=== PATIENT | female | born 1945 | race Caucasian/White ===

== ENCOUNTER 2017-06-01 14:30 | Inpatient (IN) | payer MEDICARE, SELFPAY ==
[2017-06-01] VITALS (13 sets, daily range): BP systolic 104–160; BP diastolic 43–88; PULSE 81–105; RESP 20–30; TEMP 37.6; O2SAT 92–96; BMI 53.1; BMI 53.3
--- NOTE | 2017-06-01 15:00 | RAD_ITS ---
STUDY: X-RAY CHEST REASON FOR EXAM: Female, 71 years old. Shortness of breath and cough TECHNIQUE: Single AP portable view of the chest. COMPARISON: None. FINDINGS: EKG leads overlie the chest. There are interstitial fibrotic changes of the lungs. There is no demonstrated pleural abnormality. Normal size heart. Normal mediastinum and tanna. Normal visualized pulmonary arteries. There is atherosclerotic calcification of the aortic arch with tortuosity. There are diffuse degenerative changes of the visualized thoracic spine. Normal visualized ribs, clavicles, and shoulders. There is no demonstrated abnormality of the visualized soft tissue structures of the upper abdomen. RAD/Chest 1 View (Portable) IMPRESSION: Degenerative changes, as described above. No demonstrated acute cardiopulmonary process. Electronically Signed: Yong Ordonez MD at 15:25 EST , Service support ,
--- NOTE | 2017-06-01 15:01 | EKG12_ITS ---
Test Reason : SOB Blood Pressure : / mmHG Vent. Rate : 096 BPM Atrial Rate : 100 BPM P-R Int : 158 ms QRS Dur : 070 ms QT Int : 342 ms P-R-T Axes : 078 000 087 degrees QTc Int : 432 ms Normal sinus rhythm with sinus arrhythmia Normal ECG Confirmed by JACLYN RIVERA, KATIE ([id number]), fan mail editor SAIRA WHITMORE ([id number]) on 06/08/2017 3:51:45 PM Referred By: Confirmed By:KATIE ANAYA MD
[2017-06-01] MEDS: Albuterol 2.5 MG/3 ML VIAL.NEB. INHALATION ×3 (15:08→17:15)
[2017-06-01] MEDS: Ipratropium/Albuterol Sulfate 3 ML AMPUL.NEB INHALATION ×2 (15:09→23:54)
--- NOTE | 2017-06-01 15:11 | ED.RN ---
PT PLACED ON DROPLET PRECAUTIONS UNTIL RESULTS OF FLU SWAB
[2017-06-01] MEDS: Acetaminophen 325 MG Tablet 650 MG PO ×2 (15:26→23:48)
[2017-06-01] MEDS: 0.9% Normal Saline 1,000 ML 150 ML IV (15:27)
[2017-06-01] MEDS: MethylPREDNISolone 125 MG/2 ML Vial IV (15:27)
[2017-06-01 15:35] LABS: Absolute Lymphocyte Count 1.57 X10^3/ul (0.83-4.51); Absolute Neutrophil Count 7.2 X10^3/uL (2.0-7.7); Basophil# 0.02 X10^3/uL; Basophil% 0.2 % (0-1); Eosinophil# 0.03 X10^3/uL; Eosinophils% 0.3 % (0-5); Hematocrit 40.7 % (37-47); Hemoglobin 13.2 g/dl (12.0-15.0); Lymphocyte # 1.57 X10^3/ul (4.0); Mean Corp Hgb Conc 32.4 g/gl (32-36); Mean Corpuscular Volume 89.5 fL (81-99); Mean Platelet Vol. 10.2 fl (6.2-12.0); Monocyte% 10.2 % (0-10); Neutrophil # 7.15 X10^3/uL (2.7-7.7); Neutrophil % 73.1 % (47-70); Platelet Count 147 K/mm3 (150-450); RBC Distribution Width CV 13.8 % (11.6-14.6); RBC Distribution Width SD 45.2 fl (35.1-43.9); Red Blood Count 4.55 M/mm3 (4.2-5.4); White Blood Count 9.8 K/mm3 (4.4-11.0)
[2017-06-01 15:45] LABS: POSITIVE COUNT NO; POSITIVE DIFFERENTIAL NO; POSITIVE MORPHOLOGY NO
[2017-06-01 15:49] LABS: Anion Gap 6 (5-15); BUN 11 mg/dL (7-18); BUN/Creat Ratio 15.6 RATIO (10-20); Calcium,Total 8.9 mg/dL (8.5-10.1); Chloride 102 mmol/L (98-107); EST Glomerular Filtration Rate 87 mL/min (>60); Est Glom Filt Rate - Afr Amer 105 mL/min (>60); Glucose 152 mg/dL (70-110); Potassium 3.9 mmol/L (3.5-5.1); Sodium Level 136 mmol/L (136-145)
--- NOTE | 2017-06-01 15:55 | ED.RN ---
POSITIVE FOR INFLUENZA A PER LAB. NOTIFIED.
[2017-06-01] MEDS: Oseltamivir Phosphate 75 MG Capsule PO (16:28)
--- NOTE | 2017-06-01 17:28 | ED.DCSUM_ITS ---
- ER Visit Summary Date of Service: 06/01/17 Chief Complaint: Shortness of breath, body aches, cough History of Present Illness: The patient is a 71 F reports onset of the above symptoms yesterday. She reports subjective fever. States she has not bothered to get out of bed to check her temperature. Patient does have a history of asthma and feels that her breathing is worse. Physical Examination: Blood pressure is 136/88, temperature 99.6, heart rate 101 , respiratory rate 26, pulse ox 92% on 2 L nasal cannula. Patient sitting upright in bed, appears ill. Head and neck examination is grossly unremarkable. Heart is tachycardic and regular. Lung sounds with tight wheezing throughout. Abdomen is soft and nontender. Lower extent examination was 2+ bilateral edema that is symmetric. She has strong distal pulses. Patient is alert and able to speak in short sentences. Test Results: EKG is sinus at 96 with no sign of acute ischemia. Portable chest x-ray reveals degenerative changes but no acute pulmonary process. CBC reveals normal white count. Chemistry studies are unremarkable. Lactate is normal. Blood cultures were drawn. Influenza returns positive for influenza A. Emergency Department Course and Treatment: She was given Solu-Medrol, aerosols, and Tylenol. Upon completion of the flu swab she was given a dose of Tamiflu. On repeat examination she has improved air movement throughout, but still has significant wheezing. Additional aerosol is ordered and hospitalist is paged for admission. Treatment Plan: [] Disposition: Admit Impression: 1. Influenza A 2. Asthma exacerbation This note was generated with [employer] dictation software. It may contain incorrect words, spelling, and punctuation that were not noted in review of the chart prior to signing ED Disposition - Plan for ED Patient: Chief Complaint: Shortness of Breath Referrals: Senait Jay MD [Primary Care Provider] -
--- NOTE | 2017-06-01 18:57 | PCM.HP.STD ---
Problem List (1) Influenza Status: Acute (2) Acute asthma exacerbation Status: Acute (3) Celiac disease Status: Chronic (4) Asthma Status: Chronic Qualifiers: Asthma complication type: uncomplicated (5) Cellulitis of right breast Status: Acute (6) BMI 50.0-59.9, adult Status: Chronic (7) History of right breast cancer Status: Chronic (8) Sleep apnea Status: Acute History of Present Illness Date of Admission: 06/01/17 Chief Complaint: shortness of breath. The patient is a 71 year old F presents with shortness of breath and chills for 1 day. Began late [place] early morning. Patient was just chilling. Presented to the emergency room with tachypnea. Patient was put on breathing treatments. She received Solu-Medrol, aerosols. Patient tested positive for flu Wednesday and received Tamiflu. Patient is feeling somewhat better at this time. [] Past Medical History Past Medical History (Chronic Problems): Chronic Problems Celiac disease (Chronic) Asthma (Chronic) BMI 50.0-59.9, adult (Chronic) History of right breast cancer (Chronic) Allergies adhesive tape Allergy (Verified 06/01/17 16:48) Unknown listed on pcp allergy list mesalamine [From Asacol] Allergy (Verified 06/01/17 16:48) Unknown listed on pcp allergy list omalizumab [From Xolair] Allergy (Verified 06/01/17 16:48) Unknown listed on pcp allergy list Sulfa (Sulfonamide Antibiotics) Allergy (Verified 11/14/16 11:33) Unknown duracef Allergy (Uncoded 06/01/17 16:48) Unknown listed on pcp allergy list Home Medications: Ambulatory Orders Medication Instructions Recorded Budesonide [Rhinocort Allergy] 2 spray NS DAILY 06/01/17 Calcium (Elemental) [Os-Lance 500] 500 mg PO DAILY@0800 06/01/17 Cholecalciferol (Vitamin D3) 50,000 unit PO SUWE 06/01/17 [Vitamin D] Dicyclomine HCl [Bentyl] 10 mg PO BID PRN PRN 06/01/17 Insulin Regular, Human [Humulin R 85 unit SQ BID 06/01/17 U-500 Kwikpen] Lansoprazole [Prevacid] 30 mg PO BID 06/01/17 Levocetirizine Dihydrochloride 5 mg PO DAILY 06/01/17 [Xyzal] Methylphenidate HCl 20 mg PO BID 06/01/17 [Methylphenidate ER] Mometasone/Formoterol [Dulera 200 2 puff INHALATION BID 06/01/17 Mcg/5 Mcg Inhaler] Montelukast [Singulair] 10 mg PO DAILY 06/01/17 Multivit-Min/Iron/Folic/Lutein 1 each PO DAILY 06/01/17 [Centrum Silver Women Tablet] Nadolol 1 tab PO BID 06/01/17 Nystatin Powder [Mycostatin Powder] 1 applic TOPICAL 4X/DAY PRN 06/01/17 Ondansetron [Zofran Odt] 4 mg PO Q6H PRN PRN 06/01/17 Paroxetine HCl [Paxil] 40 mg PO DAILY 06/01/17 Pramipexole Di-HCl [Mirapex] 0.5 mg PO QHS 06/01/17 Surgical History: - - Rectocele Smoking Status: Never smoker - *Family History Paternal History Items: No pertinent history, - - No heart disease Review of Systems Constitutional: Reports: Chills. Denies: Fever Eyes: Denies: Blurred vision, Double vision HEENT: Denies: Head Aches, Sinus Congestion, Sinus Drainage Cardiovascular: Denies: Chest Pain, Palpitations Respiratory: Denies: Cough, Shortness of breath at rest, Sputum production Gastrointestinal: Denies: Abdominal Pain, Nausea, Vomiting Genitourinary: Denies: Dysuria Musculoskeletal: Denies: Joint Pain, Joint Tenderness Skin: Denies: Rash, Wounds Neurological: Denies: Numbness, Tingling, Focal weakness Psychiatric: Denies: Anxiety, Depression, Homicidal Ideations, Suicidal Ideations Hematologic/ Lymphatic: Denies: Easy Bruising, Easy Bleeding VTE Information - Inpt Only VTE Present on Admission: No VTE Pharm Prophylaxis ordered?: Yes Patient Problems: Active and Suspected Problems Influenza (Acute) Acute asthma exacerbation (Acute) - Physical Exam General: Alert, Cooperative, No apparent distress HEENT: Atraumatic, Normocephalic Neck: No Nodes, Thyroid Normal Size and Texture Lungs: Clear to auscultation, No rhonchi, No wheeze, Diminished Cardiovascular: Regular rate, Regular Rhythm, Normal S1, Normal S2, No murmurs Abdomen: Bowel Sounds Present, Soft, Non Tender, Non-Distended, No Hepato-splenomegaly Extremities: No edema, No Calf Tenderness Skin: No rashes, No breakdown Psych/Mental Status: Normal Affect, Appropriate Vital Signs Temp Pulse Resp BP Pulse Ox 37.6 C H 83 22 H 110/79 94 06/01/17 16:30 06/01/17 18:12 06/01/17 18:12 06/01/17 18:12 06/01/17 18:12 Oxygen Flow Rate 2 Oxygen Delivery Method Nasal Cannula Weight: 136.078 kg Body Mass Index (BMI) 53.1 Microbiology Past 72 Hours 06/01/17 15:10 Influenza Types A,B Direct FA (RODRIGO) - Final Mucosa - Nose Influenzae A Laboratory Tests Past 24 Hrs 06/01/17 06/01/17 06/01/17 14:45 14:45 14:45 WBC 9.8 RBC 4.55 Hgb 13.2 Hct 40.7 MCV 89.5 MCH 29.0 MCHC 32.4 RDW 13.8 RDW Differential 45.2 H Plt Count 147 L MPV 10.2 Immature Gran % (Auto) 0.200 Neut % (Auto) 73.1 H Lymph % (Auto) 16.0 L [place] % (Auto) 10.2 H Eos % (Auto) 0.3 Baso % (Auto) 0.2 Absolute Neuts (auto) 7.2 Absolute Lymphs (auto) 1.57 Total Counted Not Reportable Sodium 136 Potassium 3.9 Chloride 102 Carbon Dioxide 28.0 Anion Gap 6 BUN 11 Creatinine 0.70 Estim Creat Clear Calc 43.30 Est GFR (MDRD) Af Amer 105 Est GFR (MDRD) Non-Af 87 BUN/Creatinine Ratio 15.6 Glucose 152 H Lactic Acid 1.0 Calcium 8.9 Assessment/Plan Active and Suspected Problems Influenza (Acute) Acute asthma exacerbation (Acute) 1. Influenza A Tamiflu. Continue Tamiflu for 5 days. Supportive management 2. Acute asthma exacerbation Site measured on the emergency room. I will have the patient on prednisone. Bronchodilators 3. DVT prophylaxis with Lovenox This note was generated with [email or web address] dictation software. It may contain incorrect words, spelling, and punctuation that were not noted in checking the note before signing. Code Visit Inpatient E&M: 99829 Init Hosp L2
[2017-06-01 22:54] LABS: Bedside Glucose 365 mg/dL (70-110)
[2017-06-01] MEDS: Methylphenidate HCl 5 MG Tablet 20 MG PO (23:40)
[2017-06-01] MEDS: Oseltamivir Phosphate 30 MG Capsule PO (23:44)
[2017-06-01] MEDS: Pantoprazole Sodium 40 MG Tablet PO (23:45)
[2017-06-01] MEDS: Pramipexole Di-HCl 0.5 MG Tablet PO (23:45)
[2017-06-02] VITALS (10 sets, daily range): BP systolic 137–159; BP diastolic 57–77; PULSE 61–83; RESP 16–24; TEMP 36.4–36.7; O2SAT 93–99
[2017-06-02 01:46] LABS: Bedside Glucose 340 mg/dL (70-110)
[2017-06-02 06:14] LABS: Absolute Lymphocyte Count 0.99 X10^3/ul (0.83-4.51); Absolute Neutrophil Count 7.7 X10^3/uL (2.0-7.7); Basophil# 0.01 X10^3/uL; Basophil% 0.1 % (0-1); Hematocrit 38.2 % (37-47); Hemoglobin 12.8 g/dl (12.0-15.0); Lymphocyte # 0.99 X10^3/ul (4.0); Lymphocyte % 10.7 % (19-41); Mean Corp Hgb Conc 33.5 g/gl (32-36); Mean Corpuscular Hgb 29.8 pg (27.0-32.0); Mean Corpuscular Volume 88.8 fL (81-99); Mean Platelet Vol. 10.4 fl (6.2-12.0); Monocyte# 0.54 X10^3/uL; Monocyte% 5.8 % (0-10); Neutrophil % 83.3 % (47-70); Platelet Count 128 K/mm3 (150-450); RBC Distribution Width CV 13.7 % (11.6-14.6); RBC Distribution Width SD 43.9 fl (35.1-43.9); White Blood Count 9.3 K/mm3 (4.4-11.0)
[2017-06-02 06:22] LABS: POSITIVE COUNT NO; POSITIVE DIFFERENTIAL NO; POSITIVE MORPHOLOGY NO
[2017-06-02] MEDS: 0.9% Normal Saline 1,000 ML 50 ML IV (06:39)
[2017-06-02 06:43] LABS: Anion Gap 7 (5-15); BUN 16 mg/dL (7-18); BUN/Creat Ratio 24.4 RATIO (10-20); Calcium,Total 8.4 mg/dL (8.5-10.1); Chloride 102 mmol/L (98-107); Creatinine, Serum 0.66 mg/dL (0.55-1.02); EST Glomerular Filtration Rate 95 mL/min (>60); Est Glom Filt Rate - Afr Amer 114 mL/min (>60); Glucose 292 mg/dL (70-110); Potassium 4.1 mmol/L (3.5-5.1); Sodium Level 135 mmol/L (136-145)
[2017-06-02 07:01] LABS: Bedside Glucose 306 mg/dL (70-110)
[2017-06-02] MEDS: Ipratropium/Albuterol Sulfate 3 ML AMPUL.NEB INHALATION ×4 (07:03→23:11)
[2017-06-02] MEDS: Budesonide Respules 0.5 MG/2 ML AMPUL.NEB. INHALATION ×2 (07:04→19:56)
--- NOTE | 2017-06-02 08:22 | NURSING ---
Call to Dr. Jya's office and most up to date medication list requested.
[2017-06-02] MEDS: Glucerna Shake 120 ML LIQUID PO (09:26)
[2017-06-02] MEDS: Oseltamivir Phosphate 30 MG Capsule PO ×2 (09:27→21:50)
[2017-06-02] MEDS: Pantoprazole Sodium 40 MG Tablet PO ×2 (09:27→21:50)
[2017-06-02] MEDS: Methylphenidate HCl 5 MG Tablet 20 MG PO (09:27)
[2017-06-02] MEDS: Montelukast 10 MG Tablet PO (09:27)
[2017-06-02] MEDS: Loratadine 10 MG Tablet 5 MG PO (09:27)
[2017-06-02] MEDS: Enoxaparin 40 MG/0.4 ML Syringe SC (09:28)
[2017-06-02] MEDS: Multivitamins,Ther W-Minerals Tablet 1 TABLET PO (09:28)
[2017-06-02] MEDS: Calcium (Elemental) 500 MG Tablet PO (09:28)
[2017-06-02] MEDS: Nadolol 40 MG Tablet PO (11:30)
[2017-06-02 11:40] LABS: Bedside Glucose 288 mg/dL (70-110)
--- NOTE | 2017-06-02 14:18 | PCM.PN.HOSP ---
Patient Problems: Active and Suspected Problems Influenza (Acute) Acute asthma exacerbation (Acute) Subjective: Patient had symptoms of shortness of breath, fever and chills since late and got worse 06/01. Patient was also tachypneic and diagnosed influenza B. T-max was 99.6 Fahrenheit yesterday evening Vitals/I&O's: Vital Signs Temp Pulse Resp BP Pulse Ox 98.0 F 77 16 137/61 H 96 06/02/17 09:25 06/02/17 14:07 06/02/17 14:07 06/02/17 09:25 06/02/17 09:25 Oxygen Flow Rate 2.5 Oxygen Delivery Method Nasal Cannula Weight: 301 lb 3.199 oz Body Mass Index (BMI) 53.3 Intake and Output for Last 24 Hours 05/31/17 06/01/17 06/02/17 23:59 23:59 23:59 Intake Total 200 / 200 2891 / 2891 Output Total 400 / 400 650 / 650 Balance -200 / -200 2241 / 2241 General: Alert, Oriented x3, Cooperative HEENT: Atraumatic, PERRLA, EOMI, Normocephalic Oral: Dry Mucosa, - - Edema and inflammation noticed over deep soft palate and posterior pharyngeal wall Neck: Supple, No JVD, Negative Carotid Bruits Lungs: Clear to auscultation, No rhonchi, No wheeze, No rales, Diminished Cardiovascular: Regular rate, Regular Rhythm, Normal S1, No murmurs Abdomen: Bowel Sounds Present, Soft, Non Tender, Non-Distended Extremities: No edema, Capillary Refill Less than 3 Seconds Skin: No rashes, No breakdown Musculoskeletal: No Tenderness to Palpation of Joints or Extremities Neurological: Cranial nerves II-XII grossly intact Psych/Mental Status: Normal Affect, Appropriate Laboratory Results 06/01/17 21:13: POC Glucose 365 H 06/02/17 01:20: POC Glucose 340 H 06/02/17 05:26: WBC 9.3, RBC 4.30, Hgb 12.8, Hct 38.2, MCV 88.8, MCH 29.8, MCHC 33.5, RDW 13.7, RDW Differential 43.9, Plt Count 128 L, MPV 10.4, Immature Gran % (Auto) 0.100, Neut % (Auto) 83.3 H, Lymph % (Auto) 10.7 L, [place] % (Auto) 5.8, Eos % (Auto) 0.0, Baso % (Auto) 0.1, Absolute Neuts (auto) 7.7, Absolute Lymphs (auto) 0.99, Total Counted Not Reportable 06/02/17 05:26: Sodium 135 L, Potassium 4.1, Chloride 102, Carbon Dioxide 26.0, Anion Gap 7, BUN 16, Creatinine 0.66, Estim Creat Clear Calc 43.30, Est GFR (MDRD) Af Amer 114, Est GFR (MDRD) Non-Af 95, BUN/Creatinine Ratio 24.4 H, Glucose 292 H, Calcium 8.4 L 06/02/17 06:33: POC Glucose 306 H 06/02/17 11:28: POC Glucose 288 H Current Medications Acetaminophen (Tylenol) 650 mg PO Q6H PRN PRN PRN Reason: Mild Pain (scale 0-3)/T>100.7 Last Admin: 06/01/17 23:48 Dose: 650 mg Albuterol Sulfate (Ventolin Aerosols) 2.5 mg INHALATION Q2H PRN PRN PRN Reason: SHORTNESS OF BREATH Albuterol Sulfate (Ventolin Aerosols) 2.5 mg INHALATION Q6HWA.RT [facility] Albuterol/Ipratropium (Duoneb) 3 ml INHALATION Q4H.RT [facility] Last Admin: 06/02/17 14:06 Dose: 3 ml Budesonide (Pulmicort Aerosol) 0.5 mg INHALATION Q12H.RT [facility] Last Admin: 06/02/17 07:04 Dose: 0.5 mg Calcium Carbonate (Os-Lance 500) 500 mg PO DAILY@0800 [facility] Last Admin: 06/02/17 09:28 Dose: 500 mg Dicyclomine HCl (Bentyl) 10 mg PO BID PRN PRN PRN Reason: ABD CRAMPS Enoxaparin Sodium (Lovenox) 40 mg SC DAILY@1000 [facility] Last Admin: 06/02/17 09:28 Dose: 40 mg Ergocalciferol (Vitamin D) 50,000 unit PO SUWE [facility] Last Admin: 06/02/17 09:28 Dose: 50,000 unit Fluticasone Propionate (Flonase Nasal [place]) 2 spray NASAL DAILY [facility] Last Admin: 06/02/17 11:24 Dose: Not Given Sodium Chloride () 1,000 mls @ 50 mls/hr IV .Q20H [facility] Stop: 06/02/17 16:24 Last Admin: 06/02/17 06:39 Dose: 50 mls/hr Insulin Aspart (Novolog Flexpen ([facility])) 0 units SC ACHS [facility] PRN Reason: Protocol Last Admin: 06/02/17 11:30 Dose: 9 units Insulin Detemir (Levemir ([facility])) 10 units SC BID [facility] Last Admin: 06/02/17 11:30 Dose: 10 u Insulin Human Regular (Humulin R U-500 ([facility])) 0.17 ml SC BIDAC [facility] Loratadine (Claritin) 5 mg PO DAILY [facility] Last Admin: 06/02/17 09:27 Dose: 5 mg Magnesium Hydroxide (Milk Of Magnesia) 30 ml PO DAILY PRN PRN PRN Reason: Constipation Methylphenidate HCl (Ritalin (G)) 20 mg PO BID [facility] Last Admin: 06/02/17 09:27 Dose: 20 mg Montelukast Sodium (Singulair) 10 mg PO DAILY [facility] Last Admin: 06/02/17 09:27 Dose: 10 mg Multivitamins/Minerals (Multivitamin With Minerals) 1 tablet PO DAILY@0800 [facility] Last Admin: 06/02/17 09:28 Dose: 1 tablet Nadolol (Corgard) 40 - 80 mg PO DAILY [facility] Last Admin: 06/02/17 11:30 Dose: 40 mg Nystatin (Mycostatin Powder) 1 applic TOPICAL 4X/DAY PRN; Protocol PRN Reason: YEAST Ondansetron HCl (Zofran Odt) 4 mg PO Q6H PRN PRN PRN Reason: NAUSEA Ondansetron HCl (Zofran) 4 mg IV Q8H PRN PRN PRN Reason: Nausea Oseltamivir Phosphate (Tamiflu) 30 mg PO BID [facility] Stop: 06/06/17 10:01 Last Admin: 06/02/17 09:27 Dose: 30 mg Pantoprazole Sodium (Protonix) 40 mg PO BID [facility] Last Admin: 06/02/17 09:27 Dose: 40 mg Paroxetine HCl (Paxil) 40 mg PO DAILY [facility] Last Admin: 06/02/17 09:28 Dose: 40 mg Pramipexole Dihydrochloride (Mirapex) 0.5 mg PO QHS [facility] Last Admin: 06/01/17 23:45 Dose: 0.5 mg Prednisone (Prednisone) 40 mg PO DAILY@0800 [facility] Last Admin: 06/02/17 09:27 Dose: 40 mg Sodium Chloride () 5 - 30 ml IV UD PRN PRN Reason: SALINE FLUSH Assessment/Plan Active and Suspected Problems Influenza (Acute) Acute asthma exacerbation (Acute) The patient is a 71 year old F presents with shortness of breath and chills for 1 day. Began late e early . Patient was just chilling. Presented to the emergency room with tachypnea. Patient was put on breathing treatments. She received Solu-Medrol, aerosols. Patient tested positive for flu Wednesday and received Tamiflu. Patient is feeling somewhat better at this time. 1. SIRS (FEVER, tachycardia, tachypnea and hypoxia) due to acute bronchitis and subsequent asthma exacerbation Secondary to influenza A viral bronchitis Tamiflu. Continue Tamiflu for a total of 5 days. Supportive management IV fluid, pain and fever control as needed. 2. Acute asthma exacerbation with acute hypoxic respiratory failure Site measured on the emergency room. On Bronchodilator. on prednisone. Patient is to 2-3 L of oxygen per minute titrate to keep pulse ox more than 90% . 3. DVT prophylaxis with Lovenox This note was generated with [employer] dictation software. It may contain incorrect words, spelling, and punctuation that were not noted in checking the note before signing. Microbiology 06/01/17 15:10 Mucosa - Nose Influenza Types A,B Direct FA (RODRIGO) - Final Influenzae A Laboratory Results 06/01/17 14:45: WBC 9.8, RBC 4.55, Hgb 13.2, Hct 40.7, MCV 89.5, MCH 29.0, MCHC 32.4, RDW 13.8, RDW Differential 45.2 H, Plt Count 147 L, MPV 10.2, Immature Gran % (Auto) 0.200, Neut % (Auto) 73.1 H, Lymph % (Auto) 16.0 L, [place] % (Auto) 10.2 H, Eos % (Auto) 0.3, Baso % (Auto) 0.2, Absolute Neuts (auto) 7.2, Absolute Lymphs (auto) 1.57, Total Counted Not Reportable 06/01/17 14:45: Sodium 136, Potassium 3.9, Chloride 102, Carbon Dioxide 28.0, Anion Gap 6, BUN 11, Creatinine 0.70, Estim Creat Clear Calc 43.30, Est GFR (MDRD) Af Amer 105, Est GFR (MDRD) Non-Af 87, BUN/Creatinine Ratio 15.6, Glucose 152 H, Calcium 8.9 06/01/17 14:45: Lactic Acid 1.0 06/01/17 21:13: POC Glucose 365 H 06/02/17 01:20: POC Glucose 340 H 06/02/17 05:26: WBC 9.3, RBC 4.30, Hgb 12.8, Hct 38.2, MCV 88.8, MCH 29.8, MCHC 33.5, RDW 13.7, RDW Differential 43.9, Plt Count 128 L, MPV 10.4, Immature Gran % (Auto) 0.100, Neut % (Auto) 83.3 H, Lymph % (Auto) 10.7 L, [place] % (Auto) 5.8, Eos % (Auto) 0.0, Baso % (Auto) 0.1, Absolute Neuts (auto) 7.7, Absolute Lymphs (auto) 0.99, Total Counted Not Reportable 06/02/17 05:26: Sodium 135 L, Potassium 4.1, Chloride 102, Carbon Dioxide 26.0, Anion Gap 7, BUN 16, Creatinine 0.66, Estim Creat Clear Calc 43.30, Est GFR (MDRD) Af Amer 114, Est GFR (MDRD) Non-Af 95, BUN/Creatinine Ratio 24.4 H, Glucose 292 H, Calcium 8.4 L 06/02/17 06:33: POC Glucose 306 H 06/02/17 11:28: POC Glucose 288 H Code Visit Inpatient E&M: 84427 Subs Hosp L2
--- NOTE | 2017-06-02 14:29 | PN_ITS ---
Patient Problems: Active and Suspected Problems Influenza (Acute) Acute asthma exacerbation (Acute) Subjective: Patient had symptoms of shortness of breath, fever and chills since late and got worse 06/01. Patient was also tachypneic and diagnosed influenza B. T-max was 99.6 Fahrenheit yesterday evening Vitals/I&O's: Vital Signs Temp Pulse Resp BP Pulse Ox 98.0 F 77 16 137/61 H 96 06/02/17 09:25 06/02/17 14:07 06/02/17 14:07 06/02/17 09:25 06/02/17 09:25 Oxygen Flow Rate 2.5 Oxygen Delivery Method Nasal Cannula Weight: 301 lb 3.199 oz Body Mass Index (BMI) 53.3 Intake and Output for Last 24 Hours 05/31/17 06/01/17 06/02/17 23:59 23:59 23:59 Intake Total 200 / 200 2891 / 2891 Output Total 400 / 400 650 / 650 Balance -200 / -200 2241 / 2241 General: Alert, Oriented x3, Cooperative HEENT: Atraumatic, PERRLA, EOMI, Normocephalic Oral: Dry Mucosa, - - Edema and inflammation noticed over deep soft palate and posterior pharyngeal wall Neck: Supple, No JVD, Negative Carotid Bruits Lungs: Clear to auscultation, No rhonchi, No wheeze, No rales, Diminished Cardiovascular: Regular rate, Regular Rhythm, Normal S1, No murmurs Abdomen: Bowel Sounds Present, Soft, Non Tender, Non-Distended Extremities: No edema, Capillary Refill Less than 3 Seconds Skin: No rashes, No breakdown Musculoskeletal: No Tenderness to Palpation of Joints or Extremities Neurological: Cranial nerves II-XII grossly intact Psych/Mental Status: Normal Affect, Appropriate Laboratory Results 06/01/17 21:13: POC Glucose 365 H 06/02/17 01:20: POC Glucose 340 H 06/02/17 05:26: WBC 9.3, RBC 4.30, Hgb 12.8, Hct 38.2, MCV 88.8, MCH 29.8, MCHC 33.5, RDW 13.7, RDW Differential 43.9, Plt Count 128 L, MPV 10.4, Immature Gran % (Auto) 0.100, Neut % (Auto) 83.3 H, Lymph % (Auto) 10.7 L, [place] % (Auto) 5.8, Eos % (Auto) 0.0, Baso % (Auto) 0.1, Absolute Neuts (auto) 7.7, Absolute Lymphs (auto) 0.99, Total Counted Not Reportable 06/02/17 05:26: Sodium 135 L, Potassium 4.1, Chloride 102, Carbon Dioxide 26.0, Anion Gap 7, BUN 16, Creatinine 0.66, Estim Creat Clear Calc 43.30, Est GFR ( MDRD) Af Amer 114, Est GFR (MDRD) Non-Af 95, BUN/Creatinine Ratio 24.4 H, Glucose 292 H, Calcium 8.4 L 06/02/17 06:33: POC Glucose 306 H 06/02/17 11:28: POC Glucose 288 H Current Medications Acetaminophen (Tylenol) 650 mg PO Q6H PRN PRN PRN Reason: Mild Pain (scale 0-3)/T>100.7 Last Admin: 06/01/17 23:48 Dose: 650 mg Albuterol Sulfate (Ventolin Aerosols) 2.5 mg INHALATION Q2H PRN PRN PRN Reason: SHORTNESS OF BREATH Albuterol Sulfate (Ventolin Aerosols) 2.5 mg INHALATION Q6HWA.RT [facility] Albuterol/Ipratropium (Duoneb) 3 ml INHALATION Q4H.RT [facility] Last Admin: 06/02/17 14:06 Dose: 3 ml Budesonide (Pulmicort Aerosol) 0.5 mg INHALATION Q12H.RT [facility] Last Admin: 06/02/17 07:04 Dose: 0.5 mg Calcium Carbonate (Os-Lance 500) 500 mg PO DAILY@0800 [facility] Last Admin: 06/02/17 09:28 Dose: 500 mg Dicyclomine HCl (Bentyl) 10 mg PO BID PRN PRN PRN Reason: ABD CRAMPS Enoxaparin Sodium (Lovenox) 40 mg SC DAILY@1000 [facility] Last Admin: 06/02/17 09:28 Dose: 40 mg Ergocalciferol (Vitamin D) 50,000 unit PO SUWE [facility] Last Admin: 06/02/17 09:28 Dose: 50,000 unit Fluticasone Propionate (Flonase Nasal [place]) 2 spray NASAL DAILY [facility] Last Admin: 06/02/17 11:24 Dose: Not Given Sodium Chloride () 1,000 mls @ 50 mls/hr IV .Q20H [facility] Stop: 06/02/17 16:24 Last Admin: 06/02/17 06:39 Dose: 50 mls/hr Insulin Aspart (Novolog Flexpen ([facility])) 0 units SC ACHS [facility] PRN Reason: Protocol Last Admin: 06/02/17 11:30 Dose: 9 units Insulin Detemir (Levemir ([facility])) 10 units SC BID [facility] Last Admin: 06/02/17 11:30 Dose: 10 u Insulin Human Regular (Humulin R U-500 ([facility])) 0.17 ml SC BIDAC [facility] Loratadine (Claritin) 5 mg PO DAILY [facility] Last Admin: 06/02/17 09:27 Dose: 5 mg Magnesium Hydroxide (Milk Of Magnesia) 30 ml PO DAILY PRN PRN PRN Reason: Constipation Methylphenidate HCl (Ritalin (G)) 20 mg PO BID [facility] Last Admin: 06/02/17 09:27 Dose: 20 mg Montelukast Sodium (Singulair) 10 mg PO DAILY [facility] Last Admin: 06/02/17 09:27 Dose: 10 mg Multivitamins/Minerals (Multivitamin With Minerals) 1 tablet PO DAILY@0800 [facility] Last Admin: 06/02/17 09:28 Dose: 1 tablet Nadolol (Corgard) 40 - 80 mg PO DAILY [facility] Last Admin: 06/02/17 11:30 Dose: 40 mg Nystatin (Mycostatin Powder) 1 applic TOPICAL 4X/DAY PRN; Protocol PRN Reason: YEAST Ondansetron HCl (Zofran Odt) 4 mg PO Q6H PRN PRN PRN Reason: NAUSEA Ondansetron HCl (Zofran) 4 mg IV Q8H PRN PRN PRN Reason: Nausea Oseltamivir Phosphate (Tamiflu) 30 mg PO BID [facility] Stop: 06/06/17 10:01 Last Admin: 06/02/17 09:27 Dose: 30 mg Pantoprazole Sodium (Protonix) 40 mg PO BID [facility] Last Admin: 06/02/17 09:27 Dose: 40 mg Paroxetine HCl (Paxil) 40 mg PO DAILY [facility] Last Admin: 06/02/17 09:28 Dose: 40 mg Pramipexole Dihydrochloride (Mirapex) 0.5 mg PO QHS [facility] Last Admin: 06/01/17 23:45 Dose: 0.5 mg Prednisone (Prednisone) 40 mg PO DAILY@0800 [facility] Last Admin: 06/02/17 09:27 Dose: 40 mg Sodium Chloride () 5 - 30 ml IV UD PRN PRN Reason: SALINE FLUSH Assessment/Plan Active and Suspected Problems Influenza (Acute) Acute asthma exacerbation (Acute) The patient is a 71 year old F presents with shortness of breath and chills for 1 day. Began late e early . Patient was just chilling. Presented to the emergency room with tachypnea. Patient was put on breathing treatments. She received Solu-Medrol, aerosols. Patient tested positive for flu Wednesday and received Tamiflu. Patient is feeling somewhat better at this time. 1. SIRS (FEVER, tachycardia, tachypnea and hypoxia) due to acute bronchitis and subsequent asthma exacerbation Secondary to influenza A viral bronchitis Tamiflu. Continue Tamiflu for a total of 5 days. Supportive management IV fluid, pain and fever control as needed. 2. Acute asthma exacerbation with acute hypoxic respiratory failure Site measured on the emergency room. On Bronchodilator. on prednisone. Patient is to 2-3 L of oxygen per minute titrate to keep pulse ox more than 90% . 3. DVT prophylaxis with Lovenox This note was generated with [employer] dictation software. It may contain incorrect words, spelling, and punctuation that were not noted in checking the note before signing. Microbiology 06/01/17 15:10 Mucosa - Nose Influenza Types A,B Direct FA (RODRIGO) - Final Influenzae A Laboratory Results 06/01/17 14:45: WBC 9.8, RBC 4.55, Hgb 13.2, Hct 40.7, MCV 89.5, MCH 29.0, MCHC 32.4, RDW 13.8, RDW Differential 45.2 H, Plt Count 147 L, MPV 10.2, Immature Gran % (Auto) 0.200, Neut % (Auto) 73.1 H, Lymph % (Auto) 16.0 L, [place] % (Auto) 10.2 H, Eos % (Auto) 0.3, Baso % (Auto) 0.2, Absolute Neuts (auto) 7.2, Absolute Lymphs (auto) 1.57, Total Counted Not Reportable 06/01/17 14:45: Sodium 136, Potassium 3.9, Chloride 102, Carbon Dioxide 28.0, Anion Gap 6, BUN 11, Creatinine 0.70, Estim Creat Clear Calc 43.30, Est GFR ( MDRD) Af Amer 105, Est GFR (MDRD) Non-Af 87, BUN/Creatinine Ratio 15.6, Glucose 152 H, Calcium 8.9 06/01/17 14:45: Lactic Acid 1.0 06/01/17 21:13: POC Glucose 365 H 06/02/17 01:20: POC Glucose 340 H 06/02/17 05:26: WBC 9.3, RBC 4.30, Hgb 12.8, Hct 38.2, MCV 88.8, MCH 29.8, MCHC 33.5, RDW 13.7, RDW Differential 43.9, Plt Count 128 L, MPV 10.4, Immature Gran % (Auto) 0.100, Neut % (Auto) 83.3 H, Lymph % (Auto) 10.7 L, [place] % (Auto) 5.8, Eos % (Auto) 0.0, Baso % (Auto) 0.1, Absolute Neuts (auto) 7.7, Absolute Lymphs (auto) 0.99, Total Counted Not Reportable 06/02/17 05:26: Sodium 135 L, Potassium 4.1, Chloride 102, Carbon Dioxide 26.0, Anion Gap 7, BUN 16, Creatinine 0.66, Estim Creat Clear Calc 43.30, Est GFR ( MDRD) Af Amer 114, Est GFR (MDRD) Non-Af 95, BUN/Creatinine Ratio 24.4 H, Glucose 292 H, Calcium 8.4 L 06/02/17 06:33: POC Glucose 306 H 06/02/17 11:28: POC Glucose 288 H Code Visit Inpatient E&M: 98293 Subs Hosp L2
--- NOTE | 2017-06-02 15:39 | CASEMGMT ---
JASWINDER PLASCENCIA Face to Face with patient for initial transition planning/care coordination assessment. RN THAIS introduced self and role at [facility]. Patient sitting on edge of bed, alert and oriented. Patient willing to participate in assessment and is able to answer all questions appropriately. Care providers, pharmacy, and demographics verified. See link attached. Patient wishes to discharge home, denies need for home health at this time. Patient currently on oxygen and will monitor for need for home oxygen changes. Patient states she has no further needs or concerns at this time. CM to follow for discharge planning needs that may arise. Disposition Plan: Patient to discharge home with family support and follow-up plans in place.
[2017-06-02 17:01] LABS: Bedside Glucose 314 mg/dL (70-110)
[2017-06-02] MEDS: Albuterol 2.5 MG/3 ML VIAL.NEB. INHALATION (19:56)
[2017-06-02] MEDS: Pramipexole Di-HCl 0.5 MG Tablet PO (21:50)
[2017-06-02 22:37] LABS: Bedside Glucose 234 mg/dL (70-110)
[2017-06-03] VITALS (9 sets, daily range): BP systolic 139–159; BP diastolic 49–74; PULSE 62–72; RESP 16–22; TEMP 36.6–36.7; O2SAT 93–98
[2017-06-03] MEDS: Ipratropium/Albuterol Sulfate 3 ML AMPUL.NEB INHALATION ×6 (02:24→22:35)
[2017-06-03] MEDS: Budesonide Respules 0.5 MG/2 ML AMPUL.NEB. INHALATION (06:43)
[2017-06-03 07:36] LABS: Bedside Glucose 86 mg/dL (70-110)
[2017-06-03] MEDS: Nadolol 40 MG Tablet PO (08:02)
[2017-06-03] MEDS: Loratadine 10 MG Tablet 5 MG PO (08:03)
[2017-06-03] MEDS: Multivitamins,Ther W-Minerals Tablet 1 TABLET PO (08:03)
[2017-06-03] MEDS: Pantoprazole Sodium 40 MG Tablet PO ×2 (08:03→21:49)
[2017-06-03] MEDS: Enoxaparin 40 MG/0.4 ML Syringe SC (08:03)
[2017-06-03] MEDS: Fluticasone 0.05% 1 SPRAY NASAL.SRY 2 SPRAY NASAL (08:04)
[2017-06-03] MEDS: Montelukast 10 MG Tablet PO (08:06)
[2017-06-03] MEDS: Oseltamivir Phosphate 30 MG Capsule PO ×2 (08:06→21:49)
[2017-06-03] MEDS: Calcium (Elemental) 500 MG Tablet PO (11:13)
[2017-06-03] MEDS: Methylphenidate HCl 5 MG Tablet 20 MG PO (11:13)
[2017-06-03 11:26] LABS: Bedside Glucose 221 mg/dL (70-110)
[2017-06-03] MEDS: Acetaminophen 325 MG Tablet 650 MG PO (13:04)
--- NOTE | 2017-06-03 15:32 | PCM.PN.HOSP ---
Patient Problems: Active and Suspected Problems Influenza (Acute) Acute asthma exacerbation (Acute) Subjective: Patient gets easily short of breath even on conversation. Has history of asthma or possible asthmatic/COPD bronchitis. Vitals/I&O's: Vital Signs Temp Pulse Resp BP Pulse Ox 97.9 F 67 18 142/73 H 95 06/03/17 08:50 06/03/17 14:58 06/03/17 14:58 06/03/17 08:50 06/03/17 08:50 Oxygen Flow Rate 2 Oxygen Delivery Method Room Air Weight: 301 lb 3.199 oz Body Mass Index (BMI) 53.3 Intake and Output for Last 24 Hours 06/01/17 06/02/17 06/03/17 23:59 23:59 23:59 Intake Total 200 / 200 3191 / 3191 1000 / 1000 Output Total 400 / 400 650 / 650 Balance -200 / -200 2541 / 2541 1000 / 1000 General: Alert, Oriented x3, Cooperative HEENT: Atraumatic, PERRLA, EOMI, Normocephalic Neck: Supple, No JVD, Negative Carotid Bruits Lungs: Diminished, Short of Breath - On mild exertion, Wheezes Cardiovascular: Regular rate, Regular Rhythm, Normal S1, Normal S2, No murmurs Abdomen: Bowel Sounds Present, Soft, Non Tender, Non-Distended Extremities: No edema, Capillary Refill Less than 3 Seconds Skin: No rashes, No breakdown Musculoskeletal: No Tenderness to Palpation of Joints or Extremities Neurological: Cranial nerves II-XII grossly intact Psych/Mental Status: Normal Affect, Appropriate Laboratory Results 06/02/17 16:54: POC Glucose 314 H 06/02/17 21:51: POC Glucose 234 H 06/03/17 07:28: POC Glucose 86 06/03/17 11:11: POC Glucose 221 H Current Medications Acetaminophen (Tylenol) 650 mg PO Q6H PRN PRN PRN Reason: Mild Pain (scale 0-3)/T>100.7 Last Admin: 06/03/17 13:04 Dose: 650 mg Albuterol Sulfate (Ventolin Aerosols) 2.5 mg INHALATION Q2H PRN PRN PRN Reason: SHORTNESS OF BREATH Albuterol Sulfate (Ventolin Aerosols) 2.5 mg INHALATION Q6HWA.RT [facility] Last Admin: 06/02/17 19:56 Dose: 2.5 mg Albuterol/Ipratropium (Duoneb) 3 ml INHALATION Q4H.RT [facility] Last Admin: 06/03/17 14:58 Dose: 3 ml Budesonide (Pulmicort Aerosol) 0.5 mg INHALATION Q12H.RT [facility] Last Admin: 06/03/17 06:43 Dose: 0.5 mg Calcium Carbonate (Os-Lance 500) 500 mg PO DAILY@0800 [facility] Last Admin: 06/03/17 11:13 Dose: 500 mg Dicyclomine HCl (Bentyl) 10 mg PO BID PRN PRN PRN Reason: ABD CRAMPS Enoxaparin Sodium (Lovenox) 40 mg SC DAILY@1000 [facility] Last Admin: 06/03/17 08:03 Dose: 40 mg Ergocalciferol (Vitamin D) 50,000 unit PO SUWE [facility] Last Admin: 06/02/17 09:28 Dose: 50,000 unit Fluticasone Propionate (Flonase Nasal [employer]) 2 spray NASAL DAILY [facility] Last Admin: 06/03/17 08:04 Dose: 2 spray Insulin Aspart (Novolog Flexpen ([facility])) 0 units SC ACHS [facility] PRN Reason: Protocol Last Admin: 06/03/17 11:15 Dose: 6 units Insulin Detemir (Levemir ([facility])) 10 units SC BID [facility] Last Admin: 06/03/17 11:14 Dose: 10 u Insulin Human Regular (Humulin R U-500 ([facility])) 0.17 ml SC BIDAC [facility] Last Admin: 06/03/17 08:02 Dose: 0.17 ml Loratadine (Claritin) 5 mg PO DAILY [facility] Last Admin: 06/03/17 08:03 Dose: 5 mg Magnesium Hydroxide (Milk Of Magnesia) 30 ml PO DAILY PRN PRN PRN Reason: Constipation Methylphenidate HCl (Ritalin (G)) 20 mg PO BID [facility] Last Admin: 06/03/17 11:13 Dose: 20 mg Montelukast Sodium (Singulair) 10 mg PO DAILY [facility] Last Admin: 06/03/17 08:06 Dose: 10 mg Multivitamins/Minerals (Multivitamin With Minerals) 1 tablet PO DAILY@0800 [facility] Last Admin: 06/03/17 08:03 Dose: 1 tablet Nadolol (Corgard) 40 - 80 mg PO DAILY [facility] Last Admin: 06/03/17 08:02 Dose: 40 mg Nystatin (Mycostatin Powder) 1 applic TOPICAL 4X/DAY PRN; Protocol PRN Reason: YEAST Ondansetron HCl (Zofran Odt) 4 mg PO Q6H PRN PRN PRN Reason: NAUSEA Ondansetron HCl (Zofran) 4 mg IV Q8H PRN PRN PRN Reason: Nausea Oseltamivir Phosphate (Tamiflu) 30 mg PO BID [facility] Stop: 06/06/17 10:01 Last Admin: 06/03/17 08:06 Dose: 30 mg Pantoprazole Sodium (Protonix) 40 mg PO BID [facility] Last Admin: 06/03/17 08:03 Dose: 40 mg Paroxetine HCl (Paxil) 40 mg PO DAILY [facility] Last Admin: 06/03/17 08:03 Dose: 40 mg Pramipexole Dihydrochloride (Mirapex) 0.5 mg PO QHS [facility] Last Admin: 06/02/17 21:50 Dose: 0.5 mg Prednisone (Prednisone) 40 mg PO DAILY@0800 [facility] Last Admin: 06/03/17 08:03 Dose: 40 mg Sodium Chloride () 5 - 30 ml IV UD PRN PRN Reason: SALINE FLUSH Assessment/Plan Active and Suspected Problems Influenza (Acute) Acute asthma exacerbation (Acute) The patient is a 71 year old F presents with shortness of breath and chills for 1 day. Began late Wendie early morning. Patient was just chilling. Presented to the emergency room with tachypnea. Patient was put on breathing treatments. She received Solu-Medrol, aerosols. Patient tested positive for flu Wednesday and received Tamiflu. Patient is feeling somewhat better at this time. 1. SIRS (FEVER, tachycardia, tachypnea and hypoxia) due to acute bronchitis and subsequent asthma exacerbation Secondary to influenza A viral bronchitis Tamiflu. Continue Tamiflu for a total of 5 days. Supportive management pain and fever control as needed. DC IV fluid 2. Acute asthma exacerbation with acute hypoxic respiratory failure measured on the emergency room. On Bronchodilator. on prednisone. Patient is to 2-3 L of oxygen per minute titrate to keep pulse ox more than 90%. Discontinue the prednisone oral and Pulmicort inhalation on Solu-Medrol 40 mg every 12 hourly. Diabetes mellitus type II with hyperglycemia: Long-acting insulin Levemir 15 units subcu twice daily and on NovoLog sliding scale and scheduled regular insulin. Insulin dose adjusted. DVT prophylaxis with Lovenox This note was generated with [employer] dictation software. It may contain incorrect words, spelling, and punctuation that were not noted in checking the note before signing. Microbiology Past 72 Hours 06/01/17 15:21 Blood Culture (Wb) - Left Wrist Blood Culture - Preliminary No growth in 48 hours. 06/01/17 15:28 Blood Culture (Wb) - Left Hand Blood Culture - Preliminary No growth in 48 hours. 06/01/17 15:10 Mucosa - Nose Influenza Types A,B Direct FA (RODRIGO) - Final Influenzae A Laboratory Results 06/02/17 16:54: POC Glucose 314 H 06/02/17 21:51: POC Glucose 234 H 06/03/17 07:28: POC Glucose 86 06/03/17 11:11: POC Glucose 221 H Clinical Impression(s) from Imaging Studies Chest X-Ray 06/01/17 15:00 IMPRESSION: Degenerative changes, as described above. No demonstrated acute cardiopulmonary process. Electronically Signed: Yong Ordonez MD at 15:25 EST , Service support , Code Visit Inpatient E&M: [id number] Subs Hosp L2
--- NOTE | 2017-06-03 15:46 | PN_ITS ---
Patient Problems: Active and Suspected Problems Influenza (Acute) Acute asthma exacerbation (Acute) Subjective: Patient gets easily short of breath even on conversation. Has history of asthma or possible asthmatic/COPD bronchitis. Vitals/I&O's: Vital Signs Temp Pulse Resp BP Pulse Ox 97.9 F 67 18 142/73 H 95 06/03/17 08:50 06/03/17 14:58 06/03/17 14:58 06/03/17 08:50 06/03/17 08:50 Oxygen Flow Rate 2 Oxygen Delivery Method Room Air Weight: 301 lb 3.199 oz Body Mass Index (BMI) 53.3 Intake and Output for Last 24 Hours 06/01/17 06/02/17 06/03/17 23:59 23:59 23:59 Intake Total 200 / 200 3191 / 3191 1000 / 1000 Output Total 400 / 400 650 / 650 Balance -200 / -200 2541 / 2541 1000 / 1000 General: Alert, Oriented x3, Cooperative HEENT: Atraumatic, PERRLA, EOMI, Normocephalic Neck: Supple, No JVD, Negative Carotid Bruits Lungs: Diminished, Short of Breath - On mild exertion, Wheezes Cardiovascular: Regular rate, Regular Rhythm, Normal S1, Normal S2, No murmurs Abdomen: Bowel Sounds Present, Soft, Non Tender, Non-Distended Extremities: No edema, Capillary Refill Less than 3 Seconds Skin: No rashes, No breakdown Musculoskeletal: No Tenderness to Palpation of Joints or Extremities Neurological: Cranial nerves II-XII grossly intact Psych/Mental Status: Normal Affect, Appropriate Laboratory Results 06/02/17 16:54: POC Glucose 314 H 06/02/17 21:51: POC Glucose 234 H 06/03/17 07:28: POC Glucose 86 06/03/17 11:11: POC Glucose 221 H Current Medications Acetaminophen (Tylenol) 650 mg PO Q6H PRN PRN PRN Reason: Mild Pain (scale 0-3)/T>100.7 Last Admin: 06/03/17 13:04 Dose: 650 mg Albuterol Sulfate (Ventolin Aerosols) 2.5 mg INHALATION Q2H PRN PRN PRN Reason: SHORTNESS OF BREATH Albuterol Sulfate (Ventolin Aerosols) 2.5 mg INHALATION Q6HWA.RT [facility] Last Admin: 06/02/17 19:56 Dose: 2.5 mg Albuterol/Ipratropium (Duoneb) 3 ml INHALATION Q4H.RT [facility] Last Admin: 06/03/17 14:58 Dose: 3 ml Budesonide (Pulmicort Aerosol) 0.5 mg INHALATION Q12H.RT [facility] Last Admin: 06/03/17 06:43 Dose: 0.5 mg Calcium Carbonate (Os-Lance 500) 500 mg PO DAILY@0800 [facility] Last Admin: 06/03/17 11:13 Dose: 500 mg Dicyclomine HCl (Bentyl) 10 mg PO BID PRN PRN PRN Reason: ABD CRAMPS Enoxaparin Sodium (Lovenox) 40 mg SC DAILY@1000 [facility] Last Admin: 06/03/17 08:03 Dose: 40 mg Ergocalciferol (Vitamin D) 50,000 unit PO SUWE [facility] Last Admin: 06/02/17 09:28 Dose: 50,000 unit Fluticasone Propionate (Flonase Nasal [place]) 2 spray NASAL DAILY [facility] Last Admin: 06/03/17 08:04 Dose: 2 spray Insulin Aspart (Novolog Flexpen ([facility])) 0 units SC ACHS [facility] PRN Reason: Protocol Last Admin: 06/03/17 11:15 Dose: 6 units Insulin Detemir (Levemir ([facility])) 10 units SC BID [facility] Last Admin: 06/03/17 11:14 Dose: 10 u Insulin Human Regular (Humulin R U-500 ([facility])) 0.17 ml SC BIDAC [facility] Last Admin: 06/03/17 08:02 Dose: 0.17 ml Loratadine (Claritin) 5 mg PO DAILY [facility] Last Admin: 06/03/17 08:03 Dose: 5 mg Magnesium Hydroxide (Milk Of Magnesia) 30 ml PO DAILY PRN PRN PRN Reason: Constipation Methylphenidate HCl (Ritalin (G)) 20 mg PO BID [facility] Last Admin: 06/03/17 11:13 Dose: 20 mg Montelukast Sodium (Singulair) 10 mg PO DAILY [facility] Last Admin: 06/03/17 08:06 Dose: 10 mg Multivitamins/Minerals (Multivitamin With Minerals) 1 tablet PO DAILY@0800 [facility] Last Admin: 06/03/17 08:03 Dose: 1 tablet Nadolol (Corgard) 40 - 80 mg PO DAILY [facility] Last Admin: 06/03/17 08:02 Dose: 40 mg Nystatin (Mycostatin Powder) 1 applic TOPICAL 4X/DAY PRN; Protocol PRN Reason: YEAST Ondansetron HCl (Zofran Odt) 4 mg PO Q6H PRN PRN PRN Reason: NAUSEA Ondansetron HCl (Zofran) 4 mg IV Q8H PRN PRN PRN Reason: Nausea Oseltamivir Phosphate (Tamiflu) 30 mg PO BID [facility] Stop: 06/06/17 10:01 Last Admin: 06/03/17 08:06 Dose: 30 mg Pantoprazole Sodium (Protonix) 40 mg PO BID [facility] Last Admin: 06/03/17 08:03 Dose: 40 mg Paroxetine HCl (Paxil) 40 mg PO DAILY [facility] Last Admin: 06/03/17 08:03 Dose: 40 mg Pramipexole Dihydrochloride (Mirapex) 0.5 mg PO QHS [facility] Last Admin: 06/02/17 21:50 Dose: 0.5 mg Prednisone (Prednisone) 40 mg PO DAILY@0800 [facility] Last Admin: 06/03/17 08:03 Dose: 40 mg Sodium Chloride () 5 - 30 ml IV UD PRN PRN Reason: SALINE FLUSH Assessment/Plan Active and Suspected Problems Influenza (Acute) Acute asthma exacerbation (Acute) The patient is a 71 year old F presents with shortness of breath and chills for 1 day. Began late Wendie early morning. Patient was just chilling. Presented to the emergency room with tachypnea. Patient was put on breathing treatments. She received Solu-Medrol, aerosols. Patient tested positive for flu Wednesday and received Tamiflu. Patient is feeling somewhat better at this time. 1. SIRS (FEVER, tachycardia, tachypnea and hypoxia) due to acute bronchitis and subsequent asthma exacerbation Secondary to influenza A viral bronchitis Tamiflu. Continue Tamiflu for a total of 5 days. Supportive management pain and fever control as needed. DC IV fluid 2. Acute asthma exacerbation with acute hypoxic respiratory failure measured on the emergency room. On Bronchodilator. on prednisone. Patient is to 2-3 L of oxygen per minute titrate to keep pulse ox more than 90%. Discontinue the prednisone oral and Pulmicort inhalation on Solu-Medrol 40 mg every 12 hourly. Diabetes mellitus type II with hyperglycemia: Long-acting insulin Levemir 15 units subcu twice daily and on NovoLog sliding scale and scheduled regular insulin. Insulin dose adjusted. DVT prophylaxis with Lovenox This note was generated with [employer] dictation software. It may contain incorrect words, spelling, and punctuation that were not noted in checking the note before signing. Microbiology Past 72 Hours 06/01/17 15:21 Blood Culture (Wb) - Left Wrist Blood Culture - Preliminary No growth in 48 hours. 06/01/17 15:28 Blood Culture (Wb) - Left Hand Blood Culture - Preliminary No growth in 48 hours. 06/01/17 15:10 Mucosa - Nose Influenza Types A,B Direct FA (RODRIGO) - Final Influenzae A Laboratory Results 06/02/17 16:54: POC Glucose 314 H 06/02/17 21:51: POC Glucose 234 H 06/03/17 07:28: POC Glucose 86 06/03/17 11:11: POC Glucose 221 H Clinical Impression(s) from Imaging Studies Chest X-Ray 06/01/17 15:00 IMPRESSION: Degenerative changes, as described above. No demonstrated acute cardiopulmonary process. Electronically Signed: Yong Ordonez MD at 15:25 EST , Service support , Code Visit Inpatient E&M: 66070 Subs Hosp L2
[2017-06-03 17:26] LABS: Bedside Glucose 227 mg/dL (70-110)
[2017-06-03] MEDS: 0.9% NaCl Peripheral Flush Adult/Peds IV (21:46)
[2017-06-03] MEDS: Pramipexole Di-HCl 0.5 MG Tablet PO (21:49)
[2017-06-03 22:01] LABS: Bedside Glucose 274 mg/dL (70-110)
[2017-06-04 03:04] VITALS: BP 154/78; PULSE 66; RESP 20; TEMP 36.6; O2SAT 98
[2017-06-04 06:48] VITALS: PULSE 61; RESP 18; O2SAT 95
[2017-06-04] MEDS: Ipratropium/Albuterol Sulfate 3 ML AMPUL.NEB INHALATION ×2 (06:48→10:42)
[2017-06-04 06:49] LABS: Anion Gap 6 (5-15); BUN 18 mg/dL (7-18); Calcium,Total 9.3 mg/dL (8.5-10.1); Chloride 99 mmol/L (98-107); Creatinine, Serum 0.64 mg/dL (0.55-1.02); EST Glomerular Filtration Rate 97 mL/min (>60); Est Glom Filt Rate - Afr Amer 117 mL/min (>60); Glucose 169 mg/dL (70-110); Potassium 4.5 mmol/L (3.5-5.1); Sodium Level 137 mmol/L (136-145)
[2017-06-04 08:09] VITALS: BP 161/78; PULSE 65; RESP 16; TEMP 36.1; O2SAT 96
[2017-06-04 08:15] LABS: Bedside Glucose 153 mg/dL (70-110)
[2017-06-04] MEDS: Calcium (Elemental) 500 MG Tablet PO (09:07)
[2017-06-04] MEDS: Multivitamins,Ther W-Minerals Tablet 1 TABLET PO (09:08)
[2017-06-04] MEDS: Loratadine 10 MG Tablet 5 MG PO (09:08)
[2017-06-04] MEDS: Pantoprazole Sodium 40 MG Tablet PO (09:08)
[2017-06-04] MEDS: Enoxaparin 40 MG/0.4 ML Syringe SC (09:08)
[2017-06-04] MEDS: Nadolol 40 MG Tablet PO (09:09)
[2017-06-04] MEDS: Montelukast 10 MG Tablet PO (09:10)
[2017-06-04] MEDS: Fluticasone 0.05% 1 SPRAY NASAL.SRY 2 SPRAY NASAL (09:11)
[2017-06-04] MEDS: Oseltamivir Phosphate 30 MG Capsule PO (09:13)
[2017-06-04] MEDS: Methylphenidate HCl 5 MG Tablet 20 MG PO ×2 (09:16→11:46)
[2017-06-04 10:39] LABS: Hemoglobin A1c 7.5 % (4.2-6.3)
[2017-06-04 10:43] VITALS: PULSE 73; RESP 18
--- NOTE | 2017-06-04 11:22 | PCM.DC ---
- Discharge Diagnoses Current Active Problems: Current Active and Chronic Problems Influenza (Acute) Acute asthma exacerbation (Acute) You will use the following diet at home:: Calorie/Carbohydrate Controlled (specify 1200, 1400, etc), Cardiac Allergies/Adverse Reactions: Allergies adhesive tape Allergy (Verified 06/01/17 16:48) Unknown listed on pcp allergy list mesalamine [From Asacol] Allergy (Verified 06/01/17 16:48) Unknown listed on pcp allergy list omalizumab [From Xolair] Allergy (Verified 06/01/17 16:48) Unknown listed on pcp allergy list Sulfa (Sulfonamide Antibiotics) Allergy (Verified 11/14/16 11:33) Unknown duracef Allergy (Uncoded 06/01/17 16:48) Unknown listed on pcp allergy list Medications to take at Discharge Budesonide [Rhinocort Allergy] 2 spray NS DAILY 06/01/17 Calcium (Elemental) [Os-Lance 500] 500 mg PO DAILY@0800 06/01/17 Cholecalciferol (Vitamin D3) [Vitamin D3] 50,000 unit PO SUWE 06/01/17 Dicyclomine HCl [Bentyl] 10 mg PO BID PRN PRN 06/01/17 Insulin Regular, Human [Humulin R U-500 Kwikpen] 85 unit SQ BID 06/01/17 Lansoprazole [Prevacid] 30 mg PO BID 06/01/17 Levocetirizine Dihydrochloride [Xyzal] 5 mg PO DAILY 06/01/17 Methylphenidate HCl [Methylphenidate ER] 20 mg PO BID 06/01/17 Mometasone/Formoterol [Dulera 200 Mcg/5 Mcg Inhaler] 2 puff INHALATION BID 06/01/17 Montelukast [Singulair] 10 mg PO DAILY 06/01/17 Multivit-Min/Iron/Folic/Lutein [Centrum Silver Women Tablet] 1 each PO DAILY 06/01/17 Nystatin Powder [Mycostatin Powder] 1 applic TOPICAL 4X/DAY PRN 06/01/17 Ondansetron [Zofran Odt] 4 mg PO Q6H PRN PRN 06/01/17 Paroxetine HCl [Paxil] 40 mg PO DAILY 06/01/17 Pramipexole Di-HCl [Mirapex] 0.5 mg PO QHS 06/01/17 Nadolol 1 tab PO DAILY #0 06/04/17 Oseltamivir Phosphate [Tamiflu] 30 mg PO BID #5 cap 06/04/17 Prednisone 10 mg PO UD #30 tab 06/04/17 The following prescriptions were given: Prednisone 10 mg PO UD #30 tab Oseltamivir Phosphate [Tamiflu] 30 mg PO BID #5 cap Primary Care Physician: Senait Jay MD [Primary Care Provider] - Please follow up with your Primary Care Physician in: in 2 weeks Please Follow Up With: Best Serna MD When: in 3-4 weeks for asthma/COPD
[2017-06-04 11:30] LABS: Bedside Glucose 271 mg/dL (70-110)
[2017-06-04 11:31] VITALS: BP 161/86; PULSE 66; RESP 16; TEMP 36.6; O2SAT 95
--- NOTE | 2017-06-04 12:30 | CASEMGMT ---
Patient requesting services and equipment. Patient states that she needs a lift chair and bedside commode. JASWINDER PLASCENCIA gave patient information and contact number for the [facility] to assist with possible lift chair for stairs. JASWINDER PLASCENCIA obtained script for bedside commode and faxed to [facility] the patient's preferred DME company and arranged from commode to be delivered to patient's home. JASWINDER PLASCENCIA will continue to follow this patient and plan for safe discharge.
--- NOTE | 2017-06-04 19:17 | PCM.DC.SUM ---
Discharge Date and Diagnosis Date of Admission: 06/01/17 Date of Discharge: 06/04/17 - Primary Discharge Diagnosis 1. SIRS (FEVER, tachycardia, tachypnea and hypoxia) due to acute bronchitis and subsequent asthma exacerbation Secondary to influenza A viral bronchitis 2. Acute asthma exacerbation with acute on chronic hypoxic respiratory failure - Secondary Discharge Diagnosis Chronic Problems Celiac disease (Chronic) Asthma (Chronic) BMI 50.0-59.9, adult (Chronic) History of right breast cancer (Chronic) Hospital Course and Treatment Operations: None Summary of Care Provided: The patient is a 71 year old F [] Home Medications: Medications to take at Discharge Budesonide [Rhinocort Allergy] 2 spray NS DAILY 06/01/17 Calcium (Elemental) [Os-Lance 500] 500 mg PO DAILY@0800 06/01/17 Cholecalciferol (Vitamin D3) [Vitamin D3] 50,000 unit PO SUWE 06/01/17 Dicyclomine HCl [Bentyl] 10 mg PO BID PRN PRN 06/01/17 Insulin Regular, Human [Humulin R U-500 Kwikpen] 85 unit SQ BID 06/01/17 Lansoprazole [Prevacid] 30 mg PO BID 06/01/17 Levocetirizine Dihydrochloride [Xyzal] 5 mg PO DAILY 06/01/17 Methylphenidate HCl [Methylphenidate ER] 20 mg PO BID 06/01/17 Mometasone/Formoterol [Dulera 200 Mcg/5 Mcg Inhaler] 2 puff INHALATION BID 06/01/17 Montelukast [Singulair] 10 mg PO DAILY 06/01/17 Multivit-Min/Iron/Folic/Lutein [Centrum Silver Women Tablet] 1 each PO DAILY 06/01/17 Nystatin Powder [Mycostatin Powder] 1 applic TOPICAL 4X/DAY PRN 06/01/17 Ondansetron [Zofran Odt] 4 mg PO Q6H PRN PRN 06/01/17 Paroxetine HCl [Paxil] 40 mg PO DAILY 06/01/17 Pramipexole Di-HCl [Mirapex] 0.5 mg PO QHS 06/01/17 Nadolol 1 tab PO DAILY #0 06/04/17 Oseltamivir Phosphate [Tamiflu] 30 mg PO BID #5 cap 06/04/17 Prednisone 10 mg PO UD #30 tab 06/04/17 Following Prescrptions Were Given to Patient: Prednisone 10 mg PO UD #30 tab Oseltamivir Phosphate [Tamiflu] 30 mg PO BID #5 cap Primary Care Physician: Senait Jay MD [Primary Care Provider] - Please follow up with your Primary Care Physician in: in 2 weeks Please Follow Up With: Best Serna MD When: in 3-4 weeks for asthma/COPD Meaningful Use Info Meaningful Use Diagnoses (Choose all that apply): None applicable Code Visit Inpatient E&M: 07557 Disch Hosp
--- NOTE | 2017-06-04 19:24 | DS.PCM_ITS ---
Discharge Date and Diagnosis Date of Admission: 06/01/17 Date of Discharge: 06/04/17 - Primary Discharge Diagnosis 1. SIRS (FEVER, tachycardia, tachypnea and hypoxia) due to acute bronchitis and subsequent asthma exacerbation Secondary to influenza A viral bronchitis 2. Acute asthma exacerbation with acute on chronic hypoxic respiratory failure - Secondary Discharge Diagnosis Chronic Problems Celiac disease (Chronic) Asthma (Chronic) BMI 50.0-59.9, adult (Chronic) History of right breast cancer (Chronic) Hospital Course and Treatment Operations: None Summary of Care Provided: The patient is a 71 year old F [] Home Medications: Medications to take at Discharge Budesonide [Rhinocort Allergy] 2 spray NS DAILY 06/01/17 Calcium (Elemental) [Os-Lance 500] 500 mg PO DAILY@0800 06/01/17 Cholecalciferol (Vitamin D3) [Vitamin D3] 50,000 unit PO SUWE 06/01/17 Dicyclomine HCl [Bentyl] 10 mg PO BID PRN PRN 06/01/17 Insulin Regular, Human [Humulin R U-500 Kwikpen] 85 unit SQ BID 06/01/17 Lansoprazole [Prevacid] 30 mg PO BID 06/01/17 Levocetirizine Dihydrochloride [Xyzal] 5 mg PO DAILY 06/01/17 Methylphenidate HCl [Methylphenidate ER] 20 mg PO BID 06/01/17 Mometasone/Formoterol [Dulera 200 Mcg/5 Mcg Inhaler] 2 puff INHALATION BID 06/01 Montelukast [Singulair] 10 mg PO DAILY 06/01/17 Multivit-Min/Iron/Folic/Lutein [Centrum Silver Women Tablet] 1 each PO DAILY Nystatin Powder [Mycostatin Powder] 1 applic TOPICAL 4X/DAY PRN 06/01/17 Ondansetron [Zofran Odt] 4 mg PO Q6H PRN PRN 06/01/17 Paroxetine HCl [Paxil] 40 mg PO DAILY 06/01/17 Pramipexole Di-HCl [Mirapex] 0.5 mg PO QHS 06/01/17 Nadolol 1 tab PO DAILY #0 06/04/17 Oseltamivir Phosphate [Tamiflu] 30 mg PO BID #5 cap 06/04/17 Prednisone 10 mg PO UD #30 tab 06/04/17 Following Prescrptions Were Given to Patient: Prednisone 10 mg PO UD #30 tab Oseltamivir Phosphate [Tamiflu] 30 mg PO BID #5 cap Primary Care Physician: Senait Jay MD [Primary Care Provider] - Please follow up with your Primary Care Physician in: in 2 weeks Please Follow Up With: Best Serna MD When: in 3-4 weeks for asthma/COPD Meaningful Use Info Meaningful Use Diagnoses (Choose all that apply): None applicable Code Visit Inpatient E&M: 46873 Disch Hosp
== END 2017-06-04 13:28 | disposition home or self-care (01) | DRG 193 ==
LOC: ED 15:12 → MS3 19:09
PROVIDERS: Emergency Provider Emergency Medicine; Family Provider Internal Medicine; PCP Internal Medicine; Visit Provider Internal Medicine
DX: J10.1 Influenza due to other identified influenza virus with other respiratory manifestations (principal); J96.21 Acute and chronic respiratory failure with hypoxia; E11.65 Type 2 diabetes mellitus with hyperglycemia; J45.901 Unspecified asthma with (acute) exacerbation; J20.9 Acute bronchitis, unspecified; K90.0 Celiac disease; Z85.3 Personal history of malignant neoplasm of breast; Z79.4 Long term (current) use of insulin
CPT/HCPCS: 36415; 71010; 80048; 82962; 83036; 83605; 85025; 87040; 87804; 93005; 94640; 97802; 99285; J7030; A4216

== ENCOUNTER → 2017-08-03 12:11 | Outpatient (CLI) | payer MEDICARE, SELFPAY ==
[2017-08-03 13:22] LABS: Absolute Lymphocyte Count 2.37 X10^3/ul (0.83-4.51); Absolute Neutrophil Count 4.7 X10^3/uL (2.0-7.7); Basophil# 0.05 X10^3/uL; Basophil% 0.6 % (0-1); Eosinophil# 0.59 X10^3/uL; Eosinophils% 7.2 % (0-5); Hematocrit 41.8 % (37-47); Hemoglobin 13.8 g/dl (12.0-15.0); Lymphocyte # 2.37 X10^3/ul (4.0); Mean Corpuscular Hgb 29.1 pg (27.0-32.0); Mean Corpuscular Volume 88.2 fL (81-99); Mean Platelet Vol. 10.3 fl (6.2-12.0); Monocyte# 0.49 X10^3/uL; Neutrophil # 4.65 X10^3/uL (2.7-7.7); Platelet Count 195 K/mm3 (150-450); RBC Distribution Width CV 13.8 % (11.6-14.6); RBC Distribution Width SD 44.6 fl (35.1-43.9); Red Blood Count 4.74 M/mm3 (4.2-5.4); White Blood Count 8.2 K/mm3 (4.4-11.0)
[2017-08-03 13:24] LABS: POSITIVE COUNT NO; POSITIVE DIFFERENTIAL NO; POSITIVE MORPHOLOGY NO
[2017-08-03 13:34] LABS: Hemoglobin A1c 7.2 % (4.2-6.3)
[2017-08-03 13:37] LABS: ALB/GLOB Ratio 0.8 RATIO (0.9-2.4); AST(SGOT) 71 U/L (15-37); Alanine Aminotransfer ALT/SGPT 77 U/L (13-56); Albumin, Serum 3.3 g/dL (3.2-5.0); Alkaline Phosphatase 78 U/L (45-117); Anion Gap 8 (5-15); BUN 12 mg/dL (7-18); Calcium,Total 9.2 mg/dL (8.5-10.1); Chloride 106 mmol/L (98-107); Creatinine, Serum 0.63 mg/dL (0.55-1.02); EST Glomerular Filtration Rate 99 mL/min (>60); Est Glom Filt Rate - Afr Amer 119 mL/min (>60); Globulin 4.3 g/dL (2.2-4.2); Glucose 101 mg/dL (74-106); Potassium 4.1 mmol/L (3.5-5.1); Protein, Total 7.6 g/dL (6.4-8.2); Sodium Level 140 mmol/L (136-145); Thyroid Stim Hormone (TSH) 1.48 uIU/mL (0.358-3.74)
[2017-08-04 09:35] LABS: Vitamin D,25 Hydroxy 64.8 ng/mL (29.95-100.01)
== END ==
PROVIDERS: Family Provider Internal Medicine; PCP Internal Medicine; Visit Provider Internal Medicine
DX: I10 Essential (primary) hypertension (principal); E55.9 Vitamin D deficiency, unspecified; E11.9 Type 2 diabetes mellitus without complications; Z79.899 Other long term (current) drug therapy
CPT/HCPCS: 80053; 82306; 83036; 84443; 85025

== ENCOUNTER 2017-08-15 16:13 | Inpatient (IN) | payer MEDICARE, SELFPAY ==
[2017-08-15 16:14] VITALS: BP 142/104; PULSE 84; RESP 20; TEMP 38.1; O2SAT 94; BMI 53.5
--- NOTE | 2017-08-15 16:17 | ED.RN ---
PT HAS STRONG URINE SMELL DURING TRIAGE.
--- NOTE | 2017-08-15 16:24 | RAD_ITS ---
STUDY: X-RAY CHEST REASON FOR EXAM: Female, 72 years old. Short of breath and confusion. TECHNIQUE: Single AP portable view of the chest. COMPARISON: 06/11/2017. FINDINGS: The lungs are clear and expanded. There is no demonstrated pleural abnormality. Normal size heart. Normal mediastinum and tanna. Normal visualized pulmonary arteries. Normal visualized aortic arch and descending thoracic aorta. Normal visualized thoracic spine. Normal visualized ribs, clavicles, and shoulders. There are clips in the right axilla consistent with lymphadenectomy for breast cancer. There is no demonstrated abnormality of the visualized soft tissue structures of the upper abdomen. RAD/Chest 1 View (Portable) IMPRESSION: No evidence for acute chest disease. Electronically Signed: Jose Kruse MD at 17:11 EDT , Service support ,
--- NOTE | 2017-08-15 16:24 | CT_ITS ---
STUDY: CT BRAIN WITHOUT CONTRAST REASON FOR EXAM: Female, 72 years old. Confusion and weakness. Breast cancer. RADIATION DOSAGE (If Supplied By Facility): CTDIvol = ( 44.99 ) mGy, DLP = ( 796.11 ) mGycm TECHNIQUE: Transaxial CT imaging of the brain was performed without administration of intravenous contrast material. Individualized dose optimization techniques were used for this CT. COMPARISON: 07/29/2016. FINDINGS: Normal soft tissue structures. Normal calvarium. Normal size ventricles and extra-axial spaces for the patient's age. There are areas of decreased attenuation within the white matter tracts of the supratentorial brain, consistent with microvascular disease changes. There are bilateral lacunar infarcts of the basal ganglia and thalami. Normal brainstem. Normal cerebellum. There is no intracranial hemorrhage. There are no findings of an acute ischemic infarction. Persistent chronic sinus disease in the maxillary sinuses and ethmoid air cells. CT/Brain/Head without Contrast IMPRESSION: No change. No acute adenopathy. Chronic white matter disease. Electronically Signed: Jose Kruse MD at 18:32 EDT , Service support ,
--- NOTE | 2017-08-15 16:25 | EKG12_ITS ---
Test Reason : WEAKNESS Blood Pressure : / mmHG Vent. Rate : 087 BPM Atrial Rate : 087 BPM P-R Int : 208 ms QRS Dur : 078 ms QT Int : 378 ms P-R-T Axes : 024 -16 057 degrees QTc Int : 454 ms Normal sinus rhythm Inferior infarct , age undetermined Abnormal ECG Confirmed by JACLYN RIVERA, KATIE ([id number]), art editor SAIRA WHITMORE ([id number]) on 08/18/2017 4:08:51 PM Referred By: ESCOBAR Confirmed By:KATIE ANAYA MD
--- NOTE | 2017-08-15 16:28 | ED.VISSUMM ---
- ER Visit Summary Date of Service: 08/15/17 Chief Complaint: Weakness, confusion, dyspnea. History of Present Illness: The patient is a 72 F here with granddaughter who is additional informant for noted increasing weakness, confusion, shortness of breath since yesterday. Patient states this chills and sweats. Denies any chest pains, cough or any urinary symptoms. Denies any abdominal pain nausea, vomiting, diarrhea. Reported there was a fall out of bed yesterday, however patient denies remembering this. Denies any injuries or any pain. Patient is a diabetic, asthma history. Sleep apnea with the CPAP at night. Patient baseline alert and orientated ?3, ambulates without any assistance. She lives with her spouse. Denies any rashes or painful bumps. Physical Examination: Vitals: Temperature 100.5, pulse 84, respirations 20, blood pressure 142/104, pulse ox 94% room air. General: Alert and oriented to person and place, did not know the year, no acute distress HEENT: Normocephalic, atraumatic. Moist mucosa membranes Neck: supple, nontender. Cardiovascular: Regular rate and rhythm, no murmurs Respiratory: Normal breath sounds, symmetric, no distress Abdomen: Soft, nontender, nondistended Extremities: Nontender, no edema, pulses intact ?4 Neuro: no focal neurological deficits. Moves all 4 extremities. Test Results: EKG sinus rate of [address] or T-wave changes. WBC 11.5. Creatinine 0.67. UA negative. Liver enzymes normal. Troponin negative. Chest x-ray negative. CT head with no acute process. CSF: Culture pending. Blood cultures pending. Emergency Department Course and Treatment: Patient nontoxic, not baseline per family. Alert and oriented person and place. Normally ?3. Workup with image studies, lab tests and urine are negative. She had a low-grade temp 100.5 in the ED. She is confused. I did speak with family and son bedside, patient no recent travel. However patient present with fever with encephalopathy. Discussed lumbar puncture for further evaluation. They agreed. Risks and benefits discussed. This was performed, difficulty patient size, requiring a 5 inch needle. Initial attempt at the L4 region, there is resistance therefore moved up to the L3 region. Approximate 4 inches, there is no resistance. There was drainage from the needle however is dark blood with slow drainage. One tube was collected to send for culture. Her lab due to clotting cell count was not able to be performed. Patient with no headache symptoms on presentation or currently. Patient was started on Rocephin and vancomycin. Blood pressure stable. Patient following commands. Spoke with hospitalist, Dr. Camejo for evaluation and admission. Treatment Plan: [] Disposition: Admission Impression: 1. Fever 2. Acute encephalopathy This note was generated with farmflo dictation software. It may contain incorrect words, spelling, and punctuation that were not noted in review of the chart prior to signing ED Disposition - Plan for ED Patient: Disposition: Acute Care [facility] Chief Complaint: Weakness Diagnosis: Fever, Encephalopathy
[2017-08-15 16:41] LABS: Bedside Glucose 154 mg/dL (70-110)
[2017-08-15] MEDS: 0.9% Normal Saline 1,000 ML 1000 ML IV (16:51)
[2017-08-15 17:03] LABS: Absolute Lymphocyte Count 2.68 X10^3/ul (0.83-4.51); Absolute Neutrophil Count 7.6 X10^3/uL (2.0-7.7); Basophil# 0.03 X10^3/uL; Basophil% 0.3 % (0-1); Eosinophil# 0.08 X10^3/uL; Eosinophils% 0.7 % (0-5); Hematocrit 41.9 % (37-47); Hemoglobin 14.3 g/dl (12.0-15.0); Lymphocyte # 2.68 X10^3/ul (4.0); Lymphocyte % 23.4 % (19-41); Mean Corp Hgb Conc 34.1 g/gl (32-36); Mean Corpuscular Hgb 28.9 pg (27.0-32.0); Mean Corpuscular Volume 84.8 fL (81-99); Mean Platelet Vol. 9.8 fl (6.2-12.0); Monocyte# 1.08 X10^3/uL; Monocyte% 9.4 % (0-10); Neutrophil # 7.56 X10^3/uL (2.7-7.7); Neutrophil % 65.9 % (47-70); Platelet Count 191 K/mm3 (150-450); RBC Distribution Width CV 13.4 % (11.6-14.6); RBC Distribution Width SD 41.3 fl (35.1-43.9); Red Blood Count 4.94 M/mm3 (4.2-5.4); White Blood Count 11.5 K/mm3 (4.4-11.0)
[2017-08-15 17:07] LABS: POSITIVE COUNT NO; POSITIVE DIFFERENTIAL NO; POSITIVE MORPHOLOGY NO
[2017-08-15 17:10] VITALS: BP 164/68; PULSE 78; RESP 22; O2SAT 95
[2017-08-15 17:12] LABS: Bacteria 0 SEEN /hpf (None Seen); Mucous, Urine 0 SEEN /hpf (<or=2+); Red Blood Cells-Urine 0 SEEN /hpf (0-5); White Blood Cells 0 SEEN /hpf (0-5)
[2017-08-15 17:14] LABS: Color, Urine Yellow (Yellow); Glucose, Dipstick Normal (Normal); Ketone-Dipstick Negative (Negative); Leukocyte Esterase-Dipstick Negative /ul (Negative); Nitrite-Dipstick Negative (Negative); Occult Blood-Urine 10 /ul (Negative); Protein-Dipstick Negative (Negative); Specific Gravity, Urine 1.015 (1.002-1.030); Urine Bilirubin Dipstick Negative (Negative); Urine Clarity Clear (Clear); Urine Urobilinogen 8 mg/dl (Normal)
[2017-08-15 17:15] LABS: ALB/GLOB Ratio 0.8 RATIO (0.9-2.4); AST(SGOT) 34 U/L (15-37); Alanine Aminotransfer ALT/SGPT 42 U/L (13-56); Albumin, Serum 3.5 g/dL (3.2-5.0); Alkaline Phosphatase 71 U/L (45-117); Anion Gap 8 (5-15); BUN 12 mg/dL (7-18); Chloride 101 mmol/L (98-107); Creatinine, Serum 0.67 mg/dL (0.55-1.02); EST Glomerular Filtration Rate 93 mL/min (>60); Est Glom Filt Rate - Afr Amer 112 mL/min (>60); Estimated Creatinine Clearance 97.91 ml/min; Globulin 4.5 g/dL (2.2-4.2); Glucose 151 mg/dL (74-106); Potassium 3.9 mmol/L (3.5-5.1); Sodium Level 132 mmol/L (136-145)
[2017-08-15 17:21] LABS: Squamous Epithelial Cells - UA 0-5 SEEN /hpf (5-10)
[2017-08-15 18:14] VITALS: BP 176/86; PULSE 74; RESP 20; O2SAT 97
[2017-08-15 19:07] VITALS: BP 183/87; PULSE 77; PULSE 79; RESP 11; RESP 19; O2SAT 95; O2SAT 97
[2017-08-15 19:53] VITALS: BMI 50.5
--- NOTE | 2017-08-15 19:58 | PCM.HP.STD ---
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 Diabetes mellitus complication status: with unspecified complications Qualified Code(s): E11.8 - Type 2 diabetes mellitus with unspecified complications; Z79.4 - intermodal customer service (current) use of insulin; Z79.4 - retirement (current) use of insulin; Z79.4 - retirement (current) use of insulin; Z79.4 - retirement (current) use of insulin (4) History of right breast cancer Status: Chronic History of Present Illness Date of Admission: 08/15/17 Chief Complaint: AMS The patient is a 72 year old female w/ h/o DORY, HTN, thrust, yeast infection, DMII, and celiac disease admitted for encephalopathy and fever. She is unable to provide historian. She is not able to care for herself. She has been having increase confusion and weakness since yesterday. Nothing appeared to make it better or worse. She has chill that started today. She has no other complaints. No diarrhea or cough. Past Medical History Past Medical History (Chronic Problems): Chronic Problems Celiac disease (Chronic) Asthma (Chronic) BMI 50.0-59.9, adult (Chronic) History of right breast cancer (Chronic) Diabetes mellitus, type II (Chronic) Anxiety and depression (Chronic) Allergies adhesive tape Allergy (Verified 08/15/17 16:16) Unknown listed on pcp allergy list mesalamine [From Asacol] Allergy (Verified 08/15/17 16:16) Unknown listed on pcp allergy list omalizumab [From Xolair] Allergy (Verified 08/15/17 16:16) Unknown listed on pcp allergy list Sulfa (Sulfonamide Antibiotics) Allergy (Verified 08/15/17 16:16) Unknown duracef Allergy (Uncoded 06/01/17 16:48) Unknown listed on pcp allergy list Home Medications: Ambulatory Orders Medication Instructions Recorded Budesonide [Rhinocort Allergy] 2 spray NS DAILY 06/01/17 Calcium (Elemental) [Os-Lance 500] 500 mg PO BID 06/01/17 Cholecalciferol (Vitamin D3) 50,000 unit PO SUWE 06/01/17 [Vitamin D3] Dicyclomine HCl [Bentyl] 10 mg PO BID PRN PRN 12/26/17 Insulin Regular, Human [Humulin R 85 unit SQ BID 06/01/17 U-500 Kwikpen] Lansoprazole [Prevacid] 30 mg PO BID 06/01/17 Levocetirizine Dihydrochloride 5 mg PO DAILY 06/01/17 [Xyzal] Methylphenidate HCl 20 mg PO BID 06/01/17 [Methylphenidate ER] Nystatin Powder [Mycostatin Powder] 1 applic TOPICAL 4X/DAY PRN 06/01/17 Ondansetron [Zofran Odt] 4 mg PO Q6H PRN PRN 06/01/17 Paroxetine HCl [Paxil] 40 mg PO DAILY 06/01/17 Pramipexole Di-HCl [Mirapex] 0.5 mg PO QHS 06/01/17 Nadolol 1 tab PO DAILY #0 06/04/17 Carbamazepine 200 mg PO BID 06/11/17 Hydrochlorothiazide 12.5 mg PO PRN PRN 06/11/17 Multivitamin [Multiple Vitamins] 1 each PO DAILY 06/11/17 Fluconazole [Diflucan] 150 mg PO QWEEK 08/15/17 Surgical History: - - Rectocele repair. 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 Maternal History Items: Cancer Review of Systems Constitutional: Reports: Chills, Fever. Denies: Weight Change HEENT: Denies: Head Aches, Sinus Congestion, Sinus Drainage Cardiovascular: Denies: Chest Pain, Palpitations Respiratory: Denies: Cough, Shortness of breath at rest, Sputum production Gastrointestinal: Denies: Abdominal Pain, Nausea, Vomiting Genitourinary: Denies: Dysuria Musculoskeletal: Denies: Joint Pain, Joint Tenderness Skin: Reports: Rash. Denies: Wounds Neurological: Denies: Numbness, Tingling, Focal weakness Psychiatric: Denies: Anxiety, Depression, Homicidal Ideations, Suicidal Ideations Hematologic/ Lymphatic: Denies: Easy Bruising, Easy Bleeding VTE Information - Inpt Only VTE Present on Admission: No VTE Mechan Device Prophylaxis: SCD's VTE Pharm Prophylaxis ordered?: Yes Patient Problems: Active and Suspected Problems Fever (Acute) Encephalopathy (Acute) - Physical Exam General: Alert, Oriented x3, Cooperative HEENT: Atraumatic, PERRLA, EOMI, Normocephalic Neck: Supple, No JVD, Negative Carotid Bruits Lungs: Clear to auscultation, Normal air movement Cardiovascular: Regular rate, No murmurs Abdomen: Bowel Sounds Present, Soft, Non Tender Extremities: No edema, Capillary Refill Less than 3 Seconds Skin: Excoriated, - - Multiple dependent area rash Musculoskeletal: No Tenderness to Palpation of Joints or Extremities Neurological: Cranial nerves II-XII grossly intact Psych/Mental Status: Normal Affect, Appropriate Vital Signs Temp Pulse Resp BP Pulse Ox 100.5 F H 79 19 H 183/87 H 97 08/15/17 16:14 08/15/17 19:07 08/15/17 19:07 08/15/17 19:07 08/15/17 19:07 Assessment/Plan Active and Suspected Problems Fever (Acute) Encephalopathy (Acute) 72 year old female w/ h/o DORY, HTN, thrust, yeast infection, DMII, and celiac disease admitted for encephalopathy and fever. 1) Encephalopathy: Probably secondary to infection. Unclear source but probably urinary. Will start ceftriaxone. C/w fluconazole for yeast infection. Will get ammonia, TSH, folate, B122. Cultures pending. 2) Fever: Unclear etiology. Probably from rash vs UTI. Cultures pending. C/w ceftriaxone. Monitor. 3) Chronic issues: HTN, DMII: Resume home meds. 4) Prophylaxis: SCD / heparin.
[2017-08-15 20:00] VITALS: BP 160/75; PULSE 76; RESP 24; TEMP 37.2; O2SAT 99
[2017-08-15] MEDS: 0.9% Normal Saline 1,000 ML 100 ML IV (20:48)
[2017-08-15 21:21] LABS: Ammonia < 10.0 umol/L (11-32)
[2017-08-15 21:36] LABS: Thyroid Stim Hormone (TSH) 0.22 uIU/mL (0.358-3.74)
[2017-08-15 22:45] VITALS: BP 158/76; PULSE 84; RESP 24; TEMP 37.4; O2SAT 95
[2017-08-15] MEDS: Pantoprazole Sodium 40 MG Tablet PO (22:51)
[2017-08-15] MEDS: Pramipexole Di-HCl 0.5 MG Tablet PO (22:51)
[2017-08-16] VITALS (11 sets, daily range): BP systolic 135–154; BP diastolic 69–82; PULSE 69–87; RESP 14–20; TEMP 36.4–37.7; O2SAT 93–97
[2017-08-16] MEDS: Ipratropium/Albuterol Sulfate 3 ML AMPUL.NEB INHALATION ×5 (00:04→19:03)
[2017-08-16] MEDS: Acetaminophen 500 MG Tablet PO ×4 (00:28→22:27)
[2017-08-16 00:41] LABS: Allen Test POS; Base Excess 2 mmol/L (-2 to +2); Bicarbonate 25.8 mmol/L (22-26); Blood Gas Specimen Type ART; O2 Delivery Device Nasal Can; PO2 79 mmHG (75-100); SITE R Radial; SO2 96 % (95-99); Time Given 25; Total Carbon Dioxide 27 mmol/L; pCO2 38.4 mmHg (35-45); pH 7.43 (7.35-7.45)
[2017-08-16 06:06] LABS: Absolute Lymphocyte Count 2.71 X10^3/ul (0.83-4.51); Absolute Neutrophil Count 5.9 X10^3/uL (2.0-7.7); Basophil# 0.05 X10^3/uL; Basophil% 0.5 % (0-1); Eosinophil# 0.13 X10^3/uL; Eosinophils% 1.3 % (0-5); Hematocrit 40.2 % (37-47); Hemoglobin 13.8 g/dl (12.0-15.0); Lymphocyte # 2.71 X10^3/ul (4.0); Mean Corp Hgb Conc 34.3 g/gl (32-36); Mean Corpuscular Volume 84.5 fL (81-99); Mean Platelet Vol. 9.5 fl (6.2-12.0); Monocyte# 1.22 X10^3/uL; Monocyte% 12.2 % (0-10); Neutrophil # 5.89 X10^3/uL (2.7-7.7); Neutrophil % 58.7 % (47-70); Platelet Count 148 K/mm3 (150-450); RBC Distribution Width CV 13.2 % (11.6-14.6); RBC Distribution Width SD 40.7 fl (35.1-43.9); Red Blood Count 4.76 M/mm3 (4.2-5.4)
[2017-08-16 06:14] LABS: POSITIVE COUNT NO; POSITIVE DIFFERENTIAL NO; POSITIVE MORPHOLOGY NO
[2017-08-16 06:29] LABS: Anion Gap 8 (5-15); BUN 12 mg/dL (7-18); BUN/Creat Ratio 20.1 RATIO (10-20); Calcium,Total 8.3 mg/dL (8.5-10.1); Chloride 105 mmol/L (98-107); EST Glomerular Filtration Rate 105 mL/min (>60); Est Glom Filt Rate - Afr Amer 127 mL/min (>60); Estimated Creatinine Clearance 44.56 ml/min; Glucose 129 mg/dL (74-106); Potassium 3.5 mmol/L (3.5-5.1); Sodium Level 137 mmol/L (136-145)
[2017-08-16 06:56] LABS: Bedside Glucose 139 mg/dL (70-110)
[2017-08-16] MEDS: Nystatin Powder 15gm Bottle 1 APPLIC TOPICAL ×3 (07:05→22:27)
--- NOTE | 2017-08-16 09:48 | PN_ITS ---
Patient Problems: Active and Suspected Problems Fever (Acute) Encephalopathy (Acute) Subjective: This 72-year-old lady with multiple comorbidities admitted with altered mental status in addition to subjective fever as well as chills also suspicion of acute infectious etiology however source cannot be found it was felt patient probably had acute cystitis started on Rocephin and admitted to regular nursing floor Objective: GENERAL: Appears ill looking HEENT: Clear conjunctiva, moist oral mucosa NECK; supple, normal thyroid, no distended JVD. CHEST: Diminished to auscultation bilaterally, HEART: Regular S1 S2, no audible murmurs ABDOMEN: soft, non-tender, normoactive bowel sounds, RECTAL: deferred EXTREMITIES: No edema, no clubbing, no cyanosis. CLINICAL MANAGER HOME CARE: Awake, no lateralizing signs. Vitals/I&O's: Vital Signs Temp Pulse Resp BP Pulse Ox 99.8 F H 76 18 154/81 H 96 08/16/17 00:45 08/16/17 07:17 08/16/17 07:17 08/16/17 00:45 08/16/17 07:17 Oxygen Flow Rate (L/min) 1 Oxygen Delivery Method Nasal Cannula Weight: 133.4 kg Body Mass Index (BMI) 50.5 Intake and Output for Last 24 Hours 08/14/17 08/15/17 08/16/17 22:59 23:59 23:59 Intake Total 2050 Output Total 2149 / 2149 Balance -99 / -99 Microbiology Past 72 Hours 08/15/17 23:40 Interface Orders Influenza Types A,B Direct FA (RODRIGO) - Final Laboratory Results 08/15/17 20:20: Folate 22.90, TSH 0.22 L 08/15/17 20:20: Vitamin B12 Pending 08/15/17 20:20: Ammonia < 10.0 L 08/15/17 20:20: RPR Pending 08/16/17 00:34: Specimen Type ART, Sample Site R Radial, pH 7.43, Bicarbonate Actual 25.8, POC Total CO2 27, Base Excess 2, O2 Saturation 96, ABG pCO2 38.4, ABG pO2 79, Vamsi Test POS, O2 Delivery Device Nasal Can, Liter Flow 1.0, Blood Gas Notified Whom HOSP , Blood Gas Notified Time 08/16/17 05:56: WBC 10.0, RBC 4.76, Hgb 13.8, Hct 40.2, MCV 84.5, MCH 29.0, MCHC 34.3, RDW 13.2, RDW Differential 40.7, Plt Count 148 L, MPV 9.5, Immature Gran % (Auto) 0.300, Neut % (Auto) 58.7, Lymph % (Auto) 27.0, Mcleod % (Auto) 12.2 H, Eos % (Auto) 1.3, Baso % (Auto) 0.5, Absolute Neuts (auto) 5.9, Absolute Lymphs (auto) 2.71, Total Counted Not Reportable 08/16/17 05:56: Sodium 137, Potassium 3.5, Chloride 105, Carbon Dioxide 24.0, Anion Gap 8, BUN 12, Creatinine 0.60, Estim Creat Clear Calc 44.56, Est GFR ( MDRD) Af Amer 127, Est GFR (MDRD) Non-Af 105, BUN/Creatinine Ratio 20.1 H, Glucose 129 H, Calcium 8.3 L 08/16/17 06:50: POC Glucose 139 H Current Medications Acetaminophen (Tylenol) 500 mg PO Q4H PRN PRN PRN Reason: PAIN Last Admin: 08/16/17 07:53 Dose: 500 mg Albuterol/Ipratropium (Duoneb) 3 ml INHALATION Q4H.RT STACY Last Admin: 08/16/17 07:17 Dose: 3 ml Calcium Carbonate (Os-Lance 500) 500 mg PO BIDCM [facility] Dicyclomine HCl (Bentyl) 10 mg PO BID PRN PRN PRN Reason: ABD CRAMPS Ergocalciferol (Vitamin D) 50,000 unit PO SUWE [facility] Fluconazole (Fluconazole) 150 mg PO QWEEK [facility] Fluticasone Propionate (Flonase Nasal [place]) 2 spray NASAL DAILY [facility] Heparin Sodium (Porcine) (Heparin Na) 5,000 unit SC Q8 [facility] Last Admin: 08/16/17 07:06 Dose: 5,000 units Hydrochlorothiazide (Hydrochlorothiazide) 12.5 mg PO DAILY PRN PRN PRN Reason: Swelling Ceftriaxone Sodium (Rocephin) 1 gm in 50 mls @ 100 mls/hr IV Q24 [facility] Sodium Chloride () 1,000 mls @ 100 mls/hr IV .Q10H [facility] Last Admin: 08/15/17 20:48 Dose: 100 mls/hr Insulin Human Regular (Humulin R U-500 (Bkc)) 0.17 ml SC BIDCM [facility] Loratadine (Claritin) 5 mg PO DAILY [facility] Magnesium Hydroxide (Milk Of Magnesia) 30 ml PO DAILY PRN PRN PRN Reason: Constipation Multivitamins (Multivitamin) 1 tablet PO DAILYCM [facility] Nadolol (Corgard) mg PO DAILY [facility] Nutritional Formula (Lactose Free) (Glucerna Shake) 120 ml PO TIDCM [facility] Nystatin (Nystatin) 500,000 unit PO 4X/DAY [facility] Nystatin (Mycostatin Powder) 1 applic TOPICAL TID [facility] PRN Reason: Protocol Last Admin: 08/16/17 07:05 Dose: 1 applicatio Ondansetron HCl (Zofran Odt) 4 mg PO Q6H PRN PRN PRN Reason: NAUSEA Pantoprazole Sodium (Protonix) 40 mg PO BID [facility] Last Admin: 08/15/17 22:51 Dose: 40 mg Paroxetine HCl (Paxil) 40 mg PO DAILY [facility] Pramipexole Dihydrochloride (Mirapex) 0.5 mg PO QHS [facility] Last Admin: 08/15/17 22:51 Dose: 0.5 mg Sodium Chloride () 5 - 30 ml IV UD PRN PRN Reason: SALINE FLUSH Assessment/Plan Active and Suspected Problems Fever (Acute) Encephalopathy (Acute) This 72-year-old lady with multiple comorbidities admitted with altered mental status in addition to subjective fever as well as chills also suspicion of acute infectious etiology however source cannot be found it was felt patient probably had acute cystitis started on Rocephin and admitted to regular nursing floor 1. Acute encephalopathy secondary to suspected infectious encephalopathy possibly from a urinary source patient was started on Rocephin was on fluconazole which was continued repeat culture sent 2. Hypertension-blood pressure controlled, home medications continued with dose adjustment as needed 3. Diabetes mellitus type 2: Patient is on long-acting insulin; did continue also placed on Accu-Cheks before meals and at bedtime with sliding scale coverage 4. History of right breast CA status post lumpectomy with subsequent adjuvant chemo and radiation therapy patient has remained in remission for over 10 years 5. Morbid obesity with BMI of 50 6. Mild persistent asthma currently stable 7. Obstructive sleep apnea patient is on CPAP at night 8. Hypertension-blood pressure controlled, home medications continued with dose adjustment as needed 9. Depression with anxiety 10. DVT prophylaxis; heparin Code Visit Inpatient E&M: 99882 Subs Hosp L3
[2017-08-16] MEDS: NYSTATIN 500,000 UNIT/5 ML UDC 500000 UNIT PO ×4 (10:05→22:34)
[2017-08-16] MEDS: 0.9% Normal Saline 1,000 ML 100 ML IV ×2 (10:05→19:23)
[2017-08-16] MEDS: Multivitamins,Therapeutic Tablet 1 TABLET PO (10:05)
[2017-08-16] MEDS: Glucerna Shake 120 ML LIQUID PO ×3 (10:05→17:20)
[2017-08-16] MEDS: Calcium (Elemental) 500 MG Tablet PO ×2 (10:05→17:24)
[2017-08-16] MEDS: Pantoprazole Sodium 40 MG Tablet PO ×2 (10:06→22:27)
[2017-08-16] MEDS: Loratadine 10 MG Tablet 5 MG PO (10:06)
[2017-08-16] MEDS: Fluticasone 0.05% 1 SPRAY NASAL.SRY 2 SPRAY NASAL (10:07)
[2017-08-16] MEDS: Ceftriaxone 1 GM/50 ML BAG IV (10:08)
[2017-08-16 10:40] LABS: Vitamin B12 562 pg/mL (211-911)
[2017-08-16 10:46] LABS: Bedside Glucose 171 mg/dL (70-110)
--- NOTE | 2017-08-16 11:01 | CASEMGMT ---
JASWINDER PLASCENCIA Face to Face with patient for initial transition planning/care coordination assessment. JASWINDER PLASCENCIA introduced self and role at [facility]. Patient lying in bed, alert and oriented. Patient willing to participate in assessment and is able to answer all questions appropriately. Care providers, pharmacy, and demographics verified. See link attached. Patient states she sees Dr. Carias, candy dipper. Patient wishes to discharge home, denies need for home health at this time. Patient requesting scripts for shower chair and rollator. JASWINDER PLASCENCIA will assist with obtaining scripts and preferred DME is [employer]. Patient states she has no further needs or concerns at this time. CM to follow for discharge planning needs that may arise. Disposition Plan: Patient to discharge home with family support and follow-up plans in place. JASWINDER PLASCENCIA will assist with DME needs.
[2017-08-16] MEDS: Nadolol 40 MG Tablet PO (17:19)
[2017-08-16 17:20] LABS: Bedside Glucose 123 mg/dL (70-110)
[2017-08-16] MEDS: CLARIFY ORDER NOTE ×2 (19:46)
[2017-08-16] MEDS: Zolpidem Tartrate 5 MG Tablet PO (22:26)
[2017-08-16] MEDS: Pramipexole Di-HCl 0.5 MG Tablet PO (22:27)
[2017-08-17] VITALS (8 sets, daily range): BP systolic 131–151; BP diastolic 70–85; PULSE 58–80; RESP 14–20; TEMP 36.7–37; O2SAT 93–96
[2017-08-17] MEDS: Ipratropium/Albuterol Sulfate 3 ML AMPUL.NEB INHALATION ×4 (02:55→19:12)
[2017-08-17] MEDS: Nystatin Powder 15gm Bottle 1 APPLIC TOPICAL ×3 (05:47→22:27)
[2017-08-17] MEDS: 0.9% Normal Saline 1,000 ML 100 ML IV ×2 (05:48→17:39)
[2017-08-17 07:21] LABS: Bedside Glucose 90 mg/dL (70-110)
[2017-08-17] MEDS: Glucerna Shake 120 ML LIQUID PO ×3 (08:33→17:39)
[2017-08-17] MEDS: Multivitamins,Therapeutic Tablet 1 TABLET PO (08:33)
[2017-08-17] MEDS: Nadolol 40 MG Tablet PO (08:33)
[2017-08-17] MEDS: Calcium (Elemental) 500 MG Tablet PO ×2 (08:34→17:39)
[2017-08-17] MEDS: Loratadine 10 MG Tablet 5 MG PO (08:34)
[2017-08-17] MEDS: NYSTATIN 500,000 UNIT/5 ML UDC 500000 UNIT PO ×4 (08:35→22:26)
[2017-08-17] MEDS: Pantoprazole Sodium 40 MG Tablet PO ×2 (08:36→22:26)
[2017-08-17] MEDS: Fluticasone 0.05% 1 SPRAY NASAL.SRY 2 SPRAY NASAL (08:38)
[2017-08-17] MEDS: Acetaminophen 500 MG Tablet PO ×3 (08:41→20:38)
--- NOTE | 2017-08-17 10:21 | PCM.PN.HOSP ---
Patient Problems: Active and Suspected Problems Fever (Acute) Encephalopathy (Acute) Subjective: Patient respiratory panel came back positive for rhinovirus. Subsequently the respiratory isolation. Patient has remained afebrile for the past 24 hours. Cultures obtained on admission still pending. Objective: GENERAL: Appears ill looking HEENT: Clear conjunctiva, moist oral mucosa NECK; supple, normal thyroid, no distended JVD. CHEST: Diminished to auscultation bilaterally, HEART: Regular S1 S2, no audible murmurs ABDOMEN: soft, non-tender, normoactive bowel sounds, RECTAL: deferred EXTREMITIES: No edema, no clubbing, no cyanosis. 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 Vitals/I&O's: Vital Signs Temp Pulse Resp BP Pulse Ox 98.0 F 58 L 16 131/71 H 95 08/17/17 03:10 08/17/17 07:54 08/17/17 07:54 08/17/17 03:10 08/17/17 07:54 Oxygen Flow Rate (L/min) 2 Oxygen Delivery Method CPAP Weight: 133.4 kg Body Mass Index (BMI) 50.5 Intake and Output for Last 24 Hours 08/15/17 08/16/17 08/17/17 23:59 23:59 23:59 Intake Total 3076 / 3076 955 / 955 Output Total 2150 / 2150 Balance 926 / 926 955 / 955 Microbiology Past 72 Hours 08/15/17 23:40 Mucosa - Nose Respiratory Panel (PCR) - Final Rhinovirus 08/15/17 23:40 Interface Orders Influenza Types A,B Direct FA (RODRIGO) - Final Laboratory Results 08/15/17 20:20: Vitamin B12 562 08/16/17 10:37: POC Glucose 171 H 08/16/17 17:16: POC Glucose 123 H 08/17/17 07:14: POC Glucose 90 Current Medications Acetaminophen (Tylenol) 500 mg PO Q4H PRN PRN PRN Reason: PAIN Last Admin: 08/17/17 08:41 Dose: 500 mg Albuterol/Ipratropium (Duoneb) 3 ml INHALATION Q4H.RT STACY Last Admin: 08/17/17 07:53 Dose: 3 ml Calcium Carbonate (Os-Lance 500) 500 mg PO BIDCM [facility] Last Admin: 08/17/17 08:34 Dose: 500 mg Dicyclomine HCl (Bentyl) 10 mg PO BID PRN PRN PRN Reason: ABD CRAMPS Ergocalciferol (Vitamin D) 50,000 unit PO SUWE [facility] Fluconazole (Fluconazole) 150 mg PO SuWe@1000 [facility] Fluticasone Propionate (Flonase Nasal [place]) 2 spray NASAL DAILY [facility] Last Admin: 08/17/17 08:38 Dose: 2 spray Heparin Sodium (Porcine) (Heparin Na) 5,000 unit SC Q8 [facility] Last Admin: 08/17/17 05:47 Dose: 5,000 units Hydrochlorothiazide (Hydrochlorothiazide) 12.5 mg PO DAILY PRN PRN PRN Reason: Swelling Ceftriaxone Sodium (Rocephin) 1 gm in 50 mls @ 100 mls/hr IV Q24 [facility] Last Admin: 08/16/17 10:08 Dose: 100 mls/hr Sodium Chloride () 1,000 mls @ 100 mls/hr IV .Q10H [facility] Last Admin: 08/17/17 05:48 Dose: 100 mls/hr Insulin Human Regular (Humulin R U-500 (Bkc)) 0.17 ml SC BIDCM [facility] Last Admin: 08/17/17 08:48 Dose: Not Given Loratadine (Claritin) 5 mg PO DAILY [facility] Last Admin: 08/17/17 08:34 Dose: 5 mg Magnesium Hydroxide (Milk Of Magnesia) 30 ml PO DAILY PRN PRN PRN Reason: Constipation Multivitamins (Multivitamin) 1 tablet PO DAILYCM [facility] Last Admin: 08/17/17 08:33 Dose: 1 tablet Nadolol (Corgard) 40 mg PO DAILY [facility] Last Admin: 08/17/17 08:33 Dose: 40 mg Nutritional Formula (Lactose Free) (Glucerna Shake) 120 ml PO TIDCM [facility] Last Admin: 08/17/17 08:33 Dose: 120 ml Nystatin (Nystatin) 500,000 unit PO 4X/DAY [facility] Last Admin: 08/17/17 08:35 Dose: 500,000 unit Nystatin (Mycostatin Powder) 1 applic TOPICAL TID [facility] PRN Reason: Protocol Last Admin: 08/17/17 05:47 Dose: 1 applicatio Ondansetron HCl (Zofran Odt) 4 mg PO Q6H PRN PRN PRN Reason: NAUSEA Pantoprazole Sodium (Protonix) 40 mg PO BID [facility] Last Admin: 08/17/17 08:36 Dose: 40 mg Paroxetine HCl (Paxil) 40 mg PO DAILY [facility] Last Admin: 08/17/17 08:42 Dose: 40 mg Pramipexole Dihydrochloride (Mirapex) 0.5 mg PO QHS [facility] Last Admin: 08/16/17 22:27 Dose: 0.5 mg Sodium Chloride () 5 - 30 ml IV UD PRN PRN Reason: SALINE FLUSH Zolpidem Tartrate (Ambien (Generic)) 5 mg PO QHS PRN PRN PRN Reason: INSOMNIA Last Admin: 08/16/17 22:26 Dose: 5 mg Assessment/Plan Active and Suspected Problems Fever (Acute) Encephalopathy (Acute) This 72-year-old lady with multiple comorbidities admitted with altered mental status in addition to subjective fever as well as chills also suspicion of acute infectious etiology however source cannot be found it was felt patient probably had acute cystitis started on Rocephin and admitted to regular nursing floor 1. Acute encephalopathy secondary to suspected infectious encephalopathy rhinovirus infection. Cultures were however obtained from blood as well as CSF results pending 2. Hypertension-blood pressure controlled, home medications continued with dose adjustment as needed 3. Diabetes mellitus type 2: Patient is on long-acting insulin; did continue also placed on Accu-Cheks before meals and at bedtime with sliding scale coverage 4. History of right breast CA status post lumpectomy with subsequent adjuvant chemo and radiation therapy patient has remained in remission for over 10 years 5. Morbid obesity with BMI of 50 6. Mild persistent asthma currently stable 7. Obstructive sleep apnea patient is on CPAP at night 8. Hypertension-blood pressure controlled, home medications continued with dose adjustment as needed 9. Depression with anxiety 10. DVT prophylaxis; heparin Code Visit Inpatient E&M: 25632 Subs Hosp L2
--- NOTE | 2017-08-17 10:25 | PN_ITS ---
Patient Problems: Active and Suspected Problems Fever (Acute) Encephalopathy (Acute) Subjective: Patient respiratory panel came back positive for rhinovirus. Subsequently the respiratory isolation. Patient has remained afebrile for the past 24 hours. Cultures obtained on admission still pending. Objective: GENERAL: Appears ill looking HEENT: Clear conjunctiva, moist oral mucosa NECK; supple, normal thyroid, no distended JVD. CHEST: Diminished to auscultation bilaterally, HEART: Regular S1 S2, no audible murmurs ABDOMEN: soft, non-tender, normoactive bowel sounds, RECTAL: deferred EXTREMITIES: No edema, no clubbing, no cyanosis. 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 Vitals/I&O's: Vital Signs Temp Pulse Resp BP Pulse Ox 98.0 F 58 L 16 131/71 H 95 08/17/17 03:10 08/17/17 07:54 08/17/17 07:54 08/17/17 03:10 08/17/17 07:54 Oxygen Flow Rate (L/min) 2 Oxygen Delivery Method CPAP Weight: 133.4 kg Body Mass Index (BMI) 50.5 Intake and Output for Last 24 Hours 08/15/17 08/16/17 08/17/17 23:59 23:59 23:59 Intake Total 3076 / 3076 955 / 955 Output Total 2150 / 2150 Balance 926 / 926 955 / 955 Microbiology Past 72 Hours 08/15/17 23:40 Mucosa - Nose Respiratory Panel (PCR) - Final Rhinovirus 08/15/17 23:40 Interface Orders Influenza Types A,B Direct FA (RODRIGO) - Final Laboratory Results 08/15/17 20:20: Vitamin B12 562 08/16/17 10:37: POC Glucose 171 H 08/16/17 17:16: POC Glucose 123 H 08/17/17 07:14: POC Glucose 90 Current Medications Acetaminophen (Tylenol) 500 mg PO Q4H PRN PRN PRN Reason: PAIN Last Admin: 08/17/17 08:41 Dose: 500 mg Albuterol/Ipratropium (Duoneb) 3 ml INHALATION Q4H.RT STACY Last Admin: 08/17/17 07:53 Dose: 3 ml Calcium Carbonate (Os-Lance 500) 500 mg PO BIDCM [facility] Last Admin: 08/17/17 08:34 Dose: 500 mg Dicyclomine HCl (Bentyl) 10 mg PO BID PRN PRN PRN Reason: ABD CRAMPS Ergocalciferol (Vitamin D) 50,000 unit PO SUWE [facility] Fluconazole (Fluconazole) 150 mg PO SuWe@1000 [facility] Fluticasone Propionate (Flonase Nasal [place]) 2 spray NASAL DAILY [facility] Last Admin: 08/17/17 08:38 Dose: 2 spray Heparin Sodium (Porcine) (Heparin Na) 5,000 unit SC Q8 [facility] Last Admin: 08/17/17 05:47 Dose: 5,000 units Hydrochlorothiazide (Hydrochlorothiazide) 12.5 mg PO DAILY PRN PRN PRN Reason: Swelling Ceftriaxone Sodium (Rocephin) 1 gm in 50 mls @ 100 mls/hr IV Q24 [facility] Last Admin: 08/16/17 10:08 Dose: 100 mls/hr Sodium Chloride () 1,000 mls @ 100 mls/hr IV .Q10H [facility] Last Admin: 08/17/17 05:48 Dose: 100 mls/hr Insulin Human Regular (Humulin R U-500 (Bkc)) 0.17 ml SC BIDCM [facility] Last Admin: 08/17/17 08:48 Dose: Not Given Loratadine (Claritin) 5 mg PO DAILY [facility] Last Admin: 08/17/17 08:34 Dose: 5 mg Magnesium Hydroxide (Milk Of Magnesia) 30 ml PO DAILY PRN PRN PRN Reason: Constipation Multivitamins (Multivitamin) 1 tablet PO DAILYCM [facility] Last Admin: 08/17/17 08:33 Dose: 1 tablet Nadolol (Corgard) 40 mg PO DAILY [facility] Last Admin: 08/17/17 08:33 Dose: 40 mg Nutritional Formula (Lactose Free) (Glucerna Shake) 120 ml PO TIDCM [facility] Last Admin: 08/17/17 08:33 Dose: 120 ml Nystatin (Nystatin) 500,000 unit PO 4X/DAY [facility] Last Admin: 08/17/17 08:35 Dose: 500,000 unit Nystatin (Mycostatin Powder) 1 applic TOPICAL TID [facility] PRN Reason: Protocol Last Admin: 08/17/17 05:47 Dose: 1 applicatio Ondansetron HCl (Zofran Odt) 4 mg PO Q6H PRN PRN PRN Reason: NAUSEA Pantoprazole Sodium (Protonix) 40 mg PO BID [facility] Last Admin: 08/17/17 08:36 Dose: 40 mg Paroxetine HCl (Paxil) 40 mg PO DAILY [facility] Last Admin: 08/17/17 08:42 Dose: 40 mg Pramipexole Dihydrochloride (Mirapex) 0.5 mg PO QHS [facility] Last Admin: 08/16/17 22:27 Dose: 0.5 mg Sodium Chloride () 5 - 30 ml IV UD PRN PRN Reason: SALINE FLUSH Zolpidem Tartrate (Ambien (Generic)) 5 mg PO QHS PRN PRN PRN Reason: INSOMNIA Last Admin: 08/16/17 22:26 Dose: 5 mg Assessment/Plan Active and Suspected Problems Fever (Acute) Encephalopathy (Acute) This 72-year-old lady with multiple comorbidities admitted with altered mental status in addition to subjective fever as well as chills also suspicion of acute infectious etiology however source cannot be found it was felt patient probably had acute cystitis started on Rocephin and admitted to regular nursing floor 1. Acute encephalopathy secondary to suspected infectious encephalopathy rhinovirus infection. Cultures were however obtained from blood as well as CSF results pending 2. Hypertension-blood pressure controlled, home medications continued with dose adjustment as needed 3. Diabetes mellitus type 2: Patient is on long-acting insulin; did continue also placed on Accu-Cheks before meals and at bedtime with sliding scale coverage 4. History of right breast CA status post lumpectomy with subsequent adjuvant chemo and radiation therapy patient has remained in remission for over 10 years 5. Morbid obesity with BMI of 50 6. Mild persistent asthma currently stable 7. Obstructive sleep apnea patient is on CPAP at night 8. Hypertension-blood pressure controlled, home medications continued with dose adjustment as needed 9. Depression with anxiety 10. DVT prophylaxis; heparin Code Visit Inpatient E&M: 38790 Subs Hosp L2
[2017-08-17] MEDS: Ceftriaxone 1 GM/50 ML BAG IV (11:26)
[2017-08-17 12:51] LABS: Bedside Glucose 150 mg/dL (70-110)
[2017-08-17 17:31] LABS: Bedside Glucose 117 mg/dL (70-110)
[2017-08-17] MEDS: Pramipexole Di-HCl 0.5 MG Tablet PO (22:26)
[2017-08-17] MEDS: Zolpidem Tartrate 5 MG Tablet PO (22:26)
[2017-08-17 22:50] LABS: Bedside Glucose 73 mg/dL (70-110)
[2017-08-18 00:06] LABS: Bedside Glucose 117 mg/dL (70-110)
[2017-08-18] MEDS: 0.9% Normal Saline 1,000 ML 100 ML IV (03:37)
[2017-08-18 03:44] VITALS: BP 142/70; PULSE 65; RESP 22; TEMP 36.8; O2SAT 98
[2017-08-18] MEDS: Acetaminophen 500 MG Tablet PO (05:21)
[2017-08-18] MEDS: Nystatin Powder 15gm Bottle 1 APPLIC TOPICAL (05:22)
[2017-08-18 06:36] LABS: Bedside Glucose 96 mg/dL (70-110)
[2017-08-18 07:19] VITALS: PULSE 74; RESP 16; O2SAT 96
[2017-08-18] MEDS: Ipratropium/Albuterol Sulfate 3 ML AMPUL.NEB INHALATION (07:19)
[2017-08-18 08:20] VITALS: BP 126/81; PULSE 74; RESP 18; TEMP 36.9; O2SAT 94
[2017-08-18] MEDS: Nadolol 40 MG Tablet PO (08:27)
[2017-08-18] MEDS: Glucerna Shake 120 ML LIQUID PO (08:27)
[2017-08-18] MEDS: FLUCONAZOLE 150 MG TABLET PO (08:27)
[2017-08-18] MEDS: Loratadine 10 MG Tablet 5 MG PO (08:27)
[2017-08-18] MEDS: Pantoprazole Sodium 40 MG Tablet PO (08:27)
[2017-08-18] MEDS: Multivitamins,Therapeutic Tablet 1 TABLET PO (08:28)
[2017-08-18] MEDS: Calcium (Elemental) 500 MG Tablet PO (08:28)
[2017-08-18] MEDS: Fluticasone 0.05% 1 SPRAY NASAL.SRY 2 SPRAY NASAL (08:28)
[2017-08-18] MEDS: NYSTATIN 500,000 UNIT/5 ML UDC 500000 UNIT PO (08:42)
--- NOTE | 2017-08-18 09:56 | PCM.DC ---
- Discharge Diagnoses Current Active Problems: Current Active and Chronic Problems Fever (Acute) Encephalopathy (Acute) Your food should be the consistency of: Regular Allergies/Adverse Reactions: Allergies adhesive tape Allergy (Verified 08/15/17 16:16) Unknown listed on pcp allergy list cefadroxil [From Duricef] Allergy (Verified 08/15/17 20:06) Unknown mesalamine [From Asacol] Allergy (Verified 08/15/17 16:16) Unknown listed on pcp allergy list omalizumab [From Xolair] Allergy (Verified 08/15/17 16:16) Unknown listed on pcp allergy list Sulfa (Sulfonamide Antibiotics) Allergy (Verified 08/15/17 16:16) Unknown Medications to take at Discharge Budesonide [Rhinocort Allergy] 2 spray NS TID 06/01/17 Calcium (Elemental) [Os-Lance 500] 500 mg PO BID 06/01/17 Cholecalciferol (Vitamin D3) [Vitamin D3] 50,000 unit PO SUWE 06/01/17 Dicyclomine HCl [Bentyl] 10 mg PO BID PRN PRN 06/01/17 Insulin Regular, Human [Humulin R U-500 Kwikpen] 85 unit SQ BID 06/01/17 Lansoprazole [Prevacid] 30 mg PO BID 06/01/17 Levocetirizine Dihydrochloride [Xyzal] 5 mg PO DAILY 06/01/17 Methylphenidate HCl [Methylphenidate ER] 20 mg PO BID 06/01/17 Nystatin Powder [Mycostatin Powder] 1 applic TOPICAL 4X/DAY PRN 06/01/17 Ondansetron [Zofran Odt] 4 mg PO Q6H PRN PRN 06/01/17 Paroxetine HCl [Paxil] 40 mg PO DAILY 06/01/17 Pramipexole Di-HCl [Mirapex] 0.5 mg PO QHS 06/01/17 Nadolol 1 tab PO DAILY #0 06/04/17 Carbamazepine 200 mg PO BID 06/11/17 Hydrochlorothiazide 12.5 mg PO PRN PRN 06/11/17 Multivitamin [Multiple Vitamins] 1 each PO DAILY 06/11/17 Fluconazole [Diflucan] 150 mg PO QWEEK 08/15/17 Primary Care Physician: Senait Jay MD [Primary Care Provider] - Please follow up with your Primary Care Physician in: in 1-2 weeks Proposed Discharge Date: 08/18/17
--- NOTE | 2017-08-18 09:59 | PCM.DC.SUM ---
Discharge Date and Diagnosis - Problem List Patient Problems: Active and Suspected Problems Acute bronchitis due to Rhinovirus (Acute) Fever (Acute) Encephalopathy (Acute) Date of Admission: 08/15/17 Date of Discharge: 08/18/17 - Primary Discharge Diagnosis Active and Suspected Problems Acute bronchitis due to Rhinovirus (Acute) Fever (Acute) Encephalopathy (Acute) - Secondary Discharge Diagnosis Chronic Problems Celiac disease (Chronic) Asthma (Chronic) BMI 50.0-59.9, adult (Chronic) History of right breast cancer (Chronic) Diabetes mellitus, type II (Chronic) Anxiety and depression (Chronic) Hospital Course and Treatment Imaging Results: Clinical Impression(s) from Imaging Studies Brain CT 08/15/17 16:24 IMPRESSION: No change. No acute adenopathy. Chronic white matter disease. Electronically Signed: Jose Kruse MD at 18:32 EDT , Service support , Chest X-Ray 08/15/17 16:24 IMPRESSION: No evidence for acute chest disease. Electronically Signed: Jose Kruse MD at 17:11 EDT , Service support , Operations: None Summary of Care Provided: This 72-year-old lady with multiple comorbidities admitted with altered mental status in addition to subjective fever as well as chills also suspicion of acute infectious etiology however source cannot be found it was felt patient probably had acute cystitis started on Rocephin and admitted to regular nursing floor 1. Acute encephalopathy secondary to suspected infectious encephalopathy rhinovirus infection. Cultures were however obtained from blood as well as CSF which came back negative. Patient did improve with therapy was discharged 2 days after her admission instructed to follow-up with PCP within 5-7 days 2. Hypertension-blood pressure controlled, home medications continued with dose adjustment as needed 3. Diabetes mellitus type 2: Patient is on long-acting insulin; did continue also placed on Accu-Cheks before meals and at bedtime with sliding scale coverage 4. History of right breast CA status post lumpectomy with subsequent adjuvant chemo and radiation therapy patient has remained in remission for over 10 years 5. Morbid obesity with BMI of 50 6. Mild persistent asthma currently stable 7. Obstructive sleep apnea patient is on CPAP at night 8. Hypertension-blood pressure controlled, home medications continued with dose adjustment as needed 9. Depression with anxiety 10. DVT prophylaxis; heparin Discharge Diet: Low fat/ Low Cholesterol Home Medications: Medications to take at Discharge Budesonide [Rhinocort Allergy] 2 spray NS TID 06/01/17 Calcium (Elemental) [Os-Lance 500] 500 mg PO BID 06/01/17 Cholecalciferol (Vitamin D3) [Vitamin D3] 50,000 unit PO SUWE 06/01/17 Dicyclomine HCl [Bentyl] 10 mg PO BID PRN PRN 06/01/17 Insulin Regular, Human [Humulin R U-500 Kwikpen] 85 unit SQ BID 06/01/17 Lansoprazole [Prevacid] 30 mg PO BID 06/01/17 Levocetirizine Dihydrochloride [Xyzal] 5 mg PO DAILY 06/01/17 Methylphenidate HCl [Methylphenidate ER] 20 mg PO BID 06/01/17 Nystatin Powder [Mycostatin Powder] 1 applic TOPICAL 4X/DAY PRN 06/01/17 Ondansetron [Zofran Odt] 4 mg PO Q6H PRN PRN 06/01/17 Paroxetine HCl [Paxil] 40 mg PO DAILY 06/01/17 Pramipexole Di-HCl [Mirapex] 0.5 mg PO QHS 06/01/17 Nadolol 1 tab PO DAILY #0 06/04/17 Carbamazepine 200 mg PO BID 06/11/17 Hydrochlorothiazide 12.5 mg PO PRN PRN 06/11/17 Multivitamin [Multiple Vitamins] 1 each PO DAILY 06/11/17 Fluconazole [Diflucan] 150 mg PO QWEEK 08/15/17 Primary Care Physician: Senait Jay MD [Primary Care Provider] - Please follow up with your Primary Care Physician in: in 1-2 weeks Meaningful Use Info Meaningful Use Diagnoses (Choose all that apply): None applicable Code Visit Inpatient E&M: 67118 Disch Hosp
--- NOTE | 2017-08-18 10:11 | DS.PCM_ITS ---
Discharge Date and Diagnosis - Problem List Patient Problems: Active and Suspected Problems Acute bronchitis due to Rhinovirus (Acute) Fever (Acute) Encephalopathy (Acute) Date of Admission: 08/15/17 Date of Discharge: 08/18/17 - Primary Discharge Diagnosis Active and Suspected Problems Acute bronchitis due to Rhinovirus (Acute) Fever (Acute) Encephalopathy (Acute) - Secondary Discharge Diagnosis Chronic Problems Celiac disease (Chronic) Asthma (Chronic) BMI 50.0-59.9, adult (Chronic) History of right breast cancer (Chronic) Diabetes mellitus, type II (Chronic) Anxiety and depression (Chronic) Hospital Course and Treatment Imaging Results: Clinical Impression(s) from Imaging Studies Brain CT 08/15/17 16:24 IMPRESSION: No change. No acute adenopathy. Chronic white matter disease. Electronically Signed: Jose Kruse MD at 18:32 EDT , Service support , Chest X-Ray 08/15/17 16:24 IMPRESSION: No evidence for acute chest disease. Electronically Signed: Jose Kruse MD at 17:11 EDT , Service support , Operations: None Summary of Care Provided: This 72-year-old lady with multiple comorbidities admitted with altered mental status in addition to subjective fever as well as chills also suspicion of acute infectious etiology however source cannot be found it was felt patient probably had acute cystitis started on Rocephin and admitted to regular nursing floor 1. Acute encephalopathy secondary to suspected infectious encephalopathy rhinovirus infection. Cultures were however obtained from blood as well as CSF which came back negative. Patient did improve with therapy was discharged 2 days after her admission instructed to follow-up with PCP within 5-7 days 2. Hypertension-blood pressure controlled, home medications continued with dose adjustment as needed 3. Diabetes mellitus type 2: Patient is on long-acting insulin; did continue also placed on Accu-Cheks before meals and at bedtime with sliding scale coverage 4. History of right breast CA status post lumpectomy with subsequent adjuvant chemo and radiation therapy patient has remained in remission for over 10 years 5. Morbid obesity with BMI of 50 6. Mild persistent asthma currently stable 7. Obstructive sleep apnea patient is on CPAP at night 8. Hypertension-blood pressure controlled, home medications continued with dose adjustment as needed 9. Depression with anxiety 10. DVT prophylaxis; heparin Discharge Diet: Low fat/ Low Cholesterol Home Medications: Medications to take at Discharge Budesonide [Rhinocort Allergy] 2 spray NS TID 06/01/17 Calcium (Elemental) [Os-Lance 500] 500 mg PO BID 06/01/17 Cholecalciferol (Vitamin D3) [Vitamin D3] 50,000 unit PO SUWE 06/01/17 Dicyclomine HCl [Bentyl] 10 mg PO BID PRN PRN 06/01/17 Insulin Regular, Human [Humulin R U-500 Kwikpen] 85 unit SQ BID 06/01/17 Lansoprazole [Prevacid] 30 mg PO BID 06/01/17 Levocetirizine Dihydrochloride [Xyzal] 5 mg PO DAILY 06/01/17 Methylphenidate HCl [Methylphenidate ER] 20 mg PO BID 06/01/17 Nystatin Powder [Mycostatin Powder] 1 applic TOPICAL 4X/DAY PRN 06/01/17 Ondansetron [Zofran Odt] 4 mg PO Q6H PRN PRN 06/01/17 Paroxetine HCl [Paxil] 40 mg PO DAILY 06/01/17 Pramipexole Di-HCl [Mirapex] 0.5 mg PO QHS 06/01/17 Nadolol 1 tab PO DAILY #0 06/04/17 Carbamazepine 200 mg PO BID 06/11/17 Hydrochlorothiazide 12.5 mg PO PRN PRN 06/11/17 Multivitamin [Multiple Vitamins] 1 each PO DAILY 06/11/17 Fluconazole [Diflucan] 150 mg PO QWEEK 08/15/17 Primary Care Physician: Senait Jay MD [Primary Care Provider] - Please follow up with your Primary Care Physician in: in 1-2 weeks Meaningful Use Info Meaningful Use Diagnoses (Choose all that apply): None applicable Code Visit Inpatient E&M: 24903 Disch Hosp
[2017-08-20 02:58] LABS: Rapid Plasmin Reagin (RPR) NONREACTIVE (NONREACTIVE)
== END 2017-08-18 10:50 | disposition home or self-care (01) | DRG 202 ==
LOC: ED 16:32 → MS3 19:16
PROVIDERS: Internal Medicine; Emergency Provider Emergency Medicine; Family Provider Internal Medicine; PCP Internal Medicine; Visit Provider Internal Medicine
DX: J20.6 Acute bronchitis due to rhinovirus (principal); G93.49 Other encephalopathy; Z68.43 Body mass index [BMI] 50.0-59.9, adult; E11.9 Type 2 diabetes mellitus without complications; E66.01 Morbid (severe) obesity due to excess calories; I10 Essential (primary) hypertension; K90.0 Celiac disease; J45.30 Mild persistent asthma, uncomplicated; G47.33 Obstructive sleep apnea (adult) (pediatric); Z85.3 Personal history of malignant neoplasm of breast; Z92.3 Personal history of irradiation; Z92.21 Personal history of antineoplastic chemotherapy; Z87.891 Personal history of nicotine dependence; Z79.4 Long term (current) use of insulin
CPT/HCPCS: 36415; 36600; 62270; 70450; 71045; 80048; 80053; 81001; 82140; 82607; 82746; 82803; 82962; 84443; 84484; 85025; 86592; 87040; 87070; 87205; 87633; 87804; 93005; 94640; 97116; 97162; 97165; 97802; 99285; J7030; A4216; J3490

== ENCOUNTER → 2017-11-22 16:48 | Outpatient (CLI) | payer MEDICARE, SELFPAY ==
[2017-11-22 16:54] LABS: Red Blood Cells-Urine 0 SEEN /hpf (0-5)
[2017-11-22 18:20] LABS: Color, Urine Yellow (Yellow); Glucose, Dipstick Normal (Normal); Ketone-Dipstick Negative (Negative); Leukocyte Esterase-Dipstick 500 /ul (Negative); Nitrite-Dipstick Positive (Negative); Occult Blood-Urine 10 /ul (Negative); Protein-Dipstick 30 mg/dl (Negative); Specific Gravity, Urine 1.025 (1.002-1.030); Urine Clarity Sl. Cloudy (Clear); Urine Urobilinogen 1 mg/dl (Normal)
[2017-11-22 18:24] LABS: Urine Bilirubin Dipstick 1 mg/dL (Negative)
[2017-11-22 19:31] LABS: White Blood Cells 50-100 SEEN /hpf (0-5)
[2017-11-22 19:37] LABS: Bacteria 3+ /hpf (None Seen); Mucous, Urine 1+ /hpf (<or=2+); Squamous Epithelial Cells - UA 10-25 SEEN /hpf (5-10)
== END ==
PROVIDERS: Family Provider Internal Medicine; PCP Internal Medicine; Visit Provider Internal Medicine
DX: N39.0 Urinary tract infection, site not specified (principal)
CPT/HCPCS: 81001; 87086; 87088

== ENCOUNTER 2017-11-24 13:28 | Inpatient (IN) | payer MEDICARE, SELFPAY ==
[2017-11-24] VITALS (11 sets, daily range): BP systolic 138–172; BP diastolic 65–84; PULSE 64–78; RESP 16–22; TEMP 35.9–36.6; O2SAT 84–98; BMI 51.8; BMI 51.9
--- NOTE | 2017-11-24 13:52 | EKG12_ITS ---
Test Reason : CP Blood Pressure : / mmHG Vent. Rate : 075 BPM Atrial Rate : 075 BPM P-R Int : 000 ms QRS Dur : 072 ms QT Int : 392 ms P-R-T Axes : 000 -03 068 degrees QTc Int : 437 ms Abnormal ECG Confirmed by NEEL GARCIA ([id number]), makeup editor HELLEN GAN ([id number]) on 11/29/2017 10:54:30 AM Referred By: Senait Jay Confirmed By:NEEL GARCIA
--- NOTE | 2017-11-24 13:55 | RAD_ITS ---
STUDY: X-RAY CHEST REASON FOR EXAM: Female, 72 years old. Dyspnea and shortness of breath. TECHNIQUE: Single AP portable view of the chest. COMPARISON: Comparison is made with prior study dated August 15, 2017. FINDINGS: EKG electrodes are seen. Surgical clips are seen in the right axillary region. Mild increased markings at the lung bases. This most likely represents scarring. There has been essentially no change since prior study. There is no demonstrated pleural abnormality. Normal size heart. Normal mediastinum and tanna. Normal visualized pulmonary arteries. There is atherosclerotic calcification of the aortic arch with tortuosity. There are diffuse degenerative changes of the visualized thoracic spine. Normal visualized ribs, clavicles, and shoulders. There is no demonstrated abnormality of the visualized soft tissue structures of the upper abdomen. RAD/Chest 1 View (Portable) IMPRESSION: Stable mild degree of increased markings at the lung bases suggestive of scarring. No acute abnormality is seen. Electronically Signed: Salazar Garcia MD at 14:53 EDT Tel [phone], Service support ,
--- NOTE | 2017-11-24 13:59 | PCA ---
PRINTED OLD EKG
[2017-11-24] MEDS: Ipratropium/Albuterol Sulfate 3 ML AMPUL.NEB INHALATION ×2 (14:00→19:40)
[2017-11-24] MEDS: Albuterol 2.5 MG/3 ML VIAL.NEB. INHALATION ×2 (14:00)
[2017-11-24] MEDS: MethylPREDNISolone 125 MG/2 ML Vial IV (14:07)
[2017-11-24 14:48] LABS: Color, Urine Yellow (Yellow); Glucose, Dipstick Normal (Normal); Ketone-Dipstick 5 mg/dl (Negative); Leukocyte Esterase-Dipstick 500 /ul (Negative); Nitrite-Dipstick Negative (Negative); Occult Blood-Urine 10 /ul (Negative); Protein-Dipstick 30 mg/dl (Negative); Specific Gravity, Urine 1.025 (1.002-1.030); Urine Bilirubin Dipstick Negative (Negative); Urine Clarity Sl. Cloudy (Clear); Urine Urobilinogen 1 mg/dl (Normal)
[2017-11-24 15:01] LABS: Red Blood Cells-Urine 0-5 SEEN /hpf (0-5); Squamous Epithelial Cells - UA 5-10 SEEN /hpf (5-10); White Blood Cells 10-25 SEEN /hpf (0-5)
[2017-11-24 15:02] LABS: Mucous, Urine RARE /hpf (<or=2+)
[2017-11-24 15:03] LABS: Bacteria 1+ /hpf (None Seen)
[2017-11-24 15:22] LABS: Absolute Lymphocyte Count 2.26 X10^3/ul (0.83-4.51); Absolute Neutrophil Count 6.9 X10^3/uL (2.0-7.7); Basophil# 0.06 X10^3/uL; Basophil% 0.5 % (0-1); Eosinophil# 1.35 X10^3/uL; Hematocrit 42.6 % (37-47); Hemoglobin 14.3 g/dl (12.0-15.0); Lymphocyte # 2.26 X10^3/ul (4.0); Lymphocyte % 20.1 % (19-41); Mean Corp Hgb Conc 33.6 g/gl (32-36); Mean Corpuscular Hgb 29.4 pg (27.0-32.0); Mean Corpuscular Volume 87.5 fL (81-99); Mean Platelet Vol. 10.4 fl (6.2-12.0); Monocyte# 0.67 X10^3/uL; Neutrophil # 6.89 X10^3/uL (2.7-7.7); Neutrophil % 61.1 % (47-70); Platelet Count 176 K/mm3 (150-450); RBC Distribution Width CV 13.7 % (11.6-14.6); RBC Distribution Width SD 43.4 fl (35.1-43.9); Red Blood Count 4.87 M/mm3 (4.2-5.4); White Blood Count 11.3 K/mm3 (4.4-11.0)
[2017-11-24 15:26] LABS: POSITIVE COUNT NO; POSITIVE DIFFERENTIAL NO; POSITIVE MORPHOLOGY NO
[2017-11-24 15:31] LABS: Anion Gap 6 (5-15); BUN 16 mg/dL (7-18); Calcium,Total 9.4 mg/dL (8.5-10.1); Chloride 104 mmol/L (98-107); EST Glomerular Filtration Rate 75 mL/min (>60); Est Glom Filt Rate - Afr Amer 91 mL/min (>60); Estimated Creatinine Clearance 53.36 ml/min; Glucose 137 mg/dL (74-106); Potassium 4.1 mmol/L (3.5-5.1); Sodium Level 139 mmol/L (136-145)
[2017-11-24 15:43] LABS: Lactic Acid 1.2 mmol/L (0.4-2.0)
[2017-11-24] MEDS: levoFLOXacin IV 750 MG/150 ML BAG 100 MG IV (16:48)
--- NOTE | 2017-11-24 16:50 | ED.DCSUM_ITS ---
- ER Visit Summary Date of Service: 11/24/17 Chief Complaint: Shortness of breath History of Present Illness: The patient is a 72 F notes a progressive dyspnea for 6 days. She notes wheezing and states she just cannot take a deep breath. She does note some sputum production. She wears oxygen at night. History of asthma obstructive sleep apnea diabetes hypertension as well as breast cancer. She sees Dr. Watters for pulmonology. She notes sweats but no fevers. No vomiting or diarrhea. Physical Examination: 84% on room air blood pressure 172/84 temperature 97.8 heart rate 78 respirations are 22 Gen: Well-nourished well-developed Head: Normocephalic atraumatic Eyes: Perrl EOMI ENT: TMs clear no rhinorrhea moist mucous membranes Neck: Supple no lymphadenopathy no JVD nontender CVS: Regular rate rhythm no murmurs normal S1-S2 Respiratory: Tachypnea significantly diminished breath sounds with some expiratory wheezing bilaterally Abdomen: Soft nontender nondistended normal bowel sounds no masses Back: Nontender Extremity: Nontender no edema Skin: Normal color no rash Neuro: alert orientated ?3 CN II-XII intact normal strength sensation reflexes gait cerebellar Psych: Normal affect normal mood Test Results: Chest x-ray shows no definite infiltrate. EKG shows a sinus rhythm rate of 75. Troponin is negative. Glucose 137. White blood cell count 11.3. Urinalysis 10-25 white cells 5-10 epithelial cells 1+ bacteria Emergency Department Course and Treatment: Patient received oxygen aerosols Solu -Medrol as well as Levaquin. Plan will be admission into the hospital. Her lung sounds are improved but still significantly diminished Impression: 1. Asthma exacerbation 2. Hypoxemia 3. UTI This note was generated with [employer] dictation software. It may contain incorrect words, spelling, and punctuation that were not noted in review of the chart prior to signing ED Disposition - Plan for ED Patient: Chief Complaint: Shortness of Breath Referrals: Senait Jay MD [Primary Care Provider] -
--- NOTE | 2017-11-24 18:19 | NURSING ---
pt states will bring in cpap
--- NOTE | 2017-11-24 18:35 | NURSING ---
Current diet order addressed with pt- asked if she eats a calorie controlled diet- pt states no she will not- she eats what she wants.
[2017-11-24 18:52] LABS: BNP,B-Type NATRIURETIC PEPTIDE 47.2 pg/mL (0-100)
[2017-11-24 21:21] LABS: Bedside Glucose 360 mg/dL (70-110)
--- NOTE | 2017-11-24 21:21 | PCM.HP.STD ---
Problem List (1) Acute respiratory failure with hypoxia Status: Acute (2) BMI 50.0-59.9, adult Status: Chronic (3) Sleep apnea Status: Acute Qualifiers: Sleep apnea type: obstructive Qualified Code(s): G47.33 - Obstructive sleep apnea (adult) (pediatric) (4) Acute asthma exacerbation Status: Acute Qualifiers: Asthma severity: moderate (5) Diabetes mellitus, type II Status: Chronic Qualifiers: Diabetes mellitus jail insulin use: with jail use Diabetes mellitus complication status: without complication Qualified Code(s): E11.9 - Type 2 diabetes mellitus without complications; Z79.4 - intermediate (current) use of insulin History of Present Illness Date of Admission: 11/24/17 Chief Complaint: Shortness of breath. Patient is a 72 yo WF with history of asthma, presents to ED with gradual worsening of shortness of breath with cough. She has some sputum production with yellow sputum. It came to the point that she was unable to get up and walk, when her daughter came to pick her up to go to shopping. O2 sat was 84% on arrival, with tachypnea / labored breathing. She improved somewhat with bronchodilator. She still needed oxygen supplement to keep the level up. She has home oxygen, but uses at night only, along with CPAP for DORY. WBC is marginally elevated to 11.3, but she is afebrile. CXR is negative for infiltrate. Past Medical History Past Medical History (Chronic Problems): Chronic Problems Celiac disease (Chronic) Asthma (Chronic) BMI 50.0-59.9, adult (Chronic) History of right breast cancer (Chronic) Diabetes mellitus, type II (Chronic) Anxiety and depression (Chronic) Allergies adhesive tape Allergy (Verified 11/24/17 13:31) Unknown listed on pcp allergy list cefadroxil [From Duricef] Allergy (Verified 11/24/17 13:31) Unknown mesalamine [From Asacol] Allergy (Verified 11/24/17 13:31) Unknown listed on pcp allergy list omalizumab [From Xolair] Allergy (Verified 11/24/17 13:31) Unknown listed on pcp allergy list Sulfa (Sulfonamide Antibiotics) Allergy (Verified 11/24/17 13:31) Unknown Home Medications: Ambulatory Orders Medication Instructions Recorded RX: Budesonide [Rhinocort Allergy] 2 spray NS TID 06/01/17 RX: Cholecalciferol (Vitamin D3) 50,000 unit PO SUWE 06/01/17 [Vitamin D3] RX: Dicyclomine HCl [Bentyl] 10 mg PO BID PRN PRN 06/01/17 RX: Insulin Regular, Human 85 unit SQ BID 06/01/17 [Humulin R U-500 Kwikpen] RX: Lansoprazole [Prevacid] 30 mg PO BID 06/01/17 RX: Levocetirizine Dihydrochloride 5 mg PO QHS 06/01/17 [Xyzal] RX: Methylphenidate HCl 20 mg PO BID 06/01/17 [Methylphenidate ER] RX: Paroxetine HCl [Paxil] 40 mg PO DAILY 06/01/17 RX: Pramipexole Di-HCl [Mirapex] 0.5 mg PO QHS 06/01/17 RX: Multivitamin [Multiple 1 each PO DAILY 06/11/17 Vitamins] Montelukast [Singulair] 10 mg PO DAILY 11/24/17 RX: Nadolol 40 mg PO DAILY 11/24/17 Surgical History: - - Rectocele repair. 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 Maternal History Items: Cancer Review of Systems Comment: ROS: In general: Patient has been in fair health, denied of any constitutional symptoms, such as weight loss, or gain, fever, chills, or night sweats. Patient denied of any profound fatigue. HEENT: Unremarkable. Patient denied of any dizziness, chronic headache, blurred vision, double vision, dry mouth, or nasal congestion. CV/respiratory: See HPI. She denied of any chest pain. GI: Patient denied any abdominal pain, nausea, vomiting, diarrhea, constipation, melena, or hematochezia. : Patient denied any significant urinary symptoms. Neurology: Unremarkable. There is no history of seizure as an adult. Psychological: Unremarkable. Endocrine: Unremarkable. Musculoskeletal: Unremarkable. VTE Information - Inpt Only VTE Present on Admission: No VTE Mechan Device Prophylaxis: Thigh High IVETTE Hose VTE Pharm Prophylaxis ordered?: Yes Patient Problems: Active and Suspected Problems Acute respiratory failure with hypoxia (Acute) Objective: In general, patient is a well-nourished and developed adult. HEENT: Head is atraumatic, and normocephalic. Pupils are equal, round, and reactive to light and accommodations. Neck is supple. There is no lymphadenopathy, or thyromegaly. Oral mucosa is pink, and moist. There are no lesions. Heart: Auscultation is normal with regular rhythm and rate. There is no extra heart sounds, or murmurs. S1 and S2 are present. Point of maximal impulse is not displaced. Lungs: Diminished breath sounds with mild wheezing at upper lung holcomb. Abdomen: Abdominal wall is non-tender, and non-distended. There is no palpable mass or organomegaly. Normoactive bowel sounds are present. Extremities: There is no cyanosis or clubbing. Peripheral pulses are palpable. There is trace edema bilaterally. Skin: There are no any skin discoloration or lesions. Neurological: CN II - XII are intact. Sensory and motor functions are grossly normal with no obvious deficit. Cerebellar functions are within normal range. Gait was not tested. - Physical Exam Vital Signs Temp Pulse Resp BP Pulse Ox 96.6 F L 72 20 H 138/65 H 98 11/24/17 17:58 11/24/17 19:40 11/24/17 19:40 11/24/17 17:58 11/24/17 17:58 Oxygen Flow Rate (L/min) 2 Oxygen Delivery Method Nasal Cannula Weight: 292 lb 15.909 oz Body Mass Index (BMI) 51.9 Assessment/Plan All Active Problems Acute respiratory failure with hypoxia (Acute) Acute bronchitis due to Rhinovirus (Acute) Fever (Acute) Encephalopathy (Acute) Staphylococcal pneumonia (Ruled-out) Streptococcal pneumonia (Ruled-out) Acute and chronic respiratory failure with hypoxia (Ruled-out) Cellulitis of right breast (Ruled-out) Sleep apnea (Acute) Influenza (Acute) Acute asthma exacerbation (Acute) Patient is a 72 yo WF with history of asthma, presents to ED with gradual worsening of shortness of breath with cough. She has some sputum production with yellow sputum. It came to the point that she was unable to get up and walk, when her daughter came to pick her up to go to shopping. O2 sat was 84% on arrival, with tachypnea / labored breathing. She improved somewhat with bronchodilator. She still needed oxygen supplement to keep the level up. She has home oxygen, but uses at night only, along with CPAP for DORY. WBC is marginally elevated to 11.3, but she is afebrile. CXR is negative for infiltrate. #1 Asthma exacerbation. Acute hypoxic respiratory failure. Continue BD DuoNeb and albuterol prn. Oxygen supplement. Levaquin 750 mg IV given in ED. Continue 500 mg po qd for URI. Solu Medrol 40 mg IV q8 x 4, then prednisone 40 mg po qd. #2 DM II. Continue Humalin R 25 units bid and add sliding scale insulin. #3 DORY. Continue CPAP HS. #4 HTN. Continue nadolol. VTE ppx: heparin SQ. GI ppx: PPI po. She is full code. Disposition: Home in 2 to 3 days. PT/OT. Code Visit Inpatient E&M: 57204 Init Hosp L3
--- NOTE | 2017-11-24 21:32 | HP.PCM_ITS ---
Problem List (1) Acute respiratory failure with hypoxia Status: Acute (2) BMI 50.0-59.9, adult Status: Chronic (3) Sleep apnea Status: Acute Qualifiers: Sleep apnea type: obstructive Qualified Code(s): G47.33 - Obstructive sleep apnea (adult) (pediatric) (4) Acute asthma exacerbation Status: Acute Qualifiers: Asthma severity: moderate (5) Diabetes mellitus, type II Status: Chronic Qualifiers: Diabetes mellitus usp insulin use: with usp use Diabetes mellitus complication status: without complication Qualified Code(s): E11.9 - Type 2 diabetes mellitus without complications; Z79.4 - longterm (current) use of insulin History of Present Illness Date of Admission: 11/24/17 Chief Complaint: Shortness of breath. Patient is a 72 yo WF with history of asthma, presents to ED with gradual worsening of shortness of breath with cough. She has some sputum production with yellow sputum. It came to the point that she was unable to get up and walk , when her daughter came to pick her up to go to shopping. O2 sat was 84% on arrival, with tachypnea / labored breathing. She improved somewhat with bronchodilator. She still needed oxygen supplement to keep the level up. She has home oxygen, but uses at night only, along with CPAP for DORY. WBC is marginally elevated to 11.3, but she is afebrile. CXR is negative for infiltrate. Past Medical History Past Medical History (Chronic Problems): Chronic Problems Celiac disease (Chronic) Asthma (Chronic) BMI 50.0-59.9, adult (Chronic) History of right breast cancer (Chronic) Diabetes mellitus, type II (Chronic) Anxiety and depression (Chronic) Allergies adhesive tape Allergy (Verified 11/24/17 13:31) Unknown listed on pcp allergy list cefadroxil [From Duricef] Allergy (Verified 11/24/17 13:31) Unknown mesalamine [From Asacol] Allergy (Verified 11/24/17 13:31) Unknown listed on pcp allergy list omalizumab [From Xolair] Allergy (Verified 11/24/17 13:31) Unknown listed on pcp allergy list Sulfa (Sulfonamide Antibiotics) Allergy (Verified 11/24/17 13:31) Unknown Home Medications: Ambulatory Orders Medication Instructions Recorded RX: Budesonide [Rhinocort Allergy] 2 spray NS TID 06/01/17 RX: Cholecalciferol (Vitamin D3) 50,000 unit PO SUWE 06/01/17 [Vitamin D3] RX: Dicyclomine HCl [Bentyl] 10 mg PO BID PRN PRN 06/01/17 RX: Insulin Regular, Human 85 unit SQ BID 06/01/17 [Humulin R U-500 Kwikpen] RX: Lansoprazole [Prevacid] 30 mg PO BID 06/01/17 RX: Levocetirizine Dihydrochloride 5 mg PO QHS 06/01/17 [Xyzal] RX: Methylphenidate HCl 20 mg PO BID 06/01/17 [Methylphenidate ER] RX: Paroxetine HCl [Paxil] 40 mg PO DAILY 06/01/17 RX: Pramipexole Di-HCl [Mirapex] 0.5 mg PO QHS 06/01/17 RX: Multivitamin [Multiple 1 each PO DAILY 06/11/17 Vitamins] Montelukast [Singulair] 10 mg PO DAILY 11/24/17 RX: Nadolol 40 mg PO DAILY 11/24/17 Surgical History: - - Rectocele repair. 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 Maternal History Items: Cancer Review of Systems Comment: ROS: In general: Patient has been in fair health, denied of any constitutional symptoms, such as weight loss, or gain, fever, chills, or night sweats. Patient denied of any profound fatigue. HEENT: Unremarkable. Patient denied of any dizziness, chronic headache, blurred vision, double vision, dry mouth, or nasal congestion. CV/respiratory: See HPI. She denied of any chest pain. GI: Patient denied any abdominal pain, nausea, vomiting, diarrhea, constipation, melena, or hematochezia. : Patient denied any significant urinary symptoms. Neurology: Unremarkable. There is no history of seizure as an adult. Psychological: Unremarkable. Endocrine: Unremarkable. Musculoskeletal: Unremarkable. VTE Information - Inpt Only VTE Present on Admission: No VTE Mechan Device Prophylaxis: Thigh High IVETTE Hose VTE Pharm Prophylaxis ordered?: Yes Patient Problems: Active and Suspected Problems Acute respiratory failure with hypoxia (Acute) Objective: In general, patient is a well-nourished and developed adult. HEENT: Head is atraumatic, and normocephalic. Pupils are equal, round, and reactive to light and accommodations. Neck is supple. There is no lymphadenopathy, or thyromegaly. Oral mucosa is pink, and moist. There are no lesions. Heart: Auscultation is normal with regular rhythm and rate. There is no extra heart sounds, or murmurs. S1 and S2 are present. Point of maximal impulse is not displaced. Lungs: Diminished breath sounds with mild wheezing at upper lung holcomb. Abdomen: Abdominal wall is non-tender, and non-distended. There is no palpable mass or organomegaly. Normoactive bowel sounds are present. Extremities: There is no cyanosis or clubbing. Peripheral pulses are palpable. There is trace edema bilaterally. Skin: There are no any skin discoloration or lesions. Neurological: CN II - XII are intact. Sensory and motor functions are grossly normal with no obvious deficit. Cerebellar functions are within normal range. Gait was not tested. - Physical Exam Vital Signs Temp Pulse Resp BP Pulse Ox 96.6 F L 72 20 H 138/65 H 98 11/24/17 17:58 11/24/17 19:40 11/24/17 19:40 11/24/17 17:58 11/24/17 17:58 Oxygen Flow Rate (L/min) 2 Oxygen Delivery Method Nasal Cannula Weight: 292 lb 15.909 oz Body Mass Index (BMI) 51.9 Assessment/Plan All Active Problems Acute respiratory failure with hypoxia (Acute) Acute bronchitis due to Rhinovirus (Acute) Fever (Acute) Encephalopathy (Acute) Staphylococcal pneumonia (Ruled-out) Streptococcal pneumonia (Ruled-out) Acute and chronic respiratory failure with hypoxia (Ruled-out) Cellulitis of right breast (Ruled-out) Sleep apnea (Acute) Influenza (Acute) Acute asthma exacerbation (Acute) Patient is a 72 yo WF with history of asthma, presents to ED with gradual worsening of shortness of breath with cough. She has some sputum production with yellow sputum. It came to the point that she was unable to get up and walk , when her daughter came to pick her up to go to shopping. O2 sat was 84% on arrival, with tachypnea / labored breathing. She improved somewhat with bronchodilator. She still needed oxygen supplement to keep the level up. She has home oxygen, but uses at night only, along with CPAP for DORY. WBC is marginally elevated to 11.3, but she is afebrile. CXR is negative for infiltrate. #1 Asthma exacerbation. Acute hypoxic respiratory failure. Continue BD DuoNeb and albuterol prn. Oxygen supplement. Levaquin 750 mg IV given in ED. Continue 500 mg po qd for URI. Solu Medrol 40 mg IV q8 x 4, then prednisone 40 mg po qd. #2 DM II. Continue Humalin R 25 units bid and add sliding scale insulin. #3 DORY. Continue CPAP HS. #4 HTN. Continue nadolol. VTE ppx: heparin SQ. GI ppx: PPI po. She is full code. Disposition: Home in 2 to 3 days. PT/OT. Code Visit Inpatient E&M: 44700 Init Hosp L3
[2017-11-24] MEDS: Pramipexole Di-HCl 0.5 MG Tablet PO (21:44)
[2017-11-24] MEDS: Heparin Injection (Vial) 5,000 UNIT/ML VIAL 5000 UNIT SC (21:44)
[2017-11-24] MEDS: Insulin Lispro 100 UNIT/ML INSULN.PEN SQ (21:51)
[2017-11-25] VITALS (15 sets, daily range): BP systolic 107–136; BP diastolic 45–71; PULSE 62–76; RESP 18–22; TEMP 36.5–36.8; O2SAT 94–99
[2017-11-25 05:55] LABS: Absolute Lymphocyte Count 0.94 X10^3/ul (0.83-4.51); Absolute Neutrophil Count 10.1 X10^3/uL (2.0-7.7); Basophil# 0.01 X10^3/uL; Basophil% 0.1 % (0-1); Eosinophil# 0.01 X10^3/uL; Eosinophils% 0.1 % (0-5); Hematocrit 40.4 % (37-47); Hemoglobin 13.8 g/dl (12.0-15.0); Lymphocyte # 0.94 X10^3/ul (4.0); Lymphocyte % 8.4 % (19-41); Mean Corp Hgb Conc 34.2 g/gl (32-36); Mean Corpuscular Hgb 29.6 pg (27.0-32.0); Mean Corpuscular Volume 86.7 fL (81-99); Mean Platelet Vol. 10.6 fl (6.2-12.0); Monocyte# 0.18 X10^3/uL; Monocyte% 1.6 % (0-10); Neutrophil # 10.09 X10^3/uL (2.7-7.7); Neutrophil % 89.6 % (47-70); Platelet Count 163 K/mm3 (150-450); RBC Distribution Width CV 13.4 % (11.6-14.6); RBC Distribution Width SD 41.5 fl (35.1-43.9); Red Blood Count 4.66 M/mm3 (4.2-5.4); White Blood Count 11.3 K/mm3 (4.4-11.0)
[2017-11-25] MEDS: Heparin Injection (Vial) 5,000 UNIT/ML VIAL 5000 UNIT SC (05:56)
[2017-11-25] MEDS: levoFLOXacin 500 MG Tablet PO (05:56)
[2017-11-25 05:57] LABS: POSITIVE COUNT NO; POSITIVE DIFFERENTIAL NO; POSITIVE MORPHOLOGY NO
[2017-11-25 06:56] LABS: Bedside Glucose 265 mg/dL (70-110)
[2017-11-25] MEDS: Ipratropium/Albuterol Sulfate 3 ML AMPUL.NEB INHALATION ×5 (07:09→22:46)
[2017-11-25] MEDS: Insulin Lispro 100 UNIT/ML INSULN.PEN SQ ×4 (08:36→21:02)
[2017-11-25] MEDS: Pantoprazole Sodium 40 MG Tablet PO (09:06)
[2017-11-25] MEDS: Nadolol 40 MG Tablet PO (09:07)
[2017-11-25] MEDS: Methylphenidate HCl 5 MG Tablet 10 MG PO (09:18)
--- NOTE | 2017-11-25 09:53 | NURSING ---
called Stephanie in respiratory to let her know that orders had been placed for respiratory panel, sputum induction, etc.
--- NOTE | 2017-11-25 10:18 | PCM.PN.HOSP ---
Patient Problems: Active and Suspected Problems Acute respiratory failure with hypoxia (Acute) Subjective: Patient with no acute events overnight per self and per nursing report. She states that she does feel improved since initial presentation but still notable dyspnea especially with any exertional attempts and occasional coughing. Patient notes that at home she does have difficulty with her oxygen secondary to the eyes of the tanks and is requesting consideration for compressor. Discussed current plan of care which includes to continue aerosols, steroids, obtain PCR viral panel as well as sputum culture if able with discontinuation of antibiotic therapy if notable viral panel, case management will be updated regarding possible tank alteration. Encouraged routine update and follow-up with Dr. Watters, her physician. Patient denies fevers, chills, nausea, emesis, abdominal pain, chest pain. Objective: Physical Examination: General: awake, alert, oriented x 3 and cooperative, seated upright in the bed, at bedside, notes feeling improved but still dyspnea with increased activity. Skin: normal color, turgor, no icterus, cyanosis. HEENT: AT/NC, EOMI, PERRLA, improved MMM, left TM mildly erythematous, minimal bulging, right TM normal-appearing with mild irritation of the canal with admitted usage of Q-tips and cerumen present bilaterally. Lungs: Severely diminished BS diffusely, > base, mild effort, currently no rales, rhonchi, wheezing. Heart: Regular rate and rhythm; no gallop, rub audible. Abdomen: soft, morbidly obese, NTTP, ND, normal BS. Extremities: no cyanosis, clubbing, or edema. Neurological: patient awake, alert, oriented x 3; cognitive function intact; pupils equally reactive to light and accomodation; cranial nerves II-XII grossly normal, moving all 4 extremities, no focal deficits, strength moderately to severely globally decreased secondary to acute presentation. Psychiatric: affect appears fatigued, no acute evidence of depressive or anxiety feelings. Vitals/I&O's: Vital Signs Temp Pulse Resp BP Pulse Ox 97.7 F L 72 18 132/71 H 95 11/25/17 09:00 11/25/17 09:00 11/25/17 09:00 11/25/17 09:00 11/25/17 09:00 Oxygen Flow Rate (L/min) 2 Oxygen Delivery Method Nasal Cannula Weight: 292 lb 15.909 oz Body Mass Index (BMI) 51.9 Intake and Output for Last 24 Hours 11/23/17 11/24/17 11/25/17 23:59 23:59 23:59 Intake Total 240 / 240 Balance 240 / 240 Laboratory Results 11/24/17 21:09: POC Glucose 360 H 11/25/17 05:00: WBC 11.3 H, RBC 4.66, Hgb 13.8, Hct 40.4, MCV 86.7, MCH 29.6, MCHC 34.2, RDW 13.4, RDW Differential 41.5, Plt Count 163, MPV 10.6, Immature Gran % (Auto) 0.200, Neut % (Auto) 89.6 H, Lymph % (Auto) 8.4 L, [place] % (Auto) 1.6, Eos % (Auto) 0.1, Baso % (Auto) 0.1, Absolute Neuts (auto) 10.1 H, Absolute Lymphs (auto) 0.94, Total Counted Not Reportable 11/25/17 06:47: POC Glucose 265 H Current Medications Acetaminophen (Tylenol) 650 mg PO Q6H PRN PRN PRN Reason: Mild Pain (scale 0-3)/T>100.7 Al Hydroxide/Mg Hydroxide (Mylanta Ii) 30 ml PO Q6H PRN PRN PRN Reason: Gastric Burning Albuterol Sulfate (Ventolin Aerosols) 2.5 mg INHALATION Q2H PRN PRN PRN Reason: SHORTNESS OF BREATH Albuterol/Ipratropium (Duoneb) 3 ml INHALATION Q4H.RT [facility] Last Admin: 11/25/17 07:09 Dose: 3 ml Bisacodyl (Dulcolax) 5 mg PO DAILY PRN PRN PRN Reason: Constipation Cholecalciferol (Vitamin D) 2,000 unit PO DAILY [facility] Last Admin: 11/25/17 09:06 Dose: 2,000 unit Dextrose (D50w Syringe) 0 gm IV X1 PRN; Protocol PRN Reason: Hypoglycemia Dicyclomine HCl (Bentyl) 10 mg PO BID PRN PRN PRN Reason: ABDOMINAL CRAMPS Glucagon () 1 mg IM .X1 PRN PRN Reason: Hypoglycemia Heparin Sodium (Porcine) (Heparin Na) 5,000 unit SC Q8 [facility] Last Admin: 06/21/18 05:56 Dose: 5,000 u Insulin Human Lispro (Humalog Kwikpen (Bk)) 0 unit SQ ACHS [facility] PRN Reason: Protocol Last Admin: 11/25/17 08:36 Dose: 6 u Insulin Human Regular (Humulin R U-500 (Bk)) 0.17 ml SC BIDAC [facility] Last Admin: 11/25/17 08:59 Dose: 0.17 ml Levofloxacin (Levaquin Tablet) 500 mg PO DAILY@0600 [facility] Last Admin: 11/25/17 05:56 Dose: 500 mg Magnesium Hydroxide (Milk Of Magnesia) 30 ml PO DAILY PRN PRN PRN Reason: Constipation Methylphenidate HCl (Ritalin (G)) 10 mg PO DAILY [facility] Last Admin: 11/25/17 09:18 Dose: 10 mg Methylprednisolone (Solu-Medrol) 40 mg IV Q8 [facility] Stop: 11/25/17 22:01 Last Admin: 11/25/17 05:57 Dose: 40 mg Nadolol (Corgard) 40 mg PO DAILY [facility] Last Admin: 11/25/17 09:07 Dose: 40 mg Ondansetron HCl (Zofran) 4 mg IV Q8H PRN PRN PRN Reason: Nausea Oxycodone HCl (Oxyir) 5 mg PO Q4H PRN PRN PRN Reason: Moderate Pain (pain scale 4-5) Pantoprazole Sodium (Protonix) 40 mg PO DAILY [facility] Last Admin: 11/25/17 09:06 Dose: 40 mg Paroxetine HCl (Paxil) 40 mg PO DAILY [facility] Last Admin: 11/25/17 09:06 Dose: 40 mg Pramipexole Dihydrochloride (Mirapex) 0.5 mg PO QHS [facility] Last Admin: 11/24/17 21:44 Dose: 0.5 mg Prednisone () 40 mg PO DAILY@0800 [facility] Sodium Chloride () 5 - 30 ml IV UD PRN PRN Reason: SALINE FLUSH Zolpidem Tartrate (Ambien (Generic)) 5 mg PO QHS PRN PRN PRN Reason: INSOMNIA Medical Necessity - Tobacco Use Smoking Status: Former smoker Tobacco Use: Cigarettes Assessment/Plan All Active Problems Acute respiratory failure with hypoxia (Acute) Acute bronchitis due to Rhinovirus (Acute) Fever (Acute) Encephalopathy (Acute) Staphylococcal pneumonia (Ruled-out) Streptococcal pneumonia (Ruled-out) Acute and chronic respiratory failure with hypoxia (Ruled-out) Cellulitis of right breast (Ruled-out) Sleep apnea (Acute) Influenza (Acute) Acute asthma exacerbation (Acute) The patient is a 71 y/o F w/ PMHx: Diabetes mellitus type II, Asthma/COPD, Morbid Obesity, DORY, GERD, HTN, ADD, RLS, Celiac disease, Anxiety and Depression who presents to the [facility] ED on 11/24/17 w/ ongoing minimally productive cough, dyspnea, wheezing x ~ 1 week. (1) Acute on Chronic COPD/Asthma Exacerbation w/ Chronic Hypoxic Respiratory Failure: Admitted to the [place], maintain on home O2 supplementation w/ CM to assist w/ obtaining compressor, will plan O2 ambulation trial prior to discharge with usage update if appropriate, continue ATC duonebs, PRN albuterol, maintain on IV solumedrol w/ transition to oral prednisone 11/26/17, maintained on IV levaquin currently but upon presentation CBC not marked and afebrile currently, thus will obtain sputum Cx and respiratory viral panel and de-escalate if appropriate. Upon discharge will encourage early Dr. Watters follow-up. (2) Diabetes mellitus type II: Hold oral home regimen, continue home insulin regimen, ADA diet, accu checks w/ ISS, nutrition consulted for education and teaching. (3) Hypertension: Continue home regimen including nadolol, PRN hydralazine. (4) Morbid Obesity: Weight loss and lifestyle changes encouraged, nutrition consulted. (5) DORY: CPAP q HS. (6) Celiac Disease: Maintain gluten free diet. (7) Anxiety and Depression/ADD: Maintain on home psychiatric regimen. (8) GERD: PPI. (9) DVT Prophylaxis: SCDs, lovenox. (10) CODE status: Discussed CODE status at length including difference between FULL code, DNR-CCA and DNR-CC status. She notes she does have living will in place. Confirmed currently FULL CODE status. Advanced Care Planning Face to Face Time: 18 minutes. Code Visit Inpatient E&M: 87509 Subs Hosp L2 Procedures: 02804 Advncd Care Plan 30 Min
--- NOTE | 2017-11-25 10:28 | PN_ITS ---
Patient Problems: Active and Suspected Problems Acute respiratory failure with hypoxia (Acute) Subjective: Patient with no acute events overnight per self and per nursing report. She states that she does feel improved since initial presentation but still notable dyspnea especially with any exertional attempts and occasional coughing. Patient notes that at home she does have difficulty with her oxygen secondary to the eyes of the tanks and is requesting consideration for compressor. Discussed current plan of care which includes to continue aerosols, steroids, obtain PCR viral panel as well as sputum culture if able with discontinuation of antibiotic therapy if notable viral panel, case management will be updated regarding possible tank alteration. Encouraged routine update and follow-up with Dr. Watters, her physician. Patient denies fevers, chills, nausea, emesis , abdominal pain, chest pain. Objective: Physical Examination: General: awake, alert, oriented x 3 and cooperative, seated upright in the bed, at bedside, notes feeling improved but still dyspnea with increased activity. Skin: normal color, turgor, no icterus, cyanosis. HEENT: AT/NC, EOMI, PERRLA, improved MMM, left TM mildly erythematous, minimal bulging, right TM normal-appearing with mild irritation of the canal with admitted usage of Q-tips and cerumen present bilaterally. Lungs: Severely diminished BS diffusely, > base, mild effort, currently no rales , rhonchi, wheezing. Heart: Regular rate and rhythm; no gallop, rub audible. Abdomen: soft, morbidly obese, NTTP, ND, normal BS. Extremities: no cyanosis, clubbing, or edema. Neurological: patient awake, alert, oriented x 3; cognitive function intact; pupils equally reactive to light and accomodation; cranial nerves II-XII grossly normal, moving all 4 extremities, no focal deficits, strength moderately to severely globally decreased secondary to acute presentation. Psychiatric: affect appears fatigued, no acute evidence of depressive or anxiety feelings. Vitals/I&O's: Vital Signs Temp Pulse Resp BP Pulse Ox 97.7 F L 72 18 132/71 H 95 11/25/17 09:00 11/25/17 09:00 11/25/17 09:00 11/25/17 09:00 11/25/17 09:00 Oxygen Flow Rate (L/min) 2 Oxygen Delivery Method Nasal Cannula Weight: 292 lb 15.909 oz Body Mass Index (BMI) 51.9 Intake and Output for Last 24 Hours 11/23/17 11/24/17 11/25/17 23:59 23:59 23:59 Intake Total 240 / 240 Balance 240 / 240 Laboratory Results 11/24/17 21:09: POC Glucose 360 H 11/25/17 05:00: WBC 11.3 H, RBC 4.66, Hgb 13.8, Hct 40.4, MCV 86.7, MCH 29.6, MCHC 34.2, RDW 13.4, RDW Differential 41.5, Plt Count 163, MPV 10.6, Immature Gran % (Auto) 0.200, Neut % (Auto) 89.6 H, Lymph % (Auto) 8.4 L, [place] % (Auto) 1.6, Eos % (Auto) 0.1, Baso % (Auto) 0.1, Absolute Neuts (auto) 10.1 H, Absolute Lymphs (auto) 0.94, Total Counted Not Reportable 11/25/17 06:47: POC Glucose 265 H Current Medications Acetaminophen (Tylenol) 650 mg PO Q6H PRN PRN PRN Reason: Mild Pain (scale 0-3)/T>100.7 Al Hydroxide/Mg Hydroxide (Mylanta Ii) 30 ml PO Q6H PRN PRN PRN Reason: Gastric Burning Albuterol Sulfate (Ventolin Aerosols) 2.5 mg INHALATION Q2H PRN PRN PRN Reason: SHORTNESS OF BREATH Albuterol/Ipratropium (Duoneb) 3 ml INHALATION Q4H.RT [facility] Last Admin: 11/25/17 07:09 Dose: 3 ml Bisacodyl (Dulcolax) 5 mg PO DAILY PRN PRN PRN Reason: Constipation Cholecalciferol (Vitamin D) 2,000 unit PO DAILY [facility] Last Admin: 11/25/17 09:06 Dose: 2,000 unit Dextrose (D50w Syringe) 0 gm IV X1 PRN; Protocol PRN Reason: Hypoglycemia Dicyclomine HCl (Bentyl) 10 mg PO BID PRN PRN PRN Reason: ABDOMINAL CRAMPS Glucagon () 1 mg IM .X1 PRN PRN Reason: Hypoglycemia Heparin Sodium (Porcine) (Heparin Na) 5,000 unit SC Q8 [facility] Last Admin: 06/21/18 05:56 Dose: 5,000 u Insulin Human Lispro (Humalog Kwikpen (Bk)) 0 unit SQ ACHS [facility] PRN Reason: Protocol Last Admin: 11/25/17 08:36 Dose: 6 u Insulin Human Regular (Humulin R U-500 (Bk)) 0.17 ml SC BIDAC [facility] Last Admin: 11/25/17 08:59 Dose: 0.17 ml Levofloxacin (Levaquin Tablet) 500 mg PO DAILY@0600 [facility] Last Admin: 11/25/17 05:56 Dose: 500 mg Magnesium Hydroxide (Milk Of Magnesia) 30 ml PO DAILY PRN PRN PRN Reason: Constipation Methylphenidate HCl (Ritalin (G)) 10 mg PO DAILY [facility] Last Admin: 11/25/17 09:18 Dose: 10 mg Methylprednisolone (Solu-Medrol) 40 mg IV Q8 [facility] Stop: 11/25/17 22:01 Last Admin: 11/25/17 05:57 Dose: 40 mg Nadolol (Corgard) 40 mg PO DAILY [facility] Last Admin: 11/25/17 09:07 Dose: 40 mg Ondansetron HCl (Zofran) 4 mg IV Q8H PRN PRN PRN Reason: Nausea Oxycodone HCl (Oxyir) 5 mg PO Q4H PRN PRN PRN Reason: Moderate Pain (pain scale 4-5) Pantoprazole Sodium (Protonix) 40 mg PO DAILY [facility] Last Admin: 11/25/17 09:06 Dose: 40 mg Paroxetine HCl (Paxil) 40 mg PO DAILY [facility] Last Admin: 11/25/17 09:06 Dose: 40 mg Pramipexole Dihydrochloride (Mirapex) 0.5 mg PO QHS [facility] Last Admin: 11/24/17 21:44 Dose: 0.5 mg Prednisone () 40 mg PO DAILY@0800 [facility] Sodium Chloride () 5 - 30 ml IV UD PRN PRN Reason: SALINE FLUSH Zolpidem Tartrate (Ambien (Generic)) 5 mg PO QHS PRN PRN PRN Reason: INSOMNIA Medical Necessity - Tobacco Use Smoking Status: Former smoker Tobacco Use: Cigarettes Assessment/Plan All Active Problems Acute respiratory failure with hypoxia (Acute) Acute bronchitis due to Rhinovirus (Acute) Fever (Acute) Encephalopathy (Acute) Staphylococcal pneumonia (Ruled-out) Streptococcal pneumonia (Ruled-out) Acute and chronic respiratory failure with hypoxia (Ruled-out) Cellulitis of right breast (Ruled-out) Sleep apnea (Acute) Influenza (Acute) Acute asthma exacerbation (Acute) The patient is a 71 y/o F w/ PMHx: Diabetes mellitus type II, Asthma/COPD, Morbid Obesity, DORY, GERD, HTN, ADD, RLS, Celiac disease, Anxiety and Depression who presents to the [facility] ED on 11/24/17 w/ ongoing minimally productive cough, dyspnea, wheezing x ~ 1 week. (1) Acute on Chronic COPD/Asthma Exacerbation w/ Chronic Hypoxic Respiratory Failure: Admitted to the [place], maintain on home O2 supplementation w/ CM to assist w/ obtaining compressor, will plan O2 ambulation trial prior to discharge with usage update if appropriate, continue ATC duonebs, PRN albuterol , maintain on IV solumedrol w/ transition to oral prednisone 11/26/17, maintained on IV levaquin currently but upon presentation CBC not marked and afebrile currently, thus will obtain sputum Cx and respiratory viral panel and de-escalate if appropriate. Upon discharge will encourage early Dr. Watters follow-up. (2) Diabetes mellitus type II: Hold oral home regimen, continue home insulin regimen, ADA diet, accu checks w/ ISS, nutrition consulted for education and teaching. (3) Hypertension: Continue home regimen including nadolol, PRN hydralazine. (4) Morbid Obesity: Weight loss and lifestyle changes encouraged, nutrition consulted. (5) DORY: CPAP q HS. (6) Celiac Disease: Maintain gluten free diet. (7) Anxiety and Depression/ADD: Maintain on home psychiatric regimen. (8) GERD: PPI. (9) DVT Prophylaxis: SCDs, lovenox. (10) CODE status: Discussed CODE status at length including difference between FULL code, DNR-CCA and DNR-CC status. She notes she does have living will in place. Confirmed currently FULL CODE status. Advanced Care Planning Face to Face Time: 18 minutes. Code Visit Inpatient E&M: 81139 Subs Hosp L2 Procedures: 13672 Advncd Care Plan 30 Min
--- NOTE | 2017-11-25 11:22 | CPS ---
Attempted to get pt to cough up sputum but pt was unable. Specimen cup left, instructions given, pt declined NT suctioning, RN aware.
[2017-11-25] MEDS: guaiFENesin 1,200 MG Tablet 1200 MG PO ×2 (11:34→21:01)
[2017-11-25 11:41] LABS: Bedside Glucose 270 mg/dL (70-110)
--- NOTE | 2017-11-25 13:58 | CASEMGMT ---
RN CM Face to Face with patient for initial transition planning/care coordination assessment. RN CM introduced self and role at [facility]. Patient sitting in chair, alert and oriented. Patient willing to participate in assessment and is able to answer all questions appropriately. Care providers, pharmacy, and demographics verified. See link attached. Patient wishes to discharge home, denies need for home health at this time. Patient requesting portable concentrator. Patient states she has no further needs or concerns at this time. CM to follow for discharge planning needs that may arise. Disposition Plan: Patient to discharge home with family support and follow-up plans in place. RN CM to assist with DME needs.
[2017-11-25] MEDS: 0.9% NaCl Peripheral Flush Adult/Peds IV (14:11)
[2017-11-25 16:30] LABS: Bedside Glucose 259 mg/dL (70-110)
--- NOTE | 2017-11-25 16:45 | CHAPLAIN ---
Type of Pastoral Visit _x__ Initial Visit ___ Follow-up Visit ___ On-call Visit ___ General Patient Visit ___ Spiritual Assessment ___ Family Conference ___ Bereavement ___ Rapid Response ___ Code Blue ___ Other (describe below) Pastoral Care Referral From _x__ Patient ___ Family ___ Nurse ___ Physician ___ Wealth Management Manager ___ Vendor Management Specialist ___ Other (describe below) Sacrament/Intervention ___ Active listening ___ Anointing ___ Mosque ___ Bereavement ___ Communion ___ [place] exploration ___ ___ Life review ___ Prayer ___ Reconciliation ___ Sacrament of Sick ___ Supportive presence ___ Wedding _x__ Other (describe below) Pastoral Comments introduction and offer of support to patient; pt said that she feels better, hopes to be on O2 to be more independent and go out as needed; pt said that I am fine; pt expressed interest in watching her favorite TV show at this time;
[2017-11-25] MEDS: Pramipexole Di-HCl 0.5 MG Tablet PO (21:01)
[2017-11-25 22:31] LABS: Bedside Glucose 279 mg/dL (70-110)
[2017-11-26] VITALS (9 sets, daily range): BP systolic 127–143; BP diastolic 60–66; PULSE 63–77; RESP 18–20; TEMP 36.5–37.2; O2SAT 91–97
[2017-11-26] MEDS: Ipratropium/Albuterol Sulfate 3 ML AMPUL.NEB INHALATION ×2 (02:59→06:43)
[2017-11-26] MEDS: levoFLOXacin 500 MG Tablet PO (05:11)
[2017-11-26] MEDS: Enoxaparin 40 MG/0.4 ML Syringe SC (05:11)
[2017-11-26 07:05] LABS: Absolute Lymphocyte Count 1.62 X10^3/ul (0.83-4.51); Absolute Neutrophil Count 16.6 X10^3/uL (2.0-7.7); Basophil# 0.01 X10^3/uL; Basophil% 0.1 % (0-1); Hematocrit 38.7 % (37-47); Hemoglobin 13.3 g/dl (12.0-15.0); Lymphocyte # 1.62 X10^3/ul (4.0); Lymphocyte % 8.5 % (19-41); Mean Corp Hgb Conc 34.4 g/gl (32-36); Mean Corpuscular Volume 87.4 fL (81-99); Mean Platelet Vol. 10.7 fl (6.2-12.0); Monocyte# 0.75 X10^3/uL; Monocyte% 3.9 % (0-10); Neutrophil # 16.57 X10^3/uL (2.7-7.7); Neutrophil % 87.2 % (47-70); Platelet Count 184 K/mm3 (150-450); RBC Distribution Width CV 13.3 % (11.6-14.6); RBC Distribution Width SD 42.1 fl (35.1-43.9); Red Blood Count 4.43 M/mm3 (4.2-5.4)
[2017-11-26 07:06] LABS: POSITIVE COUNT NO; POSITIVE DIFFERENTIAL NO; POSITIVE MORPHOLOGY NO
[2017-11-26 07:24] LABS: Anion Gap 7 (5-15); BUN 24 mg/dL (7-18); BUN/Creat Ratio 32.7 RATIO (10-20); Calcium,Total 9.4 mg/dL (8.5-10.1); Chloride 102 mmol/L (98-107); Creatinine, Serum 0.73 mg/dL (0.55-1.02); EST Glomerular Filtration Rate 83 mL/min (>60); Est Glom Filt Rate - Afr Amer 100 mL/min (>60); Estimated Creatinine Clearance 42.68 ml/min; Glucose 217 mg/dL (74-106); Potassium 4.3 mmol/L (3.5-5.1); Sodium Level 138 mmol/L (136-145)
[2017-11-26] MEDS: Insulin Lispro 100 UNIT/ML INSULN.PEN SQ ×2 (07:57→11:37)
[2017-11-26] MEDS: predniSONE 20 MG Tablet 40 MG PO (07:58)
[2017-11-26] MEDS: Pantoprazole Sodium 40 MG Tablet PO (08:24)
[2017-11-26] MEDS: guaiFENesin 1,200 MG Tablet 1200 MG PO (08:24)
[2017-11-26] MEDS: Nadolol 40 MG Tablet PO (08:25)
[2017-11-26] MEDS: Methylphenidate HCl 5 MG Tablet 10 MG PO (08:28)
--- NOTE | 2017-11-26 09:34 | PCM.DC ---
- Discharge Diagnoses Current Active Problems: Current Active and Chronic Problems (1) Acute Hypoxic Respiratory Failure (ED noted RR 22, O2 84% on RA with increased work of breathing) on Chronic Hypoxic Respiratory Failure (q HS O2 only) secondary to Acute on Chronic COPD/Asthma Exacerbation (2) Possible Urinary Tract Infection (UA in the ED notable but POOR SAMPLE, unfortunately not repeated prior to antibiotic therapy), Unclear Organism (2) Diabetes mellitus type II (3) Hypertension (4) Morbid Obesity (5) DORY (6) Celiac Disease (7) Anxiety and Depression/ADD (8) GERD You will use the following diet at home:: Calorie/Carbohydrate Controlled (specify 1200, 1400, etc) - 1800, Cardiac Your food should be the consistency of: Regular Your liquids should be the consistency of: Regular/Thin Discharge Activity: - - No aggressive activity until re-assessment per your pulmonary physician and primary care physician. May resume sexual activity in: 10-14 days Weight Bearing Status: Weight bearing as tolerated Call your doctor if you observe: Fever of 101 or Higher, Inability to urinate, Inability to have a bowel movement, Shortness of breath, Dizziness, Fainting spells, Chest pain, Uncontrolled pain Instructions: Understanding Asthma, What is COPD?, Understanding Asthma Triggers, Using an Inhaler with a Spacer, Using an Inhaler Without a Spacer, Using a Nebulizer (Adult), Using Oxygen Safely, Discharge Instructions: Using Oxygen at Home, Urinary Tract Infections in Women, Weight Management: Overcoming Your Barriers, Weight Management: Healthy Eating, Weight Management: Exercise and Activity, Weight Management: Take it Off and Keep it Off, Weight Management: Fact and Fiction Allergies/Adverse Reactions: Allergies adhesive tape Allergy (Verified 11/24/17 13:31) Unknown listed on pcp allergy list cefadroxil [From Duricef] Allergy (Verified 11/24/17 13:31) Unknown mesalamine [From Asacol] Allergy (Verified 11/24/17 13:31) Unknown listed on pcp allergy list omalizumab [From Xolair] Allergy (Verified 11/24/17 13:31) Unknown listed on pcp allergy list Sulfa (Sulfonamide Antibiotics) Allergy (Verified 11/24/17 13:31) Unknown Medications to take at Discharge Budesonide [Rhinocort Allergy] 2 spray NS TID 06/01/17 Cholecalciferol (Vitamin D3) [Vitamin D3] 50,000 unit PO SUWE 06/01/17 Dicyclomine HCl [Bentyl] 10 mg PO BID PRN PRN 06/01/17 Insulin Regular, Human [Humulin R U-500 Kwikpen] 85 unit SQ BID 06/01/17 Lansoprazole [Prevacid] 30 mg PO BID 06/01/17 Levocetirizine Dihydrochloride [Xyzal] 5 mg PO QHS 06/01/17 Methylphenidate HCl [Methylphenidate ER] 20 mg PO BID 06/01/17 Paroxetine HCl [Paxil] 40 mg PO DAILY 06/01/17 Pramipexole Di-HCl [Mirapex] 0.5 mg PO QHS 06/01/17 Multivitamin [Multiple Vitamins] 1 each PO DAILY 06/11/17 Montelukast [Singulair] 10 mg PO DAILY 11/24/17 Nadolol 40 mg PO DAILY 11/24/17 Albuterol Aerosols [Ventolin Aerosols] 2.5 mg INHALATION Q2H PRN PRN #1 box 11/26/17 Guaifenesin [Mucinex] 1,200 mg PO BID #20 tab 11/26/17 Ipratropium/Albuterol Sulfate [Duoneb] 3 ml INHALATION Q4H.RT #1 box 11/26/17 Prednisone 10 mg PO UD #30 tab 11/26/17 levoFLOXacin tablet [Levaquin tablet] 500 mg PO DAILY@0600 #4 tab 11/26/17 The following prescriptions were given: Albuterol Aerosols [Ventolin Aerosols] 2.5 mg INHALATION Q2H PRN PRN #1 box PRN Reason: Dyspnea, wheezing Ipratropium/Albuterol Sulfate [Duoneb] 3 ml INHALATION Q4H.RT #1 box levoFLOXacin tablet [Levaquin tablet] 500 mg PO DAILY@0600 #4 tab Prednisone 10 mg PO UD #30 tab Guaifenesin [Mucinex] 1,200 mg PO BID #20 tab Primary Care Physician: Senait Jay MD [Primary Care Provider] - Please follow up with your Primary Care Physician in: Follow-up within 3-5 days to review admission. Please Follow Up With: Dre Watters MD When: Follow-up within 1 week. Proposed Discharge Date: 11/26/17
--- NOTE | 2017-11-26 09:36 | NURSING ---
prescription sent to pharmacy for d/c med per Dr. Painter. This RN called and requested med to be delivered to room per Dr. Painter's request.
--- NOTE | 2017-11-26 09:38 | PCM.DC.SUM ---
Discharge Date and Diagnosis - Problem List Patient Problems: Active and Suspected Problems Acute respiratory failure with hypoxia (Acute) Date of Admission: 11/24/17 Date of Discharge: 11/26/17 - Primary Discharge Diagnosis Active and Suspected Problems (1) Acute Hypoxic Respiratory Failure (ED noted RR 22, O2 84% on RA with increased work of breathing) on Chronic Hypoxic Respiratory Failure (q HS O2 only) secondary to Acute on Chronic COPD/Asthma Exacerbation, Bronchitis (2) Possible Urinary Tract Infection (UA in the ED notable but POOR SAMPLE, unfortunately not repeated prior to antibiotic therapy), Unclear Organism (2) Diabetes mellitus type II (3) Hypertension (4) Morbid Obesity (5) DORY (6) Celiac Disease (7) Anxiety and Depression/ADD (8) GERD - Secondary Discharge Diagnosis Chronic Problems Celiac disease (Chronic) Asthma (Chronic) BMI 50.0-59.9, adult (Chronic) History of right breast cancer (Chronic) Diabetes mellitus, type II (Chronic) Anxiety and depression (Chronic) Hospital Course and Treatment Operations: None Procedures: EKG Summary of Care Provided: The patient is a 72 y/o F w/ PMHx: Diabetes mellitus type II, Asthma/COPD, Morbid Obesity, DORY, GERD, HTN, ADD, RLS, Celiac disease, Anxiety and Depression who presents to the [facility] ED on 11/24/17 w/ ongoing minimally productive cough, dyspnea, wheezing x ~ 1 week. In the ED patient w/ noted RR 22, O2 84% on RA with increased work of breathing, noted to only be on oxygen supplementation q HS 2L NC. Following ED evaluation with findings consistent w/ Acute Hypoxic Respiratory Failure on Chronic Hypoxic Respiratory Failure secondary to Acute on Chronic COPD/Asthma Exacerbation in addition to possible UTI however UA not decent sample w/ notable SEC without repeat obtained prior to abx therapy, patient admitted to the CT, maintained on supplementation w/ wean to q HS supplementation, unable to obtain compressor while inpatient w/ notification to patient and office to continue to document and discuss with [facility] possible transition to q HS compressor as she notes instability and debility at night with any attempts to ambulate, nearing falling. Oxygenation assessment without daytime O2 needs. Patient treated with ATC duonebs, PRN albuterol, maintained on IV solumedrol w/ transition to oral prednisone 11/26/17, maintained on IV levaquin w/ transition to oral regimen to complete course for possible UTI and COPD exacerbation concurrently. Encouraged upon discharge early Dr. Watters follow-up w/ office notified of admission. Maintained on CPAP q HS. Encouraged lifestyle and diet changes for weight loss. Patient discharged to home in stable, improved condition with PCP and pulmonary follow-up with steroid taper, refill on aerosols with nebulizer already at home, abx therapy completion regimen. DAY OF DISCHARGE PROGRESS NOTE: Subjective: Patient without acute event overnight per self and nursing report. Patient notes breathing easier, no coughing, no wheezing and moving with greater ease. Oxygenation testing performed this morning with no O2 needs during the daytime. Encouraged visit with Dr. Watters to also discuss ongoing request for compressor therapy which will need to be documented in his office. Patient denies fever, chills, nausea, emesis, abdominal pain, chest pain. Patient agreeable to discharge to home, confirmed home q HS O2 in place. Patient will be discharged with follow-up with primary care physician within 3-5 days in addition to Dr. Watters in 1 week. Objective: T 97.7, heart rate 65, BP 143/66, respiratory rate 20, 94% on room air. Physical Examination: General: awake, alert, oriented x 3 and cooperative, seated upright in bedside chair, NAD. Skin: normal color, turgor, no icterus, cyanosis. HEENT: AT/NC, EOMI, PERRLA, improved MMM. Lungs: Improved BS throughout, > bases, improved effort, no rales, rhonchi, wheezing. Heart: Regular rate and rhythm; no gallop, rub audible. Abdomen: soft, morbidly obese, NTTP, ND, normal BS. Extremities: no cyanosis, clubbing, or edema. Neurological: patient awake, alert, oriented x 3; cognitive function intact; pupils equally reactive to light and accomodation; cranial nerves II-XII grossly normal, moving all 4 extremities, no focal deficits, strength improved, mildly to moderately globally decreased. Psychiatric: affect appears improved, normal, no acute evidence of depressive or anxiety feelings. Assessment and Plan: Please see hospital summary above. Discharge Activity: - - No aggressive activity until re-assessment per your pulmonary physician and primary care physician. May resume sexual activity in: 10-14 days Weight Bearing Status: Weight bearing as tolerated Call your doctor if you observe: Fever of 101 or Higher, Inability to urinate, Inability to have a bowel movement, Shortness of breath, Dizziness, Fainting spells, Chest pain, Uncontrolled pain Home Medications: Medications to take at Discharge Budesonide [Rhinocort Allergy] 2 spray NS TID 06/01/17 Cholecalciferol (Vitamin D3) [Vitamin D3] 50,000 unit PO SUWE 06/01/17 Dicyclomine HCl [Bentyl] 10 mg PO BID PRN PRN 06/01/17 Insulin Regular, Human [Humulin R U-500 Kwikpen] 85 unit SQ BID 06/01/17 Lansoprazole [Prevacid] 30 mg PO BID 06/01/17 Levocetirizine Dihydrochloride [Xyzal] 5 mg PO QHS 06/01/17 Methylphenidate HCl [Methylphenidate ER] 20 mg PO BID 06/01/17 Paroxetine HCl [Paxil] 40 mg PO DAILY 06/01/17 Pramipexole Di-HCl [Mirapex] 0.5 mg PO QHS 06/01/17 Multivitamin [Multiple Vitamins] 1 each PO DAILY 06/11/17 Montelukast [Singulair] 10 mg PO DAILY 11/24/17 Nadolol 40 mg PO DAILY 11/24/17 Albuterol Aerosols [Ventolin Aerosols] 2.5 mg INHALATION Q2H PRN PRN #1 box 11/26/17 Guaifenesin [Mucinex] 1,200 mg PO BID #20 tab 11/26/17 Ipratropium/Albuterol Sulfate [Duoneb] 3 ml INHALATION Q4H.RT #1 box 11/26/17 Prednisone 10 mg PO UD #30 tab 11/26/17 levoFLOXacin tablet [Levaquin tablet] 500 mg PO DAILY@0600 #4 tab 11/26/17 Following Prescrptions Were Given to Patient: Albuterol Aerosols [Ventolin Aerosols] 2.5 mg INHALATION Q2H PRN PRN #1 box PRN Reason: Dyspnea, wheezing Ipratropium/Albuterol Sulfate [Duoneb] 3 ml INHALATION Q4H.RT #1 box levoFLOXacin tablet [Levaquin tablet] 500 mg PO DAILY@0600 #4 tab Prednisone 10 mg PO UD #30 tab Guaifenesin [Mucinex] 1,200 mg PO BID #20 tab Primary Care Physician: Senait Jay MD [Primary Care Provider] - Please follow up with your Primary Care Physician in: Follow-up within 3-5 days to review admission. Please Follow Up With: Dre Watters MD When: Follow-up within 1 week. Patient Instructions: Understanding Asthma, What is COPD?, Understanding Asthma Triggers, Using an Inhaler with a Spacer, Using an Inhaler Without a Spacer, Using Oxygen Safely, Urinary Tract Infections in Women, Weight Management: Overcoming Your Barriers, Weight Management: Healthy Eating, Weight Management: Exercise and Activity, Weight Management: Take it Off and Keep it Off, Weight Management: Fact and Fiction, Discharge Instructions: Using Oxygen at Home, Using a Nebulizer (Adult) Disposition: Home Minutes spent on discharge:: 35 Patient Condition:: Fair Medical Necessity - Tobacco Use Smoking Status: Former smoker Tobacco Use: Cigarettes Meaningful Use Info Meaningful Use Diagnoses (Choose all that apply): None applicable Code Visit Inpatient E&M: 98321 Disch Hosp
--- NOTE | 2017-11-26 09:59 | NURSING ---
Addendum entered by Machelle Luong 11/26/17 10:53: Glenny returned call at this time- appointment scheduled for Wednesday11/30/17 at 1030. JASWINDER Christensen-THAIS notified and she notified Dr. Painter. Original Note: This RN asked patient when she would like appt with Dr. Watters scheduled- as far as time of day and day of week. She states day does not matter- but requests appointment not be first thing in the morning. This RN attempted to schedule appointment but had to leave message for Glenny to return call to set.
--- NOTE | 2017-11-26 10:37 | CASEMGMT ---
JASWINDER PLASCENCIA called [facility] to gather information for patient regarding portable concentrator. Per rep at [facility], patient's doctor would need to send script and clinical documentation supporting need for portable concentrator. JASWINDER PLASCENCIA updated patient with information and will follow-up with Dr. Watters, therapy tech. JASWINDER PLASCENCIA will continue to follow this patient and plan for a safe discharge.
--- NOTE | 2017-11-26 11:39 | NURSING ---
Blood sugar was 186 at this time, taken by this nurse.
--- NOTE | 2017-11-29 15:52 | CASEMGMT ---
JASWINDER PLASCENCIA Discharge Follow-up Phone Call: RASHEL: Elidia Strata: 4 Call Date: 11/29/17 Discharge Date: 11/26/17 Time of Call: 1550 Duration: 2 Admitting Diagnosis: Asthma Exacerbation JASWINDER PLASCENCIA completed follow-up phone call after recent hospitalization. Patient states that she is doing a little better. Continues with nebulizer treatments. Patient states that she has no questions or concerns regarding discharge instructions or medications. Patient states that she has a follow-up appt with logistics coordinator tomorrow.
== END 2017-11-26 12:30 | disposition home or self-care (01) | DRG 189 ==
LOC: ED 14:10 → MS3 17:26
PROVIDERS: Admitting Provider Hospitalist; Emergency Provider Emergency Medicine; Family Provider Internal Medicine; PCP Internal Medicine; Visit Provider Family Medicine
DX: J96.21 Acute and chronic respiratory failure with hypoxia (principal); J44.1 Chronic obstructive pulmonary disease with (acute) exacerbation; Z68.43 Body mass index [BMI] 50.0-59.9, adult; N39.0 Urinary tract infection, site not specified; E11.9 Type 2 diabetes mellitus without complications; G47.33 Obstructive sleep apnea (adult) (pediatric); I10 Essential (primary) hypertension; E66.01 Morbid (severe) obesity due to excess calories; Z87.891 Personal history of nicotine dependence; Z79.4 Long term (current) use of insulin; Z79.899 Other long term (current) drug therapy; K90.0 Celiac disease; F41.9 Anxiety disorder, unspecified; F32.9 Major depressive disorder, single episode, unspecified; K21.9 Gastro-esophageal reflux disease without esophagitis; Z85.3 Personal history of malignant neoplasm of breast; F98.8 Other specified behavioral and emotional disorders with onset usually occurring in childhood and adolescence; Z99.81 Dependence on supplemental oxygen
CPT/HCPCS: 36415; 71045; 80048; 81001; 82962; 83605; 83880; 84484; 85025; 87040; 87070; 87086; 87088; 87205; 87633; 93005; 94640; 97162; 97165; 97802; 99285; J7050; A4216

== ENCOUNTER → 2017-12-13 11:51 | Outpatient (CLI) | payer MEDICARE, SELFPAY ==
[2017-12-13 12:19] LABS: Hemoglobin A1c 7.9 % (4.2-6.3)
[2017-12-13 12:26] LABS: Cholesterol 239 mg/dL (200); High Density Lipoprotein 56 mg/dL; Triglycerides 202 mg/dL; Very Low Density Lipoprotein 40 mg/dL (5-40)
[2017-12-13 12:38] LABS: Microalbumin,Random Urine 7.7 mg/L (NO RANGE EST.); Microalbumin:Creatinine Ratio 5.5 mg/g CRE (<30 mg/g CRE)
== END ==
PROVIDERS: Visit Provider Clinical Nurse Specialist
DX: R79.89 Other specified abnormal findings of blood chemistry (principal); E11.9 Type 2 diabetes mellitus without complications
CPT/HCPCS: 80061; 82043; 82570; 83036; 84443

== ENCOUNTER → 2018-01-28 10:03 | Outpatient (CLI) | payer MEDICARE, SELFPAY ==
--- NOTE | 2018-01-28 | BRBX_PTH ---
PATIENT: ALESSANDRO DOTSON LOC: [facility] U#:[id number] AGE/SX: 79/F ROOM: RE01/28/[address]: Dr. Jose Holm MD : 1945 BED: DIS: SPEC #: [id number] RECD: 01/28/18 10:26 STATUS: TANO KATHERIN #: [id number] HELEN: 01/28/18 00:[address]: Jose Holm DEPT: SURGICAL PATHOLOGY RECD BY: Dereck Matute ENTERED: 01/28/18 10:27 SP TYPE: BREAST BX OTHR DR: Dr. Senait Jay MD Tissues: A - Right breast, NOS B - Left breast, NOS Procedures: Surgery Specimen Level IV HEADER OPERATION: Abnormal mammogram PRE-OP DIAGNOSIS: Ultrasound-guided breast biopsy TISSUE SUBMITTED: A ? Right side ultrasound-guided breast biopsy, B ? Left side ultrasound-guided breast biopsy ISCHEMIC TIME: 1 minute MICROSCOPIC DIAGNOSIS A. Right breast lesion, ultrasound guided core biopsy: Invasive ductal carcinoma. Nuclear grade ? 3/3 Maximal length ? 7 mm B. Left breast lesion, ultrasound guided core biopsy: Focal fibrosis. No evidence of malignancy. AM:efra 01/31/18 COMMENT ER/IN/[id number] studies are being performed on sections of tumor and the results from this study will be reported separately ([id number]). MICROSCOPIC DESCRIPTION Slides are reviewed. GROSS DESCRIPTION A - Received in fixative is one container labeled with the patient's name and designated right side. The specimen consists of multiple irregular and elongated fragments of pink-yellow soft tissue measuring 1.2 x 0.5 x 0.1 cm. The specimen is totally submitted in one cassette. B - Received in fixative is one container labeled with the patient's name and designated left side #2. The specimen consists of multiple irregular and elongated fragments of pink-yellow soft tissue measuring 1 x 0.1 x less than 0.1 cm. The specimen is totally submitted in one cassette. AM:efra 8/24/18 TC: 0 CPT: 69385 x2 ADDENDUM ADDENDUM ADDENDUM ADDENDUM ADDENDUM ADDENDUM ADDENDUM ADDENDUM ADDENDUM ADDENDUM ADDENDUM ADDENDUM 05/03/2018 11:23 ADDENDUM 05/03/2018 11:23 ADDENDUM 05/03/2018 11:23 ADDENDUM 05/03/2018 11:23 ADDENDUM 05/03/2018 11:23 This addendum is added to incorporate an outside pathology consultation report. The case was examined at [facility] (#[id number]) and the following diagnosis was rendered. A. Right breast lesion, ultrasound-guided core needle biopsy: Invasive ductal carcinoma, grade 3. B. Left breast lesion, ultrasound-guided core needle biopsy: Minute fragment of benign breast tissue. Please see complete above mentioned consultation report in EMR
--- NOTE | 2018-01-28 | IMM_PTH ---
PATIENT: ALESSANDRO DOTSON LOC: [facility] U#:[id number] AGE/SX: 79/F ROOM: RE01/28/[address]: Dr. Jose Holm MD : 1945 BED: DIS: SPEC #: [id number] RECD: 01/31/18 11:51 STATUS: TANO REQ #: [id number] HELEN: 01/28/18 00:[address]: Jose Holm DEPT: IMMUNOHISTOCHEMISTRY RECD BY: Rosi Ascencio ENTERED: 01/31/18 11:54 SP TYPE: IMMUNO OTHR DR: Dr. Senait Jay MD Tissues: A - Right breast, NOS Procedures: CALPONIN-1 (add) CK5-6 (add) CK8 (add) E-CAD (add) HER2 JORI (add) KI-67 (add) P53 (add) SD (add) P40 (add) ER (initial) PHYSICIAN & INSTITUTION [address] [address] SPECIMEN INFORMATION: Tissue Source: A. Right side ultrasound guided breast biopsy Clinical Info: Ultrasound guided breast biopsy Specimen Number: [id number] CPT code: 63134, 41034 x6, 08146 x3 METHODOLOGY: Deparaffinized sections of prefer/formalin-fixed tissue or PAP/DQ stained slides are incubated with monoclonal/polyclonal antibodies/oligonucleotide probes. Localization is made via biotin free immunoperoxidase method. Appropriate controls are performed and reacted as expected. Results on target cell population are indicated in the following table: RESULTS: ANTIBODY / CLONE RESULT Block A P53 (DO-7) positive, >95% Ki-67 (30-9) positive, moderate CK8 (89beoaA90) positive CK5-6 (D5 & 1684) negative Calponin-1 (OU306P) negative P40 (BC28) negative E-Cad (ECH-6) positive MORPHOMETRIC ANALYSIS ER (clone 6F11) 5%, weak to moderate SD (clone 16/1E2) 0 Her-2Neu (clone CB11) 0 The prognostic test for HER2 is performed on formalin-fixed paraffin embedded tissue. A 3+ (positive) staining pattern is defined as intense, homogeneous, complete, circumferential membranous staining in >10% of contiguous tumor cells. A similar weak (2+) staining pattern is interpreted as equivocal. KARLOS follow-up testing is recommended for all equivocal cases. Positivity/negativity for ER/SD is reported if > or < 1% of the tumor cells are immuno- reactive, respectively. The ASCO/CAP criteria is used for scoring. Reference: Journal of Clinical Oncology, 2013; 31:9063-4764 & 2010; 16:9753-0835. Duration of fixation: 20 Hrs; Sample Adequate: Yes. These assays have not been validated on decalcified tissues. Results should be interpreted with caution given the likelihood of false negativity on decalcified specimens. These tests were developed and their performance characteristics determined by [facility]. They may not have been cleared or approved by the U.S. Food and Drug Administration. The FDA has determined that such clearance or approval is not necessary. INTERPRETATION: Right breast mass core biopsy: Invasive ductal carcinoma, grade 3/3. Positive for estrogen receptors (favorable prognostic indicator). Negative for progesterone receptors (unfavorable prognostic indicator). Negative for overexpression of [id number]. AM:dania 02/01/18
== END ==
PROVIDERS: Family Provider Internal Medicine; PCP Internal Medicine; Visit Provider Surgery
DX: N63.10 Unspecified lump in the right breast, unspecified quadrant (principal); C50.912 Malignant neoplasm of unspecified site of left female breast; N60.32 Fibrosclerosis of left breast
CPT/HCPCS: 88305; 88341; 88342

== ENCOUNTER 2018-03-25 21:29 | Inpatient (IN) | payer MEDICARE, SELFPAY ==
[2018-03-25 21:37] VITALS: BP 129/76; PULSE 75; RESP 19; TEMP 36.4; O2SAT 96
[2018-03-25 21:38] VITALS: BMI 53.4
[2018-03-25 21:44] VITALS: BMI 53.4
[2018-03-25 21:55] VITALS: O2SAT 96
[2018-03-25 22:31] LABS: Bedside Glucose 160 mg/dL (70-110)
--- NOTE | 2018-03-25 23:14 | NURSING ---
Pt arrived from [facility] at 2130 via ambulance.
--- NOTE | 2018-03-25 23:14 | NURSING ---
Pt reports Duricef will give pt an upset stomach, pt currently ordered Keflex, Dr Avila aware. N.O. Doxycycline. Pt informed staff she does not like oxycodone. Dr Avila aware N.O. Ultram and tylenol.
[2018-03-25] MEDS: Pramipexole Di-HCl 0.5 MG Tablet PO (23:16)
[2018-03-25] MEDS: Loratadine 10 MG Tablet 5 MG PO (23:16)
[2018-03-25] MEDS: Doxycycline 100 MG CAPSULE PO (23:20)
--- NOTE | 2018-03-25 23:41 | PCM.HP.STD ---
Problem List (1) Breast cancer, right breast Status: Chronic (2) Cellulitis Status: Acute (3) Vitamin D deficiency Status: Acute (4) Hypertension Status: Chronic (5) Diabetes mellitus Status: Chronic (6) Allergic rhinitis Status: Chronic (7) GERD (gastroesophageal reflux disease) Status: Chronic (8) Restless leg syndrome Status: Chronic (9) Body mass index (BMI) 50-59.9, adult Status: Chronic (10) Migraine headache Status: Chronic (11) Obstructive sleep apnea Status: Chronic (12) Osteoarthritis Status: Chronic (13) Asthma Status: Chronic Qualifiers: History of Present Illness Date of Admission: 03/25/18 Chief Complaint: Here for rehabilitaton, strengthening, prior to discharge home with significant other. The patient is a 72 year old Female with below past medical history significant for right breast cancer, hospitalized at [facility], underwent right mastectomy with lymph node dissection, post-operative course complicated by wound infection. 03/25/2018 Admit to TCU with debility, here for rehabilitation, strengthening, prior to discharge home with significant other. Past Medical History Past Medical History (Chronic Problems): Chronic Problems Breast cancer, right breast (Chronic) Hypertension (Chronic) Diabetes mellitus (Chronic) Allergic rhinitis (Chronic) GERD (gastroesophageal reflux disease) (Chronic) Restless leg syndrome (Chronic) Body mass index (BMI) 50-59.9, adult (Chronic) Migraine headache (Chronic) Obstructive sleep apnea (Chronic) Osteoarthritis (Chronic) Celiac disease (Chronic) Asthma (Chronic) BMI 50.0-59.9, adult (Chronic) History of right breast cancer (Chronic) Diabetes mellitus, type II (Chronic) Anxiety and depression (Chronic) Allergies adhesive tape Allergy (Verified 11/24/17 13:31) Unknown listed on pcp allergy list cefadroxil [From Duricef] Allergy (Verified 11/24/17 13:31) Unknown mesalamine [From Asacol] Allergy (Verified 11/24/17 13:31) Unknown listed on pcp allergy list omalizumab [From Xolair] Allergy (Verified 11/24/17 13:31) Unknown listed on pcp allergy list Sulfa (Sulfonamide Antibiotics) Allergy (Verified 11/24/17 13:31) Unknown Home Medications: Ambulatory Orders Medication Instructions Recorded Cholecalciferol (Vitamin D3) 50,000 unit PO SUWE@0800 06/01/17 [Vitamin D3] Lansoprazole [Prevacid] 30 mg PO DAILY 06/01/17 Levocetirizine Dihydrochloride 5 mg PO QHS 06/01/17 [Xyzal] Pramipexole Di-HCl [Mirapex] 0.5 mg PO QHS 06/01/17 Montelukast [Singulair] 10 mg PO DAILY 11/24/17 Nadolol 40 mg PO DAILY 11/24/17 Albuterol Aerosols [Ventolin 2.5 mg INHALATION Q2H PRN PRN #1 11/26/17 Aerosols] box Albuterol IH (ProAir) [Proair Hfa 2 puff INHALATION Q6H PRN PRN 03/25/18 (SP)Vent Pts] Albuterol Inhaler [Ventolin Hfa 2 puff INHALATION Q6H PRN PRN 03/25/18 (SP)] Cephalexin [Keflex] 500 mg PO 4X/DAY 03/25/18 Hydrochlorothiazide 12.5 mg PO DAILY 03/25/18 Insulin NPH Human Isophane 82 unit SQ BID 03/25/18 [Humulin N Kwikpen] Ondansetron [Zofran Odt] 4 mg PO Q8H PRN PRN 03/25/18 Oxycodone HCl/Acetaminophen 1 tablet PO Q6H PRN PRN 03/25/18 [Percocet 5/325] Surgical History: mastectomy - Right, lymph node dissection., - - Rectocele repair. 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 Maternal History Items: Cancer Review of Systems Constitutional: Denies: Chills, Fever, Weight Change HEENT: Denies: Head Aches, Sinus Congestion, Sinus Drainage Cardiovascular: Denies: Chest Pain, Palpitations Respiratory: Denies: Cough, Shortness of breath at rest, Sputum production Gastrointestinal: Denies: Abdominal Pain, Nausea, Vomiting Genitourinary: Denies: Dysuria Musculoskeletal: Denies: Joint Pain, Joint Tenderness Skin: Denies: Rash, Wounds Neurological: Denies: Numbness, Tingling, Focal weakness Psychiatric: Denies: Anxiety, Depression, Homicidal Ideations, Suicidal Ideations Hematologic/ Lymphatic: Denies: Easy Bruising, Easy Bleeding VTE Information - Inpt Only VTE Present on Admission: No VTE Mechan Device Prophylaxis: Knee High IVETTE Hose VTE Pharm Prophylaxis ordered?: Yes Patient Problems: Active and Suspected Problems Cellulitis (Acute) Vitamin D deficiency (Acute) - Physical Exam General: Alert, Oriented x3, Cooperative HEENT: Atraumatic, PERRLA, EOMI, Normocephalic Neck: Supple, No JVD, Negative Carotid Bruits Lungs: Clear to auscultation, Normal air movement Cardiovascular: Regular rate, No murmurs Abdomen: Bowel Sounds Present, Soft, Non Tender Extremities: No edema, Capillary Refill Less than 3 Seconds Skin: No rashes, No breakdown, Incision - Right breast clean, dry, intact. Musculoskeletal: No Tenderness to Palpation of Joints or Extremities Neurological: Cranial nerves II-XII grossly intact Psych/Mental Status: Normal Affect, Appropriate Vital Signs Temp Pulse Resp BP Pulse Ox 97.5 F L 75 19 H 129/76 H 96 03/25/18 21:37 03/25/18 21:37 03/25/18 21:37 03/25/18 21:37 03/25/18 21:55 Oxygen Flow Rate (L/min) 3 Oxygen Delivery Method Nasal Cannula Weight: 136.758 kg Body Mass Index (BMI) 53.4 Finger Stick Blood Glucose 154 Intake and Output for Last 24 Hours 03/23/18 03/24/18 03/25/18 23:59 23:59 23:59 Output Total 30 / 30 Balance -30 / -30 POC Glucose 03/25/18 22:22 POC Glucose 160 H Assessment/Plan All Active Problems Acute respiratory failure with hypoxia (Acute) Cellulitis (Acute) Vitamin D deficiency (Acute) Acute bronchitis due to Rhinovirus (Acute) Fever (Acute) Encephalopathy (Acute) Staphylococcal pneumonia (Ruled-out) Streptococcal pneumonia (Ruled-out) Acute and chronic respiratory failure with hypoxia (Ruled-out) Cellulitis of right breast (Ruled-out) Sleep apnea (Acute) Influenza (Acute) Acute asthma exacerbation (Acute) 72 year old female with below past medical history significant for right breast cancer, underwent right mastectomy with lymph node dissection, admitted to TCU with debility, here for rehabilitation, strengthening, prior to discharge home with significant other. Debility - PT/OT. Pain - Tylenol 1000MG Q8H PRN mild pain, Tramadol 50MG Q6H PRN moderate pain. Bowel - Miralax 17GM daily, Senna/colace 2 tablets BID, Dulcolax 10MG PO daily PRN. Pneumonia vaccination - Administer Prevnar 13 and/or Pneumovax 23 as necessary. DVT prophylaxis - Lovenox 40MG SC daily. Asthma - Albuterol 2.5MG Q2H PRN, Singulair 10MG daily. Wound infection - Doxycycline 100MG BID thru 04/01/2018. Vitamin D deficiency - D2 50,000 2 days/week. Hypertension - Nadolol 40MG daily, HCTZ 12.5MG daily. Diabetes Mellitus II - Insulin N 60 units BID, follow blood sugars. Allergic Rhinitis - Loratadine 5MG QHS. Nausea - Zofran 4MG Q8H PRN. GERD - Pantoprazole 40MG daily. Restless Legs Syndrome - Mirapex 0.5MG QHS.
--- NOTE | 2018-03-25 23:47 | HP.PCM_ITS ---
Problem List (1) Breast cancer, right breast Status: Chronic (2) Cellulitis Status: Acute (3) Vitamin D deficiency Status: Acute (4) Hypertension Status: Chronic (5) Diabetes mellitus Status: Chronic (6) Allergic rhinitis Status: Chronic (7) GERD (gastroesophageal reflux disease) Status: Chronic (8) Restless leg syndrome Status: Chronic (9) Body mass index (BMI) 50-59.9, adult Status: Chronic (10) Migraine headache Status: Chronic (11) Obstructive sleep apnea Status: Chronic (12) Osteoarthritis Status: Chronic (13) Asthma Status: Chronic Qualifiers: History of Present Illness Date of Admission: 03/25/18 Chief Complaint: Here for rehabilitaton, strengthening, prior to discharge home with significant other. The patient is a 72 year old Female with below past medical history significant for right breast cancer, hospitalized at [facility], underwent right mastectomy with lymph node dissection, post-operative course complicated by wound infection. 03/25/2018 Admit to TCU with debility, here for rehabilitation, strengthening, prior to discharge home with significant other. Past Medical History Past Medical History (Chronic Problems): Chronic Problems Breast cancer, right breast (Chronic) Hypertension (Chronic) Diabetes mellitus (Chronic) Allergic rhinitis (Chronic) GERD (gastroesophageal reflux disease) (Chronic) Restless leg syndrome (Chronic) Body mass index (BMI) 50-59.9, adult (Chronic) Migraine headache (Chronic) Obstructive sleep apnea (Chronic) Osteoarthritis (Chronic) Celiac disease (Chronic) Asthma (Chronic) BMI 50.0-59.9, adult (Chronic) History of right breast cancer (Chronic) Diabetes mellitus, type II (Chronic) Anxiety and depression (Chronic) Allergies adhesive tape Allergy (Verified 11/24/17 13:31) Unknown listed on pcp allergy list cefadroxil [From Duricef] Allergy (Verified 11/24/17 13:31) Unknown mesalamine [From Asacol] Allergy (Verified 11/24/17 13:31) Unknown listed on pcp allergy list omalizumab [From Xolair] Allergy (Verified 11/24/17 13:31) Unknown listed on pcp allergy list Sulfa (Sulfonamide Antibiotics) Allergy (Verified 11/24/17 13:31) Unknown Home Medications: Ambulatory Orders Medication Instructions Recorded Cholecalciferol (Vitamin D3) 50,000 unit PO SUWE@0800 06/01/17 [Vitamin D3] Lansoprazole [Prevacid] 30 mg PO DAILY 06/01/17 Levocetirizine Dihydrochloride 5 mg PO QHS 06/01/17 [Xyzal] Pramipexole Di-HCl [Mirapex] 0.5 mg PO QHS 06/01/17 Montelukast [Singulair] 10 mg PO DAILY 11/24/17 Nadolol 40 mg PO DAILY 11/24/17 Albuterol Aerosols [Ventolin 2.5 mg INHALATION Q2H PRN PRN #1 11/26/17 Aerosols] box Albuterol IH (ProAir) [Proair Hfa 2 puff INHALATION Q6H PRN PRN 03/25/18 (SP)Vent Pts] Albuterol Inhaler [Ventolin Hfa 2 puff INHALATION Q6H PRN PRN 03/25/18 (SP)] Cephalexin [Keflex] 500 mg PO 4X/DAY 03/25/18 Hydrochlorothiazide 12.5 mg PO DAILY 03/25/18 Insulin NPH Human Isophane 82 unit SQ BID 03/25/18 [Humulin N Kwikpen] Ondansetron [Zofran Odt] 4 mg PO Q8H PRN PRN 03/25/18 Oxycodone HCl/Acetaminophen 1 tablet PO Q6H PRN PRN 03/25/18 [Percocet 5/325] Surgical History: mastectomy - Right, lymph node dissection., - - Rectocele repair. 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 Maternal History Items: Cancer Review of Systems Constitutional: Denies: Chills, Fever, Weight Change HEENT: Denies: Head Aches, Sinus Congestion, Sinus Drainage Cardiovascular: Denies: Chest Pain, Palpitations Respiratory: Denies: Cough, Shortness of breath at rest, Sputum production Gastrointestinal: Denies: Abdominal Pain, Nausea, Vomiting Genitourinary: Denies: Dysuria Musculoskeletal: Denies: Joint Pain, Joint Tenderness Skin: Denies: Rash, Wounds Neurological: Denies: Numbness, Tingling, Focal weakness Psychiatric: Denies: Anxiety, Depression, Homicidal Ideations, Suicidal Ideations Hematologic/ Lymphatic: Denies: Easy Bruising, Easy Bleeding VTE Information - Inpt Only VTE Present on Admission: No VTE Mechan Device Prophylaxis: Knee High IVETTE Hose VTE Pharm Prophylaxis ordered?: Yes Patient Problems: Active and Suspected Problems Cellulitis (Acute) Vitamin D deficiency (Acute) - Physical Exam General: Alert, Oriented x3, Cooperative HEENT: Atraumatic, PERRLA, EOMI, Normocephalic Neck: Supple, No JVD, Negative Carotid Bruits Lungs: Clear to auscultation, Normal air movement Cardiovascular: Regular rate, No murmurs Abdomen: Bowel Sounds Present, Soft, Non Tender Extremities: No edema, Capillary Refill Less than 3 Seconds Skin: No rashes, No breakdown, Incision - Right breast clean, dry, intact. Musculoskeletal: No Tenderness to Palpation of Joints or Extremities Neurological: Cranial nerves II-XII grossly intact Psych/Mental Status: Normal Affect, Appropriate Vital Signs Temp Pulse Resp BP Pulse Ox 97.5 F L 75 19 H 129/76 H 96 03/25/18 21:37 03/25/18 21:37 03/25/18 21:37 03/25/18 21:37 03/25/18 21:55 Oxygen Flow Rate (L/min) 3 Oxygen Delivery Method Nasal Cannula Weight: 136.758 kg Body Mass Index (BMI) 53.4 Finger Stick Blood Glucose 154 Intake and Output for Last 24 Hours 03/23/18 03/24/18 03/25/18 23:59 23:59 23:59 Output Total 30 / 30 Balance -30 / -30 POC Glucose 03/25/18 22:22 POC Glucose 160 H Assessment/Plan All Active Problems Acute respiratory failure with hypoxia (Acute) Cellulitis (Acute) Vitamin D deficiency (Acute) Acute bronchitis due to Rhinovirus (Acute) Fever (Acute) Encephalopathy (Acute) Staphylococcal pneumonia (Ruled-out) Streptococcal pneumonia (Ruled-out) Acute and chronic respiratory failure with hypoxia (Ruled-out) Cellulitis of right breast (Ruled-out) Sleep apnea (Acute) Influenza (Acute) Acute asthma exacerbation (Acute) 72 year old female with below past medical history significant for right breast cancer, underwent right mastectomy with lymph node dissection, admitted to TCU with debility, here for rehabilitation, strengthening, prior to discharge home with significant other. * Debility - PT/OT. * Pain - Tylenol 1000MG Q8H PRN mild pain, Tramadol 50MG Q6H PRN moderate pain. * Bowel - Miralax 17GM daily, Senna/colace 2 tablets BID, Dulcolax 10MG PO daily PRN. * Pneumonia vaccination - Administer Prevnar 13 and/or Pneumovax 23 as necessary. * DVT prophylaxis - Lovenox 40MG SC daily. * Asthma - Albuterol 2.5MG Q2H PRN, Singulair 10MG daily. * Wound infection - Doxycycline 100MG BID thru 04/01/2018. * Vitamin D deficiency - D2 50,000 2 days/week. * Hypertension - Nadolol 40MG daily, HCTZ 12.5MG daily. * Diabetes Mellitus II - Insulin N 60 units BID, follow blood sugars. * Allergic Rhinitis - Loratadine 5MG QHS. * Nausea - Zofran 4MG Q8H PRN. * GERD - Pantoprazole 40MG daily. * Restless Legs Syndrome - Mirapex 0.5MG QHS.
[2018-03-26] MEDS: Pantoprazole Sodium 40 MG Tablet PO (05:47)
[2018-03-26] MEDS: hydroCHLOROthiazide 12.5mg 12.5 MG PO (05:47)
[2018-03-26] MEDS: Nadolol 40 MG Tablet PO (05:47)
[2018-03-26] MEDS: Montelukast 10 MG Tablet PO (05:47)
[2018-03-26] MEDS: Doxycycline 100 MG CAPSULE PO ×2 (05:48→18:10)
[2018-03-26 06:31] LABS: Bedside Glucose 153 mg/dL (70-110)
[2018-03-26 07:14] LABS: Absolute Lymphocyte Count 1.88 X10^3/ul (0.83-4.51); Absolute Neutrophil Count 4.3 X10^3/uL (2.0-7.7); Basophil# 0.06 X10^3/uL; Basophil% 0.8 % (0-1); Eosinophil# 0.85 X10^3/uL; Eosinophils% 10.9 % (0-5); Hematocrit 39.1 % (37-47); Lymphocyte # 1.88 X10^3/ul (4.0); Lymphocyte % 24.2 % (19-41); Mean Corp Hgb Conc 33.2 g/gl (32-36); Mean Corpuscular Hgb 29.5 pg (27.0-32.0); Mean Corpuscular Volume 88.7 fL (81-99); Monocyte# 0.63 X10^3/uL; Monocyte% 8.1 % (0-10); Neutrophil # 4.34 X10^3/uL (2.7-7.7); Neutrophil % 55.7 % (47-70); Platelet Count 185 K/mm3 (150-450); RBC Distribution Width CV 13.2 % (11.6-14.6); RBC Distribution Width SD 41.9 fl (35.1-43.9); Red Blood Count 4.41 M/mm3 (4.2-5.4); White Blood Count 7.8 K/mm3 (4.4-11.0)
[2018-03-26 07:16] LABS: POSITIVE COUNT NO; POSITIVE DIFFERENTIAL NO; POSITIVE MORPHOLOGY NO
[2018-03-26] MEDS: Insulin NPH Human 100 UNITS/ML PEN 82 UNITS SC ×2 (07:52→18:19)
[2018-03-26 08:09] LABS: Anion Gap 9 (5-15); BUN 18 mg/dL (7-18); BUN/Creat Ratio 21.6 RATIO (10-20); Calcium,Total 9.7 mg/dL (8.5-10.1); Chloride 98 mmol/L (98-107); Creatinine, Serum 0.83 mg/dL (0.55-1.02); EST Glomerular Filtration Rate 72 mL/min (>60); Est Glom Filt Rate - Afr Amer 87 mL/min (>60); Estimated Creatinine Clearance 51.43 ml/min; Glucose 157 mg/dL (74-106); Potassium 3.4 mmol/L (3.5-5.1); Sodium Level 140 mmol/L (136-145)
[2018-03-26 08:55] VITALS: PULSE 63; RESP 18; O2SAT 96
[2018-03-26] MEDS: Albuterol 2.5 MG/3 ML VIAL.NEB. INHALATION ×3 (08:55→23:45)
[2018-03-26] MEDS: Enoxaparin 40 MG/0.4 ML Syringe SC (10:25)
[2018-03-26] MEDS: Tuberculin,Purif.prot.deriv. 50 TU/ML Vial 5 ML ID (10:27)
[2018-03-26 11:56] LABS: Bedside Glucose 133 mg/dL (70-110)
--- NOTE | 2018-03-26 14:13 | NURSING ---
Potassium 3.4 today, Dr. Avila updated. NO for potassium chloride 10mEq x1 now and then 10mEq daily. Recheck BMP in AM.
[2018-03-26] MEDS: Acetaminophen 500 MG Tablet 1000 MG PO (14:49)
[2018-03-26 15:03] VITALS: BP 128/56; PULSE 67; RESP 18; TEMP 35.9; O2SAT 93
--- NOTE | 2018-03-26 15:04 | NURSING ---
pt weaned to room air. notified
[2018-03-26 17:06] LABS: Bedside Glucose 125 mg/dL (70-110)
[2018-03-26 18:00] VITALS: PULSE 67; RESP 18; O2SAT 99
--- NOTE | 2018-03-26 18:10 | NURSING ---
When administering Humulin N 82 units, R' refused full dose because pen only goes to 60 units and she does not want to be stuck with a needle twice. Was only given 60 units. Noted in MAR.
[2018-03-26] MEDS: Loratadine 10 MG Tablet 5 MG PO (21:01)
[2018-03-26] MEDS: Pramipexole Di-HCl 0.5 MG Tablet PO (21:02)
[2018-03-26 21:10] VITALS: PULSE 73; RESP 16; O2SAT 95
[2018-03-26 21:21] LABS: Bedside Glucose 163 mg/dL (70-110)
[2018-03-26 23:45] VITALS: PULSE 70; RESP 18
[2018-03-27] MEDS: Pantoprazole Sodium 40 MG Tablet PO (06:38)
[2018-03-27] MEDS: Nadolol 40 MG Tablet PO (06:38)
[2018-03-27] MEDS: Doxycycline 100 MG CAPSULE PO ×2 (06:38→18:00)
[2018-03-27] MEDS: Montelukast 10 MG Tablet PO (06:38)
[2018-03-27] MEDS: hydroCHLOROthiazide 12.5mg 12.5 MG PO (06:38)
[2018-03-27] MEDS: Enoxaparin 40 MG/0.4 ML Syringe SC (06:40)
[2018-03-27 06:41] LABS: Bedside Glucose 95 mg/dL (70-110)
[2018-03-27] MEDS: Insulin NPH Human 100 UNITS/ML PEN 82 UNITS SC ×2 (06:45→18:01)
[2018-03-27] MEDS: Menthol/Lanolin/Calamine/Znox 113 GM Tube 1 APPLIC TOPICAL ×2 (06:49→20:22)
[2018-03-27 08:04] LABS: Anion Gap 4 (5-15); BUN 13 mg/dL (7-18); BUN/Creat Ratio 17.6 RATIO (10-20); Calcium,Total 9.3 mg/dL (8.5-10.1); Chloride 100 mmol/L (98-107); Creatinine, Serum 0.74 mg/dL (0.55-1.02); EST Glomerular Filtration Rate 83 mL/min (>60); Est Glom Filt Rate - Afr Amer 100 mL/min (>60); Estimated Creatinine Clearance 42.68 ml/min; Glucose 101 mg/dL (74-106); Potassium 3.6 mmol/L (3.5-5.1); Sodium Level 140 mmol/L (136-145)
[2018-03-27] MEDS: Albuterol 2.5 MG/3 ML VIAL.NEB. INHALATION ×2 (11:25→19:56)
[2018-03-27 11:45] LABS: Bedside Glucose 176 mg/dL (70-110)
[2018-03-27 12:02] VITALS: PULSE 75; RESP 18; O2SAT 91
--- NOTE | 2018-03-27 14:42 | NURSING ---
Dr. Avila reviewed labs, NNO.
[2018-03-27 15:33] VITALS: BP 127/61; PULSE 72; RESP 14; TEMP 36.1; O2SAT 92
[2018-03-27 16:55] LABS: Bedside Glucose 143 mg/dL (70-110)
[2018-03-27 19:56] VITALS: PULSE 81; RESP 18
[2018-03-27] MEDS: Pramipexole Di-HCl 0.5 MG Tablet PO (20:15)
[2018-03-27] MEDS: Loratadine 10 MG Tablet 5 MG PO (20:15)
[2018-03-27 21:10] LABS: Bedside Glucose 200 mg/dL (70-110)
[2018-03-27 21:48] VITALS: PULSE 88; RESP 16
[2018-03-28] MEDS: Nadolol 40 MG Tablet PO (05:53)
[2018-03-28] MEDS: Montelukast 10 MG Tablet PO (05:53)
[2018-03-28] MEDS: Doxycycline 100 MG CAPSULE PO ×2 (05:53→17:14)
[2018-03-28] MEDS: Pantoprazole Sodium 40 MG Tablet PO (05:53)
[2018-03-28] MEDS: hydroCHLOROthiazide 12.5mg 12.5 MG PO (05:53)
[2018-03-28] MEDS: Enoxaparin 40 MG/0.4 ML Syringe SC (05:55)
[2018-03-28] MEDS: Menthol/Lanolin/Calamine/Znox 113 GM Tube 1 APPLIC TOPICAL ×2 (06:00→21:30)
[2018-03-28] MEDS: Albuterol 2.5 MG/3 ML VIAL.NEB. INHALATION (06:17)
[2018-03-28] MEDS: Insulin NPH Human 100 UNITS/ML PEN 82 UNITS SC (06:21)
[2018-03-28 06:56] LABS: Bedside Glucose 110 mg/dL (70-110)
[2018-03-28 11:05] LABS: Bedside Glucose 162 mg/dL (70-110)
--- NOTE | 2018-03-28 13:19 | CASEMGMT ---
Reviewed and approved attached social work student documentation. Lara RODRIGUEZ, ENGINE INSPECTOR
[2018-03-28] MEDS: Acetaminophen 500 MG Tablet 1000 MG PO (14:00)
[2018-03-28] MEDS: traMADol 50 MG Tablet PO (14:01)
[2018-03-28 15:34] VITALS: BP 139/68; PULSE 66; RESP 18; TEMP 36.6; O2SAT 98
[2018-03-28 17:11] LABS: Bedside Glucose 151 mg/dL (70-110)
[2018-03-28] MEDS: Insulin NPH Human 100 UNITS/ML PEN 60 UNITS SC (17:17)
--- NOTE | 2018-03-28 17:22 | NURSING ---
pt refusing stool softeners. pt is gluten free and reports that she does not need them, moving bowels just fine. changed meds to PRN
[2018-03-28 21:11] LABS: Bedside Glucose 150 mg/dL (70-110)
[2018-03-28] MEDS: Loratadine 10 MG Tablet 5 MG PO (21:28)
[2018-03-28] MEDS: Pramipexole Di-HCl 0.5 MG Tablet PO (21:28)
[2018-03-28 21:31] VITALS: O2SAT 95
[2018-03-29] MEDS: Enoxaparin 40 MG/0.4 ML Syringe SC (06:28)
[2018-03-29] MEDS: Montelukast 10 MG Tablet PO (06:28)
[2018-03-29] MEDS: Pantoprazole Sodium 40 MG Tablet PO (06:28)
[2018-03-29] MEDS: hydroCHLOROthiazide 12.5mg 12.5 MG PO (06:28)
[2018-03-29] MEDS: Doxycycline 100 MG CAPSULE PO ×2 (06:28→17:10)
[2018-03-29] MEDS: Nadolol 40 MG Tablet PO (06:30)
[2018-03-29] MEDS: Menthol/Lanolin/Calamine/Znox 113 GM Tube 1 APPLIC TOPICAL ×2 (06:30→20:28)
[2018-03-29 06:46] LABS: Bedside Glucose 117 mg/dL (70-110)
[2018-03-29 08:00] VITALS: O2SAT 95
[2018-03-29] MEDS: Insulin NPH Human 100 UNITS/ML PEN 60 UNITS SC ×2 (08:33→17:10)
--- NOTE | 2018-03-29 10:38 | NURSING ---
Pt has c/o of a moist, productive cough with thick, yellow sputum. Dr. Avila updated. NO for Carlie.
[2018-03-29 11:01] LABS: Bedside Glucose 177 mg/dL (70-110)
[2018-03-29] MEDS: Acetaminophen 500 MG Tablet 1000 MG PO (11:46)
[2018-03-29] MEDS: Azithromycin 250 MG Tablet 500 MG PO (11:46)
--- NOTE | 2018-03-29 13:20 | NURSING ---
Spoke with nurse at Dr. Ferrer's office. Per nurse, call office if SIMON drain output goes BELOW 30mL daily.
--- NOTE | 2018-03-29 13:54 | PCM.PN.RX ---
<Dread Torres D - Last Filed: 03/29/18 13:54> Progress Note - Pharmacy Subjective: TCU Admission Objective: Allergies adhesive tape Allergy (Verified 11/24/17 13:31) Unknown listed on pcp allergy list cefadroxil [From Duricef] Allergy (Verified 11/24/17 13:31) Unknown mesalamine [From Asacol] Allergy (Verified 11/24/17 13:31) Unknown listed on pcp allergy list omalizumab [From Xolair] Allergy (Verified 11/24/17 13:31) Unknown listed on pcp allergy list Sulfa (Sulfonamide Antibiotics) Allergy (Verified 11/24/17 13:31) Unknown Current Medications Generic Name Dose Route Start Last Admin Trade Name Freq PRN Reason Stop Dose Admin Acetaminophen 1,000 mg 03/25/18 23:55 03/29/18 11:46 Tylenol PO 1,000 mg Q8H PRN PRN Administration MILD PAIN (1-3/10) Albuterol Sulfate 2.5 mg 03/25/18 22:07 03/28/18 06:17 Ventolin Aerosols INHALATION 2.5 mg Q2H PRN PRN Administration Dyspnea, wheezing Azithromycin 250 mg 03/30/18 10:00 Zithromax PO 04/03/18 10:01 Q24 [facility] Bisacodyl 10 mg 03/25/18 23:55 Dulcolax PO DAILY PRN Constipation Calamine/Phenol 1 applic 03/27/18 06:00 03/29/18 06:30 Calmoseptine Ointment TOPICAL 1 applicatio 0600,2200 [facility] Administration Protocol Doxycycline Monohydrate 100 mg 03/25/18 23:15 03/29/18 06:28 Doxycycline PO 04/01/18 23:16 100 mg BID STACY Administration Enoxaparin Sodium 40 mg 03/26/18 10:00 03/29/18 06:28 Lovenox SC 40 mg DAILY@0600 [facility] Administration Ergocalciferol 50,000 unit 03/27/18 08:00 03/27/18 09:04 Vitamin D PO 50,000 unit SUWE@0800 [facility] Administration Hydrochlorothiazide 12.5 mg 03/26/18 06:00 03/29/18 06:28 Hydrochlorothiazide PO 12.5 mg DAILY [facility] Administration Insulin Human NPH 60 units 03/28/18 16:30 03/29/18 08:33 Humulin N (Bkc) SC 60 units BIDAC STACY Administration Loratadine 5 mg 03/25/18 22:30 03/28/18 21:28 Claritin PO 5 mg QHS STACY Administration Montelukast Sodium 10 mg 03/26/18 06:00 03/29/18 06:28 Singulair PO 10 mg DAILY STACY Administration Nadolol 40 mg 03/26/18 06:00 03/29/18 06:30 Corgard PO 40 mg DAILY STACY Administration Ondansetron HCl 4 mg 03/25/18 22:07 Zofran Odt PO Q8H PRN PRN NAUSEA Pantoprazole Sodium 40 mg 03/26/18 06:00 03/29/18 06:28 Protonix PO 40 mg DAILY STACY Administration Polyethylene Glycol 17 gm 03/28/18 17:21 Miralax PO DAILY PRN constipation Potassium Chloride 10 meq 03/27/18 08:00 03/29/18 08:33 K-Dur PO 10 meq DAILYCM STACY Administration Pramipexole Dihydrochloride 0.5 mg 03/25/18 22:30 03/28/18 21:28 Mirapex PO 0.5 mg QHS [facility] Administration Senna/Docusate Sodium 2 tablet 03/28/18 17:22 Senokot-S, Rianna-Colace PO BID PRN Constipation Tramadol HCl 50 mg 03/25/18 23:13 03/28/18 14:01 Ultram PO 50 mg Q6H PRN PRN Administration MODERATE PAIN (4-5/10) Tuberculin PPD 5 tu 04/02/18 10:00 Tubersol, Aplisol, Ppd ID 04/02/18 10:01 X1 ONE Problem List Breast cancer, right breast (Chronic) Cellulitis (Acute) Vitamin D deficiency (Acute) Hypertension (Chronic) Diabetes mellitus (Chronic) Allergic rhinitis (Chronic) GERD (gastroesophageal reflux disease) (Chronic) Restless leg syndrome (Chronic) Body mass index (BMI) 50-59.9, adult (Chronic) Migraine headache (Chronic) Obstructive sleep apnea (Chronic) Osteoarthritis (Chronic) Vital Signs Temp Pulse Resp BP Pulse Ox 97.8 F 66 18 139/68 H 95 03/28/18 15:34 03/28/18 15:34 03/28/18 15:34 03/28/18 15:34 03/29/18 08:00 Oxygen Flow Rate (L/min) 3 Oxygen Delivery Method Nasal Cannula Weight: 135.199 kg Body Mass Index (BMI) 53.4 Finger Stick Blood Glucose 154 Sodium 140 mmol/L (136-145) 03/27/18 07:06 Potassium 3.6 mmol/L (3.5-5.1) 03/27/18 07:06 Chloride 100 mmol/L (98-107) 03/27/18 07:06 Carbon Dioxide 36.0 mmol/L (21.0-32.0) H 03/27/18 07:06 Anion Gap 4 (5-15) L 03/27/18 07:06 BUN 13 mg/dL (7-18) 03/27/18 07:06 Creatinine 0.74 mg/dL (0.55-1.02) 03/27/18 07:06 Est GFR (MDRD) Af Amer 100 mL/min (>60) 03/27/18 07:06 Est GFR (MDRD) Non-Af 83 mL/min (>60) 03/27/18 07:06 BUN/Creatinine Ratio 17.6 RATIO (10-20) 03/27/18 07:06 Glucose 101 mg/dL (74-106) 03/27/18 07:06 Assessment/Plan: 1) Pain APAP for mild pain, tramadol for moderate pain. Continue to monitor prn medication use, daily pain scores. 2) ID Montelukast, loratadine, prn albuterol. Continue to monitor prn medication use, for shortness of breath. 3) ID Azithromycin, doxycycline. Continue to monitor s/s infection. 4) HTN HCTZ, nadolol. Continue to monitor BP/HR, renal function. 5) DVT PPx Enoxaparin daily. Continue to monitor s/s bleeding/clot. 6) GI Pantoprazole, ondansetron prn. Continue to monitor s/s GI distress, prn medication use. 7) Nutrition D, KCL. Continue to monitor electrolytes. 8) RLS Pramipexole at HS. Continue to monitor for restless legs. Psychotropic Medications: None Unnecessary Medications: None Bowel Regimen: 9) Prn senna/s, PEG, bisacodyl. Continue to monitor prn medication use, for constipation/diarrhea. Date of Note:: 03/29/18 - Provider Comments Provider responsibility: Provider responsible to enter orders to implement recommendations <Gigi Avila Chi - Last Filed: 03/29/18 18:03> Progress Note - Pharmacy Subjective: [] Objective: Allergies adhesive tape Allergy (Verified 11/24/17 13:31) Unknown listed on pcp allergy list cefadroxil [From Duricef] Allergy (Verified 11/24/17 13:31) Unknown mesalamine [From Asacol] Allergy (Verified 11/24/17 13:31) Unknown listed on pcp allergy list omalizumab [From Xolair] Allergy (Verified 11/24/17 13:31) Unknown listed on pcp allergy list Sulfa (Sulfonamide Antibiotics) Allergy (Verified 11/24/17 13:31) Unknown Current Medications Generic Name Dose Route Start Last Admin Trade Name Freq PRN Reason Stop Dose Admin Acetaminophen 1,000 mg 03/25/18 23:55 03/29/18 11:46 Tylenol PO 1,000 mg Q8H PRN PRN Administration MILD PAIN (1-3/10) Albuterol Sulfate 2.5 mg 03/25/18 22:07 03/28/18 06:17 Ventolin Aerosols INHALATION 2.5 mg Q2H PRN PRN Administration Dyspnea, wheezing Azithromycin 250 mg 03/30/18 10:00 Zithromax PO 04/03/18 10:01 Q24 [facility]AC[facility] Bisacodyl 10 mg 03/25/18 23:55 Dulcolax PO DAILY PRN Constipation Calamine/Phenol 1 applic 03/27/18 06:00 03/29/18 06:30 Calmoseptine Ointment TOPICAL 1 applicatio 0600,2200 [facility] Administration Protocol Doxycycline Monohydrate 100 mg 03/25/18 23:15 03/29/18 17:10 Doxycycline PO 04/01/18 23:16 100 mg BID [facility] Administration Enoxaparin Sodium 40 mg 03/26/18 10:00 03/29/18 06:28 Lovenox SC 40 mg DAILY@0600 [facility] Administration Ergocalciferol 50,000 unit 03/27/18 08:00 03/27/18 09:04 Vitamin D PO 50,000 unit SUWE@0800 [facility] Administration Hydrochlorothiazide 12.5 mg 03/26/18 06:00 03/29/18 06:28 Hydrochlorothiazide PO 12.5 mg DAILY STACY Administration Insulin Human NPH 60 units 03/28/18 16:30 03/29/18 17:10 Humulin N (Bkc) SC 60 units BIDAC STACY Administration Loratadine 5 mg 03/25/18 22:30 03/28/18 21:28 Claritin PO 5 mg QHS STACY Administration Montelukast Sodium 10 mg 03/26/18 06:00 03/29/18 06:28 Singulair PO 10 mg DAILY STACY Administration Nadolol 40 mg 03/26/18 06:00 03/29/18 06:30 Corgard PO 40 mg DAILY STACY Administration Ondansetron HCl 4 mg 03/25/18 22:07 Zofran Odt PO Q8H PRN PRN NAUSEA Pantoprazole Sodium 40 mg 03/26/18 06:00 03/29/18 06:28 Protonix PO 40 mg DAILY STACY Administration Polyethylene Glycol 17 gm 03/28/18 17:21 Miralax PO DAILY PRN constipation Potassium Chloride 10 meq 03/27/18 08:00 03/29/18 08:33 K-Dur PO 10 meq DAILYCM [facility] Administration Pramipexole Dihydrochloride 0.5 mg 03/25/18 22:30 03/28/18 21:28 Mirapex PO 0.5 mg QHS [facility] Administration Senna/Docusate Sodium 2 tablet 03/28/18 17:22 Senokot-S, Rianna-Colace PO BID PRN Constipation Tramadol HCl 50 mg 03/25/18 23:13 03/28/18 14:01 Ultram PO 50 mg Q6H PRN PRN Administration MODERATE PAIN (4-5/10) Tuberculin PPD 5 tu 04/02/18 10:00 Tubersol, Aplisol, Ppd ID 04/02/18 10:01 X1 ONE Problem List Breast cancer, right breast (Chronic) Cellulitis (Acute) Vitamin D deficiency (Acute) Hypertension (Chronic) Diabetes mellitus (Chronic) Allergic rhinitis (Chronic) GERD (gastroesophageal reflux disease) (Chronic) Restless leg syndrome (Chronic) Body mass index (BMI) 50-59.9, adult (Chronic) Migraine headache (Chronic) Obstructive sleep apnea (Chronic) Osteoarthritis (Chronic) Vital Signs Temp Pulse Resp BP Pulse Ox 97.2 F L 70 14 138/65 H 97 03/29/18 16:00 03/29/18 16:00 03/29/18 16:00 03/29/18 16:00 03/29/18 16:00 Oxygen Flow Rate (L/min) 2 Oxygen Delivery Method Nasal Cannula Weight: 135.199 kg Body Mass Index (BMI) 53.4 Finger Stick Blood Glucose 154 Sodium 140 mmol/L (136-145) 03/27/18 07:06 Potassium 3.6 mmol/L (3.5-5.1) 03/27/18 07:06 Chloride 100 mmol/L (98-107) 03/27/18 07:06 Carbon Dioxide 36.0 mmol/L (21.0-32.0) H 03/27/18 07:06 Anion Gap 4 (5-15) L 03/27/18 07:06 BUN 13 mg/dL (7-18) 03/27/18 07:06 Creatinine 0.74 mg/dL (0.55-1.02) 03/27/18 07:06 Est GFR (MDRD) Af Amer 100 mL/min (>60) 03/27/18 07:06 Est GFR (MDRD) Non-Af 83 mL/min (>60) 03/27/18 07:06 BUN/Creatinine Ratio 17.6 RATIO (10-20) 03/27/18 07:06 Glucose 101 mg/dL (74-106) 03/27/18 07:06 Assessment/Plan: Psychotropic Medications: Unnecessary Medications: Bowel Regimen: - Provider Comments Provider responsibility: Provider responsible to enter orders to implement recommendations Provider Comments to Recommendations by Pharmacy: Agree
--- NOTE | 2018-03-29 14:02 | PHA.CONS_ITS ---
<Dread Torres D - Last Filed: 03/29/18 13:54> Progress Note - Pharmacy Subjective: TCU Admission Objective: Allergies adhesive tape Allergy (Verified 11/24/17 13:31) Unknown listed on pcp allergy list cefadroxil [From Duricef] Allergy (Verified 11/24/17 13:31) Unknown mesalamine [From Asacol] Allergy (Verified 11/24/17 13:31) Unknown listed on pcp allergy list omalizumab [From Xolair] Allergy (Verified 11/24/17 13:31) Unknown listed on pcp allergy list Sulfa (Sulfonamide Antibiotics) Allergy (Verified 11/24/17 13:31) Unknown Current Medications Generic Name Dose Route Start Last Admin Trade Name Freq PRN Reason Stop Dose Admin Acetaminophen 1,000 mg 03/25/18 23:55 03/29/18 11:46 Tylenol PO 1,000 mg Q8H PRN PRN Administration MILD PAIN (1-3/10) Albuterol Sulfate 2.5 mg 03/25/18 22:07 03/28/18 06:17 Ventolin Aerosols INHALATION 2.5 mg Q2H PRN PRN Administration Dyspnea, wheezing Azithromycin 250 mg 03/30/18 10:00 Zithromax PO 04/03/18 10:01 Q24 [facility] Bisacodyl 10 mg 03/25/18 23:55 Dulcolax PO DAILY PRN Constipation Calamine/Phenol 1 applic 03/27/18 06:00 03/29/18 06:30 Calmoseptine Ointment TOPICAL 1 applicatio 0600,2200 [facility] Administration Protocol Doxycycline Monohydrate 100 mg 03/25/18 23:15 03/29/18 06:28 Doxycycline PO 04/01/18 23:16 100 mg BID STACY Administration Enoxaparin Sodium 40 mg 03/26/18 10:00 03/29/18 06:28 Lovenox SC 40 mg DAILY@0600 [facility] Administration Ergocalciferol 50,000 unit 03/27/18 08:00 03/27/18 09:04 Vitamin D PO 50,000 unit SUWE@0800 [facility] Administration Hydrochlorothiazide 12.5 mg 03/26/18 06:00 03/29/18 06:28 Hydrochlorothiazide PO 12.5 mg DAILY [facility] Administration Insulin Human NPH 60 units 03/28/18 16:30 03/29/18 08:33 Humulin N (Bkc) SC 60 units BIDAC STACY Administration Loratadine 5 mg 03/25/18 22:30 03/28/18 21:28 Claritin PO 5 mg QHS STACY Administration Montelukast Sodium 10 mg 03/26/18 06:00 03/29/18 06:28 Singulair PO 10 mg DAILY STACY Administration Nadolol 40 mg 03/26/18 06:00 03/29/18 06:30 Corgard PO 40 mg DAILY STACY Administration Ondansetron HCl 4 mg 03/25/18 22:07 Zofran Odt PO Q8H PRN PRN NAUSEA Pantoprazole Sodium 40 mg 03/26/18 06:00 03/29/18 06:28 Protonix PO 40 mg DAILY STACY Administration Polyethylene Glycol 17 gm 03/28/18 17:21 Miralax PO DAILY PRN constipation Potassium Chloride 10 meq 03/27/18 08:00 03/29/18 08:33 K-Dur PO 10 meq DAILYCM STACY Administration Pramipexole Dihydrochloride 0.5 mg 03/25/18 22:30 03/28/18 21:28 Mirapex PO 0.5 mg QHS [facility] Administration Senna/Docusate Sodium 2 tablet 03/28/18 17:22 Senokot-S, Rianna-Colace PO BID PRN Constipation Tramadol HCl 50 mg 03/25/18 23:13 03/28/18 14:01 Ultram PO 50 mg Q6H PRN PRN Administration MODERATE PAIN (4-5/10) Tuberculin PPD 5 tu 04/02/18 10:00 Tubersol, Aplisol, Ppd ID 04/02/18 10:01 X1 ONE Problem List Breast cancer, right breast (Chronic) Cellulitis (Acute) Vitamin D deficiency (Acute) Hypertension (Chronic) Diabetes mellitus (Chronic) Allergic rhinitis (Chronic) GERD (gastroesophageal reflux disease) (Chronic) Restless leg syndrome (Chronic) Body mass index (BMI) 50-59.9, adult (Chronic) Migraine headache (Chronic) Obstructive sleep apnea (Chronic) Osteoarthritis (Chronic) Vital Signs Temp Pulse Resp BP Pulse Ox 97.8 F 66 18 139/68 H 95 03/28/18 15:34 03/28/18 15:34 03/28/18 15:34 03/28/18 15:34 03/29/18 08:00 Oxygen Flow Rate (L/min) 3 Oxygen Delivery Method Nasal Cannula Weight: 135.199 kg Body Mass Index (BMI) 53.4 Finger Stick Blood Glucose 154 Sodium 140 mmol/L (136-145) 03/27/18 07:06 Potassium 3.6 mmol/L (3.5-5.1) 03/27/18 07:06 Chloride 100 mmol/L (98-107) 03/27/18 07:06 Carbon Dioxide 36.0 mmol/L (21.0-32.0) H 03/27/18 07:06 Anion Gap 4 (5-15) L 03/27/18 07:06 BUN 13 mg/dL (7-18) 03/27/18 07:06 Creatinine 0.74 mg/dL (0.55-1.02) 03/27/18 07:06 Est GFR (MDRD) Af Amer 100 mL/min (>60) 03/27/18 07:06 Est GFR (MDRD) Non-Af 83 mL/min (>60) 03/27/18 07:06 BUN/Creatinine Ratio 17.6 RATIO (10-20) 03/27/18 07:06 Glucose 101 mg/dL (74-106) 03/27/18 07:06 Assessment/Plan: 1) Pain APAP for mild pain, tramadol for moderate pain. Continue to monitor prn medication use, daily pain scores. 2) ID Montelukast, loratadine, prn albuterol. Continue to monitor prn medication use, for shortness of breath. 3) ID Azithromycin, doxycycline. Continue to monitor s/s infection. 4) HTN HCTZ, nadolol. Continue to monitor BP/HR, renal function. 5) DVT PPx Enoxaparin daily. Continue to monitor s/s bleeding/clot. 6) GI Pantoprazole, ondansetron prn. Continue to monitor s/s GI distress, prn medication use. 7) Nutrition D, KCL. Continue to monitor electrolytes. 8) RLS Pramipexole at HS. Continue to monitor for restless legs. Psychotropic Medications: None Unnecessary Medications: None Bowel Regimen: 9) Prn senna/s, PEG, bisacodyl. Continue to monitor prn medication use, for constipation/diarrhea. Date of Note:: 03/29/18 - Provider Comments Provider responsibility: Provider responsible to enter orders to implement recommendations <Gigi Avila Chi - Last Filed: 03/29/18 18:03> Progress Note - Pharmacy Subjective: [] Objective: Allergies adhesive tape Allergy (Verified 11/24/17 13:31) Unknown listed on pcp allergy list cefadroxil [From Duricef] Allergy (Verified 11/24/17 13:31) Unknown mesalamine [From Asacol] Allergy (Verified 11/24/17 13:31) Unknown listed on pcp allergy list omalizumab [From Xolair] Allergy (Verified 11/24/17 13:31) Unknown listed on pcp allergy list Sulfa (Sulfonamide Antibiotics) Allergy (Verified 11/24/17 13:31) Unknown Current Medications Generic Name Dose Route Start Last Admin Trade Name Freq PRN Reason Stop Dose Admin Acetaminophen 1,000 mg 03/25/18 23:55 03/29/18 11:46 Tylenol PO 1,000 mg Q8H PRN PRN Administration MILD PAIN (1-3/10) Albuterol Sulfate 2.5 mg 03/25/18 22:07 03/28/18 06:17 Ventolin Aerosols INHALATION 2.5 mg Q2H PRN PRN Administration Dyspnea, wheezing Azithromycin 250 mg 03/30/18 10:00 Zithromax PO 04/03/18 10:01 Q24 [facility] Bisacodyl 10 mg 03/25/18 23:55 Dulcolax PO DAILY PRN Constipation Calamine/Phenol 1 applic 03/27/18 06:00 03/29/18 06:30 Calmoseptine Ointment TOPICAL 1 applicatio 0600,2200 [facility] Administration Protocol Doxycycline Monohydrate 100 mg 03/25/18 23:15 03/29/18 17:10 Doxycycline PO 04/01/18 23:16 100 mg BID [facility] Administration Enoxaparin Sodium 40 mg 03/26/18 10:00 03/29/18 06:28 Lovenox SC 40 mg DAILY@0600 [facility] Administration Ergocalciferol 50,000 unit 03/27/18 08:00 03/27/18 09:04 Vitamin D PO 50,000 unit SUWE@0800 [facility] Administration Hydrochlorothiazide 12.5 mg 03/26/18 06:00 03/29/18 06:28 Hydrochlorothiazide PO 12.5 mg DAILY [facility]ACY Administration Insulin Human NPH 60 units 03/28/18 16:30 03/29/18 17:10 Humulin N (Bkc) SC 60 units BIDAC STACY Administration Loratadine 5 mg 03/25/18 22:30 03/28/18 21:28 Claritin PO 5 mg QHS STACY Administration Montelukast Sodium 10 mg 03/26/18 06:00 03/29/18 06:28 Singulair PO 10 mg DAILY STACY Administration Nadolol 40 mg 03/26/18 06:00 03/29/18 06:30 Corgard PO 40 mg DAILY STACY Administration Ondansetron HCl 4 mg 03/25/18 22:07 Zofran Odt PO Q8H PRN PRN NAUSEA Pantoprazole Sodium 40 mg 03/26/18 06:00 03/29/18 06:28 Protonix PO 40 mg DAILY STACY Administration Polyethylene Glycol 17 gm 03/28/18 17:21 Miralax PO DAILY PRN constipation Potassium Chloride 10 meq 03/27/18 08:00 03/29/18 08:33 K-Dur PO 10 meq DAILYCM [facility] Administration Pramipexole Dihydrochloride 0.5 mg 03/25/18 22:30 03/28/18 21:28 Mirapex PO 0.5 mg QHS [facility] Administration Senna/Docusate Sodium 2 tablet 03/28/18 17:22 Senokot-S, Rianna-Colace PO BID PRN Constipation Tramadol HCl 50 mg 03/25/18 23:13 03/28/18 14:01 Ultram PO 50 mg Q6H PRN PRN Administration MODERATE PAIN (4-5/10) Tuberculin PPD 5 tu 04/02/18 10:00 Tubersol, Aplisol, Ppd ID 04/02/18 10:01 X1 ONE Problem List Breast cancer, right breast (Chronic) Cellulitis (Acute) Vitamin D deficiency (Acute) Hypertension (Chronic) Diabetes mellitus (Chronic) Allergic rhinitis (Chronic) GERD (gastroesophageal reflux disease) (Chronic) Restless leg syndrome (Chronic) Body mass index (BMI) 50-59.9, adult (Chronic) Migraine headache (Chronic) Obstructive sleep apnea (Chronic) Osteoarthritis (Chronic) Vital Signs Temp Pulse Resp BP Pulse Ox 97.2 F L 70 14 138/65 H 97 03/29/18 16:00 03/29/18 16:00 03/29/18 16:00 03/29/18 16:00 03/29/18 16:00 Oxygen Flow Rate (L/min) 2 Oxygen Delivery Method Nasal Cannula Weight: 135.199 kg Body Mass Index (BMI) 53.4 Finger Stick Blood Glucose 154 Sodium 140 mmol/L (136-145) 03/27/18 07:06 Potassium 3.6 mmol/L (3.5-5.1) 03/27/18 07:06 Chloride 100 mmol/L (98-107) 03/27/18 07:06 Carbon Dioxide 36.0 mmol/L (21.0-32.0) H 03/27/18 07:06 Anion Gap 4 (5-15) L 03/27/18 07:06 BUN 13 mg/dL (7-18) 03/27/18 07:06 Creatinine 0.74 mg/dL (0.55-1.02) 03/27/18 07:06 Est GFR (MDRD) Af Amer 100 mL/min (>60) 03/27/18 07:06 Est GFR (MDRD) Non-Af 83 mL/min (>60) 03/27/18 07:06 BUN/Creatinine Ratio 17.6 RATIO (10-20) 03/27/18 07:06 Glucose 101 mg/dL (74-106) 03/27/18 07:06 Assessment/Plan: Psychotropic Medications: Unnecessary Medications: Bowel Regimen: - Provider Comments Provider responsibility: Provider responsible to enter orders to implement recommendations Provider Comments to Recommendations by Pharmacy: Agree
[2018-03-29 16:00] VITALS: BP 138/65; PULSE 70; RESP 14; TEMP 36.2; O2SAT 97
[2018-03-29 17:00] LABS: Bedside Glucose 149 mg/dL (70-110)
[2018-03-29] MEDS: Pramipexole Di-HCl 0.5 MG Tablet PO (20:25)
[2018-03-29] MEDS: Loratadine 10 MG Tablet 5 MG PO (20:25)
[2018-03-29 21:01] LABS: Bedside Glucose 207 mg/dL (70-110)
[2018-03-29 22:26] VITALS: PULSE 84; RESP 18; O2SAT 96
[2018-03-29] MEDS: Albuterol 2.5 MG/3 ML VIAL.NEB. INHALATION (22:26)
[2018-03-30] MEDS: Menthol/Lanolin/Calamine/Znox 113 GM Tube 1 APPLIC TOPICAL ×2 (06:19→20:47)
[2018-03-30] MEDS: Nadolol 40 MG Tablet PO (06:23)
[2018-03-30] MEDS: Pantoprazole Sodium 40 MG Tablet PO (06:23)
[2018-03-30] MEDS: Montelukast 10 MG Tablet PO (06:23)
[2018-03-30] MEDS: Doxycycline 100 MG CAPSULE PO ×2 (06:23→17:05)
[2018-03-30] MEDS: hydroCHLOROthiazide 12.5mg 12.5 MG PO (06:23)
[2018-03-30] MEDS: Enoxaparin 40 MG/0.4 ML Syringe SC (06:24)
[2018-03-30 06:45] VITALS: PULSE 95; RESP 20; O2SAT 95
[2018-03-30] MEDS: Albuterol 2.5 MG/3 ML VIAL.NEB. INHALATION ×2 (06:45→13:38)
[2018-03-30 06:56] LABS: Bedside Glucose 100 mg/dL (70-110)
[2018-03-30] MEDS: Insulin NPH Human 100 UNITS/ML PEN 60 UNITS SC ×2 (08:47→17:43)
[2018-03-30] MEDS: Azithromycin 250 MG Tablet PO (08:47)
--- NOTE | 2018-03-30 11:04 | CASEMGMT ---
Plan of care meeting held. Resident present as well as resident daughter (resident daughter present via conference call). Resident plans to discharge to home with spouse at time of discharge. Resident requesting for discharge date to be set for 04/02/18. Resident continue with further care and treatment on the Transitional Care Unit at this time. Resident is reporting to want a portable oxygen tank on returning to home. This social group worker reporting that a request can be put in with the insurance but that no guaranteed of coverage. This social group worker to looking into the portable oxygen tank. Resident with insurance update due on 03/31/18, continued stay approval not guaranteed at this time. Support given. Proposed discharge date: 04/02/18 PLAN: Discharge to home with spouse. Will continue to follow. Lara RODRIGUEZ, FAMILY PRACTICE MD
[2018-03-30 11:46] LABS: Bedside Glucose 128 mg/dL (70-110)
[2018-03-30 13:38] VITALS: PULSE 90; RESP 18
[2018-03-30 15:44] VITALS: BP 133/65; PULSE 67; RESP 20; TEMP 35.8; O2SAT 96
[2018-03-30 16:55] LABS: Bedside Glucose 158 mg/dL (70-110)
[2018-03-30] MEDS: Pramipexole Di-HCl 0.5 MG Tablet PO (20:41)
[2018-03-30] MEDS: Loratadine 10 MG Tablet 5 MG PO (20:41)
[2018-03-30] MEDS: BENZOCAINE/MENTHOL 1 LOZENGE MUCOUS MEM (20:46)
[2018-03-30 20:51] LABS: Bedside Glucose 168 mg/dL (70-110)
[2018-03-30 21:20] VITALS: PULSE 62; RESP 16; O2SAT 97
--- NOTE | 2018-03-30 22:33 | DCINST_ITS ---
- Discharge Diagnoses Current Active Problems: Current Active and Chronic Problems Breast cancer, right breast (Chronic) Cellulitis (Acute) Vitamin D deficiency (Acute) Hypertension (Chronic) Diabetes mellitus (Chronic) Allergic rhinitis (Chronic) GERD (gastroesophageal reflux disease) (Chronic) Restless leg syndrome (Chronic) Body mass index (BMI) 50-59.9, adult (Chronic) Migraine headache (Chronic) Obstructive sleep apnea (Chronic) Osteoarthritis (Chronic) You will use the following diet at home:: No restrictions, Regular Your food should be the consistency of: Regular Your liquids should be the consistency of: Regular/Thin Discharge Activity: Return to Normal Activity, May Shower, Use Walker Weight Bearing Status: Weight bearing as tolerated Call your doctor if you observe: Fever of 101 or Higher, Inability to urinate, Inability to have a bowel movement, Shortness of breath, Chest pain, Uncontrolled pain Allergies/Adverse Reactions: Allergies adhesive tape Allergy (Verified 11/24/17 13:31) Unknown listed on pcp allergy list cefadroxil [From Duricef] Allergy (Verified 11/24/17 13:31) Unknown mesalamine [From Asacol] Allergy (Verified 11/24/17 13:31) Unknown listed on pcp allergy list omalizumab [From Xolair] Allergy (Verified 11/24/17 13:31) Unknown listed on pcp allergy list Sulfa (Sulfonamide Antibiotics) Allergy (Verified 11/24/17 13:31) Unknown Medications to take at Discharge Cholecalciferol (Vitamin D3) [Vitamin D3] 50,000 unit PO SUWE@0800 06/01/17 Lansoprazole [Prevacid] 30 mg PO DAILY 06/01/17 Levocetirizine Dihydrochloride [Xyzal] 5 mg PO QHS 06/01/17 Pramipexole Di-HCl [Mirapex] 0.5 mg PO QHS 06/01/17 Montelukast [Singulair] 10 mg PO DAILY 11/24/17 Nadolol 40 mg PO DAILY 11/24/17 Albuterol Aerosols [Ventolin Aerosols] 2.5 mg INHALATION Q2H PRN PRN #1 box 11/26/17 Albuterol IH (ProAir) [Proair Hfa] 2 puff INHALATION Q6H PRN PRN 03/25/18 Albuterol Inhaler [Ventolin Hfa] 2 puff INHALATION Q6H PRN PRN 03/25/18 Hydrochlorothiazide 12.5 mg PO DAILY 03/25/18 Insulin NPH Human Isophane [Humulin N Kwikpen] 82 unit SQ BID 03/25/18 Acetaminophen [Tylenol] 1,000 mg PO Q8H PRN PRN tablet 03/30/18 Azithromycin [Zithromax] 250 mg PO Q24 #1 tablet 03/30/18 Menthol/Lanolin/Calamine/Znox [Calmoseptine Ointment] 1 applic TOPICAL 0600,2200 tube 03/30/18 MethylPREDNISolone DosePak [Medrol DosePak] 24 mg PO 2200 #6 tablet 03/30/18 Ondansetron [Zofran Odt] 4 mg PO Q8H PRN PRN #21 tablet 03/30/18 Potassium Chloride [K-Dur] 10 meq PO DAILYCM #30 tablet 03/30/18 The following prescriptions were given: Ondansetron [Zofran Odt] 4 mg PO Q8H PRN PRN #21 tablet PRN Reason: Nausea Azithromycin [Zithromax] 250 mg PO Q24 #1 tablet MethylPREDNISolone DosePak [Medrol DosePak] 24 mg PO 2200 #6 tablet Potassium Chloride [K-Dur] 10 meq PO DAILYCM #30 tablet Primary Care Physician: Senait Jay MD [Primary Care Provider] - Please follow up with your Primary Care Physician in: 1 week. Test Results: Test results from this visit will be discussed in further detail at your follow- up appointment, if applicable. Please Follow Up With: Niru Ferrer Proposed Discharge Date: 04/02/18
--- NOTE | 2018-03-30 22:36 | DS.PCM_ITS ---
Discharge Date and Diagnosis - Problem List Patient Problems: Active and Suspected Problems Cellulitis (Acute) Vitamin D deficiency (Acute) Date of Admission: 03/25/18 Date of Discharge: 04/02/18 - Primary Discharge Diagnosis Active and Suspected Problems Cellulitis (Acute) Vitamin D deficiency (Acute) - Secondary Discharge Diagnosis Chronic Problems Breast cancer, right breast (Chronic) Hypertension (Chronic) Diabetes mellitus (Chronic) Allergic rhinitis (Chronic) GERD (gastroesophageal reflux disease) (Chronic) Restless leg syndrome (Chronic) Body mass index (BMI) 50-59.9, adult (Chronic) Migraine headache (Chronic) Obstructive sleep apnea (Chronic) Osteoarthritis (Chronic) Celiac disease (Chronic) Asthma (Chronic) BMI 50.0-59.9, adult (Chronic) History of right breast cancer (Chronic) Diabetes mellitus, type II (Chronic) Anxiety and depression (Chronic) Hospital Course and Treatment Imaging Results: 03/26/18 06:17 Diet: Carbohydrate Controlled Dietary Modifications:: Gluten Free Is pt able to select menu?: Yes Labs (Last 48 Hours) 03/29/18 03/29/18 03/29/18 06:40 10:57 16:53 POC Glucose 117 H 177 H 149 H 03/29/18 03/30/18 03/30/18 20:52 06:35 11:37 POC Glucose 207 H 100 128 H 03/30/18 03/30/18 16:47 20:45 POC Glucose 158 H 168 H Operations: None Procedures: None Summary of Care Provided: The patient is a 72 year old Female with below past medical history significant for right breast cancer, underwent right mastectomy with lymph node dissection, admitted to TCU with debility, here for rehabilitation, strengthening, prior to discharge home with significant other. Discharge home with spouse. Patient Problems: Active and Suspected Problems Cellulitis (Acute) Vitamin D deficiency (Acute) - Physical Exam Vital Signs Temp Pulse Resp BP Pulse Ox 96.5 F L 67 20 H 133/65 H 96 03/30/18 15:44 03/30/18 15:44 03/30/18 15:44 03/30/18 15:44 03/30/18 15:44 Oxygen Flow Rate (L/min) 2 Oxygen Delivery Method Room Air Weight: 135.199 kg Body Mass Index (BMI) 53.4 Finger Stick Blood Glucose 154 Intake and Output for Last 24 Hours 03/28/18 03/29/1818 23:59 23:59 23:59 Intake Total 420 / 420 1280 / 1280 1520 / 1520 Output Total 88 / 88 45 / 45 40 / 40 Balance 332 / 332 1235 / 1235 1480 / 1480 POC Glucose 03/30/18 03/30/18 03/30/18 20:45 16:47 11:37 POC Glucose 168 H 158 H 128 H 03/30/18 06:35 POC Glucose 100 Discharge Diet: No Restrictions Discharge Activity: Return to Normal Activity, May Shower, Use Walker Weight Bearing Status: Weight bearing as tolerated Call your doctor if you observe: Fever of 101 or Higher, Inability to urinate, Inability to have a bowel movement, Shortness of breath, Chest pain, Unc ontrolled pain Home Medications: Medications to take at Discharge Cholecalciferol (Vitamin D3) [Vitamin D3] 50,000 unit PO SUWE@0800 06/01/17 Lansoprazole [Prevacid] 30 mg PO DAILY 06/01/17 Levocetirizine Dihydrochloride [Xyzal] 5 mg PO QHS 06/01/17 Pramipexole Di-HCl [Mirapex] 0.5 mg PO QHS 06/01/17 Montelukast [Singulair] 10 mg PO DAILY 11/24/17 Nadolol 40 mg PO DAILY 11/24/17 Albuterol Aerosols [Ventolin Aerosols] 2.5 mg INHALATION Q2H PRN PRN #1 box 11/26/17 Albuterol IH (ProAir) [Proair Hfa] 2 puff INHALATION Q6H PRN PRN 03/25/18 Albuterol Inhaler [Ventolin Hfa] 2 puff INHALATION Q6H PRN PRN 03/25/18 Hydrochlorothiazide 12.5 mg PO DAILY 03/25/18 Insulin NPH Human Isophane [Humulin N Kwikpen] 82 unit SQ BID 03/25/18 Acetaminophen [Tylenol] 1,000 mg PO Q8H PRN PRN tablet 03/30/18 Azithromycin [Zithromax] 250 mg PO Q24 #1 tablet 03/30/18 Menthol/Lanolin/Calamine/Znox [Calmoseptine Ointment] 1 applic TOPICAL 0600,2200 tube 03/30/18 MethylPREDNISolone DosePak [Medrol DosePak] 24 mg PO 0 #6 tablet 03/30/18 Ondansetron [Zofran Odt] 4 mg PO Q8H PRN PRN #21 tablet 03/30/18 Potassium Chloride [K-Dur] 10 meq PO DAILYCM #30 tablet 03/30/18 Following Prescrptions Were Given to Patient: Ondansetron [Zofran Odt] 4 mg PO Q8H PRN PRN #21 tablet PRN Reason: Nausea Azithromycin [Zithromax] 250 mg PO Q24 #1 tablet MethylPREDNISolone DosePak [Medrol DosePak] 24 mg PO 0 #6 tablet Potassium Chloride [K-Dur] 10 meq PO DAILYCM #30 tablet Primary Care Physician: Senait Jay MD [Primary Care Provider] - Please follow up with your Primary Care Physician in: 1 week. Please Follow Up With: Niru Ferrer Disposition: Home Minutes spent on discharge:: 30 Patient Condition:: Stable Medical Necessity - Tobacco Use Smoking Status: Former smoker Tobacco Use: Cigarettes Meaningful Use Info Meaningful Use Diagnoses (Choose all that apply): None applicable
[2018-03-30] MEDS: MethylPREDNISolone DosePak 4 MG BOX PO (22:51)
[2018-03-31] MEDS: traMADol 50 MG Tablet PO ×2 (01:36→21:07)
[2018-03-31] MEDS: Enoxaparin 40 MG/0.4 ML Syringe SC (05:15)
[2018-03-31] MEDS: Montelukast 10 MG Tablet PO (05:17)
[2018-03-31] MEDS: hydroCHLOROthiazide 12.5mg 12.5 MG PO (05:17)
[2018-03-31] MEDS: Pantoprazole Sodium 40 MG Tablet PO (05:17)
[2018-03-31] MEDS: Nadolol 40 MG Tablet PO (05:17)
[2018-03-31] MEDS: Doxycycline 100 MG CAPSULE PO ×2 (05:17→18:07)
[2018-03-31] MEDS: Menthol/Lanolin/Calamine/Znox 113 GM Tube 1 APPLIC TOPICAL ×2 (05:21→20:56)
[2018-03-31 07:01] LABS: Bedside Glucose 171 mg/dL (70-110)
[2018-03-31 07:45] VITALS: O2SAT 96
[2018-03-31] MEDS: MethylPREDNISolone DosePak 4 MG BOX PO ×4 (10:18→20:56)
--- NOTE | 2018-03-31 10:18 | CASEMGMT ---
Insurance Clinical information faxed. Pending continued stay approval at this time. Auth#[id number] Lara RODRIGUEZ, MINIATURE SET CONSTRUCTOR
[2018-03-31] MEDS: Insulin NPH Human 100 UNITS/ML PEN 60 UNITS SC ×2 (10:19→18:07)
[2018-03-31] MEDS: Azithromycin 250 MG Tablet PO (10:19)
--- NOTE | 2018-03-31 10:19 | CASEMGMT ---
Social Work Order for portable oxygen tank faxed to [employer] alone with clinical information. [employer] to be in contact with this social service director or resident/resident family in regards to coverage. Resident reporting to already have home oxygen set up within the home alone with portable tanks through [employer]. Proposed discharge date: 04/02/18 PLAN: Discharge to home with spouse. Lara RODRIGUEZ, GEOTECHNICAL DEPARTMENT MANAGER
[2018-03-31 11:16] LABS: Bedside Glucose 180 mg/dL (70-110)
--- NOTE | 2018-03-31 13:58 | MDS.RN ---
Pain interview for CHRISTINE 04/01/18 completed.
--- NOTE | 2018-03-31 14:45 | CASEMGMT ---
Brief interview for mental status (BIMS) and resident mood interview (PHQ-9) completed on this day. BIMS score 15/15. PHQ-9 score
--- NOTE | 2018-03-31 14:47 | CASEMGMT ---
Social Work Telephone call from resident Guzman was approved the portable oxygen concentrator. Resident reporting to have all other durable medical equipment already set up within the home. Proposed discharge date: 04/02/18 PLAN: Discharge to home with spouse. Lara RODRIGUEZ, BRICKLAYER'S ASSISTANT
[2018-03-31 16:00] VITALS: BP 147/74; PULSE 75; RESP 20; TEMP 36.4; O2SAT 98
[2018-03-31 16:03] VITALS: PULSE 83; RESP 20
[2018-03-31] MEDS: Albuterol 2.5 MG/3 ML VIAL.NEB. INHALATION (16:03)
[2018-03-31 17:16] LABS: Bedside Glucose 175 mg/dL (70-110)
[2018-03-31] MEDS: Loratadine 10 MG Tablet 5 MG PO (20:56)
[2018-03-31] MEDS: Pramipexole Di-HCl 0.5 MG Tablet PO (20:57)
[2018-03-31 21:00] VITALS: PULSE 70; O2SAT 96
[2018-03-31 21:16] LABS: Bedside Glucose 234 mg/dL (70-110)
[2018-04-01] MEDS: Menthol/Lanolin/Calamine/Znox 113 GM Tube 1 APPLIC TOPICAL ×2 (06:14→20:15)
[2018-04-01] MEDS: Montelukast 10 MG Tablet PO (06:18)
[2018-04-01] MEDS: Doxycycline 100 MG CAPSULE PO ×2 (06:18→17:33)
[2018-04-01] MEDS: hydroCHLOROthiazide 12.5mg 12.5 MG PO (06:18)
[2018-04-01] MEDS: Pantoprazole Sodium 40 MG Tablet PO (06:18)
[2018-04-01] MEDS: Enoxaparin 40 MG/0.4 ML Syringe SC (06:18)
[2018-04-01] MEDS: Nadolol 40 MG Tablet PO (06:18)
[2018-04-01 06:35] LABS: Bedside Glucose 122 mg/dL (70-110)
[2018-04-01 07:21] VITALS: O2SAT 95
[2018-04-01] MEDS: MethylPREDNISolone DosePak 4 MG BOX PO ×4 (08:28→20:12)
[2018-04-01] MEDS: Insulin NPH Human 100 UNITS/ML PEN 60 UNITS SC ×2 (08:29→18:00)
[2018-04-01] MEDS: Azithromycin 250 MG Tablet PO (10:04)
[2018-04-01 11:26] LABS: Bedside Glucose 174 mg/dL (70-110)
--- NOTE | 2018-04-01 14:41 | CASEMGMT ---
Social Work Resident requesting information about home delivered meals. Resident voicing to have tried Me[employer] Whe[employer] in the past and to be interested in information about [employer]. This psychosocial rehabilitation counselor providing resident with brochure for [employer]. Resident voicing no further needs at this time. Support given.
[2018-04-01 16:00] VITALS: BP 113/54; PULSE 72; RESP 20; TEMP 36.6; O2SAT 98
[2018-04-01] MEDS: BENZOCAINE/MENTHOL 1 LOZENGE MUCOUS MEM (16:07)
[2018-04-01 16:45] VITALS: PULSE 67; RESP 16
[2018-04-01] MEDS: Albuterol 2.5 MG/3 ML VIAL.NEB. INHALATION (16:45)
[2018-04-01 17:11] LABS: Bedside Glucose 125 mg/dL (70-110)
[2018-04-01] MEDS: MELATONIN 10 MG TABLET PO (20:12)
[2018-04-01] MEDS: Loratadine 10 MG Tablet 5 MG PO (20:12)
[2018-04-01] MEDS: traMADol 50 MG Tablet PO (20:12)
[2018-04-01] MEDS: Pramipexole Di-HCl 0.5 MG Tablet PO (20:13)
[2018-04-01 21:56] LABS: Bedside Glucose 254 mg/dL (70-110)
[2018-04-02] MEDS: Enoxaparin 40 MG/0.4 ML Syringe SC (06:44)
[2018-04-02] MEDS: Nadolol 40 MG Tablet PO (06:45)
[2018-04-02] MEDS: Montelukast 10 MG Tablet PO (06:45)
[2018-04-02] MEDS: hydroCHLOROthiazide 12.5mg 12.5 MG PO (06:45)
[2018-04-02] MEDS: Pantoprazole Sodium 40 MG Tablet PO (06:45)
[2018-04-02] MEDS: Menthol/Lanolin/Calamine/Znox 113 GM Tube 1 APPLIC TOPICAL (06:49)
[2018-04-02 07:03] LABS: Absolute Lymphocyte Count 2.97 X10^3/ul (0.83-4.51); Absolute Neutrophil Count 5.8 X10^3/uL (2.0-7.7); Basophil# 0.04 X10^3/uL; Basophil% 0.4 % (0-1); Eosinophil# 0.42 X10^3/uL; Eosinophils% 4.3 % (0-5); Hematocrit 38.4 % (37-47); Hemoglobin 12.3 g/dl (12.0-15.0); Lymphocyte # 2.97 X10^3/ul (4.0); Lymphocyte % 30.1 % (19-41); Mean Corpuscular Hgb 28.7 pg (27.0-32.0); Mean Corpuscular Volume 89.7 fL (81-99); Monocyte# 0.58 X10^3/uL; Monocyte% 5.9 % (0-10); Neutrophil # 5.81 X10^3/uL (2.7-7.7); Neutrophil % 58.7 % (47-70); Platelet Count 173 K/mm3 (150-450); RBC Distribution Width CV 13.4 % (11.6-14.6); RBC Distribution Width SD 43.3 fl (35.1-43.9); Red Blood Count 4.28 M/mm3 (4.2-5.4); White Blood Count 9.9 K/mm3 (4.4-11.0)
[2018-04-02 07:06] LABS: Bedside Glucose 81 mg/dL (70-110)
[2018-04-02 07:17] LABS: POSITIVE COUNT NO; POSITIVE DIFFERENTIAL NO; POSITIVE MORPHOLOGY NO
[2018-04-02 07:27] LABS: Anion Gap 6 (5-15); BUN 22 mg/dL (7-18); BUN/Creat Ratio 31.8 RATIO (10-20); Calcium,Total 8.8 mg/dL (8.5-10.1); Chloride 105 mmol/L (98-107); Creatinine, Serum 0.69 mg/dL (0.55-1.02); EST Glomerular Filtration Rate 89 mL/min (>60); Est Glom Filt Rate - Afr Amer 107 mL/min (>60); Estimated Creatinine Clearance 42.68 ml/min; Glucose 82 mg/dL (74-106); Potassium 3.8 mmol/L (3.5-5.1); Sodium Level 141 mmol/L (136-145)
[2018-04-02] MEDS: MethylPREDNISolone DosePak 4 MG BOX PO (08:38)
[2018-04-02] MEDS: Insulin NPH Human 100 UNITS/ML PEN 60 UNITS SC (08:39)
[2018-04-02] MEDS: Azithromycin 250 MG Tablet PO (08:42)
[2018-04-02 08:44] VITALS: BP 152/72; PULSE 75; RESP 18; TEMP 36.4; O2SAT 98
[2018-04-02 09:57] VITALS: O2SAT 96
--- NOTE | 2018-04-05 13:20 | CASEMGMT ---
Insurance Notified insurance of resident discharge on 04/02/18 to home with spouse. Auth#[id number] Lara RODRIGUEZ, SENIOR RESEARCH FELLOW
--- NOTE | 2018-04-06 15:37 | MDS.RN ---
Information for the mds was obtained from review of the clinical record, interview of resident, staff, and direct observation of resident's care.
== END 2018-04-02 11:45 | disposition home or self-care (01) | DRG 948 ==
PROVIDERS: Admitting Provider Family Medicine Geriatric Medicine; Family Provider Internal Medicine; PCP Internal Medicine; Visit Provider Family Medicine Geriatric Medicine
DX: R53.81 Other malaise (principal); C50.911 Malignant neoplasm of unspecified site of right female breast; T81.49XD Infection following a procedure, other surgical site, subsequent encounter; I10 Essential (primary) hypertension; G47.33 Obstructive sleep apnea (adult) (pediatric); K21.9 Gastro-esophageal reflux disease without esophagitis; E11.9 Type 2 diabetes mellitus without complications; G25.81 Restless legs syndrome; K90.0 Celiac disease; M19.90 Unspecified osteoarthritis, unspecified site; J45.909 Unspecified asthma, uncomplicated; Z87.891 Personal history of nicotine dependence
CPT/HCPCS: 36415; 80048; 82962; 85025; 94640; 97110; 97116; 97162; 97166; 97530; 97535; 97802

== ENCOUNTER 2018-04-09 00:17 | Inpatient (IN) | payer MEDICARE, SELFPAY ==
[2018-04-09] VITALS (27 sets, daily range): BP systolic 140–150; BP diastolic 62–75; PULSE 70–90; RESP 14–25; TEMP 36.4–37.2; O2SAT 91–99; BMI 56.0; BMI 55.1
--- NOTE | 2018-04-09 00:37 | EKG12_ITS ---
Test Reason : SOB Blood Pressure : / mmHG Vent. Rate : 079 BPM Atrial Rate : 090 BPM P-R Int : 000 ms QRS Dur : 074 ms QT Int : 380 ms P-R-T Axes : 000 -02 098 degrees QTc Int : 435 ms Sinus rhythm Nonspecific T wave abnormality Abnormal ECG Confirmed by JACLYN RIVERA, KATIE ([id number]), design editor SAIRA WHITMORE ([id number]) on 04/11/2018 3:23:12 PM Referred By: JOVANNA Confirmed By:KATIE ANAYA MD
[2018-04-09] MEDS: Albuterol 2.5 MG/3 ML VIAL.NEB. INHALATION ×2 (00:51)
[2018-04-09] MEDS: Ipratropium/Albuterol Sulfate 3 ML AMPUL.NEB INHALATION ×6 (00:51→22:57)
--- NOTE | 2018-04-09 00:55 | RAD_ITS ---
HISTORY: Shortness of breath Comparison: 11/24/2017 Findings: Portable technique which limits evaluation. EKG leads and facemask with tubing in place. Normal heart size. No vascular congestion, pleural effusion, or acute pulmonary infiltration. No pneumothorax. Atherosclerotic thoracic aorta. Mild thoracic dextroscoliosis. Right axillary surgical clips. IMPRESSION: No acute disease or significant change. at 0113 Reported and signed by: Kalin Lugo MD Electronically Signed: Kalin Lugo, at 1:11 EDT Tel , Service support , RAD/Chest 1 View (Portable)
[2018-04-09 01:48] LABS: Absolute Lymphocyte Count 2.15 X10^3/ul (0.83-4.51); Absolute Neutrophil Count 6.8 X10^3/uL (2.0-7.7); Basophil# 0.12 X10^3/uL; Basophil% 1.1 % (0-1); Eosinophil# 1.32 X10^3/uL; Eosinophils% 11.7 % (0-5); Hematocrit 41.9 % (37-47); Hemoglobin 13.5 g/dl (12.0-15.0); Lymphocyte # 2.15 X10^3/ul (4.0); Mean Corp Hgb Conc 32.2 g/gl (32-36); Mean Corpuscular Hgb 29.3 pg (27.0-32.0); Mean Corpuscular Volume 91.1 fL (81-99); Mean Platelet Vol. 10.7 fl (6.2-12.0); Monocyte# 0.87 X10^3/uL; Monocyte% 7.7 % (0-10); Neutrophil # 6.78 X10^3/uL (2.7-7.7); Neutrophil % 59.8 % (47-70); POSITIVE COUNT NO; POSITIVE DIFFERENTIAL NO; POSITIVE MORPHOLOGY NO; Platelet Count 118 K/mm3 (150-450); RBC Distribution Width CV 13.5 % (11.6-14.6); RBC Distribution Width SD 44.7 fl (35.1-43.9); White Blood Count 11.3 K/mm3 (4.4-11.0)
[2018-04-09] MEDS: 0.9% Normal Saline 1,000 ML 150 ML IV (02:21)
[2018-04-09] MEDS: predniSONE 20 MG Tablet 60 MG PO (02:22)
[2018-04-09 02:26] LABS: Anion Gap 5 (5-15); BUN 20 mg/dL (7-18); BUN/Creat Ratio 21.9 RATIO (10-20); Calcium,Total 8.7 mg/dL (8.5-10.1); Chloride 108 mmol/L (98-107); Creatinine, Serum 0.92 mg/dL (0.55-1.02); EST Glomerular Filtration Rate 64 mL/min (>60); Est Glom Filt Rate - Afr Amer 78 mL/min (>60); Estimated Creatinine Clearance 44.36 ml/min; Glucose 167 mg/dL (74-106); Potassium 4.6 mmol/L (3.5-5.1); Sodium Level 140 mmol/L (136-145)
--- NOTE | 2018-04-09 02:34 | ED.VISSUMM ---
- ER Visit Summary Date of Service: 04/09/18 Chief Complaint: Shortness of breath History of Present Illness: The patient is a 72 F with shortness of breath since being discharged from TCU on April 02. She was there for rehab after mastectomy at [facility]. She is on 2 L of home oxygen after her surgery uses CPAP at night. She reports increased shortness of breath yesterday. She had difficulty laying down to sleep tonight due to shortness of breath. She told the respiratory therapist that she lost her inhaler. She denies chest pain or fever. She has had mild cough. Past history significant for asthma, diabetes, hypertension, breast cancer, reflux disease. Physical Examination: Blood pressure is 147/75, temperature 99, heart rate 82, respiratory rate 25, pulse ox 95% on 3 L. Patient sitting upright in bed. She is able to speak full sentences. Head neck examination unremarkable. Heart is regular rate and rhythm. Lung sounds with expiratory wheezes throughout with rhonchi at the bases. Abdomen is soft and nontender. Test Results: EKG is sinus at 79 with no sign of acute ischemia. Portable chest x-ray shows no acute disease. CBC was a white count 11.3 with normal differential. Platelet count is 118,000. Chemistry studies significant only for glucose of 167. Troponin is mildly elevated at 0.051. Emergency Department Course and Treatment: Patient was given aerosols along with prednisone. On repeat evaluation wheezing is significantly improved with only rare scattered wheezing noted. She has better air movement throughout. She is able to lie back with her head elevated only 30 degrees. At this time patient will be admitted for further breathing treatments and cycling of cardiac enzymes. Patient denies chest pain. Treatment Plan: [] Disposition: Admit Impression: 1. Asthma exacerbation 2. Mildly elevated troponin This note was generated with JRapid dictation software. It may contain incorrect words, spelling, and punctuation that were not noted in review of the chart prior to signing ED Disposition - Plan for ED Patient: Chief Complaint: Shortness of Breath Referrals: Senait Jay MD [Primary Care Provider] -
--- NOTE | 2018-04-09 02:37 | ED.RN ---
HOSPITALIST PAGED FOR ADMISSION
--- NOTE | 2018-04-09 03:31 | HP.PCM_ITS ---
Problem List (1) Acute severe exacerbation of asthma Status: Acute History of Present Illness Date of Admission: 04/09/18 Chief Complaint: shortness of breath The patient is a 72 year old F with a significant history of asthma; GERD; diabetes; hypertension; right breast cancer with previous radiation and recent mastectomy at [facility] in March 2018 with subsequent admission at our transitional care unit and discharged on April 02, 2018 presenting with progressively worsening shortness of breath at rest. Her shortness of breath began less than a week ago. Her shortness of breath is at rest; and it is worsened with exertion. Associated with symptoms is audible wheezes and nonproductive cough. Patient reported that because she has been at multiple health care facilities within the last month she ended up not finding her inhalers due to the location changes.. At the emergency department she was noted to be wheezing and her lung sounds sounded tight. Because of initial difficulty in getting an IV line she was given p.o. prednisone. She also received breathing treatments at the emergency department. Past Medical History Past Medical History (Chronic Problems): Chronic Problems Breast cancer, right breast (Chronic) Hypertension (Chronic) Diabetes mellitus (Chronic) Allergic rhinitis (Chronic) GERD (gastroesophageal reflux disease) (Chronic) Restless leg syndrome (Chronic) Body mass index (BMI) 50-59.9, adult (Chronic) Migraine headache (Chronic) Obstructive sleep apnea (Chronic) Osteoarthritis (Chronic) Celiac disease (Chronic) Asthma (Chronic) BMI 50.0-59.9, adult (Chronic) History of right breast cancer (Chronic) Diabetes mellitus, type II (Chronic) Anxiety and depression (Chronic) Allergies adhesive tape Allergy (Verified 04/09/18 00:24) Unknown listed on pcp allergy list cefadroxil [From Duricef] Allergy (Verified 04/09/18 00:24) Unknown mesalamine [From Asacol] Allergy (Verified 04/09/18 00:24) Unknown listed on pcp allergy list omalizumab [From Xolair] Allergy (Verified 04/09/18 00:24) Unknown listed on pcp allergy list Sulfa (Sulfonamide Antibiotics) Allergy (Verified 04/09/18 00:24) Unknown Home Medications: Ambulatory Orders Medication Instructions Recorded Cholecalciferol (Vitamin D3) 50,000 unit PO SUWE@0800 06/01/17 [Vitamin D3] Lansoprazole [Prevacid] 30 mg PO DAILY 06/01/17 Levocetirizine Dihydrochloride 5 mg PO QHS 06/01/17 [Xyzal] Pramipexole Di-HCl [Mirapex] 0.5 mg PO QHS 06/01/17 Montelukast [Singulair] 10 mg PO DAILY 11/24/17 Nadolol 40 mg PO DAILY 11/24/17 Albuterol Aerosols [Ventolin 2.5 mg INHALATION Q2H PRN PRN #1 11/26/17 Aerosols] box Albuterol IH (ProAir) [Proair Hfa] 2 puff INHALATION Q6H PRN PRN 03/25/18 Albuterol Inhaler [Ventolin Hfa] 2 puff INHALATION Q6H PRN PRN 03/25/18 Hydrochlorothiazide 12.5 mg PO DAILY 03/25/18 Insulin NPH Human Isophane 82 unit SQ BID 03/25/18 [Humulin N Kwikpen] Acetaminophen [Tylenol] 1,000 mg PO Q8H PRN PRN tablet 03/30/18 Azithromycin [Zithromax] 250 mg PO Q24 #1 tablet 03/30/18 Menthol/Lanolin/Calamine/Znox 1 applic TOPICAL 0600,2200 tube 03/30/18 [Calmoseptine Ointment] MethylPREDNISolone DosePak [Medrol 24 mg PO 2200 #6 tablet 03/30/18 DosePak] Ondansetron [Zofran Odt] 4 mg PO Q8H PRN PRN #21 tablet 03/30/18 Potassium Chloride [K-Dur] 10 meq PO DAILYCM #30 tablet 03/30/18 Surgical History: mastectomy - Right, lymph node dissection., - - Rectocele repair. Psychiatric History: Anxiety, Depression LICENSING ANALYST History: No pertinent LICENSING ANALYST history Lives: Spouse/ Significant Other Smoking Status: Never smoker - *Family History Paternal History Items: Heart Disease - Father with history of fatal IA. Maternal History Items: Cancer Review of Systems Constitutional: Denies: Chills, Fever, Weight Change HEENT: Denies: Head Aches, Sinus Congestion, Sinus Drainage Cardiovascular: Denies: Chest Pain, Palpitations Respiratory: Denies: Cough, Shortness of breath at rest, Sputum production Gastrointestinal: Denies: Abdominal Pain, Nausea, Vomiting Genitourinary: Denies: Dysuria Musculoskeletal: Denies: Joint Pain, Joint Tenderness Skin: Denies: Rash, Wounds Neurological: Denies: Numbness, Tingling, Focal weakness Psychiatric: Denies: Anxiety, Depression, Homicidal Ideations, Suicidal Ideations Hematologic/ Lymphatic: Denies: Easy Bruising, Easy Bleeding VTE Information - Inpt Only VTE Present on Admission: No VTE Mechan Device Prophylaxis: None VTE Pharm Prophylaxis ordered?: Yes Patient Problems: Active and Suspected Problems Acute severe exacerbation of asthma (Acute) - Physical Exam General: Alert, Oriented x3, Cooperative HEENT: Atraumatic, PERRLA, EOMI, Normocephalic Neck: Supple, No JVD, Negative Carotid Bruits Lungs: Rhonchi, Tachypneic, Wheezes, - - masectomy of right breast Cardiovascular: Regular rate, No murmurs Abdomen: Bowel Sounds Present, Soft, Non Tender Extremities: No edema, Capillary Refill Less than 3 Seconds Skin: No rashes, No breakdown Musculoskeletal: No Tenderness to Palpation of Joints or Extremities Neurological: Cranial nerves II-XII grossly intact Psych/Mental Status: Normal Affect, Appropriate Vital Signs Temp Pulse Resp BP Pulse Ox 98.0 F 75 15 142/65 H 95 04/09/18 03:18 04/09/18 03:18 04/09/18 03:18 04/09/18 03:18 04/09/18 03:18 Oxygen Flow Rate (L/min) 3 Oxygen Delivery Method Nasal Cannula Weight: 139 kg Body Mass Index (BMI) 56.0 Finger Stick Blood Glucose 154 Laboratory Tests Past 24 Hrs 04/09/18 04/09/18 01:38 01:38 WBC 11.3 H RBC 4.60 Hgb 13.5 Hct 41.9 MCV 91.1 MCH 29.3 MCHC 32.2 RDW 13.5 RDW Differential 44.7 H Plt Count 118 L MPV 10.7 Immature Gran % (Auto) 0.700 Neut % (Auto) 59.8 Lymph % (Auto) 19.0 [place] % (Auto) 7.7 Eos % (Auto) 11.7 H Baso % (Auto) 1.1 H Absolute Neuts (auto) 6.8 Absolute Lymphs (auto) 2.15 Total Counted Not Reportable Sodium 140 Potassium 4.6 Chloride 108 H Carbon Dioxide 27.0 Anion Gap 5 BUN 20 H Creatinine 0.92 Estim Creat Clear Calc 44.36 Est GFR (MDRD) Af Amer 78 Est GFR (MDRD) Non-Af 64 BUN/Creatinine Ratio 21.9 H Glucose 167 H Calcium 8.7 Troponin I 0.051 H Assessment/Plan All Active Problems Acute respiratory failure with hypoxia (Acute) Cellulitis (Acute) Vitamin D deficiency (Acute) Acute severe exacerbation of asthma (Acute) Acute bronchitis due to Rhinovirus (Acute) Fever (Acute) Encephalopathy (Acute) Staphylococcal pneumonia (Ruled-out) Streptococcal pneumonia (Ruled-out) Acute and chronic respiratory failure with hypoxia (Ruled-out) Cellulitis of right breast (Ruled-out) Sleep apnea (Acute) Influenza (Acute) Acute asthma exacerbation (Acute) The patient is a 72 year old F with a significant history of asthma on chronic home oxygen of 2 L; GERD; diabetes; hypertension; right breast cancer with previous radiation and recent mastectomy at [facility] in March 2018 after which she was at our transitional care unit and discharged on around April 02; presenting with progressively worsening shortness of breath; wheezing and orthopnea consistent with acute exacerbation of asthma. Asthma exacerbation. History of asthma with home oxygen use. Noted to have wheezing, shortness of breath and unproductive cough. These symptoms are above her baseline. Rapid influenza screen. Received prednisone in the emergency department and breathing treatments at emergency department. Solu-Medrol IV ordered for now. Scheduled DuoNeb; and as needed albuterol. Singular continued Levocetirizine continued No LABA?ICS on file on her home list. Upon discharge please consider LABA-ICS Elevated troponin Likely type II myocardial infarction from demand ischemia. Patient denies chest pain Trend troponin. Diabetes mellitus On admission blood glucose was 167 which is within goal. Patient reported at home she takes Humulin 60 units twice daily. We will start patient on Lantus 20 units every night beginning now; Humalog 4 units 3 times daily with meals and a correction scale insulin. Blood glucose q. before meals and at bedtime; titrate blood glucose as necessary. Hypertension Blood pressure on admission was not within goal Hydrochlorothiazide and nadolol continued Trend blood pressures and titrate blood pressure meds as necessary Obstructive sleep apnea BiPAP with oxygen bled in. Restless leg syndrome Mirapex continued DVT prophylaxis subcutaneous Lovenox.
[2018-04-09 05:36] LABS: Bedside Glucose 185 mg/dL (70-110)
[2018-04-09] MEDS: 0.9% NaCl Peripheral Flush Adult/Peds IV ×2 (05:40→22:28)
[2018-04-09] MEDS: Ondansetron 4 MG/2 ML Vial IV (05:40)
[2018-04-09 06:55] LABS: Bedside Glucose 189 mg/dL (70-110)
[2018-04-09] MEDS: Enoxaparin 40 MG/0.4 ML Syringe SC (08:58)
[2018-04-09] MEDS: Insulin Lispro 100 UNIT/ML INSULN.PEN SQ ×7 (08:58→22:29)
[2018-04-09] MEDS: hydroCHLOROthiazide 12.5mg 12.5 MG PO (08:59)
[2018-04-09] MEDS: Pantoprazole Sodium 40 MG Tablet PO (08:59)
[2018-04-09] MEDS: Nadolol 40 MG Tablet PO (08:59)
[2018-04-09] MEDS: Montelukast 10 MG Tablet PO (08:59)
--- NOTE | 2018-04-09 10:43 | PCM.PN.HOSP ---
Patient Problems: Active and Suspected Problems Acute severe exacerbation of asthma (Acute) Subjective: feeling slightly better. still short of breath. coughing, but non-productive. Vitals/I&O's: Vital Signs Temp Pulse Resp BP Pulse Ox 36.4 C L 77 16 140/68 H 98 04/09/18 08:45 04/09/18 08:45 04/09/18 08:45 04/09/18 08:45 04/09/18 08:45 Oxygen Flow Rate (L/min) 3 Oxygen Delivery Method Nasal Cannula Weight: 136.7 kg Body Mass Index (BMI) 55.1 Finger Stick Blood Glucose 154 General: Alert, No apparent distress HEENT: Atraumatic, Normocephalic Oral: Moist Mucosa, No Gingival or Mucosal Lesions/ Ulcerations Neck: No Nodes, Thyroid Normal Size and Texture Lungs: No rhonchi, Diminished, Wheezes Cardiovascular: Regular rate, Regular Rhythm, Normal S1, Normal S2, No murmurs Abdomen: Bowel Sounds Present, Soft, Non Tender, Non-Distended, No Hepato-splenomegaly Extremities: No Calf Tenderness, Edema Skin: No rashes, No breakdown Musculoskeletal: No Tenderness to Palpation of Joints or Extremities, No Muscle Wasting Psych/Mental Status: Normal Affect, Appropriate Microbiology Past 72 Hours 04/09/18 05:00 Mucosa - Nasopharyngeal Influenza Types A,B Direct FA (RODRIGO) - Final Laboratory Results 04/09/18 01:38: WBC 11.3 H, RBC 4.60, Hgb 13.5, Hct 41.9, MCV 91.1, MCH 29.3, MCHC 32.2, RDW 13.5, RDW Differential 44.7 H, Plt Count 118 L, MPV 10.7, Immature Gran % (Auto) 0.700, Neut % (Auto) 59.8, Lymph % (Auto) 19.0, [place] % (Auto) 7.7, Eos % (Auto) 11.7 H, Baso % (Auto) 1.1 H, Absolute Neuts (auto) 6.8, Absolute Lymphs (auto) 2.15, Total Counted Not Reportable 04/09/18 01:38: Sodium 140, Potassium 4.6, Chloride 108 H, Carbon Dioxide 27.0, Anion Gap 5, BUN 20 H, Creatinine 0.92, Estim Creat Clear Calc 44.36, Est GFR (MDRD) Af Amer 78, Est GFR (MDRD) Non-Af 64, BUN/Creatinine Ratio 21.9 H, Glucose 167 H, Calcium 8.7, Troponin I 0.051 H 04/09/18 04:50: Troponin I 0.130 H 04/09/18 05:01: POC Glucose 185 H 04/09/18 06:49: POC Glucose 189 H 04/09/18 07:30: Troponin I 0.083 H Current Medications Acetaminophen (Tylenol) 650 mg PO Q6H PRN PRN PRN Reason: Mild Pain (scale 0-3)/T>100.7 Albuterol Sulfate (Ventolin Aerosols) 2.5 mg INHALATION Q2H PRN PRN PRN Reason: SHORTNESS OF BREATH Albuterol/Ipratropium (Duoneb) 3 ml INHALATION Q4H.RT [facility] Last Admin: 04/09/18 07:11 Dose: 3 ml Aspirin (Aspirin, Baby) 81 mg PO DAILY@0800 [facility] Dextrose (D50w Syringe) 0 gm IV X1 PRN; Protocol PRN Reason: Hypoglycemia Enoxaparin Sodium (Lovenox) 40 mg SC DAILY@1000 [facility] Last Admin: 04/09/18 08:58 Dose: 40 mg Ergocalciferol (Vitamin D) 50,000 unit PO SUWE@0800 [facility] Glucagon () 1 mg IM .X1 PRN PRN Reason: Hypoglycemia Hydrochlorothiazide (Hydrochlorothiazide) 12.5 mg PO DAILY [facility] Last Admin: 04/09/18 08:59 Dose: 12.5 mg Insulin Glargine (Lantus (Bkc)) 15 units SC QHS [facility] Last Admin: 04/09/18 05:39 Dose: 15 units Insulin Human Lispro (Humalog Kwikpen (Bkc)) 4 unit SQ BREAKFAST [facility] Last Admin: 04/09/18 08:58 Dose: 4 u Insulin Human Lispro (Humalog Kwikpen (Bkc)) 4 unit SQ [facility] Insulin Human Lispro (Humalog Kwikpen (Bkc)) 4 unit SQ LUNCH [facility] Insulin Human Lispro (Humalog Kwikpen (Bkc)) 0 unit SQ 4X/DAYCM [facility]; Protocol Last Admin: 04/09/18 08:58 Dose: 1 u Loratadine (Claritin) 5 mg PO QHS [facility] Magnesium Hydroxide (Milk Of Magnesia) 30 ml PO DAILY PRN PRN PRN Reason: Constipation Methylprednisolone (Solu-Medrol) 40 mg IV Q8 [facility] Montelukast Sodium (Singulair) 10 mg PO DAILY [facility] Last Admin: 04/09/18 08:59 Dose: 10 mg Nadolol (Corgard) 40 mg PO DAILY [facility] Last Admin: 04/09/18 08:59 Dose: 40 mg Ondansetron HCl (Zofran) 4 mg IV Q8H PRN PRN PRN Reason: Nausea Last Admin: 04/09/18 05:40 Dose: 4 mg Pantoprazole Sodium (Protonix) 40 mg PO DAILY [facility] Last Admin: 04/09/18 08:59 Dose: 40 mg Pramipexole Dihydrochloride (Mirapex) 0.5 mg PO QHS [facility] Sodium Chloride () 5 - 30 ml IV UD PRN PRN Reason: SALINE FLUSH Last Admin: 04/09/18 05:40 Dose: 10 ml Zolpidem Tartrate (Ambien (Generic)) 5 mg PO QHS PRN PRN PRN Reason: INSOMNIA Medical Necessity - Tobacco Use Smoking Status: Former smoker Assessment/Plan All Active Problems Acute severe exacerbation of asthma (Acute) Staphylococcal pneumonia (Ruled-out) Streptococcal pneumonia (Ruled-out) Acute and chronic respiratory failure with hypoxia (Ruled-out) Cellulitis of right breast (Ruled-out) Influenza (Ruled-out) Acute asthma exacerbation (Acute) 1. acute asthma exacerbation improving continue with Solu-Medrol and BDs influenza screen negative 2. elevated troponin pt had no symptoms (i.e., chest pain)--so unclear why it was initially checked troponins peaked as high as 0.13 suspect Type II event given asthma exacerbation check stress test which won't be able to be done until 04/11/18 3. Obesity Class III complicates overall care 4. DM2 uncontrolled due to acute duress and steroids continue with Lantus, scheduled log and SSI 5. DVT proph: SQ LMWH Code Visit Procedures: Other Procedure - See Report - Non-billable rounding.
--- NOTE | 2018-04-09 10:50 | CASEMGMT ---
RN THAIS Face to Face with patient for initial transition planning/care coordination assessment. RN CM introduced self and role at [facility]. Patient lying in bed, alert and oriented. Patient willing to participate in assessment and is able to answer all questions appropriately. Care providers, pharmacy, and demographics verified. Patient wishes to discharge home, denies need for home health at this time. Patient states she has no further needs or concerns at this time. CM to follow for discharge planning needs that may arise. PCP: Misty Specialists: Janene insurance counsel Preferred Pharmacy: [facility] Insurance: [employer] [facility] Prescription Benefit: [employer] [facility] Living Will/HPOA: [place] LNOK: Living Arrangements: Patient lives with in 2 story house. Patient is independent at home. Has family that can assist Transportation: Son or self DME/HHC: Patient has shower chair, raised toilet seat, walker, oxygen through [facility], bipap, and nebulizer. Patient has had [facility] HHC in past, denied HHC at discharge. Discussed CCN with patient and declined services. States grand daughter is a LIFE SCIENCES TEACHER. Disposition Plan: Patient to discharge home with family support and follow-up plans in place. Amparo MEJIA, RN, CM
--- NOTE | 2018-04-09 10:53 | PN_ITS ---
Patient Problems: Active and Suspected Problems Acute severe exacerbation of asthma (Acute) Subjective: feeling slightly better. still short of breath. coughing, but non-productive. Vitals/I&O's: Vital Signs Temp Pulse Resp BP Pulse Ox 36.4 C L 77 16 140/68 H 98 04/09/18 08:45 04/09/18 08:45 04/09/18 08:45 04/09/18 08:45 04/09/18 08:45 Oxygen Flow Rate (L/min) 3 Oxygen Delivery Method Nasal Cannula Weight: 136.7 kg Body Mass Index (BMI) 55.1 Finger Stick Blood Glucose 154 General: Alert, No apparent distress HEENT: Atraumatic, Normocephalic Oral: Moist Mucosa, No Gingival or Mucosal Lesions/ Ulcerations Neck: No Nodes, Thyroid Normal Size and Texture Lungs: No rhonchi, Diminished, Wheezes Cardiovascular: Regular rate, Regular Rhythm, Normal S1, Normal S2, No murmurs Abdomen: Bowel Sounds Present, Soft, Non Tender, Non-Distended, No Hepato- splenomegaly Extremities: No Calf Tenderness, Edema Skin: No rashes, No breakdown Musculoskeletal: No Tenderness to Palpation of Joints or Extremities, No Muscle Wasting Psych/Mental Status: Normal Affect, Appropriate Microbiology Past 72 Hours 04/09/18 05:00 Mucosa - Nasopharyngeal Influenza Types A,B Direct FA (RODRIGO) - Final Laboratory Results 04/09/18 01:38: WBC 11.3 H, RBC 4.60, Hgb 13.5, Hct 41.9, MCV 91.1, MCH 29.3, MCHC 32.2, RDW 13.5, RDW Differential 44.7 H, Plt Count 118 L, MPV 10.7, Immature Gran % (Auto) 0.700, Neut % (Auto) 59.8, Lymph % (Auto) 19.0, [place] % (Auto) 7.7, Eos % (Auto) 11.7 H, Baso % (Auto) 1.1 H, Absolute Neuts (auto) 6.8, Absolute Lymphs (auto) 2.15, Total Counted Not Reportable 04/09/18 01:38: Sodium 140, Potassium 4.6, Chloride 108 H, Carbon Dioxide 27.0, Anion Gap 5, BUN 20 H, Creatinine 0.92, Estim Creat Clear Calc 44.36, Est GFR (MDRD) Af Amer 78, Est GFR (MDRD) Non-Af 64, BUN/Creatinine Ratio 21.9 H, Glucose 167 H, Calcium 8.7, Troponin I 0.051 H 04/09/18 04:50: Troponin I 0.130 H 04/09/18 05:01: POC Glucose 185 H 04/09/18 06:49: POC Glucose 189 H 04/09/18 07:30: Troponin I 0.083 H Current Medications Acetaminophen (Tylenol) 650 mg PO Q6H PRN PRN PRN Reason: Mild Pain (scale 0-3)/T>100.7 Albuterol Sulfate (Ventolin Aerosols) 2.5 mg INHALATION Q2H PRN PRN PRN Reason: SHORTNESS OF BREATH Albuterol/Ipratropium (Duoneb) 3 ml INHALATION Q4H.RT [facility] Last Admin: 04/09/18 07:11 Dose: 3 ml Aspirin (Aspirin, Baby) 81 mg PO DAILY@0800 [facility] Dextrose (D50w Syringe) 0 gm IV X1 PRN; Protocol PRN Reason: Hypoglycemia Enoxaparin Sodium (Lovenox) 40 mg SC DAILY@1000 [facility] Last Admin: 04/09/18 08:58 Dose: 40 mg Ergocalciferol (Vitamin D) 50,000 unit PO SUWE@0800 [facility] Glucagon () 1 mg IM .X1 PRN PRN Reason: Hypoglycemia Hydrochlorothiazide (Hydrochlorothiazide) 12.5 mg PO DAILY [facility] Last Admin: 04/09/18 08:59 Dose: 12.5 mg Insulin Glargine (Lantus (Bkc)) 15 units SC QHS [facility] Last Admin: 04/09/18 05:39 Dose: 15 units Insulin Human Lispro (Humalog Kwikpen (Bkc)) 4 unit SQ BREAKFAST [facility] Last Admin: 04/09/18 08:58 Dose: 4 u Insulin Human Lispro (Humalog Kwikpen (Bkc)) 4 unit SQ [facility] Insulin Human Lispro (Humalog Kwikpen (Bkc)) 4 unit SQ LUNCH [facility] Insulin Human Lispro (Humalog Kwikpen (Bkc)) 0 unit SQ 4X/DAYCM [facility]; Protocol Last Admin: 04/09/18 08:58 Dose: 1 u Loratadine (Claritin) 5 mg PO QHS [facility] Magnesium Hydroxide (Milk Of Magnesia) 30 ml PO DAILY PRN PRN PRN Reason: Constipation Methylprednisolone (Solu-Medrol) 40 mg IV Q8 [facility] Montelukast Sodium (Singulair) 10 mg PO DAILY [facility] Last Admin: 04/09/18 08:59 Dose: 10 mg Nadolol (Corgard) 40 mg PO DAILY [facility] Last Admin: 04/09/18 08:59 Dose: 40 mg Ondansetron HCl (Zofran) 4 mg IV Q8H PRN PRN PRN Reason: Nausea Last Admin: 04/09/18 05:40 Dose: 4 mg Pantoprazole Sodium (Protonix) 40 mg PO DAILY [facility] Last Admin: 04/09/18 08:59 Dose: 40 mg Pramipexole Dihydrochloride (Mirapex) 0.5 mg PO QHS [facility] Sodium Chloride () 5 - 30 ml IV UD PRN PRN Reason: SALINE FLUSH Last Admin: 04/09/18 05:40 Dose: 10 ml Zolpidem Tartrate (Ambien (Generic)) 5 mg PO QHS PRN PRN PRN Reason: INSOMNIA Medical Necessity - Tobacco Use Smoking Status: Former smoker Assessment/Plan All Active Problems Acute severe exacerbation of asthma (Acute) Staphylococcal pneumonia (Ruled-out) Streptococcal pneumonia (Ruled-out) Acute and chronic respiratory failure with hypoxia (Ruled-out) Cellulitis of right breast (Ruled-out) Influenza (Ruled-out) Acute asthma exacerbation (Acute) 1. acute asthma exacerbation * improving * continue with Solu-Medrol and BDs * influenza screen negative 2. elevated troponin * pt had no symptoms (i.e., chest pain)--so unclear why it was initially checked * troponins peaked as high as 0.13 * suspect Type II event given asthma exacerbation * check stress test which won't be able to be done until 04/11/18 3. Obesity Class III * complicates overall care 4. DM2 * uncontrolled due to acute duress and steroids * continue with Lantus, scheduled log and SSI 5. DVT proph: SQ LMWH Code Visit Procedures: Other Procedure - See Report - Non-billable rounding.
[2018-04-09 11:41] LABS: Bedside Glucose 256 mg/dL (70-110)
[2018-04-09] MEDS: Aspirin 81 MG TAB.CHEW PO (12:06)
[2018-04-09 16:26] LABS: Bedside Glucose 307 mg/dL (70-110)
[2018-04-09] MEDS: Loratadine 10 MG Tablet 5 MG PO (22:27)
[2018-04-09] MEDS: Pramipexole Di-HCl 0.5 MG Tablet PO (22:29)
[2018-04-09 23:05] LABS: Bedside Glucose 269 mg/dL (70-110)
[2018-04-10] VITALS (23 sets, daily range): BP systolic 123–157; BP diastolic 51–81; PULSE 70–86; RESP 15–20; TEMP 36.4–36.9; O2SAT 96–100
[2018-04-10] MEDS: Ipratropium/Albuterol Sulfate 3 ML AMPUL.NEB INHALATION ×6 (02:55→23:15)
[2018-04-10] MEDS: 0.9% NaCl Peripheral Flush Adult/Peds IV ×2 (05:02→21:49)
[2018-04-10 07:06] LABS: Bedside Glucose 275 mg/dL (70-110)
[2018-04-10] MEDS: Insulin Lispro 100 UNIT/ML INSULN.PEN SQ ×7 (08:29→21:49)
[2018-04-10] MEDS: Aspirin 81 MG TAB.CHEW PO (08:29)
[2018-04-10] MEDS: hydroCHLOROthiazide 12.5mg 12.5 MG PO (08:31)
[2018-04-10] MEDS: Enoxaparin 40 MG/0.4 ML Syringe SC (08:31)
[2018-04-10] MEDS: Montelukast 10 MG Tablet PO (08:31)
[2018-04-10] MEDS: Pantoprazole Sodium 40 MG Tablet PO (08:31)
[2018-04-10] MEDS: Nadolol 40 MG Tablet PO (08:31)
[2018-04-10] MEDS: Gabapentin 300 MG Capsule PO ×2 (08:34→15:55)
--- NOTE | 2018-04-10 10:55 | PCM.PN.HOSP ---
Patient Problems: Active and Suspected Problems Acute severe exacerbation of asthma (Acute) Subjective: still short of breath, but no change. still no chest pain. Vitals/I&O's: Vital Signs Temp Pulse Resp BP Pulse Ox 36.7 C 74 16 125/56 H 96 04/10/18 09:50 04/10/18 09:50 04/10/18 09:50 04/10/18 09:50 04/10/18 09:50 Oxygen Flow Rate (L/min) 3 Oxygen Delivery Method Nasal Cannula Weight: 136.7 kg Body Mass Index (BMI) 55.1 Finger Stick Blood Glucose 154 Intake and Output for Last 24 Hours 04/08/18 04/09/18 04/10/18 23:59 23:59 22:59 Intake Total 1120 / 1120 520 / 520 Balance 1120 / 1120 520 / 520 General: Alert, Cooperative, No apparent distress HEENT: Atraumatic, Normocephalic Oral: Moist Mucosa, No Gingival or Mucosal Lesions/ Ulcerations Neck: No Nodes, Thyroid Normal Size and Texture Lungs: Clear to auscultation, Diminished Cardiovascular: Regular rate, Regular Rhythm, Normal S1, Normal S2 Abdomen: Bowel Sounds Present, Soft, Non Tender, Non-Distended, Obese Extremities: No Calf Tenderness, Edema Skin: No rashes, No breakdown Psych/Mental Status: Normal Affect, Appropriate Microbiology Past 72 Hours 04/09/18 05:00 Mucosa - Nasopharyngeal Influenza Types A,B Direct FA (RODRIGO) - Final Laboratory Results 04/09/18 16:17: POC Glucose 307 H 04/09/18 22:23: POC Glucose 269 H 04/10/18 06:44: POC Glucose 275 H Current Medications Acetaminophen (Tylenol) 650 mg PO Q6H PRN PRN PRN Reason: Mild Pain (scale 0-3)/T>100.7 Albuterol Sulfate (Ventolin Aerosols) 2.5 mg INHALATION Q2H PRN PRN PRN Reason: SHORTNESS OF BREATH Albuterol/Ipratropium (Duoneb) 3 ml INHALATION Q4H.RT [facility] Last Admin: 04/10/18 10:40 Dose: 3 ml Aspirin (Aspirin, Baby) 81 mg PO DAILY@0800 [facility] Last Admin: 04/10/18 08:29 Dose: 81 mg Dextrose (D50w Syringe) 0 gm IV X1 PRN; Protocol PRN Reason: Hypoglycemia Enoxaparin Sodium (Lovenox) 40 mg SC DAILY@1000 [facility] Last Admin: 04/10/18 08:31 Dose: 40 mg Ergocalciferol (Vitamin D) 50,000 unit PO SUWE@0800 [facility] Last Admin: 04/10/18 08:32 Dose: 50,000 unit Gabapentin (Neurontin) 300 mg PO BIDCM [facility] Last Admin: 04/10/18 08:34 Dose: 300 mg Glucagon () 1 mg IM .X1 PRN PRN Reason: Hypoglycemia Hydrochlorothiazide (Hydrochlorothiazide) 12.5 mg PO DAILY [facility] Last Admin: 04/10/18 08:31 Dose: 12.5 mg Insulin Human Lispro (Humalog Kwikpen (Bkc)) 4 unit SQ BREAKFAST [facility] Last Admin: 04/10/18 08:29 Dose: 4 u Insulin Human Lispro (Humalog Kwikpen (Bkc)) 4 unit SQ DINNER [facility] Last Admin: 04/09/18 16:31 Dose: 4 u Insulin Human Lispro (Humalog Kwikpen (Bkc)) 4 unit SQ LUNCH [facility] Last Admin: 04/09/18 12:05 Dose: 4 u Insulin Human Lispro (Humalog Kwikpen (Bkc)) [facility] Protocol Last Admin: 04/10/18 08:29 Dose: 4 u Loratadine (Claritin) 5 mg PO QHS [facility] Last Admin: 04/09/18 22:27 Dose: 5 mg Magnesium Hydroxide (Milk Of Magnesia) 30 ml PO DAILY PRN PRN PRN Reason: Constipation Montelukast Sodium (Singulair) 10 mg PO DAILY [facility] Last Admin: 04/10/18 08:31 Dose: 10 mg Nadolol (Corgard) 40 mg PO DAILY [facility] Last Admin: 04/10/18 08:31 Dose: 40 mg Ondansetron HCl (Zofran) 4 mg IV Q8H PRN PRN PRN Reason: Nausea Last Admin: 04/09/18 05:40 Dose: 4 mg Pantoprazole Sodium (Protonix) 40 mg PO DAILY [facility] Last Admin: 04/10/18 08:31 Dose: 40 mg Pramipexole Dihydrochloride (Mirapex) 0.5 mg PO QHS [facility] Last Admin: 04/09/18 22:29 Dose: 0.5 mg Sodium Chloride () 5 - 30 ml IV UD PRN PRN Reason: SALINE FLUSH Last Admin: 04/10/18 05:02 Dose: 10 ml Zolpidem Tartrate (Ambien (Generic)) 5 mg PO QHS PRN PRN PRN Reason: INSOMNIA Medical Necessity - Tobacco Use Smoking Status: Former smoker Assessment/Plan All Active Problems Acute severe exacerbation of asthma (Acute) Staphylococcal pneumonia (Ruled-out) Streptococcal pneumonia (Ruled-out) Acute and chronic respiratory failure with hypoxia (Ruled-out) Cellulitis of right breast (Ruled-out) Influenza (Ruled-out) Acute asthma exacerbation (Acute) 1. acute asthma exacerbation improving continue with Solu-Medrol and BDs influenza screen negative decrease Solu-Medrol to 40 BID, if remains stable 04/11, could transition to prednisone 40 ambulatory pulse ox prior to discharge 2. elevated troponin pt had no symptoms (i.e., chest pain)--so unclear why it was initially checked troponins peaked as high as 0.13 suspect Type II event given asthma exacerbation check stress test which won't be able to be done until 04/11/18 on ASA 81 check FLP 3. Obesity Class III complicates overall care 4. DM2 uncontrolled due to acute duress and steroids continue with Lantus, scheduled log and SSI increase Lantus from 15 to 25 5. DVT proph: SQ LMWH Code Visit Inpatient E&M: 19305 Subs Hosp L2
[2018-04-10 11:36] LABS: Bedside Glucose 371 mg/dL (70-110)
[2018-04-10 16:30] LABS: Bedside Glucose 353 mg/dL (70-110)
[2018-04-10] MEDS: Magnesium Hydroxide 30 ML UDC PO (18:15)
[2018-04-10] MEDS: Loratadine 10 MG Tablet 5 MG PO (21:48)
[2018-04-10] MEDS: Pramipexole Di-HCl 0.5 MG Tablet PO (21:48)
[2018-04-10 23:15] LABS: Bedside Glucose 265 mg/dL (70-110)
[2018-04-11] VITALS (11 sets, daily range): BP systolic 122–162; BP diastolic 55–96; PULSE 60–76; RESP 16–20; TEMP 36.3–36.7; O2SAT 95–98
[2018-04-11] MEDS: Ipratropium/Albuterol Sulfate 3 ML AMPUL.NEB INHALATION ×2 (03:33→10:41)
[2018-04-11] MEDS: Aspirin 81 MG TAB.CHEW PO (05:49)
--- NOTE | 2018-04-11 05:55 | EKG12_ITS ---
Test Reason : AM EKG Blood Pressure : / mmHG Vent. Rate : 079 BPM Atrial Rate : 079 BPM P-R Int : 208 ms QRS Dur : 076 ms QT Int : 384 ms P-R-T Axes : 080 016 070 degrees QTc Int : 440 ms Sinus rhythm with Premature atrial complexes Otherwise normal ECG When compared with ECG of 09-APR-2018 00:49, MANUAL COMPARISON REQUIRED, DATA IS UNCONFIRMED Confirmed by JACLYN RIVERA, KATIE ([id number]), sports editor SAIRA WHITMORE ([id number]) on 04/14/2018 4:03:22 PM Referred By: DR PERDOMO Confirmed By:KATIE ANAYA MD
[2018-04-11 06:19] LABS: Absolute Lymphocyte Count 1.38 X10^3/ul (0.83-4.51); Absolute Neutrophil Count 10.9 X10^3/uL (2.0-7.7); Basophil# 0.01 X10^3/uL; Basophil% 0.1 % (0-1); Eosinophil# 0.02 X10^3/uL; Eosinophils% 0.2 % (0-5); Hematocrit 36.9 % (37-47); Hemoglobin 11.9 g/dl (12.0-15.0); Lymphocyte # 1.38 X10^3/ul (4.0); Lymphocyte % 10.8 % (19-41); Mean Corp Hgb Conc 32.2 g/gl (32-36); Mean Platelet Vol. 10.4 fl (6.2-12.0); Monocyte# 0.42 X10^3/uL; Monocyte% 3.3 % (0-10); Neutrophil # 10.87 X10^3/uL (2.7-7.7); Neutrophil % 85.2 % (47-70); Platelet Count 141 K/mm3 (150-450); RBC Distribution Width CV 13.2 % (11.6-14.6); RBC Distribution Width SD 43.4 fl (35.1-43.9); White Blood Count 12.8 K/mm3 (4.4-11.0)
[2018-04-11 06:34] LABS: International Normalized Ratio 1.1; Partial Thromboplast Time 27.2 Seconds (24.1-36.2)
[2018-04-11 06:35] LABS: Anion Gap 6 (5-15); BUN 22 mg/dL (7-18); BUN/Creat Ratio 29.1 RATIO (10-20); Calcium,Total 8.8 mg/dL (8.5-10.1); Chloride 99 mmol/L (98-107); Cholesterol 232 mg/dL (200); Creatinine, Serum 0.76 mg/dL (0.55-1.02); EST Glomerular Filtration Rate 80 mL/min (>60); Est Glom Filt Rate - Afr Amer 97 mL/min (>60); Estimated Creatinine Clearance 40.81 ml/min; Glucose 234 mg/dL (74-106); High Density Lipoprotein 45 mg/dL; Potassium 4.5 mmol/L (3.5-5.1); Sodium Level 139 mmol/L (136-145); Triglycerides 116 mg/dL; Very Low Density Lipoprotein 23 mg/dL (5-40)
[2018-04-11 06:53] LABS: POSITIVE COUNT NO; POSITIVE DIFFERENTIAL NO; POSITIVE MORPHOLOGY NO
[2018-04-11] MEDS: Montelukast 10 MG Tablet PO (09:44)
[2018-04-11] MEDS: hydroCHLOROthiazide 12.5mg 12.5 MG PO (09:45)
[2018-04-11] MEDS: Nadolol 40 MG Tablet PO (09:45)
[2018-04-11] MEDS: Enoxaparin 40 MG/0.4 ML Syringe SC (09:45)
[2018-04-11] MEDS: Gabapentin 300 MG Capsule PO (09:45)
[2018-04-11] MEDS: Pantoprazole Sodium 40 MG Tablet PO (09:46)
[2018-04-11] MEDS: 0.9% NaCl Peripheral Flush Adult/Peds IV (09:47)
--- NOTE | 2018-04-11 11:10 | STRESSREP ---
Stress Test Report Pharmacologic myocardial perfusion stress test. 72-year-old lady with a history of chest pain. Stress protocol: Resting EKG demonstrates normal sinus rhythm with a rate of 72 bpm normal intervals and noted resting blood pressure 128/82 mmHg. 0.4 mg of regadenoson was infused per usual protocol followed by rapid intravenous saline flush injection continuous EKG monitoring was performed. At rest there were no ST or T wave changes noted suggest abnormal flow reserve at peak infusion no ST or T wave changes were noted suggest abnormal flow reserve. Resting blood pressure 128/82 final blood pressure was 124/82. Myocardial perfusion protocol. 13.8 mCi of technetium 99m sestamibi was injected at rest. 0.4 mg of regadenoson was infused per usual protocol peak infusion 41.2 mCi of technetium 99m sestamibi was injected stress images were obtained stress and rest images were reconstructed and compared in the short axis vertical long and horizontal long axis. Gated images were also obtained Perfusion SPECT analysis: Review of the stress images demonstrate normal uptake of tracer noted in all areas of the myocardium. The resting images similarly demonstrate normal uptake of tracer noted in all areas of the myocardium. No areas of reversibility are noted suggest ischemia no previous infarct is noted. Gated SPECT analysis: The gated ejection fraction is 76%. Conclusion: Normal pharmacologic myocardial perfusion stress test. Preserved ejection fraction.
[2018-04-11 11:11] LABS: Bedside Glucose 161 mg/dL (70-110)
--- NOTE | 2018-04-11 11:32 | DCINST_ITS ---
- Discharge Diagnoses Current Active Problems: Current Active and Chronic Problems Acute severe exacerbation of asthma (Acute) You will use the following diet at home:: Calorie/Carbohydrate Controlled (specify 1200, 1400, etc) - 1800 karthik / day, Cardiac Your food should be the consistency of: Regular Your liquids should be the consistency of: Regular/Thin Discharge Activity: Return to Normal Activity Allergies/Adverse Reactions: Allergies adhesive tape Allergy (Verified 04/09/18 00:24) Unknown listed on pcp allergy list cefadroxil [From Duricef] Allergy (Verified 04/09/18 00:24) Unknown mesalamine [From Asacol] Allergy (Verified 04/09/18 00:24) Unknown listed on pcp allergy list omalizumab [From Xolair] Allergy (Verified 04/09/18 00:24) Unknown listed on pcp allergy list Sulfa (Sulfonamide Antibiotics) Allergy (Verified 04/09/18 00:24) Unknown Medications to take at Discharge Cholecalciferol (Vitamin D3) [Vitamin D3] 50,000 unit PO SUWE@0800 06/01/17 Lansoprazole [Prevacid] 30 mg PO DAILY 06/01/17 Levocetirizine Dihydrochloride [Xyzal] 5 mg PO QHS 06/01/17 Pramipexole Di-HCl [Mirapex] 0.5 mg PO QHS 06/01/17 Montelukast [Singulair] 10 mg PO DAILY 11/24/17 Nadolol 40 mg PO DAILY 11/24/17 Albuterol Aerosols [Ventolin Aerosols] 2.5 mg INHALATION Q2H PRN PRN #1 box 11/26/17 Albuterol IH (ProAir) [Proair Hfa] 2 puff INHALATION Q6H PRN PRN 03/25/18 Albuterol Inhaler [Ventolin Hfa] 2 puff INHALATION Q6H PRN PRN 03/25/18 Hydrochlorothiazide 12.5 mg PO DAILY 03/25/18 Insulin NPH Human Isophane [Humulin N Kwikpen] 60 unit SQ BID 03/25/18 Acetaminophen [Tylenol] 1,000 mg PO Q8H PRN PRN tablet 03/30/18 Ondansetron [Zofran Odt] 4 mg PO Q8H PRN PRN #21 tablet 03/30/18 Potassium Chloride [K-Dur] 10 meq PO DAILYCM #30 tablet 03/30/18 Gabapentin [Neurontin] 300 mg PO BID 04/09/18 Prednisone 10 mg PO UD #30 tab 04/11/18 The following prescriptions were given: Prednisone 10 mg PO UD #30 tab Primary Care Physician: Senait Jay MD [Primary Care Provider] - Please follow up with your Primary Care Physician in: 1-2 weeks Test Results: Test results from this visit will be discussed in further detail at your follow- up appointment, if applicable. Please Follow Up With: Dre Watters MD When: 2 weeks Proposed Discharge Date: 04/11/18
[2018-04-11] MEDS: Insulin Lispro 100 UNIT/ML INSULN.PEN SQ ×2 (11:49)
[2018-04-11 12:56] LABS: Bedside Glucose 234 mg/dL (70-110)
--- NOTE | 2018-04-11 14:25 | DS.PCM_ITS ---
Discharge Date and Diagnosis Date of Admission: 04/09/18 Date of Discharge: 04/11/18 - Primary Discharge Diagnosis Acute asthma exacerbation Indeterminate troponin suspect secondary to type II events this is secondary to asthma exacerbation Type 2 diabetes Chronic hypoxic respiratory failure DORY on BiPAP Morbid obesity History of CHF History of hypertension - Secondary Discharge Diagnosis Chronic Problems Breast cancer, right breast (Chronic) Vitamin D deficiency (Chronic) Hypertension (Chronic) Diabetes mellitus (Chronic) Allergic rhinitis (Chronic) GERD (gastroesophageal reflux disease) (Chronic) Restless leg syndrome (Chronic) Body mass index (BMI) 50-59.9, adult (Chronic) Migraine headache (Chronic) Obstructive sleep apnea (Chronic) Osteoarthritis (Chronic) Celiac disease (Chronic) Asthma (Chronic) BMI 50.0-59.9, adult (Chronic) History of right breast cancer (Chronic) Sleep apnea (Chronic) Diabetes mellitus, type II (Chronic) Anxiety and depression (Chronic) Hospital Course and Treatment Imaging Results: CXR: IMPRESSION: No acute disease or significant change. Stress test: Negative for ischemia with preserved EF. Operations: None Procedures: Stress test Summary of Care Provided: Hospital course: The patient is a 72 year old F with Related medical history as above who presented to the emergency room with increased shortness of breath and wheezing. She stated she has had ongoing issues with off and on asthma exacerbations that she has required multiple rounds of steroids recently. She is a patient of Dr. Watters. She had a negative chest x-ray. She was admitted to the PCU for acute asthma exacerbation given IV Solu-Medrol and breathing treatments. At admission a troponin was checked and was indeterminate. This was cycled and remained flat. She underwent a stress test once stable which was negative for ischemia. She was able to be transitioned to oral prednisone and discharged on a taper dose. She was stable on her home oxygen dose of 2 L/min via nasal cannula. She was compliant with BiPAP at night. She was advised to follow-up with her PCP in 1-2 weeks and pulmonology in 2 weeks. She was discharged home in stable condition. This patient was seen by Jm Garces PA-C under the supervision of Doctor Miramontes. [] - Physical Exam General: Alert, Oriented x3, Cooperative HEENT: Atraumatic, PERRLA, EOMI, Normocephalic Neck: Supple, No JVD, Negative Carotid Bruits Lungs: Diminished, Wheezes Cardiovascular: Regular rate, No murmurs Abdomen: Bowel Sounds Present, Soft, Non Tender, Obese Extremities: No edema, Capillary Refill Less than 3 Seconds Skin: No rashes, No breakdown Musculoskeletal: No Tenderness to Palpation of Joints or Extremities Neurological: Cranial nerves II-XII grossly intact Psych/Mental Status: Normal Affect, Appropriate Vital Signs Temp Pulse Resp BP Pulse Ox 97.9 F 60 20 H 162/96 H 97 04/11/18 12:00 04/11/18 12:00 04/11/18 12:00 04/11/18 12:00 04/11/18 12:00 Oxygen Flow Rate (L/min) 2 Oxygen Delivery Method Nasal Cannula Weight: 301 lb 5.95 oz Body Mass Index (BMI) 55.1 Finger Stick Blood Glucose 154 Intake and Output for Last 24 Hours 04/10/18 04/10/18 04/11/18 00:59 23:59 23:59 Intake Total 750 / 750 Balance 750 / 750 Microbiology Past 72 Hours 04/09/18 05:00 Influenza Types A,B Direct FA (RODRIGO) - Final Mucosa - Nasopharyngeal Laboratory Tests Past 24 Hrs 04/11/18 04/11/18 04/11/18 05:22 05:22 05:22 WBC 12.8 H RBC 4.10 L Hgb 11.9 L Hct 36.9 L MCV 90.0 MCH 29.0 MCHC 32.2 RDW 13.2 RDW Differential 43.4 Plt Count 141 L MPV 10.4 Immature Gran % (Auto) 0.400 Neut % (Auto) 85.2 H Lymph % (Auto) 10.8 L Christian % (Auto) 3.3 Eos % (Auto) 0.2 Baso % (Auto) 0.1 Absolute Neuts (auto) 10.9 H Absolute Lymphs (auto) 1.38 Total Counted Not Reportable PT 14.0 INR 1.1 APTT 27.2 Sodium 139 Potassium 4.5 Chloride 99 Carbon Dioxide 34.0 H Anion Gap 6 BUN 22 H Creatinine 0.76 Estim Creat Clear Calc 40.81 Est GFR (MDRD) Af Amer 97 Est GFR (MDRD) Non-Af 80 BUN/Creatinine Ratio 29.1 H Glucose 234 H Calcium 8.8 Triglycerides 116 Cholesterol 232 H LDL Cholesterol 164 H VLDL Cholesterol 23 HDL Cholesterol 45 POC Glucose 04/11/18 04/11/1818 10:58 05:53 21:46 POC Glucose 161 H 234 H 265 H 04/10/18 15:51 POC Glucose 353 H Discharge Diet: Low fat/ Low Cholesterol, 1800 Calorie Control Diet, 2000 mg Sodium Diet Discharge Activity: Return to Normal Activity Home Medications: Medications to take at Discharge Cholecalciferol (Vitamin D3) [Vitamin D3] 50,000 unit PO SUWE@0800 06/01/17 Lansoprazole [Prevacid] 30 mg PO DAILY 06/01/17 Levocetirizine Dihydrochloride [Xyzal] 5 mg PO QHS 06/01/17 Pramipexole Di-HCl [Mirapex] 0.5 mg PO QHS 06/01/17 Montelukast [Singulair] 10 mg PO DAILY 11/24/17 Nadolol 40 mg PO DAILY 11/24/17 Albuterol Aerosols [Ventolin Aerosols] 2.5 mg INHALATION Q2H PRN PRN #1 box 11/26/17 Albuterol IH (ProAir) [Proair Hfa] 2 puff INHALATION Q6H PRN PRN 03/25/18 Albuterol Inhaler [Ventolin Hfa] 2 puff INHALATION Q6H PRN PRN 03/25/18 Hydrochlorothiazide 12.5 mg PO DAILY 03/25/18 Insulin NPH Human Isophane [Humulin N Kwikpen] 60 unit SQ BID 03/25/18 Acetaminophen [Tylenol] 1,000 mg PO Q8H PRN PRN tablet 03/30/18 Ondansetron [Zofran Odt] 4 mg PO Q8H PRN PRN #21 tablet 03/30/18 Potassium Chloride [K-Dur] 10 meq PO DAILYCM #30 tablet 03/30/18 Gabapentin [Neurontin] 300 mg PO BID 04/09/18 Prednisone 10 mg PO UD #30 tab 04/11/18 Following Prescrptions Were Given to Patient: Prednisone 10 mg PO UD #30 tab Primary Care Physician: Senait Jay MD [Primary Care Provider] - Please follow up with your Primary Care Physician in: 1-2 weeks Please Follow Up With: Dre Watters MD When: 2 weeks Please Follow Up With: Senait Jay MD Disposition: Home Minutes spent on discharge:: 35 Patient Condition:: Stable Medical Necessity - Tobacco Use Smoking Status: Former smoker Meaningful Use Info Meaningful Use Diagnoses (Choose all that apply): None applicable
--- NOTE | 2018-04-12 15:22 | CASEMGMT ---
JASWINDER PLASCENCIA Discharge follow-up phone call LACE: 11 STRATA: 3 Discharge Date: 04-11-18 Adm Dx: Acute Exac of Asthma Call placed to pt for discharge follow-up. No answer. Message left on cellular [employer] for pt to return call to [employer] SCIENTIST CM if she would have any questions or concerns re: discharge instructions or medications. Phone number provided. Neftaly MEJIA RN, CM
== END 2018-04-11 14:15 | disposition home or self-care (01) | DRG 202 ==
LOC: ED 00:44 → PCU 04:03
PROVIDERS: Admitting Provider Hospitalist; Emergency Provider Emergency Medicine; Family Provider Internal Medicine; PCP Internal Medicine; Visit Provider Internal Medicine
DX: J45.901 Unspecified asthma with (acute) exacerbation (principal); Z68.43 Body mass index [BMI] 50.0-59.9, adult; J96.11 Chronic respiratory failure with hypoxia; G47.33 Obstructive sleep apnea (adult) (pediatric); G25.81 Restless legs syndrome; E11.9 Type 2 diabetes mellitus without complications; Z99.81 Dependence on supplemental oxygen; Z79.4 Long term (current) use of insulin; I10 Essential (primary) hypertension; Z87.891 Personal history of nicotine dependence; E66.01 Morbid (severe) obesity due to excess calories; K90.0 Celiac disease; Z85.3 Personal history of malignant neoplasm of breast; F41.9 Anxiety disorder, unspecified; F32.9 Major depressive disorder, single episode, unspecified; M19.90 Unspecified osteoarthritis, unspecified site; K21.9 Gastro-esophageal reflux disease without esophagitis; E55.9 Vitamin D deficiency, unspecified
CPT/HCPCS: 36415; 71045; 78452; 80048; 80061; 82962; 84484; 85025; 85610; 85730; 87804; 93005; 93017; 94003; 94640; 94660; 97162; 97165; 99251; 99285; A9500; A4216; G0463; J2405; J2785

== ENCOUNTER 2018-06-12 17:16 | Emergency (ER) | payer MEDICARE, SELFPAY ==
[2018-06-12 17:17] VITALS: BP 161/68; PULSE 79; RESP 26; TEMP 35.5; O2SAT 97; BMI 53.1
[2018-06-12 17:36] LABS: Bedside Glucose 226 mg/dL (70-110)
--- NOTE | 2018-06-12 17:39 | EKG12_ITS ---
Test Reason : Blood Pressure : / mmHG Vent. Rate : 078 BPM Atrial Rate : 078 BPM P-R Int : 238 ms QRS Dur : 084 ms QT Int : 382 ms P-R-T Axes : 057 007 099 degrees QTc Int : 435 ms Sinus rhythm with 1st degree A-V block Abnormal QRS-T angle, consider primary T wave abnormality Abnormal ECG Confirmed by JACLYN RIVERA, KATIE ([id number]), tape editor SAIRA WHITMORE ([id number]) on 06/14/2018 9:43:06 AM Referred By: RENATA Confirmed By:KATIE ANAYA MD
--- NOTE | 2018-06-12 18:10 | CT_ITS ---
STUDY: CT ABDOMEN AND PELVIS WITH CONTRAST REASON FOR EXAM: Female, 72 years old. Left lower quadrant pain, nausea and vomiting RADIATION DOSAGE (If Supplied By Facility): CTDIvol = ( 32.04 ) mGy, DLP = ( 1276.37 ) mGycm TECHNIQUE: Transaxial images were obtained from the dome of the diaphragm to the symphysis pubis without oral contrast. 100ML ml of Isovue 300 contrast was administered. Sagittal and coronal images were reconstructed. Individualized dose optimization techniques were used for this CT. COMPARISON: None. FINDINGS: The visualized lung bases are unremarkable. The visualized portions of the heart are within normal limits. Normal liver. Normal gallbladder and extrahepatic biliary system. Normal spleen. There is diffuse atrophy of the pancreas. Normal bilateral adrenal glands. Small right-sided renal cysts. Otherwise, normal right kidney. There is left perinephric fat stranding or edema. Mild left hydronephrosis with left hydroureter. There is a stone at the left UVJ measuring 3 mm. Normal visualized stomach. Normal small intestine. There are multiple colonic diverticula consistent with diverticulosis. The appendix is visualized and appears normal. Normal abdominal aorta. Normal inferior vena cava. Normal retroperitoneum. Normal urinary bladder. There is absence of the uterus consistent with a prior hysterectomy. Normal abdominal wall. There are diffuse degenerative changes of the visualized lumbar spine. CT/Abdomen/Pelvis W IV Cont ONLY IMPRESSION: Left hydronephrosis, hydroureter and perinephric fat stranding. Small stone at the left UVJ. Electronically Signed: Curtis Hannon DO at 20:03 EST Tel , Service support ,
--- NOTE | 2018-06-12 18:11 | ED.VISSUMM ---
- ER Visit Summary Date of Service: 06/12/18 Chief Complaint: Left lower quadrant abdominal pain with nausea, vomiting and diarrhea. History of Present Illness: The patient is a 72 F 3 of noncemented diabetes prior breast cancer with recurrence and mastectomy. Patient states last week she had diarrhea and yesterday started having left lower quadrant abdominal pain with associated nausea vomiting. Sweats and chills no fever. No specific dysuria. She has had a prior partial hysterectomy. No other abdominal surgeries. Physical Examination: Older female. Vital signs are stable. Currently afebrile. Pulse ox 97% room air no signs of hypoxia. No distress. H EENT exam dry mixed membranes. Pupils round reactive light. Normal speech no facial droop. Neck nontender no lymphadenopathy. No meningismus. Lungs clear to auscultation bilaterally. Heart regular rate and rhythm no murmur rate about 80. Abdomen soft morbidly obese. She is tender in the left lower quadrant only. Nondistended. No signs of obstruction. No hernias or masses. No peritoneal signs. Extremities moving all 4. Neurovascular intact. Back nontender. Neurologically awake and alert with no focal motor deficits. Test Results: CBC White count of 10. Hemoglobin 13. Chemistries unremarkable gap 11. Normal creatinine. She is diabetic her blood sugars 221. Urinalysis shows blood but no infection. Consistent with a kidney stone. EKG done in triage shows sinus rhythm rate of 78 with a first-degree AV block. Chest x-ray shows no acute abnormality. CT abdomen pelvis showed a left ureterovesicular stone about 2-3 mm. Emergency Department Course and Treatment: Patient treated with a liter normal saline. Zofran for nausea and morphine for pain. Zofran. She is feeling much better on repeat exam at 2039. Abdomen is benign. Her nausea is resolved. We went over all of her test results. Treatment Plan: [place] for pain. Zofran for nausea. Disposition: Discharge Impression: Acute left lower quadrant abdominal pain secondary to left uretero- vesicular kidney stone Acute nausea, vomiting and diarrhea Acute dehydration History of insulin-dependent diabetes History of breast CA with recurrence This note was generated with [employer] software. It may contain incorrect words, spelling, and punctuation that were not noted in review of the chart prior to signing ED Disposition - Plan for ED Patient: Chief Complaint: Nausea/Vomiting/Diarrhea Referrals: Senait Jay MD [Primary Care Provider] -
[2018-06-12 18:18] VITALS: BP 192/91; PULSE 81; RESP 14; O2SAT 93
[2018-06-12] MEDS: Morphine 4 MG/ML Syringe 6 MG IV ×2 (18:19→19:56)
[2018-06-12] MEDS: 0.9% Normal Saline 1,000 ML 1000 ML IV (18:19)
[2018-06-12] MEDS: Ondansetron 4 MG/2 ML Vial IV ×2 (18:19→19:56)
[2018-06-12 18:20] LABS: Absolute Lymphocyte Count 1.47 X10^3/ul (0.83-4.51); Absolute Neutrophil Count 7.8 X10^3/uL (2.0-7.7); Basophil# 0.04 X10^3/uL; Basophil% 0.4 % (0-1); Eosinophil# 0.32 X10^3/uL; Eosinophils% 3.2 % (0-5); Hematocrit 41.2 % (37-47); Hemoglobin 13.9 g/dl (12.0-15.0); Lymphocyte # 1.47 X10^3/ul (4.0); Lymphocyte % 14.5 % (19-41); Mean Corp Hgb Conc 33.7 g/gl (32-36); Mean Corpuscular Hgb 29.4 pg (27.0-32.0); Mean Corpuscular Volume 87.3 fL (81-99); Mean Platelet Vol. 9.8 fl (6.2-12.0); Monocyte# 0.45 X10^3/uL; Monocyte% 4.4 % (0-10); Neutrophil # 7.82 X10^3/uL (2.7-7.7); Neutrophil % 77.3 % (47-70); Platelet Count 155 K/mm3 (150-450); RBC Distribution Width CV 13.8 % (11.6-14.6); RBC Distribution Width SD 44.1 fl (35.1-43.9); Red Blood Count 4.72 M/mm3 (4.2-5.4); White Blood Count 10.1 K/mm3 (4.4-11.0)
[2018-06-12 18:22] LABS: POSITIVE COUNT NO; POSITIVE DIFFERENTIAL NO; POSITIVE MORPHOLOGY NO
[2018-06-12 18:30] VITALS: BP 201/95; PULSE 83; RESP 17; TEMP 36.6; O2SAT 95
[2018-06-12 18:32] LABS: Anion Gap 11 (5-15); BUN 11 mg/dL (7-18); BUN/Creat Ratio 13.8 RATIO (10-20); Calcium,Total 9.2 mg/dL (8.5-10.1); Chloride 106 mmol/L (98-107); EST Glomerular Filtration Rate 76 mL/min (>60); Est Glom Filt Rate - Afr Amer 91 mL/min (>60); Estimated Creatinine Clearance 53.36 ml/min; Glucose 221 mg/dL (74-106); Potassium 4.2 mmol/L (3.5-5.1); Sodium Level 138 mmol/L (136-145)
--- NOTE | 2018-06-12 18:53 | RAD_ITS ---
STUDY: X-RAY CHEST REASON FOR EXAM: Female, 72 years old. Nausea and vomiting diarrhea TECHNIQUE: PA and lateral views of the chest. COMPARISON: 04/09/2018 FINDINGS: Lungs are mildly hypoinflated. Lungs appear clear. There is no demonstrated pleural abnormality. There is borderline cardiomegaly. Normal mediastinum and tanna. Normal visualized pulmonary arteries. Normal visualized aortic arch and descending thoracic aorta. Normal visualized thoracic spine. Normal visualized ribs, clavicles, and shoulders. There is no demonstrated abnormality of the visualized soft tissue structures of the upper abdomen. RAD/Chest PA and Lateral IMPRESSION: Hypoinflated lungs. Borderline cardiomegaly. Lungs appear clear. Electronically Signed: Curtis Hannon DO at 20:08 EST Tel , Service support ,
[2018-06-12 19:03] LABS: Bacteria 0 SEEN /hpf (None Seen); Mucous, Urine 0 SEEN /hpf (<or=2+)
[2018-06-12 19:06] LABS: Color, Urine Yellow (Yellow); Glucose, Dipstick 100 mg/dl (Normal); Ketone-Dipstick 50 mg/dl (Negative); Leukocyte Esterase-Dipstick 25 /ul (Negative); Nitrite-Dipstick Negative (Negative); Occult Blood-Urine 250 /ul (Negative); Protein-Dipstick 30 mg/dl (Negative); Urine Bilirubin Dipstick Negative (Negative); Urine Clarity Cloudy (Clear); Urine Urobilinogen Normal (Normal)
[2018-06-12 19:20] LABS: Red Blood Cells-Urine 50-100 SEEN /hpf (0-5); Squamous Epithelial Cells - UA 0-5 SEEN /hpf (5-10); White Blood Cells 0-5 SEEN /hpf (0-5)
[2018-06-12 19:21] LABS: Amorphous Sediment 2+ URATE
[2018-06-12 19:58] VITALS: BP 187/101; PULSE 85; PULSE 86; RESP 20; RESP 22; TEMP 36.4; O2SAT 96; O2SAT 97
--- NOTE | 2018-06-12 20:46 | ED.DEP ---
ED Disposition - Plan for ED Patient: Disposition: Home or Assisted Living Chief Complaint: Nausea/Vomiting/Diarrhea Instructions: ED Stone Renal W Colic Prescriptions: Hydrocodone/Acetaminophen [[place] 5-325 Tablet] 1 ea PO Q6H PRN PRN 4 Days #14 tab PRN Reason: Pain Ondansetron [Zofran Odt] 4 mg PO Q8H PRN PRN #10 tab PRN Reason: Nausea Referrals: Senait Jay MD [Primary Care Provider] - As Needed Additional Instructions: Plenty of fluids and rest. You have a kidney stone is down almost by your bladder. It should pass soon. [place] for pain as needed. Zofran as needed for nausea.
--- NOTE | 2018-06-12 20:49 | DCINST.ED_ITS ---
ED Disposition - Plan for ED Patient: Disposition: Home or Assisted Living Chief Complaint: Nausea/Vomiting/Diarrhea Instructions: ED Stone Renal W Colic Prescriptions: Hydrocodone/Acetaminophen [[place]ry 5-325 Tablet] 1 ea PO Q6H PRN PRN 4 Days #14 tab PRN Reason: Pain Ondansetron [Zofran Odt] 4 mg PO Q8H PRN PRN #10 tab PRN Reason: Nausea Referrals: Senait Jay MD [Primary Care Provider] - As Needed Additional Instructions: Plenty of fluids and rest. You have a kidney stone is down almost by your bladder. It should pass soon. Perry for pain as needed. Zofran as needed for nausea.
[2018-06-12] MEDS: HYDROcodone Bitartrate/Apap 5/325 Tablet PO (21:07)
[2018-06-12] MEDS: Ondansetron ODT 4 MG Tablet PO (21:07)
[2018-06-12 21:26] VITALS: BP 185/95; PULSE 90; RESP 18; O2SAT 95
== END 2018-06-12 21:20 | disposition home or self-care (01) ==
PROVIDERS: Emergency Provider Emergency Medicine; Family Provider Internal Medicine; PCP Internal Medicine
DX: N20.2 Calculus of kidney with calculus of ureter (principal); R10.32 Left lower quadrant pain; I44.0 Atrioventricular block, first degree; R11.2 Nausea with vomiting, unspecified; R19.7 Diarrhea, unspecified; E86.0 Dehydration; E11.9 Type 2 diabetes mellitus without complications; Z79.4 Long term (current) use of insulin; Z85.3 Personal history of malignant neoplasm of breast; Z90.711 Acquired absence of uterus with remaining cervical stump; Z90.10 Acquired absence of unspecified breast and nipple
CPT/HCPCS: 71046; 74177; 80048; 81001; 82962; 85025; 93005; 96361; 96374; 96375; 96376; 99285; J7030; P9612; Q9967; A4216; J2405

== ENCOUNTER → 2018-06-17 12:15 | Outpatient (CLI) | payer MEDICARE, SELFPAY ==
[2018-06-12 17:17] VITALS: BMI 53.1
[2018-06-17 13:04] LABS: Anion Gap 9 (5-15); BUN 12 mg/dL (7-18); BUN/Creat Ratio 16.9 RATIO (10-20); Calcium,Total 9.2 mg/dL (8.5-10.1); Chloride 104 mmol/L (98-107); Creatinine, Serum 0.71 mg/dL (0.55-1.02); EST Glomerular Filtration Rate 86 mL/min (>60); Est Glom Filt Rate - Afr Amer 104 mL/min (>60); Glucose 120 mg/dL (74-106); Potassium 3.6 mmol/L (3.5-5.1); Sodium Level 140 mmol/L (136-145)
[2018-06-17 13:13] LABS: Hemoglobin A1c 7.3 % (4.2-6.3)
== END ==
PROVIDERS: Family Provider Internal Medicine; PCP Internal Medicine; Referring Provider Internal Medicine; Visit Provider Internal Medicine
DX: Z79.899 Other long term (current) drug therapy (principal); E11.9 Type 2 diabetes mellitus without complications; Z79.4 Long term (current) use of insulin
CPT/HCPCS: 80048; 83036

== ENCOUNTER → 2018-09-23 15:23 | Outpatient (CLI) | payer MEDICARE, SELFPAY ==
[2018-09-23 16:10] LABS: AST(SGOT) 32 U/L (15-37); Alanine Aminotransfer ALT/SGPT 49 U/L (13-56); Albumin, Serum 3.3 g/dL (3.2-5.0); Alkaline Phosphatase 77 U/L (45-117); Bilirubin, Direct 0.08 mg/dL (0.00-0.30); Globulin 3.7 g/dL (2.2-4.2); Lipase 164 U/L (73-393)
== END ==
PROVIDERS: Family Provider Internal Medicine; PCP Internal Medicine; Referring Provider Nurse Practitioner Adult Health; Visit Provider Nurse Practitioner Adult Health
DX: R19.4 Change in bowel habit (principal)
CPT/HCPCS: 80076; 83690

== ENCOUNTER 2019-03-01 14:35 | Inpatient (IN) | payer MEDICARE, SELFPAY ==
[2019-03-01] VITALS (7 sets, daily range): BP systolic 128–148; BP diastolic 54–69; PULSE 82–94; RESP 12–28; TEMP 36.6–39.3; O2SAT 95–99; BMI 52.6; BMI 52.7
--- NOTE | 2019-03-01 14:44 | ED.RN ---
PT HYPERVENTILATING AND RESTLESS IN BED. LUNGS CLEAR. SPO2 ON 97% ON 2L. FAMILY REPORTS THAT PT WAS COVERED IN DIARRHEA AND SOME C/O NAUSEA. ABD SOFT AND SEEMINGLY NONTENDER. FAMILY UNSURE IF TOOK MEDS AND WHEN LAST HAD. MOD ANXIETY OBS. ABLE TO REORIENT AND CALM WITH COMMANDS. BG AT HOME WNL PER FAMILY. PT UNABLE TO GET COMFORTABLE IN BED. FAMILY IN AT BEDSIDE AND CALL LIGHT WITHIN REACH.
--- NOTE | 2019-03-01 14:57 | CT_ITS ---
STUDY: CT BRAIN WITHOUT CONTRAST REASON FOR EXAM: Female, 73 years old. Head injury secondary to a fall. RADIATION DOSAGE (If Supplied By Facility): CTDIvol = ( 44.99 ) mGy, DLP = ( 796.11 ) mGycm TECHNIQUE: Transaxial CT imaging of the brain was performed without administration of intravenous contrast material. Individualized dose optimization techniques were used for this CT. COMPARISON: Comparison is made with prior study dated August 15, 2017. FINDINGS: Normal soft tissue structures. There is hyperostosis frontalis internus. There is mild cerebral atrophy with widening of the extra-axial spaces and ventricular dilatation. There are areas of decreased attenuation within the white matter tracts of the supratentorial brain, consistent with microvascular disease changes. Normal basal ganglia and thalami. Normal brainstem. Normal cerebellum. There is no intracranial hemorrhage. There are no findings of an acute ischemic infarction. Opacification of the maxillary sinuses as well as ethmoid sinuses worse on the left side. Air-fluid level in the sphenoid sinus. CT/Brain/Head without Contrast IMPRESSION: Chronic involutional changes of the brain. Sinusitis. Electronically Signed: Salazar Garcia, at 15:47 EDT , Service support ,
--- NOTE | 2019-03-01 15:00 | RAD_ITS ---
STUDY: X-RAY CHEST REASON FOR EXAM: Female, 73 years old. Cough and shortness of breath. Confusion. TECHNIQUE: Single AP portable view of the chest. COMPARISON: Comparison is made with prior study dated June 12, 2018. FINDINGS: EKG electrodes are seen. Surgical clips are seen in the right axillary region. The lungs are clear and expanded. There is no demonstrated pleural abnormality. Normal size heart. Normal mediastinum and tanna. Normal visualized pulmonary arteries. There is atherosclerotic calcification of the aortic arch with tortuosity. Normal visualized thoracic spine. Normal visualized ribs, clavicles, and shoulders. There is no demonstrated abnormality of the visualized soft tissue structures of the upper abdomen. RAD/Chest 1 View (Portable) IMPRESSION: No acute abnormality is seen. Electronically Signed: Salazar Garcia, at 15:53 EDT , Service support ,
--- NOTE | 2019-03-01 15:01 | ED.VIS.GEN ---
History of Present Illness Chief Complaint: Confusion Informant: Patient, Family Onset: Yesterday Context: Gradual Onset Narrative: patient is a 73-year-old female presenting with family for concern of increased confusion, vomiting and diarrhea. She has a past medical history of 2 L nasal cannula dependency, asthma, DORY, migraines, GERD, restless leg syndrome, diabetes mellitus, hypertension and anxiety/depression. States that she has had some increased confusion and 2 falls over the past few days. She is scheduled to have a primary care appointment today for concern of urinary tract infection. She is not currently on antibiotics. Last Night patient also developed vomiting and Diarrhea. patient denies any blood in her vomit or her stool but cannot give me the number of episodes that she had. She states she has some mild lower abdominal pain. Patient states she feels mildly short of breath but denies any cough. She is not more specific than that. She denies any swelling of her legs. Is been no reports of fevers or rash. Patient denies any urinary symptoms. Today the patient did not recognize her grand daughter which was abnormal for her. Patient did have a fall last night in the bathroom. She thinks she hit her head. This was an unwitnessed fall. Patient is not on any anticoagulation. She denies any other complaints at this time. Past Medical History - Allergies and Home Meds Allergies/Adverse Reactions: Allergies adhesive tape Allergy (Verified 04/09/18 00:24) Unknown listed on pcp allergy list cefadroxil [From Duricef] Allergy (Verified 04/09/18 00:24) Unknown gluten Allergy (Verified 03/01/19 17:14) Other Celiac disease mesalamine [From Asacol] Allergy (Verified 04/09/18 00:24) Unknown listed on pcp allergy list omalizumab [From Xolair] Allergy (Verified 04/09/18 00:24) Unknown listed on pcp allergy list Sulfa (Sulfonamide Antibiotics) Allergy (Verified 04/09/18 00:24) Unknown oxycodone Adverse Reaction (Verified 06/12/18 18:30) Vomiting Primary Care Physician: Senait Jay MD [Primary Care Provider] - Past Medical History: - - Your breast cancer, diabetes, hypertension, GERD, anxiety/depression, DORY, chronic hypoxic rest michael failure, asthma, restless leg syndrome Surgical History: mastectomy - Right, lymph node dissection., - - Rectocele repair. Lives: With Family Smoking Status: Former smoker - Family History Paternal Family History: Reports: Heart Disease - Father with history of fatal AL. Maternal Family History: Reports: Cancer Review of Systems All systems negative except as indicated General: Reports: Malaise Respiratory: Reports: Dyspnea Gastrointestinal: Reports: Abdominal pain, Nausea, Vomiting, Diarrhea Neurological: Reports: - - Confusion Physical Exam Vital Signs/Narrative: Vital Signs Temp Pulse Resp BP Pulse Ox 03/01/19 14:37 99.0 F 94 28 H 130/55 H 99 03/01/19 14:36 99.0 F 89 28 H 130/55 H 97 Inital Vital Signs reviewed: Yes General: Well nourished, Well developed, No Acute Distress, - - Patient appears anxious and is squirming around in the bed Head: Normocephalic, Atraumatic Eyes: Perrl, EOMI ENT: No rhinorrhea, Dry mucous membranes Neck: Supple, Nontender, No JVD Cardiovascular: Regular rate, Regular rhythm, No murmurs Respiratory: No distress, Chest nontender, - - Course Breath sounds at the bases bilaterally Abdomen: Soft, Nontender, Nondistended, Normal bowel sounds Back: Nontender, Normal Inspection Extremities: Nontender, No edema Skin: Normal color, No rash Neurological: Alert, Oriented x3, Cranial nerves II-XII grossly intact, Normal Strength, Normal Sensation, Confused - Oriented to self and place only Psychological: Normal affect, Normal Mood Diagnostic/Tx/Re-eval Chest X-Ray - ED: 1 View, Read by ED Physician, Read by Radiologist, No Acute Disease Diagnostic Data Brain CT 03/01/19 14:57 IMPRESSION: Chronic involutional changes of the brain. Sinusitis. Electronically Signed: Salazar Garcia, at 15:47 EDT , Service support , Chest X-Ray 03/01/19 15:00 IMPRESSION: No acute abnormality is seen. Electronically Signed: Salazar Garcia, at 15:53 EDT , Service support , Clinical Impression(s) from Imaging Studies Brain CT 03/01/19 14:57 IMPRESSION: Chronic involutional changes of the brain. Sinusitis. Electronically Signed: Salazar Garcia, at 15:47 EDT , Service support , Chest X-Ray 03/01/19 15:00 IMPRESSION: No acute abnormality is seen. Electronically Signed: Salazar Garcia, at 15:53 EDT , Service support , Laboratory Data 03/01/19 03/01/19 03/01/19 15:13 15:13 15:13 WBC 15.8 H RBC 4.20 Hgb 12.5 Hct 37.6 MCV 89.5 MCH 29.8 MCHC 33.2 RDW Std Deviation 43.3 RDW Coeff of Aniceto 13.2 Plt Count 135 L MPV 9.9 Immature Gran % (Auto) 0.700 Neut % (Auto) 84.5 H Lymph % (Auto) 6.8 L Barton % (Auto) 7.6 Eos % (Auto) 0.1 Baso % (Auto) 0.3 Absolute Neuts (auto) 13.3 H Absolute Lymphs (auto) 1.08 Nucleated RBC % 0 PT 15.2 H INR 1.2 Sodium 136 Potassium 3.3 L Chloride 100 Carbon Dioxide 27.0 Anion Gap 9 BUN 21 H Creatinine 1.20 H Estim Creat Clear Calc 35.05 Est GFR (MDRD) Af Amer 57 L Est GFR (MDRD) Non-Af 47 L BUN/Creatinine Ratio 17.5 Glucose 197 H Lactic Acid Calcium 8.7 Total Bilirubin 1.60 H AST 39 H ALT 42 Alkaline Phosphatase 83 Troponin I < 0.015 Total Protein 7.1 Albumin 2.9 L Globulin 4.2 Albumin/Globulin Ratio 0.7 L Lipase 51 L Urine Color Urine Clarity Urine pH Ur Specific Minetto Urine Protein Urine Glucose (UA) Urine Ketones Urine Occult Blood Urine Nitrite Urine Bilirubin Urine Urobilinogen Ur Leukocyte Esterase Urine RBC Urine WBC Ur Squamous Epith Cells Urine Bacteria Urine Mucus 03/01/19 03/01/19 15:13 16:07 WBC RBC Hgb Hct MCV MCH MCHC RDW Std Deviation RDW Coeff of Aniceto Plt Count MPV Immature Gran % (Auto) Neut % (Auto) Lymph % (Auto) Barton % (Auto) Eos % (Auto) Baso % (Auto) Absolute Neuts (auto) Absolute Lymphs (auto) Nucleated RBC % PT INR Sodium Potassium Chloride Carbon Dioxide Anion Gap BUN Creatinine Estim Creat Clear Calc Est GFR (MDRD) Af Amer Est GFR (MDRD) Non-Af BUN/Creatinine Ratio Glucose Lactic Acid 1.5 Calcium Total Bilirubin AST ALT Alkaline Phosphatase Troponin I Total Protein Albumin Globulin Albumin/Globulin Ratio Lipase Urine Color SEE COMMENT BELOW Urine Clarity Sl. Cloudy Urine pH 5.0 Ur Specific Minetto 1.015 Urine Protein 100 H Urine Glucose (UA) Normal Urine Ketones 5 H Urine Occult Blood 10 H Urine Nitrite Positive H Urine Bilirubin 3 H Urine Urobilinogen 12 H Ur Leukocyte Esterase 100 H Urine RBC 0-5 SEEN Urine WBC 5-10 SEEN Ur Squamous Epith Cells 0 SEEN Urine Bacteria 1+ Urine Mucus 1+ - Rhythm Strip Rhythm Strip: Sinus Rhythm Rate: 89 Ectopy: None - EKG Initial EKG Interpretation: Sinus Rhythm, - - Rate of 89 Low amplitude so hard to distinguish P waves however suspect first-degree AV block Normal axis Normal intervals No significant ST segment changes - Medical Decision Making She is evaluated for episodes of nausea, vomiting and diarrhea. In addition she has increased confusion per the family. Family was concerned she had a urinary tract infection. Patient is initially tachypneic but otherwise has normal vital signs. She is on her baseline oxygen with normal O2 saturation. Patient is given IV fluids. Lab work is remarkable for leukocytosis. Urinalysis consistent with urinary tract infection. Urine culture sent. Patient started on IV Rocephin. While does have markers for sepsis she does not meet criteria for severe sepsis or septic shock. Patient has previously tolerated Rocephin multiple times per [facility]UG search. I think she will tolerate it again despite her reported allergy to cefadroxil. Discussed this with the pharmacist who is agreeable. Patient is also found to have a slightly low potassium. She is given p.o. potassium emergency room. Patient is very anxious in the ER. She is given IV Benadryl. Patient and family are agreeable with disposition. She is stable in the emergency floor. Discussed admission with Dr. Gold who is agreeable. ED Disposition - Plan for ED Patient: Disposition: Acute [facility] Diagnosis: Complicated UTI (urinary tract infection), Acute delirium, USAMA (acute kidney injury), Hypokalemia, Sepsis Referrals: Senait Jay MD [Primary Care Provider] -
[2019-03-01] MEDS: 0.9% Normal Saline 1,000 ML 1000 ML IV (15:13)
[2019-03-01 15:26] LABS: Absolute Lymphocyte Count 1.08 X10^3/uL (0.83-4.51); Absolute Neutrophil Count 13.3 X10^3/uL (2.0-7.7); Basophil# 0.04 X10^3/uL; Basophil% 0.3 % (0-1); Eosinophil# 0.01 X10^3/uL; Eosinophils% 0.1 % (0-5); Hematocrit 37.6 % (37-47); Hemoglobin 12.5 g/dL (12.0-15.0); Lymphocyte # 1.08 X10^3/ul (4.0); Lymphocyte % 6.8 % (19-41); Mean Corp Hgb Conc 33.2 g/dL (32-36); Mean Corpuscular Hgb 29.8 pg (27.0-32.0); Mean Corpuscular Volume 89.5 fL (81-99); Mean Platelet Vol. 9.9 fl (6.2-12.0); Monocyte% 7.6 % (0-10); NRBC Flagged by Analyzer 0 % (0-5); Neutrophil # 13.34 X10^3/uL (2.7-7.7); Neutrophil % 84.5 % (47-70); Platelet Count 135 K/mm3 (150-450); RBC Distribution Width CV 13.2 % (11.6-14.6); RBC Distribution Width SD 43.3 fl (35.1-43.9); White Blood Count 15.8 K/mm3 (4.4-11.0)
[2019-03-01 15:30] LABS: International Normalized Ratio 1.2; Prothrombin Time (Protime)PT. 15.2 SECONDS (11.7-14.9)
[2019-03-01 15:45] LABS: ALB/GLOB Ratio 0.7 RATIO (0.9-2.4); AST(SGOT) 39 U/L (15-37); Alanine Aminotransfer ALT/SGPT 42 U/L (13-56); Albumin, Serum 2.9 g/dL (3.2-5.0); Alkaline Phosphatase 83 U/L (45-117); Anion Gap 9 (5-15); BUN 21 mg/dL (7-18); BUN/Creat Ratio 17.5 RATIO (10-20); Calcium,Total 8.7 mg/dL (8.5-10.1); Chloride 100 mmol/L (98-107); EST Glomerular Filtration Rate 47 mL/min (>60); Est Glom Filt Rate - Afr Amer 57 mL/min (>60); Estimated Creatinine Clearance 35.05 ml/min; Globulin 4.2 g/dL (2.2-4.2); Glucose 197 mg/dL (74-106); Lipase 51 U/L (73-393); Potassium 3.3 mmol/L (3.5-5.1); Protein, Total 7.1 g/dL (6.4-8.2); Sodium Level 136 mmol/L (136-145)
[2019-03-01 15:50] LABS: Lactic Acid 1.5 mmol/L (0.4-2.0)
[2019-03-01 16:12] LABS: Squamous Epithelial Cells - UA 0 SEEN /hpf (5-10)
[2019-03-01 16:16] LABS: Glucose, Dipstick Normal (Normal); Ketone-Dipstick 5 mg/dl (Negative); Leukocyte Esterase-Dipstick 100 /ul (Negative); Nitrite-Dipstick Positive (Negative); Occult Blood-Urine 10 /ul (Negative); Protein-Dipstick 100 mg/dl (Negative); Specific Gravity, Urine 1.015 (1.002-1.030); Urine Clarity Sl. Cloudy (Clear); Urine Urobilinogen 12 mg/dl (Normal)
[2019-03-01 16:21] LABS: Color, Urine SEE COMMENT BELOW (Yellow); Urine Bilirubin Dipstick 3 mg/dL (Negative)
[2019-03-01 16:23] LABS: Red Blood Cells-Urine 0-5 SEEN /hpf (0-5); White Blood Cells 5-10 SEEN /hpf (0-5)
[2019-03-01 16:24] LABS: Bacteria 1+ /hpf (None Seen); Mucous, Urine 1+ /hpf (<or=2+)
--- NOTE | 2019-03-01 17:21 | CT_ITS ---
STUDY: CT ABDOMEN AND PELVIS WITHOUT CONTRAST REASON FOR EXAM: Female, 73 years old. Abdominal pain RADIATION DOSAGE (If Supplied By Facility): CTDIvol = ( 17.58 ) mGy, DLP = ( 880.15 ) mGycm TECHNIQUE: Transaxial images were obtained from the dome of the diaphragm to the symphysis pubis without oral contrast, and without intravenous contrast. Sagittal and coronal images were reconstructed. Individualized dose optimization techniques were used for this CT. COMPARISON: Previous study of 06/12/2018 FINDINGS: The study is limited, being performed without oral and intravenous contrast. The entire girth of the patient is not included in the [id number] of this study. The visualized lung bases are unremarkable. The visualized portions of the heart are within normal limits. Normal liver. Normal gallbladder and extrahepatic biliary system. Normal spleen. Normal pancreas. Normal bilateral adrenal glands. Normal right kidney. Normal left kidney. There is a small hiatal hernia. Normal small intestine. Normal colon. There is non-visualization of the appendix. There are calcified plaques of the abdominal aorta and common iliac arteries. Normal inferior vena cava. Normal retroperitoneum. Normal urinary bladder. There is absence of the uterus consistent with a prior hysterectomy. There is a small umbilical hernia containing fat. There are diffuse degenerative changes of the visualized thoracolumbar spine. CT/Abdomen/Pelvis without Cont IMPRESSION: 1. Small hiatal hernia. 2. Small fat-containing umbilical hernia. 3. Status post hysterectomy. 4. Diffuse degenerative changes of the visualized thoracolumbar spine. 5. There is no evidence of free intra-abdominal or intrapelvic air, fluid, or inflammatory process. Electronically Signed: Urban Ramos MD at 18:25 EDT , Service support ,
--- NOTE | 2019-03-01 17:23 | PCM.HP.STD ---
<Jm Garces - Last Filed: 03/01/19 17:41> Problem List (1) Sepsis Status: Acute (2) UTI (urinary tract infection) Status: Acute (3) Acute metabolic encephalopathy Status: Acute (4) USAMA (acute kidney injury) Status: Acute (5) Chronic respiratory failure with hypoxia Status: Chronic (6) Asthma Status: Chronic (7) BMI 50.0-59.9, adult Status: Chronic (8) Breast cancer, right breast Status: Chronic (9) Celiac disease Status: Chronic (10) Diabetes mellitus, type II Status: Chronic Qualifiers: Diabetes mellitus alf insulin use: with alf use Diabetes mellitus complication status: without complication Qualified Code(s): E11.9 - Type 2 diabetes mellitus without complications; Z79.4 - buttermaker continuous churn (current) use of insulin (11) GERD (gastroesophageal reflux disease) Status: Chronic (12) Hypertension Status: Chronic (13) Obstructive sleep apnea Status: Chronic (14) Restless leg syndrome Status: Chronic (15) Sleep apnea Status: Chronic Qualifiers: Sleep apnea type: obstructive Qualified Code(s): G47.33 - Obstructive sleep apnea (adult) (pediatric) (16) Vitamin D deficiency Status: Chronic History of Present Illness Date of Admission: 03/01/19 Chief Complaint: confusion The patient is a 73 year old F with pmhx of frequent UTIs, kidney stones, chronic hypoxic respiratory failure, DORY, DMt2 with morbid obesity, breast cancer in remission, HTN, GERD, who presented to the ER with confusion. The patient states she does not know why she is here. Daughter is present and states that yesterday the patient called and told her she thought she was getting a urinary tract infection or kidney infection because she was having burning. She started taking azo. She scheduled an appointment for this morning. However today she is confused. She complains of ongoing dysuria, urgency, hematuria, BL flank pain, and abdominal pain diffusely, also hot flashes at home. She also complains of diarrhea, she cannot tell me for how long. No Nausea and vomiting. She is SOB and tachypneic. No wheezing. In the ER UA is positive and she has significant leukocytosis and USAMA. She has not recently been on antibiotics. [] Past Medical History Past Medical History (Chronic Problems): Chronic Problems Chronic respiratory failure with hypoxia (Chronic) Breast cancer, right breast (Chronic) Vitamin D deficiency (Chronic) Hypertension (Chronic) Diabetes mellitus (Chronic) Allergic rhinitis (Chronic) GERD (gastroesophageal reflux disease) (Chronic) Restless leg syndrome (Chronic) Body mass index (BMI) 50-59.9, adult (Chronic) Migraine headache (Chronic) Obstructive sleep apnea (Chronic) Osteoarthritis (Chronic) Celiac disease (Chronic) Asthma (Chronic) BMI 50.0-59.9, adult (Chronic) History of right breast cancer (Chronic) Sleep apnea (Chronic) Diabetes mellitus, type II (Chronic) Anxiety and depression (Chronic) Allergies adhesive tape Allergy (Verified 04/09/18 00:24) Unknown listed on pcp allergy list cefadroxil [From Duricef] Allergy (Verified 04/09/18 00:24) Unknown gluten Allergy (Verified 03/01/19 17:14) Other Celiac disease mesalamine [From Asacol] Allergy (Verified 04/09/18 00:24) Unknown listed on pcp allergy list omalizumab [From Xolair] Allergy (Verified 04/09/18 00:24) Unknown listed on pcp allergy list Sulfa (Sulfonamide Antibiotics) Allergy (Verified 04/09/18 00:24) Unknown oxycodone Adverse Reaction (Verified 06/12/18 18:30) Vomiting Home Medications: Ambulatory Orders Medication Instructions Recorded Cholecalciferol (Vitamin D3) 50,000 unit PO SUWE@0800 06/01/17 [Vitamin D3] Levocetirizine Dihydrochloride 5 mg PO QHS 06/01/17 [Xyzal] Pramipexole Di-HCl [Mirapex] 0.5 mg PO QHS 06/01/17 Albuterol Aerosols [Ventolin 2.5 mg INHALATION Q2H PRN PRN #1 11/26/17 Aerosols] box Albuterol IH (ProAir) [Proair Hfa] 2 puff INHALATION Q6H PRN PRN 03/25/18 Potassium Chloride [K-Dur] 10 meq PO DAILYCM #30 tablet 03/30/18 Budesonide [Rhinocort Allergy] 2 puff NARES DAILY 06/12/18 Ondansetron [Zofran Odt] 4 mg PO Q8H PRN PRN #10 tab 06/12/18 Calcium (Elemental) [Os-Lance 500] 500 mg PO BIDCM 03/01/19 Carbamazepine 200 mg PO BID 03/01/19 Hydrochlorothiazide [Hctz] 25 mg PO DAILY 03/01/19 Insulin U-500 [Humulin R U-500 85 units SQ BID 03/01/19 ([facility])] Methylphenidate HCl 20 mg PO BID 03/01/19 [Methylphenidate ER] Nadolol [Corgard (Beta Tiffanie)] 40 mg PO BID 03/01/19 Paroxetine HCl [Paxil] 40 mg PO DAILY 03/01/19 Surgical History: hysterectomy, mastectomy - Right, lymph node dissection., - - Rectocele repair. 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 Maternal History Items: Cancer Review of Systems Constitutional: Reports: Chills, Fever, Weakness. Denies: Weight Change Eyes: Denies: Blurred vision, Double vision, Redness, Vision Change HEENT: Denies: Difficulty Hearing, Head Aches, Nasal Congestion, Sinus Congestion, Sinus Drainage Cardiovascular: Denies: Chest Pain, Chest Pressure, Chest Tightness, Edema, Heaviness, Light Headedness, Palpitations, Syncope Respiratory: Reports: Shortness of Breath, Shortness of breath at rest, Shortness of breath upon exertion. Denies: Cough, Sputum production, Wheezing Gastrointestinal: Reports: Diarrhea. Denies: Abdominal Pain, Nausea, Vomiting Genitourinary: Reports: Dysuria, Frequency, Hematuria, Urgency Musculoskeletal: Denies: Joint Pain, Joint Tenderness Skin: Denies: Dryness, Lesions, Rash, Wounds Neurological: Reports: Confusion. Denies: Focal weakness, Numbness, Tingling Psychiatric: Denies: Anxiety, Depression, Homicidal Ideations, Suicidal Ideations Hematologic/ Lymphatic: Denies: Easy Bruising, Easy Bleeding VTE Information - Inpt Only VTE Present on Admission: No VTE Pharm Prophylaxis ordered?: Yes Patient Problems: Active and Suspected Problems Complicated UTI (urinary tract infection) (Acute) Acute delirium (Acute) USAMA (acute kidney injury) (Acute) Hypokalemia (Acute) Sepsis (Acute) Acute metabolic encephalopathy (Acute) UTI (urinary tract infection) (Acute) - Physical Exam General: Alert, Oriented x3, Cooperative, Confused HEENT: Atraumatic, PERRLA, EOMI, Normocephalic Neck: Supple, No JVD, Negative Carotid Bruits Lungs: Clear to auscultation, Normal air movement, Short of Breath, Tachypneic Cardiovascular: Regular rate, No murmurs Abdomen: Bowel Sounds Present, Soft, Obese, Tender, - - BL CVA tenderness Extremities: No edema, Capillary Refill Less than 3 Seconds Skin: No rashes, No breakdown Musculoskeletal: No Tenderness to Palpation of Joints or Extremities Neurological: Cranial nerves II-XII grossly intact Psych/Mental Status: Anxious Vital Signs Temp Pulse Resp BP Pulse Ox 99.0 F 94 28 H 130/55 H 99 03/01/19 14:37 03/01/19 14:37 03/01/19 14:37 03/01/19 14:37 03/01/19 14:37 Oxygen Flow Rate (L/min) 2 Oxygen Delivery Method Nasal Cannula Weight: 297 lb 2.93 oz Body Mass Index (BMI) 52.6 Finger Stick Blood Glucose 154 Laboratory Tests Past 24 Hrs 03/01/19 03/01/19 03/01/19 15:13 15:13 15:13 WBC 15.8 H RBC 4.20 Hgb 12.5 Hct 37.6 MCV 89.5 MCH 29.8 MCHC 33.2 RDW Std Deviation 43.3 RDW Coeff of Aniceto 13.2 Plt Count 135 L MPV 9.9 Immature Gran % (Auto) 0.700 Neut % (Auto) 84.5 H Lymph % (Auto) 6.8 L [place] % (Auto) 7.6 Eos % (Auto) 0.1 Baso % (Auto) 0.3 Absolute Neuts (auto) 13.3 H Absolute Lymphs (auto) 1.08 Nucleated RBC % 0 PT 15.2 H INR 1.2 Sodium 136 Potassium 3.3 L Chloride 100 Carbon Dioxide 27.0 Anion Gap 9 BUN 21 H Creatinine 1.20 H Estim Creat Clear Calc 35.05 Est GFR (MDRD) Af Amer 57 L Est GFR (MDRD) Non-Af 47 L BUN/Creatinine Ratio 17.5 Glucose 197 H Lactic Acid Calcium 8.7 Total Bilirubin 1.60 H AST 39 H ALT 42 Alkaline Phosphatase 83 Troponin I < 0.015 Total Protein 7.1 Albumin 2.9 L Globulin 4.2 Albumin/Globulin Ratio 0.7 L Lipase 51 L Urine Color Urine Clarity Urine pH Ur Specific [place] Urine Protein Urine Glucose (UA) Urine Ketones Urine Occult Blood Urine Nitrite Urine Bilirubin Urine Urobilinogen Ur Leukocyte Esterase Urine RBC Urine WBC Ur Squamous Epith Cells Urine Bacteria Urine Mucus 03/01/19 03/01/19 15:13 16:07 WBC RBC Hgb Hct MCV MCH MCHC RDW Std Deviation RDW Coeff of Aniceto Plt Count MPV Immature Gran % (Auto) Neut % (Auto) Lymph % (Auto) [place] % (Auto) Eos % (Auto) Baso % (Auto) Absolute Neuts (auto) Absolute Lymphs (auto) Nucleated RBC % PT INR Sodium Potassium Chloride Carbon Dioxide Anion Gap BUN Creatinine Estim Creat Clear Calc Est GFR (MDRD) Af Amer Est GFR (MDRD) Non-Af BUN/Creatinine Ratio Glucose Lactic Acid 1.5 Calcium Total Bilirubin AST ALT Alkaline Phosphatase Troponin I Total Protein Albumin Globulin Albumin/Globulin Ratio Lipase Urine Color SEE COMMENT BELOW Urine Clarity Sl. Cloudy Urine pH 5.0 Ur Specific [place] 1.015 Urine Protein 100 H Urine Glucose (UA) Normal Urine Ketones 5 H Urine Occult Blood 10 H Urine Nitrite Positive H Urine Bilirubin 3 H Urine Urobilinogen 12 H Ur Leukocyte Esterase 100 H Urine RBC 0-5 SEEN Urine WBC 5-10 SEEN Ur Squamous Epith Cells 0 SEEN Urine Bacteria 1+ Urine Mucus 1+ Assessment/Plan All Active Problems Complicated UTI (urinary tract infection) (Acute) Acute delirium (Acute) USAMA (acute kidney injury) (Acute) Hypokalemia (Acute) Sepsis (Acute) Acute metabolic encephalopathy (Acute) UTI (urinary tract infection) (Acute) Acute severe exacerbation of asthma (Acute) Staphylococcal pneumonia (Ruled-out) Streptococcal pneumonia (Ruled-out) Acute and chronic respiratory failure with hypoxia (Ruled-out) Cellulitis of right breast (Ruled-out) Influenza (Ruled-out) Acute asthma exacerbation (Acute) 1. Acute sepsis 2/2 UTI - + UA, + tachypnea, + leukocytosis, negative lactate evidence of organ dysfunction (low platelets, USAMA, elevated bili and AST). BP stable. Start ciprofloxacin. She received rocephin and benadryl in the ER, she has been on rocephin in the past. Concern for pyelo or stones. hx stones, + flank pain, + diffuse abdominal pain. Stat CT abdomen requested. Urine and blood cultures pending. 2. USAMA 2/2 sepsis - Cr significantly elevated above baseline. IV fluids, trend. Hold nephrotoxic agents. K+ repleted in ER. 3. Acute metabolic encephalopathy 2/2 sepsis - restless, cooperative. CT brain without acute process. 4. Chronic hypoxic respiratory failure, asthma - no exacerbation - prn aerosols. Incentive spirometer. No increased O2 demand. CXR negative. Continue budesonide 5. DMt2 with morbid obesity - SSI, dietary consult, continue U-500 home regimen 6. Hx BrCa in remission s/p mastectomy 7. DORY - bipap qhs 8. HTN - hold hctz, continue nadolol. 9. Anx/depression - paxil. It is unclear why she is is carbamazepine and ritalin. 10. RLS - mirapex DVT ppx: heparin DC planning: PTOT This patient was seen by Jm Garces PA-C under the supervision of Dr. Gold. <Lorenzo Gold - Last Filed: 03/01/19 19:30> History of Present Illness The patient is a 73 year old F with multiple comorbidities as mentioned above came to ER with altered mental status mainly confusion and disorientation. Prior to that she has burning micturition and pelvic pain for last 2 days and she got as phenazopyridine; Azo tablet [id number] yesterday. She is very lethargic. In ER, she was found to have high fever, 102.7, heart rate in 90s, leukocytosis with left shift but no tachypnea. She also felt nausea but no vomiting. She also complained of urgency, hematuria bilateral flank pain abdominal pain and diarrhea. Detailed history complete 12 ROS are unobtainable because of patient's altered mental status and mainly taken from her [id number] near the bedside. [] Past Medical History Allergies adhesive tape Allergy (Verified 04/09/18 00:24) Unknown listed on pcp allergy list cefadroxil [From Duricef] Allergy (Verified 04/09/18 00:24) Unknown gluten Allergy (Verified 03/01/19 17:14) Other Celiac disease mesalamine [From Asacol] Allergy (Verified 04/09/18 00:24) Unknown listed on pcp allergy list omalizumab [From Xolair] Allergy (Verified 04/09/18 00:24) Unknown listed on pcp allergy list Sulfa (Sulfonamide Antibiotics) Allergy (Verified 04/09/18 00:24) Unknown oxycodone Adverse Reaction (Verified 06/12/18 18:30) Vomiting Review of Systems Unable to obtain accurate/complete ROS d/t: AMS, Confusion - Physical Exam General: Confused, Disoriented, Lethargic HEENT: Atraumatic, PERRLA, EOMI, Normocephalic Oral: Dry Mucosa Neck: Supple, No JVD, Negative Carotid Bruits Lungs: No rhonchi, No wheeze, No rales, Diminished, Short of Breath, Tachypneic Cardiovascular: Regular rate, Regular Rhythm, Normal S1, Normal S2, No murmurs Abdomen: Bowel Sounds Present, Soft, Non-Distended, Obese, Tender - Suprapubic tenderness present. Mild bilateral renal angle tenderness., - Extremities: No edema, Capillary Refill Less than 3 Seconds Skin: No rashes, No breakdown Musculoskeletal: No Tenderness to Palpation of Joints or Extremities Neurological: Cranial nerves II-XII grossly intact, Deep Tendon Reflexes 2+/4 and Symmetrical, - - Detail neuro exam not possible because of altered mental status Vital Signs Temp Pulse Resp BP Pulse Ox 102.7 F H 93 18 148/54 H 98 03/01/19 17:36 03/01/19 17:36 03/01/19 17:36 03/01/19 17:36 03/01/19 17:36 Oxygen Flow Rate (L/min) 2 Oxygen Delivery Method Nasal Cannula Weight: 297 lb 2.93 oz Body Mass Index (BMI) 52.6 Finger Stick Blood Glucose 154 Intake and Output for Last 24 Hours 02/27/19 02/28/19 03/01/19 23:59 23:59 23:59 Intake Total 1050 / 1050 Balance 1050 / 1050 Laboratory Tests Past 24 Hrs 03/01/19 03/01/19 03/01/19 15:13 15:13 15:13 WBC 15.8 H RBC 4.20 Hgb 12.5 Hct 37.6 MCV 89.5 MCH 29.8 MCHC 33.2 RDW Std Deviation 43.3 RDW Coeff of Aniceto 13.2 Plt Count 135 L MPV 9.9 Immature Gran % (Auto) 0.700 Neut % (Auto) 84.5 H Lymph % (Auto) 6.8 L [place] % (Auto) 7.6 Eos % (Auto) 0.1 Baso % (Auto) 0.3 Absolute Neuts (auto) 13.3 H Absolute Lymphs (auto) 1.08 Nucleated RBC % 0 PT 15.2 H INR 1.2 Sodium 136 Potassium 3.3 L Chloride 100 Carbon Dioxide 27.0 Anion Gap 9 BUN 21 H Creatinine 1.20 H Estim Creat Clear Calc 35.05 Est GFR (MDRD) Af Amer 57 L Est GFR (MDRD) Non-Af 47 L BUN/Creatinine Ratio 17.5 Glucose 197 H Lactic Acid Calcium 8.7 Total Bilirubin 1.60 H AST 39 H ALT 42 Alkaline Phosphatase 83 Troponin I < 0.015 Total Protein 7.1 Albumin 2.9 L Globulin 4.2 Albumin/Globulin Ratio 0.7 L Lipase 51 L Urine Color Urine Clarity Urine pH Ur Specific [place] Urine Protein Urine Glucose (UA) Urine Ketones Urine Occult Blood Urine Nitrite Urine Bilirubin Urine Urobilinogen Ur Leukocyte Esterase Urine RBC Urine WBC Ur Squamous Epith Cells Urine Bacteria Urine Mucus 03/01/19 03/01/19 15:13 16:07 WBC RBC Hgb Hct MCV MCH MCHC RDW Std Deviation RDW Coeff of Aniceto Plt Count MPV Immature Gran % (Auto) Neut % (Auto) Lymph % (Auto) [place] % (Auto) Eos % (Auto) Baso % (Auto) Absolute Neuts (auto) Absolute Lymphs (auto) Nucleated RBC % PT INR Sodium Potassium Chloride Carbon Dioxide Anion Gap BUN Creatinine Estim Creat Clear Calc Est GFR (MDRD) Af Amer Est GFR (MDRD) Non-Af BUN/Creatinine Ratio Glucose Lactic Acid 1.5 Calcium Total Bilirubin AST ALT Alkaline Phosphatase Troponin I Total Protein Albumin Globulin Albumin/Globulin Ratio Lipase Urine Color SEE COMMENT BELOW Urine Clarity Sl. Cloudy Urine pH 5.0 Ur Specific [place] 1.015 Urine Protein 100 H Urine Glucose (UA) Normal Urine Ketones 5 H Urine Occult Blood 10 H Urine Nitrite Positive H Urine Bilirubin 3 H Urine Urobilinogen 12 H Ur Leukocyte Esterase 100 H Urine RBC 0-5 SEEN Urine WBC 5-10 SEEN Ur Squamous Epith Cells 0 SEEN Urine Bacteria 1+ Urine Mucus 1+ Assessment/Plan This patient was seen in conjunction with Jm MAI. I have independently interviewed and examined the patient and reviewed pertinent history, examination findings, laboratory and plan of management. I have reviewed the note and agree with the documented findings with the few additional points. In brief, patient is admitted for dysuria, increased frequency urgency and systemic signs of fever and leukocytosis. Her qSOFA score is 1 out of 3 secondary to altered mental status. Lactic acid normal. Her clinical assessment is consistent with systemic signs secondary to UTI. Started on broad-spectrum antibiotic IV ceftriaxone. She does not have true allergy with cefadroxil, confirmed with pharmacy. She has history of kidney stones in the past. CT abdomen was done. No evidence of found acute inflammatory process or free intra-abdominal or intrapelvic air or fluid and bilateral kidneys reported normal. She also has elevated total bilirubin 1.6, AST 39, and acute kidney injury mostly secondary to UTI. Baseline creatinine 0.8, this time BUN/creatinine 21/1.2. Mild hypokalemia K3.3; getting replaced. Acute encephalopathy most probably secondary to UTI/sepsis and metabolic encephalopathy. Other comorbidities as mentioned above I have discussed my assessment with Jm MAI and orders have been reviewed. Clinical Impression(s) from Imaging Studies Brain CT 03/01/19 14:57 IMPRESSION: Chronic involutional changes of the brain. Sinusitis. Chest X-Ray 03/01/19 15:00 IMPRESSION: No acute abnormality is seen. Abdomen/Pelvis CT 03/01/19 17:21 IMPRESSION: 1. Small hiatal hernia. 2. Small fat-containing umbilical hernia. 3. Status post hysterectomy. 4. Diffuse degenerative changes of the visualized thoracolumbar spine. 5. There is no evidence of free intra-abdominal or intrapelvic air, fluid, or inflammatory process. Code Visit Inpatient E&M: [id number] Init Hosp L3
[2019-03-01] MEDS: DiphenhydrAMINE 50 MG/ML Syringe IV (17:24)
--- NOTE | 2019-03-01 17:52 | CASEMGMT ---
RN CM Assessment Introduced role of RN CM to patient Dtr in law Lalit as patient was taken to a procedure. This personal lines underwriter offered to come back when patient returns but per Dtr in law is close and involved with the patient and knows assessment information. Information at this time obtained from dtr in law, states that patient confusion is d/t not feeling well and HPOA-patient Dtr Santa lives in [place]. ?Informant- Dtr in law and her Hadley (Patient son) live in [place]. Care providers, pharmacy, and demographics verified. Presentation: Per Dtr in law-patient baseline mentation is normally oriented x4, however yesterday seemed like she was confused, states that patient had made an appointment to see her Dr for UTI symptoms-pain and was taking AZO, thought patient was going to take her to a local urgent care in [place] [place] but ended up not taking her. CC: Increased Confusion, Vomiting, Diarrhea and has fallen twice over the past 2 days. Admit Dx: Sepsis, UTI, Metabolic encephalopathy Re-Admit: No Barriers/Issues: None, per Dtr in law, patient has a good support system with family that could help with her care needs. PCP: Senait Jay Specialists: Reymundo- Dr Watters Preferred Pharmacy: [facility] Insurance: [employer] [facility] Rx Benefit:?Yes LNOK: Travis Garcia LW/HPOA: Yes both on file with [facility]. HPOA-dtr [place] Living Arrangements:? Lives with her in a 2 story home, Bedroom on upper level with approx 10-12 stairs up. Approx 5 steps to enter home. ADL?s: Independent with ambulation, does use a walker for further distances. Independent with ADLs Transportation: Both patient and drive, only drives in town. Denies any transportation issues. DME: Home O2 2LNC prn- Not sure of DME company, Bipap, Neb, Walker, Shower Chair, Glucometer HHC: None SNF: None Goal: Home, Does not think will have any needs, however made aware CM will continue to follow for any emerging needs. States has a good support that can help care for her. Denies any issues, concerns, or questions with DC planning at this time. Will let patient know that this CM stopped by and if patient has any questions to notify nurse so that CM can come s/w her. DC PLAN: Home, possible HH PT/OT d/t falls. Lenore Leavitt RNCM
[2019-03-01] MEDS: Ceftriaxone 1 GM/50 ML BAG IV (18:06)
[2019-03-01] MEDS: 0.9% Normal Saline 1,000 ML 150 ML IV (19:37)
--- NOTE | 2019-03-01 21:27 | CPS ---
PATIENT INFORMED RT THAT SHE WEARS BIPAP AT HOME IPAP 12, EPAP 6 RR 12.
[2019-03-01] MEDS: Pramipexole Di-HCl 0.5 MG Tablet PO (22:18)
[2019-03-01] MEDS: carBAMazepine 200 MG Tablet PO (22:18)
[2019-03-01] MEDS: Nadolol 40 MG Tablet PO (22:18)
[2019-03-01] MEDS: Loratadine 10 MG Tablet 5 MG PO (22:18)
[2019-03-01] MEDS: Heparin Injection (Vial) 5,000 UNIT/ML VIAL 5000 UNIT SC (22:18)
[2019-03-01 22:30] LABS: Bedside Glucose 163 mg/dL (70-110)
[2019-03-01] MEDS: Insulin Lispro 100 UNIT/ML INSULN.PEN SC (22:48)
[2019-03-02] VITALS (12 sets, daily range): BP systolic 122–149; BP diastolic 60–72; PULSE 69–94; RESP 12–22; TEMP 36.9–37.9; O2SAT 96–97
[2019-03-02] MEDS: 0.9% Normal Saline 1,000 ML 150 ML IV (01:28)
--- NOTE | 2019-03-02 03:28 | CPS ---
PATIENT REFUSED BIPAP. PATIENT ON 3LPM NC WITH A SP02 OF 92%
[2019-03-02] MEDS: Menthol/Lanolin/Calamine/Znox 113 GM Tube 1 APPLIC TOPICAL ×3 (06:32→22:28)
[2019-03-02] MEDS: Nystatin Powder 15gm Bottle 1 APPLIC TOPICAL ×3 (06:33→22:48)
[2019-03-02] MEDS: Heparin Injection (Vial) 5,000 UNIT/ML VIAL 5000 UNIT SC ×3 (06:35→22:40)
[2019-03-02 06:44] LABS: Absolute Lymphocyte Count 1.33 X10^3/uL (0.83-4.51); Absolute Neutrophil Count 10.1 X10^3/uL (2.0-7.7); Basophil# 0.04 X10^3/uL; Basophil% 0.3 % (0-1); Eosinophil# 0.05 X10^3/uL; Eosinophils% 0.4 % (0-5); Hematocrit 35.4 % (37-47); Hemoglobin 11.5 g/dL (12.0-15.0); Lymphocyte # 1.33 X10^3/ul (4.0); Lymphocyte % 10.6 % (19-41); Mean Corp Hgb Conc 32.5 g/dL (32-36); Mean Corpuscular Hgb 29.5 pg (27.0-32.0); Mean Corpuscular Volume 90.8 fL (81-99); Mean Platelet Vol. 10.1 fl (6.2-12.0); Monocyte# 0.95 X10^3/uL; Monocyte% 7.6 % (0-10); NRBC Flagged by Analyzer 0 % (0-5); Neutrophil # 10.06 X10^3/uL (2.7-7.7); Neutrophil % 80.5 % (47-70); Platelet Count 114 K/mm3 (150-450); RBC Distribution Width CV 13.6 % (11.6-14.6); RBC Distribution Width SD 45.1 fl (35.1-43.9); White Blood Count 12.5 K/mm3 (4.4-11.0)
[2019-03-02 07:01] LABS: Bedside Glucose 134 mg/dL (70-110)
[2019-03-02 07:04] LABS: Anion Gap 8 (5-15); BUN 18 mg/dL (7-18); Calcium,Total 7.9 mg/dL (8.5-10.1); Chloride 108 mmol/L (98-107); EST Glomerular Filtration Rate 65 mL/min (>60); Est Glom Filt Rate - Afr Amer 79 mL/min (>60); Estimated Creatinine Clearance 46.74 ml/min; Glucose 145 mg/dL (74-106); Potassium 3.5 mmol/L (3.5-5.1); Sodium Level 142 mmol/L (136-145)
[2019-03-02] MEDS: Calcium (Elemental) 500 MG Tablet PO ×2 (08:39→18:12)
[2019-03-02] MEDS: Paroxetine 20 MG Tablet 40 MG PO (10:42)
[2019-03-02] MEDS: carBAMazepine 200 MG Tablet PO ×2 (10:42→22:47)
[2019-03-02] MEDS: 0.9% NaCl IVPB Med Flush (250 mL) 15 ML IV (10:42)
[2019-03-02] MEDS: Glucerna Shake 120 ML LIQUID PO ×2 (10:42→22:29)
[2019-03-02] MEDS: Nadolol 40 MG Tablet PO ×2 (10:42→22:37)
[2019-03-02] MEDS: Fluticasone 0.05% 1 SPRAY NASAL.SRY 2 SPRAY NASAL (10:43)
[2019-03-02] MEDS: 0.9% NaCl Peripheral Flush Adult/Peds IV ×3 (10:56→22:44)
[2019-03-02 12:20] LABS: Bedside Glucose 101 mg/dL (70-110)
--- NOTE | 2019-03-02 14:29 | PN_ITS ---
Patient Problems: Active and Suspected Problems Complicated UTI (urinary tract infection) (Acute) Acute delirium (Acute) USAMA (acute kidney injury) (Acute) Hypokalemia (Acute) Sepsis (Acute) Acute metabolic encephalopathy (Acute) UTI (urinary tract infection) (Acute) Subjective: Patient seen and examined. Drowsy. Continues to have intermittent fever. Denies abdominal pain, flank pain or urinary symptoms. Denies nausea, vomiting. - Physical Exam General: - - Drowsy, alert and oriented, no apparent distress HEENT: Atraumatic, PERRLA, EOMI, Normocephalic Oral: Dry Mucosa Neck: Supple, No JVD, Negative Carotid Bruits Lungs: Clear to auscultation, Diminished Cardiovascular: Regular rate, Regular Rhythm, Normal S1, Normal S2, No murmurs Abdomen: Bowel Sounds Present, Soft, Non Tender, Non-Distended, Obese Extremities: No clubbing, No cyanosis, No edema, Capillary Refill Less than 3 Seconds Skin: No rashes, No breakdown Musculoskeletal: No Tenderness to Palpation of Joints or Extremities Neurological: Cranial nerves II-XII grossly intact, Neuro grossly intact Psych/Mental Status: Normal Affect, Appropriate Vital Signs Temp Pulse Resp BP Pulse Ox 98.6 F 76 18 149/60 H 96 03/02/19 08:27 03/02/19 08:40 03/02/19 08:27 03/02/19 08:27 03/02/19 08:27 Oxygen Flow Rate (L/min) 2 Oxygen Delivery Method Nasal Cannula Weight: 298 lb 1.039 oz Body Mass Index (BMI) 52.7 Finger Stick Blood Glucose 154 Intake and Output for Last 24 Hours 02/28/19 03/01/19 03/02/19 23:59 23:59 23:59 Intake Total 1050 / 1050 2062.58 / 2062.58 Output Total 200 / 200 Balance 1050 / 1050 1862.58 / 1862.58 Laboratory Tests Past 24 Hrs 03/01/19 03/01/19 03/01/19 15:13 15:13 15:13 WBC 15.8 H RBC 4.20 Hgb 12.5 Hct 37.6 MCV 89.5 MCH 29.8 MCHC 33.2 RDW Std Deviation 43.3 RDW Coeff of Aniceto 13.2 Plt Count 135 L MPV 9.9 Immature Gran % (Auto) 0.700 Neut % (Auto) 84.5 H Lymph % (Auto) 6.8 L Hyde % (Auto) 7.6 Eos % (Auto) 0.1 Baso % (Auto) 0.3 Absolute Neuts (auto) 13.3 H Absolute Lymphs (auto) 1.08 Nucleated RBC % 0 PT 15.2 H INR 1.2 Sodium 136 Potassium 3.3 L Chloride 100 Carbon Dioxide 27.0 Anion Gap 9 BUN 21 H Creatinine 1.20 H Estim Creat Clear Calc 35.05 Est GFR (MDRD) Af Amer 57 L Est GFR (MDRD) Non-Af 47 L BUN/Creatinine Ratio 17.5 Glucose 197 H Lactic Acid Calcium 8.7 Total Bilirubin 1.60 H AST 39 H ALT 42 Alkaline Phosphatase 83 Troponin I < 0.015 Total Protein 7.1 Albumin 2.9 L Globulin 4.2 Albumin/Globulin Ratio 0.7 L Lipase 51 L Urine Color Urine Clarity Urine pH Ur Specific [place] Urine Protein Urine Glucose (UA) Urine Ketones Urine Occult Blood Urine Nitrite Urine Bilirubin Urine Urobilinogen Ur Leukocyte Esterase Urine RBC Urine WBC Ur Squamous Epith Cells Urine Bacteria Urine Mucus 03/01/19 03/01/19 03/02/19 15:13 16:07 06:15 WBC 12.5 H RBC 3.90 L Hgb 11.5 L Hct 35.4 L MCV 90.8 MCH 29.5 MCHC 32.5 RDW Std Deviation 45.1 H RDW Coeff of Aniceto 13.6 Plt Count 114 L MPV 10.1 Immature Gran % (Auto) 0.600 Neut % (Auto) 80.5 H Lymph % (Auto) 10.6 L Hyde % (Auto) 7.6 Eos % (Auto) 0.4 Baso % (Auto) 0.3 Absolute Neuts (auto) 10.1 H Absolute Lymphs (auto) 1.33 Nucleated RBC % 0 PT INR Sodium Potassium Chloride Carbon Dioxide Anion Gap BUN Creatinine Estim Creat Clear Calc Est GFR (MDRD) Af Amer Est GFR (MDRD) Non-Af BUN/Creatinine Ratio Glucose Lactic Acid 1.5 Calcium Total Bilirubin AST ALT Alkaline Phosphatase Troponin I Total Protein Albumin Globulin Albumin/Globulin Ratio Lipase Urine Color SEE COMMENT BELOW Urine Clarity Sl. Cloudy Urine pH 5.0 Ur Specific [place] 1.015 Urine Protein 100 H Urine Glucose (UA) Normal Urine Ketones 5 H Urine Occult Blood 10 H Urine Nitrite Positive H Urine Bilirubin 3 H Urine Urobilinogen 12 H Ur Leukocyte Esterase 100 H Urine RBC 0-5 SEEN Urine WBC 5-10 SEEN Ur Squamous Epith Cells 0 SEEN Urine Bacteria 1+ Urine Mucus 1+ 03/02/19 06:15 WBC RBC Hgb Hct MCV MCH MCHC RDW Std Deviation RDW Coeff of Aniceto Plt Count MPV Immature Gran % (Auto) Neut % (Auto) Lymph % (Auto) Hyde % (Auto) Eos % (Auto) Baso % (Auto) Absolute Neuts (auto) Absolute Lymphs (auto) Nucleated RBC % PT INR Sodium 142 Potassium 3.5 Chloride 108 H Carbon Dioxide 26.0 Anion Gap 8 BUN 18 Creatinine 0.90 Estim Creat Clear Calc 46.74 Est GFR (MDRD) Af Amer 79 Est GFR (MDRD) Non-Af 65 BUN/Creatinine Ratio 20.0 Glucose 145 H Lactic Acid Calcium 7.9 L Total Bilirubin AST ALT Alkaline Phosphatase Troponin I Total Protein Albumin Globulin Albumin/Globulin Ratio Lipase Urine Color Urine Clarity Urine pH Ur Specific [place] Urine Protein Urine Glucose (UA) Urine Ketones Urine Occult Blood Urine Nitrite Urine Bilirubin Urine Urobilinogen Ur Leukocyte Esterase Urine RBC Urine WBC Ur Squamous Epith Cells Urine Bacteria Urine Mucus POC Glucose 03/02/19 03/02/19 03/01/19 12:10 06:42 22:22 POC Glucose 101 134 H 163 H Medical Necessity - Tobacco Use Smoking Status: Former smoker Tobacco Use: Non-smoker Assessment/Plan All Active Problems Complicated UTI (urinary tract infection) (Acute) Acute delirium (Acute) USAMA (acute kidney injury) (Acute) Hypokalemia (Acute) Sepsis (Acute) Acute metabolic encephalopathy (Acute) UTI (urinary tract infection) (Acute) Acute severe exacerbation of asthma (Acute) Staphylococcal pneumonia (Ruled-out) Streptococcal pneumonia (Ruled-out) Acute and chronic respiratory failure with hypoxia (Ruled-out) Cellulitis of right breast (Ruled-out) Influenza (Ruled-out) Acute asthma exacerbation (Acute) 1. Acute sepsis secondary to acute UTI-history of frequent UTIs. CT of abdomen and pelvis shows no evidence of intrapelvic air, fluid or inflammatory process. Fever and leukocytosis improving. Continue IV Rocephin. Follow urine and blood cultures. 2. Acute kidney injury secondary to #1-resolved. 3. Acute metabolic encephalopathy, secondary to #1-brain CT with chronic changes. Improved. Alert and oriented, drowsy. 4. Chronic hypoxic respiratory failure secondary to chronic asthma-no acute exacerbation. As needed albuterol aerosol. Chest x-ray on admission unremarkable. Continue supplement oxygen to maintain O2 at or above 90%. 5. Type 2 diabetes mellitus-continue home U-500 regimen. Accu-Cheks ACHS with sliding scale insulin. 6. DORY-continue BiPAP nightly 7. Hypertension-continue nadolol regimen. HCTZ on hold secondary to acute kidney injury. 8. Morbid obesity-encouraged diet and lifestyle modifications. Nutrition consult. 9. History of breast cancer status post mastectomy, in remission 10. Anxiety/depression-continue Paxil regimen. Also on carbamazepine and Ritalin? 11. Restless leg syndrome-continue Mirapex regimen. DVT prophylaxis-heparin subcu This patient was seen by HIRAL Alarcon under the supervision of Dr. Miramontes.
[2019-03-02] MEDS: Ondansetron 4 MG/2 ML Vial IV ×2 (14:34→22:43)
[2019-03-02 16:50] LABS: Bedside Glucose 70 mg/dL (70-110)
[2019-03-02] MEDS: Loratadine 10 MG Tablet 5 MG PO (22:37)
[2019-03-02] MEDS: Pramipexole Di-HCl 0.5 MG Tablet PO (22:37)
[2019-03-02 23:26] LABS: Bedside Glucose 80 mg/dL (70-110)
[2019-03-03] VITALS (15 sets, daily range): BP systolic 119–163; BP diastolic 44–79; PULSE 61–68; RESP 12–20; TEMP 36–37.2; O2SAT 95–100
[2019-03-03] MEDS: Heparin Injection (Vial) 5,000 UNIT/ML VIAL 5000 UNIT SC ×3 (05:10→21:56)
[2019-03-03 06:10] LABS: Absolute Lymphocyte Count 1.56 X10^3/uL (0.83-4.51); Absolute Neutrophil Count 8.4 X10^3/uL (2.0-7.7); Basophil# 0.04 X10^3/uL; Basophil% 0.3 % (0-1); Eosinophil# 0.23 X10^3/uL; Hematocrit 37.7 % (37-47); Hemoglobin 12.6 g/dL (12.0-15.0); Lymphocyte # 1.56 X10^3/ul (4.0); Lymphocyte % 13.6 % (19-41); Mean Corp Hgb Conc 33.4 g/dL (32-36); Mean Corpuscular Hgb 30.3 pg (27.0-32.0); Mean Corpuscular Volume 90.6 fL (81-99); Mean Platelet Vol. 11.6 fl (6.2-12.0); Monocyte# 1.15 X10^3/uL; Monocyte% 10.1 % (0-10); NRBC Flagged by Analyzer 0 % (0-5); Neutrophil # 8.42 X10^3/uL (2.7-7.7); Neutrophil % 73.7 % (47-70); POSITIVE COUNT YES; RBC Distribution Width CV 13.5 % (11.6-14.6); RBC Distribution Width SD 44.9 fl (35.1-43.9); Red Blood Count 4.16 M/mm3 (4.2-5.4); White Blood Count 11.4 K/mm3 (4.4-11.0)
[2019-03-03 06:15] LABS: Differential Indicated SCAN CRITERIA MET
[2019-03-03 06:24] LABS: ALB/GLOB Ratio 0.4 RATIO (0.9-2.4); AST(SGOT) 54 U/L (15-37); Alanine Aminotransfer ALT/SGPT 22 U/L (13-56); Albumin, Serum 1.9 g/dL (3.2-5.0); Alkaline Phosphatase 123 U/L (45-117); Anion Gap 7 (5-15); BUN 25 mg/dL (7-18); BUN/Creat Ratio 9.6 RATIO (10-20); Calcium,Total 8.3 mg/dL (8.5-10.1); Chloride 101 mmol/L (98-107); Creatinine, Serum 2.61 mg/dL (0.55-1.02); EST Glomerular Filtration Rate 19 mL/min (>60); Est Glom Filt Rate - Afr Amer 23 mL/min (>60); Estimated Creatinine Clearance 16.12 ml/min; Globulin 4.6 g/dL (2.2-4.2); Glucose 117 mg/dL (74-106); Protein, Total 6.5 g/dL (6.4-8.2); Sodium Level 130 mmol/L (136-145)
[2019-03-03 06:45] LABS: Bedside Glucose 119 mg/dL (70-110)
[2019-03-03 06:50] LABS: Differential Comment SCANNED; Platelet Estimate ADEQUATE (ADEQ); Platelet Morphology CLUMPED
[2019-03-03] MEDS: Nadolol 40 MG Tablet PO ×2 (08:12→21:56)
[2019-03-03] MEDS: Calcium (Elemental) 500 MG Tablet PO ×2 (08:12→16:08)
[2019-03-03] MEDS: Fluticasone 0.05% 1 SPRAY NASAL.SRY 2 SPRAY NASAL (08:12)
[2019-03-03] MEDS: Nystatin Powder 15gm Bottle 1 APPLIC TOPICAL ×2 (08:14→21:57)
[2019-03-03] MEDS: Paroxetine 20 MG Tablet 40 MG PO (08:14)
[2019-03-03] MEDS: carBAMazepine 200 MG Tablet PO ×2 (08:14→21:56)
[2019-03-03] MEDS: Menthol/Lanolin/Calamine/Znox 113 GM Tube 1 APPLIC TOPICAL ×2 (08:15→21:56)
[2019-03-03] MEDS: Glucerna Shake 120 ML LIQUID PO (08:18)
[2019-03-03] MEDS: 0.9% Normal Saline 1,000 ML 125 ML IV ×2 (08:23→21:48)
[2019-03-03] MEDS: Insulin Lispro 100 UNIT/ML INSULN.PEN SC (11:35)
[2019-03-03 12:16] LABS: Bedside Glucose 154 mg/dL (70-110)
[2019-03-03] MEDS: Ondansetron 4 MG/2 ML Vial IV ×2 (15:19→21:42)
[2019-03-03 16:30] LABS: Bedside Glucose 148 mg/dL (70-110)
--- NOTE | 2019-03-03 18:38 | PCM.PROGNOTE ---
Patient Problems: Active and Suspected Problems Complicated UTI (urinary tract infection) (Acute) Acute delirium (Acute) USAMA (acute kidney injury) (Acute) Hypokalemia (Acute) Sepsis (Acute) Acute metabolic encephalopathy (Acute) UTI (urinary tract infection) (Acute) Subjective: Patient was seen and examined today, patient's creatinine was elevated at 2.61 this morning, I feel this is probably secondary to dehydration and resultant acute kidney injury, I have started the patient on fluids today. Patient denies any fever or chills. Urine culture grew out less than thousand colonies of a gram-negative analisa. - Physical Exam General: Alert, Oriented x3, Cooperative, No apparent distress, Well developed, Well nourished HEENT: Atraumatic, PERRLA, EOMI, Normocephalic Oral: Moist Mucosa Neck: Supple, Trachea Midline, Thyroid Normal Size and Texture Lungs: Clear to auscultation, Normal air movement, No rhonchi, No wheeze, No rales Cardiovascular: Regular rate, Regular Rhythm, Normal S1, Normal S2, No murmurs, PMI Normal, No rub noted Abdomen: Bowel Sounds Present, Soft, Non Tender, Non-Distended, Obese Extremities: No clubbing, No cyanosis, No edema, Capillary Refill Less than 3 Seconds Skin: No rashes, No breakdown Musculoskeletal: No Tenderness to Palpation of Joints or Extremities Neurological: Cranial nerves II-XII grossly intact, Neuro grossly intact, Sensory exam intact to light touch and pain Psych/Mental Status: Normal Affect, Appropriate, Alert and oriented to time, place, person, mood and affect Vital Signs Temp Pulse Resp BP Pulse Ox 98.2 F 64 18 120/52 L 96 03/03/19 13:55 03/03/19 14:24 03/03/19 13:55 03/03/19 13:55 03/03/19 15:24 Oxygen Flow Rate (L/min) 2 Oxygen Delivery Method Nasal Cannula Weight: 135.2 kg Body Mass Index (BMI) 52.7 Finger Stick Blood Glucose 154 Intake and Output for Last 24 Hours 03/01/19 03/02/19 03/03/19 23:59 23:59 23:59 Intake Total 1050 / 1050 2632.58 / 2632.58 627.08 / 627.08 Output Total 700 / 700 400 / 400 Balance 1050 / 1050 1932.58 / 1932.58 227.08 / 227.08 Microbiology Past 72 Hours 03/01/19 16:07 Urine Culture - Preliminary Urine, Catheterized Gram negative analisa 03/01/19 15:13 Blood Culture - Preliminary Blood Culture (Wb) - Other No growth in 48 hours. Laboratory Tests Past 24 Hrs 03/03/19 03/03/19 05:20 05:20 WBC 11.4 H RBC 4.16 L Hgb 12.6 Hct 37.7 MCV 90.6 MCH 30.3 MCHC 33.4 RDW Std Deviation 44.9 H RDW Coeff of Aniceto 13.5 Plt Count TNP MPV 11.6 Immature Gran % (Auto) 0.300 Neut % (Auto) 73.7 H Lymph % (Auto) 13.6 L [place] % (Auto) 10.1 H Eos % (Auto) 2.0 Baso % (Auto) 0.3 Absolute Neuts (auto) 8.4 H Absolute Lymphs (auto) 1.56 Nucleated RBC % 0 Differential Comment SCANNED Platelet Estimate ADEQUATE Plt Morphology Comment CLUMPED Sodium 130 L Potassium 5.0 Chloride 101 Carbon Dioxide 22.0 Anion Gap 7 BUN 25 H Creatinine 2.61 H Estim Creat Clear Calc 16.12 Est GFR (MDRD) Af Amer 23 L Est GFR (MDRD) Non-Af 19 L BUN/Creatinine Ratio 9.6 L Glucose 117 H Calcium 8.3 L Total Bilirubin 0.80 AST 54 H ALT 22 Alkaline Phosphatase 123 H Total Protein 6.5 Albumin 1.9 L Globulin 4.6 H Albumin/Globulin Ratio 0.4 L POC Glucose 03/03/19 03/03/19 03/03/19 16:06 11:33 06:31 POC Glucose 148 H 154 H 119 H 03/02/19 22:34 POC Glucose 80 Medical Necessity - Tobacco Use Smoking Status: Former smoker Tobacco Use: Non-smoker Assessment/Plan All Active Problems Complicated UTI (urinary tract infection) (Acute) Acute delirium (Acute) USAMA (acute kidney injury) (Acute) Hypokalemia (Acute) Sepsis (Acute) Acute metabolic encephalopathy (Acute) UTI (urinary tract infection) (Acute) Acute severe exacerbation of asthma (Resolved) Staphylococcal pneumonia (Ruled-out) Streptococcal pneumonia (Ruled-out) Acute and chronic respiratory failure with hypoxia (Ruled-out) Cellulitis of right breast (Ruled-out) Influenza (Ruled-out) Acute asthma exacerbation (Resolved) #1 acute sepsis secondary to acute cystitis from gram-negative bacteria-continue present treatment #2 acute kidney injury secondary to acute sepsis-continue IV fluids, recheck labs tomorrow #3 chronic hypoxic respiratory failure-continue supplemental oxygen #4 acute metabolic encephalopathy-resolved at this time, secondary to sepsis #5 obstructive sleep apnea #6 essential hypertension #7 acute cystitis secondary to gram-negative bacteria-continue present treatment #8 morbid obesity Code Visit Inpatient E&M: 11773 Subs Hosp L2
[2019-03-03] MEDS: Pramipexole Di-HCl 0.5 MG Tablet PO (21:56)
[2019-03-03] MEDS: Loratadine 10 MG Tablet 5 MG PO (21:56)
[2019-03-03 22:21] LABS: Bedside Glucose 128 mg/dL (70-110)
[2019-03-04] VITALS (13 sets, daily range): BP systolic 115–136; BP diastolic 44–65; PULSE 56–63; RESP 12–20; TEMP 36.4–37.1; O2SAT 98–100
[2019-03-04 05:31] LABS: Absolute Lymphocyte Count 1.32 X10^3/uL (0.83-4.51); Absolute Neutrophil Count 5.9 X10^3/uL (2.0-7.7); Basophil# 0.04 X10^3/uL; Basophil% 0.5 % (0-1); Eosinophil# 0.25 X10^3/uL; Hematocrit 34.2 % (37-47); Lymphocyte # 1.32 X10^3/ul (4.0); Lymphocyte % 15.8 % (19-41); Mean Corp Hgb Conc 32.2 g/dL (32-36); Mean Corpuscular Hgb 29.1 pg (27.0-32.0); Mean Corpuscular Volume 90.5 fL (81-99); Mean Platelet Vol. 10.6 fl (6.2-12.0); Monocyte# 0.82 X10^3/uL; Monocyte% 9.8 % (0-10); NRBC Flagged by Analyzer 0 % (0-5); Neutrophil # 5.87 X10^3/uL (2.7-7.7); Neutrophil % 70.5 % (47-70); Platelet Count 148 K/mm3 (150-450); RBC Distribution Width CV 13.2 % (11.6-14.6); RBC Distribution Width SD 43.9 fl (35.1-43.9); Red Blood Count 3.78 M/mm3 (4.2-5.4); White Blood Count 8.3 K/mm3 (4.4-11.0)
[2019-03-04 05:45] LABS: Anion Gap 7 (5-15); BUN 17 mg/dL (7-18); BUN/Creat Ratio 24.3 RATIO (10-20); Calcium,Total 8.4 mg/dL (8.5-10.1); Chloride 105 mmol/L (98-107); EST Glomerular Filtration Rate 87 mL/min (>60); Est Glom Filt Rate - Afr Amer 106 mL/min (>60); Estimated Creatinine Clearance 42.07 ml/min; Glucose 129 mg/dL (74-106); Potassium 3.7 mmol/L (3.5-5.1); Sodium Level 141 mmol/L (136-145)
[2019-03-04] MEDS: 0.9% NaCl Peripheral Flush Adult/Peds IV (05:59)
[2019-03-04] MEDS: Heparin Injection (Vial) 5,000 UNIT/ML VIAL 5000 UNIT SC ×3 (05:59→21:25)
[2019-03-04] MEDS: 0.9% Normal Saline 1,000 ML 125 ML IV ×2 (05:59→13:17)
[2019-03-04 07:10] LABS: Bedside Glucose 124 mg/dL (70-110)
[2019-03-04] MEDS: Calcium (Elemental) 500 MG Tablet PO ×2 (08:13→16:48)
[2019-03-04] MEDS: Fluticasone 0.05% 1 SPRAY NASAL.SRY 2 SPRAY NASAL (09:23)
[2019-03-04] MEDS: Paroxetine 20 MG Tablet 40 MG PO (09:23)
[2019-03-04] MEDS: Menthol/Lanolin/Calamine/Znox 113 GM Tube 1 APPLIC TOPICAL ×2 (09:23→21:25)
[2019-03-04] MEDS: Nadolol 40 MG Tablet PO ×2 (09:23→21:25)
[2019-03-04] MEDS: carBAMazepine 200 MG Tablet PO ×2 (09:23→21:25)
[2019-03-04] MEDS: Nystatin Powder 15gm Bottle 1 APPLIC TOPICAL ×2 (09:25→21:28)
[2019-03-04] MEDS: Insulin Lispro 100 UNIT/ML INSULN.PEN SC (10:55)
[2019-03-04 11:11] LABS: Bedside Glucose 166 mg/dL (70-110)
[2019-03-04] MEDS: Glucerna Shake 120 ML LIQUID PO ×2 (13:15→16:48)
[2019-03-04 17:26] LABS: Bedside Glucose 131 mg/dL (70-110)
--- NOTE | 2019-03-04 18:35 | PCM.PROGNOTE ---
Patient Problems: Active and Suspected Problems Complicated UTI (urinary tract infection) (Acute) Acute delirium (Acute) USAMA (acute kidney injury) (Acute) Hypokalemia (Acute) Sepsis (Acute) Acute metabolic encephalopathy (Acute) UTI (urinary tract infection) (Acute) Subjective: Patient was seen and examined today, she complained of some diarrhea today, her kidney functions are totally normal today and I am possible that this. I have stopped her IV fluids, tomorrow morning I will place her on oral antibiotics. She had low numbers of Proteus mirabilis in the urine that was susceptible to many antibiotics. I will place her on Keflex starting tomorrow morning. Patient's blood sugars have been under adequate control despite the fact that she is no longer taking any U5 100 insulin. - Physical Exam General: Alert, Oriented x3, Cooperative, No apparent distress, Well developed HEENT: Atraumatic, PERRLA, EOMI, Normocephalic Oral: Moist Mucosa Neck: Supple, Trachea Midline, Thyroid Normal Size and Texture Lungs: Clear to auscultation, Normal air movement, No rhonchi, No wheeze Cardiovascular: Regular rate, Regular Rhythm, Normal S1, Normal S2, No murmurs Abdomen: Bowel Sounds Present, Soft, Non Tender, Obese Extremities: No clubbing, No cyanosis, No edema, Capillary Refill Less than 3 Seconds Skin: No rashes, No breakdown Musculoskeletal: No Tenderness to Palpation of Joints or Extremities Neurological: Cranial nerves II-XII grossly intact, Neuro grossly intact, Sensory exam intact to light touch and pain Psych/Mental Status: Normal Affect, Appropriate, Alert and oriented to time, place, person, mood and affect Vital Signs Temp Pulse Resp BP Pulse Ox 98.3 F 58 L 16 118/46 L 99 03/04/19 15:16 03/04/19 15:16 03/04/19 15:16 03/04/19 15:16 03/04/19 15:16 Oxygen Flow Rate (L/min) 2 Oxygen Delivery Method Nasal Cannula Weight: 135.2 kg Body Mass Index (BMI) 52.7 Finger Stick Blood Glucose 154 Intake and Output for Last 24 Hours 03/02/19 03/03/19 03/04/19 23:59 23:59 23:59 Intake Total 2632.58 / 2632.58 1745.00 / 1745.00 3114.58 / 3114.58 Output Total 700 / 700 750 / 750 Balance 1932.58 / 1932.58 995.00 / 995.00 3114.58 / 3114.58 Microbiology Past 72 Hours 03/01/19 16:07 Blood Culture - Preliminary Blood Culture (Wb) - Right Hand No growth in 48 hours. 03/01/19 16:07 Urine Culture - Final Urine, Catheterized Proteus mirabilis 03/01/19 15:13 Blood Culture - Preliminary Blood Culture (Wb) - Other No growth in 48 hours. Laboratory Tests Past 24 Hrs 03/04/19 03/04/19 05:15 05:15 WBC 8.3 RBC 3.78 L Hgb 11.0 L Hct 34.2 L MCV 90.5 MCH 29.1 MCHC 32.2 RDW Std Deviation 43.9 RDW Coeff of Aniceto 13.2 Plt Count 148 L MPV 10.6 Immature Gran % (Auto) 0.400 Neut % (Auto) 70.5 H Lymph % (Auto) 15.8 L Alexander % (Auto) 9.8 Eos % (Auto) 3.0 Baso % (Auto) 0.5 Absolute Neuts (auto) 5.9 Absolute Lymphs (auto) 1.32 Nucleated RBC % 0 Sodium 141 Potassium 3.7 Chloride 105 Carbon Dioxide 29.0 Anion Gap 7 BUN 17 Creatinine 0.70 Estim Creat Clear Calc 42.07 Est GFR (MDRD) Af Amer 106 Est GFR (MDRD) Non-Af 87 BUN/Creatinine Ratio 24.3 H Glucose 129 H Calcium 8.4 L POC Glucose 03/04/19 03/04/19 03/04/19 16:45 10:52 06:45 POC Glucose 131 H 166 H 124 H 03/03/19 21:45 POC Glucose 128 H Medical Necessity - Tobacco Use Smoking Status: Former smoker Tobacco Use: Non-smoker Assessment/Plan All Active Problems Complicated UTI (urinary tract infection) (Acute) Acute delirium (Acute) USAMA (acute kidney injury) (Acute) Hypokalemia (Acute) Sepsis (Acute) Acute metabolic encephalopathy (Acute) UTI (urinary tract infection) (Acute) Acute severe exacerbation of asthma (Resolved) Staphylococcal pneumonia (Ruled-out) Streptococcal pneumonia (Ruled-out) Acute and chronic respiratory failure with hypoxia (Ruled-out) Cellulitis of right breast (Ruled-out) Influenza (Ruled-out) Acute asthma exacerbation (Resolved) #1 acute sepsis secondary to acute cystitis from Proteus mirabilis-patient's Rocephin was stopped, she will be placed on Keflex 500 mg 3 times a day for an additional 5 days. #2 acute kidney injury secondary to acute sepsis-patient's creatinine today is normal, I have stopped her fluids #3 chronic hypoxic respiratory failure-continue supplemental oxygen #4 acute metabolic encephalopathy-resolved at this time, secondary to sepsis #5 obstructive sleep apnea #6 essential hypertension #7 acute cystitis secondary to Proteus mirabilis #8 morbid obesity #9 diarrhea-possibly secondary to antibiotic usage, if this continues it may be necessary to get a C. difficile toxin on her stool Code Visit Inpatient E&M: 39911 Subs Hosp L2
[2019-03-04] MEDS: Ondansetron 4 MG/2 ML Vial IV (19:36)
[2019-03-04] MEDS: Pramipexole Di-HCl 0.5 MG Tablet PO (21:25)
[2019-03-04] MEDS: Loratadine 10 MG Tablet 5 MG PO (21:28)
[2019-03-04 22:21] LABS: Bedside Glucose 134 mg/dL (70-110)
[2019-03-05] VITALS (7 sets, daily range): BP systolic 112–137; BP diastolic 45–72; PULSE 50–60; RESP 12–20; TEMP 36.5–37; O2SAT 94–100
[2019-03-05] MEDS: Heparin Injection (Vial) 5,000 UNIT/ML VIAL 5000 UNIT SC (06:41)
[2019-03-05] MEDS: Cephalexin 500 MG Capsule PO ×2 (06:42→13:11)
[2019-03-05 06:50] LABS: Bedside Glucose 121 mg/dL (70-110)
[2019-03-05] MEDS: Calcium (Elemental) 500 MG Tablet PO (08:37)
[2019-03-05] MEDS: Nadolol 40 MG Tablet PO (09:52)
[2019-03-05] MEDS: carBAMazepine 200 MG Tablet PO (09:52)
[2019-03-05] MEDS: Paroxetine 20 MG Tablet 40 MG PO (09:52)
[2019-03-05] MEDS: Menthol/Lanolin/Calamine/Znox 113 GM Tube 1 APPLIC TOPICAL (09:53)
[2019-03-05] MEDS: Nystatin Powder 15gm Bottle 1 APPLIC TOPICAL (09:54)
--- NOTE | 2019-03-05 11:29 | PCM.DC ---
- Discharge Diagnoses Current Active Problems: Current Active and Chronic Problems Complicated UTI (urinary tract infection) (Acute) Acute delirium (Acute) USAMA (acute kidney injury) (Acute) Hypokalemia (Acute) Sepsis (Acute) Acute metabolic encephalopathy (Acute) UTI (urinary tract infection) (Acute) Chronic respiratory failure with hypoxia (Chronic) You will use the following diet at home:: Calorie/Carbohydrate Controlled (specify 1200, 1400, etc) - 1800 karthik Your food should be the consistency of: Regular Your liquids should be the consistency of: Regular/Thin Discharge Activity: Return to Normal Activity Weight Bearing Status: Full weight bearing Additional Instructions: ASK YOUR PHYSICIAN ABOUT GOING ON N INSULIN TWICE DAILY VIA A VIAL -DRAWING UP THE INSULIN IN A SYRINGE RATHER THAN YOUR U500 INSULIN Allergies/Adverse Reactions: Allergies adhesive tape Allergy (Verified 04/09/18 00:24) Unknown listed on pcp allergy list cefadroxil [From Duricef] Allergy (Verified 04/09/18 00:24) Unknown gluten Allergy (Verified 03/01/19 17:14) Other Celiac disease mesalamine [From Asacol] Allergy (Verified 04/09/18 00:24) Unknown listed on pcp allergy list omalizumab [From Xolair] Allergy (Verified 04/09/18 00:24) Unknown listed on pcp allergy list Sulfa (Sulfonamide Antibiotics) Allergy (Verified 04/09/18 00:24) Unknown oxycodone Adverse Reaction (Verified 06/12/18 18:30) Vomiting Medications to take at Discharge Cholecalciferol (Vitamin D3) [Vitamin D3] 50,000 unit PO SUWE@0800 06/01/17 Levocetirizine Dihydrochloride [Xyzal] 5 mg PO QHS 06/01/17 Pramipexole Di-HCl [Mirapex] 0.5 mg PO QHS 06/01/17 Albuterol Aerosols [Ventolin Aerosols] 2.5 mg INHALATION Q2H PRN PRN #1 box 11/26/17 Albuterol IH (ProAir) [Proair Hfa] 2 puff INHALATION Q6H PRN PRN 03/25/18 Potassium Chloride [K-Dur] 10 meq PO DAILYCM #30 tablet 03/30/18 Budesonide [Rhinocort Allergy] 2 puff NARES DAILY 06/12/18 Ondansetron [Zofran Odt] 4 mg PO Q8H PRN PRN #10 tab 06/12/18 Calcium (Elemental) [Os-Karthik 500] 500 mg PO BIDCM 03/01/19 Carbamazepine 200 mg PO BID 03/01/19 Methylphenidate HCl [Methylphenidate ER] 20 mg PO BID 03/01/19 Nadolol [Corgard (Beta Tiffanie)] 40 mg PO BID 03/01/19 Paroxetine HCl [Paxil] 40 mg PO DAILY 03/01/19 Cephalexin [Keflex] 500 mg PO TID #16 cap 03/05/19 Insulin U-500 [Humulin R U-500 ([facility])] 5 units SQ BID #1 pen 03/05/19 Menthol/Lanolin/Calamine/Znox [Calmoseptine Ointment] 1 applic TOPICAL BID tube 03/05/19 Nystatin Powder [Mycostatin Powder] 1 applic TOPICAL BID bottle 03/05/19 The following prescriptions were given: Insulin U-500 [Humulin R U-500 ([facility])] 5 units SQ BID #1 pen Cephalexin [Keflex] 500 mg PO TID #16 cap Transmission Status: Pending to [facility] [facility] Primary Care Physician: Senait Jay MD [Primary Care Provider] - Please follow up with your Primary Care Physician in: this week Test Results: Test results from this visit will be discussed in further detail at your follow-up appointment, if applicable.
--- NOTE | 2019-03-05 18:08 | PCM.DC.SUM ---
Discharge Date and Diagnosis Date of Admission: 03/01/19 Date of Discharge: 03/05/19 - Primary Discharge Diagnosis #1 acute sepsis secondary to acute cystitis from Proteus mirabilis #2 acute kidney injury secondary to acute sepsis and nausea and vomiting #3 chronic hypoxic respiratory failure #4 acute metabolic encephalopathy secondary to acute sepsis #5 obstructive sleep apnea #6 essential hypertension #7 acute cystitis secondary to Proteus mirabilis #8 morbid obesity #9 nausea and vomiting secondary to sepsis - Secondary Discharge Diagnosis Chronic Problems Chronic respiratory failure with hypoxia (Chronic) Breast cancer, right breast (Chronic) Vitamin D deficiency (Chronic) Hypertension (Chronic) Diabetes mellitus (Chronic) Allergic rhinitis (Chronic) GERD (gastroesophageal reflux disease) (Chronic) Restless leg syndrome (Chronic) Body mass index (BMI) 50-59.9, adult (Chronic) Migraine headache (Chronic) Obstructive sleep apnea (Chronic) Osteoarthritis (Chronic) Celiac disease (Chronic) Asthma (Chronic) BMI 50.0-59.9, adult (Chronic) History of right breast cancer (Chronic) Sleep apnea (Chronic) Diabetes mellitus, type II (Chronic) Anxiety and depression (Chronic) Hospital Course and Treatment Operations: None Procedures: None Summary of Care Provided: The patient is a 73 year old F was seen in the emergency room at [facility] with chief complaint of confusion, vomiting, and diarrhea. Work-up in the emergency room including lab work which was remarkable for leukocytosis, urinalysis was consistent with urinary tract infection, patient was felt to be septic and was given IV Rocephin and fluids and admitted to PCU. Patient continued to have some nausea and follow-up labs revealed her creatinine to be elevated and she was thought to have acute kidney injury, patient was given IV fluids, urine culture was positive for small amounts of Proteus. Patient's blood sugars were monitored during her hospitalization and she was taken off of her U-500 insulin due to low blood sugars. On 03/05/2019, patient was seen and examined: On examination she appeared in good health and spirits. Vital signs as documented. Skin warm and dry and without overt rashes. Neck without JVD. Lungs clear. Heart exam notable for regular rhythm, normal sounds and absence of murmurs, rubs or gallops. Abdomen unremarkable and without evidence of organomegaly, masses, or abdominal aortic enlargement. Extremities nonedematous. Neuro: Cranial nerves II through XII are grossly intact, no focal motor deficits were noted, sensation to light touch and pinprick is intact. Psych: Patient is alert and oriented x3, she does not appear anxious or depressed On 03/05/2019, patient was seen and examined and felt to be in stable condition for discharge home. I discussed her medical care with her PCP Dr. Jay by phone. - Physical Exam Vital Signs Temp Pulse Resp BP Pulse Ox 97.7 F L 58 L 16 137/72 H 95 03/05/19 08:50 03/05/19 08:50 03/05/19 08:50 03/05/19 08:50 03/05/19 08:50 Oxygen Flow Rate (L/min) 2 Oxygen Delivery Method Nasal Cannula Weight: 135.2 kg Body Mass Index (BMI) 52.7 Finger Stick Blood Glucose 154 Intake and Output for Last 24 Hours 03/03/19 03/04/19 03/05/19 23:59 23:59 23:59 Intake Total 1745.00 / 1745.00 3614.58 / 3614.58 1050 / 1050 Output Total 750 / 750 Balance 995.00 / 995.00 3614.58 / 3614.58 1050 / 1050 Microbiology Past 72 Hours 03/01/19 16:07 Blood Culture - Preliminary Blood Culture (Wb) - Right Hand No growth in 48 hours. 03/01/19 16:07 Urine Culture - Final Urine, Catheterized Proteus mirabilis 03/01/19 15:13 Blood Culture - Preliminary Blood Culture (Wb) - Other No growth in 48 hours. POC Glucose 03/05/19 03/04/19 06:40 21:19 POC Glucose 121 H 134 H Discharge Activity: Return to Normal Activity Weight Bearing Status: Full weight bearing Home Medications: Medications to take at Discharge Cholecalciferol (Vitamin D3) [Vitamin D3] 50,000 unit PO SUWE@0800 06/01/17 Levocetirizine Dihydrochloride [Xyzal] 5 mg PO QHS 06/01/17 Pramipexole Di-HCl [Mirapex] 0.5 mg PO QHS 06/01/17 Albuterol Aerosols [Ventolin Aerosols] 2.5 mg INHALATION Q2H PRN PRN #1 box 11/26/17 Albuterol IH (ProAir) [Proair Hfa] 2 puff INHALATION Q6H PRN PRN 03/25/18 Potassium Chloride [K-Dur] 10 meq PO DAILYCM #30 tablet 03/30/18 Budesonide [Rhinocort Allergy] 2 puff NARES DAILY 06/12/18 Ondansetron [Zofran Odt] 4 mg PO Q8H PRN PRN #10 tab 06/12/18 Calcium (Elemental) [Os-Lance 500] 500 mg PO BIDCM 03/01/19 Carbamazepine 200 mg PO BID 03/01/19 Methylphenidate HCl [Methylphenidate ER] 20 mg PO BID 03/01/19 Nadolol [Corgard (Beta Tiffanie)] 40 mg PO BID 03/01/19 Paroxetine HCl [Paxil] 40 mg PO DAILY 03/01/19 Cephalexin [Keflex] 500 mg PO TID #16 cap 03/05/19 Insulin U-500 [Humulin R U-500 (BKC)] 5 units SQ BID #1 pen 03/05/19 Menthol/Lanolin/Calamine/Znox [Calmoseptine Ointment] 1 applic TOPICAL BID tube 03/05/19 Nystatin Powder [Mycostatin Powder] 1 applic TOPICAL BID bottle 03/05/19 Following Prescrptions Were Given to Patient: Insulin U-500 [Humulin R U-500 (BKC)] 5 units SQ BID #1 pen Cephalexin [Keflex] 500 mg PO TID #16 cap Transmission Status: Received by ERNIE MONTOYA-1953 [facility] Primary Care Physician: Senait Jay MD [Primary Care Provider] - Please follow up with your Primary Care Physician in: this week Disposition: Home Minutes spent on discharge:: 32 Patient Condition:: Stable Medical Necessity - Tobacco Use Smoking Status: Former smoker Tobacco Use: Non-smoker Meaningful Use Info Meaningful Use Diagnoses (Choose all that apply): None applicable Code Visit Inpatient E&M: 12799 Disch Hosp
--- NOTE | 2019-03-06 16:43 | CASEMGMT ---
JASWINDER PLASCENCIA Discharge Follow-Up Phone Call. Lace:?12? Strata: 4 Admission Date: 03/05/19 Adm Dx:??Sepsis, UTI, Metabolic Encephalopathy Attempted discharge follow-up phone call. No answer. Message left for pt to return call to [facility] DIRECTORAmparo SAN CM, if she has any questions/concerns about the discharge instructions, medications, or follow-up appts. Phone number provided. Neftaly MEJIA RN, CM
== END 2019-03-05 13:33 | disposition home or self-care (01) | DRG 871 ==
LOC: ED 17:22 → MS3 17:55 → PCU 18:23
PROVIDERS: Physician Assistant; Admitting Provider Internal Medicine; Emergency Provider Emergency Medicine; Family Provider Internal Medicine; PCP Internal Medicine; Visit Provider Internal Medicine
DX: A41.9 Sepsis, unspecified organism (principal); G93.41 Metabolic encephalopathy; N17.9 Acute kidney failure, unspecified; J96.11 Chronic respiratory failure with hypoxia; Z68.43 Body mass index [BMI] 50.0-59.9, adult; N30.00 Acute cystitis without hematuria; E66.01 Morbid (severe) obesity due to excess calories; E11.9 Type 2 diabetes mellitus without complications; G47.33 Obstructive sleep apnea (adult) (pediatric); I10 Essential (primary) hypertension; Z90.10 Acquired absence of unspecified breast and nipple; G25.81 Restless legs syndrome; B96.4 Proteus (mirabilis) (morganii) as the cause of diseases classified elsewhere; E87.6 Hypokalemia; F32.9 Major depressive disorder, single episode, unspecified; F41.9 Anxiety disorder, unspecified; K90.0 Celiac disease; Z87.440 Personal history of urinary (tract) infections; Z87.891 Personal history of nicotine dependence; Z79.4 Long term (current) use of insulin; Z85.3 Personal history of malignant neoplasm of breast; M19.90 Unspecified osteoarthritis, unspecified site; K21.9 Gastro-esophageal reflux disease without esophagitis; E55.9 Vitamin D deficiency, unspecified; Z99.81 Dependence on supplemental oxygen; J45.909 Unspecified asthma, uncomplicated
CPT/HCPCS: 36415; 70450; 71045; 74176; 80048; 80053; 81001; 82962; 83605; 83690; 84484; 85025; 85610; 87040; 87077; 87086; 87088; 87186; 93005; 94002; 94003; 97162; 97165; 97535; 97802; 99285; J7030; J7050; P9612; A4216; J0696; J2405

== ENCOUNTER → 2019-03-14 17:03 | Outpatient (CLI) | payer MEDICARE, SELFPAY ==
[2019-03-01 19:17] VITALS: BMI 52.7
[2019-03-14 17:50] LABS: Hematocrit 39.2 % (37-47); Hemoglobin 12.4 g/dL (12.0-15.0); Mean Corp Hgb Conc 31.6 g/dL (32-36); Mean Corpuscular Volume 91.6 fL (81-99); Mean Platelet Vol. 10.4 fl (6.2-12.0); Platelet Count 282 K/mm3 (150-450); RBC Distribution Width CV 13.3 % (11.6-14.6); RBC Distribution Width SD 44.8 fl (35.1-43.9); Red Blood Count 4.28 M/mm3 (4.2-5.4); White Blood Count 8.4 K/mm3 (4.4-11.0)
[2019-03-14 17:58] LABS: Vitamin D,25 Hydroxy 64.9 ng/mL (29.95-100.01)
[2019-03-14 18:00] LABS: Hemoglobin A1c 6.6 % (4.2-6.3)
[2019-03-14 18:05] LABS: Cholesterol 227 mg/dL (200); High Density Lipoprotein 32 mg/dL; Magnesium 2.1 mg/dL (1.6-2.6); T4 Free Direct 0.93 ng/dL (0.76-1.46); Thyroid Stim Hormone (TSH) 1.46 uIU/mL (0.358-3.74); Triglycerides 373 mg/dL; Very Low Density Lipoprotein 75 mg/dL (5-40)
[2019-03-14 18:14] LABS: Microalbumin,Random Urine 56.4 mg/L (NO RANGE EST.); Microalbumin:Creatinine Ratio 21.6 mg/g CRE (<30 mg/g CRE)
== END ==
PROVIDERS: Family Provider Internal Medicine; PCP Internal Medicine; Referring Provider Internal Medicine; Visit Provider Internal Medicine
DX: E78.2 Mixed hyperlipidemia (principal); E11.9 Type 2 diabetes mellitus without complications; E55.9 Vitamin D deficiency, unspecified; I10 Essential (primary) hypertension; R53.83 Other fatigue; Z79.4 Long term (current) use of insulin; Z79.899 Other long term (current) drug therapy
CPT/HCPCS: 80061; 82043; 82306; 82570; 83036; 83735; 84439; 84443; 85027

== ENCOUNTER → 2019-05-26 13:34 | Outpatient (CLI) | payer MEDICARE, SELFPAY ==
[2019-03-01 19:17] VITALS: BMI 52.7
== END ==
PROVIDERS: Family Provider Internal Medicine; PCP Internal Medicine; Referring Provider Surgery; Visit Provider Surgery
DX: J45.909 Unspecified asthma, uncomplicated (principal)
CPT/HCPCS: 87070; 87077; 87186; 87205

== ENCOUNTER → 2019-05-30 12:33 | Outpatient (CLI) | payer MEDICARE, SELFPAY ==
[2019-03-01 19:17] VITALS: BMI 52.7
--- NOTE | 2019-05-30 12:35 | RAD_ITS ---
STUDY: X-RAY - PARANASAL SINUSES REASON FOR EXAM: Female, 73 years old. Sinusitis TECHNIQUE: 3 view(s) of the paranasal sinuses were obtained. COMPARISON: None. FINDINGS: Opacification of the bilateral maxillary, left frontal, and to a lesser extent bilateral ethmoidal sinuses concerning for sinonasal disease. Unremarkable assessment of the right frontal sinus. Assessment of the bilateral sphenoidal sinuses is somewhat limited due to positioning. RAD/Sinuses min 3 Views IMPRESSION: Opacification of the bilateral maxillary, left frontal, and to a lesser extent bilateral ethmoidal sinuses concerning for sinonasal disease. Assessment of the bilateral sphenoidal sinuses is somewhat limited due to positioning. Electronically Signed: August Perez MD at 16:07 EST Tel [phone], Service support ,
== END ==
PROVIDERS: Family Provider Internal Medicine; PCP Internal Medicine; Referring Provider Internal Medicine Pulmonary Disease; Visit Provider Internal Medicine Pulmonary Disease
DX: J45.51 Severe persistent asthma with (acute) exacerbation (principal); J32.9 Chronic sinusitis, unspecified; R05 Cough
CPT/HCPCS: 70220

== ENCOUNTER 2019-10-04 16:19 | Inpatient (IN) | payer MEDICARE, SELFPAY ==
[2019-03-01 19:17] VITALS: BMI 52.7
[2019-10-04] VITALS (10 sets, daily range): BP systolic 156–188; BP diastolic 68–99; PULSE 87–103; RESP 18–32; TEMP 36.6–37.4; O2SAT 91–98; BMI 53.1; BMI 53.8
--- NOTE | 2019-10-04 16:57 | EKG12_ITS ---
Test Reason : SOB Blood Pressure : / mmHG Vent. Rate : 093 BPM Atrial Rate : 093 BPM P-R Int : 184 ms QRS Dur : 074 ms QT Int : 372 ms P-R-T Axes : 059 -09 095 degrees QTc Int : 462 ms Normal sinus rhythm with sinus arrhythmia Low voltage QRS Nonspecific T wave abnormality Poor R wave progression Abnormal ECG Confirmed by SHARLA RIVERA, EN ([id number]), rewrite editor SAIRA WHITMORE ([id number]) on 10/09/2019 2:18:24 PM Referred By: KRISTEN Confirmed By:EN MAGDALENO MD
[2019-10-04 17:18] LABS: Absolute Lymphocyte Count 2.53 X10^3/uL (0.83-4.51); Absolute Neutrophil Count 4.7 X10^3/uL (2.0-7.7); Basophil# 0.06 X10^3/uL; Basophil% 0.7 % (0-1); Hematocrit 40.1 % (37-47); Hemoglobin 13.4 g/dL (12.0-15.0); Lymphocyte # 2.53 X10^3/ul (4.0); Lymphocyte % 30.1 % (19-41); Mean Corp Hgb Conc 33.4 g/dL (32-36); Mean Corpuscular Hgb 29.5 pg (27.0-32.0); Mean Corpuscular Volume 88.1 fL (81-99); Mean Platelet Vol. 9.7 fl (6.2-12.0); Monocyte# 0.56 X10^3/uL; Monocyte% 6.7 % (0-10); NRBC Flagged by Analyzer 0 % (0-5); Neutrophil % 55.9 % (47-70); Platelet Count 143 K/mm3 (150-450); RBC Distribution Width CV 12.9 % (11.6-14.6); RBC Distribution Width SD 42.1 fl (35.1-43.9); Red Blood Count 4.55 M/mm3 (4.2-5.4); White Blood Count 8.4 K/mm3 (4.4-11.0)
[2019-10-04 17:25] LABS: International Normalized Ratio 1.1; Prothrombin Time (Protime)PT. 13.2 SECONDS (11.7-14.9)
--- NOTE | 2019-10-04 17:25 | RAD_ITS ---
STUDY: X-RAY CHEST REASON FOR EXAM: Female, 74 years old. sob with cough TECHNIQUE: AP portable COMPARISON: March 01, 2019 FINDINGS: There is mild interstitial thickening in the lower lobes.. There is no demonstrated pleural abnormality. Normal size heart. Normal mediastinum and tanna. Normal visualized pulmonary arteries. Mildly calcified aortic arch and descending thoracic aorta. Dorsal spine demonstrates scoliosis and degenerative change Normal visualized ribs, clavicles, and shoulders. Surgical clips are seen in the right anterior and lateral chest wall There is no demonstrated abnormality of the visualized soft tissue structures of the upper abdomen. Findings are similar to that seen on prior study except for differences in radiographic technique RAD/Chest 1 View (Portable) IMPRESSION: Prominence of the interstitial markings in both lower lobes likely chronic however if concern for acute inflammatory disease CT may be helpful for further evaluation Electronically Signed: Santana Beal MD at 17:37 EDT , Service support ,
[2019-10-04 17:26] LABS: Partial Thromboplast Time 26.4 Seconds (24.1-36.2)
[2019-10-04 17:40] LABS: ALB/GLOB Ratio 0.9 RATIO (0.9-2.4); AST(SGOT) 44 U/L (15-37); Alanine Aminotransfer ALT/SGPT 56 U/L (13-56); Albumin, Serum 3.2 g/dL (3.2-5.0); Alkaline Phosphatase 94 U/L (45-117); Anion Gap 6 (5-15); BUN 15 mg/dL (7-18); Calcium,Total 8.5 mg/dL (8.5-10.1); Chloride 104 mmol/L (98-107); Creatinine, Serum 0.88 mg/dL (0.55-1.02); EST Glomerular Filtration Rate 67 mL/min (>60); Est Glom Filt Rate - Afr Amer 81 mL/min (>60); Globulin 3.5 g/dL (2.2-4.2); Glucose 305 mg/dL (74-106); Potassium 3.7 mmol/L (3.5-5.1); Protein, Total 6.7 g/dL (6.4-8.2); Sodium Level 140 mmol/L (136-145)
[2019-10-04 17:47] LABS: Lactic Acid 2.6 mmol/L (0.4-1.9)
--- NOTE | 2019-10-04 18:13 | NURSING ---
MED SURG NGOZI ASTHMATIC BRONCHITIS, R/O COVID
--- NOTE | 2019-10-04 18:28 | ED.VIS.GEN ---
History of Present Illness Chief Complaint: Shortness of Breath Informant: Patient Onset: Weeks - 1 Narrative: Patient presents with worsening dyspnea cough for the past week. History of asthma and sleep apnea with BiPAP at night. No daily home oxygen. Denies COPD history. Denies chest pain. States is chronic loose stools that come and go. No fevers headaches or myalgias. History of similar with asthmatic bronchitis in the past. Denies tobacco history. No chest pains or abdominal pain. No urinary symptoms. Prior similar symptoms: Yes Past Medical History - Allergies and Home Meds Allergies/Adverse Reactions: Allergies adhesive tape Allergy (Verified 10/04/19 17:11) Unknown listed on pcp allergy list cefadroxil [From Duricef] Allergy (Verified 10/04/19 17:11) Unknown gluten Allergy (Verified 10/04/19 17:11) Other Celiac disease mesalamine [From Asacol] Allergy (Verified 10/04/19 17:11) Unknown listed on pcp allergy list omalizumab [From Xolair] Allergy (Verified 10/04/19 17:11) Unknown listed on pcp allergy list Sulfa (Sulfonamide Antibiotics) Allergy (Verified 10/04/19 17:11) Unknown oxycodone Adverse Reaction (Verified 10/04/19 17:11) Vomiting Past Medical History: - - Asthma, diabetes, sleep apnea, restless leg syndrome Surgical History: hysterectomy, mastectomy - Right, lymph node dissection., - - Rectocele repair. Smoking Status: Former smoker - Family History Paternal Family History: Reports: Cancer, Heart Disease - Father with history of fatal [place]. Maternal Family History: Reports: Cancer Review of Systems General: Denies: Chills, Fever, Sweats Eyes: Denies: Visual changes - bilaterally, Diplopia ENT: Denies: Rhinorrhea, Sore throat Cardiovascular: Denies: Chest pain, Palpitations Respiratory: Reports: Dyspnea, Cough, Sputum. Denies: Dyspnea on exertion Gastrointestinal: Denies: Abdominal pain, Nausea, Vomiting, Diarrhea, Melena, Hematochezia Genitourinary: Denies: Dysuria, Hematuria, Frequency Musculoskeletal: Denies: Back pain, Extremity Pain Skin: Denies: Rash, Wounds Neurological: Denies: Headache, Weakness, Numbness Physical Exam Vital Signs/Narrative: Vital Signs Temp Pulse Resp BP Pulse Ox 10/04/19 17:58 98.8 F 10/04/19 17:56 98.8 F 95 20 H 169/68 H 98 10/04/19 17:10 98.9 F 10/04/19 17:08 89 18 157/89 H 97 10/04/19 17:07 20 H 97 10/04/19 17:05 97.8 F 103 H 32 H 188/81 H 91 10/04/19 16:20 97.8 F 103 H 32 H 188/81 H 91 Inital Vital Signs reviewed: Yes General: Well nourished, Well developed, No Acute Distress Head: Normocephalic, Atraumatic Eyes: Perrl, EOMI ENT: Moist mucous membranes, No rhinorrhea Neck: Supple, Nontender Cardiovascular: Regular rate, Regular rhythm, No murmurs, Tachycardia Respiratory: No distress, Chest nontender, - - This mild rhonchus bilateral lower lobes, no accessory muscle use. Abdomen: Soft, Nontender, Nondistended, Normal bowel sounds Back: Nontender, Normal Inspection Extremities: Nontender, No edema Skin: Normal color, No rash Neurological: Alert, Oriented x3, Cranial nerves II-XII grossly intact, Normal Strength, Normal Sensation Psychological: Normal affect, Normal Mood Diagnostic/Tx/Re-eval Clinical Impression(s) from Imaging Studies Chest X-Ray 10/04/19 17:25 IMPRESSION: Prominence of the interstitial markings in both lower lobes likely chronic however if concern for acute inflammatory disease CT may be helpful for further evaluation Electronically Signed: Santana Beal MD at 17:37 EDT , Service support , Abnormal Lab Results 10/04/19 10/04/19 10/04/19 17:05 17:05 17:05 WBC 8.4 RBC 4.55 Hgb 13.4 Hct 40.1 MCV 88.1 MCH 29.5 MCHC 33.4 RDW Std Deviation 42.1 RDW Coeff of Aniceto 12.9 Plt Count 143 L MPV 9.7 Immature Gran % (Auto) 0.600 Neut % (Auto) 55.9 Lymph % (Auto) 30.1 Bell % (Auto) 6.7 Eos % (Auto) 6.0 H Baso % (Auto) 0.7 Absolute Neuts (auto) 4.7 Absolute Lymphs (auto) 2.53 Nucleated RBC % 0 PT 13.2 INR 1.1 APTT 26.4 Sodium 140 Potassium 3.7 Chloride 104 Carbon Dioxide 30.0 Anion Gap 6 BUN 15 Creatinine 0.88 Estim Creat Clear Calc 47.10 Est GFR (MDRD) Af Amer 81 Est GFR (MDRD) Non-Af 67 BUN/Creatinine Ratio 17.0 Glucose 305 H Lactic Acid Calcium 8.5 Total Bilirubin 0.30 AST 44 H ALT 56 Alkaline Phosphatase 94 Total Protein 6.7 Albumin 3.2 Globulin 3.5 Albumin/Globulin Ratio 0.9 10/04/19 17:05 WBC RBC Hgb Hct MCV MCH MCHC RDW Std Deviation RDW Coeff of Aniceto Plt Count MPV Immature Gran % (Auto) Neut % (Auto) Lymph % (Auto) Bell % (Auto) Eos % (Auto) Baso % (Auto) Absolute Neuts (auto) Absolute Lymphs (auto) Nucleated RBC % PT INR APTT Sodium Potassium Chloride Carbon Dioxide Anion Gap BUN Creatinine Estim Creat Clear Calc Est GFR (MDRD) Af Amer Est GFR (MDRD) Non-Af BUN/Creatinine Ratio Glucose Lactic Acid 2.6 H* Calcium Total Bilirubin AST ALT Alkaline Phosphatase Total Protein Albumin Globulin Albumin/Globulin Ratio - EKG Initial EKG Interpretation: Sinus Rhythm - Sinus rate of 93, no ST or T wave changes. - Medical Decision Making Patient slight tachycardic tachypneic on arrival, sepsis work-up initiated. She is afebrile. Mild rhonchus lower lobes she was 91% on arrival on room air. She is placed on nasal cannula. Chest x-ray atelectasis with no infiltrative findings her white count is normal her lactic acid 2.6. Likely from her initial tachypnea. This normalized with oxygen. I did speak with [facility] for approval for COVID screening which was obtained and pending. With patient's symptoms now at week with 91% room air, with COVID pandemic, I do feel she will benefit from hospitalization monitoring for respiratory decompensation. Her glucose was 305, there is no active wheezing, therefore steroids will be held from the ED. I spoke with hospitalist, Dr. Camejo for admission. ED Disposition - Plan for ED Patient: Disposition: Acute Care Hospital [facility] Diagnosis: Asthmatic bronchitis, Suspected 2019-nCoV infection, Lactic acidosis
--- NOTE | 2019-10-04 18:32 | PCM.HP.STD ---
History of Present Illness Date of Admission: 10/04/19 Chief Complaint: shortness of breath The patient is a 74 year old F with history of asthma presents with increasing shortness of breath. Patient states that she has dyspnea on exertion and just been getting worse over the past week. Denies any fever chills. Patient saw Dr. Ramirez, of ENT, who told her that she has a sinus infection as well as a otitis media on the left. But also advised she come into the hospital. Patient presented to the hospital and had criteria to meet sepsis. Had a chest x-ray that was not definitive for pneumonia but there was concern for COVID-19 and the hospital service was asked for admission. Patient was noted to be tachycardic and tachypneic. Patient states that this is similar to prior episodes of flareups of her asthma in the past. Patient states that she has been essentially homebound and has not gone out about nor had any known sick contacts as of late. [] Past Medical History Past Medical History (Chronic Problems): Chronic Problems Chronic respiratory failure with hypoxia (Chronic) Breast cancer, right breast (Chronic) Vitamin D deficiency (Chronic) Hypertension (Chronic) Diabetes mellitus (Chronic) Allergic rhinitis (Chronic) GERD (gastroesophageal reflux disease) (Chronic) Restless leg syndrome (Chronic) Body mass index (BMI) 50-59.9, adult (Chronic) Migraine headache (Chronic) Obstructive sleep apnea (Chronic) Osteoarthritis (Chronic) Celiac disease (Chronic) Asthma (Chronic) BMI 50.0-59.9, adult (Chronic) History of right breast cancer (Chronic) Sleep apnea (Chronic) Diabetes mellitus, type II (Chronic) Anxiety and depression (Chronic) Allergies adhesive tape Allergy (Verified 10/04/19 17:11) Unknown listed on pcp allergy list cefadroxil [From Duricef] Allergy (Verified 10/04/19 17:11) Unknown gluten Allergy (Verified 10/04/19 17:11) Other Celiac disease mesalamine [From Asacol] Allergy (Verified 10/04/19 17:11) Unknown listed on pcp allergy list omalizumab [From Xolair] Allergy (Verified 10/04/19 17:11) Unknown listed on pcp allergy list Sulfa (Sulfonamide Antibiotics) Allergy (Verified 10/04/19 17:11) Unknown oxycodone Adverse Reaction (Verified 04/29/20 17:11) Vomiting Home Medications: Ambulatory Orders Medication Instructions Recorded Cholecalciferol (Vitamin D3) 50,000 unit PO SUWE@0800 06/01/17 [Vitamin D3] Pramipexole Di-HCl [Mirapex] 0.5 mg PO QHS 06/01/17 Albuterol Aerosols [Ventolin 2.5 mg INHALATION Q2H PRN PRN #1 11/26/17 Aerosols] box Albuterol IH (ProAir) [Proair Hfa] 2 puff INHALATION Q6H PRN PRN 03/25/18 Potassium Chloride [K-Dur] 10 meq PO DAILYCM #30 tablet 03/30/18 Budesonide [Rhinocort Allergy] 2 puff NARES DAILY 06/12/18 Ondansetron [Zofran Odt] 4 mg PO Q8H PRN PRN #10 tab 06/12/18 Carbamazepine 200 mg PO BID 03/01/19 Methylphenidate HCl 20 mg PO BID 03/01/19 [Methylphenidate ER] Nadolol [Corgard (Beta Tiffanie)] 40 mg PO BID 03/01/19 Paroxetine HCl [Paxil] 40 mg PO DAILY 03/01/19 Insulin U-500 [Humulin R U-500 5 units SQ BID #1 pen 03/05/19 (BKC)] Nystatin Powder [Mycostatin Powder] 1 applic TOPICAL BID bottle 03/05/19 Surgical History: hysterectomy, mastectomy - Right, lymph node dissection., - - Rectocele repair. 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 Maternal History Items: Cancer Review of Systems Constitutional: Denies: Anorexia, Chills, Fever Eyes: Denies: Blurred vision, Double vision HEENT: Denies: Head Aches, Sinus Congestion, Sinus Drainage Cardiovascular: Reports: Chest Pain - Last week but since resolved. She states that is probably related with being anxious. Denies: Edema Respiratory: Reports: Cough, Shortness of Breath, Shortness of breath upon exertion, Sputum production Gastrointestinal: Denies: Abdominal Pain, Nausea, Vomiting Genitourinary: Denies: Dysuria Skin: Denies: Rash, Wounds Psychiatric: Denies: Anxiety, Depression Endocrine: Denies: Change in Body Habitus Comment: All review of systems were negative except as mentioned above in the history of present illness and the other review of systems. VTE Information - Inpt Only VTE Present on Admission: No VTE Mechan Device Prophylaxis: None VTE Pharm Prophylaxis ordered?: Yes Patient Problems: Active and Suspected Problems Asthmatic bronchitis (Acute) Suspected 2018-nCoV infection (Acute) Lactic acidosis (Acute) - Physical Exam Vitals/I&O's: Vital Signs Temp Pulse Resp BP Pulse Ox 37.1 C 95 20 H 169/68 H 98 10/04/19 17:58 10/04/19 17:56 10/04/19 17:56 10/04/19 17:56 10/04/19 17:56 Oxygen Flow Rate (L/min) 2 Oxygen Delivery Method Nasal Cannula Weight: 136.078 kg Body Mass Index (BMI) 53.1 Finger Stick Blood Glucose 154 General: Alert, No apparent distress HEENT: Atraumatic, Normocephalic Oral: Moist Mucosa, No Gingival or Mucosal Lesions/ Ulcerations Neck: No Nodes, Trachea Midline Lungs: Diminished, Wheezes Cardiovascular: Regular rate, Regular Rhythm, Normal S1, Normal S2, No murmurs Abdomen: Bowel Sounds Present, Soft, Non Tender, Non-Distended, No Hepato-splenomegaly Extremities: No edema, No Calf Tenderness Skin: No rashes, No breakdown Musculoskeletal: No Tenderness to Palpation of Joints or Extremities, No Muscle Wasting Neurological: Deep Tendon Reflexes 2+/4 and Symmetrical, - - No clonus Psych/Mental Status: Normal Affect, Appropriate Laboratory Results 10/04/19 17:05: WBC 8.4, RBC 4.55, Hgb 13.4, Hct 40.1, MCV 88.1, MCH 29.5, MCHC 33.4, RDW Std Deviation 42.1, RDW Coeff of Aniceto 12.9, Plt Count 143 L, MPV 9.7, Immature Gran % (Auto) 0.600, Neut % (Auto) 55.9, Lymph % (Auto) 30.1, Gove % (Auto) 6.7, Eos % (Auto) 6.0 H, Baso % (Auto) 0.7, Absolute Neuts (auto) 4.7, Absolute Lymphs (auto) 2.53, Nucleated RBC % 0 10/04/19 17:05: Sodium 140, Potassium 3.7, Chloride 104, Carbon Dioxide 30.0, Anion Gap 6, BUN 15, Creatinine 0.88, Estim Creat Clear Calc 47.10, Est GFR (MDRD) Af Amer 81, Est GFR (MDRD) Non-Af 67, BUN/Creatinine Ratio 17.0, Glucose 305 H, Calcium 8.5, Total Bilirubin 0.30, AST 44 H, ALT 56, Alkaline Phosphatase 94, Total Protein 6.7, Albumin 3.2, Globulin 3.5, Albumin/Globulin Ratio 0.9 10/04/19 17:05: PT 13.2, INR 1.1, APTT 26.4 10/04/19 17:05: Lactic Acid 2.6 H* 10/04/19 17:55: COVID-19 (REBEKA) Pending Chest x-ray personally reviewed and showed some hazy changes in the bases bilaterally Assessment/Plan All Active Problems Asthmatic bronchitis (Acute) Suspected 2019-nCoV infection (Acute) Lactic acidosis (Acute) Complicated UTI (urinary tract infection) (Acute) Acute delirium (Acute) USAMA (acute kidney injury) (Acute) Hypokalemia (Acute) Sepsis (Acute) Acute metabolic encephalopathy (Acute) UTI (urinary tract infection) (Acute) Acute severe exacerbation of asthma (Resolved) Staphylococcal pneumonia (Ruled-out) Streptococcal pneumonia (Ruled-out) Acute and chronic respiratory failure with hypoxia (Ruled-out) Cellulitis of right breast (Ruled-out) Influenza (Ruled-out) Acute asthma exacerbation (Resolved) 1. Sepsis: Lactic acid is elevated though it cannot be delineated whether that may be due to sepsis or component of her respiratory distress due to her underlying asthma as well. Patient is otherwise hemodynamically stable and, at this time, I do not feel that this time that she would defervesce acutely. Etiology I suspect may be pneumonia though patient does have apparently otitis media and sinus infection which could be exacerbating this. Will put the patient on levofloxacin given her known history of a beta-lactam allergy and monitor. Follow-up cultures. Blood cultures were performed in the emergency room. COVID-19 testing was also performed. COVID-19 testing likely will be sent out until the and may be 24 to 48 hours before those results are back. 2. Suspected pneumococcal pneumonia, as above, cannot delineate if this definitive pneumonia or just her being sick from what was told her is an otitis media. Due to the for personal protective equipment, I was unable to visualize left tympanic membrane but was told by Dr. Simons that she had otitis media. Patient will be on Levaquin for pneumonia. Will check urinary antigens for strep coccus Legionella. Check sputum culture. 3. Acute asthma exacerbation: We will put the patient on her home dose of bronchodilators as well is methylprednisolone. 4. Diabetes mellitus type 2: Patient on U5 100 at home. Will continue with her home regimen and as well as signed scale insulin. Make changes accordingly as the steroids are likely exacerbate her diabetes and lead to hyperglycemia potentially. 5. VTE prophylaxis: Moderate risk. Low molecular weight heparin 6. Advanced care planning: Discussed with patient. Patient wishes to be full CODE STATUS at this time. Patient states that she does have a living will and would not want to be in a vegetative state if her situation were to come to that. Inpatient E&M: 04642 Init Hosp L3
--- NOTE | 2019-10-04 19:03 | ED.RN ---
2 sets of blood cultures done and no orders for fluid given.
[2019-10-04] MEDS: levoFLOXacin IV 750 MG/150 ML BAG 100 MG IV (21:03)
[2019-10-04] MEDS: Pramipexole Di-HCl 0.5 MG Tablet PO (21:06)
[2019-10-04] MEDS: carBAMazepine 200 MG Tablet PO (21:06)
[2019-10-04] MEDS: Nadolol 40 MG Tablet PO (21:06)
[2019-10-04] MEDS: Nystatin Powder 15gm Bottle 1 APPLIC TOPICAL (21:10)
[2019-10-04 21:12] LABS: Reflex Lactate? Y
[2019-10-04 21:36] LABS: Bedside Glucose 235 mg/dL (70-110)
[2019-10-04 22:16] LABS: Lactic Acid 1.6 mmol/L (0.4-1.9)
[2019-10-05] VITALS (9 sets, daily range): BP systolic 147–164; BP diastolic 68–90; PULSE 66–88; RESP 16–21; TEMP 36.5–37.4; O2SAT 88–98
[2019-10-05 06:44] LABS: Absolute Lymphocyte Count 1.46 X10^3/uL (0.83-4.51); Absolute Neutrophil Count 5.9 X10^3/uL (2.0-7.7); Basophil# 0.05 X10^3/uL; Basophil% 0.6 % (0-1); Eosinophil# 0.09 X10^3/uL; Eosinophils% 1.1 % (0-5); Hematocrit 39.7 % (37-47); Hemoglobin 13.3 g/dL (12.0-15.0); Lymphocyte # 1.46 X10^3/ul (4.0); Lymphocyte % 18.4 % (19-41); Mean Corp Hgb Conc 33.5 g/dL (32-36); Mean Corpuscular Hgb 30.4 pg (27.0-32.0); Mean Corpuscular Volume 90.6 fL (81-99); Mean Platelet Vol. 10.2 fl (6.2-12.0); Monocyte# 0.39 X10^3/uL; Monocyte% 4.9 % (0-10); NRBC Flagged by Analyzer 0 % (0-5); Neutrophil # 5.88 X10^3/uL (2.7-7.7); Neutrophil % 74.4 % (47-70); Platelet Count 132 K/mm3 (150-450); RBC Distribution Width CV 13.1 % (11.6-14.6); RBC Distribution Width SD 42.4 fl (35.1-43.9); Red Blood Count 4.38 M/mm3 (4.2-5.4); White Blood Count 7.9 K/mm3 (4.4-11.0)
[2019-10-05 07:02] LABS: Anion Gap 7 (5-15); BUN 14 mg/dL (7-18); BUN/Creat Ratio 21.1 RATIO (10-20); Calcium,Total 8.6 mg/dL (8.5-10.1); Chloride 103 mmol/L (98-107); Creatinine, Serum 0.66 mg/dL (0.55-1.02); EST Glomerular Filtration Rate 93 mL/min (>60); Est Glom Filt Rate - Afr Amer 112 mL/min (>60); Estimated Creatinine Clearance 41.45 ml/min; Glucose 220 mg/dL (74-106); Sodium Level 135 mmol/L (136-145)
[2019-10-05] MEDS: Budesonide Respules 0.5 MG/2 ML AMPUL.NEB. INHALATION (07:09)
[2019-10-05] MEDS: Insulin Lispro 100 UNIT/ML INSULN.PEN SC ×3 (07:56→16:17)
[2019-10-05] MEDS: Paroxetine 20 MG Tablet 40 MG PO (07:59)
[2019-10-05] MEDS: carBAMazepine 200 MG Tablet PO ×2 (07:59→23:08)
[2019-10-05] MEDS: Enoxaparin 40 MG/0.4 ML Syringe SC (07:59)
[2019-10-05] MEDS: Nadolol 40 MG Tablet PO (07:59)
[2019-10-05] MEDS: Nystatin Powder 15gm Bottle 1 APPLIC TOPICAL ×2 (07:59→23:08)
[2019-10-05 08:46] LABS: Bedside Glucose 202 mg/dL (70-110)
[2019-10-05 11:25] LABS: Bedside Glucose 270 mg/dL (70-110)
--- NOTE | 2019-10-05 12:59 | CASEMGMT ---
RN THAIS Assessment Note Presentation: suspected pneumonia. COVID 19 testing pending Intro role of CM and purpose of RN CM assessment to pt via phone to room. Demographics, PCP and Pharmacy verified. Pt states she is normally independent, however has some difficulty @ home. Her is 85 and is forgetful and not able to assist her much on dc. Pt states she is not using ambulatory DME at this time, but does have Home oxygen and Bipap. -Pt had concerns re: [facility] being [facility] with her insurance. RN CM called and verified it is. Pt called back to update. She also had concerns re: being able to purchase specialty bras. printout and # for [employer] given to her to be able to f/u on dc. -She has areas to self isolate, but has been around her continuously since getting ill. States she gets groceries from [employer]. her is elderly, but currently asymptomatic. RN CM let pt know nurses would give instructions on dc if further isolation is recommended. PCP: Dr. Jay Preferred Pharmacy: [facility] Insurance: [employer] [employer] Prescription Benefit: yes LNOK : Living Arrangements: Lives independently. States she is able to complete own ADL's but has difficulty when not feeling well. Makes meals and drives. States she does not anticipate needs on dc at this time. Transportation: drives, but states she has been homebound now for weeks due to COVID concerns. DME: walker- not using. Oxygen through [facility]. 2L NC continuous and bleed in for Bipap. Pt states her concentrator is upstairs and if she goes downstairs to her couch, she uses tanks. HHC: none. Patient DC goals: Home on dc. DC PLAN: Anticipate Home on discharge. Pt denies needs at this time. Per staff, pt is out of bed independently. JASWINDER PLASCENCIA advised to contact cm for any concerns/needs that may arise. Gregor MEJIA RN ACM
--- NOTE | 2019-10-05 13:32 | PN_ITS ---
Patient Problems: Active and Suspected Problems Asthmatic bronchitis (Acute) Suspected 2019-nCoV infection (Acute) Lactic acidosis (Acute) Reason for Visit: asthma exacerbation Subjective: breathing better overall. +POP with going to bathroom today. Vitals/I&O's: Vital Signs Temp Pulse Resp BP Pulse Ox 36.6 C 70 16 150/80 H 88 10/05/19 07:51 10/05/19 07:51 10/05/19 07:51 10/05/19 07:51 10/05/19 08:10 Oxygen Flow Rate (L/min) 2 Oxygen Delivery Method Room Air Weight: 137.892 kg Body Mass Index (BMI) 53.8 Finger Stick Blood Glucose 154 Intake and Output for Last 24 Hours 10/03/19 10/04/19 10/05/19 23:59 23:59 23:59 Intake Total 193 / 193 650 / 650 Output Total 600 / 600 Balance 193 / 193 50 / 50 General: Alert, - - tachypneic after going to [place]. HEENT: Atraumatic, Normocephalic Oral: Moist Mucosa, No Gingival or Mucosal Lesions/ Ulcerations Neck: No Nodes, Trachea Midline Lungs: Normal air movement, Wheezes Cardiovascular: Regular rate, Regular Rhythm, Normal S1, Normal S2, No murmurs Abdomen: Bowel Sounds Present, Soft, Non Tender, Non-Distended, No Hepato- splenomegaly Extremities: No edema, No Calf Tenderness Musculoskeletal: No Tenderness to Palpation of Joints or Extremities, No Muscle Wasting Microbiology Past 72 Hours 10/05/19 07:50 Sputum, Expectorated/Coughed Gram Stain - Final 10/05/19 07:50 Urine, Clean Catch Streptococcus pneumoniae Antigen (M - Final 10/05/19 07:50 Urine, Clean Catch Legionella Antigen - Final Laboratory Results 10/04/19 17:05: WBC 8.4, RBC 4.55, Hgb 13.4, Hct 40.1, MCV 88.1, MCH 29.5, MCHC 33.4, RDW Std Deviation 42.1, RDW Coeff of Aniceto 12.9, Plt Count 143 L, MPV 9.7, Immature Gran % (Auto) 0.600, Neut % (Auto) 55.9, Lymph % (Auto) 30.1, [place] % (Auto) 6.7, Eos % (Auto) 6.0 H, Baso % (Auto) 0.7, Absolute Neuts (auto) 4.7, Absolute Lymphs (auto) 2.53, Nucleated RBC % 0 10/04/19 17:05: Sodium 140, Potassium 3.7, Chloride 104, Carbon Dioxide 30.0, Anion Gap 6, BUN 15, Creatinine 0.88, Estim Creat Clear Calc 47.10, Est GFR (MDRD) Af Amer 81, Est GFR (MDRD) Non-Af 67, BUN/Creatinine Ratio 17.0, Glucose 305 H, Calcium 8.5, Total Bilirubin 0.30, AST 44 H, ALT 56, Alkaline Phosphatase 94, Total Protein 6.7, Albumin 3.2, Globulin 3.5, Albumin/Globulin Ratio 0.9 10/04/19 17:05: PT 13.2, INR 1.1, APTT 26.4 10/04/19 17:05: Lactic Acid 2.6 H* 10/04/19 17:55: COVID-19 (REBEKA) Pending 10/04/19 21:09: POC Glucose 235 H 10/04/19 21:45: Lactic Acid 1.6 10/05/19 06:12: WBC 7.9, RBC 4.38, Hgb 13.3, Hct 39.7, MCV 90.6, MCH 30.4, MCHC 33.5, RDW Std Deviation 42.4, RDW Coeff of Aniceto 13.1, Plt Count 132 L, MPV 10.2, Immature Gran % (Auto) 0.600, Neut % (Auto) 74.4 H, Lymph % (Auto) 18.4 L, [place] % (Auto) 4.9, Eos % (Auto) 1.1, Baso % (Auto) 0.6, Absolute Neuts (auto) 5.9, Absolute Lymphs (auto) 1.46, Nucleated RBC % 0 10/05/19 06:12: Sodium 135 L, Potassium 5.0, Chloride 103, Carbon Dioxide 25.0, Anion Gap 7, BUN 14, Creatinine 0.66, Estim Creat Clear Calc 41.45, Est GFR (MDRD) Af Amer 112, Est GFR (MDRD) Non-Af 93, BUN/Creatinine Ratio 21.1 H, Glucose 220 H, Calcium 8.6 10/05/19 07:41: POC Glucose 202 H 10/05/19 11:06: POC Glucose 270 H Current Medications Acetaminophen (Tylenol) 650 mg PO Q6H PRN PRN PRN Reason: Pain Score 1-10/Temp > 100.7 F Albuterol Sulfate (Ventolin Aerosols) 2.5 mg INHALATION Q2H PRN PRN PRN Reason: Dyspnea, wheezing Budesonide (Pulmicort Aerosol) 0.5 mg INHALATION Q12H.RT [facility] Last Admin: 10/05/19 07:09 Dose: 0.5 mg Documented by: Carbamazepine (Tegretol) 200 mg PO BID [facility] Last Admin: 10/05/19 07:59 Dose: 200 mg Documented by: Dextrose (D50w Syringe) 0 gm IV X1 PRN; Protocol PRN Reason: Hypoglycemia Enoxaparin Sodium (Lovenox) 40 mg SC DAILY [facility] Last Admin: 10/05/19 07:59 Dose: 40 mg Documented by: Ergocalciferol (Vitamin D) 50,000 unit PO SuWe@1000 [facility] Glucagon () 1 mg IM .X1 PRN PRN Reason: Hypoglycemia Sodium Chloride () 250 mls @ 15 mls/hr IV .[id number] PRN PRN Reason: Saline Flush Last Infusion: 10/04/19 23:20 Dose: 0 mls/hr Documented by: Sodium Chloride () 250 mls @ 15 mls/hr IV .[id number] PRN PRN Reason: Additional IVPB Infusion Insulin Human Lispro (Humalog Kwikpen (Bk)) 0 unit SC TIDAC [facility]; Protocol Last Admin: 10/05/19 11:07 Dose: 4 u Documented by: Insulin Human Regular (Humulin R U-500 (Bkc)) 85 units SC BIDAC [facility] Last Admin: 10/05/19 07:56 Dose: 85 u Documented by: Methylprednisolone (Solu-Medrol) 40 mg IV Q8 [facility] Last Admin: 10/05/19 06:17 Dose: 40 mg Documented by: Nadolol (Corgard) 40 mg PO DAILY [facility] Last Admin: 10/05/19 07:59 Dose: 40 mg Documented by: Non-Formulary Medication (Methylphenidate Hcl [Methylphenidate Er]) 20 mg PO BID [facility] Nystatin (Mycostatin Powder) 1 applic TOPICAL BID [facility]; Protocol Last Admin: 10/05/19 07:59 Dose: 1 applicatio Documented by: Ondansetron HCl (Zofran Odt) 4 mg PO Q8H PRN PRN PRN Reason: NAUSEA Paroxetine HCl (Paxil) 40 mg PO DAILY [facility] Last Admin: 10/05/19 07:59 Dose: 40 mg Documented by: Potassium Chloride (K-Dur) 10 meq PO DAILYCM [facility] Last Admin: 10/05/19 07:59 Dose: 10 meq Documented by: Pramipexole Dihydrochloride (Mirapex) 0.5 mg PO QHS [facility] Last Admin: 10/04/19 21:06 Dose: 0.5 mg Documented by: Sodium Chloride () 10 - 40 ml IV UD PRN PRN Reason: SALINE FLUSH Medical Necessity - Tobacco Use Smoking Status: Former smoker Assessment/Plan All Active Problems Asthmatic bronchitis (Acute) Suspected 2019-nCoV infection (Acute) Lactic acidosis (Acute) Complicated UTI (urinary tract infection) (Acute) Acute delirium (Acute) USAMA (acute kidney injury) (Acute) Hypokalemia (Acute) Sepsis (Acute) Acute metabolic encephalopathy (Acute) UTI (urinary tract infection) (Acute) Acute severe exacerbation of asthma (Resolved) Staphylococcal pneumonia (Ruled-out) Streptococcal pneumonia (Ruled-out) Acute and chronic respiratory failure with hypoxia (Ruled-out) Cellulitis of right breast (Ruled-out) Influenza (Ruled-out) Acute asthma exacerbation (Resolved) 1. Sepsis: Lactic acid is elevated though it cannot be delineated whether that may be due to sepsis or component of her respiratory distress due to her underlying asthma as well. Patient is otherwise hemodynamically stable and, at this time, I do not feel that this time that she would defervesce acutely. Etiology I suspect may be pneumonia though patient does have apparently otitis media and sinus infection which could be exacerbating this. Will put the patient on levofloxacin given her known history of a beta-lactam allergy and monitor. Follow-up cultures. Blood cultures were performed in the emergency room. COVID-19 testing was also performed. COVID-19 testing likely will be sent out until the and may be 24 to 48 hours before those results are back. 2. Suspected pneumococcal pneumonia, as above, cannot delineate if this definitive pneumonia or just her being sick from what was told her is an otitis media. Due to the for personal protective equipment, I was unable to visualize left tympanic membrane but was told by Dr. Zimmerman that she had otitis media. Patient will be on Levaquin for pneumonia. Will check urinary antigens for strep coccus Legionella. Check sputum culture. 3. Acute asthma exacerbation: We will put the patient on her home dose of bronchodilators as well is methylprednisolone. 88% on RA. 4. Diabetes mellitus type 2: Patient on U5 100 at home. Will continue with her home regimen and as well as signed scale insulin. Make changes accordingly as the steroids are likely exacerbate her diabetes and lead to hyperglycemia potentially. 5. VTE prophylaxis: Moderate risk. Low molecular weight heparin 6. Advanced care planning: Discussed with patient. Patient wishes to be full CODE STATUS at this time. Patient states that she does have a living will and would not want to be in a vegetative state if her situation were to come to that. Inpatient E&M: 97142 Subs Hosp L2
[2019-10-05] MEDS: 0.9% Saline Lock 10 ML Syringe IV ×2 (14:39→23:08)
[2019-10-05] MEDS: Loperamide 2 MG Capsule PO (14:40)
[2019-10-05] MEDS: Ondansetron ODT 4 MG Tablet PO (14:41)
[2019-10-05] MEDS: Albuterol 2.5 MG/3 ML VIAL.NEB. INHALATION (20:03)
[2019-10-05] MEDS: Pramipexole Di-HCl 0.5 MG Tablet PO (23:08)
[2019-10-05] MEDS: Calcium Carbonate 500 MG Tablet PO (23:18)
[2019-10-05 23:36] LABS: Bedside Glucose 189 mg/dL (70-110)
[2019-10-06] VITALS (8 sets, daily range): BP systolic 133–177; BP diastolic 68–86; PULSE 69–90; RESP 16–20; TEMP 36.4–36.8; O2SAT 94–98
[2019-10-06 00:26] LABS: Bedside Glucose 290 mg/dL (70-110)
[2019-10-06] MEDS: Loperamide 2 MG Capsule PO (03:35)
[2019-10-06] MEDS: 0.9% Saline Lock 10 ML Syringe IV ×3 (06:50→21:47)
[2019-10-06] MEDS: Insulin Lispro 100 UNIT/ML INSULN.PEN SC ×2 (06:50→11:59)
[2019-10-06] MEDS: Budesonide Respules 0.5 MG/2 ML AMPUL.NEB. INHALATION ×2 (07:29→18:20)
[2019-10-06] MEDS: Albuterol 2.5 MG/3 ML VIAL.NEB. INHALATION ×2 (07:29→18:20)
[2019-10-06] MEDS: carBAMazepine 200 MG Tablet PO ×2 (08:27→21:48)
[2019-10-06] MEDS: Paroxetine 20 MG Tablet 40 MG PO (08:27)
[2019-10-06] MEDS: Ondansetron ODT 4 MG Tablet PO (08:27)
[2019-10-06] MEDS: Enoxaparin 40 MG/0.4 ML Syringe SC (08:27)
[2019-10-06 08:40] LABS: Bedside Glucose 171 mg/dL (70-110)
[2019-10-06] MEDS: Nystatin Powder 15gm Bottle 1 APPLIC TOPICAL ×2 (10:42→21:48)
[2019-10-06] MEDS: Nadolol 40 MG Tablet PO (10:43)
--- NOTE | 2019-10-06 11:15 | PN_ITS ---
Patient Problems: Active and Suspected Problems Asthmatic bronchitis (Acute) Suspected 2019-nCoV infection (Acute) Lactic acidosis (Acute) Reason for Visit: asthma Subjective: still short of breath. diarrhea, chronic. Vitals/I&O's: Vital Signs Temp Pulse Resp BP Pulse Ox 36.6 C 72 16 177/85 H 95 10/06/19 08:23 10/06/19 08:23 10/06/19 08:23 10/06/19 08:23 10/06/19 08:23 Oxygen Flow Rate (L/min) 2 Oxygen Delivery Method Nasal Cannula Weight: 137.892 kg Body Mass Index (BMI) 53.8 Finger Stick Blood Glucose 154 Intake and Output for Last 24 Hours 10/04/19 10/05/19 10/06/19 23:59 23:59 23:59 Intake Total 193 / 193 650 / 650 560 / 560 Output Total 600 / 600 Balance 193 / 193 50 / 50 560 / 560 General: Alert, No apparent distress HEENT: Atraumatic, Normocephalic Oral: Moist Mucosa, No Gingival or Mucosal Lesions/ Ulcerations Neck: No Nodes, Trachea Midline Lungs: Wheezes Cardiovascular: Regular rate, Regular Rhythm, Normal S1, Normal S2 Abdomen: Bowel Sounds Present, Soft, Non Tender, Non-Distended, Obese Psych/Mental Status: Normal Affect, Appropriate Microbiology Past 72 Hours 10/05/19 07:50 Sputum, Expectorated/Coughed Gram Stain - Final 10/05/19 07:50 Urine, Clean Catch Streptococcus pneumoniae Antigen (M - Final 10/05/19 07:50 Urine, Clean Catch Legionella Antigen - Final Laboratory Results 10/04/19 17:55: COVID-19 (REBEKA) Pending 10/05/19 11:06: POC Glucose 270 H 10/05/19 16:15: POC Glucose 290 H 10/05/19 23:04: POC Glucose 189 H 10/06/19 06:41: POC Glucose 171 H Current Medications Acetaminophen (Tylenol) 650 mg PO Q6H PRN PRN PRN Reason: Pain Score 1-10/Temp > 100.7 F Albuterol Sulfate (Ventolin Aerosols) 2.5 mg INHALATION Q2H PRN PRN PRN Reason: Dyspnea, wheezing Last Admin: 10/06/19 07:29 Dose: 2.5 mg Documented by: Budesonide (Pulmicort Aerosol) 0.5 mg INHALATION Q12H.RT [facility] Last Admin: 10/06/19 07:29 Dose: 0.5 mg Documented by: Calcium Carbonate (Tums) 500 mg PO Q4H PRN PRN PRN Reason: INDIGESTION Last Admin: 10/05/19 23:18 Dose: 500 mg Documented by: Carbamazepine (Tegretol) 200 mg PO BID [facility] Last Admin: 10/06/19 08:27 Dose: 200 mg Documented by: Dextrose (D50w Syringe) 0 gm IV X1 PRN; Protocol PRN Reason: Hypoglycemia Enoxaparin Sodium (Lovenox) 40 mg SC DAILY [facility] Last Admin: 10/06/19 08:27 Dose: 40 mg Documented by: Ergocalciferol (Vitamin D) 50,000 unit PO SuWe@1000 [facility] Glucagon () 1 mg IM .X1 PRN PRN Reason: Hypoglycemia Sodium Chloride () 250 mls @ 15 mls/hr IV .[id number] PRN PRN Reason: Saline Flush Last Infusion: 10/04/19 23:20 Dose: 0 mls/hr Documented by: Sodium Chloride () 250 mls @ 15 mls/hr IV .[id number] PRN PRN Reason: Additional IVPB Infusion Insulin Human Lispro (Humalog Kwikpen ([facility])) 0 unit SC TIDAC [facility]; Protocol Last Admin: 10/06/19 06:50 Dose: 1 u Documented by: Insulin Human Regular (Humulin R U-500 (Bk)) 85 units SC BIDAC [facility] Last Admin: 10/06/19 08:30 Dose: 85 u Documented by: Loperamide HCl (Imodium) 2 mg PO Q4H PRN PRN PRN Reason: DIARRHEA Last Admin: 10/06/19 03:35 Dose: 2 mg Documented by: Methylprednisolone (Solu-Medrol) 40 mg IV Q8 [facility] Last Admin: 10/06/19 06:50 Dose: 40 mg Documented by: Nadolol (Corgard) 40 mg PO DAILY [facility] Last Admin: 10/06/19 10:43 Dose: 40 mg Documented by: Non-Formulary Medication (Methylphenidate Hcl [Methylphenidate Er]) 20 mg PO BID [facility] Nystatin (Mycostatin Powder) 1 applic TOPICAL BID [facility]; Protocol Last Admin: 10/06/19 10:42 Dose: 1 applicatio Documented by: Ondansetron HCl (Zofran Odt) 4 mg PO Q8H PRN PRN PRN Reason: NAUSEA Last Admin: 10/06/19 08:27 Dose: 4 mg Documented by: Paroxetine HCl (Paxil) 40 mg PO DAILY [facility] Last Admin: 10/06/19 08:27 Dose: 40 mg Documented by: Potassium Chloride (K-Dur) 10 meq PO DAILYCM [facility] Last Admin: 10/06/19 10:43 Dose: 10 meq Documented by: Pramipexole Dihydrochloride (Mirapex) 0.5 mg PO QHS [facility] Last Admin: 10/05/19 23:08 Dose: 0.5 mg Documented by: Sodium Chloride () 10 - 40 ml IV UD PRN PRN Reason: SALINE FLUSH Last Admin: 10/06/19 06:50 Dose: 10 ml Documented by: STROKE Vital Signs/Narrative: Vital Signs Temp Pulse Resp BP Pulse Ox 10/06/19 08:23 36.6 C 72 16 177/85 H 95 10/06/19 08:20 90 10/06/19 07:29 74 20 H 94 Medical Necessity - Tobacco Use Smoking Status: Former smoker Assessment/Plan All Active Problems Asthmatic bronchitis (Acute) Suspected 2019-nCoV infection (Acute) Lactic acidosis (Acute) Complicated UTI (urinary tract infection) (Acute) Acute delirium (Acute) USAMA (acute kidney injury) (Acute) Hypokalemia (Acute) Sepsis (Acute) Acute metabolic encephalopathy (Acute) UTI (urinary tract infection) (Acute) Acute severe exacerbation of asthma (Resolved) Staphylococcal pneumonia (Ruled-out) Streptococcal pneumonia (Ruled-out) Acute and chronic respiratory failure with hypoxia (Ruled-out) Cellulitis of right breast (Ruled-out) Influenza (Ruled-out) Acute asthma exacerbation (Resolved) 1. Sepsis: Lactic acid is elevated though it cannot be delineated whether that may be due to sepsis or component of her respiratory distress due to her underlying asthma as well. Patient is otherwise hemodynamically stable and, at this time, I do not feel that this time that she would defervesce acutely. Etiology I suspect may be pneumonia though patient does have apparently otitis media and sinus infection which could be exacerbating this. Will put the patient on levofloxacin given her known history of a beta-lactam allergy and monitor. Follow-up cultures. Blood cultures were performed in the emergency room. COVID-19 testing was also performed. COVID-19 testing likely will be sent out until the and may be 24 to 48 hours before those results are back. 2. Suspected pneumococcal pneumonia, as above, cannot delineate if this definitive pneumonia or just her being sick from what was told her is an otitis media. Due to the for personal protective equipment, I was unable to visualize left tympanic membrane but was told by Dr. Zimmerman that she had otitis media. Patient will be on Levaquin for pneumonia. Will check urinary antigens for strep coccus Legionella. Check sputum culture. 3. Acute asthma exacerbation: We will put the patient on her home dose of bronchodilators as well is methylprednisolone. 88% on RA. 4. Diabetes mellitus type 2: Patient on U500 at home. Will continue with her home regimen and as well as signed scale insulin. Make changes accordingly as the steroids are likely exacerbate her diabetes and lead to hyperglycemia potentially. 5. VTE prophylaxis: Moderate risk. Low molecular weight heparin 6. Advanced care planning: Discussed with patient. Patient wishes to be full CODE STATUS at this time. Patient states that she does have a living will and would not want to be in a vegetative state if her situation were to come to that. 7. Diarrhea: chronic. Doubt Cdiff. on Loperamide Inpatient E&M: 25597 Subs Hosp L2
[2019-10-06] MEDS: levoFLOXacin 500 MG Tablet PO (11:59)
[2019-10-06 12:15] LABS: Bedside Glucose 241 mg/dL (70-110)
[2019-10-06] MEDS: Calcium Carbonate 500 MG Tablet PO (15:59)
[2019-10-06 17:46] LABS: Bedside Glucose 138 mg/dL (70-110)
[2019-10-06] MEDS: Pramipexole Di-HCl 0.5 MG Tablet PO (21:48)
[2019-10-06 22:01] LABS: Bedside Glucose 153 mg/dL (70-110)
[2019-10-07] VITALS (7 sets, daily range): BP systolic 151–177; BP diastolic 81–92; PULSE 67–82; RESP 16–18; TEMP 36.5–36.9; O2SAT 94–100
[2019-10-07] MEDS: levoFLOXacin 250 MG Tablet PO (06:38)
[2019-10-07] MEDS: 0.9% Saline Lock 10 ML Syringe IV ×2 (06:39→22:02)
[2019-10-07 06:51] LABS: Bedside Glucose 102 mg/dL (70-110)
[2019-10-07] MEDS: Budesonide Respules 0.5 MG/2 ML AMPUL.NEB. INHALATION (07:58)
[2019-10-07] MEDS: Nadolol 40 MG Tablet PO (09:59)
[2019-10-07] MEDS: carBAMazepine 200 MG Tablet PO ×2 (10:00→22:04)
[2019-10-07] MEDS: Paroxetine 20 MG Tablet 40 MG PO (10:00)
[2019-10-07] MEDS: Enoxaparin 40 MG/0.4 ML Syringe SC (10:03)
[2019-10-07] MEDS: Nystatin Powder 15gm Bottle 1 APPLIC TOPICAL ×2 (10:04→22:01)
--- NOTE | 2019-10-07 11:24 | PN_ITS ---
Patient Problems: Active and Suspected Problems Asthmatic bronchitis (Acute) Suspected 2019-nCoV infection (Acute) Lactic acidosis (Acute) Reason for Visit: asthma Subjective: Breathing better. No abdominal pain. Vitals/I&O's: Vital Signs Temp Pulse Resp BP Pulse Ox 36.9 C 67 18 177/84 H 99 10/07/19 09:40 10/07/19 09:40 10/07/19 09:40 10/07/19 09:40 10/07/19 09:40 Oxygen Flow Rate (L/min) 2 Oxygen Delivery Method Nasal Cannula Weight: 137.892 kg Body Mass Index (BMI) 53.8 Finger Stick Blood Glucose 154 Intake and Output for Last 24 Hours 10/05/19 10/06/19 10/07/19 23:59 23:59 23:59 Intake Total 650 / 650 560 / 560 840 / 840 Output Total 600 / 600 Balance 50 / 50 560 / 560 840 / 840 General: Alert, No apparent distress HEENT: Atraumatic, Normocephalic Oral: Moist Mucosa, No Gingival or Mucosal Lesions/ Ulcerations Neck: No Nodes, Trachea Midline Lungs: Normal air movement, Wheezes - end-expriatory Cardiovascular: Regular rate, Regular Rhythm, Normal S1, Normal S2, No murmurs Abdomen: Bowel Sounds Present, Soft, Non Tender, Non-Distended, No Hepato- splenomegaly Extremities: No edema, No Calf Tenderness Skin: No rashes, No breakdown Musculoskeletal: No Tenderness to Palpation of Joints or Extremities, No Muscle Wasting Psych/Mental Status: Normal Affect, Appropriate Microbiology Past 72 Hours 10/04/19 18:10 Blood Culture (Wb) - Anticubital Left Blood Culture - Preliminary No growth in 48 hours. 10/04/19 17:05 Blood Culture (Wb) - Left Hand Blood Culture - Preliminary No growth in 48 hours. 10/05/19 07:50 Sputum, Expectorated/Coughed Gram Stain - Final 10/05/19 07:50 Sputum, Expectorated/Coughed Respiratory Culture - Preliminary Appears to be normal respiratory mary. Further studies to follow. 10/05/19 07:50 Urine, Clean Catch Streptococcus pneumoniae Antigen (M - Final 10/05/19 07:50 Urine, Clean Catch Legionella Antigen - Final Laboratory Results 10/06/19 11:55: POC Glucose 241 H 10/06/19 15:55: POC Glucose 138 H 10/06/19 21:41: POC Glucose 153 H 10/07/19 06:37: POC Glucose 102 Current Medications Acetaminophen (Tylenol) 650 mg PO Q6H PRN PRN PRN Reason: Pain Score 1-10/Temp > 100.7 F Albuterol Sulfate (Ventolin Aerosols) 2.5 mg INHALATION Q2H PRN PRN PRN Reason: Dyspnea, wheezing Last Admin: 10/06/19 18:20 Dose: 2.5 mg Documented by: Calcium Carbonate (Tums) 500 mg PO Q4H PRN PRN PRN Reason: INDIGESTION Last Admin: 10/06/19 15:59 Dose: 500 mg Documented by: Carbamazepine (Tegretol) 200 mg PO BID [facility] Last Admin: 10/07/19 10:00 Dose: 200 mg Documented by: Dextrose (D50w Syringe) 0 gm IV X1 PRN; Protocol PRN Reason: Hypoglycemia Enoxaparin Sodium (Lovenox) 40 mg SC DAILY [facility] Last Admin: 10/07/19 10:03 Dose: 40 mg Documented by: Ergocalciferol (Vitamin D) 50,000 unit PO SuWe@1000 [facility] Glucagon () 1 mg IM .X1 PRN PRN Reason: Hypoglycemia Sodium Chloride () 250 mls @ 15 mls/hr IV .[id number] PRN PRN Reason: Saline Flush Last Infusion: 10/04/19 23:20 Dose: 0 mls/hr Documented by: Sodium Chloride () 250 mls @ 15 mls/hr IV .[id number] PRN PRN Reason: Additional IVPB Infusion Insulin Human Lispro (Humalog Kwikpen (Bk)) 0 unit SC TIDAC [facility]; Protocol Last Admin: 10/07/19 06:37 Dose: Not Given Documented by: Insulin Human Regular (Humulin R U-500 (Bk)) 85 units SC BIDAC [facility] Last Admin: 10/07/19 10:03 Dose: 85 u Documented by: Levofloxacin (Levaquin Tablet) 250 mg PO DAILY@0600 [facility] Last Admin: 10/07/19 06:38 Dose: 250 mg Documented by: Loperamide HCl (Imodium) 2 mg PO Q4H PRN PRN PRN Reason: DIARRHEA Last Admin: 10/06/19 03:35 Dose: 2 mg Documented by: Methylprednisolone (Solu-Medrol) 40 mg IV Q12 [facility] Nadolol (Corgard) 40 mg PO DAILY [facility] Last Admin: 10/07/19 09:59 Dose: 40 mg Documented by: Nystatin (Mycostatin Powder) 1 applic TOPICAL BID [facility]; Protocol Last Admin: 10/07/19 10:04 Dose: 1 applicatio Documented by: Ondansetron HCl (Zofran Odt) 4 mg PO Q8H PRN PRN PRN Reason: NAUSEA Last Admin: 10/06/19 08:27 Dose: 4 mg Documented by: Paroxetine HCl (Paxil) 40 mg PO DAILY [facility] Last Admin: 10/07/19 10:00 Dose: 40 mg Documented by: Potassium Chloride (K-Dur) 10 meq PO DAILYCM [facility] Last Admin: 10/07/19 10:00 Dose: 10 meq Documented by: Pramipexole Dihydrochloride (Mirapex) 0.5 mg PO QHS [facility] Last Admin: 10/06/19 21:48 Dose: 0.5 mg Documented by: Sodium Chloride () 10 - 40 ml IV UD PRN PRN Reason: SALINE FLUSH Last Admin: 10/07/19 06:39 Dose: 10 ml Documented by: STROKE Vital Signs/Narrative: Vital Signs Temp Pulse Resp BP Pulse Ox 10/07/19 09:40 36.9 C 67 18 177/84 H 99 10/07/19 08:00 71 16 94 Medical Necessity - Tobacco Use Smoking Status: Former smoker Assessment/Plan All Active Problems Asthmatic bronchitis (Acute) Suspected 2019-nCoV infection (Acute) Lactic acidosis (Acute) Complicated UTI (urinary tract infection) (Acute) Acute delirium (Acute) USAMA (acute kidney injury) (Acute) Hypokalemia (Acute) Sepsis (Acute) Acute metabolic encephalopathy (Acute) UTI (urinary tract infection) (Acute) Acute severe exacerbation of asthma (Resolved) Staphylococcal pneumonia (Ruled-out) Streptococcal pneumonia (Ruled-out) Acute and chronic respiratory failure with hypoxia (Ruled-out) Cellulitis of right breast (Ruled-out) Influenza (Ruled-out) Acute asthma exacerbation (Resolved) 1. Sepsis: * clincally improving * Lactic acid is elevated though it cannot be delineated whether that may be due to sepsis or component of her respiratory distress due to her underlying asthma as well. Patient is otherwise hemodynamically stable and, at this time, I do not feel that this time that she would defervesce acutely. * Etiology I suspect may be pneumonia though patient does have apparently otitis media and sinus infection which could be exacerbating this. * Will put the patient on levofloxacin given her known history of a beta-lactam allergy and monitor. Follow-up cultures. Blood cultures were performed in the emergency room. * COVID-19 testing was also performed. COVID-19 testing likely will be sent out until the and may be 24 to 48 hours before those results are back. Low likelihood of COVID-19. * BCx negative 2. Suspected pneumococcal pneumonia, * as above, cannot delineate if this definitive pneumonia or just her being sick from what was told her is an otitis media. * Due to the for personal protective equipment, I was unable to visualize left tympanic membrane but was told by Dr. Zimmerman that she had otitis media. Patient will be on Levaquin for pneumonia. * SCx, Strep and legionella antigens negative. 3. Acute asthma exacerbation: * improved * wean methylpred to BID * if improved 5/3, then could discharge * on Oxygen QHS at home. * check ambulatory pulse ox prior to discharge 4. Diabetes mellitus type 2: Patient on U500 at home. Will continue with her home regimen and as well as signed scale insulin. Make changes accordingly as the steroids are likely exacerbate her diabetes and lead to hyperglycemia potentially. 5. VTE prophylaxis: Moderate risk. Low molecular weight heparin 6. Advanced care planning: Discussed with patient. Patient wishes to be full CODE STATUS at this time. Patient states that she does have a living will and would not want to be in a vegetative state if her situation were to come to that. 7. Diarrhea: chronic. Doubt Cdiff. on Loperamide Inpatient E&M: 50331 Subs Hosp L2
[2019-10-07] MEDS: Insulin Lispro 100 UNIT/ML INSULN.PEN SC ×2 (11:57→17:46)
[2019-10-07 12:56] LABS: Bedside Glucose 256 mg/dL (70-110)
[2019-10-07 17:30] LABS: Bedside Glucose 157 mg/dL (70-110)
[2019-10-07] MEDS: Pramipexole Di-HCl 0.5 MG Tablet PO (22:04)
[2019-10-07 22:36] LABS: Bedside Glucose 145 mg/dL (70-110)
[2019-10-08 04:00] VITALS: BP 137/77; PULSE 79; RESP 16; TEMP 36.7; O2SAT 100
[2019-10-08 04:16] LABS: Bedside Glucose 120 mg/dL (70-110)
[2019-10-08] MEDS: levoFLOXacin 250 MG Tablet PO (05:18)
[2019-10-08 07:59] VITALS: O2SAT 97
--- NOTE | 2019-10-08 08:00 | DCINST_ITS ---
- Discharge Diagnoses Current Active Problems: Current Active and Chronic Problems Asthmatic bronchitis (Acute) Suspected 2018-nCoV infection (Acute) Lactic acidosis (Acute) You will use the following diet at home:: Calorie/Carbohydrate Controlled (specify 1200, 1400, etc) - 1800 Your food should be the consistency of: Regular Call your doctor if you observe: Fever of 101 or Higher, Shortness of breath Allergies/Adverse Reactions: Allergies adhesive tape Allergy (Verified 10/04/19 17:11) Unknown listed on pcp allergy list cefadroxil [From Duricef] Allergy (Verified 10/04/19 17:11) Unknown gluten Allergy (Verified 10/04/19 17:11) Other Celiac disease mesalamine [From Asacol] Allergy (Verified 10/04/19 17:11) Unknown listed on pcp allergy list omalizumab [From Xolair] Allergy (Verified 10/04/19 17:11) Unknown listed on pcp allergy list Sulfa (Sulfonamide Antibiotics) Allergy (Verified 10/04/19 17:11) Unknown oxycodone Adverse Reaction (Verified 10/04/19 17:11) Vomiting Medications to take at Discharge Cholecalciferol (Vitamin D3) [Vitamin D3] 50,000 unit PO SUWE@0800 06/01/17 Pramipexole Di-HCl [Mirapex] 0.5 mg PO QHS 06/01/17 Albuterol Aerosols [Ventolin Aerosols] 2.5 mg INHALATION Q2H PRN PRN #1 box 11/26/17 Albuterol IH (ProAir) [Proair Hfa] 2 puff INHALATION Q6H PRN PRN 03/25/18 Potassium Chloride [K-Dur] 10 meq PO DAILYCM #30 tablet 03/30/18 Budesonide [Rhinocort Allergy] 2 puff NARES DAILY 06/12/18 Ondansetron [Zofran Odt] 4 mg PO Q8H PRN PRN #10 tab 06/12/18 Carbamazepine 200 mg PO BID 03/01/19 Methylphenidate HCl [Methylphenidate ER] 20 mg PO BID 03/01/19 Nadolol [Corgard (Beta Tiffanie)] 40 mg PO DAILY 03/01/19 Paroxetine HCl [Paxil] 40 mg PO DAILY 03/01/19 Insulin U-500 [Humulin R U-500 (BKC)] 5 units SQ BID #1 pen 03/05/19 Nystatin Powder [Mycostatin Powder] 1 applic TOPICAL BID bottle 03/05/19 Loperamide [Imodium] 2 mg PO Q4H PRN PRN capsule 10/08/19 Prednisone 4 tab PO DAILY #20 tab.ds.pk 10/08/19 levoFLOXacin tablet [Levaquin tablet] 500 mg PO DAILY #5 tab 10/08/19 The following prescriptions were given: levoFLOXacin tablet [Levaquin tablet] 500 mg PO DAILY #5 tab Transmission Status: Pending to ERN[facility] Prednisone 4 tab PO DAILY #20 tab.ds.pk [facility]: [facility] Primary Care Physician: Senait Jay MD [Primary Care Provider] - Within 2 Weeks Test Results: Test results from this visit will be discussed in further detail at your follow- up appointment, if applicable.
--- NOTE | 2019-10-08 08:02 | DS.PCM_ITS ---
Discharge Date and Diagnosis - Problem List Patient Problems: Active and Suspected Problems Asthmatic bronchitis (Acute) Lactic acidosis (Acute) Date of Admission: 10/04/19 Date of Discharge: 10/08/19 - Primary Discharge Diagnosis Active and Suspected Problems 1. Sepsis: * clincally improving * Lactic acid is elevated though it cannot be delineated whether that may be due to sepsis or component of her respiratory distress due to her underlying asthma as well. Patient is otherwise hemodynamically stable and, at this time, I do not feel that this time that she would defervesce acutely. * Etiology I suspect may be pneumonia though patient does have apparently otitis media and sinus infection which could be exacerbating this. * Will put the patient on levofloxacin given her known history of a beta-lactam allergy and monitor. Follow-up cultures. Blood cultures were performed in the emergency room. * COVID-19 negative * BCx negative 2. Suspected pneumococcal pneumonia, * as above, cannot delineate if this definitive pneumonia or just her being sick from what was told her is an otitis media. * Due to the for personal protective equipment, I was unable to visualize left tympanic membrane but was told by Dr. Zimmerman that she had otitis media. Patient will be on Levaquin for pneumonia. * SCx, Strep and legionella antigens negative. * DC with levofloxacin 3. Acute asthma exacerbation: * improved * wean methylpred to BID * if improved 5/3, then could discharge * on Oxygen QHS at home. * check ambulatory pulse ox prior to discharge - Secondary Discharge Diagnosis Chronic Problems Chronic respiratory failure with hypoxia (Chronic) Breast cancer, right breast (Chronic) Vitamin D deficiency (Chronic) Hypertension (Chronic) Diabetes mellitus (Chronic) Allergic rhinitis (Chronic) GERD (gastroesophageal reflux disease) (Chronic) Restless leg syndrome (Chronic) Body mass index (BMI) 50-59.9, adult (Chronic) Migraine headache (Chronic) Obstructive sleep apnea (Chronic) Osteoarthritis (Chronic) Celiac disease (Chronic) Asthma (Chronic) BMI 50.0-59.9, adult (Chronic) History of right breast cancer (Chronic) Sleep apnea (Chronic) Diabetes mellitus, type II (Chronic) Anxiety and depression (Chronic) Hospital Course and Treatment Imaging Results: Clinical Impression(s) from Imaging Studies Chest X-Ray 10/04/19 17:25 IMPRESSION: Prominence of the interstitial markings in both lower lobes likely chronic however if concern for acute inflammatory disease CT may be helpful for further evaluation Electronically Signed: Santana Beal MD at 17:37 EDT , Service support , Operations: None Procedures: None Summary of Care Provided: The patient is a 74 year old F presents with shortness of breath. Concern is for pneumonia patient was recently diagnosed with otitis media and sinus infection through her ENT doctor. Patient was started on Levaquin as well as methylprednisolone and bronchodilators. Overall, patient steadily improved. Patient was checked for COVID-19 adventure did come back as negative. Today, the patient is feeling overall better and will be discharged home. Patient will have his amatory pulse ox checked. Patient states that she has a condenser as well as oxygen tanks at home but uses oxygen primarily just at night. Will see if she requires it more throughout the day. But overall patient is stable and ready for discharge home. [] Patient Problems: Active and Suspected Problems Asthmatic bronchitis (Acute) Lactic acidosis (Acute) - Physical Exam Vitals/I&O's: Vital Signs Temp Pulse Resp BP Pulse Ox 36.7 C 79 16 137/77 H 100 10/08/19 04:00 10/08/19 04:00 10/08/19 04:00 10/08/19 04:00 10/08/19 04:00 Oxygen Flow Rate (L/min) 2 Oxygen Delivery Method Nasal Cannula Weight: 137.892 kg Body Mass Index (BMI) 53.8 Finger Stick Blood Glucose 154 Intake and Output for Last 24 Hours 10/06/19 10/07/19 10/08/19 23:59 23:59 23:59 Intake Total 560 / 560 1999 100 / 100 Balance 560 / 560 1999 100 / General: Alert, No apparent distress HEENT: Atraumatic, Normocephalic Lungs: Clear to auscultation, Normal air movement, Wheezes Cardiovascular: Regular rate, Regular Rhythm, Normal S1, Normal S2, No murmurs Abdomen: Bowel Sounds Present, Soft, Non Tender, Non-Distended, No Hepato- splenomegaly Extremities: No edema, No Calf Tenderness Microbiology Past 72 Hours 10/05/19 07:50 Sputum, Expectorated/Coughed Gram Stain - Final 10/05/19 07:50 Sputum, Expectorated/Coughed Respiratory Culture - Final Presumptive C albicans Mixed Culture 10/04/19 18:10 Blood Culture (Wb) - Anticubital Left Blood Culture - Preliminary No growth in 48 hours. 10/04/19 17:05 Blood Culture (Wb) - Left Hand Blood Culture - Preliminary No growth in 48 hours. 10/05/19 07:50 Urine, Clean Catch Streptococcus pneumoniae Antigen (M - Final 10/05/19 07:50 Urine, Clean Catch Legionella Antigen - Final Laboratory Results 10/04/19 17:55: COVID-19 (REBEKA) Not Detected 10/07/19 11:55: POC Glucose 256 H 10/07/19 17:08: POC Glucose 157 H 10/07/19 22:01: POC Glucose 145 H 10/08/19 04:07: POC Glucose 120 H Current Medications Acetaminophen (Tylenol) 650 mg PO Q6H PRN PRN PRN Reason: Pain Score 1-10/Temp > 100.7 F Albuterol Sulfate (Ventolin Aerosols) 2.5 mg INHALATION Q2H PRN PRN PRN Reason: Dyspnea, wheezing Last Admin: 10/06/19 18:20 Dose: 2.5 mg Documented by: Calcium Carbonate (Tums) 500 mg PO Q4H PRN PRN PRN Reason: INDIGESTION Last Admin: 10/06/19 15:59 Dose: 500 mg Documented by: Carbamazepine (Tegretol) 200 mg PO BID [facility] Last Admin: 10/07/19 22:04 Dose: 200 mg Documented by: Dextrose (D50w Syringe) 0 gm IV X1 PRN; Protocol PRN Reason: Hypoglycemia Enoxaparin Sodium (Lovenox) 40 mg SC DAILY [facility] Last Admin: 10/07/19 10:03 Dose: 40 mg Documented by: Ergocalciferol (Vitamin D) 50,000 unit PO SuWe@1000 [facility] Glucagon () 1 mg IM .X1 PRN PRN Reason: Hypoglycemia Sodium Chloride () 250 mls @ 15 mls/hr IV .[id number] PRN PRN Reason: Saline Flush Last Infusion: 10/04/19 23:20 Dose: 0 mls/hr Documented by: Sodium Chloride () 250 mls @ 15 mls/hr IV .[id number] PRN PRN Reason: Additional IVPB Infusion Insulin Human Lispro (Humalog Kwikpen ([facility])) 0 unit SC TIDAC [facility]; Protocol Last Admin: 10/07/19 17:46 Dose: 1 units Documented by: Insulin Human Regular (Humulin R U-500 ([facility])) 85 units SC BIDAC [facility] Last Admin: 10/07/19 17:46 Dose: 85 u Documented by: Levofloxacin (Levaquin Tablet) 250 mg PO DAILY@0600 [facility] Last Admin: 10/08/19 05:18 Dose: 250 mg Documented by: Loperamide HCl (Imodium) 2 mg PO Q4H PRN PRN PRN Reason: DIARRHEA Last Admin: 10/06/19 03:35 Dose: 2 mg Documented by: Methylprednisolone (Solu-Medrol) 40 mg IV Q12 [facility] Last Admin: 10/07/19 22:02 Dose: 40 mg Documented by: Nadolol (Corgard) 40 mg PO DAILY [facility] Last Admin: 10/07/19 09:59 Dose: 40 mg Documented by: Nystatin (Mycostatin Powder) 1 applic TOPICAL BID [facility]; Protocol Last Admin: 10/07/19 22:01 Dose: 1 applicatio Documented by: Ondansetron HCl (Zofran Odt) 4 mg PO Q8H PRN PRN PRN Reason: NAUSEA Last Admin: 10/06/19 08:27 Dose: 4 mg Documented by: Paroxetine HCl (Paxil) 40 mg PO DAILY [facility] Last Admin: 10/07/19 10:00 Dose: 40 mg Documented by: Potassium Chloride (K-Dur) 10 meq PO DAILYCM [facility] Last Admin: 10/07/19 10:00 Dose: 10 meq Documented by: Pramipexole Dihydrochloride (Mirapex) 0.5 mg PO QHS [facility] Last Admin: 10/07/19 22:04 Dose: 0.5 mg Documented by: Sodium Chloride () 10 - 40 ml IV UD PRN PRN Reason: SALINE FLUSH Last Admin: 10/07/19 22:02 Dose: 10 ml Documented by: Discharge Diet: No Restrictions Call your doctor if you observe: Fever of 101 or Higher, Shortness of breath Home Medications: Medications to take at Discharge Cholecalciferol (Vitamin D3) [Vitamin D3] 50,000 unit PO SUWE@0800 06/01/17 Pramipexole Di-HCl [Mirapex] 0.5 mg PO QHS 06/01/17 Albuterol Aerosols [Ventolin Aerosols] 2.5 mg INHALATION Q2H PRN PRN #1 box 11/26/17 Albuterol IH (ProAir) [Proair Hfa] 2 puff INHALATION Q6H PRN PRN 03/25/18 Potassium Chloride [K-Dur] 10 meq PO DAILYCM #30 tablet 03/30/18 Budesonide [Rhinocort Allergy] 2 puff NARES DAILY 06/12/18 Ondansetron [Zofran Odt] 4 mg PO Q8H PRN PRN #10 tab 06/12/18 Carbamazepine 200 mg PO BID 03/01/19 Methylphenidate HCl [Methylphenidate ER] 20 mg PO BID 03/01/19 Nadolol [Corgard (Beta Tiffanie)] 40 mg PO DAILY 03/01/19 Paroxetine HCl [Paxil] 40 mg PO DAILY 03/01/19 Insulin U-500 [Humulin R U-500 (BKC)] 5 units SQ BID #1 pen 03/05/19 Nystatin Powder [Mycostatin Powder] 1 applic TOPICAL BID bottle 03/05/19 Loperamide [Imodium] 2 mg PO Q4H PRN PRN capsule 10/08/19 Prednisone 4 tab PO DAILY #20 tab.ds.pk 10/08/19 levoFLOXacin tablet [Levaquin tablet] 500 mg PO DAILY #5 tab 10/08/19 Following Prescrptions Were Given to Patient: levoFLOXacin tablet [Levaquin tablet] 500 mg PO DAILY #5 tab Transmission Status: Pending to [facility] Prednisone 4 tab PO DAILY #20 tab.ds.pk Transmission Status: Pending to [facility] Primary Care Physician: Senait Jay MD [Primary Care Provider] - Within 2 Weeks Disposition: Home Minutes spent on discharge:: 35 Patient Condition:: Fair Medical Necessity - Tobacco Use Smoking Status: Former smoker Meaningful Use Info Meaningful Use Diagnoses (Choose all that apply): None applicable Inpatient E&M: [id number] [facility]
[2019-10-08 08:28] VITALS: BP 138/66; PULSE 87; RESP 18; TEMP 37.2; O2SAT 97
[2019-10-08 08:44] VITALS: O2SAT 94
[2019-10-08 08:51] LABS: Bedside Glucose 130 mg/dL (70-110)
[2019-10-08] MEDS: Enoxaparin 40 MG/0.4 ML Syringe SC (10:47)
[2019-10-08] MEDS: Nadolol 40 MG Tablet PO (10:48)
[2019-10-08] MEDS: Paroxetine 20 MG Tablet 40 MG PO (10:49)
[2019-10-08] MEDS: carBAMazepine 200 MG Tablet PO (10:50)
[2019-10-08 12:20] LABS: Bedside Glucose 96 mg/dL (70-110)
[2019-10-08 12:45] VITALS: BP 136/63; PULSE 66; RESP 18; TEMP 36.7; O2SAT 94
--- NOTE | 2019-10-09 11:15 | CASEMGMT ---
JASWINDER PLASCENCIA Discharge Follow-up Phone Call: RASHEL: Lc Strata: 3 Call Date: 10/09/19 Discharge Date: 10/08/19 Time of Call: 1110 Duration: 4 min Admitting Diagnosis:Asthma Exacerbation JASWINDER PLASCENCIA completed follow-up phone call after recent hospitalization. Patient states she is doing ok. Patient had no concerns regarding discharge instructions. Patient was able to fill prescriptions without any issues. Patient aware to call to schedule follow-up appt with PCP. Patient had no further needs or concerns at this time.
== END 2019-10-08 12:45 | disposition home or self-care (01) | DRG 871 ==
LOC: ED 18:09 → MS2 18:29 → MS3 10-07 20:24
PROVIDERS: Emergency Provider Emergency Medicine; PCP Internal Medicine
DX: A41.9 Sepsis, unspecified organism (principal); J13 Pneumonia due to Streptococcus pneumoniae; J45.901 Unspecified asthma with (acute) exacerbation; J96.11 Chronic respiratory failure with hypoxia; Z68.43 Body mass index [BMI] 50.0-59.9, adult; H66.92 Otitis media, unspecified, left ear; E55.9 Vitamin D deficiency, unspecified; I10 Essential (primary) hypertension; E11.9 Type 2 diabetes mellitus without complications; K21.9 Gastro-esophageal reflux disease without esophagitis; G25.81 Restless legs syndrome; G43.909 Migraine, unspecified, not intractable, without status migrainosus; G47.33 Obstructive sleep apnea (adult) (pediatric); M19.90 Unspecified osteoarthritis, unspecified site; K90.0 Celiac disease; F32.9 Major depressive disorder, single episode, unspecified; F41.9 Anxiety disorder, unspecified; E66.01 Morbid (severe) obesity due to excess calories; Z71.3 Dietary counseling and surveillance; Z79.4 Long term (current) use of insulin; Z79.899 Other long term (current) drug therapy; Z87.891 Personal history of nicotine dependence
CPT/HCPCS: 36415; 71045; 80048; 80053; 82962; 83605; 85025; 85610; 85730; 87040; 87070; 87106; 87205; 87449; 87635; 93005; 94640; 94760; 99285; G2023; J7050; A4216; U0004

== ENCOUNTER → 2019-12-15 17:36 | Outpatient (CLI) | payer MEDICARE, SELFPAY ==
[2019-10-04 19:14] VITALS: BMI 53.8
== END ==
PROVIDERS: PCP Internal Medicine; Visit Provider Internal Medicine Pulmonary Disease
DX: R19.7 Diarrhea, unspecified (principal); R06.2 Wheezing; R06.00 Dyspnea, unspecified; R05 Cough
CPT/HCPCS: 87635; G2023; U0003

== ENCOUNTER 2020-03-22 15:07 | Emergency (ER) | payer MEDICARE, SELFPAY ==
[2019-10-04 19:14] VITALS: BMI 53.8
[2020-03-22 15:08] VITALS: BP 158/94; PULSE 69; RESP 15; TEMP 36.4; O2SAT 95; BMI 53.1
[2020-03-22 15:10] VITALS: BP 158/94; PULSE 68; RESP 15; TEMP 36.4; O2SAT 96
--- NOTE | 2020-03-22 15:28 | EKG12_ITS ---
Test Reason : CP Blood Pressure : / mmHG Vent. Rate : 066 BPM Atrial Rate : 066 BPM P-R Int : 190 ms QRS Dur : 080 ms QT Int : 382 ms P-R-T Axes : 038 018 089 degrees QTc Int : 400 ms Normal sinus rhythm with sinus arrhythmia Normal ECG Confirmed by JEFERSON RIVERA, GENIA ([id number]), avid editor CAROL VARGAS ([id number]) on 04/05/2020 9:46:00 A M Referred By: IJEOMA Confirmed By:BEAR GOVEA MD
[2020-03-22 15:32] VITALS: O2SAT 93
--- NOTE | 2020-03-22 15:36 | ED.VIS.GEN ---
History of Present Illness Chief Complaint: Chest Pain Informant: Patient Onset: Days Context: Sudden Onset Timing: Continuous Quality: Dyspnea, dyspnea exertion and cough x3 days, today pleuritic right-sided Location: Intermittent pleuritic pain right side with numbness fingers Current Severity: Mild Maximum Severity: Severe Worsened by: Walking up steps Relieved by: Nothing Associated Symptoms: Upper respiratory no loss of taste or smell Narrative: Patient is 74-year-old woman who quit smoking 40 years ago who presents with bronchitis. She was placed on prednisone. Onset 3 days ago. She now reports intermittent right-sided pleuritic chest pain that was associated with tingling in her fingers. She has no history of VTE. She was diagnosed with breast cancer 10 years ago had recurrence with mastectomy 2 years ago. She complains of shortness of breath and has dyspnea on exertion. She states she has to stop walking up the [facility]. She has no associated chest pain. She denies orthopnea or PND. She has no history of congestive heart failure. She does have a history obstructive sleep apnea and states she is compliant with use of her machine. She denies history of coronary disease or congestive heart failure. Prior similar symptoms: Yes - Bronchitis Recent Illness/Hospitalization: No - Past Medical History (1) Asthmatic bronchitis Status: Acute (2) Allergic rhinitis Status: Chronic (3) Anxiety and depression Status: Chronic (4) BMI 50.0-59.9, adult Status: Chronic (5) Breast cancer, right breast Status: Chronic (6) Celiac disease Status: Chronic (7) Diabetes mellitus, type II Status: Chronic (8) Hypertension Status: Chronic (9) Migraine headache Status: Chronic (10) Obstructive sleep apnea Status: Chronic (11) Osteoarthritis Status: Chronic (12) Restless leg syndrome Status: Chronic Past Medical History - Allergies and Home Meds Allergies/Adverse Reactions: Allergies adhesive tape Allergy (Verified 10/04/19 17:11) Unknown listed on pcp allergy list cefadroxil [From Duricef] Allergy (Verified 10/04/19 17:11) Unknown gluten Allergy (Verified 10/04/19 17:11) Other Celiac disease mesalamine [From Asacol] Allergy (Verified 10/04/19 17:11) Unknown listed on pcp allergy list omalizumab [From Xolair] Allergy (Verified 10/04/19 17:11) Unknown listed on pcp allergy list Sulfa (Sulfonamide Antibiotics) Allergy (Verified 10/04/19 17:11) Unknown oxycodone Adverse Reaction (Verified 10/04/19 17:11) Vomiting Primary Care Physician: Senait Jay MD [Primary Care Provider] - Prior records reviewed: Yes Surgical History: hysterectomy, mastectomy - Right, lymph node dissection., - - Rectocele repair. Lives: Spouse/ Significant Other Smoking Status: Former smoker Alcohol: None Drugs: None - Family History Paternal Family History: Reports: Cancer, Heart Disease - Father with history of fatal [place]. Maternal Family History: Reports: Cancer Review of Systems General: Reports: Chills, Fever, Malaise, Subjective, Sweats. Denies: Weight loss Eyes: Denies: Visual changes - bilaterally, Blurred Vision - bilaterally ENT: Reports: Rhinorrhea, Sore throat. Denies: Bilateral ear pain Cardiovascular: Reports: Chest pain. Denies: Palpitations, Heart racing Respiratory: Reports: Dyspnea, Cough, Dyspnea on exertion. Denies: Sputum, Orthopnea, Paroxysmal nocturnal dyspnea Gastrointestinal: Denies: Abdominal pain, Nausea, Vomiting, Diarrhea Genitourinary: Denies: Dysuria, Hematuria, Frequency Musculoskeletal: Denies: Myalgias, Arthralgias, Neck pain, Back pain, Swelling, Extremity Pain, -, - Skin: Denies: Rash, Wounds Neurological: Reports: Weakness. Denies: Headache, Parasthesia, Numbness, -, - Psych: Reports: Depression, Anxiety Endocrine: Reports: Polyuria, Polydipsia Hematologic: Reports: Easy bruising Allergy: Reports: Uticaria Physical Exam Vital Signs/Narrative: Vital Signs Temp Pulse Resp BP Pulse Ox 03/22/20 15:10 97.6 F L 68 15 158/94 H 96 03/22/20 15:08 97.6 F L 69 15 158/94 H 95 Inital Vital Signs reviewed: Yes General: Well nourished, Well developed, Acute Distress, - - Patient does not look well. She is pale. She is diaphoretic. There is use of accessory muscles at rest. Head: Normocephalic, Atraumatic Eyes: Perrl, EOMI. Negative for: Pale conjunctiva, Scleral icterus ENT: TM's clear. Negative for: No rhinorrhea Neck: Supple, Nontender, No lymphadenopathy, No JVD Cardiovascular: Regular rate, Regular rhythm, No murmurs, Normal S1, Normal S2 Respiratory: Chest nontender, Rales, Wheezing, Diminished, - - Right mastectomy. Negative for: No distress, CTA bilaterally Abdomen: Soft, Nontender, Nondistended, Normal bowel sounds Rectal: Deferred Back: Nontender, Normal Inspection Extremities: Nontender, Edema - Pitting edema feet and both legs 4 mm Skin: No rash, Diaphoresis, No Trauma, Pallor. Negative for: Cyanosis, Jaundice Neurological: Alert, Oriented x3, Cranial nerves II-XII grossly intact, Normal Strength, Normal Sensation Psychological: Depressed Diagnostic/Tx/Re-eval Chest X-Ray - ED: 1 View, Read by ED Physician, - - Film is slightly rotated. There is an air bronchogram on the right. This was noted on x-ray that was obtained September 2019. Cardiac silhouette size is normal. Mediastinum is unremarkable. Osseous proximal is unremarkable. Impressions Chest X-Ray 03/22/20 15:50 IMPRESSION: No acute cardiopulmonary findings or changes. Negative for new consolidation, atelectasis, pleural effusion or cardiomegaly. Electronically Signed: Mely Lora MD at 16:31 EDT , Service support , 03/22/20 15:50 Chest 1 View (Portable) [RAD] Stat Laboratory Results 03/22/20 03/22/20 03/22/20 15:30 15:30 15:30 WBC 10.0 RBC 5.03 Hgb 14.4 Hct 44.7 MCV 88.9 MCH 28.6 MCHC 32.2 RDW Std Deviation 42.1 RDW Coeff of Aniceto 12.9 Plt Count 199 MPV 10.3 Immature Gran % (Auto) 0.600 Neut % (Auto) 81.1 H Lymph % (Auto) 13.1 L [place] % (Auto) 3.1 Eos % (Auto) 1.3 Baso % (Auto) 0.8 Absolute Neuts (auto) 8.1 H Absolute Lymphs (auto) 1.30 Nucleated RBC % 0 D-Dimer Quant (PE/DVT) 0.54 H* Specimen Type Sample Site pH Bicarbonate Actual Total CO2 Base Excess O2 Saturation ABG pCO2 ABG pO2 O2 Delivery Device Sodium 136 Potassium 4.7 Chloride 104 Carbon Dioxide 28.0 Anion Gap 4 L BUN 26 H Creatinine 0.90 Estim Creat Clear Calc 46.05 Est GFR (MDRD) Af Amer 79 Est GFR (MDRD) Non-Af 66 BUN/Creatinine Ratio 29.1 H Glucose 191 H Lactic Acid Calcium 9.4 Total Bilirubin 0.30 AST 59 H ALT 59 H Alkaline Phosphatase 132 H Troponin I Total Protein 7.4 Albumin 3.3 Globulin 4.1 Albumin/Globulin Ratio 0.8 L 03/22/20 03/22/20 03/22/20 15:30 15:30 16:17 WBC RBC Hgb Hct MCV MCH MCHC RDW Std Deviation RDW Coeff of Aniceto Plt Count MPV Immature Gran % (Auto) Neut % (Auto) Lymph % (Auto) [place] % (Auto) Eos % (Auto) Baso % (Auto) Absolute Neuts (auto) Absolute Lymphs (auto) Nucleated RBC % D-Dimer Quant (PE/DVT) Specimen Type ART Sample Site L Radial pH 7.41 Bicarbonate Actual 27.4 H Total CO2 29 Base Excess 3 H O2 Saturation 96 ABG pCO2 42.8 ABG pO2 78 O2 Delivery Device Room Air Sodium Potassium Chloride Carbon Dioxide Anion Gap BUN Creatinine Estim Creat Clear Calc Est GFR (MDRD) Af Amer Est GFR (MDRD) Non-Af BUN/Creatinine Ratio Glucose Lactic Acid 1.6 Calcium Total Bilirubin AST ALT Alkaline Phosphatase Troponin I < 0.015 Total Protein Albumin Globulin Albumin/Globulin Ratio Patient was reassessed at 1732. She is no longer wheezing. Respiratory rate is 16-18. There is no use of accessory muscles. She is no longer pale. Heart rate is 67. Patient states she has an albuterol inhaler. She does not have a spacer. Prescription for spacer was written and she was instructed to puffs every 2-4 hours while awake for the next 2 days then every 4-6 hours as needed. The COVID-19 test is pending. - Medical Decision Making Need to evaluate for viral upper restaurant infection, COVID-19, pneumonia, and heart failure. EKG, chest x-ray and appropriate blood work was ordered. ED Disposition - Plan for ED Patient: Disposition: Home or Assisted Living Diagnosis: Acute asthmatic bronchitis Prescriptions: Inhaler, Assist Devices [Space Chamber] 1 ea UD #1 spacer Transmission Status: Pending to [facility] [facility] Referrals: Senait Jay MD [Primary Care Provider] - 3-5 Days if not improving Additional Instructions: 1. Continue taking prednisone as instructed 2. Use spacer with metered-dose inhaler. 2 puffs of albuterol every 2-4 hours while awake for the next 2 days then every 4-6 hours as needed for wheezing or shortness of breath.
--- NOTE | 2020-03-22 15:50 | RAD_ITS ---
STUDY: X-RAY CHEST REASON FOR EXAM: Female, 74 years old. right sided chest pain, shortness of breath TECHNIQUE: 1 view COMPARISON: Prior portable chest of 10/04/2019 FINDINGS: The lungs are clear and expanded. There is no demonstrated pleural abnormality. Normal size heart. Normal mediastinum and tanna. Normal visualized pulmonary arteries. There is atherosclerotic calcification of the aortic arch . Degenerative changes of the thoracic spine with a mild dextrocurvature. Normal visualized ribs, clavicles, and shoulders. Surgical benton right lateral chest wall. RAD/Chest 1 View (Portable) IMPRESSION: No acute cardiopulmonary findings or changes. Negative for new consolidation, atelectasis, pleural effusion or cardiomegaly. Electronically Signed: Mely Lora MD at 16:31 EDT , Service support ,
[2020-03-22 16:01] LABS: Absolute Neutrophil Count 8.1 X10^3/uL (2.0-7.7); Basophil# 0.08 X10^3/uL; Basophil% 0.8 % (0-1); Eosinophil# 0.13 X10^3/uL; Eosinophils% 1.3 % (0-5); Hematocrit 44.7 % (37-47); Hemoglobin 14.4 g/dL (12.0-15.0); Lymphocyte % 13.1 % (19-41); Mean Corp Hgb Conc 32.2 g/dL (32-36); Mean Corpuscular Hgb 28.6 pg (27.0-32.0); Mean Corpuscular Volume 88.9 fL (81-99); Mean Platelet Vol. 10.3 fl (6.2-12.0); Monocyte# 0.31 X10^3/uL; Monocyte% 3.1 % (0-10); NRBC Flagged by Analyzer 0 % (0-5); Neutrophil # 8.07 X10^3/uL (2.7-7.7); Neutrophil % 81.1 % (47-70); Platelet Count 199 K/mm3 (150-450); RBC Distribution Width CV 12.9 % (11.6-14.6); RBC Distribution Width SD 42.1 fl (35.1-43.9); Red Blood Count 5.03 M/mm3 (4.2-5.4)
[2020-03-22 16:06] LABS: ALB/GLOB Ratio 0.8 RATIO (0.9-2.4); AST(SGOT) 59 U/L (15-37); Alanine Aminotransfer ALT/SGPT 59 U/L (13-56); Albumin, Serum 3.3 g/dL (3.2-5.0); Alkaline Phosphatase 132 U/L (45-117); Anion Gap 4 (5-15); BUN 26 mg/dL (7-18); BUN/Creat Ratio 29.1 RATIO (10-20); Calcium,Total 9.4 mg/dL (8.5-10.1); Chloride 104 mmol/L (98-107); EST Glomerular Filtration Rate 66 mL/min (>60); Est Glom Filt Rate - Afr Amer 79 mL/min (>60); Estimated Creatinine Clearance 46.05 ml/min; Globulin 4.1 g/dL (2.2-4.2); Glucose 191 mg/dL (74-106); Potassium 4.7 mmol/L (3.5-5.1); Protein, Total 7.4 g/dL (6.4-8.2); Sodium Level 136 mmol/L (136-145)
[2020-03-22 16:12] VITALS: PULSE 65; RESP 17
[2020-03-22 16:13] LABS: D-Dimer Quantitative (DVT/PE) 0.54 FEU/ug/m (0.27-0.49)
[2020-03-22] MEDS: Albuterol 2.5 MG/3 ML VIAL.NEB. INHALATION ×3 (16:13)
[2020-03-22 16:21] LABS: Base Excess 3 mmol/L (-2 to +2); Bicarbonate 27.4 mmol/L (22-26); Blood Gas Specimen Type ART; O2 Delivery Device Room Air; PO2 78 mmHG (75-100); SITE L Radial; SO2 96 % (95-99); Total Carbon Dioxide 29 mmol/L; pCO2 42.8 mmHg (35-45); pH 7.41 (7.35-7.45)
[2020-03-22 16:30] LABS: Lactic Acid 1.6 mmol/L (0.4-1.9)
[2020-03-22 16:50] VITALS: BP 175/75; PULSE 67; RESP 20; TEMP 36.9; O2SAT 94
[2020-03-22 17:15] VITALS: BP 148/66; PULSE 64; PULSE 70; RESP 17; RESP 18; TEMP 36.7; O2SAT 93
== END 2020-03-22 18:06 | disposition home or self-care (01) ==
PROVIDERS: Emergency Provider Emergency Medicine; PCP Internal Medicine
DX: J45.909 Unspecified asthma, uncomplicated (principal); E11.9 Type 2 diabetes mellitus without complications; I10 Essential (primary) hypertension; M19.90 Unspecified osteoarthritis, unspecified site; G25.81 Restless legs syndrome; F32.9 Major depressive disorder, single episode, unspecified; F41.9 Anxiety disorder, unspecified; Z79.4 Long term (current) use of insulin; Z79.899 Other long term (current) drug therapy; Z87.891 Personal history of nicotine dependence
CPT/HCPCS: 36600; 71045; 80053; 82803; 83605; 84484; 85025; 85379; 87040; 87633; 87635; 93005; 94640; 99281; 99285; A4216; U0003

== ENCOUNTER → 2020-03-28 13:12 | Outpatient (CLI) | payer MEDICARE, SELFPAY ==
[2020-03-22 15:08] VITALS: BMI 53.1
[2020-03-28 15:32] LABS: Absolute Lymphocyte Count 2.52 X10^3/uL (0.83-4.51); Absolute Neutrophil Count 5.4 X10^3/uL (2.0-7.7); Basophil# 0.05 X10^3/uL; Basophil% 0.5 % (0-1); Eosinophil# 0.57 X10^3/uL; Eosinophils% 6.1 % (0-5); Hematocrit 46.1 % (37-47); Hemoglobin 14.6 g/dL (12.0-15.0); Lymphocyte # 2.52 X10^3/ul (4.0); Lymphocyte % 27.1 % (19-41); Mean Corp Hgb Conc 31.7 g/dL (32-36); Mean Corpuscular Volume 88.5 fL (81-99); Mean Platelet Vol. 10.1 fl (6.2-12.0); Monocyte# 0.74 X10^3/uL; NRBC Flagged by Analyzer 0 % (0-5); Neutrophil # 5.37 X10^3/uL (2.7-7.7); Neutrophil % 57.8 % (47-70); Platelet Count 218 K/mm3 (150-450); RBC Distribution Width CV 12.6 % (11.6-14.6); RBC Distribution Width SD 41.3 fl (35.1-43.9); Red Blood Count 5.21 M/mm3 (4.2-5.4); White Blood Count 9.3 K/mm3 (4.4-11.0)
== END ==
PROVIDERS: PCP Internal Medicine; Referring Provider Internal Medicine Pulmonary Disease; Visit Provider Internal Medicine Pulmonary Disease
DX: J45.909 Unspecified asthma, uncomplicated (principal); G47.33 Obstructive sleep apnea (adult) (pediatric)
CPT/HCPCS: 36415; 85025

== ENCOUNTER → 2020-06-05 09:05 | Outpatient (CLI) | payer MEDICARE, SELFPAY | PROVIDERS: PCP Internal Medicine; Referring Provider Internal Medicine Pulmonary Disease; Visit Provider Internal Medicine Pulmonary Disease | DX: R05 Cough (principal); J32.9 Chronic sinusitis, unspecified; R06.00 Dyspnea, unspecified | CPT/HCPCS: 87635; C9803; U0003 ==

== ENCOUNTER 2020-06-20 16:09 | Inpatient (IN) | payer MEDICARE, SELFPAY ==
[2020-06-20] VITALS (10 sets, daily range): BP systolic 101–165; BP diastolic 42–146; PULSE 80–109; RESP 12–24; TEMP 35.8–36.9; O2SAT 92–99; BMI 53.1; BMI 57.4; BMI 57.5
--- NOTE | 2020-06-20 16:29 | EKG12_ITS ---
Test Reason : Blood Pressure : / mmHG Vent. Rate : 083 BPM Atrial Rate : 087 BPM P-R Int : 000 ms QRS Dur : 078 ms QT Int : 362 ms P-R-T Axes : 000 -08 113 degrees QTc Int : 425 ms Normal sinus rhythm with 1st degree AV block Nonspecific ST and T wave abnormality Abnormal ECG Confirmed by JACLYN RIVERA, KATIE ([id number]), newspaper editor managing SAIRA WHITMORE ([id number]) on 06/26/2020 6:22:58 AM Referred By: KRISTEN Confirmed By:KATIE ANAYA MD
--- NOTE | 2020-06-20 16:31 | ED.VIS.GEN ---
History of Present Illness Chief Complaint: Shortness of Breath Informant: Patient Onset: Yesterday Narrative: Sent in by her loom changeover operator office Dr. Watters for worsening dyspnea since yesterday. States history of asthma, sleep apnea, your long allergies. States on and off cough is nonproductive. No fevers, no loss of taste or smell, no vomiting or diarrhea. History of diabetes. Status post 60 mg oral prednisone and 2 aerosol treatments prior to arrival. Similar symptoms in the past with asthmatic bronchitis. She is admitted a month ago, no history of intubations due to breathing. She does wear sleep apnea mask along with oxygen at night. Denies tobacco history. Prior similar symptoms: Yes Past Medical History - Allergies and Home Meds Allergies/Adverse Reactions: Allergies adhesive tape Allergy (Verified 06/20/20 16:13) Unknown listed on pcp allergy list cefadroxil [From Duricef] Allergy (Verified 06/20/20 16:13) Unknown gluten Allergy (Verified 06/20/20 16:13) Other Celiac disease mesalamine [From Asacol] Allergy (Verified 06/20/20 16:13) Unknown listed on pcp allergy list omalizumab [From Xolair] Allergy (Verified 06/20/20 16:13) Unknown listed on pcp allergy list Sulfa (Sulfonamide Antibiotics) Allergy (Verified 06/20/20 16:13) Unknown oxycodone Adverse Reaction (Verified 06/20/20 16:13) Vomiting Past Medical History: - - Asthma, diabetes, celiac disease, sleep apnea Surgical History: hysterectomy, mastectomy - Right, lymph node dissection., - - Rectocele repair. Smoking Status: Former smoker - Family History Paternal Family History: Reports: Cancer, Heart Disease - Father with history of fatal [place]. Maternal Family History: Reports: Cancer Review of Systems General: Denies: Chills, Fever, Sweats Eyes: Denies: Visual changes - bilaterally, Diplopia ENT: Denies: Rhinorrhea, Sore throat Cardiovascular: Denies: Chest pain, Palpitations Respiratory: Reports: Dyspnea, Cough. Denies: Dyspnea on exertion Gastrointestinal: Denies: Abdominal pain, Nausea, Vomiting, Diarrhea, Melena, Hematochezia Genitourinary: Denies: Dysuria, Hematuria, Frequency Musculoskeletal: Denies: Back pain, Extremity Pain Skin: Denies: Rash, Wounds Neurological: Denies: Headache, Weakness, Numbness Physical Exam Vital Signs/Narrative: Vital Signs Temp Pulse Resp BP Pulse Ox 06/20/20 16:09 96.5 F L 109 H 24 H 165/146 H 92 Inital Vital Signs reviewed: Yes General: Well nourished, Well developed, - - Speaking in short sentences Head: Normocephalic, Atraumatic Eyes: Perrl, EOMI ENT: Moist mucous membranes, No rhinorrhea Neck: Supple, Nontender Cardiovascular: Regular rate, Regular rhythm, No murmurs, - - Heart rate 80 on the monitor Respiratory: - - Diffuse wheezing, mild accessory muscle use. Abdomen: Soft, Nontender, Nondistended, Normal bowel sounds Back: Nontender, Normal Inspection Extremities: Nontender, No edema Skin: Normal color, No rash Neurological: Alert, Oriented x3, Cranial nerves II-XII grossly intact, Normal Strength, Normal Sensation Psychological: Normal affect, Normal Mood Diagnostic/Tx/Re-eval Clinical Impression(s) from Imaging Studies Chest X-Ray 06/20/20 17:11 IMPRESSION: No acute pulmonary process Electronically Signed: Yong Ordonez MD at 17:29 EST , Service support , Abnormal Lab Results 06/20/20 06/20/20 06/20/20 16:40 16:40 16:40 WBC 7.9 RBC 4.68 Hgb 13.5 Hct 40.8 MCV 87.2 MCH 28.8 MCHC 33.1 RDW Std Deviation 42.5 RDW Coeff of Aniceto 13.3 Plt Count 173 MPV 10.1 Immature Gran % (Auto) 0.500 Neut % (Auto) 58.8 Lymph % (Auto) 22.8 [place] % (Auto) 6.4 Eos % (Auto) 10.5 H Baso % (Auto) 1.0 Absolute Neuts (auto) 4.7 Absolute Lymphs (auto) 1.81 Nucleated RBC % 0 PT 12.9 INR 1.0 APTT 28.2 Sodium 137 Potassium 4.4 Chloride 106 Carbon Dioxide 25.0 Anion Gap 6 BUN 10 Creatinine 0.86 Estim Creat Clear Calc 48.19 Est GFR (MDRD) Af Amer 83 Est GFR (MDRD) Non-Af 69 BUN/Creatinine Ratio 11.6 Glucose 246 H Lactic Acid Calcium 9.0 Total Bilirubin 0.40 AST 52 H ALT 57 H Alkaline Phosphatase 110 Total Protein 7.4 Albumin 3.4 Globulin 4.0 Albumin/Globulin Ratio 0.8 L Urine Color Urine Clarity Urine pH Ur Specific [place] Urine Protein Urine Glucose (UA) Urine Ketones Urine Occult Blood Urine Nitrite Urine Bilirubin Urine Urobilinogen Ur Leukocyte Esterase Urine RBC Urine WBC Ur Squamous Epith Cells Amorphous Sediment Urine Bacteria Urine Mucus 06/20/20 06/20/20 16:40 17:30 WBC RBC Hgb Hct MCV MCH MCHC RDW Std Deviation RDW Coeff of Aniceto Plt Count MPV Immature Gran % (Auto) Neut % (Auto) Lymph % (Auto) [place] % (Auto) Eos % (Auto) Baso % (Auto) Absolute Neuts (auto) Absolute Lymphs (auto) Nucleated RBC % PT INR APTT Sodium Potassium Chloride Carbon Dioxide Anion Gap BUN Creatinine Estim Creat Clear Calc Est GFR (MDRD) Af Amer Est GFR (MDRD) Non-Af BUN/Creatinine Ratio Glucose Lactic Acid 2.2 H* Calcium Total Bilirubin AST ALT Alkaline Phosphatase Total Protein Albumin Globulin Albumin/Globulin Ratio Urine Color Yellow Urine Clarity Sl. Cloudy Urine pH 5.0 Ur Specific [place] 1.025 Urine Protein 30 H Urine Glucose (UA) 250 H Urine Ketones 5 H Urine Occult Blood 10 H Urine Nitrite Positive H Urine Bilirubin Negative Urine Urobilinogen Normal Ur Leukocyte Esterase 100 H Urine RBC 0-5 SEEN Urine WBC 10-25 SEEN Ur Squamous Epith Cells 0-5 SEEN Amorphous Sediment 1+ URATE Urine Bacteria 1+ Urine Mucus 0 SEEN - EKG Initial EKG Interpretation: Sinus Rhythm - Sinus first-degree AV block at rate of 83, wandering baseline. - Medical Decision Making Patient tachypneic speaking short sentences BiPAP was ordered to assist with respiratory breathing. ABG stable. She stable on BiPAP. Work-up 1 view chest x-ray reviewed by myself and read by radiology shows no acute process. Labs are all stable she was given steroids by her loom changeover operator office prior to arrival she is given DuoNeb treatment. Covid pending. Spoke with Dr. Painter for admission to PCU for continued pulmonary toilet. After words urine did return positive for UTI this was relayed to hospitalist team for antibiotics upstairs. Her lactic acid was 2.2. She is 1 out of 4 SIRS criteria. However cultures are pending. ED Disposition - Plan for ED Patient: Disposition: Acute Care Hospital [facility] Diagnosis: Asthma exacerbation, Urinary tract infection
[2020-06-20 17:00] LABS: Absolute Lymphocyte Count 1.81 X10^3/uL (0.83-4.51); Absolute Neutrophil Count 4.7 X10^3/uL (2.0-7.7); Basophil# 0.08 X10^3/uL; Eosinophil# 0.83 X10^3/uL; Eosinophils% 10.5 % (0-5); Hematocrit 40.8 % (37-47); Hemoglobin 13.5 g/dL (12.0-15.0); Lymphocyte # 1.81 X10^3/ul (4.0); Lymphocyte % 22.8 % (19-41); Mean Corp Hgb Conc 33.1 g/dL (32-36); Mean Corpuscular Hgb 28.8 pg (27.0-32.0); Mean Corpuscular Volume 87.2 fL (81-99); Mean Platelet Vol. 10.1 fl (6.2-12.0); Monocyte# 0.51 X10^3/uL; Monocyte% 6.4 % (0-10); NRBC Flagged by Analyzer 0 % (0-5); Neutrophil # 4.67 X10^3/uL (2.7-7.7); Neutrophil % 58.8 % (47-70); Platelet Count 173 K/mm3 (150-450); RBC Distribution Width CV 13.3 % (11.6-14.6); RBC Distribution Width SD 42.5 fl (35.1-43.9); Red Blood Count 4.68 M/mm3 (4.2-5.4); White Blood Count 7.9 K/mm3 (4.4-11.0)
[2020-06-20] MEDS: Ipratropium/Albuterol Sulfate 3 ML AMPUL.NEB INHALATION (17:04)
[2020-06-20 17:07] LABS: Prothrombin Time (Protime)PT. 12.9 SECONDS (11.7-14.9)
[2020-06-20 17:08] LABS: Partial Thromboplast Time 28.2 Seconds (24.1-36.2)
--- NOTE | 2020-06-20 17:11 | RAD_ITS ---
STUDY: X-RAY CHEST REASON FOR EXAM: Female, 74 years old. For exam worsening shortness of breath TECHNIQUE: Single AP portable view of the chest. COMPARISON: 03/22/2020 FINDINGS: EKG leads overlie the chest The lungs are clear and expanded. There is no demonstrated pleural abnormality. Normal size heart. Normal mediastinum and tanna. Normal visualized pulmonary arteries. There is atherosclerotic calcification of the aortic arch with tortuosity. There are diffuse degenerative changes of the visualized thoracic spine. There is degenerative osteoarthritis of the bilateral shoulders. There is no demonstrated abnormality of the visualized soft tissue structures of the upper abdomen. RAD/Chest 1 View (Portable) IMPRESSION: No acute pulmonary process Electronically Signed: Yong Ordonez MD at 17:29 EST , Service support ,
[2020-06-20 17:13] LABS: ALB/GLOB Ratio 0.8 RATIO (0.9-2.4); AST(SGOT) 52 U/L (15-37); Alanine Aminotransfer ALT/SGPT 57 U/L (13-56); Albumin, Serum 3.4 g/dL (3.2-5.0); Alkaline Phosphatase 110 U/L (45-117); Anion Gap 6 (5-15); BUN 10 mg/dL (7-18); BUN/Creat Ratio 11.6 RATIO (10-20); Chloride 106 mmol/L (98-107); Creatinine, Serum 0.86 mg/dL (0.55-1.02); EST Glomerular Filtration Rate 69 mL/min (>60); Est Glom Filt Rate - Afr Amer 83 mL/min (>60); Estimated Creatinine Clearance 48.19 ml/min; Glucose 246 mg/dL (74-106); Potassium 4.4 mmol/L (3.5-5.1); Protein, Total 7.4 g/dL (6.4-8.2); Sodium Level 137 mmol/L (136-145)
--- NOTE | 2020-06-20 17:44 | NURSING ---
PCU [facility]
[2020-06-20 17:49] LABS: Lactic Acid 2.2 mmol/L (0.4-1.9)
--- NOTE | 2020-06-20 17:51 | HP.PCM_ITS ---
Problem List (1) Acute and chronic respiratory failure with hypoxia Status: Acute (2) Asthma exacerbation Status: Acute Qualifiers: Asthma severity: unspecified severity Asthma persistence: unspecified Qualified Code(s): J45.901 - Unspecified asthma with (acute) exacerbation (3) Anxiety and depression Status: Chronic (4) Asthma Status: Chronic Qualifiers: Asthma severity: unspecified severity Asthma persistence: unspecified Asthma complication type: unspecified Qualified Code(s): J45.909 - Unspecified asthma, uncomplicated (5) Celiac disease Status: Chronic (6) Chronic respiratory failure with hypoxia Status: Chronic (7) Diabetes mellitus, type II Status: Chronic Qualifiers: Diabetes mellitus intermediate insulin use: with intermediate use Diabetes mellitus complication status: without complication Qualified Code(s): E11.9 - Type 2 diabetes mellitus without complications; 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 of 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 (8) History of right breast cancer Status: Chronic (9) Hypertension Status: Chronic Qualifiers: Hypertension type: essential hypertension Qualified Code(s): I10 - Essential (primary) hypertension (10) Osteoarthritis Status: Chronic Qualifiers: Osteoarthritis location: unspecified site Osteoarthritis type: unspecified Qualified Code(s): M19.90 - Unspecified osteoarthritis, unspecified site (11) Restless leg syndrome Status: Chronic (12) Sleep apnea Status: Chronic Qualifiers: Sleep apnea type: obstructive Qualified Code(s): G47.33 - Obstructive sleep apnea (adult) (pediatric) History of Present Illness Date of Admission: 06/20/20 Chief Complaint: Dyspnea, wheezing. The patient is a 74 y/o F w/ PMHx: Asthma with chronic hypoxic respiratory failure (2L q HS), DORY on CPAP q HS, Morbid obesity, Diabetes mellitus type II, Seizure disorder, Anxiety and Depression/ADD, Allergic rhinitis, RLS, Celiac disease who presents to the [facility] ED on 06/20/20 with history of worsening dyspnea, mild cough without productive sputum and significant wheezing over the last 48 hours prompting evaluation per her bedspring assembler with administration in the office of oral prednisone 60 mg as well as aerosol treatment x2 however not improving therefore patient referred to the ED for evaluation. Patient denies any recent fever, chills, nausea, emesis, abdominal pain, diarrhea changed from her chronic baseline, body aches, headaches. She denies any recent ill contacts. Patient notes she has remained at home during Covid time. Work-up in the ED included initially T 96.5 temporally, heart rate 109, BP 165/146, respiratory rate 24, 92% on room air with increased work of breathing accessory muscle usage eventually placed on BiPAP with improvement of vital signs with T 97.9, heart rate 80, BP 116/53, respiratory rate 20, 99% on BiPAP, unremarkable CBC with no significant shift, unremarkable coags, CMP with glucose 246, lactic acid 2.2, total bilirubin 0.40, AST/ALT 52/57 otherwise not marked appearing, analysis pending upon evaluation, blood culture x2 pending per ED, urine culture pending per ED H, rapid Covid antigen negative, chest x-ray with no acute cardiopulmonary findings. In the ED patient administered DuoNeb therapy and per discussion with ED physician as noted had been administered prednisone 60 mg as well as DuoNeb therapy x2 per his bedspring assembler, Dr. Gomez prior to transi tion to the ED for evaluation. Past Medical History Past Medical History (Chronic Problems): Chronic Problems Chronic respiratory failure with hypoxia (Chronic) Breast cancer, right breast (Chronic) Vitamin D deficiency (Chronic) Hypertension (Chronic) Diabetes mellitus (Chronic) Allergic rhinitis (Chronic) GERD (gastroesophageal reflux disease) (Chronic) Restless leg syndrome (Chronic) Body mass index (BMI) 50-59.9, adult (Chronic) Migraine headache (Chronic) Obstructive sleep apnea (Chronic) Osteoarthritis (Chronic) Celiac disease (Chronic) Asthma (Chronic) BMI 50.0-59.9, adult (Chronic) History of right breast cancer (Chronic) Sleep apnea (Chronic) Diabetes mellitus, type II (Chronic) Anxiety and depression (Chronic) Allergies adhesive tape Allergy (Verified 06/20/20 16:13) Unknown listed on pcp allergy list cefadroxil [From Duricef] Allergy (Verified 06/20/20 16:13) Unknown gluten Allergy (Verified 06/20/20 16:13) Other Celiac disease mesalamine [From Asacol] Allergy (Verified 06/20/20 16:13) Unknown listed on pcp allergy list omalizumab [From Xolair] Allergy (Verified 06/20/20 16:13) Unknown listed on pcp allergy list Sulfa (Sulfonamide Antibiotics) Allergy (Verified 06/20/20 16:13) Unknown oxycodone Adverse Reaction (Verified 06/20/20 16:13) Vomiting Home Medications: Ambulatory Orders Medication Instructions Recorded Cholecalciferol (Vitamin D3) 50,000 unit PO SUWE@0800 06/01/17 [Vitamin D3] Pramipexole Di-HCl [Mirapex] 0.5 mg PO QHS 06/01/17 Albuterol Aerosols [Ventolin 2.5 mg INHALATION Q2H PRN PRN #1 11/26/17 Aerosols] box Albuterol IH (ProAir) [Proair Hfa] 2 puff INHALATION Q6H PRN PRN 03/25/18 Budesonide [Rhinocort Allergy] 2 puff NARES DAILY 06/12/18 Ondansetron [Zofran Odt] 4 mg PO Q8H PRN PRN #10 tab 06/12/18 Carbamazepine 200 mg PO QHS 03/01/19 Methylphenidate HCl 20 mg PO BID 03/01/19 [Methylphenidate ER] Nadolol [Corgard (Beta Tiffanie)] 40 mg PO DAILY 03/01/19 Paroxetine HCl [Paxil] 40 mg PO DAILY 03/01/19 Loperamide [Imodium] 2 mg PO Q4H PRN PRN cap 10/08/19 Inhaler, Assist Devices [Space 1 ea MC UD #1 spacer 03/22/20 Chamber] Insulin U-500 [Humulin R U-500 85 units SQ BID 03/22/20 ([facility])] Levocetirizine Dihydrochloride 5 mg PO QHS 03/22/20 [Xyzal] Montelukast [Singulair] 10 mg PO DAILY 03/22/20 Nystatin Powder [Mycostatin Powder] 1 applic TOPICAL BID 03/22/20 Potassium Chloride [K-Dur] 10 meq PO DAILYCM 03/22/20 Surgical History: hysterectomy, mastectomy - Right, lymph node dissection., - - Rectocele repair. Psychiatric History: Anxiety, Depression MEDICAL BILLING REPRESENTATIVE History: No pertinent MEDICAL BILLING REPRESENTATIVE history Lives: Spouse/ Significant Other Smoking Status: Former smoker - Patient notes smoking for approximately 2 years, quit approximately 50 years prior to current presentation with during this time approximate 1/2 pack/day cigarette tobacco usage. Tobacco Use: Non-smoker Alcohol: None Drugs: None - *Family History Paternal History Items: Cancer, Heart Disease - Father with history of fatal CT. Maternal History Items: Cancer - Mother with a history of breast cancer eventually metastatic. Review of Systems Constitutional: Reports: Malaise, Weakness, Fatigue. Denies: Chills, Fever, Weight Change HEENT: Denies: Head Aches, Sinus Congestion, Sinus Drainage Cardiovascular: Denies: Chest Pain, Palpitations Respiratory: Reports: Cough, Shortness of Breath, Shortness of breath at rest, Shortness of breath upon exertion, Wheezing. Denies: Sputum production Gastrointestinal: Denies: Abdominal Pain, Nausea, Vomiting Genitourinary: Denies: Dysuria Musculoskeletal: Reports: Back Pain, Joint Pain. Denies: Joint Tenderness Skin: Denies: Rash, Wounds Neurological: Denies: Numbness, Tingling, Focal weakness Psychiatric: Reports: Anxiety, Depression. Denies: Homicidal Ideations, Suicidal Ideations Hematologic/ Lymphatic: Denies: Easy Bruising, Easy Bleeding VTE Information - Inpt Only VTE Present on Admission: No VTE Mechan Device Prophylaxis: SCD's VTE Pharm Prophylaxis ordered?: Yes Subjective: Patient seated upright in the ED bed, fatigued appearing, BiPAP in place, notes improving since placement. Objective: Physical Examination: General: awake, alert, oriented x 3 and cooperative, seated upright in the ED bed, fatigued appearance, still some increased work of breathing but improving on BiPAP. Skin: normal color, turgor, no icterus, cyanosis. HEENT: AT/NC, EOMI, PERRLA, dry MM, BiPAP in place, difficult to discern carotid bruit and JVD secondary to BiPAP and thickened neck. Lungs: Significantly diminished breath sounds, greater bases, audible expiratory wheezing, still some increased work of breathing, BiPAP currently in place, no obvious rales or rhonchi. Heart: Mildly tachycardic with regular rhythm; no gallop, rub audible. Abdomen: soft, morbidly obese, NTTP, ND, distant normal BS, unable to discern HSM secondary to habitus. Extremities: no cyanosis or clubbing, mild bilateral ankle nonpitting edema. Neurological: patient awake, alert, oriented as noted; cognitive function intact; pupils equally reactive to light and accomodation; cranial nerves II-XII grossly normal, moving all 4 extremities, no focal deficits, strength severely globally decreased secondary to acute presentation. Psychiatric: affect appears fatigued, increased work of breathing is noted, improving though on BiPAP, no acute evidence of depressive or anxiety feelings. - Physical Exam Vitals/I&O's: Vital Signs Temp Pulse Resp BP Pulse Ox 97.9 F 80 20 H 116/53 L 99 06/20/20 17:42 06/20/20 17:42 06/20/20 17:42 06/20/20 17:42 06/20/20 17:42 Oxygen Flow Rate (L/min) 2 Oxygen Delivery Method Bi-pap Weight: 300 lb Body Mass Index (BMI) 53.1 Finger Stick Blood Glucose 154 Microbiology Past 72 Hours 06/20/20 16:35 Mucosa - Nose SARS-CoV-2 Antigen (Rapid) - Final Laboratory Results 06/20/20 16:40: WBC 7.9, RBC 4.68, Hgb 13.5, Hct 40.8, MCV 87.2, MCH 28.8, MCHC 33.1, RDW Std Deviation 42.5, RDW Coeff of Aniceto 13.3, Plt Count 173, MPV 10.1, Immature Gran % (Auto) 0.500, Neut % (Auto) 58.8, Lymph % (Auto) 22.8, Brewster % (Auto) 6.4, Eos % (Auto) 10.5 H, Baso % (Auto) 1.0, Absolute Neuts (auto) 4.7, Absolute Lymphs (auto) 1.81, Nucleated RBC % 0 06/20/20 16:40: PT 12.9, INR 1.0, APTT 28.2 06/20/20 16:40: Sodium 137, Potassium 4.4, Chloride 106, Carbon Dioxide 25.0, Anion Gap 6, BUN 10, Creatinine 0.86, Estim Creat Clear Calc 48.19, Est GFR (MDRD) Af Amer 83, Est GFR (MDRD) Non-Af 69, BUN/Creatinine Ratio 11.6, Glucose 246 H, Calcium 9.0, Total Bilirubin 0.40, AST 52 H, ALT 57 H, Alkaline Phosphatase 110, Total Protein 7.4, Albumin 3.4, Globulin 4.0, Albumin/Globulin Ratio 0.8 L 06/20/20 16:40: Lactic Acid 2.2 H* Assessment/Plan All Active Problems Acute and chronic respiratory failure with hypoxia (Acute) Asthma exacerbation (Acute) Asthmatic bronchitis (Acute) Suspected 2019-nCoV infection (Ruled-out) Lactic acidosis (Acute) Complicated UTI (urinary tract infection) (Acute) Acute delirium (Acute) USAMA (acute kidney injury) (Acute) Hypokalemia (Acute) Sepsis (Acute) Acute metabolic encephalopathy (Acute) UTI (urinary tract infection) (Acute) Acute severe exacerbation of asthma (Resolved) Staphylococcal pneumonia (Ruled-out) Streptococcal pneumonia (Ruled-out) Acute and chronic respiratory failure with hypoxia (Ruled-out) Cellulitis of right breast (Ruled-out) Influenza (Ruled-out) Acute asthma exacerbation (Resolved) The patient is a 74 y/o F w/ PMHx: Asthma with chronic hypoxic respiratory failure (2L q HS), DORY on CPAP q HS, Morbid obesity, Diabetes mellitus type II, Seizure disorder, Anxiety and Depression/ADD, Allergic rhinitis, RLS, Celiac d isease who presents to the [facility] ED on 06/20/20 with history of worsening dyspnea, mild cough without productive sputum and significant wheezing over the last 48 hours prompting evaluation per her bedspring assembler with administration in the office of oral prednisone 60 mg as well as aerosol treatment x2 however not improving. 1. Acute on Chronic Hypoxic Respiratory Failure secondary to Acute on Chronic Asthma Exacerbation with mild Lactic Acidosis: We will continue BiPAP with transition to the PCU, maintain on telemetry monitoring, transition to supplemental oxygen as able, continue IV Solu-Medrol, continue ATC DuoNebs and as needed albuterol, encourage head of bed, I-S, will obtain sputum culture and respiratory for possible viral panel, defer any antibiotic therapy at this time, trend lactic acid per facility protocol. 2. Diabetes mellitus type II: Will continue home insulin regimen however given steroid usage may need to alter, ADA diet, accu checks w/ ISS. 3. Hypertension: Continue home regimen including nadolol, PRN hydralazine. 4. Allergic rhinitis: We will continue patient home Singulair, levocetirizine home regimen. 5. Anxiety and depression/ADD/?Bipolar disorder: We will continue patient home paroxetine and carbamazepine regimen. 6. Morbid Obesity: Weight loss and lifestyle changes encouraged, nutrition consulted. 7. Celiac disease: Will maintain gluten-free diet. 8. DORY: Currently using BiPAP, uses CPAP nightly at home. 9. GERD: We will maintain on home PPI. 10. RLS: We will continue patient home Mirapex regimen. 11. DVT prophylaxis: SCDs, Lovenox. 12. CODE status: Patient HCPALEX is her daughter Jessica Matute and living will is currently in place. Discussed CODE status at length including difference between FULL code, DNR-CCA and DNR-CC status. Following discussions about the differences in these status, requested Full Code status. Advanced Care Planning Face to Face Time: 16 minutes. Inpatient E&M: 22509 Init Hosp L3 Procedures: 84123 Advncd Care Plan 30 Min
[2020-06-20 17:53] LABS: Mucous, Urine 0 SEEN /hpf (<or=2+)
--- NOTE | 2020-06-20 17:53 | NURSING ---
MED SURG RECURRENT ABD ASCITES, HX OF CIRRHOSIS WHITE
[2020-06-20 18:05] LABS: Color, Urine Yellow (Yellow); Glucose, Dipstick 250 mg/dl (Normal); Ketone-Dipstick 5 mg/dl (Negative); Leukocyte Esterase-Dipstick 100 /ul (Negative); Nitrite-Dipstick Positive (Negative); Occult Blood-Urine 10 /ul (Negative); Protein-Dipstick 30 mg/dl (Negative); Specific Gravity, Urine 1.025 (1.002-1.030); Urine Bilirubin Dipstick Negative (Negative); Urine Clarity Sl. Cloudy (Clear); Urine Urobilinogen Normal (Normal)
[2020-06-20 18:21] LABS: Base Excess 0 mmol/L (-2 to +2); Bicarbonate 26.1 mmol/L (22-26); Blood Gas Specimen Type ART; PO2 178 mmHG (75-100); SITE R Radial; SO2 100 % (95-99); Total Carbon Dioxide 28 mmol/L; pCO2 49.8 mmHg (35-45); pH 7.33 (7.35-7.45)
[2020-06-20 18:38] LABS: Amorphous Sediment 1+ URATE; Bacteria 1+ /hpf (None Seen); Red Blood Cells-Urine 0-5 SEEN /hpf (0-5); Squamous Epithelial Cells - UA 0-5 SEEN /hpf (5-10); White Blood Cells 10-25 SEEN /hpf (0-5)
[2020-06-20 19:36] LABS: Bedside Glucose 187 mg/dL (70-110)
[2020-06-20 20:07] LABS: Magnesium 1.9 mg/dL (1.6-2.6)
[2020-06-20 20:20] LABS: Procalcitonin 0.13 ng/mL (0.00-0.09)
[2020-06-20 20:53] LABS: Reflex Lactate? Y
[2020-06-20 21:58] LABS: Lactic Acid 2.4 mmol/L (0.4-1.9)
[2020-06-20] MEDS: 0.9% Normal Saline 1,000 ML 100 ML IV (22:29)
[2020-06-21] VITALS (21 sets, daily range): BP systolic 133–167; BP diastolic 63–79; PULSE 70–88; RESP 12–22; TEMP 35.8–36.7; O2SAT 93–100
[2020-06-21] MEDS: Loratadine 10 MG Tablet 5 MG PO ×2 (00:16→21:24)
[2020-06-21] MEDS: Insulin Lispro 100 UNIT/ML INSULN.PEN SC ×5 (00:17→21:23)
[2020-06-21] MEDS: Enoxaparin 40 MG/0.4 ML Syringe SC ×3 (00:19→21:25)
[2020-06-21] MEDS: Famotidine 20 MG Tablet PO ×3 (00:20→21:24)
[2020-06-21] MEDS: Pramipexole Di-HCl 0.5 MG Tablet PO ×2 (00:20→21:24)
[2020-06-21] MEDS: carBAMazepine 200 MG Tablet PO ×2 (00:21→21:24)
[2020-06-21 00:41] LABS: Bedside Glucose 240 mg/dL (70-110)
[2020-06-21 06:45] LABS: Absolute Lymphocyte Count 0.92 X10^3/uL (0.83-4.51); Absolute Neutrophil Count 7.2 X10^3/uL (2.0-7.7); Basophil# 0.03 X10^3/uL; Basophil% 0.4 % (0-1); Eosinophil# 0.02 X10^3/uL; Eosinophils% 0.2 % (0-5); Hematocrit 38.6 % (37-47); Hemoglobin 12.5 g/dL (12.0-15.0); Lymphocyte # 0.92 X10^3/ul (4.0); Mean Corp Hgb Conc 32.4 g/dL (32-36); Mean Corpuscular Hgb 28.7 pg (27.0-32.0); Mean Corpuscular Volume 88.5 fL (81-99); Mean Platelet Vol. 10.2 fl (6.2-12.0); Monocyte# 0.16 X10^3/uL; Monocyte% 1.9 % (0-10); NRBC Flagged by Analyzer 0 % (0-5); Neutrophil # 7.16 X10^3/uL (2.7-7.7); Platelet Count 130 K/mm3 (150-450); RBC Distribution Width CV 13.2 % (11.6-14.6); Red Blood Count 4.36 M/mm3 (4.2-5.4); White Blood Count 8.3 K/mm3 (4.4-11.0)
[2020-06-21] MEDS: Ipratropium/Albuterol Sulfate 3 ML AMPUL.NEB INHALATION ×4 (07:20→23:44)
[2020-06-21 07:25] LABS: ALB/GLOB Ratio 0.8 RATIO (0.9-2.4); AST(SGOT) 33 U/L (15-37); Alanine Aminotransfer ALT/SGPT 44 U/L (13-56); Albumin, Serum 2.9 g/dL (3.2-5.0); Alkaline Phosphatase 88 U/L (45-117); Anion Gap 5 (5-15); BUN 12 mg/dL (7-18); Calcium,Total 8.5 mg/dL (8.5-10.1); Chloride 107 mmol/L (98-107); Creatinine, Serum 0.66 mg/dL (0.55-1.02); EST Glomerular Filtration Rate 92 mL/min (>60); Est Glom Filt Rate - Afr Amer 112 mL/min (>60); Estimated Creatinine Clearance 41.45 ml/min; Globulin 3.6 g/dL (2.2-4.2); Glucose 252 mg/dL (74-106); Potassium 4.8 mmol/L (3.5-5.1); Protein, Total 6.5 g/dL (6.4-8.2); Sodium Level 136 mmol/L (136-145)
[2020-06-21 07:30] LABS: Bedside Glucose 280 mg/dL (70-110)
[2020-06-21] MEDS: Montelukast 10 MG Tablet PO (08:56)
[2020-06-21] MEDS: Paroxetine 20 MG Tablet 40 MG PO (08:57)
[2020-06-21] MEDS: Fluticasone 0.05% 1 SPRAY NASAL.SRY 2 SPRAY NASAL (09:01)
[2020-06-21] MEDS: Ceftriaxone 1 GM/50 ML BAG IV (09:23)
--- NOTE | 2020-06-21 10:42 | CASEMGMT ---
Patient has a Healthcare Power of Slater Apprentice and a Healthcare Living Will on file at [facility]. Her Healthcare Power of Slater Apprentice is her daughter, Santa Matute. Jordana MADDOX MSW
--- NOTE | 2020-06-21 11:05 | CASEMGMT ---
JASWINDER PLASCENCIA assessment: Face to Face with patient for initial transition planning/care coordination assessment. JASWINDER PLASCENCIA introduced self and role at [facility], pt voices understanding and consents to assessment at this time. Pt is sitting up in bed in no distress at this time on bipap as she was sleeping when this RN CM entered room. Pt is A/Ox4 at this time and answers all questions appropriately at this time. Care providers, pharmacy, and demographics verified. Presentation: Sent by Dr. Watters office for increased SOB Admitting dx: Asthma exacerbation PCP: Misty Specialists: Janene Preferred Pharmacy: [facility] Insurance: [facility] Prescription Benefit: AnthR Living Will/HPOA: Pt has a LW/HPOA and is aware that they are on file at [facility] at this time. Pt's daughter, Santa Matute, is HPOA. LNOK: Travis Garcia, ; Santa Matute, daughter/HPOA; Lalit Matute, [id number] Living Arrangements: Pt states lives with in 2 story home and states no concerns at home at this time. Pt states her and care for each other and help each other with ADL's and pt states that family gets groceries. Transportation: Pt states drives self and states no transportation concerns at this time. DME/HHC: Pt states has a rollator, bipap, and 2.5L home oxygen thru [facility]. Call to [facility] and per rep, pt's order is for 2L continuous at this time. Green sheet left on chart for increased oxygen need and pt to be tested on 2L. Pt states no concerns with going home at time of discharge. Pt states is retired. Pt states does not smoke cigarettes or drink ETOH. Pt voices no further concerns/needs at this time. CM to follow for increased home oxygen need, PT/OT evals, and any further discharge planning/needs. Advised pt to ask for CM if any further questions/concerns/needs arise, voices understanding. Pt Goal: Home Plan: [place] JASWINDER PLASCENCIA
[2020-06-21] MEDS: Nadolol 20 MG Tablet 40 MG PO (12:15)
[2020-06-21] MEDS: Nystatin Powder 15gm Bottle 1 APPLIC TOPICAL ×2 (12:15→21:23)
[2020-06-21 12:41] LABS: Bedside Glucose 371 mg/dL (70-110)
--- NOTE | 2020-06-21 14:12 | PCM.PROGNOTE ---
<Robel Cabrerassica HEAVY DUTY MECHANIC - Last Filed: 06/21/20 14:23> Patient Problems: Active and Suspected Problems Acute and chronic respiratory failure with hypoxia (Acute) Asthma exacerbation (Acute) UTI (urinary tract infection) (Acute) Subjective: Patient seen and examined. Reports improvement in breathing. Continues to have wheezing. Denies cough, fever, chills. Currently on BiPAP. - Physical Exam Vitals/I&O's: Vital Signs Temp Pulse Resp BP Pulse Ox 97.0 F L 82 22 H 135/66 H 95 06/21/20 09:19 06/21/20 11:09 06/21/20 11:09 06/21/20 09:19 06/21/20 11:09 Oxygen Flow Rate (L/min) 3 Oxygen Delivery Method Bi-pap Weight: 323 lb 6.69 oz Body Mass Index (BMI) 57.4 Finger Stick Blood Glucose 154 Intake and Output for Last 24 Hours 06/19/20 06/20/20 06/21/20 23:59 23:59 23:59 Intake Total 150 / 270 1500 / 1500 Output Total 400 / 400 Balance 150 / 270 1100 / 1100 General: Alert, Oriented x3, Cooperative HEENT: Atraumatic, PERRLA, EOMI, Normocephalic Neck: Supple, No JVD, Negative Carotid Bruits Lungs: Diminished, Wheezes Cardiovascular: Regular rate, No murmurs Abdomen: Bowel Sounds Present, Soft, Non Tender, Non-Distended, Obese Extremities: No clubbing, No cyanosis, No edema, Capillary Refill Less than 3 Seconds Skin: No rashes, No breakdown Musculoskeletal: No Tenderness to Palpation of Joints or Extremities Neurological: Cranial nerves II-XII grossly intact, Neuro grossly intact Psych/Mental Status: Normal Affect, Appropriate Microbiology Past 72 Hours 06/20/20 17:30 Urine, Clean Catch Urine Culture - Preliminary Presumptive E. coli 06/20/20 20:30 Mucosa - Nasopharyngeal Respiratory Panel (PCR) - Final 06/20/20 16:35 Mucosa - Nose SARS-CoV-2 Antigen (Rapid) - Final Laboratory Results 06/20/20 16:40: WBC 7.9, RBC 4.68, Hgb 13.5, Hct 40.8, MCV 87.2, MCH 28.8, MCHC 33.1, RDW Std Deviation 42.5, RDW Coeff of Aniceto 13.3, Plt Count 173, MPV 10.1, Immature Gran % (Auto) 0.500, Neut % (Auto) 58.8, Lymph % (Auto) 22.8, [place] % (Auto) 6.4, Eos % (Auto) 10.5 H, Baso % (Auto) 1.0, Absolute Neuts (auto) 4.7, Absolute Lymphs (auto) 1.81, Nucleated RBC % 0 06/20/20 16:40: PT 12.9, INR 1.0, APTT 28.2 06/20/20 16:40: Sodium 137, Potassium 4.4, Chloride 106, Carbon Dioxide 25.0, Anion Gap 6, BUN 10, Creatinine 0.86, Estim Creat Clear Calc 48.19, Est GFR (MDRD) Af Amer 83, Est GFR (MDRD) Non-Af 69, BUN/Creatinine Ratio 11.6, Glucose 246 H, Calcium 9.0, Total Bilirubin 0.40, AST 52 H, ALT 57 H, Alkaline Phosphatase 110, Total Protein 7.4, Albumin 3.4, Globulin 4.0, Albumin/Globulin Ratio 0.8 L 06/20/20 16:40: Lactic Acid 2.2 H* 06/20/20 16:40: Magnesium 1.9 06/20/20 16:40: Procalcitonin 0.13 H 06/20/20 17:30: Urine Color Yellow, Urine Clarity Sl. Cloudy, Urine pH 5.0, Ur Specific [place] 1.025, Urine Protein 30 H, Urine Glucose (UA) 250 H, Urine Ketones 5 H, Urine Occult Blood 10 H, Urine Nitrite Positive H, Urine Bilirubin Negative, Urine Urobilinogen Normal, Ur Leukocyte Esterase 100 H, Urine RBC 0-5 SEEN, Urine WBC 10-25 SEEN, Ur Squamous Epith Cells 0-5 SEEN, Amorphous Sediment 1+ URATE, Urine Bacteria 1+, Urine Mucus 0 SEEN 06/20/20 18:15: Specimen Type ART, Sample Site R Radial, pH 7.33 L, Bicarbonate Actual 26.1 H, Total CO2 28, Base Excess 0, O2 Saturation 100 H, ABG pCO2 49.8 H, ABG pO2 178 H 06/20/20 19:30: POC Glucose 187 H 06/20/20 21:15: Lactic Acid 2.4 H* 06/21/20 00:16: POC Glucose 240 H 06/21/20 06:00: WBC 8.3, RBC 4.36, Hgb 12.5, Hct 38.6, MCV 88.5, MCH 28.7, MCHC 32.4, RDW Std Deviation 43.0, RDW Coeff of Aniceto 13.2, Plt Count 130 L, MPV 10.2, Immature Gran % (Auto) 0.500, Neut % (Auto) 86.0 H, Lymph % (Auto) 11.0 L, [place] % (Auto) 1.9, Eos % (Auto) 0.2, Baso % (Auto) 0.4, Absolute Neuts (auto) 7.2, Absolute Lymphs (auto) 0.92, Nucleated RBC % 0 06/21/20 06:00: Sodium 136, Potassium 4.8, Chloride 107, Carbon Dioxide 24.0, Anion Gap 5, BUN 12, Creatinine 0.66, Estim Creat Clear Calc 41.45, Est GFR (MDRD) Af Amer 112, Est GFR (MDRD) Non-Af 92, BUN/Creatinine Ratio 18.0, Glucose 252 H, Calcium 8.5, Total Bilirubin 0.40, AST 33, ALT 44, Alkaline Phosphatase 88, Total Protein 6.5, Albumin 2.9 L, Globulin 3.6, Albumin/Globulin Ratio 0.8 L 06/21/20 07:21: POC Glucose 280 H 06/21/20 12:13: POC Glucose 371 H Current Medications Acetaminophen (Acetaminophen 325 Mg Tablet) 650 mg PO Q6H PRN PRN PRN Reason: Pain Score 1-10/Temp > 100.7 F Al Hydroxide/Mg Hydroxide (Mag Hydrox/Al Hydrox/Simeth 30 Ml Udc) 30 ml PO Q6H PRN PRN PRN Reason: Gastric Burning Albuterol Sulfate (Albuterol 2.5 Mg/3 Ml Vial.Neb.) 2.5 mg INHALATION Q2H PRN PRN PRN Reason: Dyspnea, wheezing Albuterol/Ipratropium (Ipratropium/Albuterol Sulfate 3 Ml Ampul.Neb) 3 ml INHALATION Q4HWA.RT STACY Last Admin: 06/21/20 11:07 Dose: 3 ml Documented by: Carbamazepine (Carbamazepine 200 Mg Tablet) 200 mg PO QHS STACY Last Admin: 06/21/20 00:21 Dose: 200 mg Documented by: Enoxaparin Sodium (Enoxaparin 40 Mg/0.4 Ml Syringe) 40 mg SC BID [facility] Last Admin: 06/21/20 08:57 Dose: 40 mg Documented by: Famotidine (Famotidine 20 Mg Tablet) 20 mg PO BID [facility] Last Admin: 06/21/20 08:57 Dose: 20 mg Documented by: Fluticasone Propionate (Fluticasone 0.05% 1 [place] Nasal.Sry) 2 spray NASAL DAILY [facility] Last Admin: 06/21/20 09:01 Dose: 2 spray Documented by: Guaifenesin (Guaifenesin 10 Ml Udc (200mg/10ml)) 20 ml PO Q4H PRN PRN PRN Reason: COUGH Hydralazine HCl (Hydralazine 20 Mg/Ml Vial) 10 mg IV Q4H PRN PRN PRN Reason: SBP > 160 Ceftriaxone Sodium (Rocephin) 1 gm in 50 mls @ 100 mls/hr IV Q24 [facility] Last Infusion: 06/21/20 10:32 Dose: Infused Documented by: Insulin Human Lispro (Insulin Lispro 100 Unit/Ml Insuln.Pen) 0 unit SC ACHS [facility]; Protocol Last Admin: 06/21/20 12:14 Dose: 12 u Documented by: Insulin Human Regular (Insulin U-500 Pen) 85 units SC BID [facility] Last Admin: 06/21/20 08:59 Dose: 85 u Documented by: Loperamide HCl (Loperamide 2 Mg Capsule) 2 mg PO Q4H PRN PRN PRN Reason: DIARRHEA/LOOSE STOOLS Loratadine (Loratadine 10 Mg Tablet) 5 mg PO QHS [facility] Last Admin: 06/21/20 00:16 Dose: 5 mg Documented by: Melatonin (Melatonin 3 Mg Tablet) 3 mg PO QHS PRN PRN PRN Reason: INSOMNIA Methylprednisolone (Methylprednisolone 40 Mg/Ml Vial) 40 mg IV Q8 [facility] Last Admin: 06/21/20 05:44 Dose: 40 mg Documented by: Montelukast Sodium (Montelukast 10 Mg Tablet) 10 mg PO DAILY [facility] Last Admin: 06/21/20 08:56 Dose: 10 mg Documented by: Nadolol (Nadolol 20 Mg Tablet) 40 mg PO DAILY [facility] Last Admin: 06/21/20 12:15 Dose: 40 mg Documented by: Nitroglycerin (Nitroglycerin (Inpatient Use) 0.4 Mg Tab.Subl) 0.4 mg SUBLINGUAL Q5M PRN PRN Reason: CARDIAC/CHEST PAIN Non-Formulary Medication (Methylphenidate Hcl [Methylphenidate Er]) 20 mg PO BID [facility] Nystatin (Nystatin Powder 15gm Bottle) 1 applic TOPICAL BID [facility]; Protocol Last Admin: 06/21/20 12:15 Dose: 1 applicatio Documented by: Ondansetron HCl (Ondansetron 4 Mg/2 Ml Vial) 4 mg IV Q8H PRN PRN PRN Reason: NAUSEA/VOMITING Paroxetine HCl (Paroxetine 20 Mg Tablet) 40 mg PO DAILY [facility] Last Admin: 06/21/20 08:57 Dose: 40 mg Documented by: Potassium Chloride (Potassium Chloride 10 Meq Tablet) [facility] Last Admin: 06/21/20 08:56 Dose: 10 meq Documented by: Pramipexole Dihydrochloride (Pramipexole Di-Hcl 0.5 Mg Tablet) 0.5 mg PO QHS [facility] Last Admin: 06/21/20 00:20 Dose: 0.5 mg Documented by: Prochlorperazine Edisylate (Prochlorperazine 10 Mg/2 Ml Vial) 5 mg IV Q4H PRN PRN PRN Reason: Breakthrough Nausea/Vomiting Throat Lozenges (Benzocaine/Menthol 1 Lozenge) 1 lozenge MUCOUS MEM Q2H PRN PRN PRN Reason: SORE THROAT Medical Necessity - Tobacco Use Smoking Status: Former smoker Tobacco Use: Non-smoker Assessment/Plan All Active Problems Acute and chronic respiratory failure with hypoxia (Acute) Asthma exacerbation (Acute) Asthmatic bronchitis (Acute) Suspected 2019-nCoV infection (Ruled-out) Lactic acidosis (Acute) Complicated UTI (urinary tract infection) (Acute) Acute delirium (Acute) USAMA (acute kidney injury) (Acute) Hypokalemia (Acute) Sepsis (Acute) Acute metabolic encephalopathy (Acute) UTI (urinary tract infection) (Acute) Acute severe exacerbation of asthma (Resolved) Staphylococcal pneumonia (Ruled-out) Streptococcal pneumonia (Ruled-out) Acute and chronic respiratory failure with hypoxia (Ruled-out) Cellulitis of right breast (Ruled-out) Influenza (Ruled-out) Acute asthma exacerbation (Resolved) 1. Acute on chronic hypoxic respiratory failure secondary to acute on chronic exacerbation of asthma-continue BiPAP as tolerated. Continue supplement oxygen to maintain O2 at or above 90%. IV Solu-Medrol. Albuterol DuoNeb aerosols. Follows with Dr. Watters who is consulted. Respiratory panel and Covid negative. 2. Acute E. coli cystitis-on IV Rocephin. 3. Lactic acidosis-suspect secondary to #1. Afebrile, no leukocytosis. 4. Type 2 diabetes [id number]-Uxof-Ewryz with sliding scale insulin. 5. Hypertension-continue nadolol regimen. 6. Allergic rhinitis-continue Singulair, levocetirizine regimen. 7. Anxiety/depression/ADD/bipolar-on paroxetine, carbamazepine. 8. Morbid obesity-encouraged diet lifestyle modifications. 9. Celiac disease-on gluten-free diet. 10. DORY-on CPAP nightly. 11. GERD-continue PPI. 12. Restless leg syndrome-on Mirapex. DVT prophylaxis-Lovenox subcu This patient was seen by HIRAL Alarcon under the supervision of Dr. Gold. <Lorenzo Gold - Last Filed: 06/21/20 17:43> Subjective: Seen and examined. Patient on BiPAP. Has significant shortness of breath and wheezing. Denies fever or chills. Has mild chronic cough. Physical exam General: Alert, Oriented x3, Cooperative, morbid obesity BMI 57.3 kg/m? HEENT: Atraumatic, PERRLA, EOMI, Normocephalic Oral: No Gingival or Mucosal Lesions/ Ulcerations Neck: Supple, No JVD, Negative Carotid Bruits Lungs: Air entry diminished in bilateral lungs. Bilateral expiratory wheezing and rhonchi. Dyspnea at rest. On BiPAP. Cardiovascular: Regular rate, Regular Rhythm, Normal S1, Normal S2, No murmurs Abdomen: Bowel Sounds Present, Soft, Non Tender, Non-Distended : No renal angle tenderness. No suprapubic tenderness. Extremities: No edema, Capillary Refill Less than 3 Seconds Skin: No rashes, No breakdown Musculoskeletal: No Tenderness to Palpation of Joints or Extremities Neurological: Cranial nerves II-XII grossly intact, Deep Tendon Reflexes 2+/4 and Symmetrical, Neuro grossly intact Psych/Mental Status: Normal Affect, Appropriate. - Physical Exam Vitals/I&O's: Vital Signs Temp Pulse Resp BP Pulse Ox 97.5 F L 79 18 133/63 H 100 06/21/20 15:20 06/21/20 15:20 06/21/20 15:20 06/21/20 15:20 06/21/20 15:20 Oxygen Flow Rate (L/min) 3 Oxygen Delivery Method Bi-pap Weight: 323 lb 6.69 oz Body Mass Index (BMI) 57.4 Finger Stick Blood Glucose 154 Intake and Output for Last 24 Hours 06/19/20 06/20/20 06/21/20 23:59 23:59 23:59 Intake Total 150 / 270 1500 / 1500 Output Total 400 / 400 Balance 150 / 270 1100 / 1100 Microbiology Past 72 Hours 06/20/20 17:30 Urine, Clean Catch Urine Culture - Preliminary Presumptive E. coli 06/20/20 20:30 Mucosa - Nasopharyngeal Respiratory Panel (PCR) - Final 06/20/20 16:35 Mucosa - Nose SARS-CoV-2 Antigen (Rapid) - Final Laboratory Results 06/20/20 16:40: Lactic Acid 2.2 H* 06/20/20 16:40: Magnesium 1.9 06/20/20 16:40: Procalcitonin 0.13 H 06/20/20 17:30: Urine Color Yellow, Urine Clarity Sl. Cloudy, Urine pH 5.0, Ur Specific [place] 1.025, Urine Protein 30 H, Urine Glucose (UA) 250 H, Urine Ketones 5 H, Urine Occult Blood 10 H, Urine Nitrite Positive H, Urine Bilirubin Negative, Urine Urobilinogen Normal, Ur Leukocyte Esterase 100 H, Urine RBC 0-5 SEEN, Urine WBC 10-25 SEEN, Ur Squamous Epith Cells 0-5 SEEN, Amorphous Sediment 1+ URATE, Urine Bacteria 1+, Urine Mucus 0 SEEN 06/20/20 18:15: Specimen Type ART, Sample Site R Radial, pH 7.33 L, Bicarbonate Actual 26.1 H, Total CO2 28, Base Excess 0, O2 Saturation 100 H, ABG pCO2 49.8 H, ABG pO2 178 H 06/20/20 19:30: POC Glucose 187 H 06/20/20 21:15: Lactic Acid 2.4 H* 06/21/20 00:16: POC Glucose 240 H 06/21/20 06:00: WBC 8.3, RBC 4.36, Hgb 12.5, Hct 38.6, MCV 88.5, MCH 28.7, MCHC 32.4, RDW Std Deviation 43.0, RDW Coeff of Aniceto 13.2, Plt Count 130 L, MPV 10.2, Immature Gran % (Auto) 0.500, Neut % (Auto) 86.0 H, Lymph % (Auto) 11.0 L, [place] % (Auto) 1.9, Eos % (Auto) 0.2, Baso % (Auto) 0.4, Absolute Neuts (auto) 7.2, Absolute Lymphs (auto) 0.92, Nucleated RBC % 0 06/21/20 06:00: Sodium 136, Potassium 4.8, Chloride 107, Carbon Dioxide 24.0, Anion Gap 5, BUN 12, Creatinine 0.66, Estim Creat Clear Calc 41.45, Est GFR (MDRD) Af Amer 112, Est GFR (MDRD) Non-Af 92, BUN/Creatinine Ratio 18.0, Glucose 252 H, Calcium 8.5, Total Bilirubin 0.40, AST 33, ALT 44, Alkaline Phosphatase 88, Total Protein 6.5, Albumin 2.9 L, Globulin 3.6, Albumin/Globulin Ratio 0.8 L 06/21/20 07:21: POC Glucose 280 H 06/21/20 12:13: POC Glucose 371 H Current Medications Acetaminophen (Acetaminophen 325 Mg Tablet) 650 mg PO Q6H PRN PRN PRN Reason: Pain Score 1-10/Temp > 100.7 F Al Hydroxide/Mg Hydroxide (Mag Hydrox/Al Hydrox/Simeth 30 Ml Udc) 30 ml PO Q6H PRN PRN PRN Reason: Gastric Burning Albuterol Sulfate (Albuterol 2.5 Mg/3 Ml Vial.Neb.) 2.5 mg INHALATION Q2H PRN PRN PRN Reason: Dyspnea, wheezing Albuterol/Ipratropium (Ipratropium/Albuterol Sulfate 3 Ml Ampul.Neb) 3 ml INHALATION Q4HWA.RT [facility] Last Admin: 06/21/20 14:58 Dose: 3 ml Documented by: Carbamazepine (Carbamazepine 200 Mg Tablet) 200 mg PO QHS STACY Last Admin: 06/21/20 00:21 Dose: 200 mg Documented by: Enoxaparin Sodium (Enoxaparin 40 Mg/0.4 Ml Syringe) 40 mg SC BID [facility] Last Admin: 06/21/20 08:57 Dose: 40 mg Documented by: Famotidine (Famotidine 20 Mg Tablet) 20 mg PO BID [facility] Last Admin: 06/21/20 08:57 Dose: 20 mg Documented by: Fluticasone Propionate (Fluticasone 0.05% 1 [place] Nasal.Sry) 2 spray NASAL DAILY [facility] Last Admin: 06/21/20 09:01 Dose: 2 spray Documented by: Guaifenesin (Guaifenesin 10 Ml Udc (200mg/10ml)) 20 ml PO Q4H PRN PRN PRN Reason: COUGH Hydralazine HCl (Hydralazine 20 Mg/Ml Vial) 10 mg IV Q4H PRN PRN PRN Reason: SBP > 160 Ceftriaxone Sodium (Rocephin) 1 gm in 50 mls @ 100 mls/hr IV Q24 [facility] Last Infusion: 06/21/20 10:32 Dose: Infused Documented by: Insulin Human Lispro (Insulin Lispro 100 Unit/Ml Insuln.Pen) 0 unit SC ACHS [facility]; Protocol Last Admin: 06/21/20 17:25 Dose: 9 u Documented by: Insulin Human Regular (Insulin U-500 Pen) 85 units SC BID [facility] Last Admin: 06/21/20 08:59 Dose: 85 u Documented by: Loperamide HCl (Loperamide 2 Mg Capsule) 2 mg PO Q4H PRN PRN PRN Reason: DIARRHEA/LOOSE STOOLS Loratadine (Loratadine 10 Mg Tablet) 5 mg PO QHS [facility] Last Admin: 06/21/20 00:16 Dose: 5 mg Documented by: Melatonin (Melatonin 3 Mg Tablet) 3 mg PO QHS PRN PRN PRN Reason: INSOMNIA Methylprednisolone (Methylprednisolone 40 Mg/Ml Vial) 40 mg IV Q8 [facility] Last Admin: 06/21/20 15:52 Dose: 40 mg Documented by: Montelukast Sodium (Montelukast 10 Mg Tablet) 10 mg PO DAILY [facility] Last Admin: 06/21/20 08:56 Dose: 10 mg Documented by: Nadolol (Nadolol 20 Mg Tablet) 40 mg PO DAILY [facility] Last Admin: 06/21/20 12:15 Dose: 40 mg Documented by: Nitroglycerin (Nitroglycerin (Inpatient Use) 0.4 Mg Tab.Subl) 0.4 mg SUBLINGUAL Q5M PRN PRN Reason: CARDIAC/CHEST PAIN Non-Formulary Medication (Methylphenidate Hcl [Methylphenidate Er]) 20 mg PO BID [facility] Nystatin (Nystatin Powder 15gm Bottle) 1 applic TOPICAL BID [facility]; Protocol Last Admin: 06/21/20 12:15 Dose: 1 applicatio Documented by: Ondansetron HCl (Ondansetron 4 Mg/2 Ml Vial) 4 mg IV Q8H PRN PRN PRN Reason: NAUSEA/VOMITING Paroxetine HCl (Paroxetine 20 Mg Tablet) 40 mg PO DAILY [facility] Last Admin: 06/21/20 08:57 Dose: 40 mg Documented by: Potassium Chloride (Potassium Chloride 10 Meq Tablet) [facility] Last Admin: 06/21/20 08:56 Dose: 10 meq Documented by: Pramipexole Dihydrochloride (Pramipexole Di-Hcl 0.5 Mg Tablet) 0.5 mg PO QHS [facility] Last Admin: 06/21/20 00:20 Dose: 0.5 mg Documented by: Prochlorperazine Edisylate (Prochlorperazine 10 Mg/2 Ml Vial) 5 mg IV Q4H PRN PRN PRN Reason: Breakthrough Nausea/Vomiting Throat Lozenges (Benzocaine/Menthol 1 Lozenge) 1 lozenge MUCOUS MEM Q2H PRN PRN PRN Reason: SORE THROAT Assessment/Plan This patient was seen in conjunction with HEAVY D[employer]Y MECHANIC, Jenna. I have independently interviewed and examined the patient and reviewed pertinent history, examination findings, laboratory and plan of management. I have reviewed the note and agree with the documented findings with the few additional points. In brief, patient is 74-year-old female admitted with acute on chronic hypoxic respiratory failure secondary to acute exacerbation of asthma. Patient is admitted on PCU. Currently on BiPAP. Discussed with patient's finance controller Dr. Watters. On IV Solu-Medrol 40 mg every 8 hourly, DuoNeb's scheduled every 4 hourly, albuterol as needed, incentive spirometry and chest physiotherapy. Patient also has acute E. coli cystitis on IV Rocephin. Lactic acidosis most probably secondary to hypoxia. Patient afebrile no leukocytosis. Other comorbidities including type 2 diabetes mellitus, hypertension, allergic rhinitis, anxiety, depression, bipolar, morbid obesity, celiac disease, obstructive sleep apnea and GERD. As mentioned above. I have discussed my assessment with HEAVY DUTY MECHANICJenna and orders have been reviewed. Inpatient E&M: 71893 Subs Hosp L2
--- NOTE | 2020-06-21 15:00 | CPS ---
did not start incentive or pep. patient has been on bipap all day;
[2020-06-21 18:26] LABS: Bedside Glucose 303 mg/dL (70-110)
[2020-06-21 22:16] LABS: Bedside Glucose 305 mg/dL (70-110)
[2020-06-22] VITALS (13 sets, daily range): BP systolic 127–142; BP diastolic 53–91; PULSE 65–89; RESP 12–21; TEMP 36.3–37; O2SAT 94–99
[2020-06-22] MEDS: Ipratropium/Albuterol Sulfate 3 ML AMPUL.NEB INHALATION ×5 (06:51→23:00)
[2020-06-22 07:06] LABS: Bedside Glucose 120 mg/dL (70-110)
[2020-06-22] MEDS: Nadolol 20 MG Tablet 40 MG PO (08:49)
[2020-06-22] MEDS: Fluticasone 0.05% 1 SPRAY NASAL.SRY 2 SPRAY NASAL (08:50)
[2020-06-22] MEDS: Nystatin Powder 15gm Bottle 1 APPLIC TOPICAL ×2 (08:51→20:46)
[2020-06-22] MEDS: Enoxaparin 40 MG/0.4 ML Syringe SC ×2 (08:51→20:47)
[2020-06-22] MEDS: Famotidine 20 MG Tablet PO ×2 (08:52→20:47)
[2020-06-22] MEDS: Paroxetine 20 MG Tablet 40 MG PO (08:52)
[2020-06-22] MEDS: Montelukast 10 MG Tablet PO (08:52)
[2020-06-22] MEDS: Ceftriaxone 1 GM/50 ML BAG IV (10:47)
[2020-06-22] MEDS: Insulin Lispro 100 UNIT/ML INSULN.PEN SC ×3 (10:50→20:48)
[2020-06-22 10:56] LABS: Bedside Glucose 279 mg/dL (70-110)
--- NOTE | 2020-06-22 13:15 | PCM.PROGNOTE ---
<Jenna Cabrera MINE CAPTAIN - Last Filed: 06/22/20 13:48> Patient Problems: Active and Suspected Problems Acute and chronic respiratory failure with hypoxia (Acute) Asthma exacerbation (Acute) UTI (urinary tract infection) (Acute) Subjective: Patient seen and examined. States she feels better on BiPAP however when she returns to nasal cannula, complains of cough and wheezing. Denies fever, chills. - Physical Exam Vitals/I&O's: Vital Signs Temp Pulse Resp BP Pulse Ox 98.0 F 70 20 H 137/89 H 97 06/22/20 09:15 06/22/20 11:43 06/22/20 11:43 06/22/20 09:15 06/22/20 11:43 Oxygen Flow Rate (L/min) 2 Oxygen Delivery Method Bi-pap Weight: 323 lb 6.69 oz Body Mass Index (BMI) 57.4 Finger Stick Blood Glucose 154 Intake and Output for Last 24 Hours 06/20/20 06/21/20 06/22/20 23:59 23:59 23:59 Intake Total 150 / 270 1740 / 2040 830 / 830 Output Total 400 / 400 Balance 150 / 270 1340 / 1640 830 / 830 General: Alert, Oriented x3, Cooperative HEENT: Atraumatic, PERRLA, EOMI, Normocephalic Neck: Supple, No JVD, Negative Carotid Bruits Lungs: Diminished, - - Mild wheezing bilateral bases Cardiovascular: Regular rate, No murmurs Abdomen: Bowel Sounds Present, Soft, Non Tender, Non-Distended, Obese Extremities: No clubbing, No cyanosis, No edema, Capillary Refill Less than 3 Seconds Skin: No rashes, No breakdown Musculoskeletal: No Tenderness to Palpation of Joints or Extremities Neurological: Cranial nerves II-XII grossly intact, Neuro grossly intact Psych/Mental Status: Normal Affect, Appropriate Microbiology Past 72 Hours 06/20/20 17:30 Urine, Clean Catch Urine Culture - Final Presumptive E. coli 06/20/20 20:30 Mucosa - Nasopharyngeal Respiratory Panel (PCR) - Final 06/20/20 16:35 Mucosa - Nose SARS-CoV-2 Antigen (Rapid) - Final Laboratory Results 06/21/20 17:24: POC Glucose 303 H 06/21/20 21:19: POC Glucose 305 H 06/22/20 06:44: POC Glucose 120 H 06/22/20 10:49: POC Glucose 279 H Current Medications Acetaminophen (Acetaminophen 325 Mg Tablet) 650 mg PO Q6H PRN PRN PRN Reason: Pain Score 1-10/Temp > 100.7 F Al Hydroxide/Mg Hydroxide (Mag Hydrox/Al Hydrox/Simeth 30 Ml Udc) 30 ml PO Q6H PRN PRN PRN Reason: Gastric Burning Albuterol Sulfate (Albuterol 2.5 Mg/3 Ml Vial.Neb.) 2.5 mg INHALATION Q2H PRN PRN PRN Reason: Dyspnea, wheezing Albuterol/Ipratropium (Ipratropium/Albuterol Sulfate 3 Ml Ampul.Neb) 3 ml INHALATION Q4HWA.RT [facility] Last Admin: 06/22/20 11:43 Dose: 3 ml Documented by: Carbamazepine (Carbamazepine 200 Mg Tablet) 200 mg PO QHS [facility] Last Admin: 06/21/20 21:24 Dose: 200 mg Documented by: Enoxaparin Sodium (Enoxaparin 40 Mg/0.4 Ml Syringe) 40 mg SC BID [facility] Last Admin: 06/22/20 08:51 Dose: 40 mg Documented by: Famotidine (Famotidine 20 Mg Tablet) 20 mg PO BID [facility] Last Admin: 06/22/20 08:52 Dose: 20 mg Documented by: Fluticasone Propionate (Fluticasone 0.05% 1 [place] Nasal.Sry) 2 spray NASAL DAILY [facility] Last Admin: 06/22/20 08:50 Dose: 2 spray Documented by: Guaifenesin (Guaifenesin 10 Ml Udc (200mg/10ml)) 20 ml PO Q4H PRN PRN PRN Reason: COUGH Hydralazine HCl (Hydralazine 20 Mg/Ml Vial) 10 mg IV Q4H PRN PRN PRN Reason: SBP > 160 Ceftriaxone Sodium (Rocephin) 1 gm in 50 mls @ 100 mls/hr IV Q24 [facility] Last Infusion: 06/22/20 12:45 Dose: Infused Documented by: Insulin Human Lispro (Insulin Lispro 100 Unit/Ml Insuln.Pen) 0 unit SC ACHS [facility]; Protocol Last Admin: 06/22/20 10:50 Dose: 9 u Documented by: Insulin Human Regular (Insulin U-500 Pen) 85 units SC BID [facility] Last Admin: 06/22/20 08:51 Dose: 85 u Documented by: Loperamide HCl (Loperamide 2 Mg Capsule) 2 mg PO Q4H PRN PRN PRN Reason: DIARRHEA/LOOSE STOOLS Loratadine (Loratadine 10 Mg Tablet) 5 mg PO QHS [facility] Last Admin: 06/21/20 21:24 Dose: 5 mg Documented by: Melatonin (Melatonin 3 Mg Tablet) 3 mg PO QHS PRN PRN PRN Reason: INSOMNIA Methylprednisolone (Methylprednisolone 40 Mg/Ml Vial) 40 mg IV Q8 [facility] Last Admin: 06/22/20 06:45 Dose: 40 mg Documented by: Montelukast Sodium (Montelukast 10 Mg Tablet) 10 mg PO DAILY [facility] Last Admin: 06/22/20 08:52 Dose: 10 mg Documented by: Nadolol (Nadolol 20 Mg Tablet) 40 mg PO DAILY [facility] Last Admin: 06/22/20 08:49 Dose: 40 mg Documented by: Nitroglycerin (Nitroglycerin (Inpatient Use) 0.4 Mg Tab.Subl) 0.4 mg SUBLINGUAL Q5M PRN PRN Reason: CARDIAC/CHEST PAIN Non-Formulary Medication (Methylphenidate Hcl [Methylphenidate Er]) 20 mg PO BID [facility] Nystatin (Nystatin Powder 15gm Bottle) 1 applic TOPICAL BID [facility]; Protocol Last Admin: 06/22/20 08:51 Dose: 1 applicatio Documented by: Ondansetron HCl (Ondansetron 4 Mg/2 Ml Vial) 4 mg IV Q8H PRN PRN PRN Reason: NAUSEA/VOMITING Paroxetine HCl (Paroxetine 20 Mg Tablet) 40 mg PO DAILY [facility] Last Admin: 06/22/20 08:52 Dose: 40 mg Documented by: Potassium Chloride (Potassium Ch[facility] 10 Meq Tablet) [facility] Admin: 06/22/20 08:49 Dose: 10 meq Documented by: Pramipexole Dihydrochloride (Pramipexole Di-Hcl 0.5 Mg Tablet) 0.5 mg PO QHS [facility] Last Admin: 06/21/20 21:24 Dose: 0.5 mg Documented by: Prochlorperazine Edisylate (Prochlorperazine 10 Mg/2 Ml Vial) 5 mg IV Q4H PRN PRN PRN Reason: Breakthrough Nausea/Vomiting Throat Lozenges (Benzocaine/Menthol 1 Lozenge) 1 lozenge MUCOUS MEM Q2H PRN PRN PRN Reason: SORE THROAT Medical Necessity - Tobacco Use Smoking Status: Former smoker Tobacco Use: Non-smoker Assessment/Plan All Active Problems Acute and chronic respiratory failure with hypoxia (Acute) Asthma exacerbation (Acute) Asthmatic bronchitis (Acute) Suspected 2019-nCoV infection (Ruled-out) Lactic acidosis (Acute) Complicated UTI (urinary tract infection) (Acute) Acute delirium (Acute) USAMA (acute kidney injury) (Acute) Hypokalemia (Acute) Sepsis (Acute) Acute metabolic encephalopathy (Acute) UTI (urinary tract infection) (Acute) Acute severe exacerbation of asthma (Resolved) Staphylococcal pneumonia (Ruled-out) Streptococcal pneumonia (Ruled-out) Acute and chronic respiratory failure with hypoxia (Ruled-out) Cellulitis of right breast (Ruled-out) Influenza (Ruled-out) Acute asthma exacerbation (Resolved) 1. Acute on chronic hypoxic respiratory failure secondary to acute on chronic exacerbation of asthma-continue BiPAP as tolerated. Continue supplement oxygen to maintain O2 at or above 90%. IV Solu-Medrol. Albuterol DuoNeb aerosols. Follows with Dr. Watters who is consulted. Respiratory panel and Covid negative. 2. Acute E. coli cystitis-on IV Rocephin. 3. Lactic acidosis-suspect secondary to #1. Afebrile, no leukocytosis. 4. Type 2 diabetes [id number]-[id number] with sliding scale insulin. 5. Hypertension-continue nadolol regimen. 6. Allergic rhinitis-continue Singulair, levocetirizine regimen. 7. Anxiety/depression/ADD/bipolar-on paroxetine, carbamazepine. 8. Morbid obesity-encouraged diet lifestyle modifications. 9. Celiac disease-on gluten-free diet. 10. 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 11. GERD-continue PPI. 12. Restless leg syndrome-on Mirapex. DVT prophylaxis-Lovenox subcu This patient was seen by HIRAL Alarcon under the supervision of Dr. Gold. <Lorenzo Gold - Last Filed: 06/22/20 16:29> Subjective: Patient shortness of breath and wheezing is better. Patient still has cough and mild shortness of breath. Physical exam General: Alert, Oriented x3, Cooperative, morbid obesity BMI 57.3 kg/m? HEENT: Atraumatic, PERRLA, EOMI, Normocephalic Oral: No Gingival or Mucosal Lesions/ Ulcerations Neck: Supple, No JVD, Negative Carotid Bruits Lungs: Air entry diminished in bilateral lungs. Bilateral expiratory wheezing and rhonchi improving. On BiPAP as needed and at night. Cardiovascular: Regular rate, Regular Rhythm, Normal S1, Normal S2, No murmurs Abdomen: Bowel Sounds Present, Soft, Non Tender, Non-Distended : No renal angle tenderness. No suprapubic tenderness. Extremities: No edema, Capillary Refill Less than 3 Seconds Skin: No rashes, No breakdown Musculoskeletal: No Tenderness to Palpation of Joints or Extremities Neurological: Cranial nerves II-XII grossly intact, Deep Tendon Reflexes 2+/4 and Symmetrical, Neuro grossly intact Psych/Mental Status: Normal Affect, Appropriate. - Physical Exam Vitals/I&O's: Vital Signs Temp Pulse Resp BP Pulse Ox 98.6 F 89 21 H 133/91 H 97 06/22/20 15:01 06/22/20 15:01 06/22/20 15:41 06/22/20 15:01 06/22/20 15:01 Oxygen Flow Rate (L/min) 2 Oxygen Delivery Method Nasal Cannula Weight: 327 lb 2.656 oz Body Mass Index (BMI) 57.4 Finger Stick Blood Glucose 154 Intake and Output for Last 24 Hours 06/20/20 06/21/20 06/22/20 23:59 23:59 23:59 Intake Total 150 / 270 1740 / 2040 830 / 830 Output Total 400 / 400 Balance 150 / 270 1340 / 1640 830 / 830 Microbiology Past 72 Hours 06/20/20 17:30 Urine, Clean Catch Urine Culture - Final Presumptive E. coli 06/20/20 20:30 Mucosa - Nasopharyngeal Respiratory Panel (PCR) - Final 06/20/20 16:35 Mucosa - Nose SARS-CoV-2 Antigen (Rapid) - Final Laboratory Results 06/21/20 17:24: POC Glucose 303 H 06/21/20 21:19: POC Glucose 305 H 06/22/20 06:44: POC Glucose 120 H 06/22/20 10:49: POC Glucose 279 H 06/22/20 16:07: POC Glucose 286 H Current Medications Acetaminophen (Acetaminophen 325 Mg Tablet) 650 mg PO Q6H PRN PRN PRN Reason: Pain Score 1-10/Temp > 100.7 F Al Hydroxide/Mg Hydroxide (Mag Hydrox/Al Hydrox/Simeth 30 Ml Udc) 30 ml PO Q6H PRN PRN PRN Reason: Gastric Burning Albuterol Sulfate (Albuterol 2.5 Mg/3 Ml Vial.Neb.) 2.5 mg INHALATION Q2H PRN PRN PRN Reason: Dyspnea, wheezing Albuterol/Ipratropium (Ipratropium/Albuterol Sulfate 3 Ml Ampul.Neb) 3 ml INHALATION Q4HWA.RT [facility] Last Admin: 06/22/20 15:41 Dose: 3 ml Documented by: Carbamazepine (Carbamazepine 200 Mg Tablet) 200 mg PO QHS [facility] Last Admin: 06/21/20 21:24 Dose: 200 mg Documented by: Enoxaparin Sodium (Enoxaparin 40 Mg/0.4 Ml Syringe) 40 mg SC BID [facility] Last Admin: 06/22/20 08:51 Dose: 40 mg Documented by: Famotidine (Famotidine 20 Mg Tablet) 20 mg PO BID [facility] Last Admin: 06/22/20 08:52 Dose: 20 mg Documented by: Fluticasone Propionate (Fluticasone 0.05% 1 [place] Nasal.Sry) 2 spray NASAL DAILY [facility] Last Admin: 06/22/20 08:50 Dose: 2 spray Documented by: Guaifenesin (Guaifenesin 10 Ml Udc (200mg/10ml)) 20 ml PO Q4H PRN PRN PRN Reason: COUGH Hydralazine HCl (Hydralazine 20 Mg/Ml Vial) 10 mg IV Q4H PRN PRN PRN Reason: SBP > 160 Ceftriaxone Sodium (Rocephin) 1 gm in 50 mls @ 100 mls/hr IV Q24 [facility] Last Infusion: 06/22/20 12:45 Dose: Infused Documented by: Insulin Human Lispro (Insulin Lispro 100 Unit/Ml Insuln.Pen) 0 unit SC [facility]; Protocol Last Admin: 06/22/20 16:09 Dose: 9 u Documented by: Insulin Human Regular (Insulin U-500 Pen) 85 units SC BID [facility] Last Admin: 06/22/20 08:51 Dose: 85 u Documented by: Loperamide HCl (Loperamide 2 Mg Capsule) 2 mg PO Q4H PRN PRN PRN Reason: DIARRHEA/LOOSE STOOLS Loratadine (Loratadine 10 Mg Tablet) 5 mg PO QHS [facility] Last Admin: 06/21/20 21:24 Dose: 5 mg Documented by: Melatonin (Melatonin 3 Mg Tablet) 3 mg PO QHS PRN PRN PRN Reason: INSOMNIA Methylprednisolone (Methylprednisolone 40 Mg/Ml Vial) 40 mg IV Q8 [facility] Last Admin: 06/22/20 14:16 Dose: 40 mg Documented by: Montelukast Sodium (Montelukast 10 Mg Tablet) 10 mg PO DAILY [facility] Last Admin: 06/22/20 08:52 Dose: 10 mg Documented by: Nadolol (Nadolol 20 Mg Tablet) 40 mg PO DAILY [facility] Last Admin: 06/22/20 08:49 Dose: 40 mg Documented by: Nitroglycerin (Nitroglycerin (Inpatient Use) 0.4 Mg Tab.Subl) 0.4 mg SUBLINGUAL Q5M PRN PRN Reason: CARDIAC/CHEST PAIN Non-Formulary Medication (Methylphenidate Hcl [Methylphenidate Er]) 20 mg PO BID [facility] Nystatin (Nystatin Powder 15gm Bottle) 1 applic TOPICAL BID [facility]; Protocol Last Admin: 06/22/20 08:51 Dose: 1 applicatio Documented by: Ondansetron HCl (Ondansetron 4 Mg/2 Ml Vial) 4 mg IV Q8H PRN PRN PRN Reason: NAUSEA/VOMITING Paroxetine HCl (Paroxetine 20 Mg Tablet) 40 mg PO DAILY [facility] Last Admin: 06/22/20 08:52 Dose: 40 mg Documented by: Potassium Chloride (Potassium Chloride 10 Meq Tablet) [facility] Last Admin: 06/22/20 08:49 Dose: 10 meq Documented by: Pramipexole Dihydrochloride (Pramipexole Di-Hcl 0.5 Mg Tablet) 0.5 mg PO QHS [facility] Last Admin: 06/21/20 21:24 Dose: 0.5 mg Documented by: Prochlorperazine Edisylate (Prochlorperazine 10 Mg/2 Ml Vial) 5 mg IV Q4H PRN PRN PRN Reason: Breakthrough Nausea/Vomiting Throat Lozenges (Benzocaine/Menthol 1 Lozenge) 1 lozenge MUCOUS MEM Q2H PRN PRN PRN Reason: SORE THROAT Assessment/Plan This patient was seen in conjunction with Jenna BYRD. I have independently interviewed and examined the patient and reviewed pertinent history, examination findings, laboratory and plan of management. I have reviewed the note and agree with the documented findings with the few additional points. In brief, patient is 74-year-old female admitted with acute on chronic hypoxic respiratory failure secondary to acute exacerbation of asthma. Patient is admitted on PCU. Currently on BiPAP. Discussed with patient's joiner Dr. Watters. On IV Solu-Medrol 40 mg every 8 hourly, DuoNeb's scheduled every 4 hourly, albuterol as needed, incentive spirometry and chest physiotherapy. Continue neb and IV Solu-Medrol treatment Patient also has acute E. coli cystitis on IV Rocephin. Lactic acidosis most probably secondary to hypoxia. Patient afebrile no leukocytosis. Other comorbidities including type 2 diabetes mellitus, hypertension, allergic rhinitis, anxiety, depression, bipolar, morbid obesity, celiac disease, obstructive sleep apnea and GERD. As mentioned above. I have discussed my assessment with Jenna BYRD and orders have been reviewed. Inpatient E&M: 01761 Subs Hosp L2
[2020-06-22 16:16] LABS: Bedside Glucose 286 mg/dL (70-110)
--- NOTE | 2020-06-22 20:45 | NURSING ---
Pt requesting to have meds given early.
[2020-06-22] MEDS: Pramipexole Di-HCl 0.5 MG Tablet PO (20:46)
[2020-06-22] MEDS: Loratadine 10 MG Tablet 5 MG PO (20:46)
[2020-06-22] MEDS: carBAMazepine 200 MG Tablet PO (20:47)
[2020-06-22 21:16] LABS: Bedside Glucose 404 mg/dL (70-110)
[2020-06-23] VITALS (10 sets, daily range): BP systolic 115–146; BP diastolic 52–64; PULSE 63–75; RESP 12–22; TEMP 36.1–36.6; O2SAT 93–100
--- NOTE | 2020-06-23 02:14 | PCS.PANDOC ---
PANDEMIC DOCUMENTATION INITIATED: Date: 06/20/20 Time: 18:40
[2020-06-23 06:45] LABS: Bedside Glucose 143 mg/dL (70-110)
[2020-06-23] MEDS: Ipratropium/Albuterol Sulfate 3 ML AMPUL.NEB INHALATION ×2 (07:18→11:32)
[2020-06-23] MEDS: Fluticasone 0.05% 1 SPRAY NASAL.SRY 2 SPRAY NASAL (08:44)
[2020-06-23] MEDS: Nadolol 20 MG Tablet 40 MG PO (08:44)
[2020-06-23] MEDS: Nystatin Powder 15gm Bottle 1 APPLIC TOPICAL (08:45)
[2020-06-23] MEDS: Paroxetine 20 MG Tablet 40 MG PO (08:45)
[2020-06-23] MEDS: Enoxaparin 40 MG/0.4 ML Syringe SC (08:45)
[2020-06-23] MEDS: Famotidine 20 MG Tablet PO (08:46)
[2020-06-23] MEDS: Montelukast 10 MG Tablet PO (08:49)
[2020-06-23] MEDS: Ceftriaxone 1 GM/50 ML BAG IV (10:20)
--- NOTE | 2020-06-23 11:10 | PCM.DC ---
- Discharge Diagnoses Current Active Problems: Current Active and Chronic Problems Acute and chronic respiratory failure with hypoxia (Acute) Asthma exacerbation (Acute) UTI (urinary tract infection) (Acute) Chronic respiratory failure with hypoxia (Chronic) Hypertension (Chronic) Restless leg syndrome (Chronic) Osteoarthritis (Chronic) Celiac disease (Chronic) Asthma (Chronic) History of right breast cancer (Chronic) Sleep apnea (Chronic) Diabetes mellitus, type II (Chronic) Anxiety and depression (Chronic) You will use the following diet at home:: Calorie/Carbohydrate Controlled (specify 1200, 1400, etc) Discharge Activity: Return to Normal Activity Call your doctor if you observe: Fever of 101 or Higher, Shortness of breath, Dizziness, Fainting spells, Chest pain Allergies/Adverse Reactions: Allergies adhesive tape Allergy (Verified 06/20/20 16:13) Unknown listed on pcp allergy list cefadroxil [From Duricef] Allergy (Verified 06/20/20 16:13) Unknown gluten Allergy (Verified 06/20/20 16:13) Other Celiac disease mesalamine [From Asacol] Allergy (Verified 06/20/20 16:13) Unknown listed on pcp allergy list omalizumab [From Xolair] Allergy (Verified 06/20/20 16:13) Unknown listed on pcp allergy list Sulfa (Sulfonamide Antibiotics) Allergy (Verified 06/20/20 16:13) Unknown oxycodone Adverse Reaction (Verified 06/20/20 16:13) Vomiting Medications to take at Discharge Cholecalciferol (Vitamin D3) [Vitamin D3] 50,000 unit PO SUWE@0800 06/01/17 Pramipexole Di-HCl [Mirapex] 0.5 mg PO QHS 06/01/17 Albuterol Aerosols [Ventolin Aerosols] 2.5 mg INHALATION Q2H PRN PRN #1 box 11/26/17 Albuterol IH (ProAir) [Proair Hfa] 2 puff INHALATION Q6H PRN PRN 03/25/18 Budesonide [Rhinocort Allergy] 2 puff NARES DAILY 06/12/18 Carbamazepine 200 mg PO QHS 03/01/19 Methylphenidate HCl [Methylphenidate ER] 20 mg PO BID 03/01/19 Nadolol [Corgard (Beta Tiffanie)] 40 mg PO DAILY 03/01/19 Paroxetine HCl [Paxil] 40 mg PO DAILY 03/01/19 Loperamide [Imodium] 2 mg PO Q4H PRN PRN cap 10/08/19 Insulin U-500 [Humulin R U-500 ([facility])] 85 units SQ BID 03/22/20 Levocetirizine Dihydrochloride [Xyzal] 5 mg PO QHS 03/22/20 Montelukast [Singulair] 10 mg PO DAILY 03/22/20 Nystatin Powder [Mycostatin Powder] 1 applic TOPICAL BID 03/22/20 Potassium Chloride [K-Dur] 10 meq PO DAILYCM 03/22/20 Cephalexin [Keflex] 500 mg PO Q6 #20 cap 06/23/20 Prednisone See Taper PO DAILY #30 tab 06/23/20 The following prescriptions were given: Cephalexin [Keflex] 500 mg PO Q6 #20 cap Transmission Status: Pending to [facility] Prednisone See Taper PO DAILY #30 tab Transmission Status: Pending to [facility] Primary Care Physician: Senait Jay MD [Primary Care Provider] - Please follow up with your Primary Care Physician in: 1 Week Test Results: Test results from this visit will be discussed in further detail at your follow-up appointment, if applicable. Please Follow Up With: Dre Watters MD When: 1 Week Proposed Discharge Date: 06/23/20
--- NOTE | 2020-06-23 11:13 | DS.PCM_ITS ---
<Jenna Cabrera CROWN PERFORATOR OPERATOR - Last Filed: 06/23/20 11:22> Discharge Date and Diagnosis - Problem List Patient Problems: Active and Suspected Problems Acute and chronic respiratory failure with hypoxia (Acute) Asthma exacerbation (Acute) UTI (urinary tract infection) (Acute) Date of Admission: 06/20/20 Date of Discharge: 06/23/20 - Primary Discharge Diagnosis Acute Problems: Active Problems 1. Acute on chronic hypoxic respiratory failure secondary to acute on chronic exacerbation of asthma 2. Acute E. coli cystitis 3. Lactic acidosis-suspect secondary to #1. 4. Type 2 diabetes mellitus 5. Hypertension 6. Allergic rhinitis 7. Anxiety/depression/ADD/bipolar 8. Morbid obesity 9. Celiac disease 10. DORY 11. GERD 12. Restless leg syndrome - Secondary Discharge Diagnosis Chronic Problems: Chronic Problems Chronic respiratory failure with hypoxia (Chronic) Breast cancer, right breast (Chronic) Vitamin D deficiency (Chronic) Hypertension (Chronic) Diabetes mellitus (Chronic) Allergic rhinitis (Chronic) GERD (gastroesophageal reflux disease) (Chronic) Restless leg syndrome (Chronic) Body mass index (BMI) 50-59.9, adult (Chronic) Migraine headache (Chronic) Obstructive sleep apnea (Chronic) Osteoarthritis (Chronic) Celiac disease (Chronic) Asthma (Chronic) BMI 50.0-59.9, adult (Chronic) History of right breast cancer (Chronic) Sleep apnea (Chronic) Diabetes mellitus, type II (Chronic) Anxiety and depression (Chronic) Hospital Course and Treatment Imaging Results: Diagnostic Data Chest X-Ray 06/20/20 17:11 IMPRESSION: No acute pulmonary process Electronically Signed: Yong Ordonez MD at 17:29 EST , Service support , Dr. Watters- Pulmonary Medicine Operations: None Procedures: None Summary of Care Provided: The patient is a 74 year old F admitted 06/20/2020 due to dyspnea and wheezing. 1. Acute on chronic hypoxic respiratory failure secondary to acute on chronic exacerbation of asthma-BiPAP placed on admission. IV Solu-Medrol, transition to prednisone taper at discharge. Patient on baseline home O2 requirements. Shortness of breath improved. Continue home supplemental oxygen and BiPAP. Follows with Dr. Watters, follow-up in 1 week. Respiratory panel and Covid negative. 2. Acute E. coli cystitis-IV Rocephin during admission, transition to Keflex to complete course at discharge. 3. Lactic acidosis-suspect secondary to #1. Afebrile, no leukocytosis. 4. Type 2 diabetes mellitus-continue home insulin regimen. 5. Hypertension-continue nadolol regimen. 6. Allergic rhinitis-continue Singulair, levocetirizine regimen. 7. Anxiety/depression/ADD/bipolar-on paroxetine, carbamazepine. 8. Morbid obesity-encouraged diet lifestyle modifications. 9. Celiac disease-on gluten-free diet. 10. 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 11. GERD-continue PPI. 12. Restless leg syndrome-on Mirapex. General: Alert, Oriented x3, Cooperative HEENT: Atraumatic, PERRLA, EOMI, Normocephalic Neck: Supple, No JVD, Negative Carotid Bruits Lungs: Diminished, - - Mild wheezing bilateral bases Cardiovascular: Regular rate, No murmurs Abdomen: Bowel Sounds Present, Soft, Non Tender, Non-Distended, Obese Extremities: No clubbing, No cyanosis, No edema, Capillary Refill Less than 3 Seconds Skin: No rashes, No breakdown Musculoskeletal: No Tenderness to Palpation of Joints or Extremities Neurological: Cranial nerves II-XII grossly intact, Neuro grossly intact Psych/Mental Status: Normal Affect, Appropriate Patient seen and examined prior to discharge. Physical assessment as noted above. Patient is stable for discharge with follow up recommendations as noted above. This patient was seen by HIRAL Alarcon under the supervision of Dr. Gold. Patient Problems: Active and Suspected Problems Acute and chronic respiratory failure with hypoxia (Acute) Asthma exacerbation (Acute) UTI (urinary tract infection) (Acute) - Physical Exam Vitals/I&O's: Vital Signs Temp Pulse Resp BP Pulse Ox 97.2 F L 65 19 H 115/52 L 100 06/23/20 08:30 06/23/20 10:42 06/23/20 08:30 06/23/20 08:30 06/23/20 08:30 Oxygen Flow Rate (L/min) 2 Oxygen Delivery Method Bi-pap Weight: 318 lb 2.032 oz Body Mass Index (BMI) 57.4 Finger Stick Blood Glucose 154 Intake and Output for Last 24 Hours 06/21/20 06/22/20 06/23/20 23:59 23:59 23:59 Intake Total 1740 / 2040 1310 / 1310 170 / 170 Output Total 400 / 400 Balance 1340 / 1640 1310 / 1310 170 / 170 Microbiology Past 72 Hours 06/20/20 17:25 Blood Culture (Wb) - Left Hand Blood Culture - Preliminary No growth in 48 hours. 06/20/20 16:40 Blood Culture (Wb) - Left Hand Blood Culture - Preliminary No growth in 48 hours. 06/20/20 17:30 Urine, Clean Catch Urine Culture - Final Presumptive E. coli 06/20/20 20:30 Mucosa - Nasopharyngeal Respiratory Panel (PCR) - Final 06/20/20 16:35 Mucosa - Nose SARS-CoV-2 Antigen (Rapid) - Final Laboratory Results 06/22/20 16:07: POC Glucose 286 H 06/22/20 20:44: POC Glucose 404 H 06/23/20 06:39: POC Glucose 143 H Current Medications Acetaminophen (Acetaminophen 325 Mg Tablet) 650 mg PO Q6H PRN PRN PRN Reason: Pain Score 1-10/Temp > 100.7 F Al Hydroxide/Mg Hydroxide (Mag Hydrox/Al Hydrox/Simeth 30 Ml Udc) 30 ml PO Q6H PRN PRN PRN Reason: Gastric Burning Albuterol Sulfate (Albuterol 2.5 Mg/3 Ml Vial.Neb.) 2.5 mg INHALATION Q2H PRN PRN PRN Reason: Dyspnea, wheezing Albuterol/Ipratropium (Ipratropium/Albuterol Sulfate 3 Ml Ampul.Neb) 3 ml INHALATION Q4HWA.RT [facility] Last Admin: 06/23/20 07:18 Dose: 3 ml Documented by: Carbamazepine (Carbamazepine 200 Mg Tablet) 200 mg PO QHS [facility] Last Admin: 06/22/20 20:47 Dose: 200 mg Documented by: Enoxaparin Sodium (Enoxaparin 40 Mg/0.4 Ml Syringe) 40 mg SC BID [facility] Last Admin: 06/23/20 08:45 Dose: 40 mg Documented by: Famotidine (Famotidine 20 Mg Tablet) 20 mg PO BID [facility] Last Admin: 06/23/20 08:46 Dose: 20 mg Documented by: Fluticasone Propionate (Fluticasone 0.05% 1 [place] Nasal.Sry) 2 spray NASAL DAILY [facility] Last Admin: 06/23/20 08:44 Dose: 2 spray Documented by: Guaifenesin (Guaifenesin 10 Ml Udc (200mg/10ml)) 20 ml PO Q4H PRN PRN PRN Reason: COUGH Hydralazine HCl (Hydralazine 20 Mg/Ml Vial) 10 mg IV Q4H PRN PRN PRN Reason: SBP > 160 Ceftriaxone Sodium (Rocephin) 1 gm in 50 mls @ 100 mls/hr IV Q24 [facility] Last Infusion: 06/23/20 10:50 Dose: Infused Documented by: Insulin Human Lispro (Insulin Lispro 100 Unit/Ml Insuln.Pen) 0 unit SC ACHS [facility]; Protocol Last Admin: 06/23/20 06:41 Dose: Not Given Documented by: Insulin Human Regular (Insulin U-500 Pen) 85 units SC BID [facility] Last Admin: 06/23/20 08:51 Dose: 85 u Documented by: Loperamide HCl (Loperamide 2 Mg Capsule) 2 mg PO Q4H PRN PRN PRN Reason: DIARRHEA/LOOSE STOOLS Loratadine (Loratadine 10 Mg Tablet) 5 mg PO QHS [facility] Last Admin: 06/22/20 20:46 Dose: 5 mg Documented by: Melatonin (Melatonin 3 Mg Tablet) 3 mg PO QHS PRN PRN PRN Reason: INSOMNIA Methylprednisolone (Methylprednisolone 40 Mg/Ml Vial) 40 mg IV Q8 [facility] Last Admin: 06/23/20 05:12 Dose: 40 mg Documented by: Montelukast Sodium (Montelukast 10 Mg Tablet) 10 mg PO DAILY [facility] Last Admin: 06/23/20 08:49 Dose: 10 mg Documented by: Nadolol (Nadolol 20 Mg Tablet) 40 mg PO DAILY [facility] Last Admin: 06/23/20 08:44 Dose: 40 mg Documented by: Nitroglycerin (Nitroglycerin (Inpatient Use) 0.4 Mg Tab.Subl) 0.4 mg SUBLINGUAL Q5M PRN PRN Reason: CARDIAC/CHEST PAIN Non-Formulary Medication (Methylphenidate Hcl [Methylphenidate Er]) 20 mg PO BID [facility] Nystatin (Nystatin Powder 15gm Bottle) 1 applic TOPICAL BID [facility]; Protocol Last Admin: 06/23/20 08:45 Dose: 1 applicatio Documented by: Ondansetron HCl (Ondansetron 4 Mg/2 Ml Vial) 4 mg IV Q8H PRN PRN PRN Reason: NAUSEA/VOMITING Paroxetine HCl (Paroxetine 20 Mg Tablet) 40 mg PO DAILY [facility] Last Admin: 06/23/20 08:45 Dose: 40 mg Documented by: Potassium Chloride (Potassium [facility] 10 Meq Tablet) [facility] Admin: 06/23/20 08:44 Dose: 10 meq Documented by: Pramipexole Dihydrochloride (Pramipexole Di-Hcl 0.5 Mg Tablet) 0.5 mg PO QHS [facility] Last Admin: 06/22/20 20:46 Dose: 0.5 mg Documented by: Prochlorperazine Edisylate (Prochlorperazine 10 Mg/2 Ml Vial) 5 mg IV Q4H PRN PRN PRN Reason: Breakthrough Nausea/Vomiting Throat Lozenges (Benzocaine/Menthol 1 Lozenge) 1 lozenge MUCOUS MEM Q2H PRN PRN PRN Reason: SORE THROAT Discharge Diet: 1800 Calorie Control Diet, Carb Control Diet Discharge Activity: Return to Normal Activity Call your doctor if you observe: Fever of 101 or Higher, Shortness of breath, Dizziness, Fainting spells, Chest pain Home Medications: Medications to take at Discharge Cholecalciferol (Vitamin D3) [Vitamin D3] 50,000 unit PO SUWE@0800 06/01/17 Pramipexole Di-HCl [Mirapex] 0.5 mg PO QHS 06/01/17 Albuterol Aerosols [Ventolin Aerosols] 2.5 mg INHALATION Q2H PRN PRN #1 box 11/26/17 Albuterol IH (ProAir) [Proair Hfa] 2 puff INHALATION Q6H PRN PRN 03/25/18 Budesonide [Rhinocort Allergy] 2 puff NARES DAILY 06/12/18 Carbamazepine 200 mg PO QHS 03/01/19 Methylphenidate HCl [Methylphenidate ER] 20 mg PO BID 03/01/19 Nadolol [Corgard (Beta Tiffanie)] 40 mg PO DAILY 03/01/19 Paroxetine HCl [Paxil] 40 mg PO DAILY 03/01/19 Loperamide [Imodium] 2 mg PO Q4H PRN PRN cap 10/08/19 Insulin U-500 [Humulin R U-500 ([facility]KC)] 85 units SQ BID 03/22/20 Levocetirizine Dihydrochloride [Xyzal] 5 mg PO QHS 03/22/20 Montelukast [Singulair] 10 mg PO DAILY 03/22/20 Nystatin Powder [Mycostatin Powder] 1 applic TOPICAL BID 03/22/20 Potassium Chloride [K-Dur] 10 meq PO DAILYCM 03/22/20 Cephalexin [Keflex] 500 mg PO Q6 #20 cap 06/23/20 Prednisone See Taper PO DAILY #30 tab 06/23/20 Following Prescriptions Were Given to Patient: Cephalexin [Keflex] 500 mg PO Q6 #20 cap Transmission Status: Received by ERNIE MONTOYA[facility]1953 [facility] Prednisone See Taper PO DAILY #30 tab Transmission Status: Received by ERNIE MONTOYA-1953 [facility] Primary Care Physician: Senait Jay MD [Primary Care Provider] - Please follow up with your Primary Care Physician in: 1 Week Please Follow Up With: Dre Watters MD When: 1 Week Disposition: Home Minutes spent on discharge:: 35 Patient Condition:: Stable Medical Necessity - Tobacco Use Smoking Status: Former smoker Tobacco Use: Non-smoker Meaningful Use Info Meaningful Use Diagnoses (Choose all that apply): None applicable <AsifLorenzo - Last Filed: 06/23/20 16:01> Discharge Date and Diagnosis - Primary Discharge Diagnosis Acute Problems: Active Problems Acute and chronic respiratory failure with hypoxia (Acute) Asthma exacerbation (Acute) UTI (urinary tract infection) (Acute) - Secondary Discharge Diagnosis Chronic Problems: Chronic Problems Chronic respiratory failure with hypoxia (Chronic) Breast cancer, right breast (Chronic) Vitamin D deficiency (Chronic) Hypertension (Chronic) Diabetes mellitus (Chronic) Allergic rhinitis (Chronic) GERD (gastroesophageal reflux disease) (Chronic) Restless leg syndrome (Chronic) Body mass index (BMI) 50-59.9, adult (Chronic) Migraine headache (Chronic) Obstructive sleep apnea (Chronic) Osteoarthritis (Chronic) Celiac disease (Chronic) Asthma (Chronic) BMI 50.0-59.9, adult (Chronic) History of right breast cancer (Chronic) Sleep apnea (Chronic) Diabetes mellitus, type II (Chronic) Anxiety and depression (Chronic) Hospital Course and Treatment Summary of Care Provided: This patient was seen in conjunction with CROWN PERFORATOR OPERATORJenna. I have independently i nterviewed and examined the patient and reviewed pertinent history, examination findings, laboratory and plan of management. I have reviewed the note and agree with the documented findings with the few additional points. In brief, patient is 74-year-old female admitted with acute on chronic hypoxic respiratory failure secondary to acute exacerbation of asthma. Patient is admitted on PCU. Patient required BiPAP. Discussed with patient's new accounts representative Dr. Watters. On IV Solu-Medrol 40 mg every 8 hourly, DuoNeb's scheduled every 4 hourly, albuterol as needed, incentive spirometry and chest physiotherapy. Continue neb and IV Solu-Medrol treatment. Patient advised to follow Dr. Watters and compliance with BiPAP. Patient discharged on prednisone, Keflex. She has bronchodilator albuterol nebulization at home Patient also has acute E. coli cystitis on IV Rocephin. Lactic acidosis most probably secondary to hypoxia. Patient afebrile no leukocytosis. Other comorbidities including type 2 diabetes mellitus, hypertension, allergic rhinitis, anxiety, depression, bipolar, morbid obesity, celiac disease, obstructive sleep apnea and GERD. As mentioned above. [] Discharge medication reconciliation done. Discharge follow-up instructions completed. Discharge process discussed with the patient and all questions were answered to patient's satisfaction. Total time spent, exact 35 minutes on discharge meds reconciliation, examination, coordination of care with nurses and ancillary staff, review of imaging and blood test and discussion with the patient on follow-up instructions Objective: Seen and examined. Patient shortness of breath, cough and wheezing is much improved. Patient wants to go home. Physical exam General: Alert, Oriented x3, Cooperative, morbid obesity BMI 57.3 kg/m? HEENT: Atraumatic, PERRLA, EOMI, Normocephalic Oral: No Gingival or Mucosal Lesions/ Ulcerations Neck: Supple, No JVD, Negative Carotid Bruits Lungs: Air entry diminished in bilateral lungs. Mild occasional rhonchi. On BiPAP at night. Cardiovascular: Regular rate, Regular Rhythm, Normal S1, Normal S2, No murmurs Abdomen: Bowel Sounds Present, Soft, Non Tender, Non-Distended : No renal angle tenderness. No suprapubic tenderness. Extremities: No edema, Capillary Refill Less than 3 Seconds Skin: No rashes, No breakdown Musculoskeletal: No Tenderness to Palpation of Joints or Extremities Neurological: Cranial nerves II-XII grossly intact, Deep Tendon Reflexes 2+/4 and Symmetrical, Neuro grossly intact Psych/Mental Status: Normal Affect, Appropriate. - Physical Exam Vitals/I&O's: Vital Signs Temp Pulse Resp BP Pulse Ox 97.8 F 67 16 143/64 H 94 06/23/20 13:25 06/23/20 13:25 06/23/20 13:25 06/23/20 13:25 06/23/20 13:25 Oxygen Flow Rate (L/min) [ 2 AMBULATION with Oxygen] Oxygen Flow Rate (L/min) 2 Oxygen Delivery Method Room Air Weight: 318 lb 2.032 oz Body Mass Index (BMI) 57.4 Finger Stick Blood Glucose 154 Intake and Output for Last 24 Hours 06/21/20 06/22/20 06/23/20 23:59 23:59 23:59 Intake Total 1740 / 2040 1310 / 1310 540 / 540 Output Total 400 / 400 Balance 1340 / 1640 1310 / 1310 540 / 540 Microbiology Past 72 Hours 06/20/20 17:25 Blood Culture (Wb) - Left Hand Blood Culture - Preliminary No growth in 48 hours. 06/20/20 16:40 Blood Culture (Wb) - Left Hand Blood Culture - Preliminary No growth in 48 hours. 06/20/20 17:30 Urine, Clean Catch Urine Culture - Final Presumptive E. coli 06/20/20 20:30 Mucosa - Nasopharyngeal Respiratory Panel (PCR) - Final 06/20/20 16:35 Mucosa - Nose SARS-CoV-2 Antigen (Rapid) - Final Laboratory Results 06/22/20 16:07: POC Glucose 286 H 06/22/20 20:44: POC Glucose 404 H 06/23/20 06:39: POC Glucose 143 H 06/23/20 11:29: POC Glucose 235 H Current Medications Non-Formulary Medication (Methylphenidate Hcl [Methylphenidate Er]) 20 mg PO BID [facility] Inpatient E&M: 61081 Disch Hosp
[2020-06-23] MEDS: Insulin Lispro 100 UNIT/ML INSULN.PEN SC (11:30)
[2020-06-23 11:45] LABS: Bedside Glucose 235 mg/dL (70-110)
--- NOTE | 2020-06-24 16:08 | CASEMGMT ---
RN CM Discharge Follow-up Phone Call: RASHEL: 12 Strata: 3 Call Date: 06/24/20 Discharge Date: 06/23/20 Time of Call: 1606 Duration: 3 min Admitting Diagnosis: Asthma exacerbation RN CM attempted to complete follow-up phone call after recent hospitalization. No answer, voice mail box full and unable to leave message. CM will attempt again at later time.
== END 2020-06-23 13:38 | disposition home or self-care (01) | DRG 202 ==
LOC: ED 17:44 → PCU 17:50
PROVIDERS: Admitting Provider Family Medicine; Emergency Provider Emergency Medicine; PCP Internal Medicine; Visit Provider Internal Medicine
DX: J45.901 Unspecified asthma with (acute) exacerbation (principal); J96.21 Acute and chronic respiratory failure with hypoxia; N30.00 Acute cystitis without hematuria; E87.2 Acidosis; Z68.43 Body mass index [BMI] 50.0-59.9, adult; B96.20 Unspecified Escherichia coli [E. coli] as the cause of diseases classified elsewhere; I10 Essential (primary) hypertension; E11.9 Type 2 diabetes mellitus without complications; F31.9 Bipolar disorder, unspecified; F41.9 Anxiety disorder, unspecified; F98.8 Other specified behavioral and emotional disorders with onset usually occurring in childhood and adolescence; E66.01 Morbid (severe) obesity due to excess calories; G47.33 Obstructive sleep apnea (adult) (pediatric); K21.9 Gastro-esophageal reflux disease without esophagitis; G25.81 Restless legs syndrome; K90.0 Celiac disease; E55.9 Vitamin D deficiency, unspecified; M19.90 Unspecified osteoarthritis, unspecified site; Z79.4 Long term (current) use of insulin; Z79.899 Other long term (current) drug therapy; Z87.891 Personal history of nicotine dependence
CPT/HCPCS: 36415; 36600; 71045; 80053; 81001; 82803; 82962; 83605; 83735; 84145; 85025; 85610; 85730; 87040; 87086; 87088; 87186; 87426; 87633; 93005; 94002; 94003; 94640; 94660; 94667; 94668; 97802; 99285; J7030; A4216

== ENCOUNTER 2020-08-12 16:20 | Inpatient (IN) | payer MEDICARE, SELFPAY ==
[2020-06-20 18:34] VITALS: BMI 57.4
[2020-08-12] VITALS (14 sets, daily range): BP systolic 126–190; BP diastolic 50–75; PULSE 83–93; RESP 12–32; TEMP 36.3–36.9; O2SAT 87–98; BMI 53.1; BMI 55.7
--- NOTE | 2020-08-12 16:42 | EKG12_ITS ---
Test Reason : SOB Blood Pressure : / mmHG Vent. Rate : 089 BPM Atrial Rate : 089 BPM P-R Int : 156 ms QRS Dur : 076 ms QT Int : 362 ms P-R-T Axes : 000 -10 083 degrees QTc Int : 440 ms Atrial fibrillation Nonspecific T wave abnormality Abnormal ECG Confirmed by SHARLA RIVERA, EN ([id number]), senior technical editor CAROL VARGAS ([id number]) on 08/14/2020 11:00:07 AM Referred By: HUMBERTO Confirmed By:EN MAGDALENO MD
--- NOTE | 2020-08-12 16:43 | ED.VIS.GEN ---
History of Present Illness Chief Complaint: Shortness of Breath Informant: Patient Narrative: 75-year-old female presenting for the evaluation of shortness of breath. Patient has a history of asthma morbid obesity and sleep apnea. She tells me that a couple days ago she got her first COVID-19 shot. After injection had a mild fever. She then began to have cough and shortness of breath. No further fevers. Cough is nonproductive. She states this feels very much like her asthma. She wears CPAP at night and bleeds then 2-1/2 L. She does not normally have to wear any oxygen during the day. She was unable to make it to her primary care appointment due to the shortness of breath. She sees Dr. Watters for pulmonology. She sees Dr. Jay for primary care. - Past Medical History (1) Anxiety and depression Status: Chronic (2) Asthma Status: Chronic (3) BMI 50.0-59.9, adult Status: Chronic (4) Breast cancer, right breast Status: Chronic (5) Celiac disease Status: Chronic (6) Chronic respiratory failure with hypoxia Status: Chronic (7) Diabetes mellitus Status: Chronic (8) GERD (gastroesophageal reflux disease) Status: Chronic (9) Hypertension Status: Chronic (10) Obstructive sleep apnea Status: Chronic (11) Osteoarthritis Status: Chronic (12) Restless leg syndrome Status: Chronic Past Medical History - Allergies and Home Meds Allergies/Adverse Reactions: Allergies adhesive tape Allergy (Verified 08/12/20 16:23) Unknown listed on pcp allergy list cefadroxil [From Duricef] Allergy (Verified 08/12/20 16:23) Unknown gluten Allergy (Verified 08/12/20 16:23) Other Celiac disease mesalamine [From Asacol] Allergy (Verified 08/12/20 16:23) Unknown listed on pcp allergy list omalizumab [From Xolair] Allergy (Verified 08/12/20 16:23) Unknown listed on pcp allergy list Sulfa (Sulfonamide Antibiotics) Allergy (Verified 08/12/20 16:23) Unknown oxycodone Adverse Reaction (Verified 08/12/20 16:23) Vomiting Primary Care Physician: Senait Jay MD [Primary Care Provider] - Surgical History: noncontributory, hysterectomy, mastectomy - Right, lymph node dissection., - - Rectocele repair. Lives: Spouse/ Significant Other Smoking Status: Former smoker Alcohol: None Drugs: None - Family History Maternal Family History: Reports: Cancer - Mother with a history of breast cancer eventually metastatic. Paternal Family History: Reports: Cancer, Heart Disease - Father with history of fatal [place]. Review of Systems General: Reports: Fever, Malaise. Denies: Chills, Sweats Eyes: Denies: Visual changes - bilaterally, Diplopia ENT: Denies: Rhinorrhea, Sore throat Cardiovascular: Denies: Chest pain, Palpitations Respiratory: Reports: Dyspnea, Cough, Dyspnea on exertion Gastrointestinal: Denies: Abdominal pain, Nausea, Vomiting, Diarrhea, Melena, Hematochezia Genitourinary: Denies: Dysuria, Hematuria, Frequency Musculoskeletal: Denies: Back pain, Extremity Pain Skin: Denies: Rash, Wounds Neurological: Denies: Headache, Weakness, Numbness Physical Exam Vital Signs/Narrative: Vital Signs Temp Pulse Resp BP Pulse Ox 08/12/20 16:29 32 H 97 08/12/20 16:21 97.3 F L 90 22 H 190/51 H 87 Inital Vital Signs reviewed: Yes General: Well nourished, Well developed, Obese, No Acute Distress Head: Normocephalic, Atraumatic Eyes: Perrl, EOMI ENT: Moist mucous membranes, No rhinorrhea Neck: Supple, Nontender Cardiovascular: Regular rate, Regular rhythm, No murmurs Respiratory: No distress, - - Patient has audible rhonchi from across the room. She has audible inspiratory and expiratory wheezing. Abdomen: Soft, Nontender, Nondistended, Normal bowel sounds Back: Nontender, Normal Inspection Extremities: Nontender, No edema Skin: Normal color, No rash Neurological: Alert, Oriented x3, Cranial nerves II-XII grossly intact, Normal Strength, Normal Sensation Psychological: Normal affect, Normal Mood Diagnostic/Tx/Re-eval Clinical Impression(s) from Imaging Studies Chest X-Ray 08/12/20 17:29 IMPRESSION: Possible left lower lobe infiltrate. Postsurgical changes on the right. Electronically Signed: Renny Degroot MD at 17:54 EST , Service support , Laboratory Last Values WBC 8.9 K/mm3 (4.4-11.0) 08/12/20 17:00 RBC 4.89 M/mm3 (4.2-5.4) 08/12/20 17:00 Hgb 13.7 g/dL (12.0-15.0) 08/12/20 17:00 Hct 43.0 % (37-47) 08/12/20 17:00 MCV 87.9 fL (81-99) 08/12/20 17:00 MCH 28.0 pg (27.0-32.0) 08/12/20 17:00 MCHC 31.9 g/dL (32-36) L 08/12/20 17:00 RDW Std Deviation 43.1 fl (35.1-43.9) 08/12/20 17:00 RDW Coeff of Aniceto 13.3 % (11.6-14.6) 08/12/20 17:00 Plt Count 152 K/mm3 (150-450) 08/12/20 17:00 MPV 10.0 fl (6.2-12.0) 08/12/20 17:00 Immature Gran % (Auto) 0.600 % (0.0-0.9) 08/12/20 17:00 Neut % (Auto) 56.5 % (47-70) 08/12/20 17:00 Lymph % (Auto) 23.4 % (19-41) 08/12/20 17:00 [place] % (Auto) 5.9 % (0-10) 08/12/20 17:00 Eos % (Auto) 12.6 % (0-5) H 08/12/20 17:00 Baso % (Auto) 1.0 % (0-1) 08/12/20 17:00 Absolute Neuts (auto) 5.0 X10^3/uL (2.0-7.7) 08/12/20 17:00 Absolute Lymphs (auto) 2.09 X10^3/uL (0.83-4.51) 08/12/20 17:00 Nucleated RBC % 0 % (0-5) 08/12/20 17:00 Sodium 139 mmol/L (136-145) 08/12/20 17:00 Potassium 4.2 mmol/L (3.5-5.1) 08/12/20 17:00 Chloride 102 mmol/L (98-107) 08/12/20 17:00 Carbon Dioxide 31.0 mmol/L (21.0-32.0) 08/12/20 17:00 Anion Gap 6 (5-15) 08/12/20 17:00 BUN 10 mg/dL (7-18) 08/12/20 17:00 Creatinine 0.88 mg/dL (0.55-1.02) 08/12/20 17:00 Estim Creat Clear Calc 46.40 ml/min 08/12/20 17:00 Est GFR (MDRD) Af Amer 81 mL/min (>60) 08/12/20 17:00 Est GFR (MDRD) Non-Af 67 mL/min (>60) 08/12/20 17:00 BUN/Creatinine Ratio 11.4 RATIO (10-20) 08/12/20 17:00 Glucose 336 mg/dL (74-106) H 08/12/20 17:00 Lactic Acid Cancelled 08/12/20 17:00 Calcium 8.8 mg/dL (8.5-10.1) 08/12/20 17:00 Total Bilirubin 0.40 mg/dL (0.20-1.00) 08/12/20 17:00 AST 42 U/L (15-37) H 08/12/20 17:00 ALT 53 U/L (13-56) 08/12/20 17:00 Alkaline Phosphatase 113 U/L (45-117) 08/12/20 17:00 Troponin I < 0.015 ng/mL (<0.045) 08/12/20 17:00 B-Natriuretic Peptide 12.2 pg/mL (0-100) 08/12/20 17:00 Total Protein 7.2 g/dL (6.4-8.2) 08/12/20 17:00 Albumin 3.4 g/dL (3.2-5.0) 08/12/20 17:00 Globulin 3.8 g/dL (2.2-4.2) 08/12/20 17:00 Albumin/Globulin Ratio 0.9 RATIO (0.9-2.4) 08/12/20 17:00 - EKG Initial EKG Interpretation: Sinus Rhythm - EKG demonstrates a normal sinus rhythm at a rate of 89. No concerning features of ACS or ectopy. - Medical Decision Making My interpretation of the 1 view chest x-ray shows possible infiltrate on the left. However she has no elevation of white blood cell count differential that is higher in eosinophils.. She has no fever. Clinically this is more of a asthma exacerbation. She received Solu-Medrol and breathing treatments. She is still requiring supplemental oxygen and still has inspiratory expiratory wheezing but overall feels much better. Covid test is negative. Plan will be admission into the hospital for further care. ED Disposition - Plan for ED Patient: Disposition: Acute Care Hospital [facility] Diagnosis: Acute and chronic respiratory failure with hypoxia, Asthma exacerbation Referrals: Senait Jay MD [Primary Care Provider] -
[2020-08-12] MEDS: MethylPREDNISolone 125 MG/2 ML Vial IV (17:02)
[2020-08-12] MEDS: Ipratropium/Albuterol Sulfate 3 ML AMPUL.NEB INHALATION ×3 (17:07→22:39)
[2020-08-12] MEDS: Albuterol 2.5 MG/3 ML VIAL.NEB. INHALATION ×3 (17:11→18:01)
[2020-08-12 17:20] LABS: Absolute Lymphocyte Count 2.09 X10^3/uL (0.83-4.51); Basophil# 0.09 X10^3/uL; Eosinophil# 1.12 X10^3/uL; Eosinophils% 12.6 % (0-5); Hemoglobin 13.7 g/dL (12.0-15.0); Lymphocyte # 2.09 X10^3/ul (4.0); Lymphocyte % 23.4 % (19-41); Mean Corp Hgb Conc 31.9 g/dL (32-36); Mean Corpuscular Volume 87.9 fL (81-99); Monocyte# 0.53 X10^3/uL; Monocyte% 5.9 % (0-10); NRBC Flagged by Analyzer 0 % (0-5); Neutrophil # 5.04 X10^3/uL (2.7-7.7); Neutrophil % 56.5 % (47-70); Platelet Count 152 K/mm3 (150-450); RBC Distribution Width CV 13.3 % (11.6-14.6); RBC Distribution Width SD 43.1 fl (35.1-43.9); Red Blood Count 4.89 M/mm3 (4.2-5.4); White Blood Count 8.9 K/mm3 (4.4-11.0)
--- NOTE | 2020-08-12 17:29 | RAD_ITS ---
STUDY: X-RAY CHEST REASON FOR EXAM: Female, 75 years old. dyspnea TECHNIQUE: Single frontal view of the chest. COMPARISON: Chest x-ray 06/20/2020 FINDINGS: Surgical clips right axilla And right hilum. Possible left lower lobe infiltrate. There is no demonstrated pleural abnormality. Normal size heart. Normal mediastinum and tanna. Normal visualized pulmonary arteries. Normal visualized aortic arch and descending thoracic aorta. Normal visualized thoracic spine. Normal visualized ribs, clavicles, and shoulders. There is no demonstrated abnormality of the visualized soft tissue structures of the upper abdomen. RAD/Chest 1 View (Portable) IMPRESSION: Possible left lower lobe infiltrate. Postsurgical changes on the right. Electronically Signed: Renny Degroot MD at 17:54 EST , Service support ,
[2020-08-12 17:35] LABS: ALB/GLOB Ratio 0.9 RATIO (0.9-2.4); AST(SGOT) 42 U/L (15-37); Alanine Aminotransfer ALT/SGPT 53 U/L (13-56); Albumin, Serum 3.4 g/dL (3.2-5.0); Alkaline Phosphatase 113 U/L (45-117); Anion Gap 6 (5-15); BUN 10 mg/dL (7-18); BUN/Creat Ratio 11.4 RATIO (10-20); Calcium,Total 8.8 mg/dL (8.5-10.1); Chloride 102 mmol/L (98-107); Creatinine, Serum 0.88 mg/dL (0.55-1.02); EST Glomerular Filtration Rate 67 mL/min (>60); Est Glom Filt Rate - Afr Amer 81 mL/min (>60); Globulin 3.8 g/dL (2.2-4.2); Glucose 336 mg/dL (74-106); Potassium 4.2 mmol/L (3.5-5.1); Protein, Total 7.2 g/dL (6.4-8.2); Sodium Level 139 mmol/L (136-145)
[2020-08-12 18:00] LABS: BNP,B-Type NATRIURETIC PEPTIDE 12.2 pg/mL (0-100)
[2020-08-12 19:46] LABS: Lactic Acid 2.2 mmol/L (0.4-1.9)
--- NOTE | 2020-08-12 19:46 | HP.PCM_ITS ---
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 Patient reports she got her first Covid vaccination a couple days ago, had a low-grade fever x1 day and then has become increasingly short of breath. Patient is on Ventolin, bud esonide, and proair at home which have not been effective at controlling her symptoms. Upon presentation to the ER patient's pulse ox was 87% on room air and was noted to be short of breath and labored. Patient was placed on nasal cannula oxygen at 2 L and received Solu-Medrol 125 mg IV x1, DuoNeb 3 mL nebulized x2, and albuterol sulfate 2.5 mg x 1 in the ER. Patient reports she is no longer short of breath at this time and appears to be in no distress. Past Medical History Past Medical History (Chronic Problems): Chronic Problems Allergic rhinitis (Chronic) Chronic respiratory failure with hypoxia (Chronic) Breast cancer, right breast (Chronic) Vitamin D deficiency (Chronic) Hypertension (Chronic) Diabetes mellitus (Chronic) Body mass index (BMI) 50-59.9, adult (Chronic) Migraine headache (Chronic) Obstructive sleep apnea (Chronic) Osteoarthritis (Chronic) Asthma (Chronic) History of right breast cancer (Chronic) Sleep apnea (Chronic) Diabetes mellitus, type II (Chronic) Anxiety and depression (Chronic) Allergies adhesive tape Allergy (Verified 08/12/20 16:23) Unknown listed on pcp allergy list cefadroxil [From Duricef] Allergy (Verified 08/12/20 16:23) Unknown gluten Allergy (Verified 08/12/20 16:23) Other Celiac disease mesalamine [From Asacol] Allergy (Verified 08/12/20 16:23) Unknown listed on pcp allergy list omalizumab [From Xolair] Allergy (Verified 08/12/20 16:23) Unknown listed on pcp allergy list Sulfa (Sulfonamide Antibiotics) Allergy (Verified 08/12/20 16:23) Unknown oxycodone Adverse Reaction (Verified 08/12/20 16:23) Vomiting Home Medications: Ambulatory Orders Medication Instructions Recorded Cholecalciferol (Vitamin D3) 50,000 unit PO SUWE@0800 06/01/17 [Vitamin D3] Pramipexole Di-HCl [Mirapex] 0.5 mg PO QHS 06/01/17 Albuterol Aerosols [Ventolin 2.5 mg INHALATION Q2H PRN PRN #1 11/26/17 Aerosols] box Albuterol IH (ProAir) [Proair Hfa] 2 puff INHALATION Q6H PRN PRN 03/25/18 Budesonide [Rhinocort Allergy] 2 puff NARES DAILY 06/12/18 Carbamazepine 200 mg PO QHS 03/01/19 Methylphenidate HCl 20 mg PO BID 03/01/19 [Methylphenidate ER] Nadolol [Corgard (Beta Tiffanie)] 40 mg PO DAILY 03/01/19 Paroxetine HCl [Paxil] 40 mg PO DAILY 03/01/19 Loperamide [Imodium] 2 mg PO Q4H PRN PRN cap 10/08/19 Insulin U-500 *Concentrated* 85 units SQ DINNER 03/22/20 [Humulin R U-500 *Concentrated Insulin*] Levocetirizine Dihydrochloride 5 mg PO QHS 03/22/20 [Xyzal] Montelukast [Singulair] 10 mg PO DAILY 03/22/20 Nystatin Powder [Mycostatin Powder] 1 applic TOPICAL BID 03/22/20 Potassium Chloride Oral Tablet 10 meq PO DAILYCM 03/22/20 [K-Dur] Insulin U-500 *Concentrated* 95 units SQ BREAKFAST 08/12/20 [Humulin R U-500 *Concentrated Insulin*] Surgical History: noncontributory, hysterectomy, mastectomy - Right, lymph node dissection., - - Rectocele repair. 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 Maternal History Items: Cancer - Mother with a history of breast cancer eventually metastatic. Review of Systems Constitutional: Denies: Chills, Fever, Weight Change HEENT: Denies: Head Aches, Sinus Congestion, Sinus Drainage Cardiovascular: Denies: Chest Pain, Palpitations Respiratory: Reports: Shortness of breath upon exertion, Wheezing. Denies: Cough, Sputum production Gastrointestinal: Denies: Abdominal Pain, Nausea, Vomiting Genitourinary: Denies: Dysuria Musculoskeletal: Denies: Joint Pain, Joint Tenderness Skin: Denies: Rash, Wounds Neurological: Denies: Numbness, Tingling, Focal weakness Psychiatric: Denies: Anxiety, Depression, Homicidal Ideations, Suicidal Ideations Hematologic/ Lymphatic: Denies: Easy Bruising, Easy Bleeding VTE Information - Inpt Only VTE Present on Admission: No VTE Mechan Device Prophylaxis: None VTE Pharm Prophylaxis ordered?: Yes Patient Problems: Active and Suspected Problems Acute and chronic respiratory failure with hypoxia (Acute) Asthma exacerbation (Acute) Acute respiratory insufficiency (Acute) Acute asthma exacerbation (Acute) - Physical Exam Vitals/I&O's: Vital Signs Temp Pulse Resp BP Pulse Ox 97.4 F L 86 16 129/50 H 97 08/12/20 19:40 08/12/20 19:45 08/12/20 19:45 08/12/20 19:40 08/12/20 19:40 Oxygen Flow Rate (L/min) 2.5 Oxygen Delivery Method Nasal Cannula Weight: 300 lb Body Mass Index (BMI) 53.1 Finger Stick Blood Glucose 154 General: Alert, Oriented x3, Cooperative HEENT: Atraumatic, PERRLA, EOMI, Normocephalic Neck: Supple, No JVD, Negative Carotid Bruits Lungs: Short of Breath, Wheezes Cardiovascular: Regular rate, Regular Rhythm, Normal S1, Normal S2, No murmurs Abdomen: Bowel Sounds Present, Soft, Non Tender, Obese Extremities: No edema, Capillary Refill Less than 3 Seconds Skin: No rashes, No breakdown Musculoskeletal: No Tenderness to Palpation of Joints or Extremities Neurological: Cranial nerves II-XII grossly intact Psych/Mental Status: Normal Affect, Appropriate Microbiology Past 72 Hours 08/12/20 17:42 Mucosa - Nose SARS-CoV-2 Antigen (Rapid) - Final Laboratory Results 08/12/20 17:00: WBC 8.9, RBC 4.89, Hgb 13.7, Hct 43.0, MCV 87.9, MCH 28.0, MCHC 31.9 L, RDW Std Deviation 43.1, RDW Coeff of Aniceto 13.3, Plt Count 152, MPV 10.0, Immature Gran % (Auto) 0.600, Neut % (Auto) 56.5, Lymph % (Auto) 23.4, [facility] % (Auto) 5.9, Eos % (Auto) 12.6 H, Baso % (Auto) 1.0, Absolute Neuts (auto) 5.0, Absolute Lymphs (auto) 2.09, Nucleated RBC % 0 08/12/20 17:00: Sodium 139, Potassium 4.2, Chloride 102, Carbon Dioxide 31.0, Anion Gap 6, BUN 10, Creatinine 0.88, Estim Creat Clear Calc 46.40, Est GFR (MDRD) Af Amer 81, Est GFR (MDRD) Non-Af 67, BUN/Creatinine Ratio 11.4, Glucose 336 H, Calcium 8.8, Total Bilirubin 0.40, AST 42 H, ALT 53, Alkaline Phosphatase 113, Troponin I < 0.015, Total Protein 7.2, Albumin 3.4, Globulin 3.8, Albumin/Globulin Ratio 0.9 08/12/20 17:00: Lactic Acid Cancelled 08/12/20 17:00: B-Natriuretic Peptide 12.2 08/12/20 18:10: Lactic Acid 2.2 H* Current Medications Sodium Chloride (0.9% Saline Lock 10 Ml Syringe) 10 - 40 ml IV UD PRN PRN Reason: SALINE FLUSH Assessment/Plan All Active Problems Acute and chronic respiratory failure with hypoxia (Acute) Asthma exacerbation (Acute) Acute respiratory insufficiency (Acute) Asthmatic bronchitis (Acute) Suspected 2019-nCoV infection (Ruled-out) Lactic acidosis (Acute) Complicated UTI (urinary tract infection) (Acute) Acute delirium (Acute) USAMA (acute kidney injury) (Acute) Hypokalemia (Acute) Sepsis (Acute) Acute metabolic encephalopathy (Acute) UTI (urinary tract infection) (Acute) Acute severe exacerbation of asthma (Resolved) Staphylococcal pneumonia (Ruled-out) Streptococcal pneumonia (Ruled-out) Acute and chronic respiratory failure with hypoxia (Ruled-out) Cellulitis of right breast (Ruled-out) Influenza (Ruled-out) Acute asthma exacerbation (Acute) 1. Acute asthma exacerbation -Will continue albuterol and DuoNeb nebulizer treatments. -Solu-Medrol 40 mg IV every 6 hours ordered -Encourage incentive spirometry -We will hold off on antibiotics at this time due to patient presents with no white count no tachycardia and no fever at this time. 2. Acute respiratory insufficiency related to #1 -Nasal cannula O2 per protocol to maintain SPO2 greater than 90% -BiPAP at bedtime, home settings. 3. Diabetes mellitus type 2 -Continue home dose Humulin R at breakfast and dinner. -Sliding scale insulin ACHS ordered. -1800-calorie carb controlled diet ordered 4. Obstructive sleep apnea -BiPAP at bedtime, home settings 5. Morbid obesity -Consult nutrition for diabetic education. 6. Hypertension -Continue nadolol. 7.Anxiety and depression -Continue Paxil and carbamazepine. 8. Allergic rhinitis ?Continue Singulair and Xyzal. DVT prophylaxis?subcu Lovenox This patient was seen by Vivian Olson, [facility]-C under the supervision of Dr. Gold. <Lorezno Gold - Last Filed: 08/12/20 20:47> History of Present Illness The patient is a 75 year old F with history of asthma, follows Dr. Watters last admission June 20?2020 for acute on chronic hypoxic respiratory failure due to asthma exacerbation came to ED with similar complaint of shortness of breath, wheezing for last 3 days. She denies any fever chills recently but had fever low-grade after 1 day of Covid vaccine on past Wednesday. She has remote history of smoking, quit 25 years ago. She uses oxygen at night at home. In ED, triage vitals shows afebrile, blood pressure in normal range on 2.5 L of oxygen. [] Past Medical History Allergies adhesive tape Allergy (Verified 08/12/20 16:23) Unknown listed on pcp allergy list cefadroxil [From Duricef] Allergy (Verified 08/12/20 16:23) Unknown gluten Allergy (Verified 08/12/20 16:23) Other Celiac disease mesalamine [From Asacol] Allergy (Verified 08/12/20 16:23) Unknown listed on pcp allergy list omalizumab [From Xolair] Allergy (Verified 08/12/20 16:23) Unknown listed on pcp allergy list Sulfa (Sulfonamide Antibiotics) Allergy (Verified 08/12/20 16:23) Unknown oxycodone Adverse Reaction (Verified 08/12/20 16:23) Vomiting Objective: General: Alert, Oriented x3, Cooperative, labored breathing, morbid obesity BMI 55.8 kg/m? HEENT: Atraumatic, PERRLA, EOMI, Normocephalic Oral: No Gingival or Mucosal Lesions/ Ulcerations Neck: Supple, No JVD, Negative Carotid Bruits Lungs: Air entry diminished in bilateral lung bases. Bilateral wheezing Cardiovascular: Regular rate, Regular Rhythm, Normal S1, Normal S2, No murmurs Abdomen: Bowel Sounds Present, Soft, Non Tender, Non-Distended : No renal angle tenderness. No suprapubic tenderness. Extremities: No edema, Capillary Refill Less than 3 Seconds Skin: No rashes, No breakdown Musculoskeletal: No Tenderness to Palpation of Joints or Extremities Neurological: Cranial nerves II-XII grossly intact, Deep Tendon Reflexes 2+/4 and Symmetrical, Neuro grossly intact Psych/Mental Status: Normal Affect, Appropriate. - Physical Exam Vitals/I&O's: Vital Signs Temp Pulse Resp BP Pulse Ox 98.5 F 84 20 H 149/63 H 97 08/12/20 20:17 08/12/20 20:17 08/12/20 20:17 08/12/20 20:17 08/12/20 20:17 Oxygen Flow Rate (L/min) 2.5 Oxygen Delivery Method Nasal Cannula Weight: 314 lb 13.121 oz Body Mass Index (BMI) 55.7 Finger Stick Blood Glucose 154 Microbiology Past 72 Hours 08/12/20 17:42 Mucosa - Nose SARS-CoV-2 Antigen (Rapid) - Final Laboratory Results 08/12/20 17:00: WBC 8.9, RBC 4.89, Hgb 13.7, Hct 43.0, MCV 87.9, MCH 28.0, MCHC 31.9 L, RDW Std Deviation 43.1, RDW Coeff of Aniceto 13.3, Plt Count 152, MPV 10.0, Immature Gran % (Auto) 0.600, Neut % (Auto) 56.5, Lymph % (Auto) 23.4, [facility] % (Auto) 5.9, Eos % (Auto) 12.6 H, Baso % (Auto) 1.0, Absolute Neuts (auto) 5.0, Absolute Lymphs (auto) 2.09, Nucleated RBC % 0 08/12/20 17:00: Sodium 139, Potassium 4.2, Chloride 102, Carbon Dioxide 31.0, Anion Gap 6, BUN 10, Creatinine 0.88, Estim Creat Clear Calc 46.40, Est GFR (MDRD) Af Amer 81, Est GFR (MDRD) Non-Af 67, BUN/Creatinine Ratio 11.4, Glucose 336 H, Calcium 8.8, Total Bilirubin 0.40, AST 42 H, ALT 53, Alkaline Phosphatase 113, Troponin I < 0.015, Total Protein 7.2, Albumin 3.4, Globulin 3.8, Albumin/Globulin Ratio 0.9 08/12/20 17:00: Lactic Acid Cancelled 08/12/20 17:00: B-Natriuretic Peptide 12.2 08/12/20 18:10: Lactic Acid 2.2 H* Current Medications Acetaminophen (Acetaminophen 325 Mg Tablet) 650 mg PO Q6H PRN PRN PRN Reason: Pain Score 1-10/Temp > 100.7 F Albuterol Sulfate (Albuterol 2.5 Mg/3 Ml Vial.Neb.) 2.5 mg INHALATION Q2H PRN PRN PRN Reason: SHORTNESS OF BREATH Albuterol/Ipratropium (Ipratropium/Albuterol Sulfate 3 Ml Ampul.Neb) 3 ml INHALATION Q4HWA.RT STACY Carbamazepine (Carbamazepine 200 Mg Tablet) 200 mg PO QHS STACY Enoxaparin Sodium (Enoxaparin 40 Mg/0.4 Ml Syringe) 40 mg SC BID STACY Ergocalciferol (Ergocalciferol 50,000 Unit Capsule) 50,000 unit PO SUWE@0800 STACY Insulin Human Lispro (Insulin Lispro 100 Unit/Ml Insuln.Pen) 0 unit SC ACHS STACY; Protocol Insulin Human Regular (Insulin U-500 Units/Ml Pen) 85 units SC DINNER STACY Insulin Human Regular (Insulin U-500 Units/Ml Pen) 95 units SC BREAKFAST STACY Loratadine (Loratadine 10 Mg Tablet) 5 mg PO QHS STACY Methylprednisolone (Methylprednisolone 40 Mg/Ml Vial) 40 mg IV Q6 STACY Montelukast Sodium (Montelukast 10 Mg Tablet) 10 mg PO DAILY STACY Nadolol (Nadolol 40 Mg Tablet) 40 mg PO DAILY STACY Non-Formulary Medication (Methylphenidate Hcl [Methylphenidate Er]) 20 mg PO BID STACY Ondansetron HCl (Ondansetron 4 Mg/2 Ml Vial) 4 mg IV Q8H PRN PRN PRN Reason: NAUSEA/VOMITING Paroxetine HCl (Paroxetine 20 Mg Tablet) 40 mg PO DAILY STACY Potassium Chloride (Potassium Chloride Oral Tablet 10 Meq) 10 meq PO DAILYCM STACY Pramipexole Dihydrochloride (Pramipexole Di-Hcl 0.5 Mg Tablet) 0.5 mg PO QHS [facility] Assessment/Plan This patient was seen in conjunction with CARSON [place]. I have independently interviewed and examined the patient and reviewed pertinent history, examination findings, laboratory and plan of management. I have reviewed the note and agree with the documented findings with the few additional points. In brief, patient is admitted for acute respiratory insufficiency on chronic hypoxic respiratory failure secondary to asthma exacerbation. Patient is admitted on [facility] floor. Started on scheduled and as needed bronchodilator, high-dose Solu-Medrol, incentive spirometry, chest physiotherapy. Patient follows Dr. Watters. Mild lactic acidosis although clinically no signs and symptoms of sepsis or infection. Lactic acidosis most probably secondary to hypoxia. No fever or chills, tachycardia, leukocytosis. Patient has eosinophilia secondary to asthma. Patient also has uncontrolled diabetes mellitus and she is on high dose of insulin U5 100: Home dose continued. Probably to go high on Solu-Medrol and adjust the insulin accordingly. Other comorbidities as mentioned above including obstructive sleep apnea, on BiPAP obesity, anxiety and depression and hypertension. I have discussed my assessment with CARSON Park and orders have been reviewed. Inpatient E&M: [id number] Init Hosp L3
[2020-08-12 21:01] LABS: Prothrombin Time (Protime)PT. 13.1 SECONDS (11.7-14.9)
[2020-08-12] MEDS: Lactated Ringers 1,000 ML 999 ML IV (21:08)
[2020-08-12 21:11] LABS: Bedside Glucose 281 mg/dL (70-110)
[2020-08-12] MEDS: 0.9% Saline Lock 10 ML Syringe IV (21:15)
[2020-08-12] MEDS: Insulin U-500 UNITS/ML PEN 85 UNITS SC (21:15)
[2020-08-12] MEDS: Loratadine 10 MG Tablet 5 MG PO (21:20)
[2020-08-12] MEDS: Enoxaparin 40 MG/0.4 ML Syringe SC (21:20)
[2020-08-12] MEDS: carBAMazepine 200 MG Tablet PO (21:20)
[2020-08-12] MEDS: Pramipexole Di-HCl 0.5 MG Tablet PO (21:20)
[2020-08-12 22:18] LABS: Reflex Lactate? Y
[2020-08-12] MEDS: Insulin Lispro 100 UNIT/ML INSULN.PEN SC (22:41)
[2020-08-12] MEDS: Acetaminophen 325 MG Tablet 650 MG PO (23:26)
[2020-08-12 23:46] LABS: Bedside Glucose 419 mg/dL (70-110)
[2020-08-13] VITALS (14 sets, daily range): BP systolic 132–158; BP diastolic 48–76; PULSE 68–105; RESP 12–24; TEMP 36.3–37.2; O2SAT 94–100
[2020-08-13 00:06] LABS: Lactic Acid 3.2 mmol/L (0.4-1.9)
[2020-08-13] MEDS: Lactated Ringers 1,000 ML 999 ML IV (01:05)
[2020-08-13 01:42] LABS: Bacteria 0 SEEN /hpf (None Seen); Mucous, Urine 0 SEEN /hpf (<or=2+); Red Blood Cells-Urine 0 SEEN /hpf (0-5); White Blood Cells 0 SEEN /hpf (0-5)
[2020-08-13 01:45] LABS: Color, Urine Yellow (Yellow); Glucose, Dipstick 1000 mg/dl (Normal); Ketone-Dipstick 5 mg/dl (Negative); Leukocyte Esterase-Dipstick Negative /ul (Negative); Nitrite-Dipstick Negative (Negative); Occult Blood-Urine Negative /ul (Negative); Protein-Dipstick Negative (Negative); Urine Bilirubin Dipstick Negative (Negative); Urine Clarity Clear (Clear); Urine Urobilinogen Normal (Normal)
[2020-08-13 02:36] LABS: Squamous Epithelial Cells - UA 0-5 SEEN /hpf (5-10)
[2020-08-13] MEDS: levoFLOXacin IV 750 MG/150 ML BAG 100 MG IV ×2 (02:39→21:18)
[2020-08-13 03:15] LABS: Bedside Glucose 275 mg/dL (70-110)
[2020-08-13 06:16] LABS: Absolute Neutrophil Count 8.4 X10^3/uL (2.0-7.7); Basophil# 0.03 X10^3/uL; Basophil% 0.3 % (0-1); Eosinophil# 0.01 X10^3/uL; Eosinophils% 0.1 % (0-5); Hematocrit 41.8 % (37-47); Hemoglobin 12.6 g/dL (12.0-15.0); Mean Corp Hgb Conc 30.1 g/dL (32-36); Mean Corpuscular Hgb 28.7 pg (27.0-32.0); Mean Corpuscular Volume 95.2 fL (81-99); Mean Platelet Vol. 10.2 fl (6.2-12.0); Monocyte# 0.39 X10^3/uL; Monocyte% 3.9 % (0-10); NRBC Flagged by Analyzer 0 % (0-5); Neutrophil # 8.42 X10^3/uL (2.7-7.7); Neutrophil % 84.1 % (47-70); Platelet Count 132 K/mm3 (150-450); RBC Distribution Width CV 13.2 % (11.6-14.6); RBC Distribution Width SD 46.5 fl (35.1-43.9); Red Blood Count 4.39 M/mm3 (4.2-5.4)
[2020-08-13] MEDS: Insulin Lispro 100 UNIT/ML INSULN.PEN SC ×4 (06:21→21:02)
[2020-08-13 06:35] LABS: Bedside Glucose 245 mg/dL (70-110)
[2020-08-13 06:38] LABS: Anion Gap 6 (5-15); BUN 11 mg/dL (7-18); BUN/Creat Ratio 13.5 RATIO (10-20); Calcium,Total 8.7 mg/dL (8.5-10.1); Chloride 105 mmol/L (98-107); Creatinine, Serum 0.82 mg/dL (0.55-1.02); EST Glomerular Filtration Rate 73 mL/min (>60); Est Glom Filt Rate - Afr Amer 88 mL/min (>60); Estimated Creatinine Clearance 49.79 ml/min; Glucose 244 mg/dL (74-106); Potassium 4.3 mmol/L (3.5-5.1); Sodium Level 135 mmol/L (136-145)
[2020-08-13 06:44] LABS: Lactic Acid 2.4 mmol/L (0.4-1.9)
--- NOTE | 2020-08-13 07:28 | RAD_ITS ---
STUDY: X-RAY CHEST REASON FOR EXAM: Female, 75 years old. LLL questionable infiltrate TECHNIQUE: PA and lateral views of the chest. COMPARISON: Yesterday FINDINGS: Surgical clips project over the right chest, apparent mastectomy. Amorphous infiltrates of the left lower lobe is confirmed on frontal and lateral views. There is no demonstrated pleural abnormality. Normal size heart. Normal mediastinum and tanna. Normal visualized pulmonary arteries. There is atherosclerotic calcification of the aortic arch with tortuosity. There are diffuse degenerative changes of the visualized thoracic spine. Normal visualized ribs, clavicles, and shoulders. There is no demonstrated abnormality of the visualized soft tissue structures of the upper abdomen. RAD/Chest PA and Lateral IMPRESSION: Left lower lobe infiltrate suggesting atelectasis or pneumonia. Electronically Signed: Owen Crowder MD ([place]) at 7:42 EST , Service support ,
[2020-08-13] MEDS: Ipratropium/Albuterol Sulfate 3 ML AMPUL.NEB INHALATION ×4 (07:45→19:33)
[2020-08-13] MEDS: Insulin U-500 UNITS/ML PEN 95 UNITS SC (08:33)
[2020-08-13] MEDS: Potassium Chloride Oral Tablet 10 MEQ PO (08:34)
--- NOTE | 2020-08-13 10:00 | CASEMGMT ---
Palliative screening tool completed for [facility]. Patient does not qualify for Palliative per screening tool.
[2020-08-13 10:12] LABS: Reflex Lactate? Y
--- NOTE | 2020-08-13 10:40 | CASEMGMT ---
JASWINDER PLASCENCIA Face to Face with patient for initial transition planning/care coordination assessment. RN CM introduced self and role at [facility]. Patient sitting at edge of bed, alert and oriented. Patient willing to participate in assessment and is able to answer all questions appropriately. Care providers, pharmacy, and demographics verified. Patient wishes to discharge home, denies need for home health at this time. Patient states he has no further needs or concerns at this time. CM to follow for discharge planning needs that may arise. PCP: Misty Specialists: Janene personnel monitor, has appt for ; Elsie, ENT; Preferred Pharmacy: [facility] Insurance: [employer] [facility] Prescription Benefit: yes Living Will/HPOA: yes, [place], daughter LNOK: , daughter Living Arrangements: Patient lives with in a 2 story home, patient is able to ambulate stairs slowly. Patient states she is independent at home. Transportation: self/ DME/HHC: Patient states she has shower chair, raised toilet, grab bars, walker, BiPap, nebulizer, oxygen at at 2.5 lpm with portable tank through [facility]. Patient has had [facility]HC in the past. Disposition Plan: Patient to discharge home with family support and follow-up plans in place. Will monitor need for increased oxygen and HHC. Amparo MEJIA, RN, CM
[2020-08-13 11:27] LABS: Lactic Acid 3.3 mmol/L (0.4-1.9)
--- NOTE | 2020-08-13 11:43 | PCM.PN.HOSP ---
<Marlo Roy - Last Filed: 08/13/20 11:43> Patient Problems: Active and Suspected Problems Acute and chronic respiratory failure with hypoxia (Acute) Asthma exacerbation (Acute) Acute respiratory insufficiency (Acute) Acute asthma exacerbation (Acute) Reason for Visit: Acute on chronic hypoxic respiratory failure secondary to asthma exacerbation. Subjective: 75-year-old morbidly obese female laying in bed, alert and oriented x3. Patient reports that her symptoms have not improved from admission; still feels short of breath and that her work of breathing is labored. Patient denies lower calf pain, or pain on palpation. Objective: Clinical Impression(s) from Imaging Studies Chest X-Ray 08/12/20 17:29 IMPRESSION: Possible left lower lobe infiltrate. Postsurgical changes on the right. Electronically Signed: Renny Degroot MD at 17:54 EST , Service support , [facility] 08/12/20 17:42 Mucosa - Nose SARS-CoV-2 Antigen (Rapid) - Final Vitals/I&O's: Vital Signs Temp Pulse Resp BP Pulse Ox 99.0 F 92 22 H 158/76 H 94 08/13/20 08:29 08/13/20 10:24 08/13/20 10:24 08/13/20 08:29 08/13/20 08:29 Oxygen Flow Rate (L/min) 1 Oxygen Delivery Method Nasal Cannula Weight: 314 lb 13.121 oz Body Mass Index (BMI) 55.7 Finger Stick Blood Glucose 154 Intake and Output for Last 24 Hours 08/11/20 08/12/20 08/13/20 23:59 23:59 23:59 Intake Total 1000 / 1000 1270 / 1270 Output Total 200 / 200 300 / 300 Balance 800 / 800 970 / 970 General: Alert, Oriented x3, Cooperative HEENT: Atraumatic, PERRLA, EOMI, Normocephalic Neck: Supple, No JVD, Negative Carotid Bruits Lungs: Diminished, Short of Breath, Tachypneic, Wheezes Cardiovascular: Tachycardic Abdomen: Bowel Sounds Present, Soft, Non Tender, Obese Extremities: No edema, Capillary Refill Less than 3 Seconds, - Skin: No rashes, No breakdown Musculoskeletal: No Tenderness to Palpation of Joints or Extremities Neurological: Cranial nerves II-XII grossly intact Psych/Mental Status: Normal Affect, Appropriate Microbiology Past 72 Hours 08/12/20 17:42 Mucosa - Nose SARS-CoV-2 Antigen (Rapid) - Final Laboratory Results 08/12/20 17:00: WBC 8.9, RBC 4.89, Hgb 13.7, Hct 43.0, MCV 87.9, MCH 28.0, MCHC 31.9 L, RDW Std Deviation 43.1, RDW Coeff of Aniceto 13.3, Plt Count 152, MPV 10.0, Immature Gran % (Auto) 0.600, Neut % (Auto) 56.5, Lymph % (Auto) 23.4, [place] % (Auto) 5.9, Eos % (Auto) 12.6 H, Baso % (Auto) 1.0, Absolute Neuts (auto) 5.0, Absolute Lymphs (auto) 2.09, Nucleated RBC % 0 08/12/20 17:00: Sodium 139, Potassium 4.2, Chloride 102, Carbon Dioxide 31.0, Anion Gap 6, BUN 10, Creatinine 0.88, Estim Creat Clear Calc 46.40, Est GFR (MDRD) Af Amer 81, Est GFR (MDRD) Non-Af 67, BUN/Creatinine Ratio 11.4, Glucose 336 H, Calcium 8.8, Total Bilirubin 0.40, AST 42 H, ALT 53, Alkaline Phosphatase 113, Troponin I < 0.015, Total Protein 7.2, Albumin 3.4, Globulin 3.8, Albumin/Globulin Ratio 0.9 08/12/20 17:00: Lactic Acid Cancelled 08/12/20 17:00: B-Natriuretic Peptide 12.2 08/12/20 17:00: PT 13.1, INR 1.0 08/12/20 18:10: Lactic Acid 2.2 H* 08/12/20 20:59: POC Glucose 281 H 08/12/20 22:30: POC Glucose 419 H 08/12/20 23:07: Lactic Acid 3.2 H* 08/13/20 01:20: Urine Color Yellow, Urine Clarity Clear, Urine pH 5.0, Ur Specific [place] 1.020, Urine Protein Negative, Urine Glucose (UA) 1000 H, Urine Ketones 5 H, Urine Occult Blood Negative, Urine Nitrite Negative, Urine Bilirubin Negative, Urine Urobilinogen Normal, Ur Leukocyte Esterase Negative, Urine RBC 0 SEEN, Urine WBC 0 SEEN, Ur Squamous Epith Cells 0-5 SEEN, Urine Bacteria 0 SEEN, Urine Mucus 0 SEEN 08/13/20 03:12: POC Glucose 275 H 08/13/20 06:04: WBC 10.0, RBC 4.39, Hgb 12.6, Hct 41.8, MCV 95.2 D, MCH 28.7, MCHC 30.1 L D, RDW Std Deviation 46.5 H, RDW Coeff of Aniceto 13.2, Plt Count 132 L, MPV 10.2, Immature Gran % (Auto) 0.600, Neut % (Auto) 84.1 H, Lymph % (Auto) 11.0 L, [place] % (Auto) 3.9, Eos % (Auto) 0.1, Baso % (Auto) 0.3, Absolute Neuts (auto) 8.4 H, Absolute Lymphs (auto) 1.10, Nucleated RBC % 0 08/13/20 06:04: Sodium 135 L, Potassium 4.3, Chloride 105, Carbon Dioxide 24.0, Anion Gap 6, BUN 11, Creatinine 0.82, Estim Creat Clear Calc 49.79, Est GFR (MDRD) Af Amer 88, Est GFR (MDRD) Non-Af 73, BUN/Creatinine Ratio 13.5, Glucose 244 H, Calcium 8.7 08/13/20 06:04: Lactic Acid 2.4 H* 08/13/20 06:20: POC Glucose 245 H 08/13/20 10:26: Lactic Acid 3.3 H* Current Medications Acetaminophen (Acetaminophen 325 Mg Tablet) 650 mg PO Q6H PRN PRN PRN Reason: Pain Score 1-10/Temp > 100.7 F Last Admin: 08/12/20 23:26 Dose: 650 mg Documented by: Albuterol Sulfate (Albuterol 2.5 Mg/3 Ml Vial.Neb.) 2.5 mg INHALATION Q2H PRN PRN PRN Reason: SHORTNESS OF BREATH Albuterol/Ipratropium (Ipratropium/Albuterol Sulfate 3 Ml Ampul.Neb) 3 ml INHALATION Q4HWA.RT STACY Last Admin: 08/13/20 10:19 Dose: 3 ml Documented by: Carbamazepine (Carbamazepine 200 Mg Tablet) 200 mg PO QHS [facility] Last Admin: 08/12/20 21:20 Dose: 200 mg Documented by: Enoxaparin Sodium (Enoxaparin 40 Mg/0.4 Ml Syringe) 40 mg SC BID [facility] Last Admin: 08/12/20 21:20 Dose: 40 mg Documented by: Ergocalciferol (Ergocalciferol 50,000 Unit Capsule) 50,000 unit PO SUWE@0800 [facility] Levofloxacin (Levaquin Iv) 750 mg in 150 mls @ 100 mls/hr IV Q48@2200 [facility] Last Infusion: 08/13/20 06:12 Dose: Infused Documented by: Sodium Chloride () 250 mls @ 15 mls/hr IV .[id number] PRN PRN Reason: Saline Flush Sodium Chloride () 250 mls @ 15 mls/hr IV .[id number] PRN PRN Reason: Additional IVPB Infusion Insulin Human Lispro (Insulin Lispro 100 Unit/Ml Insuln.Pen) 0 unit SC [facility]; Protocol Last Admin: 08/13/20 06:21 Dose: 6 units Documented by: Insulin Human Regular (Insulin U-500 Units/Ml Pen) 85 units SC DINNER [facility] Last Admin: 08/12/20 21:15 Dose: 85 units Documented by: Insulin Human Regular (Insulin U-500 Units/Ml Pen) 95 units SC BREAKFAST [facility] Last Admin: 08/13/20 08:33 Dose: 95 u Documented by: Loratadine (Loratadine 10 Mg Tablet) 5 mg PO QHS [facility] Last Admin: 08/12/20 21:20 Dose: 5 mg Documented by: Methylphenidate HCl (Methylphenidate Hcl 20 Mg Tablet.Er) 20 mg PO BID [facility] Methylprednisolone (Methylprednisolone 40 Mg/Ml Vial) 40 mg IV Q6 [facility] Last Admin: 08/13/20 06:12 Dose: 40 mg Documented by: Montelukast Sodium (Montelukast 10 Mg Tablet) 10 mg PO DAILY [facility] Nadolol (Nadolol 40 Mg Tablet) 40 mg PO DAILY [facility] Ondansetron HCl (Ondansetron 4 Mg/2 Ml Vial) 4 mg IV Q8H PRN PRN PRN Reason: NAUSEA/VOMITING Paroxetine HCl (Paroxetine 20 Mg Tablet) 40 mg PO DAILY [facility] Potassium Chloride (Potassium Chloride Oral Tablet 10 Meq) 10 meq PO DAILYCM [facility] Last Admin: 08/13/20 08:34 Dose: 10 meq Documented by: Pramipexole Dihydrochloride (Pramipexole Di-Hcl 0.5 Mg Tablet) 0.5 mg PO QHS [facility] Last Admin: 08/12/20 21:20 Dose: 0.5 mg Documented by: STROKE Vital Signs/Narrative: Vital Signs Temp Pulse Resp BP Pulse Ox 08/13/20 10:24 92 22 H 08/13/20 08:37 19 H 08/13/20 08:29 99.0 F 103 H 18 158/76 H 94 08/13/20 07:45 100 22 H 100 Medical Necessity - Tobacco Use Smoking Status: Former smoker Assessment/Plan All Active Problems Acute and chronic respiratory failure with hypoxia (Acute) Asthma exacerbation (Acute) Acute respiratory insufficiency (Acute) Asthmatic bronchitis (Acute) Suspected 2018-nCoV infection (Ruled-out) Lactic acidosis (Acute) Complicated UTI (urinary tract infection) (Acute) Acute delirium (Acute) USAMA (acute kidney injury) (Acute) Hypokalemia (Acute) Sepsis (Acute) Acute metabolic encephalopathy (Acute) UTI (urinary tract infection) (Acute) Acute severe exacerbation of asthma (Resolved) Staphylococcal pneumonia (Ruled-out) Streptococcal pneumonia (Ruled-out) Acute and chronic respiratory failure with hypoxia (Ruled-out) Cellulitis of right breast (Ruled-out) Influenza (Ruled-out) Acute asthma exacerbation (Acute) Patient was admitted on 08/12/2020 for acute on chronic hypoxic respiratory failure secondary to asthma exacerbation. Patient does not feel like her symptoms have improved from admission. My physical evaluation confirmed patient's description. Patient's lactic acid continues to elevate in cycles with the current high at 3.3. Other blood work and chemistries stable. UA unremarkable. We will continue to monitor for improvement in symptoms. Considering further administration of fluid and/or increasing her prednisone. Considering patient's lack of improvement, D-dimer ordered to rule out DVT/PE. 1) Acute on chronic hypoxic respiratory failure secondary to asthma exacerbation Assesment - Patient tachypneic and tachycardic - O2 sat 94% at 1 L/min - Lactic acid remains elevated - Pleural infiltrates on frontal and lateral views Plan - Solu-Medrol 40 mg IV every 6 hours - Nasal cannula O2 per protocol - BiPAP at bedtime, set to home setting - D-dimer ordered to rule out DVT/PE 2) Diabetes Mellitus type 2 Assessment - Glucose in urine - POC glucose 245 mg/dL at 0900 today - POC glucose down from 420 mg/dL yesterday Plan -Continue home dose Humulin R at breakfast and dinner. -Sliding scale insulin ACHS ordered. -1800-calorie carb controlled diet ordered 3) DORY -BiPAP at bedtime set to home setting 4) Allergic rhinitis - continue Singulair 5) Hypertension - Continue nadolol. 6) Anxiety and depression - Continue Paxil and carbamazepine. 7) Morbid obesity - Nutrition consult ordered DVT prophylaxis?Lovenox SC Patient seen by Marlo Roy PA-C, under the supervision of Dr. Gonzalez <Danielle Gonzalez - Last Filed: 08/13/20 15:06> Vitals/I&O's: Vital Signs Temp Pulse Resp BP Pulse Ox 99.0 F 68 22 H 158/76 H 94 08/13/20 08:29 08/13/20 14:53 08/13/20 14:53 08/13/20 08:29 08/13/20 08:29 Oxygen Flow Rate (L/min) 1 Oxygen Delivery Method Nasal Cannula Weight: 314 lb 13.121 oz Body Mass Index (BMI) 55.7 Finger Stick Blood Glucose 154 Intake and Output for Last 24 Hours 08/11/20 08/12/20 08/13/20 23:59 23:59 23:59 Intake Total 1000 / 1000 1270 / 1270 Output Total 200 / 200 300 / 300 Balance 800 / 800 970 / 970 Microbiology Past 72 Hours 08/12/20 17:42 Mucosa - Nose SARS-CoV-2 Antigen (Rapid) - Final Laboratory Results 08/12/20 17:00: WBC 8.9, RBC 4.89, Hgb 13.7, Hct 43.0, MCV 87.9, MCH 28.0, MCHC 31.9 L, RDW Std Deviation 43.1, RDW Coeff of Aniceto 13.3, Plt Count 152, MPV 10.0, Immature Gran % (Auto) 0.600, Neut % (Auto) 56.5, Lymph % (Auto) 23.4, [place] % (Auto) 5.9, Eos % (Auto) 12.6 H, Baso % (Auto) 1.0, Absolute Neuts (auto) 5.0, Absolute Lymphs (auto) 2.09, Nucleated RBC % 0 08/12/20 17:00: Sodium 139, Potassium 4.2, Chloride 102, Carbon Dioxide 31.0, Anion Gap 6, BUN 10, Creatinine 0.88, Estim Creat Clear Calc 46.40, Est GFR (MDRD) Af Amer 81, Est GFR (MDRD) Non-Af 67, BUN/Creatinine Ratio 11.4, Glucose 336 H, Calcium 8.8, Total Bilirubin 0.40, AST 42 H, ALT 53, Alkaline Phosphatase 113, Troponin I < 0.015, Total Protein 7.2, Albumin 3.4, Globulin 3.8, Albumin/Globulin Ratio 0.9 08/12/20 17:00: Lactic Acid Cancelled 08/12/20 17:00: B-Natriuretic Peptide 12.2 08/12/20 17:00: PT 13.1, INR 1.0 08/12/20 18:10: Lactic Acid 2.2 H* 08/12/20 20:59: POC Glucose 281 H 08/12/20 22:30: POC Glucose 419 H 08/12/20 23:07: Lactic Acid 3.2 H* 08/13/20 01:20: Urine Color Yellow, Urine Clarity Clear, Urine pH 5.0, Ur Specific [place] 1.020, Urine Protein Negative, Urine Glucose (UA) 1000 H, Urine Ketones 5 H, Urine Occult Blood Negative, Urine Nitrite Negative, Urine Bilirubin Negative, Urine Urobilinogen Normal, Ur Leukocyte Esterase Negative, Urine RBC 0 SEEN, Urine WBC 0 SEEN, Ur Squamous Epith Cells 0-5 SEEN, Urine Bacteria 0 SEEN, Urine Mucus 0 SEEN 08/13/20 03:12: POC Glucose 275 H 08/13/20 06:04: WBC 10.0, RBC 4.39, Hgb 12.6, Hct 41.8, MCV 95.2 D, MCH 28.7, MCHC 30.1 L D, RDW Std Deviation 46.5 H, RDW Coeff of Aniceto 13.2, Plt Count 132 L, MPV 10.2, Immature Gran % (Auto) 0.600, Neut % (Auto) 84.1 H, Lymph % (Auto) 11.0 L, [place] % (Auto) 3.9, Eos % (Auto) 0.1, Baso % (Auto) 0.3, Absolute Neuts (auto) 8.4 H, Absolute Lymphs (auto) 1.10, Nucleated RBC % 0 08/13/20 06:04: Sodium 135 L, Potassium 4.3, Chloride 105, Carbon Dioxide 24.0, Anion Gap 6, BUN 11, Creatinine 0.82, Estim Creat Clear Calc 49.79, Est GFR (MDRD) Af Amer 88, Est GFR (MDRD) Non-Af 73, BUN/Creatinine Ratio 13.5, Glucose 244 H, Calcium 8.7 08/13/20 06:04: Lactic Acid 2.4 H* 08/13/20 06:20: POC Glucose 245 H 08/13/20 10:26: Lactic Acid 3.3 H* 08/13/20 12:02: POC Glucose 347 H 08/13/20 12:30: D-Dimer Quant (PE/DVT) 0.41 Current Medications Acetaminophen (Acetaminophen 325 Mg Tablet) 650 mg PO Q6H PRN PRN PRN Reason: Pain Score 1-10/Temp > 100.7 F Last Admin: 08/12/20 23:26 Dose: 650 mg Documented by: Albuterol Sulfate (Albuterol 2.5 Mg/3 Ml Vial.Neb.) 2.5 mg INHALATION Q2H PRN PRN PRN Reason: SHORTNESS OF BREATH Albuterol/Ipratropium (Ipratropium/Albuterol Sulfate 3 Ml Ampul.Neb) 3 ml INHALATION Q4HWA.RT [facility] Last Admin: 08/13/20 14:53 Dose: 3 ml Documented by: Carbamazepine (Carbamazepine 200 Mg Tablet) 200 mg PO QHS [facility] Last Admin: 08/12/20 21:20 Dose: 200 mg Documented by: Enoxaparin Sodium (Enoxaparin 40 Mg/0.4 Ml Syringe) 40 mg SC BID [facility] Last Admin: 08/13/20 12:04 Dose: 40 mg Documented by: Ergocalciferol (Ergocalciferol 50,000 Unit Capsule) 50,000 unit PO SUWE@0800 [facility] Levofloxacin (Levaquin Iv) 750 mg in 150 mls @ 100 mls/hr IV Q48@2200 [facility] Last Infusion: 08/13/20 06:12 Dose: Infused Documented by: Sodium Chloride () 250 mls @ 15 mls/hr IV .[id number] PRN PRN Reason: Saline Flush Sodium Chloride () 250 mls @ 15 mls/hr IV .[id number] PRN PRN Reason: Additional IVPB Infusion Sodium Chloride () 1,000 mls @ 100 mls/hr IV .Q10H [facility] Last Admin: 08/13/20 13:00 Dose: 100 mls/hr Documented by: Insulin Human Lispro (Insulin Lispro 100 Unit/Ml Insuln.Pen) 0 unit SC ACHS [facility]; Protocol Last Admin: 08/13/20 12:05 Dose: 12 units Documented by: Insulin Human Regular (Insulin U-500 Units/Ml Pen) 85 units SC DINNER [facility] Last Admin: 08/12/20 21:15 Dose: 85 units Documented by: Insulin Human Regular (Insulin U-500 Units/Ml Pen) 95 units SC BREAKFAST [facility] Last Admin: 08/13/20 08:33 Dose: 95 u Documented by: Loratadine (Loratadine 10 Mg Tablet) 5 mg PO QHS [facility] Last Admin: 08/12/20 21:20 Dose: 5 mg Documented by: Methylphenidate HCl (Methylphenidate Hcl 20 Mg Tablet.Er) 20 mg PO BID [facility] Methylprednisolone (Methylprednisolone 40 Mg/Ml Vial) 40 mg IV Q6 [facility] Last Admin: 08/13/20 12:05 Dose: 40 mg Documented by: Montelukast Sodium (Montelukast 10 Mg Tablet) 10 mg PO DAILY [facility] Last Admin: 08/13/20 12:04 Dose: 10 mg Documented by: Nadolol (Nadolol 40 Mg Tablet) 40 mg PO DAILY [facility] Last Admin: 08/13/20 12:04 Dose: 40 mg Documented by: Ondansetron HCl (Ondansetron 4 Mg/2 Ml Vial) 4 mg IV Q8H PRN PRN PRN Reason: NAUSEA/VOMITING Paroxetine HCl (Paroxetine 20 Mg Tablet) 40 mg PO DAILY [facility] Last Admin: 08/13/20 12:04 Dose: 40 mg Documented by: Potassium Chloride (Potassium Chloride Oral Tablet 10 [facility]) [facility] Last Admin: 08/13/20 08:34 Dose: 10 meq Documented by: Pramipexole Dihydrochloride (Pramipexole Di-Hcl 0.5 Mg Tablet) 0.5 mg PO QHS [facility] Last Admin: 08/12/20 21:20 Dose: 0.5 mg Documented by: STROKE Vital Signs/Narrative: Vital Signs Pulse Resp 08/13/20 14:53 68 22 H Assessment/Plan Patient seen by Marlo Roy PA-C under my supervision Patient seen and examined. She was admitted with a complaint of shortness of breath as well as wheezing and is being managed for acute exacerbation of asthma. On admission, she was found to be saturating at 87%. She is on 2 L of oxygen and is on Solu-Medrol and breathing treatments with bronchodilators. Of note, covid test was negative. She still complains of shortness of breath and wheezing this morning. Is on 1 L of oxygen. She says she does wear oxygen as needed at home during the day and at night. She was remained hemodynamically stable. However lactic acid is 3.3. She has been hydrated with IV fluids. O/E: Vital Signs Temp Pulse Resp BP Pulse Ox 99.0 F 68 22 H 158/76 H 94 08/13/20 08:29 08/13/20 14:53 08/13/20 14:53 08/13/20 08:29 08/13/20 08:29 General: Alert, Oriented x3, Cooperative, super morbid obesity HEENT: Atraumatic, PERRLA, EOMI, Normocephalic Neck: Supple, No JVD, Negative Carotid Bruits Lungs: mildly tachypneic, bilateral wheezing in all lung holcomb. No crackles. On 1L of oxygen Cardiovascular: Regular rate, Regular Rhythm, Normal S1, Normal S2, No murmurs Abdomen: Bowel Sounds Present, Soft, Non Tender, Obese Extremities: No edema, Capillary Refill Less than 3 Seconds Skin: No rashes, No breakdown Musculoskeletal: No Tenderness to Palpation of Joints or Extremities Neurological: Cranial nerves II-XII grossly intact Psych/Mental Status: Normal Affect, Appropriate Continue IV solumedrol and breathing treatment with bronchodilators for acute asthma exacerbation. Titrate oxygen to maintain sats >90%. D dimer done today was only 0.41. Lactic acid still remains elevated; continue gentle hydration with IVF. Rest as per Marlo Roy PA-C's note, which I have reviewed and endorsed. Inpatient E&M: 09859 Subs Hosp L2
[2020-08-13] MEDS: Nadolol 40 MG Tablet PO (12:04)
[2020-08-13] MEDS: Montelukast 10 MG Tablet PO (12:04)
[2020-08-13] MEDS: Enoxaparin 40 MG/0.4 ML Syringe SC ×2 (12:04→21:01)
[2020-08-13] MEDS: Paroxetine 20 MG Tablet 40 MG PO (12:04)
[2020-08-13] MEDS: 0.9% Saline Lock 10 ML Syringe IV (12:05)
[2020-08-13 12:26] LABS: Bedside Glucose 347 mg/dL (70-110)
[2020-08-13 12:54] LABS: D-Dimer Quantitative (DVT/PE) 0.41 FEU/ug/m (0.27-0.49)
[2020-08-13] MEDS: 0.9% Normal Saline 1,000 ML 100 ML IV ×2 (13:00→23:53)
[2020-08-13 16:56] LABS: Bedside Glucose 260 mg/dL (70-110)
[2020-08-13] MEDS: Insulin U-500 UNITS/ML PEN 85 UNITS SC (17:46)
[2020-08-13] MEDS: carBAMazepine 200 MG Tablet PO (21:01)
[2020-08-13] MEDS: Loratadine 10 MG Tablet 5 MG PO (21:01)
[2020-08-13] MEDS: Pramipexole Di-HCl 0.5 MG Tablet PO (21:01)
[2020-08-13 21:11] LABS: Bedside Glucose 317 mg/dL (70-110)
[2020-08-14] VITALS (16 sets, daily range): BP systolic 122–165; BP diastolic 46–94; PULSE 68–89; RESP 12–25; TEMP 36.5–37; O2SAT 91–97
[2020-08-14] MEDS: Ipratropium/Albuterol Sulfate 3 ML AMPUL.NEB INHALATION ×2 (07:24→11:21)
[2020-08-14 07:41] LABS: Bedside Glucose 222 mg/dL (70-110)
[2020-08-14] MEDS: Potassium Chloride Oral Tablet 10 MEQ PO (07:59)
[2020-08-14] MEDS: Insulin Lispro 100 UNIT/ML INSULN.PEN SC ×4 (08:01→21:58)
[2020-08-14] MEDS: Insulin U-500 UNITS/ML PEN 95 UNITS SC (08:04)
[2020-08-14] MEDS: 0.9% Normal Saline 1,000 ML 100 ML IV ×2 (09:21→18:28)
[2020-08-14] MEDS: Nadolol 40 MG Tablet PO (09:52)
[2020-08-14] MEDS: Paroxetine 20 MG Tablet 40 MG PO (09:53)
[2020-08-14] MEDS: Montelukast 10 MG Tablet PO (09:53)
[2020-08-14] MEDS: Nystatin Powder 15gm Bottle 1 APPLIC TOPICAL ×2 (09:54→21:57)
[2020-08-14] MEDS: Enoxaparin 40 MG/0.4 ML Syringe SC ×3 (09:55→22:12)
[2020-08-14 11:56] LABS: Bedside Glucose 312 mg/dL (70-110)
--- NOTE | 2020-08-14 13:08 | PN_ITS ---
<Marlo Roy - Last Filed: 08/14/20 13:08> Patient Problems: Active and Suspected Problems Acute and chronic respiratory failure with hypoxia (Acute) Asthma exacerbation (Acute) Acute respiratory insufficiency (Acute) Acute asthma exacerbation (Acute) Subjective: She is an obese 75-year-old female, alert and oriented x3. Patient reports marked improvement in her symptoms from yesterday, namely her shortness of breath and work of breathing. Patient still reports productive cough. Objective: Microbiology 08/14/20 09:05 Mucosa - Nasopharyngeal Respiratory Panel (PCR) - Final 08/13/20 01:20 Interface Orders Urine Culture - Final Mixed Gram Pos & Gram Neg Org 08/12/20 17:42 Mucosa - Nose SARS-CoV-2 Antigen (Rapid) - Final Clinical Impression(s) from Imaging Studies Chest X-Ray 08/12/20 17:29 IMPRESSION: Possible left lower lobe infiltrate. Postsurgical changes on the right. Electronically Signed: Renny Degroot MD at 17:54 EST , Service support , Chest X-Ray 08/13/20 07:28 IMPRESSION: Left lower lobe infiltrate suggesting atelectasis or pneumonia. Electronically Signed: Owen Crowder MD (Brooks) at 7:42 EST , Service support , Vitals/I&O's: Vital Signs Temp Pulse Resp BP Pulse Ox 97.7 F L 82 18 133/58 H 93 08/14/20 09:04 08/14/20 11:37 08/14/20 11:37 08/14/20 09:04 08/14/20 09:04 Oxygen Flow Rate (L/min) 2 Oxygen Delivery Method Nasal Cannula Weight: 314 lb 13.121 oz Body Mass Index (BMI) 55.7 Finger Stick Blood Glucose 154 Intake and Output for Last 24 Hours 08/12/20 08/13/20 08/14/20 23:59 23:59 23:59 Intake Total 1000 / 1000 2605 / 2605 946.67 / 946.67 Output Total 200 / 200 1000 / 1000 500 / 500 Balance 800 / 800 1605 / 1605 446.67 / 446.67 General: Alert, Oriented x3, Cooperative HEENT: Atraumatic, PERRLA, EOMI, Normocephalic Neck: Supple, No JVD, Negative Carotid Bruits Lungs: Diminished, Rhonchi, Wheezes, - - Marked improvement from yesterday; shortness of breath and work of breathing. Cardiovascular: Regular rate, No murmurs Abdomen: Bowel Sounds Present, Soft, Non Tender Extremities: No edema, Capillary Refill Less than 3 Seconds Skin: - - Diffuse seborrheic keratosis across chest, back, neck and abdomen Musculoskeletal: No Tenderness to Palpation of Joints or Extremities Neurological: Cranial nerves II-XII grossly intact Psych/Mental Status: Normal Affect, Appropriate Microbiology Past 72 Hours 08/14/20 09:05 Mucosa - Nasopharyngeal Respiratory Panel (PCR) - Final 08/13/20 01:20 Interface Orders Urine Culture - Final Mixed Gram Pos & Gram Neg Org 08/12/20 17:42 Mucosa - Nose SARS-CoV-2 Antigen (Rapid) - Final Laboratory Results 08/13/20 16:45: POC Glucose 260 H 08/13/20 20:59: POC Glucose 317 H 08/14/20 07:33: POC Glucose 222 H 08/14/20 11:31: POC Glucose 312 H Current Medications Acetaminophen (Acetaminophen 325 Mg Tablet) 650 mg PO Q6H PRN PRN PRN Reason: Pain Score 1-10/Temp > 100.7 F Last Admin: 08/12/20 23:26 Dose: 650 mg Documented by: Albuterol Sulfate (Albuterol 2.5 Mg/3 Ml Vial.Neb.) 2.5 mg INHALATION Q2H PRN PRN PRN Reason: SHORTNESS OF BREATH Albuterol/Ipratropium (Ipratropium/Albuterol Sulfate 3 Ml Ampul.Neb) 3 ml INHALATION Q4HWA.RT [facility] Last Admin: 08/14/20 11:21 Dose: 3 ml Documented by: Carbamazepine (Carbamazepine 200 Mg Tablet) 200 mg PO QHS [facility] Last Admin: 08/13/20 21:01 Dose: 200 mg Documented by: Enoxaparin Sodium (Enoxaparin 40 Mg/0.4 Ml Syringe) 40 mg SC BID [facility] Last Admin: 08/14/20 09:55 Dose: 40 mg Documented by: Ergocalciferol (Ergocalciferol 50,000 Unit Capsule) 50,000 unit PO SUWE@0800 [facility] Last Admin: 08/14/20 07:59 Dose: 50,000 unit Documented by: Sodium Chloride () 250 mls @ 15 mls/hr IV .[id number] PRN PRN Reason: Saline Flush Sodium Chloride () 250 mls @ 15 mls/hr IV .[id number] PRN PRN Reason: Additional IVPB Infusion Sodium Chloride () 1,000 mls @ 100 mls/hr IV .Q10H [facility] Last Admin: 08/14/20 09:21 Dose: 100 mls/hr Documented by: Levofloxacin (Levaquin Iv) 750 mg in 150 mls @ 100 mls/hr IV Q24@2200 [facility] Insulin Human Lispro (Insulin Lispro 100 Unit/Ml Insuln.Pen) 0 unit SC ACHS [facility]; Protocol Last Admin: 08/14/20 11:40 Dose: 9 units Documented by: Insulin Human Regular (Insulin U-500 Units/Ml Pen) 85 units SC DINNER [facility] Last Admin: 08/13/20 17:46 Dose: 85 units Documented by: Insulin Human Regular (Insulin U-500 Units/Ml Pen) 95 units SC BREAKFAST [facility] Last Admin: 08/14/20 08:04 Dose: 95 u Documented by: Loratadine (Loratadine 10 Mg Tablet) 5 mg PO QHS [facility] Last Admin: 08/13/20 21:01 Dose: 5 mg Documented by: Methylphenidate HCl (Methylphenidate Hcl 20 Mg Tablet.Er) 20 mg PO BID [facility] Last Admin: 08/14/20 09:56 Dose: Not Given Documented by: Methylprednisolone (Methylprednisolone 40 Mg/Ml Vial) 40 mg IV Q6 [facility] Last Admin: 08/14/20 05:14 Dose: 40 mg Documented by: Montelukast Sodium (Montelukast 10 Mg Tablet) 10 mg PO DAILY [facility] Last Admin: 08/14/20 09:53 Dose: 10 mg Documented by: Nadolol (Nadolol 40 Mg Tablet) 40 mg PO DAILY [facility] Last Admin: 08/14/20 09:52 Dose: 40 mg Documented by: Nystatin (Nystatin Powder 15gm Bottle) 1 applic TOPICAL BID [facility]; Protocol Last Admin: 08/14/20 09:54 Dose: 1 applicatio Documented by: Ondansetron HCl (Ondansetron 4 Mg/2 Ml Vial) 4 mg IV Q8H PRN PRN PRN Reason: NAUSEA/VOMITING Paroxetine HCl (Paroxetine 20 Mg Tablet) 40 mg PO DAILY [facility] Last Admin: 08/14/20 09:53 Dose: 40 mg Documented by: Potassium Chloride (Potassium Chloride Oral Tablet 10 Meq) [facility] Last Admin: 08/14/20 07:59 Dose: 10 meq Documented by: Pramipexole Dihydrochloride (Pramipexole Di-Hcl 0.5 Mg Tablet) 0.5 mg PO QHS [facility] Last Admin: 08/13/20 21:01 Dose: 0.5 mg Documented by: STROKE Vital Signs/Narrative: Vital Signs Pulse Resp 08/14/20 11:37 82 18 Medical Necessity - Tobacco Use Smoking Status: Former smoker Assessment/Plan All Active Problems Acute and chronic respiratory failure with hypoxia (Acute) Asthma exacerbation (Acute) Acute respiratory insufficiency (Acute) Asthmatic bronchitis (Acute) Suspected 2019-nCoV infection (Ruled-out) Lactic acidosis (Acute) Complicated UTI (urinary tract infection) (Acute) Acute delirium (Acute) USAMA (acute kidney injury) (Acute) Hypokalemia (Acute) Sepsis (Acute) Acute metabolic encephalopathy (Acute) UTI (urinary tract infection) (Acute) Acute severe exacerbation of asthma (Resolved) Staphylococcal pneumonia (Ruled-out) Streptococcal pneumonia (Ruled-out) Acute and chronic respiratory failure with hypoxia (Ruled-out) Cellulitis of right breast (Ruled-out) Influenza (Ruled-out) Acute asthma exacerbation (Acute) Patient was admitted on 08/12/2020 for acute on chronic hypoxic respiratory failure secondary to asthma exacerbation. Marked improvement of symptoms on physical examination. Patient's lactic acid continues to elevate in cycles with the current high at 3.3. Other blood work and chemistries stable. UA unremarkable. D-dimer on 08/13/2020 not elevated. Recommend continued admission overnight, respiratory panel ordered. 1) Acute on chronic hypoxic respiratory failure secondary to asthma exacerbation Assesment - Normal respiratory effort, nonlabored on 2 L nasal cannula - O2 sat 93% at 2 L/min - Lactic acid remains elevated - Pleural infiltrates on frontal and lateral views - D-dimer 0.41 Plan - Continue to monitor overnight - Respiratory panel ordered - Solu-Medrol 40 mg IV every 6 hours - Nasal cannula O2 per protocol - BiPAP at bedtime, set to home setting 2) Diabetes Mellitus type 2 Assessment - Glucose in urine - POC glucose 222 mg/dL at 0800 today Plan -Continue home dose Humulin R at breakfast and dinner. -Sliding scale insulin ACHS ordered. -1800-calorie carb controlled diet ordered 3) DORY -BiPAP at bedtime set to home setting 4) Allergic rhinitis - continue Singulair 5) Hypertension - Continue nadolol. 6) Anxiety and depression - Continue Paxil and carbamazepine. 7) Morbid obesity - Nutrition consult ordered DVT prophylaxis?Lovenox SC Patient seen by Marlo Roy PA-C, under the supervision of Dr. Gonzalez <Danielle Gonzalez - Last Filed: 08/14/20 15:09> Vitals/I&O's: Vital Signs Temp Pulse Resp BP Pulse Ox 97.7 F L 71 18 161/77 H 96 08/14/20 09:04 08/14/20 13:57 08/14/20 11:37 08/14/20 13:57 08/14/20 13:57 Oxygen Flow Rate (L/min) 2 Oxygen Delivery Method Bi-pap Weight: 314 lb 13.121 oz Body Mass Index (BMI) 55.7 Finger Stick Blood Glucose 154 Intake and Output for Last 24 Hours 08/12/20 08/13/20 08/14/20 23:59 23:59 23:59 Intake Total 1000 / 1000 2605 / 2605 946.67 / 946.67 Output Total 200 / 200 1000 / 1000 500 / 500 Balance 800 / 800 1605 / 1605 446.67 / 446.67 Microbiology Past 72 Hours 08/14/20 09:05 Mucosa - Nasopharyngeal Respiratory Panel (PCR) - Final 08/13/20 01:20 Interface Orders Urine Culture - Final Mixed Gram Pos & Gram Neg Org 08/12/20 17:42 Mucosa - Nose SARS-CoV-2 Antigen (Rapid) - Final Laboratory Results 08/13/20 16:45: POC Glucose 260 H 08/13/20 20:59: POC Glucose 317 H 08/14/20 07:33: POC Glucose 222 H 08/14/20 11:31: POC Glucose 312 H 08/14/20 14:25: Troponin I < 0.015 Current Medications Acetaminophen (Acetaminophen 325 Mg Tablet) 650 mg PO Q6H PRN PRN PRN Reason: Pain Score 1-10/Temp > 100.7 F Last Admin: 08/12/20 23:26 Dose: 650 mg Documented by: Albuterol Sulfate (Albuterol 2.5 Mg/3 Ml Vial.Neb.) 2.5 mg INHALATION Q2H PRN PRN PRN Reason: SHORTNESS OF BREATH Albuterol/Ipratropium (Ipratropium/Albuterol Sulfate 3 Ml Ampul.Neb) 3 ml INHALATION Q4HWA.RT [facility] Last Admin: 08/14/20 11:21 Dose: 3 ml Documented by: Carbamazepine (Carbamazepine 200 Mg Tablet) 200 mg PO QHS [facility] Last Admin: 08/13/20 21:01 Dose: 200 mg Documented by: Enoxaparin Sodium (Enoxaparin 40 Mg/0.4 Ml Syringe) 40 mg SC BID [facility] Last Admin: 08/14/20 09:55 Dose: 40 mg Documented by: Ergocalciferol (Ergocalciferol 50,000 Unit Capsule) 50,000 unit PO SUWE@0800 [facility] Last Admin: 08/14/20 07:59 Dose: 50,000 unit Documented by: Sodium Chloride () 250 mls @ 15 mls/hr IV .[id number] PRN PRN Reason: Saline Flush Sodium Chloride () 250 mls @ 15 mls/hr IV .[id number] PRN PRN Reason: Additional IVPB Infusion Sodium Chloride () 1,000 mls @ 100 mls/hr IV .Q10H [facility] Last Admin: 08/14/20 09:21 Dose: 100 mls/hr Documented by: Levofloxacin (Levaquin Iv) 750 mg in 150 mls @ 100 mls/hr IV Q24@2200 [facility] Insulin Human Lispro (Insulin Lispro 100 Unit/Ml Insuln.Pen) 0 unit SC ACHS [facility]; Protocol Last Admin: 08/14/20 11:40 Dose: 9 units Documented by: Insulin Human Regular (Insulin U-500 Units/Ml Pen) 85 units SC DINNER [facility] Last Admin: 08/13/20 17:46 Dose: 85 units Documented by: Insulin Human Regular (Insulin U-500 Units/Ml Pen) 95 units SC BREAKFAST [facility] Last Admin: 08/14/20 08:04 Dose: 95 u Documented by: Loratadine (Loratadine 10 Mg Tablet) 5 mg PO QHS [facility] Last Admin: 08/13/20 21:01 Dose: 5 mg Documented by: Methylphenidate HCl (Methylphenidate Hcl 20 Mg Tablet.Er) 20 mg PO BID [facility] Last Admin: 08/14/20 09:56 Dose: Not Given Documented by: Methylprednisolone (Methylprednisolone 40 Mg/Ml Vial) 40 mg IV Q6 [facility] Last Admin: 08/14/20 14:16 Dose: 40 mg Documented by: Montelukast Sodium (Montelukast 10 Mg Tablet) 10 mg PO DAILY [facility] Last Admin: 08/14/20 09:53 Dose: 10 mg Documented by: Nadolol (Nadolol 40 Mg Tablet) 40 mg PO DAILY [facility] Last Admin: 08/14/20 09:52 Dose: 40 mg Documented by: Nystatin (Nystatin Powder 15gm Bottle) 1 applic TOPICAL BID [facility]; Protocol Last Admin: 08/14/20 09:54 Dose: 1 applicatio Documented by: Ondansetron HCl (Ondansetron 4 Mg/2 Ml Vial) 4 mg IV Q8H PRN PRN PRN Reason: NAUSEA/VOMITING Paroxetine HCl (Paroxetine 20 Mg Tablet) 40 mg PO DAILY [facility] Last Admin: 08/14/20 09:53 Dose: 40 mg Documented by: Potassium Chloride (Potassium Chloride Oral Tablet 10 Meq) [facility] Last Admin: 08/14/20 07:59 Dose: 10 meq Documented by: Pramipexole Dihydrochloride (Pramipexole Di-Hcl 0.5 Mg Tablet) 0.5 mg PO QHS [facility] Last Admin: 08/13/20 21:01 Dose: 0.5 mg Documented by: STROKE Vital Signs/Narrative: Vital Signs Pulse Resp BP Pulse Ox 08/14/20 13:57 71 161/77 H 96 08/14/20 11:37 82 18 Assessment/Plan Patient seen by Marlo Roy PA-C under my supervision Patient seen and examined. She said her shortness of breath was getting better and wheezing was also improving. Review of systems otherwise negative. The day, patient developed chest pain and EKG done showed A. fib. She does not have a history of A. fib as far she knows. Had been on albuterol inhaler as well as Atrovent still from review of chart, she had not really been receiving the albuterol. Review systems otherwise negative. O/E: Vital Signs Temp Pulse Resp BP Pulse Ox 97.7 F L 71 18 161/77 H 96 08/14/20 09:04 08/14/20 13:57 08/14/20 11:37 08/14/20 13:57 08/14/20 13:57 General: Alert, Oriented x3, Cooperative, super morbid obesity HEENT: Atraumatic, PERRLA, EOMI, Normocephalic Neck: Supple, No JVD, Negative Carotid Bruits Lungs: mildly tachypneic, bilateral wheezing in all lung holcomb. No crackles. On 1L of oxygen Cardiovascular: Normal S1, Normal S2, No murmurs, rate irregularly irregular Abdomen: Bowel Sounds Present, Soft, Non Tender, Obese Extremities: No edema, Capillary Refill Less than 3 Seconds Skin: No rashes, No breakdown Musculoskeletal: No Tenderness to Palpation of Joints or Extremities Neurological: Cranial nerves II-XII grossly intact Psych/Mental Status: Normal Affect, Appropriate Plan is to transfer to PCU due to afib. Check BMP and magnesium. Stop albuterol and duonebs; start on atrovent inhalers for now. Respiratory panel is also negative. Order 2D echo. Continue Levaquin. [id number] score is 4, soshe needs therapeutic anticoagulation. WIll start on therapeutic lovenox. Rest as per Marlo Masters's note, which I have reviewed and endorsed. Inpatient E&M: 67522 Subs Hosp L2
--- NOTE | 2020-08-14 14:01 | EKG12_ITS ---
Test Reason : CP Blood Pressure : / mmHG Vent. Rate : 073 BPM Atrial Rate : 078 BPM P-R Int : 000 ms QRS Dur : 076 ms QT Int : 380 ms P-R-T Axes : 000 023 105 degrees QTc Int : 418 ms Sinus rhythm Nonspecific T wave abnormality , probably digitalis effect Abnormal ECG Confirmed by JEFERSON RIVERA, GENIA ([id number]), editorial assistant CAROL VARGAS ([id number]) on 08/19/2020 11:49:16 A M Referred By: RICHA Confirmed By:BEAR GOVEA MD
--- NOTE | 2020-08-14 14:02 | NURSING ---
to transfer pt to [facility] 103 d/t CP and ekg showing AFib
--- NOTE | 2020-08-14 14:54 | ECHOCS_ITS ---
Reason For Study: AFIB/FLUTTER Procedure This was a 2D Doppler, Color Flow transthoracic echocardiogram. The study was technically difficult. Due to obesity. Contrast injection was performed. Left Ventricle Based upon the 2D echocardiographic and contrast enhanced images obtained there appears to be grossly normal left ventricular size, wall motion, and systolic function. The estimated ejection fraction is 65 %. There is evidence of diastolic dysfunction. Right Ventricle Based upon the 2D echocardiographic and contrast enhanced images obtained there appears to be grossly normal right ventricular size and systolic function. Atria The left atrium is not well visualized. The right atrium is not well visualized. Mitral Valve Mitral valve not well visualized. Tricuspid Valve The tricuspid valve is not well visualized. Aortic Valve The aortic valve is not well visualized. Pulmonic Valve The pulmonic valve is not well visualized. Great Vessels The aortic root is not well visualized. Pericardium/Pleural No pericardial effusion. Medication Diluted definity 5.0ml given slow IV push to enhance endocardial definition. Time Measurements MV dec time: 0.19 sec Doppler Measurements & Calculations MV E max benja: 97.9 cm/sec Lat Peak E' Benja: 7.2 cm/sec Med Peak E' Benja: 5.7 cm/sec MV A max benja: 73.6 cm/sec E/E' lat: 13.5 E/E' med: 17.0 MV E/A: 1.3 Ao V2 max: 160.2 cm/sec LV V1 max: 108.8 cm/sec Ao max P.3 mmHg LV V1 max P.7 mmHg Interpretation Summary The study was technically difficult. Contrast injection was performed. Based upon the 2D echocardiographic and contrast enhanced images obtained there appears to be grossly normal left ventricular size, wall motion, and systolic function. The estimated ejection fraction is 65 %. There is evidence of diastolic dysfunction. Ordering Physician: Danielle Gonzalez Referring Physician: Senait Jay Performed By: Taty Noonan RDCS, RVT
--- NOTE | 2020-08-14 15:14 | EKG12_ITS ---
Test Reason : RYTHUM CHANGE Blood Pressure : / mmHG Vent. Rate : 076 BPM Atrial Rate : 076 BPM P-R Int : 144 ms QRS Dur : 078 ms QT Int : 352 ms P-R-T Axes : 058 021 137 degrees QTc Int : 396 ms Normal sinus rhythm with sinus arrhythmia Nonspecific T wave abnormality Abnormal ECG When compared with ECG of 14-AUG-2020 13:50, MANUAL COMPARISON REQUIRED, DATA IS UNCONFIRMED Confirmed by JACLYN RIVERA, KATIE ([id number]), editorial clerk CAROL VARGAS ([id number]) on 08/21/2020 10:30:51 AM Referred By: RICHA Confirmed By:KATIE ANAYA MD
[2020-08-14] MEDS: Ipratropium 0.5 MG/2.5 ML SOLUTION INHALATION ×3 (15:40→23:03)
[2020-08-14 16:38] LABS: Anion Gap 7 (5-15); BUN 20 mg/dL (7-18); BUN/Creat Ratio 20.7 RATIO (10-20); Calcium,Total 9.4 mg/dL (8.5-10.1); Chloride 103 mmol/L (98-107); Creatinine, Serum 0.96 mg/dL (0.55-1.02); EST Glomerular Filtration Rate 60 mL/min (>60); Est Glom Filt Rate - Afr Amer 73 mL/min (>60); Estimated Creatinine Clearance 42.53 ml/min; Glucose 304 mg/dL (74-106); Magnesium 2.1 mg/dL (1.6-2.6); Potassium 4.3 mmol/L (3.5-5.1); Sodium Level 139 mmol/L (136-145)
[2020-08-14 16:45] LABS: Bedside Glucose 200 mg/dL (70-110)
[2020-08-14] MEDS: Insulin U-500 UNITS/ML PEN 85 UNITS SC (18:27)
[2020-08-14] MEDS: Loratadine 10 MG Tablet 5 MG PO (21:57)
[2020-08-14] MEDS: levoFLOXacin IV 750 MG/150 ML BAG 100 MG IV (21:57)
[2020-08-14] MEDS: carBAMazepine 200 MG Tablet PO (22:10)
[2020-08-14] MEDS: Pramipexole Di-HCl 0.5 MG Tablet PO (22:11)
[2020-08-14] MEDS: Loratadine 10 MG Tablet (22:13)
[2020-08-14 22:20] LABS: Bedside Glucose 259 mg/dL (70-110)
[2020-08-14] MEDS: guaiFENesin 10 ML UDC (200MG/10ML) PO (22:52)
[2020-08-15] VITALS (17 sets, daily range): BP systolic 134–164; BP diastolic 48–67; PULSE 60–85; RESP 12–21; TEMP 35.9–36.6; O2SAT 90–98
[2020-08-15] MEDS: guaiFENesin 10 ML UDC (200MG/10ML) PO (05:34)
[2020-08-15] MEDS: 0.9% Normal Saline 1,000 ML 100 ML IV (06:36)
[2020-08-15 06:41] LABS: Bedside Glucose 173 mg/dL (70-110)
[2020-08-15] MEDS: Ipratropium 0.5 MG/2.5 ML SOLUTION INHALATION ×4 (07:43→19:17)
[2020-08-15] MEDS: Insulin Lispro 100 UNIT/ML INSULN.PEN SC ×4 (08:31→21:23)
[2020-08-15] MEDS: Nystatin Powder 15gm Bottle 1 APPLIC TOPICAL ×2 (08:32→21:23)
[2020-08-15] MEDS: Insulin U-500 UNITS/ML PEN 95 UNITS SC (08:32)
[2020-08-15] MEDS: Enoxaparin 40 MG/0.4 ML Syringe SC ×2 (08:32→21:22)
[2020-08-15] MEDS: Nadolol 40 MG Tablet PO (08:32)
[2020-08-15] MEDS: Potassium Chloride Oral Tablet 10 MEQ PO (08:32)
[2020-08-15] MEDS: Paroxetine 20 MG Tablet 40 MG PO (08:33)
[2020-08-15] MEDS: Montelukast 10 MG Tablet PO (08:33)
--- NOTE | 2020-08-15 10:22 | NURSING ---
Pt takes methylphenidate at home and [facility] does not carry medication. Pt states that she doesn't want her to bring it in and she doesn't need to take it while she is here. Notified Jenna Cabrera NP, and orders received to d/c order at this time.
[2020-08-15] MEDS: Benzonatate 100 MG Capsule PO (11:35)
[2020-08-15 11:40] LABS: Bedside Glucose 276 mg/dL (70-110)
--- NOTE | 2020-08-15 12:42 | PCM.PROGNOTE ---
<Jenna Cabrera FISH SMOKER - Last Filed: 08/15/20 12:51> Patient Problems: Active and Suspected Problems Acute and chronic respiratory failure with hypoxia (Acute) Asthma exacerbation (Acute) Acute respiratory insufficiency (Acute) Acute asthma exacerbation (Acute) Subjective: Patient seen and examined. Reports shortness of breath with minimal movement and ongoing harsh cough. Denies fever, chills. Ambulatory pulse ox pending. Discussed with patient possible discharge and she states she does not feel like she is ready to go home. Discussed with patient if she continues to require minimal oxygen and remained stable, will likely discharge tomorrow. Patient states she is only prescribed oxygen to wear at bedtime with her BiPAP however she wears it as needed when she gets anxious. - Physical Exam Vitals/I&O's: Vital Signs Temp Pulse Resp BP Pulse Ox 97.8 F 78 20 H 134/53 H 95 08/15/20 09:00 08/15/20 10:54 08/15/20 10:54 08/15/20 09:00 08/15/20 09:00 Oxygen Flow Rate (L/min) 2 Oxygen Delivery Method Nasal Cannula Weight: 314 lb 13.121 oz Body Mass Index (BMI) 55.7 Finger Stick Blood Glucose 154 Intake and Output for Last 24 Hours 08/13/20 08/14/20 08/15/20 23:59 23:59 23:59 Intake Total 2605 / 2605 2836.67 / 2836.67 1548.34 / 1548.34 Output Total 1000 / 1000 500 / 500 Balance 1605 / 1605 2336.67 / 2336.67 1548.34 / 1548.34 General: Alert, Oriented x3, Cooperative HEENT: Atraumatic, PERRLA, EOMI, Normocephalic Neck: Supple, No JVD, Negative Carotid Bruits Lungs: Diminished, Wheezes Cardiovascular: Regular rate, No murmurs Abdomen: Bowel Sounds Present, Soft, Non Tender, Non-Distended Extremities: No clubbing, No cyanosis, No edema, Capillary Refill Less than 3 Seconds Skin: No rashes, No breakdown Musculoskeletal: No Tenderness to Palpation of Joints or Extremities Neurological: Cranial nerves II-XII grossly intact, Neuro grossly intact Psych/Mental Status: Anxious Microbiology Past 72 Hours 08/12/20 17:55 Blood Culture (Wb) #2 - Left Hand Blood Culture - Preliminary No growth in 48 hours. 08/12/20 17:00 Blood Culture (Wb) - Left Wrist Blood Culture - Preliminary No growth in 48 hours. 08/14/20 09:05 Mucosa - Nasopharyngeal Respiratory Panel (PCR) - Final 08/13/20 01:20 Interface Orders Urine Culture - Final Mixed Gram Pos & Gram Neg Org 08/12/20 17:42 Mucosa - Nose SARS-CoV-2 Antigen (Rapid) - Final Laboratory Results 08/14/20 14:25: Troponin I < 0.015 08/14/20 14:25: Sodium 139, Potassium 4.3, Chloride 103, Carbon Dioxide 29.0, Anion Gap 7, BUN 20 H, Creatinine 0.96, Estim Creat Clear Calc 42.53, Est GFR (MDRD) Af Amer 73, Est GFR (MDRD) Non-Af 60, BUN/Creatinine Ratio 20.7 H, Glucose 304 H, Calcium 9.4, Magnesium 2.1 08/14/20 16:38: POC Glucose 200 H 08/14/20 17:05: Troponin I < 0.015 08/14/20 20:04: Troponin I < 0.015 08/14/20 21:56: POC Glucose 259 H 08/15/20 06:37: POC Glucose 173 H 08/15/20 11:30: POC Glucose 276 H Current Medications Acetaminophen (Acetaminophen 325 Mg Tablet) 650 mg PO Q6H PRN PRN PRN Reason: Pain Score 1-10/Temp > 100.7 F Last Admin: 08/12/20 23:26 Dose: 650 mg Documented by: Benzonatate (Benzonatate 100 Mg Capsule) 100 mg PO TID PRN PRN PRN Reason: COUGH Last Admin: 08/15/20 11:35 Dose: 100 mg Documented by: Carbamazepine (Carbamazepine 200 Mg Tablet) 200 mg PO QHS [facility] Last Admin: 08/14/20 22:10 Dose: 200 mg Documented by: Enoxaparin Sodium (Enoxaparin 40 Mg/0.4 Ml Syringe) 40 mg SC BID [facility] Last Admin: 08/15/20 08:32 Dose: 40 mg Documented by: Ergocalciferol (Ergocalciferol 50,000 Unit Capsule) 50,000 unit PO SUWE@0800 [facility] Last Admin: 08/14/20 07:59 Dose: 50,000 unit Documented by: Guaifenesin (Guaifenesin 10 Ml Udc (200mg/10ml)) 10 ml PO Q6H PRN PRN PRN Reason: COUGH Last Admin: 08/15/20 05:34 Dose: 10 ml Documented by: Sodium Chloride () 250 mls @ 15 mls/hr IV .[id number] PRN PRN Reason: Saline Flush Sodium Chloride () 250 mls @ 15 mls/hr IV .[id number] PRN PRN Reason: Additional IVPB Infusion Levofloxacin (Levaquin Iv) 750 mg in 150 mls @ 100 mls/hr IV Q24@2200 [facility] Last Infusion: 08/14/20 23:27 Dose: Infused Documented by: Insulin Human Lispro (Insulin Lispro 100 Unit/Ml Insuln.Pen) 0 unit SC ACHS [facility]; Protocol Last Admin: 08/15/20 11:35 Dose: 9 units Documented by: Insulin Human Regular (Insulin U-500 Units/Ml Pen) 85 units SC DINNER [facility] Last Admin: 08/14/20 18:27 Dose: 85 units Documented by: Insulin Human Regular (Insulin U-500 Units/Ml Pen) 95 units SC BREAKFAST [facility] Last Admin: 08/15/20 08:32 Dose: 95 u Documented by: Ipratropium [place] (Ipratropium 0.5 Mg/2.5 Ml Solution) 0.5 mg INHALATION Q4H.RT [facility] Last Admin: 08/15/20 10:54 Dose: 0.5 mg Documented by: Loratadine (Loratadine 10 Mg Tablet) 5 mg PO QHS [facility] Last Admin: 08/14/20 21:57 Dose: 5 mg Documented by: Methylprednisolone (Methylprednisolone 40 Mg/Ml Vial) 40 mg IV Q6 [facility] Last Admin: 08/15/20 11:34 Dose: 40 mg Documented by: Montelukast Sodium (Montelukast 10 Mg Tablet) 10 mg PO DAILY [facility] Last Admin: 08/15/20 08:33 Dose: 10 mg Documented by: Nadolol (Nadolol 40 Mg Tablet) 40 mg PO DAILY [facility] Last Admin: 08/15/20 08:32 Dose: 40 mg Documented by: Nystatin (Nystatin Powder 15gm Bottle) 1 applic TOPICAL BID [facility]; Protocol Last Admin: 08/15/20 08:32 Dose: 1 applicatio Documented by: Ondansetron HCl (Ondansetron 4 Mg/2 Ml Vial) 4 mg IV Q8H PRN PRN PRN Reason: NAUSEA/VOMITING Paroxetine HCl (Paroxetine 20 Mg Tablet) 40 mg PO DAILY [facility] Last Admin: 08/15/20 08:33 Dose: 40 mg Documented by: Potassium Chloride (Potassium Chloride Oral Tablet 10 Meq) 10 meq PO DAILYCM [facility] Last Admin: 08/15/20 08:32 Dose: 10 meq Documented by: Pramipexole Dihydrochloride (Pramipexole Di-Hcl 0.5 Mg Tablet) 0.5 mg PO QHS [facility] Last Admin: 08/14/20 22:11 Dose: 0.5 mg Documented by: Medical Necessity - Tobacco Use Smoking Status: Former smoker Assessment/Plan All Active Problems Acute and chronic respiratory failure with hypoxia (Acute) Asthma exacerbation (Acute) Acute respiratory insufficiency (Acute) Asthmatic bronchitis (Acute) Suspected 2019-nCoV infection (Ruled-out) Lactic acidosis (Acute) Complicated UTI (urinary tract infection) (Acute) Acute delirium (Acute) USAMA (acute kidney injury) (Acute) Hypokalemia (Acute) Sepsis (Acute) Acute metabolic encephalopathy (Acute) UTI (urinary tract infection) (Acute) Acute severe exacerbation of asthma (Resolved) Staphylococcal pneumonia (Ruled-out) Streptococcal pneumonia (Ruled-out) Acute and chronic respiratory failure with hypoxia (Ruled-out) Cellulitis of right breast (Ruled-out) Influenza (Ruled-out) Acute asthma exacerbation (Acute) 1. Acute on chronic hypoxic respiratory failure secondary to acute on chronic exacerbation of asthma-Follows with Dr. Watters. Respiratory panel and Covid negative. Patient is on 2 L nasal cannula. Typically wears oxygen at bedtime only however suspect patient should be wearing oxygen [id number]. Ambulatory pulse ox pending. IV Solu-Medrol. Albuterol DuoNeb aerosols. Will repeat home oxygen qualification. Plan for discharge home tomorrow if patient remains stable. 2. Type 2 diabetes [id number] with sliding scale insulin. 3. Hypertension-continue nadolol regimen. 4. Allergic rhinitis-continue Singulair, levocetirizine regimen. 5. Anxiety/depression/ADD/bipolar-on paroxetine, carbamazepine. 6. Morbid obesity-encouraged diet lifestyle modifications. 7. Celiac disease-on gluten-free diet. 8. 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 9. GERD-continue PPI. 10. Restless leg syndrome-on Mirapex. DVT prophylaxis-Lovenox subcu This patient was seen by HIRAL Alarcon under the supervision of Dr. Gonzalez. <LisaDanielle - Last Filed: 08/15/20 17:16> - Physical Exam Vitals/I&O's: Vital Signs Temp Pulse Resp BP Pulse Ox 96.7 F L 70 20 H 158/60 H 98 08/15/20 15:31 08/15/20 15:31 08/15/20 15:31 08/15/20 15:31 08/15/20 15:31 Oxygen Flow Rate (L/min) 2 Oxygen Delivery Method Bi-pap Weight: 314 lb 13.121 oz Body Mass Index (BMI) 55.7 Finger Stick Blood Glucose 154 Intake and Output for Last 24 Hours 08/13/20 08/14/20 08/15/20 23:59 23:59 23:59 Intake Total 2605 / 2605 2836.67 / 2836.67 1548.34 / 1548.34 Output Total 1000 / 1000 500 / 500 Balance 1605 / 1605 2336.67 / 2336.67 1548.34 / 1548.34 Microbiology Past 72 Hours 08/12/20 17:55 Blood Culture (Wb) #2 - Left Hand Blood Culture - Preliminary No growth in 48 hours. 08/12/20 17:00 Blood Culture (Wb) - Left Wrist Blood Culture - Preliminary No growth in 48 hours. 08/14/20 09:05 Mucosa - Nasopharyngeal Respiratory Panel (PCR) - Final 08/13/20 01:20 Interface Orders Urine Culture - Final Mixed Gram Pos & Gram Neg Org 08/12/20 17:42 Mucosa - Nose SARS-CoV-2 Antigen (Rapid) - Final Laboratory Results 08/14/20 17:05: Troponin I < 0.015 08/14/20 20:04: Troponin I < 0.015 08/14/20 21:56: POC Glucose 259 H 08/15/20 06:37: POC Glucose 173 H 08/15/20 11:30: POC Glucose 276 H Current Medications Acetaminophen (Acetaminophen 325 Mg Tablet) 650 mg PO Q6H PRN PRN PRN Reason: Pain Score 1-10/Temp > 100.7 F Last Admin: 08/12/20 23:26 Dose: 650 mg Documented by: Benzonatate (Benzonatate 100 Mg Capsule) 100 mg PO TID PRN PRN PRN Reason: COUGH Last Admin: 08/15/20 11:35 Dose: 100 mg Documented by: Carbamazepine (Carbamazepine 200 Mg Tablet) 200 mg PO QHS [facility] Last Admin: 08/14/20 22:10 Dose: 200 mg Documented by: Enoxaparin Sodium (Enoxaparin 40 Mg/0.4 Ml Syringe) 40 mg SC BID [facility] Last Admin: 08/15/20 08:32 Dose: 40 mg Documented by: Ergocalciferol (Ergocalciferol 50,000 Unit Capsule) 50,000 unit PO SUWE@0800 [facility] Last Admin: 08/14/20 07:59 Dose: 50,000 unit Documented by: Guaifenesin (Guaifenesin 10 Ml Udc (200mg/10ml)) 10 ml PO Q6H PRN PRN PRN Reason: COUGH Last Admin: 08/15/20 05:34 Dose: 10 ml Documented by: Sodium Chloride () 250 mls @ 15 mls/hr IV .[id number] PRN PRN Reason: Saline Flush Sodium Chloride () 250 mls @ 15 mls/hr IV .[id number] PRN PRN Reason: Additional IVPB Infusion Levofloxacin (Levaquin Iv) 750 mg in 150 mls @ 100 mls/hr IV Q24@2200 [facility] Last Infusion: 08/14/20 23:27 Dose: Infused Documented by: Insulin Human Lispro (Insulin Lispro 100 Unit/Ml Insuln.Pen) 0 unit SC ACHS [facility]; Protocol Last Admin: 08/15/20 11:35 Dose: 9 units Documented by: Insulin Human Regular (Insulin U-500 Units/Ml Pen) 85 units SC DINNER [facility] Last Admin: 08/14/20 18:27 Dose: 85 units Documented by: Insulin Human Regular (Insulin U-500 Units/Ml Pen) 95 units SC BREAKFAST [facility] Last Admin: 08/15/20 08:32 Dose: 95 u Documented by: Ipratropium [place] (Ipratropium 0.5 Mg/2.5 Ml Solution) 0.5 mg INHALATION Q4H.RT [facility] Last Admin: 08/15/20 15:07 Dose: 0.5 mg Documented by: Loratadine (Loratadine 10 Mg Tablet) 5 mg PO QHS [facility] Last Admin: 08/14/20 21:57 Dose: 5 mg Documented by: Methylprednisolone (Methylprednisolone 40 Mg/Ml Vial) 40 mg IV Q6 [facility] Last Admin: 08/15/20 11:34 Dose: 40 mg Documented by: Montelukast Sodium (Montelukast 10 Mg Tablet) 10 mg PO DAILY [facility] Last Admin: 08/15/20 08:33 Dose: 10 mg Documented by: Nadolol (Nadolol 40 Mg Tablet) 40 mg PO DAILY [facility] Last Admin: 08/15/20 08:32 Dose: 40 mg Documented by: Nystatin (Nystatin Powder 15gm Bottle) 1 applic TOPICAL BID [facility]; Protocol Last Admin: 08/15/20 08:32 Dose: 1 applicatio Documented by: Ondansetron HCl (Ondansetron 4 Mg/2 Ml Vial) 4 mg IV Q8H PRN PRN PRN Reason: NAUSEA/VOMITING Paroxetine HCl (Paroxetine 20 Mg Tablet) 40 mg PO DAILY [facility] Last Admin: 08/15/20 08:33 Dose: 40 mg Documented by: Potassium Chloride (Potassium Chloride Oral Tablet 10 Meq) 10 meq PO DAILYCM [facility] Last Admin: 08/15/20 08:32 Dose: 10 meq Documented by: Pramipexole Dihydrochloride (Pramipexole Di-Hcl 0.5 Mg Tablet) 0.5 mg PO QHS [facility] Last Admin: 08/14/20 22:11 Dose: 0.5 mg Documented by: Assessment/Plan Patient seen by Jenna BLACKMAN under my supervision Patient seen and examined. She said she was getting better though she still has a cough. She does not feel comfortable going home today because he does not feel like she is back at her baseline. Repeat EKG done yesterday showed no A. fib. She has been in normal sinus rhythm since. And therefore doubtful that she really had A. fib. O/E: Vital Signs Temp Pulse Resp BP Pulse Ox 96.7 F L 70 20 H 158/60 H 98 08/15/20 15:31 08/15/20 15:31 08/15/20 15:31 08/15/20 15:31 08/15/20 15:31 General: Alert, Oriented x3, Cooperative, super morbid obesity HEENT: Atraumatic, PERRLA, EOMI, Normocephalic Neck: Supple, No JVD, Negative Carotid Bruits Lungs: mildly tachypneic, bilateral wheezing in all lung holcomb. No crackles. On room air Cardiovascular: Normal S1, Normal S2, No murmurs, rate irregularly irregular Abdomen: Bowel Sounds Present, Soft, Non Tender, Obese Extremities: No edema, Capillary Refill Less than 3 Seconds Skin: No rashes, No breakdown Musculoskeletal: No Tenderness to Palpation of Joints or Extremities Neurological: Cranial nerves II-XII grossly intact Psych/Mental Status: Normal Affect, Appropriate Plan is to continue breathing treatments. Titrate oxygen to maintain saturation above 90%. Now on Atrovent inhalers. Albuterol and DuoNeb stopped. Respiratory panel was negative. 2D echo showed EF of 65% with evidence of diastolic dysfunction. I do not think patient really had any atrial fibrillation as repeat EKGs have been negative and she has remained in sinus rhythm. For likely discharge tomorrow Rest as per Jenna Cabrera FISH SMOKER-C's note, which I have reviewed and endorsed. Inpatient E&M: 32013 Subs Hosp L2
[2020-08-15] MEDS: Insulin U-500 UNITS/ML PEN 85 UNITS SC (17:14)
[2020-08-15] MEDS: 0.9% Saline Lock 10 ML Syringe IV (17:15)
[2020-08-15 17:16] LABS: Bedside Glucose 245 mg/dL (70-110)
[2020-08-15] MEDS: Pramipexole Di-HCl 0.5 MG Tablet PO (21:21)
[2020-08-15] MEDS: carBAMazepine 200 MG Tablet PO (21:21)
[2020-08-15] MEDS: Loratadine 10 MG Tablet 5 MG PO (21:22)
[2020-08-15 21:36] LABS: Bedside Glucose 292 mg/dL (70-110)
[2020-08-15] MEDS: levoFLOXacin IV 750 MG/150 ML BAG 100 MG IV (23:52)
[2020-08-16] VITALS (9 sets, daily range): BP systolic 149–187; BP diastolic 81–95; PULSE 63–89; RESP 18–24; TEMP 36.4–37.1; O2SAT 91–96
[2020-08-16] MEDS: Ipratropium 0.5 MG/2.5 ML SOLUTION INHALATION ×3 (02:25→11:16)
[2020-08-16] MEDS: guaiFENesin 10 ML UDC (200MG/10ML) PO (05:23)
[2020-08-16] MEDS: Insulin U-500 UNITS/ML PEN 95 UNITS SC (08:03)
[2020-08-16] MEDS: Potassium Chloride Oral Tablet 10 MEQ PO (08:05)
[2020-08-16 08:11] LABS: Bedside Glucose 122 mg/dL (70-110)
[2020-08-16] MEDS: Paroxetine 20 MG Tablet 40 MG PO (10:10)
[2020-08-16] MEDS: Nadolol 40 MG Tablet PO (10:10)
[2020-08-16] MEDS: predniSONE 20 MG Tablet 40 MG PO (10:10)
[2020-08-16] MEDS: Montelukast 10 MG Tablet PO (10:10)
[2020-08-16] MEDS: Enoxaparin 40 MG/0.4 ML Syringe SC (10:11)
--- NOTE | 2020-08-16 11:53 | DCINST_ITS ---
- Discharge Diagnoses Current Active Problems: Current Active and Chronic Problems Acute and chronic respiratory failure with hypoxia (Acute) Asthma exacerbation (Acute) Acute respiratory insufficiency (Acute) Allergic rhinitis (Chronic) Chronic respiratory failure with hypoxia (Chronic) Breast cancer, right breast (Chronic) Hypertension (Chronic) Diabetes mellitus (Chronic) Obstructive sleep apnea (Chronic) Osteoarthritis (Chronic) Asthma (Chronic) Acute asthma exacerbation (Acute) Diabetes mellitus, type II (Chronic) Anxiety and depression (Chronic) You will use the following diet at home:: Calorie/Carbohydrate Controlled (specify 1200, 1400, etc) Discharge Activity: Return to Normal Activity Call your doctor if you observe: Fever of 101 or Higher, - - Worsening shortness of breath Allergies/Adverse Reactions: Allergies adhesive tape Allergy (Verified 08/12/20 16:23) Unknown listed on pcp allergy list cefadroxil [From Duricef] Allergy (Verified 08/12/20 16:23) Unknown gluten Allergy (Verified 08/12/20 16:23) Other Celiac disease mesalamine [From Asacol] Allergy (Verified 08/12/20 16:23) Unknown listed on pcp allergy list omalizumab [From Xolair] Allergy (Verified 08/12/20 16:23) Unknown listed on pcp allergy list Sulfa (Sulfonamide Antibiotics) Allergy (Verified 08/12/20 16:23) Unknown oxycodone Adverse Reaction (Verified 08/12/20 16:23) Vomiting Medications to take at Discharge Cholecalciferol (Vitamin D3) [Vitamin D3] 50,000 unit PO SUWE@0800 06/01/17 Pramipexole Di-HCl [Mirapex] 0.5 mg PO QHS 06/01/17 Albuterol Aerosols [Ventolin Aerosols] 2.5 mg INHALATION Q2H PRN PRN #1 box 11/26/17 Albuterol IH (ProAir) [Proair Hfa] 2 puff INHALATION Q6H PRN PRN 03/25/18 Budesonide [Rhinocort Allergy] 2 puff NARES DAILY 06/12/18 Carbamazepine 200 mg PO QHS 03/01/19 Methylphenidate HCl [Methylphenidate ER] 20 mg PO BID 03/01/19 Nadolol [Corgard (Beta Tiffanie)] 40 mg PO DAILY 03/01/19 Paroxetine HCl [Paxil] 40 mg PO DAILY 03/01/19 Loperamide [Imodium] 2 mg PO Q4H PRN PRN cap 10/08/19 Insulin U-500 *Concentrated* [Humulin R U-500 *Concentrated Insulin*] 85 units SQ DINNER 03/22/20 Levocetirizine Dihydrochloride [Xyzal] 5 mg PO QHS 03/22/20 Montelukast [Singulair] 10 mg PO DAILY 03/22/20 Nystatin Powder [Mycostatin Powder] 1 applic TOPICAL BID 03/22/20 Potassium Chloride Oral Tablet [K-Dur] 10 meq PO DAILYCM 03/22/20 Insulin U-500 *Concentrated* [Humulin R U-500 *Concentrated Insulin*] 95 units SQ BREAKFAST 08/12/20 Prednisone See Taper PO DAILY #30 tab 08/16/20 levoFLOXacin tablet [Levaquin tablet] 750 mg PO DAILY@2200 #4 tab 08/16/20 The following prescriptions were given: levoFLOXacin tablet [Levaquin tablet] 750 mg PO DAILY@2200 #4 tab Transmission Status: P[facility] to [facility] Prednisone See Taper PO DAILY #30 tab Transmission Status: Pending to [facility] Primary Care Physician: Senait Jay MD [Primary Care Provider] - Please follow up with your Primary Care Physician in: 1 Week Test Results: Test results from this visit will be discussed in further detail at your follow- up appointment, if applicable. Please Follow Up With: Dre Watters MD When: 1 Week Proposed Discharge Date: 08/16/20
[2020-08-16] MEDS: Insulin Lispro 100 UNIT/ML INSULN.PEN SC (12:42)
--- NOTE | 2020-08-16 12:49 | PCM.DC.SUM ---
<Jenna Cabrera NET APPLICATION SUPPORT SPECIALIST - Last Filed: 08/16/20 13:01> Discharge Date and Diagnosis - Problem List Patient Problems: Active and Suspected Problems Acute and chronic respiratory failure with hypoxia (Acute) Asthma exacerbation (Acute) Acute asthma exacerbation (Acute) Date of Admission: 08/12/20 Date of Discharge: 08/16/20 - Primary Discharge Diagnosis Acute Problems: Active Problems 1. Acute on chronic hypoxic respiratory failure secondary to acute on chronic exacerbation of asthma 2. Type 2 diabetes mellitus 3. Hypertension 4. Allergic rhinitis 5. Anxiety/depression/ADD/bipolar 6. Morbid obesity 7. Celiac disease 8. DORY 9. GERD 10. Restless leg syndrome - Secondary Discharge Diagnosis Chronic Problems: Chronic Problems Allergic rhinitis (Chronic) Chronic respiratory failure with hypoxia (Chronic) Breast cancer, right breast (Chronic) Vitamin D deficiency (Chronic) Hypertension (Chronic) Diabetes mellitus (Chronic) Body mass index (BMI) 50-59.9, adult (Chronic) Migraine headache (Chronic) Obstructive sleep apnea (Chronic) Osteoarthritis (Chronic) Asthma (Chronic) History of right breast cancer (Chronic) Sleep apnea (Chronic) Diabetes mellitus, type II (Chronic) Anxiety and depression (Chronic) Hospital Course and Treatment Imaging Results: Diagnostic Data Chest X-Ray 08/13/20 07:28 IMPRESSION: Left lower lobe infiltrate suggesting atelectasis or pneumonia. Electronically Signed: Owen Crowder MD (Brooks) at 7:42 EST , Service support , Operations: None Procedures: 2-D Echocardiogram Summary of Care Provided: The patient is a 75 year old F admitted 08/12/2020 due to shortness of breath and wheezing. 1. Acute on chronic hypoxic respiratory failure secondary to acute on chronic exacerbation of asthma-Follows with Dr. Watters. Respiratory panel and Covid negative. Oxygen now stable on room air. Typically wears oxygen at bedtime only however states she wears it as needed with anxiety. Ambulatory pulse ox completed and oxygen stable on room air at rest and with ambulation. Prednisone taper at discharge. Continue Levaquin to complete course. Follow-up with pulmonary medicine and PCP in 1 week. 2. Type 2 diabetes mellitus-continue home insulin regimen. 3. Hypertension-continue nadolol regimen. 4. Allergic rhinitis-continue Singulair, levocetirizine regimen. 5. Anxiety/depression/ADD/bipolar-on paroxetine, carbamazepine. 6. Morbid obesity-encouraged diet lifestyle modifications. 7. Celiac disease-on gluten-free diet. 8. DORY-on BIPAP nightly and as needed. 9. GERD-continue PPI. 10. Restless leg syndrome-on Mirapex. 11. New onset atrial fibrillation-ruled out. Initially suspected on telemetry however subsequent telemetry and EKGs showed no evidence of A. fib. General: Alert, Oriented x3, Cooperative HEENT: Atraumatic, PERRLA, EOMI, Normocephalic Neck: Supple, No JVD, Negative Carotid Bruits Lungs: Diminished, scattered wheezing however improved Cardiovascular: Regular rate, No murmurs Abdomen: Bowel Sounds Present, Soft, Non Tender, Non-Distended Extremities: No clubbing, No cyanosis, No edema, Capillary Refill Less than 3 Seconds Skin: No rashes, No breakdown Musculoskeletal: No Tenderness to Palpation of Joints or Extremities Neurological: Cranial nerves II-XII grossly intact, Neuro grossly intact Psych/Mental Status: Anxious Patient seen and examined prior to discharge. Physical assessment as noted above. Patient is stable for discharge with follow up recommendations as noted above. This patient was seen by HIRAL Alarcon under the supervision of Dr. Gonzalez. Patient Problems: Active and Suspected Problems Acute and chronic respiratory failure with hypoxia (Acute) Asthma exacerbation (Acute) Acute asthma exacerbation (Acute) - Physical Exam Vitals/I&O's: Vital Signs Temp Pulse Resp BP Pulse Ox 98.7 F 67 24 H 149/81 H 91 08/16/20 10:05 08/16/20 11:16 08/16/20 11:16 08/16/20 10:05 08/16/20 10:25 Oxygen Flow Rate (L/min) 2 Oxygen Delivery Method Room Air Weight: 314 lb 13.121 oz Body Mass Index (BMI) 55.7 Finger Stick Blood Glucose 154 Intake and Output for Last 24 Hours 08/14/20 08/15/20 08/16/20 23:59 23:59 23:59 Intake Total 2836.67 / 2836.67 2028.34 / 2268.34 810 / 810 Output Total 500 / 500 Balance 2336.67 / 2336.67 2028.34 / 2268.34 810 / 810 Microbiology Past 72 Hours 08/15/20 15:35 Sputum, Expectorated/Coughed Gram Stain - Final 08/15/20 15:35 Sputum, Expectorated/Coughed Respiratory Culture - Preliminary Appears to be normal respiratory mary. Further studies to follow. 08/12/20 17:55 Blood Culture (Wb) #2 - Left Hand Blood Culture - Preliminary No growth in 48 hours. 08/12/20 17:00 Blood Culture (Wb) - Left Wrist Blood Culture - Preliminary No growth in 48 hours. 08/14/20 09:05 Mucosa - Nasopharyngeal Respiratory Panel (PCR) - Final 08/13/20 01:20 Interface Orders Urine Culture - Final Mixed Gram Pos & Gram Neg Org Laboratory Results 08/15/20 17:01: POC Glucose 245 H 08/15/20 21:19: POC Glucose 292 H 08/16/20 08:01: POC Glucose 122 H Current Medications Acetaminophen (Acetaminophen 325 Mg Tablet) 650 mg PO Q6H PRN PRN PRN Reason: Pain Score 1-10/Temp > 100.7 F Last Admin: 08/12/20 23:26 Dose: 650 mg Documented by: Benzonatate (Benzonatate 100 Mg Capsule) 100 mg PO TID PRN PRN PRN Reason: COUGH Last Admin: 08/15/20 11:35 Dose: 100 mg Documented by: Carbamazepine (Carbamazepine 200 Mg Tablet) 200 mg PO QHS [facility] Last Admin: 08/15/20 21:21 Dose: 200 mg Documented by: Enoxaparin Sodium (Enoxaparin 40 Mg/0.4 Ml Syringe) 40 mg SC BID [facility] Last Admin: 08/16/20 10:11 Dose: 40 mg Documented by: Ergocalciferol (Ergocalciferol 50,000 Unit Capsule) 50,000 unit PO SUWE@0800 [facility] Last Admin: 08/14/20 07:59 Dose: 50,000 unit Documented by: Guaifenesin (Guaifenesin 10 Ml Udc (200mg/10ml)) 10 ml PO Q6H PRN PRN PRN Reason: COUGH Last Admin: 08/16/20 05:23 Dose: 10 ml Documented by: Sodium Chloride () 250 mls @ 15 mls/hr IV .[id number] PRN PRN Reason: Saline Flush Sodium Chloride () 250 mls @ 15 mls/hr IV .[id number] PRN PRN Reason: Additional IVPB Infusion Insulin Human Lispro (Insulin Lispro 100 Unit/Ml Insuln.Pen) 0 unit SC ACHS [facility]; Protocol Last Admin: 08/16/20 12:42 Dose: 6 units Documented by: Insulin Human Regular (Insulin U-500 Units/Ml Pen) 85 units SC DINNER [facility] Last Admin: 08/15/20 17:14 Dose: 85 units Documented by: Insulin Human Regular (Insulin U-500 Units/Ml Pen) 95 units SC BREAKFAST [facility] Last Admin: 08/16/20 08:03 Dose: 95 u Documented by: Ipratropium Muse (Ipratropium 0.5 Mg/2.5 Ml Solution) 0.5 mg INHALATION Q4H.RT [facility] Last Admin: 08/16/20 11:16 Dose: 0.5 mg Documented by: Levofloxacin (Levofloxacin 750 Mg Tablet) 750 mg PO DAILY@2200 STACY Loratadine (Loratadine 10 Mg Tablet) 5 mg PO QHS [facility] Last Admin: 08/15/20 21:22 Dose: 5 mg Documented by: Montelukast Sodium (Montelukast 10 Mg Tablet) 10 mg PO DAILY [facility] Last Admin: 08/16/20 10:10 Dose: 10 mg Documented by: Nadolol (Nadolol 40 Mg Tablet) 40 mg PO DAILY [facility] Last Admin: 08/16/20 10:10 Dose: 40 mg Documented by: Nystatin (Nystatin Powder 15gm Bottle) 1 applic TOPICAL BID [facility]; Protocol Last Admin: 08/16/20 10:11 Dose: Not Given Documented by: Ondansetron HCl (Ondansetron 4 Mg/2 Ml Vial) 4 mg IV Q8H PRN PRN PRN Reason: NAUSEA/VOMITING Paroxetine HCl (Paroxetine 20 Mg Tablet) 40 mg PO DAILY [facility] Last Admin: 08/16/20 10:10 Dose: 40 mg Documented by: Potassium Chloride (Potassium Chloride Oral Tablet 10 Meq) [facility] Last Admin: 08/16/20 08:05 Dose: 10 meq Documented by: Pramipexole Dihydrochloride (Pramipexole Di-Hcl 0.5 Mg Tablet) 0.5 mg PO QHS [facility] Last Admin: 08/15/20 21:21 Dose: 0.5 mg Documented by: Prednisone (Prednisone 20 Mg Tablet) 40 mg PO DAILY@0800 STAC[facility] Last Admin: 08/16/20 10:10 Dose: 40 mg Documented by: Discharge Diet: Carb Control Diet Discharge Activity: Return to Normal Activity Call your doctor if you observe: Fever of 101 or Higher, - - Worsening shortness of breath Home Medications: Medications to take at Discharge Cholecalciferol (Vitamin D3) [Vitamin D3] 50,000 unit PO SUWE@0800 06/01/17 Pramipexole Di-HCl [Mirapex] 0.5 mg PO QHS 06/01/17 Albuterol Aerosols [Ventolin Aerosols] 2.5 mg INHALATION Q2H PRN PRN #1 box 11/26/17 Albuterol IH (ProAir) [Proair Hfa] 2 puff INHALATION Q6H PRN PRN 03/25/18 Budesonide [Rhinocort Allergy] 2 puff NARES DAILY 06/12/18 Carbamazepine 200 mg PO QHS 03/01/19 Methylphenidate HCl [Methylphenidate ER] 20 mg PO BID 03/01/19 Nadolol [Corgard (Beta Tiffanie)] 40 mg PO DAILY 03/01/19 Paroxetine HCl [Paxil] 40 mg PO DAILY 03/01/19 Loperamide [Imodium] 2 mg PO Q4H PRN PRN cap 10/08/19 Insulin U-500 *Concentrated* [Humulin R U-500 *Concentrated Insulin*] 85 units SQ DINNER 03/22/20 Levocetirizine Dihydrochloride [Xyzal] 5 mg PO QHS 03/22/20 Montelukast [Singulair] 10 mg PO DAILY 03/22/20 Nystatin Powder [Mycostatin Powder] 1 applic TOPICAL BID 03/22/20 Potassium Chloride Oral Tablet [K-Dur] 10 meq PO DAILYCM 03/22/20 Insulin U-500 *Concentrated* [Humulin R U-500 *Concentrated Insulin*] 95 units SQ BREAKFAST 08/12/20 Prednisone See Taper PO DAILY #30 tab 08/16/20 levoFLOXacin tablet [Levaquin tablet] 750 mg PO DAILY@0 #4 tab 08/16/20 Following Prescriptions Were Given to Patient: levoFLOXacin tablet [Levaquin tablet] 750 mg PO DAILY@2200 #4 tab Transmission Status: Received by ERNIE [facility]TO[facility] [facility] Prednisone See Taper PO DAILY #30 tab Transmission Status: Received by ERNIE MONTOYA-[address] [facility] Primary Care Physician: Senait Jay MD [Primary Care Provider] - Please follow up with your Primary Care Physician in: 1 Week Please Follow Up With: Dre Watters MD When: 1 Week Disposition: Home with Home Health Minutes spent on discharge:: 35 Patient Condition:: Stable Medical Necessity - Tobacco Use Smoking Status: Former smoker Meaningful Use Info Meaningful Use Diagnoses (Choose all that apply): None applicable <Danielle Gonzalez - Last Filed: 08/16/20 16:01> Discharge Date and Diagnosis - Primary Discharge Diagnosis Acute Problems: Active Problems Acute and chronic respiratory failure with hypoxia (Acute) Asthma exacerbation (Acute) Acute asthma exacerbation (Acute) - Secondary Discharge Diagnosis Chronic Problems: Chronic Problems Allergic rhinitis (Chronic) Asthmatic bronchitis (Chronic) Chronic respiratory failure with hypoxia (Chronic) Breast cancer, right breast (Chronic) Vitamin D deficiency (Chronic) Hypertension (Chronic) Diabetes mellitus (Chronic) Body mass index (BMI) 50-59.9, adult (Chronic) Migraine headache (Chronic) Obstructive sleep apnea (Chronic) Osteoarthritis (Chronic) Asthma (Chronic) History of right breast cancer (Chronic) Sleep apnea (Chronic) Diabetes mellitus, type II (Chronic) Anxiety and depression (Chronic) Hospital Course and Treatment Summary of Care Provided: Patient seen by Jenna BLACKMAN under my supervision The patient is a 75 year old F admitted with a complaint of shortness of breath as well as wheezing and is being managed for acute exacerbation of asthma. On admission, she was found to be saturating at 87%. She is on 2 L of oxygen and is on Solu-Medrol and breathing treatments with bronchodilators. Of note, covid test was negative. He was managed for acute asthma exacerbation. Respiratory panel done was also negative. She was put on breathing treatments with bronchodilators and IV Solu-Medrol. Patient gradually improved she was also subsequently started on Levaquin. Spittle stay was complicated by questionable A. fib. She had 1 EKG done that showed possibility of A. fib. However she remained in sinus rhythm after that and did not have any A. fib again. I am therefore doubtful that she really had any atrial fibrillation telemetry did not show any evidence of A. fib throughout her admission. Patient shortness of breath gradually improved and she stabilized. Ambulatory pulse ox done but she did not require any home oxygen. Patient was discharged home on 08/16/2020 with a tapering dose of prednisone completes a course of Levaquin. She is follow-up with her primary care doctor and pulmonology in 1 to 2 weeks. Patient seen and examined prior to discharge. She had no complaints. Review of stems otherwise negative. She felt better. Labs and vitals reviewed. Medication reviewed and reconciled. O/E: Vital Signs Temp Pulse Resp BP Pulse Ox 98.7 F 67 24 H 149/81 H 91 08/16/20 10:05 08/16/20 11:16 08/16/20 11:16 08/16/20 10:05 08/16/20 12:55 General: Alert, Oriented x3, Cooperative, super morbid obesity HEENT: Atraumatic, PERRLA, EOMI, Normocephalic Neck: Supple, No JVD, Negative Carotid Bruits Lungs: mildly tachypneic, bilateral wheezing in all lung holcomb. No crackles. On room air Cardiovascular: Normal S1, Normal S2, No murmurs, rate irregularly irregular Abdomen: Bowel Sounds Present, Soft, Non Tender, Obese Extremities: No edema, Capillary Refill Less than 3 Seconds Skin: No rashes, No breakdown Musculoskeletal: No Tenderness to Palpation of Joints or Extremities Neurological: Cranial nerves II-XII grossly intact Psych/Mental Status: Normal Affect, Appropriate Plan is for discharge home today. Rest as per Jenna Cabrera NET APPLICATION SUPPORT SPECIALIST-C's note, which I have reviewed and endorsed. - Physical Exam Vitals/I&O's: Vital Signs Temp Pulse Resp BP Pulse Ox 98.7 F 67 24 H 149/81 H 91 08/16/20 10:05 08/16/20 11:16 08/16/20 11:16 08/16/20 10:05 08/16/20 12:55 Oxygen Flow Rate (L/min) 2 Oxygen Delivery Method Room Air Weight: 314 lb 13.121 oz Body Mass Index (BMI) 55.7 Finger Stick Blood Glucose 154 Intake and Output for Last 24 Hours 08/14/20 08/15/20 08/16/20 23:59 23:59 23:59 Intake Total 2836.67 / 2836.67 2028.34 / 2268.34 810 / 810 Output Total 500 / 500 Balance 2336.67 / 2336.67 2027.34 / 8.34 810 / 810 Microbiology Past 72 Hours 08/15/20 15:35 Sputum, Expectorated/Coughed Gram Stain - Final 08/15/20 15:35 Sputum, Expectorated/Coughed Respiratory Culture - Preliminary Appears to be normal respiratory mary. Further studies to follow. 08/12/20 17:55 Blood Culture (Wb) #2 - Left Hand Blood Culture - Preliminary No growth in 48 hours. 08/12/20 17:00 Blood Culture (Wb) - Left Wrist Blood Culture - Preliminary No growth in 48 hours. 08/14/20 09:05 Mucosa - Nasopharyngeal Respiratory Panel (PCR) - Final 08/13/20 01:20 Interface Orders Urine Culture - Final Mixed Gram Pos & Gram Neg Org Laboratory Results 08/15/20 17:01: POC Glucose 245 H 08/15/20 21:19: POC Glucose 292 H 08/16/20 08:01: POC Glucose 122 H 08/16/20 12:41: POC Glucose 222 H Inpatient E&M: [id number] Disch Hosp
[2020-08-16 12:56] LABS: Bedside Glucose 222 mg/dL (70-110)
--- NOTE | 2020-08-19 15:23 | CASEMGMT ---
JASWINDER PLASCENCIA Discharge Follow up Phone Call: RASHEL: Diane Strata: 4 Call Date: 08/19/2020 Time of Call:[id number] Duration: 3 min Admitting Diagnosis: acute on chronic respiratory failure with hypoxia, asthma exacerbation JASWINDER PLASCENCIA completed FU tc after recent hospitalization. Pt states she has an appt tomorrow and Wednesday with PCP and Dr. Watters. Pt has picked up her rx. Pt voiced some complaints, offered to forward and pt declined. Pt denies further questions or concerns at this time.
== END 2020-08-16 14:59 | disposition home or self-care (01) | DRG 202 ==
LOC: ED 19:06 → MS3 20:12 → PCU 08-14 15:20
PROVIDERS: Nurse Practitioner Family; Physician Assistant; Admitting Provider Internal Medicine; Emergency Provider Emergency Medicine; PCP Internal Medicine; Visit Provider Student in an Organized Health Care Education/Training Program
DX: J45.901 Unspecified asthma with (acute) exacerbation (principal); J96.21 Acute and chronic respiratory failure with hypoxia; Z68.43 Body mass index [BMI] 50.0-59.9, adult; E11.9 Type 2 diabetes mellitus without complications; I10 Essential (primary) hypertension; F41.9 Anxiety disorder, unspecified; F32.9 Major depressive disorder, single episode, unspecified; E66.01 Morbid (severe) obesity due to excess calories; K90.0 Celiac disease; G47.33 Obstructive sleep apnea (adult) (pediatric); K21.9 Gastro-esophageal reflux disease without esophagitis; G25.81 Restless legs syndrome; Z87.891 Personal history of nicotine dependence; R07.9 Chest pain, unspecified
CPT/HCPCS: 36415; 71045; 71046; 80048; 80053; 81001; 82962; 83605; 83735; 83880; 84484; 85025; 85379; 85610; 87040; 87070; 87086; 87088; 87205; 87426; 87633; 93005; 93306; 94002; 94003; 94640; 97802; 99251; 99285; J7030; J7120; Q9957; A4216; C8929; G0463

== ENCOUNTER 2020-09-27 15:04 | Observation (INO) | payer MEDICARE, SELFPAY ==
[2020-08-12 20:14] VITALS: BMI 55.7
[2020-09-27] VITALS (8 sets, daily range): BP systolic 146–179; BP diastolic 71–81; PULSE 73–89; RESP 16–24; TEMP 36.6–37.1; O2SAT 87–97; BMI 53.1; BMI 56.2
--- NOTE | 2020-09-27 15:21 | EKG12_ITS ---
Test Reason : Blood Pressure : / mmHG Vent. Rate : 077 BPM Atrial Rate : 092 BPM P-R Int : 216 ms QRS Dur : 076 ms QT Int : 384 ms P-R-T Axes : 068 -02 117 degrees QTc Int : 434 ms Sinus rhythm Low voltage QRS Borderline ECG Confirmed by JEFERSON RIVERA, GENIA ([id number]), international editorial producer CAROL VARGAS ([id number]) on 09/30/2020 9:51:33 AM Referred By: ALFONSO Confirmed By:BEAR GOVEA MD
--- NOTE | 2020-09-27 15:25 | ED.DCSUM_ITS ---
History of Present Illness Chief Complaint: Shortness of Breath Informant: Patient Onset: Days Timing: Continuous Quality: Dyspnea on exertion, Wheezing Narrative: Patient is a 75-year-old female with history of including asthma and obstructive sleep apnea with worsening shortness of breath. Patient was at her neurologist office today where she was found to have an O2 saturation of 83% on room air. She was sent to the ER for further evaluation. Patient was 87% on room air upon arrival. She states she had worsening shortness of breath and cough for the past 3 to 4 days. Is been productive of yellow sputum. She states it feels like her prior asthma exacerbations. Patient had 2 hospitalizations for the same presentation this year. Patient's last hospitalization was August 12 through August 16. At that time she was also treated Levaquin for associated pneumonia. Patient has been vaccinated for Covid. She denies any fever or chills. She states she had increased dyspnea on exertion. No swelling of her legs. No history of DVT or PE. Patient been using her home breathing treatments. She attributes this episode to recent changing of her furnace and her blue light allergen limiter not working. Patient has no other complaints at this time. States has been compliant with her nighttime BiPAP. She states she no longer wears oxygen at night because she got too good for it and they took it away. Past Medical History - Allergies and Home Meds Allergies/Adverse Reactions: Allergies adhesive tape Allergy (Verified 09/27/20 15:07) Unknown listed on pcp allergy list cefadroxil [From Duricef] Allergy (Verified 09/27/20 15:07) Unknown gluten Allergy (Verified 09/27/20 15:07) Other Celiac disease mesalamine [From Asacol] Allergy (Verified 09/27/20 15:07) Unknown listed on pcp allergy list omalizumab [From Xolair] Allergy (Verified 09/27/20 15:07) Unknown listed on pcp allergy list Sulfa (Sulfonamide Antibiotics) Allergy (Verified 09/27/20 15:07) Unknown oxycodone Adverse Reaction (Verified 09/27/20 15:07) Vomiting Primary Care Physician: Senait Jay MD [Primary Care Provider] - Past Medical History: - - Asthma, diabetes mellitus type 2, hypertension, anxiety/depression/ADD/bipolar disorder, gluten intolerance, DORY, GERD, restless leg syndrome, history of breast cancer Surgical History: noncontributory, hysterectomy, mastectomy - Right, lymph node dissection., - - Rectocele repair. Lives: Spouse/ Significant Other Smoking Status: Former smoker - Family History Paternal Family History: Reports: Cancer, Heart Disease - Father with history of fatal [place]. Maternal Family History: Reports: Cancer - Mother with a history of breast cancer eventually metastatic. Review of Systems General: Reports: Malaise. Denies: Chills, Fever, Sweats Eyes: Denies: Visual changes - bilaterally, Diplopia ENT: Denies: Rhinorrhea, Sore throat Cardiovascular: Denies: Chest pain, Palpitations Respiratory: Reports: Dyspnea, Cough, Dyspnea on exertion Gastrointestinal: Denies: Abdominal pain, Nausea, Vomiting, Diarrhea, Melena, Hematochezia Genitourinary: Denies: Dysuria, Hematuria, Frequency Musculoskeletal: Denies: Back pain, Extremity Pain Skin: Denies: Rash, Wounds Neurological: Denies: Headache, Weakness, Numbness Physical Exam Vital Signs/Narrative: Vital Signs Temp Pulse Resp BP Pulse Ox 09/27/20 15:05 97.9 F 89 20 H 176/78 H 87 Inital Vital Signs reviewed: Yes General: Well nourished, Well developed, Obese, No Acute Distress Head: Normocephalic, Atraumatic Eyes: Perrl, EOMI ENT: Moist mucous membranes, No rhinorrhea Neck: Supple, Nontender Cardiovascular: Regular rate, Regular rhythm, No murmurs, - - 2+ bilateral DP pulses. No pedal edema noted. Respiratory: Chest nontender, Wheezing, Diminished, - - Creased respiratory effort, conversational dyspnea, coarse and rhonchorous breath sounds throughout with inspiratory and expiratory wheezing present Abdomen: Soft, Nontender, Nondistended, Normal bowel sounds Back: Nontender, Normal Inspection Extremities: Nontender, No edema Skin: Normal color, No rash Neurological: Alert, Oriented x3, Cranial nerves II-XII grossly intact, Normal Strength, Normal Sensation Psychological: Normal affect, Normal Mood Diagnostic/Tx/Re-eval Chest X-Ray - ED: 1 View, Read by ED Physician, Read by Radiologist, No Acute Disease Clinical Impression(s) from Imaging Studies Chest X-Ray 09/27/20 16:20 IMPRESSION: Normal x-ray examination of the chest. Electronically Signed: Jose German MD at 16:36 EDT Tel , Service support , Laboratory Data 09/27/20 09/27/20 09/27/20 15:45 15:45 15:45 WBC 7.6 RBC 4.71 Hgb 13.3 Hct 41.0 MCV 87.0 MCH 28.2 MCHC 32.4 RDW Std Deviation 40.9 RDW Coeff of Aniceto 13.1 Plt Count 168 MPV 9.9 Immature Gran % (Auto) 0.400 Neut % (Auto) 56.8 Lymph % (Auto) 25.9 Mingo % (Auto) 6.9 Eos % (Auto) 9.2 H Baso % (Auto) 0.8 Absolute Neuts (auto) 4.3 Absolute Lymphs (auto) 1.98 Nucleated RBC % 0 D-Dimer Quant (PE/DVT) 0.55 H* Sodium 139 Potassium 4.3 Chloride 105 Carbon Dioxide 30.0 Anion Gap 4 L BUN 12 Creatinine 0.81 Estim Creat Clear Calc 50.41 Est GFR (MDRD) Af Amer 88 Est GFR (MDRD) Non-Af 73 BUN/Creatinine Ratio 14.7 Glucose 194 H Calcium 9.0 Troponin I < 0.015 B-Natriuretic Peptide 09/27/20 15:45 WBC RBC Hgb Hct MCV MCH MCHC RDW Std Deviation RDW Coeff of Aniceto Plt Count MPV Immature Gran % (Auto) Neut % (Auto) Lymph % (Auto) Mingo % (Auto) Eos % (Auto) Baso % (Auto) Absolute Neuts (auto) Absolute Lymphs (auto) Nucleated RBC % D-Dimer Quant (PE/DVT) Sodium Potassium Chloride Carbon Dioxide Anion Gap BUN Creatinine Estim Creat Clear Calc Est GFR (MDRD) Af Amer Est GFR (MDRD) Non-Af BUN/Creatinine Ratio Glucose Calcium Troponin I B-Natriuretic Peptide 69.1 - Rhythm Strip Rhythm Strip: Sinus Rhythm Rate: 77 Ectopy: None - EKG Initial EKG Interpretation: Sinus Rhythm, - - Sinus rhythm at a rate of 77PR interval 216Normal QRS and QTcLeft axis deviationNormal ST segmentsLow voltage QRS Prior: Changed - Slight left axis compared to prior EKG on 08/14/2020 Treatment - Dyspnea: Oxygen, Albuterol, Atrovent Repeat Evaluation: Improved - Medical Decision Making Patient evaluated for 3 to 4 days of worsening shortness of breath. Presentation is consistent with an acute asthma exacerbation. Patient has chronic respiratory disease. She is hypoxic in the ER requiring supplementary oxygen. She does have improvement with steroids and breathing treatments. Patient has 2 prior admissions this year alone for the same complaint. Chest x- rays not show any acute infiltrate. I do not suspect bacterial cause. Have a lower suspicion for viral infection as patient has had her Covid vaccine and is not having any fever or other viral symptoms. Patient's D-dimer is normal per age. I do not suspect PE. I do not think CT is indicated. Patient will be admitted for further respiratory treatment and management of her hypoxia. She is agreeable with this plan of care. ED Disposition - Plan for ED Patient: Disposition: Acute Care [facility] Diagnosis: Acute and chronic respiratory failure with hypoxia, Acute asthma exacerbation Referrals: Senait Jay MD [Primary Care Provider] -
[2020-09-27] MEDS: Ipratropium/Albuterol Sulfate 3 ML AMPUL.NEB INHALATION (15:30)
[2020-09-27] MEDS: Albuterol 2.5 MG/3 ML VIAL.NEB. INHALATION ×3 (15:30→16:10)
[2020-09-27] MEDS: MethylPREDNISolone 125 MG/2 ML Vial 60 MG IV (15:48)
[2020-09-27 15:52] LABS: Absolute Lymphocyte Count 1.98 X10^3/uL (0.83-4.51); Absolute Neutrophil Count 4.3 X10^3/uL (2.0-7.7); Basophil# 0.06 X10^3/uL; Basophil% 0.8 % (0-1); Eosinophils% 9.2 % (0-5); Hemoglobin 13.3 g/dL (12.0-15.0); Lymphocyte # 1.98 X10^3/ul (0.83-4.51); Lymphocyte % 25.9 % (19-41); Mean Corp Hgb Conc 32.4 g/dL (32-36); Mean Corpuscular Hgb 28.2 pg (27.0-32.0); Mean Platelet Vol. 9.9 fl (6.2-12.0); Monocyte# 0.53 X10^3/uL; Monocyte% 6.9 % (0-10); NRBC Flagged by Analyzer 0 % (0-5); Neutrophil # 4.34 X10^3/uL (2.7-7.7); Neutrophil % 56.8 % (47-70); Platelet Count 168 K/mm3 (150-450); RBC Distribution Width CV 13.1 % (11.6-14.6); RBC Distribution Width SD 40.9 fl (35.1-43.9); Red Blood Count 4.71 M/mm3 (4.2-5.4); White Blood Count 7.6 K/mm3 (4.4-11.0)
[2020-09-27 16:19] LABS: Anion Gap 4 (5-15); BNP,B-Type NATRIURETIC PEPTIDE 69.1 pg/mL (0-100); BUN 12 mg/dL (7-18); BUN/Creat Ratio 14.7 RATIO (10-20); Chloride 105 mmol/L (98-107); Creatinine, Serum 0.81 mg/dL (0.55-1.02); EST Glomerular Filtration Rate 73 mL/min (>60); Est Glom Filt Rate - Afr Amer 88 mL/min (>60); Estimated Creatinine Clearance 50.41 ml/min; Glucose 194 mg/dL (74-106); Potassium 4.3 mmol/L (3.5-5.1); Sodium Level 139 mmol/L (136-145)
--- NOTE | 2020-09-27 16:20 | RAD_ITS ---
STUDY: X-RAY CHEST REASON FOR EXAM: Female, 75 years old. sob TECHNIQUE: Single AP portable view of the chest. COMPARISON: 08/13/2020 FINDINGS: The lungs are clear and expanded. There is no demonstrated pleural abnormality. Normal size heart. Normal mediastinum and tanna. Normal visualized pulmonary arteries. Normal visualized aortic arch and descending thoracic aorta. There is a dextroscoliosis of the thoracic spine. Normal visualized ribs, clavicles, and shoulders. There is no demonstrated abnormality of the visualized soft tissue structures of the upper abdomen. RAD/Chest 1 View (Portable) IMPRESSION: Normal x-ray examination of the chest. Electronically Signed: Jose German MD at 16:36 EDT Tel , Service support ,
[2020-09-27 16:26] LABS: D-Dimer Quantitative (DVT/PE) 0.55 FEU/ug/m (0.27-0.49)
--- NOTE | 2020-09-27 17:31 | HP.PCM_ITS ---
History of Present Illness Date of Admission: 09/27/20 Chief Complaint: shortness of breath The patient is a 75 year old F with an extensive PMH as outlined who was admitted with a complaint of shortness of breath. She went to see her project management consultant, and was noted to be saturating at 83% on room air. She was then asked to come to the ED. She had a new furnace placed recently and she says there was a filter that blocked off allergens in her furnace system; however it hasn't been working. SHe had a cough which was nonproductive, and also admitted to worsening wheezing., but denied any fever or chills. REview of systems is otherwise negative. She had been using her breathing treatments at home, but was unsuccessful. Vitals in the ED were temperature of 97.9 with blood pressure 179/81, pulse rate of 73 respiratory rate of 24. She was saturating at 94% on 2 L of oxygen. Chemistry showed hemoglobin of 13.3 with WBC of 7.6. BMP showed sodium of 139 and creatinine of 0.8 with initial troponin being negative and BNP of 69.1. Chest x-ray showed no acute cardiopulmonary process. Of note, she was admitted just about a month ago with similar symptoms and was managed for acute asthma exacerbation. Patient has been compliant with using her CPAP at home but says she was taken off her home oxygen because she doesnt need it anymore. She has been admitted to be evaluated for acute asthma exacerbation acute hypoxic respiratory insufficiency due to asthma exacerbation. Past Medical History Past Medical History (Chronic Problems): Chronic Problems Allergic rhinitis (Chronic) Asthmatic bronchitis (Chronic) Chronic respiratory failure with hypoxia (Chronic) Breast cancer, right breast (Chronic) Vitamin D deficiency (Chronic) Hypertension (Chronic) Diabetes mellitus (Chronic) Body mass index (BMI) 50-59.9, adult (Chronic) Migraine headache (Chronic) Obstructive sleep apnea (Chronic) Osteoarthritis (Chronic) Asthma (Chronic) History of right breast cancer (Chronic) Sleep apnea (Chronic) Diabetes mellitus, type II (Chronic) Anxiety and depression (Chronic) Allergies adhesive tape Allergy (Verified 09/27/20 15:07) Unknown listed on pcp allergy list cefadroxil [From Duricef] Allergy (Verified 09/27/20 15:07) Unknown gluten Allergy (Verified 09/27/20 15:07) Other Celiac disease mesalamine [From Asacol] Allergy (Verified 09/27/20 15:07) Unknown listed on pcp allergy list omalizumab [From Xolair] Allergy (Verified 09/27/20 15:07) Unknown listed on pcp allergy list Sulfa (Sulfonamide Antibiotics) Allergy (Verified 09/27/20 15:07) Unknown oxycodone Adverse Reaction (Verified 09/27/20 15:07) Vomiting Home Medications: Ambulatory Orders Medication Instructions Recorded Cholecalciferol (Vitamin D3) 50,000 unit PO SUWE@0800 06/01/17 [Vitamin D3] Pramipexole Di-HCl [Mirapex] 0.5 mg PO QHS 06/01/17 Albuterol Aerosols [Ventolin 2.5 mg INHALATION Q2H PRN PRN #1 11/26/17 Aerosols] box Albuterol IH (ProAir) [Proair Hfa] 2 puff INHALATION Q6H PRN PRN 03/25/18 Budesonide [Rhinocort Allergy] 2 puff NARES DAILY 06/12/18 Carbamazepine 200 mg PO QHS 03/01/19 Methylphenidate HCl 20 mg PO BID 03/01/19 [Methylphenidate ER] Nadolol [Corgard (Beta Tiffanie)] 40 mg PO DAILY 03/01/19 Paroxetine HCl [Paxil] 40 mg PO DAILY 03/01/19 Loperamide [Imodium] 2 mg PO Q4H PRN PRN cap 10/08/19 Insulin U-500 *Concentrated* 85 units SQ DINNER 03/22/20 [Humulin R U-500 *Concentrated Insulin*] Levocetirizine Dihydrochloride 5 mg PO QHS 03/22/20 [Xyzal] Montelukast [Singulair] 10 mg PO DAILY 03/22/20 Nystatin Powder [Mycostatin Powder] 1 applic TOPICAL BID 03/22/20 Potassium Chloride Oral Tablet 10 meq PO DAILYCM 03/22/20 [K-Dur] Insulin U-500 *Concentrated* 95 units SQ BREAKFAST 08/12/20 [Humulin R U-500 *Concentrated Insulin*] Surgical History: noncontributory, hysterectomy, mastectomy - Right, lymph node dissection., - - Rectocele repair. 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 Maternal History Items: Cancer - Mother with a history of breast cancer eventually metastatic. Review of Systems Constitutional: Denies: Chills, Fever, Malaise, Weakness, Weight Change HEENT: Denies: Head Aches, Sinus Congestion, Sinus Drainage Cardiovascular: Denies: Chest Pain, Palpitations Respiratory: Reports: Cough, Shortness of Breath, Shortness of breath at rest, Shortness of breath upon exertion. Denies: Sputum production Gastrointestinal: Denies: Abdominal Pain, Nausea, Vomiting Genitourinary: Denies: Dysuria Musculoskeletal: Denies: Joint Pain, Joint Tenderness Skin: Denies: Rash, Wounds Neurological: Denies: Numbness, Tingling, Focal weakness Psychiatric: Denies: Anxiety, Depression, Homicidal Ideations, Suicidal Ideations Hematologic/ Lymphatic: Denies: Easy Bruising, Easy Bleeding VTE Information - Inpt Only VTE Present on Admission: No VTE Pharm Prophylaxis ordered?: Yes - Physical Exam Vitals/I&O's: Vital Signs Temp Pulse Resp BP Pulse Ox 97.9 F 73 24 H 179/81 H 94 09/27/20 15:05 09/27/20 17:00 09/27/20 17:00 09/27/20 17:00 09/27/20 17:00 Oxygen Flow Rate (L/min) 2 Oxygen Delivery Method Nasal Cannula Weight: 300 lb Body Mass Index (BMI) 53.1 Finger Stick Blood Glucose 154 General: Alert, Oriented x3, Cooperative, No apparent distress, - - super morbid obesity HEENT: Atraumatic, PERRLA, EOMI, Normocephalic Oral: Dry Mucosa Neck: Supple, No JVD, Negative Carotid Bruits Lungs: - - diminished breath sounds in all lung holcomb; has wheezing in all lung holcomb. No crackles. On 2L of oxygen by nasal canula Cardiovascular: Regular rate, Regular Rhythm, Normal S1, Normal S2, No murmurs Abdomen: Bowel Sounds Present, Soft, Non Tender, Non-Distended, No Hepato- splenomegaly, Obese Extremities: No clubbing, No cyanosis, No edema, Capillary Refill Less than 3 Seconds Skin: No rashes, No breakdown Musculoskeletal: No Tenderness to Palpation of Joints or Extremities Lymphatic: No Cervical, Supraclavicular, or Inguinal Adenopathy Neurological: Cranial nerves II-XII grossly intact, Neuro grossly intact, Motor Exam 5/5 strength throughout Psych/Mental Status: Normal Affect, Appropriate, Alert and oriented to time, place, person, mood and affect Laboratory Results 09/27/20 15:40: COVID-19 ([facility]) Pending 09/27/20 15:45: WBC 7.6, RBC 4.71, Hgb 13.3, Hct 41.0, MCV 87.0, MCH 28.2, MCHC 32.4, RDW Std Deviation 40.9, RDW Coeff of Aniceto 13.1, Plt Count 168, MPV 9.9, Immature Gran % (Auto) 0.400, Neut % (Auto) 56.8, Lymph % (Auto) 25.9, [place] % (Auto) 6.9, Eos % (Auto) 9.2 H, Baso % (Auto) 0.8, Absolute Neuts (auto) 4.3, Absolute Lymphs (auto) 1.98, Nucleated RBC % 0 09/27/20 15:45: D-Dimer Quant (PE/DVT) 0.55 H* 09/27/20 15:45: Sodium 139, Potassium 4.3, Chloride 105, Carbon Dioxide 30.0, A nion Gap 4 L, BUN 12, Creatinine 0.81, Estim Creat Clear Calc 50.41, Est GFR (MDRD) Af Amer 88, Est GFR (MDRD) Non-Af 73, BUN/Creatinine Ratio 14.7, Glucose 194 H, Calcium 9.0, Troponin I < 0.015 09/27/20 15:45: B-Natriuretic Peptide 69.1 Diagnostic Data Chest X-Ray 09/27/20 16:20 IMPRESSION: Normal x-ray examination of the chest. Electronically Signed: Jose German MD at 16:36 EDT Tel , Service support , Current Medications Sodium Chloride () 500 mls @ 999 mls/hr IV .Q31M ONE Last Admin: 09/27/20 15:48 Dose: 999 mls/hr Documented by: Assessment/Plan All Active Problems Acute and chronic respiratory failure with hypoxia (Acute) Asthma exacerbation (Acute) Suspected 2019-nCoV infection (Ruled-out) Lactic acidosis (Acute) Hypokalemia (Acute) Acute severe exacerbation of asthma (Resolved) Staphylococcal pneumonia (Ruled-out) Streptococcal pneumonia (Ruled-out) Acute and chronic respiratory failure with hypoxia (Ruled-out) Cellulitis of right breast (Ruled-out) Influenza (Ruled-out) Acute asthma exacerbation (Acute) 75 y/o admitted with a complaint of worsening shortness of breath #Acute hypoxic respiratory insufficiency due to acute asthma exacerbation * Admit to PCU. * Titrate oxygen to maintain saturation above 90%. IV Solu-Medrol 40 mg every 8 hours. Breathing treatments with bronchodilators. * Get sputum cultures. We will hold off on antibiotics for now due to no evidence of infection. * Covid test and respiratory panel pending. * D-dimer is 0.55 which age-adjusted is appropriate for age. #Acute asthma exacerbation: As above * * #Type 2 diabetes mellitus: On Humulin U5 185 units with dinner 95 units with breakfast. Insulin sliding scale. Accu-Cheks AC at bedtime. #Hypertension: On nadolol #Restless leg syndrome: On Mirapex #DORY: On BiPAP #History of allergic rhinitis: On Singulair #Anxiety and depression: On Paxil and carbamazepine. #Super morbid obesity: BMI is 53.1. This complicates acute care, expected re covery and prognosis DVT prophylaxis: lovenox Code status: full code * Patient counseled extensively about different types of CODE STATUS including full code, DNR CCA and DNR CCA. Patient elects to be full code. * Total [id number]-[id number] time 17 minutes. Inpatient E&M: 26753 Init Hosp L3 Procedures: 95515 Advncd Care Plan 30 Min
[2020-09-27] MEDS: 0.9% Normal Saline 1,000 ML 125 ML IV ×2 (19:04→19:17)
[2020-09-27 19:05] LABS: Bedside Glucose 247 mg/dL (70-110)
[2020-09-27] MEDS: Loratadine 10 MG Tablet PO (20:38)
[2020-09-27] MEDS: Pramipexole Di-HCl 0.5 MG Tablet PO (20:38)
[2020-09-27] MEDS: Nystatin Powder 15gm Bottle 1 APPLIC TOPICAL (20:38)
[2020-09-27] MEDS: carBAMazepine 200 MG Tablet PO (20:44)
[2020-09-27] MEDS: Insulin Lispro 100 UNIT/ML INSULN.PEN SC (20:49)
[2020-09-27] MEDS: Insulin U-500 UNITS/ML PEN 85 UNITS SC (20:50)
--- NOTE | 2020-09-27 23:50 | CPS ---
home cpap setup with 2 lpm oxygen bled in.
[2020-09-28] VITALS (14 sets, daily range): BP systolic 141–166; BP diastolic 50–73; PULSE 66–85; RESP 16–20; TEMP 36.8–37; O2SAT 93–95
[2020-09-28] MEDS: Ipratropium/Albuterol Sulfate 3 ML AMPUL.NEB INHALATION ×5 (03:24→23:34)
--- NOTE | 2020-09-28 03:26 | CPS ---
HOME CPAP IN USE WITH 2 LPM OXYGEN BLED IN.
[2020-09-28] MEDS: 0.9% Saline Lock 10 ML Syringe IV ×2 (05:30→14:02)
[2020-09-28 07:27] LABS: Absolute Lymphocyte Count 1.28 X10^3/uL (0.83-4.51); Absolute Neutrophil Count 6.5 X10^3/uL (2.0-7.7); Basophil# 0.03 X10^3/uL; Basophil% 0.4 % (0-1); Eosinophil# 0.02 X10^3/uL; Eosinophils% 0.2 % (0-5); Hematocrit 38.8 % (37-47); Hemoglobin 12.2 g/dL (12.0-15.0); Lymphocyte # 1.28 X10^3/ul (0.83-4.51); Lymphocyte % 15.3 % (19-41); Mean Corp Hgb Conc 31.4 g/dL (32-36); Mean Corpuscular Hgb 27.9 pg (27.0-32.0); Mean Corpuscular Volume 88.6 fL (81-99); Monocyte# 0.48 X10^3/uL; Monocyte% 5.7 % (0-10); NRBC Flagged by Analyzer 0 % (0-5); Neutrophil # 6.52 X10^3/uL (2.7-7.7); Neutrophil % 77.8 % (47-70); Platelet Count 155 K/mm3 (150-450); RBC Distribution Width CV 13.1 % (11.6-14.6); RBC Distribution Width SD 42.4 fl (35.1-43.9); Red Blood Count 4.38 M/mm3 (4.2-5.4); White Blood Count 8.4 K/mm3 (4.4-11.0)
[2020-09-28 08:01] LABS: Anion Gap 5 (5-15); BUN 12 mg/dL (7-18); BUN/Creat Ratio 16.4 RATIO (10-20); Calcium,Total 8.6 mg/dL (8.5-10.1); Chloride 106 mmol/L (98-107); Creatinine, Serum 0.73 mg/dL (0.55-1.02); EST Glomerular Filtration Rate 83 mL/min (>60); Est Glom Filt Rate - Afr Amer 100 mL/min (>60); Estimated Creatinine Clearance 40.83 ml/min; Glucose 263 mg/dL (74-106); Potassium 4.2 mmol/L (3.5-5.1); Sodium Level 138 mmol/L (136-145)
[2020-09-28] MEDS: Insulin Lispro 100 UNIT/ML INSULN.PEN SC ×4 (08:15→20:56)
[2020-09-28] MEDS: Potassium Chloride Oral Tablet 10 MEQ PO (08:15)
[2020-09-28] MEDS: Insulin U-500 UNITS/ML PEN 95 UNITS SC (08:16)
[2020-09-28 08:21] LABS: Bedside Glucose 239 mg/dL (70-110)
[2020-09-28] MEDS: Enoxaparin 40 MG/0.4 ML Syringe SC (09:34)
[2020-09-28] MEDS: Montelukast 10 MG Tablet PO (09:34)
[2020-09-28] MEDS: Paroxetine 20 MG Tablet 40 MG PO (09:34)
[2020-09-28] MEDS: Nadolol 40 MG Tablet PO (09:34)
[2020-09-28] MEDS: Fluticasone 0.05% 1 SPRAY NASAL.SRY 2 SPRAY NASAL (09:35)
[2020-09-28] MEDS: Nystatin Powder 15gm Bottle 1 APPLIC TOPICAL ×2 (09:36→20:53)
--- NOTE | 2020-09-28 10:26 | CT_ITS ---
STUDY: CTA CHEST REASON FOR EXAM: Female, 75 years old. dimer RADIATION DOSAGE (If Supplied By Facility): CTDIvol = ( 24.81 ) mGy, DLP = ( 687.28 ) mGycm TECHNIQUE: The examination was performed with the intravenous administration of IV 100mL Isovue-370. Post-processing of the angiographic images was performed, with multiplanar reformation and 3D reconstruction. Individualized dose optimization techniques were used for this CT. COMPARISON: Chest x-ray 09/27/2020 FINDINGS: Status post right mastectomy and axillary lymph node dissection. Normal enhancement of the main pulmonary artery and right and left pulmonary arteries. Normal enhancement of the bilateral peripheral pulmonary arteries. There is no demonstrated pulmonary embolism. Normal thoracic aorta and visualized great vessels. There is no demonstrated aortic dissection. Normal heart and pericardium. Normal mediastinum. Normal hilar regions. Normal visualized trachea and bronchi. The lungs are well expanded. 2 cm noncalcified nodule in the anterior superior segment the right lower lobe the lungs on image 131 worrisome for bronchogenic carcinoma in correlation with PET CT scan is recommended. Some dependent bibasilar atelectasis. Normal pleura. Normal chest wall structures. Normal osseous structures. Irregular contour of the liver suggestive of cirrhosis. CT/CTA Chest W/WO Contrast IMPRESSION: 1. No CT evidence of pulmonary embolism. 2. 2 cm noncalcified nodule in the superior segment the right lower lobe worrisome for bronchogenic carcinoma in correlation with PET CT scan is recommended. Electronically Signed: Jose German MD at 12:15 EDT Tel , Service support ,
--- NOTE | 2020-09-28 10:30 | PN_ITS ---
Patient Problems: Active and Suspected Problems Acute and chronic respiratory failure with hypoxia (Acute) Acute asthma exacerbation (Acute) Reason for Visit: Hypoxic respiratory insufficiency Acute asthma exacerbation Subjective: Patient is a 75-year-old lady with underlying history of mild persistent asthma presented with progressive shortness of breath with significant wheezing. An assessment of asthma with acute exacerbation made admitted to a monitored bed for further management Objective: GENERAL: Dyspneic at rest HEENT: Atraumatic; EYES; Anicteric, Normal Conjunctiva NECK; supple, normal thyroid, RESPIRATORY: Diminished to auscultation bilateral wheezes CARDIOVASCULAR: Regular S1 S2, GI: soft, normoactive bowel sounds, : No Renal angle tenderness; EXTREMITIES: No edema, no clubbing, MUSCULOSKELETAL: no muscle waisting NEURO: Awake; no lateralizing signs. SKIN: No Rash PSYCH; Flat affect Vitals/I&O's: Vital Signs Temp Pulse Resp BP Pulse Ox 98.6 F 77 18 141/73 H 94 09/28/20 09:15 09/28/20 09:15 09/28/20 09:15 09/28/20 09:15 09/28/20 09:15 Oxygen Flow Rate (L/min) 2 Oxygen Delivery Method CPAP Weight: 143.925 kg Body Mass Index (BMI) 56.2 Finger Stick Blood Glucose 154 Intake and Output for Last 24 Hours 09/26/20 09/27/20 09/28/20 23:59 23:59 23:59 Intake Total 527.08 / 827.08 1700 / 1700 Output Total 800 / 800 Balance 527.08 / 827.08 900 / 900 Microbiology Past 72 Hours 09/27/20 15:40 Mucosa - Nose Respiratory Panel (PCR) - Final Laboratory Results 09/27/20 15:40: COVID-19 ([facility]) Not Detected 09/27/20 15:45: WBC 7.6, RBC 4.71, Hgb 13.3, Hct 41.0, MCV 87.0, MCH 28.2, MCHC 32.4, RDW Std Deviation 40.9, RDW Coeff of Aniceto 13.1, Plt Count 168, MPV 9.9, Immature Gran % (Auto) 0.400, Neut % (Auto) 56.8, Lymph % (Auto) 25.9, [place] % (Auto) 6.9, Eos % (Auto) 9.2 H, Baso % (Auto) 0.8, Absolute Neuts (auto) 4.3, Absolute Lymphs (auto) 1.98, Nucleated RBC % 0 09/27/20 15:45: D-Dimer Quant (PE/DVT) 0.55 H* 09/27/20 15:45: Sodium 139, Potassium 4.3, Chloride 105, Carbon Dioxide 30.0, Anion Gap 4 L, BUN 12, Creatinine 0.81, Estim Creat Clear Calc 50.41, Est GFR (MDRD) Af Amer 88, Est GFR (MDRD) Non-Af 73, BUN/Creatinine Ratio 14.7, Glucose 194 H, Calcium 9.0, Troponin I < 0.015 09/27/20 15:45: B-Natriuretic Peptide 69.1 09/27/20 19:00: POC Glucose 247 H 09/27/20 19:53: Troponin I < 0.015 09/27/20 22:08: Troponin I < 0.015 09/28/20 07:10: WBC 8.4, RBC 4.38, Hgb 12.2, Hct 38.8, MCV 88.6, MCH 27.9, MCHC 31.4 L, RDW Std Deviation 42.4, RDW Coeff of Aniceto 13.1, Plt Count 155, MPV 10.0, Immature Gran % (Auto) 0.600, Neut % (Auto) 77.8 H, Lymph % (Auto) 15.3 L, [place] % (Auto) 5.7, Eos % (Auto) 0.2, Baso % (Auto) 0.4, Absolute Neuts (auto) 6.5, Absolute Lymphs (auto) 1.28, Nucleated RBC % 0 09/28/20 07:10: Sodium 138, Potassium 4.2, Chloride 106, Carbon Dioxide 27.0, Anion Gap 5, BUN 12, Creatinine 0.73, Estim Creat Clear Calc 40.83, Est GFR (MDRD) Af Amer 100, Est GFR (MDRD) Non-Af 83, BUN/Creatinine Ratio 16.4, Glucose 263 H, Calcium 8.6 09/28/20 08:12: POC Glucose 239 H Current Medications Acetaminophen (Acetaminophen 325 Mg Tablet) 650 mg PO Q6H PRN PRN PRN Reason: Pain Score 1-10/Temp > 100.7 F Albuterol/Ipratropium (Ipratropium/Albuterol Sulfate 3 Ml Ampul.Neb) 3 ml INHALATION Q4HWA.RT [facility] Last Admin: 09/28/20 07:02 Dose: 3 ml Documented by: Carbamazepine (Carbamazepine 200 Mg Tablet) 200 mg PO QHS [facility] Last Admin: 09/27/20 20:44 Dose: 200 mg Documented by: Enoxaparin Sodium (Enoxaparin 40 Mg/0.4 Ml Syringe) 40 mg SC DAILY [facility] Last Admin: 09/28/20 09:34 Dose: 40 mg Documented by: Ergocalciferol (Ergocalciferol 50,000 Unit Capsule) 50,000 unit PO SUWE@0800 [facility] Fluticasone Propionate (Fluticasone 0.05% 1 [place] Nasal.Sry) 2 spray NASAL DAILY [facility] Last Admin: 09/28/20 09:35 Dose: 2 spray Documented by: Guaifenesin (Guaifenesin 10 Ml Udc (200mg/10ml)) 20 ml PO Q4H PRN PRN PRN Reason: COUGH Sodium Chloride () 500 mls @ 999 mls/hr IV .Q31M ONE Last Infusion: 09/27/20 17:48 Dose: Infused Documented by: Sodium Chloride () 500 mls @ 15 mls/hr IV PRN PRN PRN Reason: Blood Transfusion Sodium Chloride () 250 mls @ 15 mls/hr IV .[id number] PRN PRN Reason: Saline Flush Sodium Chloride () 250 mls @ 15 mls/hr IV .[id number] PRN PRN Reason: Additional IVPB Infusion Insulin Human Lispro (Insulin Lispro 100 Unit/Ml Insuln.Pen) 0 unit SC ACHS [facility]; Protocol Last Admin: 09/28/20 08:15 Dose: 4 units Documented by: Insulin Human Regular (Insulin U-500 Units/Ml Pen) 95 units SC BREAKFAST [facility] Last Admin: 09/28/20 08:16 Dose: 9 u Documented by: Insulin Human Regular (Insulin U-500 Units/Ml Pen) 85 units SC DINNER [facility] Last Admin: 09/27/20 20:50 Dose: 85 units Documented by: Iopamidol (Contrast Allergy Safety Check) 0 ml IV X1 [facility] Loperamide HCl (Loperamide 2 Mg Capsule) 2 mg PO Q4H PRN PRN PRN Reason: DIARRHEA/LOOSE STOOLS Loratadine (Loratadine 10 Mg Tablet) 10 mg PO QHS [facility] Last Admin: 09/27/20 20:38 Dose: 10 mg Documented by: Methylprednisolone (Methylprednisolone 40 Mg/Ml Vial) 40 mg IV Q8 [facility] Last Admin: 09/28/20 05:30 Dose: 40 mg Documented by: Montelukast Sodium (Montelukast 10 Mg Tablet) 10 mg PO DAILY [facility] Last Admin: 09/28/20 09:34 Dose: 10 mg Documented by: Nadolol (Nadolol 40 Mg Tablet) 40 mg PO DAILY [facility] Last Admin: 09/28/20 09:34 Dose: 40 mg Documented by: Nitroglycerin (Nitroglycerin (Inpatient Use) 0.4 Mg Tab.Subl) 0.4 mg SL Q5M PRN PRN Reason: CARDIAC/CHEST PAIN Nystatin (Nystatin Powder 15gm Bottle) 1 applic TOPICAL BID [facility]; Protocol Last Admin: 09/28/20 09:36 Dose: 1 applic Documented by: Ondansetron HCl (Ondansetron 4 Mg/2 Ml Vial) 4 mg IV Q8H PRN PRN PRN Reason: NAUSEA/VOMITING Paroxetine HCl (Paroxetine 20 Mg Tablet) 40 mg PO DAILY [facility] Last Admin: 09/28/20 09:34 Dose: 40 mg Documented by: Potassium Chloride (Potassium Chloride Oral Tablet 10 Meq) [facility] Admin: 09/28/20 08:15 Dose: 10 meq Documented by: Pramipexole Dihydrochloride (Pramipexole Di-Hcl 0.5 Mg Tablet) 0.5 mg PO QHS [facility] Last Admin: 09/27/20 20:38 Dose: 0.5 mg Documented by: Sodium Chloride (0.9% Saline Lock 10 Ml Syringe) 10 - 40 ml IV UD PRN PRN Reason: SALINE FLUSH Last Admin: 09/28/20 05:30 Dose: 10 ml Documented by: STROKE Vital Signs/Narrative: Vital Signs Temp Pulse Resp BP Pulse Ox 09/28/20 09:15 98.6 F 77 18 141/73 H 94 Medical Necessity - Tobacco Use Smoking Status: Former smoker Assessment/Plan All Active Problems Acute and chronic respiratory failure with hypoxia (Acute) Asthma exacerbation (Acute) Suspected 2019-nCoV infection (Ruled-out) Lactic acidosis (Acute) Hypokalemia (Acute) Acute severe exacerbation of asthma (Resolved) Staphylococcal pneumonia (Ruled-out) Streptococcal pneumonia (Ruled-out) Acute and chronic respiratory failure with hypoxia (Ruled-out) Cellulitis of right breast (Ruled-out) Influenza (Ruled-out) Acute asthma exacerbation (Acute) Patient is a 75-year-old lady with underlying history of mild persistent asthma presented with progressive shortness of breath with significant wheezing. An assessment of asthma with acute exacerbation made admitted to a monitored bed for further management 1. Acute hypoxic respiratory sufficiency secondary to acute asthma exacerbation. ?Admitted to the progressive care unit patient started on steroid as well as bronchodilator treatment. Her Covid and viral respiratory obtained on admission came back negative. Patient remains significantly dyspneic at rest consult was placed to her devops engineer Dr. Watters. Patient was also found to have slig htly elevated D-dimer CTA of the chest ordered for subsequent evaluation 2. Hypertension - Blood pressure controlled, home medications continued with dose adjustment as needed 3. Diabetes mellitus type II -patient's oral hypoglycemics held. Patient glucose remains elevated in view of concomitant use of steroid placed on long acting insulin, Accu-Cheks a.c. and at bedtime and covered with sliding scale insulin 4. History of right breast CA -status post lumpectomy with subsequent adjuvant chemo and radiation therapy patient has remained in remission for over 10 years 5. Morbid obesity - With a BMI of 56 patient was counseled on weight reduction 6. Allergic rhinitis ?On singular did consult 7. Obstructive sleep apnea -patient is on CPAP at night 8. Depression with anxiety -Is on Paxil did continue 9. DVT prophylaxis - On enoxaparin Inpatient E&M: [id number] [facility] Hosp L3
[2020-09-28 11:30] LABS: Bedside Glucose 274 mg/dL (70-110)
--- NOTE | 2020-09-28 12:42 | NURSING ---
RN CM Assessment Introduced role of RN CM to patient.? Patient is alert, oriented and able?to participate in RN CM Assessment, sitting up on side of bed. ?Care providers, pharmacy, and demographics verified. Admit Dx: Acute Asthma Exacerbation, Acute hypoxic respiratory insufficiency Re-Admit: No. Patient was admitted 06/20-06/23/20 and 08/12-08/16/20 both for Asthma Exacerbation. Barriers/Issues: Patient had home oxygen with [facility] but states that they took it back approx 1-2 weeks ago because she no longer qualified. States she needs her oxygen. Confirmed she did f/u with her [employer]ig[employer] Stitcher Dr Watters in August. Confirmed has all her medication and necessary treatment for the asthma. PCP: Misty Specialists: Pulm- Janene, ENT- Elsie Preferred Pharmacy: [facility] Insurance: Maria Esther Gallo Rx Benefit:?Yes LNOK: and dtr LW/HPOA: Dtr- [place] Living Arrangements: Lives with in a 2SH, 4-5 stairs to enter home with rails. Just had a stair lift installed.? ADL?s: Independent, Has a walker but states needs a cane. Transportation: Both patient and drive. Patient drove self to hospital and plans on driving self home. DME: Stair lift, shower chair, RTS, grab bars, walker, Nebulizer. HHC: Past with [facility] Goal: Home and feels like she needs home oxygen, otherwise denies any issues, concerns or needs with going home. DC PLAN: Home with possible Home Oxygen- Preference [employer] (In net work DME list provided). ASHLEIGH [place]
[2020-09-28] MEDS: Insulin U-500 UNITS/ML PEN 85 UNITS SC (16:58)
[2020-09-28 17:11] LABS: Bedside Glucose 289 mg/dL (70-110)
[2020-09-28] MEDS: Loratadine 10 MG Tablet PO (20:52)
[2020-09-28] MEDS: Pramipexole Di-HCl 0.5 MG Tablet PO (20:52)
[2020-09-28] MEDS: carBAMazepine 200 MG Tablet PO (20:52)
[2020-09-28 21:06] LABS: Bedside Glucose 316 mg/dL (70-110)
[2020-09-29] VITALS (12 sets, daily range): BP systolic 148–156; BP diastolic 54–87; PULSE 61–85; RESP 16–20; TEMP 36.4–37.2; O2SAT 93–97
[2020-09-29] MEDS: guaiFENesin 10 ML UDC (200MG/10ML) 20 ML PO (02:41)
[2020-09-29 05:50] LABS: Hematocrit 39.7 % (37-47); Hemoglobin 12.6 g/dL (12.0-15.0); Mean Corp Hgb Conc 31.7 g/dL (32-36); Mean Corpuscular Hgb 28.1 pg (27.0-32.0); Mean Corpuscular Volume 88.6 fL (81-99); Mean Platelet Vol. 10.6 fl (6.2-12.0); Platelet Count 177 K/mm3 (150-450); RBC Distribution Width CV 12.9 % (11.6-14.6); Red Blood Count 4.48 M/mm3 (4.2-5.4); White Blood Count 11.2 K/mm3 (4.4-11.0)
[2020-09-29 06:07] LABS: Anion Gap 4 (5-15); BUN 18 mg/dL (7-18); BUN/Creat Ratio 23.7 RATIO (10-20); Calcium,Total 8.8 mg/dL (8.5-10.1); Chloride 103 mmol/L (98-107); Creatinine, Serum 0.76 mg/dL (0.55-1.02); EST Glomerular Filtration Rate 79 mL/min (>60); Est Glom Filt Rate - Afr Amer 96 mL/min (>60); Estimated Creatinine Clearance 40.83 ml/min; Glucose 245 mg/dL (74-106); Magnesium 2.1 mg/dL (1.6-2.6); Potassium 4.8 mmol/L (3.5-5.1); Sodium Level 136 mmol/L (136-145)
[2020-09-29] MEDS: Ipratropium/Albuterol Sulfate 3 ML AMPUL.NEB INHALATION ×4 (07:31→19:36)
[2020-09-29] MEDS: Insulin Lispro 100 UNIT/ML INSULN.PEN SC ×4 (07:56→21:06)
[2020-09-29] MEDS: Insulin U-500 UNITS/ML PEN 95 UNITS SC (07:57)
[2020-09-29] MEDS: Potassium Chloride Oral Tablet 10 MEQ PO (08:01)
[2020-09-29] MEDS: Nadolol 40 MG Tablet PO (08:01)
[2020-09-29] MEDS: Montelukast 10 MG Tablet PO (08:02)
[2020-09-29] MEDS: Paroxetine 20 MG Tablet 40 MG PO (08:02)
[2020-09-29] MEDS: Fluticasone 0.05% 1 SPRAY NASAL.SRY 2 SPRAY NASAL (08:03)
[2020-09-29] MEDS: Nystatin Powder 15gm Bottle 1 APPLIC TOPICAL ×2 (08:03→20:59)
[2020-09-29] MEDS: Enoxaparin 40 MG/0.4 ML Syringe SC (08:04)
[2020-09-29 09:46] LABS: Bedside Glucose 213 mg/dL (70-110)
--- NOTE | 2020-09-29 11:27 | CON.PCM_ITS ---
Reason for Consult Date of Consultation: 09/29/20 History of Present Illness: The patient is a 75 year old F With known severe asthma with recurrent exacerbations who presents with severe flareup over the last 3 to 4 days. The patient admits to no URI symptoms, no chest pain. She describes yellow and sometimes dark and brown sputum production which is a change for her. The patient admits to fatigue loss of energy, diminished appetite. She had difficulty completing sentences on presentation at the office 48 hours ago. She currently is describing some improvement on IV Solu-Medrol and is able to complete sentences and is not as tachypneic and there is no accessory muscles while speaking. She denies any fevers or chills. The patient did have an elevated D-dimer and a subsequent CT scan showing a rounded airspace nodule in the right mid chest also present is bronchiectasis thickened bronchial's and a pleural-based parenchymal scar versus airspace disease in the right as well. I am asked to evaluate the patient in this context.[] Past Medical History Past Medical History (Chronic Problems): Chronic Problems Allergic rhinitis (Chronic) Asthmatic bronchitis (Chronic) Chronic respiratory failure with hypoxia (Chronic) Breast cancer, right breast (Chronic) Vitamin D deficiency (Chronic) Hypertension (Chronic) Diabetes mellitus (Chronic) Body mass index (BMI) 50-59.9, adult (Chronic) Migraine headache (Chronic) Obstructive sleep apnea (Chronic) Osteoarthritis (Chronic) Asthma (Chronic) History of right breast cancer (Chronic) Sleep apnea (Chronic) Diabetes mellitus, type II (Chronic) Anxiety and depression (Chronic) Allergies adhesive tape Allergy (Verified 09/27/20 15:07) Unknown listed on pcp allergy list cefadroxil [From Duricef] Allergy (Verified 09/27/20 15:07) Unknown gluten Allergy (Verified 09/27/20 15:07) Other Celiac disease mesalamine [From Asacol] Allergy (Verified 09/27/20 15:07) Unknown listed on pcp allergy list omalizumab [From Xolair] Allergy (Verified 09/27/20 15:07) Unknown listed on pcp allergy list Sulfa (Sulfonamide Antibiotics) Allergy (Verified 09/27/20 15:07) Unknown oxycodone Adverse Reaction (Verified 09/27/20 15:07) Vomiting Home Medications: Ambulatory Orders Medication Instructions Recorded Cholecalciferol (Vitamin D3) 50,000 unit PO SUWE@0800 06/01/17 [Vitamin D3] Pramipexole Di-HCl [Mirapex] 0.5 mg PO QHS 06/01/17 Albuterol Aerosols [Ventolin 2.5 mg INHALATION Q2H PRN PRN #1 11/26/17 Aerosols] box Albuterol IH (ProAir) [Proair Hfa] 2 puff INHALATION Q6H PRN PRN 03/25/18 Budesonide [Rhinocort Allergy] 2 puff NARES DAILY 06/12/18 Carbamazepine 200 mg PO QHS 03/01/19 Methylphenidate HCl 20 mg PO BID 03/01/19 [Methylphenidate ER] Nadolol [Corgard (Beta Tiffanie)] 40 mg PO DAILY 03/01/19 Paroxetine HCl [Paxil] 40 mg PO DAILY 03/01/19 Loperamide [Imodium] 2 mg PO Q4H PRN PRN cap 10/08/19 Insulin U-500 *Concentrated* 85 units SQ DINNER 03/22/20 [Humulin R U-500 *Concentrated Insulin*] Levocetirizine Dihydrochloride 5 mg PO QHS 03/22/20 [Xyzal] Montelukast [Singulair] 10 mg PO DAILY 03/22/20 Nystatin Powder [Mycostatin Powder] 1 applic TOPICAL BID 03/22/20 Potassium Chloride Oral Tablet 10 meq PO DAILYCM 03/22/20 [K-Dur] Insulin U-500 *Concentrated* 95 units SQ BREAKFAST 08/12/20 [Humulin R U-500 *Concentrated Insulin*] Surgical History: noncontributory, hysterectomy, mastectomy - Right, lymph node dissection., - - Rectocele repair. 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 Maternal History Items: Cancer - Mother with a history of breast cancer eventually metastatic. Review of Systems Constitutional: Denies: Chills, Fever, Weight Change HEENT: Denies: Head Aches, Sinus Congestion, Sinus Drainage Cardiovascular: Denies: Chest Pain, Palpitations Respiratory: Denies: Cough, Shortness of breath at rest, Sputum production Gastrointestinal: Denies: Abdominal Pain, Nausea, Vomiting Genitourinary: Denies: Dysuria Musculoskeletal: Denies: Joint Pain, Joint Tenderness Skin: Denies: Rash, Wounds Neurological: Denies: Numbness, Tingling, Focal weakness Psychiatric: Denies: Anxiety, Depression, Homicidal Ideations, Suicidal Ideations Endocrine: Reports: - - Last diagnosis of breast CA was 2 and half years ago, status post mastectomy. The patient indicates that 8 years prior she also had breast carcinoma. Hematologic/ Lymphatic: Denies: Easy Bruising, Easy Bleeding Patient Problems: Active and Suspected Problems Acute and chronic respiratory failure with hypoxia (Acute) Acute asthma exacerbation (Acute) - Physical Exam Vitals/I&O's: Vital Signs Temp Pulse Resp BP Pulse Ox 98.4 F 82 16 156/79 H 95 09/29/20 08:30 09/29/20 10:50 09/29/20 10:50 09/29/20 08:30 09/29/20 08:30 Oxygen Flow Rate (L/min) 2 Oxygen Delivery Method Nasal Cannula Weight: 143.925 kg Body Mass Index (BMI) 56.2 Finger Stick Blood Glucose 154 Intake and Output for Last 24 Hours 09/27/20 09/28/20 09/29/20 23:59 23:59 23:59 Intake Total 527.08 / 827.08 2500 / 2500 Output Total 1999 1450 / 1450 Balance 527.08 / 827.08 500 / 500 -1450 / -1450 General: Alert, Oriented x3, Cooperative, - - No accessory muscle use HEENT: Atraumatic, PERRLA, EOMI, Normocephalic Neck: Supple, No JVD, Negative Carotid Bruits Lungs: - - Diminished breath sounds, cough, coarse rhonchorous sounds throughout, I to E ratio 1.5, expiratory wheeze throughout, no accessory muscle use today, slight increase in air entry from 48 hours ago. Cardiovascular: Regular rate, No murmurs Abdomen: Bowel Sounds Present, Soft, Non Tender Extremities: Capillary Refill Less than 3 Seconds, - - 2+ pitting edema lower extremities, venous stasis changes Skin: No rashes, No breakdown Musculoskeletal: No Tenderness to Palpation of Joints or Extremities, No Muscle Wasting Lymphatic: No Cervical, Supraclavicular, or Inguinal Adenopathy Neurological: Cranial nerves II-XII grossly intact Psych/Mental Status: Normal Affect, Appropriate Microbiology Past 72 Hours 09/27/20 15:40 Mucosa - Nose Respiratory Panel (PCR) - Final Laboratory Results 09/28/20 11:19: POC Glucose 274 H 09/28/20 16:50: POC Glucose 289 H 09/28/20 20:54: POC Glucose 316 H 09/29/20 05:20: WBC 11.2 H, RBC 4.48, Hgb 12.6, Hct 39.7, MCV 88.6, MCH 28.1, MCHC 31.7 L, RDW Std Deviation 42.0, RDW Coeff of Aniceto 12.9, Plt Count 177, MPV 10.6 09/29/20 05:20: Sodium 136, Potassium 4.8, Chloride 103, Carbon Dioxide 29.0, Anion Gap 4 L, BUN 18, Creatinine 0.76, Estim Creat Clear Calc 40.83, Est GFR (MDRD) Af Amer 96, Est GFR (MDRD) Non-Af 79, BUN/Creatinine Ratio 23.7 H, Glucose 245 H, Calcium 8.8, Magnesium 2.1 09/29/20 07:53: POC Glucose 213 H Current Medications Acetaminophen (Acetaminophen 325 Mg Tablet) 650 mg PO Q6H PRN PRN PRN Reason: Pain Score 1-10/Temp > 100.7 F Albuterol/Ipratropium (Ipratropium/Albuterol Sulfate 3 Ml Ampul.Neb) 3 ml INHALATION Q4HWA.RT [facility] Last Admin: 09/29/20 10:50 Dose: 3 ml Documented by: Amoxicillin/Clavulanate Potassium (Amox/Clavulanate 875 Mg Tablet) 875 mg PO BID [facility] Stop: 10/09/20 22:01 Carbamazepine (Carbamazepine 200 Mg Tablet) 200 mg PO QHS [facility] Last Admin: 09/28/20 20:52 Dose: 200 mg Documented by: Enoxaparin Sodium (Enoxaparin 40 Mg/0.4 Ml Syringe) 40 mg SC DAILY [facility] Last Admin: 09/29/20 08:04 Dose: 40 mg Documented by: Ergocalciferol (Ergocalciferol 50,000 Unit Capsule) 50,000 unit PO SUWE@0800 [facility] Last Admin: 09/29/20 08:02 Dose: 50,000 unit Documented by: Fluticasone Propionate (Fluticasone 0.05% 1 [place] Nasal.Sry) 2 spray NASAL DAILY [facility] Last Admin: 09/29/20 08:03 Dose: 2 spray Documented by: Guaifenesin (Guaifenesin 10 Ml Udc (200mg/10ml)) 20 ml PO Q4H PRN PRN PRN Reason: COUGH Last Admin: 09/29/20 02:41 Dose: 20 ml Documented by: Sodium Chloride () 500 mls @ 999 mls/hr IV .Q31M ONE Last Infusion: 09/27/20 17:48 Dose: Infused Documented by: Sodium Chloride () 500 mls @ 15 mls/hr IV PRN PRN PRN Reason: Blood Transfusion Sodium Chloride () 250 mls @ 15 mls/hr IV .[id number] PRN PRN Reason: Saline Flush Sodium Chloride () 250 mls @ 15 mls/hr IV .[id number] PRN PRN Reason: Additional IVPB Infusion Insulin Human Lispro (Insulin Lispro 100 Unit/Ml Insuln.Pen) 0 unit SC [facility]; Protocol Last Admin: 09/29/20 07:56 Dose: 4 units Documented by: Insulin Human Lispro (Insulin Lispro 100 Unit/Ml Insuln.Pen) 20 unit SC TIDAC [facility] Insulin Human Regular (Insulin U-500 Units/Ml Pen) 100 units SC DINNER [facility] Insulin Human Regular (Insulin U-500 Units/Ml Pen) 100 units SC BREAKFAST [facility] Loperamide HCl (Loperamide 2 Mg Capsule) 2 mg PO Q4H PRN PRN PRN Reason: DIARRHEA/LOOSE STOOLS Loratadine (Loratadine 10 Mg Tablet) 10 mg PO QHS [facility] Last Admin: 09/28/20 20:52 Dose: 10 mg Documented by: Methylprednisolone (Methylprednisolone 40 Mg/Ml Vial) 40 mg IV Q8 [facility] Last Admin: 09/29/20 05:15 Dose: 40 mg Documented by: Montelukast Sodium (Montelukast 10 Mg Tablet) 10 mg PO DAILY [facility] Last Admin: 09/29/20 08:02 Dose: 10 mg Documented by: Nadolol (Nadolol 40 Mg Tablet) 40 mg PO DAILY [facility] Last Admin: 09/29/20 08:01 Dose: 40 mg Documented by: Nitroglycerin (Nitroglycerin (Inpatient Use) 0.4 Mg Tab.Subl) 0.4 mg SL Q5M PRN PRN Reason: CARDIAC/CHEST PAIN Nystatin (Nystatin Powder 15gm Bottle) 1 applic TOPICAL BID [facility]; Protocol Last Admin: 09/29/20 08:03 Dose: 1 applic Documented by: Ondansetron HCl (Ondansetron 4 Mg/2 Ml Vial) 4 mg IV Q8H PRN PRN PRN Reason: NAUSEA/VOMITING Paroxetine HCl (Paroxetine 20 Mg Tablet) 40 mg PO DAILY [facility] Last Admin: 09/29/20 08:02 Dose: 40 mg Documented by: Potassium Chloride (Potassium Chloride Oral Tablet 10 Meq) 10 meq PO DAILYCM [facility] Last Admin: 09/29/20 08:01 Dose: 10 meq Documented by: Pramipexole Dihydrochloride (Pramipexole Di-Hcl 0.5 Mg Tablet) 0.5 mg PO QHS [facility] Last Admin: 09/28/20 20:52 Dose: 0.5 mg Documented by: Sodium Chloride (0.9% Saline Lock 10 Ml Syringe) 10 - 40 ml IV UD PRN PRN Reason: SALINE FLUSH Last Admin: 09/28/20 14:02 Dose: 10 ml Documented by: Assessment/Plan All Active Problems Acute and chronic respiratory failure with hypoxia (Acute) Asthma exacerbation (Acute) Suspected 2019-nCoV infection (Ruled-out) Lactic acidosis (Acute) Hypokalemia (Acute) Acute severe exacerbation of asthma (Resolved) Staphylococcal pneumonia (Ruled-out) Streptococcal pneumonia (Ruled-out) Acute and chronic respiratory failure with hypoxia (Ruled-out) Cellulitis of right breast (Ruled-out) Influenza (Ruled-out) Acute asthma exacerbation (Acute) Status asthmaticus with severe exacerbation requiring hospitalization. On presentation the patient saturation was 83%. She currently is using supplemental O2 and has adequate saturations. I agree with Solu-Medrol 40 every 8 but I would not wean this dose. On discharge 40 mg a day until follow-up with me orally CT scan is reviewed in its entirety image by image showing bronchiectatic right lower lobe segments with bronchial thickening a basilar infiltrate but also a nodule or airspace density noncalcified right mid lung which could represent either early pneumonia-round pneumonia or malignancy, benign lesions inflammatory lesions are still in the differential, less likely fungal disease. I recommend adding Augmentin 875 1 p.o. twice daily with at least a 10-day course Maintain the patient saturations above 90% with supplemental O2, the patient may need supplemental O2 on discharge Please note this patient is not very ambulatory and is quite limited in her capabilities at home. Consider PA and lateral chest on discharge tomorrow or the following day to see if there is advancement of the lesion in the right chest As for the nodule in the chest the plan to follow-up in 4 to 6 weeks and possible biopsy if the lesion is present
[2020-09-29 11:41] LABS: Bedside Glucose 266 mg/dL (70-110)
--- NOTE | 2020-09-29 11:55 | PN_ITS ---
<Jenna Cabrera VOICE OVER ANNOUNCER - Last Filed: 09/29/20 12:07> Patient Problems: Active and Suspected Problems Acute and chronic respiratory failure with hypoxia (Acute) Acute asthma exacerbation (Acute) Subjective: Patient seen and examined. Reports productive cough with yellow/green sputum. Reports she still feels generally unwell. Denies worsening shortness of breath. - Physical Exam Vitals/I&O's: Vital Signs Temp Pulse Resp BP Pulse Ox 98.4 F 82 16 156/79 H 95 09/29/20 08:30 09/29/20 10:50 09/29/20 10:50 09/29/20 08:30 09/29/20 08:30 Oxygen Flow Rate (L/min) 2 Oxygen Delivery Method Nasal Cannula Weight: 317 lb 4.805 oz Body Mass Index (BMI) 56.2 Finger Stick Blood Glucose 154 Intake and Output for Last 24 Hours 09/27/20 09/28/20 09/29/20 23:59 23:59 23:59 Intake Total 527.08 / 827.08 2500 / 2500 Output Total 1999 1450 / 1450 Balance 527.08 / 827.08 500 / 500 -1450 / -1450 General: Alert, Oriented x3, Cooperative HEENT: Atraumatic, PERRLA, EOMI, Normocephalic Neck: Supple, No JVD, Negative Carotid Bruits Lungs: Diminished, Rhonchi, Wheezes Cardiovascular: Regular rate, No murmurs Abdomen: Bowel Sounds Present, Soft, Non Tender, Non-Distended, Obese Extremities: No clubbing, No cyanosis, Edema - Lower extremities Skin: No rashes, No breakdown Musculoskeletal: No Tenderness to Palpation of Joints or Extremities Neurological: Cranial nerves II-XII grossly intact, Neuro grossly intact Psych/Mental Status: Normal Affect, Appropriate Microbiology Past 72 Hours 09/27/20 15:40 Mucosa - Nose Respiratory Panel (PCR) - Final Laboratory Results 09/28/20 16:50: POC Glucose 289 H 09/28/20 20:54: POC Glucose 316 H 09/29/20 05:20: WBC 11.2 H, RBC 4.48, Hgb 12.6, Hct 39.7, MCV 88.6, MCH 28.1, MCHC 31.7 L, RDW Std Deviation 42.0, RDW Coeff of Aniceto 12.9, Plt Count 177, MPV 10.6 09/29/20 05:20: Sodium 136, Potassium 4.8, Chloride 103, Carbon Dioxide 29.0, Anion Gap 4 L, BUN 18, Creatinine 0.76, Estim Creat Clear Calc 40.83, Est GFR (MDRD) Af Amer 96, Est GFR (MDRD) Non-Af 79, BUN/Creatinine Ratio 23.7 H, Glucose 245 H, Calcium 8.8, Magnesium 2.1 09/29/20 07:53: POC Glucose 213 H 09/29/20 11:29: POC Glucose 266 H Current Medications Acetaminophen (Acetaminophen 325 Mg Tablet) 650 mg PO Q6H PRN PRN PRN Reason: Pain Score 1-10/Temp > 100.7 F Albuterol/Ipratropium (Ipratropium/Albuterol Sulfate 3 Ml Ampul.Neb) 3 ml INHALATION Q4HWA.RT [facility] Last Admin: 09/29/20 10:50 Dose: 3 ml Documented by: Amoxicillin/Clavulanate Potassium (Amox/Clavulanate 875 Mg Tablet) 875 mg PO BIDCM [facility] Carbamazepine (Carbamazepine 200 Mg Tablet) 200 mg PO QHS [facility] Last Admin: 09/28/20 20:52 Dose: 200 mg Documented by: Enoxaparin Sodium (Enoxaparin 40 Mg/0.4 Ml Syringe) 40 mg SC DAILY [facility] Last Admin: 09/29/20 08:04 Dose: 40 mg Documented by: Ergocalciferol (Ergocalciferol 50,000 Unit Capsule) 50,000 unit PO SUWE@0800 [facility] Last Admin: 09/29/20 08:02 Dose: 50,000 unit Documented by: Fluticasone Propionate (Fluticasone 0.05% 1 [place] Nasal.Sry) 2 spray NASAL DAILY [facility] Last Admin: 09/29/20 08:03 Dose: 2 spray Documented by: Guaifenesin (Guaifenesin 10 Ml Udc (200mg/10ml)) 20 ml PO Q4H PRN PRN PRN Reason: COUGH Last Admin: 09/29/20 02:41 Dose: 20 ml Documented by: Sodium Chloride () 500 mls @ 999 mls/hr IV .Q31M ONE Last Infusion: 09/27/20 17:48 Dose: Infused Documented by: Sodium Chloride () 500 mls @ 15 mls/hr IV PRN PRN PRN Reason: Blood Transfusion Sodium Chloride () 250 mls @ 15 mls/hr IV .[id number] PRN PRN Reason: Saline Flush Sodium Chloride () 250 mls @ 15 mls/hr IV .[id number] PRN PRN Reason: Additional IVPB Infusion Insulin Human Lispro (Insulin Lispro 100 Unit/Ml Insuln.Pen) 0 unit SC ACHS [facility]; Protocol Last Admin: 09/29/20 07:56 Dose: 4 units Documented by: Insulin Human Lispro (Insulin Lispro 100 Unit/Ml Insuln.Pen) 20 unit SC TIDAC [facility] Insulin Human Regular (Insulin U-500 Units/Ml Pen) 100 units SC DINNER STACY Insulin Human Regular (Insulin U-500 Units/Ml Pen) 100 units SC BREAKFAST [facility] Loperamide HCl (Loperamide 2 Mg Capsule) 2 mg PO Q4H PRN PRN PRN Reason: DIARRHEA/LOOSE STOOLS Loratadine (Loratadine 10 Mg Tablet) 10 mg PO QHS [facility] Last Admin: 09/28/20 20:52 Dose: 10 mg Documented by: Methylprednisolone (Methylprednisolone 40 Mg/Ml Vial) 40 mg IV Q8 [facility] Last Admin: 09/29/20 05:15 Dose: 40 mg Documented by: Montelukast Sodium (Montelukast 10 Mg Tablet) 10 mg PO DAILY [facility] Last Admin: 09/29/20 08:02 Dose: 10 mg Documented by: Nadolol (Nadolol 40 Mg Tablet) 40 mg PO DAILY [facility] Last Admin: 09/29/20 08:01 Dose: 40 mg Documented by: Nitroglycerin (Nitroglycerin (Inpatient Use) 0.4 Mg Tab.Subl) 0.4 mg SL Q5M PRN PRN Reason: CARDIAC/CHEST PAIN Nystatin (Nystatin Powder 15gm Bottle) 1 applic TOPICAL BID [facility]; Protocol Last Admin: 09/29/20 08:03 Dose: 1 applic Documented by: Ondansetron HCl (Ondansetron 4 Mg/2 Ml Vial) 4 mg IV Q8H PRN PRN PRN Reason: NAUSEA/VOMITING Paroxetine HCl (Paroxetine 20 Mg Tablet) 40 mg PO DAILY [facility] Last Admin: 09/29/20 08:02 Dose: 40 mg Documented by: Potassium Chloride (Potassium Chloride Oral Tablet 10 Meq) 10 meq PO DAILYCM [facility] Last Admin: 09/29/20 08:01 Dose: 10 meq Documented by: Pramipexole Dihydrochloride (Pramipexole Di-Hcl 0.5 Mg Tablet) 0.5 mg PO QHS [facility] Last Admin: 09/28/20 20:52 Dose: 0.5 mg Documented by: Sodium Chloride (0.9% Saline Lock 10 Ml Syringe) 10 - 40 ml IV UD PRN PRN Reason: SALINE FLUSH Last Admin: 09/28/20 14:02 Dose: 10 ml Documented by: Medical Necessity - Tobacco Use Smoking Status: Former smoker Assessment/Plan All Active Problems Acute and chronic respiratory failure with hypoxia (Acute) Asthma exacerbation (Acute) Suspected 2019-nCoV infection (Ruled-out) Lactic acidosis (Acute) Hypokalemia (Acute) Acute severe exacerbation of asthma (Resolved) Staphylococcal pneumonia (Ruled-out) Streptococcal pneumonia (Ruled-out) Acute and chronic respiratory failure with hypoxia (Ruled-out) Cellulitis of right breast (Ruled-out) Influenza (Ruled-out) Acute asthma exacerbation (Acute) 1. Acute on chronic hypoxic respiratory failure secondary to acute on chronic exacerbation of asthma-Follows with Dr. Watters. Respiratory panel negative. Previously had oxygen at home for bedtime only use however patient states [facility] took back oxygen 1 to 2 weeks ago because she no longer qualified. Pulmonary medicine following, Dr. Watters. Continue IV Solu-Medrol. Per pulmonary recommendations, plan for discharge on 40 mg daily until follow-up with pulmonary medicine as outpatient. Continue supplemental oxygen to maintain O2 above 90%. Will need home oxygen testing prior to discharge. CT shows right lower lobe infiltrate versus nodule. Plan for 10 days of oral Augmentin and repeat CT in 4 to 6 weeks to reevaluate. 2. Type 2 diabetes pygleuio-[id number]-Bacvu with sliding scale insulin. Continue home insulin regimen. 3. Hypertension-continue nadolol regimen. 4. Allergic rhinitis-continue Singulair, levocetirizine regimen. 5. Anxiety/depression/ADD/bipolar-on paroxetine, carbamazepine. 6. Morbid obesity-encouraged diet lifestyle modifications. 7. Celiac disease-on gluten-free diet. 8. DORY-on BIPAP nightly and as needed. 9. Restless leg syndrome-on Mirapex. DVT prophylaxis- Lovenox sc This patient was seen by HIRAL Alarcon under the supervision of Dr. Brewster. <Benny Brewster - Last Filed: 09/29/20 12:41> - Physical Exam Vitals/I&O's: Vital Signs Temp Pulse Resp BP Pulse Ox 98.4 F 82 16 156/79 H 95 09/29/20 08:30 09/29/20 10:50 09/29/20 10:50 09/29/20 08:30 09/29/20 08:30 Oxygen Flow Rate (L/min) 2 Oxygen Delivery Method Nasal Cannula Weight: 143.925 kg Body Mass Index (BMI) 56.2 Finger Stick Blood Glucose 154 Intake and Output for Last 24 Hours 09/27/20 09/28/20 09/29/20 23:59 23:59 23:59 Intake Total 527.08 / 827.08 2500 / 2500 Output Total 1999 / 1999 1450 / 1450 Balance 527.08 / 827.08 500 / 500 -1450 / -1450 Microbiology Past 72 Hours 09/27/20 15:40 Mucosa - Nose Respiratory Panel (PCR) - Final Laboratory Results 09/28/20 16:50: POC Glucose 289 H 09/28/20 20:54: POC Glucose 316 H 09/29/20 05:20: WBC 11.2 H, RBC 4.48, Hgb 12.6, Hct 39.7, MCV 88.6, MCH 28.1, MCHC 31.7 L, RDW Std Deviation 42.0, RDW Coeff of Aniceto 12.9, Plt Count 177, MPV 10.6 09/29/20 05:20: Sodium 136, Potassium 4.8, Chloride 103, Carbon Dioxide 29.0, Anion Gap 4 L, BUN 18, Creatinine 0.76, Estim Creat Clear Calc 40.83, Est GFR (MDRD) Af Amer 96, Est GFR (MDRD) Non-Af 79, BUN/Creatinine Ratio 23.7 H, Glucose 245 H, Calcium 8.8, Magnesium 2.1 09/29/20 07:53: POC Glucose 213 H 09/29/20 11:29: POC Glucose 266 H Current Medications Acetaminophen (Acetaminophen 325 Mg Tablet) 650 mg PO Q6H PRN PRN PRN Reason: Pain Score 1-10/Temp > 100.7 F Albuterol/Ipratropium (Ipratropium/Albuterol Sulfate 3 Ml Ampul.Neb) 3 ml INHALATION Q4HWA.RT [facility] Last Admin: 09/29/20 10:50 Dose: 3 ml Documented by: Amoxicillin/Clavulanate Potassium (Amox/Clavulanate 875 Mg Tablet) 875 mg PO BIDCM [facility] Carbamazepine (Carbamazepine 200 Mg Tablet) 200 mg PO QHS [facility] Last Admin: 09/28/20 20:52 Dose: 200 mg Documented by: Enoxaparin Sodium (Enoxaparin 40 Mg/0.4 Ml Syringe) 40 mg SC DAILY [facility] Last Admin: 09/29/20 08:04 Dose: 40 mg Documented by: Ergocalciferol (Ergocalciferol 50,000 Unit Capsule) 50,000 unit PO SUWE@0800 [facility] Last Admin: 09/29/20 08:02 Dose: 50,000 unit Documented by: Fluticasone Propionate (Fluticasone 0.05% 1 [place] Nasal.Sry) 2 spray NASAL DAILY [facility] Last Admin: 09/29/20 08:03 Dose: 2 spray Documented by: Guaifenesin (Guaifenesin 10 Ml Udc (200mg/10ml)) 20 ml PO Q4H PRN PRN PRN Reason: COUGH Last Admin: 09/29/20 02:41 Dose: 20 ml Documented by: Sodium Chloride () 500 mls @ 999 mls/hr IV .Q31M ONE Last Infusion: 09/27/20 17:48 Dose: Infused Documented by: Sodium Chloride () 500 mls @ 15 mls/hr IV PRN PRN PRN Reason: Blood Transfusion Sodium Chloride () 250 mls @ 15 mls/hr IV .[id number] PRN PRN Reason: Saline Flush Sodium Chloride () 250 mls @ 15 mls/hr IV .[id number] PRN PRN Reason: Additional IVPB Infusion Insulin Human Lispro (Insulin Lispro 100 Unit/Ml Insuln.Pen) 0 unit SC ACHS [facility]; Protocol Last Admin: 09/29/20 12:36 Dose: 6 units Documented by: Insulin Human Lispro (Insulin Lispro 100 Unit/Ml Insuln.Pen) 20 unit SC TIDAC [facility] Last Admin: 09/29/20 12:35 Dose: 20 u Documented by: Insulin Human Regular (Insulin U-500 Units/Ml Pen) 100 units SC DINNER [facility] Insulin Human Regular (Insulin U-500 Units/Ml Pen) 100 units SC BREAKFAST [facility] Loperamide HCl (Loperamide 2 Mg Capsule) 2 mg PO Q4H PRN PRN PRN Reason: DIARRHEA/LOOSE STOOLS Loratadine (Loratadine 10 Mg Tablet) 10 mg PO QHS [facility] Last Admin: 09/28/20 20:52 Dose: 10 mg Documented by: Methylprednisolone (Methylprednisolone 40 Mg/Ml Vial) 40 mg IV Q8 [facility] Last Admin: 09/29/20 05:15 Dose: 40 mg Documented by: Montelukast Sodium (Montelukast 10 Mg Tablet) 10 mg PO DAILY [facility] Last Admin: 09/29/20 08:02 Dose: 10 mg Documented by: Nadolol (Nadolol 40 Mg Tablet) 40 mg PO DAILY [facility] Last Admin: 09/29/20 08:01 Dose: 40 mg Documented by: Nitroglycerin (Nitroglycerin (Inpatient Use) 0.4 Mg Tab.Subl) 0.4 mg SL Q5M PRN PRN Reason: CARDIAC/CHEST PAIN Nystatin (Nystatin Powder 15gm Bottle) 1 applic TOPICAL BID [facility]; Protocol Last Admin: 09/29/20 08:03 Dose: 1 applic Documented by: Ondansetron HCl (Ondansetron 4 Mg/2 Ml Vial) 4 mg IV Q8H PRN PRN PRN Reason: NAUSEA/VOMITING Paroxetine HCl (Paroxetine 20 Mg Tablet) 40 mg PO DAILY [facility] Last Admin: 09/29/20 08:02 Dose: 40 mg Documented by: Potassium Chloride (Potassium Chloride Oral Tablet 10 Meq) [facility] Last Admin: 09/29/20 08:01 Dose: 10 meq Documented by: Pramipexole Dihydrochloride (Pramipexole Di-Hcl 0.5 Mg Tablet) 0.5 mg PO QHS [facility] Last Admin: 09/28/20 20:52 Dose: 0.5 mg Documented by: Sodium Chloride (0.9% Saline Lock 10 Ml Syringe) 10 - 40 ml IV UD PRN PRN Reason: SALINE FLUSH Last Admin: 09/28/20 14:02 Dose: 10 ml Documented by: Assessment/Plan This patient was seen in conjunction with HIRAL Alarcon . I have independently interviewed and examined the patient and reviewed pertinent historical, laboratory, and other data. Please refer to HIRAL Alarcon note for details of this patient's presentation, findings, and recommendations. I have reviewed HIRAL Alarcon note and concur with documented findings. In brief, Patient is a 75-year-old lady with underlying history of mild persistent asthma presented with progressive shortness of breath with significant wheezing. An assessment of asthma with acute exacerbation made ad mitted to a monitored bed for further management Physical Examination: GENERAL: Dyspneic at rest HEENT: Atraumatic; EYES; Anicteric, Normal Conjunctiva NECK; supple, normal thyroid, RESPIRATORY: Diminished to auscultation bilateral wheezes CARDIOVASCULAR: Regular S1 S2, GI: soft, normoactive bowel sounds, : No Renal angle tenderness; EXTREMITIES: No edema, no clubbing, MUSCULOSKELETAL: no muscle waisting NEURO: Awake; no lateralizing signs. SKIN: No Rash PSYCH; Flat affect Assessment: 1. Acute hypoxic respiratory sufficiency secondary to acute asthma exacerbation. 2. Hypertension 3. Diabetes mellitus type II 4. History of right breast CA -status post lumpectomy with subsequent adjuvant chemo and radiation therapy 5. 2 cm noncalcified nodule in the superior segment of the right lower lobe 6. Allergic rhinitis 7. Obstructive sleep apnea 8. Depression with anxiety 9. Morbid obesity 10. DVT prophylaxis Recommendations: 1. I have discussed the results of my overview and impressions with the patient 2. Options for management were reviewed Inpatient E&M: [id number] [facility] L3
[2020-09-29] MEDS: Insulin Lispro 100 UNIT/ML INSULN.PEN 20 UNIT SC ×2 (12:35→16:29)
[2020-09-29] MEDS: Fluconazole 100 MG Tablet 200 MG PO (12:39)
[2020-09-29] MEDS: Amox/Clavulanate 875 MG Tablet PO ×2 (12:39→16:30)
[2020-09-29] MEDS: Insulin U-500 UNITS/ML PEN 100 UNITS SC (16:30)
[2020-09-29 16:51] LABS: Bedside Glucose 239 mg/dL (70-110)
[2020-09-29] MEDS: Loratadine 10 MG Tablet PO (20:59)
[2020-09-29] MEDS: carBAMazepine 200 MG Tablet PO (21:00)
[2020-09-29] MEDS: Pramipexole Di-HCl 0.5 MG Tablet PO (21:00)
[2020-09-29] MEDS: 0.9% Saline Lock 10 ML Syringe IV (21:08)
[2020-09-29 21:56] LABS: Bedside Glucose 296 mg/dL (70-110)
[2020-09-30] VITALS (9 sets, daily range): BP systolic 147–163; BP diastolic 76–109; PULSE 66–76; RESP 18–24; TEMP 36.6–36.9; O2SAT 88–94
[2020-09-30] MEDS: Ipratropium/Albuterol Sulfate 3 ML AMPUL.NEB INHALATION ×3 (00:17→11:18)
[2020-09-30] MEDS: Acetaminophen 325 MG Tablet 650 MG PO (03:45)
--- NOTE | 2020-09-30 05:40 | RAD_ITS ---
STUDY: X-RAY CHEST REASON FOR EXAM: Female, 75 years old. Right lower lobe nodule vs infiltrate TECHNIQUE: PA and lateral views of the chest. COMPARISON: Comparison is made with prior study dated 09/27/2020. FINDINGS: EKG electrodes are seen. Surgical clips are seen in the right axillary region. The patient is status post right mastectomy. Mild degree of increased markings at the lung bases likely more prominent on the left side suggestive bibasilar atelectasis and/or infiltrate. I suspect a 2.3 cm nodule in the superior segment of the right lower lobe. There is no demonstrated pleural abnormality. Normal size heart. Normal mediastinum and tanna. Normal visualized pulmonary arteries. There is atherosclerotic calcification of the aortic arch with tortuosity. There are diffuse degenerative changes of the visualized thoracic spine. Normal visualized ribs, clavicles, and shoulders. There is no demonstrated abnormality of the visualized soft tissue structures of the upper abdomen. RAD/Chest PA and Lateral IMPRESSION: 2.3 cm nodule in the superior symptoms of the right lower lobe. This is present on the recent CT scan of the thorax. Electronically Signed: Salazar Garcia MD at 8:16 EDT , Service support ,
[2020-09-30] MEDS: 0.9% Saline Lock 10 ML Syringe IV (06:06)
[2020-09-30 06:33] LABS: Hematocrit 42.5 % (37-47); Hemoglobin 13.8 g/dL (12.0-15.0); Mean Corp Hgb Conc 32.5 g/dL (32-36); Mean Corpuscular Volume 86.2 fL (81-99); Mean Platelet Vol. 10.1 fl (6.2-12.0); Platelet Count 216 K/mm3 (150-450); RBC Distribution Width CV 13.1 % (11.6-14.6); RBC Distribution Width SD 40.8 fl (35.1-43.9); Red Blood Count 4.93 M/mm3 (4.2-5.4); White Blood Count 12.5 K/mm3 (4.4-11.0)
[2020-09-30 06:58] LABS: Anion Gap 6 (5-15); BUN 20 mg/dL (7-18); Calcium,Total 9.2 mg/dL (8.5-10.1); Chloride 101 mmol/L (98-107); Creatinine, Serum 0.72 mg/dL (0.55-1.02); EST Glomerular Filtration Rate 85 mL/min (>60); Est Glom Filt Rate - Afr Amer 103 mL/min (>60); Estimated Creatinine Clearance 40.83 ml/min; Glucose 164 mg/dL (74-106); Potassium 4.2 mmol/L (3.5-5.1); Sodium Level 136 mmol/L (136-145)
[2020-09-30] MEDS: Insulin Lispro 100 UNIT/ML INSULN.PEN 20 UNIT SC ×2 (08:23→12:38)
[2020-09-30] MEDS: Insulin U-500 UNITS/ML PEN 100 UNITS SC (08:24)
[2020-09-30] MEDS: Insulin Lispro 100 UNIT/ML INSULN.PEN SC ×2 (08:24→12:38)
[2020-09-30] MEDS: Amox/Clavulanate 875 MG Tablet PO (08:26)
[2020-09-30] MEDS: Nystatin Powder 15gm Bottle 1 APPLIC TOPICAL (08:27)
[2020-09-30] MEDS: Montelukast 10 MG Tablet PO (08:27)
[2020-09-30] MEDS: Paroxetine 20 MG Tablet 40 MG PO (08:27)
[2020-09-30] MEDS: Potassium Chloride Oral Tablet 10 MEQ PO (08:27)
[2020-09-30] MEDS: Nadolol 40 MG Tablet PO (08:27)
[2020-09-30] MEDS: Fluticasone 0.05% 1 SPRAY NASAL.SRY 2 SPRAY NASAL (08:27)
[2020-09-30] MEDS: Enoxaparin 40 MG/0.4 ML Syringe SC (08:27)
[2020-09-30 08:40] LABS: Bedside Glucose 261 mg/dL (70-110)
[2020-09-30 11:21] LABS: Bedside Glucose 285 mg/dL (70-110)
--- NOTE | 2020-09-30 11:44 | DCINST_ITS ---
- Discharge Diagnoses Current Active Problems: Current Active and Chronic Problems Acute and chronic respiratory failure with hypoxia (Acute) Acute asthma exacerbation (Acute) You will use the following diet at home:: Calorie/Carbohydrate Controlled (specify 1200, 1400, etc) Discharge Activity: Return to Normal Activity Call your doctor if you observe: Fever of 101 or Higher, Shortness of breath, Dizziness, Fainting spells, Chest pain Additional Instructions: Continue supplement oxygen as ordered, maintain O2 at or above 90%. Continue prednisone 40 mg daily until follow-up with Dr. Watters. Allergies/Adverse Reactions: Allergies adhesive tape Allergy (Verified 09/27/20 15:07) Unknown listed on pcp allergy list cefadroxil [From Duricef] Allergy (Verified 09/27/20 15:07) Unknown gluten Allergy (Verified 09/27/20 15:07) Other Celiac disease mesalamine [From Asacol] Allergy (Verified 09/27/20 15:07) Unknown listed on pcp allergy list omalizumab [From Xolair] Allergy (Verified 09/27/20 15:07) Unknown listed on pcp allergy list Sulfa (Sulfonamide Antibiotics) Allergy (Verified 09/27/20 15:07) Unknown oxycodone Adverse Reaction (Verified 09/27/20 15:07) Vomiting Medications to take at Discharge Cholecalciferol (Vitamin D3) [Vitamin D3] 50,000 unit PO SUWE@0800 06/01/17 Pramipexole Di-HCl [Mirapex] 0.5 mg PO QHS 06/01/17 Albuterol Aerosols [Ventolin Aerosols] 2.5 mg INHALATION Q2H PRN PRN #1 box 11/26/17 Albuterol IH (ProAir) [Proair Hfa] 2 puff INHALATION Q6H PRN PRN 03/25/18 Budesonide [Rhinocort Allergy] 2 puff NARES DAILY 06/12/18 Carbamazepine 200 mg PO QHS 03/01/19 Methylphenidate HCl [Methylphenidate ER] 20 mg PO BID 03/01/19 Nadolol [Corgard (Beta Tiffanie)] 40 mg PO DAILY 03/01/19 Paroxetine HCl [Paxil] 40 mg PO DAILY 03/01/19 Loperamide [Imodium] 2 mg PO Q4H PRN PRN cap 10/08/19 Insulin U-500 *Concentrated* [Humulin R U-500 *Concentrated Insulin*] 85 units SQ DINNER 03/22/20 Levocetirizine Dihydrochloride [Xyzal] 5 mg PO QHS 03/22/20 Montelukast [Singulair] 10 mg PO DAILY 03/22/20 Nystatin Powder [Mycostatin Powder] 1 applic TOPICAL BID 03/22/20 Potassium Chloride Oral Tablet [K-Dur] 10 meq PO DAILYCM 03/22/20 Insulin U-500 *Concentrated* [Humulin R U-500 *Concentrated Insulin*] 95 units SQ BREAKFAST 08/12/20 Amox/Clavulanate Tablet [Augmentin Tablet] 875 mg PO BIDCM #18 tablet 09/30/20 Prednisone 40 mg PO DAILY #20 tablet 09/30/20 The following prescriptions were given: Amox/Clavulanate Tablet [Augmentin Tablet] 875 mg PO BIDCM #18 tablet Transmission Status: Pending to [facility] [facility] Prednisone 40 mg PO DAILY #20 tablet Transmission Status: Pending to [facility] [place] [address] Primary Care Physician: Senait Jay MD [Primary Care Provider] - Please follow up with your Primary Care Physician in: 1 Week Test Results: Test results from this visit will be discussed in further detail at your follow- up appointment, if applicable. Please Follow Up With: Dre Watters MD When: Within one week Proposed Discharge Date: 09/30/20
--- NOTE | 2020-09-30 11:52 | PCM.DC.SUM ---
<Jenna Cabrera SOFTWARE IMPLEMENTATION SPECIALIST - Last Filed: 09/30/20 12:01> Discharge Date and Diagnosis - Problem List Patient Problems: Active and Suspected Problems Acute and chronic respiratory failure with hypoxia (Acute) Acute asthma exacerbation (Acute) Date of Admission: 09/27/20 Date of Discharge: 09/30/20 - Primary Discharge Diagnosis Acute Problems: Active Problems 1. Acute on chronic hypoxic respiratory failure secondary to acute on chronic exacerbation of asthma 2. Right lower lobe nodule 3. Type 2 diabetes mellitus 4. Hypertension 5. Allergic rhinitis 6. Anxiety/depression/ADD/bipolar 7. Morbid obesity 8. Celiac disease 9. DORY 10. Restless leg syndrome - Secondary Discharge Diagnosis Chronic Problems: Chronic Problems Allergic rhinitis (Chronic) Asthmatic bronchitis (Chronic) Chronic respiratory failure with hypoxia (Chronic) Breast cancer, right breast (Chronic) Vitamin D deficiency (Chronic) Hypertension (Chronic) Diabetes mellitus (Chronic) Body mass index (BMI) 50-59.9, adult (Chronic) Migraine headache (Chronic) Obstructive sleep apnea (Chronic) Osteoarthritis (Chronic) Asthma (Chronic) History of right breast cancer (Chronic) Sleep apnea (Chronic) Diabetes mellitus, type II (Chronic) Anxiety and depression (Chronic) Hospital Course and Treatment Imaging Results: Diagnostic Data Chest CTA 09/28/20 10:26 IMPRESSION: 1. No CT evidence of pulmonary embolism. 2. 2 cm noncalcified nodule in the superior segment the right lower lobe worrisome for bronchogenic carcinoma in correlation with PET CT scan is recommended. Electronically Signed: Jose German MD at 12:15 EDT Tel , Service support , Chest X-Ray 09/30/20 05:40 IMPRESSION: 2.3 cm nodule in the superior symptoms of the right lower lobe. This is present on the recent CT scan of the thorax. Electronically Signed: Salazar Garcia MD at 8:16 EDT , Service support , Dr. Watters- Pulmonary Medicine Operations: None Procedures: None Summary of Care Provided: The patient is a 75 year old F admitted 09/27/20 due to shortness of breath. 1. Acute on chronic hypoxic respiratory failure secondary to acute on chronic exacerbation of asthma- Respiratory panel negative. Previously had oxygen at home for bedtime only use however patient states [facility] took back oxygen 1 to 2 weeks ago because she no longer qualified. Follows with Dr. Watters, consulted during admission. Per pulmonary recommendations, plan for discharge on 40 mg daily until follow-up with pulmonary medicine as outpatient. 10-day course of Augmentin empirically given CT with right lower lobe infiltrate versus nodule. Patient qualified for supplemental oxygen with oxygen saturation 88% on room air. She will require 2 L nasal cannula continuously at rest and with ambulation. She is ambulatory in the home. Follow-up with PCP in 1 week and pulmonary medicine within 1 week as well. 2. Right lower lobe nodule-CT showed right lower lobe infiltrate versus nodule. Plan for course of Augmentin as noted above with outpatient CT in 4 to 6 weeks by pulmonary medicine. 3. Type 2 diabetes mellitus-Continue home insulin regimen. 4. Hypertension-continue nadolol regimen. 5. Allergic rhinitis-continue Singulair, levocetirizine regimen. 6. Anxiety/depression/ADD/bipolar-on paroxetine, carbamazepine. 7. Morbid obesity-encouraged diet lifestyle modifications. 8. Celiac disease-on gluten-free diet. 9. DORY-on BIPAP nightly and as needed. 10. Restless leg syndrome-on Mirapex. General: Alert, Oriented x3, Cooperative HEENT: Atraumatic, PERRLA, EOMI, Normocephalic Neck: Supple, No JVD, Negative Carotid Bruits Lungs: Diminished, few scattered expiratory wheezes-significantly improved Cardiovascular: Regular rate, No murmurs Abdomen: Bowel Sounds Present, Soft, Non Tender, Non-Distended, Obese Extremities: No clubbing, No cyanosis, Edema - Lower extremities Skin: No rashes, No breakdown Musculoskeletal: No Tenderness to Palpation of Joints or Extremities Neurological: Cranial nerves II-XII grossly intact, Neuro grossly intact Psych/Mental Status: Normal Affect, Appropriate Patient seen and examined prior to discharge. Physical assessment as noted above. Patient is stable for discharge with follow up recommendations as noted above. This patient was seen by HIRAL Alarcon under the supervision of Dr. Camejo. Patient Problems: Active and Suspected Problems Acute and chronic respiratory failure with hypoxia (Acute) Acute asthma exacerbation (Acute) - Physical Exam Vitals/I&O's: Vital Signs Temp Pulse Resp BP Pulse Ox 98.4 F 73 18 159/109 H 88 09/30/20 09:40 09/30/20 11:18 09/30/20 11:18 09/30/20 09:40 09/30/20 10:54 Oxygen Flow Rate (L/min) [ 2 AMBULATING with Oxygen #1] Oxygen Flow Rate (L/min) [At 2 REST with Oxygen] Oxygen Flow Rate (L/min) 2 Oxygen Delivery Method Nasal Cannula Weight: 317 lb 4.805 oz Body Mass Index (BMI) 56.2 Finger Stick Blood Glucose 154 Intake and Output for Last 24 Hours 09/28/20 09/29/20 09/30/20 23:59 23:59 23:59 Intake Total 2500 / 2500 1500 / 1500 Output Total 1999 / 1999 2900 / 2900 1075 / 1075 Balance 500 / 500 -1400 / -1400 -1075 / -1075 Microbiology Past 72 Hours 09/27/20 15:40 Mucosa - Nose Respiratory Panel (PCR) - Final Laboratory Results 09/29/20 16:26: POC Glucose 239 H 09/29/20 21:05: POC Glucose 296 H 09/30/20 06:08: WBC 12.5 H, RBC 4.93, Hgb 13.8, Hct 42.5, MCV 86.2, MCH 28.0, MCHC 32.5, RDW Std Deviation 40.8, RDW Coeff of Aniceto 13.1, Plt Count 216, MPV 10.1 09/30/20 06:08: Sodium 136, Potassium 4.2, Chloride 101, Carbon Dioxide 29.0, Anion Gap 6, BUN 20 H, Creatinine 0.72, Estim Creat Clear Calc 40.83, Est GFR (MDRD) Af Amer 103, Est GFR (MDRD) Non-Af 85, BUN/Creatinine Ratio 28.0 H, Glucose 164 H, Calcium 9.2 09/30/20 08:22: POC Glucose 261 H 09/30/20 11:15: POC Glucose 285 H Current Medications Acetaminophen (Acetaminophen 325 Mg Tablet) 650 mg PO Q6H PRN PRN PRN Reason: Pain Score 1-10/Temp > 100.7 F Last Admin: 09/30/20 03:45 Dose: 650 mg Documented by: Albuterol/Ipratropium (Ipratropium/Albuterol Sulfate 3 Ml Ampul.Neb) 3 ml INHALATION Q4HWA.RT [facility] Last Admin: 09/30/20 11:18 Dose: 3 ml Documented by: Amoxicillin/Clavulanate Potassium (Amox/Clavulanate 875 Mg Tablet) 875 mg PO BIDCM [facility] Last Admin: 09/30/20 08:26 Dose: 875 mg Documented by: Carbamazepine (Carbamazepine 200 Mg Tablet) 200 mg PO QHS [facility] Last Admin: 09/29/20 21:00 Dose: 200 mg Documented by: Enoxaparin Sodium (Enoxaparin 40 Mg/0.4 Ml Syringe) 40 mg SC DAILY [facility] Last Admin: 09/30/20 08:27 Dose: 40 mg Documented by: Ergocalciferol (Ergocalciferol 50,000 Unit Capsule) 50,000 unit PO SUWE@0800 [facility] Last Admin: 09/29/20 08:02 Dose: 50,000 unit Documented by: Fluticasone Propionate (Fluticasone 0.05% 1 [place] Nasal.Sry) 2 spray NASAL DAILY [facility] Last Admin: 09/30/20 08:27 Dose: 2 spray Documented by: Guaifenesin (Guaifenesin 10 Ml Udc (200mg/10ml)) 20 ml PO Q4H PRN PRN PRN Reason: COUGH Last Admin: 09/29/20 02:41 Dose: 20 ml Documented by: Sodium Chloride () 500 mls @ 999 mls/hr IV .Q31M ONE Last Infusion: 09/27/20 17:48 Dose: Infused Documented by: Sodium Chloride () 500 mls @ 15 mls/hr IV PRN PRN PRN Reason: Blood Transfusion Sodium Chloride () 250 mls @ 15 mls/hr IV .[id number] PRN PRN Reason: Saline Flush Sodium Chloride () 250 mls @ 15 mls/hr IV .[id number] PRN PRN Reason: Additional IVPB Infusion Insulin Human Lispro (Insulin Lispro 100 Unit/Ml Insuln.Pen) 0 unit SC ACHS [facility]; Protocol Last Admin: 09/30/20 08:24 Dose: 6 units Documented by: Insulin Human Lispro (Insulin Lispro 100 Unit/Ml Insuln.Pen) 20 unit SC TIDAC [facility] Last Admin: 09/30/20 08:23 Dose: 20 u Documented by: Insulin Human Regular (Insulin U-500 Units/Ml Pen) 100 units SC DINNER [facility] Last Admin: 09/29/20 16:30 Dose: 100 u Documented by: Insulin Human Regular (Insulin U-500 Units/Ml Pen) 100 units SC BREAKFAST [facility] Last Admin: 09/30/20 08:24 Dose: 100 units Documented by: Loperamide HCl (Loperamide 2 Mg Capsule) 2 mg PO Q4H PRN PRN PRN Reason: DIARRHEA/LOOSE STOOLS Loratadine (Loratadine 10 Mg Tablet) 10 mg PO QHS [facility] Last Admin: 09/29/20 20:59 Dose: 10 mg Documented by: Methylprednisolone (Methylprednisolone 40 Mg/Ml Vial) 40 mg IV Q8 [facility] Last Admin: 09/30/20 06:06 Dose: 40 mg Documented by: Montelukast Sodium (Montelukast 10 Mg Tablet) 10 mg PO DAILY [facility] Last Admin: 09/30/20 08:27 Dose: 10 mg Documented by: Nadolol (Nadolol 40 Mg Tablet) 40 mg PO DAILY [facility] Last Admin: 09/30/20 08:27 Dose: 40 mg Documented by: Nitroglycerin (Nitroglycerin (Inpatient Use) 0.4 Mg Tab.Subl) 0.4 mg SL Q5M PRN PRN Reason: CARDIAC/CHEST PAIN Nystatin (Nystatin Powder 15gm Bottle) 1 applic TOPICAL BID [facility]; Protocol Last Admin: 09/30/20 08:27 Dose: 1 applic Documented by: Ondansetron HCl (Ondansetron 4 Mg/2 Ml Vial) 4 mg IV Q8H PRN PRN PRN Reason: NAUSEA/VOMITING Paroxetine HCl (Paroxetine 20 Mg Tablet) 40 mg PO DAILY [facility] Last Admin: 09/30/20 08:27 Dose: 40 mg Documented by: Potassium Chloride (Potassium Chloride Oral Tablet 10 Meq) [facility] Last Admin: 09/30/20 08:27 Dose: 10 meq Documented by: Pramipexole Dihydrochloride (Pramipexole Di-Hcl 0.5 Mg Tablet) 0.5 mg PO QHS [facility] Last Admin: 09/29/20 21:00 Dose: 0.5 mg Documented by: Sodium Chloride (0.9% Saline Lock 10 Ml Syringe) 10 - 40 ml IV UD PRN PRN Reason: SALINE FLUSH Last Admin: 09/30/20 06:06 Dose: 10 ml Documented by: Discharge Diet: 1800 Calorie Control Diet, Carb Control Diet Discharge Activity: Return to Normal Activity Call your doctor if you observe: Fever of 101 or Higher, Shortness of breath, Dizziness, Fainting spells, Chest pain Home Medications: Medications to take at Discharge Cholecalciferol (Vitamin D3) [Vitamin D3] 50,000 unit PO SUWE@0800 06/01/17 Pramipexole Di-HCl [Mirapex] 0.5 mg PO QHS 06/01/17 Albuterol Aerosols [Ventolin Aerosols] 2.5 mg INHALATION Q2H PRN PRN #1 box 11/26/17 Albuterol IH (ProAir) [Proair Hfa] 2 puff INHALATION Q6H PRN PRN 03/25/18 Budesonide [Rhinocort Allergy] 2 puff NARES DAILY 06/12/18 Carbamazepine 200 mg PO QHS 03/01/19 Methylphenidate HCl [Methylphenidate ER] 20 mg PO BID 03/01/19 Nadolol [Corgard (Beta Tiffanie)] 40 mg PO DAILY 03/01/19 Paroxetine HCl [Paxil] 40 mg PO DAILY 03/01/19 Loperamide [Imodium] 2 mg PO Q4H PRN PRN cap 10/08/19 Insulin U-500 *Concentrated* [Humulin R U-500 *Concentrated Insulin*] 85 units SQ DINNER 03/22/20 Levocetirizine Dihydrochloride [Xyzal] 5 mg PO QHS 03/22/20 Montelukast [Singulair] 10 mg PO DAILY 03/22/20 Nystatin Powder [Mycostatin Powder] 1 applic TOPICAL BID 03/22/20 Potassium Chloride Oral Tablet [K-Dur] 10 meq PO DAILYCM 03/22/20 Insulin U-500 *Concentrated* [Humulin R U-500 *Concentrated Insulin*] 95 units SQ BREAKFAST 08/12/20 Amox/Clavulanate Tablet [Augmentin Tablet] 875 mg PO BIDCM #18 tablet 09/30/20 Prednisone 40 mg PO DAILY #20 tablet 09/30/20 Following Prescriptions Were Given to Patient: Amox/Clavulanate Tablet [Augmentin Tablet] 875 mg PO BIDCM #18 tablet Transmission Status: Received by ERNIE INGRAM [facility] Prednisone 40 mg PO DAILY #20 tablet Transmission Status: Received by ERNIE HERNANDEZ1954 [facility] Primary Care Physician: Senait Jay MD [Primary Care Provider] - Please follow up with your Primary Care Physician in: 1 Week Please Follow Up With: Dre Watters MD When: Within one week Disposition: Home Minutes spent on discharge:: 35 Patient Condition:: Stable Medical Necessity - Tobacco Use Smoking Status: Former smoker Meaningful Use Info Meaningful Use Diagnoses (Choose all that apply): None applicable <Moris Camejo - Last Filed: 09/30/20 14:16> Discharge Date and Diagnosis - Primary Discharge Diagnosis Acute Problems: Active Problems Acute and chronic respiratory failure with hypoxia (Acute) Acute asthma exacerbation (Acute) - Secondary Discharge Diagnosis Chronic Problems: Chronic Problems Allergic rhinitis (Chronic) Asthmatic bronchitis (Chronic) Chronic respiratory failure with hypoxia (Chronic) Breast cancer, right breast (Chronic) Vitamin D deficiency (Chronic) Hypertension (Chronic) Diabetes mellitus (Chronic) Body mass index (BMI) 50-59.9, adult (Chronic) Migraine headache (Chronic) Obstructive sleep apnea (Chronic) Osteoarthritis (Chronic) Asthma (Chronic) History of right breast cancer (Chronic) Sleep apnea (Chronic) Diabetes mellitus, type II (Chronic) Anxiety and depression (Chronic) Hospital Course and Treatment Imaging Results: 09/30/20 05:40 CXR [Chest PA and Lateral] [RAD] AM (NON MEDS) Operations: None Procedures: None Summary of Care Provided: Patient seen and examined independently. Data reviewed. I agree with the above note by the nurse practitioner. 1. Acute on chronic hypoxic respiratory failure patient required oxygen 2 L nasal cannula at rest and with ambulation. 2. Acute on chronic asthma exacerbation patient to continue with prednisone for 10 days and follow-up with pulmonary 3. Right lung nodule follow-up with pulmonology. Patient to be on amoxicillin/clavulanic acid. The patient is a 75 year old F [] - Physical Exam Vitals/I&O's: Vital Signs Temp Pulse Resp BP Pulse Ox 36.8 C 72 20 H 147/76 H 94 09/30/20 14:06 09/30/20 14:06 09/30/20 14:06 09/30/20 14:06 09/30/20 14:06 Oxygen Flow Rate (L/min) [ 2 AMBULATING with Oxygen #1] Oxygen Flow Rate (L/min) [At 2 REST with Oxygen] Oxygen Flow Rate (L/min) 2 Oxygen Delivery Method Nasal Cannula Weight: 143.925 kg Body Mass Index (BMI) 56.2 Finger Stick Blood Glucose 154 Intake and Output for Last 24 Hours 09/28/20 09/29/20 09/30/20 23:59 23:59 23:59 Intake Total 2500 / 2500 1500 / 1500 360 / 360 Output Total 1999 / 1999 2900 / 2900 1425 / 1425 Balance 500 / 500 -1400 / -1400 -1065 / -1065 General: Alert, No apparent distress HEENT: Atraumatic, Normocephalic Oral: Moist Mucosa, No Gingival or Mucosal Lesions/ Ulcerations Neck: No Nodes, Thyroid Normal Size and Texture Lungs: Normal air movement, Wheezes Cardiovascular: Regular rate, Regular Rhythm, Normal S1, Normal S2, No murmurs Abdomen: Bowel Sounds Present, Soft, Non Tender, Non-Distended, No Hepato-splenomegaly Psych/Mental Status: Normal Affect, Appropriate Microbiology Past 72 Hours 09/27/20 15:40 Mucosa - Nose Respiratory Panel (PCR) - Final Laboratory Results 09/29/20 16:26: POC Glucose 239 H 09/29/20 21:05: POC Glucose 296 H 09/30/20 06:08: WBC 12.5 H, RBC 4.93, Hgb 13.8, Hct 42.5, MCV 86.2, MCH 28.0, MCHC 32.5, RDW Std Deviation 40.8, RDW Coeff of Aniceto 13.1, Plt Count 216, MPV 10.1 09/30/20 06:08: Sodium 136, Potassium 4.2, Chloride 101, Carbon Dioxide 29.0, Anion Gap 6, BUN 20 H, Creatinine 0.72, Estim Creat Clear Calc 40.83, Est GFR (MDRD) Af Amer 103, Est GFR (MDRD) Non-Af 85, BUN/Creatinine Ratio 28.0 H, Glucose 164 H, Calcium 9.2 09/30/20 08:22: POC Glucose 261 H 09/30/20 11:15: POC Glucose 285 H Current Medications Acetaminophen (Acetaminophen 325 Mg Tablet) 650 mg PO Q6H PRN PRN PRN Reason: Pain Score 1-10/Temp > 100.7 F Last Admin: 09/30/20 03:45 Dose: 650 mg Documented by: Albuterol/Ipratropium (Ipratropium/Albuterol Sulfate 3 Ml Ampul.Neb) 3 ml INHALATION Q4HWA.RT [facility] Last Admin: 09/30/20 11:18 Dose: 3 ml Documented by: Amoxicillin/Clavulanate Potassium (Amox/Clavulanate 875 Mg Tablet) 875 mg PO BIDCM [facility] Last Admin: 09/30/20 08:26 Dose: 875 mg Documented by: Carbamazepine (Carbamazepine 200 Mg Tablet) 200 mg PO QHS [facility] Last Admin: 09/29/20 21:00 Dose: 200 mg Documented by: Enoxaparin Sodium (Enoxaparin 40 Mg/0.4 Ml Syringe) 40 mg SC DAILY [facility] Last Admin: 09/30/20 08:27 Dose: 40 mg Documented by: Ergocalciferol (Ergocalciferol 50,000 Unit Capsule) 50,000 unit PO SUWE@0800 [facility] Last Admin: 09/29/20 08:02 Dose: 50,000 unit Documented by: Fluticasone Propionate (Fluticasone 0.05% 1 [place] Nasal.Sry) 2 spray NASAL DAILY [facility] Last Admin: 09/30/20 08:27 Dose: 2 spray Documented by: Guaifenesin (Guaifenesin 10 Ml Udc (200mg/10ml)) 20 ml PO Q4H PRN PRN PRN Reason: COUGH Last Admin: 09/29/20 02:41 Dose: 20 ml Documented by: Sodium Chloride () 500 mls @ 999 mls/hr IV .Q31M ONE Last Infusion: 09/27/20 17:48 Dose: Infused Documented by: Sodium Chloride () 500 mls @ 15 mls/hr IV PRN PRN PRN Reason: Blood Transfusion Sodium Chloride () 250 mls @ 15 mls/hr IV .[id number] PRN PRN Reason: Saline Flush Sodium Chloride () 250 mls @ 15 mls/hr IV .[id number] PRN PRN Reason: Additional IVPB Infusion Insulin Human Lispro (Insulin Lispro 100 Unit/Ml Insuln.Pen) 0 unit SC ACHS [facility]; Protocol Last Admin: 09/30/20 12:38 Dose: 6 units Documented by: Insulin Human Lispro (Insulin Lispro 100 Unit/Ml Insuln.Pen) 20 unit SC TIDAC [facility] Last Admin: 09/30/20 12:38 Dose: 20 u Documented by: Insulin Human Regular (Insulin U-500 Units/Ml Pen) 100 units SC DINNER [facility] Last Admin: 09/29/20 16:30 Dose: 100 u Documented by: Insulin Human Regular (Insulin U-500 Units/Ml Pen) 100 units SC BREAKFAST [facility] Last Admin: 09/30/20 08:24 Dose: 100 units Documented by: Loperamide HCl (Loperamide 2 Mg Capsule) 2 mg PO Q4H PRN PRN PRN Reason: DIARRHEA/LOOSE STOOLS Loratadine (Loratadine 10 Mg Tablet) 10 mg PO QHS [facility] Last Admin: 09/29/20 20:59 Dose: 10 mg Documented by: Methylprednisolone (Methylprednisolone 40 Mg/Ml Vial) 40 mg IV Q8 [facility] Last Admin: 09/30/20 06:06 Dose: 40 mg Documented by: Montelukast Sodium (Montelukast 10 Mg Tablet) 10 mg PO DAILY [facility] Last Admin: 09/30/20 08:27 Dose: 10 mg Documented by: Nadolol (Nadolol 40 Mg Tablet) 40 mg PO DAILY [facility] Last Admin: 09/30/20 08:27 Dose: 40 mg Documented by: Nitroglycerin (Nitroglycerin (Inpatient Use) 0.4 Mg Tab.Subl) 0.4 mg SL Q5M PRN PRN Reason: CARDIAC/CHEST PAIN Nystatin (Nystatin Powder 15gm Bottle) 1 applic TOPICAL BID [facility]; Protocol Last Admin: 09/30/20 08:27 Dose: 1 applic Documented by: Ondansetron HCl (Ondansetron 4 Mg/2 Ml Vial) 4 mg IV Q8H PRN PRN PRN Reason: NAUSEA/VOMITING Paroxetine HCl (Paroxetine 20 Mg Tablet) 40 mg PO DAILY [facility] Last Admin: 09/30/20 08:27 Dose: 40 mg Documented by: Potassium Chloride (Potassium Chloride Oral Tablet 10 Meq) [facility] Last Admin: 09/30/20 08:27 Dose: 10 meq Documented by: Pramipexole Dihydrochloride (Pramipexole Di-Hcl 0.5 Mg Tablet) 0.5 mg PO QHS [facility] Last Admin: 09/29/20 21:00 Dose: 0.5 mg Documented by: Sodium Chloride (0.9% Saline Lock 10 Ml Syringe) 10 - 40 ml IV UD PRN PRN Reason: SALINE FLUSH Last Admin: 09/30/20 06:06 Dose: 10 ml Documented by: Discharge Diet: 1800 Calorie Control Diet, Carb Control Diet Discharge Activity: Return to Normal Activity Call your doctor if you observe: Fever of 101 or Higher, Shortness of breath, Dizziness, Fainting spells, Chest pain Disposition: Home Minutes spent on discharge:: 35 Patient Condition:: Stable Medical Necessity - Tobacco Use Smoking Status: Former smoker Meaningful Use Info Meaningful Use Diagnoses (Choose all that apply): None applicable Inpatient E&M: 56456 Disch Hosp
--- NOTE | 2020-09-30 12:36 | PHA.DC.MC ---
Pharmacy Service has performed discharge medication reconciliation and counseling for this patient. 1. AUGMENTIN 875MG PO BID X 9 DAYS 2. PREDNISONE 40MG PO DAILY X 10 DAYS The patient's discharge medication list was reviewed for discrepancies and discrepancies were resolved. Confirmed that patient uses a U-500 insulin pen - doses 85units dinner and 95untis breakfast. This [facility] notified patient that no changes have been made to her insulin regimen. Home Medications Cholecalciferol (Vitamin D3) [Vitamin D3] 50,000 unit PO SUWE@0800 06/01/17 Pramipexole Di-HCl [Mirapex] 0.5 mg PO QHS 06/01/17 Albuterol Aerosols [Ventolin Aerosols] 2.5 mg INHALATION Q2H PRN PRN #1 box 11/26/17 Albuterol IH (ProAir) [Proair Hfa] 2 puff INHALATION Q6H PRN PRN 03/25/18 Budesonide [Rhinocort Allergy] 2 puff NARES DAILY 06/12/18 Carbamazepine 200 mg PO QHS 03/01/19 Methylphenidate HCl [Methylphenidate ER] 20 mg PO BID 03/01/19 Nadolol [Corgard (Beta Tiffanie)] 40 mg PO DAILY 03/01/19 Paroxetine HCl [Paxil] 40 mg PO DAILY 03/01/19 Loperamide [Imodium] 2 mg PO Q4H PRN PRN cap 10/08/19 Insulin U-500 *Concentrated* [Humulin R U-500 *Concentrated Insulin*] 85 units SQ DINNER 03/22/20 Levocetirizine Dihydrochloride [Xyzal] 5 mg PO QHS 03/22/20 Montelukast [Singulair] 10 mg PO DAILY 03/22/20 Nystatin Powder [Mycostatin Powder] 1 applic TOPICAL BID 03/22/20 Potassium Chloride Oral Tablet [K-Dur] 10 meq PO DAILYCM 03/22/20 Insulin U-500 *Concentrated* [Humulin R U-500 *Concentrated Insulin*] 95 units SQ BREAKFAST 08/12/20 Amox/Clavulanate Tablet [Augmentin Tablet] 875 mg PO BIDCM #18 tablet 09/30/20 Prednisone 40 mg PO DAILY #20 tablet 09/30/20 The patient was counseled on the following discharge medications and changes in medications for homegoing were reviewed. The Reason for Use, instructions for use, and potential side effects were reviewed for all new medications. The patient's questions regarding all of their medications were answered. The patient was able to verbally demonstrate an understanding of their discharge medications.
--- NOTE | 2020-10-02 15:50 | CASEMGMT ---
Late entry for 09/30/20 Pt qualifies for home O2. Pt preference is [facility]. JASWINDER PLASCENCIA faxed referral to [employer] and followed up with phone call that referral was received. O2 to be delivered to pt room.
--- NOTE | 2020-10-02 15:55 | CASEMGMT ---
JASWINDER PLASCENCIA Discharge Follow-Up Phone Call. Sulma: 13 Strata: 3 Discharge Date: 10/01/20 Adm Dx: Acute asthma exac, acute hypoxic resp insufficiency Call to pt to inquire about how she has been doing since being discharged from the hospital. Pt states she is feeling about the same. She states someone from [employer] helped her with getting her CPAP fixed today, stating they instructed her over the phone. She states the oxygen was delivered to her home yesterday, but that she has already used 1 of the 3 portable tanks they gave her d/t the extension tubing is not long enough to reach to the ground floor where she is during the day. (The concentrator is in her bedroom on the 2nd floor). JASWINDER PLASCENCIA advised her to contact [employer] to inform them of this and so more portable tanks can be delivered and for a longer extension tubing. She states she will call them and confirms she has their number. She states she did crab picker the 2 new prescriptions @ [facility] yesterday and denies having any questions about them or her other medications and denies having any questions about her discharge instructions. She is aware of the upcoming appts w/Dr Jay and Dr Watters. She thanked JASWINDER PLASCENCIA for calling. Call placed to Ivette @ [employer] and she was made aware of above re: O2 cord/tanks and made aware pt should be calling them this evening. She states she will have more portable O2 tanks and a longer extension tubing delivered to pt's home tomorrow. Neftaly CHAPAN JASWINDER PLASCENCIA
== END 2020-09-30 14:37 | disposition home or self-care (01) | DRG 202 ==
LOC: ED 15:38 → PCU 18:39
PROVIDERS: Internal Medicine; Admitting Provider Student in an Organized Health Care Education/Training Program; Emergency Provider Emergency Medicine; PCP Internal Medicine
DX: J45.32 Mild persistent asthma with status asthmaticus (principal); F31.9 Bipolar disorder, unspecified; J96.21 Acute and chronic respiratory failure with hypoxia; Z68.43 Body mass index [BMI] 50.0-59.9, adult; E66.01 Morbid (severe) obesity due to excess calories; E11.9 Type 2 diabetes mellitus without complications; Z79.4 Long term (current) use of insulin; R91.1 Solitary pulmonary nodule; I10 Essential (primary) hypertension; F41.9 Anxiety disorder, unspecified; F98.8 Other specified behavioral and emotional disorders with onset usually occurring in childhood and adolescence; G47.33 Obstructive sleep apnea (adult) (pediatric); G25.81 Restless legs syndrome; E55.9 Vitamin D deficiency, unspecified; G43.909 Migraine, unspecified, not intractable, without status migrainosus; M19.90 Unspecified osteoarthritis, unspecified site; Z79.899 Other long term (current) drug therapy; Z87.891 Personal history of nicotine dependence; Z85.3 Personal history of malignant neoplasm of breast; K90.0 Celiac disease; R06.02 Shortness of breath
CPT/HCPCS: 36415; 71045; 71046; 71275; 80048; 82962; 83735; 83880; 84484; 85025; 85027; 85379; 87070; 87077; 87186; 87205; 87633; 87635; 93005; 94640; 94667; 94668; 96361; 96372; 96374; 96376; 97162; 97165; 99218; 99251; 99285; J7030; J7040; Q9967; A4216; G0378; G0463; U0002

== ENCOUNTER → 2020-10-16 12:13 | Outpatient (CLI) | payer MEDICARE, SELFPAY ==
[2020-09-27 18:46] VITALS: BMI 56.2
--- NOTE | 2020-10-16 12:16 | RAD_ITS ---
STUDY: X-RAY CHEST REASON FOR EXAM: Female, 75 years old. PULM NODULE TECHNIQUE: PA and lateral views of the chest. COMPARISON: Comparison is made with prior study dated 09/30/2020. FINDINGS: Surgical clips are seen in the right axillary region as well as overlying the right hemithorax. The patient is status post right mastectomy. Stable mild degree of increased markings at the lung bases suggestive of scarring and/or atelectasis. Questionable persistent nodular density in the right infrahilar region. This was shown to be a noncalcified nodule on prior CT scan of the thorax dated 09/28/2020. There is no demonstrated pleural abnormality. Normal size heart. Normal mediastinum and tanna. Normal visualized pulmonary arteries. There is atherosclerotic calcification of the aortic arch with tortuosity. There are diffuse degenerative changes of the visualized thoracic spine. Normal visualized ribs, clavicles, and shoulders. There is no demonstrated abnormality of the visualized soft tissue structures of the upper abdomen. RAD/Chest PA and Lateral IMPRESSION: Stable examination. Electronically Signed: Salazar Garcia MD at 10:46 EDT , Service support ,
== END ==
PROVIDERS: PCP Internal Medicine; Referring Provider Internal Medicine Pulmonary Disease; Visit Provider Internal Medicine Pulmonary Disease
DX: R91.1 Solitary pulmonary nodule (principal)
CPT/HCPCS: 71046

== ENCOUNTER → 2020-11-19 14:55 | Outpatient (CLI) | payer MEDICARE, SELFPAY ==
[2020-09-27 18:46] VITALS: BMI 56.2
--- NOTE | 2020-11-19 15:00 | PET_ITS ---
EXAMINATION: FDG PET/CT INDICATIONS: A 75-year-old female with history of carcinoma of the breast presenting for restaging examination and evaluation of pulmonary nodularity. COMPARISON EXAMINATION: CT of the chest report dated 09/28/20 INDEX LESION SIZE SUV INTERPRETATION Right mid medial lung-right lower lobe 21.4 x 27.6-mm (frame 209) 18.4 Fulfills quantitative criteria for viable neoplasm Right thoracic perihilum 22.5-mm (frame 208) 3.5 Fulfills borderline quantitative criteria for viable neoplasm TECHNIQUE: Following the intravenous administration of 13.26 mCi of F-18 deoxyglucose via the left hand antecubital fossa, multiplanar image acquisitions of the neck, chest, abdomen and pelvis to level of mid thigh, obtained at one hour post radiopharmaceutical administration contemporaneously interpreted with the current CT of the neck, chest, abdomen and pelvis to level of mid thigh, dated 11/19/[address] of the chest report dated 09/28/20 reveal: SERUM GLUCOSE LEVEL: 156 mg/dl. HEIGHT: 63 inches. WEIGHT: 311 lbs. FINDINGS: 1. Focal increased glucose metabolism is defined in the right mid medial lung and right lower lobe adjacent to the right thoracic perihilum. The calculated maximal standard uptake value is 18.4. The maximal axial diameter of the corresponding parenchymal density on review of CT of the chest dated 11/19/20 is 21.4-mm (transverse) x 27.6-mm (AP). 2. Mild increased FDG concentration is observed in the right thoracic perihilum generating a calculated maximal standard uptake value of 3.5. Borderline quantitative criteria for centrally located thoracic/mediastinal viable neoplasm are fulfilled. The maximal axial diameter of the corresponding metabolic, morphologic abnormality on review of CT of the chest dated 11/19/20 is 22.5-mm (AP). 3. Normal physiologic distribution of the radiopharmaceutical is apparent in the hepatic (2.9) and splenic parenchyma, both renal units, bladder and visualized intestinal tract. The visualized portion of the cerebral cortical-subcortical structures demonstrate symmetric and preserved glucose metabolism. Diffuse radiopharmaceutical concentration is noted in all four quadrants of the abdomen and pelvis. Pertinent CT findings are as follows: CHEST: There is atherosclerotic calcification defined in the thoracic aorta without evidence of dilatation-aneurysm formation. Coronary arterial calcification is observed. Bilateral axillary soft tissue densities demonstrate no evidence of increased tracer uptake. The right breast appears surgically absent. Postsurgical changes-surgical clip placement are manifest in the right breast, chest wall and axillary region. Mediastinal soft tissue is non-glucose avid. A parenchymal density manifest in the right lower posterior lung-right lower lobe reveals no evidence of increased glucose concentration. ABDOMEN AND PELVIS: There is atherosclerotic calcification defined in the abdominal aorta without evidence of dilatation-aneurysm formation. Abdominal-pelvic arterial calcification is defined. A fat containing paraumbilical hernia is observed. Calcified phlebolith formation is encountered in the left lower posterior hemipelvis. The uterus appears surgically absent. SKELETAL: Degenerative changes are noted in the cervical, thoracic and lumbar spine without evidence of increased radiopharmaceutical concentration. There is no evidence of sclerotic, mixed sclerotic-lytic and/or lytic changes noted on review of the skeletal structures manifesting an increase in glucose metabolism. PET/PET/CT Tumor Base -Thigh Init IMPRESSION: 1. Increased FDG concentration observed in the right mid posterior lung-right lower lobe fulfills quantitative criteria for viable neoplasm. Histopathologic analysis is recommended. (Stack et al, Annals of Internal Medicine, 138:724, 2003). 2. Enhanced tracer uptake observed in the right thoracic perihilum fulfills borderline quantitative criteria for malignant transformation. (Mya et al, Journal of Clinical Oncology 16:2142, 1998). Electronic Signature Jose Seymour D.O. Accurate Quantification of SUVs for this report are calculated using the exclusive [employer] Technology. (U.S. Patent No. 10, 674, 983). Standardization and correction of the FDG SUV metric via [employer] technology allow for vendor non-specific objective quantitative examination comparison and optimization of the sensitivity and specificity of the FDG PET-CT examination. Electronically Signed: Jose Seymour DO at 22:25 EDT Tel , Service support ,
== END ==
PROVIDERS: PCP Internal Medicine; Referring Provider Internal Medicine Pulmonary Disease; Visit Provider Internal Medicine Pulmonary Disease
DX: R94.2 Abnormal results of pulmonary function studies (principal); J45.51 Severe persistent asthma with (acute) exacerbation
CPT/HCPCS: 78815; A9552

== ENCOUNTER 2020-12-06 12:59 | Observation (INO) | payer MEDICARE, SELFPAY ==
[2020-09-27 18:46] VITALS: BMI 56.2
[2020-12-06] VITALS (15 sets, daily range): BP systolic 104–179; BP diastolic 56–93; PULSE 83–94; RESP 12–27; TEMP 36.3–37.6; O2SAT 89–99; BMI 56.1; BMI 55.0
--- NOTE | 2020-12-06 13:30 | RAD_ITS ---
STUDY: X-RAY CHEST REASON FOR EXAM: Female, 75 years old. SOB, cough TECHNIQUE: Single AP portable view of the chest. COMPARISON: Comparison is made with prior study dated 10/16/2020. FINDINGS: EKG electrodes are seen. Surgical clips are seen in the right axillary region and overlying the right breast in keeping with prior mastectomy. The lungs are clear and expanded. There is no demonstrated pleural abnormality. Normal size heart. Normal mediastinum and tanna. Normal visualized pulmonary arteries. There is atherosclerotic calcification of the aortic arch with tortuosity. There are diffuse degenerative changes of the visualized thoracic spine. Normal visualized ribs, clavicles, and shoulders. There is no demonstrated abnormality of the visualized soft tissue structures of the upper abdomen. RAD/Chest 1 View (Portable) IMPRESSION: Stable examination. No acute abnormality is seen. Electronically Signed: Salazar Garcia MD at 14:28 EDT , Service support ,
--- NOTE | 2020-12-06 13:30 | EKG12_ITS ---
Test Reason : SOB Blood Pressure : / mmHG Vent. Rate : 089 BPM Atrial Rate : 083 BPM P-R Int : 000 ms QRS Dur : 082 ms QT Int : 370 ms P-R-T Axes : 000 -11 098 degrees QTc Int : 450 ms Undetermined rhythm :Consider Sinus vs. Ectopic Atrial Rhythm Low Volage QRS Nonspecific T- wave abnormality Confirmed by SHARLA RIVERA, EN ([id number]), makeup editor GENNY ROSENTHAL ([id number]) on 12/11/2020 1:30:41 PM Referred By: RENATA/JO Confirmed By:EN MAGDALENO MD
[2020-12-06] MEDS: Ipratropium/Albuterol Sulfate 3 ML AMPUL.NEB INHALATION ×4 (13:43→23:37)
--- NOTE | 2020-12-06 13:44 | EX.ED.DYSGE1 ---
HPI History of Present Illness Chief Complaint: Shortness of Breath Informant: patient Narrative Narrative: Patient is a 75-year-old female with a past medical history of asthma, DORY who presents to the emergency department for shortness of breath. She states that this has been present over the past 2 or 3 days. She has not been using her home breathing treatments. She typically wears 2 L of oxygen at baseline. She has had a nonproductive cough. She denies any fevers or chills. She denies any significant chest pain associated with this. No abdominal pain or nausea/vomiting. She has been vaccinated for Covid. She denies any significant leg swelling or calf pain. No history of DVT/PE. No history of [place]. She states last time she was on steroids was around 1 month ago. She denies any current cigarette use. [facility] Medical History Anxiety Asthma Breast cancer Depression Diabetes GERD (gastroesophageal reflux disease) Hypertension Migraines Sleep apnea Home Medications cholecalciferol (vitamin D3) 50,000 unit PO SUWE@0800 06/01/17 [History Last Taken 12/04/20] pramipexole 0.5 mg PO QHS 06/01/17 [History Last Taken 12/05/20] albuterol sulfate 2.5 mg INHALATION Q2H PRN PRN #1 box 11/26/17 [Rx Last Taken 12/05/20] albuterol sulfate [ProAir HFA] 2 puff INHALATION Q6H PRN PRN 03/25/18 [History Last Taken 12/05/20] budesonide [Rhinocort Allergy] 2 puff NARES DAILY 06/12/18 [History Last Taken 09/26/20] carbamazepine 200 mg PO QHS 03/01/19 [History Last Taken 12/05/20] methylphenidate HCl 20 mg PO BID 03/01/19 [History Last Taken 12/05/20] nadolol 40 mg PO DAILY 03/01/19 [History Last Taken 12/05/20] paroxetine HCl [Paxil] 40 mg PO DAILY 03/01/19 [History Last Taken 12/05/20] loperamide 2 mg PO Q4H PRN PRN cap 10/08/19 [Rx Last Taken 09/26/20] insulin regular hum U-500 conc 85 units SQ DINNER 03/22/20 [History Last Taken 12/05/20] levocetirizine 5 mg PO QHS 03/22/20 [History Last Taken 12/05/20] montelukast 10 mg PO DAILY 03/22/20 [History Last Taken 12/05/20] nystatin 1 applic TOPICAL BID 03/22/20 [History Last Taken 2 Days Ago ~12/04/20] potassium chloride 10 meq PO DAILYCM 03/22/20 [History Last Taken 12/05/20] insulin regular hum U-500 conc 95 units SQ BREAKFAST 08/12/20 [History Last Taken 12/05/20] rosuvastatin 20 mg PO QHS 12/06/20 [History Last Taken 12/05/20] Allergy/AdvReac Type Severity Reaction Status Date / Time adhesive tape Allergy tears skin Verified 12/06/20 16:35 cefadroxil [From Duricef] Allergy Unknown Verified 09/27/20 15:07 gluten Allergy celiac Verified 12/06/20 16:35 disease mesalamine [From Asacol] Allergy Unknown Verified 09/27/20 15:07 omalizumab [From Xolair] Allergy Unknown Verified 09/27/20 15:07 Sulfa (Sulfonamide Allergy swelling Verified 12/06/20 16:35 Antibiotics) as an infant oxycodone AdvReac Vomiting Verified 09/27/20 15:07 Surgical History History of mastectomy History of partial hysterectomy Hx of bilateral cataract extraction Hx of carpal tunnel repair Social History Smoking Status: Former smoker ROS ROS ED Constitutional Constitutional ED: Denies chills or fever(s) Eyes Eyes: Denies change in vision ENT ENT ED: Denies epistaxis or rhinorrhea Cardiovascular Cardiovascular: Denies chest pain or palpitations Respiratory/Chest Respiratory/Chest: Reports cough, dyspnea and dyspnea on exertion; Denies sputum Gastrointestinal Gastrointestinal: Denies abdominal pain, diarrhea, nausea or vomiting Genitourinary Genitourinary ED: Denies dysuria, hematuria or urinary frequency Musculoskeletal Musculoskeletal: Denies back pain or neck pain Integumentary Denies rash Neurologic Neurologic: Denies dizziness, headache(s) or weakness EXAM Physical Exam Const Vital Signs: 12/06/20 13:01 12/06/20 13:05 12/06/20 13:45 Temperature 99.6 F H 99.6 F H Temperature Source Oral Oral Pulse Rate 94 94 88 Respiratory Rate 18 18 27 H Respiratory Effort Short of Breath Labored Accessory Muscle Use Short of Breath Labored Accessory Muscle Use Blood Pressure 179/85 H 179/85 H Blood Pressure Mean 116 116 Blood Pressure Source Blood Pressure Position Blood Pressure Location Pulse Ox 89 89 93 Oxygen Delivery Method Room Air Nasal Cannula Nasal Cannula Oxygen Flow Rate (L/min) 2 4 12/06/20 14:05 12/06/20 14:26 12/06/20 15:29 Temperature 99 F Temperature Source Temporal Pulse Rate 83 87 Respiratory Rate 17 16 Respiratory Effort Blood Pressure 141/93 H Blood Pressure Mean 109 Blood Pressure Source Blood Pressure Position Blood Pressure Location Pulse Ox 95 96 93 Oxygen Delivery Method Nasal Cannula Nasal Cannula Nasal Cannula Oxygen Flow Rate (L/min) 2 4 2 12/06/20 15:38 12/06/20 16:27 Temperature 99 F 97.3 F L Temperature Source Temporal Oral Pulse Rate 85 86 Respiratory Rate 22 H 20 H Respiratory Effort Blood Pressure 104/92 H 174/67 H Blood Pressure Mean 96 102 Blood Pressure Source Monitor Blood Pressure Position Semi-Fowlers Blood Pressure Location Left Forearm Pulse Ox 99 99 Oxygen Delivery Method Nasal Cannula Nasal Cannula Oxygen Flow Rate (L/min) 2 2 Positive well nourished and well developed General Appearance ED: well developed HEENT Reports normocephalic, head/scalp atraumatic and moist mucous membranes Eyes PERRL and EOMs intact bilaterally Neck supple Chest Wall inspection of chest normal Resp Resp Narrative: Increased work of breathing, tachypneic. Able speak in complete sentences. Accessory muscle use present. Auscultation: wheezes; Negative for rales or rhonchi Cardio regular rate, regular rhythm and no murmurs GI normal to inspection, nondistended, normoactive bowel sounds and non-tender Palpation: soft; Negative for guarding or rebound tenderness present Extremity normal to inspection General Extremety ED: Negative for edema or tenderness General Extremity: Negative for edema Neuro CN's II-XII intact bilaterally and no sensory deficits noted Sensorium / Orientation: alert Motor Exam: strength 5/5 throughout Psych mental status grossly normal Skin no rashes or lesions noted MDM MDM MDM Narrative Medical decision making narrative: Patient presents to the emergency department for shortness of breath. She does have a history of asthma. She has had many episodes like this before in the past. On arrival to the emergency department she is satting in the high 80s. She does have increased work of breathing with wheezing. She is given a DuoNeb breathing treatment. Will check x-ray, basic lab work, EKG. On reexamination patient resting more comfortably. She does feel better. Satting high 90s on her baseline oxygen currently. We will ambulate the patient to make sure she does not desaturate. Rest of her work-up did not reveal any significant acute abnormality. She does not have a high white blood cell count. Troponin within normal limits. Her glucose is mildly elevated. No other electrolyte disturbance. During attempt to ambulate patient on her baseline oxygen she desatted to 88% to became very symptomatic. She could not make it across the room. She is trying to catch her breath again. Given the symptoms we will give another breathing treatment start steroids and start azithromycin. We will plan on admission to the hospital for further evaluation and management. Patient also stating that she is worried about using her home BiPAP because there is a recall with the foam coming off. Lab Data Labs: Laboratory Results - last 24 hr 12/06/20 12/06/20 12/06/20 13:10 13:10 13:10 WBC 6.8 RBC 4.73 Hgb 13.0 Hct 40.4 MCV 85.4 MCH 27.5 MCHC 32.2 RDW Std Deviation 44.0 H RDW Coeff of Aniceto 14.2 Plt Count 189 MPV 10.5 Immature Gran % (Auto) 0.300 Neut % (Auto) 54.3 Lymph % (Auto) 25.4 Henry % (Auto) 6.9 Eos % (Auto) 11.9 H Baso % (Auto) 1.2 H Absolute Neuts (auto) 3.7 Absolute Lymphs (auto) 1.73 Nucleated RBC % 0 Sodium 137 Potassium 4.0 Chloride 103 Carbon Dioxide 27.0 Anion Gap 7 BUN 10 Creatinine 0.82 Estim Creat Clear Calc 49.79 Est GFR (MDRD) Af Amer 88 Est GFR (MDRD) Non-Af 73 BUN/Creatinine Ratio 12.2 Glucose 225 H Calcium 9.3 Total Bilirubin 0.50 AST 60 H ALT 47 Alkaline Phosphatase 100 Troponin I High Sens 11.9 B-Natriuretic Peptide 12.8 Total Protein 7.2 Albumin 3.4 Globulin 3.8 Albumin/Globulin Ratio 0.9 Radiography Diagnostic Testing: Radiology Impression Chest X-Ray 12/06/20 13:30 IMPRESSION: Stable examination. No acute abnormality is seen. Electronically Signed: Salazar Garcia MD at 14:28 EDT , Service support , Single view portable x-ray interpreted by myself. Clear lung holcomb. No significant pulmonary edema. No pleural effusions. Normal cardiac silhouette. Normal mediastinum. Agree with radiologist interpretation. EKG Initial EKG: Attestation: I personally reviewed and interpreted this EKG as follows: (Rate of 89 bpm and normal sinus rhythm. Normal intervals. Left axis deviation. No significant ST elevations or depressions. No T wave abnormalities.) Discharge Plan Dx/Rx/DC Orders Clinical Impression: Asthma exacerbation, Hypoxia Disposition Disposition: Acute Care Hospital [facility] Discharge Date/Time: 12/06/20 16:13
[2020-12-06 13:46] LABS: Absolute Lymphocyte Count 1.73 X10^3/uL (0.83-4.51); Absolute Neutrophil Count 3.7 X10^3/uL (2.0-7.7); Basophil# 0.08 X10^3/uL; Basophil% 1.2 % (0-1); Eosinophil# 0.81 X10^3/uL; Eosinophils% 11.9 % (0-5); Hematocrit 40.4 % (37-47); Lymphocyte # 1.73 X10^3/ul (0.83-4.51); Lymphocyte % 25.4 % (19-41); Mean Corp Hgb Conc 32.2 g/dL (32-36); Mean Corpuscular Hgb 27.5 pg (27.0-32.0); Mean Corpuscular Volume 85.4 fL (81-99); Mean Platelet Vol. 10.5 fl (6.2-12.0); Monocyte# 0.47 X10^3/uL; Monocyte% 6.9 % (0-10); NRBC Flagged by Analyzer 0 % (0-5); Neutrophil # 3.71 X10^3/uL (2.7-7.7); Neutrophil % 54.3 % (47-70); Platelet Count 189 K/mm3 (150-450); RBC Distribution Width CV 14.2 % (11.6-14.6); Red Blood Count 4.73 M/mm3 (4.2-5.4); White Blood Count 6.8 K/mm3 (4.4-11.0)
[2020-12-06 14:03] LABS: ALB/GLOB Ratio 0.9 RATIO (0.9-2.4); AST(SGOT) 60 U/L (15-37); Alanine Aminotransfer ALT/SGPT 47 U/L (13-56); Albumin, Serum 3.4 g/dL (3.2-5.0); Alkaline Phosphatase 100 U/L (45-117); Anion Gap 7 (5-15); BUN 10 mg/dL (7-18); BUN/Creat Ratio 12.2 RATIO (10-20); Calcium,Total 9.3 mg/dL (8.5-10.1); Chloride 103 mmol/L (98-107); Creatinine, Serum 0.82 mg/dL (0.55-1.02); EST Glomerular Filtration Rate 73 mL/min (>60); Est Glom Filt Rate - Afr Amer 88 mL/min (>60); Estimated Creatinine Clearance 49.79 ml/min; Globulin 3.8 g/dL (2.2-4.2); Glucose 225 mg/dL (74-106); Protein, Total 7.2 g/dL (6.4-8.2); Sodium Level 137 mmol/L (136-145); Troponin-I HS 11.9 pg/mL (3.0-53.7)
[2020-12-06 14:12] LABS: BNP,B-Type NATRIURETIC PEPTIDE 12.8 pg/mL (0-100)
--- NOTE | 2020-12-06 14:55 | NURSING ---
DR MELVIN FOR DR OSORIO
[2020-12-06] MEDS: MethylPREDNISolone 125 MG/2 ML Vial IV (15:42)
--- NOTE | 2020-12-06 16:42 | HP.PCM.HOS_ITS ---
HPI - General General Date of Admission: 12/06/20 Date of Service: 12/06/20 Chief Complaint: dyspnea HPI Narrative ALESSANDRO GUARDADO, is a 75 F who presents with shortness of breath. Patient was admitted in September for an acute exacerbation of asthma at that time and was discharged on September 30. Patient was discharged with oxygen. Patient been doing well up until the past few days where she has been more short of breath. Patient was 89% on 2 L and her oxygen was increased to 4 L or her pulse ox has been in mid 90 range. Patient feels that this is similar to her prior episodes of asthma exacerbation. She has been coughing but it has not been nonproductive. No fever chills. She has been vaccinated against COVID-19. [facility] Medical History Anxiety Asthma Breast cancer Depression Diabetes GERD (gastroesophageal reflux disease) Hypertension Migraines Sleep apnea Home Medications cholecalciferol (vitamin D3) 50,000 unit PO SUWE@0800 06/01/17 [History Last Taken 12/04/20] pramipexole 0.5 mg PO QHS 06/01/17 [History Last Taken 12/05/20] albuterol sulfate 2.5 mg INHALATION Q2H PRN PRN #1 box 11/26/17 [Rx Last Taken 12/05/20] albuterol sulfate [ProAir HFA] 2 puff INHALATION Q6H PRN PRN 03/25/18 [History Last Taken 12/05/20] budesonide [Rhinocort Allergy] 2 puff NARES DAILY 06/12/18 [History Last Taken 09/26/20] carbamazepine 200 mg PO QHS 03/01/19 [History Last Taken 12/05/20] methylphenidate HCl 20 mg PO BID 03/01/19 [History Last Taken 12/05/20] nadolol 40 mg PO DAILY 03/01/19 [History Last Taken 12/05/20] paroxetine HCl [Paxil] 40 mg PO DAILY 03/01/19 [History Last Taken 12/05/20] loperamide 2 mg PO Q4H PRN PRN cap 10/08/19 [Rx Last Taken 09/26/20] insulin regular hum U-500 conc 85 units SQ DINNER 03/22/20 [History Last Taken 12/05/20] levocetirizine 5 mg PO QHS 03/22/20 [History Last Taken 12/05/20] montelukast 10 mg PO DAILY 03/22/20 [History Last Taken 12/05/20] nystatin 1 applic TOPICAL BID 03/22/20 [History Last Taken 2 Days Ago ~12/04/20] potassium chloride 10 meq PO DAILYCM 03/22/20 [History Last Taken 12/05/20] insulin regular hum U-500 conc 95 units SQ BREAKFAST 08/12/20 [History Last Taken 12/05/20] rosuvastatin 20 mg PO QHS 12/06/20 [History Last Taken 12/05/20] Allergy/AdvReac Type Severity Reaction Status Date / Time adhesive tape Allergy tears skin Verified 12/06/20 16:35 cefadroxil [From Duricef] Allergy Unknown Verified 09/27/20 15:07 gluten Allergy celiac Verified 12/06/20 16:35 disease mesalamine [From Asacol] Allergy Unknown Verified 09/27/20 15:07 omalizumab [From Xolair] Allergy Unknown Verified 09/27/20 15:07 Sulfa (Sulfonamide Allergy swelling Verified 12/06/20 16:35 Antibiotics) as an oxycodone AdvReac Vomiting Verified 09/27/20 15:07 Surgical History History of mastectomy History of partial hysterectomy Hx of bilateral cataract extraction Hx of carpal tunnel repair Social History Smoking Status: Former smoker ROS ROS Narrative All review of systems were negative except as mentioned above in the history of present illness and the other review of systems. Vital Signs Vital Signs Vital Signs: 12/06/20 13:01 12/06/20 13:05 12/06/20 13:45 Temperature 37.6 C H 37.6 C H Temperature Source Oral Oral Pulse Rate 94 94 88 Respiratory Rate 18 18 27 H Respiratory Effort Short of Breath Labored Accessory Muscle Use Short of Breath Labored Accessory Muscle Use Blood Pressure 179/85 H 179/85 H Blood Pressure Mean 116 116 Blood Pressure Source Blood Pressure Position Blood Pressure Location Pulse Ox 89 89 93 Oxygen Delivery Method Room Air Nasal Cannula Nasal Cannula Oxygen Flow Rate (L/min) 2 4 12/06/20 14:05 12/06/20 14:26 12/06/20 15:29 Temperature 37.2 C Temperature Source Temporal Pulse Rate 83 87 Respiratory Rate 17 16 Respiratory Effort Blood Pressure 141/93 H Blood Pressure Mean 109 Blood Pressure Source Blood Pressure Position Blood Pressure Location Pulse Ox 95 96 93 Oxygen Delivery Method Nasal Cannula Nasal Cannula Nasal Cannula Oxygen Flow Rate (L/min) 2 4 2 12/06/20 15:38 12/06/20 16:27 Temperature 37.2 C 36.3 C L Temperature Source Temporal Oral Pulse Rate 85 86 Respiratory Rate 22 H 20 H Respiratory Effort Blood Pressure 104/92 H 174/67 H Blood Pressure Mean 96 102 Blood Pressure Source Monitor Blood Pressure Position Semi-Fowlers Blood Pressure Location Left Forearm Pulse Ox 99 99 Oxygen Delivery Method Nasal Cannula Nasal Cannula Oxygen Flow Rate (L/min) 2 2 Weight Weight: 140.977 kg Body Mass Index (BMI) 55.0 Physical Exam Const alert HEENT normocephalic Resp normal respiratory effort Resp Narrative: Bilateral faint wheezing Cardio regular rate, regular rhythm, S1 normal heart sound and S2 normal heart sound GI normal to inspection, nondistended, normoactive bowel sounds, soft to palpation and non-distended GI Narrative: Obese Extremity normal to inspection Neuro Sensorium / Orientation: awake and alert Psych affect normal Results Lab / Micro Data Attestation: I reviewed the patient's lab results. Lab results narrative: Chest x-ray personally reviewed and showed normal airways with no infiltrate. Result Diagrams: 12/06/20 13:10 12/06/20 13:10 Labs: Laboratory Results - last 24 hr 12/06/20 12/06/20 12/06/20 13:10 13:10 13:10 WBC 6.8 RBC 4.73 Hgb 13.0 Hct 40.4 MCV 85.4 MCH 27.5 MCHC 32.2 RDW Std Deviation 44.0 H RDW Coeff of Aniceto 14.2 Plt Count 189 MPV 10.5 Immature Gran % (Auto) 0.300 Neut % (Auto) 54.3 Lymph % (Auto) 25.4 Noble % (Auto) 6.9 Eos % (Auto) 11.9 H Baso % (Auto) 1.2 H Absolute Neuts (auto) 3.7 Absolute Lymphs (auto) 1.73 Nucleated RBC % 0 Sodium 137 Potassium 4.0 Chloride 103 Carbon Dioxide 27.0 Anion Gap 7 BUN 10 Creatinine 0.82 Estim Creat Clear Calc 49.79 Est GFR (MDRD) Af Amer 88 Est GFR (MDRD) Non-Af 73 BUN/Creatinine Ratio 12.2 Glucose 225 H Calcium 9.3 Total Bilirubin 0.50 AST 60 H ALT 47 Alkaline Phosphatase 100 Troponin I High Sens 11.9 B-Natriuretic Peptide 12.8 Total Protein 7.2 Albumin 3.4 Globulin 3.8 Albumin/Globulin Ratio 0.9 Micro: Microbiology 12/06/20 14:10 SARS-CoV-2 Antigen (Rapid) - Final Mucosa - Nose Radiology Impression Chest X-Ray 12/06/20 13:30 IMPRESSION: Stable examination. No acute abnormality is seen. Electronically Signed: Salazar Garcia MD at 14:28 EDT , Service support , Assessment & Plan Assessment/Plan (1) Asthma: QUALIFIERS: Asthma severity: unspecified severity Asthma complication type: unspecified Asthma persistence: unspecified Qualified Code(s): J45.909 - Unspecified asthma, uncomplicated PLAN: 1. Acute exacerbation of asthma * No clear etiology. Patient was negative for COVID-19 but has also been vaccinated for COVID-19 * Continue with bronchodilators as well as methylprednisolone * Hold off on any additional antibiotics and appreciate any infiltrate nor is the patient coughing up any sputum at this time 2. Diabetes mellitus type 2 * Continue with insulin U500 as well as sliding scale insulin * Would anticipate worsening with the steroids 3. VTE prophylaxis with enoxaparin 4. Advanced care planning: Patient wishes to be full CODE STATUS. Charges/Coding Visit Charges OBSV E&M: 53699 Initial observation care L3
[2020-12-06] MEDS: Insulin Lispro 100 UNIT/ML INSULN.PEN SC (17:13)
[2020-12-06] MEDS: Insulin U-500 UNITS/ML PEN 85 UNITS SC (17:37)
[2020-12-06] MEDS: Acetaminophen 325 MG Tablet 650 MG PO (18:23)
[2020-12-06 18:36] LABS: Bedside Glucose 204 mg/dL (70-110)
[2020-12-06] MEDS: Pramipexole Di-HCl 0.5 MG Tablet PO (22:02)
[2020-12-06] MEDS: guaiFENesin 600 MG Tablet PO (22:02)
[2020-12-06] MEDS: Loratadine 10 MG Tablet PO (22:02)
[2020-12-06] MEDS: carBAMazepine 200 MG Tablet PO (22:02)
[2020-12-06] MEDS: Atorvastatin Calcium 40 MG Tablet PO (22:02)
[2020-12-06] MEDS: 0.9% Saline Lock 10 ML Syringe IV (22:07)
[2020-12-06] MEDS: Nystatin Powder 15gm Bottle 1 APPLIC TOPICAL (22:10)
[2020-12-07] VITALS (12 sets, daily range): BP systolic 127–135; BP diastolic 43–76; PULSE 84–102; RESP 12–24; TEMP 36.8; O2SAT 91–98
[2020-12-07] MEDS: Ipratropium/Albuterol Sulfate 3 ML AMPUL.NEB INHALATION ×3 (03:57→11:06)
[2020-12-07 06:13] LABS: Absolute Lymphocyte Count 0.68 X10^3/uL (0.83-4.51); Absolute Neutrophil Count 7.2 X10^3/uL (2.0-7.7); Basophil# 0.02 X10^3/uL; Basophil% 0.2 % (0-1); Eosinophil# 0.01 X10^3/uL; Eosinophils% 0.1 % (0-5); Hematocrit 36.3 % (37-47); Hemoglobin 11.6 g/dL (12.0-15.0); Lymphocyte # 0.68 X10^3/ul (0.83-4.51); Lymphocyte % 8.2 % (19-41); Mean Corpuscular Hgb 27.5 pg (27.0-32.0); Mean Platelet Vol. 10.1 fl (6.2-12.0); Monocyte% 3.6 % (0-10); NRBC Flagged by Analyzer 0 % (0-5); Neutrophil # 7.21 X10^3/uL (2.7-7.7); Neutrophil % 87.3 % (47-70); Platelet Count 146 K/mm3 (150-450); RBC Distribution Width CV 14.2 % (11.6-14.6); RBC Distribution Width SD 44.1 fl (35.1-43.9); Red Blood Count 4.22 M/mm3 (4.2-5.4); White Blood Count 8.3 K/mm3 (4.4-11.0)
[2020-12-07 06:35] LABS: Anion Gap 8 (5-15); BUN 16 mg/dL (7-18); Calcium,Total 8.9 mg/dL (8.5-10.1); Chloride 102 mmol/L (98-107); Creatinine, Serum 0.89 mg/dL (0.55-1.02); EST Glomerular Filtration Rate 66 mL/min (>60); Est Glom Filt Rate - Afr Amer 80 mL/min (>60); Estimated Creatinine Clearance 45.87 ml/min; Glucose 351 mg/dL (74-106); Potassium 4.2 mmol/L (3.5-5.1); Sodium Level 136 mmol/L (136-145)
[2020-12-07] MEDS: Insulin Lispro 100 UNIT/ML INSULN.PEN SC ×2 (06:57→11:32)
[2020-12-07 07:06] LABS: Bedside Glucose 310 mg/dL (70-110)
[2020-12-07] MEDS: Nystatin Powder 15gm Bottle 1 APPLIC TOPICAL (08:39)
[2020-12-07] MEDS: guaiFENesin 600 MG Tablet PO (08:39)
[2020-12-07] MEDS: Enoxaparin 40 MG/0.4 ML Syringe SC (08:39)
[2020-12-07] MEDS: Potassium Chloride Oral Tablet 10 MEQ PO (08:40)
[2020-12-07] MEDS: Nadolol 40 MG Tablet PO (08:40)
[2020-12-07] MEDS: Montelukast 10 MG Tablet PO (08:41)
[2020-12-07] MEDS: Methylphenidate HCl 5 MG Tablet 20 MG PO (08:44)
[2020-12-07] MEDS: Acetaminophen 325 MG Tablet 650 MG PO (09:42)
[2020-12-07] MEDS: Insulin U-500 UNITS/ML PEN 95 UNITS SC (10:40)
[2020-12-07 12:00] LABS: Bedside Glucose 399 mg/dL (70-110)
--- NOTE | 2020-12-07 12:56 | PCM.DC ---
Discharge Instructions Diet Discharge Diet: Carb Control Diet Activity Discharge Activity: Return to Normal Activity Dressing / Incision Call your doctor if you observe: Shortness of breath, Dizziness and Chest pain Follow Up Care Test Results: Test results from this visit will be discussed in further detail at your follow-up appointment, if applicable. Discharge Plan Admission Admit Date/Time: 12/06/20 16:40 Primary Reason for Your Visit: Asthma Attending Provider: Moris Camejo Primary Care Provider: Senait Jay Discharge Orders/Prescriptions Prescriptions: New prednisone 10 mg tablet See Taper mg PO DAILY Qty: 30 RF: 0 Continued pramipexole 0.5 MG tablet 0.5 mg PO QHS RF: 0 cholecalciferol (vitamin D3) 50,000 UNIT capsule 50,000 unit PO SUWE@0800 RF: 0 albuterol sulfate 2.5 MG/3 ML solution for nebulization 2.5 mg INHALATION Q2H PRN PRN (Reason: Dyspnea, wheezing) Qty: 1 RF: 0 albuterol sulfate [ProAir HFA] 1 PUFF inhaler 2 puff inhalation Q6H PRN PRN (Reason: Dyspnea/Wheezing/Sob) RF: 0 budesonide [Rhinocort Allergy] 8.43 ML spray,non-aerosol 2 puff NARES DAILY RF: 0 carbamazepine 200 MG tablet 200 mg PO QHS RF: 0 methylphenidate HCl 20 MG tablet extended release 20 mg PO BID RF: 0 nadolol 40 MG tablet 40 mg PO DAILY RF: 0 paroxetine HCl [Paxil] 40 MG tablet 40 mg PO DAILY RF: 0 loperamide 2 MG capsule 2 mg PO Q4H PRN PRN (Reason: DIARRHEA) RF: 0 montelukast 10 MG tablet 10 mg PO DAILY RF: 0 levocetirizine 5 MG tablet 5 mg PO QHS RF: 0 nystatin 1 APPLIC bottle 1 applic TOPICAL BID RF: 0 potassium chloride 10 MEQ tablet 10 meq PO DAILYCM RF: 0 insulin regular hum U-500 conc 500 UNITS/ML insulin pen 85 units SQ DINNER RF: 0 insulin regular hum U-500 conc 500 UNITS/ML insulin pen 95 units SQ BREAKFAST RF: 0 rosuvastatin 20 mg tablet 20 mg PO QHS RF: 0 Referrals / Follow Up: Senait Jay MD [Primary Care Provider] - In 1 Week Dre Watters MD [STAFF PHYSICIAN] - In 1 Week Disposition Disposition (needs filled in before D/C Order can be placed): Home, Self Care
--- NOTE | 2020-12-07 13:33 | PCM.DC.SUM ---
Documented by User: Jenna Cabrera NP, [employer] 12/07/20 13:45 Providers Date of Admission: 12/06/20 Date of Discharge: 12/07/20 Primary Care Physician: Dr. Senait Jay MD Reason For Visit: HYPOXIA, ASTHMA Diagnosis Discharge Diagnosis (1) Asthma: Status: Chronic Code(s): J45.909 - Unspecified asthma, uncomplicated Qualifiers: Asthma complication type: unspecified Asthma persistence: unspecified Asthma severity: unspecified severity Qualified Code(s): J45.909 - Unspecified asthma, uncomplicated Medications at Discharge Home Medications cholecalciferol (vitamin D3) 50,000 unit PO SUWE@0800 06/01/17 pramipexole 0.5 mg PO QHS 06/01/17 albuterol sulfate 2.5 mg INHALATION Q2H PRN PRN #1 box 11/26/17 albuterol sulfate [ProAir HFA] 2 puff INHALATION Q6H PRN PRN 03/25/18 budesonide [Rhinocort Allergy] 2 puff NARES DAILY 06/12/18 carbamazepine 200 mg PO QHS 03/01/19 methylphenidate HCl 20 mg PO BID 03/01/19 nadolol 40 mg PO DAILY 03/01/19 paroxetine HCl [Paxil] 40 mg PO DAILY 03/01/19 loperamide 2 mg PO Q4H PRN PRN cap 10/08/19 insulin regular hum U-500 conc 85 units SQ DINNER 03/22/20 levocetirizine 5 mg PO QHS 03/22/20 montelukast 10 mg PO DAILY 03/22/20 nystatin 1 applic TOPICAL BID 03/22/20 potassium chloride 10 meq PO DAILYCM 03/22/20 insulin regular hum U-500 conc 95 units SQ BREAKFAST 08/12/20 rosuvastatin 20 mg PO QHS 12/06/20 prednisone See Taper PO DAILY #30 tab 12/07/20 Hospital Course Operations None Procedures None Summary of Care Provided Minutes Spent on Discharge: 35 Hospital Course: Patient is a 75-year-old female admitted 12/06/2020 due to shortness of breath. 1. Acute asthma exacerbation with chronic hypoxic respiratory failure-patient has been vaccinated for Covid, Covid PCR negative. Follows with Dr. Watters. IV Solu-Medrol during admission. Prednisone taper at discharge. On baseline home O2 requirements. Follow-up with pulmonary medicine within 1 week. 2. Right lower lobe nodule-patient reports undergoing outpatient PET scan and nodule is concerning for cancer. She was referred to [facility] for further evaluation which she has not undergone yet. Continue outpatient follow-up. 3. Type 2 diabetes mellitus-Continue home insulin regimen. 4. Hypertension-continue nadolol regimen. 5. Allergic rhinitis-continue Singulair, levocetirizine regimen. 6. Anxiety/depression/ADD/bipolar-on paroxetine, carbamazepine. 7. Morbid obesity-encouraged diet lifestyle modifications. 8. Celiac disease-on gluten-free diet. 9. DORY-on BIPAP nightly and as needed. 10. Restless leg syndrome-on Mirapex. 11. Morbid obesity-encouraged diet and lifestyle modifications. Patient seen and examined prior to discharge. Physical assessment as noted below. Patient is stable for discharge with follow up recommendations as noted above. This patient was seen by HIRAL Alarcon under the supervision of Dr. Camejo. Physical Exam Const alert, oriented x3 and no apparent distress Orientation / Consciousness: awake, oriented to person, oriented to place and oriented to time HEENT normocephalic and moist oral mucous membranes Eyes PERRL, EOMs intact bilaterally and conjunctivae normal Neck no lymphadenopathy Resp Auscultation: wheezes and diminished lung sounds Cardio regular rate, regular rhythm and no murmurs Peripheral Pulses: pulses 2+ throughout GI normal to inspection, nondistended, normoactive bowel sounds, non-tender and non-distended Extremity normal to inspection Skin no rashes or lesions noted Lesions: no lesions Rashes: no rashes Trauma: no lacerations or abrasions Neuro CN's II-XII intact bilaterally, no focal motor deficits, no sensory deficits noted and deep tendon reflexes 2+ bilaterally Psych mental status grossly normal and affect normal Weight / BMI Weight Weight: 310 lb 12.817 oz Body Mass Index (BMI) 55.0 ABG / Lab / Microbiology Data Result Diagrams: 12/07/20 05:51 12/07/20 05:51 Laboratory: Laboratory Results - last 24 hr 12/06/20 12/06/20 12/06/20 13:10 13:10 13:10 WBC 6.8 RBC 4.73 Hgb 13.0 Hct 40.4 MCV 85.4 MCH 27.5 MCHC 32.2 RDW Std Deviation 44.0 H RDW Coeff of Aniceto 14.2 Plt Count 189 MPV 10.5 Immature Gran % (Auto) 0.300 Neut % (Auto) 54.3 Lymph % (Auto) 25.4 Pike % (Auto) 6.9 Eos % (Auto) 11.9 H Baso % (Auto) 1.2 H Absolute Neuts (auto) 3.7 Absolute Lymphs (auto) 1.73 Nucleated RBC % 0 Sodium 137 Potassium 4.0 Chloride 103 Carbon Dioxide 27.0 Anion Gap 7 BUN 10 Creatinine 0.82 Estim Creat Clear Calc 49.79 Est GFR (MDRD) Af Amer 88 Est GFR (MDRD) Non-Af 73 BUN/Creatinine Ratio 12.2 Glucose 225 H Calcium 9.3 Total Bilirubin 0.50 AST 60 H ALT 47 Alkaline Phosphatase 100 Troponin I High Sens 11.9 B-Natriuretic Peptide 12.8 Total Protein 7.2 Albumin 3.4 Globulin 3.8 Albumin/Globulin Ratio 0.9 POC Glucose 12/06/20 12/07/20 12/07/20 17:13 05:51 05:51 WBC 8.3 RBC 4.22 Hgb 11.6 L Hct 36.3 L MCV 86.0 MCH 27.5 MCHC 32.0 RDW Std Deviation 44.1 H RDW Coeff of Aniceto 14.2 Plt Count 146 L MPV 10.1 Immature Gran % (Auto) 0.600 Neut % (Auto) 87.3 H Lymph % (Auto) 8.2 L Pike % (Auto) 3.6 Eos % (Auto) 0.1 Baso % (Auto) 0.2 Absolute Neuts (auto) 7.2 Absolute Lymphs (auto) 0.68 L Nucleated RBC % 0 Sodium 136 Potassium 4.2 Chloride 102 Carbon Dioxide 26.0 Anion Gap 8 BUN 16 Creatinine 0.89 Estim Creat Clear Calc 45.87 Est GFR (MDRD) Af Amer 80 Est GFR (MDRD) Non-Af 66 BUN/Creatinine Ratio 18.0 Glucose 351 H Calcium 8.9 Total Bilirubin AST ALT Alkaline Phosphatase Troponin I High Sens B-Natriuretic Peptide Total Protein Albumin Globulin Albumin/Globulin Ratio POC Glucose 204 H 12/07/20 12/07/20 06:55 11:31 WBC RBC Hgb Hct MCV MCH MCHC RDW Std Deviation RDW Coeff of Aniceto Plt Count MPV Immature Gran % (Auto) Neut % (Auto) Lymph % (Auto) Pike % (Auto) Eos % (Auto) Baso % (Auto) Absolute Neuts (auto) Absolute Lymphs (auto) Nucleated RBC % Sodium Potassium Chloride Carbon Dioxide Anion Gap BUN Creatinine Estim Creat Clear Calc Est GFR (MDRD) Af Amer Est GFR (MDRD) Non-Af BUN/Creatinine Ratio Glucose Calcium Total Bilirubin AST ALT Alkaline Phosphatase Troponin I High Sens B-Natriuretic Peptide Total Protein Albumin Globulin Albumin/Globulin Ratio POC Glucose 310 H 399 H Microbiology: Microbiology 12/06/20 14:10 SARS-CoV-2 Antigen (Rapid) - Final Mucosa - Nose Microbiology 12/06/20 14:10 Mucosa - Nose SARS-CoV-2 Antigen (Rapid) - Final Radiography Diagnostic Testing: Radiology Impression Chest X-Ray 12/06/20 13:30 IMPRESSION: Stable examination. No acute abnormality is seen. Electronically Signed: Salazar Garcia MD at 14:28 EDT , Service support , D/C Instructions Discharge Diet: Carb Control Diet Call your doctor if you observe: Shortness of breath, Dizziness and Chest pain Meaningful Use Info Meaningful Use Diagnoses (Choose all that apply): None applicable Discharge Plan Admission Admit Date/Time: 12/06/20 16:40 Primary Reason for Your Visit: Asthma Attending Provider: Moris Camejo Primary Care Provider: Senait Jay Discharge Orders/Prescriptions Prescriptions: New prednisone 10 mg tablet See Taper mg PO DAILY Qty: 30 RF: 0 Continued pramipexole 0.5 MG tablet 0.5 mg PO QHS RF: 0 cholecalciferol (vitamin D3) 50,000 UNIT capsule 50,000 unit PO SUWE@0800 RF: 0 albuterol sulfate 2.5 MG/3 ML solution for nebulization 2.5 mg INHALATION Q2H PRN PRN (Reason: Dyspnea, wheezing) Qty: 1 RF: 0 albuterol sulfate [ProAir HFA] 1 PUFF inhaler 2 puff inhalation Q6H PRN PRN (Reason: Dyspnea/Wheezing/Sob) RF: 0 budesonide [Rhinocort Allergy] 8.43 ML spray,non-aerosol 2 puff NARES DAILY RF: 0 carbamazepine 200 MG tablet 200 mg PO QHS RF: 0 methylphenidate HCl 20 MG tablet extended release 20 mg PO BID RF: 0 nadolol 40 MG tablet 40 mg PO DAILY RF: 0 paroxetine HCl [Paxil] 40 MG tablet 40 mg PO DAILY RF: 0 loperamide 2 MG capsule 2 mg PO Q4H PRN PRN (Reason: DIARRHEA) RF: 0 montelukast 10 MG tablet 10 mg PO DAILY RF: 0 levocetirizine 5 MG tablet 5 mg PO QHS RF: 0 nystatin 1 APPLIC bottle 1 applic TOPICAL BID RF: 0 potassium chloride 10 MEQ tablet 10 meq PO DAILYCM RF: 0 insulin regular hum U-500 conc 500 UNITS/ML insulin pen 85 units SQ DINNER RF: 0 insulin regular hum U-500 conc 500 UNITS/ML insulin pen 95 units SQ BREAKFAST RF: 0 rosuvastatin 20 mg tablet 20 mg PO QHS RF: 0 Referrals / Follow Up: Senait Jay MD [Primary Care Provider] - In 1 Week Dre Watters MD [STAFF PHYSICIAN] - In 1 Week Disposition Disposition (needs filled in before D/C Order can be placed): Home, Self Care Documented by User: Dr. Moris Camejo DO 12/07/20 14:21 Providers Date of Admission: 12/06/20 Reason For Visit: HYPOXIA, ASTHMA Medications at Discharge Home Medications cholecalciferol (vitamin D3) 50,000 unit PO SUWE@0800 06/01/17 pramipexole 0.5 mg PO QHS 06/01/17 albuterol sulfate 2.5 mg INHALATION Q2H PRN PRN #1 box 11/26/17 albuterol sulfate [ProAir HFA] 2 puff INHALATION Q6H PRN PRN 03/25/18 budesonide [Rhinocort Allergy] 2 puff NARES DAILY 06/12/18 carbamazepine 200 mg PO QHS 03/01/19 methylphenidate HCl 20 mg PO BID 03/01/19 nadolol 40 mg PO DAILY 03/01/19 paroxetine HCl [Paxil] 40 mg PO DAILY 03/01/19 loperamide 2 mg PO Q4H PRN PRN cap 10/08/19 insulin regular hum U-500 conc 85 units SQ DINNER 03/22/20 levocetirizine 5 mg PO QHS 03/22/20 montelukast 10 mg PO DAILY 03/22/20 nystatin 1 applic TOPICAL BID 03/22/20 potassium chloride 10 meq PO DAILYCM 03/22/20 insulin regular hum U-500 conc 95 units SQ BREAKFAST 08/12/20 rosuvastatin 20 mg PO QHS 12/06/20 prednisone See Taper PO DAILY #30 tab 12/07/20 Hospital Course Summary of Care Provided Minutes Spent on Discharge: 32 Hospital Course: Patient presents with increasing shortness of breath. Patient was found to have acute exacerbation of asthma and a started on methylprednisolone and bronchodilators. Patient since it improved the following day to the point where she would be ready for discharge. As previously been performed patient will be discharged with prednisone taper and to follow-up with her cook vacuum kettle. Patient was ambulated on room air and was 92%. Patient already has oxygen at home. Of note, patient has her condenser up stairs attached to her BiPAP. Downstairs, patient only has oxygen tanks. Unfortunate patient does not qualify for oxygen at this home beyond what she is already receiving. Physical Exam Const alert HEENT normocephalic Resp normal respiratory effort and no use of accessory muscles Cardio regular rate, regular rhythm, S1 normal heart sound and S2 normal heart sound Psych affect normal ABG / Lab / Microbiology Data Result Diagrams: 12/07/20 05:51 12/07/20 05:51 Discharge Plan Admission Admit Date/Time: 12/06/20 16:40 Primary Reason for Your Visit: Asthma Attending Provider: Moris Camejo Primary Care Provider: eSnait Jay Discharge Orders/Prescriptions Prescriptions: New prednisone 10 mg tablet See Taper mg PO DAILY Qty: 30 RF: 0 Continued pramipexole 0.5 MG tablet 0.5 mg PO QHS RF: 0 cholecalciferol (vitamin D3) 50,000 UNIT capsule 50,000 unit PO SUWE@0800 RF: 0 albuterol sulfate 2.5 MG/3 ML solution for nebulization 2.5 mg INHALATION Q2H PRN PRN (Reason: Dyspnea, wheezing) Qty: 1 RF: 0 albuterol sulfate [ProAir HFA] 1 PUFF inhaler 2 puff inhalation Q6H PRN PRN (Reason: Dyspnea/Wheezing/Sob) RF: 0 budesonide [Rhinocort Allergy] 8.43 ML spray,non-aerosol 2 puff NARES DAILY RF: 0 carbamazepine 200 MG tablet 200 mg PO QHS RF: 0 methylphenidate HCl 20 MG tablet extended release 20 mg PO BID RF: 0 nadolol 40 MG tablet 40 mg PO DAILY RF: 0 paroxetine HCl [Paxil] 40 MG tablet 40 mg PO DAILY RF: 0 loperamide 2 MG capsule 2 mg PO Q4H PRN PRN (Reason: DIARRHEA) RF: 0 montelukast 10 MG tablet 10 mg PO DAILY RF: 0 levocetirizine 5 MG tablet 5 mg PO QHS RF: 0 nystatin 1 APPLIC bottle 1 applic TOPICAL BID RF: 0 potassium chloride 10 MEQ tablet 10 meq PO DAILYCM RF: 0 insulin regular hum U-500 conc 500 UNITS/ML insulin pen 85 units SQ DINNER RF: 0 insulin regular hum U-500 conc 500 UNITS/ML insulin pen 95 units SQ BREAKFAST RF: 0 rosuvastatin 20 mg tablet 20 mg PO QHS RF: 0 Referrals / Follow Up: Senait Jay MD [Primary Care Provider] - In 1 Week Dre Watters MD [STAFF PHYSICIAN] - In 1 Week Disposition Disposition (needs filled in before D/C Order can be placed): Home, Self Care Charges/Coding Visit Charges Inpatient E&M: 26522 Disch Hosp
== END 2020-12-07 14:41 | disposition home or self-care (01) ==
LOC: ED 14:41 → PCU 16:45
PROVIDERS: Emergency Provider Emergency Medicine; PCP Internal Medicine
DX: J45.901 Unspecified asthma with (acute) exacerbation (principal); J96.11 Chronic respiratory failure with hypoxia; R91.1 Solitary pulmonary nodule; Z79.4 Long term (current) use of insulin; E11.9 Type 2 diabetes mellitus without complications; I10 Essential (primary) hypertension; G47.33 Obstructive sleep apnea (adult) (pediatric); F41.9 Anxiety disorder, unspecified; F31.9 Bipolar disorder, unspecified; E66.01 Morbid (severe) obesity due to excess calories; K90.0 Celiac disease; G25.81 Restless legs syndrome; Z79.899 Other long term (current) drug therapy; Z68.43 Body mass index [BMI] 50.0-59.9, adult; Z99.81 Dependence on supplemental oxygen; K21.9 Gastro-esophageal reflux disease without esophagitis; Z87.891 Personal history of nicotine dependence; R06.02 Shortness of breath
CPT/HCPCS: 36415; 71045; 80048; 80053; 82962; 83880; 84484; 85025; 87426; 93005; 94002; 94003; 94640; 96365; 96366; 96372; 96375; 96376; 99218; 99251; 99285; A4216; G0378; G0463

== ENCOUNTER 2021-03-28 12:59 | Emergency (ER) | payer MEDICARE, SELFPAY ==
[2021-03-28 13:02] VITALS: BP 140/75; PULSE 90; RESP 18; TEMP 36.7; O2SAT 99; BMI 52.4
--- NOTE | 2021-03-28 13:16 | RAD_ITS ---
STUDY: X-RAY - UNILATERAL RIBS ( LEFT ) WITH CHEST REASON FOR EXAM: Female, 75 years old. Fall/injury TECHNIQUE - RIBS: 4 view(s) of the ribs. TECHNIQUE - CHEST: Single PA view of the chest. COMPARISON: Comparison is made with prior chest radiograph dated 12/06/2020. FINDINGS - RIBS: Normal visualized ribs without a demonstrated fracture. FINDINGS - CHEST: A left-sided PICC line catheter is in situ. Focal infiltrate is seen in the lateral aspect of the right upper lobe adjacent to the minor fissure. There is no demonstrated pleural abnormality. Normal size heart. Normal mediastinum and tanna. Normal visualized pulmonary arteries. Normal visualized aortic arch and descending thoracic aorta. Normal visualized thoracic spine. Normal visualized ribs, clavicles, and shoulders. There is no demonstrated abnormality of the visualized soft tissue structures of the upper abdomen. RAD/Ribs Uni Min 3V w/PA Chest IMPRESSION: RIBS: Normal x-ray examination of the ribs. CHEST: Focal infiltrate in the lateral aspect of the right upper lobe abutting the minor fissure. Electronically Signed: Salazar Garcia MD at 14:56 EDT , Service support ,
--- NOTE | 2021-03-28 13:16 | CT_ITS ---
STUDY: CT BRAIN WITHOUT CONTRAST REASON FOR EXAM: Female, 75 years old. injury/trauma RADIATION DOSAGE (If Supplied By Facility): CTDIvol = ( 44.99 ) mGy, DLP = ( 812.98 ) mGycm TECHNIQUE: Transaxial CT imaging of the brain was performed without administration of intravenous contrast material. Individualized dose optimization techniques were used for this CT. COMPARISON: Comparison is made with prior CT scan of the head dated 03/01/2019. FINDINGS: Normal soft tissue structures. Normal calvarium. There is mild cerebral atrophy with widening of the extra-axial spaces and ventricular dilatation. There are areas of decreased attenuation within the white matter tracts of the supratentorial brain, consistent with microvascular disease changes. Normal basal ganglia and thalami. Normal brainstem. Normal cerebellum. There is no intracranial hemorrhage. There are no findings of an acute ischemic infarction. Opacification of both maxillary sinuses worse on the left side. Mucosal thickening of the ethmoid sinuses. CT/Brain/Head without Contrast IMPRESSION: Chronic involutional changes of the brain. Sinusitis. Electronically Signed: Salazar Garcia MD at 14:59 EDT , Service support ,
--- NOTE | 2021-03-28 13:17 | ED.VIS.FALL ---
HPI HPI - Fall History of Present Illness Chief Complaint: Fall Informant: patient Occured/Mechanism Usually ambulates: Without assistance Pain/Injury Location: head, back Quality of Pain: Aching Current Severity: Moderate Maximum Severity: Moderate Worsened by: movement Relieved by: remaining still Associated Symptoms Associated Symptoms: Negative for Parasthesias, Weakness and Loss of consciousness Narrative Narrative: Patient states today she got out of the shower and was headed to the toilet and slipped on wet tile bathroom floor and fell near the toilet, hitting her head and the left side of her upper back. She states she had some neck discomfort but that is gone now. She denies any other injury. No loss of consciousness or amnesia. Mild headache, no nausea or vomiting. No numbness or weakness in any extremity. Currently on chemo and radiation for lung cancer. No recent illness or fevers, but states she has had a wet moist cough for a couple weeks. When asked that she feels like she has been weak and fell as a result, or just accidentally slipped, she states heavens no, I am not weak. Patient states she has been on prednisone for cough that her oncologist put her on, her last dose was yesterday and she was on it for 6 days. She states she is going to need more and is requesting a new prescription for prednisone when we discharged her because I am going to get worse without it. [facility] Medical History (Updated 03/28/21 @ 15:[address] Chirag Koehler MD) Anxiety Asthma Breast cancer Chronic respiratory failure with hypoxia Depression Diabetes Diabetes mellitus, type II GERD (gastroesophageal reflux disease) Hypertension Migraines Osteoarthritis Sleep apnea Home Medications cholecalciferol (vitamin D3) 50,000 unit PO SUWE@0800 06/01/17 [History Last Taken 12/04/20] pramipexole 0.5 mg PO QHS 06/01/17 [History Last Taken 12/05/20] albuterol sulfate 2.5 mg INHALATION Q2H PRN PRN #1 box 11/26/17 [Rx Last Taken 12/05/20] albuterol sulfate [ProAir HFA] 2 puff INHALATION Q6H PRN PRN 03/25/18 [History Last Taken 12/05/20] budesonide [Rhinocort Allergy] 2 puff NARES DAILY 06/12/18 [History Last Taken 09/26/20] carbamazepine 200 mg PO QHS 03/01/19 [History Last Taken 12/05/20] methylphenidate HCl 20 mg PO BID 03/01/19 [History Last Taken 12/05/20] nadolol 40 mg PO DAILY 03/01/19 [History Last Taken 12/05/20] paroxetine HCl [Paxil] 40 mg PO DAILY 03/01/19 [History Last Taken 12/05/20] loperamide 2 mg PO Q4H PRN PRN cap 10/08/19 [Rx Last Taken 09/26/20] insulin regular hum U-500 conc 85 units SQ DINNER 03/22/20 [History Last Taken 12/05/20] levocetirizine 5 mg PO QHS 03/22/20 [History Last Taken 12/05/20] montelukast 10 mg PO DAILY 03/22/20 [History Last Taken 12/05/20] nystatin 1 applic TOPICAL BID 03/22/20 [History Last Taken 2 Days Ago ~12/04/20] potassium chloride 10 meq PO DAILYCM 03/22/20 [History Last Taken 12/05/20] insulin regular hum U-500 conc 95 units SQ BREAKFAST 08/12/20 [History Last Taken 12/05/20] rosuvastatin 20 mg PO QHS 12/06/20 [History Last Taken 12/05/20] prednisone See Taper PO DAILY #30 tab 12/07/20 [Rx Last Taken Unknown] levofloxacin 750 mg PO DAILY #5 tab 03/28/21 [Rx Last Taken Unknown] prednisone 10 mg PO UD #18 tab 03/28/21 [Rx Last Taken Unknown] Allergy/AdvReac Type Severity Reaction Status Date / Time adhesive tape Allergy tears skin Verified 03/28/21 13:01 cefadroxil [From Duricef] Allergy Unknown Verified 03/28/21 13:01 gluten Allergy celiac Verified 03/28/21 13:01 disease mesalamine [From Asacol] Allergy Unknown Verified 03/28/21 13:01 omalizumab [From Xolair] Allergy Unknown Verified 03/28/21 13:01 Sulfa (Sulfonamide Allergy swelling Verified 03/28/21 13:01 Antibiotics) as an infant oxycodone AdvReac Vomiting Verified 03/28/21 13:01 Surgical History History of mastectomy History of partial hysterectomy Hx of bilateral cataract extraction Hx of carpal tunnel repair Social History Smoking Status: Former smoker ROS ROS ED Constitutional Constitutional ED: Denies chills or fever(s) Eyes Eyes: Denies change in vision or diplopia ENT ENT ED: Denies rhinorrhea or sore throat Cardiovascular Cardiovascular: Denies chest pain or palpitations Respiratory/Chest Respiratory/Chest: Reports cough, dyspnea and other Details: Chronic dyspnea on exertion no worse Gastrointestinal Gastrointestinal: Denies abdominal pain, diarrhea, nausea or vomiting Genitourinary Genitourinary ED: Denies dysuria or hematuria Musculoskeletal Musculoskeletal: Reports as per HPI and back pain; Denies neck pain Integumentary Denies abscess or rash Neurologic Neurologic: Reports headache(s); Denies paresthesias or weakness Psychiatric Psychiatric: Denies anxiety or suicidal thoughts EXAM Physical Exam Const Vital Signs: 03/28/21 13:02 03/28/21 13:19 Temperature 98.1 F Temperature Source Oral Pulse Rate 90 Respiratory Rate 18 Respiratory Effort Normal Non-Labored Respiratory Depth Normal Respiratory Pattern Normal Blood Pressure 140/75 H Blood Pressure Mean 96 Pulse Ox 99 Oxygen Delivery Method Nasal Cannula Nasal Cannula Oxygen Flow Rate (L/min) 2 2 Positive well nourished, well developed and obese General Appearance ED: well developed and NAD Nutritional Appearance: obese HEENT Reports TM's normal bilaterally and moist mucous membranes HEENT Narrative: Small tender contusion left high parietal scalp without crepitance or depression or break in the skin/laceration. No edmondson sign or CSF otorhinorrhea. normocephalic Eyes PERRL and EOMs intact bilaterally Neck full ROM and supple Resp normal respiratory effort and clear to auscultation bilaterally Resp Narrative: Occasional wet cough. No sputum production. Tender left thoracic wall/ribs, no crepitance, subcutaneous emphysema, step-off, flail, or obvious signs of trauma on the skin. Cardio regular rate, regular rhythm and no murmurs GI non-tender and non-distended Auscultation: normoactive bowel sounds Palpation: soft Back/Spine no CVA tenderness Back/Spine Narrative: No midline tenderness throughout the back. Tender left upper posterior ribs. General Back: other FROM Extremity normal to inspection and full ROM General Extremety ED: Negative for edema, pulses abnormal or tenderness General Extremity: Negative for edema or pulses abnormal Neuro oriented x3, CN's II-XII intact bilaterally and no sensory deficits noted Sensorium / Orientation: awake and alert Motor Exam: strength 5/5 throughout Skin no rashes or lesions noted and no wounds MDM MDM MDM Narrative Medical decision making narrative: Imaging shows no acute injuries. However she incidentally has a focal infiltrate in the right upper lobe. She was unaware of this before I told her. Cough has been going on for about 2 weeks or so, she was started on Augmentin at the beginning of it, but she had chemotherapy near then as well, and started having aggressive diarrhea so she discontinued the Augmentin on her own and she threw it away. She did not have very much of it. Then a week after the Augmentin was prescribed, her cough was worse and she was prescribed prednisone which she just finished. Therefore, we will try different antibiotic now, I will prescribe her Levaquin in addition to a prednisone taper which she is amenable to. Advised to follow up. Of note, she is not hypoxic, nor is she febrile/septic, so I do not think she needs further work-up at this time in order to be started on antibiotics and prednisone. Radiography Diagnostic Testing: Clinical Impression(s) from Imaging Studies Brain CT 03/28/21 13:16 IMPRESSION: Chronic involutional changes of the brain. Sinusitis. Electronically Signed: Salazar Garcia MD at 14:59 EDT , Service support , Ribs w/Chest X-Ray 03/28/21 13:16 IMPRESSION: RIBS: Normal x-ray examination of the ribs. CHEST: Focal infiltrate in the lateral aspect of the right upper lobe abutting the minor fissure. Electronically Signed: Salazar Garcia MD at 14:56 EDT , Service support , Discharge Plan Triage Chief Complaint: Fall ED Provider: Chirag Koehler Dx/Rx/DC Orders Clinical Impression: Pneumonia, Immunocompromised state due to drug therapy, Fall from slipping on slippery surface, Closed head injury without loss of consciousness, Back contusion Instructions: ED Head Injury (Adult), ED Pneumonia (Adult) Prescriptions: New prednisone 10 MG tablet 10 mg PO UD Qty: 18 RF: 0 levofloxacin 750 mg tablet 750 mg PO DAILY Qty: 5 RF: 0 No Action pramipexole 0.5 MG tablet 0.5 mg PO QHS RF: 0 cholecalciferol (vitamin D3) 50,000 UNIT capsule 50,000 unit PO SUWE@0800 RF: 0 albuterol sulfate 2.5 MG/3 ML solution for nebulization 2.5 mg INHALATION Q2H PRN PRN (Reason: Dyspnea, wheezing) Qty: 1 RF: 0 albuterol sulfate [ProAir HFA] 1 PUFF inhaler 2 puff inhalation Q6H PRN PRN (Reason: Dyspnea/Wheezing/Sob) RF: 0 budesonide [Rhinocort Allergy] 8.43 ML spray,non-aerosol 2 puff NARES DAILY RF: 0 carbamazepine 200 MG tablet 200 mg PO QHS RF: 0 methylphenidate HCl 20 MG tablet extended release 20 mg PO BID RF: 0 nadolol 40 MG tablet 40 mg PO DAILY RF: 0 paroxetine HCl [Paxil] 40 MG tablet 40 mg PO DAILY RF: 0 loperamide 2 MG capsule 2 mg PO Q4H PRN PRN (Reason: DIARRHEA) RF: 0 montelukast 10 MG tablet 10 mg PO DAILY RF: 0 levocetirizine 5 MG tablet 5 mg PO QHS RF: 0 nystatin 1 APPLIC bottle 1 applic TOPICAL BID RF: 0 potassium chloride 10 MEQ tablet 10 meq PO DAILYCM RF: 0 insulin regular hum U-500 conc 500 UNITS/ML insulin pen 85 units SQ DINNER RF: 0 insulin regular hum U-500 conc 500 UNITS/ML insulin pen 95 units SQ BREAKFAST RF: 0 rosuvastatin 20 mg tablet 20 mg PO QHS RF: 0 prednisone 10 mg tablet See Taper mg PO DAILY Qty: 30 RF: 0 Primary Care Provider: Senait Jay Referrals: Senait Jay MD [Primary Care Provider] - 3-5 Days if not improving (And/your your oncologist) Disposition Disposition: Home, Self Care
[2021-03-28 15:40] VITALS: PULSE 68; O2SAT 100
== END 2021-03-28 15:56 | disposition home or self-care (01) ==
PROVIDERS: Emergency Provider Emergency Medicine; PCP Internal Medicine
DX: S00.03XA Contusion of scalp, initial encounter (principal); S20.229A Contusion of unspecified back wall of thorax, initial encounter; W01.0XXA Fall on same level from slipping, tripping and stumbling without subsequent striking against object, initial encounter; Y93.01 Activity, walking, marching and hiking; Y92.002 Bathroom of unspecified non-institutional (private) residence as the place of occurrence of the external cause; Y99.8 Other external cause status; J18.9 Pneumonia, unspecified organism; D84.821 Immunodeficiency due to drugs; I10 Essential (primary) hypertension; E11.9 Type 2 diabetes mellitus without complications; C34.90 Malignant neoplasm of unspecified part of unspecified bronchus or lung; M19.90 Unspecified osteoarthritis, unspecified site; F32.A Depression, unspecified; F41.9 Anxiety disorder, unspecified; E66.9 Obesity, unspecified; Z68.43 Body mass index [BMI] 50.0-59.9, adult; Z79.4 Long term (current) use of insulin; Z79.899 Other long term (current) drug therapy; Z87.891 Personal history of nicotine dependence
CPT/HCPCS: 70450; 71101; 99284

== ENCOUNTER 2021-04-22 11:57 | Inpatient (IN) | payer MEDICARE, SELFPAY ==
[2021-04-22] VITALS (10 sets, daily range): BP systolic 113–152; BP diastolic 48–80; PULSE 72–100; RESP 15–24; TEMP 36.3–36.6; O2SAT 96–100; BMI 52.0; BMI 52.2
--- NOTE | 2021-04-22 13:05 | EX.ED.DYSGE1 ---
HPI History of Present Illness Chief Complaint: General Illness Informant: patient and family Narrative Narrative: Patient presents with daughter for evaluation being referred in by PCP office after calling today. Per daughter diagnosed with non-small cell lung cancer over the summer, finished 6 weeks chemotherapy at the end of March. Apparently had a mechanical fall back injury in of March, found to have pneumonia. She is placed on antibiotics and steroids at that time. History of asthma. She states follow-up with her oncologist Dr. Crouch, second round antibiotics and steroids were given. [facility] also outpatient chest scan was obtained reporting per daughter persistent pneumonia. She was seen in the oncology office 12 days ago for follow-up. [facility] discussion was with pulmonology Dr. Watters, plan was to monitor for any progression of symptoms. Since then increasing cough yellow sputum. Patient persistent diarrhea secondary to her chemotherapy. She is Covid vaccinated. States has had previous Covid test that were negative. Wheezing at home. Returns secondary symptoms not improving. Reviewing records diagnosed with the pneumonia March 28. Unable to see any CT scan results since then of her lungs. Daughter have a picture on her phone appeared to have a right middle lobe pneumonia on 1 picture. Prior similar symptoms: Yes PFSH PFSH Medical History Anxiety Asthma Breast cancer Chronic respiratory failure with hypoxia Depression Diabetes Diabetes mellitus, type II GERD (gastroesophageal reflux disease) Hypertension Migraines Osteoarthritis Sleep apnea Home Medications cholecalciferol (vitamin D3) 50,000 unit PO SUWE@0800 06/01/17 [History Last Taken 12/04/20] pramipexole 0.5 mg PO QHS 06/01/17 [History Last Taken 12/05/20] albuterol sulfate 2.5 mg INHALATION Q2H PRN PRN #1 box 11/26/17 [Rx Last Taken 12/05/20] albuterol sulfate [ProAir HFA] 2 puff INHALATION Q6H PRN PRN 03/25/18 [History Last Taken 12/05/20] budesonide [Rhinocort Allergy] 2 puff NARES DAILY 06/12/18 [History Last Taken 09/26/20] carbamazepine 200 mg PO QHS 03/01/19 [History Last Taken 12/05/20] methylphenidate HCl 20 mg PO BID 03/01/19 [History Last Taken 12/05/20] nadolol 40 mg PO DAILY 03/01/19 [History Last Taken 12/05/20] paroxetine HCl [Paxil] 40 mg PO DAILY 03/01/19 [History Last Taken 12/05/20] loperamide 2 mg PO Q4H PRN PRN cap 10/08/19 [Rx Last Taken 09/26/20] insulin regular hum U-500 conc 85 units SQ DINNER 03/22/20 [History Last Taken 12/05/20] levocetirizine 5 mg PO QHS 03/22/20 [History Last Taken 12/05/20] montelukast 10 mg PO DAILY 03/22/20 [History Last Taken 12/05/20] nystatin 1 applic TOPICAL BID 03/22/20 [History Last Taken 2 Days Ago ~12/04/20] potassium chloride 10 meq PO DAILYCM 03/22/20 [History Last Taken 12/05/20] insulin regular hum U-500 conc 95 units SQ BREAKFAST 08/12/20 [History Last Taken 12/05/20] rosuvastatin 20 mg PO QHS 12/06/20 [History Last Taken 12/05/20] prednisone See Taper PO DAILY #30 tab 12/07/20 [Rx Last Taken Unknown] levofloxacin 750 mg PO DAILY #5 tab 03/28/21 [Rx Last Taken Unknown] prednisone 10 mg PO UD #18 tab 03/28/21 [Rx Last Taken Unknown] Allergy/AdvReac Type Severity Reaction Status Date / Time adhesive tape Allergy tears skin Verified 04/22/21 12:05 cefadroxil [From Duricef] Allergy Unknown Verified 04/22/21 12:05 gluten Allergy celiac Verified 04/22/21 12:05 disease mesalamine [From Asacol] Allergy Unknown Verified 04/22/21 12:05 omalizumab [From Xolair] Allergy Unknown Verified 04/22/21 12:05 Sulfa (Sulfonamide Allergy swelling Verified 04/22/21 12:05 Antibiotics) as an infant oxycodone AdvReac Vomiting Verified 04/22/21 12:05 Surgical History History of mastectomy History of partial hysterectomy Hx of bilateral cataract extraction Hx of carpal tunnel repair Social History Smoking Status: Former smoker ROS ROS ED Constitutional Constitutional ED: Denies chills, fever(s) or sweats Eyes Eyes: Denies change in vision ENT ENT ED: Denies dysphagia or sore throat Cardiovascular Cardiovascular: Denies chest pain, leg edema, palpitations or racing heartbeat Respiratory/Chest Respiratory/Chest: Reports cough and dyspnea; Denies dyspnea on exertion Gastrointestinal Gastrointestinal: Reports diarrhea; Denies abdominal pain, nausea or vomiting Genitourinary Genitourinary ED: Denies dysuria, hematuria or urinary frequency Musculoskeletal Musculoskeletal: Denies back pain, extremity pain or neck pain Integumentary Denies rash or wounds Neurologic Neurologic: Denies headache(s), paresthesias or weakness EXAM Physical Exam Const Vital Signs: 04/22/21 11:57 04/22/21 13:07 04/22/21 13:17 Temperature 97.8 F Temperature Source Temporal Pulse Rate 84 93 Respiratory Rate 20 H 21 H Respiratory Effort Respiratory Pattern Tachypnea Blood Pressure 152/64 H Blood Pressure Mean 93 Pulse Ox 98 Oxygen Delivery Method Nasal Cannula Nasal Cannula Oxygen Flow Rate (L/min) 2 2 04/22/21 13:58 04/22/21 14:02 04/22/21 15:15 Temperature Temperature Source Pulse Rate 85 75 Respiratory Rate 15 22 H Respiratory Effort Labored Accessory Muscle Use Respiratory Pattern Normal Blood Pressure 126/56 H 132/48 H Blood Pressure Mean 79 76 Pulse Ox 97 99 Oxygen Delivery Method Nasal Cannula Oxygen Flow Rate (L/min) Positive well nourished, well developed and obese Constitutional Narrative: Stable on 2 L nasal cannula, occasional coarse cough. No respiratory distress. General Appearance ED: well developed Nutritional Appearance: obese HEENT Reports moist mucous membranes normocephalic and atraumatic Eyes PERRL, EOMs intact bilaterally and conjunctivae normal General Eye ED: Yes normal appearance of both eyes Neck no lymphadenopathy and supple General: Negative for tenderness Chest Wall Chest: Negative for tenderness Resp normal air movement Resp Narrative: Bilateral coarse rhonchi. Effort and Inspection: symmetric chest movement; Negative for respiratory distress Auscultation: rhonchi Cardio regular rate, regular rhythm and no murmurs Peripheral Pulses: pulses 2+ throughout GI normal to inspection, nondistended, normoactive bowel sounds and non-tender Palpation: Negative for guarding or rebound tenderness present Back/Spine no CVA tenderness and no thoracic nor lumbar tenderness Extremity normal to inspection General Extremety ED: Negative for edema or tenderness General Extremity: Negative for edema Neuro oriented x3 and no sensory deficits noted Sensorium / Orientation: awake and alert Skin no rashes or lesions noted and no wounds MDM MDM MDM Narrative Medical decision making narrative: Patient vitals stable she is on 2 L of oxygen. Occasional coarse coughing. EKG is sinus rhythm. Patient with worsening cough not improving with 2 rounds of antibiotics. History of non-small cell lung cancer recently finished chemotherapy. Laboratory studies were checked. White count normal creatinine 0.76. Discussed obtaining CT chest to rule out other lung pathologies. Results returned negative for PE. There was noted infiltrates now in the right upper right middle and right lower lobes. Her x-ray reports from March 28 was right middle lobe. [id number] in the room states the CAT scan that was obtained outpatient did not note any lower lobe infiltrates. She does not have the report. Attempted to ambulate the patient as she was too weak. She normally can ambulate at home with assistance. With recurrent worsening pneumonia with increasing weakness and immunosuppressed, I spoke with hospitalist Dr. Gold for admission. Patient started on Zosyn and vancomycin. Solu-Medrol ordered. Patient admitted to PCU for further management. Lab Data Attestation: I reviewed the patient's lab results. Labs: Laboratory Results - last 24 hr 04/22/21 04/22/21 04/22/21 13:45 13:45 17:29 WBC 8.9 RBC 3.08 L Hgb 9.0 L Hct 28.0 L MCV 90.9 MCH 29.2 MCHC 32.1 RDW Std Deviation 63.1 H RDW Coeff of Aniceto 19.1 H Plt Count 165 MPV 10.1 Immature Gran % (Auto) 0.800 Neut % (Auto) 78.8 H Lymph % (Auto) 6.7 L [place] % (Auto) 9.4 Eos % (Auto) 3.9 Baso % (Auto) 0.4 Absolute Neuts (auto) 7.0 Absolute Lymphs (auto) 0.60 L Nucleated RBC % 0 Differential Comment D Sodium 141 Potassium 3.7 Chloride 105 Carbon Dioxide 29.0 Anion Gap 7 BUN 12 Creatinine 0.76 Estim Creat Clear Calc 40.83 Est GFR (MDRD) Af Amer 95 Est GFR (MDRD) Non-Af 79 BUN/Creatinine Ratio 15.8 Glucose 115 H Calcium 9.0 Total Bilirubin 0.30 AST 22 ALT 22 Alkaline Phosphatase 99 Total Protein 7.0 Albumin 2.2 L Globulin 4.8 H Albumin/Globulin Ratio 0.5 L POC Glucose 90 Radiography Diagnostic Testing: Clinical Impression(s) from Imaging Studies Chest CTA 04/22/21 13:06 IMPRESSION: No evidence of pulmonary emboli. Focal areas of consolidation is seen in the right upper, right middle and right lower lobes. Electronically Signed: Salazar Garcia MD at 15:35 EST , Service support , EKG Initial EKG: Attestation: I personally reviewed and interpreted this EKG as follows: Comments: Sinus rate of 87, no ST or T wave changes. Discharge Plan Dx/Rx/DC Orders Clinical Impression: Recurrent pneumonia, Immunosuppressed due to chemotherapy, History of primary non-small cell carcinoma of right lung Disposition Disposition: Acute Care Hospital [facility]
--- NOTE | 2021-04-22 13:06 | CT_ITS ---
STUDY: CTA CHEST REASON FOR EXAM: Female, 75 years old. Dyspnea -- persistent cough, hx of Lung CA, r/o PE RADIATION DOSAGE (If Supplied By Facility): CTDIvol = ( 9.00 ) mGy, DLP = ( 448.59 ) mGycm TECHNIQUE: The examination was performed with the intravenous administration of IV 100ML ISOVUE 370. Post-processing of the angiographic images was performed, with multiplanar reformation and 3D reconstruction. Individualized dose optimization techniques were used for this CT. COMPARISON: Comparison is made with prior study dated 09/28/2020. FINDINGS: Normal enhancement of the main pulmonary artery and right and left pulmonary arteries. Normal enhancement of the bilateral peripheral pulmonary arteries. There is no demonstrated pulmonary embolism. There is atherosclerotic calcification of the aortic arch with tortuosity. There is no demonstrated aortic dissection. There are calcifications of the coronary arteries. There are visualized mediastinal lymph nodes, which are within normal size limits, and with normal morphology. Normal hilar regions. Normal visualized trachea and bronchi. The lungs are well expanded. There are new focal areas of consolidation in the right upper lobe as well as in the right middle lobe medially and right lower lobe. Normal pleura. Normal chest wall structures. There are degenerative changes of thoracic spine. Normal visualized upper abdomen. CT/CTA Chest W/WO Contrast IMPRESSION: No evidence of pulmonary emboli. Focal areas of consolidation is seen in the right upper, right middle and right lower lobes. Electronically Signed: Salazar Garcia MD at 15:35 EST , Service support ,
--- NOTE | 2021-04-22 13:06 | EKG12_ITS ---
Test Reason : Blood Pressure : / mmHG Vent. Rate : 087 BPM Atrial Rate : 087 BPM P-R Int : 242 ms QRS Dur : 076 ms QT Int : 360 ms P-R-T Axes : 115 012 061 degrees QTc Int : 433 ms Sinus rhythm with 1st degree A-V block Low voltage QRS Confirmed by SHARLA RIVERA, EN ([id number]), film and video editor CAROL VARGAS ([id number]) on 04/23/2021 1:14:27 PM Referred By: ADONIS Confirmed By:EN MAGDALENO MD
[2021-04-22] MEDS: Ipratropium/Albuterol Sulfate 3 ML AMPUL.NEB INHALATION ×3 (13:17→23:35)
[2021-04-22 14:06] LABS: Basophil# 0.04 X10^3/uL; Basophil% 0.4 % (0-1); Eosinophil# 0.35 X10^3/uL; Eosinophils% 3.9 % (0-5); Lymphocyte % 6.7 % (19-41); Mean Corp Hgb Conc 32.1 g/dL (32-36); Mean Corpuscular Hgb 29.2 pg (27.0-32.0); Mean Corpuscular Volume 90.9 fL (81-99); Mean Platelet Vol. 10.1 fl (6.2-12.0); Monocyte# 0.84 X10^3/uL; Monocyte% 9.4 % (0-10); NRBC Flagged by Analyzer 0 % (0-5); Neutrophil # 6.99 X10^3/uL (2.7-7.7); Neutrophil % 78.8 % (47-70); POSITIVE DIFFERENTIAL YES; Platelet Count 165 K/mm3 (150-450); RBC Distribution Width CV 19.1 % (11.6-14.6); RBC Distribution Width SD 63.1 fl (35.1-43.9); Red Blood Count 3.08 M/mm3 (4.2-5.4); White Blood Count 8.9 K/mm3 (4.4-11.0)
[2021-04-22 14:08] LABS: Differential Indicated SCAN CRITERIA MET
[2021-04-22 14:26] LABS: ALB/GLOB Ratio 0.5 RATIO (0.9-2.4); AST(SGOT) 22 U/L (15-37); Alanine Aminotransfer ALT/SGPT 22 U/L (13-56); Albumin, Serum 2.2 g/dL (3.2-5.0); Alkaline Phosphatase 99 U/L (45-117); Anion Gap 7 (5-15); BUN 12 mg/dL (7-18); BUN/Creat Ratio 15.8 RATIO (10-20); Chloride 105 mmol/L (98-107); Creatinine, Serum 0.76 mg/dL (0.55-1.02); EST Glomerular Filtration Rate 79 mL/min (>60); Est Glom Filt Rate - Afr Amer 95 mL/min (>60); Estimated Creatinine Clearance 40.83 ml/min; Globulin 4.8 g/dL (2.2-4.2); Glucose 115 mg/dL (74-106); Potassium 3.7 mmol/L (3.5-5.1); Sodium Level 141 mmol/L (136-145)
[2021-04-22 14:56] LABS: Differential Comment D
[2021-04-22 17:35] LABS: Bedside Glucose 90 mg/dL (70-110)
--- NOTE | 2021-04-22 17:35 | ED.RN ---
pt perspiring perfusely with minmal acivity. stood to side of bed pt usteady reports extreme dizziness and safely feel back into the bed to sitting position. dr vasquez aware of pt difficulty and inability to tolerated walking
--- NOTE | 2021-04-22 18:13 | HP.PCM.HOS_ITS ---
HPI - General General Date of Admission: 04/22/21 HPI Narrative ALESSANDRO GUARDADO, is a 75 F with history of diagnosis of non-small cell lung cancer diagnosed in December had 6 rounds of chemotherapy and 6 weeks of radiotherapy 5 days a week, last cycle in latter half of March and then she fell down on back about March 28 and came to ER. At that time she had 2 weeks of cough and had Augmentin but she did not complete it because of diarrhea. She also had 6 days of prednisone and was found right upper lobe pneumonia and was given prescription of Levaquin and discharged from ER. She further said she refinish 2 rounds of antibiotic of Levaquin and prednisone around #4 but she still has cough, dyspnea at rest exacerbated by minimal exertion. She denies chest pressure but sometimes she gets pleuritic pain because of cough. She has persistent cough, with yellowish sputum. She feels chills and diaphoresis but denies fever although she is not measuring fever at home. She denies nausea, vomiting but has diarrhea. She further states he saw Dr. Crouch with follow-up CT scan and a week ago and at that time was told that she had antibiotic and prednisone therefore will monitor after discussion with Dr. Watters. 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 She continues to have cough, shortness of breath therefore was told by Dr. Crouch to come to ER. She is tested negative for COVID-19 rapid antigen. She had 2 shots of COVID vaccine and flu shot this year. At baseline she is on 2 to 3 L of home oxygen and BiPAP at home she has a history of asthma. She has 40 years of smoking. In ED, chest CTA shows multiple focal areas of consolidation including right upper, right middle and right lower lobes but no PE. Discussed with the ER physician and started on vancomycin and Zosyn and IV Solu-Medrol. Twelve-lead EKG shows sinus rhythm with first-degree AV block, QTC 433 ms. FOR[facility]LY [facility], [facility] Medical History Anxiety Asthma Breast cancer Chronic respiratory failure with hypoxia Depression Diabetes Diabetes mellitus, type II GERD (gastroesophageal reflux disease) Hypertension Migraines Osteoarthritis Sleep apnea Home Medications cholecalciferol (vitamin D3) 50,000 unit PO SUWE@0800 06/01/17 [History Last Taken 12/04/20] pramipexole 0.5 mg PO QHS 06/01/17 [History Last Taken 12/05/20] albuterol sulfate 2.5 mg INHALATION Q2H PRN PRN #1 box 11/26/17 [Rx Last Taken 12/05/20] albuterol sulfate [ProAir HFA] 2 puff INHALATION Q6H PRN PRN 03/25/18 [History Last Taken 12/05/20] budesonide [Rhinocort Allergy] 2 puff NARES DAILY 06/12/18 [History Last Taken 09/26/20] carbamazepine 200 mg PO QHS 03/01/19 [History Last Taken 12/05/20] methylphenidate HCl 20 mg PO BID 03/01/19 [History Last Taken 12/05/20] nadolol 40 mg PO DAILY 03/01/19 [History Last Taken 12/05/20] paroxetine HCl [Paxil] 40 mg PO DAILY 03/01/19 [History Last Taken 12/05/20] loperamide 2 mg PO Q4H PRN PRN cap 10/08/19 [Rx Last Taken 09/26/20] insulin regular hum U-500 conc 85 units SQ DINNER 03/22/20 [History Last Taken 12/05/20] levocetirizine 5 mg PO QHS 03/22/20 [History Last Taken 12/05/20] montelukast 10 mg PO DAILY 03/22/20 [History Last Taken 12/05/20] nystatin 1 applic TOPICAL BID 03/22/20 [History Last Taken 2 Days Ago ~12/04/20] potassium chloride 10 meq PO DAILYCM 03/22/20 [History Last Taken 12/05/20] insulin regular hum U-500 conc 95 units SQ BREAKFAST 08/12/20 [History Last Taken 12/05/20] rosuvastatin 20 mg PO QHS 12/06/20 [History Last Taken 12/05/20] prednisone See Taper PO DAILY #30 tab 12/07/20 [Rx Last Taken Unknown] levofloxacin 750 mg PO DAILY #5 tab 03/28/21 [Rx Last Taken Unknown] prednisone 10 mg PO UD #18 tab 03/28/21 [Rx Last Taken Unknown] Allergy/AdvReac Type Severity Reaction Status Date / Time adhesive tape Allergy tears skin Verified 04/22/21 12:05 cefadroxil [From Duricef] Allergy Unknown Verified 04/22/21 12:05 gluten Allergy celiac Verified 04/22/21 12:05 disease mesalamine [From Asacol] Allergy Unknown Verified 04/22/21 12:05 omalizumab [From Xolair] Allergy Unknown Verified 04/22/21 12:05 Sulfa (Sulfonamide Allergy swelling Verified 04/22/21 12:05 Antibiotics) as an oxycodone AdvReac Vomiting Verified 04/22/21 12:05 Surgical History History of mastectomy History of partial hysterectomy Hx of bilateral cataract extraction Hx of carpal tunnel repair Social History Smoking Status: Former smoker ROS ROS Narrative Constitutional: Reports fatigue and weakness, dizziness and persistent cough. Morbid obesity. HEENT: Reports systems reviewed and no addt'l complaints, except as documented Respiratory/Chest: As mentioned in HPI Gastrointestinal: Diarrhea. Denies coffee ground emesis, hematemesis or v omiting Genitourinary: Denies burning urination or new urinary tract symptoms Musculoskeletal: Reports mild joint pain and limited range of motion Neurologic: Denies seizure-like activity skin: No ulcer. No rash Endocrinology: Reports systems reviewed and no addt'l complaints, except as documented Hematologic/Lymphatic: Reports systems reviewed and no addt'l complaints, except as documented Rest 12 ROS are negative except as mentioned in HPI Vital Signs Vital Signs Vital Signs: 04/22/21 11:57 04/22/21 13:07 04/22/21 13:17 Temperature 97.8 F Temperature Source Temporal Pulse Rate 84 93 Respiratory Rate 20 H 21 H Respiratory Effort Respiratory Pattern Tachypnea Blood Pressure 152/64 H Blood Pressure Mean 93 Pulse Ox 98 Oxygen Delivery Method Nasal Cannula Nasal Cannula Oxygen Flow Rate (L/min) 2 2 04/22/21 13:58 04/22/21 14:02 04/22/21 15:15 Temperature Temperature Source Pulse Rate 85 75 Respiratory Rate 15 22 H Respiratory Effort Labored Accessory Muscle Use Respiratory Pattern Normal Blood Pressure 126/56 H 132/48 H Blood Pressure Mean 79 76 Pulse Ox 97 99 Oxygen Delivery Method Nasal Cannula Oxygen Flow Rate (L/min) Weight Weight: 294 lb Body Mass Index (BMI) 52.0 Physical Exam Narrative General: Alert, Oriented x3, Cooperative, morbid obesity BMI 52.2 kg/m? HEENT: Atraumatic, PERRLA, EOMI, Normocephalic Oral: No Gingival or Mucosal Lesions/ Ulcerations Neck: Supple, No JVD, Negative Carotid Bruits Lungs: Air entry diminished in bilateral lungs. Bilateral expiratory wheezing and crepitations. Dyspnea at rest. Cardiovascular: Regular rate, Regular Rhythm, Normal S1, Normal S2, No murmurs Abdomen: Bowel Sounds Present, Soft, Non Tender, Non-Distended : No renal angle tenderness. No suprapubic tenderness. Extremities: No edema, Capillary Refill Less than 3 Seconds Skin: No rashes, No breakdown Musculoskeletal: No Tenderness to Palpation of Joints or Extremities Neurological: Cranial nerves II-XII grossly intact, DTR 2+/4 and Symmetrical Psych/Mental Status: Flat affect. Results Lab / Micro Data Result Diagrams: 04/22/21 13:45 04/22/21 13:45 Labs: Laboratory Results - last 24 hr 04/22/21 13:45: WBC 8.9, RBC 3.08 L, Hgb 9.0 L, Hct 28.0 L, MCV 90.9, MCH 29.2, MCHC 32.1, RDW Std Deviation 63.1 H, RDW Coeff of Aniceto 19.1 H, Plt Count 165, MPV 10.1, Immature Gran % (Auto) 0.800, Neut % (Auto) 78.8 H, Lymph % (Auto) 6.7 L, [place] % (Auto) 9.4, Eos % (Auto) 3.9, Baso % (Auto) 0.4, Absolute Neuts (auto) 7.0, Absolute Lymphs (auto) 0.60 L, Nucleated RBC % 0, Differential Comment D 04/22/21 13:45: Sodium 141, Potassium 3.7, Chloride 105, Carbon Dioxide 29.0, Anion Gap 7, BUN 12, Creatinine 0.76, Estim Creat Clear Calc 40.83, Est GFR (MDRD) Af Amer 95, Est GFR (MDRD) Non-Af 79, BUN/Creatinine Ratio 15.8, Glucose 115 H, Calcium 9.0, Total Bilirubin 0.30, AST 22, ALT 22, Alkaline Phosphatase 99, Total Protein 7.0, Albumin 2.2 L, Globulin 4.8 H, Albumin/Globulin Ratio 0.5 L 04/22/21 17:29: POC Glucose 90 Micro: Microbiology 04/22/21 13:55 Nasal Secretion SARS-CoV-2 Antigen (Rapid) - Final Radiology Impression Chest CTA 04/22/21 13:06 IMPRESSION: No evidence of pulmonary emboli. Focal areas of consolidation is seen in the right upper, right middle and right lower lobes. Electronically Signed: Salazar Garcia MD at 15:35 EST , Service support , Assessment & Plan Assessment/Plan (1) Recurrent pneumonia: PLAN: 1. Nonresolving persistent multilobar/multifocal pneumonia in immunocompromised host with asthma/COPD overlap exacerbation from pneumonia: Patient is being admitted in PCU. Pneumonia work-up including blood cultures x2, urinary antigens, MRSA nasal screen, sputum culture and respiratory panel ordered. Started on broad-spectrum IV antibiotic vancomycin and Zosyn. IV Solu-Medrol 40 mg for total of 3 doses is does not want to continue because of immunocompromised status. Scheduled bronchodilator DuoNeb every 4 hourly. Incentive spirometry, Pep and Mucinex. [employer] consult Dr. Watters. 2. Non-small cell lung cancer status post chemotherapy and radiotherapy: This is being followed by Dr. Crouch and will consult him. Patient labs shows normal white count of 8.9 thousand but lymphopenia and neutrophilia. 3. Acute on chronic normocytic normochromic anemia probably chemotherapeutic side effect: Patient hemoglobin is 9 g. Baseline runs around 11.6 to 13 g%. Iron work-up, B12 folic acid ordered. No clinical signs or symptoms of bleeding. Patient has persistent diarrhea and is on loperamide, chemotherapeutic adverse effect. 4. Diabetes mellitus type 2: Patient is on insulin regular U?500 at breakfast and dinner. Home dose adjusted with holding parameter for hypoglycemia. Blood sugar in BMP is 115. 5. Other multiple comorbidities hypertension, migraine, GERD, sleep apnea, anxiety and depression: Home medication reconciliation done. Blood pressure is normotensive Living will/advanced directive/end of life care: Patient does have living will or advanced directive. Her daughter is power of admitted attorneys for health. After discussion of benefits/risks procedures involved with full code, DNR CC arrest and DNR CC, the patient and her [id number] present in room opted for full code. Patient does want artificial life support including intubation, tube feed, ventilator and/chest compression, central venous catheter, vasopressor and DC shock if needed Total time spent in [id number] encounter in discussion of advanced directive 16 minutes. Charges/Coding Visit Charges Inpatient E&M: 67551 Init Hosp L3 Procedures Hospitalists Procedures: 32439 Advncd Care Plan 30 Min
[2021-04-22] MEDS: MethylPREDNISolone 125 MG/2 ML Vial 60 MG IV (18:17)
[2021-04-22] MEDS: 0.9% Normal Saline 1,000 ML 75 ML IV (20:39)
[2021-04-22] MEDS: Insulin Lispro 100 UNIT/ML INSULN.PEN SC (20:42)
[2021-04-22] MEDS: Loratadine 10 MG Tablet PO (20:43)
[2021-04-22] MEDS: Atorvastatin Calcium 40 MG Tablet PO (20:43)
[2021-04-22] MEDS: guaiFENesin 1,200 MG Tablet 1200 MG PO (20:44)
[2021-04-22] MEDS: Pramipexole Di-HCl 0.5 MG Tablet PO (20:44)
[2021-04-22] MEDS: Enoxaparin 40 MG/0.4 ML Syringe SC (20:44)
[2021-04-22] MEDS: carBAMazepine 200 MG Tablet PO (20:45)
[2021-04-22 21:01] LABS: Bedside Glucose 182 mg/dL (70-110)
[2021-04-22 21:47] LABS: Lactic Acid 0.8 mmol/L (0.4-1.9)
[2021-04-22 22:02] LABS: Vitamin B12 587 pg/mL (211-911)
[2021-04-22 22:42] LABS: Ferritin 171 ng/mL (8-252); Iron 29 ug/dL (50-170); Iron Binding Capacity,Total 191 ug/dL (250-450); PERCENT IRON SATURATION 15.2 % (15.0-55.0)
--- NOTE | 2021-04-22 23:01 | PCS.PANDOC ---
PANDEMIC DOCUMENTATION INITIATED: Date: 01/20/2021 Time: 190
[2021-04-23] VITALS (16 sets, daily range): BP systolic 111–133; BP diastolic 61–72; PULSE 70–89; RESP 12–24; TEMP 36.3–36.6; O2SAT 94–99
--- NOTE | 2021-04-23 00:57 | PCM.RX.CS ---
Consult Pharmacy has been consulted to manage selected antiobiotic: Vancomycin Type of Consult: New start Suspected Infection: Pneumonia Labs: Sodium 141 mmol/L (136-145) 04/22/21 13:45 Potassium 3.7 mmol/L (3.5-5.1) 04/22/21 13:45 Chloride 105 mmol/L (98-107) 04/22/21 13:45 Carbon Dioxide 29.0 mmol/L (21.0-32.0) 04/22/21 13:45 Anion Gap 7 (5-15) 04/22/21 13:45 BUN 12 mg/dL (7-18) 04/22/21 13:45 Creatinine 0.76 mg/dL (0.55-1.02) 04/22/21 13:45 Est GFR (MDRD) Af Amer 95 mL/min (>60) 04/22/21 13:45 Est GFR (MDRD) Non-Af 79 mL/min (>60) 04/22/21 13:45 BUN/Creatinine Ratio 15.8 RATIO (10-20) 04/22/21 13:45 Glucose 115 mg/dL (74-106) H 04/22/21 13:45 Microbiology: Microbiology 04/22/21 22:39 Urine, Clean Catch Streptococcus pneumoniae Antigen (M - Final 04/22/21 22:39 Urine, Clean Catch Legionella Antigen - Final 04/22/21 19:50 Mucosa - Nasopharyngeal Respiratory Panel (PCR) - Final 04/22/21 13:55 Nasal Secretion SARS-CoV-2 Antigen (Rapid) - Final Goal Trough: 15-20 mcg/mL Pharmacy Plan for Drug Dosing: NEW START IV VANCOMYCIN Consulting Physician: Dr. Gold Indication: Pneumonia Goal Trough: 15-20 SrCr: 0.76 CrCl: 40ml/min Comments: 2000mg IV x1 in ED 04/22/21 @2220 Vancomcyin Dose: 1000mg IV Q12hr to start 04/23/21 @1000 Pending Level: 04/24/21 @0930, prior to 4th total dose of vancomycin per protocol Pharmacy Service will continue to monitor and adjust dosing as required.
[2021-04-23 01:31] LABS: M R Staph aureus DNA By PCR Negative (Negative); Probe Check PASS; Specimen Processing Control PASS
[2021-04-23] MEDS: Ipratropium/Albuterol Sulfate 3 ML AMPUL.NEB INHALATION ×5 (03:03→23:36)
[2021-04-23 05:29] LABS: Absolute Lymphocyte Count 0.36 X10^3/uL (0.83-4.51); Absolute Neutrophil Count 7.4 X10^3/uL (2.0-7.7); Basophil# 0.01 X10^3/uL; Basophil% 0.1 % (0-1); Eosinophil# 0.02 X10^3/uL; Eosinophils% 0.2 % (0-5); Hematocrit 27.3 % (37-47); Hemoglobin 8.7 g/dL (12.0-15.0); Lymphocyte # 0.36 X10^3/ul (0.83-4.51); Lymphocyte % 4.3 % (19-41); Mean Corp Hgb Conc 31.9 g/dL (32-36); Mean Corpuscular Hgb 29.1 pg (27.0-32.0); Mean Corpuscular Volume 91.3 fL (81-99); Mean Platelet Vol. 9.7 fl (6.2-12.0); Monocyte# 0.44 X10^3/uL; Monocyte% 5.3 % (0-10); NRBC Flagged by Analyzer 0 % (0-5); Neutrophil # 7.44 X10^3/uL (2.7-7.7); Neutrophil % 89.7 % (47-70); POSITIVE DIFFERENTIAL YES; Platelet Count 142 K/mm3 (150-450); RBC Distribution Width CV 18.6 % (11.6-14.6); RBC Distribution Width SD 62.4 fl (35.1-43.9); Red Blood Count 2.99 M/mm3 (4.2-5.4); White Blood Count 8.3 K/mm3 (4.4-11.0)
[2021-04-23 05:43] LABS: Differential Indicated SCAN CRITERIA MET
[2021-04-23 06:17] LABS: Anion Gap 5 (5-15); BUN 16 mg/dL (7-18); BUN/Creat Ratio 22.4 RATIO (10-20); Chloride 106 mmol/L (98-107); Creatinine, Serum 0.72 mg/dL (0.55-1.02); EST Glomerular Filtration Rate 85 mL/min (>60); Est Glom Filt Rate - Afr Amer 102 mL/min (>60); Estimated Creatinine Clearance 40.83 ml/min; Glucose 344 mg/dL (74-106); Phosphorus 4.3 mg/dL (2.5-4.9); Potassium 4.5 mmol/L (3.5-5.1); Sodium Level 136 mmol/L (136-145)
[2021-04-23 06:46] LABS: Differential Comment SCANNED
--- NOTE | 2021-04-23 08:13 | CON.PCM.ON_ITS ---
Assessment & Plan Assessment/Plan (1) Recurrent pneumonia: Status: Acute Code(s): J18.9 - Pneumonia, unspecified organism Plan: CT images personally reviewed. Several areas dense consolidation in the right lung. Previous right hilar tumor resolved. Clinically improving on broad-spectrum empiric antibiotic. Sputum culture pending. Oxygen requirements minimally increased. Overall she is feeling better. Plan: -Continue broad-spectrum antibiotic. -Await sputum culture. -Consider respiratory viral panel. -Continue pulmonary toilet. -Will follow. HPI Consult Data Date of Service:: 04/23/21 PCP / Referring Provider: Dr. Senait Jay MD Attending: Dr. Moris Camejo DO Chief Complaint Chief Complaint: NSCLC History of Present Illness History of Present Illness: DIAGNOSIS:?Stage IIIa,?non-small cell lung cancer ? Pertinent medical history: Stage I, pT1c, pN0?ER positive,?HER-2 negative breast cancer History of asthma, chronic restrictive lung disease on oxygen?HS;?obesity,?hypertension,?type 2 diabetes mellitus,?hyperlipidemia. ? HPI:?75-year-old lady recently diagnosed with non-small cell lung cancer. ?She is a former smoker but has quit smoking for over 40?years presented with a lung nodule during her last hospitalization. ?She had recurrent pneumonia or bronchitis since the beginning of this year. She was referred to Dr. Watters?and her PET scan was concerning for primary lung cancer. ? She has a known history of right sided breast cancer, s/p mastectomy and axillary lymph node dissection (11/05/2009, radiation therapy).??Cyclophosphamide /?docetaxel x 4?cycles adjuvant chemotherapy and anastrozole?x 5 years.??She had a regional recurrence in 2018 with local excision.? ? CT chest scan (12/30/20) demonstrated a?29 x 28 mm central right lung nodule which is likely centered in the right lower lobe and spans the major fissure which?enlarged when compared to the prior exams and is highly suspicious for a neoplastic nodule, probably a primary lung malignancy. Mediastinal and right hilar lymphadenopathy is new/increased when compared to the prior exams and is suspicious for ma lignancy. ? She had bronchoscopy and?EBUS?biopsy of lung mass and mediastinal lymph nodes?on?01/15/2021?in [place]. ? FINAL DIAGNOSIS 1. Right lung, upper lobe, nodule, core biopsy (A) - Poorly differentiated carcinoma. COMMENT Immunohistochemical stains (block A1) demonstrate the malignant cells to be cytokeratins AE1/3, cytokeratins CAM 5.2, CK7, and SOX10 positive. ?The malignant cells are TTF-1, p40, GATA3, CDX2, smooth muscle actin, Melanin A, HMB-45, p63, and PAX8 negative. ? Immunohistochemistry for PD-L1 expression Tumor Cells Positive: 1-2% Block Analyzed: A1 PD-L1 Clone: 22C3 ? Result: BRAF - No variant detected [Reference Sequence: ([id number])]. EGFR - No variant detected [Reference Sequence: ([id number])]. HER2 (ERBB2) - No variant detected [Reference Sequence: ([id number])]. KRAS - No variant detected [Reference Sequence: ([id number])]. MET - No variant detected [Reference Sequence: ([id number])]. ALK Rearrangement ? 2% ?-?NOT DETECTED. ? Current treatment: Carboplatin/paclitaxel with concurrent radiation therapy (02/11/21 - 03/31/21) Per Dr. Gold's HPI: fell down on back about March 28 and came to ER. At that time she had 2 weeks of cough and had Augmentin but she did not complete it because of diarrhea. She also had 6 days of prednisone and was found right upper lobe pneumonia and was given prescription of Levaquin and discharged from ER. She further said she refinish 2 rounds of antibiotic of Levaquin and prednisone around #4 but she still has cough, dyspnea at rest exacerbated by minimal exertion. She denies chest pressure but sometimes she gets pleuritic pain because of cough. She has persistent cough, with yellowish sputum. She feels chills and diaphoresis but denies fever although she is not measuring fever at home. She denies nausea, vomiting but has diarrhea. She further states he saw Dr. Crouch with follow-up CT scan and a week ago and at that time was told that she had antibiotic and prednisone therefore will monitor after discussion with Dr. Watters. 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 She continues to have cough, shortness of breath therefore was told by Dr. Crouch to come to ER. She is tested negative for COVID-19 rapid antigen. She had 2 shots of COVID vaccine and flu shot this year. At baseline she is on 2 to 3 L of home oxygen and BiPAP at home she has a his tory of asthma. She has 40 years of smoking. In ED, chest CTA shows multiple focal areas of consolidation including right upper, right middle and right lower lobes but no PE. Discussed with the ER p cristina and started on vancomycin and Zosyn and IV Solu-Medrol. Endorses feeling somewhat better this morning. Was able to walk to bathroom. Continues to have a deep productive cough. Give a sputum sample earlier today. Yellow sputum. No hemoptysis. Has wheezing off and on. No fever. Denies chest pain and pressure. 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 Living Will: Yes [facility] Medical History Anxiety Asthma Breast cancer Chronic respiratory failure with hypoxia Depression Diabetes Diabetes mellitus, type II GERD (gastroesophageal reflux disease) Hypertension Migraines Osteoarthritis Sleep apnea Home Medications cholecalciferol (vitamin D3) 50,000 unit PO SUWE@0800 06/01/17 [History Last Taken 12/04/20] pramipexole 0.5 mg PO QHS 06/01/17 [History Last Taken 12/05/20] albuterol sulfate 2.5 mg INHALATION Q2H PRN PRN #1 box 11/26/17 [Rx Last Taken 12/05/20] albuterol sulfate [ProAir HFA] 2 puff INHALATION Q6H PRN PRN 03/25/18 [History Last Taken 12/05/20] budesonide [Rhinocort Allergy] 2 puff NARES DAILY 06/12/18 [History Last Taken 09/26/20] carbamazepine 200 mg PO QHS 03/01/19 [History Last Taken 12/05/20] methylphenidate HCl 20 mg PO BID 03/01/19 [History Last Taken 12/05/20] nadolol 40 mg PO DAILY 03/01/19 [History Last Taken 12/05/20] paroxetine HCl [Paxil] 40 mg PO DAILY 03/01/19 [History Last Taken 12/05/20] loperamide 2 mg PO Q4H PRN PRN cap 05/03/20 [Rx Last Taken 09/26/20] insulin regular hum U-500 conc 85 units SQ DINNER 03/22/20 [History Last Taken 12/05/20] levocetirizine 5 mg PO QHS 03/22/20 [History Last Taken 12/05/20] montelukast 10 mg PO DAILY 03/22/20 [History Last Taken 12/05/20] nystatin 1 applic TOPICAL BID 03/22/20 [History Last Taken 2 Days Ago ~12/04/20] potassium chloride 10 meq PO DAILYCM 03/22/20 [History Last Taken 12/05/20] insulin regular hum U-500 conc 95 units SQ BREAKFAST 08/12/20 [History Last Taken 12/05/20] rosuvastatin 20 mg PO QHS 12/06/20 [History Last Taken 12/05/20] prednisone See Taper PO DAILY #30 tab 12/07/20 [Rx Last Taken Unknown] levofloxacin 750 mg PO DAILY #5 tab 03/28/21 [Rx Last Taken Unknown] prednisone 10 mg PO UD #18 tab 03/28/21 [Rx Last Taken Unknown] Allergy/AdvReac Type Severity Reaction Status Date / Time adhesive tape Allergy tears skin Verified 04/22/21 12:05 cefadroxil [From Duricef] Allergy Unknown Verified 04/22/21 12:05 gluten Allergy celiac Verified 04/22/21 12:05 disease mesalamine [From Asacol] Allergy Unknown Verified 04/22/21 12:05 omalizumab [From Xolair] Allergy Unknown Verified 04/22/21 12:05 Sulfa (Sulfonamide Allergy swelling Verified 04/22/21 12:05 Antibiotics) as an oxycodone AdvReac Vomiting Verified 04/22/21 12:05 Surgical History History of mastectomy History of partial hysterectomy Hx of bilateral cataract extraction Hx of carpal tunnel repair Social History Smoking Status: Former smoker Physical Exam Const alert and oriented x3 Lymph Lymphatic: no lymphadenopathy noted Resp Resp Narrative: Diminished inspiratory breath sounds with coarse rhonchi that mostly clear with cough. Cardio regular rhythm Vital Signs Temperature 97.4 F L 04/23/21 08:08 Temperature Source Oral 04/23/21 08:08 Pulse Rate 70 04/23/21 08:08 Respiratory Rate 16 04/23/21 08:08 Respiratory Effort Non-Labored 04/22/21 20:10 Respiratory Depth Normal 04/22/21 20:10 Respiratory Pattern Tachypnea 04/23/21 03:03 Blood Pressure 127/67 H 04/23/21 08:08 Blood Pressure Mean 87 04/23/21 08:08 Blood Pressure Source Monitor 04/23/21 08:08 Blood Pressure Position Supine 04/23/21 08:08 Blood Pressure Location Left Leg 04/23/21 08:08 Pulse Ox 95 04/23/21 08:08 Oxygen Delivery Method Nasal Cannula 04/23/21 08:08 Oxygen Flow Rate (L/min) 3 04/23/21 08:08 Laboratory Results - last 24 hr 04/22/21 13:45: WBC 8.9, RBC 3.08 L, Hgb 9.0 L, Hct 28.0 L, MCV 90.9, MCH 29.2, MCHC 32.1, RDW Std Deviation 63.1 H, RDW Coeff of Aniceto 19.1 H, Plt Count 165, MPV 10.1, Immature Gran % (Auto) 0.800, Neut % (Auto) 78.8 H, Lymph % (Auto) 6.7 L, [place] % (Auto) 9.4, Eos % (Auto) 3.9, Baso % (Auto) 0.4, Absolute Neuts (auto) 7.0, Absolute Lymphs (auto) 0.60 L, Nucleated RBC % 0, Differential Comment D 04/22/21 13:45: Sodium 141, Potassium 3.7, Chloride 105, Carbon Dioxide 29.0, Anion Gap 7, BUN 12, Creatinine 0.76, Estim Creat Clear Calc 40.83, Est GFR (MDRD) Af Amer 95, Est GFR (MDRD) Non-Af 79, BUN/Creatinine Ratio 15.8, Glucose 115 H, Calcium 9.0, Total Bilirubin 0.30, AST 22, ALT 22, Alkaline Phosphatase 99, Total Protein 7.0, Albumin 2.2 L, Globulin 4.8 H, Albumin/Globulin Ratio 0.5 L 04/22/21 13:45: Magnesium 2.0 04/22/21 17:29: POC Glucose 90 04/22/21 20:38: POC Glucose 182 H 04/22/21 21:07: Lactic Acid 0.8 04/22/21 21:07: Vitamin B12 587 04/22/21 21:07: Iron 29 L, TIBC 191 L, Iron Saturation 15.2, Ferritin 171, Folate 24.00 04/22/21 22:25: MRSA (PCR) Negative 04/23/21 05:14: WBC 8.3, RBC 2.99 L, Hgb 8.7 L, Hct 27.3 L, MCV 91.3, MCH 29.1, MCHC 31.9 L, RDW Std Deviation 62.4 H, RDW Coeff of Aniceto 18.6 H, Plt Count 142 L, MPV 9.7, Immature Gran % (Auto) 0.400, Neut % (Auto) 89.7 H, Lymph % (Auto) 4.3 L, [place] % (Auto) 5.3, Eos % (Auto) 0.2, Baso % (Auto) 0.1, Absolute Neuts (auto) 7.4, Absolute Lymphs (auto) 0.36 L, Nucleated RBC % 0, Differential Comment SCANNED 04/23/21 05:14: Sodium 136, Potassium 4.5, Chloride 106, Carbon Dioxide 25.0, Anion Gap 5, BUN 16, Creatinine 0.72, Estim Creat Clear Calc 40.83, Est GFR (MDRD) Af Amer 102, Est GFR (MDRD) Non-Af 85, BUN/Creatinine Ratio 22.4 H, Glucose 344 H, Calcium 9.0, Phosphorus 4.3 Microbiology 04/22/21 22:39 Urine, Clean Catch Streptococcus pneumoniae Antigen (M - Final 04/22/21 22:39 Urine, Clean Catch Legionella Antigen - Final 04/22/21 19:50 Mucosa - Nasopharyngeal Respiratory Panel (PCR) - Final 04/22/21 13:55 Nasal Secretion SARS-CoV-2 Antigen (Rapid) - Final Diagnostic Data Chest CTA 04/22/21 13:06 IMPRESSION: No evidence of pulmonary emboli. Focal areas of consolidation is seen in the right upper, right middle and right lower lobes. Electronically Signed: Salazar Garcia MD at 15:35 EST , Service support ,
[2021-04-23] MEDS: Potassium Chloride Oral Tablet 10 MEQ PO (08:27)
[2021-04-23] MEDS: Ergocalciferol 1.25 MG (50, 000 UNIT) Capsule PO (08:27)
[2021-04-23] MEDS: Methylphenidate HCl 5 MG Tablet 20 MG PO ×2 (08:50→17:27)
[2021-04-23] MEDS: Insulin U-500 UNITS/ML PEN 90 UNITS SC (08:55)
[2021-04-23] MEDS: Insulin Lispro 100 UNIT/ML INSULN.PEN SC ×4 (08:56→20:30)
[2021-04-23] MEDS: Enoxaparin 40 MG/0.4 ML Syringe SC ×2 (09:10→20:30)
[2021-04-23] MEDS: guaiFENesin 1,200 MG Tablet 1200 MG PO ×2 (09:13→20:31)
[2021-04-23] MEDS: Paroxetine 20 MG Tablet 40 MG PO (09:13)
[2021-04-23] MEDS: Montelukast 10 MG Tablet PO (09:13)
[2021-04-23] MEDS: Vancomycin IV 1,000 MG/200 ML BAG 200 MG IV ×2 (09:15→20:38)
[2021-04-23 11:25] LABS: Bedside Glucose 241 mg/dL (70-110)
--- NOTE | 2021-04-23 11:35 | CASEMGMT ---
RN THAIS Face to Face with patient for initial transition planning/care coordination assessment. RN CM introduced self and role at [facility]. Patient lying in bed, alert and oriented. Patient willing to participate in assessment and is able to answer all questions appropriately. Care providers, pharmacy, and demographics verified. Patient wishes to discharge home, will monitor for need for HHC pending therapy. Patient states she has no further needs or concerns at this time. CM to follow for discharge planning needs that may arise. PCP: Misty Specialists: Janene pulmonogist; Willa, oncologist Preferred Pharmacy: [facility], [facility] retail at discharge. Insurance: [employer] [facility] Prescription Benefit: yes Living Will/HPOA: yes, daughter Santa CARRENO: , daughter Living Arrangements: Leidat lives with in a 2 story home with 4-5 steps and railing to enter the home. Patient has stair lift to second floor. Patient states she is independent at home. Transportation: daughter in law DME/HHC: patient states she has shower chair, BSC, raised toilet, grab bars, walker, cpap, nebulizer, stair lift, home oxygen with portability 2lpm with [employer]. Patient has had [facility] HHC in the past. Patient states she is interested in talking with Palliative care, THAIS Osuna updated. Disposition Plan: Patient to discharge home with family support and follow-up plans in place. Amparo MEJIA, RN, CM
[2021-04-23 12:06] LABS: Bedside Glucose 347 mg/dL (70-110)
--- NOTE | 2021-04-23 12:25 | CASEMGMT ---
Pt qualifies for palliative c/s per [facility] screening tool and Dr. Camejo is agreeable. Order placed and referral faxed to palliative. Ginger SAN CM
--- NOTE | 2021-04-23 17:01 | PN.HOSP_ITS ---
Subjective Subjective feeling somewhat better. breathing better. Objective Data Objective Data Vital Signs: Vital Signs Temp Pulse Resp BP Pulse Ox 36.6 C 84 16 133/72 H 97 04/23/21 13:29 04/23/21 13:29 04/23/21 13:29 04/23/21 13:29 04/23/21 13:29 Oxygen Flow Rate (L/min) 3 Oxygen Delivery Method Nasal Cannula Weight: 131.7 kg Body Mass Index (BMI) 52.2 Intake & Output: Intake and Output for Last 24 Hours 04/21/21 04/22/21 04/23/21 23:59 23:59 23:59 Intake Total 712.5 / 1012.5 2122.5 / 2122.5 Output Total 640 / 640 Balance 712.5 / 772.5 1482.5 / 1482.5 Lab / Micro Data Result Diagrams: 04/23/21 05:14 04/23/21 05:14 Labs: Laboratory Results - last 24 hr 04/22/21 13:45: Magnesium 2.0 04/22/21 17:29: POC Glucose 90 04/22/21 20:38: POC Glucose 182 H 04/22/21 21:07: Lactic Acid 0.8 04/22/21 21:07: Vitamin B12 587 04/22/21 21:07: Iron 29 L, TIBC 191 L, Iron Saturation 15.2, Ferritin 171, Folate 24.00 04/22/21 22:25: MRSA (PCR) Negative 04/23/21 05:14: WBC 8.3, RBC 2.99 L, Hgb 8.7 L, Hct 27.3 L, MCV 91.3, MCH 29.1, MCHC 31.9 L, RDW Std Deviation 62.4 H, RDW Coeff of Aniceto 18.6 H, Plt Count 142 L, MPV 9.7, Immature Gran % (Auto) 0.400, Neut % (Auto) 89.7 H, Lymph % (Auto) 4.3 L, [place] % (Auto) 5.3, Eos % (Auto) 0.2, Baso % (Auto) 0.1, Absolute Neuts (auto) 7.4, Absolute Lymphs (auto) 0.36 L, Nucleated RBC % 0, Differential Comment SCANNED 04/23/21 05:14: Sodium 136, Potassium 4.5, Chloride 106, Carbon Dioxide 25.0, Anion Gap 5, BUN 16, Creatinine 0.72, Estim Creat Clear Calc 40.83, Est GFR (MDRD) Af Amer 102, Est GFR (MDRD) Non-Af 85, BUN/Creatinine Ratio 22.4 H, Glucose 344 H, Calcium 9.0, Phosphorus 4.3 04/23/21 08:52: POC Glucose 241 H 04/23/21 11:57: POC Glucose 347 H Micro: Microbiology 04/22/21 22:39 Urine, Clean Catch Streptococcus pneumoniae Antigen (M - Final 04/22/21 22:39 Urine, Clean Catch Legionella Antigen - Final 04/22/21 19:50 Mucosa - Nasopharyngeal Respiratory Panel (PCR) - Final 04/22/21 13:55 Nasal Secretion SARS-CoV-2 Antigen (Rapid) - Final Physical Exam Const alert and no apparent distress Constitutional Narrative: required assistance to sit up in bed. Resp normal respiratory effort and no retractions Resp Narrative: coarse BS Cardio regular rate, regular rhythm, S1 normal heart sound and S2 normal heart sound GI normal to inspection, nondistended, normoactive bowel sounds, soft to palpation, non-tender and non-distended Neuro moves all extremities Sensorium / Orientation: awake and alert Psych affect normal Assessment & Plan Assessment/Plan (1) Recurrent pneumonia: PLAN: 1. possible gram negative pneumonia * failed 2 courses of ABX (LVQ) * on pip/tazo and vanc * pulmonary toilet * not present on CT from September * DW Dr. Pires, not felt to be post obstructive from her underlying malignancy * strep and legionella antigens negative 2.NSCLC * complicates care and recovery * appreciate oncology evaluation * underwent Carboplatin/paclitaxel with concurrent radiation therapy (02/11/21 - 03/31/21) 3. Anemia * suspect from chronic disease * Hg 11.6 7/3, now 8.7 * iron, TIBC low, but ferritin normal. B12 and folate normal * no need to TF at this time. * start ferrous sulfate. 4. DM2 * uncontrolled * on U500 at home * on high dose regular here * exacerbated by methyprednisone * add basal. caution for hypoglycemia. 5. VTE prophylaxis: LMWH Charges/Coding Visit Charges Inpatient E&M: 55839 Subs Hosp L3
[2021-04-23] MEDS: Insulin U-500 UNITS/ML PEN 75 UNITS SC (17:28)
[2021-04-23 17:35] LABS: Bedside Glucose 367 mg/dL (70-110)
[2021-04-23 19:11] LABS: Bedside Glucose 350 mg/dL (70-110)
[2021-04-23] MEDS: Loratadine 10 MG Tablet PO (20:30)
[2021-04-23] MEDS: Atorvastatin Calcium 40 MG Tablet PO (20:30)
[2021-04-23] MEDS: Pramipexole Di-HCl 0.5 MG Tablet PO (20:31)
[2021-04-23] MEDS: carBAMazepine 200 MG Tablet PO (20:31)
[2021-04-23] MEDS: 0.9% Saline Lock 10 ML Syringe IV ×2 (20:40→21:52)
[2021-04-23 21:10] LABS: Bedside Glucose 286 mg/dL (70-110)
[2021-04-24] VITALS (12 sets, daily range): BP systolic 112–140; BP diastolic 57–77; PULSE 75–88; RESP 12–20; TEMP 36.4–37.1; O2SAT 95–99
--- NOTE | 2021-04-24 04:40 | CPS ---
pt took off after 4 hours, only wanted nasal mask. Will try nasal mask with pt tonight.
[2021-04-24] MEDS: 0.9% Saline Lock 10 ML Syringe IV ×3 (05:47→20:41)
[2021-04-24] MEDS: Ipratropium/Albuterol Sulfate 3 ML AMPUL.NEB INHALATION ×3 (07:32→20:47)
[2021-04-24] MEDS: Insulin Lispro 100 UNIT/ML INSULN.PEN SC ×4 (08:04→20:35)
[2021-04-24] MEDS: Insulin U-500 UNITS/ML PEN 90 UNITS SC (08:04)
[2021-04-24] MEDS: Potassium Chloride Oral Tablet 10 MEQ PO (08:08)
[2021-04-24 08:20] LABS: Bedside Glucose 180 mg/dL (70-110)
[2021-04-24] MEDS: Methylphenidate HCl 5 MG Tablet 20 MG PO ×2 (09:27→16:11)
[2021-04-24] MEDS: Montelukast 10 MG Tablet PO (09:28)
[2021-04-24] MEDS: guaiFENesin 1,200 MG Tablet 1200 MG PO ×2 (09:28→20:35)
[2021-04-24] MEDS: Nadolol 40 MG Tablet PO (09:28)
[2021-04-24] MEDS: Paroxetine 20 MG Tablet 40 MG PO (09:28)
[2021-04-24] MEDS: Enoxaparin 40 MG/0.4 ML Syringe SC ×2 (09:29→20:35)
[2021-04-24 10:02] LABS: Absolute Neutrophil Count 6.1 X10^3/uL (2.0-7.7); Basophil# 0.02 X10^3/uL; Basophil% 0.3 % (0-1); Eosinophils% 1.4 % (0-5); Hematocrit 26.2 % (37-47); Hemoglobin 8.5 g/dL (12.0-15.0); Lymphocyte % 7.1 % (19-41); Mean Corp Hgb Conc 32.4 g/dL (32-36); Mean Corpuscular Hgb 29.9 pg (27.0-32.0); Mean Corpuscular Volume 92.3 fL (81-99); Mean Platelet Vol. 9.9 fl (6.2-12.0); Monocyte# 0.29 X10^3/uL; Monocyte% 4.1 % (0-10); NRBC Flagged by Analyzer 0 % (0-5); Neutrophil # 6.09 X10^3/uL (2.7-7.7); Neutrophil % 86.1 % (47-70); POSITIVE DIFFERENTIAL YES; Platelet Count 136 K/mm3 (150-450); RBC Distribution Width CV 18.3 % (11.6-14.6); RBC Distribution Width SD 62.4 fl (35.1-43.9); Red Blood Count 2.84 M/mm3 (4.2-5.4); White Blood Count 7.1 K/mm3 (4.4-11.0)
[2021-04-24 10:25] LABS: Differential Indicated SCAN CRITERIA MET
[2021-04-24 10:29] LABS: ALB/GLOB Ratio 0.5 RATIO (0.9-2.4); AST(SGOT) 24 U/L (15-37); Alanine Aminotransfer ALT/SGPT 24 U/L (13-56); Alkaline Phosphatase 88 U/L (45-117); Anion Gap 6 (5-15); BUN 16 mg/dL (7-18); BUN/Creat Ratio 18.7 RATIO (10-20); Chloride 106 mmol/L (98-107); Creatinine, Serum 0.85 mg/dL (0.55-1.02); EST Glomerular Filtration Rate 69 mL/min (>60); Est Glom Filt Rate - Afr Amer 84 mL/min (>60); Estimated Creatinine Clearance 48.03 ml/min; Globulin 4.4 g/dL (2.2-4.2); Glucose 292 mg/dL (74-106); Potassium 3.9 mmol/L (3.5-5.1); Protein, Total 6.4 g/dL (6.4-8.2); Sodium Level 138 mmol/L (136-145)
[2021-04-24 10:38] LABS: Vancomycin, Trough Level 8.3 ug/mL (5.0-15.0)
--- NOTE | 2021-04-24 10:46 | CON.PCM.PA_ITS ---
Assessment & Plan Assessment/Plan (1) Weakness: (2) History of primary non-small cell carcinoma of right lung: (3) History of right breast cancer: (4) Acute and chronic respiratory failure with hypoxia: (5) Obstructive sleep apnea: (6) Body mass index (BMI) 50-59.9, adult: (7) Recurrent pneumonia: (8) Chronic diarrhea: (9) Dependence on supplemental oxygen: (10) Anemia: QUALIFIERS: Anemia type: unspecified type Qualified Code(s): D64.9 - Anemia, unspecified PLAN: 75-year-old female with non-small cell lung cancer, recently completed chemo and radiation, seen today for palliative consultation secondary to symptom management of chronic diarrhea, weakness, and supportive management with her NSCLC. Follows with Dr. Crouch, oncology. 1. Weakness and debility: She has had ongoing pneumonia for over 6 weeks now. Failed outpatient treatment. She is getting IV antibiotics and steroids, watching sugars. Continue with therapy, she was unable to walk 2 days ago due to the weakness so may need outpatient therapy as well. 2. Acute on chronic hypoxemic respiratory failure/pneumonia: Doing better on IV antibiotics, pulmonary toileting, Mucinex. PRN nebulizers. She will need close following as an outpatient to ensure treatment success. No leukocytosis or fevers. 3. History of right breast cancer and primary NSCLC: Following with oncology, again completed treatment. Defer management to oncology. She enrolled in palliative, we will work closely with oncology as needed to optimize her treatment plan. 4. DORY/morbid obesity/chronic diarrhea/dependence on oxygen/type 2 diabetes/anemia: Complicates overall care, management, recovery, and prognosis. Continue medications as directed by primary care and hospitalist. Thank you for the opportunity to participate in this patient's care, please do not hesitate to contact [facility] with any further questions or concerns. Palliative direct line is [phone]. We will have a liaison stop out and discuss palliative services and sign consents, patient is interested in enrolling. No current recommendations for medication changes at this time, however we will closely follow-up as an outpatient. Greater than 50% of F2F visit dedicated to education and counseling of palliative care services, medications, comorbid conditions and potential assistance with management, and plan of care moving forward. Start time: 1046 End time: 1125 HPI Consult Data Date of Consult: 04/24/21 HPI Narrative HPI Narrative: ALESSANDRO GUARDADO, is a 75 F who presents to [facility] 04/22/2021 with complaints of outpatient treatment failure for pneumonia. She had fallen on her back in March and during work-up, found to have pneumonia. She failed outpatient treatment with multiple rounds of antibiotics and steroids. They did obtain a CT of the chest which showed persistent pneumonia and oncology referred her to the ED for further evaluation and management. She follows with Dr. Watters for pulmonology. CTA of the chest 04/22 showed no evidence of PE, there was focal areas of consolidation in the right upper, middle, and lower lobes. Seen today for palliative consult secondary to symptom management and supportive care in regards to her non-small cell lung cancer. Patient indicated she was interested in talking about palliative services. She has had chemo and radiation, completed March 30. Somewhat anemic and complains of persistent diarrhea. Takes loperamide on a routine basis. Patient has been weaned to her baseline oxygen requirement of 2 L per nasal cannula. She is feeling somewhat better today. Not as weak or dizzy. She does feel as though she needs a few more days in the hospital. Her cough is very coarse and frequent. She is short of breath, but that has improved as well. Not really bringing anything up for sputum. No N/V/D. She was having persistent diarrhea, however the last few days that is better. Urinary incontinence with coughing. No chest pain except if she is coughing a lot. She does not always wear her CPAP at home, states that is what caused her lung cancer. Says her machine is on recall (Penumbra). Patient lives at home with her in a two-story home, 4-5 steps to enter. She has a stair lift to the second floor. Typically she is independent with ADLs at home and her [id number] transports her to appointments. [id number]-xu-[id number] also provides meals couple times a week and personal care as needed. DME in the home includes a shower chair, BSC, raised toilet, grab bars, walker, CPAP, nebulizer, stair lift, home oxygen with portability through [email or web address]. She has a living well and her healthcare power of hard tile setter is daughter, Santa. She uses [facility] or [facility] retail pharmacy. Plan is to return home upon discharge. [facility] Medical History (Updated 04/24/21 @ 11:29 by HRIAL Ley) Acute bronchitis due to Rhinovirus Acute severe exacerbation of asthma Allergic rhinitis Anxiety Asthma Asthmatic bronchitis Breast cancer Chronic respiratory failure with hypoxia Depression Diabetes Diabetes mellitus, type II GERD (gastroesophageal reflux disease) Hypertension Migraine headache Migraines Osteoarthritis Sleep apnea Vitamin D deficiency Home Medications cholecalciferol (vitamin D3) 50,000 unit PO SUWE@0800 06/01/17 [History Last Taken 12/04/20] pramipexole 0.5 mg PO QHS 06/01/17 [History Last Taken 12/05/20] albuterol sulfate 2.5 mg INHALATION Q2H PRN PRN #1 box 11/26/17 [Rx Last Taken 12/05/20] albuterol sulfate [ProAir HFA] 2 puff INHALATION Q6H PRN PRN 03/25/18 [History Last Taken 12/05/20] budesonide [Rhinocort Allergy] 2 puff NARES DAILY 06/12/18 [History Last Taken 09/26/20] carbamazepine 200 mg PO QHS 03/01/19 [History Last Taken 12/05/20] methylphenidate HCl 20 mg PO BID 03/01/19 [History Last Taken 12/05/20] nadolol 40 mg PO DAILY 03/01/19 [History Last Taken 12/05/20] paroxetine HCl [Paxil] 40 mg PO DAILY 03/01/19 [History Last Taken 12/05/20] loperamide 2 mg PO Q4H PRN PRN cap 10/08/19 [Rx Last Taken 09/26/20] insulin regular hum U-500 conc 85 units SQ DINNER 03/22/20 [History Last Taken 12/05/20] levocetirizine 5 mg PO QHS 03/22/20 [History Last Taken 12/05/20] montelukast 10 mg PO DAILY 03/22/20 [History Last Taken 12/05/20] nystatin 1 applic TOPICAL BID 03/22/20 [History Last Taken 2 Days Ago ~12/04/20] potassium chloride 10 meq PO DAILYCM 03/22/20 [History Last Taken 12/05/20] insulin regular hum U-500 conc 95 units SQ BREAKFAST 08/12/20 [History Last Taken 12/05/20] rosuvastatin 20 mg PO QHS 12/06/20 [History Last Taken 12/05/20] prednisone See Taper PO DAILY #30 tab 12/07/20 [Rx Last Taken Unknown] levofloxacin 750 mg PO DAILY #5 tab 03/28/21 [Rx Last Taken Unknown] prednisone 10 mg PO UD #18 tab 03/28/21 [Rx Last Taken Unknown] Allergy/AdvReac Type Severity Reaction Status Date / Time adhesive tape Allergy tears skin Verified 04/22/21 12:05 cefadroxil [From Duricef] Allergy Unknown Verified 04/22/21 12:05 gluten Allergy celiac Verified 04/22/21 12:05 disease mesalamine [From Asacol] Allergy Unknown Verified 04/22/21 12:05 omalizumab [From Xolair] Allergy Unknown Verified 04/22/21 12:05 Sulfa (Sulfonamide Allergy swelling Verified 04/22/21 12:05 Antibiotics) as an infant oxycodone AdvReac Vomiting Verified 04/22/21 12:05 Surgical History History of mastectomy History of partial hysterectomy Hx of bilateral cataract extraction Hx of carpal tunnel repair Social History Smoking Status: Former smoker ROS ROS Narrative Review of systems otherwise negative from a constitutional, HEENT, respiratory, cardiovascular, GI, genitourinary, musculoskeletal, skin, neurologic, psychiatric and hematologic system unless stated above. Physical Exam Const alert and oriented x3 General Appearance: cooperative Nutritional Appearance: morbidly obese HEENT normocephalic and head/scalp atraumatic Neck supple General: trachea midline Resp Effort and Inspection: able to speak in complete sentences, symmetric chest movement and actively coughing non-productive, moist, strong, rattling and hoarse Auscultation: rales, rhonchi, wheezes and diminished lung sounds Cardio regular rate, regular rhythm, S1 normal heart sound and S2 normal heart sound Heart Sounds: other Other Details: Distant secondary to body habitus GI soft to palpation, non-tender and non-distended Auscultation: normoactive bowel sounds Extremity no clubbing, cyanosis or edema Skin no rashes or lesions noted Neuro CN's II-XII intact bilaterally, moves all extremities and no focal motor deficits Psych mental status grossly normal
--- NOTE | 2021-04-24 11:57 | PCM.PN.HOSP ---
Documented by User: Vivian Olson NP-C 04/24/21 12:05 Subjective Subjective Patient seen and examined. Patient states that she is feeling better but continues to have a harsh productive cough which still leaves her short of breath. Patient denies any needs at this time. Objective Data Objective Data Vital Signs: Vital Signs Temp Pulse Resp BP Pulse Ox 97.6 F L 88 18 130/62 H 97 04/24/21 09:23 04/24/21 09:23 04/24/21 09:23 04/24/21 09:23 04/24/21 09:23 Oxygen Flow Rate (L/min) 2 Oxygen Delivery Method Nasal Cannula Weight: 290 lb 12.635 oz Body Mass Index (BMI) 52.2 Intake & Output: Intake and Output for Last 24 Hours 04/22/21 04/23/21 04/24/21 23:59 23:59 23:59 Intake Total 712.5 / 1012.5 2672.5 / 2672.5 1000 / 1000 Output Total 1240 / 1240 400 / 400 Balance 712.5 / 772.5 1432.5 / 1432.5 600 / 600 Lab / Micro Data Result Diagrams: 04/24/21 09:41 04/24/21 09:41 Labs: Laboratory Results - last 24 hr 04/22/21 21:07: Lactic Acid 0.8 04/23/21 11:57: POC Glucose 347 H 04/23/21 16:58: POC Glucose 367 H 04/23/21 19:07: POC Glucose 350 H 04/23/21 20:28: POC Glucose 286 H 04/24/21 08:00: POC Glucose 180 H 04/24/21 09:41: Vancomycin Trough 8.3 04/24/21 09:41: WBC 7.1, RBC 2.84 L, Hgb 8.5 L, Hct 26.2 L, MCV 92.3, MCH 29.9, MCHC 32.4, RDW Std Deviation 62.4 H, RDW Coeff of Aniceto 18.3 H, Plt Count 136 L, MPV 9.9, Immature Gran % (Auto) 1.000 H, Neut % (Auto) 86.1 H, Lymph % (Auto) 7.1 L, [place] % (Auto) 4.1, Eos % (Auto) 1.4, Baso % (Auto) 0.3, Absolute Neuts (auto) 6.1, Absolute Lymphs (auto) 0.50 L, Nucleated RBC % 0, Differential Comment COMMENT 04/24/21 09:41: Sodium 138, Potassium 3.9, Chloride 106, Carbon Dioxide 26.0, Anion Gap 6, BUN 16, Creatinine 0.85, Estim Creat Clear Calc 48.03, Est GFR (MDRD) Af Amer 84, Est GFR (MDRD) Non-Af 69, BUN/Creatinine Ratio 18.7, Glucose 292 H, Calcium 9.0, Ferritin Cancelled, Total Bilirubin 0.30, AST 24, ALT 24, Alkaline Phosphatase 88, Total Protein 6.4, Albumin 2.0 L, Globulin 4.4 H, Albumin/Globulin Ratio 0.5 L, Folate Cancelled Micro: Microbiology 04/22/21 22:39 Urine, Clean Catch Streptococcus pneumoniae Antigen (M - Final 04/22/21 22:39 Urine, Clean Catch Legionella Antigen - Final 04/22/21 19:50 Mucosa - Nasopharyngeal Respiratory Panel (PCR) - Final 04/22/21 13:55 Nasal Secretion SARS-CoV-2 Antigen (Rapid) - Final Physical Exam Const alert, oriented x3 and no apparent distress HEENT head/scalp atraumatic Head and Scalp: normocephalic Eyes conjunctivae normal and no scleral icterus Neck full ROM and supple Resp normal respiratory effort and normal air movement Effort and Inspection: able to speak in complete sentences, symmetric chest movement and actively coughing productive, hacking and strong Auscultation: rhonchi throughout Cardio regular rate, regular rhythm, S1 normal heart sound, S2 normal heart sound and peripheral pulses 2+ throughout GI normal to inspection, nondistended, normoactive bowel sounds, soft to palpation and non-tender Extremity normal to inspection, full ROM and no clubbing, cyanosis or edema Peripheral Pulses: Yes pulses 2+ throughout Skin no rashes or lesions noted, no wounds and skin turgor normal Neuro oriented x3, moves all extremities and no focal motor deficits Sensorium / Orientation: awake and alert Speech: speech normal Psych affect normal Assessment & Plan Assessment/Plan (1) Anemia: QUALIFIERS: Anemia type: unspecified type Qualified Code(s): D64.9 - Anemia, unspecified (2) Dependence on supplemental oxygen: (3) Recurrent pneumonia: PLAN: 1. Recurrent pneumonia -Continue Vanco and Zosyn -Encourage pulmonary toileting and incentive spirometry -Blood and sputum cultures pending -Patient currently on 2 L nasal cannula which is patient's baseline oxygen usage 2.NSCLC -Complicates care and recovery -Oncology following -Patient completed carboplatin/paclitaxel with concurrent radiation therapy 02/11/2021 to 03/31/2021 -Patient is currently patient with palliative care, following 3. Anemia -Likely secondary to chronic disease -Iron and TIBC low, ferrous sulfate initiated -Hemoglobin 8.5 at this time -CBC ordered daily 4. Diabetes mellitus 2 -Continue patient U500 home regimen -AC at bedtime blood sugars with sliding scale as well as Lantus ordered -Likely exacerbated by use of IV steroids DVT prophylaxis-Heparin subcu This patient was seen by Vivian Olson NP-C under the supervision of Dr. Camejo. Documented by User: Dr. Moris Camejo, DO 04/24/21 17:08 Subjective Subjective Feeling better. Still coughing. Objective Data Lab / Micro Data Result Diagrams: 04/24/21 09:41 04/24/21 09:41 Physical Exam Const alert HEENT Head and Scalp: normocephalic Resp normal respiratory effort and no retractions Cardio regular rate, regular rhythm, S1 normal heart sound and S2 normal heart sound Extremity normal to inspection and no clubbing, cyanosis or edema Assessment & Plan Assessment/Plan (1) Recurrent pneumonia: PLAN: Patient seen and examined independently. Data and vitals reviewed. I agree with the above note by the nurse practitioner. 1. possible gram negative pneumonia failed 2 courses of ABX (LVQ) on pip/tazo and vanc pulmonary toilet not present on CT from September Dr. Pires, not felt to be post obstructive from her underlying malignancy strep and legionella antigens negative 2.NSCLC complicates care and recovery appreciate oncology evaluation underwent Carboplatin/paclitaxel with concurrent radiation therapy (02/11/21 - 03/31/21) 3. Anemia suspect from chronic disease Hg 11.6 12/07, now 8.7 iron, TIBC low, but ferritin normal. B12 and folate normal no need to TF at this time. start ferrous sulfate. 4. DM2 uncontrolled on U500 at home on high dose regular here exacerbated by methyprednisone add basal. caution for hypoglycemia. 5. VTE prophylaxis: LMWH Charges/Coding Visit Charges Inpatient E&M: 14697 Subs Hosp L2
[2021-04-24 12:05] LABS: Bedside Glucose 182 mg/dL (70-110)
[2021-04-24 14:15] LABS: Bedside Glucose 196 mg/dL (70-110)
--- NOTE | 2021-04-24 14:50 | PCM.RX.CS ---
Consult Pharmacy has been consulted to manage selected antiobiotic: Vancomycin Type of Consult: Follow-up Suspected Infection: Pneumonia Prior Doses of Antibiotics Received/Current Regimen: 2000MG given in ER 04/22/21 @0. 1000mg 04/23/21 @ 0915 1000mg 04/23/21 @2200 1000mg 04/24/21 @1000 Labs: Sodium 138 mmol/L (136-145) 04/24/21 09:41 Potassium 3.9 mmol/L (3.5-5.1) 04/24/21 09:41 Chloride 106 mmol/L (98-107) 04/24/21 09:41 Carbon Dioxide 26.0 mmol/L (21.0-32.0) 04/24/21 09:41 Anion Gap 6 (5-15) 04/24/21 09:41 BUN 16 mg/dL (7-18) 04/24/21 09:41 Creatinine 0.85 mg/dL (0.55-1.02) 04/24/21 09:41 Est GFR (MDRD) Af Amer 84 mL/min (>60) 04/24/21 09:41 Est GFR (MDRD) Non-Af 69 mL/min (>60) 04/24/21 09:41 BUN/Creatinine Ratio 18.7 RATIO (10-20) 04/24/21 09:41 Glucose 292 mg/dL (74-106) H 04/24/21 09:41 Vancomycin Trough 8.3 ug/mL (5.0-15.0) 04/24/21 09:41 Microbiology: Microbiology 04/23/21 08:00 Sputum, Expectorated/Coughed Gram Stain - Final 04/23/21 08:00 Sputum, Expectorated/Coughed Respiratory Culture - Preliminary Gram negative analisa 04/22/21 22:39 Urine, Clean Catch Streptococcus pneumoniae Antigen (M - Final 04/22/21 22:39 Urine, Clean Catch Legionella Antigen - Final 04/22/21 19:50 Mucosa - Nasopharyngeal Respiratory Panel (PCR) - Final 04/22/21 13:55 Nasal Secretion SARS-CoV-2 Antigen (Rapid) - Final Weight used for dosin.6 kg Estimated Creatinine Clearance: 48 Goal Trough: 15-20 mcg/mL Pharmacy Plan for Drug Dosing: Trough level 8.3 30 minutes prior to 4 dose. Increase dose to 1500mg q12h Pharmacy Service will continue to monitor and adjust dosing as required. Follow-Up Labs: Trough Vancomycin Labs to be done on [date and time ordered]: 04/26/21 @ 0656
--- NOTE | 2021-04-24 14:52 | CHAPLAIN ---
Type of Pastoral Visit _x__ Initial Visit ___ Follow-up Visit ___ On-call Visit ___ General Patient Visit ___ Spiritual Assessment ___ Family Conference ___ Bereavement ___ Rapid Response ___ Code Blue ___ Other (describe below) Pastoral Care Referral From _x__ Patient ___ Family ___ Nurse ___ Physician ___ Guide Plant ___ Dealer Sales Manager ___ Other (describe below) Sacrament/Intervention _x__ Active listening ___ Anointing ___ Temple ___ Bereavement ___ Communion ___ [place] exploration ___ ___ Life review _x__ Prayer ___ Reconciliation ___ Sacrament of Sick _x__ Supportive presence ___ Wedding ___ Other (describe below) Pastoral Comments
[2021-04-24 16:20] LABS: Bedside Glucose 255 mg/dL (70-110)
[2021-04-24] MEDS: Insulin U-500 UNITS/ML PEN 75 UNITS SC (16:29)
[2021-04-24] MEDS: Pramipexole Di-HCl 0.5 MG Tablet PO (20:34)
[2021-04-24] MEDS: carBAMazepine 200 MG Tablet PO (20:34)
[2021-04-24] MEDS: Loratadine 10 MG Tablet PO (20:35)
[2021-04-24] MEDS: Atorvastatin Calcium 40 MG Tablet PO (20:35)
[2021-04-24 20:51] LABS: Bedside Glucose 160 mg/dL (70-110)
[2021-04-25] VITALS (19 sets, daily range): BP systolic 120–158; BP diastolic 57–71; PULSE 67–97; RESP 12–24; TEMP 36.2–36.8; O2SAT 94–97
[2021-04-25] MEDS: Ipratropium/Albuterol Sulfate 3 ML AMPUL.NEB INHALATION ×4 (07:08→19:19)
--- NOTE | 2021-04-25 08:01 | PN_ITS ---
Subjective: Appetite is good, energy is down, cough is less productive less pronounced and the material is clearing, less green less yellow more pack The patient reports little activity, no chest pressure or pain, no complaint of shortness of breath and she is not complaining of wheeze She is receiving aerosol treatments - Physical Exam Vitals/I&O's: Vital Signs Temp Pulse Resp BP Pulse Ox 98.2 F 74 20 H 158/70 H 96 04/25/21 03:20 04/25/21 07:08 04/25/21 07:08 04/25/21 03:20 04/25/21 07:08 Oxygen Flow Rate (L/min) 2 Oxygen Delivery Method Nasal Cannula Weight: 133.6 kg Body Mass Index (BMI) 52.2 Intake and Output for Last 24 Hours 04/23/21 04/24/21 04/25/21 23:59 23:59 23:59 Intake Total 2672.5 / 2672.5 2670 / 2670 580 / 580 Output Total 1240 / 1240 1150 / 1150 850 / 850 Balance 1432.5 / 1432.5 1520 / 1520 -270 / -270 General: Alert, Oriented x3, Cooperative HEENT: Atraumatic, PERRLA, EOMI, Normocephalic Neck: Supple, No JVD, Negative Carotid Bruits Lungs: - - Coarse rhonchi bilaterally inspiration and expiration,Prominent rhonchi on the right chest with egophony, no wheezing, Prolonged expiratory phase, harsh cough, brassy Cardiovascular: Regular rate, No murmurs Abdomen: Bowel Sounds Present, Soft, Non Tender Extremities: No edema, Capillary Refill Less than 3 Seconds, - - No edema Skin: No rashes, No breakdown Musculoskeletal: No Tenderness to Palpation of Joints or Extremities Neurological: Cranial nerves II-XII grossly intact Psych/Mental Status: Normal Affect, Appropriate Microbiology Past 72 Hours 04/23/21 08:00 Sputum, Expectorated/Coughed Gram Stain - Final 04/23/21 08:00 Sputum, Expectorated/Coughed Respiratory Culture - Preliminary Gram negative analisa 04/22/21 22:39 Urine, Clean Catch Streptococcus pneumoniae Antigen (M - Final 04/22/21 22:39 Urine, Clean Catch Legionella Antigen - Final 04/22/21 19:50 Mucosa - Nasopharyngeal Respiratory Panel (PCR) - Final 04/22/21 13:55 Nasal Secretion SARS-CoV-2 Antigen (Rapid) - Final Laboratory Results 04/24/21 08:00: POC Glucose 180 H 04/24/21 09:41: Vancomycin Trough 8.3 04/24/21 09:41: WBC 7.1, RBC 2.84 L, Hgb 8.5 L, Hct 26.2 L, MCV 92.3, MCH 29.9, MCHC 32.4, RDW Std Deviation 62.4 H, RDW Coeff of Aniceto 18.3 H, Plt Count 136 L, MPV 9.9, Immature Gran % (Auto) 1.000 H, Neut % (Auto) 86.1 H, Lymph % (Auto) 7.1 L, [place] % (Auto) 4.1, Eos % (Auto) 1.4, Baso % (Auto) 0.3, Absolute Neuts (auto) 6.1, Absolute Lymphs (auto) 0.50 L, Nucleated RBC % 0, Differential Comment COMMENT 04/24/21 09:41: Sodium 138, Potassium 3.9, Chloride 106, Carbon Dioxide 26.0, Anion Gap 6, BUN 16, Creatinine 0.85, Estim Creat Clear Calc 48.03, Est GFR (MDRD) Af Amer 84, Est GFR (MDRD) Non-Af 69, BUN/Creatinine Ratio 18.7, Glucose 292 H, Calcium 9.0, Ferritin Cancelled, Total Bilirubin 0.30, AST 24, ALT 24, Alkaline Phosphatase 88, Total Protein 6.4, Albumin 2.0 L, Globulin 4.4 H, Albumin/Globulin Ratio 0.5 L, Folate Cancelled 04/24/21 11:44: POC Glucose 182 H 04/24/21 14:11: POC Glucose 196 H 04/24/21 16:15: POC Glucose 255 H 04/24/21 20:34: POC Glucose 160 H Current Medications Acetaminophen (Acetaminophen 325 Mg Tablet) 650 mg PO Q6H PRN PRN PRN Reason: Pain Score 1-10/Temp > 100.7 F Albuterol Sulfate (Albuterol 2.5 Mg/3 Ml Vial.Neb.) 2.5 mg INHALATION Q2H PRN PRN PRN Reason: SOB/Wheezing Albuterol/Ipratropium (Ipratropium/Albuterol Sulfate 3 Ml Ampul.Neb) 3 ml INHALATION Q4H.RT [facility] Last Admin: 04/25/21 07:08 Dose: 3 ml Documented by: Atorvastatin Calcium (Atorvastatin Calcium 40 Mg Tablet) 40 mg PO QHS [facility] Last Admin: 04/24/21 20:35 Dose: 40 mg Documented by: Carbamazepine (Carbamazepine 200 Mg Tablet) 200 mg PO QHS [facility] Last Admin: 04/24/21 20:34 Dose: 200 mg Documented by: Dextrose (Dextrose 50%-Water 25 Gm/50 Ml Disp.Syrin) 0 gm IV X1 PRN; Protocol PRN Reason: Hypoglycemia Enoxaparin Sodium (Enoxaparin 40 Mg/0.4 Ml Syringe) 40 mg SC BID [facility] Last Admin: 04/24/21 20:35 Dose: 40 mg Documented by: Ergocalciferol (Ergocalciferol 1.25 Mg (50, 000 Unit) Capsule) 1.25 mg PO SUWE@0800 [facility] Last Admin: 04/23/21 08:27 Dose: 1.25 mg Documented by: Glucagon (Glucagon 1 Mg/Ml Syringe) 1 mg IM .X1 PRN PRN Reason: Hypoglycemia Guaifenesin (Guaifenesin 1,200 Mg Tablet) 1,200 mg PO BID [facility] Last Admin: 04/24/21 20:35 Dose: 1,200 mg Documented by: Vancomycin IV-PHARMACY TO DOSE (1 each/ Sodium Chloride) 500 mls @ 250 mls/hr IV PRN PRN; Protocol PRN Reason: RX TO DOSE Piperacillin Sod/Tazobactam (Sod 3.375 gm/ Sodium Chloride) 50 mls @ 100 mls/hr IV Q8 [facility] Last Infusion: 04/25/21 06:02 Dose: Infused Documented by: Vancomycin HCl 1,500 mg/ (Sodium Chloride) 530 mls @ 250 mls/hr IV Q12H [facility] Last Infusion: 04/25/21 04:11 Dose: Infused Documented by: Insulin Glargine (Insulin Glargine 100 Units/Ml Pen) 20 units SC DINNER [facility] Last Admin: 04/24/21 16:29 Dose: 20 u Documented by: Insulin Human Lispro (Insulin Lispro 100 Unit/Ml Insuln.Pen) 0 unit SC ACHS [facility]; Protocol Last Admin: 04/24/21 20:35 Dose: 1 u Documented by: Insulin Human Regular (Insulin U-500 Units/Ml Pen) 75 units SC DINNER [facility] Last Admin: 04/24/21 16:29 Dose: 75 u Documented by: Insulin Human Regular (Insulin U-500 Units/Ml Pen) 90 units SC BREAKFAST [facility] Last Admin: 04/24/21 08:04 Dose: 90 u Documented by: Loperamide HCl (Loperamide 2 Mg Capsule) 2 mg PO Q4H PRN PRN PRN Reason: DIARRHEA/LOOSE STOOLS Loratadine (Loratadine 10 Mg Tablet) 10 mg PO QHS [facility] Last Admin: 04/24/21 20:35 Dose: 10 mg Documented by: Methylphenidate HCl (Methylphenidate Hcl 5 Mg Tablet) 20 mg PO 0800,1500 [facility] Last Admin: 04/24/21 16:11 Dose: 20 mg Documented by: Montelukast Sodium (Montelukast 10 Mg Tablet) 10 mg PO DAILY [facility] Last Admin: 04/24/21 09:28 Dose: 10 mg Documented by: Nadolol (Nadolol 40 Mg Tablet) 40 mg PO DAILY [facility] Last Admin: 04/24/21 09:28 Dose: 40 mg Documented by: Nitroglycerin (Nitroglycerin (Inpatient Use) 0.4 Mg Tab.Subl) 0.4 mg SL Q5M PRN PRN Reason: CARDIAC/CHEST PAIN Ondansetron HCl (Ondansetron 4 Mg/2 Ml Vial) 4 mg IV Q8H PRN PRN PRN Reason: NAUSEA/VOMITING Paroxetine HCl (Paroxetine 20 Mg Tablet) 40 mg PO DAILY [facility] Last Admin: 04/24/21 09:28 Dose: 40 mg Documented by: Potassium Chloride (Potassium Chloride Oral Tablet 10 Meq) 10 meq PO DAILYCM [facility] Last Admin: 04/24/21 08:08 Dose: 10 meq Documented by: Pramipexole Dihydrochloride (Pramipexole Di-Hcl 0.5 Mg Tablet) 0.5 mg PO QHS [facility] Last Admin: 04/24/21 20:34 Dose: 0.5 mg Documented by: Senna/Docusate Sodium (Senna/Docusate Sodium 1 Tablet) 2 tablet PO BID PRN PRN PRN Reason: Constipation Sodium Chloride (0.9% Saline Lock 10 Ml Syringe) 10 - 40 ml IV UD PRN PRN Reason: SALINE FLUSH Last Admin: 04/24/21 20:41 Dose: 10 ml Documented by: Patient Problems: Active and Suspected Problems (Last Updated 04/24/21 @ 11:29 by Leigh Daley NP-C) Anemia (Acute) Dependence on supplemental oxygen (Acute) Weakness (Acute) Recurrent pneumonia (Acute) Immunosuppressed due to chemotherapy (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 (Acute) Medical Necessity - Tobacco Use Smoking Status: Former smoker Tobacco Use: Non-smoker Assessment/Plan As for the pneumonia, continue Vanco and Zosyn Be mindful that this patient failed oral outpatient treatment and will require longer IV treatment than usual-likely another 48 hours In addition the patient has growth of gram-negative analisa, await final culture results and sensitivity from the lab today Continue pulmonary toilet aerosol treatments I would ambulate the patient With respect to the asthma, for now I would continue prednisone 40 mg daily orally Continue aerosol treatments There is a significant history of relatively severe asthma and the amount of secretions in the airway persistent cough could worsen the patient's bronchospasm and so I do recommend at least 40 mg a day until discharge of prednisone On discharge 20 mg a day for 4 days and then I will follow up with the office in 1 to 2 weeks PA and lateral chest today to look to see if there is any progress in the infiltrates, the sputum today is pack clear rather than green suggesting improvement All Active Problems (Last Updated 04/24/21 @ 11:29 by Leigh Daley, [employer]AREHOU[employer] SUPERVISOR-C) Anemia (Acute) Diabetes mellitus, type II (Acute) Dependence on supplemental oxygen (Acute) Weakness (Acute) Recurrent pneumonia (Acute) Immunosuppressed due to chemotherapy (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
[2021-04-25 08:50] LABS: Bedside Glucose 103 mg/dL (70-110)
[2021-04-25] MEDS: Potassium Chloride Oral Tablet 10 MEQ PO (08:51)
[2021-04-25] MEDS: guaiFENesin 1,200 MG Tablet 1200 MG PO ×2 (08:52→21:30)
[2021-04-25] MEDS: Nadolol 40 MG Tablet PO (08:53)
[2021-04-25] MEDS: Enoxaparin 40 MG/0.4 ML Syringe SC ×2 (08:54→21:30)
[2021-04-25] MEDS: Montelukast 10 MG Tablet PO (08:55)
[2021-04-25] MEDS: Methylphenidate HCl 5 MG Tablet 20 MG PO ×2 (08:59→16:31)
[2021-04-25] MEDS: 0.9% Saline Lock 10 ML Syringe IV (09:00)
[2021-04-25] MEDS: Paroxetine 20 MG Tablet 40 MG PO (09:00)
--- NOTE | 2021-04-25 10:08 | RAD_ITS ---
STUDY: X-RAY CHEST REASON FOR EXAM: Female, 75 years old. Pneumonia TECHNIQUE: AP and lateral views of the chest. COMPARISON: Comparison is made with prior study dated 03/28/2021. FINDINGS: EKG electrodes are seen. Patchy infiltrates are seen in the right upper and right lower lobes as well as mild infiltrate in the left lower. There is no demonstrated pleural abnormality. Normal size heart. Normal mediastinum and tanna. Normal visualized pulmonary arteries. There is atherosclerotic tortuosity of the aortic arch and descending thoracic aorta. There are diffuse degenerative changes of the visualized thoracic spine. Normal visualized ribs, clavicles, and shoulders. There is no demonstrated abnormality of the visualized soft tissue structures of the upper abdomen. RAD/Chest PA and Lateral IMPRESSION: Patchy infiltrates seen in the right upper and right lower lobes as well as at the left lung base. Follow-up is recommended. Electronically Signed: Salazar Garcia MD at 15:24 EST , Service support ,
[2021-04-25 11:55] LABS: Bedside Glucose 225 mg/dL (70-110)
[2021-04-25] MEDS: Insulin Lispro 100 UNIT/ML INSULN.PEN SC ×3 (12:02→21:26)
--- NOTE | 2021-04-25 12:16 | PN.HOSP_ITS ---
Documented by User: Vivian Olson INVESTIGATION OFFICER-C 04/25/21 12:22 Subjective Subjective Patient seen and examined. Patient states she is feeling improved, on 2 L nasal cannula which is her baseline. Patient denies needs at this time. Objective Data Objective Data Vital Signs: Vital Signs Temp Pulse Resp BP Pulse Ox 98.3 F 86 18 146/71 H 95 04/25/21 09:20 04/25/21 11:02 04/25/21 11:02 04/25/21 09:20 04/25/21 09:51 Oxygen Flow Rate (L/min) 2 Oxygen Delivery Method Nasal Cannula Weight: 294 lb 8.601 oz Body Mass Index (BMI) 52.2 Intake & Output: Intake and Output for Last 24 Hours 04/23/21 04/24/21 04/25/21 23:59 23:59 23:59 Intake Total 2672.5 / 2672.5 2670 / 2670 580 / 580 Output Total 1240 / 1240 1150 / 1150 850 / 850 Balance 1432.5 / 1432.5 1520 / 1520 -270 / -270 Lab / Micro Data Result Diagrams: 04/25/21 12:42 04/24/21 09:41 Labs: Laboratory Results - last 24 hr 04/24/21 14:11: POC Glucose 196 H 04/24/21 16:15: POC Glucose 255 H 04/24/21 20:34: POC Glucose 160 H 04/25/21 08:43: POC Glucose 103 04/25/21 11:52: POC Glucose 225 H Micro: Microbiology 04/23/21 08:00 Sputum, Expectorated/Coughed Gram Stain - Final 04/23/21 08:00 Sputum, Expectorated/Coughed Respiratory Culture - Preliminary Gram negative analisa 04/23/21 05:14 Blood Culture (Wb) - Left Hand Blood Culture - Preliminary No growth in 48 hours. 04/22/21 21:07 Blood Culture (Wb) - Left Hand Blood Culture - Preliminary No growth in 48 hours. 04/22/21 22:39 Urine, Clean Catch Streptococcus pneumoniae Antigen (M - Final 04/22/21 22:39 Urine, Clean Catch Legionella Antigen - Final 04/22/21 19:50 Mucosa - Nasopharyngeal Respiratory Panel (PCR) - Final 04/22/21 13:55 Nasal Secretion SARS-CoV-2 Antigen (Rapid) - Final Physical Exam Const alert, oriented x3 and no apparent distress HEENT head/scalp atraumatic Head and Scalp: normocephalic Eyes conjunctivae normal and no scleral icterus Neck full ROM and supple Resp normal respiratory effort, normal air movement and no retractions Effort and Inspection: able to speak in complete sentences, symmetric chest movement and actively coughing productive, hacking and strong Auscultation: rhonchi throughout Cardio regular rate, regular rhythm, S1 normal heart sound, S2 normal heart sound and peripheral pulses 2+ throughout GI normal to inspection, nondistended, normoactive bowel sounds, soft to palpation, non-tender and non-distended Extremity normal to inspection, full ROM and no clubbing, cyanosis or edema Skin no rashes or lesions noted, no wounds and skin turgor normal Neuro oriented x3, moves all extremities and no focal motor deficits Sensorium / Orientation: awake and alert Speech: speech normal Psych affect normal Assessment & Plan Assessment/Plan (1) Recurrent pneumonia: PLAN: 1. Recurrent pneumonia -Continue Vanc and Zosyn -Encourage pulmonary toileting and incentive spirometry -Blood and sputum cultures pending -Patient currently on 2 L nasal cannula which is patient's baseline oxygen usage 2.NSCLC -Complicates care and recovery -Oncology following -Patient completed carboplatin/paclitaxel with concurrent radiation therapy 02/11/2021 to 03/31/2021 -Patient is currently patient with palliative care, following 3. Anemia -Likely secondary to chronic disease -Iron and TIBC low, ferrous sulfate initiated -CBC pending 4. Diabetes mellitus 2 -Continue patient U500 home regimen -AC at bedtime blood sugars with sliding scale as well as Lantus ordered -Likely exacerbated by use of IV steroids Discharge planning-patient will likely be discharged tomorrow, awaiting sputum culture and sensitivity DVT prophylaxis-Heparin subcu This patient was seen by Vivian Olson NP-C under the supervision of Dr. Camejo. Documented by User: Dr. Moris Camejo DO 04/25/21 16:52 Objective Data Lab / Micro Data Result Diagrams: 04/25/21 12:42 04/24/21 09:41 Physical Exam Const alert HEENT Head and Scalp: normocephalic Resp normal respiratory effort, no retractions, no use of accessory muscles and clear to auscultation bilaterally Cardio regular rate, regular rhythm, S1 normal heart sound and S2 normal heart sound GI normal to inspection, nondistended, normoactive bowel sounds, soft to palpation, non-tender and non-distended Assessment & Plan Assessment/Plan (1) Recurrent pneumonia: PLAN: Patient seen and examined independently. Data and vitals reviewed. I agree with the above note by the nurse practitioner. 1. gram negative pneumonia failed 2 courses of ABX (LVQ) on pip/tazo and vanc pulmonary toilet not present on CT from September Dr. Pires, not felt to be post obstructive from her underlying malignancy strep and legionella antigens negative 2.NSCLC complicates care and recovery appreciate oncology evaluation underwent Carboplatin/paclitaxel with concurrent radiation therapy (02/11/21 - 03/31/21) 3. Anemia suspect from chronic disease Hg 11.6 7/, now 8.7 iron, TIBC low, but ferritin normal. B12 and folate normal no need to TF at this time. start ferrous sulfate. 4. DM2 uncontrolled on U500 at home on high dose regular here exacerbated by methyprednisone add basal. caution for hypoglycemia. 5. VTE prophylaxis: LMWH Charges/Coding Visit Charges Inpatient E&M: 17039 Subs Hosp L2
[2021-04-25 12:51] LABS: Absolute Lymphocyte Count 0.43 X10^3/uL (0.83-4.51); Absolute Neutrophil Count 6.8 X10^3/uL (2.0-7.7); Basophil# 0.02 X10^3/uL; Basophil% 0.2 % (0-1); Eosinophil# 0.31 X10^3/uL; Eosinophils% 3.8 % (0-5); Hematocrit 28.2 % (37-47); Hemoglobin 8.9 g/dL (12.0-15.0); Lymphocyte # 0.43 X10^3/ul (0.83-4.51); Lymphocyte % 5.3 % (19-41); Mean Corp Hgb Conc 31.6 g/dL (32-36); Mean Corpuscular Hgb 28.8 pg (27.0-32.0); Mean Corpuscular Volume 91.3 fL (81-99); Mean Platelet Vol. 9.5 fl (6.2-12.0); Monocyte# 0.53 X10^3/uL; Monocyte% 6.5 % (0-10); NRBC Flagged by Analyzer 0 % (0-5); Neutrophil # 6.77 X10^3/uL (2.7-7.7); Neutrophil % 83.6 % (47-70); POSITIVE DIFFERENTIAL YES; Platelet Count 156 K/mm3 (150-450); RBC Distribution Width CV 18.3 % (11.6-14.6); RBC Distribution Width SD 60.8 fl (35.1-43.9); Red Blood Count 3.09 M/mm3 (4.2-5.4); White Blood Count 8.1 K/mm3 (4.4-11.0)
[2021-04-25 12:54] LABS: Differential Indicated SCAN CRITERIA MET
[2021-04-25 13:12] LABS: Hypochromasia RARE; Platelet Estimate ADEQUATE (ADEQ)
[2021-04-25] MEDS: Loperamide 2 MG Capsule PO ×2 (13:12→17:22)
--- NOTE | 2021-04-25 14:38 | CASEMGMT ---
Patient has a healthcare Power of Linux Architect and a Healthcare Living Will on file at [facility]. Patient's daughter Roxi is patient's Healthcare POA. Jordana Marc DIRECTOR OF ASSISTED LIVING VARSHA
--- NOTE | 2021-04-25 15:07 | CASEMGMT ---
Plan is for pt to discharge tomorrow and pt is normally on 2L nc continuous home oxygen. Pt tested on same today and does not qualify for increased home oxygen need at discharge. Ginger SAN CM
[2021-04-25 17:06] LABS: Bedside Glucose 180 mg/dL (70-110)
[2021-04-25 21:21] LABS: Bedside Glucose 241 mg/dL (70-110)
[2021-04-25] MEDS: Loratadine 10 MG Tablet PO (21:29)
[2021-04-25] MEDS: carBAMazepine 200 MG Tablet PO (21:29)
[2021-04-25] MEDS: Atorvastatin Calcium 40 MG Tablet PO (21:30)
[2021-04-25] MEDS: Pramipexole Di-HCl 0.5 MG Tablet PO (21:30)
[2021-04-26] VITALS (17 sets, daily range): BP systolic 116–133; BP diastolic 50–74; PULSE 68–102; RESP 12–26; TEMP 36.4–37.2; O2SAT 92–97
[2021-04-26 01:37] LABS: Vancomycin, Trough Level 13.1 ug/mL (5.0-15.0)
--- NOTE | 2021-04-26 01:49 | NURSING ---
Vancomycin bag would not scan per pharmacy, confirmed medication with Cathy SAN
--- NOTE | 2021-04-26 01:56 | PCM.RX.CS ---
Consult Pharmacy has been consulted to manage selected antiobiotic: Vancomycin Type of Consult: Follow-up Labs: Sodium 138 mmol/L (136-145) 04/24/21 09:41 Potassium 3.9 mmol/L (3.5-5.1) 04/24/21 09:41 Chloride 106 mmol/L (98-107) 04/24/21 09:41 Carbon Dioxide 26.0 mmol/L (21.0-32.0) 04/24/21 09:41 Anion Gap 6 (5-15) 04/24/21 09:41 BUN 16 mg/dL (7-18) 04/24/21 09:41 Creatinine 0.85 mg/dL (0.55-1.02) 04/24/21 09:41 Est GFR (MDRD) Af Amer 84 mL/min (>60) 04/24/21 09:41 Est GFR (MDRD) Non-Af 69 mL/min (>60) 04/24/21 09:41 BUN/Creatinine Ratio 18.7 RATIO (10-20) 04/24/21 09:41 Glucose 292 mg/dL (74-106) H 04/24/21 09:41 Vancomycin Trough 13.1 ug/mL (5.0-15.0) 04/26/21 01:05 Microbiology: Microbiology 04/23/21 08:00 Sputum, Expectorated/Coughed Gram Stain - Final 04/23/21 08:00 Sputum, Expectorated/Coughed Respiratory Culture - Preliminary Gram negative analisa 04/23/21 05:14 Blood Culture (Wb) - Left Hand Blood Culture - Preliminary No growth in 48 hours. 04/22/21 21:07 Blood Culture (Wb) - Left Hand Blood Culture - Preliminary No growth in 48 hours. 04/22/21 22:39 Urine, Clean Catch Streptococcus pneumoniae Antigen (M - Final 04/22/21 22:39 Urine, Clean Catch Legionella Antigen - Final 04/22/21 19:50 Mucosa - Nasopharyngeal Respiratory Panel (PCR) - Final 04/22/21 13:55 Nasal Secretion SARS-CoV-2 Antigen (Rapid) - Final Goal Trough: 15-20 mcg/mL Pharmacy Plan for Drug Dosing: Pharmacy Service will continue to monitor and adjust dosing as required. TROUGH 13.1 INCREASE TO 1750 Q12H AND FOLLOW UP TROUGH PRIOR TO 4TH DOSE Follow-Up Labs: Trough Vancomycin Labs to be done on [date and time ordered]: 04/28 @ 0039
[2021-04-26] MEDS: Ipratropium/Albuterol Sulfate 3 ML AMPUL.NEB INHALATION ×4 (06:37→18:54)
[2021-04-26 06:38] LABS: Absolute Lymphocyte Count 0.47 X10^3/uL (0.83-4.51); Absolute Neutrophil Count 5.8 X10^3/uL (2.0-7.7); Basophil# 0.02 X10^3/uL; Basophil% 0.3 % (0-1); Eosinophil# 0.22 X10^3/uL; Eosinophils% 3.1 % (0-5); Hematocrit 26.2 % (37-47); Hemoglobin 8.5 g/dL (12.0-15.0); Lymphocyte # 0.47 X10^3/ul (0.83-4.51); Lymphocyte % 6.7 % (19-41); Mean Corp Hgb Conc 32.4 g/dL (32-36); Mean Corpuscular Hgb 29.4 pg (27.0-32.0); Mean Corpuscular Volume 90.7 fL (81-99); Mean Platelet Vol. 9.4 fl (6.2-12.0); Monocyte# 0.46 X10^3/uL; Monocyte% 6.6 % (0-10); NRBC Flagged by Analyzer 0 % (0-5); Neutrophil % 82.6 % (47-70); POSITIVE DIFFERENTIAL YES; Platelet Count 131 K/mm3 (150-450); RBC Distribution Width CV 18.4 % (11.6-14.6); RBC Distribution Width SD 61.6 fl (35.1-43.9); Red Blood Count 2.89 M/mm3 (4.2-5.4)
[2021-04-26 06:40] LABS: Differential Indicated SCAN CRITERIA MET
[2021-04-26 06:57] LABS: Anisocytosis 2+; Polychromasia 1+; Target Cells RARE; Tear Drop Cell RARE
[2021-04-26 07:03] LABS: Anion Gap 5 (5-15); BUN 11 mg/dL (7-18); BUN/Creat Ratio 17.2 RATIO (10-20); Calcium,Total 8.9 mg/dL (8.5-10.1); Chloride 103 mmol/L (98-107); Creatinine, Serum 0.64 mg/dL (0.55-1.02); EST Glomerular Filtration Rate 96 mL/min (>60); Est Glom Filt Rate - Afr Amer 117 mL/min (>60); Estimated Creatinine Clearance 40.83 ml/min; Glucose 199 mg/dL (74-106); Potassium 3.8 mmol/L (3.5-5.1); Sodium Level 137 mmol/L (136-145)
[2021-04-26] MEDS: Insulin Lispro 100 UNIT/ML INSULN.PEN SC ×4 (08:15→22:09)
[2021-04-26] MEDS: Enoxaparin 40 MG/0.4 ML Syringe SC ×2 (08:16→22:09)
[2021-04-26] MEDS: Montelukast 10 MG Tablet PO (08:16)
[2021-04-26] MEDS: predniSONE 20 MG Tablet 40 MG PO (08:16)
[2021-04-26] MEDS: Potassium Chloride Oral Tablet 10 MEQ PO (08:17)
[2021-04-26] MEDS: guaiFENesin 1,200 MG Tablet 1200 MG PO ×2 (08:17→22:10)
[2021-04-26] MEDS: Paroxetine 20 MG Tablet 40 MG PO (08:18)
[2021-04-26 08:25] LABS: Bedside Glucose 211 mg/dL (70-110)
[2021-04-26] MEDS: Methylphenidate HCl 5 MG Tablet 20 MG PO ×2 (08:28→15:58)
[2021-04-26] MEDS: Nadolol 40 MG Tablet PO (08:28)
[2021-04-26] MEDS: Pantoprazole Sodium 40 MG Tablet PO (10:05)
[2021-04-26] MEDS: Mag Hydrox/Al Hydrox/Simeth 30 ML UDC PO (10:05)
--- NOTE | 2021-04-26 10:41 | PCM.PN.HOSP ---
Documented by User: Vivian Olson NP-C 04/26/21 10:53 Subjective Subjective Patient seen and examined. Patient lying in bed no distress noted. Discussed plan of care with patient regarding need for continued IV antibiotics. Patient voiced understanding. Objective Data Objective Data Vital Signs: Vital Signs Temp Pulse Resp BP Pulse Ox 99 F 85 16 126/74 H 96 04/26/21 08:08 04/26/21 08:08 04/26/21 08:08 04/26/21 08:08 04/26/21 08:08 Oxygen Flow Rate (L/min) [ 0 AMBULATING on Room Air] Oxygen Flow Rate (L/min) [ 0.5 AMBULATING with Oxygen #3] Oxygen Flow Rate (L/min) [ 1 AMBULATING with Oxygen #2] Oxygen Flow Rate (L/min) [ 2 AMBULATING with Oxygen #1] Oxygen Flow Rate (L/min) [At 2 REST with Oxygen] Oxygen Flow Rate (L/min) 2 Oxygen Delivery Method Nasal Cannula Weight: 293 lb 6.964 oz Body Mass Index (BMI) 52.2 Intake & Output: Intake and Output for Last 24 Hours 04/24/21 04/25/21 04/26/21 23:59 23:59 23:59 Intake Total 2670 / 2670 2090 / 2290 980 / 980 Output Total 1150 / 1150 1380 / 1380 225 / 225 Balance 1520 / 1520 710 / 910 755 / 755 Lab / Micro Data Result Diagrams: 04/26/21 06:26 04/26/21 06:26 Labs: Laboratory Results - last 24 hr 04/25/21 11:52: POC Glucose 225 H 04/25/21 12:42: WBC 8.1, RBC 3.09 L, Hgb 8.9 L, Hct 28.2 L, MCV 91.3, MCH 28.8, MCHC 31.6 L, RDW Std Deviation 60.8 H, RDW Coeff of Aniceto 18.3 H, Plt Count 156, MPV 9.5, Immature Gran % (Auto) 0.600, Neut % (Auto) 83.6 H, Lymph % (Auto) 5.3 L, [place] % (Auto) 6.5, Eos % (Auto) 3.8, Baso % (Auto) 0.2, Absolute Neuts (auto) 6.8, Absolute Lymphs (auto) 0.43 L, Nucleated RBC % 0, Platelet Estimate ADEQUATE, Hypochromasia RARE 04/25/21 16:34: POC Glucose 180 H 04/25/21 21:17: POC Glucose 241 H 04/26/21 01:05: Vancomycin Trough 13.1 04/26/21 06:26: WBC 7.0, RBC 2.89 L, Hgb 8.5 L, Hct 26.2 L, MCV 90.7, MCH 29.4, MCHC 32.4, RDW Std Deviation 61.6 H, RDW Coeff of Aniceto 18.4 H, Plt Count 131 L, MPV 9.4, Immature Gran % (Auto) 0.700, Neut % (Auto) 82.6 H, Lymph % (Auto) 6.7 L, [place] % (Auto) 6.6, Eos % (Auto) 3.1, Baso % (Auto) 0.3, Absolute Neuts (auto) 5.8, Absolute Lymphs (auto) 0.47 L, Nucleated RBC % 0, Polychromasia 1+, Anisocytosis 2+, Target Cells RARE, Tear Drop Cells RARE 04/26/21 06:26: Sodium 137, Potassium 3.8, Chloride 103, Carbon Dioxide 29.0, Anion Gap 5, BUN 11, Creatinine 0.64, Estim Creat Clear Calc 40.83, Est GFR (MDRD) Af Amer 117, Est GFR (MDRD) Non-Af 96, BUN/Creatinine Ratio 17.2, Glucose 199 H, Calcium 8.9 04/26/21 08:06: POC Glucose 211 H Micro: Microbiology 04/23/21 08:00 Sputum, Expectorated/Coughed Gram Stain - Final 04/23/21 08:00 Sputum, Expectorated/Coughed Respiratory Culture - Final Pseudomonas aeroginosa#2 Pseudomonas aeroginosa 04/23/21 05:14 Blood Culture (Wb) - Left Hand Blood Culture - Preliminary No growth in 48 hours. 04/22/21 21:07 Blood Culture (Wb) - Left Hand Blood Culture - Preliminary No growth in 48 hours. 04/22/21 22:39 Urine, Clean Catch Streptococcus pneumoniae Antigen (M - Final 04/22/21 22:39 Urine, Clean Catch Legionella Antigen - Final 04/22/21 19:50 Mucosa - Nasopharyngeal Respiratory Panel (PCR) - Final 04/22/21 13:55 Nasal Secretion SARS-CoV-2 Antigen (Rapid) - Final Radiography Diagnostic Testing: Radiology Impression Chest X-Ray 04/25/21 10:08 IMPRESSION: Patchy infiltrates seen in the right upper and right lower lobes as well as at the left lung base. Follow-up is recommended. Electronically Signed: Salazar Garcia MD at 15:24 EST , Service support , Physical Exam Const alert, oriented x3 and no apparent distress Constitutional Narrative: required assistance to sit up in bed. HEENT head/scalp atraumatic Eyes conjunctivae normal and no scleral icterus Neck full ROM and supple Resp normal respiratory effort, normal air movement, no retractions, no use of accessory muscles and clear to auscultation bilaterally Resp Narrative: coarse BS Effort and Inspection: able to speak in complete sentences, symmetric chest movement and actively coughing productive, hacking and strong Auscultation: rhonchi throughout Cardio regular rate, regular rhythm, S1 normal heart sound, S2 normal heart sound and peripheral pulses 2+ throughout GI normal to inspection, nondistended, normoactive bowel sounds, soft to palpation, non-tender and non-distended Extremity normal to inspection, full ROM and no clubbing, cyanosis or edema Skin no rashes or lesions noted, no wounds and skin turgor normal Neuro oriented x3, moves all extremities and no focal motor deficits Sensorium / Orientation: awake and alert Speech: speech normal Psych affect normal Assessment & Plan Assessment/Plan (1) Recurrent pneumonia: PLAN: 1. Recurrent pneumonia -Sputum cultures resulted, demonstrates Pseudomonas aeroginosa. We will continue Zosyn, vancomycin discontinued. -Encourage pulmonary toileting and incentive spirometry -Patient currently on 2 L nasal cannula which is patient's baseline oxygen usage 2.NSCLC -Complicates care and recovery -Oncology following -Patient completed carboplatin/paclitaxel with concurrent radiation therapy 02/11/2021 to 03/31/2021 -Patient is currently patient with palliative care, following 3. Anemia -Likely secondary to chronic disease -Iron and TIBC low, ferrous sulfate initiated -Hemoglobin 8.5, stable 4. Diabetes mellitus 2 -Continue patient U500 home regimen -AC at bedtime blood sugars with sliding scale as well as Lantus ordered -Likely exacerbated by use of IV steroids Discharge planning-patient as a result of sputum culture. for pneumonia requiring IV antibiotics. patient will be discharged when she completes 7 days DVT prophylaxis-Heparin subcu This patient was seen by Vivian Olson NP-C under the supervision of Dr. Camejo. Documented by User: Dr. Moris Camejo, 04/26/21 14:28 Objective Data Lab / Micro Data Result Diagrams: 04/26/21 06:26 04/26/21 06:26 Physical Exam Const alert and no apparent distress Resp Resp Narrative: Coarse breath sounds bilaterally Cardio regular rate, regular rhythm and S1 normal heart sound Assessment & Plan Assessment/Plan (1) Recurrent pneumonia: PLAN: 1. pseudomonas pneumonia failed 2 courses of ABX (LVQ) on pip/tazo pulmonary toilet not present on CT from September DW Dr. Pires, not felt to be post obstructive from her underlying malignancy strep and legionella antigens negative Since patient failed 2 courses of Levaquin and one of the strains of the Pseudomonas is intermediate to levofloxacin, recommend continue with IV antibiotics for a total of 7 days. 2.NSCLC complicates care and recovery appreciate oncology evaluation underwent Carboplatin/paclitaxel with concurrent radiation therapy (02/11/21 - 03/31/21) 3. Anemia suspect from chronic disease Hg 11.6 7/3, now 8.7 iron, TIBC low, but ferritin normal. B12 and folate normal no need to TF at this time. start ferrous sulfate. 4. DM2 uncontrolled on U500 at home on high dose regular here exacerbated by methyprednisone add basal. caution for hypoglycemia. 5. VTE prophylaxis: LMWH Charges/Coding Visit Charges Inpatient E&M: 90900 Subs Hosp L2
[2021-04-26 11:41] LABS: Bedside Glucose 239 mg/dL (70-110)
[2021-04-26 16:31] LABS: Bedside Glucose 350 mg/dL (70-110)
[2021-04-26] MEDS: Insulin U-500 UNITS/ML PEN 75 UNITS SC (18:16)
[2021-04-26 22:00] LABS: Bedside Glucose 365 mg/dL (70-110)
[2021-04-26] MEDS: Atorvastatin Calcium 40 MG Tablet PO (22:09)
[2021-04-26] MEDS: Loratadine 10 MG Tablet PO (22:09)
[2021-04-26] MEDS: carBAMazepine 200 MG Tablet PO (22:10)
[2021-04-26] MEDS: Pramipexole Di-HCl 0.5 MG Tablet PO (22:10)
[2021-04-27] VITALS (17 sets, daily range): BP systolic 115–140; BP diastolic 55–61; PULSE 72–84; RESP 12–24; TEMP 36.6–37.3; O2SAT 94–97
[2021-04-27 06:07] LABS: Absolute Lymphocyte Count 0.59 X10^3/uL (0.83-4.51); Absolute Neutrophil Count 8.1 X10^3/uL (2.0-7.7); Basophil# 0.03 X10^3/uL; Basophil% 0.3 % (0-1); Eosinophil# 0.33 X10^3/uL; Eosinophils% 3.4 % (0-5); Hematocrit 27.9 % (37-47); Hemoglobin 8.6 g/dL (12.0-15.0); Lymphocyte # 0.59 X10^3/ul (0.83-4.51); Lymphocyte % 6.1 % (19-41); Mean Corp Hgb Conc 30.8 g/dL (32-36); Mean Corpuscular Hgb 28.5 pg (27.0-32.0); Mean Corpuscular Volume 92.4 fL (81-99); Monocyte# 0.55 X10^3/uL; Monocyte% 5.7 % (0-10); NRBC Flagged by Analyzer 0 % (0-5); Neutrophil # 8.13 X10^3/uL (2.7-7.7); Neutrophil % 83.9 % (47-70); POSITIVE DIFFERENTIAL YES; Platelet Count 145 K/mm3 (150-450); RBC Distribution Width CV 18.2 % (11.6-14.6); RBC Distribution Width SD 61.4 fl (35.1-43.9); Red Blood Count 3.02 M/mm3 (4.2-5.4); White Blood Count 9.7 K/mm3 (4.4-11.0)
[2021-04-27 06:14] LABS: Differential Indicated SCAN CRITERIA MET
[2021-04-27 06:36] LABS: Anion Gap 5 (5-15); BUN 13 mg/dL (7-18); BUN/Creat Ratio 21.7 RATIO (10-20); Calcium,Total 9.2 mg/dL (8.5-10.1); Chloride 103 mmol/L (98-107); EST Glomerular Filtration Rate 104 mL/min (>60); Est Glom Filt Rate - Afr Amer 126 mL/min (>60); Estimated Creatinine Clearance 40.83 ml/min; Glucose 117 mg/dL (74-106); Potassium 3.5 mmol/L (3.5-5.1); Sodium Level 138 mmol/L (136-145)
[2021-04-27 06:41] LABS: Anisocytosis 2+
[2021-04-27] MEDS: Ipratropium/Albuterol Sulfate 3 ML AMPUL.NEB INHALATION ×4 (07:25→18:46)
[2021-04-27] MEDS: predniSONE 20 MG Tablet 40 MG PO (08:08)
[2021-04-27] MEDS: Potassium Chloride Oral Tablet 10 MEQ PO (08:09)
[2021-04-27] MEDS: Paroxetine 20 MG Tablet 40 MG PO (08:09)
[2021-04-27] MEDS: Pantoprazole Sodium 40 MG Tablet PO (08:10)
[2021-04-27] MEDS: guaiFENesin 1,200 MG Tablet 1200 MG PO ×2 (08:10→20:59)
[2021-04-27] MEDS: Montelukast 10 MG Tablet PO (08:11)
[2021-04-27] MEDS: Enoxaparin 40 MG/0.4 ML Syringe SC ×2 (08:11→21:00)
[2021-04-27] MEDS: Ergocalciferol 1.25 MG (50, 000 UNIT) Capsule PO (08:13)
[2021-04-27] MEDS: Nadolol 40 MG Tablet PO (08:19)
[2021-04-27] MEDS: Methylphenidate HCl 5 MG Tablet 20 MG PO ×2 (08:19→15:57)
[2021-04-27] MEDS: Insulin U-500 UNITS/ML PEN 90 UNITS SC (08:21)
[2021-04-27] MEDS: Mag Hydrox/Al Hydrox/Simeth 30 ML UDC PO ×2 (08:25→14:06)
[2021-04-27 08:51] LABS: Bedside Glucose 97 mg/dL (70-110)
--- NOTE | 2021-04-27 11:23 | PCM.PN.HOSP ---
Documented by User: HIRAL Pan 04/27/21 11:30 Subjective Subjective Patient seen and examined. Patient sitting in chair no distress noted. Patient complains of itching to bilateral groins, area examined. Will start nystatin powder to bilateral groins. Patient denies other needs at this time. Objective Data Objective Data Vital Signs: Vital Signs Temp Pulse Resp BP Pulse Ox 97.9 F 81 15 140/55 H 94 04/27/21 08:00 04/27/21 08:00 04/27/21 08:00 04/27/21 08:00 04/27/21 08:00 Oxygen Flow Rate (L/min) [ 0 AMBULATING on Room Air] Oxygen Flow Rate (L/min) [ 0.5 AMBULATING with Oxygen #3] Oxygen Flow Rate (L/min) [ 1 AMBULATING with Oxygen #2] Oxygen Flow Rate (L/min) [ 2 AMBULATING with Oxygen #1] Oxygen Flow Rate (L/min) [At 2 REST with Oxygen] Oxygen Flow Rate (L/min) 2 Oxygen Delivery Method Nasal Cannula Weight: 293 lb 6.964 oz Body Mass Index (BMI) 52.2 Intake & Output: Intake and Output for Last 24 Hours 04/25/21 04/26/21 04/27/21 23:59 23:59 23:59 Intake Total 2090 / 2290 2835 / 2835 220 / 220 Output Total 1380 / 1380 225 / 225 Balance 710 / 910 2610 / 2610 220 / 220 Lab / Micro Data Result Diagrams: 04/27/21 05:26 04/27/21 05:26 Labs: Laboratory Results - last 24 hr 04/26/21 11:33: POC Glucose 239 H 04/26/21 16:21: POC Glucose 350 H 04/26/21 21:35: POC Glucose 365 H 04/27/21 05:26: WBC 9.7, RBC 3.02 L, Hgb 8.6 L, Hct 27.9 L, MCV 92.4, MCH 28.5, MCHC 30.8 L, RDW Std Deviation 61.4 H, RDW Coeff of Aniceto 18.2 H, Plt Count 145 L, MPV 10.0, Immature Gran % (Auto) 0.600, Neut % (Auto) 83.9 H, Lymph % (Auto) 6.1 L, [place] % (Auto) 5.7, Eos % (Auto) 3.4, Baso % (Auto) 0.3, Absolute Neuts (auto) 8.1 H, Absolute Lymphs (auto) 0.59 L, Nucleated RBC % 0, Anisocytosis 2+ 04/27/21 05:26: Sodium 138, Potassium 3.5, Chloride 103, Carbon Dioxide 30.0, Anion Gap 5, BUN 13, Creatinine 0.60, Estim Creat Clear Calc 40.83, Est GFR (MDRD) Af Amer 126, Est GFR (MDRD) Non-Af 104, BUN/Creatinine Ratio 21.7 H, Glucose 117 H, Calcium 9.2 04/27/21 08:02: POC Glucose 97 Micro: Microbiology 04/23/21 08:00 Sputum, Expectorated/Coughed Gram Stain - Final 04/23/21 08:00 Sputum, Expectorated/Coughed Respiratory Culture - Final Pseudomonas aeroginosa#2 Pseudomonas aeroginosa 04/23/21 05:14 Blood Culture (Wb) - Left Hand Blood Culture - Preliminary No growth in 48 hours. 04/22/21 21:07 Blood Culture (Wb) - Left Hand Blood Culture - Preliminary No growth in 48 hours. 04/22/21 22:39 Urine, Clean Catch Streptococcus pneumoniae Antigen (M - Final 04/22/21 22:39 Urine, Clean Catch Legionella Antigen - Final 04/22/21 19:50 Mucosa - Nasopharyngeal Respiratory Panel (PCR) - Final 04/22/21 13:55 Nasal Secretion SARS-CoV-2 Antigen (Rapid) - Final Physical Exam Const alert, oriented x3 and no apparent distress Constitutional Narrative: HEENT head/scalp atraumatic Eyes conjunctivae normal and no scleral icterus Neck full ROM and supple Resp normal respiratory effort, normal air movement, no retractions, no use of accessory muscles and clear to auscultation bilaterally Effort and Inspection: able to speak in complete sentences, symmetric chest movement and actively coughing productive, hacking and strong Auscultation: rhonchi throughout Cardio regular rate, regular rhythm, S1 normal heart sound, S2 normal heart sound and peripheral pulses 2+ throughout GI normal to inspection, nondistended, normoactive bowel sounds, soft to palpation, non-tender and non-distended Extremity normal to inspection, full ROM and no clubbing, cyanosis or edema Skin no wounds and skin turgor normal Skin Narrative: Bilateral groins red and moist, appearance consistent with appearance of yeast. Neuro oriented x3, moves all extremities and no focal motor deficits Sensorium / Orientation: awake and alert Speech: speech normal Psych affect normal Assessment & Plan Assessment/Plan (1) Recurrent pneumonia: PLAN: 1. Recurrent pneumonia -Sputum cultures resulted, demonstrates Pseudomonas aeroginosa. Continue Zosyn. Patient will need full course of 7 days of IV antibiotics, end date 04/29/2021 -Encourage pulmonary toileting and incentive spirometry -Patient currently on 2 L nasal cannula which is patient's baseline oxygen usage 2.NSCLC -Complicates care and recovery -Oncology following -Patient completed carboplatin/paclitaxel with concurrent radiation therapy 02/11/2021 to 03/31/2021 -Patient is currently patient with palliative care, following 3. Anemia -Likely secondary to chronic disease -Iron and TIBC low, continue ferrous sulfate. -Hemoglobin 8.6, stable -CBC daily 4. Diabetes mellitus 2 -Continue patient U500 home regimen -AC at bedtime blood sugars with sliding scale as well as Lantus ordered -Likely exacerbated by use of IV steroids Discharge planning-home following completion of IV antibiotics. DVT prophylaxis-Heparin subcu This patient was seen by LOAN PanC under the supervision of Dr. Camejo. Documented by User: Dr. Moris Camejo DO 04/27/21 13:57 Objective Data Lab / Micro Data Result Diagrams: 04/27/21 05:26 04/27/21 05:26 Physical Exam Const alert Resp normal respiratory effort, no retractions, no use of accessory muscles and clear to auscultation bilaterally Cardio regular rate, regular rhythm, S1 normal heart sound and S2 normal heart sound Assessment & Plan Assessment/Plan (1) Recurrent pneumonia: PLAN: Patient seen and examined independently. Data and vitals reviewed. I agree with the above note by the nurse practitioner. 1. Pseudomonas pneumonia Improving Continue with pip/tazo through the Charges/Coding Visit Charges Inpatient E&M: 77076 Subs Hosp L2
[2021-04-27 12:30] LABS: Bedside Glucose 133 mg/dL (70-110)
[2021-04-27] MEDS: 0.9% Saline Lock 10 ML Syringe IV (14:01)
[2021-04-27] MEDS: Nystatin Powder 15gm Bottle 1 APPLIC TOPICAL ×2 (14:01→20:59)
[2021-04-27] MEDS: Insulin Lispro 100 UNIT/ML INSULN.PEN SC ×2 (15:58→21:12)
[2021-04-27] MEDS: Insulin U-500 UNITS/ML PEN 75 UNITS SC (16:01)
[2021-04-27 16:10] LABS: Bedside Glucose 222 mg/dL (70-110)
[2021-04-27] MEDS: Loratadine 10 MG Tablet PO (21:00)
[2021-04-27] MEDS: Atorvastatin Calcium 40 MG Tablet PO (21:00)
[2021-04-27] MEDS: Pramipexole Di-HCl 0.5 MG Tablet PO (21:00)
[2021-04-27] MEDS: carBAMazepine 200 MG Tablet PO (21:01)
[2021-04-27 21:50] LABS: Bedside Glucose 312 mg/dL (70-110)
[2021-04-28] VITALS (17 sets, daily range): BP systolic 140–163; BP diastolic 62–72; PULSE 69–84; RESP 12–22; TEMP 36.4–37; O2SAT 92–100
[2021-04-28] MEDS: Mag Hydrox/Al Hydrox/Simeth 30 ML UDC PO (05:10)
[2021-04-28] MEDS: Nystatin Powder 15gm Bottle 1 APPLIC TOPICAL ×3 (05:11→21:41)
[2021-04-28 05:32] LABS: Absolute Lymphocyte Count 0.64 X10^3/uL (0.83-4.51); Absolute Neutrophil Count 7.9 X10^3/uL (2.0-7.7); Basophil# 0.03 X10^3/uL; Basophil% 0.3 % (0-1); Eosinophil# 0.32 X10^3/uL; Eosinophils% 3.4 % (0-5); Hematocrit 27.9 % (37-47); Hemoglobin 8.7 g/dL (12.0-15.0); Lymphocyte # 0.64 X10^3/ul (0.83-4.51); Lymphocyte % 6.8 % (19-41); Mean Corp Hgb Conc 31.2 g/dL (32-36); Mean Corpuscular Hgb 28.7 pg (27.0-32.0); Mean Corpuscular Volume 92.1 fL (81-99); Mean Platelet Vol. 9.4 fl (6.2-12.0); Monocyte# 0.53 X10^3/uL; Monocyte% 5.6 % (0-10); NRBC Flagged by Analyzer 0 % (0-5); Neutrophil # 7.85 X10^3/uL (2.7-7.7); Neutrophil % 83.2 % (47-70); Platelet Count 152 K/mm3 (150-450); RBC Distribution Width SD 60.7 fl (35.1-43.9); Red Blood Count 3.03 M/mm3 (4.2-5.4); White Blood Count 9.4 K/mm3 (4.4-11.0)
[2021-04-28 05:52] LABS: Anion Gap 6 (5-15); BUN 18 mg/dL (7-18); BUN/Creat Ratio 25.4 RATIO (10-20); Calcium,Total 9.5 mg/dL (8.5-10.1); Chloride 102 mmol/L (98-107); Creatinine, Serum 0.71 mg/dL (0.55-1.02); EST Glomerular Filtration Rate 85 mL/min (>60); Est Glom Filt Rate - Afr Amer 103 mL/min (>60); Estimated Creatinine Clearance 40.83 ml/min; Glucose 101 mg/dL (74-106); Potassium 3.6 mmol/L (3.5-5.1); Sodium Level 138 mmol/L (136-145)
[2021-04-28] MEDS: Ipratropium/Albuterol Sulfate 3 ML AMPUL.NEB INHALATION ×3 (06:43→19:24)
[2021-04-28] MEDS: guaiFENesin 1,200 MG Tablet 1200 MG PO ×2 (08:07→21:41)
[2021-04-28] MEDS: predniSONE 20 MG Tablet 40 MG PO (08:07)
[2021-04-28] MEDS: Pantoprazole Sodium 40 MG Tablet PO (08:07)
[2021-04-28] MEDS: Potassium Chloride Oral Tablet 10 MEQ PO (08:07)
[2021-04-28] MEDS: Paroxetine 20 MG Tablet 40 MG PO (08:07)
[2021-04-28] MEDS: Enoxaparin 40 MG/0.4 ML Syringe SC ×2 (08:08→21:40)
[2021-04-28] MEDS: Montelukast 10 MG Tablet PO (08:08)
[2021-04-28] MEDS: Methylphenidate HCl 5 MG Tablet 20 MG PO ×2 (08:14→14:50)
[2021-04-28] MEDS: Nadolol 40 MG Tablet PO (08:14)
[2021-04-28 10:21] LABS: Bedside Glucose 97 mg/dL (70-110)
--- NOTE | 2021-04-28 11:53 | PN.HOSP_ITS ---
Documented by User: Marlo MAI 04/28/21 12:03 Subjective Subjective Patient is a 75-year-old female lying in bed, alert and orient x3. Patient reports improvement in her shortness of breath, although still reports ongoing productive cough and generalized weakness. Patient denies development of any ne w symptoms overnight. Does not appear in acute distress. Objective Data Objective Data Vital Signs: Vital Signs Temp Pulse Resp BP Pulse Ox 98.5 F 79 20 H 157/62 H 93 04/28/21 08:00 04/28/21 10:25 04/28/21 10:25 04/28/21 08:00 04/28/21 08:00 Oxygen Flow Rate (L/min) [ 0 AMBULATING on Room Air] Oxygen Flow Rate (L/min) [ 0.5 AMBULATING with Oxygen #3] Oxygen Flow Rate (L/min) [ 1 AMBULATING with Oxygen #2] Oxygen Flow Rate (L/min) [ 2 AMBULATING with Oxygen #1] Oxygen Flow Rate (L/min) [At 2 REST with Oxygen] Oxygen Flow Rate (L/min) 2 Oxygen Delivery Method Nasal Cannula Weight: 296 lb 8.348 oz Body Mass Index (BMI) 52.2 Intake & Output: Intake and Output for Last 24 Hours 04/26/21 04/27/21 04/28/21 23:59 23:59 23:59 Intake Total 2835 / 2835 1500 / 1800 600 / 600 Output Total 225 / 225 Balance 2610 / 2610 1500 / 1800 600 / 600 Lab / Micro Data Result Diagrams: 04/28/21 04:50 04/28/21 04:50 Labs: Laboratory Results - last 24 hr 04/27/21 12:22: POC Glucose 133 H 04/27/21 15:56: POC Glucose 222 H 04/27/21 21:11: POC Glucose 312 H 04/28/21 04:50: WBC 9.4, RBC 3.03 L, Hgb 8.7 L, Hct 27.9 L, MCV 92.1, MCH 28.7, MCHC 31.2 L, RDW Std Deviation 60.7 H, RDW Coeff of Aniceto 18.0 H, Plt Count 152, MPV 9.4, Immature Gran % (Auto) 0.700, Neut % (Auto) 83.2 H, Lymph % (Auto) 6.8 L, [place] % (Auto) 5.6, Eos % (Auto) 3.4, Baso % (Auto) 0.3, Absolute Neuts (auto) 7.9 H, Absolute Lymphs (auto) 0.64 L, Nucleated RBC % 0 04/28/21 04:50: Sodium 138, Potassium 3.6, Chloride 102, Carbon Dioxide 30.0, Anion Gap 6, BUN 18, Creatinine 0.71, Estim Creat Clear Calc 40.83, Est GFR (MDRD) Af Amer 103, Est GFR (MDRD) Non-Af 85, BUN/Creatinine Ratio 25.4 H, Glucose 101, Calcium 9.5 04/28/21 07:57: POC Glucose 97 Micro: Microbiology 04/23/21 05:14 Blood Culture (Wb) - Left Hand Blood Culture - Final No growth in 5 days. 04/22/21 21:07 Blood Culture (Wb) - Left Hand Blood Culture - Final No growth in 5 days. 04/23/21 08:00 Sputum, Expectorated/Coughed Gram Stain - Final 04/23/21 08:00 Sputum, Expectorated/Coughed Respiratory Culture - Final Pseudomonas aeroginosa#2 Pseudomonas aeroginosa 04/22/21 22:39 Urine, Clean Catch Streptococcus pneumoniae Antigen (M - Final 04/22/21 22:39 Urine, Clean Catch Legionella Antigen - Final 04/22/21 19:50 Mucosa - Nasopharyngeal Respiratory Panel (PCR) - Final 04/22/21 13:55 Nasal Secretion SARS-CoV-2 Antigen (Rapid) - Final Physical Exam Const alert, oriented x3 and no apparent distress HEENT head/scalp atraumatic and moist oral mucous membranes Head and Scalp: normocephalic Eyes PERRL, EOMs intact bilaterally and conjunctivae normal Neck no lymphadenopathy, supple and no JVD Resp normal air movement and no retractions Effort and Inspection: labored Auscultation: diminished lung sounds Cardio regular rate, regular rhythm, no murmurs and no JVD GI normal to inspection, nondistended, normoactive bowel sounds, soft to palpation and non-tender Extremity normal to inspection, full ROM and no clubbing, cyanosis or edema Skin no rashes or lesions noted, no wounds, skin turgor normal and no jaundice Neuro CN's II-XII intact bilaterally Psych affect normal Assessment & Plan Assessment/Plan (1) Recurrent pneumonia: PLAN: Day 6 Discharge planning: Current plan is for patient to discharge home. 1) recurrent pneumonia Currently satting 93% on room air, respirations are slightly elevated at 20 breaths/min. CBC does not demonstrate a leukocytosis. Sputum culture is grew Pseudomonas, patient is currently on Zosyn and will continue 7-day course on 04/29/2021. Continue Zosyn, encourage incentive [place] and pulmonary toileting and continue to wean oxygen back to baseline. 2) non-small cell lung cancer Oncology following and palliative care consult ordered. Patient completed carboplatin/paclitaxel with concurrent radiation therapy 02/11/2021 to 03/31/2021 3) normocytic anemia Likely anemia of chronic disease. Hemoglobin is at baseline at 8.7. Continue ferrous sulfate and continue to monitor CBC. 4) DM2 Continue patient home insulin regimen with Accu-Cheks and sliding scale insulin. DVT prophylaxis - Lovenox Patient seen by Marlo Roy PA-C, under the supervision of Dr. Gold. Documented by User: Dr. Lorenzo Gold MD 04/28/21 16:11 Subjective Subjective Patient has nonresolving pneumonia for more than 3 weeks with outpatient trial of multiple antibiotics. Since admission she is feeling better in regards to sh ortness of breath but he still has cough, low energy and weakness. Patient is on IV Zosyn. Will complete 7 days on 04/29. Objective Data Lab / Micro Data Result Diagrams: 04/28/21 04:50 04/28/21 04:50 Physical Exam Narrative General: Alert, Oriented x3, Cooperative, morbid obesity BMI 52.5 kg/m? HEENT: Atraumatic, PERRLA, EOMI, Normocephalic Oral: No Gingival or Mucosal Lesions/ Ulcerations Neck: Supple, No JVD, Negative Carotid Bruits Lungs: Air entry diminished in bilateral lungs. Lungs clear. Dyspnea at minimal exertion. Cardiovascular: Regular rate, Regular Rhythm, Normal S1, Normal S2, No murmurs Abdomen: Bowel Sounds Present, Soft, Non Tender, Non-Distended : No renal angle tenderness. No suprapubic tenderness. Extremities: No edema, Capillary Refill Less than 3 Seconds Skin: No rashes, No breakdown Musculoskeletal: No Tenderness to Palpation of Joints or Extremities Neurological: Cranial nerves II-XII grossly intact, DTR 2+/4 and Symmetrical Psych/Mental Status: Flat affect. Assessment & Plan Assessment/Plan (1) Streptococcal pneumonia: PLAN: This patient was seen in conjunction with SERGEI Klein. I have independently interviewed and examined the patient and reviewed pertinent history, examination findings, laboratory and plan of management. I have reviewed the note and agree with the documented findings with the few additional points. In brief, patient is admitted for nonresolving pneumonia for more than 3 weeks. She had Augmentin, 2 rounds of Levaquin as an outpatient. She completed 6 rounds of chemotherapy and radiotherapy in latter half of March 2021. Follow[address] Dr. Crouch. Discussed with ID and agrees with 7 days of IV Zosyn. Continue PT and OT. Patient is getting benefit from bronchodilator and will continue it. History of non-small cell lung cancer, completed chemo and radiotherapy. Diabetes mellitus type 2 and chronic normocytic normochromic anemia probably neoplastic in nature. I have discussed my assessment with SERGEI Klein and orders have been reviewed. Charges/Coding Visit Charges Inpatient E&M: 29220 Subs Hosp L2
[2021-04-28] MEDS: Insulin Lispro 100 UNIT/ML INSULN.PEN SC ×3 (11:55→21:43)
[2021-04-28 12:15] LABS: Bedside Glucose 231 mg/dL (70-110)
[2021-04-28] MEDS: 0.9% Saline Lock 10 ML Syringe IV (15:27)
[2021-04-28] MEDS: Ondansetron 4 MG/2 ML Vial IV (15:27)
[2021-04-28 16:26] LABS: Bedside Glucose 237 mg/dL (70-110)
[2021-04-28] MEDS: Insulin U-500 UNITS/ML PEN 75 UNITS SC (17:21)
[2021-04-28] MEDS: Loratadine 10 MG Tablet PO (21:39)
[2021-04-28] MEDS: carBAMazepine 200 MG Tablet PO (21:39)
[2021-04-28] MEDS: Pramipexole Di-HCl 0.5 MG Tablet PO (21:39)
[2021-04-28] MEDS: Atorvastatin Calcium 40 MG Tablet PO (21:40)
[2021-04-29] VITALS (10 sets, daily range): BP systolic 112–178; BP diastolic 50–78; PULSE 66–81; RESP 12–20; TEMP 36.5–36.7; O2SAT 93–99
[2021-04-29 00:30] LABS: Bedside Glucose 243 mg/dL (70-110)
[2021-04-29] MEDS: Nystatin Powder 15gm Bottle 1 APPLIC TOPICAL (06:11)
[2021-04-29] MEDS: 0.9% Saline Lock 10 ML Syringe IV (06:13)
[2021-04-29] MEDS: Ipratropium/Albuterol Sulfate 3 ML AMPUL.NEB INHALATION ×2 (07:16→10:22)
[2021-04-29 07:51] LABS: Bedside Glucose 114 mg/dL (70-110)
[2021-04-29 08:16] LABS: Absolute Lymphocyte Count 0.65 X10^3/uL (0.83-4.51); Absolute Neutrophil Count 7.1 X10^3/uL (2.0-7.7); Basophil# 0.03 X10^3/uL; Basophil% 0.3 % (0-1); Eosinophil# 0.27 X10^3/uL; Eosinophils% 3.1 % (0-5); Hematocrit 28.1 % (37-47); Hemoglobin 9.1 g/dL (12.0-15.0); Lymphocyte # 0.65 X10^3/ul (0.83-4.51); Lymphocyte % 7.5 % (19-41); Mean Corp Hgb Conc 32.4 g/dL (32-36); Mean Corpuscular Hgb 29.4 pg (27.0-32.0); Mean Corpuscular Volume 90.6 fL (81-99); Mean Platelet Vol. 9.8 fl (6.2-12.0); Monocyte# 0.53 X10^3/uL; Monocyte% 6.1 % (0-10); NRBC Flagged by Analyzer 0 % (0-5); Neutrophil # 7.13 X10^3/uL (2.7-7.7); Neutrophil % 82.5 % (47-70); Platelet Count 173 K/mm3 (150-450); RBC Distribution Width SD 59.7 fl (35.1-43.9); White Blood Count 8.7 K/mm3 (4.4-11.0)
[2021-04-29 08:47] LABS: Anion Gap 8 (5-15); BUN 19 mg/dL (7-18); BUN/Creat Ratio 26.7 RATIO (10-20); Calcium,Total 8.9 mg/dL (8.5-10.1); Chloride 103 mmol/L (98-107); Creatinine, Serum 0.71 mg/dL (0.55-1.02); EST Glomerular Filtration Rate 85 mL/min (>60); Est Glom Filt Rate - Afr Amer 103 mL/min (>60); Estimated Creatinine Clearance 40.83 ml/min; Glucose 109 mg/dL (74-106); Potassium 3.7 mmol/L (3.5-5.1); Sodium Level 137 mmol/L (136-145)
[2021-04-29] MEDS: Enoxaparin 40 MG/0.4 ML Syringe SC (09:06)
[2021-04-29] MEDS: Methylphenidate HCl 5 MG Tablet 20 MG PO (09:07)
[2021-04-29] MEDS: Nadolol 40 MG Tablet PO (09:07)
[2021-04-29] MEDS: Paroxetine 20 MG Tablet 40 MG PO (09:07)
[2021-04-29] MEDS: guaiFENesin 1,200 MG Tablet 1200 MG PO (09:07)
[2021-04-29] MEDS: Pantoprazole Sodium 40 MG Tablet PO (09:07)
[2021-04-29] MEDS: Potassium Chloride Oral Tablet 10 MEQ PO (09:07)
[2021-04-29] MEDS: predniSONE 20 MG Tablet 40 MG PO (09:07)
[2021-04-29] MEDS: Montelukast 10 MG Tablet PO (09:07)
--- NOTE | 2021-04-29 10:50 | PCM.DC ---
Discharge Instructions Diet Discharge Diet: No restrictions Activity Discharge Activity: Return to Normal Activity Weight Bearing Status: Weight bearing as tolerated Dressing / Incision Call your doctor if you observe: Fever of 101 or Higher, Numbness or Tingling, Shortness of breath, Dizziness, Chest pain, Increased palpitations (irregular heartbeat) and Calf discomfort Follow Up Care Please Follow Up With: Primary care provider When: Within the next two weeks. Test Results: Test results from this visit will be discussed in further detail at your follow-up appointment, if applicable. Discharge Plan Admission Admit Date/Time: 04/22/21 18:13 Primary Reason for Your Visit: Shortness of breath Attending Provider: Lorenzo Gold Primary Care Provider: Senait Jay Consulting Providers: Dre Watters V ; César Oviedo ; Yary Alas ; Alessandra Crouch ; Gus Ricardo ; Mckinley Pires Discharge Orders/Prescriptions Prescriptions: New prednisone 20 mg tablet 20 mg PO DAILY Qty: 4 RF: 0 Continued pramipexole 0.5 MG tablet 0.5 mg PO QHS RF: 0 cholecalciferol (vitamin D3) 50,000 UNIT capsule 50,000 unit PO SUWE@0800 RF: 0 albuterol sulfate 2.5 MG/3 ML solution for nebulization 2.5 mg INHALATION Q2H PRN PRN (Reason: Dyspnea, wheezing) Qty: 1 RF: 0 albuterol sulfate [ProAir HFA] 1 PUFF inhaler 2 puff inhalation Q6H PRN PRN (Reason: Dyspnea/Wheezing/Sob) RF: 0 budesonide [Rhinocort Allergy] 8.43 ML spray,non-aerosol 2 puff NARES DAILY RF: 0 carbamazepine 200 MG tablet 200 mg PO QHS RF: 0 methylphenidate HCl 20 MG tablet extended release 20 mg PO BID RF: 0 nadolol 40 MG tablet 40 mg PO DAILY RF: 0 paroxetine HCl [Paxil] 40 MG tablet 40 mg PO DAILY RF: 0 loperamide 2 MG capsule 2 mg PO Q4H PRN PRN (Reason: DIARRHEA) RF: 0 montelukast 10 MG tablet 10 mg PO DAILY RF: 0 levocetirizine 5 MG tablet 5 mg PO QHS RF: 0 nystatin 1 APPLIC bottle 1 applic TOPICAL BID RF: 0 potassium chloride 10 MEQ tablet 10 meq PO DAILYCM RF: 0 insulin regular hum U-500 conc 500 UNITS/ML insulin pen 85 units SQ DINNER RF: 0 insulin regular hum U-500 conc 500 UNITS/ML insulin pen 95 units SQ BREAKFAST RF: 0 rosuvastatin 20 mg tablet 20 mg PO QHS RF: 0 prednisone 10 MG tablet 10 mg PO UD Qty: 18 RF: 0 Discontinued prednisone 10 mg tablet See Taper mg PO DAILY Qty: 30 RF: 0 levofloxacin 750 mg tablet 750 mg PO DAILY Qty: 5 RF: 0 Referrals / Follow Up: Senait Jay MD [Primary Care Provider] - Within 2 Weeks Dre Watters MD [STAFF PHYSICIAN] - Within 1 Week Disposition Disposition (needs filled in before D/C Order can be placed): Home, Self Care
[2021-04-29] MEDS: Mag Hydrox/Al Hydrox/Simeth 30 ML UDC PO (11:00)
--- NOTE | 2021-04-29 11:18 | PHA.DC.MR ---
Pharmacy Service has performed discharge medication reconciliation for this patient. The patient's discharge medication list was reviewed for discrepancies and discrepancies were resolved. This [facility] spoke to kory Danielson to discontinue duplicate prednisone orders. Home Medications cholecalciferol (vitamin D3) 50,000 unit PO SUWE@0800 06/01/17 pramipexole 0.5 mg PO QHS 06/01/17 albuterol sulfate 2.5 mg INHALATION Q2H PRN PRN #1 box 11/26/17 albuterol sulfate [ProAir HFA] 2 puff INHALATION Q6H PRN PRN 03/25/18 budesonide [Rhinocort Allergy] 2 puff NARES DAILY 06/12/18 carbamazepine 200 mg PO QHS 03/01/19 methylphenidate HCl 20 mg PO BID 03/01/19 nadolol 40 mg PO DAILY 03/01/19 paroxetine HCl [Paxil] 40 mg PO DAILY 03/01/19 loperamide 2 mg PO Q4H PRN PRN cap 10/08/19 insulin regular hum U-500 conc 85 units SQ DINNER 03/22/20 levocetirizine 5 mg PO QHS 03/22/20 montelukast 10 mg PO DAILY 03/22/20 nystatin 1 applic TOPICAL BID 03/22/20 potassium chloride 10 meq PO DAILYCM 03/22/20 insulin regular hum U-500 conc 95 units SQ BREAKFAST 08/12/20 rosuvastatin 20 mg PO QHS 12/06/20 prednisone 20 mg PO DAILY #4 tab 04/29/21
--- NOTE | 2021-04-29 11:46 | CASEMGMT ---
This JASWINDER CM to room to discuss discharge plan with pt at this time. Pt states she would like a WW at discharge and states no preference on DME company. Script faxed to [facility] so that pt can take walker home with her. Pt also states would like [facility] set up again and order placed for SN, PT/OT. Niru at [facility] updated on referral and states SOC would be 05/02/21. Pt does not qualify for increased home oxygen at this time and states no further concerns with going home at discharge. Pt states has family support. Ginger SAN CM
[2021-04-29] MEDS: Insulin Lispro 100 UNIT/ML INSULN.PEN SC (11:58)
[2021-04-29 12:05] LABS: Bedside Glucose 219 mg/dL (70-110)
--- NOTE | 2021-04-29 13:46 | DS.PCM_ITS ---
Documented by User: Marlo MAI 04/29/21 13:56 Providers Date of Admission: 04/22/21 Primary Care Physician: Dr. Senait Jay MD Consultations 04/22/21 18:49 Consult: [employer] / Pulmonary Medicine Routine Consulting Provider: Dre Watters V Reason for Consult: Non resolving pneumonia/NSCLC EMERGENT Consult: No Notified: Yes Date Notified: 04/23/21 Time Notified: 08:27 Method of Notification: Verbal Consult: Oncology/Hematology Routine Consulting Provider: [facility] Fabien Reason for Consult: Immunocompromised host, NSCLC EMERGENT Consult: No Notified: Yes Date Notified: 04/22/21 Time Notified: 07:54 Method of Notification: Verbal Reason For Visit: NON RESOLVING PNEUMONIA, NSCLC Diagnosis Discharge Diagnosis (1) Streptococcal pneumonia: Status: Ruled-out Code(s): J15.4 - Pneumonia due to other streptococci Medications at Discharge Home Medications cholecalciferol (vitamin D3) 50,000 unit PO SUWE@0800 06/01/17 pramipexole 0.5 mg PO QHS 06/01/17 albuterol sulfate 2.5 mg INHALATION Q2H PRN PRN #1 box 11/26/17 albuterol sulfate [ProAir HFA] 2 puff INHALATION Q6H PRN PRN 03/25/18 budesonide [Rhinocort Allergy] 2 puff NARES DAILY 06/12/18 carbamazepine 200 mg PO QHS 03/01/19 methylphenidate HCl 20 mg PO BID 03/01/19 nadolol 40 mg PO DAILY 03/01/19 paroxetine HCl [Paxil] 40 mg PO DAILY 03/01/19 loperamide 2 mg PO Q4H PRN PRN cap 10/08/19 insulin regular hum U-500 conc 85 units SQ DINNER 03/22/20 levocetirizine 5 mg PO QHS 03/22/20 montelukast 10 mg PO DAILY 03/22/20 nystatin 1 applic TOPICAL BID 03/22/20 potassium chloride 10 meq PO DAILYCM 03/22/20 insulin regular hum U-500 conc 95 units SQ BREAKFAST 08/12/20 rosuvastatin 20 mg PO QHS 12/06/20 prednisone 20 mg PO DAILY #4 tab 04/29/21 Hospital Course Summary of Care Provided Minutes Spent on Discharge: 35 Hospital Course: Patient is a 75-year-old female who was admitted to the hospital on 04/22/2021 for management of recurrent multifocal pneumonia. Patient was placed on vancomycin and Zosyn empirically. Sputum cultures were obtained and grew Pseudomonas that was sensitive to Zosyn. Blood cultures demonstrated no growth. Legionella and strep pneumo urinary antigens were negative. Patient was kept on Zosyn for 7-day course, which was completed on day of discharge 04/29/2021. On day of discharge patient reported significant provement in her shortness of breath and was satting 95% on 2 L via nasal cannula. Pulmonology was consulted and recommended that patient be discharged on prednisone and follow-up in the office within the next 1 to 2 weeks. Patient was not discharged on any outpatient antibiotics as she was on a 4-week course of Zosyn. All other home medications were continued. Patient is to follow-up with primary care provider within the next 2 weeks. Patient seen by Marlo Roy PA-C, under the supervision of Dr. Gold. Physical Exam Narrative Patient is a 75-year-old female comfortably resting in a chair, alert and oriented x3. Patient reports improvement of her shortness of breath remission, denies development of any new symptoms overnight. Const alert, oriented x3 and no apparent distress HEENT normocephalic, head/scalp atraumatic and hearing grossly normal bilaterally Eyes PERRL, EOMs intact bilaterally and conjunctivae normal Neck no lymphadenopathy, supple and no JVD Resp normal respiratory effort, no retractions, no use of accessory muscles and clear to auscultation bilaterally Cardio regular rate, regular rhythm, no murmurs and no JVD GI normal to inspection, nondistended, normoactive bowel sounds, soft to palpation and non-tender Extremity normal to inspection, full ROM and no clubbing, cyanosis or edema Skin no rashes or lesions noted, no wounds and skin turgor normal Neuro CN's II-XII intact bilaterally Psych affect normal Weight / BMI Weight Weight: 296 lb 1.293 oz Body Mass Index (BMI) 52.2 ABG / Lab / Microbiology Data Result Diagrams: 04/29/21 07:36 04/29/21 07:36 Laboratory: Laboratory Results - last 24 hr 04/28/21 16:20: POC Glucose 237 H 04/28/21 21:36: POC Glucose 243 H 04/29/21 07:36: WBC 8.7, RBC 3.10 L, Hgb 9.1 L, Hct 28.1 L, MCV 90.6, MCH 29.4, MCHC 32.4, RDW Std Deviation 59.7 H, RDW Coeff of Aniceto 18.0 H, Plt Count 173, MPV 9.8, Immature Gran % (Auto) 0.500, Neut % (Auto) 82.5 H, Lymph % (Auto) 7.5 L, [place] % (Auto) 6.1, Eos % (Auto) 3.1, Baso % (Auto) 0.3, Absolute Neuts (auto) 7.1, Absolute Lymphs (auto) 0.65 L, Nucleated RBC % 0 04/29/21 07:36: Sodium 137, Potassium 3.7, Chloride 103, Carbon Dioxide 26.0, Anion Gap 8, BUN 19 H, Creatinine 0.71, Estim Creat Clear Calc 40.83, Est GFR (MDRD) Af Amer 103, Est GFR (MDRD) Non-Af 85, BUN/Creatinine Ratio 26.7 H, Glucose 109 H, Calcium 8.9 04/29/21 07:44: POC Glucose 114 H 04/29/21 11:57: POC Glucose 219 H Microbiology: Microbiology 04/23/21 05:14 Blood Culture (Wb) - Left Hand Blood Culture - Final No growth in 5 days. 04/22/21 21:07 Blood Culture (Wb) - Left Hand Blood Culture - Final No growth in 5 days. 04/23/21 08:00 Sputum, Expectorated/Coughed Gram Stain - Final 04/23/21 08:00 Sputum, Expectorated/Coughed Respiratory Culture - Final Pseudomonas aeroginosa#2 Pseudomonas aeroginosa 04/22/21 22:39 Urine, Clean Catch Streptococcus pneumoniae Antigen (M - Final 04/22/21 22:39 Urine, Clean Catch Legionella Antigen - Final 04/22/21 19:50 Mucosa - Nasopharyngeal Respiratory Panel (PCR) - Final 04/22/21 13:55 Nasal Secretion SARS-CoV-2 Antigen (Rapid) - Final D/C Instructions Discharge Diet: No restrictions Weight Bearing Status: Weight bearing as tolerated Call your doctor if you observe: Fever of 101 or Higher, Numbness or Tingling, Shortness of breath, Dizziness, Chest pain, Increased palpitations (irregular heartbeat) and Calf discomfort Please Follow Up With: Primary care provider When: Within the next two weeks. Meaningful Use Info Meaningful Use Diagnoses (Choose all that apply): None applicable Discharge Plan Admission Admit Date/Time: 04/22/21 18:13 Primary Reason for Your Visit: Shortness of breath Attending Provider: Lorenzo Gold Primary Care Provider: Senait Jay Consulting Providers: Dre Watters V ; César Oviedo ; Yary Alas ; Alessandra Crouch ; Gus Ricardo ; Mckinley Pires Discharge Orders/Prescriptions Prescriptions: New prednisone 20 mg tablet 20 mg PO DAILY Qty: 4 RF: 0 Continued pramipexole 0.5 MG tablet 0.5 mg PO QHS RF: 0 cholecalciferol (vitamin D3) 50,000 UNIT capsule 50,000 unit PO SUWE@0800 RF: 0 albuterol sulfate 2.5 MG/3 ML solution for nebulization 2.5 mg INHALATION Q2H PRN PRN (Reason: Dyspnea, wheezing) Qty: 1 RF: 0 albuterol sulfate [ProAir HFA] 1 PUFF inhaler 2 puff inhalation Q6H PRN PRN (Reason: Dyspnea/Wheezing/Sob) RF: 0 budesonide [Rhinocort Allergy] 8.43 ML spray,non-aerosol 2 puff NARES DAILY RF: 0 carbamazepine 200 MG tablet 200 mg PO QHS RF: 0 methylphenidate HCl 20 MG tablet extended release 20 mg PO BID RF: 0 nadolol 40 MG tablet 40 mg PO DAILY RF: 0 paroxetine HCl [Paxil] 40 MG tablet 40 mg PO DAILY RF: 0 loperamide 2 MG capsule 2 mg PO Q4H PRN PRN (Reason: DIARRHEA) RF: 0 montelukast 10 MG tablet 10 mg PO DAILY RF: 0 levocetirizine 5 MG tablet 5 mg PO QHS RF: 0 nystatin 1 APPLIC bottle 1 applic TOPICAL BID RF: 0 potassium chloride 10 MEQ tablet 10 meq PO DAILYCM RF: 0 insulin regular hum U-500 conc 500 UNITS/ML insulin pen 85 units SQ DINNER RF: 0 insulin regular hum U-500 conc 500 UNITS/ML insulin pen 95 units SQ BREAKFAST RF: 0 rosuvastatin 20 mg tablet 20 mg PO QHS RF: 0 Discontinued prednisone 10 mg tablet See Taper mg PO DAILY Qty: 30 RF: 0 prednisone 10 MG tablet 10 mg PO UD Qty: 18 RF: 0 levofloxacin 750 mg tablet 750 mg PO DAILY Qty: 5 RF: 0 Referrals / Follow Up: Senait Jay MD [Primary Care Provider] - Within 2 Weeks (Please call to setup an appointment) Dre Watters MD [STAFF PHYSICIAN] - 05/06/21 11:15 am Disposition Disposition (needs filled in before D/C Order can be placed): Home, Self Care Documented by User: Dr. Lorenzo Gold MD 04/29/21 16:19 Providers Date of Admission: 04/22/21 Reason For Visit: NON RESOLVING PNEUMONIA, NSCLC Medications at Discharge Home Medications cholecalciferol (vitamin D3) 50,000 unit PO SUWE@0800 06/01/17 pramipexole 0.5 mg PO QHS 06/01/17 albuterol sulfate 2.5 mg INHALATION Q2H PRN PRN #1 box 11/26/17 albuterol sulfate [ProAir HFA] 2 puff INHALATION Q6H PRN PRN 03/25/18 budesonide [Rhinocort Allergy] 2 puff NARES DAILY 06/12/18 carbamazepine 200 mg PO QHS 03/01/19 methylphenidate HCl 20 mg PO BID 03/01/19 nadolol 40 mg PO DAILY 03/01/19 paroxetine HCl [Paxil] 40 mg PO DAILY 03/01/19 loperamide 2 mg PO Q4H PRN PRN cap 10/08/19 insulin regular hum U-500 conc 85 units SQ DINNER 03/22/20 levocetirizine 5 mg PO QHS 03/22/20 montelukast 10 mg PO DAILY 03/22/20 nystatin 1 applic TOPICAL BID 03/22/20 potassium chloride 10 meq PO DAILYCM 03/22/20 insulin regular hum U-500 conc 95 units SQ BREAKFAST 08/12/20 rosuvastatin 20 mg PO QHS 12/06/20 prednisone 20 mg PO DAILY #4 tab 04/29/21 Hospital Course Summary of Care Provided Hospital Course: This patient was seen in conjunction with SERGEI Klein. I have independently interviewed and examined the patient and reviewed pertinent history, examination findings, laboratory and plan of management. I have reviewed the note and agree with the documented findings with the few additional points. In brief, patient is admitted for nonresolving pneumonia for more than 3 weeks. She had Augmentin, 2 rounds of Levaquin as an outpatient. She completed 6 rounds of chemotherapy and radiotherapy in latter half of March 2021. Follows Dr. Crouch. Discussed with ID and agrees with 7 days of IV Zosyn.Sputum culture shows Pseudomonas aeruginosa 1+; and sensitive to Zosyn. Patient treated for 7 days and got better. Patient is getting benefit from bronchodilator and continue it. History of non-small cell lung cancer, completed chemo and radiotherapy. Diabetes mellitus type 2 and chronic normocytic normochromic anemia probably bonnie plastic in nature. Discharge medication reconciliation done. Discharge follow-up instructions comp leted. Discharge process discussed with the patient and all questions were answered to patient's satisfaction. Follow-up PCP in 1 week and oncologist in 2 weeks. Patient might need outpatient PT and OT. Discharge with home with home health care Total time spent, exact 35 minutes on discharge meds reconciliation, examination, coordination of care with nurses and ancillary staff, review of imaging and blood test and discussion with the patient on follow-up instructions I have discussed my assessment with SERGEI Klein and orders have been reviewed. Physical Exam Narrative Seen and examined. Patient shortness of breath, cough and dyspnea got better. No fever. Patient expressed her concern regarding starting immunotherapy for lung cancer. I advised to discuss with oncologist Dr. Crouch and probably will need chest x-ray 4 weeks from now to see resolution of consultation before considering immunotherapy. General: Alert, Oriented x3, Cooperative, morbid obesity BMI 52.5 kg/m? HEENT: Atraumatic, PERRLA, EOMI, Normocephalic Oral: No Gingival or Mucosal Lesions/ Ulcerations Neck: Supple, No JVD, Negative Carotid Bruits Lungs: Air entry diminished in bilateral lungs. Lungs clear. No dyspnea at rest Cardiovascular: Regular rate, Regular Rhythm, Normal S1, Normal S2, No murmurs Abdomen: Bowel Sounds Present, Soft, Non Tender, Non-Distended : No renal angle tenderness. No suprapubic tenderness. Extremities: No edema, Capillary Refill Less than 3 Seconds Skin: No rashes, No breakdown Musculoskeletal: No Tenderness to Palpation of Joints or Extremities Neurological: Cranial nerves II-XII grossly intact, DTR 2+/4 and Symmetrical Psych/Mental Status: Flat affect. ABG / Lab / Microbiology Data Result Diagrams: 04/29/21 07:36 04/29/21 07:36 Discharge Plan Admission Admit Date/Time: 04/22/21 18:13 Primary Reason for Your Visit: Shortness of breath Attending Provider: Lorenzo Gold Primary Care Provider: Senait Jay Consulting Providers: Dre Watters V ; César Oviedo ; Yary Alas ; Alessandra Crouch ; Gus Ricardo ; Mckinley Pires Discharge Orders/Prescriptions Prescriptions: New prednisone 20 mg tablet 20 mg PO DAILY Qty: 4 RF: 0 Continued pramipexole 0.5 MG tablet 0.5 mg PO QHS RF: 0 cholecalciferol (vitamin D3) 50,000 UNIT capsule 50,000 unit PO SUWE@0800 RF: 0 albuterol sulfate 2.5 MG/3 ML solution for nebulization 2.5 mg INHALATION Q2H PRN PRN (Reason: Dyspnea, wheezing) Qty: 1 RF: 0 albuterol sulfate [ProAir HFA] 1 PUFF inhaler 2 puff inhalation Q6H PRN PRN (Reason: Dyspnea/Wheezing/Sob) RF: 0 budesonide [Rhinocort Allergy] 8.43 ML spray,non-aerosol 2 puff NARES DAILY RF: 0 carbamazepine 200 MG tablet 200 mg PO QHS RF: 0 methylphenidate HCl 20 MG tablet extended release 20 mg PO BID RF: 0 nadolol 40 MG tablet 40 mg PO DAILY RF: 0 paroxetine HCl [Paxil] 40 MG tablet 40 mg PO DAILY RF: 0 loperamide 2 MG capsule 2 mg PO Q4H PRN PRN (Reason: DIARRHEA) RF: 0 montelukast 10 MG tablet 10 mg PO DAILY RF: 0 levocetirizine 5 MG tablet 5 mg PO QHS RF: 0 nystatin 1 APPLIC bottle 1 applic TOPICAL BID RF: 0 potassium chloride 10 MEQ tablet 10 meq PO DAILYCM RF: 0 insulin regular hum U-500 conc 500 UNITS/ML insulin pen 85 units SQ DINNER RF: 0 insulin regular hum U-500 conc 500 UNITS/ML insulin pen 95 units SQ BREAKFAST RF: 0 rosuvastatin 20 mg tablet 20 mg PO QHS RF: 0 Discontinued prednisone 10 mg tablet See Taper mg PO DAILY Qty: 30 RF: 0 prednisone 10 MG tablet 10 mg PO UD Qty: 18 RF: 0 levofloxacin 750 mg tablet 750 mg PO DAILY Qty: 5 RF: 0 Referrals / Follow Up: Senait Jay MD [Primary Care Provider] - Within 2 Weeks (Please call to setup an appointment) Dre Watters MD [STAFF PHYSICIAN] - 05/06/21 11:15 am Disposition Disposition (needs filled in before D/C Order can be placed): Home, Self Care Charges/Coding Visit Charges Inpatient E&M: 66832 Disch Hosp
== END 2021-04-29 14:28 | disposition home or self-care (01) | DRG 178 ==
LOC: ED 17:46 → PCU 18:24
PROVIDERS: Nurse Practitioner Family; Admitting Provider Internal Medicine; Emergency Provider Emergency Medicine; PCP Internal Medicine; Visit Provider Internal Medicine
DX: J15.1 Pneumonia due to Pseudomonas (principal); Z68.43 Body mass index [BMI] 50.0-59.9, adult; C34.31 Malignant neoplasm of lower lobe, right bronchus or lung; D84.821 Immunodeficiency due to drugs; J44.0 Chronic obstructive pulmonary disease with (acute) lower respiratory infection; J45.51 Severe persistent asthma with (acute) exacerbation; K52.1 Toxic gastroenteritis and colitis; J44.1 Chronic obstructive pulmonary disease with (acute) exacerbation; J96.11 Chronic respiratory failure with hypoxia; D63.0 Anemia in neoplastic disease; T45.1X5A Adverse effect of antineoplastic and immunosuppressive drugs, initial encounter; I10 Essential (primary) hypertension; E11.9 Type 2 diabetes mellitus without complications; E78.5 Hyperlipidemia, unspecified; E66.01 Morbid (severe) obesity due to excess calories; K21.9 Gastro-esophageal reflux disease without esophagitis; G47.419 Narcolepsy without cataplexy; G43.909 Migraine, unspecified, not intractable, without status migrainosus; G47.33 Obstructive sleep apnea (adult) (pediatric); F32.A Depression, unspecified; F41.9 Anxiety disorder, unspecified; Z90.11 Acquired absence of right breast and nipple; Z79.4 Long term (current) use of insulin; Z99.81 Dependence on supplemental oxygen; Z79.899 Other long term (current) drug therapy; Z87.891 Personal history of nicotine dependence; Z85.3 Personal history of malignant neoplasm of breast
CPT/HCPCS: 36415; 36591; 71046; 71275; 80048; 80053; 80202; 82607; 82728; 82746; 82962; 83540; 83550; 83605; 83735; 84100; 85025; 87040; 87070; 87077; 87186; 87205; 87426; 87449; 87633; 87641; 93005; 94002; 94003; 94640; 94668; 97110; 97162; 97166; 97530; 97535; 99251; 99284; J7030; J7040; Q9967; A4216; G0463; J2405

== ENCOUNTER → 2021-05-06 14:05 | Outpatient (CLI) | payer MEDICARE, SELFPAY | PROVIDERS: PCP Internal Medicine; Referring Provider Internal Medicine Pulmonary Disease; Visit Provider Internal Medicine Pulmonary Disease | DX: J45.51 Severe persistent asthma with (acute) exacerbation (principal) | CPT/HCPCS: 87070; 87077; 87186; 87205 ==

== ENCOUNTER 2021-06-18 17:12 | Inpatient (IN) | payer MEDICARE, SELFPAY ==
[2021-06-18] VITALS (7 sets, daily range): BP systolic 105–144; BP diastolic 41–94; PULSE 94–111; RESP 15–24; TEMP 36.8–37.6; O2SAT 96–99; BMI 51.1
--- NOTE | 2021-06-18 17:44 | EKG12_ITS ---
Test Reason : SOB Blood Pressure : / mmHG Vent. Rate : 108 BPM Atrial Rate : 108 BPM P-R Int : 170 ms QRS Dur : 070 ms QT Int : 356 ms P-R-T Axes : 085 006 081 degrees QTc Int : 477 ms Sinus tachycardia with Premature supraventricular complexes Nonspecific ST abnormality Abnormal ECG Confirmed by JEFERSON RIVERA, GENIA ([id number]), editor city CAROL VARGAS ([id number]) on 06/19/2021 1:31:42 PM Referred By: ADONIS Confirmed By:BEAR GOVEA MD
--- NOTE | 2021-06-18 17:46 | ED.VIS.DYS ---
HPI History of Present Illness Chief Complaint: Shortness of Breath Narrative Narrative: Patient with past medical history of diabetes, obstructive sleep apnea, lung carcinoma, wears oxygen at all times presents from home via EMS with increasing shortness of breath. She states her symptoms started today. It was also reported by EMS that she has generalized weakness. She states that she been having a hard time breathing but she denies any fevers or chills. No cough. No leg swelling. No dysuria or hematuria. No other symptoms. [facility] Medical History (Updated 06/18/21 @ 20:20 by Marcello Mckeon MD) Acute and chronic respiratory failure with hypoxia Acute bronchitis due to Rhinovirus Acute severe exacerbation of asthma Allergic rhinitis Anemia Anxiety Asthma Asthmatic bronchitis Body mass index (BMI) 50-59.9, adult Breast cancer Chronic diarrhea Chronic respiratory failure with hypoxia Dependence on supplemental oxygen Depression Diabetes mellitus, type II Former tobacco use GERD (gastroesophageal reflux disease) History of primary non-small cell carcinoma of right lung History of right breast cancer Hypertension Immunosuppressed due to chemotherapy Migraine headache Migraines Obstructive sleep apnea Osteoarthritis Sleep apnea Vitamin D deficiency Home Medications cholecalciferol (vitamin D3) 50,000 unit PO SUWE@0800 06/01/17 [History Last Taken 12/04/20] pramipexole 0.5 mg PO QHS 06/01/17 [History Last Taken 12/05/20] albuterol sulfate 2.5 mg INHALATION Q2H PRN PRN #1 box 11/26/17 [Rx Last Taken 12/05/20] albuterol sulfate [ProAir HFA] 2 puff INHALATION Q6H PRN PRN 03/25/18 [History Last Taken 12/05/20] budesonide [Rhinocort Allergy] 2 puff NARES DAILY 06/12/18 [History Last Taken 09/26/20] carbamazepine 200 mg PO QHS 03/01/19 [History Last Taken 12/05/20] methylphenidate HCl 20 mg PO BID 03/01/19 [History Last Taken 12/05/20] nadolol 40 mg PO DAILY 03/01/19 [History Last Taken 12/05/20] paroxetine HCl [Paxil] 40 mg PO DAILY 03/01/19 [History Last Taken 12/05/20] loperamide 2 mg PO Q4H PRN PRN cap 10/08/19 [Rx Last Taken 09/26/20] insulin regular hum U-500 conc 85 units SQ DINNER 03/22/20 [History Last Taken 12/05/20] levocetirizine 5 mg PO QHS 03/22/20 [History Last Taken 12/05/20] montelukast 10 mg PO DAILY 03/22/20 [History Last Taken 12/05/20] nystatin 1 applic TOPICAL BID 03/22/20 [History Last Taken 2 Days Ago ~12/04/20] potassium chloride 10 meq PO DAILYCM 03/22/20 [History Last Taken 12/05/20] insulin regular hum U-500 conc 95 units SQ BREAKFAST 08/12/20 [History Last Taken 12/05/20] rosuvastatin 20 mg PO QHS 12/06/20 [History Last Taken 12/05/20] prednisone 20 mg PO DAILY #4 tab 04/29/21 [Rx Last Taken Unknown] Allergy/AdvReac Type Severity Reaction Status Date / Time adhesive tape Allergy tears skin Verified 06/18/21 17:14 cefadroxil [From Duricef] Allergy Unknown Verified 06/18/21 17:14 gluten Allergy celiac Verified 06/18/21 17:14 disease mesalamine [From Asacol] Allergy Unknown Verified 06/18/21 17:14 omalizumab [From Xolair] Allergy Unknown Verified 06/18/21 17:14 Sulfa (Sulfonamide Allergy swelling Verified 06/18/21 17:14 Antibiotics) as an oxycodone AdvReac Vomiting Verified 06/18/21 17:14 Family History (Updated 06/18/21 @ 20:[address] Mindy Painter MD) Father Cancer Myocardial infarction Mother Cancer Metastatic breast CA Surgical History (Updated 06/18/21 @ 20:[address] Mindy Painter MD) H/O rectocele repair History of lymph node dissection of right axilla History of mastectomy History of partial hysterectomy Hx of bilateral cataract extraction Hx of carpal tunnel repair Social History (Updated 06/18/21 @ 20:[address] Mindy Painter MD) household members: spouse Smoking Status: Former smoker how long ago did patient quit smoking: Smoked x 2 years 1/2 ppd, quit ~ 50 years prior. alcohol intake: never substance use type: does not use ROS ROS ED ROS Narrative Constitutional: No fever, no chills. Generalized weakness. HEENT: No sore throat. No neck pain. No loss of vision. No rhinorrhea. Cardiovascular: No chest pain. No palpitations. No pedal edema. Respiratory: No cough, positive shortness of breath. Abdominal: No abdominal pain. No nausea. No vomiting. Genitourinary: No dysuria. No hematuria. Musculoskeletal: No myalgias. No arthralgias. Neurologic: No headaches. No dizziness. No lightheadedness. Skin: No rash. No change in color. Psychiatric: No depression. No anxiety. EXAM Physical Exam Narrative Exam Narrative: Afebrile. Vital signs noted. HEENT: Normocephalic. Atraumatic. PERRL, EOMI. Neck soft and supple. No point tenderness or step off. Cardiovascular: Positive tachycardia. No murmurs, rubs, or gallops appreciated. Respiratory: No tachypnea. Lungs clear to auscultation bilaterally. Diminished breath sounds bilateral bases. Gastrointestinal: Abdomen soft, nontender, with normoactive bowel sounds. No rebound or guarding. Neurological: Awake. Alert. Nonfocal, nonlateralizing. Skin: No rash. Normal color. No pallor. Musculoskeletal: No pedal edema. Full range of motion extremities. Const Vital Signs: 06/18/21 17:14 06/18/21 17:19 06/18/21 19:29 Temperature 98.3 F Temperature Source Temporal Pulse Rate 109 H 111 H 103 H Respiratory Rate 21 H 24 H Respiratory Effort Normal Respiratory Depth Normal Respiratory Pattern Normal Blood Pressure 113/94 H 113/94 H 144/54 H Blood Pressure Mean 100 100 84 Pulse Ox 96 96 96 Oxygen Delivery Method Nasal Cannula Room Air Nasal Cannula Oxygen Flow Rate (L/min) 2 2 2 MDM MDM MDM Narrative Medical decision making narrative: Comprehensive work-up was pursued. She is satting well on 2-1/2 L per nasal cannula. Her EKG demonstrates sinus tachycardia with premature supraventricular complexes at a rate of 108. No acute ST changes. She has an elevated white count of 21.9, hemoglobin stable at 9.7 with hematocrit 31.0. Platelet count normal at 307. Her lactic acid is slightly elevated 2.2 but has been in the past. B natruretic peptide normal at 47. She was bolused normal saline 1 L intravenously. Electrolyte panel shows sodium slightly low 134. Normal potassium. High-sensitivity troponin negative. I reviewed her prior records. She has had CTAs in the past. She has a recurrent pneumonia or possibly return of her malignancy as she states that she has right-sided lung cancer did in the past. She was started on Zosyn. I discussed the patient with Dr. Painter for admission to the general medical floor. She is in stable condition. Lab Data Attestation: I reviewed the patient's lab results. Labs: Laboratory Results - last 24 hr 06/18/21 06/18/21 06/18/21 17:30 17:50 17:50 WBC 21.9 H RBC 3.62 L Hgb 9.7 L Hct 31.0 L MCV 85.6 MCH 26.8 L MCHC 31.3 L RDW Std Deviation 51.8 H RDW Coeff of Aniceto 16.3 H Plt Count 307 MPV 9.5 Immature Gran % (Auto) 0.800 Neut % (Auto) 88.2 H Lymph % (Auto) 4.7 L [place] % (Auto) 5.7 Eos % (Auto) 0.3 Baso % (Auto) 0.3 Absolute Neuts (auto) 19.4 H Absolute Lymphs (auto) 1.03 Nucleated RBC % 0 Sodium Potassium Chloride Carbon Dioxide Anion Gap BUN Creatinine Estim Creat Clear Calc Est GFR (MDRD) Af Amer Est GFR (MDRD) Non-Af BUN/Creatinine Ratio Glucose Lactic Acid 2.2 H* Calcium Troponin I High Sens B-Natriuretic Peptide 47.0 06/18/21 18:15 WBC RBC Hgb Hct MCV MCH MCHC RDW Std Deviation RDW Coeff of Aniceto Plt Count MPV Immature Gran % (Auto) Neut % (Auto) Lymph % (Auto) [place] % (Auto) Eos % (Auto) Baso % (Auto) Absolute Neuts (auto) Absolute Lymphs (auto) Nucleated RBC % Sodium 134 L Potassium 3.8 Chloride 98 Carbon Dioxide 30.0 Anion Gap 6 BUN 17 Creatinine 0.84 Estim Creat Clear Calc 48.61 Est GFR (MDRD) Af Amer 85 Est GFR (MDRD) Non-Af 71 BUN/Creatinine Ratio 20.3 H Glucose 185 H Lactic Acid Calcium 9.2 Troponin I High Sens 12 B-Natriuretic Peptide ABG Data ABG results: ABG 06/18/21 18:22 Specimen Type ART Sample Site R Radial pH 7.57 H Bicarbonate Actual 27.6 H Total CO2 29 Base Excess 6 H O2 Saturation 95 ABG pCO2 30.0 L ABG pO2 61 L Vamsi Test Positive O2 Delivery Device Cannula Liter Flow 2.0 Radiography Diagnostic Testing: Clinical Impression(s) from Imaging Studies Chest CTA 06/18/21 17:49 IMPRESSION: No demonstrated pulmonary embolism or arterial dissection. Consolidation, groundglass opacity and bronchiectasis throughout the right lung likely represents chronic changes with superimposed pneumonia. Malignancy is not excluded. Enlarged right mediastinal and hilar lymph nodes are nonspecific. Electronically Signed: Von Santana MD at 19:41 EST Tel , Service support , Discharge Plan Dx/Rx/DC Orders Clinical Impression: Pneumonia, SOB (shortness of breath), Sepsis Disposition Disposition: Acute Care [facility]
--- NOTE | 2021-06-18 17:49 | CT_ITS ---
STUDY: CTA CHEST REASON FOR EXAM: Female, 75 years old. Shortness of breath RADIATION DOSAGE (If Supplied By Facility): CTDIvol = ( 15.04 ) mGy, DLP = ( 512.15 ) mGycm TECHNIQUE: The examination was performed with the intravenous administration of IV 100mL Isovue-370. Post-processing of the angiographic images was performed, with multiplanar reformation and 3D reconstruction. Individualized dose optimization techniques were used for this CT. COMPARISON: 04/22/2021 FINDINGS: PICC tip terminates in the inferior SVC. Normal enhancement of the main pulmonary artery and right and left pulmonary arteries. Normal enhancement of the bilateral peripheral pulmonary arteries. There is no demonstrated pulmonary embolism. Normal thoracic aorta and visualized great vessels. There is no demonstrated aortic dissection. There are calcifications of the coronary arteries. Borderline enlarged mediastinal and right hilar lymph nodes. Narrowing of the right mainstem bronchus There is extensive bronchiectasis of the right lower lobe and groundglass pulmonary opacities throughout the right lung with dense consolidation of the right upper lobe. Clear left lung. Normal chest wall structures. Normal osseous structures. Cirrhosis. CT/CTA Chest W/WO Contrast IMPRESSION: No demonstrated pulmonary embolism or arterial dissection. Consolidation, groundglass opacity and bronchiectasis throughout the right lung likely represents chronic changes with superimposed pneumonia. Malignancy is not excluded. Enlarged right mediastinal and hilar lymph nodes are nonspecific. Electronically Signed: Von Santana MD at 19:41 EST Tel , Service support ,
[2021-06-18] MEDS: Ipratropium/Albuterol Sulfate 3 ML AMPUL.NEB INHALATION (17:53)
[2021-06-18 17:56] LABS: Absolute Lymphocyte Count 1.03 X10^3/uL (0.83-4.51); Absolute Neutrophil Count 19.4 X10^3/uL (2.0-7.7); Basophil# 0.06 X10^3/uL; Basophil% 0.3 % (0-1); Eosinophil# 0.07 X10^3/uL; Eosinophils% 0.3 % (0-5); Hemoglobin 9.7 g/dL (12.0-15.0); Lymphocyte # 1.03 X10^3/ul (0.83-4.51); Lymphocyte % 4.7 % (19-41); Mean Corp Hgb Conc 31.3 g/dL (32-36); Mean Corpuscular Hgb 26.8 pg (27.0-32.0); Mean Corpuscular Volume 85.6 fL (81-99); Mean Platelet Vol. 9.5 fl (6.2-12.0); Monocyte# 1.24 X10^3/uL; Monocyte% 5.7 % (0-10); NRBC Flagged by Analyzer 0 % (0-5); Neutrophil # 19.36 X10^3/uL (2.7-7.7); Neutrophil % 88.2 % (47-70); Platelet Count 307 K/mm3 (150-450); RBC Distribution Width CV 16.3 % (11.6-14.6); RBC Distribution Width SD 51.8 fl (35.1-43.9); Red Blood Count 3.62 M/mm3 (4.2-5.4); White Blood Count 21.9 K/mm3 (4.4-11.0)
[2021-06-18] MEDS: MethylPREDNISolone 125 MG/2 ML Vial IV (18:23)
[2021-06-18 18:26] LABS: Allen Test Positive; Base Excess 6 mmol/L (-2 to +2); Bicarbonate 27.6 mmol/L (22-26); Blood Gas Specimen Type ART; O2 Delivery Device Cannula; PO2 61 mmHG (75-100); SITE R Radial; SO2 95 % (95-99); Total Carbon Dioxide 29 mmol/L; pH 7.57 (7.35-7.45)
[2021-06-18 18:47] LABS: Anion Gap 6 (5-15); BUN 17 mg/dL (7-18); BUN/Creat Ratio 20.3 RATIO (10-20); Calcium,Total 9.2 mg/dL (8.5-10.1); Chloride 98 mmol/L (98-107); Creatinine, Serum 0.84 mg/dL (0.55-1.02); EST Glomerular Filtration Rate 71 mL/min (>60); Est Glom Filt Rate - Afr Amer 85 mL/min (>60); Estimated Creatinine Clearance 48.61 ml/min; Glucose 185 mg/dL (74-106); Potassium 3.8 mmol/L (3.5-5.1); Sodium Level 134 mmol/L (136-145); Troponin-I HS 12 pg/mL (3.0-54.0)
[2021-06-18 18:58] LABS: Lactic Acid 2.2 mmol/L (0.4-1.9)
[2021-06-18] MEDS: 0.9% Normal Saline 1,000 ML 999 ML IV (19:25)
--- NOTE | 2021-06-18 20:05 | PCM.HP.STD ---
HPI - General General Date of Admission: 06/18/21 Date of Service: 06/18/21 Chief Complaint: Dyspnea, cough. HPI Narrative The patient is a 75 y/o F w/ PMHx: Chronic hypoxic respiratory failure (2L NC), HTN, HLD, Anxiety and Depression/ADD, GERD, Celiac disease, Hx R sided breast CA, Hx NSC R lung CA, DORY on CPAP q HS, Morbid obesity, Asthma w/ allergic rhinitis who presents to the [facility] ED on 06/18/21 with worsening dyspnea above her baseline, fatigue and weakness with no recent fever or chills but not improving prompted ED evaluation. She notes that her has a chronic cough which is unchanged and has had no other symptoms. She notes that her dyspnea has been so severe she has hardly been able to walk in her home. 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 Of note patient did have 04/22/2021 CTA of the chest which again demonstrated focal areas of consolidation in the right upper, right middle and right lower lobes. [facility] Medical History (Updated 06/18/21 @ 20:[address] Mindy Painter MD) Acute and chronic respiratory failure with hypoxia Acute bronchitis due to Rhinovirus Acute severe exacerbation of asthma Allergic rhinitis Anemia Anxiety Asthma Asthmatic bronchitis Body mass index (BMI) 50-59.9, adult Breast cancer Chronic diarrhea Chronic respiratory failure with hypoxia Dependence on supplemental oxygen Depression Diabetes mellitus, type II Former tobacco use GERD (gastroesophageal reflux disease) History of primary non-small cell carcinoma of right lung History of right breast cancer Hypertension Immunosuppressed due to chemotherapy Migraine headache Migraines Obstructive sleep apnea Osteoarthritis Sleep apnea Vitamin D deficiency Home Medications cholecalciferol (vitamin D3) 50,000 unit PO SUWE@0800 06/01/17 [History Last Taken 12/04/20] pramipexole 0.5 mg PO QHS 06/01/17 [History Last Taken 12/05/20] albuterol sulfate 2.5 mg INHALATION Q2H PRN PRN #1 box 11/26/17 [Rx Last Taken 12/05/20] albuterol sulfate [ProAir HFA] 2 puff INHALATION Q6H PRN PRN 03/25/18 [History Last Taken 12/05/20] budesonide [Rhinocort Allergy] 2 puff NARES DAILY 06/12/18 [History Last Taken 09/26/20] carbamazepine 200 mg PO QHS 03/01/19 [History Last Taken 12/05/20] methylphenidate HCl 20 mg PO BID 03/01/19 [History Last Taken 12/05/20] nadolol 40 mg PO DAILY 03/01/19 [History Last Taken 12/05/20] paroxetine HCl [Paxil] 40 mg PO DAILY 03/01/19 [History Last Taken 12/05/20] loperamide 2 mg PO Q4H PRN PRN cap 10/08/19 [Rx Last Taken 09/26/20] insulin regular hum U-500 conc 85 units SQ DINNER 03/22/20 [History Last Taken 12/05/20] levocetirizine 5 mg PO QHS 03/22/20 [History Last Taken 12/05/20] montelukast 10 mg PO DAILY 03/22/20 [History Last Taken 12/05/20] nystatin 1 applic TOPICAL BID 03/22/20 [History Last Taken 2 Days Ago ~12/04/20] potassium chloride 10 meq PO DAILYCM 03/22/20 [History Last Taken 12/05/20] insulin regular hum U-500 conc 95 units SQ BREAKFAST 08/12/20 [History Last Taken 12/05/20] rosuvastatin 20 mg PO QHS 12/06/20 [History Last Taken 12/05/20] prednisone 20 mg PO DAILY #4 tab 04/29/21 [Rx Last Taken Unknown] Allergy/AdvReac Type Severity Reaction Status Date / Time adhesive tape Allergy tears skin Verified 06/18/21 17:14 cefadroxil [From [facility] [place]] Allergy Unknown Verified 06/18/21 17:14 gluten Allergy celiac Verified 06/18/21 17:14 disease mesalamine [From Asacol] Allergy Unknown Verified 06/18/21 17:14 omalizumab [From Xolair] Allergy Unknown Verified 06/18/21 17:14 Sulfa (Sulfonamide Allergy swelling Verified 06/18/21 17:14 Antibiotics) as an oxycodone AdvReac Vomiting Verified 06/18/21 17:14 Family History (Updated 06/18/21 @ 20:[address] Mindy Painter MD) Father Cancer Myocardial infarction Mother Cancer Metastatic breast CA Surgical History (Updated 06/18/21 @ 20:[address] Mindy Painter MD) H/O rectocele repair History of lymph node dissection of right axilla History of mastectomy History of partial hysterectomy Hx of bilateral cataract extraction Hx of carpal tunnel repair Social History (Updated 06/18/21 @ 20:[address] Mindy Painter MD) household members: spouse Smoking Status: Former smoker how long ago did patient quit smoking: Smoked x 2 years 1/2 ppd, quit ~ 50 years prior. alcohol intake: never substance use type: does not use ROS ROS Narrative Admission Review of Systems: CONSTITUTIONAL: No weight loss, fever, chills, + weakness or fatigue. HEENT: Eyes: No visual loss, blurred vision, double vision or yellow sclerae. Ears, Nose, Throat: No hearing loss, sneezing, congestion, runny nose or sore throat. SKIN: No rash or itching, lesions, wounds. CARDIOVASCULAR: No chest pain, chest pressure or chest discomfort, palpitations, edema, orthopnea, syncopal events. RESPIRATORY: + shortness of breath, cough without marked sputum, No marked wheezing, hemoptysis. GASTROINTESTINAL: + anorexia, No nausea, vomiting or diarrhea, abdominal pain, melena, BRBPR. GENITOURINARY: No dysuria, frequency, urgency or retention. NEUROLOGICAL: No headache, dizziness, syncope, paralysis, ataxia, numbness or tingling in the extremities, focal weakness, change in bowel or bladder control, seizure. MUSCULOSKELETAL: + muscle, back pain, joint pain or stiffness. HEMATOLOGIC: + anemia, bleeding or bruising. LYMPHATICS: No enlarged nodes. No history of splenectomy. PSYCHIATRIC: + history of depression or anxiety. ENDOCRINOLOGIC: No reports of sweating, cold or heat intolerance. No polyuria or polydipsia. ALLERGIES: + history of asthma, hives, eczema or rhinitis. Vital Signs Vital Signs Vital Signs: 06/18/21 17:14 06/18/21 17:19 06/18/21 19:29 Temperature 98.3 F Temperature Source Temporal Pulse Rate 109 H 111 H 103 H Respiratory Rate 21 H 24 H Respiratory Effort Normal Respiratory Depth Normal Respiratory Pattern Normal Blood Pressure 113/94 H 113/94 H 144/54 H Blood Pressure Mean 100 100 84 Pulse Ox 96 96 96 Oxygen Delivery Method Nasal Cannula Room Air Nasal Cannula Oxygen Flow Rate (L/min) 2 2 2 Weight Weight: 288 lb 12.889 oz Body Mass Index (BMI) 51.1 Physical Exam Narrative Physical Examination: General: Awake, alert, oriented x 3 and cooperative, laying in the ED bed, fatigued, ill appearing, no respiratory distress evident. Skin: Normal color, normal turgor, no icterus, no cyanosis. HEENT: AT/NC, EOMI, PERRLA, dry MM, no carotid bruits or JVD noted; however, thickened neck makes examination difficult. Lungs: Diminished, distant, > bases, R mildly course, decreased effort, no rales, ronchi or wheezing. Heart: Mildly tachycardic with regular rhythm; no gallop, rub audible. Abdomen: Soft, morbidly obese, NTTP, no obvious distention but habitus makes examination difficult, distant normal BS, unable to discern HSM secondary to habitus. Extremities: No cyanosis, clubbing, or edema. Neurological: Patient awake, alert, oriented as noted, cognitive function intact; pupils equally reactive to light and accommodation, cranial nerves II-XII grossly normal, moving all 4 extremities, no focal deficits, strength severely globally decreased secondary to acute presentation. Psychiatric: Affect appears fatigued, ill appearing, no acute evidence of depressive or anxiety feelings. Results Lab / Micro Data Result Diagrams: 06/18/21 17:50 06/18/21 18:15 Labs: Laboratory Results - last 24 hr 06/18/21 17:30: Lactic Acid 2.2 H* 06/18/21 17:50: WBC 21.9 H, RBC 3.62 L, Hgb 9.7 L, Hct 31.0 L, MCV 85.6, MCH 26.8 L, MCHC 31.3 L, RDW Std Deviation 51.8 H, RDW Coeff of Aniceto 16.3 H, Plt Count 307, MPV 9.5, Immature Gran % (Auto) 0.800, Neut % (Auto) 88.2 H, Lymph % (Auto) 4.7 L, [place] % (Auto) 5.7, Eos % (Auto) 0.3, Baso % (Auto) 0.3, Absolute Neuts (auto) 19.4 H, Absolute Lymphs (auto) 1.03, Nucleated RBC % 0 06/18/21 17:50: B-Natriuretic Peptide 47.0 06/18/21 18:15: Sodium 134 L, Potassium 3.8, Chloride 98, Carbon Dioxide 30.0, Anion Gap 6, BUN 17, Creatinine 0.84, Estim Creat Clear Calc 48.61, Est GFR (MDRD) Af Amer 85, Est GFR (MDRD) Non-Af 71, BUN/Creatinine Ratio 20.3 H, Glucose 185 H, Calcium 9.2, Troponin I High Sens 12 Micro: Microbiology 06/18/21 17:51 Nasal Secretion SARS-CoV-2 Antigen (Rapid) - Final ABG Data ABG results: ABG 06/18/21 18:22 Specimen Type ART Sample Site R Radial pH 7.57 H Bicarbonate Actual 27.6 H Total CO2 29 Base Excess 6 H O2 Saturation 95 ABG pCO2 30.0 L ABG pO2 61 L Vamsi Test Positive O2 Delivery Device Cannula Liter Flow 2.0 Radiology Impression Chest CTA 06/18/21 17:49 IMPRESSION: No demonstrated pulmonary embolism or arterial dissection. Consolidation, groundglass opacity and bronchiectasis throughout the right lung likely represents chronic changes with superimposed pneumonia. Malignancy is not excluded. Enlarged right mediastinal and hilar lymph nodes are nonspecific. Electronically Signed: Von Santana MD at 19:41 EST Tel , Service support , Assessment & Plan Assessment/Plan (1) Pneumonia: QUALIFIERS: Laterality: right Lung location: unspecified part of lung Pneumonia type: due to unspecified organism Qualified Code(s): J18.9 - Pneumonia, unspecified organism (2) Lactic acidosis: PLAN: The patient is a 75 y/o F w/ PMHx: Chronic hypoxic respiratory failure (2L NC), HTN, HLD, Anxiety and Depression/ADD, GERD, Celiac disease, Hx R sided breast CA, Hx NSC R lung CA, DORY on CPAP q HS, Morbid obesity, Asthma w/ allergic rhinitis who presents to the [facility] ED on 06/18/21 with worsening dyspnea above her baseline, fatigue and weakness with no recent fever or chills but not improving prompted ED evaluation. #1. R sided Pneumonia w/ Chronic Hypoxic Respiratory Failure w/ mild lactic acidosis with Questionable underlying Cancer w/ Hx Prior R sided Breast CA and R sided NSCL CA: Will admit to [facility], maintain on oxygen with wean as tolerated to home oxygen supplementation, continue ATC duonebs, PRN albuterol, maintain on IV Zosyn given history w/ prior cultures with pseudomonas growth most recently noted 05/09/2021 and de-escalate as able w/ MRSA screen requested, HOB, IS parameters w/ pending sputum cultures and urine antigens. No respiratory panels available. Bld cx x 2 obtained in the ED and pending. Given history and prior CTPA findings and no obvious bronchoscopy follow-up would benefit from re-involvement of Pulmonary medicine. #2. Lactic acidosis: Admission lactic acid 2.2, likely secondary to acute presentation with right-sided pneumonia acute infection coupled with hypoxia #1, will continue to treat as noted above and trend per facility protocol. #3. Chronic anemia, normocytic: Admission Hgb 9.7, baseline 8-9, stable, continue to trend. #4. Diabetes mellitus type II: Will continue home insulin regimen, ADA diet, accu checks w/ ISS. #5. Hypertension: Continue home regimen including nadolol, PRN hydralazine. #6. Hyperlipidemia: We will continue patient on statin therapy. #7. Chronic Asthma with chronic hypoxic respiratory failure with allergic rhinitis: Will maintain on oxygen with wean as tolerated to home oxygen supplementation, PRN albuterol, budesonide ATC, HOB, IS parameters. Continue montelukast. #8. Morbid Obesity: Weight loss and lifestyle changes encouraged, nutrition consulted. #9. Trigeminal neuralgia: We will continue patient home carbamazepine regimen. #10. Anxiety and depression: We will continue patient home paroxetine regimen. #11. Celiac disease: Will maintain gluten-free diet. #12. DORY: CPAP q HS. #13. RLS: Continue home pramipexole regimen. #14. DVT prophylaxis: SCDs, Lovenox. #15. CODE status: Patient DIPTI is her daughter Jessica Matute and living will is currently in place. Discussed CODE status at length including difference between FULL code, DNR-CCA and DNR-CC status. Following discussions about the differences in these status, requested Full Code status. Advanced Care Planning Face to Face Time: 16 minutes. Charges/Coding Visit Charges Inpatient E&M: 88557 Init Hosp L3 Procedures Hospitalists Procedures: 87127 Advncd Care Plan 30 Min
[2021-06-18] MEDS: 0.9% Normal Saline 1,000 ML 100 ML IV (22:00)
[2021-06-18 22:30] LABS: Bedside Glucose 215 mg/dL (70-110)
[2021-06-18 22:34] LABS: Reflex Lactate? Y
[2021-06-18 23:33] LABS: Lactic Acid 1.1 mmol/L (0.4-1.9)
[2021-06-18] MEDS: Enoxaparin 40 MG/0.4 ML Syringe SC (23:40)
[2021-06-18] MEDS: Pramipexole Di-HCl 0.5 MG Tablet PO (23:40)
[2021-06-18] MEDS: carBAMazepine 200 MG Tablet PO (23:41)
[2021-06-18] MEDS: Insulin Lispro 100 UNIT/ML INSULN.PEN SC (23:41)
[2021-06-18] MEDS: Loratadine 10 MG Tablet PO (23:41)
[2021-06-18] MEDS: Atorvastatin Calcium 40 MG Tablet PO (23:41)
--- NOTE | 2021-06-19 00:42 | PCS.PANDOC ---
PANDEMIC DOCUMENTATION INITIATED: Date: 01/20/2021 Time: 1900 INITIATED @ 1999
[2021-06-19] MEDS: Nystatin Ointment 1 APPLIC TOPICAL ×3 (03:22→22:12)
[2021-06-19 03:24] VITALS: BP 111/58; PULSE 94; RESP 18; TEMP 36.4; O2SAT 95
[2021-06-19 05:18] LABS: Mucous, Urine 0 SEEN /hpf (<or=2+); Red Blood Cells-Urine 0 SEEN /hpf (0-5); White Blood Cells 0 SEEN /hpf (0-5)
[2021-06-19 05:21] LABS: M R Staph aureus DNA By PCR Negative (Negative); Probe Check PASS; Specimen Processing Control PASS
[2021-06-19 05:33] LABS: Color, Urine Yellow (Yellow); Glucose, Dipstick 1000 mg/dl (Normal); Ketone-Dipstick Negative (Negative); Leukocyte Esterase-Dipstick Negative /ul (Negative); Nitrite-Dipstick Positive (Negative); Occult Blood-Urine Negative /ul (Negative); Protein-Dipstick 15 mg/dl (Negative); Urine Bilirubin Dipstick Negative (Negative); Urine Clarity Clear (Clear); Urine Urobilinogen Normal (Normal)
[2021-06-19 05:56] LABS: Bacteria 1+ /hpf (None Seen); Squamous Epithelial Cells - UA 0-5 SEEN /hpf (5-10)
[2021-06-19 06:00] LABS: Absolute Lymphocyte Count 0.41 X10^3/uL (0.83-4.51); Absolute Neutrophil Count 17.5 X10^3/uL (2.0-7.7); Basophil# 0.02 X10^3/uL; Basophil% 0.1 % (0-1); Differential Indicated SCAN CRITERIA MET; Hematocrit 30.8 % (37-47); Hemoglobin 9.6 g/dL (12.0-15.0); Lymphocyte # 0.41 X10^3/ul (0.83-4.51); Lymphocyte % 2.2 % (19-41); Mean Corp Hgb Conc 31.2 g/dL (32-36); Mean Corpuscular Hgb 26.7 pg (27.0-32.0); Mean Corpuscular Volume 85.8 fL (81-99); Mean Platelet Vol. 9.3 fl (6.2-12.0); Monocyte# 0.37 X10^3/uL; NRBC Flagged by Analyzer 0 % (0-5); Neutrophil # 17.54 X10^3/uL (2.7-7.7); POSITIVE DIFFERENTIAL YES; Platelet Count 251 K/mm3 (150-450); RBC Distribution Width CV 16.1 % (11.6-14.6); RBC Distribution Width SD 50.9 fl (35.1-43.9); Red Blood Count 3.59 M/mm3 (4.2-5.4); White Blood Count 18.5 K/mm3 (4.4-11.0)
[2021-06-19] MEDS: Insulin Lispro 100 UNIT/ML INSULN.PEN SC ×4 (06:22→22:15)
[2021-06-19 06:31] LABS: Bedside Glucose 322 mg/dL (70-110)
[2021-06-19 06:44] LABS: ALB/GLOB Ratio 0.5 RATIO (0.9-2.4); AST(SGOT) 15 U/L (15-37); Alanine Aminotransfer ALT/SGPT 32 U/L (13-56); Albumin, Serum 2.2 g/dL (3.2-5.0); Alkaline Phosphatase 159 U/L (45-117); Anion Gap 4 (5-15); BUN 20 mg/dL (7-18); BUN/Creat Ratio 24.3 RATIO (10-20); Calcium,Total 9.6 mg/dL (8.5-10.1); Chloride 101 mmol/L (98-107); Creatinine, Serum 0.82 mg/dL (0.55-1.02); EST Glomerular Filtration Rate 72 mL/min (>60); Est Glom Filt Rate - Afr Amer 87 mL/min (>60); Estimated Creatinine Clearance 47.61 ml/min; Globulin 4.7 g/dL (2.2-4.2); Glucose 377 mg/dL (74-106); Potassium 4.7 mmol/L (3.5-5.1); Protein, Total 6.9 g/dL (6.4-8.2); Sodium Level 134 mmol/L (136-145)
[2021-06-19 07:21] VITALS: PULSE 84; RESP 18; O2SAT 96
[2021-06-19] MEDS: Budesonide Respules 0.5 MG/2 ML AMPUL.NEB. INHALATION ×2 (07:21→19:05)
[2021-06-19 08:42] VITALS: BP 129/59; PULSE 95; RESP 18; TEMP 36.5; O2SAT 97
--- NOTE | 2021-06-19 10:55 | CASEMGMT ---
RN THAIS Face to Face with patient for initial transition planning/care coordination assessment. RN THAIS introduced self and role at [facility]. Patient lying in bed, alert and oriented. Patient willing to participate in assessment and is able to answer all questions appropriately. Care providers, pharmacy, and demographics verified. Patient wishes to discharge home, with resumption of services with [facility]. Patient states he has no further needs or concerns at this time. CM to follow for discharge planning needs that may arise. PCP: Misty Specialists: Janene, division roadmaster; Willa, oncologist [facility]erred [facility]acy: [facility] Insurance: [facility] Prescription Benefit: yes Living Will/HPOA: yes, daughter Santa Matute HPOA LNOK: , daughter Living Arrangements: Patient lives with in 2 story home with stair lift to second floor. Patient has 5 steps and railing to enter the home. Patient states she is independent for selfcare at home. Transportation: son, DIL DME/HHC: Patient states she has shower chair, BSC, raised toilet, grab bars, walker, rollator, nebulizer, home oxygen through [employer] 2[employer], stair lift. Patient has previously had [facility] in the past. Patient is setup with [facility]. Disposition Plan: Patient to discharge home with [facility] [employer] [facility], family support, and follow-up plans in place. Amparo MEJIA, RN, CM
[2021-06-19 11:10] LABS: Bedside Glucose 324 mg/dL (70-110)
[2021-06-19] MEDS: Montelukast 10 MG Tablet PO (14:25)
[2021-06-19] MEDS: Potassium Chloride Oral Tablet 10 MEQ PO (14:25)
[2021-06-19] MEDS: Nadolol 40 MG Tablet PO (14:25)
[2021-06-19] MEDS: Paroxetine 20 MG Tablet 40 MG PO (14:26)
[2021-06-19] MEDS: MethylPREDNISolone 125 MG/2 ML Vial 60 MG IV (14:27)
[2021-06-19 14:29] VITALS: BP 143/71; PULSE 93; RESP 17; TEMP 36.5; O2SAT 97
[2021-06-19 16:30] LABS: Bedside Glucose 309 mg/dL (70-110)
[2021-06-19] MEDS: Insulin U-500 UNITS/ML PEN 85 UNITS SC (17:41)
--- NOTE | 2021-06-19 18:17 | PCM.PN.HOSP ---
Subjective Subjective Patient was seen and examined today, she has a harsh bronchitic cough, she is not producing any sputum however. I talked with pulmonary medicine who is participating in her care-they feel a bronchoscopy should be performed, this will be scheduled for tomorrow I have elected to stop the patient's U5 100 insulin at this time unfortunately she did get a dose with dinner. I am concerned that she might bottom out from the insulin. Nursing has been advised to keep a close watch on her tonight. Objective Data Objective Data Vital Signs: Vital Signs Temp Pulse Resp BP Pulse Ox 97.7 F L 93 17 143/71 H 97 06/19/21 14:29 06/19/21 14:29 06/19/21 14:29 06/19/21 14:29 06/19/21 14:29 Oxygen Flow Rate (L/min) 3 Oxygen Delivery Method Nasal Cannula Weight: 130.9 kg Body Mass Index (BMI) 51.1 Intake & Output: Intake and Output for Last 24 Hours 06/17/21 06/18/21 06/19/21 23:59 23:59 23:59 Intake Total 1050 / 1250 1370 / 1370 Output Total 300 / 300 Balance 1050 / 1250 1070 / 1070 Lab / Micro Data Result Diagrams: 06/19/21 05:12 06/19/21 05:12 Labs: Laboratory Results - last 24 hr 06/18/21 17:30: Lactic Acid 2.2 H* 06/18/21 17:50: B-Natriuretic Peptide 47.0 06/18/21 18:15: Sodium 134 L, Potassium 3.8, Chloride 98, Carbon Dioxide 30.0, Anion Gap 6, BUN 17, Creatinine 0.84, Estim Creat Clear Calc 48.61, Est GFR (MDRD) Af Amer 85, Est GFR (MDRD) Non-Af 71, BUN/Creatinine Ratio 20.3 H, Glucose 185 H, Calcium 9.2, Troponin I High Sens 12 06/18/21 22:03: POC Glucose 215 H 06/18/21 22:46: Lactic Acid 1.1 06/18/21 22:50: MRSA (PCR) Negative 06/19/21 03:30: Urine Color Yellow, Urine Clarity Clear, Urine pH 6.0, Ur Specific [place] 1.010, Urine Protein 15 H, Urine Glucose (UA) 1000 H, Urine Ketones Negative, Urine Occult Blood Negative, Urine Nitrite Positive H, Urine Bilirubin Negative, Urine Urobilinogen Normal, Ur Leukocyte Esterase Negative, Urine RBC 0 SEEN, Urine WBC 0 SEEN, Ur Squamous Epith Cells 0-5 SEEN, Urine Bacteria 1+, Urine Mucus 0 SEEN 06/19/21 05:12: WBC 18.5 H, RBC 3.59 L, Hgb 9.6 L, Hct 30.8 L, MCV 85.8, MCH 26.7 L, MCHC 31.2 L, RDW Std Deviation 50.9 H, RDW Coeff of Aniceto 16.1 H, Plt Count 251, MPV 9.3, Immature Gran % (Auto) 0.700, Neut % (Auto) 95.0 H, Lymph % (Auto) 2.2 L, [place] % (Auto) 2.0, Eos % (Auto) 0.0, Baso % (Auto) 0.1, Absolute Neuts (auto) 17.5 H, Absolute Lymphs (auto) 0.41 L, Nucleated RBC % 0 06/19/21 05:12: Sodium 134 L, Potassium 4.7, Chloride 101, Carbon Dioxide 29.0, Anion Gap 4 L, BUN 20 H, Creatinine 0.82, Estim Creat Clear Calc 47.61, Est GFR (MDRD) Af Amer 87, Est GFR (MDRD) Non-Af 72, BUN/Creatinine Ratio 24.3 H, Glucose 377 H, Calcium 9.6, Total Bilirubin 0.40, AST 15, ALT 32, Alkaline Phosphatase 159 H, Total Protein 6.9, Albumin 2.2 L, Globulin 4.7 H, Albumin/Globulin Ratio 0.5 L 06/19/21 06:19: POC Glucose 322 H 06/19/21 11:06: POC Glucose 324 H 06/19/21 16:24: POC Glucose 309 H Micro: Microbiology 06/19/21 03:30 Sputum, Expectorated/Coughed Gram Stain - Final 06/19/21 03:30 Urine, Random Legionella Antigen - Final 06/19/21 03:30 Urine, Random Streptococcus pneumoniae Antigen (M - Final 06/18/21 17:51 Nasal Secretion SARS-CoV-2 Antigen (Rapid) - Final ABG Data ABG results: ABG 06/18/21 18:22 Specimen Type ART Sample Site R Radial pH 7.57 H Bicarbonate Actual 27.6 H Total CO2 29 Base Excess 6 H O2 Saturation 95 ABG pCO2 30.0 L ABG pO2 61 L Vamsi Test Positive O2 Delivery Device Cannula Liter Flow 2.0 Radiography Diagnostic Testing: Radiology Impression Chest CTA 06/18/21 17:49 IMPRESSION: No demonstrated pulmonary embolism or arterial dissection. Consolidation, groundglass opacity and bronchiectasis throughout the right lung likely represents chronic changes with superimposed pneumonia. Malignancy is not excluded. Enlarged right mediastinal and hilar lymph nodes are nonspecific. Electronically Signed: Von Santana MD at 19:41 EST Tel , Service support , Physical Exam Const alert, oriented x3, no apparent distress and healthy appearing General Appearance: cooperative, well kempt and well developed Orientation / Consciousness: awake, oriented to person, oriented to place and oriented to time Nutritional Appearance: morbidly obese HEENT normocephalic, head/scalp atraumatic and moist oral mucous membranes Head and Scalp: normocephalic Eyes PERRL, EOMs intact bilaterally and conjunctivae normal Neck nuchal rigidity, supple, no JVD, thyroid normal and no carotid bruits General: trachea midline Resp normal respiratory effort, no retractions and no use of accessory muscles Resp Narrative: Patient has expiratory rhonchi bilaterally Auscultation: Negative for rales, rhonchi or wheezes Cardio regular rate, regular rhythm, S1 normal heart sound, S2 normal heart sound, no murmurs, no rub and no gallops GI normal to inspection, nondistended, normoactive bowel sounds, soft to palpation, non-tender and non-distended Extremity no clubbing, cyanosis or edema Skin no rashes or lesions noted General Skin Exam: no breakdown Neuro oriented x3, CN's II-XII intact bilaterally, no focal motor deficits and no sensory deficits noted Sensorium / Orientation: awake and alert Speech: speech normal Psych thought process normal and affect normal Assessment & Plan Assessment/Plan (1) Pneumonia: QUALIFIERS: Pneumonia type: due to unspecified organism Laterality: right Lung location: unspecified part of lung Qualified Code(s): J18.9 - Pneumonia, unspecified organism PLAN: 1. Sepsis secondary to right community-acquired pneumonia-patient will be maintained on Zosyn at this time, pulmonary medicine is going to perform a bronchoscopy tomorrow and will do washings and cultures. #2 acute on chronic hypoxic respiratory failure-patient is currently on 3 L via nasal cannula, she requires 2 L at home., Pulse ox will be monitored #3 right-sided community-acquired pneumonia-continue present antibiotic coverage #4 type 2 diabetes-I have elected at this time to stop her U5 100 insulin and cover her with sliding scale due to her n.p.o. status after midnight. I will reevaluate her insulin usage tomorrow #5 hyperlipidemia-patient is currently on a statin #6 morbid obesity-complicates care, recovery, and prognosis.-Nutritional services will see patient #7 chronic depression/anxiety-patient is on Paxil #8 obstructive sleep apnea-patient uses CPAP at home this will be continued here #9 essential hypertension-patient to continue her present medication #10 chronic asthma-patient will receive aerosol treatments and oral corticosteroids, she has been seen by pulmonary medicine Charges/Coding Visit Charges Inpatient E&M: 87580 Subs Hosp L2
[2021-06-19 19:05] VITALS: PULSE 97; RESP 24
[2021-06-19 21:57] VITALS: BP 133/78; PULSE 77; RESP 17; TEMP 36.6; O2SAT 97
[2021-06-19 22:05] LABS: Bedside Glucose 365 mg/dL (70-110)
[2021-06-19] MEDS: Atorvastatin Calcium 40 MG Tablet PO (22:08)
[2021-06-19] MEDS: Pramipexole Di-HCl 0.5 MG Tablet PO (22:09)
[2021-06-19] MEDS: Loratadine 10 MG Tablet PO (22:09)
[2021-06-19] MEDS: carBAMazepine 200 MG Tablet PO (22:11)
[2021-06-19] MEDS: Iron Polysaccharide Complex 150 MG CAPSULE PO (22:15)
[2021-06-19] MEDS: Pantoprazole Sodium 40 MG Tablet PO (22:15)
[2021-06-20] VITALS (14 sets, daily range): BP systolic 102–153; BP diastolic 52–86; PULSE 72–92; RESP 12–28; TEMP 36.2–37.2; O2SAT 92–98; BMI 50.2
--- NOTE | 2021-06-20 | FLU_PTH ---
PATIENT: ALESSANDRO DOTSON LOC: MS2 U#:[id number] AGE/SX: 75/F ROOM: [facility] RE06/18/[address]: Dr. Isreal Childress MD : 1945 BED: 1 DIS: 06/27/2021 SPEC #: [id number] RECD: 06/20/21 14:48 STATUS: TANO REBernardo #: [id number] HELEN: 06/20/21 00:[address]: Dre Watters V DEPT: CYTOLOGY RECD BY: Cara Brian ENTERED: 06/23/21 08:31 SP TYPE: Fluid OTHR DR: MD Dr. Senait Saldana MD Dr. Nicholas F Kotsonis, MD Dr. Robert V Sibilia, MD Tissues: A - Bronchus of right upper lobe B - Bronchus of right upper lobe C - Bronchus of right upper lobe Procedures: Special Stain Group II Special Stain Group I Surgery Specimen Level IV AFB Stain (control) GMS Stain (control) Cytospin Fluid Cytology Other Comments: @ Ordering doctor for SSII edited from to @ by ISAIAS at 06/23/21 1443 @ Ordering doctor for SUIV edited from to @ by ISAIAS at 06/23/21 1443 @ Ordering doctor for CYSPIN edited from to @ by ISAIAS at 06/23/21 1443 @ Ordering doctor for CYOTHER edited from to @ by ISAIAS at 06/23/21 1443 @ Submitting doctor edited from to @ by ISAIAS at 06/23/21 1443 HEADER OPERATION: Bronchoscopy, transbronchial biopsy, BAL PRE-OP DIAGNOSIS: PAZ pneumonia, non-small cell CA TISSUE SUBMITTED: A ? [place] smears, B ? [place], C - [place] DIAGNOSIS CYTOLOGY A. Left upper lobe of lung (brush smears): Negative for malignant cells. B. [place] tip (cell block): Crush epithelial cells and acute inflammatory cells. Negative for acid-fast bacilli and fungal organisms. See comment. C. Left upper lobe of lung, brushings (cytospin and cell block): Negative for malignant cells. Abundant acute and chronic inflammatory cells. Negative for acid-fast bacilli and fungal organisms. See comment. AM:dania 06/24/2021 COMMENT B & C. AFB and GMS stains with matched controls were used in the evaluation of this case. See corresponding surgical case ([id number]). Case has been reviewed in consultation with Dr. Dong who concurs with the above diagnosis. IDC:SJ CYTOLOGY STUDY Slides are reviewed. CYTOLOGY GROSS A - Received are three smears labeled with the patient's name and designated per the requisition as RUL. Submitted for staining. B - Received is a metallic endoscopic cytobrush with adherent minute fragments of savage-red tissue brush in 2 ml of clear red fluid and labeled with the patient's name and and designated per the requisition as brush. The material is dislodged from the brush and submitted for cytology preparation including cell block. C - Received is 30 ml of red mucoidy cloudy fluid labeled with the patient's name and and designated per the requisition as RUL BAL. Submitted for cytology preparation including cell block. / dania 06/23/2021 TC:2 CPT: 29403 x2, 36488, 57000, 30243 x4
--- NOTE | 2021-06-20 | LUNG_PTH ---
PATIENT: ALESSANDRO DOTSON LOC: MS2 U#:[id number] AGE/SX: 75/F ROOM: MS214 RE06/18/[address]: Dr. Isreal Childress MD : 1945 BED: 1 DIS: 06/27/2021 SPEC #: [id number] RECD: 06/20/21 14:48 STATUS: TANO PANDEY #: [id number] HELEN: 06/20/21 00:[address]: Dre Watters V DEPT: SURGICAL PATHOLOGY RECD BY: Cara Brian ENTERED: 06/23/21 08:32 SP TYPE: LUNG BX OTHR DR: MD Dr. Senait Saldana MD Dr. Nicholas F Kotsonis, MD Dr. Robert V Sibilia, MD Tissues: Lung, NOS Procedures: Elastin Stain (control) Trichrome (control) Special Stain Group II Special Stain Group I Surgery Specimen Level IV AFB Stain (control) GMS Stain (control) Retic (control) Iron Stain (control) Comments: @ Ordering doctor for IV edited from to @ by ISAIAS at 06/23/21 1443 @ Submitting doctor edited from to @ by ISAIAS at 06/23/21 1443 HEADER OPERATION: RUL biopsy PRE-OP DIAGNOSIS: PAZ pneumonia, non-small cell CA TISSUE SUBMITTED: RUL biopsy MICROSCOPIC DIAGNOSIS Left upper lobe of lung, biopsy: Consistent with acute pneumonitis Mild interstitial fibrosis. No evidence of malignancy. See comment. AM:dania 06/24/2021 COMMENT Trichrome and reticulin stain fibers are increased in the pulmonary parenchyma supporting interstitial fibrosis. Iron stain does not reveal remote hemorrhage. Elastin stain does no show any evidence of vasculitis. AFB and GMS stains are negative for acid fast bacilli and fungal organisms, respectively. All matched controls are appropriate. Clinical correlation is suggested. Please correlate with corresponding cytology ([id number]). Case has been reviewed in consultation with Dr. Dong who concurs with the above diagnosis. IDC:SJ MICROSCOPIC DESCRIPTION Slides are reviewed. GROSS DESCRIPTION Received in fixative is one container labeled with the patient's name and designated biopsy of RU. The specimen consists of multiple irregular fragments of savage, congested soft tissue that in aggregate measure 1.5 x 0.4 x 0.1 cm. The specimen is totally submitted in one cassette. / YOLANDA:dania 06/23/2021 TC:2 CPT: 83513, 09936 x2, 14369 x4
[2021-06-20 06:30] LABS: Bedside Glucose 272 mg/dL (70-110)
[2021-06-20] MEDS: Insulin Lispro 100 UNIT/ML INSULN.PEN SC ×2 (06:30→21:41)
[2021-06-20] MEDS: Budesonide Respules 0.5 MG/2 ML AMPUL.NEB. INHALATION ×2 (07:10→21:51)
--- NOTE | 2021-06-20 07:54 | PN.HOSP_ITS ---
Subjective Subjective Patient was seen and examined today, she is due to undergo bronchoscopy today. Patient is on nasal cannula oxygen at 2-1/2 L, she still continues to complain of a dry cough, she remains afebrile. Objective Data Objective Data Vital Signs: Vital Signs Temp Pulse Resp BP Pulse Ox 97.6 F L 84 18 141/78 H 95 06/20/21 03:36 06/20/21 07:11 06/20/21 07:11 06/20/21 03:36 06/20/21 07:11 Oxygen Flow Rate (L/min) 2.5 Oxygen Delivery Method Nasal Cannula Weight: 128.565 kg Body Mass Index (BMI) 51.1 Intake & Output: Intake and Output for Last 24 Hours 06/18/21 06/19/21 06/20/21 23:59 23:59 23:59 Intake Total 1050 / 1250 1820 / 1820 300 / 300 Output Total 300 / 300 700 / 700 Balance 1050 / 1250 1520 / 1520 -400 / -400 Lab / Micro Data Result Diagrams: 06/19/21 05:12 06/19/21 05:12 Labs: Laboratory Results - last 24 hr 06/19/21 11:06: POC Glucose 324 H 06/19/21 16:24: POC Glucose 309 H 06/19/21 21:54: POC Glucose 365 H 06/20/21 06:26: POC Glucose 272 H Micro: Microbiology 06/19/21 03:30 Sputum, Expectorated/Coughed Gram Stain - Final 06/19/21 03:30 Urine, Random Legionella Antigen - Final 06/19/21 03:30 Urine, Random Streptococcus pneumoniae Antigen (M - Final 06/18/21 17:51 Nasal Secretion SARS-CoV-2 Antigen (Rapid) - Final Physical Exam Narrative alert, oriented x3, no apparent distress and healthy appearing General Appearance: cooperative, well kempt and well developed Orientation / Consciousness: awake, oriented to person, oriented to place and oriented to time Nutritional Appearance: morbidly obese HEENT normocephalic, head/scalp atraumatic and moist oral mucous membranes Head and Scalp: normocephalic Eyes PERRL, EOMs intact bilaterally and conjunctivae normal Neck nuchal rigidity, supple, no JVD, thyroid normal and no carotid bruits General: trachea midline Resp normal respiratory effort, no retractions and no use of accessory muscles Resp Narrative: Patient has expiratory rhonchi bilaterally Auscultation: Negative for rales, rhonchi or wheezes Cardio regular rate, regular rhythm, S1 normal heart sound, S2 normal heart sound, no murmurs, no rub and no gallops GI normal to inspection, nondistended, normoactive bowel sounds, soft to palpation, non-tender and non-distended Extremity no clubbing, cyanosis or edema Skin no rashes or lesions noted General Skin Exam: no breakdown Neuro oriented x3, CN's II-XII intact bilaterally, no focal motor deficits and no sensory deficits noted Sensorium / Orientation: awake and alert Speech: speech normal Psych thought process normal and affect normal Assessment & Plan Assessment/Plan (1) Pneumonia: QUALIFIERS: Pneumonia type: due to unspecified organism Lateralit y: right Lung location: unspecified part of lung Qualified Code(s): J18.9 - Pneumonia, unspecified organism PLAN: 1. Sepsis secondary to right community-acquired pneumonia-patient will be maintained on Zosyn at this time, pulmonary medicine is going to perform a bronchoscopy today and will do washings and cultures. #2 acute on chronic hypoxic respiratory failure-patient is currently on 2.5 L via nasal cannula, she requires 2 L at home., Pulse ox will be monitored #3 right-sided community-acquired pneumonia-continue present antibiotic coverage #4 type 2 diabetes-I have elected at this time to stop her U5 100 insulin and cover her with sliding scale due to her n.p.o. status after midnight. I will reevaluate her insulin usage today. #5 hyperlipidemia-patient is currently on a statin #6 morbid obesity-complicates care, recovery, and prognosis.-Nutritional services will see patient #7 chronic depression/anxiety-patient is on Paxil #8 obstructive sleep apnea-patient uses CPAP at home this will be continued here #9 essential hypertension-patient to continue her present medication #10 chronic asthma-patient will receive aerosol treatments and oral corticosteroids, she has been seen by pulmonary medicine Charges/Coding Visit Charges Inpatient E&M: 43697 Subs Hosp L2
[2021-06-20 11:45] LABS: Bedside Glucose 125 mg/dL (70-110)
[2021-06-20] MEDS: Phenylephrine 0.25% 15 ML NASAL.SRY 15 SPRAY NASAL (12:46)
--- NOTE | 2021-06-20 14:18 | OP.BRONCH_ITS ---
Patient Name: Daily Garcia Procedure Date: 06/20/2021 1:22 PM Date of : 1945 Age: 75 Procedure: Bronchoscopy Indications: Diagnostic bronchoalveolar lavage, Right upper lobe pneumonia, Interstitial lung disease, Hx of recent chemo and rad for non small cell w/ 2 cm lesion in rul Providers: Dre Watters MD Medicines: Lidocaine applied to nares and subglottic space Complications: No immediate complications Procedure: Pre-Anesthesia Assessment: - A History and Physical has been performed. The patient's medications, allergies and sensitivities have been reviewed. - The risks and benefits of the procedure and the sedation options and risks were discussed with the patient. All questions were answered and informed consent was obtained. - Pre-procedure physical examination revealed no contraindications to sedation. - Using IV propofol under the supervision of a CORE ANALYST was determined to be medically necessary for this procedure based on review of the patient's medical history, medications, and prior anesthesia history. After I obtained informed consent, the scope was passed under direct vision. Throughout the procedure, the patient's blood pressure, pulse, and oxygen saturations were monitored continuously. The bronchoscope was introduced through the left nostril and advanced to the tracheobronchial tree. The patient tolerated the procedure well. The total duration of the procedure was 29 minutes. Moderate Sedation: Moderate (conscious) sedation was personally administered by an anesthesia professional. The following parameters were monitored: oxygen saturation, heart rate, blood pressure, respiratory rate, EKG, adequacy of pulmonary ventilation, and response to care. Findings: The nasopharynx/oropharynx appears normal. The larynx appears normal. The vocal cords appear normal. The subglottic space is normal. The trachea is of normal caliber. The [place] is sharp. The tracheobronchial tree of the left lung was examined to at least the first subsegmental level. Bronchial mucosa and anatomy in the left lung are normal; there are no endobronchial lesions, and no secretions. Respiratory tract: The larynx is normal. The vocal cords appear normal. The subglottic space is normal. The trachea is of normal caliber. The [place] is sharp. The entire tracheobronchial tree was examined to at least the first subsegmental level. Bronchial mucosa and anatomy are normal; there are no endobronchial lesions and no secretions, except in the right upper lobe. Brushings of a NARROW RUL SEGMENTS,SOME EDEMA were obtained [CYTO BRUSH] [Device] [Analysis]. [ONE]. Bronchoalveolar lavage was performed in the RUL apical segment (B1) of the lung and sent for cell count, bacterial culture, viral smears & culture, and fungal & AFB analysis and cytology. 100 mL of fluid were instilled. 60 mL were returned. The return was blood-tinged and cellular. There were no mucoid plugs in the return fluid. Transbronchial biopsies of an area of infiltration were performed in the apical segment of the right upper lobe using forceps and sent for cell count, bacterial culture, viral smears & culture, and fungal & AFB analysis, cell count, bacterial culture, viral smears & culture, and fungal & AFB analysis and cytology and routine cytology. The procedure was guided by fluoroscopy. Transbronchial biopsy technique was selected because the sampling site was not visible endoscopically. Five biopsy passes were performed. Five biopsy samples were obtained. Impression: - Bronchoalveolar lavage - Right upper lobe pneumonia - Interstitial lung disease - Atelectasis of the right upper lobe - The airway examination of the left lung was normal. - Brushings were obtained. - Bronchoalveolar lavage was performed. - Transbronchial lung biopsies were performed. Recommendation: - Await BAL, biopsy and brushing results. Procedure Code(s): --- Professional --- 14330, Bronchoscopy, rigid or flexible, including fluoroscopic guidance, when performed; with transbronchial lung biopsy(s), single lobe 28512, Bronchoscopy, rigid or flexible, including fluoroscopic guidance, when performed; with bronchial alveolar lavage Diagnosis Code(s): --- Professional --- J18.9, Pneumonia, unspecified organism J84.9, Interstitial pulmonary disease, unspecified CPT copyright 2017 [employer]. All rights reserved. The codes documented in this report are preliminary and upon library circulation assistant review may be revised to meet current compliance requirements. MD Dre Courtney MD 06/20/2021 2:17:37 PM This report has been signed electronically. Number of Addenda: 0 Note Initiated On: 06/20/2021 1:22 PM
--- NOTE | 2021-06-20 14:23 | RAD_ITS ---
STUDY: X-RAY CHEST REASON FOR EXAM: Female, 75 years old. POST OP TECHNIQUE: Single AP portable view of the chest. COMPARISON: Comparison is made with prior radiograph dated 04/25/2021. FINDINGS: Surgical clips are seen in the right axillary region. EKG electrodes are seen. There is opacification of the right upper lobe with mild loss. A right hilar mass with postobstructive pneumonitis should be ruled out. There is no demonstrated pleural abnormality. Normal size heart. Normal mediastinum and tanna. Normal visualized pulmonary arteries. There is atherosclerotic calcification of the aortic arch with tortuosity. There are diffuse degenerative changes of the visualized thoracic spine. Right calcific tendinitis. There is no demonstrated abnormality of the visualized soft tissue structures of the upper abdomen. RAD/Chest 1 View (Portable) IMPRESSION: Moderate loss in the right upper lobe with opacification. Right hilar mass with postobstructive pneumonitis should be ruled out. Electronically Signed: Salazar Garcia MD at 14:55 EST , Service support ,
[2021-06-20] MEDS: Lidocaine 2% Jelly 1 APPLIC Tube (14:27)
[2021-06-20] MEDS: Lidocaine 2% (5ml sdv) 5 ML VIAL.MPF (14:28)
--- NOTE | 2021-06-20 14:29 | CASEMGMT ---
Addendum entered by Amparo Perez 06/20/21 15:09: JASWINDER PLASCENCIA discussed discharge needs with patient. Confirmed Aides with [facility]. Patient declined need for senior living and therapy at discharge. Patient to discharge home with resumption of [employer]. Original Note: JASWINDER PLASCENCIA called and confirmed that patient is active with [facility] for aide services. Patient has aides MWF 1:30-5:30. [facility] is requesting call and discharge paperwork be faxed when patient discharged. Green sheet on chart. THAIS will continue to follow this patient and plan for a safe discharge.
[2021-06-20 14:54] LABS: Cytology, Body Fluid / CSF SEE PATHOLOGY REPORT
[2021-06-20 14:56] LABS: Cytology, Body Fluid / CSF SEE PATHOLOGY REPORT
[2021-06-20] MEDS: Potassium Chloride Oral Tablet 10 MEQ PO (15:10)
[2021-06-20] MEDS: Iron Polysaccharide Complex 150 MG CAPSULE PO ×2 (15:10→21:44)
[2021-06-20] MEDS: Pantoprazole Sodium 40 MG Tablet PO ×2 (15:11→21:44)
[2021-06-20] MEDS: predniSONE 10 MG Tablet 30 MG PO (15:11)
[2021-06-20] MEDS: Nystatin Ointment 1 APPLIC TOPICAL ×2 (15:11→23:47)
[2021-06-20] MEDS: Nadolol 40 MG Tablet PO (15:12)
[2021-06-20] MEDS: Montelukast 10 MG Tablet PO (15:12)
[2021-06-20] MEDS: Paroxetine 20 MG Tablet 40 MG PO (15:12)
[2021-06-20 15:36] LABS: Bedside Glucose 117 mg/dL (70-110)
[2021-06-20 16:41] LABS: Lymphocytes 7 %; Macrophages 2 %; Neutrophil (Segs) 91 %
[2021-06-20 16:58] LABS: Appearance/Body Fluid CLOUDY; Color/Body Fluid RED; Source- Body Fluid BRONCHIAL LAVAGE
[2021-06-20 16:59] LABS: Red Cell Count/Body Fluid 2071 /mm3; White Blood Count/Body Fluid 257 /mm3
[2021-06-20 17:03] LABS: Body Fluid QC Type(s) BF1Q
[2021-06-20] MEDS: Piperacil/Tazobactam 3.375 GM/50 ML ML IV (21:25)
[2021-06-20] MEDS: Atorvastatin Calcium 40 MG Tablet PO (21:44)
[2021-06-20] MEDS: Pramipexole Di-HCl 0.5 MG Tablet PO (21:44)
[2021-06-20] MEDS: Loratadine 10 MG Tablet PO (21:44)
[2021-06-20] MEDS: carBAMazepine 200 MG Tablet PO (21:44)
[2021-06-20 22:01] LABS: Bedside Glucose 259 mg/dL (70-110)
--- NOTE | 2021-06-20 22:06 | RAD_ITS ---
STUDY: X-RAY CHEST REASON FOR EXAM: Female, 75 years old. Dyspnea, hypoxia TECHNIQUE: Single AP portable view of the chest. COMPARISON: 06/20/2021, CT chest 06/18/2021. FINDINGS: Right upper lobe consolidation, unchanged compared to the prior study. The lungs are otherwise clear. Normal size heart. Normal mediastinum and tanna. Normal visualized pulmonary arteries. Normal visualized aortic arch and descending thoracic aorta. Normal visualized thoracic spine. Normal visualized ribs, clavicles, and shoulders. There is no demonstrated abnormality of the visualized soft tissue structures of the upper abdomen. RAD/Chest 1 View (Portable) IMPRESSION: No interval change in right upper lobe consolidation. Electronically Signed: Krystyna Vaca MD at 22:56 EST Tel , Service support ,
[2021-06-21] VITALS (11 sets, daily range): BP systolic 104–119; BP diastolic 42–62; PULSE 72–98; RESP 12–28; TEMP 36.4–37.5; O2SAT 92–98
[2021-06-21 04:57] LABS: Absolute Lymphocyte Count 0.84 X10^3/uL (0.83-4.51); Absolute Neutrophil Count 18.1 X10^3/uL (2.0-7.7); Basophil# 0.03 X10^3/uL; Basophil% 0.1 % (0-1); Eosinophil# 0.03 X10^3/uL; Eosinophils% 0.1 % (0-5); Hematocrit 29.6 % (37-47); Hemoglobin 9.3 g/dL (12.0-15.0); Lymphocyte # 0.84 X10^3/ul (0.83-4.51); Lymphocyte % 4.1 % (19-41); Mean Corp Hgb Conc 31.4 g/dL (32-36); Mean Corpuscular Hgb 26.9 pg (27.0-32.0); Mean Corpuscular Volume 85.5 fL (81-99); Mean Platelet Vol. 9.5 fl (6.2-12.0); Monocyte% 6.8 % (0-10); NRBC Flagged by Analyzer 0 % (0-5); Neutrophil # 18.05 X10^3/uL (2.7-7.7); Neutrophil % 87.8 % (47-70); Platelet Count 277 K/mm3 (150-450); RBC Distribution Width CV 16.5 % (11.6-14.6); RBC Distribution Width SD 51.4 fl (35.1-43.9); Red Blood Count 3.46 M/mm3 (4.2-5.4); White Blood Count 20.6 K/mm3 (4.4-11.0)
[2021-06-21] MEDS: Piperacil/Tazobactam 3.375 GM/50 ML ML IV ×3 (06:06→21:51)
[2021-06-21] MEDS: Insulin Lispro 100 UNIT/ML INSULN.PEN SC ×4 (06:07→21:52)
[2021-06-21 06:10] LABS: Bedside Glucose 201 mg/dL (70-110)
[2021-06-21] MEDS: Budesonide Respules 0.5 MG/2 ML AMPUL.NEB. INHALATION ×2 (06:47→18:31)
--- NOTE | 2021-06-21 07:19 | PN.HOSP_ITS ---
Subjective Subjective Patient was seen and examined today, her white count is 20.6. She had bronchoscopy yesterday which revealed an area of pneumonia in the right upper lobe. Patient is currently on BiPAP at the time of my examination-she wears this at bedtime. She does not appear to be in any distress, she does not complain of any shortness of breath Objective Data Objective Data Vital Signs: Vital Signs Temp Pulse Resp BP Pulse Ox 97.8 F 98 22 H 115/42 L 94 06/21/21 03:30 06/21/21 06:49 06/21/21 06:49 06/21/21 03:30 06/21/21 06:49 Oxygen Flow Rate (L/min) 6 Oxygen Delivery Method Nasal Cannula Weight: 130 kg Body Mass Index (BMI) 50.2 Intake & Output: Intake and Output for Last 24 Hours 06/19/21 06/20/21 06/21/21 23:59 23:59 23:59 Intake Total 1820 / 1820 800 / 800 350 / 350 Output Total 300 / 300 700 / 700 200 / 200 Balance 1520 / 1520 100 / 100 150 / 150 Lab / Micro Data Result Diagrams: 06/21/21 04:27 06/19/21 05:12 Labs: Laboratory Results - last 24 hr 06/20/21 11:39: POC Glucose 125 H 06/20/21 14:52: Fluid Source Cancelled, Fluid Color Cancelled, Fluid Appearance Cancelled, Fluid WBC Cancelled, Fluid RBC Cancelled, Fluid Tot Cell Count Ca ncelled, Fld Polynuclear WBCs # Cancelled, Fld Polynuclear WBCs % Cancelled, Fluid Mononuclear WBCs Cancelled, Fld Mononuclear WBCs % Cancelled, Fluid Neutrophils Cancelled, Fluid Lymphocytes Cancelled, Fluid Monocytes Cancelled, Fluid Plasma Cells Cancelled, Fluid Macrophages Cancelled, Fld Mesothelial Cells Cancelled, Fluid Other Cells Cancelled, Fl Pathologist Comment Cancelled, Fluid Comment 2 Cancelled 06/20/21 14:54: Fluid Source BRONCHIAL LAVAGE, Fluid Color RED, Fluid Appearance CLOUDY, Fluid WBC 257, Fluid RBC 2071, Fluid Tot Cell Count TNP, Fluid Neutrophils 91, Fluid Lymphocytes 7, Fluid Macrophages 2, Fl Pathologist Comment May follow, Fluid Comment 2 Not Reportable 06/20/21 15:31: POC Glucose 117 H 06/20/21 21:37: POC Glucose 259 H 06/21/21 04:27: WBC 20.6 H, RBC 3.46 L, Hgb 9.3 L, Hct 29.6 L, MCV 85.5, MCH 26.9 L, MCHC 31.4 L, RDW Std Deviation 51.4 H, RDW Coeff of Aniceto 16.5 H, Plt Count 277, MPV 9.5, Immature Gran % (Auto) 1.100 H, Neut % (Auto) 87.8 H, Lymph % (Auto) 4.1 L, [place] % (Auto) 6.8, Eos % (Auto) 0.1, Baso % (Auto) 0.1, Absolute Neuts (auto) 18.1 H, Absolute Lymphs (auto) 0.84, Nucleated RBC % 0 06/21/21 06:00: POC Glucose 201 H Micro: Microbiology 06/20/21 14:54 Bronchial Lavage - Left Upper Lobe Gram Stain - Preliminary 06/20/21 14:52 [place] Gram Stain - Preliminary 06/19/21 03:30 Sputum, Expectorated/Coughed Gram Stain - Final 06/19/21 03:30 Sputum, Expectorated/Coughed Respiratory Culture - Preliminary Gram negative analisa 06/19/21 03:30 Urine, Random Legionella Antigen - Final 06/19/21 03:30 Urine, Random Streptococcus pneumoniae Antigen (M - Final 06/18/21 17:51 Nasal Secretion SARS-CoV-2 Antigen (Rapid) - Final Radiography Diagnostic Testing: Radiology Impression Chest X-Ray 06/20/21 14:23 IMPRESSION: Moderate loss in the right upper lobe with opacification. Right hilar mass with postobstructive pneumonitis should be ruled out. Electronically Signed: Salazar Garcia MD at 14:55 EST , Service support , Chest X-Ray 06/20/21 22:06 IMPRESSION: No interval change in right upper lobe consolidation. Electronically Signed: Krystyna Vaca MD at 22:56 EST Tel , Service support , Physical Exam Const alert, oriented x3, no apparent distress and healthy appearing General Appearance: cooperative, well kempt and well developed Orientation / Consciousness: awake, oriented to person, oriented to place and oriented to time Nutritional Appearance: morbidly obese HEENT normocephalic, head/scalp atraumatic and moist oral mucous membranes Head and Scalp: normocephalic Eyes PERRL, EOMs intact bilaterally and conjunctivae normal Neck nuchal rigidity, supple, no JVD, thyroid normal and no carotid bruits General: trachea midline Resp normal respiratory effort and clear to auscultation bilaterally Resp Narrative: Patient continues to have a bronchitic cough Auscultation: Negative for rales, rhonchi or wheezes Cardio regular rate, regular rhythm, S1 normal heart sound, S2 normal heart sound, no murmurs, no rub and no gallops GI normal to inspection, nondistended, normoactive bowel sounds, soft to palpation, non-tender and non-distended Extremity normal to inspection and no clubbing, cyanosis or edema Skin no rashes or lesions noted General Skin Exam: no breakdown Neuro oriented x3, CN's II-XII intact bilaterally, no focal motor deficits and no sensory deficits noted Sensorium / Orientation: awake and alert Speech: speech normal Psych thought process normal and affect normal Assessment & Plan Assessment/Plan (1) Pneumonia: QUALIFIERS: Pneumonia type: due to unspecified organism Laterality: right Lung location: unspecified part of lung Qualified Code(s): J18.9 - Pneumonia, unspecified organism PLAN: 1. right-sided community-acquired pneumonia-continue present a ntibiotic coverage #2 acute on chronic hypoxic respiratory failure-patient is currently on 2 L via nasal cannula, she requires 2 L at home., Pulse ox will be monitored #3 type 2 diabetes-I have elected at this time to stop her U5 100 insulin and cover her with sliding scale due to her n.p.o. status after midnight. I will reevaluate her insulin usage today. #4 hyperlipidemia-patient is currently on a statin #5 morbid obesity-complicates care, recovery, and prognosis.-Nutritional services will see patient #6 chronic depression/anxiety-patient is on Paxil #7 obstructive sleep apnea-patient uses CPAP at home this will be continued here #8 essential hypertension-patient to continue her present medication #9 chronic asthma-patient will receive aerosol treatments and oral corticosteroi ds, she has been seen by pulmonary medicine #10 leukocytosis-probably secondary to corticosteroid usage Sepsis was ruled out Charges/Coding Visit Charges Inpatient E&M: 41657 Subs Hosp L2
[2021-06-21] MEDS: Pantoprazole Sodium 40 MG Tablet PO ×2 (08:28→21:51)
[2021-06-21] MEDS: Iron Polysaccharide Complex 150 MG CAPSULE PO ×2 (08:28→21:51)
[2021-06-21] MEDS: Potassium Chloride Oral Tablet 10 MEQ PO (08:28)
[2021-06-21] MEDS: predniSONE 10 MG Tablet 30 MG PO (08:29)
[2021-06-21] MEDS: Montelukast 10 MG Tablet PO (08:29)
[2021-06-21] MEDS: Nadolol 40 MG Tablet PO (08:29)
[2021-06-21] MEDS: Paroxetine 20 MG Tablet 40 MG PO (08:30)
[2021-06-21] MEDS: Nystatin Ointment 1 APPLIC TOPICAL ×2 (08:30→21:51)
[2021-06-21 11:30] LABS: Bedside Glucose 278 mg/dL (70-110)
--- NOTE | 2021-06-21 12:07 | CPS ---
v60 was switched out with another unit after the unit she was on shut off and would not turn back on.
--- NOTE | 2021-06-21 12:10 | NURSING ---
MESSAGE LEFT W/DIETARY TO PLEASE SEND EXTRA GRAVY/SAUCES ON THE SIDE WITH MEALS.
[2021-06-21 16:26] LABS: Bedside Glucose 304 mg/dL (70-110)
[2021-06-21] MEDS: Albuterol 2.5 MG/3 ML VIAL.NEB. INHALATION (18:39)
[2021-06-21] MEDS: Atorvastatin Calcium 40 MG Tablet PO (21:51)
[2021-06-21] MEDS: carBAMazepine 200 MG Tablet PO (21:51)
[2021-06-21] MEDS: Pramipexole Di-HCl 0.5 MG Tablet PO (21:51)
[2021-06-21] MEDS: Loratadine 10 MG Tablet PO (21:51)
[2021-06-21 22:00] LABS: Bedside Glucose 289 mg/dL (70-110)
[2021-06-22] VITALS (8 sets, daily range): BP systolic 108–153; BP diastolic 55–76; PULSE 68–83; RESP 12–25; TEMP 36.5–37.1; O2SAT 94–98
[2021-06-22] MEDS: Piperacil/Tazobactam 3.375 GM/50 ML ML IV ×3 (05:45→21:45)
[2021-06-22] MEDS: Insulin Lispro 100 UNIT/ML INSULN.PEN SC ×4 (06:33→21:44)
[2021-06-22 06:50] LABS: Bedside Glucose 214 mg/dL (70-110)
[2021-06-22] MEDS: Budesonide Respules 0.5 MG/2 ML AMPUL.NEB. INHALATION ×2 (08:33→19:26)
[2021-06-22] MEDS: predniSONE 10 MG Tablet 30 MG PO (08:45)
[2021-06-22] MEDS: Potassium Chloride Oral Tablet 10 MEQ PO (08:45)
[2021-06-22] MEDS: Iron Polysaccharide Complex 150 MG CAPSULE PO ×2 (08:45→21:44)
[2021-06-22] MEDS: Pantoprazole Sodium 40 MG Tablet PO ×2 (08:46→21:44)
[2021-06-22] MEDS: Paroxetine 20 MG Tablet 40 MG PO (08:46)
[2021-06-22] MEDS: Nystatin Ointment 1 APPLIC TOPICAL ×2 (08:46→21:46)
[2021-06-22] MEDS: Nadolol 40 MG Tablet PO (08:47)
[2021-06-22] MEDS: Montelukast 10 MG Tablet PO (08:48)
--- NOTE | 2021-06-22 10:52 | PN.HOSP_ITS ---
Subjective Subjective Patient was seen and examined today, she is requiring 6 L via nasal cannula at rest to maintain her pulse ox. Her bronchial washings grew out Pseudomonas, she is currently on Zosyn. Patient denies any fever or chills Objective Data Objective Data Vital Signs: Vital Signs Temp Pulse Resp BP Pulse Ox 98.8 F 83 18 153/76 H 95 06/22/21 08:43 06/22/21 08:43 06/22/21 08:43 06/22/21 08:43 06/22/21 08:43 Oxygen Flow Rate (L/min) 6 Oxygen Delivery Method Nasal Cannula Weight: 128.849 kg Body Mass Index (BMI) 50.2 Intake & Output: Intake and Output for Last 24 Hours 06/20/21 06/21/21 06/22/21 23:59 23:59 23:59 Intake Total 800 / 800 450 / 450 500 / 500 Output Total 700 / 700 800 / 800 900 / 900 Balance 100 / 100 -350 / -350 -400 / -400 Lab / Micro Data Result Diagrams: 06/21/21 04:27 06/19/21 05:12 Labs: Laboratory Results - last 24 hr 06/20/21 14:54: Fluid Source BRONCHIAL LAVAGE, Fluid Color RED, Fluid Appearance CLOUDY, Fluid WBC 257, Fluid RBC 2071, Fluid Tot Cell Count TNP, Fluid Ne utrophils 91, Fluid Lymphocytes 7, Fluid Macrophages 2, Fl Pathologist Comment May follow 06/21/21 11:22: POC Glucose 278 H 06/21/21 16:10: POC Glucose 304 H 06/21/21 21:50: POC Glucose 289 H 06/22/21 06:32: POC Glucose 214 H Micro: Microbiology 06/20/21 14:54 Bronchial Lavage - Left Upper Lobe Gram Stain - Final 06/20/21 14:54 Bronchial Lavage - Left Upper Lobe Respiratory Culture - Preliminary GNR Poss Pseudomonas sp 06/20/21 14:52 [place] Gram Stain - Final 06/20/21 14:52 [place] Bronchial [place] Culture - Preliminary GNR Poss Pseudomonas sp 06/19/21 03:30 Sputum, Expectorated/Coughed Gram Stain - Final 06/19/21 03:30 Sputum, Expectorated/Coughed Respiratory Culture - Final Pseudomonas aeroginosa#2 Pseudomonas aeroginosa 06/18/21 18:45 Blood Culture (Wb) - Right Hand Blood Culture - Preliminary No growth in 48 hours. 06/18/21 17:50 Blood Culture (Wb) - Anticubital Left Blood Culture - Preliminary No growth in 48 hours. 06/19/21 03:30 Urine, Random Legionella Antigen - Final 06/19/21 03:30 Urine, Random Streptococcus pneumoniae Antigen (M - Final 06/18/21 17:51 Nasal Secretion SARS-CoV-2 Antigen (Rapid) - Final Physical Exam Const alert, oriented x3, no apparent distress and healthy appearing General Appearance: cooperative, well kempt and well developed Orientation / Consciousness: awake, oriented to person, oriented to place and oriented to time Nutritional Appearance: morbidly obese HEENT normocephalic and moist oral mucous membranes Eyes PERRL, EOMs intact bilaterally and conjunctivae normal Neck nuchal rigidity, supple, no JVD and thyroid normal General: trachea midline Resp normal respiratory effort, no retractions and no use of accessory muscles Resp Narrative: Decreased breath sounds are noted over the right lung holcomb Auscultation: Negative for rales, rhonchi or wheezes Cardio regular rate, regular rhythm, S1 normal heart sound, S2 normal heart sound, no murmurs, no rub and no gallops GI normal to inspection, nondistended, normoactive bowel sounds, soft to palpation, non-tender and non-distended Extremity no clubbing, cyanosis or edema Skin no rashes or lesions noted General Skin Exam: no breakdown Neuro oriented x3, CN's II-XII intact bilaterally, no focal motor deficits and no sensory deficits noted Sensorium / Orientation: awake and alert Speech: speech normal Psych thought process normal and affect normal Assessment & Plan Assessment/Plan (1) Pneumonia: QUALIFIERS: Pneumonia type: due to unspecified organism Laterality: right Lung location: unspecified part of lung Qualified Code(s): J18.9 - Pneumonia, unspecified organism PLAN: 1. right-sided community-acquired pneumonia-Pseudomonas--continue present antibiotic coverage, pulmonary medicine is participating in her care #2 acute on chronic hypoxic respiratory failure-patient is currently on 6 L via nasal cannula, she requires 2 L at home., Pulse ox will be monitored #3 type 2 diabetes-I have elected at this time to keep her off her U500 home insulin I will reevaluate her insulin usage today-I will place her on 10 units of Lantus twice a day, patient is almost in control with sliding scale insulin. #4 hyperlipidemia-patient is currently on a statin #5 morbid obesity-complicates care, recovery, and prognosis.-Nutritional services will see patient #6 chronic depression/anxiety-patient is on Paxil #7 obstructive sleep apnea-patient uses CPAP at home this will be continued here #8 essential hypertension-patient to continue her present medication #9 chronic asthma-patient will receive aerosol treatments and oral corticosteroids, she has been seen by pulmonary medicine #10 leukocytosis-probably secondary to corticosteroid usage Sepsis was ruled out Charges/Coding Visit Charges Inpatient E&M: 14254 Subs Hosp L2
[2021-06-22 11:31] LABS: Bedside Glucose 235 mg/dL (70-110)
[2021-06-22 16:51] LABS: Bedside Glucose 349 mg/dL (70-110)
[2021-06-22] MEDS: Albuterol 2.5 MG/3 ML VIAL.NEB. INHALATION (19:26)
[2021-06-22] MEDS: carBAMazepine 200 MG Tablet PO (21:44)
[2021-06-22] MEDS: Atorvastatin Calcium 40 MG Tablet PO (21:44)
[2021-06-22] MEDS: Loratadine 10 MG Tablet PO (21:44)
[2021-06-22] MEDS: Pramipexole Di-HCl 0.5 MG Tablet PO (21:44)
[2021-06-22 22:41] LABS: Bedside Glucose 336 mg/dL (70-110)
[2021-06-23] VITALS (8 sets, daily range): BP systolic 104–125; BP diastolic 54–64; PULSE 63–80; RESP 12–24; TEMP 36.6–36.8; O2SAT 91–96
[2021-06-23] MEDS: Piperacil/Tazobactam 3.375 GM/50 ML ML IV ×3 (05:05→22:17)
[2021-06-23 06:03] LABS: Absolute Lymphocyte Count 0.66 X10^3/uL (0.83-4.51); Absolute Neutrophil Count 10.7 X10^3/uL (2.0-7.7); Basophil# 0.03 X10^3/uL; Basophil% 0.2 % (0-1); Eosinophil# 0.15 X10^3/uL; Eosinophils% 1.2 % (0-5); Hematocrit 29.9 % (37-47); Hemoglobin 9.2 g/dL (12.0-15.0); Lymphocyte # 0.66 X10^3/ul (0.83-4.51); Lymphocyte % 5.4 % (19-41); Mean Corp Hgb Conc 30.8 g/dL (32-36); Mean Corpuscular Hgb 25.8 pg (27.0-32.0); Mean Platelet Vol. 9.6 fl (6.2-12.0); Monocyte# 0.72 X10^3/uL; Monocyte% 5.8 % (0-10); NRBC Flagged by Analyzer 0 % (0-5); Neutrophil # 10.69 X10^3/uL (2.7-7.7); Neutrophil % 86.9 % (47-70); Platelet Count 243 K/mm3 (150-450); RBC Distribution Width SD 48.9 fl (35.1-43.9); Red Blood Count 3.56 M/mm3 (4.2-5.4); White Blood Count 12.3 K/mm3 (4.4-11.0)
[2021-06-23 06:50] LABS: Bedside Glucose 173 mg/dL (70-110)
[2021-06-23] MEDS: Budesonide Respules 0.5 MG/2 ML AMPUL.NEB. INHALATION ×2 (07:09→20:01)
[2021-06-23] MEDS: Insulin Lispro 100 UNIT/ML INSULN.PEN SC ×4 (08:16→22:22)
[2021-06-23] MEDS: Potassium Chloride Oral Tablet 10 MEQ PO (08:18)
--- NOTE | 2021-06-23 10:16 | PCM.PN.HOSP ---
Subjective Subjective Feels better today, states that she is breathing little bit better today as well. She did very well overnight with her BiPAP. She does wear about 2 L nasal cannula at home Objective Data Objective Data Vital Signs: Vital Signs Temp Pulse Resp BP Pulse Ox 98.3 F 74 18 120/54 L 94 06/23/21 07:59 06/23/21 07:59 06/23/21 07:59 06/23/21 07:59 06/23/21 07:59 Oxygen Flow Rate (L/min) 5 Oxygen Delivery Method Nasal Cannula Weight: 287 lb 7.724 oz Body Mass Index (BMI) 50.2 Intake & Output: Intake and Output for Last 24 Hours 06/22/21 06/23/21 06/24/21 03:59 03:59 03:59 Intake Total 650 / 650 650 / 650 100 / 100 Output Total 1400 / 1400 1100 / 1100 200 / 200 Balance -750 / -750 -450 / -450 -100 / -100 Lab / Micro Data Result Diagrams: 06/23/21 05:40 06/19/21 05:12 Labs: Laboratory Results - last 24 hr 06/22/21 11:21: POC Glucose 235 H 06/22/21 16:22: POC Glucose 349 H 06/22/21 21:43: POC Glucose 336 H 06/23/21 05:40: WBC 12.3 H, RBC 3.56 L, Hgb 9.2 L, Hct 29.9 L, MCV 84.0, MCH 25.8 L, MCHC 30.8 L, RDW Std Deviation 48.9 H, RDW Coeff of Aniceto 16.0 H, Plt Count 243, MPV 9.6, Immature Gran % (Auto) 0.500, Neut % (Auto) 86.9 H, Lymph % (Auto) 5.4 L, [place] % (Auto) 5.8, Eos % (Auto) 1.2, Baso % (Auto) 0.2, Absolute Neuts (auto) 10.7 H, Absolute Lymphs (auto) 0.66 L, Nucleated RBC % 0 06/23/21 06:39: POC Glucose 173 H Micro: Microbiology 06/20/21 14:54 Bronchial Lavage - Left Upper Lobe Gram Stain - Final 06/20/21 14:54 Bronchial Lavage - Left Upper Lobe Respiratory Culture - Final Pseudomonas aeroginosa 06/20/21 14:52 [place] Gram Stain - Final 06/20/21 14:52 [place] Bronchial [place] Culture - Final Pseudomonas aeroginosa 06/19/21 03:30 Sputum, Expectorated/Coughed Gram Stain - Final 06/19/21 03:30 Sputum, Expectorated/Coughed Respiratory Culture - Final Pseudomonas aeroginosa#2 Pseudomonas aeroginosa 06/18/21 18:45 Blood Culture (Wb) - Right Hand Blood Culture - Preliminary No growth in 48 hours. 06/18/21 17:50 Blood Culture (Wb) - Anticubital Left Blood Culture - Preliminary No growth in 48 hours. 06/19/21 03:30 Urine, Random Legionella Antigen - Final 06/19/21 03:30 Urine, Random Streptococcus pneumoniae Antigen (M - Final 06/18/21 17:51 Nasal Secretion SARS-CoV-2 Antigen (Rapid) - Final Physical Exam Const alert, oriented x3 and no apparent distress General Appearance: cooperative HEENT normocephalic and moist oral mucous membranes Eyes PERRL, EOMs intact bilaterally and conjunctivae normal Neck supple and no JVD Resp normal respiratory effort, no retractions and no use of accessory muscles Auscultation: crackles and diminished lung sounds; Negative for rales, rhonchi or wheezes Cardio regular rate, regular rhythm, S1 normal heart sound, S2 normal heart sound and no murmurs GI soft to palpation, non-tender and non-distended; Negative for hepatosplenomegaly Extremity no clubbing, cyanosis or edema Skin no rashes or lesions noted Neuro no focal motor deficits and no sensory deficits noted Psych affect normal Appearance: appropriate Assessment & Plan Assessment/Plan (1) Pneumonia: QUALIFIERS: Pneumonia type: due to unspecified organism Laterality: right Lung location: unspecified part of lung Qualified Code(s): J18.9 - Pneumonia, unspecified organism PLAN: 1. Acute on chronic hypoxic respiratory failure secondary to right-sided pseudomonal pneumonia/DORY/chronic asthma ? Appreciate pulmonology's assistance ? Continue with oral steroids and inhalers ? She is status post bronchoscopy ? Continue with Zosyn, Pseudomonas is pansensitive so there are oral options when she is appropriate for discharge ? Home O2 requirement is 2 L she is currently on 5-6 2. HTN/HLD/morbid obesity ? Blood pressure is stable ? Continue with her home blood pressure medications ? Continue with her statin ? Discuss weight loss and lifestyle modifications 3. DM2 ? We will continue with her home insulin and hold any oral hypoglycemic medications ? Sliding scale insulin and Accu-Cheks AC at bedtime ? We will adjust as necessary 4. Depression/anxiety ? Stable ? Continue with Paxil DVT: SCDs Charges/Coding Visit Charges Inpatient E&M: 26497 Subs Hosp L2
[2021-06-23] MEDS: Paroxetine 20 MG Tablet 40 MG PO (10:23)
[2021-06-23] MEDS: Nadolol 40 MG Tablet PO (10:23)
[2021-06-23] MEDS: Pantoprazole Sodium 40 MG Tablet PO ×2 (10:23→22:18)
[2021-06-23] MEDS: Iron Polysaccharide Complex 150 MG CAPSULE PO ×2 (10:23→23:09)
[2021-06-23] MEDS: predniSONE 10 MG Tablet 30 MG PO (10:24)
[2021-06-23] MEDS: Montelukast 10 MG Tablet PO (10:24)
--- NOTE | 2021-06-23 10:41 | CASEMGMT ---
JASWINDER PLASCENCIA received call from daughter Santa regarding discharge planning. Patient has aide services through [facility]. JASWINDER PLASCENCIA discussed re-evaluating for [facility] for nursing and therapy as daughter voiced concerns for falls and patient not taking medications at home. Daughter had no further questions at this time. JASWINDER PLASCENCIA in to discuss discharge planning with patient as she is alert and oriented. Patient states she is not sure what she needs at discharge. JASWINDER PLASCENCIA encouraged patient to review HHC list and CM will follow-up with patient later. Patient voiced understanding and had no further questions or concerns at this time. CM will continue to follow this patient and plan for a safe discharge.
[2021-06-23] MEDS: Nystatin Powder 15gm Bottle 1 APPLIC TOPICAL ×2 (11:24→22:23)
[2021-06-23 11:35] LABS: Bedside Glucose 236 mg/dL (70-110)
[2021-06-23 13:58] LABS: Pathologist Comment/Body Fluid Reviewed
[2021-06-23 17:20] LABS: Bedside Glucose 353 mg/dL (70-110)
[2021-06-23] MEDS: levoFLOXacin IV 750 MG/150 ML BAG 100 MG IV (18:51)
[2021-06-23] MEDS: Atorvastatin Calcium 40 MG Tablet PO (22:18)
[2021-06-23] MEDS: Loratadine 10 MG Tablet PO (22:18)
[2021-06-23] MEDS: Pramipexole Di-HCl 0.5 MG Tablet PO (22:18)
[2021-06-23] MEDS: carBAMazepine 200 MG Tablet PO (22:19)
[2021-06-24] VITALS (8 sets, daily range): BP systolic 116–137; BP diastolic 51–88; PULSE 67–77; RESP 12–23; TEMP 36.8–37.3; O2SAT 92–98
[2021-06-24 00:26] LABS: Bedside Glucose 329 mg/dL (70-110)
[2021-06-24 04:34] LABS: Absolute Lymphocyte Count 0.64 X10^3/uL (0.83-4.51); Absolute Neutrophil Count 8.1 X10^3/uL (2.0-7.7); Basophil# 0.01 X10^3/uL; Basophil% 0.1 % (0-1); Hemoglobin 9.1 g/dL (12.0-15.0); Lymphocyte # 0.64 X10^3/ul (0.83-4.51); Lymphocyte % 6.7 % (19-41); Mean Corp Hgb Conc 30.3 g/dL (32-36); Mean Corpuscular Hgb 25.9 pg (27.0-32.0); Mean Corpuscular Volume 85.2 fL (81-99); Mean Platelet Vol. 9.6 fl (6.2-12.0); Monocyte# 0.56 X10^3/uL; Monocyte% 5.9 % (0-10); NRBC Flagged by Analyzer 0 % (0-5); Neutrophil # 8.14 X10^3/uL (2.7-7.7); Neutrophil % 85.5 % (47-70); Platelet Count 226 K/mm3 (150-450); RBC Distribution Width CV 15.8 % (11.6-14.6); RBC Distribution Width SD 49.3 fl (35.1-43.9); Red Blood Count 3.52 M/mm3 (4.2-5.4); White Blood Count 9.5 K/mm3 (4.4-11.0)
[2021-06-24] MEDS: Piperacil/Tazobactam 3.375 GM/50 ML ML IV ×3 (05:00→21:46)
[2021-06-24 05:08] LABS: Anion Gap 7 (5-15); BUN 19 mg/dL (7-18); BUN/Creat Ratio 23.5 RATIO (10-20); Calcium,Total 9.4 mg/dL (8.5-10.1); Chloride 96 mmol/L (98-107); Creatinine, Serum 0.81 mg/dL (0.55-1.02); EST Glomerular Filtration Rate 74 mL/min (>60); Est Glom Filt Rate - Afr Amer 89 mL/min (>60); Estimated Creatinine Clearance 48.19 ml/min; Glucose 245 mg/dL (74-106); Potassium 3.6 mmol/L (3.5-5.1); Sodium Level 136 mmol/L (136-145)
[2021-06-24] MEDS: Insulin Lispro 100 UNIT/ML INSULN.PEN SC ×4 (06:31→21:41)
[2021-06-24 06:41] LABS: Bedside Glucose 197 mg/dL (70-110)
[2021-06-24] MEDS: Budesonide Respules 0.5 MG/2 ML AMPUL.NEB. INHALATION ×2 (07:18→20:21)
--- NOTE | 2021-06-24 08:45 | RAD_ITS ---
STUDY: X-RAY CHEST REASON FOR EXAM: Female, 75 years old. Pneumonia TECHNIQUE: AP and lateral views of the chest. COMPARISON: Comparison is made with prior study dated 12/18/2021. FINDINGS: Surgical clips are seen in the right axillary region. Stable volume loss and soft tissue density in the right lung apex. The left lung is clear. Normal size heart. Normal mediastinum and tanna. Normal visualized pulmonary arteries. Normal visualized aortic arch and descending thoracic aorta. Normal visualized thoracic spine. Normal visualized ribs, clavicles, and shoulders. There is no demonstrated abnormality of the visualized soft tissue structures of the upper abdomen. RAD/Chest PA and Lateral IMPRESSION: Stable volume loss and infiltration in the right upper lobe. Electronically Signed: Salazar Garcia MD at 13:57 EST , Service support ,
[2021-06-24] MEDS: Nadolol 40 MG Tablet PO (08:59)
[2021-06-24] MEDS: Montelukast 10 MG Tablet PO (08:59)
[2021-06-24] MEDS: Pantoprazole Sodium 40 MG Tablet PO ×2 (08:59→21:45)
[2021-06-24] MEDS: predniSONE 10 MG Tablet 30 MG PO (08:59)
[2021-06-24] MEDS: Paroxetine 20 MG Tablet 40 MG PO (08:59)
[2021-06-24] MEDS: Potassium Chloride Oral Tablet 10 MEQ PO (08:59)
[2021-06-24] MEDS: Nystatin Powder 15gm Bottle 1 APPLIC TOPICAL ×2 (09:00→21:46)
[2021-06-24] MEDS: Iron Polysaccharide Complex 150 MG CAPSULE PO ×2 (09:00→21:45)
--- NOTE | 2021-06-24 09:20 | PN_ITS ---
Subjective: the patient indicates that she is about 50% better. She still has shortness of breath. She still has generalized weakness. She is unable to expectorate any sputum. She has significant congestion in the chest. Her appetite is good and she is tolerating antibiotics. - Physical Exam Vitals/I&O's: Vital Signs Temp Pulse Resp BP Pulse Ox 99.1 F 77 18 137/87 H 94 06/24/21 08:14 06/24/21 08:14 06/24/21 08:14 06/24/21 08:14 06/24/21 08:14 Oxygen Flow Rate (L/min) 3 Oxygen Delivery Method Nasal Cannula Weight: 130 kg Body Mass Index (BMI) 50.2 Intake and Output for Last 24 Hours 06/22/21 06/23/21 06/24/21 23:59 23:59 23:59 Intake Total 550 / 850 700 / 1100 500 / 500 Output Total 1400 / 1700 500 / 1100 900 / 900 Balance -850 / -850 200 / 0 -400 / -400 General: Alert, Oriented x3, Cooperative HEENT: Atraumatic, PERRLA, EOMI, Normocephalic Oral: Moist Mucosa Neck: Supple, No JVD, Negative Carotid Bruits, Trachea Midline Lungs: - - scattered rhonchi, egophony in the right anterior, lateral chest. Diminished breath sounds right, no wheezing, no accessory muscle use no stridor Cardiovascular: Regular rate, No murmurs Abdomen: Bowel Sounds Present, Soft, Non Tender Extremities: Capillary Refill Less than 3 Seconds, - - 2+ pitting edema Skin: No rashes, No breakdown Musculoskeletal: No Tenderness to Palpation of Joints or Extremities Neurological: Cranial nerves II-XII grossly intact Psych/Mental Status: Normal Affect, Appropriate Microbiology Past 72 Hours 06/18/21 18:45 Blood Culture (Wb) - Right Hand Blood Culture - Final No growth in 5 days. 06/18/21 17:50 Blood Culture (Wb) - Anticubital Left Blood Culture - Final No growth in 5 days. 06/20/21 14:54 Bronchial Lavage - Left Upper Lobe Gram Stain - Final 06/20/21 14:54 Bronchial Lavage - Left Upper Lobe Respiratory Culture - Final Pseudomonas aeroginosa 06/20/21 14:52 [place] Gram Stain - Final 06/20/21 14:52 [place] Bronchial [place] Culture - Final Pseudomonas aeroginosa 06/19/21 03:30 Sputum, Expectorated/Coughed Gram Stain - Final 06/19/21 03:30 Sputum, Expectorated/Coughed Respiratory Culture - Final Pseudomonas aeroginosa#2 Pseudomonas aeroginosa Laboratory Results 06/20/21 14:54: Fl Pathologist Comment Reviewed 06/23/21 11:26: POC Glucose 236 H 06/23/21 17:05: POC Glucose 353 H 06/23/21 22:14: POC Glucose 329 H 06/24/21 04:19: WBC 9.5, RBC 3.52 L, Hgb 9.1 L, Hct 30.0 L, MCV 85.2, MCH 25.9 L , MCHC 30.3 L, RDW Std Deviation 49.3 H, RDW Coeff of Aniceto 15.8 H, Plt Count 226, MPV 9.6, Immature Gran % (Auto) 0.800, Neut % (Auto) 85.5 H, Lymph % (Auto) 6.7 L, [place] % (Auto) 5.9, Eos % (Auto) 1.0, Baso % (Auto) 0.1, Absolute Neuts (auto) 8.1 H, Absolute Lymphs (auto) 0.64 L, Nucleated RBC % 0 06/24/21 04:19: Sodium 136, Potassium 3.6, Chloride 96 L, Carbon Dioxide 33.0 H, Anion Gap 7, BUN 19 H, Creatinine 0.81, Estim Creat Clear Calc 48.19, Est GFR (MDRD) Af Amer 89, Est GFR (MDRD) Non-Af 74, BUN/Creatinine Ratio 23.5 H, Glucose 245 H, Calcium 9.4 06/24/21 06:29: POC Glucose 197 H Current Medications Acetaminophen (Acetaminophen 325 Mg Tablet) 650 mg PO Q4H PRN PRN PRN Reason: Fever, pain 1-10/10 Al Hydroxide/Mg Hydroxide (Mag Hydrox/Al Hydrox/Simeth 30 Ml Udc) 30 ml PO Q6H PRN PRN PRN Reason: Gastric Burning Albuterol Sulfate (Albuterol 2.5 Mg/3 Ml Vial.Neb.) 2.5 mg INHALATION Q2H PRN PRN PRN Reason: Dyspnea, wheezing Last Admin: 06/22/21 19:26 Dose: 2.5 mg Documented by: Atorvastatin Calcium (Atorvastatin Calcium 40 Mg Tablet) 40 mg PO QHS [facility] Last Admin: 06/23/21 22:18 Dose: 40 mg Documented by: Budesonide (Budesonide Respules 0.5 Mg/2 Ml Ampul.Neb.) 0.5 mg INHALATION BID.RT [facility] Last Admin: 06/24/21 07:18 Dose: 0.5 mg Documented by: Carbamazepine (Carbamazepine 200 Mg Tablet) 200 mg PO QHS [facility] Last Admin: 06/23/21 22:19 Dose: 200 mg Documented by: Dextrose (Dextrose 50%-Water 25 Gm/50 Ml Disp.Syrin) 0 gm IV X1 PRN; Protocol PRN Reason: Hypoglycemia Glucagon (Glucagon 1 Mg/Ml Syringe) 1 mg IM .X1 PRN PRN Reason: Hypoglycemia Hydralazine HCl (Hydralazine 20 Mg/Ml Vial) 10 mg IV Q4H PRN PRN PRN Reason: SBP > 160 Sodium Chloride () 250 mls @ 15 mls/hr IV .[id number] PRN PRN Reason: Saline Flush Sodium Chloride () 250 mls @ 15 mls/hr IV .[id number] PRN PRN Reason: Additional IVPB Infusion Last Infusion: 06/20/21 03:02 Dose: Infused Documented by: Piperacillin Sod/Tazobactam Sod (Zosyn) 3.375 gm in 50 mls @ 12.5 mls/hr IV Q8 [facility] Last Infusion: 06/24/21 09:07 Dose: Infused Documented by: Levofloxacin (Levaquin Iv) 750 mg in 150 mls @ 100 mls/hr IV Q48 [facility] Last Infusion: 06/23/21 20:21 Dose: Infused Documented by: Insulin Glargine (Insulin Glargine 100 Units/Ml Pen) 25 units SC BREAKFAST [facility] Last Admin: 06/24/21 09:00 Dose: 25 u Documented by: Insulin Glargine (Insulin Glargine 100 Units/Ml Pen) 25 units SC DINNER [facility] Insulin Human Lispro (Insulin Lispro 100 Unit/Ml Insuln.Pen) 0 unit SC ACHS [facility]; Protocol Last Admin: 06/24/21 06:31 Dose: 2 units Documented by: Insulin Human Lispro (Insulin Lispro 100 Unit/Ml Insuln.Pen) 10 unit SC TIDAC [facility] Loperamide HCl (Loperamide 2 Mg Capsule) 2 mg PO Q4H PRN PRN PRN Reason: DIARRHEA/LOOSE STOOLS Loratadine (Loratadine 10 Mg Tablet) 10 mg PO QHS [facility] Last Admin: 06/23/21 22:18 Dose: 10 mg Documented by: Melatonin (Melatonin 3 Mg Tablet) 3 mg PO QHS PRN PRN PRN Reason: INSOMNIA Montelukast Sodium (Montelukast 10 Mg Tablet) 10 mg PO DAILY [facility] Last Admin: 06/24/21 08:59 Dose: 10 mg Documented by: Nadolol (Nadolol 40 Mg Tablet) 40 mg PO DAILY [facility] Last Admin: 06/24/21 08:59 Dose: 40 mg Documented by: Nystatin (Nystatin Powder 15gm Bottle) 1 applic TOPICAL BID [facility]; Protocol Last Admin: 06/24/21 09:00 Dose: 1 applic Documented by: Ondansetron HCl (Ondansetron 4 Mg/2 Ml Vial) 4 mg IV Q8H PRN PRN PRN Reason: NAUSEA/VOMITING Pantoprazole Sodium (Pantoprazole Sodium 40 Mg Tablet) 40 mg PO BID [facility] Last Admin: 06/24/21 08:59 Dose: 40 mg Documented by: Paroxetine HCl (Paroxetine 20 Mg Tablet) 40 mg PO DAILY [facility] Last Admin: 06/24/21 08:59 Dose: 40 mg Documented by: Polysaccharide Iron Complex (Iron Polysaccharide Complex 150 Mg Capsule) 150 mg PO BID [facility] Last Admin: 06/24/21 09:00 Dose: 150 mg Documented by: Potassium Chloride (Potassium Chloride Oral Tablet 10 Meq) [facility] Last Admin: 06/24/21 08:59 Dose: 10 meq Documented by: Pramipexole Dihydrochloride (Pramipexole Di-Hcl 0.5 Mg Tablet) 0.5 mg PO QHS [facility] Last Admin: 06/23/21 22:18 Dose: 0.5 mg Documented by: Prednisone (Prednisone 10 Mg Tablet) 30 mg PO DAILY [facility] Last Admin: 06/24/21 08:59 Dose: 30 mg Documented by: Prochlorperazine Edisylate (Prochlorperazine 10 Mg/2 Ml Vial) 5 mg IV Q4H PRN PRN PRN Reason: Breakthrough nausea/vomiting Sodium Chloride (0.9% Saline Lock 10 Ml Syringe) 10 - 40 ml IV UD PRN PRN Reason: SALINE FLUSH Patient Problems: Active and Suspected Problems (Last Reviewed 06/18/21 @ 21:44 by Carlin Elliott) Lactic acidosis (Acute) Pneumonia (Acute) SOB (shortness of breath) (Acute) Sepsis (Acute) Medical Necessity - Tobacco Use Smoking Status: Former smoker Tobacco Use: Non-smoker Assessment/Plan the patient has Pseudomonas pneumonia, Pseudomonas is sensitive She has significant narrowing of the right upper lobe takeoff such that very little pus was draining from the airway. The airway was patent as the forceps were easily passed. During lavage there was very little drainage and this is uncommon with a florid pneumonia. 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 from the orifice of the right upper lobe segments The patient is rather debilitated and gets around very poorly and a nursing facility for the next 7 days at least so the patient can get antibiotics is warranted PA and lateral chest in the x-ray department today to see if there is any clearing of the infiltrates, there is some encouragement with a drop of the white count into the normal range All Active Problems (Last Reviewed 06/18/21 @ 21:44 by Carlin Elliott) Lactic acidosis (Acute) Pneumonia (Acute) SOB (shortness of breath) (Acute) Sepsis (Acute) Cellulitis of right breast (Ruled-out) Influenza (Ruled-out) Staphylococcal pneumonia (Ruled-out) Hypokalemia (Acute) Suspected 2019-nCoV infection (Ruled-out) Acute and chronic respiratory failure with hypoxia (Acute) Hypoxia (Acute) Diabetes mellitus, type II (Acute) Acute severe exacerbation of asthma (Resolved) Recurrent pneumonia (Resolved) Streptococcal pneumonia (Resolved) Weakness (Resolved)
--- NOTE | 2021-06-24 09:28 | PCM.PN.HOSP ---
Subjective Subjective Doing well, still coughing but is now down to 3 L nasal cannula and she will need to ambulate with physical therapy today for evaluation of discharge planning Objective Data Objective Data Vital Signs: Vital Signs Temp Pulse Resp BP Pulse Ox 99.1 F 77 18 137/87 H 94 06/24/21 08:14 06/24/21 08:14 06/24/21 08:14 06/24/21 08:14 06/24/21 08:14 Oxygen Flow Rate (L/min) 3 Oxygen Delivery Method Nasal Cannula Weight: 286 lb 9.615 oz Body Mass Index (BMI) 50.2 Intake & Output: Intake and Output for Last 24 Hours 06/23/21 06/24/21 06/25/21 03:59 03:59 03:59 Intake Total 650 / 650 800 / 800 50 / 50 Output Total 1100 / 1100 800 / 800 300 / 300 Balance -450 / -450 0 / 0 -250 / -250 Lab / Micro Data Result Diagrams: 06/24/21 04:19 06/24/21 04:19 Labs: Laboratory Results - last 24 hr 06/20/21 14:54: Fl Pathologist Comment Reviewed 06/23/21 11:26: POC Glucose 236 H 06/23/21 17:05: POC Glucose 353 H 06/23/21 22:14: POC Glucose 329 H 06/24/21 04:19: WBC 9.5, RBC 3.52 L, Hgb 9.1 L, Hct 30.0 L, MCV 85.2, MCH 25.9 L, MCHC 30.3 L, RDW Std Deviation 49.3 H, RDW Coeff of Aniceto 15.8 H, Plt Count 226, MPV 9.6, Immature Gran % (Auto) 0.800, Neut % (Auto) 85.5 H, Lymph % (Auto) 6.7 L, [place] % (Auto) 5.9, Eos % (Auto) 1.0, Baso % (Auto) 0.1, Absolute Neuts (auto) 8.1 H, Absolute Lymphs (auto) 0.64 L, Nucleated RBC % 0 06/24/21 04:19: Sodium 136, Potassium 3.6, Chloride 96 L, Carbon Dioxide 33.0 H, Anion Gap 7, BUN 19 H, Creatinine 0.81, Estim Creat Clear Calc 48.19, Est GFR (MDRD) Af Amer 89, Est GFR (MDRD) Non-Af 74, BUN/Creatinine Ratio 23.5 H, Glucose 245 H, Calcium 9.4 06/24/21 06:29: POC Glucose 197 H Micro: Microbiology 06/18/21 18:45 Blood Culture (Wb) - Right Hand Blood Culture - Final No growth in 5 days. 06/18/21 17:50 Blood Culture (Wb) - Anticubital Left Blood Culture - Final No growth in 5 days. 06/20/21 14:54 Bronchial Lavage - Left Upper Lobe Gram Stain - Final 06/20/21 14:54 Bronchial Lavage - Left Upper Lobe Respiratory Culture - Final Pseudomonas aeroginosa 06/20/21 14:52 [place] Gram Stain - Final 06/20/21 14:52 [place] Bronchial [place] Culture - Final Pseudomonas aeroginosa 06/19/21 03:30 Sputum, Expectorated/Coughed Gram Stain - Final 06/19/21 03:30 Sputum, Expectorated/Coughed Respiratory Culture - Final Pseudomonas aeroginosa#2 Pseudomonas aeroginosa 06/19/21 03:30 Urine, Random Legionella Antigen - Final 06/19/21 03:30 Urine, Random Streptococcus pneumoniae Antigen (M - Final 06/18/21 17:51 Nasal Secretion SARS-CoV-2 Antigen (Rapid) - Final Physical Exam Narrative Const alert, oriented x3 and no apparent distress General Appearance: cooperative HEENT normocephalic and moist oral mucous membranes Eyes PERRL, EOMs intact bilaterally and conjunctivae normal Neck supple and no JVD Resp normal respiratory effort, no retractions and no use of accessory muscles Auscultation: crackles and diminished lung sounds; Negative for rales, rhonchi or wheezes Cardio regular rate, regular rhythm, S1 normal heart sound, S2 normal heart sound and no murmurs GI soft to palpation, non-tender and non-distended; Negative for hepatosplenomegaly Extremity no clubbing, cyanosis or edema Skin no rashes or lesions noted Neuro no focal motor deficits and no sensory deficits noted Psych affect normal Appearance: appropriate Assessment & Plan Assessment/Plan (1) Pneumonia: QUALIFIERS: Pneumonia type: due to unspecified organism Laterality: right Lung location: unspecified part of lung Qualified Code(s): J18.9 - Pneumonia, unspecified organism PLAN: 1. Acute on chronic hypoxic respiratory failure secondary to right-sided pseudomonal pneumonia/DORY/chronic asthma ? Appreciate pulmonology's assistance ? Continue with oral steroids and inhalers ? She is status post bronchoscopy ? Continue with Zosyn phonology would like her Pseudomonas to be double covered therefore discharge planning will include IV cefepime as well as p.o. Levaquin ? Home O2 requirement is 2 L she is currently on 3 ? PT/OT evaluation for discharge planning ? Cytology is pending from her bronchial brushing 2. HTN/HLD/morbid obesity ? Blood pressure is stable ? Continue with her home blood pressure medications ? Continue with her statin ? Discuss weight loss and lifestyle modifications 3. DM2 ? We will continue with her home insulin and hold any oral hypoglycemic medications ? Sliding scale insulin and Accu-Cheks AC at bedtime ? We will adjust as necessary 4. Depression/anxiety ? Stable ? Continue with Paxil DVT: SCDs Charges/Coding Visit Charges Inpatient E&M: 97975 Subs Hosp L2
[2021-06-24] MEDS: Insulin Lispro 100 UNIT/ML INSULN.PEN 10 UNIT SC ×2 (11:05→16:19)
[2021-06-24 11:10] LABS: Bedside Glucose 278 mg/dL (70-110)
--- NOTE | 2021-06-24 11:25 | CASEMGMT ---
Social Work SW spoke w/RN, she states pt needs IV antibiotics for 7-10 days as per asbestos microscopist and would benefit from going to SNF. SW called [facility] ahead of time to check on bed availability, they do not have availability for this pt at this time. SW met w/pt in room, spoke w/her about going somewhere to get IV antibiotics. SW provided to pt a list of group home facilities that take pt's insurance, in pt's preferred geographic area, complete with quality and resource use data. Pt states she is not certain and asked SW to call her daughter. She did say however she does not want to be in a shared room. SW called daughter Santa, she was aware that we were considering SNF placement for pt. She asked about [facility]. SW let her know that TCU does not have availability for this pt. Santa then went on to say that she really wants pt to go to [facility]CU due to private rooms, pt to staff ratio, and focus on cleanliness. SW again reiterated that [facility] does not have any availability. SW offered to email daughter list of group home facilities in pt's insurance network, daughter receptive to this. She also reiterated that pt needs to be in a private room, SW let her know we will look into options that have private rooms. Daughter states understanding. SW emailed to daughter list of group home facilities, complete with quality and resource use data, in pt's preferred geographic area, that takes pt's insurance. SW asked daughter to let SW know choices later today. Plan: SNF, facility TBD. SW will continue to follow. YVETTE Pinto
--- NOTE | 2021-06-24 14:26 | CASEMGMT ---
Social Work ROMI received an email from pt's daughter again requesting [facility], and [facility] as the only other facility she would consider for pt. She also asked about home health options. SW called daughter back and again reiterated that there is no bed availability in [facility]. Daughter asked if pt can be put on the wait list. SW explained that pt can, but it is unlikely a bed will become available. SW also explained that if a bed becomes available, there is no guarantee that [facility] will take pt, it will depend on her clinical needs and insurance. Daughter states understanding. She asked about [facility]. SW explained that [facility] is not taking pts this week due to a COVID outbreak. Daughter asked about home health. SW explained that home health can come in to do therapy, but as per case management, nursing would only be covered 1-2 times per week. SW explained that when pt needs IV antibiotics, home care comes in to train family, not to administer the IVs each time they are due. Pt is prescribed Levaquin Q48 and Zosyn Q8. SW asked daughter if there is any family that would be able to help with antibiotics Q8. Daughter states that she is going to ask her niece who is a nurse if she could help. Daughter reiterated that they are trying to keep pt safe and she has concerns in sending her to any facility other than [facility] or [facility]. SW offered support to daughter. SW explained can send daughter a longer list of nursing homes that take pt's insurance, if she would like to review and let SW know what she would like to do. Daughter would like this sent to her. ROMI explained pt is ready for discharge so we need to make a decision in the next day or so, pt cannot stay here waiting for a bed in [facility]CU. Daughter states understanding. ROMI emailed SNF list for [facility], complete with quality and resource use data. ROMI also emailed a SNF list of all facilities in a 30 mile radius that take [place], off the [employer] website. Daughter is to call or email this SW back. Pt was put on the TCU list. Should a bed become available, pt's clinical information will be reviewed at that time by Jodi to see if pt would be a candidate for TCU. YVETTE Pinto
[2021-06-24 16:26] LABS: Bedside Glucose 333 mg/dL (70-110)
[2021-06-24] MEDS: Pramipexole Di-HCl 0.5 MG Tablet PO (21:45)
[2021-06-24] MEDS: Atorvastatin Calcium 40 MG Tablet PO (21:45)
[2021-06-24] MEDS: Loratadine 10 MG Tablet PO (21:45)
[2021-06-24] MEDS: carBAMazepine 200 MG Tablet PO (21:46)
[2021-06-24 21:55] LABS: Bedside Glucose 356 mg/dL (70-110)
[2021-06-25] VITALS (12 sets, daily range): BP systolic 100–136; BP diastolic 43–68; PULSE 70–79; RESP 12–22; TEMP 36.3–36.8; O2SAT 88–97
[2021-06-25 03:17] LABS: Absolute Lymphocyte Count 0.76 X10^3/uL (0.83-4.51); Absolute Neutrophil Count 7.3 X10^3/uL (2.0-7.7); Basophil# 0.03 X10^3/uL; Basophil% 0.3 % (0-1); Eosinophil# 0.12 X10^3/uL; Eosinophils% 1.3 % (0-5); Hematocrit 30.3 % (37-47); Hemoglobin 9.5 g/dL (12.0-15.0); Lymphocyte # 0.76 X10^3/ul (0.83-4.51); Lymphocyte % 8.4 % (19-41); Mean Corp Hgb Conc 31.4 g/dL (32-36); Mean Corpuscular Hgb 26.7 pg (27.0-32.0); Mean Corpuscular Volume 85.1 fL (81-99); Mean Platelet Vol. 9.5 fl (6.2-12.0); Monocyte# 0.67 X10^3/uL; Monocyte% 7.4 % (0-10); NRBC Flagged by Analyzer 0 % (0-5); Neutrophil # 7.34 X10^3/uL (2.7-7.7); Neutrophil % 81.2 % (47-70); Platelet Count 253 K/mm3 (150-450); RBC Distribution Width CV 15.9 % (11.6-14.6); RBC Distribution Width SD 48.9 fl (35.1-43.9); Red Blood Count 3.56 M/mm3 (4.2-5.4); White Blood Count 9.1 K/mm3 (4.4-11.0)
[2021-06-25 03:44] LABS: Anion Gap 3 (5-15); BUN 18 mg/dL (7-18); BUN/Creat Ratio 24.2 RATIO (10-20); Calcium,Total 9.5 mg/dL (8.5-10.1); Chloride 96 mmol/L (98-107); Creatinine, Serum 0.74 mg/dL (0.55-1.02); EST Glomerular Filtration Rate 81 mL/min (>60); Est Glom Filt Rate - Afr Amer 98 mL/min (>60); Estimated Creatinine Clearance 39.04 ml/min; Glucose 189 mg/dL (74-106); Potassium 3.6 mmol/L (3.5-5.1); Sodium Level 136 mmol/L (136-145)
[2021-06-25] MEDS: Piperacil/Tazobactam 3.375 GM/50 ML ML IV ×3 (05:24→21:37)
[2021-06-25] MEDS: Budesonide Respules 0.5 MG/2 ML AMPUL.NEB. INHALATION (07:25)
[2021-06-25 08:01] LABS: Bedside Glucose 129 mg/dL (70-110)
--- NOTE | 2021-06-25 08:52 | PN.HOSP_ITS ---
Subjective Subjective Doing well, no issues overnight. Continue with BiPAP at night and 3 L nasal cannula at rest. Objective Data Objective Data Vital Signs: Vital Signs Temp Pulse Resp BP Pulse Ox 98.2 F 73 18 136/63 H 93 06/25/21 07:47 06/25/21 07:47 06/25/21 07:47 06/25/21 07:47 06/25/21 07:47 Oxygen Flow Rate (L/min) 3 Oxygen Delivery Method Nasal Cannula Weight: 287 lb 11.252 oz Body Mass Index (BMI) 50.2 Intake & Output: Intake and Output for Last 24 Hours 06/24/21 06/25/21 06/26/21 03:59 03:59 03:59 Intake Total 800 / 800 1230 / 1230 Output Total 800 / 800 1030 / 1030 400 / 400 Balance 0 / 0 200 / 200 -400 / -400 Lab / Micro Data Result Diagrams: 06/25/21 02:27 06/25/21 02:27 Labs: Laboratory Results - last 24 hr 06/20/21 14:52: Miscellaneous Cytology SEE PATHOLOGY REPORT 06/24/21 11:04: POC Glucose 278 H 06/24/21 16:17: POC Glucose 333 H 06/24/21 21:40: POC Glucose 356 H 06/25/21 02:27: WBC 9.1, RBC 3.56 L, Hgb 9.5 L, Hct 30.3 L, MCV 85.1, MCH 26.7 L , MCHC 31.4 L, RDW Std Deviation 48.9 H, RDW Coeff of Aniceto 15.9 H, Plt Count 253, MPV 9.5, Immature Gran % (Auto) 1.400 H, Neut % (Auto) 81.2 H, Lymph % (Auto) 8.4 L, [place] % (Auto) 7.4, Eos % (Auto) 1.3, Baso % (Auto) 0.3, Absolute Neuts (auto) 7.3, Absolute Lymphs (auto) 0.76 L, Nucleated RBC % 0 06/25/21 02:27: Sodium 136, Potassium 3.6, Chloride 96 L, Carbon Dioxide 37.0 H, Anion Gap 3 L, BUN 18, Creatinine 0.74, Estim Creat Clear Calc 39.04, Est GFR (MDRD) Af Amer 98, Est GFR (MDRD) Non-Af 81, BUN/Creatinine Ratio 24.2 H, Glucose 189 H, Calcium 9.5 06/25/21 07:53: POC Glucose 129 H Micro: Microbiology 06/18/21 18:45 Blood Culture (Wb) - Right Hand Blood Culture - Final No growth in 5 days. 06/18/21 17:50 Blood Culture (Wb) - Anticubital Left Blood Culture - Final No growth in 5 days. 06/20/21 14:54 Bronchial Lavage - Left Upper Lobe Gram Stain - Final 06/20/21 14:54 Bronchial Lavage - Left Upper Lobe Respiratory Culture - Final Pseudomonas aeroginosa 06/20/21 14:52 [place] Gram Stain - Final 06/20/21 14:52 [place] Bronchial [place] Culture - Final Pseudomonas aeroginosa 06/19/21 03:30 Sputum, Expectorated/Coughed Gram Stain - Final 06/19/21 03:30 Sputum, Expectorated/Coughed Respiratory Culture - Final Pseudomonas aeroginosa#2 Pseudomonas aeroginosa 06/19/21 03:30 Urine, Random Legionella Antigen - Final 06/19/21 03:30 Urine, Random Streptococcus pneumoniae Antigen (M - Final 06/18/21 17:51 Nasal Secretion SARS-CoV-2 Antigen (Rapid) - Final Radiography Diagnostic Testing: Radiology Impression Chest X-Ray 06/24/21 08:45 IMPRESSION: Stable volume loss and infiltration in the right upper lobe. Electronically Signed: Salazar Garcia MD at 13:57 EST , Service support , Physical Exam Narrative Const alert, oriented x3 and no apparent distress General Appearance: cooperative HEENT normocephalic and moist oral mucous membranes Eyes PERRL, EOMs intact bilaterally and conjunctivae normal Neck supple and no JVD Resp normal respiratory effort, no retractions and no use of accessory muscles Auscultation: crackles and diminished lung sounds; Negative for rales, rhonchi or wheezes Cardio regular rate, regular rhythm, S1 normal heart sound, S2 normal heart sound and no murmurs GI soft to palpation, non-tender and non-distended; Negative for hepatosplenomegaly Extremity no clubbing, cyanosis or edema Skin no rashes or lesions noted Neuro no focal motor deficits and no sensory deficits noted Psych affect normal Appearance: appropriate Assessment & Plan Assessment/Plan (1) Pneumonia: QUALIFIERS: Laterality: right Lung location: unspecified part of lung Pneumonia type: due to unspecified organism Qualified Code(s): J18.9 - Pneumonia, unspecified organism PLAN: 1. Acute on chronic hypoxic respiratory failure secondary to right-sided pseudomonal pneumonia/DORY/chronic asthma ? Appreciate pulmonology's assistance ? Continue with oral steroids and inhalers ? She is status post bronchoscopy ? Continue with [facility] pulmonology would like her Pseudomonas to be double c overed therefore discharge planning will include IV cefepime as well as p.o. Levaquin ? Home O2 requirement is 2 L she is currently on 3 ? PT/OT evaluation for discharge planning ? Cytology is pending from her bronchial brushing 2. HTN/HLD/morbid obesity ? Blood pressure is stable ? Continue with her home blood pressure medications ? Continue with her statin ? Discuss weight loss and lifestyle modifications 3. DM2 ? We will continue with her home insulin and hold any oral hypoglycemic medica tions ? Sliding scale insulin and Accu-Cheks AC at bedtime ? We will adjust as necessary 4. Depression/anxiety ? Stable ? Continue with Paxil DVT: SCDs Charges/Coding Visit Charges Inpatient E&M: 04745 Subs Hosp L2
[2021-06-25] MEDS: Nadolol 40 MG Tablet PO (09:11)
[2021-06-25] MEDS: Pantoprazole Sodium 40 MG Tablet PO ×2 (09:11→21:39)
[2021-06-25] MEDS: predniSONE 10 MG Tablet 30 MG PO (09:11)
[2021-06-25] MEDS: Iron Polysaccharide Complex 150 MG CAPSULE PO ×2 (09:11→21:38)
[2021-06-25] MEDS: Montelukast 10 MG Tablet PO (09:11)
[2021-06-25] MEDS: Potassium Chloride Oral Tablet 10 MEQ PO (09:11)
[2021-06-25] MEDS: Paroxetine 20 MG Tablet 40 MG PO (09:11)
[2021-06-25] MEDS: Nystatin Powder 15gm Bottle 1 APPLIC TOPICAL ×2 (09:12→21:39)
[2021-06-25] MEDS: levoFLOXacin IV 750 MG/150 ML BAG 100 MG IV (09:17)
[2021-06-25] MEDS: Insulin Lispro 100 UNIT/ML INSULN.PEN 20 UNIT SC ×3 (09:38→17:39)
[2021-06-25 11:21] LABS: Bedside Glucose 223 mg/dL (70-110)
[2021-06-25] MEDS: Insulin Lispro 100 UNIT/ML INSULN.PEN SC ×3 (12:36→21:38)
--- NOTE | 2021-06-25 16:08 | CASEMGMT ---
Social Work ROMI spoke with pt dgt Santa several times throughout day. Initially Santa stating that she wants pt to go to [facility]CU. SW explained that TCU does not have a bed and is unable to accept pt insurance. That a new facility must be chosen. ROMI and Santa reviewed list of in network facilities. Santa requesting 5 star facility that has private rooms due to pt cancer diagnosis. The following facilities were called and do NOT have bed availability or private rooms or adequate staff to accept pt. [facility] VM's left with the following to check on bed availability[facility] [place] [facility] ROMI spoke with [facility] and they have beds but there are referrals in front of this pt. Referral faxed for review. [facility] able to reach admissions late in the day. A bed is available on Wednesday. Referral faxed. Pt dgt updated. SW to continue to follow for d/c planning. MICHAEL Lance
[2021-06-25 17:51] LABS: Bedside Glucose 280 mg/dL (70-110)
[2021-06-25] MEDS: 0.9% Saline Lock 10 ML Syringe IV (21:09)
[2021-06-25] MEDS: Loratadine 10 MG Tablet PO (21:38)
[2021-06-25] MEDS: Pramipexole Di-HCl 0.5 MG Tablet PO (21:39)
[2021-06-25] MEDS: carBAMazepine 200 MG Tablet PO (21:39)
[2021-06-25] MEDS: Atorvastatin Calcium 40 MG Tablet PO (21:39)
[2021-06-25 22:15] LABS: Bedside Glucose 217 mg/dL (70-110)
[2021-06-26] VITALS (10 sets, daily range): BP systolic 116–137; BP diastolic 57–67; PULSE 71–78; RESP 12–23; TEMP 36.4–36.9; O2SAT 92–97
[2021-06-26] MEDS: Piperacil/Tazobactam 3.375 GM/50 ML ML IV ×3 (05:31→21:47)
[2021-06-26] MEDS: Budesonide Respules 0.5 MG/2 ML AMPUL.NEB. INHALATION ×2 (07:27→19:38)
[2021-06-26] MEDS: Insulin Lispro 100 UNIT/ML INSULN.PEN 20 UNIT SC ×3 (08:44→17:12)
[2021-06-26 08:46] LABS: Bedside Glucose 118 mg/dL (70-110)
[2021-06-26] MEDS: Montelukast 10 MG Tablet PO (08:46)
[2021-06-26] MEDS: Nadolol 40 MG Tablet PO (08:46)
[2021-06-26] MEDS: predniSONE 10 MG Tablet 30 MG PO (08:46)
[2021-06-26] MEDS: Nystatin Powder 15gm Bottle 1 APPLIC TOPICAL ×2 (08:46→21:30)
[2021-06-26] MEDS: Pantoprazole Sodium 40 MG Tablet PO ×2 (08:47→21:25)
[2021-06-26] MEDS: Potassium Chloride Oral Tablet 10 MEQ PO (08:47)
[2021-06-26] MEDS: Paroxetine 20 MG Tablet 40 MG PO (08:47)
[2021-06-26] MEDS: Iron Polysaccharide Complex 150 MG CAPSULE PO ×2 (08:47→21:25)
--- NOTE | 2021-06-26 10:29 | NURSING ---
TEXT SENT TO DR MCGINNIS, DR IRAHETA CALLED AND WOULD LIKE HIM TO CALL HIM AT [phone]
--- NOTE | 2021-06-26 10:38 | PCM.PN.HOSP ---
Subjective Subjective Doing well, breathing a little bit better today. We will obtain an ambulatory pulse ox just to see if we were out with her oxygen requirements. Objective Data Objective Data Vital Signs: Vital Signs Temp Pulse Resp BP Pulse Ox 97.8 F 78 18 137/67 H 95 06/26/21 04:00 06/26/21 07:25 06/26/21 07:25 06/26/21 04:00 06/26/21 07:25 Oxygen Flow Rate (L/min) [ 3 AMBULATING with Oxygen #2] Oxygen Flow Rate (L/min) [ 2 AMBULATING with Oxygen #1] Oxygen Flow Rate (L/min) [At 2 REST with Oxygen] Oxygen Flow Rate (L/min) [At 0 REST on Room Air] Oxygen Flow Rate (L/min) 3 Oxygen Delivery Method Nasal Cannula Weight: 288 lb 5.834 oz Body Mass Index (BMI) 50.2 Intake & Output: Intake and Output for Last 24 Hours 06/25/21 06/26/21 06/27/21 03:59 03:59 03:59 Intake Total 1230 / 1230 1850 / 1850 0 / 0 Output Total 1030 / 1030 1500 / 1500 400 / 400 Balance 200 / 200 350 / 350 -400 / -400 Lab / Micro Data Result Diagrams: 06/25/21 02:27 06/25/21 02:27 Labs: Laboratory Results - last 24 hr 06/25/21 11:17: POC Glucose 223 H 06/25/21 17:38: POC Glucose 280 H 06/25/21 21:14: POC Glucose 217 H 06/26/21 07:53: POC Glucose 118 H Micro: Microbiology 06/20/21 14:52 [place] Gram Stain - Final 06/20/21 14:52 [place] Bronchial [place] Culture - Final Pseudomonas aeroginosa 06/20/21 14:52 [place] Anaerobic Culture - Final No anaerobic bacteria isolated. 06/18/21 18:45 Blood Culture (Wb) - Right Hand Blood Culture - Final No growth in 5 days. 06/18/21 17:50 Blood Culture (Wb) - Anticubital Left Blood Culture - Final No growth in 5 days. 06/20/21 14:54 Bronchial Lavage - Left Upper Lobe Gram Stain - Final 06/20/21 14:54 Bronchial Lavage - Left Upper Lobe Respiratory Culture - Final Pseudomonas aeroginosa 06/19/21 03:30 Sputum, Expectorated/Coughed Gram Stain - Final 06/19/21 03:30 Sputum, Expectorated/Coughed Respiratory Culture - Final Pseudomonas aeroginosa#2 Pseudomonas aeroginosa 06/19/21 03:30 Urine, Random Legionella Antigen - Final 06/19/21 03:30 Urine, Random Streptococcus pneumoniae Antigen (M - Final 06/18/21 17:51 Nasal Secretion SARS-CoV-2 Antigen (Rapid) - Final Physical Exam Narrative Const alert, oriented x3 and no apparent distress General Appearance: cooperative HEENT normocephalic and moist oral mucous membranes Eyes PERRL, EOMs intact bilaterally and conjunctivae normal Neck supple and no JVD Resp normal respiratory effort, no retractions and no use of accessory muscles Auscultation: Diminished lung sounds; Negative for crackles, rales, rhonchi or wheezes Cardio regular rate, regular rhythm, S1 normal heart sound, S2 normal heart sound and no murmurs GI soft to palpation, non-tender and non-distended; Negative for hepatosplenomegaly Extremity no clubbing, cyanosis or edema Skin no rashes or lesions noted Neuro no focal motor deficits and no sensory deficits noted Psych affect normal Appearance: appropriate Assessment & Plan Assessment/Plan (1) Pneumonia: QUALIFIERS: Pneumonia type: due to unspecified organism Laterality: right Lung location: unspecified part of lung Qualified Code(s): J18.9 - Pneumonia, unspecified organism PLAN: 1. Acute on chronic hypoxic respiratory failure secondary to right-sided pseudomonal pneumonia/DORY/chronic asthma ? Appreciate pulmonology's assistance ? Continue with oral steroids and inhalers ? She is status post bronchoscopy ? Continue with [facility] pulmonology would like her Pseudomonas to be double covered therefore discharge planning will include IV cefepime as well as p.o. Levaquin ? Home O2 requirement is 2 L she is currently on 3 ? PT/OT evaluation for discharge planning ? Cytology is pending from her bronchial brushing 2. HTN/HLD/morbid obesity ? Blood pressure is stable ? Continue with her home blood pressure medications ? Continue with her statin ? Discuss weight loss and lifestyle modifications 3. DM2 ? We will continue with her home insulin and hold any oral hypoglycemic medications ? Sliding scale insulin and Accu-Cheks AC at bedtime ? We will adjust as necessary 4. Depression/anxiety ? Stable ? Continue with Paxil DVT: SCDs Charges/Coding Visit Charges Inpatient E&M: 30287 Subs Hosp L2
--- NOTE | 2021-06-26 11:50 | CASEMGMT ---
Addendum entered by Brianna Cortez 06/26/21 12:07: SW attempted to meet with pt to update on process. Pt with therapy at this time. SW placed call to pt dgt and left VM requesting return call to continue to work on placement. MICHAEL Alanis Original Note: Social Work Phone call placed to [facility] and they are still reviewing case and have not made determination on acceptance. ROMI requested return call TAYLOR. Phone call to [facility] who now states they discovered they will not have a bed until next Wednesday. Phone call to Yen at [facility] who states they do have beds and they are private rooms. Facility is a 4 star. Referral faxed to [facility]. ROMI will await determination. MICHAEL Alanis
[2021-06-26 12:06] LABS: Bedside Glucose 147 mg/dL (70-110)
--- NOTE | 2021-06-26 14:43 | CASEMGMT ---
Social Work Received phone call from [facility] who reports they made a mistake and now they do not have any beds available. Phone call to [facility] and they are still reviewing case and have not made a determination. Phone call to [facility] and they have rooms available but only semi private rooms. Return call from pt dgt Snata and informed that no facility has accepted pt at this time. ROMI reviewed [facility] list with Santa. All but two in network facilities have been contacted and they cannot take pt. Santa is not in favor of the two facilities not contacted due to their star rating. [facility] list reviewed and all but one facility contacted and cannot take pt. Santa not in favor of [facility] due to star rating. ROMI reviewed [facility] SNF list with Santa. The following facilities have been contacted and cannot accept: [facility], [facility], [facility], [facility], [facility]. Santa refuses [facility] and [facility]. Two remaining [facility] in network SNFs: Phone call to [facility] and they have private rooms available. Phone call [facility] and they have beds but they would only be private for a few days and then semi private. [facility] list reviewed and Santa would like referral faxed to [facility]. ROMI called Leanna at [facility] and she is uncertain if there is a private room, she requests referral be sent and she will look into private room availability. CIRILO left for Santa updating about [facility], [facility] and [facility] and stating facilties further from home in [place] and [place] can be explored to meet pt needs. ROMI will await return call. MICHAEL Alanis
[2021-06-26] MEDS: 0.9% Saline Lock 10 ML Syringe IV (15:07)
--- NOTE | 2021-06-26 15:10 | ST.MBS ---
Modified Barium Swallow - Patient Information Study Date: 06/26/21 Study Time: 14:00 Direct Billable Minutes: 95 Total Minutes procedure & reportin Diagnosis: Pneumonia (J18.9) Referring Physician: Isreal Childress Reason for Referral: Objectively assess swallow function and rule out risk for silent aspiration. Medical History: The patient is a 75 y/o F w/ PMHx: Chronic hypoxic respiratory failure (2L NC), HTN, HLD, Anxiety and Depression/ADD, GERD, Celiac disease, Hx R sided breast CA, Hx NSC R lung CA, DORY on CPAP q HS, Morbid obesity, Asthma w/ allergic rhinitis who [facility] with worsening dyspnea, fatigue, and weakness. CTPA no demonstrated PE or arterial dissection, consolidation, groundglass opacity and bronchiectasis throughout the right lung likely software support representative chronic changes with superimposed pneumonia, malignancy is unable to be excluded, enlarged right mediastinal and hilar lymph nodes are nonspecific. Pt referred for speech consult due to concerns for aspiration pneumonia. Pt placed on Regular textures with bite size meats and extra sauce / thin liquids with distant supervision. During dysphagia treatment, pt was noted to have SpO2 desaturate to mid 80s on two occasions with consumption of thin liquids and meds with liquid wash. [employer] referred pt for MBS study to rule out concern for silent aspiration. Full PMH below. Medical History (Updated 06/18/21 @ 20:[address] Mindy Painter MD) Acute and chronic respiratory failure with hypoxia Acute bronchitis due to Rhinovirus Acute severe exacerbation of asthma Allergic rhinitis Anemia Anxiety Asthma Asthmatic bronchitis Body mass index (BMI) 50-59.9, adult Breast cancer Chronic diarrhea Chronic respiratory failure with hypoxia Dependence on supplemental oxygen Depression Diabetes mellitus, type II Former tobacco use GERD (gastroesophageal reflux disease) History of primary non-small cell carcinoma of right lung History of right breast cancer Hypertension Immunosuppressed due to chemotherapy Migraine headache Migraines Obstructive sleep apnea Osteoarthritis Sleep apnea Vitamin D deficiency Current Diet Ordered: Regular with bite size meats / Thin liquids Dentition: WNL Mental Status: WNL Respiratory Status: Oxygenating on 3L/M nasal cannula - Penetration-Aspiration Scale Penetration-Aspiration Scale: OBJECTIVE ASSESSMENT OF SWALLOW FUNCTION (QUANTITATIVE ? PER TRIAL): PENETRATION / ASPIRATION SCALE (GRIFFIN): 1 = does not enter airway 2 = enters airway/above vocal folds/ejected 3 = enters airway/above vocal folds/not ejected 4 = enters airway/contacts vocal folds/ejected 5 = enters airway/contacts vocal folds/not ejected 6 = enters airway/below vocal folds/ejected 7 = enters airway/below vocal folds/not ejected despite effort 8 = enters airway/below vocal folds/no effort - Penetration-Aspiration Scale Score Thin Liquid via teaspoon Result: 1= does not enter airway Thin Liquid via teaspoon Trial 2 Result: 2= enter airway/above vocal folds/ejected Thin Liquid via small single sip from cup Result: 1= does not enter airway Thin Liquid via small single sip from cup Trial 2 Result: 1= does not enter airway Thin Liquid via sequential sips from cup Result: 2= enter airway/above vocal folds/ejected Barium Tablet via small single sip from cup Result: 2= enter airway/above vocal folds/ejected [place] Thick Liquid via small single sip from cup Result: 1= does not enter airway [place] Thick Liquid via small single sip from cup Result: 1= does not enter airway Pudding via teaspoon Result: 1= does not enter airway Thin Liquid via single sip from straw Result: 1= does not enter airway Thin Liquid via sequential sips from straw Result: 2= enter airway/above vocal folds/ejected Thin Liquid via teaspoon Trial 3 Result: 1= does not enter airway Pudding with Esophageal Screen Result: 1= does not enter airway - Oral Phase Labial Seal: No Labial Escape Tongue Control During Bolus Hold: Posterior escape of less than half of bolus Bolus Preparation/Mastication: Timely and efficient chewing and mashing Bolus Transport/Lingual Motion: Delayed initiation of tongue motion Oral Residue: Residue collection on oral structures - Pharyngeal Phase Initiation of Pharyngeal Swallow: Bolus head in pyriforms Soft Palate Elevation: Trace column of contrast/air between soft palate and pharyngeal wall Laryngeal Elevation: Partial superior movement thyroid cart/partial apprx aryt-epig petiole Anterior Hyoid Excursion: Partial anterior movement Epiglottic Movement: Complete inversion Laryngeal Vestibule Closure at Height of Swallow: Incomplete; narrow column of air/contrast in laryngeal vestibule Pharyngeal Stripping Wave: Present - complete Pharyngoesophageal Segment Opening: Complete distension and complete duration; no obstruction of flow Tongue Base Retraction: Trace column of contrast between tongue base & post. pharyngeal wall Pharyngeal Residue: Trace residue within or on pharyngeal structures - Esophageal Phase Esophageal Clearance: Esophageal retention w/ retrograde flow below pharyngoesophageal seg. - Significant retrograde flow of pudding trial to mid esophagus. - Treatment Strategies Effects of treatment strategies attemped:: Decreased bolus rate = Effective. Use of straw = Not effective. - Diagnosis/Impression Diagnosis: Mild oropharyngeal phase dysphagia (R13.12) Impression: The oral phase of the swallow is marked by decreased bolus control primarily noted with sips via straw and sequential sips spilling posteriorly to the pyriforms resulting in suboptimal bolus placement for swallow onset. The pharyngeal phase is marked by mildly deficits in laryngeal vestibular closure likely due to decreased laryngeal elevation and mildly decreased anterior hyoid excursion. The patient demonstrated trace penetration of thin liquids via sequential cup, thin liquids via sequential straw, and liquid wash for barium tablet. The penetration did fully eject from the airway. The esophageal phase is marked by significant retrograde flow of pudding trial to the mid esophagus. No aspiration observed in the study; however, cannot rule out risk for reflux aspiration with meals. The patient had belching following completion of the study. - Recommendations Diet: Regular Textures - Bite Size Meats with Extra Sauce, Thin Liquids Comment: Medications one at a time with liquid wash. Compensatory Strategies: No Straws, Slow Rate - Sips one at a time, Sitting upright, Remain sitting upright for 30 minutes after PO intake Supervision: Distant Supervision Recommend Repeat Modified Barium Swallow: No Need for Skilled Speech Therapy Services: Yes Comment: Will recommend the patient for continued dysphagia therapy to address mild deficits in oropharyngeal swallow function. Would consider the patient for oropharyngeal exercise program to improve swallow onset, laryngeal elevation, and hyoid excursion. The patient would benefit from thorough education regarding diet recommendations and recommended compensatory strategies. Recommended Referrals: GI Consult - Would consider GI consult for further management of reflux as pt demonstrated significant reflux on limited trials of contrast and is currently on medication to treat reflux. Cannot rule out risk for reflux aspiration. Education Completed: 1. Described result of evaluation., 2. Pt understands evaluation & agrees with goals and treatment plan., 7. Pt requires further education on strategies & risks. Comment: Educated pt and RN verbally and via written handout of above mentioned aspiration and reflux precautions. - Status Active ST Patient: Active - Contact Information [facility] Speech Therapy:: Jasmyne Nina M.A. [facility] Speech-Language Pathologist [facility] [address] [place] [address] [email or web address] [phone] 06/26/21 15:30
--- NOTE | 2021-06-26 17:08 | CASEMGMT ---
Social Work Return call from [facility]. They are considering accepting pt but will need to check with the therapy department prior to making final determination. No return call from [facility] at this time. ROMI spoke with dgt regarding [facility] and [facility]. Santa is agreeable to either of these facilities. ROMI will follow up with both facilities in the morning. Both facilities are aware pt is ready for discharge. MICHAEL Alanis
[2021-06-26] MEDS: Insulin Lispro 100 UNIT/ML INSULN.PEN SC ×2 (17:12→21:28)
[2021-06-26 20:01] LABS: Bedside Glucose 284 mg/dL (70-110)
[2021-06-26] MEDS: carBAMazepine 200 MG Tablet PO (21:26)
[2021-06-26] MEDS: Atorvastatin Calcium 40 MG Tablet PO (21:26)
[2021-06-26] MEDS: Loratadine 10 MG Tablet PO (21:27)
[2021-06-26] MEDS: Pramipexole Di-HCl 0.5 MG Tablet PO (21:30)
[2021-06-26 21:45] LABS: Bedside Glucose 311 mg/dL (70-110)
[2021-06-27 03:12] VITALS: PULSE 75; RESP 12; RESP 22; O2SAT 94
[2021-06-27 03:43] VITALS: BP 130/86; PULSE 71; RESP 18; TEMP 35.8; O2SAT 96
[2021-06-27 04:26] LABS: Absolute Lymphocyte Count 0.68 X10^3/uL (0.83-4.51); Absolute Neutrophil Count 7.2 X10^3/uL (2.0-7.7); Basophil# 0.03 X10^3/uL; Basophil% 0.3 % (0-1); Eosinophils% 1.1 % (0-5); Hematocrit 31.3 % (37-47); Hemoglobin 9.6 g/dL (12.0-15.0); Lymphocyte # 0.68 X10^3/ul (0.83-4.51); Lymphocyte % 7.7 % (19-41); Mean Corp Hgb Conc 30.7 g/dL (32-36); Mean Corpuscular Hgb 26.5 pg (27.0-32.0); Mean Corpuscular Volume 86.5 fL (81-99); Mean Platelet Vol. 9.2 fl (6.2-12.0); Monocyte# 0.56 X10^3/uL; Monocyte% 6.4 % (0-10); NRBC Flagged by Analyzer 0 % (0-5); Neutrophil # 7.23 X10^3/uL (2.7-7.7); Neutrophil % 82.3 % (47-70); Platelet Count 248 K/mm3 (150-450); RBC Distribution Width CV 16.1 % (11.6-14.6); RBC Distribution Width SD 50.6 fl (35.1-43.9); Red Blood Count 3.62 M/mm3 (4.2-5.4); White Blood Count 8.8 K/mm3 (4.4-11.0)
[2021-06-27 04:58] LABS: Anion Gap 4 (5-15); BUN 23 mg/dL (7-18); BUN/Creat Ratio 31.8 RATIO (10-20); Calcium,Total 9.3 mg/dL (8.5-10.1); Chloride 100 mmol/L (98-107); Creatinine, Serum 0.72 mg/dL (0.55-1.02); EST Glomerular Filtration Rate 83 mL/min (>60); Est Glom Filt Rate - Afr Amer 101 mL/min (>60); Estimated Creatinine Clearance 39.04 ml/min; Glucose 165 mg/dL (74-106); Potassium 3.6 mmol/L (3.5-5.1); Sodium Level 138 mmol/L (136-145)
[2021-06-27] MEDS: Piperacil/Tazobactam 3.375 GM/50 ML ML IV ×2 (05:05→14:48)
[2021-06-27 07:28] VITALS: PULSE 80; RESP 18; O2SAT 97
[2021-06-27] MEDS: Budesonide Respules 0.5 MG/2 ML AMPUL.NEB. INHALATION (07:28)
[2021-06-27 08:50] VITALS: BP 121/46; PULSE 75; RESP 18; TEMP 36.4; O2SAT 98
[2021-06-27] MEDS: Nystatin Powder 15gm Bottle 1 APPLIC TOPICAL (08:56)
[2021-06-27] MEDS: Nadolol 40 MG Tablet PO (08:57)
[2021-06-27] MEDS: Montelukast 10 MG Tablet PO (08:57)
[2021-06-27] MEDS: Pantoprazole Sodium 40 MG Tablet PO (08:57)
[2021-06-27] MEDS: Iron Polysaccharide Complex 150 MG CAPSULE PO (08:57)
[2021-06-27] MEDS: Potassium Chloride Oral Tablet 10 MEQ PO (08:57)
[2021-06-27] MEDS: Insulin Lispro 100 UNIT/ML INSULN.PEN SC ×2 (08:58→12:44)
[2021-06-27] MEDS: Paroxetine 20 MG Tablet 40 MG PO (08:58)
[2021-06-27] MEDS: Insulin Lispro 100 UNIT/ML INSULN.PEN 20 UNIT SC ×2 (08:58→12:44)
[2021-06-27 09:37] LABS: Bedside Glucose 230 mg/dL (70-110)
[2021-06-27 10:15] VITALS: O2SAT 91
[2021-06-27] MEDS: levoFLOXacin IV 750 MG/150 ML BAG 100 MG IV (10:35)
--- NOTE | 2021-06-27 10:47 | CASEMGMT ---
Social Work SW received call from Gudelia of [facility] and they are able to accept pt tomorrow. ROMI inquired if they could please accept pt today as pt is medically ready. Gudelia states they are only accepting 2 new admissions a day due to staffing and are actually taking 3 admissions today so cannot accept pt today but can accept on Wednesday. ROMI requested if one of the Wednesday admissions cancelled this pt be accepted today. Gudelia agreeable. SW received phone call from Leanna at [facility]. They are able to accept pt on Wednesday as that is when they will have a private room available. CIRILO left with pt dgt Santa and updated on above and informed Santa that we cannot wait until Wednesday with [facility] as we have an accepting facility sooner that is a 5 star with a private style room available on Wednesday. ROMI will await return call from pt dgt to confirm. MICHAEL Alanis
[2021-06-27 11:41] LABS: Bedside Glucose 184 mg/dL (70-110)
--- NOTE | 2021-06-27 12:50 | RAD_ITS ---
STUDY: X-RAY CHEST REASON FOR EXAM: Female, 75 years old. Pneumonia TECHNIQUE: Single AP portable view of the chest. COMPARISON: Comparison is made with prior study dated 06/24/2021. FINDINGS: Surgical clips are seen overlying the right thorax. Stable opacification and volume loss in the right upper lobe. Findings suggestive of a right hilar and suprahilar mass. Stable scarring at the right lung base. There is no demonstrated pleural abnormality. Normal size heart. Normal visualized pulmonary arteries. There is atherosclerotic calcification of the aortic arch with tortuosity. Normal visualized thoracic spine. Right calcific tendinitis. There is no demonstrated abnormality of the visualized soft tissue structures of the upper abdomen. RAD/Chest 1 View (Portable) IMPRESSION: Stable examination with a volume loss and opacification of the right upper lobe with prominence of the right hilum. Electronically Signed: Salazar Garcia MD at 13:04 EST , Service support ,
[2021-06-27 14:50] VITALS: BP 113/55; PULSE 76; RESP 16; TEMP 36.6; O2SAT 97
--- NOTE | 2021-06-27 15:22 | PCM.PN.HOSP ---
Subjective Subjective Doing well, though she does feel weak. We will continue with her IV antibiotics. Chest x-ray continues to show right upper lobe opacification and infiltrate Objective Data Objective Data Vital Signs: Vital Signs Temp Pulse Resp BP Pulse Ox 97.5 F L 75 18 121/46 H 91 06/27/21 08:50 06/27/21 08:50 06/27/21 08:50 06/27/21 08:50 06/27/21 10:15 Oxygen Flow Rate (L/min) [ 3 AMBULATING with Oxygen #2] Oxygen Flow Rate (L/min) [ 2 AMBULATING with Oxygen #1] Oxygen Flow Rate (L/min) [At 2 REST with Oxygen] Oxygen Flow Rate (L/min) [At 0 REST on Room Air] Oxygen Flow Rate (L/min) 2 Oxygen Delivery Method Nasal Cannula Weight: 286 lb 9.615 oz Body Mass Index (BMI) 50.2 Intake & Output: Intake and Output for Last 24 Hours 06/26/21 06/27/21 06/28/21 03:59 03:59 03:59 Intake Total 1850 / 1850 550 / 550 440 / 440 Output Total 1500 / 1500 725 / 725 300 / 300 Balance 350 / 350 -175 / -175 140 / 140 Lab / Micro Data Result Diagrams: 06/27/21 03:43 06/27/21 03:43 Labs: Laboratory Results - last 24 hr 06/26/21 17:10: POC Glucose 284 H 06/26/21 21:18: POC Glucose 311 H 06/27/21 03:43: WBC 8.8, RBC 3.62 L, Hgb 9.6 L, Hct 31.3 L, MCV 86.5, MCH 26.5 L, MCHC 30.7 L, RDW Std Deviation 50.6 H, RDW Coeff of Aniceto 16.1 H, Plt Count 248, MPV 9.2, Immature Gran % (Auto) 2.200 H, Neut % (Auto) 82.3 H, Lymph % (Auto) 7.7 L, [place] % (Auto) 6.4, Eos % (Auto) 1.1, Baso % (Auto) 0.3, Absolute Neuts (auto) 7.2, Absolute Lymphs (auto) 0.68 L, Nucleated RBC % 0 06/27/21 03:43: Sodium 138, Potassium 3.6, Chloride 100, Carbon Dioxide 34.0 H, Anion Gap 4 L, BUN 23 H, Creatinine 0.72, Estim Creat Clear Calc 39.04, Est GFR (MDRD) Af Amer 101, Est GFR (MDRD) Non-Af 83, BUN/Creatinine Ratio 31.8 H, Glucose 165 H, Calcium 9.3 06/27/21 08:50: POC Glucose 230 H 06/27/21 11:29: POC Glucose 184 H Micro: Microbiology 06/20/21 14:52 [place] Gram Stain - Final 06/20/21 14:52 [place] Bronchial [place] Culture - Final Pseudomonas aeroginosa 06/20/21 14:52 [place] Anaerobic Culture - Final No anaerobic bacteria isolated. 06/18/21 18:45 Blood Culture (Wb) - Right Hand Blood Culture - Final No growth in 5 days. 06/18/21 17:50 Blood Culture (Wb) - Anticubital Left Blood Culture - Final No growth in 5 days. 06/20/21 14:54 Bronchial Lavage - Left Upper Lobe Gram Stain - Final 06/20/21 14:54 Bronchial Lavage - Left Upper Lobe Respiratory Culture - Final Pseudomonas aeroginosa 06/19/21 03:30 Sputum, Expectorated/Coughed Gram Stain - Final 06/19/21 03:30 Sputum, Expectorated/Coughed Respiratory Culture - Final Pseudomonas aeroginosa#2 Pseudomonas aeroginosa 06/19/21 03:30 Urine, Random Legionella Antigen - Final 06/19/21 03:30 Urine, Random Streptococcus pneumoniae Antigen (M - Final 06/18/21 17:51 Nasal Secretion SARS-CoV-2 Antigen (Rapid) - Final Radiography Diagnostic Testing: Radiology Impression Chest X-Ray 06/27/21 12:50 IMPRESSION: Stable examination with a volume loss and opacification of the right upper lobe with prominence of the right hilum. Electronically Signed: Salazar Garcia MD at 13:04 EST , Service support , Physical Exam Narrative Const alert, oriented x3 and no apparent distress General Appearance: cooperative HEENT normocephalic and moist oral mucous membranes Eyes PERRL, EOMs intact bilaterally and conjunctivae normal Neck supple and no JVD Resp normal respiratory effort, no retractions and no use of accessory muscles Auscultation: Diminished lung sounds; Negative for crackles, rales, rhonchi or wheezes Cardio regular rate, regular rhythm, S1 normal heart sound, S2 normal heart sound and no murmurs GI soft to palpation, non-tender and non-distended; Negative for hepatosplenomegaly Extremity no clubbing, cyanosis or edema Skin no rashes or lesions noted Neuro no focal motor deficits and no sensory deficits noted Psych affect normal Appearance: appropriate Assessment & Plan Assessment/Plan (1) Pneumonia: QUALIFIERS: Pneumonia type: due to unspecified organism Laterality: right Lung location: unspecified part of lung Qualified Code(s): J18.9 - Pneumonia, unspecified organism PLAN: 1. Acute on chronic hypoxic respiratory failure secondary to right-sided pseudomonal pneumonia/DORY/chronic asthma ? Appreciate pulmonology's assistance ? Continue with oral steroids and inhalers ? She is status post bronchoscopy ? Continue with [facility] pulmonology would like her Pseudomonas to be double covered therefore discharge planning will include IV cefepime as well as p.o. Levaquin ? Home O2 requirement is 2 L she is currently on 3 ? PT/OT evaluation for discharge planning ? Cytology is pending from her bronchial brushing 2. HTN/HLD/morbid obesity ? Blood pressure is stable ? Continue with her home blood pressure medications ? Continue with her statin ? Discuss weight loss and lifestyle modifications 3. DM2 ? We will continue with her home insulin and hold any oral hypoglycemic medications ? Sliding scale insulin and Accu-Cheks AC at bedtime ? We will adjust as necessary 4. Depression/anxiety ? Stable ? Continue with Paxil DVT: SCDs Charges/Coding Visit Charges Inpatient E&M: 43354 Subs Hosp L2
--- NOTE | 2021-06-27 15:58 | CASEMGMT ---
Social Work SW received call from [facility] and they have a cancellation for today and can take pt today. Physician updated and feels pt is ready for d/c. Phone call to pt dgt Santa and updated that [facility] can accept pt today. [place] Medicare coverage explained. Santa is agreeable to discharge to [facility] today. ROMI met with pt and discussed discharge and she is agreeable. Plan: [facility], skilled level of care under convalescent stay. MICHAEL Alanis
--- NOTE | 2021-06-27 15:59 | TREXTCAR_ITS ---
Diet 06/20/21 15:40 Diet: Consistent Carb - Calorie Controlled Food consistency:: Regular Liquid Consistency:: Regular/Thin Dietary Modifications:: Gluten Free Is pt able to select menu?: Yes Diet Comments: MEATS CUT BITE SIZE, EXTRA SAUCE, Distant Supervision How many daily calories?: 1800 calorie Routine Orders/Code Status Routine Lab Work: CBC and BMP Code Status: Full Code Therapies Physical Therapy: Eval and Treat Occupational Therapy: Eval and Treat Speech Therapy: Eval and Treat Problem/Diagnosis (1) Pneumonia: Status: Acute Allergies/Procedures Done in Hospital Allergies adhesive tape Allergy (Verified 06/18/21 17:14) tears skin listed on pcp allergy list cefadroxil [From Duricef] Allergy (Verified 06/18/21 17:14) Unknown gluten Allergy (Verified 06/18/21 17:14) celiac disease Celiac disease mesalamine [From Asacol] Allergy (Verified 06/18/21 17:14) Unknown listed on pcp allergy list omalizumab [From Xolair] Allergy (Verified 06/18/21 17:14) Unknown listed on pcp allergy list Sulfa (Sulfonamide Antibiotics) Allergy (Verified 06/18/21 17:14) swelling as an oxycodone Adverse Reaction (Verified 06/18/21 17:14) Vomiting Procedures: None Type of Care/Length of Stay Estimated LOS: Convalescent Care Less Than 30 days Type of Care Needed: Skilled Rehab Potential: Good Prognosis: Good Additional Orders/Day of Discharge Day of Discharge: 06/27/21 Dietary and Speech Recommendations Dietitian Recommendations/Changes: Will continue consistent CHO, 1800 calorie controlled, gluten free diet- texture/consistency modifications per FLIGHT NURSE. ONS as needed only if PO fails at meals. Discharge Plan Admission Admit Date/Time: 06/18/21 20:17 Attending Provider: Isreal Childress Primary Care Provider: Senait Jay Consulting Providers: Dre Watters V Discharge Orders/Prescriptions Prescriptions: New cefepime 2 gram recon soln 2 g IV DAILY 7 Days Qty: 1 RF: 0 levofloxacin 750 mg tablet 750 mg PO Q48H Qty: 4 RF: 0 Continued pramipexole 0.5 MG tablet 0.5 mg PO QHS RF: 0 cholecalciferol (vitamin D3) 50,000 UNIT capsule 50,000 unit PO SUWE@0800 RF: 0 albuterol sulfate 2.5 MG/3 ML solution for nebulization 2.5 mg INHALATION Q2H PRN PRN (Reason: Dyspnea, wheezing) Qty: 1 RF: 0 albuterol sulfate [ProAir HFA] 1 PUFF inhaler 2 puff inhalation Q6H PRN PRN (Reason: Dyspnea/Wheezing/Sob) RF: 0 budesonide [Rhinocort Allergy] 8.43 ML spray,non-aerosol 2 puff NARES DAILY RF: 0 carbamazepine 200 MG tablet 200 mg PO QHS RF: 0 methylphenidate HCl 20 MG tablet extended release 20 mg PO BID RF: 0 nadolol 40 MG tablet 40 mg PO DAILY RF: 0 paroxetine HCl [Paxil] 40 MG tablet 40 mg PO DAILY RF: 0 loperamide 2 MG capsule 2 mg PO Q4H PRN PRN (Reason: DIARRHEA) RF: 0 montelukast 10 MG tablet 10 mg PO DAILY RF: 0 levocetirizine 5 MG tablet 5 mg PO QHS RF: 0 nystatin 1 APPLIC bottle 1 applic TOPICAL BID RF: 0 potassium chloride 10 MEQ tablet 10 meq PO BID RF: 0 insulin regular hum U-500 conc 500 UNITS/ML insulin pen 85 units SQ DINNER RF: 0 insulin regular hum U-500 conc 500 UNITS/ML insulin pen 95 units SQ BREAKFAST RF: 0 rosuvastatin 20 mg tablet 20 mg PO QHS RF: 0 polysaccharide iron complex [Ferrex 150] 150 mg iron Capsule 150 mg PO BID RF: 0 lansoprazole 30 mg Capsule,Delayed Release(Dr/Ec) 30 mg PO BID RF: 0 Dulera 200-5 mcg/actuation Hfa Aerosol Inhaler 2 puff INHALATION BID RF: 0 Discontinued prednisone 20 mg tablet 30 mg PO DAILY RF: 0 Referrals / Follow Up: Senait Jay MD [Primary Care Provider] - Dre Watters MD [STAFF PHYSICIAN] - Within 2 Weeks Disposition Disposition (needs filled in before D/C Order can be placed): [facility]
--- NOTE | 2021-06-27 16:09 | DS.PCM_ITS ---
Providers Date of Admission: 06/18/21 Primary Care Physician: Dr. Senait Jay MD Consultations 06/18/21 21:20 Consult: [employer] / Pulmonary Medicine Routine Consulting Provider: Dre Watters V Reason for Consult: Recurrent PNA, some concern possible underlying CA EMERGENT Consult: No MD Notified: Yes Date Notified: 06/18/21 Time Notified: 20:23 Method of Notification: Text Reason For Visit: PNEUMONIA, LACTIC ACIDOSIS Diagnosis Discharge Diagnosis (1) Pneumonia: Status: Acute Code(s): J18.9 - Pneumonia, unspecified organism Qualifiers: Pneumonia type: due to unspecified organism Laterality: right Lung location: unspecified part of lung Qualified Code(s): J18.9 - Pneumonia, unspecified organism Medications at Discharge Home Medications cholecalciferol (vitamin D3) 50,000 unit PO SUWE@0800 06/01/17 pramipexole 0.5 mg PO QHS 06/01/17 albuterol sulfate 2.5 mg INHALATION Q2H PRN PRN #1 box 11/26/17 albuterol sulfate [ProAir HFA] 2 puff INHALATION Q6H PRN PRN 03/25/18 budesonide [Rhinocort Allergy] 2 puff NARES DAILY 06/12/18 carbamazepine 200 mg PO QHS 03/01/19 methylphenidate HCl 20 mg PO BID 03/01/19 nadolol 40 mg PO DAILY 03/01/19 paroxetine HCl [Paxil] 40 mg PO DAILY 03/01/19 loperamide 2 mg PO Q4H PRN PRN cap 10/08/19 insulin regular hum U-500 conc 85 units SQ DINNER 03/22/20 levocetirizine 5 mg PO QHS 03/22/20 montelukast 10 mg PO DAILY 03/22/20 nystatin 1 applic TOPICAL BID 03/22/20 potassium chloride 10 meq PO BID 03/22/20 insulin regular hum U-500 conc 95 units SQ BREAKFAST 08/12/20 rosuvastatin 20 mg PO QHS 12/06/20 Dulera 2 puff INHALATION BID 06/19/21 lansoprazole 30 mg PO BID 06/19/21 polysaccharide iron complex [Ferrex 150] 150 mg PO BID 06/19/21 cefepime 2 g IV DAILY 7 Days #1 ea 06/27/21 levofloxacin 750 mg PO Q48H #4 tab 06/27/21 Hospital Course Operations None Procedures Bronchoscopy Summary of Care Provided Minutes Spent on Discharge: 45 Hospital Course: Per HPI: The patient is a 75 y/o F w/ PMHx: Chronic hypoxic respiratory failure (2L NC), HTN, HLD, Anxiety and Depression/ADD, GERD, Celiac disease, Hx R sided breast CA, Hx NSC R lung CA, DORY on CPAP q HS, Morbid obesity, Asthma w/ allergic rhinitis who presents to the [facility] ED on 06/18/21 with worsening dyspnea above her baseline, fatigue and weakness with no recent fever or chills but not improving prompted ED evaluation. She notes that her has a chronic cough which is unchanged and has had no other symptoms. She notes that her dyspnea has been so severe she has hardly been able to walk in her home. Work- up in the ED included T 98.3, heart rate 109, BP 113/94, respiratory rate 21, 96% on 2 L nasal cannula, CBC with WC 21.9, hemoglobin 9.7, platelet 307 with left shift, ABG with pH 7.57, O2 saturation 95%, PCO2 30, PO2 61, BMP with sodium 134, glucose 185, lactic acid 2.2, troponin high-sensitivity 12, negative rapid COVID antigen, blood culture x2 pending per ED physician, BNP 47, CTPA no demonstrated PE or arterial dissection, consolidation, groundglass opacity and bronchiectasis throughout the right lung likely physician relations representative chronic changes with superimposed pneumonia, malignancy is unable to be excluded, enlarged right mediastinal and hilar lymph nodes are nonspecific. Of note patient did have 04/22/2021 CTA of the chest which again demonstrated focal areas of consolidation in the right upper, right middle and right lower lobes. Hospital Course: 1. Acute on chronic hypoxic respiratory failure secondary to right-sided pseud omonal pneumonia/DORY/chronic asthma ? Appreciate pulmonology's assistance ? Continue with oral steroids and inhalers ? She is status post bronchoscopy ? [facility] would like her Pseudomonas to be double covered therefore discharge planning will include IV cefepime as well as p.o. Levaquin ? Home O2 requirement is 2 L she is currently on 3 ? PT/OT evaluation for discharge planning ? Cytology is pending from her bronchial brushing ? 06/27/2021: She did receive pre-CERT today and is able to go to the jail. I did discuss the situation with the or first assist registered nurse who is okay with her going he did recommend discontinuing her steroids. We will transition her to daily cefepime based on her renal function for another 7 days and she will also need another 4 doses of every 48 hours Levaquin based on her renal function. Of note she does have an allergy to Duricef however it is unknown as to what the reaction is making it unlikely that it is anaphylactic therefore would continue with the cefepime at this time and just monitor closely otherwise we would need to transition her back to 3 times daily Zosyn dosing at the jail. I discussed with her the plan for discharge today and she expressed understanding of the risk and benefits of going to the jail and would like to go today. 2. HTN/HLD/morbid obesity ? Blood pressure is stable ? Continue with her home blood pressure medications ? Continue with her statin ? Discuss weight loss and lifestyle modifications 3. DM2 ? We will continue with her home insulin and hold any oral hypoglycemic medications ? Sliding scale insulin and Accu-Cheks AC at bedtime ? While here in the hospital her blood sugars, would get as high as 311 and as low as 118 on Lantus 35 units twice daily as well as 20 units of Humalog 3 times daily, sliding scale insulin. Would recommend making adjustments accordingly at the jail based on what her home right was of 95 units with breakfast and 85 units with dinner ? We will adjust as necessary 4. Depression/anxiety ? Stable ? Continue with Paxil Weight / BMI Weight Weight: 286 lb 9.615 oz Body Mass Index (BMI) 50.2 ABG / Lab / Microbiology Data Result Diagrams: 06/27/21 03:43 06/27/21 03:43 Laboratory: Laboratory Results - last 24 hr 06/26/21 17:10: POC Glucose 284 H 06/26/21 21:18: POC Glucose 311 H 06/27/21 03:43: WBC 8.8, RBC 3.62 L, Hgb 9.6 L, Hct 31.3 L, MCV 86.5, MCH 26.5 L , MCHC 30.7 L, RDW Std Deviation 50.6 H, RDW Coeff of Aniceto 16.1 H, Plt Count 248, MPV 9.2, Immature Gran % (Auto) 2.200 H, Neut % (Auto) 82.3 H, Lymph % (Auto) 7 .7 L, Hardin % (Auto) 6.4, Eos % (Auto) 1.1, Baso % (Auto) 0.3, Absolute Neuts (auto) 7.2, Absolute Lymphs (auto) 0.68 L, Nucleated RBC % 0 06/27/21 03:43: Sodium 138, Potassium 3.6, Chloride 100, Carbon Dioxide 34.0 H, Anion Gap 4 L, BUN 23 H, Creatinine 0.72, Estim Creat Clear Calc 39.04, Est GFR (MDRD) Af Amer 101, Est GFR (MDRD) Non-Af 83, BUN/Creatinine Ratio 31.8 H, Glucose 165 H, Calcium 9.3 06/27/21 08:50: POC Glucose 230 H 06/27/21 11:29: POC Glucose 184 H Microbiology: Microbiology 06/20/21 14:52 [place] Gram Stain - Final 06/20/21 14:52 [place] Bronchial [place] Culture - Final Pseudomonas aeroginosa 06/20/21 14:52 [place] Anaerobic Culture - Final No anaerobic bacteria isolated. 06/18/21 18:45 Blood Culture (Wb) - Right Hand Blood Culture - Final No growth in 5 days. 06/18/21 17:50 Blood Culture (Wb) - Anticubital Left Blood Culture - Final No growth in 5 days. 06/20/21 14:54 Bronchial Lavage - Left Upper Lobe Gram Stain - Final 06/20/21 14:54 Bronchial Lavage - Left Upper Lobe Respiratory Culture - Final Pseudomonas aeroginosa 06/19/21 03:30 Sputum, Expectorated/Coughed Gram Stain - Final 06/19/21 03:30 Sputum, Expectorated/Coughed Respiratory Culture - Final Pseudomonas aeroginosa#2 Pseudomonas aeroginosa 06/19/21 03:30 Urine, Random Legionella Antigen - Final 06/19/21 03:30 Urine, Random Streptococcus pneumoniae Antigen (M - Final 06/18/21 17:51 Nasal Secretion SARS-CoV-2 Antigen (Rapid) - Final Radiography Diagnostic Testing: Radiology Impression Chest X-Ray 06/27/21 12:50 IMPRESSION: Stable examination with a volume loss and opacification of the right upper lobe with prominence of the right hilum. Electronically Signed: Salazar Garcia MD at 13:04 EST , Service support , Meaningful Use Info Meaningful Use Diagnoses (Choose all that apply): None applicable Discharge Plan Admission Admit Date/Time: 06/18/21 20:17 Attending Provider: Isreal Childress Primary Care Provider: Senait Jay Consulting Providers: Dre Watters V Discharge Orders/Prescriptions Prescriptions: New cefepime 2 gram recon soln 2 g IV DAILY 7 Days Qty: 1 RF: 0 levofloxacin 750 mg tablet 750 mg PO Q48H Qty: 4 RF: 0 Continued pramipexole 0.5 MG tablet 0.5 mg PO QHS RF: 0 cholecalciferol (vitamin D3) 50,000 UNIT capsule 50,000 unit PO SUWE@0800 RF: 0 albuterol sulfate 2.5 MG/3 ML solution for nebulization 2.5 mg INHALATION Q2H PRN PRN (Reason: Dyspnea, wheezing) Qty: 1 RF: 0 albuterol sulfate [ProAir HFA] 1 PUFF inhaler 2 puff inhalation Q6H PRN PRN (Reason: Dyspnea/Wheezing/Sob) RF: 0 budesonide [Rhinocort Allergy] 8.43 ML spray,non-aerosol 2 puff NARES DAILY RF: 0 carbamazepine 200 MG tablet 200 mg PO QHS RF: 0 methylphenidate HCl 20 MG tablet extended release 20 mg PO BID RF: 0 nadolol 40 MG tablet 40 mg PO DAILY RF: 0 paroxetine HCl [Paxil] 40 MG tablet 40 mg PO DAILY RF: 0 loperamide 2 MG capsule 2 mg PO Q4H PRN PRN (Reason: DIARRHEA) RF: 0 montelukast 10 MG tablet 10 mg PO DAILY RF: 0 levocetirizine 5 MG tablet 5 mg PO QHS RF: 0 nystatin 1 APPLIC bottle 1 applic TOPICAL BID RF: 0 potassium chloride 10 MEQ tablet 10 meq PO BID RF: 0 insulin regular hum U-500 conc 500 UNITS/ML insulin pen 85 units SQ DINNER RF: 0 insulin regular hum U-500 conc 500 UNITS/ML insulin pen 95 units SQ BREAKFAST RF: 0 rosuvastatin 20 mg tablet 20 mg PO QHS RF: 0 polysaccharide iron complex [Ferrex 150] 150 mg iron Capsule 150 mg PO BID RF: 0 lansoprazole 30 mg Capsule,Delayed Release(Dr/Ec) 30 mg PO BID RF: 0 Dulera 200-5 mcg/actuation Hfa Aerosol Inhaler 2 puff INHALATION BID RF: 0 Discontinued prednisone 20 mg tablet 30 mg PO DAILY RF: 0 Referrals / Follow Up: Senait Jay MD [Primary Care Provider] - Dre Watters MD [STAFF PHYSICIAN] - Within 2 Weeks Disposition Disposition (needs filled in before D/C Order can be placed): [facility] Charges/Coding Visit Charges Inpatient E&M: 68638 Disch Hosp
--- NOTE | 2021-06-27 17:07 | CASEMGMT ---
Social Work Discharge orders are in for pt today. 7000 convalescent form completed in [facility] system. Transportation arranged for 6:30 pickup by [facility]. Orders faxed to [place] and phone call to [place] with d/c time. Phone call to pt dgt Santa and updated on d/c plan and Santa agreeable. Nursing aware. Plan: [facility], skilled care under convalescent stay MICHAEL Alanis
[2021-06-27 17:20] LABS: Bedside Glucose 96 mg/dL (70-110)
--- NOTE | 2021-06-27 18:23 | NURSING ---
listed POA called in, update regarding discharge given.
--- NOTE | 2021-06-27 18:29 | NURSING ---
report called to Nel at [facility]
--- NOTE | 2021-06-27 18:37 | PCM.PROGNOTE ---
- Physical Exam Vitals/I&O's: Vital Signs Temp Pulse Resp BP Pulse Ox 97.9 F 76 16 113/55 L 97 06/27/21 14:50 06/27/21 14:50 06/27/21 14:50 06/27/21 14:50 06/27/21 14:50 Oxygen Flow Rate (L/min) [ 3 AMBULATING with Oxygen #2] Oxygen Flow Rate (L/min) [ 2 AMBULATING with Oxygen #1] Oxygen Flow Rate (L/min) [At 2 REST with Oxygen] Oxygen Flow Rate (L/min) [At 0 REST on Room Air] Oxygen Flow Rate (L/min) 3 Oxygen Delivery Method Nasal Cannula Weight: 130 kg Body Mass Index (BMI) 50.2 Intake and Output for Last 24 Hours 06/25/21 06/26/21 06/27/21 23:59 23:59 23:59 Intake Total 1750 / 2050 850 / 850 490 / 490 Output Total 1700 / 1900 925 / 925 300 / 300 Balance 50 / 150 -75 / -75 190 / 190 General: Alert, Oriented x3, Cooperative HEENT: Atraumatic, PERRLA, EOMI, Normocephalic Oral: Moist Mucosa Neck: Supple, No JVD, Negative Carotid Bruits Lungs: - - egophony is still present in the right anterior chest, there are some coarse sounds heard posteriorly in the right chest-slight improvement, the patient has coarse rhonchi throughout the mid and upper right chest, no wheezing is present no accessory muscles Cardiovascular: Regular rate, No murmurs Abdomen: Bowel Sounds Present, Soft, Non Tender Extremities: No edema, Capillary Refill Less than 3 Seconds Skin: No rashes, No breakdown, - - some pallor today Musculoskeletal: No Tenderness to Palpation of Joints or Extremities Neurological: Cranial nerves II-XII grossly intact Psych/Mental Status: Normal Affect, Appropriate Microbiology Past 72 Hours 06/27/21 15:45 Nasal Secretion SARS-CoV-2 Antigen (Rapid) - Final 06/20/21 14:52 [place] Gram Stain - Final 06/20/21 14:52 [place] Bronchial [place] Culture - Final Pseudomonas aeroginosa 06/20/21 14:52 [place] Anaerobic Culture - Final No anaerobic bacteria isolated. Laboratory Results 06/26/21 17:10: POC Glucose 284 H 06/26/21 21:18: POC Glucose 311 H 06/27/21 03:43: WBC 8.8, RBC 3.62 L, Hgb 9.6 L, Hct 31.3 L, MCV 86.5, MCH 26.5 L, MCHC 30.7 L, RDW Std Deviation 50.6 H, RDW Coeff of Aniceto 16.1 H, Plt Count 248, MPV 9.2, Immature Gran % (Auto) 2.200 H, Neut % (Auto) 82.3 H, Lymph % (Auto) 7.7 L, [place] % (Auto) 6.4, Eos % (Auto) 1.1, Baso % (Auto) 0.3, Absolute Neuts (auto) 7.2, Absolute Lymphs (auto) 0.68 L, Nucleated RBC % 0 06/27/21 03:43: Sodium 138, Potassium 3.6, Chloride 100, Carbon Dioxide 34.0 H, Anion Gap 4 L, BUN 23 H, Creatinine 0.72, Estim Creat Clear Calc 39.04, Est GFR (MDRD) Af Amer 101, Est GFR (MDRD) Non-Af 83, BUN/Creatinine Ratio 31.8 H, Glucose 165 H, Calcium 9.3 06/27/21 08:50: POC Glucose 230 H 06/27/21 11:29: POC Glucose 184 H 06/27/21 17:10: POC Glucose 96 Current Medications Acetaminophen (Acetaminophen 325 Mg Tablet) 650 mg PO Q4H PRN PRN PRN Reason: Fever, pain 1-1010 Al Hydroxide/Mg Hydroxide (Mag Hydrox/Al Hydrox/Simeth 30 Ml Udc) 30 ml PO Q6H PRN PRN PRN Reason: Gastric Burning Albuterol Sulfate (Albuterol 2.5 Mg/3 Ml Vial.Neb.) 2.5 mg INHALATION Q2H PRN PRN PRN Reason: Dyspnea, wheezing Last Admin: 06/22/21 19:26 Dose: 2.5 mg Documented by: Atorvastatin Calcium (Atorvastatin Calcium 40 Mg Tablet) 40 mg PO QHS STACY Last Admin: 06/26/21 21:26 Dose: 40 mg Documented by: Budesonide (Budesonide Respules 0.5 Mg/2 Ml Ampul.Neb.) 0.5 mg INHALATION BID.RT STACY Last Admin: 06/27/21 07:28 Dose: 0.5 mg Documented by: Carbamazepine (Carbamazepine 200 Mg Tablet) 200 mg PO QHS [facility] Last Admin: 06/26/21 21:26 Dose: 200 mg Documented by: Dextrose (Dextrose 10%-Water 250 Ml Iv.Soln.) 0 ml IV X1 PRN; Protocol PRN Reason: Hypoglycemia Glucagon (Glucagon 1 Mg/Ml Syringe) 1 mg IM .X1 PRN PRN Reason: Hypoglycemia Hydralazine HCl (Hydralazine 20 Mg/Ml Vial) 10 mg IV Q4H PRN PRN PRN Reason: SBP > 160 Sodium Chloride () 250 mls @ 15 mls/hr IV .[id number] PRN PRN Reason: Saline Flush Sodium Chloride () 250 mls @ 15 mls/hr IV .[id number] PRN PRN Reason: Additional IVPB Infusion Last Infusion: 06/20/21 03:02 Dose: Infused Documented by: Piperacillin Sod/Tazobactam Sod (Zosyn) 3.375 gm in 50 mls @ 12.5 mls/hr IV Q8 [facility] Last Admin: 06/27/21 14:48 Dose: 12.5 mls/hr Documented by: Levofloxacin (Levaquin Iv) 750 mg in 150 mls @ 100 mls/hr IV Q48 [facility] Last Infusion: 06/27/21 12:05 Dose: Infused Documented by: Insulin Glargine (Insulin Glargine 100 Units/Ml Pen) 35 units SC BREAKFAST [facility] Last Admin: 06/27/21 08:57 Dose: 35 u Documented by: Insulin Glargine (Insulin Glargine 100 Units/Ml Pen) 35 units SC DINNER [facility] Last Admin: 06/27/21 17:23 Dose: Not Given Documented by: Insulin Human Lispro (Insulin Lispro 100 Unit/Ml Insuln.Pen) 0 unit SC ACHS [facility]; Protocol Last Admin: 06/27/21 17:11 Dose: Not Given Documented by: Insulin Human Lispro (Insulin Lispro 100 Unit/Ml Insuln.Pen) 20 unit SC TIDAC [facility] Last Admin: 06/27/21 17:23 Dose: Not Given Documented by: Loperamide HCl (Loperamide 2 Mg Capsule) 2 mg PO Q4H PRN PRN PRN Reason: DIARRHEA/LOOSE STOOLS Loratadine (Loratadine 10 Mg Tablet) 10 mg PO QHS [facility] Last Admin: 06/26/21 21:27 Dose: 10 mg Documented by: Melatonin (Melatonin 3 Mg Tablet) 3 mg PO QHS PRN PRN PRN Reason: INSOMNIA Montelukast Sodium (Montelukast 10 Mg Tablet) 10 mg PO DAILY [facility] Last Admin: 06/27/21 08:57 Dose: 10 mg Documented by: Nadolol (Nadolol 40 Mg Tablet) 40 mg PO DAILY [facility] Last Admin: 06/27/21 08:57 Dose: 40 mg Documented by: Nystatin (Nystatin Powder 15gm Bottle) 1 applic TOPICAL BID [facility]; Protocol Last Admin: 06/27/21 08:56 Dose: 1 applic Documented by: Ondansetron HCl (Ondansetron 4 Mg/2 Ml Vial) 4 mg IV Q8H PRN PRN PRN Reason: NAUSEA/VOMITING Pantoprazole Sodium (Pantoprazole Sodium 40 Mg Tablet) 40 mg PO BID [facility] Last Admin: 06/27/21 08:57 Dose: 40 mg Documented by: Paroxetine HCl (Paroxetine 20 Mg Tablet) 40 mg PO DAILY [facility] Last Admin: 06/27/21 08:58 Dose: 40 mg Documented by: Polysaccharide Iron Complex (Iron Polysaccharide Complex 150 Mg Capsule) 150 mg PO BID [facility] Last Admin: 06/27/21 08:57 Dose: 150 mg Documented by: Potassium Chloride (Potassium Chloride Oral Tablet 10 Meq) [facility] Last Admin: 06/27/21 08:57 Dose: 10 meq Documented by: Pramipexole Dihydrochloride (Pramipexole Di-Hcl 0.5 Mg Tablet) 0.5 mg PO QHS [facility] Last Admin: 06/26/21 21:30 Dose: 0.5 mg Documented by: Prochlorperazine Edisylate (Prochlorperazine 10 Mg/2 Ml Vial) 5 mg IV Q4H PRN PRN PRN Reason: Breakthrough nausea/vomiting Sodium Chloride (0.9% Saline Lock 10 Ml Syringe) 10 - 40 ml IV UD PRN PRN Reason: SALINE FLUSH Last Admin: 06/26/21 15:07 Dose: 10 ml Documented by: Patient Problems: Active and Suspected Problems (Last Reviewed 06/18/21 @ 21:44 by Carlin Elliott) Lactic acidosis (Acute) Pneumonia (Acute) SOB (shortness of breath) (Acute) Sepsis (Acute) Medical Necessity - Tobacco Use Smoking Status: Former smoker Tobacco Use: Non-smoker Assessment/Plan the patient has Pseudomonas pneumonia, Pseudomonas is sensitive She has significant narrowing of the right upper lobe takeoff such that very little pus was draining from the airway. The airway was patent as the forceps were easily passed. During lavage there was very little drainage and this is uncommon with a florid pneumonia. The pattern is more consistent with a postobstructive pneumonia with only a partial obstruction I recommend a total 14 day course with 2 antibiotics to cover Pseudomonas. The patiently is currently on Zosyn and Levaquin On discharge oral Levaquin is adequate at the same dosing interval Also recommended is a shift from Zosyn to cefepime twice a day, adjust for renal dosing Aerosol treatments use of the pedicle Incentive spirometry Active aggressive pulmonary toilet with walking and moving and getting around With respect to the radiation pneumonitis: At this point I would discontinue oral steroids. Biopsy showed no evidence of a malignancy. Brushings were negative as well at the orifice of the right upper lobe takeoff Inflammation is identified both chronic and acute At this point discontinue oral prednisone which may be aggravating the ability to eliminate the pneumonia PA and lateral chest from the other day is no different than today's portable The right upper lobe is still densely involved with infiltrate. There is no abscess [id number] levels at this point The white blood count has normalized which is encouraging and the patient also feels substantially better Based on the anatomy the resolution of this infiltrate will require a significant component of time, now less than another week of therapy the case is discussed with the attending physician and discharged to a nursing facility is planned for tomorrow June 28 All Active Problems (Last Reviewed 06/18/21 @ 21:44 by Carlin Elliott) Lactic acidosis (Acute) Pneumonia (Acute) SOB (shortness of breath) (Acute) Sepsis (Acute) Cellulitis of right breast (Ruled-out) Influenza (Ruled-out) Staphylococcal pneumonia (Ruled-out) Hypokalemia (Acute) Suspected 2019-nCoV infection (Ruled-out) Acute and chronic respiratory failure with hypoxia (Acute) Hypoxia (Acute) Diabetes mellitus, type II (Acute) Acute severe exacerbation of asthma (Resolved) Recurrent pneumonia (Resolved) Streptococcal pneumonia (Resolved) Weakness (Resolved)
== END 2021-06-27 18:59 | disposition skilled nursing facility (03) | DRG 167 ==
LOC: ED 20:20 → MS2 21:19
PROVIDERS: Internal Medicine; Internal Medicine Pulmonary Disease; Admitting Provider Family Medicine; Emergency Provider Emergency Medicine; PCP Internal Medicine; Visit Provider Family Medicine
PROC: 0BJ08ZZ Inspection of Tracheobronchial Tree, Via Natural or Artificial Opening Endoscopic (ICD-10-PCS; CPT 31622; principal; 2021-06-20 12:30)
DX: J15.1 Pneumonia due to Pseudomonas (principal); J84.116 Cryptogenic organizing pneumonia; Z68.43 Body mass index [BMI] 50.0-59.9, adult; J45.51 Severe persistent asthma with (acute) exacerbation; J84.9 Interstitial pulmonary disease, unspecified; K21.9 Gastro-esophageal reflux disease without esophagitis; Z79.4 Long term (current) use of insulin; E11.9 Type 2 diabetes mellitus without complications; E66.01 Morbid (severe) obesity due to excess calories; G47.33 Obstructive sleep apnea (adult) (pediatric); I10 Essential (primary) hypertension; E78.5 Hyperlipidemia, unspecified; G50.0 Trigeminal neuralgia; F41.9 Anxiety disorder, unspecified; E55.9 Vitamin D deficiency, unspecified; F32.A Depression, unspecified; Z87.891 Personal history of nicotine dependence; Z79.51 Long term (current) use of inhaled steroids; Z79.899 Other long term (current) drug therapy; Z79.890 Hormone replacement therapy; Z79.52 Long term (current) use of systemic steroids; Z99.81 Dependence on supplemental oxygen; G47.419 Narcolepsy without cataplexy; R91.1 Solitary pulmonary nodule
CPT/HCPCS: 36415; 36591; 36600; 71045; 71046; 71275; 74230; 76000; 80048; 80053; 81001; 82803; 82962; 83605; 83880; 84484; 85025; 87015; 87040; 87070; 87071; 87075; 87077; 87088; 87116; 87184; 87186; 87205; 87206; 87426; 87449; 87641; 88108; 88161; 88305; 88312; 88313; 89050; 92507; 92526; 92610; 92611; 93005; 94002; 94003; 94640; 94762; 97110; 97116; 97162; 97166; 97530; 97535; 99251; 99285; J7030; J7040; J7050; Q9967; A4216; G0463; J2405

== ENCOUNTER 2021-07-17 07:45 | Outpatient (CLI) | payer MEDICARE, SELFPAY ==
--- NOTE | 2021-07-17 | FLU_PTH ---
PATIENT: ALESSANDRO DOTSON LOC: [facility]#:[id number] AGE/SX: 75/F ROOM: RE07/17/[address]: Dr. Dre Watters MD : 1945 BED: DIS: 07/17/2021 SPEC #: [id number] RECD: 07/17/21 08:52 STATUS: TANO REBernardo #: [id number] HELEN: 07/17/21 00:[address]: Dre Watters V DEPT: CYTOLOGY RECD BY: Dereck Matute ENTERED: 07/17/21 10:56 SP TYPE: Fluid OTHR DR: Dr. Senait Jay MD Tissues: THORACIC FLUID Procedures: Special Stain Group II Surgery Specimen Level IV Cytospin Fluid HEADER OPERATION: Thoracentesis PRE-OP DIAGNOSIS: Pleural effusion TISSUE SUBMITTED: Thoracentesis fluid for cytology DIAGNOSIS CYTOLOGY Thoracentesis fluid for cytology (cytospin and cell block): Negative for malignant cells. See comment. SJ:dania 07/18/2021 COMMENT Clinical correlation and appropriate follow up are necessary. CYTOLOGY STUDY Slides are reviewed. CYTOLOGY GROSS Received is 95 ml of dark yellow cloudy fluid labeled with the patient's name and and designated per the requisition as thoracentesis. Submitted for cytology preparation including cell block. / dania 07/17/2021 TC:5 CPT: 57675, 65479
--- NOTE | 2021-07-17 07:57 | US_ITS ---
PROCEDURE: ULTRASOUND GUIDED THORACENTESIS. DATE: 07/17/2021. INDICATION: Female, 75 years old. Right pleural effusion. PHYSICIAN: Salazar Garcia M.D. PROCEDURE: The risks, benefits, and alternatives to the procedure were explained to the patient. The specific risks of bleeding, infection, and pneumothorax requiring chest tube insertion were discussed and accepted. Written informed consent was obtained. Ultrasonographic evaluation of the right lower pleural space was carried out. An adequate pocket was identified. The patient was placed in the sitting, upright position. The overlying skin was prepped and draped in sterile fashion. 1% lidocaine was administered subcutaneously for local anesthesia. Under ultrasound guidance, a 5French thoracentesis needle/catheter system was advanced into the right posterior lower pleural fluid collection. Approximately 300 mL of gilles-colored fluid fluid was drained. The catheter was removed, and a sterile dressing was applied. A specimen was collected and sent to the laboratory for analysis, as requested by the referring clinician. The patient tolerated the procedure well. A chest x-ray was ordered. US/Thoracentesis W US IMPRESSION: Ultrasound-guided right thoracentesis. Electronically Signed: Salazar Garcia MD at 9:04 [facility] ,
--- NOTE | 2021-07-17 07:59 | RAD_ITS ---
STUDY: X-RAY - PARANASAL SINUSES REASON FOR EXAM: Female, 75 years old. SINUSITIS TECHNIQUE: 4 view(s) of the paranasal sinuses were obtained. COMPARISON: None. FINDINGS: Normal visualized frontal, maxillary, ethmoidal and sphenoid sinuses. Normal visualized facial bones. The soft tissue structures are unremarkable. RAD/Sinuses min 3 Views IMPRESSION: Normal x-rays of the paranasal sinuses. Electronically Signed: Jose German MD at 9:01 EST ,
--- NOTE | 2021-07-17 08:30 | RAD_ITS ---
STUDY: X-RAY CHEST REASON FOR EXAM: Female, 75 years old. Post thora TECHNIQUE: AP inspiration and expiration views. COMPARISON: Comparison is made with prior study dated 06/27/2021. FINDINGS: The patient is status post right thoracentesis. There is no evidence of pneumothorax. Stable mass lesion or consolidation in the right upper lobe with the volume loss. RAD/Chest Insp/Exp 2 View IMPRESSION: No evidence of pneumothorax on the post right thoracentesis images. Electronically Signed: Salazar Garcia MD at 9:17 EST ,
[2021-07-17 08:35] LABS: Anion Gap 3 (5-15); Chloride 106 mmol/L (98-107); Sodium Level 139 mmol/L (136-145)
[2021-07-17 08:40] VITALS: BP 118/74; BP 148/77; BP 166/86; PULSE 78; PULSE 79; PULSE 82; RESP 20; TEMP 37; O2SAT 97
[2021-07-17 08:51] LABS: Cytology, Body Fluid / CSF SEE PATHOLOGY REPORT
--- NOTE | 2021-07-17 09:19 | NURSING ---
PT PRESENTED TO U/S WITH RT R-PORT DRESSING FALLING OFF. DRESSING REMOVED. SURROUNDING SKIN CLEANSED WITH CHLORAPREP SWAB AND SKIN PREP. CHG DRESSING APPLIED.
[2021-07-17 09:20] LABS: Body Fluid Mononuclear WBC # 0.663 10^3/uL; Body Fluid Mononuclear WBC % 95.8 %; Body Fluid Polynuclear WBC # 0.029 10^3/uL; Body Fluid Polynuclear WBC % 4.2 %; White Blood Count/Body Fluid 0.692 10^3/uL
[2021-07-17 09:26] LABS: Appearance/Body Fluid SL CLDY; Auto B Fluid Analyzer BKGD Ct COUNTS W/IN LIMITS (W/IN LIMITS); Color/Body Fluid YELLOW; Source- Body Fluid THORACENTESIS
[2021-07-17 09:56] LABS: Lymphocytes 58 %; Mesothelial Cells 17 %; Monocytes 14 %; Neutrophil (Segs) 6 %; Other Cell Type/BF 5 %
[2021-07-17 09:57] LABS: Body Fluid QC Type(s) BF4Q; Red Cell Count/Body Fluid 31 /mm3
[2021-07-17 15:21] LABS: Pathologist Comment/Body Fluid Reviewed
== END 2021-07-17 23:59 | disposition home or self-care (01) ==
PROVIDERS: PCP Internal Medicine; Referring Provider Internal Medicine Pulmonary Disease; Visit Provider Internal Medicine Pulmonary Disease
DX: J84.116 Cryptogenic organizing pneumonia (principal); J45.51 Severe persistent asthma with (acute) exacerbation; J32.9 Chronic sinusitis, unspecified
CPT/HCPCS: 32555; 36415; 70220; 71046; 80051; 87070; 87075; 87205; 88108; 88305; 88313; 89050

== ENCOUNTER 2021-07-31 11:47 | Outpatient (CLI) | payer MEDICARE, SELFPAY ==
--- NOTE | 2021-07-31 11:57 | RAD_ITS ---
STUDY: X-RAY CHEST REASON FOR EXAM: Female, 76 years old. Fever and cough TECHNIQUE: PA and lateral views of the chest. COMPARISON: 07/17/2021 FINDINGS: Stable appearance of a left-sided PICC line. Left lung is expanded without a superimposed process. There is partial but not yet complete resolution of previously described airspace opacifications in the right upper lobe. Stable right apical pleural thickening. Normal size heart. Normal mediastinum and tanna. Normal visualized pulmonary arteries. There is atherosclerotic calcification of the aortic arch with tortuosity. There are diffuse degenerative changes of the visualized thoracic spine. There is degenerative osteoarthritis of the bilateral shoulders. There is no demonstrated abnormality of the visualized soft tissue structures of the upper abdomen. RAD/Chest PA and Lateral IMPRESSION: Partial but not yet complete resolution of the previously described right upper lobe infiltrate. Continued follow-up recommended to show complete resolution Stable right apical pleural thickening, likely postsurgical Left lung is free of a superimposed process Electronically Signed: Yong Ordonez MD at 10:15 EST ,
== END 2021-07-31 23:59 | disposition home or self-care (01) ==
LOC: RAD 11:51
PROVIDERS: PCP Internal Medicine; Referring Provider Internal Medicine Pulmonary Disease; Visit Provider Internal Medicine Pulmonary Disease
DX: J84.116 Cryptogenic organizing pneumonia (principal)
CPT/HCPCS: 71046

== ENCOUNTER 2021-09-19 16:40 | Emergency (ER) | payer MEDICARE, SELFPAY ==
[2021-09-19] VITALS (9 sets, daily range): BP systolic 97–145; BP diastolic 56–77; PULSE 73–102; RESP 16–26; TEMP 36.5–36.9; O2SAT 2–98; BMI 51.7
--- NOTE | 2021-09-19 17:36 | EKG12_ITS ---
Test Reason : SOB Blood Pressure : / mmHG Vent. Rate : 092 BPM Atrial Rate : 092 BPM P-R Int : 144 ms QRS Dur : 076 ms QT Int : 366 ms P-R-T Axes : 000 036 081 degrees QTc Int : 452 ms Normal sinus rhythm 1st Degree AV Block Confirmed by JEFERSON RIVERA, GENIA ([id number]), editor news CAROL VARGAS ([id number]) on 09/22/2021 1:58:14 PM Referred By: KRISTEN Confirmed By:BEAR GOVEA MD
--- NOTE | 2021-09-19 17:39 | EDS_ITS ---
HPI History of Present Illness Chief Complaint: Shortness of Breath Informant: patient Narrative Narrative: History of non-small cell lung cancer on chronic 2 L of oxygen followed by Dr. Fernandez increasing cough for the past week cannot get sputum up. Has chills but no fevers. Increasing dyspnea. Denies COPD or asthma denies tobacco history. She had radiation therapy March last year currently chemotherapy last treatment was 2 weeks ago. Denies nausea vomiting diarrhea. Denies any urinary symptoms. She does have breathing treatments at home. Denies any wheezing. [facility] Medical History Acute and chronic respiratory failure with hypoxia Acute bronchitis due to Rhinovirus Acute severe exacerbation of asthma Allergic rhinitis Anemia Anxiety Asthma Asthmatic bronchitis Body mass index (BMI) 50-59.9, adult Breast cancer Chronic diarrhea Chronic respiratory failure with hypoxia Dependence on supplemental oxygen Depression Diabetes mellitus, type II Former tobacco use GERD (gastroesophageal reflux disease) History of primary non-small cell carcinoma of right lung History of right breast cancer Hypertension Immunosuppressed due to chemotherapy Migraine headache Migraines Obstructive sleep apnea Osteoarthritis Sleep apnea Vitamin D deficiency Home Medications cholecalciferol (vitamin D3) 50,000 unit PO SUWE@0800 06/01/17 [History Last Taken 06/15/21 08:00] pramipexole 0.5 mg PO QHS 06/01/17 [History Last Taken 12/05/20] albuterol sulfate 2.5 mg INHALATION Q2H PRN PRN #1 box 11/26/17 [Rx Last Taken 12/05/20] albuterol sulfate [ProAir HFA] 2 puff INHALATION Q6H PRN PRN 03/25/18 [History Last Taken 12/05/20] budesonide [Rhinocort Allergy] 2 puff NARES DAILY 06/12/18 [History Last Taken 09/26/20] carbamazepine 200 mg PO QHS 03/01/19 [History Last Taken 06/17/21 22:00] methylphenidate HCl 20 mg PO BID 03/01/19 [History Last Taken 12/05/20] nadolol 40 mg PO DAILY 03/01/19 [History Last Taken 12/05/20] paroxetine HCl [Paxil] 40 mg PO DAILY 03/01/19 [History Last Taken 12/05/20] loperamide 2 mg PO Q4H PRN PRN cap 10/08/19 [Rx Last Taken 09/26/20] insulin regular hum U-500 conc 85 units SQ DINNER 03/22/20 [History Last Taken 06/17/21 15:00] levocetirizine 5 mg PO QHS 03/22/20 [History Last Taken 12/05/20] montelukast 10 mg PO DAILY 03/22/20 [History Last Taken 12/05/20] nystatin 1 applic TOPICAL BID 03/22/20 [History Last Taken 2 Days Ago ~12/04/20] potassium chloride 10 meq PO BID 03/22/20 [History Last Taken 12/05/20] insulin regular hum U-500 conc 95 units SQ BREAKFAST 08/12/20 [History Last Taken 06/18/21 11:00] rosuvastatin 20 mg PO QHS 12/06/20 [History Last Taken 12/05/20] Dulera 2 puff INHALATION BID 06/19/21 [History Last Taken Unknown] lansoprazole 30 mg PO BID 06/19/21 [History Last Taken Unknown] polysaccharide iron complex [Ferrex 150] 150 mg PO BID 06/19/21 [History Last Taken Unknown] cefepime 2 g IV DAILY 7 Days #1 ea 06/27/21 [Rx Last Taken Unknown] levofloxacin 750 mg PO Q48H #4 tab 06/27/21 [Rx Last Taken Unknown] doxycycline monohydrate 100 mg PO BID #20 cap 09/19/21 [Rx Last Taken Unknown] Allergy/AdvReac Type Severity Reaction Status Date / Time adhesive tape Allergy tears skin Verified 09/19/21 16:42 cefadroxil [From Duricef] Allergy Unknown Verified 09/19/21 16:42 gluten Allergy celiac Verified 09/19/21 16:42 disease mesalamine [From Asacol] Allergy Unknown Verified 09/19/21 16:42 omalizumab [From Xolair] Allergy Unknown Verified 09/19/21 16:42 Sulfa (Sulfonamide Allergy swelling Verified 09/19/21 16:42 Antibiotics) as an infant oxycodone AdvReac Vomiting Verified 09/19/21 16:42 Family History Father Cancer Myocardial infarction Mother Cancer Metastatic breast CA Surgical History H/O rectocele repair History of lymph node dissection of right axilla History of mastectomy History of partial hysterectomy Hx of bilateral cataract extraction Hx of carpal tunnel repair Social History household members: spouse Smoking Status: Former smoker how long ago did patient quit smoking: Smoked x 2 years 1/2 ppd, quit ~ 50 years prior. alcohol intake: never substance use type: does not use ROS ROS ED Constitutional Constitutional ED: Reports chills; Denies fever(s) or sweats Eyes Eyes: Denies change in vision ENT ENT ED: Denies dysphagia or sore throat Cardiovascular Cardiovascular: Denies chest pain, leg edema, palpitations or racing heartbeat Respiratory/Chest Respiratory/Chest: Reports cough and dyspnea; Denies dyspnea on exertion Gastrointestinal Gastrointestinal: Denies abdominal pain, diarrhea, nausea or vomiting Genitourinary Genitourinary ED: Denies dysuria, hematuria or urinary frequency Musculoskeletal Musculoskeletal: Denies back pain, extremity pain or neck pain Integumentary Denies rash or wounds Neurologic Neurologic: Denies headache(s), paresthesias or weakness EXAM Physical Exam Const Vital Signs: 09/19/21 16:42 09/19/21 17:10 09/19/21 17:22 Temperature 97.7 F L 97.8 F Temperature Source Temporal Temporal Pulse Rate 102 H 89 88 Respiratory Rate 26 H 24 H 18 Respiratory Effort Respiratory Depth Respiratory Pattern Blood Pressure 142/69 H 139/56 H 145/65 H Blood Pressure Mean 93 83 91 Pulse Ox 98 95 Oxygen Delivery Method Nasal Cannula Room Air Oxygen Flow Rate (L/min) 2 09/19/21 17:50 09/19/21 17:55 09/19/21 18:43 Temperature 98.5 F 98.3 F Temperature Source Temporal Temporal Pulse Rate 90 73 87 Respiratory Rate 18 18 18 Respiratory Effort Normal Respiratory Depth Normal Respiratory Pattern Normal Blood Pressure 133/70 H 121/65 H Blood Pressure Mean 91 83 Pulse Ox 95 2 Oxygen Delivery Method Nasal Cannula Room Air Oxygen Flow Rate (L/min) 2 09/19/21 20:20 09/19/21 21:46 Temperature 98.4 F Temperature Source Temporal Pulse Rate 84 86 Respiratory Rate 18 16 Respiratory Effort Respiratory Depth Respiratory Pattern Blood Pressure 97/77 114/76 Blood Pressure Mean 83 Pulse Ox Oxygen Delivery Method Oxygen Flow Rate (L/min) Positive well nourished and well developed Constitutional Narrative: Stable on 2 L nasal cannula speaking in full sentences occasional coughing on exam. General Appearance ED: well developed and NAD HEENT Reports moist mucous membranes normocephalic and atraumatic Eyes PERRL, EOMs intact bilaterally and conjunctivae normal General Eye ED: Yes normal appearance of both eyes Neck no lymphadenopathy and supple General: Negative for tenderness Chest Wall Chest: Negative for tenderness Resp normal respiratory effort and normal air movement Effort and Inspection: symmetric chest movement; Negative for respiratory distress Cardio regular rate, regular rhythm and no murmurs Peripheral Pulses: pulses 2+ throughout GI normal to inspection, nondistended, normoactive bowel sounds and non-tender Palpation: Negative for guarding or rebound tenderness present Back/Spine no CVA tenderness and no thoracic nor lumbar tenderness Extremity normal to inspection General Extremety ED: Negative for edema or tenderness General Extremity: Negative for edema Neuro oriented x3 and no sensory deficits noted Sensorium / Orientation: awake and alert Skin no rashes or lesions noted and no wounds MDM MDM MDM Narrative Medical decision making narrative: Patient initial triage slight tachycardia a respiratory rate of 26 that improved. Secondary this with her on chemotherapy sepsis labs were ordered. Lab work stable white count 7.4 hemoglobin 11.5. Creatinine 0.76 normal electrolytes. Lactic acid 1.2. Chest x-ray 1 view reviewed by myself and read by radiology shows no acute findings. Covid testing negative. She is given aerosol treatment states symptoms are improving. Chronic were 2 L with ambulation 97 to 90% she has mild short of breath however not tachycardic. With rest immediately improved. She states she would like to go home. I discussed with covering oncologist for Dr. Crouch, recommended outpatient antibiotics initially Zithromax. However order discussed with patient she states this does not work. She has tolerated doxycycline which was started. She will follow-up as an outpatient with return precautions. All questions were answered. Lab Data Attestation: I reviewed the patient's lab results. Labs: Laboratory Results - last 24 hr 09/19/21 09/19/21 09/19/21 18:01 18:01 18:01 WBC 7.4 RBC 4.24 Hgb 11.5 L Hct 35.4 L MCV 83.5 MCH 27.1 MCHC 32.5 RDW Std Deviation 43.6 RDW Coeff of Aniceto 14.5 Plt Count 188 MPV 9.2 Immature Gran % (Auto) 0.300 Neut % (Auto) 71.7 H Lymph % (Auto) 9.6 L Morehouse % (Auto) 8.6 Eos % (Auto) 9.4 H Baso % (Auto) 0.4 Absolute Neuts (auto) 5.3 Absolute Lymphs (auto) 0.71 L Nucleated RBC % 0 PT 14.1 INR 1.1 APTT 30.6 Sodium 139 Potassium 3.8 Chloride 105 Carbon Dioxide 29.0 Anion Gap 5 BUN 17 Creatinine 0.76 Estim Creat Clear Calc 40.21 Est GFR (MDRD) Af Amer 95 Est GFR (MDRD) Non-Af 79 BUN/Creatinine Ratio 22.4 H Glucose 159 H Lactic Acid Calcium 9.5 Total Bilirubin 0.20 AST 16 ALT 16 Alkaline Phosphatase 84 Total Protein 7.2 Albumin 2.9 L Globulin 4.3 H Albumin/Globulin Ratio 0.7 L 09/19/21 18:05 WBC RBC Hgb Hct MCV MCH MCHC RDW Std Deviation RDW Coeff of Aniceto Plt Count MPV Immature Gran % (Auto) Neut % (Auto) Lymph % (Auto) Morehouse % (Auto) Eos % (Auto) Baso % (Auto) Absolute Neuts (auto) Absolute Lymphs (auto) Nucleated RBC % PT INR APTT Sodium Potassium Chloride Carbon Dioxide Anion Gap BUN Creatinine Estim Creat Clear Calc Est GFR (MDRD) Af Amer Est GFR (MDRD) Non-Af BUN/Creatinine Ratio Glucose Lactic Acid 1.2 Calcium Total Bilirubin AST ALT Alkaline Phosphatase Total Protein Albumin Globulin Albumin/Globulin Ratio Radiography Diagnostic Testing: Clinical Impression(s) from Imaging Studies Chest X-Ray 09/19/21 18:00 IMPRESSION: Chronic volume loss right upper lobe. Electronically Signed: Manoj Rosario MD at 18:28 EDT , EKG Initial EKG: Attestation: I personally reviewed and interpreted this EKG as follows: Comments: Sinus rhythm 92, no ST or T wave changes. Discharge Plan Triage Chief Complaint: Shortness of Breath Other Complaint: Cough ED Provider: Jesse Luciano Dx/Rx/DC Orders Clinical Impression: Acute bronchitis, History of immunotherapy, Non-small cell lung cancer Instructions: Acute Bronchitis Prescriptions: New doxycycline monohydrate 100 MG capsule 100 mg PO BID Qty: 20 RF: 0 No Action pramipexole 0.5 MG tablet 0.5 mg PO QHS RF: 0 cholecalciferol (vitamin D3) 50,000 UNIT capsule 50,000 unit PO SUWE@0800 RF: 0 albuterol sulfate 2.5 MG/3 ML solution for nebulization 2.5 mg INHALATION Q2H PRN PRN (Reason: Dyspnea, wheezing) Qty: 1 RF: 0 albuterol sulfate [ProAir HFA] 1 PUFF inhaler 2 puff inhalation Q6H PRN PRN (Reason: Dyspnea/Wheezing/Sob) RF: 0 budesonide [Rhinocort Allergy] 8.43 ML spray,non-aerosol 2 puff NARES DAILY RF: 0 carbamazepine 200 MG tablet 200 mg PO QHS RF: 0 methylphenidate HCl 20 MG tablet extended release 20 mg PO BID RF: 0 nadolol 40 MG tablet 40 mg PO DAILY RF: 0 paroxetine HCl [Paxil] 40 MG tablet 40 mg PO DAILY RF: 0 loperamide 2 MG capsule 2 mg PO Q4H PRN PRN (Reason: DIARRHEA) RF: 0 montelukast 10 MG tablet 10 mg PO DAILY RF: 0 levocetirizine 5 MG tablet 5 mg PO QHS RF: 0 nystatin 1 APPLIC bottle 1 applic TOPICAL BID RF: 0 potassium chloride 10 MEQ tablet 10 meq PO BID RF: 0 insulin regular hum U-500 conc 500 UNITS/ML insulin pen 85 units SQ DINNER RF: 0 insulin regular hum U-500 conc 500 UNITS/ML insulin pen 95 units SQ BREAKFAST RF: 0 rosuvastatin 20 mg tablet 20 mg PO QHS RF: 0 polysaccharide iron complex [Ferrex 150] 150 mg iron Capsule 150 mg PO BID RF: 0 lansoprazole 30 mg Capsule,Delayed Release(Dr/Ec) 30 mg PO BID RF: 0 Dulera 200-5 mcg/actuation Hfa Aerosol Inhaler 2 puff INHALATION BID RF: 0 cefepime 2 gram recon soln 2 g IV DAILY 7 Days Qty: 1 RF: 0 levofloxacin 750 mg tablet 750 mg PO Q48H Qty: 4 RF: 0 Primary Care Provider: Senait Jay Referrals: Alessandra Crouch MD [STAFF PHYSICIAN] - 3-5 Days Senait Jay MD [Primary Care Provider] - Activity Restrictions/Additional Instructions: Your work-up is negative. Antibiotic started per recommendations of oncology. No steroids per their recommendations. Breathing treatments at home as needed. Return if any worsening symptoms. Disposition Disposition: Home, Self Care Discharge Date/Time: 09/19/21 22:07
[2021-09-19] MEDS: Ipratropium/Albuterol Sulfate 3 ML AMPUL.NEB INHALATION (17:49)
--- NOTE | 2021-09-19 18:00 | RAD_ITS ---
EXAM: XR CHEST, 1 VIEW CLINICAL INDICATION: cough TECHNIQUE: Frontal view of the chest. This report was created using [employer] report generation technology. COMPARISON: 07/31/2021. FINDINGS: LUNGS AND PLEURAL SPACES: Chronic volume loss right upper lobe. No pneumothorax. No effusion. HEART: Unremarkable. Cardiac silhouette not enlarged. MEDIASTINUM: Central airways and mediastinal contour are unremarkable. BONES/JOINTS: Unremarkable. SOFT TISSUES: Unremarkable. RAD/Chest 1 View (Portable) IMPRESSION: Chronic volume loss right upper lobe. Electronically Signed: Manoj Rosario MD at 18:28 EDT ,
[2021-09-19 18:17] LABS: Absolute Lymphocyte Count 0.71 X10^3/uL (0.83-4.51); Absolute Neutrophil Count 5.3 X10^3/uL (2.0-7.7); Basophil# 0.03 X10^3/uL; Basophil% 0.4 % (0-1); Eosinophils% 9.4 % (0-5); Hematocrit 35.4 % (37-47); Hemoglobin 11.5 g/dL (12.0-15.0); Lymphocyte # 0.71 X10^3/ul (0.83-4.51); Lymphocyte % 9.6 % (19-41); Mean Corp Hgb Conc 32.5 g/dL (32-36); Mean Corpuscular Hgb 27.1 pg (27.0-32.0); Mean Corpuscular Volume 83.5 fL (81-99); Mean Platelet Vol. 9.2 fl (6.2-12.0); Monocyte# 0.64 X10^3/uL; Monocyte% 8.6 % (0-10); NRBC Flagged by Analyzer 0 % (0-5); Neutrophil # 5.31 X10^3/uL (2.7-7.7); Neutrophil % 71.7 % (47-70); Platelet Count 188 K/mm3 (150-450); RBC Distribution Width CV 14.5 % (11.6-14.6); RBC Distribution Width SD 43.6 fl (35.1-43.9); Red Blood Count 4.24 M/mm3 (4.2-5.4); White Blood Count 7.4 K/mm3 (4.4-11.0)
[2021-09-19 18:28] LABS: International Normalized Ratio 1.1; Prothrombin Time (Protime)PT. 14.1 SECONDS (11.7-14.9)
[2021-09-19 18:29] LABS: Partial Thromboplast Time 30.6 Seconds (24.1-36.2)
[2021-09-19 18:30] LABS: ALB/GLOB Ratio 0.7 RATIO (0.9-2.4); AST(SGOT) 16 U/L (15-37); Alanine Aminotransfer ALT/SGPT 16 U/L (13-56); Albumin, Serum 2.9 g/dL (3.2-5.0); Alkaline Phosphatase 84 U/L (45-117); Anion Gap 5 (5-15); BUN 17 mg/dL (7-18); BUN/Creat Ratio 22.4 RATIO (10-20); Calcium,Total 9.5 mg/dL (8.5-10.1); Chloride 105 mmol/L (98-107); Creatinine, Serum 0.76 mg/dL (0.55-1.02); EST Glomerular Filtration Rate 79 mL/min (>60); Est Glom Filt Rate - Afr Amer 95 mL/min (>60); Estimated Creatinine Clearance 40.21 ml/min; Globulin 4.3 g/dL (2.2-4.2); Glucose 159 mg/dL (74-106); Potassium 3.8 mmol/L (3.5-5.1); Protein, Total 7.2 g/dL (6.4-8.2); Sodium Level 139 mmol/L (136-145)
[2021-09-19 18:41] LABS: Lactic Acid 1.2 mmol/L (0.4-1.9)
--- NOTE | 2021-09-19 21:05 | ED.RN ---
DAUGHTER, MYAH, CALLS AND CAN BE REACHED AT [phone]. cALL CALL SHE WILL SET UP A RIDE. SHE LIVES IN [place] BUT WILL CALL A [facility]IDE WHEN PT IS READY BUT CAN CALL EITHER WAY WITH AN UPDATE.
[2021-09-19] MEDS: Doxycycline 100 MG CAPSULE PO (21:24)
== END 2021-09-19 22:07 | disposition home or self-care (01) ==
PROVIDERS: Emergency Provider Emergency Medicine; PCP Internal Medicine; Visit Provider Emergency Medicine
DX: J20.9 Acute bronchitis, unspecified (principal); C34.91 Malignant neoplasm of unspecified part of right bronchus or lung; E11.9 Type 2 diabetes mellitus without complications; Z79.4 Long term (current) use of insulin; E55.9 Vitamin D deficiency, unspecified; I10 Essential (primary) hypertension; K21.9 Gastro-esophageal reflux disease without esophagitis; F32.A Depression, unspecified; F41.9 Anxiety disorder, unspecified; Z99.81 Dependence on supplemental oxygen; Z79.899 Other long term (current) drug therapy; Z87.891 Personal history of nicotine dependence
CPT/HCPCS: 36415; 71045; 80053; 83605; 85025; 85610; 85730; 87040; 87811; 93005; 94640; 99251; 99284; G0463

== ENCOUNTER → 2021-10-14 | Outpatient (CLI) | payer MEDICARE, SELFPAY ==
--- NOTE | 2021-10-14 15:30 | RAD_ITS ---
EXAM: XR CHEST, 2 VIEWS CLINICAL INDICATION: PAIN TECHNIQUE: Frontal and lateral views of the chest. This report was created using [employer] report generation technology. COMPARISON: 09/19/2021 FINDINGS: LUNGS AND PLEURAL SPACES: New dense heterogeneous airspace disease involving the right upper lobe. Redemonstration of right pleural-parenchymal scarring. Ill-defined heterogeneous airspace disease involving the left lower lobe appear to be new. No pneumothorax. No effusion. HEART: Unremarkable. Cardiac silhouette not enlarged. MEDIASTINUM: Central airways and mediastinal contour are unremarkable. BONES/JOINTS: Unremarkable. SOFT TISSUES: Unremarkable. VASCULATURE: Atherosclerotic calcifications of the nonenlarged thoracic arch. Atherosclerotic calcifications of the nonenlarged thoracic arch. Degenerative changes acromioclavicular joints and spine. TUBES, LINES AND DEVICES: Left central venous catheter with tip at the junction of the brachycephalic vein and SVC. RAD/Chest PA and Lateral IMPRESSION: New airspace disease involving the right upper lobe and left lower lobe are concerning for pneumonia. Electronically Signed: Refugio Baez MD at 16:18 EDT ,
== END | disposition home or self-care (01) ==
LOC: MTRAD 15:25
PROVIDERS: PCP Internal Medicine; Referring Provider Internal Medicine Pulmonary Disease; Visit Provider Internal Medicine Pulmonary Disease
DX: J15.1 Pneumonia due to Pseudomonas (principal); J84.116 Cryptogenic organizing pneumonia
CPT/HCPCS: 71046

== ENCOUNTER → 2021-11-12 | Outpatient (CLI) | payer MEDICARE, SELFPAY ==
--- NOTE | 2021-11-12 13:45 | PET_ITS ---
PROCEDURE: WHOLE BODY PET/CT SCAN, MID SKULL TO MID THIGH REASON FOR EXAM: Malignant neoplasm of the right upper lobe, restaging COMPARISON EXAMINATION: PET scan 06/21/2020. CTA 06/18/2021 TECHNIQUE: Following the intravenous administration of 11.85 mCi of F-18 FDG, multiplanar imaging acquisitions of the neck, chest, abdomen/pelvis to the mid thigh, obtained at 1 hour post radiopharmaceutical administration. Interpretation is with co-registeration of similar anatomic distribution of CT. Findings: Normal and physiologic distribution of radioisotope identified in the expected intensity of the hepatic and splenic parenchyma, urinary tract and gastrointestinal structures. There is gross anatomic distribution of the intracranial contents. INDEX LESION SIZE SUV INTERPRETATION: 1. Focal nodule in the lateral right mid lung on image 178 series 201 measures 3.3 x 3.9 cm with focal FDG activity (SUV 9.2). Lesion on prior PET scan measured 2.1 x 2.8 cm (SUV 18.4) and was more medial than lesion on current exam. Low-level FDG activity in the atelectatic/compressed lung. CT portion of the exam: Left arm PICC present with tip of the catheter extending to the upper SVC. Atelectasis/volume loss of the right perihilar lung is redemonstrated, although mildly improved since most recent chest CTA. Moderate right pleural effusion is new since prior CTA chest. Normal heart and pericardium. No enlarging adenopathy. There are surgical clips of the right axilla. Right breast appears to be surgically absent. Normal hilar regions. Normal unenhanced pulmonary arteries. There is atherosclerotic calcification of the aortic arch with tortuosity and elongation of the aortic arch and descending thoracic aorta. There is a diffuse contour abnormality of the liver consistent with cirrhotic changes. Normal gallbladder and extrahepatic biliary system. Normal spleen. Normal pancreas. Normal bilateral adrenal glands. Simple right renal cyst. No required imaging follow-up needed given high likelihood of benign nature. No hydronephrosis. Normal visualized stomach. Normal small intestine. There are multiple colonic diverticula consistent with diverticulosis. There is non-visualization of the appendix. There is diffuse atherosclerotic calcification of the abdominal aorta, without a demonstrated aneurysm. Normal inferior vena cava. Normal urinary bladder. No destructive bony process. Small periumbilical fat-containing hernia. Degenerative changes of the lumbar spine. PET/PET/CT Tumor Base -Thigh Subs IMPRESSION: 1. ABNORMAL EXAMINATION. Right mid lung nodule (more lateral than prior PET scan) meets criteria for residual viable neoplasm. 2. Moderate right pleural effusion. 3. Atelectasis/compression of the right upper lobe. 4. Chronic changes, as detailed above. Electronically Signed: Owen Crowder MD (Brooks) at 15:32 EDT Reading Location ID and State: [facility] / [place] , Service support ,
== END | disposition home or self-care (01) ==
PROVIDERS: PCP Internal Medicine; Referring Provider Internal Medicine Hematology & Oncology; Visit Provider Internal Medicine Hematology & Oncology
DX: C34.11 Malignant neoplasm of upper lobe, right bronchus or lung (principal)
CPT/HCPCS: 78815; A9552

== ENCOUNTER → 2021-11-24 | Outpatient (CLI) | payer MEDICARE, SELFPAY ==
--- NOTE | 2021-11-24 | IMM_PTH ---
PATIENT: ALESSANDRO DOTSON LOC: U#:[id number] AGE/SX: 76/F ROOM: RE11/24/[address]: Dr. Alessandra Crouch MD : 1945 BED: DIS: 11/24/2021 SPEC #: [id number] RECD: 11/25/21 11:38 STATUS: SOUT REQ #: [id number] HELEN: 11/24/21 00:[address]: Alessandra Crouch DEPT: IMMUNOHISTOCHEMISTRY RECD BY: Amber Park ENTERED: 11/25/21 11:39 SP TYPE: IMMUNO OTHR DR: Dr. Senait Jay MD Tissues: THORACIC FLUID Procedures: BCL-2 (add) CD138 (add) CD20 (add) CD43 (add) CD45 (add) CD5 (add) CD79A (add) CD3 (initial) PHYSICIAN & INSTITUTION [address] [address] SPECIMEN INFORMATION: Tissue Source: Thoracentesis fluid Clinical Info: Pleural effusion Specimen Number: [id number] CPT code: 37046, 61648 x7 METHODOLOGY: Deparaffinized sections of prefer/formalin-fixed tissue or PAP/DQ stained slides are incubated with monoclonal/polyclonal antibodies/oligonucleotide probes. Localization is made via biotin free immunoperoxidase method. Appropriate controls are performed and reacted as expected. Results on target cell population are indicated in the following table: RESULTS: ANTIBODY / CLONE RESULT CD3 (PS1) positive CD5 (SP10) positive CD20 (L26) positive CD43 (L60) positive CD45 (RP2/18) positive CD79a (11E3) positive CD138 (B-A38) negative BCL-2 (bcl-2/100/D5) positive These tests were developed and their performance characteristics determined by [facility]. They may not have been cleared or approved by the U.S. Food and Drug Administration. The FDA has determined that such clearance or approval is not necessary. The above immunohistochemical/dualISH markers are ordered and reviewed by the Pathologist. INTERPRETATION: Thoracentesis fluid (cell block): Polytypic lymphocytes with predominantly small T-cell lymphocytes. AM:dania 11/26/2021
--- NOTE | 2021-11-24 12:00 | US_ITS ---
PROCEDURE: ULTRASOUND GUIDED THORACENTESIS. DATE: 07/17/2021. INDICATION: Female, 76 years old. Right pleural effusion. PHYSICIAN: Flavio Giles DO PROCEDURE: The risks, benefits, and alternatives to the procedure were explained to the patient. The specific risks of bleeding, infection, and pneumothorax requiring chest tube insertion were discussed and accepted. Written informed consent was obtained. Ultrasonographic evaluation of the right lower pleural space was carried out. An adequate pocket was identified. The patient was placed in the sitting, upright position. The overlying skin was prepped and draped in sterile fashion. 1% lidocaine was administered subcutaneously for local anesthesia. Under ultrasound guidance, a 5French thoracentesis needle/catheter system was advanced into the right posterior lower pleural fluid collection. Approximately 120 mL of gilles-colored fluid was aspirated and sent for labs. A total of 620 cc of gilles-colored fluid was withdrawn. The catheter was removed, and a sterile dressing was applied. The collected specimen was sent to the laboratory for analysis, as requested by the referring clinician. The patient tolerated the procedure well. A chest x-ray was ordered demonstrating no sizable pneumothorax. The patient was discharged home in stable condition. US/Thoracentesis W US IMPRESSION: Ultrasound-guided therapeutic and diagnostic right thoracentesis. Electronically Signed: Flavio Giles, at 14:10 EDT ,
[2021-11-24 12:12] VITALS: BP 171/107; BP 175/90; BP 176/104; BP 181/105; PULSE 89; PULSE 90; PULSE 91; PULSE 92; RESP 18; TEMP 35.8; O2SAT 97; O2SAT 98
[2021-11-24] MEDS: Lidocaine 2% (20 ml mdv) 20 ML Vial INFILT (12:22)
--- NOTE | 2021-11-24 12:30 | FLU_PTH ---
PATIENT: ALESSANDRO DOTSON LOC: [facility]#:[id number] AGE/SX: 76/F ROOM: RE11/24/[address]: Dr. Alessandra Crouch MD : 1945 BED: DIS: 11/24/2021 SPEC #: [id number] RECD: 11/24/21 13:01 STATUS: TANO REQ #: [id number] HELEN: 11/24/21 12:[address]: Alessandra Crouch DEPT: CYTOLOGY RECD BY: Cara Brian ENTERED: 11/24/21 13:51 SP TYPE: Fluid OTHR DR: Dr. Senait Jay MD Tissues: THORACIC FLUID Procedures: Special Stain Group II Surgery Specimen Level IV Cytospin Fluid HEADER OPERATION: Ultrasound-guided right thoracentesis PRE-OP DIAGNOSIS: Pleural effusion TISSUE SUBMITTED: Thoracentesis fluid for cytology DIAGNOSIS CYTOLOGY Thoracentesis fluid for cytology (cytospin and cell block): Polytypic (benign) lymphocytes present. See comment. AM:dania 11/25/2021 COMMENT Immunohistochemistry ([id number]) supports the above diagnosis. The specimen consists primarily of small T-cell lymphocytes. Case has been reviewed in consultation with Dr. Dong who concurs with the above diagnosis. IDC:[id number] CYTOLOGY STUDY Slides are reviewed. CYTOLOGY GROSS Received is 90 ml of red cloudy fluid labeled with the patient's name and and designated per the requisition as thoracentesis. Submitted for cytology preparation including cell block. / dania 11/24/2021 TC:5 CPT: 85073, 83243
--- NOTE | 2021-11-24 12:35 | RAD_ITS ---
INDICATION: POST THORA EXAMINATION/TECHNIQUE: X-RAY - XR Chest 2 Views COMPARISON: 10/14/2021 FINDINGS: Support devices: Stable positioning of the left peripheral approach catheter terminating in the superior vena cava. Improved aeration of the right upper lung with grossly stable right suprahilar opacity. No sizable pleural effusion or pneumothorax status post thoracentesis. Heart size is stable. Bones and soft tissues are unchanged. RAD/Chest Insp/Exp 2 View IMPRESSION: No sizable pneumothorax status post thoracentesis. Electronically Signed: Flavio Giles, at 13:04 EDT ,
[2021-11-24 13:02] LABS: Cytology, Body Fluid / CSF SEE PATHOLOGY REPORT
[2021-11-24 13:28] LABS: Body Fluid Mononuclear WBC # 2.611 10^3/uL; Body Fluid Mononuclear WBC % 98.9 %; Body Fluid Polynuclear WBC # 0.029 10^3/uL; Body Fluid Polynuclear WBC % 1.1 %; Body Fluid Total Cells Counted 2.833 10^3/ul; Red Cell Count/Body Fluid 0.005 10^6/ul
[2021-11-24 13:51] LABS: Appearance/Body Fluid SL CLDY; Auto B Fluid Analyzer BKGD Ct COUNTS W/IN LIMITS (W/IN LIMITS); Color/Body Fluid YELLOW; Source- Body Fluid THORACENTESIS
[2021-11-24 13:56] LABS: LDH,Body Fluid 89 Units/l (Not Establ.); Protein, Body Fluid 4.9 g/dL (Not Establ.)
[2021-11-24 14:56] LABS: Body Fluid QC Type(s) BF2Q; Lymphocytes 73 %; Monocytes 10 %; Neutrophil (Segs) 4 %; Other Cell Type/BF 13 %
[2021-11-25 13:38] LABS: Pathologist Comment/Body Fluid Reviewed
== END | disposition home or self-care (01) ==
LOC: US 11:58
PROVIDERS: PCP Internal Medicine; Referring Provider Internal Medicine Hematology & Oncology; Visit Provider Internal Medicine Hematology & Oncology
DX: C34.90 Malignant neoplasm of unspecified part of unspecified bronchus or lung (principal); J90 Pleural effusion, not elsewhere classified
CPT/HCPCS: 32555; 71046; 83615; 84157; 88108; 88305; 88313; 88341; 88342; 89050

== ENCOUNTER → 2021-12-02 | Outpatient (CLI) | payer MEDICARE, SELFPAY | END | disposition home or self-care (01) | PROVIDERS: PCP Internal Medicine; Visit Provider Internal Medicine Pulmonary Disease | DX: R05.9 Cough, unspecified (principal) | CPT/HCPCS: 87070; 87077; 87186; 87205 ==

== ENCOUNTER 2021-12-09 14:24 | Inpatient (IN) | payer MEDICARE, SELFPAY ==
[2021-12-09] VITALS (21 sets, daily range): BP systolic 89–147; BP diastolic 51–94; PULSE 88–154; RESP 20–32; TEMP 35.5–37.1; O2SAT 91–100; BMI 50.3; BMI 50.8
--- NOTE | 2021-12-09 14:32 | EKG12_ITS ---
Test Reason : TACHYCARDIA Blood Pressure : / mmHG Vent. Rate : 155 BPM Atrial Rate : 326 BPM P-R Int : 000 ms QRS Dur : 074 ms QT Int : 310 ms P-R-T Axes : 000 -06 111 degrees QTc Int : 498 ms Atrial flutter with variable A-V block Nonspecific ST and T wave abnormality Abnormal ECG Confirmed by SHARLA RIVERA, EN ([id number]), development editor CAROL VARGAS ([id number]) on 12/11/2021 9:03:36 AM Referred By: ABHIJIT/MIKE/RODOLFO Confirmed By:EN MAGDALENO MD
--- NOTE | 2021-12-09 15:00 | RAD_ITS ---
STUDY: X-RAY CHEST REASON FOR EXAM: Female, 76 years old. Respiratory failure TECHNIQUE: Single AP portable view of the chest. COMPARISON: Comparison is made with prior study dated 11/24/2021. FINDINGS: EKG electrodes are seen. Surgical clips are seen in the right axillary region. A left-sided PICC line catheter is seen with its tip in the midportion of superior vena cava. Progressive infiltrate in the right upper lobe. Stable blunting of the right costophrenic angle with volume loss in the right lower lobe. Normal size heart. Normal mediastinum and tanna. Normal visualized pulmonary arteries. There is atherosclerotic calcification of the aortic arch with tortuosity. There are diffuse degenerative changes of the visualized thoracic spine. Normal visualized ribs, clavicles, and shoulders. There is no demonstrated abnormality of the visualized soft tissue structures of the upper abdomen. RAD/Chest 1 View (Portable) IMPRESSION: Progressive infiltrate in the right upper lobe. Stable blunting of the right constrained angle with volume loss in the posterior medial segment of the right lower lung. Electronically Signed: Salazar Garcia MD at 15:29 EDT ,
[2021-12-09 15:25] LABS: Absolute Lymphocyte Count 0.76 X10^3/uL (0.83-4.51); Absolute Neutrophil Count 14.2 X10^3/uL (2.0-7.7); Basophil# 0.03 X10^3/uL; Basophil% 0.2 % (0-1); Eosinophil# 0.34 X10^3/uL; Eosinophils% 2.1 % (0-5); Hematocrit 40.8 % (37-47); Hemoglobin 12.3 g/dL (12.0-15.0); Lymphocyte # 0.76 X10^3/ul (0.83-4.51); Lymphocyte % 4.7 % (19-41); Mean Corp Hgb Conc 30.1 g/dL (32-36); Mean Corpuscular Hgb 26.7 pg (27.0-32.0); Mean Corpuscular Volume 88.7 fL (81-99); Mean Platelet Vol. 9.6 fl (6.2-12.0); Monocyte# 0.84 X10^3/uL; Monocyte% 5.2 % (0-10); NRBC Flagged by Analyzer 0 % (0-5); Neutrophil # 14.19 X10^3/uL (2.7-7.7); Neutrophil % 87.1 % (47-70); Platelet Count 349 K/mm3 (150-450); RBC Distribution Width CV 15.2 % (11.6-14.6); RBC Distribution Width SD 49.1 fl (35.1-43.9); White Blood Count 16.3 K/mm3 (4.4-11.0)
[2021-12-09 15:35] LABS: International Normalized Ratio 1.1; Partial Thromboplast Time 36.6 Seconds (24.1-36.2)
[2021-12-09 15:41] LABS: Blood Gas Specimen Type VEN; VBG BASE EXCESS 8 mmol/L (-1.0-3.5); VBG Bicarbonate 32 mmol/L (22-26); VBG PO2 38 mmHg (25-40); VBG SO2 73 % (50-70); VBG TCO2 34 mmol/L (23-33); VBG pCO2 49.2 mmHg (41-51); VBG pH 7.43 (7.32-7.42)
[2021-12-09] MEDS: Heparin Injection (Vial) 5,000 UNIT/ML VIAL 10500 UNIT IV (15:41)
[2021-12-09] MEDS: Amiodarone 360 MG in Dextrose 5% Viaflo Bag 192.8 ML 33.3 MG CONT INF (15:42)
[2021-12-09] MEDS: HEPARIN/D5w 25,000 UNITS 25,000 UNITS/250 ML IV.SOLN. 17 UNITS CONT INF (15:42)
[2021-12-09 15:45] LABS: ALB/GLOB Ratio 0.5 RATIO (0.9-2.4); AST(SGOT) 21 U/L (15-37); Alanine Aminotransfer ALT/SGPT 37 U/L (13-56); Albumin, Serum 2.3 g/dL (3.2-5.0); Alkaline Phosphatase 143 U/L (45-117); Anion Gap 5 (5-15); BUN 17 mg/dL (7-18); BUN/Creat Ratio 21.2 RATIO (10-20); Calcium,Total 9.4 mg/dL (8.5-10.1); Chloride 100 mmol/L (98-107); EST Glomerular Filtration Rate 74 mL/min (>60); Est Glom Filt Rate - Afr Amer 90 mL/min (>60); Estimated Creatinine Clearance 50.26 ml/min; Globulin 4.2 g/dL (2.2-4.2); Glucose 174 mg/dL (74-106); Potassium 4.2 mmol/L (3.5-5.1); Protein, Total 6.5 g/dL (6.4-8.2); Sodium Level 139 mmol/L (136-145); Troponin-I HS 22 pg/mL (3.0-54.0)
[2021-12-09 15:56] LABS: Lactic Acid 1.9 mmol/L (0.4-1.9)
--- NOTE | 2021-12-09 15:58 | ED.VIS.DYS ---
HPI History of Present Illness Chief Complaint: Shortness of Breath Detail of Chief Complaint: Shortness of breath that started 2 to 3 days ago Informant: patient and family Onset/Context/Timing Onset: Days Context: sudden Timing: Continuous Quality: Positive for Dyspnea on exertion; Negative for Orthopnea, PND or Wheezing Current Severity: Moderate Maximum Severity: Severe Worsened by: Exertion and Coughing; Not Worsened By Lying flat Relieved by: Nothing Associated Symptoms cough; Negative for rhinorrhea, post nasal drip, ear pain, fever, sore throat, subjective, chills, sweats, clear sputum, white sputum, yellow sputum or green sputum Chest Pain: Positive for None Narrative Narrative: Patient is a 76-year-old woman with history of stage III lung cancer diagnosed last year who presents with shortness of breath started to 3 days ago. She does have a cough. Cough is nonproductive. She complains of subjective fever. Her temperature was 98.6. She denies leg pain, swelling discoloration. She was unaware that her heart was going fast or irregular. She does have's history of obstructive sleep apnea. She denies history of congestive heart failure or coronary artery disease. She denies orthopnea or PND. She denies anginal equivalent chest discomfort. Her main complaint is shortness of breath. She does have remote history of pneumonia. She has had no ill contacts. She does have history of lung problems. She also has history of type 1 diabetes, hypercholesterolemia, GERD. She denies leg pain, swelling or discoloration. She denies black or maroon-colored stool. She denies urologic symptoms. PE Risk Factors: Positive for Cancer, Prior DVT or PE and Recent immobilization; Negative for OCP + Smoking + > 35, Recent surgery or Recent travel Prior similar symptoms: No Recent Illness/Hospitalization: No [facility] Medical History Acute and chronic respiratory failure with hypoxia Acute bronchitis due to Rhinovirus Acute severe exacerbation of asthma Allergic rhinitis Anemia Anxiety Asthma Asthmatic bronchitis Body mass index (BMI) 50-59.9, adult Breast cancer Chronic diarrhea Chronic respiratory failure with hypoxia Dependence on supplemental oxygen Depression Diabetes mellitus, type II Former tobacco use GERD (gastroesophageal reflux disease) History of primary non-small cell carcinoma of right lung History of right breast cancer Hypertension Immunosuppressed due to chemotherapy Migraine headache Migraines Obstructive sleep apnea Osteoarthritis Sleep apnea Vitamin D deficiency Home Medications cholecalciferol (vitamin D3) 1,250 mcg (50,000 unit) capsule 50,000 unit PO SUWE@0800 SUPPLEMENT 06/01/17 [History Last Taken 06/15/21 08:00] albuterol sulfate 2.5 mg (3 mL) inhalation Q2H PRN PRN Dyspnea, wheezing ##1 11/26/17 [Rx Last Taken 12/05/20] albuterol sulfate 90 mcg/actuation aerosol inhaler (ProAir HFA) 2 puff inhalation Q6H PRN PRN Dyspnea/Wheezing/Sob 03/25/18 [History Last Taken 12/05/20] budesonide 32 mcg/actuation nasal spray (Rhinocort Allergy) 2 puff DAILY ALLERGIES 06/12/18 [History Last Taken 09/26/20] methylphenidate HCl 20 mg tablet,extended release 20 mg PO BID ADHD 03/01/19 [History Last Taken 12/05/20] nystatin 100,000 unit/gram topical powder 1 applic topical BID SKIN 03/22/20 [History Last Taken 2 Days Ago ~12/04/20] mometasone-formoterol HFA 200 mcg-5 mcg/actuation aerosol inhaler (Dulera) 2 puff inhalation BID asthma 06/19/21 [History Last Taken Unknown] hydralazine 10 mg tablet 10 mg PO TID 12/09/21 [History Last Taken Unknown] Allergy/AdvReac Type Severity Reaction Status Date / Time adhesive tape Allergy tears skin Verified 09/19/21 16:42 cefadroxil [From Duricef] Allergy Unknown Verified 09/19/21 16:42 gluten Allergy celiac Verified 09/19/21 16:42 disease mesalamine [From Asacol] Allergy Unknown Verified 09/19/21 16:42 omalizumab [From Xolair] Allergy Unknown Verified 09/19/21 16:42 Sulfa (Sulfonamide Allergy swelling Verified 09/19/21 16:42 Antibiotics) as an oxycodone AdvReac Vomiting Verified 09/19/21 16:42 Family History Father Cancer Myocardial infarction Mother Cancer Metastatic breast CA Surgical History H/O rectocele repair History of lymph node dissection of right axilla History of mastectomy History of partial hysterectomy Hx of bilateral cataract extraction Hx of carpal tunnel repair Social History household members: spouse Smoking Status: Former smoker how long ago did patient quit smoking: Smoked x 2 years 1/2 ppd, quit ~ 50 years prior. alcohol intake: never substance use type: does not use ROS ROS ED Constitutional Constitutional ED: Reports fever(s); Denies chills, sweats or weight loss Eyes Eyes: Denies blurry vision, change in vision or diplopia ENT ENT ED: Denies ear pain, rhinorrhea or sore throat Cardiovascular Cardiovascular: Denies chest pain, orthopnea, palpitations, paroxysmal nocturnal dyspnea or racing heartbeat Respiratory/Chest Respiratory/Chest: Reports cough, dyspnea and dyspnea on exertion; Denies orthopnea, paroxysmal nocturnal dyspnea or sputum Gastrointestinal Gastrointestinal: Denies abdominal pain, constipation, diarrhea, melena, nausea or vomiting Genitourinary Genitourinary ED: Denies dysuria, hematuria or urinary frequency Musculoskeletal Musculoskeletal: Denies arthralgias, back pain, myalgias or neck pain Integumentary Denies abscess, Abrasions or rash Neurologic Neurologic: Denies headache(s), paresthesias or weakness Psychiatric Psychiatric: Reports anxiety; Denies depression Endocrine Endocrinology: Denies cold intolerance, heat intolerance, polydipsia, polyphagia or polyuria Hematologic/Lymphatic Hematologic/Lymphatic: Denies easy bleeding or easy bruising EXAM Physical Exam Narrative Exam Narrative: Patient is diaphoretic, pale and appears ill. Const Vital Signs: 12/09/21 14:26 12/09/21 14:32 12/09/21 14:33 Temperature 96.0 F L Temperature Source Temporal Pulse Rate 154 H Respiratory Rate 30 H Respiratory Effort Short of Breath Labored Respiratory Depth Shallow Respiratory Pattern Tachypnea Blood Pressure 124/72 H Blood Pressure Mean 89 Blood Pressure Source Pulse Ox 100 Oxygen Delivery Method Non-Rebreather Non-Rebreather Oxygen Flow Rate (L/min) 10 10 12/09/21 15:42 12/09/21 15:51 12/09/21 17:30 Temperature 96 F L 97.6 F L Temperature Source Temporal Temporal Pulse Rate 132 H 141 H 132 H Respiratory Rate 24 H 22 H 22 H Respiratory Effort Respiratory Depth Respiratory Pattern Blood Pressure 90/68 104/94 H 106/77 Blood Pressure Mean 75 97 86 Blood Pressure Source Monitor Pulse Ox 98 99 98 Oxygen Delivery Method Nasal Cannula Nasal Cannula Nasal Cannula Oxygen Flow Rate (L/min) 6 6 6 Positive well nourished, well developed and obese; Negative for cachectic, contractures or unkempt General Appearance ED: well developed and pallor; Negative for unkempt, cachectic, contractures or NAD Nutritional Appearance: obese; Negative for cachectic HEENT Reports moist mucous membranes HEENT Narrative: Ears normal. Nares patent. There is no discharge. TMs normal. Uvula midline. There is no erythema or exudate of posterior pharynx. atraumatic; Negative for trauma or tenderness Eyes PERRL and EOMs intact bilaterally General Eye ED: Negative for pale conjunctiva or scleral icterus Neck no lymphadenopathy, supple, no meningeal signs and no JVD Neck Narrative: Trachea is midline. There is no inspiratory expiratory stridor. Resp No normal respiratory effort and No clear to auscultation bilaterally Effort and Inspection: Negative for pain with movement Auscultation: Negative for rales, rhonchi or wheezes Cardio no murmurs Rate: tachycardic Rhythm: abnormal rhythm irregularly irregular GI non-tender, non-distended and no masses Auscultation: hypoactive bowel sounds Palpation: soft Back/Spine no CVA tenderness and normal to inspection Back/Spine Narrative: Patient has numerous skin lesions. She is diaphoretic. She appears pale. Extremity normal to inspection Extremity Narrative: DP and PT pulse are palpable. General Extremety ED: Negative for edema or tenderness General Extremity: Negative for edema Neuro oriented x3, CN's II-XII intact bilaterally and no sensory deficits noted [place] Coma Scale: document GCS findings Spontaneous Obeys Commands Oriented 15 Sensorium / Orientation: alert, oriented to person, oriented to place and oriented to time Speech: speech normal Psych mental status grossly normal Appearance: Negative for unkempt Attitude: No agitated Mood & Affect: Negative for depressed Skin no wounds and skin turgor normal Skin Narrative: Diaphoretic. General Skin Exam: pallor; Negative for jaundice Lesions: no lesions MDM MDM MDM Narrative Medical decision making narrative: Patient presents with dyspnea. This may be due to to A. fib with RVR. With history of stage III lung cancer and new onset A. fib and hypoxia need to evaluate for pulmonary embolus if chest x-ray does not reveal evidence of heart failure or pneumonia. CBC was obtained to assess white count as well as H&H. Coags since patient will need anticoagulated. Comprehensive metabolic panel to assess for endorgan dysfunction, CO2 retention. Troponin, BNP were also ordered. Patient was treated with amiodarone and heparin because of concern for possible pulmonary embolus. Since chest x-ray does not explain patient's hypoxia she has high pretest probability for PE therefore will order CTA since renal function is normal. Lab Data Attestation: I reviewed the patient's lab results. Lab results narrative: White count is elevated with slight shift. There is no bandemia. Of note chest x-ray reveals no acute changes. Coags are unremarkable. Comprehensive metabolic panel is marked for elevated CO2 which would be consistent with her retaining due to probable undiagnosed pickwickian syndrome. Lactate is normal. First troponin is normal with 3 days of symptoms. Labs: Laboratory Results - last 24 hr 12/09/21 12/09/21 12/09/21 14:40 14:40 14:40 WBC 16.3 H RBC 4.60 Hgb 12.3 Hct 40.8 MCV 88.7 MCH 26.7 L MCHC 30.1 L RDW Std Deviation 49.1 H RDW Coeff of Aniceto 15.2 H Plt Count 349 MPV 9.6 Immature Gran % (Auto) 0.700 Neut % (Auto) 87.1 H Lymph % (Auto) 4.7 L Andrews % (Auto) 5.2 Eos % (Auto) 2.1 Baso % (Auto) 0.2 Absolute Neuts (auto) 14.2 H Absolute Lymphs (auto) 0.76 L Nucleated RBC % 0 PT 14.0 INR 1.1 APTT 36.6 H Sodium 139 Potassium 4.2 Chloride 100 Carbon Dioxide 34.0 H Anion Gap 5 BUN 17 Creatinine 0.80 Estim Creat Clear Calc 50.26 Est GFR (MDRD) Af Amer 90 Est GFR (MDRD) Non-Af 74 BUN/Creatinine Ratio 21.2 H Glucose 174 H Lactic Acid Calcium 9.4 Total Bilirubin 0.50 AST 21 ALT 37 Alkaline Phosphatase 143 H Troponin I High Sens 22 Total Protein 6.5 Albumin 2.3 L Globulin 4.2 Albumin/Globulin Ratio 0.5 L 12/09/21 14:40 WBC RBC Hgb Hct MCV MCH MCHC RDW Std Deviation RDW Coeff of Aniceto Plt Count MPV Immature Gran % (Auto) Neut % (Auto) Lymph % (Auto) Andrews % (Auto) Eos % (Auto) Baso % (Auto) Absolute Neuts (auto) Absolute Lymphs (auto) Nucleated RBC % PT INR APTT Sodium Potassium Chloride Carbon Dioxide Anion Gap BUN Creatinine Estim Creat Clear Calc Est GFR (MDRD) Af Amer Est GFR (MDRD) Non-Af BUN/Creatinine Ratio Glucose Lactic Acid 1.9 Calcium Total Bilirubin AST ALT Alkaline Phosphatase Troponin I High Sens Total Protein Albumin Globulin Albumin/Globulin Ratio ABG Data ABG results: ABG 12/09/21 15:32 Specimen Type NANCY VBG pH 7.43 H VBG pO2 38 VBG HCO3 32 H VBG Total CO2 34 H VBG O2 Sat (Calc) 73 H VBG Base Excess 8 H POC Mix VBG pCO2 Pt Tmp 49.2 Radiography Chest X-Ray - ED: 1 View and Read by ED Physician (Chest x-ray was independently reviewed by me and reveals a scar right upper lobe that has progressed from prior. There is area of loculation/atelectasis right lower lobe which is stable and unchanged from prior x-ray. The right heart border there is a procured because of this loculated area. The ) Diagnostic Testing: Clinical Impression(s) from Imaging Studies Chest X-Ray 12/09/21 15:00 IMPRESSION: Progressive infiltrate in the right upper lobe. Stable blunting of the right constrained angle with volume loss in the posterior medial segment of the right lower lung. Electronically Signed: Salazar Garcia MD at 15:29 EDT , Humerus X-Ray 12/09/21 16:51 IMPRESSION: Along the left humerus there is contrast extravasation around the catheter. Electronically Signed: Sharan Haddad MD at 17:21 EDT , Chest CTA 12/09/21 17:00 IMPRESSION: 1. Mucous, fluid, or debris noted in the right bronchus. This may suggest an aspiration pneumonia. 2. No demonstrated pulmonary embolism or arterial dissection. 3. There is a large right pleural fusion. Electronically Signed: Sharan Haddad MD at 17:28 EDT Reading Location ID and State: [facility] / [place] , Service support , Critical Care Time Critical Care Time: Yes Critical care time (excluding procedures): 30-74 minutes (33), Including time spent: (History, physical, documentation, review of prior records, interpretation laboratory results and initiation of therapy), Discussing w/Patient &/or Family/Warehouse Trainer (Discussion with daughter who is initially in room and other family members who have are now present.), Discussing w/Consultants and Arranging Admission or Transfer Discharge Plan Triage Chief Complaint: Shortness of Breath ED Provider: Josh Gallardo Dx/Rx/DC Orders Clinical Impression: Atrial fibrillation with RVR, Acute and chronic respiratory failure with hypoxia, Diabetes mellitus, type II, Aspiration pneumonitis Prescriptions: No Action cholecalciferol (vitamin D3) 50,000 UNIT capsule 50,000 unit PO SUWE@0800 albuterol sulfate 2.5 MG/3 ML solution for nebulization 2.5 mg INHALATION Q2H PRN PRN (Reason: Dyspnea, wheezing) Qty: 1 0RF albuterol sulfate [ProAir HFA] 1 PUFF inhaler 2 puff inhalation Q6H PRN PRN (Reason: Dyspnea/Wheezing/Sob) budesonide [Rhinocort Allergy] 8.43 ML spray,non-aerosol 2 puff NARES DAILY methylphenidate HCl 20 MG tablet extended release 20 mg PO BID Label Comments: take 1 tablet by mouth twice a day nystatin 1 APPLIC bottle 1 applic TOPICAL BID Protocol: *Topical Application Instructions APPLICATION INSTRUCTIONS: APPLY TO ABDOMINAL FOLDS Dulera 200-5 mcg/actuation Hfa Aerosol Inhaler 2 puff INHALATION BID hydralazine 10 mg Tablet 10 mg PO TID Primary Care Provider: Senait Jay Referrals: Senait Jay MD [Primary Care Provider] - Disposition Disposition: Acute Care Hospital [facility]
--- NOTE | 2021-12-09 16:42 | ED.RN ---
PORT DEACCESSED AT THIS TIME DUE TO INFILTRATION. CT SCAN NOTIFIED THIS RN OF AREA HAVING EDEMA AND ECCHYMOSIS. 10 CM AREA NOTED BY TONY, CHARGE NURSE.
--- NOTE | 2021-12-09 16:51 | RAD_ITS ---
EXAM: XR LEFT HUMERUS, 2 OR MORE VIEWS CLINICAL INDICATION: PORT INTEGRITY Technologist Notes S/P INFILTRATION FROM PORT TECHNIQUE: Frontal and lateral views of the left humerus. This report was created using [employer] report [employer] technology. COMPARISON: None. FINDINGS: BONES/JOINTS: Unremarkable. No acute fracture. No subluxation. Normal alignment. Preservation of the joint space. No sclerotic or destructive changes observed. SOFT TISSUES: Unremarkable. No soft tissue swelling or gas. No radiopaque foreign body. TUBES, LINES AND DEVICES: Along the left humerus there is contrast extravasation around the catheter. RAD/Humerus min 2 Views IMPRESSION: Along the left humerus there is contrast extravasation around the catheter. Electronically Signed: Sharan Haddad MD at 17:21 EDT ,
--- NOTE | 2021-12-09 17:00 | CT_ITS ---
EXAM: CT ANGIOGRAPHY CHEST WITHOUT AND WITH INTRAVENOUS CONTRAST CLINICAL INDICATION: High pretest probability pulmonary embolus chest pain TECHNIQUE: Helically acquired angiography images were obtained of the chest without and with intravenous contrast. This CT exam was performed using one or more of the following dose reduction techniques: automated exposure control, adjustment of the mA and/or kV according to patient size, and/or use of iterative reconstruction technique. This report was created using [employer] report generation technology. MIP reconstructed images were created and reviewed. CONTRAST: IV 100mL [id number] RADIATION DOSE: CTDIvol = 12.66 mGy, DLP = 547.37 mGy-cm COMPARISON: None. FINDINGS: PULMONARY ARTERIES: No demonstrated pulmonary embolism or arterial dissection. AORTA: There is atherosclerotic calcification of the aortic arch with tortuosity and elongation of the aortic arch and descending thoracic aorta. Normal in caliber. No evidence of dissection. GREAT VESSELS OF AORTIC ARCH: Unremarkable. Normal in caliber. No evidence of dissection. LUNGS AND PLEURAL SPACES: Mucous, fluid, or debris noted in the right bronchus. This may suggest an aspiration pneumonia. There is a large right pleural fusion. No mass. HEART: There are calcifications of the coronary arteries. No pericardial effusion. No signs of right heart strain, ratio of right ventricle to left ventricle measures less than 1. MEDIASTINUM: Unremarkable. No mediastinal or hilar adenopathy. Esophagus is unremarkable. No hiatal hernia. THYROID: Unremarkable. No thyroid lesions. BONES/JOINTS: There are degenerative changes of the shoulders. There are multi-level degenerative changes of the thoracic spine. SOFT TISSUES: Right mastectomy changes. TUBES, LINES AND DEVICES: There is a left PICC line in place. The tip is in the superior vena cava. CT/CTA Chest W/WO Contrast IMPRESSION: 1. Mucous, fluid, or debris noted in the right bronchus. This may suggest an aspiration pneumonia. 2. No demonstrated pulmonary embolism or arterial dissection. 3. There is a large right pleural fusion. Electronically Signed: Sharan Haddad MD at 17:28 EDT ,
--- NOTE | 2021-12-09 18:00 | PCM.HP.STD ---
Documented by User: Jenna Cabrera NP, [employer] 12/09/21 18:32 HPI - General General Date of Admission: 12/09/21 Date of Service: 12/09/21 Chief Complaint: Shortness of breath, weakness. HPI Narrative ALESSANDRO GUARDADO, is a 76 F who presents to the emergency room due to shortness of breath and weakness. She reports she is short of breath at baseline however this morning noted significant worsening shortness of breath. She also reports chronic cough which is similar to her baseline. She denies fever, chills. Denies other upper respiratory symptoms. Denies chest pain, palpitations. In the emergency room she was noted to be in atrial fibrillation with RVR. She denies history of A. fib. She reports tongue/mouth pain and states she was recently started on budesonide nebulizer. She was also recently placed on prednisone by pulmonary medicine 11/21/2021 for 10-day course. Patient reports a past medical history of lung cancer, chronic hypoxic respiratory failure secondary to asthma, type 2 diabetes mellitus, hypertension, anxiety/depression/ADD, morbid obesity, celiac disease, DORY, restless leg syndrome. Patient states she completed chemo and radiation for lung cancer and was in remission however recently found out her lung cancer has returned. She is scheduled to begin immunotherapy. She follows with Dr. Crouch, [facility]. [facility] Medical History Acute and chronic respiratory failure with hypoxia Acute bronchitis due to Rhinovirus Acute severe exacerbation of asthma Allergic rhinitis Anemia Anxiety Asthma Asthmatic bronchitis Body mass index (BMI) 50-59.9, adult Breast cancer Chronic diarrhea Chronic respiratory failure with hypoxia Dependence on supplemental oxygen Depression Diabetes mellitus, type II Former tobacco use GERD (gastroesophageal reflux disease) History of primary non-small cell carcinoma of right lung History of right breast cancer Hypertension Immunosuppressed due to chemotherapy Migraine headache Migraines Obstructive sleep apnea Osteoarthritis Sleep apnea Vitamin D deficiency Home Medications cholecalciferol (vitamin D3) 1,250 mcg (50,000 unit) capsule 50,000 unit PO SUWE@0800 SUPPLEMENT 06/01/17 [History Last Taken 12/07/21] albuterol sulfate 2.5 mg (3 mL) inhalation Q2H PRN PRN Dyspnea, wheezing ##1 11/26/17 [Rx Last Taken 12/07/21] albuterol sulfate 90 mcg/actuation aerosol inhaler (ProAir HFA) 2 puff inhalation Q6H PRN PRN Dyspnea/Wheezing/Sob 03/25/18 [History Last Taken 12/07/21] budesonide 32 mcg/actuation nasal spray (Rhinocort Allergy) 2 puff DAILY ALLERGIES 06/12/18 [History Last Taken 12/07/21] methylphenidate HCl 20 mg tablet,extended release 20 mg PO BID ADHD 03/01/19 [History Last Taken 12/07/21] fluticasone furoate 200 mcg-vilanterol 25 mcg/dose inhalation powder (Breo Ellipta) 2 inh inhalation DAILY sob 12/09/21 [History Last Taken 12/07/21] insulin regular hum U-500 conc (Humulin R U-500 (Conc) Insulin Kwikpen) 65 unit subcut DINNER diabetes 12/09/21 [History Last Taken Unknown] insulin regular hum U-500 conc (Humulin R U-500 (Conc) Insulin Kwikpen) 75 unit subcut DAILY diabetes 12/09/21 [History Last Taken 12/08/21 10:00] nadolol 40 mg tablet 40 mg PO DAILY heart 12/09/21 [History Last Taken 12/07/21] paroxetine HCl 40 mg tablet (Paxil) 40 mg PO DAILY mood 12/09/21 [History Last Taken 12/07/21] Allergy/AdvReac Type Severity Reaction Status Date / Time adhesive tape Allergy tears skin Verified 09/19/21 16:42 cefadroxil [From Duricef] Allergy Unknown Verified 09/19/21 16:42 gluten Allergy celiac Verified 09/19/21 16:42 disease mesalamine [From Asacol] Allergy Unknown Verified 09/19/21 16:42 omalizumab [From Xolair] Allergy Unknown Verified 09/19/21 16:42 Sulfa (Sulfonamide Allergy swelling Verified 09/19/21 16:42 Antibiotics) as an infant oxycodone AdvReac Vomiting Verified 09/19/21 16:42 Family History Father Cancer Myocardial infarction Mother Cancer Metastatic breast CA Surgical History H/O rectocele repair History of lymph node dissection of right axilla History of mastectomy History of partial hysterectomy Hx of bilateral cataract extraction Hx of carpal tunnel repair Social History (Reviewed 12/09/21 @ 18:06 by Jenna Cabrera [employer], [employer]) household members: spouse Smoking Status: Former smoker how long ago did patient quit smoking: Smoked x 2 years 1/2 ppd, quit ~ 50 years prior. alcohol intake: never substance use type: does not use ROS Constitutional Constitutional: Reports fatigue and weakness; Denies change in weight, chills or fever(s) Cardiovascular Cardiovascular: Denies chest pain, edema, lightheadedness, palpitations or syncope Respiratory/Chest Respiratory/Chest: Reports cough and dyspnea; Denies wheezing Gastrointestinal Gastrointestinal: Denies abdominal pain, constipation, diarrhea, nausea or vomiting Genitourinary Genitourinary: Denies burning urination, difficulty urinating, dysuria, hematuria, urinary frequency, urinary incontinence or urinary urgency Musculoskeletal Musculoskeletal: Denies back pain, joint pain or muscle weakness Integumentary Integumentary: Denies erythema, lesions, rash or wounds Neurologic Neurologic: Denies abnormal speech, confusion, dizziness, focal weakness, numbness, paresthesias, seizure-like activity or syncope Psychiatric Psychiatric: Denies anxiety or depression Hematologic/Lymphatic Hematologic/Lymphatic: Denies anemia, easy bleeding or easy bruising Allergic/Immunologic Allergic/Immunologic: Denies hives or asthma Vital Signs Vital Signs Vital Signs: 12/09/21 14:26 12/09/21 14:32 12/09/21 14:33 Temperature 96.0 F L Temperature Source Temporal Pulse Rate 154 H Respiratory Rate 30 H Respiratory Effort Short of Breath Labored Respiratory Depth Shallow Respiratory Pattern Tachypnea Blood Pressure 124/72 H Blood Pressure Mean 89 Blood Pressure Source Pulse Ox 100 Oxygen Delivery Method Non-Rebreather Non-Rebreather Oxygen Flow Rate (L/min) 10 10 12/09/21 15:42 12/09/21 15:51 12/09/21 17:30 Temperature 96 F L 97.6 F L Temperature Source Temporal Temporal Pulse Rate 132 H 141 H 132 H Respiratory Rate 24 H 22 H 22 H Respiratory Effort Respiratory Depth Respiratory Pattern Blood Pressure 90/68 104/94 H 106/77 Blood Pressure Mean 75 97 86 Blood Pressure Source Monitor Pulse Ox 98 99 98 Oxygen Delivery Method Nasal Cannula Nasal Cannula Nasal Cannula Oxygen Flow Rate (L/min) 6 6 6 12/09/21 17:47 12/09/21 17:54 Temperature 97.4 F L 97.4 F L Temperature Source Temporal Temporal Pulse Rate 133 H 133 H Respiratory Rate 20 H 20 H Respiratory Effort Respiratory Depth Respiratory Pattern Blood Pressure 117/77 117/77 Blood Pressure Mean 90 90 Blood Pressure Source Monitor Pulse Ox 98 97 Oxygen Delivery Method Nasal Cannula Nasal Cannula Oxygen Flow Rate (L/min) 6 6 Weight Weight: 283 lb 15.286 oz Body Mass Index (BMI) 50.3 Physical Exam Const alert and oriented x3 Constitutional Narrative: Conversational dyspnea. Nutritional Appearance: obese HEENT normocephalic Mouth: dry mucous membranes and other Other Details: Oral thrush present Eyes PERRL, EOMs intact bilaterally and conjunctivae normal Neck no lymphadenopathy Resp Auscultation: rhonchi right upper and diminished lung sounds Cardio no murmurs Cardio Narrative: A. fib with RVR Peripheral Pulses: pulses 2+ throughout GI normal to inspection, nondistended, normoactive bowel sounds, non-tender and non-distended Extremity normal to inspection Skin no rashes or lesions noted Lesions: no lesions Rashes: no rashes Trauma: no lacerations or abrasions Neuro CN's II-XII intact bilaterally, no focal motor deficits, no sensory deficits noted and deep tendon reflexes 2+ bilaterally Psych mental status grossly normal and affect normal Results Lab / Micro Data Result Diagrams: 12/10/21 05:44 12/10/21 05:44 Labs: Laboratory Results - last 24 hr 12/09/21 14:40: WBC 16.3 H, RBC 4.60, Hgb 12.3, Hct 40.8, MCV 88.7, MCH 26.7 L, MCHC 30.1 L, RDW Std Deviation 49.1 H, RDW Coeff of Aniceto 15.2 H, Plt Count 349, MPV 9.6, Immature Gran % (Auto) 0.700, Neut % (Auto) 87.1 H, Lymph % (Auto) 4.7 L, [place] % (Auto) 5.2, Eos % (Auto) 2.1, Baso % (Auto) 0.2, Absolute Neuts (auto) 14.2 H, Absolute Lymphs (auto) 0.76 L, Nucleated RBC % 0 12/09/21 14:40: PT 14.0, INR 1.1, APTT 36.6 H 12/09/21 14:40: Sodium 139, Potassium 4.2, Chloride 100, Carbon Dioxide 34.0 H, Anion Gap 5, BUN 17, Creatinine 0.80, Estim Creat Clear Calc 50.26, Est GFR (MDRD) Af Amer 90, Est GFR (MDRD) Non-Af 74, BUN/Creatinine Ratio 21.2 H, Glucose 174 H, Calcium 9.4, Total Bilirubin 0.50, AST 21, ALT 37, Alkaline Phosphatase 143 H, Troponin I High Sens 22, Total Protein 6.5, Albumin 2.3 L, Globulin 4.2, Albumin/Globulin Ratio 0.5 L 12/09/21 14:40: Lactic Acid 1.9 Micro: Microbiology 12/09/21 15:10 Nasal Secretion SARS-CoV-2 Antigen (Rapid) - Final ABG Data ABG results: ABG 12/09/21 15:32 Specimen Type NANCY VBG pH 7.43 H VBG pO2 38 VBG HCO3 32 H VBG Total CO2 34 H VBG O2 Sat (Calc) 73 H VBG Base Excess 8 H POC Mix VBG pCO2 Pt Tmp 49.2 Radiology Impression Chest X-Ray 12/09/21 15:00 IMPRESSION: Progressive infiltrate in the right upper lobe. Stable blunting of the right constrained angle with volume loss in the posterior medial segment of the right lower lung. Electronically Signed: Salazar Garcia MD at 15:29 EDT , Humerus X-Ray 12/09/21 16:51 IMPRESSION: Along the left humerus there is contrast extravasation around the catheter. Electronically Signed: Sharan Haddad MD at 17:21 EDT , Chest CTA 12/09/21 17:00 IMPRESSION: 1. Mucous, fluid, or debris noted in the right bronchus. This may suggest an aspiration pneumonia. 2. No demonstrated pulmonary embolism or arterial dissection. 3. There is a large right pleural fusion. Electronically Signed: Sharan Haddad MD at 17:28 EDT , Assessment & Plan Assessment/Plan (1) Atrial fibrillation with RVR: (2) Aspiration pneumonitis: PLAN: Plan 1. New onset atrial fibrillation with RVR-initiated on IV amiodarone per ED. Continue home nadolol regimen. Oral Eliquis. Check TSH, mag. Obtain echocardiogram. 2. Possible aspiration pneumonia-CTA with mucus, fluid or debris in the right bronchus, possible aspiration pneumonia. White count elevated however patient has been on oral steroids. Afebrile. IV Zosyn. Obtain sputum culture. Albuterol and DuoNeb aerosols. 2. Oral thrush-nystatin swish and swallow. 3. Stage III lung cancer- Follows with Dr. Crouch. Previously completed chemo and radiation. To begin immunotherapy per patient. 4. Asthma with chronic hypoxic respiratory failure-wears 4 L nasal cannula at baseline. Increased to 6 L on admission due to shortness of breath however patient not noted to be hypoxic on baseline oxygen. Continue supplemental oxygen to maintain O2 above 90%, wean to baseline as tolerated. As needed albuterol/DuoNeb aerosols. 5. Type 2 diabetes [id number] with sliding scale insulin. 6. Hypertension-continue nadolol. 7. Anxiety/depression/ADD- on Paxil. 8. DORY-reports noncompliance with CPAP. 9. Morbid obesity-encouraged diet and lifestyle modifications. DVT prophylaxis-Eliquis This patient was seen by HIRAL Alarcon under the supervision of Dr. Childress. Time spent examining patient, reviewing data and subsequent management of care: 28 minutes Documented by User: Dr. Isreal Childress MD 12/10/21 13:22 [facility] - General General Date of Admission: 12/09/21 [facility] Medical History Acute and chronic respiratory failure with hypoxia Acute bronchitis due to Rhinovirus Acute severe exacerbation of asthma Allergic rhinitis Anemia Anxiety Asthma Asthmatic bronchitis Body mass index (BMI) 50-59.9, adult Breast cancer Chronic diarrhea Chronic respiratory failure with hypoxia Dependence on supplemental oxygen Depression Diabetes mellitus, type II Former tobacco use GERD (gastroesophageal reflux disease) History of primary non-small cell carcinoma of right lung History of right breast cancer Hypertension Immunosuppressed due to chemotherapy Migraine headache Migraines Obstructive sleep apnea Osteoarthritis Sleep apnea Vitamin D deficiency Home Medications cholecalciferol (vitamin D3) 1,250 mcg (50,000 unit) capsule 50,000 unit PO SUWE@0800 SUPPLEMENT 06/01/17 [History Last Taken 12/07/21] albuterol sulfate 2.5 mg (3 mL) inhalation Q2H PRN PRN Dyspnea, wheezing ##1 11/26/17 [Rx Last Taken 12/07/21] albuterol sulfate 90 mcg/actuation aerosol inhaler (ProAir HFA) 2 puff inhalation Q6H PRN PRN Dyspnea/Wheezing/Sob 03/25/18 [History Last Taken 12/07/21] budesonide 32 mcg/actuation nasal spray (Rhinocort Allergy) 2 puff DAILY ALLERGIES 06/12/18 [History Last Taken 12/07/21] methylphenidate HCl 20 mg tablet,extended release 20 mg PO BID ADHD 03/01/19 [History Last Taken 12/07/21] fluticasone furoate 200 mcg-vilanterol 25 mcg/dose inhalation powder (Breo Ellipta) 2 inh inhalation DAILY sob 12/09/21 [History Last Taken 12/07/21] insulin regular hum U-500 conc (Humulin R U-500 (Conc) Insulin Kwikpen) 65 unit subcut DINNER diabetes 12/09/21 [History Last Taken Unknown] insulin regular hum U-500 conc (Humulin R U-500 (Conc) Insulin Kwikpen) 75 unit subcut DAILY diabetes 12/09/21 [History Last Taken 12/08/21 10:00] nadolol 40 mg tablet 40 mg PO DAILY heart 12/09/21 [History Last Taken 12/07/21] paroxetine HCl 40 mg tablet (Paxil) 40 mg PO DAILY mood 12/09/21 [History Last Taken 12/07/21] Allergy/AdvReac Type Severity Reaction Status Date / Time adhesive tape Allergy tears skin Verified 09/19/21 16:42 cefadroxil [From Duricef] Allergy Unknown Verified 09/19/21 16:42 gluten Allergy celiac Verified 09/19/21 16:42 disease mesalamine [From Asacol] Allergy Unknown Verified 09/19/21 16:42 omalizumab [From Xolair] Allergy Unknown Verified 09/19/21 16:42 Sulfa (Sulfonamide Allergy swelling Verified 09/19/21 16:42 Antibiotics) as an infant oxycodone AdvReac Vomiting Verified 09/19/21 16:42 Family History (Reviewed 12/09/21 @ 18:06 by Jenna Cabrera [employer], [employer]) Father Cancer Myocardial infarction Mother Cancer Metastatic breast CA Surgical History H/O rectocele repair History of lymph node dissection of right axilla History of mastectomy History of partial hysterectomy Hx of bilateral cataract extraction Hx of carpal tunnel repair Social History household members: spouse Smoking Status: Former smoker how long ago did patient quit smoking: Smoked x 2 years 1/2 ppd, quit ~ 50 years prior. alcohol intake: never substance use type: does not use Results Lab / Micro Data Result Diagrams: 12/10/21 05:44 12/10/21 05:44 Assessment & Plan Assessment/Plan (1) Atrial fibrillation with RVR: (2) Aspiration pneumonitis: Charges/Coding Addendum Addendum: Addendum: Dr. Childress I personally examined the patient and reviewed the chart. I agree with the above. 76-year-old female presents to the hospital with increasing shortness of breath. She does have a history of needing chronic oxygen secondary to COPD and lung cancer. She initially had treatment for the lung cancer but it does appear that her recent PET scan demonstrated activity again so she has now on immunotherapy. She does wear chronic oxygen at 4 L however in the ER she needed to be bumped up to 6 L. She was also found to be in A. fib with RVR which is a new diagnosis for her. She will be started on Eliquis for her coagula issue and and it is possible that it is the ER ER that is because of her significant shortness of breath. We will continue her on amiodarone and also her nadolol to try to get her heart rate under control. If necessary could transition to metoprolol twice daily dosing, will obtain an echo and if we do have difficulty controlling her heart rate may need to get cardiology involved. I also had a 25-minute discussion with her on advance care planning secondary to palliative care versus hospice care given the recurrence of her cancer and her other medical comorbidities. She would like to proceed with palliative care if possible. Clinical time spent in all aspects of patient care: 50 minutes Visit Charges Inpatient E&M: 45689 Init Hosp L3 Procedures Hospitalists Procedures: 67301 Advncd Care Plan 30 Min
--- NOTE | 2021-12-09 18:45 | ECHOCS_ITS ---
Reason For Study: Afib/Flutter Procedure This was a 2D Doppler, Color Flow transthoracic echocardiogram. Technically difficult due to patients body habiuts. Contrast injection performed. The study was technically difficult. Contrast injection was performed. Exam performed portable in patient room. Left Ventricle Based upon the 2D echocardiographic and contrast enhanced images obtained there appears to be grossly normal left ventricular size, wall motion, and systolic function. The estimated ejection fraction is 65 %. Unable to assess diastolic dysfunction. Right Ventricle Based upon the 2D echocardiographic images obtained there appears to be grossly normal right ventricular size and systolic function. Atria The left atrium is not well visualized. The right atrium is not well visualized. No doppler evidence for ASD. Mitral Valve Mitral valve not well visualized. Tricuspid Valve The tricuspid valve is not well visualized. Aortic Valve The aortic valve is not well visualized. Pulmonic Valve The pulmonic valve is not well visualized. Great Vessels The aortic root is not well visualized. Pericardium/Pleural No pericardial effusion. Medication Diluted definity 1ml given slow IV push to enhance endocardial definition. Doppler Measurements & Calculations MV E max jose: 81.2 cm/sec Ao V2 max: 143.4 cm/sec LV V1 max: 87.4 cm/sec Ao max P.2 mmHg LV V1 max P.1 mmHg PA V2 max: 62.8 cm/sec ECHO/Echo Complete W/ Contrast Interpretation Summary The study was technically difficult. Contrast injection was performed. Based upon the 2D echocardiographic and contrast enhanced images obtained there appears to be grossly normal left ventricular size, wall motion, and systolic function. The estimated ejection fraction is 65 %. Unable to assess diastolic dysfunction. Ordering Physician: Jenna Cabrera Referring Physician: Senait Jay M.D. Performed By: Fidel Dewitt RCS
[2021-12-09] MEDS: Ipratropium/Albuterol Sulfate 3 ML AMPUL.NEB INHALATION (19:46)
--- NOTE | 2021-12-09 19:49 | CPS ---
pt refusing Pulmicort, states it makes her sick
[2021-12-09] MEDS: Nadolol 40 MG Tablet PO (20:29)
[2021-12-09] MEDS: hydrALAZINE 10 MG Tablet PO (21:51)
[2021-12-09] MEDS: APIXABAN 5 MG TABLET PO (21:51)
[2021-12-09] MEDS: NYSTATIN 500,000 UNIT/5 ML UDC 500000 UNIT PO (21:51)
[2021-12-09] MEDS: Amiodarone 360 MG in Dextrose 5% Viaflo Bag 192.8 ML 16.7 MG CONT INF (22:00)
[2021-12-10] VITALS (25 sets, daily range): BP systolic 103–170; BP diastolic 54–99; PULSE 71–96; RESP 18–27; TEMP 35.7–37.1; O2SAT 93–100
[2021-12-10 00:06] LABS: Bedside Glucose 58 mg/dL (74-106)
[2021-12-10 00:15] LABS: Bedside Glucose 83 mg/dL (74-106)
[2021-12-10 01:55] LABS: Bedside Glucose 136 mg/dL (74-106)
[2021-12-10 03:28] LABS: BNP,B-Type NATRIURETIC PEPTIDE 259.7 pg/mL (0-100)
[2021-12-10] MEDS: hydrALAZINE 10 MG Tablet PO ×3 (05:45→21:07)
[2021-12-10 06:50] LABS: Bedside Glucose 144 mg/dL (74-106)
[2021-12-10 07:21] LABS: Absolute Lymphocyte Count 0.68 X10^3/uL (0.83-4.51); Absolute Neutrophil Count 9.8 X10^3/uL (2.0-7.7); Basophil# 0.04 X10^3/uL; Basophil% 0.3 % (0-1); Eosinophil# 0.44 X10^3/uL; Eosinophils% 3.8 % (0-5); Hematocrit 38.3 % (37-47); Hemoglobin 11.7 g/dL (12.0-15.0); Lymphocyte # 0.68 X10^3/ul (0.83-4.51); Lymphocyte % 5.8 % (19-41); Mean Corp Hgb Conc 30.5 g/dL (32-36); Mean Corpuscular Hgb 26.8 pg (27.0-32.0); Mean Corpuscular Volume 87.8 fL (81-99); Mean Platelet Vol. 9.7 fl (6.2-12.0); Monocyte# 0.67 X10^3/uL; Monocyte% 5.7 % (0-10); NRBC Flagged by Analyzer 0 % (0-5); Neutrophil # 9.75 X10^3/uL (2.7-7.7); Neutrophil % 83.7 % (47-70); Platelet Count 286 K/mm3 (150-450); RBC Distribution Width CV 15.3 % (11.6-14.6); RBC Distribution Width SD 49.4 fl (35.1-43.9); Red Blood Count 4.36 M/mm3 (4.2-5.4); White Blood Count 11.7 K/mm3 (4.4-11.0)
[2021-12-10 08:09] LABS: Anion Gap 5 (5-15); BUN 18 mg/dL (7-18); Calcium,Total 9.8 mg/dL (8.5-10.1); Chloride 100 mmol/L (98-107); Creatinine, Serum 0.75 mg/dL (0.55-1.02); EST Glomerular Filtration Rate 80 mL/min (>60); Est Glom Filt Rate - Afr Amer 97 mL/min (>60); Estimated Creatinine Clearance 40.21 ml/min; Glucose 180 mg/dL (74-106); Potassium 3.7 mmol/L (3.5-5.1); Sodium Level 137 mmol/L (136-145)
--- NOTE | 2021-12-10 09:58 | CASEMGMT ---
Addendum entered by Amparo Osuna 12/10/21 11:15: Per palliative, pt's chart was closed in July 2021 d/t no response from pt. Dr. Childress aware and would like referral re-sent as pt's cancer has returned and pt is agreeable. Referral e-mailed to [facility]. Ginger SAN CM Original Note: Dr. Childress would like palliative referral for pt and per charting, referral was sent while inpt 04/2021 and pt was seen by palliative [facility] WORKER at that time. Message left with palliative to see if pt is active with palliative or if she declined services once home. CM to follow. Ginger SAN CM
[2021-12-10] MEDS: Amiodarone 360 MG in Dextrose 5% Viaflo Bag 192.8 ML 16.7 MG CONT INF (10:05)
[2021-12-10] MEDS: Paroxetine 20 MG Tablet 40 MG PO (10:06)
[2021-12-10] MEDS: APIXABAN 5 MG TABLET PO ×2 (10:06→21:07)
[2021-12-10] MEDS: NYSTATIN 500,000 UNIT/5 ML UDC 500000 UNIT PO ×4 (10:06→21:08)
--- NOTE | 2021-12-10 10:25 | CASEMGMT ---
JASWINDER PLASCENCIA ASSESSMENT: RN THAIS met w/pt for initial transition planning/care coordination assessment. JASWINDER PLASCENCIA introduced self and role at [facility]. Patient lying in bed, alert and oriented. Patient willing to participate in assessment and is able to answer all questions appropriately. Care providers, pharmacy, and demographics verified. PCP: Dr Jay Specialists: Dr Watters, sprayer hand; Dr Crouch, oncologist Preferred Pharmacy: [facility] Retail Insurance: [employer]are Prescription Benefit: yes Living Will/HPOA: Hasa both LW and HPOA, who is her daughter Santa Matute LNOK: dtr/POA, Santa, who lives in [place]. Pt states she is flying in from [place] and she thinks she may have already arrived this AM. Pt also has 2 sons, Manoj and Delvin. is still living, but pt states he has memory issues, he uses a walker @ baseline, and is not able to help pt much. Living Arrangements: Patient lives with in 2 story home with stair lift to second floor. Patient has 5 steps and railing to enter the home. Patient states she is usually independent for self-care at home, such as bathing and dressing, but d/t weakness/illness past few days, it has been difficult. DIL does grocery shopping, laundry, and cleaning. DIL and son prepare meals or pt and microwave food. Transportation: son, [employer] DME/HHC: Patient states she has shower chair, BSC, raised toilet, grab bars, walker, rollator, stair lift, pulse ox,functioning glucometer w/supplies, BP machine, nebulizer, home oxygen through [employer] @ 4 lpm, PAP which she states she only uses when she feels she needs it. She says she is supposed to bleed O2 in @ HS, but has not been doing this. She is not sure if she has the adaptor for O2 bleed in, either. Pt states she needs a W/C. She has no preference of DME company for same. Amparo Celeste PCU CM, made aware. SNF/HHC: Has been to [facility] in the past. She states, I'm not going again. Never. Has had [facility]HC in the past. She stated, I don't like that. I don't like other people coming into my house. She states she may consider HHC, if needed, but states, I don't know right now. She states may also be interested in OP therapy @ [facility], but states she would need to utilize [facility] Van for transportation to[facility]from [facility]. HH aide: Pt had [facility] up until about 3 weeks ago that they paid for [id number]. She states it was too expensive and they cancelled them. Plan: TBD by course of treatment and progress w/therapy. PT/OT evals pending. Neftaly CHAPAN RN CM
[2021-12-10] MEDS: Nadolol 40 MG Tablet PO (10:47)
--- NOTE | 2021-12-10 12:51 | PN.HOSP_ITS ---
Documented by User: Jenna Cabrera STRIP CUTTING MACHINE OPERATOR, STRIP CUTTING MACHINE OPERATOR-C 12/10/21 13:15 Subjective Subjective Patient seen and examined. Feels breathing is mildly improved. Continues to have cough. Denies fever, chills. Reports poor appetite and mild nausea. Objective Data Objective Data Vital Signs: Vital Signs Temp Pulse Resp BP Pulse Ox O2 Del Method O2 Flow Rate 98.3 F 88 23 H 125/71 H 100 Nasal Cannula 3.5 12/10/21 08:00 12/10/21 09:00 12/10/21 09:00 12/10/21 09:00 12/10/21 09:00 12/10/21 09:00 12/10/21 10:08 Oxygen Flow Rate (L/min) 3.5 Oxygen Delivery Method Nasal Cannula Weight: 286 lb 9.615 oz Body Mass Index (BMI) 50.8 Intake & Output: Intake and Output for Last 24 Hours 12/08/21 12/09/21 12/10/21 23:59 23:59 23:59 Intake Total 367.70 / 624.40 1113.3 / 1113.3 Output Total 600 / 600 Balance 367.70 / 324.40 513.3 / 513.3 Lab / Micro Data Result Diagrams: 12/10/21 05:44 12/10/21 05:44 Labs: Laboratory Results - last 24 hr 12/09/21 14:40: WBC 16.3 H, RBC 4.60, Hgb 12.3, Hct 40.8, MCV 88.7, MCH 26.7 L, MCHC 30.1 L, RDW Std Deviation 49.1 H, RDW Coeff of Aniceto 15.2 H, Plt Count 349, MPV 9.6, Immature Gran % (Auto) 0.700, Neut % (Auto) 87.1 H, Lymph % (Auto) 4.7 L, Crosby % (Auto) 5.2, Eos % (Auto) 2.1, Baso % (Auto) 0.2, Absolute Neuts (auto) 14.2 H, Absolute Lymphs (auto) 0.76 L, Nucleated RBC % 0 12/09/21 14:40: PT 14.0, INR 1.1, APTT 36.6 H 12/09/21 14:40: Sodium 139, Potassium 4.2, Chloride 100, Carbon Dioxide 34.0 H, Anion Gap 5, BUN 17, Creatinine 0.80, Estim Creat Clear Calc 50.26, Est GFR (MDRD) Af Amer 90, Est GFR (MDRD) Non-Af 74, BUN/Creatinine Ratio 21.2 H, Glucose 174 H, Calcium 9.4, Total Bilirubin 0.50, AST 21, ALT 37, Alkaline Phosphatase 143 H, Troponin I High Sens 22, Total Protein 6.5, Albumin 2.3 L, Globulin 4.2, Albumin/Globulin Ratio 0.5 L 12/09/21 14:40: Lactic Acid 1.9 12/09/21 14:40: B-Natriuretic Peptide 259.7 H 12/09/21 23:55: POC Glucose 58 L 12/10/21 00:11: POC Glucose 83 12/10/21 01:52: POC Glucose 136 H 12/10/21 05:44: WBC 11.7 H, RBC 4.36, Hgb 11.7 L, Hct 38.3, MCV 87.8, MCH 26.8 L , MCHC 30.5 L, RDW Std Deviation 49.4 H, RDW Coeff of Aniceto 15.3 H, Plt Count 286, MPV 9.7, Immature Gran % (Auto) 0.700, Neut % (Auto) 83.7 H, Lymph % (Auto) 5.8 L, Crosby % (Auto) 5.7, Eos % (Auto) 3.8, Baso % (Auto) 0.3, Absolute Neuts (auto) 9.8 H, Absolute Lymphs (auto) 0.68 L, Nucleated RBC % 0 12/10/21 05:44: Sodium 137, Potassium 3.7, Chloride 100, Carbon Dioxide 32.0, Anion Gap 5, BUN 18, Creatinine 0.75, Estim Creat Clear Calc 40.21, Est GFR (MDRD) Af Amer 97, Est GFR (MDRD) Non-Af 80, BUN/Creatinine Ratio 24.0 H, Glucose 180 H, Calcium 9.8 12/10/21 06:45: POC Glucose 144 H Micro: Microbiology 12/09/21 15:10 Nasal Secretion SARS-CoV-2 Antigen (Rapid) - Final ABG Data ABG results: ABG 12/09/21 15:32 Specimen Type NANCY VBG pH 7.43 H VBG pO2 38 VBG HCO3 32 H VBG Total CO2 34 H VBG O2 Sat (Calc) 73 H VBG Base Excess 8 H POC Mix VBG pCO2 Pt Tmp 49.2 Radiography Diagnostic Testing: Radiology Impression Chest X-Ray 12/09/21 15:00 IMPRESSION: Progressive infiltrate in the right upper lobe. Stable blunting of the right constrained angle with volume loss in the posterior medial segment of the right lower lung. Electronically Signed: Salazar Garcia MD at 15:29 EDT , Humerus X-Ray 12/09/21 16:51 IMPRESSION: Along the left humerus there is contrast extravasation around the catheter. Electronically Signed: Sharan Haddad MD at 17:21 EDT , Chest CTA 12/09/21 17:00 IMPRESSION: 1. Mucous, fluid, or debris noted in the right bronchus. This may suggest an aspiration pneumonia. 2. No demonstrated pulmonary embolism or arterial dissection. 3. There is a large right pleural fusion. Electronically Signed: Sharan Haddad MD at 17:28 EDT , Physical Exam Const alert and oriented x3 Orientation / Consciousness: awake, oriented to person, oriented to place and oriented to time HEENT normocephalic HEENT Narrative: oral thrush present Mouth: dry mucous membranes Eyes PERRL, EOMs intact bilaterally and conjunctivae normal Neck no lymphadenopathy Resp Auscultation: rhonchi and diminished lung sounds Cardio Cardio Narrative: A. fib, rate now controlled Peripheral Pulses: pulses 2+ throughout GI normal to inspection, nondistended, normoactive bowel sounds, non-tender and non-distended Extremity normal to inspection Skin no rashes or lesions noted Lesions: no lesions Rashes: no rashes Trauma: no lacerations or abrasions Neuro CN's II-XII intact bilaterally, no focal motor deficits, no sensory deficits noted and deep tendon reflexes 2+ bilaterally Psych mental status grossly normal and affect normal Assessment & Plan Assessment/Plan (1) Atrial fibrillation with RVR: (2) Aspiration pneumonitis: PLAN: Plan 1.? New onset atrial fibrillation with RVR-IV amiodarone.? Continue home nadolol regimen.? Oral Eliquis.? Echocardiogram pending. 2.? Probable aspiration pneumonia-CTA with mucus, fluid or debris in the right bronchus, possible aspiration pneumonia. IV Zosyn.? Obtain sputum culture.? Albuterol and DuoNeb aerosols. 2.? Oral thrush-nystatin swish and swallow. 3. Stage III lung cancer- Follows with Dr. Crouch. Previously completed chemo and radiation. To begin immunotherapy per patient. 4. Asthma with chronic hypoxic respiratory failure-wears 4 L nasal cannula at baseline.? Continue supplemental oxygen to maintain O2 above 90%, wean to baseline as tolerated.? As needed albuterol/DuoNeb aerosols. 5. Type 2 diabetes [id number] with sliding scale insulin. 6. Hypertension-continue nadolol. 7. Anxiety/depression/ADD- on Paxil. 8. DORY-reports noncompliance with CPAP. 9. Morbid obesity-encouraged diet and lifestyle modifications. DVT prophylaxis-Eliquis This patient was seen by HIRAL Alarcon under the supervision of Dr. Childress. Time spent examining patient, reviewing data and subsequent management of care: 16 minutes Documented by User: Dr. Isreal Childress MD 12/10/21 13:25 Objective Data Lab / Micro Data Result Diagrams: 12/10/21 05:44 12/10/21 05:44 Assessment & Plan Assessment/Plan (1) Atrial fibrillation with RVR: (2) Aspiration pneumonitis: Charges/Coding Addendum Addendum: Dr. Kotsonis I personally examined the patient and reviewed the chart. I agree with the above.? 76-year-old female presents to the hospital with increasing shortness of breath.? She does have a history of needing chronic oxygen secondary to COPD and lung cancer.? She initially had treatment for the lung cancer but it does appear that her recent PET scan demonstrated activity again so she has now on immunotherapy.? She does wear chronic oxygen at 4 L however in the ER she needed to be bumped up to 6 L.? She was also found to be in A. fib with RVR which is a new diagnosis for her.? She will be started on Eliquis for her coagula issue and and it is possible that it is the ER ER that is because of her significant s hortness of breath.? We will continue her on amiodarone and also her nadolol to try to get her heart rate under control.? If necessary could transition to metoprolol twice daily dosing, will obtain an echo and if we do have difficulty controlling her heart rate may need to get cardiology involved.? I also had a 25-minute discussion with her on advance care planning secondary to palliative care versus hospice care given the recurrence of her cancer and her other medical comorbidities.? She would like to proceed with palliative care if possible.? Clinical time spent in all aspects of patient care: 50 minutes 12/10/2021: Heart rate is under control but she does not feel well, she feels a bit nauseated. Her white count was elevated yesterday but this is likely due to oral steroids that she was taking however she does have a previous history of pseudomonal pneumonia therefore we will temporarily put her on Zosyn and monitor. We will obtain a sputum culture as well. Echo is pending. We will continue to monitor and make adjustments as necessary. Referral to palliative care is also pending at this time. Clinical time spent in all aspects of patient care: 18 minutes Visit Charges Inpatient E&M: 07111 Subs Hosp L2
--- NOTE | 2021-12-10 13:55 | CHAPLAIN ---
Type of Pastoral Visit _x__ Initial Visit ___ Follow-up Visit ___ On-call Visit ___ General Patient Visit ___ Spiritual Assessment ___ Family Conference ___ Bereavement ___ Rapid Response ___ Code Blue ___ Other (describe below) Pastoral Care Referral From _x__ Patient ___ Family ___ Nurse ___ Physician ___ Medical Staff Services Coordinator ___ Generating Station Mechanic ___ Other (describe below) Sacrament/Intervention _x__ Active listening ___ Anointing ___ Religion ___ Bereavement ___ Communion ___ [place] exploration ___ ___ Life review _x__ Prayer ___ Reconciliation ___ Sacrament of Sick _x_ Supportive presence ___ Wedding ___ Other (describe below) Pastoral Comments
[2021-12-10] MEDS: Insulin Lispro 100 UNIT/ML INSULN.PEN SC ×2 (15:55→21:08)
[2021-12-10 16:15] LABS: Bedside Glucose 223 mg/dL (74-106)
[2021-12-10] MEDS: Amiodarone 200 MG Tablet 100 MG PO ×2 (16:41→21:07)
[2021-12-10] MEDS: Acetaminophen 325 MG Tablet 650 MG PO (21:02)
[2021-12-10] MEDS: guaiFENesin 1,200 MG Tablet 1200 MG PO (21:07)
[2021-12-10] MEDS: 0.9% Saline Lock 10 ML Syringe IV (21:14)
[2021-12-10 21:40] LABS: Bedside Glucose 198 mg/dL (74-106)
[2021-12-11] VITALS (16 sets, daily range): BP systolic 91–137; BP diastolic 50–103; PULSE 73–86; RESP 16–82; TEMP 36.1–36.9; O2SAT 89–100
[2021-12-11 04:47] LABS: Absolute Lymphocyte Count 0.51 X10^3/uL (0.83-4.51); Absolute Neutrophil Count 8.1 X10^3/uL (2.0-7.7); Basophil# 0.05 X10^3/uL; Basophil% 0.5 % (0-1); Eosinophil# 0.35 X10^3/uL; Eosinophils% 3.6 % (0-5); Hematocrit 37.5 % (37-47); Hemoglobin 11.4 g/dL (12.0-15.0); Lymphocyte # 0.51 X10^3/ul (0.83-4.51); Lymphocyte % 5.3 % (19-41); Mean Corp Hgb Conc 30.4 g/dL (32-36); Mean Corpuscular Hgb 26.8 pg (27.0-32.0); Mean Platelet Vol. 9.1 fl (6.2-12.0); Monocyte# 0.55 X10^3/uL; Monocyte% 5.7 % (0-10); NRBC Flagged by Analyzer 0 % (0-5); Neutrophil # 8.12 X10^3/uL (2.7-7.7); Neutrophil % 84.3 % (47-70); POSITIVE DIFFERENTIAL YES; Platelet Count 248 K/mm3 (150-450); RBC Distribution Width CV 15.3 % (11.6-14.6); RBC Distribution Width SD 49.1 fl (35.1-43.9); Red Blood Count 4.26 M/mm3 (4.2-5.4); White Blood Count 9.6 K/mm3 (4.4-11.0)
[2021-12-11 04:51] LABS: Differential Indicated SCAN CRITERIA MET
[2021-12-11 05:13] LABS: Anion Gap 4 (5-15); BUN 17 mg/dL (7-18); BUN/Creat Ratio 23.6 RATIO (10-20); Calcium,Total 9.1 mg/dL (8.5-10.1); Chloride 102 mmol/L (98-107); Creatinine, Serum 0.72 mg/dL (0.55-1.02); EST Glomerular Filtration Rate 84 mL/min (>60); Est Glom Filt Rate - Afr Amer 102 mL/min (>60); Estimated Creatinine Clearance 40.21 ml/min; Glucose 183 mg/dL (74-106); Potassium 4.4 mmol/L (3.5-5.1); Sodium Level 137 mmol/L (136-145)
[2021-12-11 06:01] LABS: Differential Comment SCANNED
[2021-12-11] MEDS: Insulin Lispro 100 UNIT/ML INSULN.PEN SC ×4 (06:59→22:07)
[2021-12-11] MEDS: hydrALAZINE 10 MG Tablet PO ×2 (06:59→13:08)
[2021-12-11 07:25] LABS: Bedside Glucose 159 mg/dL (74-106)
[2021-12-11] MEDS: Amiodarone 200 MG Tablet 100 MG PO ×2 (08:23→22:07)
[2021-12-11] MEDS: guaiFENesin 1,200 MG Tablet 1200 MG PO ×2 (08:24→22:07)
[2021-12-11] MEDS: APIXABAN 5 MG TABLET PO ×2 (08:24→22:07)
[2021-12-11] MEDS: Nadolol 40 MG Tablet PO (08:24)
[2021-12-11] MEDS: NYSTATIN 500,000 UNIT/5 ML UDC 500000 UNIT PO ×3 (08:24→22:07)
[2021-12-11 11:25] LABS: Bedside Glucose 232 mg/dL (74-106)
--- NOTE | 2021-12-11 11:52 | PN.HOSP_ITS ---
Documented by User: LOAN PanC 12/11/21 12:08 Subjective Subjective Patient lying in bed asleep no distress noted. Patient does arouse when her name is said however she does not stay awake to answer questions very long Objective Data Objective Data Vital Signs: Vital Signs Temp Pulse Resp BP Pulse Ox O2 Del Method O2 Flow Rate 97.9 F 76 20 H 130/100 H 100 Nasal Cannula 3 12/11/21 08:20 12/11/21 11:00 12/11/21 08:20 12/11/21 08:20 12/11/21 08:20 12/11/21 08:37 12/11/21 08:37 Oxygen Flow Rate (L/min) 3 Oxygen Delivery Method Nasal Cannula Weight: 286 lb 9.615 oz Body Mass Index (BMI) 50.8 Intake & Output: Intake and Output for Last 24 Hours 12/09/21 12/10/21 12/11/21 23:59 23:59 23:59 Intake Total 367.70 / 624.40 1273.52 / 1273.52 100 / 100 Output Total 770 / 770 300 / 300 Balance 367.70 / 324.40 503.52 / 503.52 -200 / -200 Lab / Micro Data Result Diagrams: 12/11/21 04:39 12/11/21 04:39 Labs: Laboratory Results - last 24 hr 12/10/21 15:50: POC Glucose 223 H 12/10/21 20:58: POC Glucose 198 H 12/11/21 04:39: WBC 9.6, RBC 4.26, Hgb 11.4 L, Hct 37.5, MCV 88.0, MCH 26.8 L, MCHC 30.4 L, RDW Std Deviation 49.1 H, RDW Coeff of Aniceto 15.3 H, Plt Count 248, MPV 9.1, Immature Gran % (Auto) 0.600, Neut % (Auto) 84.3 H, Lymph % (Auto) 5.3 L, Brooks % (Auto) 5.7, Eos % (Auto) 3.6, Baso % (Auto) 0.5, Absolute Neuts (auto) 8.1 H, Absolute Lymphs (auto) 0.51 L, Nucleated RBC % 0, Differential Comment SCANNED 12/11/21 04:39: Sodium 137, Potassium 4.4, Chloride 102, Carbon Dioxide 31.0, Anion Gap 4 L, BUN 17, Creatinine 0.72, Estim Creat Clear Calc 40.21, Est GFR (MDRD) Af Amer 102, Est GFR (MDRD) Non-Af 84, BUN/Creatinine Ratio 23.6 H, Glucose 183 H, Calcium 9.1 12/11/21 06:59: POC Glucose 159 H 12/11/21 11:04: POC Glucose 232 H Micro: Microbiology 12/10/21 23:38 Sputum, Expectorated/Coughed Gram Stain - Final 12/09/21 15:10 Nasal Secretion SARS-CoV-2 Antigen (Rapid) - Final Radiography Diagnostic Testing: Radiology Impression Echocardiogram 12/09/21 18:45 Interpretation Summary The study was technically difficult. Contrast injection was performed. Based upon the 2D echocardiographic and contrast enhanced images obtained there appears to be grossly normal left ventricular size, wall motion, and systolic function. The estimated ejection fraction is 65 %. Unable to assess diastolic dysfunction. Ordering Physician: Jenna Cabrera Referring Physician: Senait Jay M.D. Performed By: Fidel Dewitt RCS Physical Exam Const oriented x3 and no apparent distress Orientation / Consciousness: lethargic HEENT head/scalp atraumatic and moist oral mucous membranes Head and Scalp: normocephalic Eyes conjunctivae normal and no scleral icterus Neck supple Resp normal respiratory effort Effort and Inspection: able to speak in complete sentences and symmetric chest movement Auscultation: diminished lung sounds Cardio regular rate, regular rhythm, S1 normal heart sound and S2 normal heart sound GI normal to inspection, nondistended, normoactive bowel sounds, soft to palpation and non-tender Inspection: central obesity and pannus present Extremity normal to inspection and full ROM Neuro oriented x3, moves all extremities, no focal motor deficits and no sensory deficits noted Psych affect normal Assessment & Plan Assessment/Plan (1) Atrial fibrillation with RVR: (2) Pneumonia: QUALIFIERS: Laterality: right Lung location: unspecified part of lung Pneumonia type: due to unspecified organism Qualified Code(s): J18.9 - Pneumonia, unspecified organism PLAN: Plan 1. New onset atrial fibrillation with RVR -Patient transition from IV to p.o. on 12/10/2021, tolerating well, heart rate controlled -Continue telemetry -Continue Eliquis 2. Probable aspiration pneumonia -Continue IV Zosyn -Sputum culture pending -Continue scheduled DuoNeb and as needed albuterol aerosol treatments 3. Oral thrush -Continue nystatin swish and swallow 4. Stage III lung cancer -Follows with Dr. Crouch -Patient waiting to start immunotherapy 5. Asthma with chronic hypoxic respiratory failure -Patient currently on 4 L nasal cannula which is her baseline -Continue albuterol and DuoNeb aerosol treatments 6. Type 2 diabetes mellitus -ACH S blood sugars with sliding scale insulin ordered 7. Hypertension -Vital signs per protocol, currently stable -Continue nadolol DVT prophylaxis-Eliquis This patient was seen by Vivian Olson NP-C under the supervision of Dr. Childress. 12 minutes spent in clinical coordination of patient's plan of care. Documented by User: Dr. Isreal Childress MD 12/11/21 12:40 Objective Data Lab / Micro Data Result Diagrams: 12/11/21 04:39 12/11/21 04:39 Assessment & Plan Assessment/Plan (1) Atrial fibrillation with RVR: (2) Pneumonia: QUALIFIERS: Laterality: right Lung location: unspecified part of lung Pneumonia type: due to unspecified organism Qualified Code(s): J18.9 - Pneumonia, unspecified organism Charges/Coding Addendum Addendum: Dr. Childress I personally examined the patient and reviewed the chart. I agree with the above.? 76-year-old female presents to the hospital with increasing shortness of breath.? She does have a history of needing chronic oxygen secondary to COPD and lung cancer.? She initially had treatment for the lung cancer but it does appear that her recent PET scan demonstrated activity again so she has now on immunotherapy.? She does wear chronic oxygen at 4 L however in the ER she needed to be bumped up to 6 L.? She was also found to be in A. fib with RVR which is a new diagnosis for her.? She will be started on Eliquis for her coagula issue and and it is possible that it is the ER ER that is because of her significant shortness of breath.? We will continue her on amiodarone and also her nadolol to try to get her heart rate under control.? If necessary could transition to metoprolol twice daily dosing, will obtain an echo and if we do have difficulty controlling her heart rate may need to get cardiology involved.? I also had a 25-minute discussion with her on advance care planning secondary to palliative care versus hospice care given the recurrence of her cancer and her other medical comorbidities.? She would like to proceed with palliative care if possible.? Clinical time spent in all aspects of patient care: 50 minutes 12/10/2021:?Heart rate is under control but she does not feel well, she feels a bit nauseated.? Her white count was elevated yesterday but this is likely due to oral steroids that she was taking however she does have a previous history of pseudomonal pneumonia therefore we will temporarily put her on Zosyn and mo nitor.? We will obtain a sputum culture as well.? Echo is pending.? We will continue to monitor and make adjustments as necessary.? Referral to palliative care is also pending at this time.? Clinical time spent in all aspects of patient care: 18 minutes 12/11/2021: Oxygen requirement is back down to her baseline and her heart rate is now under control. She is tolerating the Eliquis well. Sputum culture is pending, in the meantime we will continue with Zosyn. Echo was unremarkable, and we will still try to set her up with palliative care prior to discharge. Clinical time spent in all aspects of patient care: 15 minutes Visit Charges Inpatient E&M: 28494 Subs Hosp L2
[2021-12-11] MEDS: Ondansetron 4 MG/2 ML Vial IV (13:34)
[2021-12-11] MEDS: 0.9% Saline Lock 10 ML Syringe IV (13:34)
[2021-12-11 16:20] LABS: Bedside Glucose 229 mg/dL (74-106)
[2021-12-11 22:41] LABS: Bedside Glucose 186 mg/dL (74-106)
[2021-12-12] VITALS (15 sets, daily range): BP systolic 98–148; BP diastolic 45–95; PULSE 67–81; RESP 16–20; TEMP 36.1–37.1; O2SAT 88–99
--- NOTE | 2021-12-12 05:55 | RAD_ITS ---
EXAM: XR CHEST, 1 VIEW CLINICAL INDICATION: SOB TECHNIQUE: Frontal view of the chest. This report was created using [employer] report generation technology. COMPARISON: CTA December 09, 2021 showing large right pleural effusion and dense consolidation of much of the posterior right upper lobe with only small bronchograms, narrowing of the right mainstem bronchus, some patent airways in the right lower lobe, considerations include aspiration pneumonia and underlying neoplasm. Also prior chest radiographs including December 09 and November 24, 2021.. FINDINGS: LUNGS AND PLEURAL SPACES: Increased opacification of right upper lung field with sharply marginated inferior margin may be due to loculated fluid and lung consolidation. There is increased pleural effusion opacifying most of the right lung base and obscuring visualization of the right heart margin. Minimal aerated right lung central right thorax. Multiple metallic clips over the right chest. The left lung remains well aerated with minimal increased opacities at the lung base. No pneumothorax. HEART: Normal heart size based on the left heart margin, right is not seen. No mediastinal widening. MEDIASTINUM: Central airways and mediastinal contour are unremarkable. BONES/JOINTS: Unremarkable. SOFT TISSUES: Unremarkable. LINES: Stable left upper extremity PICC line. RAD/Chest 1 View (Portable) IMPRESSION: Increased right pleural effusion and increased opacification of the right upper lung field, with only a small residual section of aerated right lung in the mid thorax, worsened appearance since recent prior CTA and plain film. Electronically Signed: Stacy Johnson MD at 6:50 EDT ,
[2021-12-12] MEDS: hydrALAZINE 10 MG Tablet PO ×2 (06:14→21:14)
[2021-12-12] MEDS: Insulin Lispro 100 UNIT/ML INSULN.PEN SC ×3 (06:56→21:18)
[2021-12-12 06:57] LABS: Absolute Lymphocyte Count 0.59 X10^3/uL (0.83-4.51); Absolute Neutrophil Count 8.1 X10^3/uL (2.0-7.7); Basophil# 0.03 X10^3/uL; Basophil% 0.3 % (0-1); Eosinophil# 0.44 X10^3/uL; Eosinophils% 4.5 % (0-5); Hematocrit 35.7 % (37-47); Hemoglobin 11.2 g/dL (12.0-15.0); Lymphocyte # 0.59 X10^3/ul (0.83-4.51); Mean Corp Hgb Conc 31.4 g/dL (32-36); Mean Corpuscular Hgb 27.1 pg (27.0-32.0); Mean Corpuscular Volume 86.4 fL (81-99); Monocyte# 0.67 X10^3/uL; Monocyte% 6.8 % (0-10); NRBC Flagged by Analyzer 0 % (0-5); Neutrophil # 8.11 X10^3/uL (2.7-7.7); POSITIVE DIFFERENTIAL YES; Platelet Count 318 K/mm3 (150-450); RBC Distribution Width CV 15.2 % (11.6-14.6); RBC Distribution Width SD 47.8 fl (35.1-43.9); Red Blood Count 4.13 M/mm3 (4.2-5.4); White Blood Count 9.9 K/mm3 (4.4-11.0)
[2021-12-12 07:09] LABS: Differential Indicated SCAN CRITERIA MET
[2021-12-12 07:15] LABS: Bedside Glucose 186 mg/dL (74-106)
[2021-12-12 07:16] LABS: Differential Comment SCANNED
[2021-12-12 07:56] LABS: ALB/GLOB Ratio 0.5 RATIO (0.9-2.4); AST(SGOT) 18 U/L (15-37); Alanine Aminotransfer ALT/SGPT 31 U/L (13-56); Albumin, Serum 2.2 g/dL (3.2-5.0); Alkaline Phosphatase 151 U/L (45-117); Anion Gap 3 (5-15); BUN 21 mg/dL (7-18); BUN/Creat Ratio 27.8 RATIO (10-20); Calcium,Total 9.6 mg/dL (8.5-10.1); Chloride 101 mmol/L (98-107); Creatinine, Serum 0.76 mg/dL (0.55-1.02); EST Glomerular Filtration Rate 79 mL/min (>60); Est Glom Filt Rate - Afr Amer 96 mL/min (>60); Estimated Creatinine Clearance 40.21 ml/min; Globulin 4.4 g/dL (2.2-4.2); Glucose 173 mg/dL (74-106); Potassium 4.1 mmol/L (3.5-5.1); Protein, Total 6.6 g/dL (6.4-8.2); Sodium Level 138 mmol/L (136-145)
[2021-12-12] MEDS: Amiodarone 200 MG Tablet 100 MG PO ×2 (09:13→21:14)
[2021-12-12] MEDS: guaiFENesin 1,200 MG Tablet 1200 MG PO ×2 (09:14→21:14)
[2021-12-12] MEDS: Nadolol 40 MG Tablet PO (09:14)
[2021-12-12] MEDS: NYSTATIN 500,000 UNIT/5 ML UDC 500000 UNIT PO ×4 (09:14→21:14)
--- NOTE | 2021-12-12 10:08 | PN.HOSP_ITS ---
Documented by User: HIRAL Pan 12/12/21 10:12 Subjective Subjective Patient seen and examined. Patient lying in bed no distress noted. Patient states that she is short of breath however she is on her baseline O2 requirement of 4 L nasal cannula. Objective Data Objective Data Vital Signs: Vital Signs Temp Pulse Resp BP Pulse Ox O2 Del Method O2 Flow Rate 97.8 F 70 19 H 148/95 H 95 Nasal Cannula 4 12/12/21 08:24 12/12/21 08:24 12/12/21 08:24 12/12/21 08:24 12/12/21 08:24 12/12/21 08:35 12/12/21 08:35 FiO2 32 12/11/21 21:26 Oxygen Flow Rate (L/min) 4 Oxygen Delivery Method Nasal Cannula Weight: 286 lb 9.615 oz Body Mass Index (BMI) 50.8 Intake & Output: Intake and Output for Last 24 Hours 12/10/21 12/11/21 12/12/21 23:59 23:59 23:59 Intake Total 1273.52 / 1273.52 775 / 775 50 / 50 Output Total 770 / 770 600 / 700 250 / 250 Balance 503.52 / 503.52 175 / 75 -200 / -200 Lab / Micro Data Result Diagrams: 12/12/21 05:50 12/12/21 05:50 Labs: Laboratory Results - last 24 hr 12/11/21 11:04: POC Glucose 232 H 12/11/21 16:01: POC Glucose 229 H 12/11/21 22:06: POC Glucose 186 H 12/12/21 05:50: WBC 9.9, RBC 4.13 L, Hgb 11.2 L, Hct 35.7 L, MCV 86.4, MCH 27.1, MCHC 31.4 L, RDW Std Deviation 47.8 H, RDW Coeff of Aniceto 15.2 H, Plt Count 318, MPV 9.0, Immature Gran % (Auto) 0.400, Neut % (Auto) 82.0 H, Lymph % (Auto) 6.0 L, Sutton % (Auto) 6.8, Eos % (Auto) 4.5, Baso % (Auto) 0.3, Absolute Neuts (auto) 8.1 H, Absolute Lymphs (auto) 0.59 L, Nucleated RBC % 0, Differential Comment S CANNED 12/12/21 05:50: Sodium 138, Potassium 4.1, Chloride 101, Carbon Dioxide 34.0 H, Anion Gap 3 L, BUN 21 H, Creatinine 0.76, Estim Creat Clear Calc 40.21, Est GFR (MDRD) Af Amer 96, Est GFR (MDRD) Non-Af 79, BUN/Creatinine Ratio 27.8 H, Glucose 173 H, Calcium 9.6, Total Bilirubin 0.60, AST 18, ALT 31, Alkaline Phosphatase 151 H, Total Protein 6.6, Albumin 2.2 L, Globulin 4.4 H, Albumin/Globulin Ratio 0.5 L 12/12/21 06:54: POC Glucose 186 H Micro: Microbiology 12/10/21 23:38 Sputum, Expectorated/Coughed Gram Stain - Final 12/10/21 23:38 Sputum, Expectorated/Coughed Respiratory Culture - Preliminary GNR Poss Pseudomonas sp 12/09/21 15:10 Nasal Secretion SARS-CoV-2 Antigen (Rapid) - Final Radiography Diagnostic Testing: Radiology Impression Chest X-Ray 12/12/21 05:55 IMPRESSION: Increased right pleural effusion and increased opacification of the right upper lung field, with only a small residual section of aerated right lung in the mid thorax, worsened appearance since recent prior CTA and plain film. Electronically Signed: Stacy Johnson MD at 6:50 EDT , Physical Exam Const alert, oriented x3 and no apparent distress Orientation / Consciousness: awake and lethargic Nutritional Appearance: obese HEENT normocephalic, head/scalp atraumatic and moist oral mucous membranes Eyes conjunctivae normal and no scleral icterus Neck supple Resp normal respiratory effort Effort and Inspection: able to speak in complete sentences and symmetric chest movement Auscultation: rhonchi right upper and diminished lung sounds Cardio regular rate, regular rhythm, S1 normal heart sound and S2 normal heart sound Cardio Narrative: A. fib, rate now controlled Peripheral Pulses: pulses 2+ throughout GI normal to inspection, nondistended, normoactive bowel sounds, soft to palpation and non-tender Inspection: pannus present Extremity normal to inspection and full ROM Skin no rashes or lesions noted Lesions: no lesions Rashes: no rashes Trauma: no lacerations or abrasions Neuro oriented x3, moves all extremities, no focal motor deficits and no sensory deficits noted Psych mental status grossly normal and affect normal Assessment & Plan Assessment/Plan (1) Atrial fibrillation with RVR: (2) Pneumonia: QUALIFIERS: Laterality: right Lung location: unspecified part of lung Pneumonia type: due to unspecified organism Qualified Code(s): J18.9 - Pneumonia, unspecified organism PLAN: Plan 1. New onset atrial fibrillation with RVR -Patient transition from IV to p.o. on 12/10/2021, tolerating well, heart rate controlled -Continue telemetry -Eliquis on hold for thoracentesis 2. Probable aspiration pneumonia -Continue IV Zosyn -Sputum culture pending, preliminary shows possible Pseudomonas -Continue scheduled DuoNeb and as needed albuterol aerosol treatments 3. Oral thrush -Continue nystatin swish and swallow 4. Right pleural effusion -From previous image -Thoracentesis scheduled for Wednesday -Eliquis on hold pending thoracentesis 5. Stage III lung cancer -Follows with Dr. Crouch -Patient waiting to start immunotherapy 6. Asthma with chronic hypoxic respiratory failure -Patient currently on 4 L nasal cannula which is her baseline -Continue albuterol and DuoNeb aerosol treatments 7. Type 2 diabetes mellitus -ACH S blood sugars with sliding scale insulin ordered 8. Hypertension -Vital signs per protocol, currently stable -Continue nadolol DVT prophylaxis-Eliquis This patient was seen by Vivian Olson NP-C under the supervision of Dr. Childress. 13 minutes spent in clinical coordination of patient's plan of care. Documented by User: Dr. Isreal Childress MD 12/12/21 11:39 Objective Data Lab / Micro Data Result Diagrams: 12/12/21 05:50 12/12/21 05:50 Assessment & Plan Assessment/Plan (1) Atrial fibrillation with RVR: (2) Pneumonia: QUALIFIERS: Laterality: right Lung location: unspecified part of lung Pneumonia type: due to unspecified organism Qualified Code(s): J18.9 - Pneumonia, unspecified organism Charges/Coding Addendum Addendum: Dr. Childress I personally examined the patient and reviewed the chart. I agree with the above.? 76-year-old female presents to the hospital with increasing shortness of breath.? She does have a history of needing chronic oxygen secondary to COPD and lung cancer.? She initially had treatment for the lung cancer but it does appear that her recent PET scan demonstrated activity again so she has now on immunotherapy.? She does wear chronic oxygen at 4 L however in the ER she needed to be bumped up to 6 L.? She was also found to be in A. fib with RVR which is a new diagnosis for her.? She will be started on Eliquis for her coagula issue and and it is possible that it is the ER ER that is because of her significant shortness of breath.? We will continue her on amiodarone and also her nadolol to try to get her heart rate under control.? If necessary could transition to metoprolol twice daily dosing, will obtain an echo and if we do have difficulty controlling her heart rate may need to get cardiology involved.? I also had a 25-minute discussion with her on advance care planning secondary to palliative care versus hospice care given the recurrence of her cancer and her other medical comorbidities.? She would like to proceed with palliative care if possible.? Clinical time spent in all aspects of patient care: 50 minutes 12/10/2021:?Heart rate is under control but she does not feel well, she feels a bit nauseated.? Her white count was elevated yesterday but this is likely due to oral steroids that she was taking however she does have a previous history of pseudomonal pneumonia therefore we will temporarily put her on Zosyn and monitor.? We will obtain a sputum culture as well.? Echo is pending.? We will continue to monitor and make adjustments as necessary.? Referral to palliative care is also pending at this time.? Clinical time spent in all aspects of patient care: 18 minutes 12/11/2021:?Oxygen requirement is back down to her baseline and her heart rate is now under control.? She is tolerating the Eliquis well.? Sputum culture is pending, in the meantime we will continue with Zosyn.? Echo was unremarkable, and we will still try to set her up with palliative care prior to discharge.? Clinical time spent in all aspects of patient care: 15 minutes 12/12/2021: She has been having more of a productive cough and lung sounds have demonstrated some rhonchi so repeat chest x-ray was obtained this morning which demonstrated significantly increased pleural effusion on the right. Unfortunately she is still on Eliquis for her A. fib so this had to be held however will likely not be able to get a thoracentesis done until Wednesday. At that time we will have a diagnostic procedure done for cytology to evaluate the possibility of this being a malignant effusion. Clinical time spent in all aspects of patient care: 18 minutes Visit Charges Inpatient E&M: 24051 Subs Hosp L2
[2021-12-12 11:16] LABS: Bedside Glucose 231 mg/dL (74-106)
[2021-12-12] MEDS: 0.9% Saline Lock 10 ML Syringe IV ×2 (13:56→23:51)
[2021-12-12] MEDS: Ondansetron 4 MG/2 ML Vial IV ×2 (13:56→23:51)
[2021-12-12 16:30] LABS: Bedside Glucose 141 mg/dL (74-106)
[2021-12-12 22:00] LABS: Bedside Glucose 182 mg/dL (74-106)
[2021-12-13] VITALS (14 sets, daily range): BP systolic 110–143; BP diastolic 51–76; PULSE 62–95; RESP 18–20; TEMP 36.3–37.1; O2SAT 92–99
[2021-12-13] MEDS: hydrALAZINE 10 MG Tablet PO (05:17)
[2021-12-13] MEDS: Insulin Lispro 100 UNIT/ML INSULN.PEN SC ×4 (06:50→22:59)
[2021-12-13 07:10] LABS: Bedside Glucose 207 mg/dL (74-106)
[2021-12-13] MEDS: Ondansetron 4 MG/2 ML Vial IV (08:32)
[2021-12-13] MEDS: 0.9% Saline Lock 10 ML Syringe IV (08:32)
--- NOTE | 2021-12-13 09:13 | PCM.PN.HOSP ---
Documented by User: HIRAL Pan 12/13/21 09:18 Subjective Subjective Patient seen and examined. Patient lying in bed resting eyes closed no distress noted. Objective Data Objective Data Vital Signs: Vital Signs Temp Pulse Resp BP Pulse Ox O2 Del Method O2 Flow Rate 98.4 F 83 20 H 123/65 H 97 Nasal Cannula 4 12/13/21 08:25 12/13/21 08:25 12/13/21 08:25 12/13/21 08:25 12/13/21 08:25 12/13/21 08:25 12/13/21 08:25 FiO2 32 12/11/21 21:26 Oxygen Flow Rate (L/min) 4 Oxygen Delivery Method Nasal Cannula Weight: 286 lb 9.615 oz Body Mass Index (BMI) 50.8 Intake & Output: Intake and Output for Last 24 Hours 12/11/21 12/12/21 12/13/21 23:59 23:59 23:59 Intake Total 775 / 775 625 / 1105 630 / 630 Output Total 600 / 700 425 / 525 200 / 200 Balance 175 / 75 200 / 580 430 / 430 Lab / Micro Data Result Diagrams: 12/12/21 05:50 12/12/21 05:50 Labs: Laboratory Results - last 24 hr 12/12/21 10:47: POC Glucose 231 H 12/12/21 16:02: POC Glucose 141 H 12/12/21 21:04: POC Glucose 182 H 12/13/21 06:48: POC Glucose 207 H Micro: Microbiology 12/10/21 23:38 Sputum, Expectorated/Coughed Gram Stain - Final 12/10/21 23:38 Sputum, Expectorated/Coughed Respiratory Culture - Final Pseudomonas aeroginosa 12/09/21 15:10 Nasal Secretion SARS-CoV-2 Antigen (Rapid) - Final Physical Exam Const alert, oriented x3 and no apparent distress Orientation / Consciousness: awake and lethargic Nutritional Appearance: obese HEENT normocephalic, head/scalp atraumatic and moist oral mucous membranes Eyes conjunctivae normal and no scleral icterus Neck supple Resp normal respiratory effort Effort and Inspection: able to speak in complete sentences and symmetric chest movement Auscultation: rhonchi right upper and diminished lung sounds Cardio regular rate, regular rhythm, S1 normal heart sound and S2 normal heart sound Cardio Narrative: A. fib, rate now controlled Peripheral Pulses: pulses 2+ throughout GI normal to inspection, nondistended, normoactive bowel sounds, soft to palpation and non-tender Inspection: central obesity and pannus present Extremity normal to inspection and full ROM Skin no rashes or lesions noted Lesions: no lesions Rashes: no rashes Trauma: no lacerations or abrasions Neuro oriented x3, moves all extremities, no focal motor deficits and no sensory deficits noted Psych mental status grossly normal and affect normal Assessment & Plan Assessment/Plan (1) Atrial fibrillation with RVR: (2) Pneumonia: QUALIFIERS: Laterality: right Lung location: unspecified part of lung Pneumonia type: due to unspecified organism Qualified Code(s): J18.9 - Pneumonia, unspecified organism PLAN: Plan 1. New onset atrial fibrillation with RVR -Continue Amiodarone, HR well controlled -Continue telemetry -Eliquis on hold for thoracentesis 2. Probable aspiration pneumonia -Continue IV Zosyn -Sputum culture pending, preliminary shows possible Pseudomonas -Continue scheduled DuoNeb and as needed albuterol aerosol treatments 3. Oral thrush -Continue nystatin swish and swallow 4. Right pleural effusion -From previous image -Thoracentesis scheduled for Wednesday -Eliquis on hold pending thoracentesis 5. Stage III lung cancer -Follows with Dr. Crouch -Patient waiting to start immunotherapy 6. Asthma with chronic hypoxic respiratory failure -Patient currently on 4 L nasal cannula which is her baseline -Continue albuterol and DuoNeb aerosol treatments 7. Type 2 diabetes mellitus -ACH S blood sugars with sliding scale insulin ordered 8. Hypertension -Vital signs per protocol, currently stable -Continue nadolol DVT prophylaxis-Eliquis This patient was seen by Vivian Olson NP-C under the supervision of Dr. Childress. 12 minutes spent in clinical coordination of patient's plan of care. Documented by User: Dr. Isreal Childress MD 12/13/21 15:03 Objective Data Lab / Micro Data Result Diagrams: 12/12/21 05:50 12/12/21 05:50 Assessment & Plan Assessment/Plan (1) Atrial fibrillation with RVR: (2) Pneumonia: QUALIFIERS: Laterality: right Lung location: unspecified part of lung Pneumonia type: due to unspecified organism Qualified Code(s): J18.9 - Pneumonia, unspecified organism Charges/Coding Addendum Addendum: Dr. Childress I personally examined the patient and reviewed the chart. I agree with the above.? 76-year-old female presents to the hospital with increasing shortness of breath.? She does have a history of needing chronic oxygen secondary to COPD and lung cancer.? She initially had treatment for the lung cancer but it does appear that her recent PET scan demonstrated activity again so she has now on immunotherapy.? She does wear chronic oxygen at 4 L however in the ER she needed to be bumped up to 6 L.? She was also found to be in A. fib with RVR which is a new diagnosis for her.? She will be started on Eliquis for her coagula issue and and it is possible that it is the ER ER that is because of her significant shortness of breath.? We will continue her on amiodarone and also her nadolol to try to get her heart rate under control.? If necessary could transition to metoprolol twice daily dosing, will obtain an echo and if we do have difficulty controlling her heart rate may need to get cardiology involved.? I also had a 25-minute discussion with her on advance care planning secondary to palliative care versus hospice care given the recurrence of her cancer and her other medical comorbidities.? She would like to proceed with palliative care if possible.? Clinical time spent in all aspects of patient care: 50 minutes 12/10/2021:?Heart rate is under control but she does not feel well, she feels a bit nauseated.? Her white count was elevated yesterday but this is likely due to oral steroids that she was taking however she does have a previous history of pseudomonal pneumonia therefore we will temporarily put her on Zosyn and monitor.? We will obtain a sputum culture as well.? Echo is pending.? We will continue to monitor and make adjustments as necessary.? Referral to palliative care is also pending at this time.? Clinical time spent in all aspects of patient care: 18 minutes 12/11/2021:?Oxygen requirement is back down to her baseline and her heart rate is now under control.? She is tolerating the Eliquis well.? Sputum culture is pending, in the meantime we will continue with Zosyn.? Echo was unremarkable, and we will still try to set her up with palliative care prior to discharge.? Clinical time spent in all aspects of patient care: 15 minutes 12/12/2021:?She has been having more of a productive cough and lung sounds have demonstrated some rhonchi so repeat chest x-ray was obtained this morning which demonstrated significantly increased pleural effusion on the right.? Unfortunately she is still on Eliquis for her A. fib so this had to be held however will likely not be able to get a thoracentesis done until Wednesday.? At that time we will have a diagnostic procedure done for cytology to evaluate the possibility of this being a malignant effusion.? Clinical time spent in all aspects of patient care: 18 minutes 12/13/2021: Still having coughing and states that she still feels short of breath despite being 100% on her home O2. She does have some discomfort based on the right side of her chest as well as some rhonchi and rales on exam. Still planning to perform a ultrasound-guided thoracentesis and will send fluid for cytology on Wednesday. She will of been off of her Eliquis for 3 days by the time the procedure was performed. Clinical time spent in all aspects of patient care: 15 minutes Visit Charges Inpatient E&M: 05216 Subs Hosp L2
[2021-12-13] MEDS: Amiodarone 200 MG Tablet 100 MG PO ×2 (10:07→22:48)
[2021-12-13] MEDS: Nadolol 40 MG Tablet PO (10:08)
[2021-12-13] MEDS: NYSTATIN 500,000 UNIT/5 ML UDC 500000 UNIT PO ×4 (10:09→22:59)
[2021-12-13] MEDS: guaiFENesin 1,200 MG Tablet 1200 MG PO ×2 (10:09→22:46)
[2021-12-13 12:00] LABS: Bedside Glucose 195 mg/dL (74-106)
[2021-12-13 16:40] LABS: Bedside Glucose 176 mg/dL (74-106)
--- NOTE | 2021-12-13 19:22 | CPS ---
placed pt on own Bipap unit for the night.
[2021-12-13 23:25] LABS: Bedside Glucose 224 mg/dL (74-106)
[2021-12-14] VITALS (15 sets, daily range): BP systolic 99–150; BP diastolic 50–75; PULSE 64–95; RESP 18–28; TEMP 36.5–37.2; O2SAT 93–97
[2021-12-14] MEDS: Acetaminophen 325 MG Tablet 650 MG PO (05:00)
[2021-12-14] MEDS: Insulin Lispro 100 UNIT/ML INSULN.PEN SC ×4 (06:06→21:44)
[2021-12-14 06:40] LABS: Bedside Glucose 165 mg/dL (74-106)
--- NOTE | 2021-12-14 09:08 | RAD_ITS ---
EXAM: XR CHEST, 1 VIEW CLINICAL INDICATION: Shortness of Breath TECHNIQUE: Frontal view of the chest. This report was created using [employer] report generation technology. COMPARISON: None. FINDINGS: LUNGS AND PLEURAL SPACES: Large amount of pleural fluid. At least partial collapse of the right lobes. Left lung is clear. HEART: Unremarkable. Cardiac silhouette not enlarged. MEDIASTINUM: Central airways and mediastinal contour are unremarkable. BONES/JOINTS: Degenerative changes of spine and the acromioclavicular joints. SOFT TISSUES: Unremarkable. TUBES, LINES AND DEVICES: Stable appearance of left central venous catheter with tip in the SVC in the suprahilar position. RAD/Chest 1 View (Portable) IMPRESSION: Near complete opacification of the right hemithorax indicating large pleural effusion with at least partial collapse of the right lobes. Electronically Signed: Refugio Baez MD at 12:08 EDT ,
--- NOTE | 2021-12-14 11:08 | PN.HOSP_ITS ---
Documented by User: Vivian Olson NP-Phoebe 12/14/21 11:13 Subjective Subjective Patient seen and examined. Patient sitting in chair no distress noted. Patient complains of increased shortness of breath this morning, repeat chest x-ray ordered. Dr. Medina consulted for evaluation for Pleurx cath Objective Data Objective Data Vital Signs: Vital Signs Temp Pulse Resp BP Pulse Ox O2 Del Method O2 Flow Rate 98.1 F 66 18 119/56 L 97 Bi-pap 4 12/14/21 07:27 12/14/21 07:27 12/14/21 07:27 12/14/21 07:27 12/14/21 09:03 12/14/21 09:03 12/14/21 08:35 FiO2 32 12/11/21 21:26 Oxygen Flow Rate (L/min) 4 Oxygen Delivery Method Bi-pap Weight: 286 lb 9.615 oz Body Mass Index (BMI) 50.8 Intake & Output: Intake and Output for Last 24 Hours 12/12/21 12/13/21 12/14/21 23:59 23:59 23:59 Intake Total 625 / 1105 1070 / 1070 50 / 50 Output Total 425 / 525 600 / 600 150 / 150 Balance 200 / 580 470 / 470 -100 / -100 Lab / Micro Data Result Diagrams: 12/12/21 05:50 12/12/21 05:50 Labs: Laboratory Results - last 24 hr 12/13/21 11:41: POC Glucose 195 H 12/13/21 16:14: POC Glucose 176 H 12/13/21 22:41: POC Glucose 224 H 12/14/21 06:05: POC Glucose 165 H Micro: Microbiology 12/10/21 23:38 Sputum, Expectorated/Coughed Gram Stain - Final 12/10/21 23:38 Sputum, Expectorated/Coughed Respiratory Culture - Final Pseudomonas aeroginosa 12/09/21 15:10 Nasal Secretion SARS-CoV-2 Antigen (Rapid) - Final Physical Exam Const alert, oriented x3 and no apparent distress Orientation / Consciousness: awake Nutritional Appearance: obese HEENT normocephalic, head/scalp atraumatic and moist oral mucous membranes Eyes conjunctivae normal and no scleral icterus Neck no lymphadenopathy and supple Resp normal respiratory effort and clear to auscultation bilaterally Effort and Inspection: able to speak in complete sentences and symmetric chest movement Auscultation: rhonchi right upper and diminished lung sounds Cardio regular rate, regular rhythm, S1 normal heart sound and S2 normal heart sound Peripheral Pulses: pulses 2+ throughout GI normal to inspection, nondistended, normoactive bowel sounds, soft to palpation and non-tender Inspection: central obesity and pannus present Extremity normal to inspection and full ROM Skin no rashes or lesions noted Lesions: no lesions Rashes: no rashes Trauma: no lacerations or abrasions Neuro oriented x3, moves all extremities, no focal motor deficits and no sensory deficits noted Psych mental status grossly normal and affect normal Assessment & Plan Assessment/Plan (1) Atrial fibrillation with RVR: (2) Pneumonia: QUALIFIERS: Laterality: right Lung location: unspecified part of lung Pneumonia type: due to unspecified organism Qualified Code(s): J18.9 - Pneumonia, unspecified organism PLAN: Plan 1. New onset atrial fibrillation with RVR -Continue Amiodarone, HR well controlled -Continue telemetry -Eliquis on hold for thoracentesis 2. Probable aspiration pneumonia -Continue IV Zosyn -Sputum culture pending, preliminary shows possible Pseudomonas -Continue scheduled DuoNeb and as needed albuterol aerosol treatments 3. Oral thrush -Continue nystatin swish and swallow 4. Right pleural effusion -From previous image -Thoracentesis scheduled for Wednesday -Eliquis on hold pending thoracentesis -Due to worsening breath sounds repeat chest x-ray ordered and Dr. Medina consulted for evaluation for Pleurx cath 5. Stage III lung cancer -Follows with Dr. Crouch -Patient waiting to start immunotherapy 6. Asthma with chronic hypoxic respiratory failure -Patient currently on 4 L nasal cannula which is her baseline -Continue albuterol and DuoNeb aerosol treatments 7. Type 2 diabetes mellitus -ACH S blood sugars with sliding scale insulin ordered 8. Hypertension -Vital signs per protocol, currently stable -Continue nadolol DVT prophylaxis-Eliquis This patient was seen by [facility] under the supervision of Dr. Childress. 14 minutes spent in clinical coordination of patient's plan of care. Documented by User: Dr. Isreal Childress MD 12/14/21 12:23 Objective Data Lab / Micro Data Result Diagrams: 12/12/21 05:50 12/12/21 05:50 Assessment & Plan Assessment/Plan (1) Atrial fibrillation with RVR: (2) Pneumonia: QUALIFIERS: Laterality: right Lung location: unspecified part of lung Pneumonia type: due to unspecified organism Qualified Code(s): J18.9 - Pneumonia, unspecified organism Charges/Coding Addendum Addendum: Dr. Childress I personally examined the patient and reviewed the chart. I agree with the above.? 76-year-old female presents to the hospital with increasing shortness of breath.? She does have a history of needing chronic oxygen secondary to COPD and lung cancer.? She initially had treatment for the lung cancer but it does appear that her recent PET scan demonstrated activity again so she has now on immunotherapy.? She does wear chronic oxygen at 4 L however in the ER she needed to be bumped up to 6 L.? She was also found to be in A. fib with RVR which is a new diagnosis for her.? She will be started on Eliquis for her coagula issue and and it is possible that it is the ER ER that is because of her significant shor tness of breath.? We will continue her on amiodarone and also her nadolol to try to get her heart rate under control.? If necessary could transition to metoprolol twice daily dosing, will obtain an echo and if we do have difficulty controlling her heart rate may need to get cardiology involved.? I also had a 25-minute discussion with her on advance care planning secondary to palliative care versus hospice care given the recurrence of her cancer and her other medical comorbidities.? She would like to proceed with palliative care if possible.? Clinical time spent in all aspects of patient care: 50 minutes 12/10/2021:?Heart rate is under control but she does not feel well, she feels a bit nauseated.? Her white count was elevated yesterday but this is likely due to oral steroids that she was taking however she does have a previous history of pseudomonal pneumonia therefore we will temporarily put her on Zosyn and monitor.? We will obtain a sputum culture as well.? Echo is pending.? We will continue to monitor and make adjustments as necessary.? Referral to palliative care is also pending at this time.? Clinical time spent in all aspects of patient care: 18 minutes 12/11/2021:?Oxygen requirement is back down to her baseline and her heart rate is now under control.? She is tolerating the Eliquis well.? Sputum culture is pending, in the meantime we will continue with Zosyn.? Echo was unremarkable, and we will still try to set her up with palliative care prior to discharge.? Clinical time spent in all aspects of patient care: 15 minutes 12/12/2021:?She has been having more of a productive cough and lung sounds have demonstrated some rhonchi so repeat chest x-ray was obtained this morning which demonstrated significantly increased pleural effusion on the right.? Unfortunately she is still on Eliquis for her A. fib so this had to be held however will likely not be able to get a thoracentesis done until Wednesday.? At that time we will have a diagnostic procedure done for cytology to evaluate the possibility of this being a malignant effusion.? Clinical time spent in all aspects of patient care: 18 minutes 12/13/2021:?Still having coughing and states that she still feels short of breath despite being 100% on her home O2.? She does have some discomfort based on the right side of her chest as well as some rhonchi and rales on exam.? Still planning to perform a ultrasound-guided thoracentesis and will send fluid for cytology on Wednesday.? She will of been off of her Eliquis for 3 days by the time the procedure was performed.? Clinical time spent in all aspects of patient care: 15 minutes 12/14/2021: Still short of breath, repeat chest x-ray shows even more worsening of her right lung. There may also be a component of mucous plugging given the debris that was found in her airway on her initial CT scan on top of any type of pleural effusion. I did consult general surgery today who did not feel that there is an indication for Pleurx catheter at this time as there has been no demonstration of malignant cells that this is a malignant effusion and could benefit from a Pleurx catheter. Will consult her end frazer for evaluation and possible bronchoscopy if the ultrasound thoracentesis tomorrow does not yield significant results. Clinical time spent in all aspects of patient care: 25 minutes Visit Charges Inpatient E&M: [id number] [facility] Hosp L3
--- NOTE | 2021-12-14 11:16 | EX.PCM.CON.S ---
Assessment & Plan Assessment/Plan (1) Pleural effusion: PLAN: Plan This is a 76-year-old female with a complex past medical?specifically complex pulmonary history?whom I been asked to evaluate for Pleurx catheter placement. According to hospitalist service, this request comes directly from patient's daughter who was previously in town but has since returned to her home in [place]. Patient has a history of non-small cell carcinoma which she reports was multifocal until she underwent chemotherapy which was completed in March 2021 and reduced her disease process to a single area. She states that she has now been under the care of Dr. Pires for immunotherapy, but has had difficulty making treatment appointments as she has found herself repeatedly admitted for acute respiratory failure related to recurrent pleural effusions. To this end, patient had a thoracentesis done at our facility last on 11/24/2021 with a output of 630 mL. Analysis was performed on this fluid and consistent with benign lymphocytes. While LDH and protein concentration were obtained for the fluid specimen, there was no corresponding laboratories drawn for the patient's serum counterparts and, consequently, a Lights analysis cannot be performed. She did reportedly have a chest tube placed and managed during a recent hospital stay at [facility] in early November. She is unaware if a fluid analysis was performed at that time. Lastly, patient is a poor historian regarding any prior surgical consultation and cannot tell me if she has met with a thoracic surgeon previously or not. With the information available, I do not see a clear indication for Pleurx catheter placement. I would question whether this pleural effusion is at all related to her recent immunotherapy and a repeat thoracentesis seems to be the most appropriate procedure based on patient's current presentation. While she does demonstrate some increased work of breathing and her chest x-ray has shown progression of her effusion, she does not seem to be at risk for acute decompensation as she at her baseline oxygen requirement and her breathing is not particularly labored. This impression was shared by Dr. Serna of pulmonology with whom I discussed patient's case. He recommended waiting until tomorrow and placing a consult to pulmonology. In the meantime, patient's primary cruller maker machine, Dr. Watters has been contacted and the hospitalist service is awaiting his evaluation. Given the patient's habitus, and questionable reliability of ultrasound with her thicker chest wall, I have asked hospitalist service to perform a updated CT of the chest as a means of mapping her effusion in the event she would have an acute decompensation and require emergent chest tube placement. HPI Consult Data Date of Consult: 12/14/21 HPI Narrative Reason for Consultation: Consideration for placement of Pleurx catheter HPI Narrative: ALESSANDRO GUARDADO, is a 76 F who presents to [facility] with shortness of breath. She has experienced at least 3 prior episodes like this which led to thoracenteses. Her last thoracentesis was performed at this institution on 11/24/2021. She notes that she felt better for about 1 week and then the shortness of breath returned. She had 1 other thoracentesis performed at this institution in July and the third was performed at [facility]. As part of that latter hospitalization, she states a chest tube was placed for partial collapse of her lung. She is diagnosed with non-small cell lung cancer and reports completing chemotherapy in March of last year. She states that she is now followed by Dr. Pires of oncology and is undergoing immunotherapy, but has had difficulty staying well long enough to receive these treatments. She is uncertain whether she has ever been evaluated by thoracic surgery for consideration of a resection. She also confirms a history of bronchitis, asthma, breast cancer x2, atrial fibrillation, diabetes mellitus type 2, obstructive sleep apnea, hypertension, and GERD. She has had a right modified radical mastectomy for treatment of her breast cancer. [facility] Medical History Acute and chronic respiratory failure with hypoxia Acute bronchitis due to Rhinovirus Acute severe exacerbation of asthma Allergic rhinitis Anemia Anxiety Asthma Asthmatic bronchitis Body mass index (BMI) 50-59.9, adult Breast cancer Chronic diarrhea Chronic respiratory failure with hypoxia Dependence on supplemental oxygen Depression Diabetes mellitus, type II Former tobacco use GERD (gastroesophageal reflux disease) History of primary non-small cell carcinoma of right lung History of right breast cancer Hypertension Immunosuppressed due to chemotherapy Migraine headache Migraines Obstructive sleep apnea Osteoarthritis Sleep apnea Vitamin D deficiency Home Medications cholecalciferol (vitamin D3) 1,250 mcg (50,000 unit) capsule 50,000 unit PO SUWE@0800 SUPPLEMENT 06/01/17 [History Last Taken 12/07/21] albuterol sulfate 2.5 mg (3 mL) inhalation Q2H PRN PRN Dyspnea, wheezing ##1 11/26/17 [Rx Last Taken 12/07/21] albuterol sulfate 90 mcg/actuation aerosol inhaler (ProAir HFA) 2 puff inhalation Q6H PRN PRN Dyspnea/Wheezing/Sob 03/25/18 [History Last Taken 12/07/21] budesonide 32 mcg/actuation nasal spray (Rhinocort Allergy) 2 puff DAILY ALLERGIES 06/12/18 [History Last Taken 12/07/21] methylphenidate HCl 20 mg tablet,extended release 20 mg PO BID ADHD 03/01/19 [History Last Taken 12/07/21] fluticasone furoate 200 mcg-vilanterol 25 mcg/dose inhalation powder (Breo Ellipta) 2 inh inhalation DAILY sob 12/09/21 [History Last Taken 12/07/21] insulin regular hum U-500 conc (Humulin R U-500 (Conc) Insulin Kwikpen) 65 unit subcut DINNER diabetes 12/09/21 [History Last Taken Unknown] insulin regular hum U-500 conc (Humulin R U-500 (Conc) Insulin Kwikpen) 75 unit subcut DAILY diabetes 12/09/21 [History Last Taken 12/08/21 10:00] nadolol 40 mg tablet 40 mg PO DAILY heart 12/09/21 [History Last Taken 12/07/21] paroxetine HCl 40 mg tablet (Paxil) 40 mg PO DAILY mood 12/09/21 [History Last Taken 12/07/21] Allergy/AdvReac Type Severity Reaction Status Date / Time adhesive tape Allergy tears skin Verified 09/19/21 16:42 cefadroxil [From Duricef] Allergy Unknown Verified 09/19/21 16:42 gluten Allergy celiac Verified 09/19/21 16:42 disease mesalamine [From Asacol] Allergy Unknown Verified 09/19/21 16:42 omalizumab [From Xolair] Allergy Unknown Verified 09/19/21 16:42 Sulfa (Sulfonamide Allergy swelling Verified 09/19/21 16:42 Antibiotics) as an infant oxycodone AdvReac Vomiting Verified 09/19/21 16:42 Family History (Reviewed 12/09/21 @ 18:06 by Jenna Cabrera PARLIAMENTARY ARCHIVIST, PARLIAMENTARY ARCHIVIST-C) Father Cancer Myocardial infarction Mother Cancer Metastatic breast CA Surgical History (Reviewed 12/09/21 @ 18:06 by Jenna Cabrera PARLIAMENTARY ARCHIVIST, PARLIAMENTARY ARCHIVIST-C) H/O rectocele repair History of lymph node dissection of right axilla History of mastectomy History of partial hysterectomy Hx of bilateral cataract extraction Hx of carpal tunnel repair Social History (Reviewed 12/09/21 @ 18:06 by Jenna Cabrera PARLIAMENTARY ARCHIVIST, PARLIAMENTARY ARCHIVIST-C) household members: spouse Smoking Status: Former smoker how long ago did patient quit smoking: Smoked x 2 years 1/2 ppd, quit ~ 50 years prior. alcohol intake: never substance use type: does not use Physical Exam Const alert and oriented x3 Constitutional Narrative: Mild distress with work of breathing Orientation / Consciousness: awake, oriented to person and oriented to place Chest Chest Narrative: Patient with surgical incision consistent with prior mastectomy and smaller incision inferior to this from prior chest tube placement. With auscultation she has very diminished breath sounds on the right versus left?particularly over the lung base. Lab / Micro Data Result Diagrams: 12/12/21 05:50 12/12/21 05:50 Labs: Laboratory Results - last 24 hr 12/13/21 11:41: POC Glucose 195 H 12/13/21 16:14: POC Glucose 176 H 12/13/21 22:41: POC Glucose 224 H 12/14/21 06:05: POC Glucose 165 H Charges/Coding Visit Charges Inpatient E&M: 44475 Init Hosp L2
[2021-12-14] MEDS: Nadolol 40 MG Tablet PO (11:34)
[2021-12-14] MEDS: Amiodarone 200 MG Tablet 100 MG PO ×2 (11:34→21:33)
[2021-12-14] MEDS: guaiFENesin 1,200 MG Tablet 1200 MG PO ×2 (11:35→21:34)
[2021-12-14] MEDS: NYSTATIN 500,000 UNIT/5 ML UDC 500000 UNIT PO ×4 (11:36→21:33)
[2021-12-14 12:45] LABS: Bedside Glucose 214 mg/dL (74-106)
--- NOTE | 2021-12-14 13:20 | CT_ITS ---
STUDY: CT Chest W/O Contrast Injection 12/14/2021 2:48 PM REASON FOR EXAM: Female, 76 years old. abnormal chest xray Individualized dose optimization techniques were used for this CT. TECHNIQUE: Transaxial imaging was performed withoutIV contrast material. COMPARISON: Dec 09 2021 4:15pm . FINDINGS: There are degenerative changes of the shoulders. There is no pneumothorax. There is large right pleural effusion. Mucous, fluid, or debris noted in the right bronchus. This may suggest an aspiration pneumonia or mucous plug on the right. There is a left PICC line in place. The tip is in the superior vena cava. Right mastectomy changes. There are calcifications of the coronary arteries. Normal mediastinum. Normal hilar regions. Normal pulmonary arteries. There is atherosclerotic calcification of the aortic arch with tortuosity and elongation of the aortic arch and descending thoracic aorta. There are multi-level degenerative changes of the thoracic spine. There are no acute findings of the upper abdomen. CT/Chest without Contrast IMPRESSION: There is large right pleural effusion. Mucous, fluid, or debris noted in the right bronchus. This may suggest an aspiration pneumonia or mucous plug on the right. Electronically Signed: Sharan Haddad MD at 14:53 EDT ,
[2021-12-14] MEDS: hydrALAZINE 10 MG Tablet PO (15:29)
[2021-12-14] MEDS: 0.9% Saline Lock 10 ML Syringe IV (15:39)
[2021-12-14 16:01] LABS: Bedside Glucose 160 mg/dL (74-106)
[2021-12-14 22:10] LABS: Bedside Glucose 154 mg/dL (74-106)
[2021-12-15] VITALS (13 sets, daily range): BP systolic 85–144; BP diastolic 39–75; PULSE 49–99; RESP 16–20; TEMP 35.8–37.2; O2SAT 93–100
[2021-12-15 06:15] LABS: Absolute Lymphocyte Count 0.49 X10^3/uL (0.83-4.51); Absolute Neutrophil Count 6.9 X10^3/uL (2.0-7.7); Basophil# 0.04 X10^3/uL; Basophil% 0.5 % (0-1); Eosinophil# 0.43 X10^3/uL; Hematocrit 37.5 % (37-47); Hemoglobin 11.2 g/dL (12.0-15.0); Lymphocyte # 0.49 X10^3/ul (0.83-4.51); Lymphocyte % 5.7 % (19-41); Mean Corp Hgb Conc 29.9 g/dL (32-36); Mean Corpuscular Volume 90.4 fL (81-99); Mean Platelet Vol. 9.6 fl (6.2-12.0); Monocyte# 0.72 X10^3/uL; Monocyte% 8.4 % (0-10); NRBC Flagged by Analyzer 0 % (0-5); Neutrophil # 6.87 X10^3/uL (2.7-7.7); Neutrophil % 79.8 % (47-70); POSITIVE DIFFERENTIAL YES; Platelet Count 258 K/mm3 (150-450); RBC Distribution Width CV 15.4 % (11.6-14.6); RBC Distribution Width SD 50.4 fl (35.1-43.9); Red Blood Count 4.15 M/mm3 (4.2-5.4); White Blood Count 8.6 K/mm3 (4.4-11.0)
[2021-12-15 06:30] LABS: Bedside Glucose 155 mg/dL (74-106)
[2021-12-15 06:50] LABS: ALB/GLOB Ratio 0.5 RATIO (0.9-2.4); AST(SGOT) 14 U/L (15-37); Alanine Aminotransfer ALT/SGPT 24 U/L (13-56); Albumin, Serum 2.3 g/dL (3.2-5.0); Alkaline Phosphatase 168 U/L (45-117); Anion Gap 4 (5-15); BUN 13 mg/dL (7-18); BUN/Creat Ratio 19.8 RATIO (10-20); Calcium,Total 9.9 mg/dL (8.5-10.1); Chloride 97 mmol/L (98-107); Creatinine, Serum 0.66 mg/dL (0.55-1.02); EST Glomerular Filtration Rate 94 mL/min (>60); Est Glom Filt Rate - Afr Amer 113 mL/min (>60); Estimated Creatinine Clearance 40.21 ml/min; Globulin 4.6 g/dL (2.2-4.2); Glucose 167 mg/dL (74-106); LDH 187 U/L (84-246); Potassium 3.8 mmol/L (3.5-5.1); Protein, Total 6.9 g/dL (6.4-8.2); Sodium Level 139 mmol/L (136-145)
[2021-12-15 06:56] LABS: Differential Indicated SCAN CRITERIA MET
--- NOTE | 2021-12-15 08:00 | US_ITS ---
PROCEDURE: ULTRASOUND GUIDED THORACENTESIS. DATE: 12/15/2021.. INDICATION: Female, 76 years old. Right pleural effusion. PHYSICIAN: Salazar Garcia M.D. PROCEDURE: The risks, benefits, and alternatives to the procedure were explained to the patient. The specific risks of bleeding, infection, and pneumothorax requiring chest tube insertion were discussed and accepted. Written informed consent was obtained. Ultrasonographic evaluation of the right lower pleural space was carried out. An adequate pocket was identified. The patient was placed in the sitting, upright position. The overlying skin was prepped and draped in sterile fashion. 1% lidocaine was administered subcutaneously for local anesthesia. Under ultrasound guidance, a 5 Polish thoracentesis needle/catheter system was advanced into the right posterior lower pleural fluid collection. Approximately 1370 mL of gilles-colored fluid was drained. The catheter was removed, and a sterile dressing was applied. A specimen was collected and sent to the laboratory for analysis, as requested by the referring clinician. The patient tolerated the procedure well. A chest x-ray was ordered. US/Thoracentesis W US IMPRESSION: Ultrasound-guided right thoracentesis. Electronically Signed: Salazar Garcia MD at 9:31 EDT ,
--- NOTE | 2021-12-15 08:18 | PCM.PN.SRG ---
Subjective Subjective Patient was seen and examined during AM rounds and then again later in the morning with family. She initially denied any increase of her respiratory distress and stated that things actually seemed improved since she had refrained from eating. She then proceeded for a ultrasound-guided thoracentesis with radiology and was seen in her room following the procedure. She reported improvement in her breathing. Her family was also present in the room and had several questions regarding her management. Objective Data Objective Data Vital Signs: Vital Signs Temp Pulse Resp BP Pulse Ox O2 Del Method O2 Flow Rate 99.0 F 67 18 113/39 L 98 Nasal Cannula 4 12/15/21 08:00 12/15/21 08:00 12/15/21 08:00 12/15/21 08:00 12/15/21 08:00 12/15/21 08:10 12/15/21 08:10 FiO2 32 12/11/21 21:26 Oxygen Flow Rate (L/min) 4 Oxygen Delivery Method Nasal Cannula Weight: 286 lb 9.615 oz Body Mass Index (BMI) 50.8 Intake & Output: Intake and Output for Last 24 Hours 12/13/21 12/14/21 12/15/21 23:59 23:59 23:59 Intake Total 1070 / 1070 650 / 750 150 / 150 Output Total 600 / 600 500 / 625 275 / 275 Balance 470 / 470 150 / 125 -125 / -125 Lab / Micro Data Result Diagrams: 12/15/21 05:20 12/15/21 05:20 Labs: Laboratory Results - last 24 hr 12/14/21 11:32: POC Glucose 214 H 12/14/21 15:36: POC Glucose 160 H 12/14/21 21:43: POC Glucose 154 H 12/15/21 05:20: WBC 8.6, RBC 4.15 L, Hgb 11.2 L, Hct 37.5, MCV 90.4, MCH 27.0, MCHC 29.9 L, RDW Std Deviation 50.4 H, RDW Coeff of Aniceto 15.4 H, Plt Count 258, MPV 9.6, Immature Gran % (Auto) 0.600, Neut % (Auto) 79.8 H, Lymph % (Auto) 5.7 L, Richardson % (Auto) 8.4, Eos % (Auto) 5.0, Baso % (Auto) 0.5, Absolute Neuts (auto) 6.9, Absolute Lymphs (auto) 0.49 L, Nucleated RBC % 0 12/15/21 05:20: Sodium 139, Potassium 3.8, Chloride 97 L, Carbon Dioxide 38.0 H, Anion Gap 4 L, BUN 13, Creatinine 0.66, Estim Creat Clear Calc 40.21, Est GFR (MDRD) Af Amer 113, Est GFR (MDRD) Non-Af 94, BUN/Creatinine Ratio 19.8, Glucose 167 H, Calcium 9.9, Total Bilirubin 0.40, AST 14 L, ALT 24, Alkaline Phosphatase 168 H, Lactate Dehydrogenase 187, Total Protein 6.9, Albumin 2.3 L, Globulin 4.6 H, Albumin/Globulin Ratio 0.5 L 12/15/21 06:08: POC Glucose 155 H Micro: Microbiology 12/10/21 23:38 Sputum, Expectorated/Coughed Gram Stain - Final 12/10/21 23:38 Sputum, Expectorated/Coughed Respiratory Culture - Final Pseudomonas aeroginosa 12/09/21 15:10 Nasal Secretion SARS-CoV-2 Antigen (Rapid) - Final Radiography Diagnostic Testing: Radiology Impression Chest X-Ray 12/14/21 09:08 IMPRESSION: Near complete opacification of the right hemithorax indicating large pleural effusion with at least partial collapse of the right lobes. Electronically Signed: Refugio Baez MD at 12:08 EDT , ADDENDUM: 12/14/21 1225 IMPRESSION: Near complete opacification of the right hemithorax indicating large pleural effusion with at least partial collapse of the right lobes. Electronically Signed: Refugio Baez MD at 12:08 EDT , ADDENDUM: 12/14/21 1230 IMPRESSION: Near complete opacification of the right hemithorax indicating large pleural effusion with at least partial collapse of the right lobes. N.B. : Lelia Sepulveda RN, confirmed on 12/14/2021 12:23:10 (ET) that the healthcare facility has received the radiology report. Electronically Signed: Refugio Baez MD at 12:08 EDT , Chest CT 12/14/21 13:20 IMPRESSION: There is large right pleural effusion. Mucous, fluid, or debris noted in the right bronchus. This may suggest an aspiration pneumonia or mucous plug on the right. Electronically Signed: Sharan Haddad MD at 14:53 EDT , Physical Exam Const oriented x3 and no apparent distress Resp Resp Narrative: Mildly tachypneic prior to thoracentesis but improved thereafter Auscultation: diminished lung sounds right Assessment & Plan Assessment/Plan (1) Recurrent pleural effusion on right: PLAN: Patient underwent successful thoracentesis with radiology earlier today with drainage of 1370 mL of gilles fluid. A specimen was sent for further analysis. I did confirm with hospitalist service that serum labs were obtained to perform a complete analysis of fluid. I also had a conversation with patient's primary oncologist, Dr. Crouch who related that patient underwent definitive treatment with chemoradiation and then had a short interval recurrence of her tumor. She is thus not a surgical candidate and has been prescribed immunotherapy, but Dr. Crouch has faced difficulty with getting this administered as patient has experienced recurrent hospital admissions for respiratory distress related to recurrent pleural effusions. He confirms that no malignant cells have he does been identified with these thoracenteses procedures?to include her hospitalization at [facility]. He is also unaware if she has been evaluated for possible pleurodesis procedure. He does believe the effusions are related to her cancer diagnosis and believes that either pleurodesis or Pleurx catheter placement are reasonable at this juncture for both palliative measures as well as any means of providing further immunotherapy should patient choose. Through a lengthy conversation with patient's son and [id number], as well as her daughter via telephone, and the patient herself I discussed the treatment options in detail to include possibility of evaluation for mechanical versus chemical pleurodesis (and shared this would require evaluation at outside facility) versus Pleurx catheter. We discussed that there are risks with each procedure?to include more potential discomfort with pleurodesis upfront but potentially avoiding need for indwelling catheter versus risk of catheter infection and blockage with Pleurx catheter placement. Patient's daughter expresses strong familiarity with these treatments and apparently works in hospice nursing in [place]. She wishes to involve patient's primary manager lpn, Dr. Watters with this treatment decision before making a final decision. I have advised family that we would have to wait until the fluid reaccumulates before proceeding with a Pleurx catheter placement and they expressed understanding of this necessary delay. In the meantime we will follow-up fluid and serum laboratories and await family's final joint decision. Charges/Coding Visit Charges Inpatient E&M: 23783 Subs Hosp L2
[2021-12-15] MEDS: Lidocaine 2% (5ml sdv) 5 ML VIAL.MPF 10 ML INFILT (08:55)
--- NOTE | 2021-12-15 09:00 | FLU_PTH ---
PATIENT: ALESSANDRO DOTSON LOC: [facility] U#:[id number] AGE/SX: 76/F ROOM: [facility] RE12/09/[address]: Dr. Elizabeth Bailey DO : 1945 BED: 1 DIS: 12/17/2021 SPEC #: [id number] RECD: 12/15/21 09:15 STATUS: TANO REBernardo #: [id number] HELEN: 12/15/21 09:[address]: Elizabeth Bailey DEPT: CYTOLOGY RECD BY: Cara Brian ENTERED: 12/15/21 12:57 SP TYPE: Fluid OTHR DR: MD Dr. Manoj Lua MD Dr. Nicholas F Kotsonis, MD Dr. Robert V Sibilia, MD Tissues: Pleural fluid, NOS Procedures: Special Stain Group II Surgery Specimen Level IV Cytospin Fluid HEADER OPERATION: Thoracentesis PRE-OP DIAGNOSIS: Pleural effusion TISSUE SUBMITTED: Thoracentesis fluid for cytology DIAGNOSIS CYTOLOGY Thoracentesis fluid for cytology (cytospin and cell block): Negative for malignant cells. See comment. YOLANDA:dania 12/16/2021 COMMENT Clinical correlation and appropriate follow up are necessary. Please make reference to previous specimens ([id number]), thoracentesis fluid for cytology with diagnosis of ?negative for malignant cells? and ([id number]) thoracentesis fluid for cytology with diagnosis of ?polytypic (benign) lymphocytes present.? CYTOLOGY STUDY Slides are reviewed. CYTOLOGY GROSS Received is 80 ml of yellow cloudy fluid labeled with the patient's name and and designated per the requisition as thoracentesis. Submitted for cytology preparation including cell block. / dnaia 12/15/2021 TC:5 CPT: 84792, 454411
--- NOTE | 2021-12-15 09:15 | RAD_ITS ---
STUDY: X-RAY CHEST REASON FOR EXAM: Female, 76 years old. POST THORA TECHNIQUE: AP inspiration and expiration views following right thoracentesis. COMPARISON: Comparison is made with prior study dated 12/14/2021. FINDINGS: The patient is status post right thoracentesis. No evidence of pneumothorax. Soft tissue mass in the right upper lobe. RAD/Chest Insp/Exp 2 View IMPRESSION: No evidence of pneumothorax following a right thoracentesis. Electronically Signed: Salazar Garcia MD at 9:56 EDT ,
[2021-12-15 09:20] LABS: Cytology, Body Fluid / CSF SEE PATHOLOGY REPORT
[2021-12-15] MEDS: Amiodarone 200 MG Tablet 100 MG PO ×2 (09:44→21:14)
[2021-12-15] MEDS: Nadolol 40 MG Tablet PO (09:44)
[2021-12-15] MEDS: NYSTATIN 500,000 UNIT/5 ML UDC 500000 UNIT PO ×4 (09:44→21:29)
[2021-12-15] MEDS: guaiFENesin 1,200 MG Tablet 1200 MG PO ×2 (09:46→21:17)
[2021-12-15 09:48] LABS: Body Fluid Mononuclear WBC # 2.682 10^3/uL; Body Fluid Mononuclear WBC % 95.5 %; Body Fluid Polynuclear WBC # 0.126 10^3/uL; Body Fluid Polynuclear WBC % 4.5 %; White Blood Count/Body Fluid 2.808 10^3/uL
[2021-12-15 10:07] LABS: Appearance/Body Fluid CLOUDY; Auto B Fluid Analyzer BKGD Ct COUNTS W/IN LIMITS (W/IN LIMITS); Color/Body Fluid YELLOW; Source- Body Fluid PLEURAL FLUID
[2021-12-15 10:08] LABS: Glucose, Body Fluid 175 mg/dL (40-70); LDH,Body Fluid 129 Units/l (Not Establ.)
[2021-12-15 10:12] LABS: Red Cell Count/Body Fluid 285 /mm3
[2021-12-15 10:20] LABS: Lymphocytes 86 %; Macrophages 6 %; Monocytes 1 %; Neutrophil (Segs) 6 %; Other Cell Type/BF 1 %
[2021-12-15] MEDS: Insulin Lispro 100 UNIT/ML INSULN.PEN SC ×3 (10:53→21:15)
--- NOTE | 2021-12-15 11:23 | PCM.PN.HOSP ---
Documented by User: HIRAL Pan 12/15/21 11:31 Subjective Subjective Patient seen and examined. Patient lying in bed no distress noted. Patient on thoracentesis this morning 1380 mL taken off. Objective Data Objective Data Vital Signs: Vital Signs Temp Pulse Resp BP Pulse Ox O2 Del Method O2 Flow Rate 97.4 F L 54 L 18 144/70 H 94 Nasal Cannula 4 12/15/21 09:32 12/15/21 09:32 12/15/21 09:32 12/15/21 09:32 12/15/21 09:32 12/15/21 09:32 12/15/21 09:32 FiO2 32 12/11/21 21:26 Oxygen Flow Rate (L/min) [5] 4 Oxygen Flow Rate (L/min) [4] 4 Oxygen Flow Rate (L/min) [2] 4 Oxygen Flow Rate (L/min) [1 ( 4 Initial Baseline)] Oxygen Flow Rate (L/min) 4 Oxygen Delivery Method [5] Nasal Cannula Oxygen Delivery Method [4] Nasal Cannula Oxygen Delivery Method [3] Nasal Cannula Oxygen Delivery Method [2] Nasal Cannula Oxygen Delivery Method [1 ( Nasal Cannula Initial Baseline)] Oxygen Delivery Method Nasal Cannula Weight: 286 lb 9.615 oz Body Mass Index (BMI) 50.8 Intake & Output: Intake and Output for Last 24 Hours 12/13/21 12/14/21 12/15/21 23:59 23:59 23:59 Intake Total 1070 / 1070 650 / 750 200 / 200 Output Total 600 / 600 500 / 625 1645 / 1645 Balance 470 / 470 150 / 125 -1445 / -1445 Lab / Micro Data Result Diagrams: 12/15/21 05:20 12/15/21 05:20 Labs: Laboratory Results - last 24 hr 12/14/21 09:18: Fluid Glucose 175 H, Fluid Total Protein 4.0, Fluid LDH 129 12/14/21 11:32: POC Glucose 214 H 12/14/21 15:36: POC Glucose 160 H 12/14/21 21:43: POC Glucose 154 H 12/15/21 05:20: WBC 8.6, RBC 4.15 L, Hgb 11.2 L, Hct 37.5, MCV 90.4, MCH 27.0, MCHC 29.9 L, RDW Std Deviation 50.4 H, RDW Coeff of Aniceto 15.4 H, Plt Count 258, MPV 9.6, Immature Gran % (Auto) 0.600, Neut % (Auto) 79.8 H, Lymph % (Auto) 5.7 L, Reagan % (Auto) 8.4, Eos % (Auto) 5.0, Baso % (Auto) 0.5, Absolute Neuts (auto) 6.9, Absolute Lymphs (auto) 0.49 L, Nucleated RBC % 0 12/15/21 05:20: Sodium 139, Potassium 3.8, Chloride 97 L, Carbon Dioxide 38.0 H, Anion Gap 4 L, BUN 13, Creatinine 0.66, Estim Creat Clear Calc 40.21, Est GFR (MDRD) Af Amer 113, Est GFR (MDRD) Non-Af 94, BUN/Creatinine Ratio 19.8, Glucose 167 H, Calcium 9.9, Total Bilirubin 0.40, AST 14 L, ALT 24, Alkaline Phosphatase 168 H, Lactate Dehydrogenase 187, Total Protein 6.9, Albumin 2.3 L, Globulin 4.6 H, Albumin/Globulin Ratio 0.5 L 12/15/21 06:08: POC Glucose 155 H 12/15/21 09:18: Fluid Source PLEURAL FLUID, Fluid Color YELLOW, Fluid Appearance CLOUDY, Fluid WBC 2.808, Fluid RBC 285, Fluid Tot Cell Count 2.950 H, Fld Polynuclear WBCs # 0.126, Fld Polynuclear WBCs % 4.5, Fluid Mononuclear WBCs 2.682, Fld Mononuclear WBCs % 95.5, Fluid Neutrophils 6, Fluid Lymphocytes 86, Fluid Monocytes 1, Fluid Macrophages 6, Fluid Other Cells 1, Fl Pathologist Comment May follow, Fluid Comment 2 SEE COMMENT Micro: Microbiology 12/10/21 23:38 Sputum, Expectorated/Coughed Gram Stain - Final 12/10/21 23:38 Sputum, Expectorated/Coughed Respiratory Culture - Final Pseudomonas aeroginosa 12/09/21 15:10 Nasal Secretion SARS-CoV-2 Antigen (Rapid) - Final Radiography Diagnostic Testing: Radiology Impression Chest X-Ray 12/14/21 09:08 IMPRESSION: Near complete opacification of the right hemithorax indicating large pleural effusion with at least partial collapse of the right lobes. Electronically Signed: Refugio Baez MD at 12:08 EDT , ADDENDUM: 12/14/21 1225 IMPRESSION: Near complete opacification of the right hemithorax indicating large pleural effusion with at least partial collapse of the right lobes. Electronically Signed: Refugio Baez MD at 12:08 EDT , ADDENDUM: 12/14/21 1230 IMPRESSION: Near complete opacification of the right hemithorax indicating large pleural effusion with at least partial collapse of the right lobes. N.B. : Lelia Sepulveda RN, confirmed on 12/14/2021 12:23:10 (ET) that the healthcare facility has received the radiology report. Electronically Signed: Refugio Baez MD at 12:08 EDT , Chest CT 12/14/21 13:20 IMPRESSION: There is large right pleural effusion. Mucous, fluid, or debris noted in the right bronchus. This may suggest an aspiration pneumonia or mucous plug on the right. Electronically Signed: Sharan Haddad MD at 14:53 EDT , Thoracentesis Ultrasound 12/15/21 08:00 IMPRESSION: Ultrasound-guided right thoracentesis. Electronically Signed: Salazar Garcia MD at 9:31 EDT , Chest X-Ray 07/11/22 09:15 IMPRESSION: No evidence of pneumothorax following a right thoracentesis. Electronically Signed: Salazar Garcia MD at 9:56 EDT , Physical Exam Const alert, oriented x3 and no apparent distress Constitutional Narrative: Conversational dyspnea. Orientation / Consciousness: awake, oriented to person, oriented to place, oriented to time and lethargic Nutritional Appearance: obese HEENT normocephalic, head/scalp atraumatic and moist oral mucous membranes Eyes conjunctivae normal and no scleral icterus Neck no lymphadenopathy and supple Resp normal respiratory effort Effort and Inspection: able to speak in complete sentences and symmetric chest movement Auscultation: diminished lung sounds Cardio regular rate, regular rhythm, S1 normal heart sound and S2 normal heart sound Peripheral Pulses: pulses 2+ throughout GI normal to inspection, nondistended, normoactive bowel sounds, soft to palpation, non-tender and non-distended Inspection: central obesity and pannus present Extremity normal to inspection and full ROM Skin no rashes or lesions noted Lesions: no lesions Rashes: no rashes Trauma: no lacerations or abrasions Neuro oriented x3, moves all extremities, no focal motor deficits and no sensory deficits noted Psych mental status grossly normal and affect normal Assessment & Plan Assessment/Plan (1) Atrial fibrillation with RVR: (2) Pneumonia: QUALIFIERS: Laterality: right Lung location: unspecified part of lung Pneumonia type: due to unspecified organism Qualified Code(s): J18.9 - Pneumonia, unspecified organism PLAN: Plan 1. New onset atrial fibrillation with RVR -Continue Amiodarone, HR well controlled -Continue telemetry -Plan to restart Eliquis 12/16/2021 2. Probable aspiration pneumonia -Continue IV Zosyn -Sputum culture positive for Pseudomonas -Continue scheduled DuoNeb and as needed albuterol aerosol treatments 3. Oral thrush -Continue nystatin swish and swallow 4. Right pleural effusion -Thoracentesis complete, 1380 mL fluid removed -Eliquis on hold pending thoracentesis -Dr. Medina consulted for evaluation for Pleurx cath 5. Stage III lung cancer -Follows with Dr. Crouch -Patient waiting to start immunotherapy -Patient signed papers with palliative care 6. Asthma with chronic hypoxic respiratory failure -Patient currently on 4 L nasal cannula which is her baseline -Continue albuterol and DuoNeb aerosol treatments 7. Type 2 diabetes mellitus -ACH S blood sugars with sliding scale insulin ordered 8. Hypertension -Vital signs per protocol, currently stable -Continue nadolol DVT prophylaxis-Eliquis This patient was seen by Vivian Olson NP-C under the supervision of Dr. Bailey. 13 minutes spent in clinical coordination of patient's plan of care. Documented by User: Dr. Elizabeth Bailey, 12/15/21 13:48 Subjective Subjective Patient seen and examined. Patient lying in bed no distress noted. Patient on thoracentesis this morning 1380 mL taken off. This patient was seen in conjunction with Vivian Olson NP. The following represents my independent history and physical examination. Please see below for addendum the above. Patient went for thoracentesis this morning at which time 1380 was removed. This was about twice is much as was removed from her right lung 2 weeks ago. Family reports this is her fifth thoracentesis. Patient does not want to continue IV immunotherapy but is considering Keytruda as an outpatient and is not currently interested in hospice services. We did discuss at length a Pleurx catheter placement and patient was interested. I discussed the case with Dr. Medina and he discussed the case with Dr. Crouch in the family. Patient and family would like to run things by Dr. Watters before making a decision. Patient is currently on 4 L nasal cannula which is her baseline. No specific complaints currently. Objective Data Lab / Micro Data Result Diagrams: 12/15/21 05:20 12/15/21 05:20 Physical Exam Const alert, oriented x3 and no apparent distress Constitutional Narrative: Morbidly obese, elderly white female sitting up in bed slightly reclined, family at bedside, patient appears comfortable nontoxic, mild conversational dyspnea with extended conversation HEENT normocephalic, head/scalp atraumatic and moist oral mucous membranes HEENT Narrative: Dentures in place, Mallampati 2, no thrush Eyes PERRL, EOMs intact bilaterally and conjunctivae normal Eyes Narrative: No scleral icterus Neck no lymphadenopathy, supple and no JVD Neck Narrative: Trachea midline, no thyroid enlargement, neck is short and thick Resp no retractions and no use of accessory muscles Resp Narrative: Diminished bilateral bases right greater than left, few scattered crackles, mild conversational dyspnea Auscultation: crackles; Negative for rales, rhonchi or wheezes Cardio regular rate, S1 normal heart sound, S2 normal heart sound, no murmurs, no rub, no gallops, no clicks and no JVD Cardio Narrative: Irregular irregular rhythm GI normal to inspection, nondistended, normoactive bowel sounds, soft to palpation, non-tender and non-distended Extremity normal to inspection and no clubbing, cyanosis or edema Skin no rashes or lesions noted, no wounds, skin turgor normal, no jaundice, no petechiae and no mottling Neuro oriented x3, CN's II-XII intact bilaterally, moves all extremities and no focal motor deficits Neuro Narrative: Generalized weakness Psych Psych Narrative: Affect is somewhat flat/mood depressed Assessment & Plan Assessment/Plan (1) Atrial fibrillation with RVR: (2) Pneumonia: QUALIFIERS: Laterality: right Lung location: unspecified part of lung Pneumonia type: due to unspecified organism Qualified Code(s): J18.9 - Pneumonia, unspecified organism PLAN: Plan Assessment: New onset atrial fibrillation with RVR Pseudomonal pneumonia Recurrent right pleural effusion status post multiple thoracenteses Oral thrush Stage III lung CA Chronic hypoxic respiratory failure DM-2 Hypertension History of asthma Hypertension Depression History of breast cancer GERD History of migraine headaches DORY History of vitamin D deficiency Plan: -Large-volume thoracentesis done today--> 1380 cc -Discussed the case with Dr. Medina and he discussed the case with Dr. Crouch who does note that the patient is nonsurgical and that Pleurx catheter would be appropriate -Family would like to discuss this with primary infrastructure technician, Dr. Watters, prior to making any decisions for the Pleurx catheter -Plans with regards to chemotherapy is outpatient oral therapy per discussion with daughter in [place] and patient -Patient would like to go home upon discharge and family indicates she has plenty of support -Family and patient indicated they signed papers with palliative care for ongoing palliative services and outpatient -Patient is currently on baseline oxygen -Continue therapy services -Blood sugars seem to be fairly well controlled with fasting sugar this morning at 167 -Await family decision with regards to Pleurx catheter placement Charges/Coding Visit Charges Inpatient E&M: 83607 Subs Hosp L2
[2021-12-15 12:05] LABS: Bedside Glucose 230 mg/dL (74-106)
[2021-12-15] MEDS: Ondansetron 4 MG/2 ML Vial IV (15:19)
[2021-12-15 16:30] LABS: Bedside Glucose 246 mg/dL (74-106)
[2021-12-16] VITALS (13 sets, daily range): BP systolic 107–119; BP diastolic 52–77; PULSE 73–98; RESP 16–18; TEMP 36.6–37.7; O2SAT 92–98
[2021-12-16 02:01] LABS: Bedside Glucose 268 mg/dL (74-106)
[2021-12-16 07:18] LABS: Absolute Lymphocyte Count 0.51 X10^3/uL (0.83-4.51); Absolute Neutrophil Count 5.5 X10^3/uL (2.0-7.7); Basophil# 0.03 X10^3/uL; Basophil% 0.4 % (0-1); Eosinophil# 0.43 X10^3/uL; Hematocrit 34.9 % (37-47); Hemoglobin 10.8 g/dL (12.0-15.0); Lymphocyte # 0.51 X10^3/ul (0.83-4.51); Lymphocyte % 7.1 % (19-41); Mean Corp Hgb Conc 30.9 g/dL (32-36); Mean Corpuscular Hgb 27.2 pg (27.0-32.0); Mean Corpuscular Volume 87.9 fL (81-99); Mean Platelet Vol. 9.5 fl (6.2-12.0); Monocyte# 0.62 X10^3/uL; Monocyte% 8.7 % (0-10); NRBC Flagged by Analyzer 0 % (0-5); Neutrophil # 5.52 X10^3/uL (2.7-7.7); Neutrophil % 77.2 % (47-70); POSITIVE DIFFERENTIAL YES; Platelet Count 247 K/mm3 (150-450); RBC Distribution Width CV 15.4 % (11.6-14.6); RBC Distribution Width SD 49.1 fl (35.1-43.9); Red Blood Count 3.97 M/mm3 (4.2-5.4); White Blood Count 7.2 K/mm3 (4.4-11.0)
--- NOTE | 2021-12-16 07:39 | RAD_ITS ---
STUDY: X-RAY CHEST REASON FOR EXAM: Female, 76 years old. s/p thoracentesis TECHNIQUE: Single AP portable view of the chest. COMPARISON: Comparison is made with prior study dated 12/15/2021. FINDINGS: EKG electrodes are seen. Stable opacity in the right upper lobe with volume loss. No evidence of pneumothorax. Stable pleural parenchymal changes at the left lung base. Normal size heart. Normal mediastinum and tanna. Normal visualized pulmonary arteries. There is atherosclerotic calcification of the aortic arch with tortuosity. There are diffuse degenerative changes of the visualized thoracic spine. Normal visualized ribs, clavicles, and shoulders. There is no demonstrated abnormality of the visualized soft tissue structures of the upper abdomen. RAD/Chest 1 View (Portable) IMPRESSION: Stable examination. Electronically Signed: Salazar Garcia MD at 10:08 EDT ,
[2021-12-16] MEDS: Insulin Lispro 100 UNIT/ML INSULN.PEN SC ×4 (07:48→21:12)
[2021-12-16 07:49] LABS: ALB/GLOB Ratio 0.5 RATIO (0.9-2.4); AST(SGOT) 17 U/L (15-37); Alanine Aminotransfer ALT/SGPT 20 U/L (13-56); Albumin, Serum 2.1 g/dL (3.2-5.0); Alkaline Phosphatase 155 U/L (45-117); Anion Gap 4 (5-15); BUN 14 mg/dL (7-18); BUN/Creat Ratio 23.1 RATIO (10-20); Calcium,Total 9.5 mg/dL (8.5-10.1); Chloride 97 mmol/L (98-107); Creatinine, Serum 0.61 mg/dL (0.55-1.02); EST Glomerular Filtration Rate 102 mL/min (>60); Est Glom Filt Rate - Afr Amer 124 mL/min (>60); Estimated Creatinine Clearance 40.21 ml/min; Globulin 4.3 g/dL (2.2-4.2); Glucose 166 mg/dL (74-106); Potassium 3.5 mmol/L (3.5-5.1); Protein, Total 6.4 g/dL (6.4-8.2); Sodium Level 138 mmol/L (136-145)
[2021-12-16 07:50] LABS: Differential Indicated SCAN CRITERIA MET
[2021-12-16 08:01] LABS: Differential Comment SCANNED
[2021-12-16 08:11] LABS: Bedside Glucose 157 mg/dL (74-106)
[2021-12-16] MEDS: Nadolol 40 MG Tablet PO (08:37)
[2021-12-16] MEDS: Amiodarone 200 MG Tablet 100 MG PO ×2 (08:37→21:08)
[2021-12-16] MEDS: NYSTATIN 500,000 UNIT/5 ML UDC 500000 UNIT PO ×4 (08:37→21:14)
[2021-12-16] MEDS: guaiFENesin 1,200 MG Tablet 1200 MG PO ×2 (08:38→21:13)
[2021-12-16 09:53] LABS: Pathologist Comment/Body Fluid Reviewed
--- NOTE | 2021-12-16 10:08 | PN.SURG_ITS ---
Subjective Subjective Patient seen and examined during AM rounds. She is found sitting up out of bed in a chair eating her breakfast. She states that she is having a difficult time eating any significant quantity, but denies any acute shortness of breath. Objective Data Objective Data Vital Signs: Vital Signs Temp Pulse Resp BP Pulse Ox O2 Del Method O2 Flow Rate 98.4 F 87 16 107/61 95 Room Air 4 12/16/21 09:00 12/16/21 09:00 12/16/21 09:00 12/16/21 09:00 12/16/21 09:00 12/16/21 09:00 12/16/21 09:00 FiO2 36 12/15/21 23:25 Oxygen Flow Rate (L/min) [5] 4 Oxygen Flow Rate (L/min) [4] 4 Oxygen Flow Rate (L/min) [2] 4 Oxygen Flow Rate (L/min) [1 ( 4 Initial Baseline)] Oxygen Flow Rate (L/min) 4 Oxygen Delivery Method [5] Nasal Cannula Oxygen Delivery Method [4] Nasal Cannula Oxygen Delivery Method [3] Nasal Cannula Oxygen Delivery Method [2] Nasal Cannula Oxygen Delivery Method [1 ( Nasal Cannula Initial Baseline)] Oxygen Delivery Method Room Air Weight: 286 lb 9.615 oz Body Mass Index (BMI) 50.8 Intake & Output: Intake and Output for Last 24 Hours 12/14/21 12/15/21 12/16/21 23:59 23:59 23:59 Intake Total 650 / 750 930 / 930 100 / 100 Output Total 500 / 625 1845 / 1845 175 / 175 Balance 150 / 125 -915 / -915 -75 / -75 Lab / Micro Data Result Diagrams: 12/16/21 06:50 12/16/21 06:50 Labs: Laboratory Results - last 24 hr 12/14/21 09:18: Fluid Glucose 175 H, Fluid Total Protein 4.0, Fluid LDH 129 12/15/21 09:18: Fluid RBC 285, Fluid Neutrophils 6, Fluid Lymphocytes 86, Fluid Monocytes 1, Fluid Macrophages 6, Fluid Other Cells 1, Fl Pathologist Comment Reviewed 12/15/21 10:51: POC Glucose 230 H 12/15/21 16:07: POC Glucose 246 H 12/15/21 21:06: POC Glucose 268 H 12/16/21 06:50: WBC 7.2, RBC 3.97 L, Hgb 10.8 L, Hct 34.9 L, MCV 87.9, MCH 27.2, MCHC 30.9 L, RDW Std Deviation 49.1 H, RDW Coeff of Aniceto 15.4 H, Plt Count 247, MPV 9.5, Immature Gran % (Auto) 0.600, Neut % (Auto) 77.2 H, Lymph % (Auto) 7.1 L, [place] % (Auto) 8.7, Eos % (Auto) 6.0 H, Baso % (Auto) 0.4, Absolute Neuts (auto) 5.5, Absolute Lymphs (auto) 0.51 L, Nucleated RBC % 0, Differential Comment SCANNED 12/16/21 06:50: Sodium 138, Potassium 3.5, Chloride 97 L, Carbon Dioxide 37.0 H, Anion Gap 4 L, BUN 14, Creatinine 0.61, Estim Creat Clear Calc 40.21, Est GFR (MDRD) Af Amer 124, Est GFR (MDRD) Non-Af 102, BUN/Creatinine Ratio 23.1 H, Glucose 166 H, Calcium 9.5, Total Bilirubin 0.40, AST 17, ALT 20, Alkaline Phosphatase 155 H, Total Protein 6.4, Albumin 2.1 L, Globulin 4.3 H, Albumin/Globulin Ratio 0.5 L 12/16/21 07:42: POC Glucose 157 H Micro: Microbiology 12/10/21 23:38 Sputum, Expectorated/Coughed Gram Stain - Final 12/10/21 23:38 Sputum, Expectorated/Coughed Respiratory Culture - Final Pseudomonas aeroginosa 12/09/21 15:10 Nasal Secretion SARS-CoV-2 Antigen (Rapid) - Final Physical Exam Const oriented x3 Resp normal respiratory effort Resp Narrative: Nasal cannula in place with baseline oxygen support Auscultation: wheezes throughout Assessment & Plan Assessment/Plan (1) Recurrent pleural effusion on right: PLAN: Patient underwent successful thoracentesis with radiology yesterday 12/15/2021 with drainage of 1370 mL of gilles fluid. A specimen was sent for further analysis. I did confirm with hospitalist service that serum labs were obtained to perform a complete analysis of fluid. Through conversations with patient's primary oncologist, Dr. Dan and primary flight engineer inspector, Dr. Watters?as well as Dr. Bailey of the hospitalist service we have obtained a consensus decision from the family and the care team for placement of a Pleurx catheter. I have advised both the family as well as the rest of the care team, that such a placement should await a point at which Mrs. Garcia experiences reaccumulation of the pleural fluid. Given that she is not facing any other acute needs which merit inpatient hospitalization, we will plan to discharge her today with close follow-up in our outpatient clinic and a pre-clinic chest x-ray to assess the progress of this pleural fluid. If chest x-ray does demonstrate reaccumulation at that point, I will look to set patient up for Pleurx catheter placement later the same week. This plan has been reviewed with both the patient and hospitalist service and a follow-up appointment will be made through our clinic today. Charges/Coding Visit Charges Inpatient E&M: 94171 Subs Hosp L1
--- NOTE | 2021-12-16 10:35 | PCM.CONS.GEN ---
Assessment & Plan Assessment/Plan (1) Recurrent pleural effusion on right: (2) Pneumonia: QUALIFIERS: Pneumonia type: due to unspecified organism Laterality: right Lung location: unspecified part of lung Qualified Code(s): J18.9 - Pneumonia, unspecified organism PLAN: Sputum with pseudomonas, on zosyn. Thoracentesis 12/15 showed exudate but only 4% polys. Culture not sent of fluid. On zosyn since 12/10. Plan on 7-14 days of abx depending on clinical progress Will follow, thank you (3) Breast cancer, right breast: HPI Consult Data Date of Consult: 12/16/21 HPI Narrative Reason for Consultation: pneumonia HPI Narrative: ALESSANDRO GUARDADO, is a 76 F who presented 12/09 with one month of progressive dyspnea, dry cough. No fever or chills. Has lung cancer, recurrent effusion. Reports covid vaccine x2, last dose in September. Sputum with pseudomonas, on zosyn since 12/10. Feeling better s/p thoracentesis 12/15 with 1.4L removed. Surgery following for possible pleurx placement. Full ROS performed and neg except as noted above. [facility] Medical History Acute and chronic respiratory failure with hypoxia Acute bronchitis due to Rhinovirus Acute severe exacerbation of asthma Allergic rhinitis Anemia Anxiety Asthma Asthmatic bronchitis Body mass index (BMI) 50-59.9, adult Breast cancer Chronic diarrhea Chronic respiratory failure with hypoxia Dependence on supplemental oxygen Depression Diabetes mellitus, type II Former tobacco use GERD (gastroesophageal reflux disease) History of primary non-small cell carcinoma of right lung History of right breast cancer Hypertension Immunosuppressed due to chemotherapy Migraine headache Migraines Obstructive sleep apnea Osteoarthritis Sleep apnea Vitamin D deficiency Home Medications cholecalciferol (vitamin D3) 1,250 mcg (50,000 unit) capsule 50,000 unit PO SUWE@0800 SUPPLEMENT 06/01/17 [History Last Taken 12/07/21] albuterol sulfate 2.5 mg (3 mL) inhalation Q2H PRN PRN Dyspnea, wheezing ##1 11/26/17 [Rx Last Taken 12/07/21] albuterol sulfate 90 mcg/actuation aerosol inhaler (ProAir HFA) 2 puff inhalation Q6H PRN PRN Dyspnea/Wheezing/Sob 03/25/18 [History Last Taken 12/07/21] budesonide 32 mcg/actuation nasal spray (Rhinocort Allergy) 2 puff DAILY ALLERGIES 06/12/18 [History Last Taken 12/07/21] methylphenidate HCl 20 mg tablet,extended release 20 mg PO BID ADHD 03/01/19 [History Last Taken 12/07/21] fluticasone furoate 200 mcg-vilanterol 25 mcg/dose inhalation powder (Breo Ellipta) 2 inh inhalation DAILY sob 12/09/21 [History Last Taken 12/07/21] insulin regular hum U-500 conc (Humulin R U-500 (Conc) Insulin Kwikpen) 65 unit subcut DINNER diabetes 12/09/21 [History Last Taken Unknown] insulin regular hum U-500 conc (Humulin R U-500 (Conc) Insulin Kwikpen) 75 unit subcut DAILY diabetes 12/09/21 [History Last Taken 12/08/21 10:00] nadolol 40 mg tablet 40 mg PO DAILY heart 12/09/21 [History Last Taken 12/07/21] paroxetine HCl 40 mg tablet (Paxil) 40 mg PO DAILY mood 12/09/21 [History Last Taken 12/07/21] Allergy/AdvReac Type Severity Reaction Status Date / Time adhesive tape Allergy tears skin Verified 09/19/21 16:42 cefadroxil [From Duricef] Allergy Unknown Verified 09/19/21 16:42 gluten Allergy celiac Verified 09/19/21 16:42 disease mesalamine [From Asacol] Allergy Unknown Verified 09/19/21 16:42 omalizumab [From Xolair] Allergy Unknown Verified 09/19/21 16:42 Sulfa (Sulfonamide Allergy swelling Verified 09/19/21 16:42 Antibiotics) as an oxycodone AdvReac Vomiting Verified 09/19/21 16:42 Family History (Reviewed 12/09/21 @ 18:06 by Jenna Cabrera ACCOUNTING PRACTICE MANAGER, ACCOUNTING PRACTICE MANAGER-C) Father Cancer Myocardial infarction Mother Cancer Metastatic breast CA Surgical History H/O rectocele repair History of lymph node dissection of right axilla History of mastectomy History of partial hysterectomy Hx of bilateral cataract extraction Hx of carpal tunnel repair Social History (Reviewed 12/09/21 @ 18:06 by Jenna Cabrera ACCOUNTING PRACTICE MANAGER, ACCOUNTING PRACTICE MANAGER-C) household members: spouse Smoking Status: Former smoker how long ago did patient quit smoking: Smoked x 2 years 1/2 ppd, quit ~ 50 years prior. alcohol intake: never substance use type: does not use Physical Exam Const alert, oriented x3 and no apparent distress General Appearance: cooperative HEENT normocephalic and head/scalp atraumatic Eyes PERRL and EOMs intact bilaterally Neck supple and No nodes Resp normal air movement and clear to auscultation bilaterally Cardio regular rate and regular rhythm GI soft to palpation, non-tender and non-distended Extremity no clubbing, cyanosis or edema Skin no rashes or lesions noted Neuro CN's II-XII intact bilaterally Lab / Micro Data Attestation: I reviewed the patient's lab results. Result Diagrams: 12/16/21 06:50 12/16/21 06:50 Labs: Laboratory Results - last 24 hr 12/15/21 09:18: Fl Pathologist Comment Reviewed 12/15/21 10:51: POC Glucose 230 H 12/15/21 16:07: POC Glucose 246 H 12/15/21 21:06: POC Glucose 268 H 12/16/21 06:50: WBC 7.2, RBC 3.97 L, Hgb 10.8 L, Hct 34.9 L, MCV 87.9, MCH 27.2, MCHC 30.9 L, RDW Std Deviation 49.1 H, RDW Coeff of Aniceto 15.4 H, Plt Count 247, MPV 9.5, Immature Gran % (Auto) 0.600, Neut % (Auto) 77.2 H, Lymph % (Auto) 7.1 L, [place] % (Auto) 8.7, Eos % (Auto) 6.0 H, Baso % (Auto) 0.4, Absolute Neuts (auto) 5.5, Absolute Lymphs (auto) 0.51 L, Nucleated RBC % 0, Differential Comment SCANNED 12/16/21 06:50: Sodium 138, Potassium 3.5, Chloride 97 L, Carbon Dioxide 37.0 H, Anion Gap 4 L, BUN 14, Creatinine 0.61, Estim Creat Clear Calc 40.21, Est GFR (MDRD) Af Amer 124, Est GFR (MDRD) Non-Af 102, BUN/Creatinine Ratio 23.1 H, Glucose 166 H, Calcium 9.5, Total Bilirubin 0.40, AST 17, ALT 20, Alkaline Phosphatase 155 H, Total Protein 6.4, Albumin 2.1 L, Globulin 4.3 H, Albumin/Globulin Ratio 0.5 L 12/16/21 07:42: POC Glucose 157 H Radiology Impression Chest X-Ray 12/16/21 07:39 IMPRESSION: Stable examination. Electronically Signed: Salazar Garcia MD at 10:08 EDT ,
--- NOTE | 2021-12-16 10:43 | PN.HOSP_ITS ---
Documented by User: HIRAL Pan 12/16/21 10:49 Subjective Subjective Patient seen and examined. Patient sitting in chair no distress noted. Dr. Medina and Hue MAI at bedside discussing plan of care with patient. Patient agreeable to plan. Daughter Santa updated this morning multiple times with progress and plan of care. Objective Data Objective Data Vital Signs: Vital Signs Temp Pulse Resp BP Pulse Ox O2 Del Method O2 Flow Rate 98.4 F 87 16 107/61 95 Room Air 4 12/16/21 09:00 12/16/21 09:00 12/16/21 09:00 12/16/21 09:00 12/16/21 09:00 12/16/21 09:00 12/16/21 09:00 FiO2 36 12/15/21 23:25 Oxygen Flow Rate (L/min) [5] 4 Oxygen Flow Rate (L/min) [4] 4 Oxygen Flow Rate (L/min) [2] 4 Oxygen Flow Rate (L/min) [1 ( 4 Initial Baseline)] Oxygen Flow Rate (L/min) 4 Oxygen Delivery Method [5] Nasal Cannula Oxygen Delivery Method [4] Nasal Cannula Oxygen Delivery Method [3] Nasal Cannula Oxygen Delivery Method [2] Nasal Cannula Oxygen Delivery Method [1 ( Nasal Cannula Initial Baseline)] Oxygen Delivery Method Room Air Weight: 286 lb 9.615 oz Body Mass Index (BMI) 50.8 Intake & Output: Intake and Output for Last 24 Hours 12/14/21 12/15/21 12/16/21 23:59 23:59 23:59 Intake Total 650 / 750 930 / 930 100 / 100 Output Total 500 / 625 1845 / 1845 175 / 175 Balance 150 / 125 -915 / -915 -75 / -75 Lab / Micro Data Result Diagrams: 12/16/21 06:50 12/16/21 06:50 Labs: Laboratory Results - last 24 hr 12/15/21 09:18: Fl Pathologist Comment Reviewed 12/15/21 10:51: POC Glucose 230 H 12/15/21 16:07: POC Glucose 246 H 12/15/21 21:06: POC Glucose 268 H 12/16/21 06:50: WBC 7.2, RBC 3.97 L, Hgb 10.8 L, Hct 34.9 L, MCV 87.9, MCH 27.2, MCHC 30.9 L, RDW Std Deviation 49.1 H, RDW Coeff of Aniceto 15.4 H, Plt Count 247, MPV 9.5, Immature Gran % (Auto) 0.600, Neut % (Auto) 77.2 H, Lymph % (Auto) 7.1 L, [place] % (Auto) 8.7, Eos % (Auto) 6.0 H, Baso % (Auto) 0.4, Absolute Neuts (auto) 5.5, Absolute Lymphs (auto) 0.51 L, Nucleated RBC % 0, Differential Comment SCANNED 12/16/21 06:50: Sodium 138, Potassium 3.5, Chloride 97 L, Carbon Dioxide 37.0 H, Anion Gap 4 L, BUN 14, Creatinine 0.61, Estim Creat Clear Calc 40.21, Est GFR (MDRD) Af Amer 124, Est GFR (MDRD) Non-Af 102, BUN/Creatinine Ratio 23.1 H, Glucose 166 H, Calcium 9.5, Total Bilirubin 0.40, AST 17, ALT 20, Alkaline Phosphatase 155 H, Total Protein 6.4, Albumin 2.1 L, Globulin 4.3 H, Albumin/Globulin Ratio 0.5 L 12/16/21 07:42: POC Glucose 157 H Micro: Microbiology 12/10/21 23:38 Sputum, Expectorated/Coughed Gram Stain - Final 12/10/21 23:38 Sputum, Expectorated/Coughed Respiratory Culture - Final Pseudomonas aeroginosa 12/09/21 15:10 Nasal Secretion SARS-CoV-2 Antigen (Rapid) - Final Radiography Diagnostic Testing: Radiology Impression Chest X-Ray 12/16/21 07:39 IMPRESSION: Stable examination. Electronically Signed: Salazar Garcia MD at 10:08 EDT , Physical Exam Const alert, oriented x3 and no apparent distress Orientation / Consciousness: awake Nutritional Appearance: obese HEENT normocephalic, head/scalp atraumatic and moist oral mucous membranes Eyes conjunctivae normal and no scleral icterus Neck no lymphadenopathy and supple Resp normal respiratory effort, no retractions, no use of accessory muscles and clear to auscultation bilaterally Effort and Inspection: able to speak in complete sentences and symmetric chest movement Auscultation: diminished lung sounds Cardio regular rate, S1 normal heart sound and S2 normal heart sound Peripheral Pulses: pulses 2+ throughout GI normal to inspection, nondistended, normoactive bowel sounds, soft to palpation and non-tender Inspection: central obesity and pannus present Extremity normal to inspection, full ROM and no clubbing, cyanosis or edema Skin no rashes or lesions noted, no wounds, skin turgor normal, no jaundice, no petechiae and no mottling Lesions: no lesions Rashes: no rashes Trauma: no lacerations or abrasions Neuro oriented x3, moves all extremities, no focal motor deficits and no sensory deficits noted Psych mental status grossly normal and affect normal Assessment & Plan Assessment/Plan (1) Atrial fibrillation with RVR: (2) Pneumonia: QUALIFIERS: Laterality: right Lung location: unspecified part of lung Pneumonia type: due to unspecified organism Qualified Code(s): J18.9 - Pneumonia, unspecified organism PLAN: Plan 1.? New onset atrial fibrillation with RVR -Continue Amiodarone, HR well controlled -Continue telemetry -Eliquis restarted 12/16/21 2.? Probable aspiration pneumonia -Continue IV Zosyn -Sputum culture positive for Pseudomonas -Continue scheduled DuoNeb and as needed albuterol aerosol treatment -ID following 3.? Oral thrush -Continue nystatin swish and swallow 4.? Right pleural effusion -Thoracentesis complete12/15/21, 1380 mL fluid removed -Dr. Medina consulted for evaluation for Pleurx cath, will follow up outpatient 12/22/21 in office, CXR ordered to be done prior to appointment 5.? Stage III lung cancer -Follows with Dr. Crouch -Patient waiting to start immunotherapy -Patient signed papers with palliative care 6.? Asthma with chronic hypoxic respiratory failure -Patient currently on 4 L nasal cannula which is her baseline -Continue albuterol and DuoNeb aerosol treatments 7.? Type 2 diabetes mellitus -ACH S blood sugars with sliding scale insulin ordered 8.? Hypertension -Vital signs per protocol, currently stable -Continue nadolol DVT prophylaxis-Eliquis This patient was seen by Vivian Olson NP-C under the supervision of Dr. Bailey. 14 minutes spent in clinical coordination of patient's plan of care. Documented by User: Dr. Elizabeth Bailey DO 12/16/21 13:04 Subjective Subjective Patient seen and examined. Patient sitting in chair no distress noted. Dr. Medina and Hue MAI at bedside discussing plan of care with patient. Patient agreeable to plan. Daughter Santa updated this morning multiple times with progress and plan of care. This patient was seen in conjunction with Vivian Valadez NP. The following represents my independent history and physical examination. Please see below for addendum the above. Patient reports that she is tired and had intermittent wakefulness throughout the night. She is requiring increased assistance but is refusing to go to a skilled facility and demanding to go home. Physical therapy has seen her and they strongly recommended placement and the patient intermittently agreed however then decided to again refuse recommended disposition for discharge to a skilled facility for ongoing strengthening and care and would like to go home with home health care. She will need a hospital bed and [facility] prior to discharge home. Objective Data Lab / Micro Data Result Diagrams: 12/16/21 06:50 12/16/21 06:50 Physical Exam Const alert, oriented x3, no apparent distress and well nourished Constitutional Narrative: Morbidly obese, elderly white female sitting up in a chair at the bedside, patient nontoxic, no conversational dyspnea, patient is on baseline oxygen at 4 L and appears to be comfortable HEENT head/scalp atraumatic, moist oral mucous membranes and oropharynx normal HEENT Narrative: Mallampati 2-3, no thrush Eyes PERRL and conjunctivae normal Eyes Narrative: No scleral icterus Neck no lymphadenopathy and supple Neck Narrative: Trachea midline, no thyroid enlargement, neck is short and thick Resp normal respiratory effort, no retractions and no use of accessory muscles Resp Narrative: Good air movement throughout today with diffuse diminished breath sounds Auscultation: Negative for crackles, rales, rhonchi or wheezes Cardio regular rate, S1 normal heart sound, S2 normal heart sound, no murmurs, no rub, no gallops, no clicks and no JVD Cardio Narrative: Irregular irregular rhythm GI normal to inspection, nondistended, normoactive bowel sounds, soft to palpation and non-tender Extremity no clubbing, cyanosis or edema Skin no rashes or lesions noted, no wounds, skin turgor normal, no jaundice, no petechiae and no mottling Neuro oriented x3, CN's II-XII intact bilaterally, moves all extremities, no focal motor deficits and no sensory deficits noted Neuro Narrative: Generalized weakness-marked proximal greater than distal Sensorium / Orientation: awake Speech: speech normal Psych Psych Narrative: Affect is somewhat flat/patient is slightly agitated today Assessment & Plan Assessment/Plan (1) Atrial fibrillation with RVR: (2) Pneumonia: QUALIFIERS: Laterality: right Lung location: unspecified part of lung Pneumonia type: due to unspecified organism Qualified Code(s): J18.9 - Pneumonia, unspecified organism PLAN: Plan Assessment: New onset atrial fibrillation with RVR Pseudomonal pneumonia Recurrent right pleural effusion status post multiple thoracenteses Oral thrush Stage III lung CA Chronic hypoxic respiratory failure DM-2 Hypertension History of asthma Hypertension Depression History of breast cancer GERD History of migraine headaches DORY History of vitamin D deficiency Plan: -Large-volume thoracentesis done 12/15--> 1380 cc -Discussed the case with Dr. Medina and he discussed the case with Dr. Crouch who does note that the patient is nonsurgical and that Pleurx catheter would be appropriate -Pleurx is to be placed when reaccumulation of fluid occurs to improve the safety of this procedure -Plan is for the patient to follow-up on Wednesday with Dr. Medina and have a [id number] x-ray -Likely procedure next week -Eliquis will need held prior to procedure -Plans with regards to chemotherapy is outpatient oral therapy per discussion with daughter in [place] and patient -Patient is fairly debilitated and is requiring increased level of care since admission with regards to transfers and mobility -Therapy has recommended placement but patient is adamant that she will be going home -Home health care ordered and will follow -Delivering a hospital bed and once that is available patient is okay to discharge -ID has seen the patient with regards to her Pseudomonas pneumonia and I suspect patient will need IV antibiotics but we are clarifying with infectious disease on antibiotic type and course -Restart Eliquis today -Follow-up chest x-ray shows stability when compared to previous postthoracentesis x-ray with no fluid recurrence at this time that is obvious -Family and patient indicated they signed papers with palliative care for ongoing palliative services and outpatient -Patient remains on baseline oxygen -Continue therapy services -Blood sugars remain stable Charges/Coding Visit Charges Inpatient E&M: 05797 Subs Hosp L2
--- NOTE | 2021-12-16 10:43 | CASEMGMT ---
SW was informed patient has agreed to go to a [facility]. SW met with patient, introduced self and role at [facility]. SW spoke with patient about SNF and patient said she will go depending on where she has to go. SW told patient that is up to her. SW provided patient with a list of SNF providers including quality and resource use data and consistent with the patient?s preferred geographic region, medical needs, and insurance network. SW explained to patient the facilities highlighted in pink are the ones that take her insurance. Patient asked about [facility] T[facility]. SW called [facility] and they do not have any beds. SW let patient know this information and she is going to call her family. SW will check back. Jordana MADDOX
--- NOTE | 2021-12-16 11:05 | CPS ---
4L bled into Home CPAP unit
[2021-12-16 11:25] LABS: Bedside Glucose 243 mg/dL (74-106)
--- NOTE | 2021-12-16 11:38 | CASEMGMT ---
ROMI checked back with patient and she said her daughter is working on an ambulance taking her home and up the steps. Patient told SW to call her daughter. SW called patient's daughter, Santa. Introduced self and role at [facility]. Santa confirmed she would like to honor her mom's wishes and make arrangements for her to go home. She is trying to arrange for a hospital bed to get delivered to patient's home. She will need a bed set up on the first floor. Santa would like an ambulance to transport patient home once she is able to secure a hospital bed. ROMI notified [facility] MADDOX
--- NOTE | 2021-12-16 11:57 | CASEMGMT ---
Addendum entered by Amparo Osuna 12/16/21 16:28: 1425 Call from Dereck at [facility] [place] and he states they have a bed in stock and will get it out to home and set up for pt. Aware to call daughter, Jessica, to get bed set up at home. Pt updated on all, voices understanding. Ginger SAN CM Addendum entered by Amparo Osuna 12/16/21 13:00: Pt's daughter is now also requesting this RN THAIS set up hospital bed for pt. Order faxed to [facility] [place] [facility] per request and call to Dereck at [facility] to notify. Dereck will call this RN CM back once he knows when bed can be delivered as pt's daughter would prefer she not go home without it. CM to follow. Ginger SAN CM Original Note: Plan earlier today was for pt to go to SNF per therapy recommendations but now pt/family would like to try and take pt home with [facility]. Pt states would like [facility] and referral to Niru at [facility]. Per Niru, they can accept pt for SN, PT/OT, aide, SW with SOC 12/17/21. Pt also would like w/c for discharge and states [facility] does her home oxygen. Order for w/c faxed to [facility] and call to [facility] to notify of order, Dereck voices understanding. Per Janelle LLANOS, pt's daughter is already working on trying to get pt a hospital bed also. Pt updated on all, voices understanding. CM to follow. Ginger SAN CM
--- NOTE | 2021-12-16 12:25 | CASEMGMT ---
ROMI received a voice mail from patient's daughter Santa. She is having issues getting a hold of Palliative care to obtain a hospital bed. Santa said she [place] [facility] [place] they would not give her a nielsen for a bed until they received an order for a hospital bed. Santa asked if an order could be sent to [facility]. ROMI notified JASWINDER PLASCENCIA, Amparo MADDOX
[2021-12-16] MEDS: hydrALAZINE 10 MG Tablet PO ×2 (13:39→21:07)
--- NOTE | 2021-12-16 15:03 | DCINST_ITS ---
Discharge Instructions Diet Discharge Diet: Low fat / Low cholesterol and 1800 Calorie Control Diet Activity Discharge Activity: Return to Normal Activity Dressing / Incision Call your doctor if you observe: Shortness of breath, Swelling in the ankles, Chest pain and Increased palpitations (irregular heartbeat) Follow Up Care Test Results: Test results from this visit will be discussed in further detail at your follow- up appointment, if applicable. Discharge Plan Admission Admit Date/Time: 12/09/21 17:43 Primary Reason for Your Visit: Recurrent pleural effusion Attending Provider: Elizabeth Bailey Primary Care Provider: Senait Jay Consulting Providers: Manoj Medina ; Isreal Childress ; Dre Watters V ; Dre Plascencia Discharge Orders/Prescriptions Prescriptions: New acetaminophen [Tylenol] 325 mg Tablet 650 mg PO Q6H PRN PRN (Reason: Pain 1-10 Or Fever) Qty: 0 0RF amiodarone 200 mg Tablet 100 mg PO BID 30 Days Qty: 30 0RF Eliquis 5 mg Tablet 5 mg PO BID Qty: 0 0RF hydralazine 10 mg Tablet 10 mg PO TID 30 Days Qty: 90 0RF Mucus Relief ER 1,200 mg Tablet Extended Release 12hr 1,200 mg PO BID Qty: 0 0RF ciprofloxacin HCl 750 mg tablet 750 mg PO BID Qty: 6 0RF Continued cholecalciferol (vitamin D3) 50,000 UNIT capsule 50,000 unit PO SUWE@0800 albuterol sulfate 2.5 MG/3 ML solution for nebulization 2.5 mg INHALATION Q2H PRN PRN (Reason: Dyspnea, wheezing) Qty: 1 0RF albuterol sulfate [ProAir HFA] 1 PUFF inhaler 2 puff inhalation Q6H PRN PRN (Reason: Dyspnea/Wheezing/Sob) budesonide [Rhinocort Allergy] 8.43 ML spray,non-aerosol 2 puff NARES DAILY methylphenidate HCl 20 MG tablet extended release 20 mg PO BID Label Comments: take 1 tablet by mouth twice a day paroxetine HCl [Paxil] 40 mg Tablet 40 mg PO DAILY nadolol 40 mg tablet 40 mg PO DAILY Label Comments: take 1 tablet by mouth once daily fluticasone furoate-vilanterol [Breo Ellipta] 200-25 mcg/dose blister with device 2 inh INHALATION DAILY Label Comments: inhale 1 puff by mouth INTO THE LUNGS once daily (USE GOOD ORAL CARE AFTER USE) Humulin R U-500 (Conc) Kwikpen 500 unit/mL (3 mL) insulin pen 75 unit SUBCUT DAILY Label Comments: INJECT 95 UNITS SUBCUTANEOUSLY DAILY BEFORE BREAKFAST AND 85 UNIT... (REFER TO PRESCRIPTION NOTES). Humulin R U-500 (Conc) Kwikpen 500 unit/mL (3 mL) insulin pen 65 unit SUBCUT DINNER Label Comments: INJECT 95 UNITS SUBCUTANEOUSLY DAILY BEFORE BREAKFAST AND 85 UNIT... (REFER TO PRESCRIPTION NOTES). Other Ambulatory Orders: Chest PA and Lateral (Routine) Timeframe: 20211222 Facility: [facility] - Location: [facility] Ordered By: Hue MAI Referrals / Follow Up: Senait Jay MD [Primary Care Provider] - Manoj Medina MD [STAFF PHYSICIAN] - 12/22/21 9:00 am Disposition Disposition (needs filled in before D/C Order can be placed): Home Health Service
--- NOTE | 2021-12-16 15:19 | CASEMGMT ---
ROMI called patient's daughter, Santa and let her know the RN THAIS did send an order for a hospital bed [place] [facility]. Santa said [facility] has to call her before they deliver the bed. Patient's will not know what to do with the bed and a couch has to be moved before it can be delivered. ROMI also let her know [facility] was set up for patient. ROMI let JASWINDER Celeste know that [facility] has to call Santa before delivering the bed. JASWINDER Celeste called [facility] right away and let them know. As long as bed can be delivered today staff will need to set up transportation home for patient. Jordana Marc [employer]
--- NOTE | 2021-12-16 15:21 | DS.PCM_ITS ---
Documented by User: HIRAL Pan 12/16/21 15:29 Providers Date of Admission: 12/09/21 Date of Discharge: 12/16/21 Primary Care Physician: Dr. Senait Jay MD Consultations 12/14/21 11:09 Consult: General Surgery Routine Consulting Provider: Manoj Medina Reason for Consult: Eval for Pleurx cath EMERGENT Consult: No MD Notified: Yes Date Notified: 12/14/21 Time Notified: 11:09 Method of Notification: Verbal 12/14/21 11:29 Consult: Environmental Protection Specialist / Pulmonary Medicine Routine Consulting Provider: Dre Watters V Reason for Consult: Lung CA, Known patient to Dr. Watters EMERGENT Consult: No MD Notified: Yes Date Notified: 12/14/21 Time Notified: 11:31 Method of Notification: md to md? 12/15/21 13:43 Consult: Infectious Disease Routine Consulting Provider: Dre Plascencia Reason for Consult: Resistant PsAg PNA EMERGENT Consult: No MD Notified: Yes Date Notified: 12/15/21 Time Notified: 14:39 Method of Notification: Answering Service Reason For Visit: Pneumonia and afib Diagnosis Discharge Diagnosis (1) Atrial fibrillation with RVR: Status: Acute Code(s): I48.91 - Unspecified atrial fibrillation (2) Pneumonia: Status: Acute Code(s): J18.9 - Pneumonia, unspecified organism Qualifiers: Laterality: right Lung location: unspecified part of lung Pneumonia type: due to unspecified organism Qualified Code(s): J18.9 - Pneumonia, unspecified organism Plan 1.? New onset atrial fibrillation with RVR -Continue Amiodarone, HR well controlled -Continue telemetry -Eliquis restarted 12/16/21 2.? Probable aspiration pneumonia -Continue IV Zosyn -Sputum culture positive for Pseudomonas -Continue scheduled DuoNeb and as needed albuterol aerosol treatment -ID following 3.? Oral thrush -Continue nystatin swish and swallow 4.? Right pleural effusion -Thoracentesis complete12/15/21, 1380 mL fluid removed -Dr. Medina consulted for evaluation for Pleurx cath, will follow up outpatient 12/22/21 in office, CXR ordered to be done prior to appointment 5.? Stage III lung cancer -Follows with Dr. Willa -Patient waiting to start immunotherapy -Patient signed papers with palliative care 6.? Asthma with chronic hypoxic respiratory failure -Patient currently on 4 L nasal cannula which is her baseline -Continue albuterol and DuoNeb aerosol treatments 7.? Type 2 diabetes mellitus -ACH S blood sugars with sliding scale insulin ordered 8.? Hypertension -Vital signs per protocol, currently stable -Continue nadolol DVT prophylaxis-Patricia This patient was seen by Vivian Olson NP-C under the supervision of Dr. Bailey. 14 minutes spent in clinical coordination of patient's plan of care. Medications at Discharge Home Medications cholecalciferol (vitamin D3) 1,250 mcg (50,000 unit) capsule 50,000 unit PO SUWE@0800 SUPPLEMENT 06/01/17 albuterol sulfate 2.5 mg/3 mL (0.083 %) solution for nebulization 2.5 mg (3 mL) inhalation Q2H PRN PRN Dyspnea, wheezing ##1 11/26/17 albuterol sulfate 90 mcg/actuation aerosol inhaler (ProAir HFA) 2 puff inhalation Q6H PRN PRN Dyspnea/Wheezing/Sob 03/25/18 budesonide 32 mcg/actuation nasal spray (Rhinocort Allergy) 2 puff DAILY ALLERGIES 06/12/18 methylphenidate HCl 20 mg tablet,extended release 20 mg PO BID ADHD 03/01/19 fluticasone furoate 200 mcg-vilanterol 25 mcg/dose inhalation powder (Breo Ellipta) 2 inh inhalation DAILY sob 12/09/21 insulin regular hum U-500 conc 500 unit/mL(3 mL) subcut pen (Humulin R U-500 (Conc) Insulin Kwikpen) 65 unit subcut DINNER diabetes 12/09/21 insulin regular hum U-500 conc 500 unit/mL(3 mL) subcut pen (Humulin R U-500 (Conc) Insulin Kwikpen) 75 unit subcut DAILY diabetes 12/09/21 nadolol 40 mg tablet 40 mg PO DAILY heart 12/09/21 paroxetine HCl 40 mg tablet (Paxil) 40 mg PO DAILY mood 12/09/21 acetaminophen 325 mg tablet (Tylenol) 650 mg PO Q6H PRN PRN Pain 1-10 Or Fever #0 tabs 12/16/21 amiodarone 200 mg tablet 100 mg PO BID 30 days #30 tabs 12/16/21 apixaban 5 mg tablet (Eliquis) 5 mg PO BID #0 tabs 12/16/21 ciprofloxacin HCl 750 mg tablet 750 mg PO BID #6 tabs 12/16/21 guaifenesin 1,200 mg tablet, extended release 12 hr (Mucus Relief ER) 1,200 mg PO BID #0 tabs 12/16/21 hydralazine 10 mg tablet 10 mg PO TID 30 days #90 tabs 12/16/21 Hospital Course Operations None Procedures 2-D Echocardiogram and Thoracentesis Summary of Care Provided Minutes Spent on Discharge: 35 Hospital Course: 76-year-old female who initially presented to the ER with complaints of shortness of breath. Patient has a history of pleural effusions for which she received thoracentesis with the last thoracentesis being on 11/24/2021. Patient also has a significant history of asthma with chronic respiratory failure. Patient is typically on 4 L nasal cannula oxygen at baseline. Of note patient also recently completed a 10-day course of steroids. Patient currently has lung cancer and completed chemo and radiation and is waiting to start immunotherapy. During patient's hospital stay she underwent a echocardiogram which demonstrated an EF of 65%. On 12/15/2021 patient underwent thoracentesis with 1300 mL was removed from her right chest. A consult was placed for Dr. Medina of general surgery for evaluation for Pleurx catheter as patient's pleural effusions have needed more more frequent training. Dr. Medina evaluated patient while she was inpatient and she will follow-up with him outpatient in his office on 12/22/2021. Chest x-ray ordered for that day to be done prior to appointment with Dr. Medina and at that time it will be decided when patient will have her Pleurx cath inserted. ID was also consulted as patient has Pseudomonas and it is a resistant strain. Patient underwent 7 days of Zosyn antibiotics for suspected aspiration pneumonia. Patient will be discharged home with 3 days of Cipro 750 twice daily I had IDs recommendations. Patient is going home with palliative care and will have a hospital bed at home to assist in her positioning and breathing. Patient will also be receiving PT and OT which was encouraged highly to the patient to participate actively and is this is the only way that she will get stronger and recover. Physical Exam Const alert, oriented x3, no apparent distress and well nourished Orientation / Consciousness: awake and lethargic Nutritional Appearance: obese HEENT normocephalic, head/scalp atraumatic, moist oral mucous membranes and oropharynx normal Eyes conjunctivae normal and no scleral icterus Eyes Narrative: No scleral icterus Neck no lymphadenopathy, supple and no JVD Resp normal respiratory effort and clear to auscultation bilaterally Resp Narrative: Good air movement throughout today with diffuse diminished breath sounds Effort and Inspection: able to speak in complete sentences and symmetric chest movement Auscultation: diminished lung sounds Cardio regular rhythm, S1 normal heart sound, S2 normal heart sound and no rub Peripheral Pulses: pulses 2+ throughout GI normal to inspection, nondistended, normoactive bowel sounds, soft to palpation and non-tender Inspection: central obesity and pannus present Extremity normal to inspection, full ROM and no clubbing, cyanosis or edema Skin no rashes or lesions noted, no wounds, skin turgor normal, no jaundice, no petechiae and no mottling Lesions: no lesions Rashes: no rashes Trauma: no lacerations or abrasions Neuro oriented x3, moves all extremities, no focal motor deficits and no sensory deficits noted Sensorium / Orientation: awake Speech: speech normal Psych mental status grossly normal and affect normal Weight / BMI Weight Weight: 286 lb 9.615 oz Body Mass Index (BMI) 50.8 ABG / Lab / Microbiology Data Result Diagrams: 12/16/21 06:50 12/16/21 06:50 Laboratory: Laboratory Results - last 24 hr 12/15/21 09:18: Fl Pathologist Comment Reviewed 12/15/21 16:07: POC Glucose 246 H 12/15/21 21:06: POC Glucose 268 H 12/16/21 06:50: WBC 7.2, RBC 3.97 L, Hgb 10.8 L, Hct 34.9 L, MCV 87.9, MCH 27.2, MCHC 30.9 L, RDW Std Deviation 49.1 H, RDW Coeff of Aniceto 15.4 H, Plt Count 247, MPV 9.5, Immature Gran % (Auto) 0.600, Neut % (Auto) 77.2 H, Lymph % (Auto) 7.1 L, [place] % (Auto) 8.7, Eos % (Auto) 6.0 H, Baso % (Auto) 0.4, Absolute Neuts (auto) 5.5, Absolute Lymphs (auto) 0.51 L, Nucleated RBC % 0, Differential Comment SCANNED 12/16/21 06:50: Sodium 138, Potassium 3.5, Chloride 97 L, Carbon Dioxide 37.0 H, Anion Gap 4 L, BUN 14, Creatinine 0.61, Estim Creat Clear Calc 40.21, Est GFR (MDRD) Af Amer 124, Est GFR (MDRD) Non-Af 102, BUN/Creatinine Ratio 23.1 H, Glu cose 166 H, Calcium 9.5, Total Bilirubin 0.40, AST 17, ALT 20, Alkaline Phosp hatase 155 H, Total Protein 6.4, Albumin 2.1 L, Globulin 4.3 H, Albumin/Globulin Ratio 0.5 L 12/16/21 07:42: POC Glucose 157 H 12/16/21 11:03: POC Glucose 243 H Microbiology: Microbiology 12/10/21 23:38 Sputum, Expectorated/Coughed Gram Stain - Final 12/10/21 23:38 Sputum, Expectorated/Coughed Respiratory Culture - Final Pseudomonas aeroginosa 12/09/21 15:10 Nasal Secretion SARS-CoV-2 Antigen (Rapid) - Final Radiography Diagnostic Testing: Radiology Impression Chest X-Ray 12/16/21 07:39 IMPRESSION: Stable examination. Electronically Signed: Salazar Garcia MD at 10:08 EDT Reading Location ID and State: [address] [place] [address] , Service support , D/C Instructions Discharge Diet: Low fat / Low cholesterol and 1800 Calorie Control Diet Call your doctor if you observe: Shortness of breath, Swelling in the ankles, Chest pain and Increased palpitations (irregular heartbeat) Meaningful Use Info Meaningful Use Diagnoses (Choose all that apply): None applicable Discharge Plan Admission Admit Date/Time: 12/09/21 17:43 Primary Reason for Your Visit: Recurrent pleural effusion Attending Provider: Elizabeth Bailey Primary Care Provider: Senait Jay Consulting Providers: Manoj Medina ; Isreal Childress ; Dre Watters V ; Dre Plascencia Discharge Orders/Prescriptions Prescriptions: New acetaminophen [Tylenol] 325 mg Tablet 650 mg PO Q6H PRN PRN (Reason: Pain 1-10 Or Fever) Qty: 0 0RF amiodarone 200 mg Tablet 100 mg PO BID 30 Days Qty: 30 0RF Eliquis 5 mg Tablet 5 mg PO BID Qty: 0 0RF hydralazine 10 mg Tablet 10 mg PO TID 30 Days Qty: 90 0RF Mucus Relief ER 1,200 mg Tablet Extended Release 12hr 1,200 mg PO BID Qty: 0 0RF ciprofloxacin HCl 750 mg tablet 750 mg PO BID Qty: 6 0RF Continued cholecalciferol (vitamin D3) 50,000 UNIT capsule 50,000 unit PO SUWE@0800 albuterol sulfate 2.5 MG/3 ML solution for nebulization 2.5 mg INHALATION Q2H PRN PRN (Reason: Dyspnea, wheezing) Qty: 1 0RF albuterol sulfate [ProAir HFA] 1 PUFF inhaler 2 puff inhalation Q6H PRN PRN (Reason: Dyspnea/Wheezing/Sob) budesonide [Rhinocort Allergy] 8.43 ML spray,non-aerosol 2 puff NARES DAILY methylphenidate HCl 20 MG tablet extended release 20 mg PO BID Label Comments: take 1 tablet by mouth twice a day paroxetine HCl [Paxil] 40 mg Tablet 40 mg PO DAILY nadolol 40 mg tablet 40 mg PO DAILY Label Comments: take 1 tablet by mouth once daily fluticasone furoate-vilanterol [Breo Ellipta] 200-25 mcg/dose blister with device 2 inh INHALATION DAILY Label Comments: inhale 1 puff by mouth INTO THE LUNGS once daily (USE GOOD ORAL CARE AFTER USE) Humulin R U-500 (Conc) Kwikpen 500 unit/mL (3 mL) insulin pen 75 unit SUBCUT DAILY Label Comments: INJECT 95 UNITS SUBCUTANEOUSLY DAILY BEFORE BREAKFAST AND 85 UNIT... (REFER TO PRESCRIPTION NOTES). Humulin R U-500 (Conc) Kwikpen 500 unit/mL (3 mL) insulin pen 65 unit SUBCUT DINNER Label Comments: INJECT 95 UNITS SUBCUTANEOUSLY DAILY BEFORE BREAKFAST AND 85 UNIT... (REFER TO PRESCRIPTION NOTES). Other Ambulatory Orders: Chest PA and Lateral (Routine) Timeframe: 20211222 Facility: [facility] - Location: [facility] Ordered By: Hue MAI Referrals / Follow Up: Senait Jay MD [Primary Care Provider] - 12/23/21 10:00 am (Your appointment is with Radha Silva-[employer] ) Manoj Medina MD [STAFF PHYSICIAN] - 12/22/21 9:00 am Dre Watters MD [STAFF PHYSICIAN] - Within 2 Weeks (call for appt) Disposition Disposition (needs filled in before D/C Order can be placed): Home Health Service Documented by User: Dr. Elizabeth Bailey DO 12/16/21 15:49 Providers Date of Admission: 12/09/21 Reason For Visit: Pneumonia and afib Diagnosis Discharge Diagnosis (1) Atrial fibrillation with RVR: Status: Acute Code(s): I48.91 - Unspecified atrial fibrillation (2) Pneumonia: Status: Acute Code(s): J18.9 - Pneumonia, unspecified organism Qualifiers: Laterality: right Lung location: unspecified part of lung Pneumonia type: due to unspecified organism Qualified Code(s): J18.9 - Pneumonia, unspecified organism Medications at Discharge Home Medications cholecalciferol (vitamin D3) 1,250 mcg (50,000 unit) capsule 50,000 unit PO SUWE@0800 SUPPLEMENT 06/01/17 albuterol sulfate 2.5 mg/3 mL (0.083 %) solution for nebulization 2.5 mg (3 mL) inhalation Q2H PRN PRN Dyspnea, wheezing ##1 11/26/17 albuterol sulfate 90 mcg/actuation aerosol inhaler (ProAir HFA) 2 puff inhalation Q6H PRN PRN Dyspnea/Wheezing/Sob 03/25/18 budesonide 32 mcg/actuation nasal spray (Rhinocort Allergy) 2 puff DAILY ALLERGIES 06/12/18 methylphenidate HCl 20 mg tablet,extended release 20 mg PO BID ADHD 03/01/19 fluticasone furoate 200 mcg-vilanterol 25 mcg/dose inhalation powder (Breo Ellipta) 2 inh inhalation DAILY sob 12/09/21 insulin regular hum U-500 conc 500 unit/mL(3 mL) subcut pen (Humulin R U-500 (Conc) Insulin Kwikpen) 65 unit subcut DINNER diabetes 12/09/21 insulin regular hum U-500 conc 500 unit/mL(3 mL) subcut pen (Humulin R U-500 (Conc) Insulin Kwikpen) 75 unit subcut DAILY diabetes 12/09/21 nadolol 40 mg tablet 40 mg PO DAILY heart 12/09/21 paroxetine HCl 40 mg tablet (Paxil) 40 mg PO DAILY mood 12/09/21 acetaminophen 325 mg tablet (Tylenol) 650 mg PO Q6H PRN PRN Pain 1-10 Or Fever #0 tabs 12/16/21 amiodarone 200 mg tablet 100 mg PO BID 30 days #30 tabs 12/16/21 apixaban 5 mg tablet (Eliquis) 5 mg PO BID #0 tabs 12/16/21 ciprofloxacin HCl 750 mg tablet 750 mg PO BID #6 tabs 12/16/21 guaifenesin 1,200 mg tablet, extended release 12 hr (Mucus Relief ER) 1,200 mg PO BID #0 tabs 12/16/21 hydralazine 10 mg tablet 10 mg PO TID 30 days #90 tabs 12/16/21 Hospital Course Summary of Care Provided Hospital Course: Mrs. Garcia is a 76-year-old white female who presented to the emergency department at [facility] on 12/09/2021 with shortness of breath and weakness. The patient reported that she was chronically short of breath at baseline on 4 L nasal cannula however on the morning admission she noted significantly worsening shortness of breath. She also reported a chronic cough which was similar to her baseline and denied fever or chills. In the emergency department she was noted to be in A. fib with RVR and had no documented history of atrial fibrillation. She has a past medical history of lung cancer which had been in remission however she recently found out that she has recurrence and was scheduled to begin immunotherapy which she completed but did not tolerate. Per discussion with the patient and her daughter, Santa, the next step in her plan i s to start oral immunotherapy with what the daughter thought was Keytruda. On admission sputum cultures were obtained and a CT of her chest showed a large right pleural effusion. An echocardiogram was obtained given her new A. fib and she was found of an EF of 65% with grossly normal LV size wall motion and systolic function. She was initially started on Eliquis given her new onset atrial fibrillation. But with her large right pleural effusion that increased in size her Eliquis was held and she was scheduled for thoracentesis that was completed on 12/15/2021. She was maintained on Zosyn since admission and found to have Pseudomonas growing in her sputum. She has had sputum on and previously but unfortunately this organism was somewhat resistant and infectious disease was consulted. Infectious disease recommendation at discharge were to complete course of antibiotics for 2 more days with ciprofloxacin at higher doses given previous resistance pattern with levofloxacin. She had completed a total 6-day course prior to discharge. Cytology from her thoracentesis was pending upon discharge. Given her recurrent pleural effusions which had required 4 thoracenteses at the time of admission a consultation to general surgery was placed for possible consideration of Pleurx catheter. General surgery had a discussion with her oncologist who indicated this was nonsurgical disease and recommended Pleurx placement. The case was also discussed with her primary transmission and coordination engineer, Dr. Watters, who discussed options at length with the daughter and they agreed that Pleurx catheter would be most appropriate. Given the patient had already been drained from her current pleural effusion General surgery wanted reaccumulation of fluid prior to catheter placement given risk of pneumothorax being higher without significant fluid in the pleural space and the patient was scheduled for follow-up with Dr. Medina on 12/22/2021 with a chest x-ray being performed prior to her visit. Her Eliquis was restarted and she was maintained on nadolol and amiodarone. Her heart rate control was good prior to discharge with rates anywhere from 70-90 but unfortunately she remained in atrial fibrillation. During her hospitalization she was seen at length by physical and Occupational Therapy and on the day of discharge was reevaluated and felt she needed placement of skilled facility. The patient initially agreed to skilled facility placement however being resistant previous but adamantly declined at the time of discharge and wanted to go home with home health care. She was initially resistant to home health care but finally agreed. We obtained a hospital bed for her and it was delivered prior to discharge and she was discharged in stable condition on 12/16/2021. Unfortunately I feel like her readmission risk is high given recommendations for skilled placement at discharg e and patient's desire to go home against recommendations. Family was aware of these recommendations as well prior to discharge. As noted above she has follow-up with Dr. Medina on Wednesday. She is to call to see Dr. Watters in the next 2 to 4 weeks for follow-up appointment. She is to follow-up with Dr. Crouch as scheduled. We recommend she follow-up with her primary care physician within the next 2 to 4 weeks. Discharge diagnoses: New onset atrial fibrillation with RVR Pseudomonal pneumonia Recurrent right pleural effusion status post multiple thoracenteses Oral thrush Stage III lung CA Chronic hypoxic respiratory failure DM-2 Hypertension History of asthma Hypertension Depression History of breast cancer GERD History of migraine headaches DORY History of vitamin D deficiency ABG / Lab / Microbiology Data Result Diagrams: 12/16/21 06:50 12/16/21 06:50 Discharge Plan Admission Admit Date/Time: 12/09/21 17:43 Primary Reason for Your Visit: Recurrent pleural effusion Attending Provider: Elizabeth Bailey Primary Care Provider: Senait Jay Consulting Providers: Manoj Medina ; Isreal Childress ; Dre Watters V ; Dre Plascencia Discharge Orders/Prescriptions Prescriptions: New acetaminophen [Tylenol] 325 mg Tablet 650 mg PO Q6H PRN PRN (Reason: Pain 1-10 Or Fever) Qty: 0 0RF amiodarone 200 mg Tablet 100 mg PO BID 30 Days Qty: 30 0RF Eliquis 5 mg Tablet 5 mg PO BID Qty: 0 0RF hydralazine 10 mg Tablet 10 mg PO TID 30 Days Qty: 90 0RF Mucus Relief ER 1,200 mg Tablet Extended Release 12hr 1,200 mg PO BID Qty: 0 0RF ciprofloxacin HCl 750 mg tablet 750 mg PO BID Qty: 6 0RF Continued cholecalciferol (vitamin D3) 50,000 UNIT capsule 50,000 unit PO SUWE@0800 albuterol sulfate 2.5 MG/3 ML solution for nebulization 2.5 mg INHALATION Q2H PRN PRN (Reason: Dyspnea, wheezing) Qty: 1 0RF albuterol sulfate [ProAir HFA] 1 PUFF inhaler 2 puff inhalation Q6H PRN PRN (Reason: Dyspnea/Wheezing/Sob) budesonide [Rhinocort Allergy] 8.43 ML spray,non-aerosol 2 puff NARES DAILY methylphenidate HCl 20 MG tablet extended release 20 mg PO BID Label Comments: take 1 tablet by mouth twice a day paroxetine HCl [Paxil] 40 mg Tablet 40 mg PO DAILY nadolol 40 mg tablet 40 mg PO DAILY Label Comments: take 1 tablet by mouth once daily fluticasone furoate-vilanterol [Breo Ellipta] 200-25 mcg/dose blister with device 2 inh INHALATION DAILY Label Comments: inhale 1 puff by mouth INTO THE LUNGS once daily (USE GOOD ORAL CARE AFTER USE) Humulin R U-500 (Conc) Kwikpen 500 unit/mL (3 mL) insulin pen 75 unit SUBCUT DAILY Label Comments: INJECT 95 UNITS SUBCUTANEOUSLY DAILY BEFORE BREAKFAST AND 85 UNIT... (REFER TO PRESCRIPTION NOTES). Humulin R U-500 (Conc) Kwikpen 500 unit/mL (3 mL) insulin pen 65 unit SUBCUT DINNER Label Comments: INJECT 95 UNITS SUBCUTANEOUSLY DAILY BEFORE BREAKFAST AND 85 UNIT... (REFER TO PRESCRIPTION NOTES). Other Ambulatory Orders: Chest PA and Lateral (Routine) Timeframe: 20211222 Facility: [facility] - Location: [facility] Ordered By: Hue MAI Referrals / Follow Up: Senait Jay MD [Primary Care Provider] - 12/23/21 10:00 am (Your appointment is with Radha Silva-CARSON ) Manoj Medina MD [STAFF PHYSICIAN] - 12/22/21 9:00 am Dre Watters MD [STAFF PHYSICIAN] - Within 2 Weeks (call for appt) Disposition Disposition (needs filled in before D/C Order can be placed): Home Health Service Charges/Coding Visit Charges Inpatient E&M: 99503 Disch Hosp
[2021-12-16 16:16] LABS: Bedside Glucose 214 mg/dL (74-106)
--- NOTE | 2021-12-16 16:27 | CASEMGMT ---
Pt's daughter, Santa, states they will call PCU and notify once hospital bed set up at home. Shari, PCU charge, and Lisa, PCU elementary secretary, aware as pt will need ambulance home, voice understanding. Ginger SAN CM
--- NOTE | 2021-12-16 20:05 | PCM.HOSP.N ---
Hospitalist Note Family and patient noted that home bed was not delivered. The company noted would not be able to arrange this evening. Discharge therefore delayed and staff notified overnight physician of these events and plan to re-assess in AM to obtain bed.
[2021-12-16] MEDS: APIXABAN 5 MG TABLET PO (21:09)
[2021-12-17] VITALS (7 sets, daily range): BP systolic 109–145; BP diastolic 58–80; PULSE 74–103; RESP 18–20; TEMP 36.1–36.8; O2SAT 97–98
[2021-12-17 03:00] LABS: Bedside Glucose 195 mg/dL (74-106)
[2021-12-17] MEDS: hydrALAZINE 10 MG Tablet PO (06:09)
[2021-12-17 06:23] LABS: Absolute Lymphocyte Count 0.57 X10^3/uL (0.83-4.51); Absolute Neutrophil Count 4.8 X10^3/uL (2.0-7.7); Basophil# 0.03 X10^3/uL; Basophil% 0.5 % (0-1); Eosinophils% 6.2 % (0-5); Hematocrit 33.9 % (37-47); Hemoglobin 10.7 g/dL (12.0-15.0); Lymphocyte # 0.57 X10^3/ul (0.83-4.51); Lymphocyte % 8.9 % (19-41); Mean Corp Hgb Conc 31.6 g/dL (32-36); Mean Corpuscular Hgb 27.8 pg (27.0-32.0); Mean Corpuscular Volume 88.1 fL (81-99); Mean Platelet Vol. 9.5 fl (6.2-12.0); Monocyte# 0.57 X10^3/uL; Monocyte% 8.9 % (0-10); NRBC Flagged by Analyzer 0 % (0-5); Neutrophil # 4.82 X10^3/uL (2.7-7.7); POSITIVE DIFFERENTIAL YES; Platelet Count 230 K/mm3 (150-450); RBC Distribution Width CV 15.6 % (11.6-14.6); RBC Distribution Width SD 49.1 fl (35.1-43.9); Red Blood Count 3.85 M/mm3 (4.2-5.4); White Blood Count 6.4 K/mm3 (4.4-11.0)
[2021-12-17] MEDS: Insulin Lispro 100 UNIT/ML INSULN.PEN SC ×2 (06:23→11:53)
[2021-12-17 06:24] LABS: Differential Indicated SCAN CRITERIA MET
[2021-12-17 06:43] LABS: Anisocytosis 1+
[2021-12-17 06:58] LABS: ALB/GLOB Ratio 0.5 RATIO (0.9-2.4); AST(SGOT) 16 U/L (15-37); Alanine Aminotransfer ALT/SGPT 18 U/L (13-56); Albumin, Serum 2.1 g/dL (3.2-5.0); Alkaline Phosphatase 139 U/L (45-117); Anion Gap 1 (5-15); BUN 15 mg/dL (7-18); BUN/Creat Ratio 23.4 RATIO (10-20); Calcium,Total 9.7 mg/dL (8.5-10.1); Chloride 97 mmol/L (98-107); Creatinine, Serum 0.64 mg/dL (0.55-1.02); EST Glomerular Filtration Rate 96 mL/min (>60); Est Glom Filt Rate - Afr Amer 116 mL/min (>60); Estimated Creatinine Clearance 40.21 ml/min; Globulin 4.2 g/dL (2.2-4.2); Glucose 192 mg/dL (74-106); Potassium 3.3 mmol/L (3.5-5.1); Protein, Total 6.3 g/dL (6.4-8.2); Sodium Level 137 mmol/L (136-145)
[2021-12-17 07:05] LABS: Bedside Glucose 186 mg/dL (74-106)
--- NOTE | 2021-12-17 08:32 | PCM.PN.BLA ---
Progress Note Patient evaluated in conjunction with Dr. Medina. Patient notes feeling much improved this morning. Patient denies feeling short of breath at rest. She voices she is ready to go home. Physical Exam Const alert, oriented x3 and no apparent distress Resp normal respiratory effort, normal air movement and clear to auscultation bilaterally Assessment & Plan Assessment/Plan (1) Recurrent pleural effusion on right: PLAN: May be discharged today from a surgical standpoint Appointment follow-up with Dr. Medina on Wednesday, 12/22. Patient to complete CXR prior to her appointment Wednesday morning. Order placed. Visit Charges Inpatient E&M: 84762 Subs Hosp L1
[2021-12-17] MEDS: guaiFENesin 1,200 MG Tablet 1200 MG PO (08:57)
[2021-12-17] MEDS: Amiodarone 200 MG Tablet 100 MG PO (08:57)
[2021-12-17] MEDS: APIXABAN 5 MG TABLET PO (08:58)
[2021-12-17] MEDS: Nadolol 40 MG Tablet PO (08:58)
[2021-12-17] MEDS: NYSTATIN 500,000 UNIT/5 ML UDC 500000 UNIT PO ×2 (08:59→14:23)
--- NOTE | 2021-12-17 09:21 | PCM.HOSP.N ---
Hospitalist Note Patient is unable to lie flat due to her respiratory issues and recurrent pleural effusions. She also has mobility issues which limit her ability to transfer and ambulate to her bedroom. She is in need of a hospital bed for continued care with relationship to her ongoing recurrent pleural effusions, lung cancer, and other comorbidities.
--- NOTE | 2021-12-17 09:28 | CASEMGMT ---
Addendum entered by Amparo Osuna 12/17/21 15:44: Pt to be sent home on Eliquis and [facility] retail pharmacy will apply 30 day free trial card as pt was not on this before. Ginger RN CM Addendum entered by Amparo Osuna 12/17/21 15:15: Pt's daughter called in and asked [employer] legal secretary, to set up pt transport home as the bed was delivered. Melodyaten RN CM Addendum entered by Amparo Osuna 12/17/21 15:12: Per Dereck at [facility], order was received and they are loading up equipment to deliver to pt home at this time. Dereck states he contacted pt's daughter, Santa, to update her. Ginger RN CM Addendum entered by Amparo Osuna 12/17/21 14:27: This RN CM received another fax from [facility] still requesting further documentation and documentation faxed once again to [facility]. Call to Erendira at [facility] and she was made aware that this has been faxed several times and she states 'It has to go thru triage first and then they send it to me.' Erendira aware that the first time it was faxed was early this morning and this RN CM asked about the turn around time on triage. Pt is awaiting bed delivery for discharge and Erendira is aware. This RN CM requested Erendira's email to scan documents and send and she proceeds to give this RN CM the email to their triage. This RN CM explained that they seem to be the problem as this RN CM has received confirmation on all faxes sent today. Erendira then proceeds to give this RN CM her work email. Proper documentation scanned and e-mailed to Erendira at [facility] and Dereck at [facility] at this time. Dereck aware of all and states will call pt's daughter to update. Ginger RN CM Addendum entered by Amparo Osuna 12/17/21 11:42: Call to Dereck at [facility] and he is aware that further documentation was faxed first thing this am. He states no concerns with bed getting set up for pt and will contact [facility]. CM to follow. Ginger RN CM Addendum entered by Amparo Osuna 12/17/21 10:16: Pt updated on all, voices understanding. Call to Niru at [facility] and she is aware pt should now d/c today, voices understanding. Ginger SAN CM Original Note: Pt's hospital bed at home was unable to be set up last pm d/t [facility] requiring further chart documentation prior to delivery. Further documentation faxed to [facility] this am. CM to follow. Ginger SAN CM
--- NOTE | 2021-12-17 11:05 | PHA.DC.MC ---
Pharmacy Service has performed discharge medication reconciliation and counseling for this patient. Patient is on u-500 at home, checks blood sugars twice daily. 1. AMIODARONE 100MG PO BID 2. APIXABAN 5MG PO BID 3. CIPROFLOXACIN 750MG PO BID 4. GUAIFENESIN 1200MG PO BID 5. HYDRALAZINE 10MG PO TID The patient's discharge medication list was reviewed for discrepancies and discrepancies were resolved. Home Medications cholecalciferol (vitamin D3) 1,250 mcg (50,000 unit) capsule 50,000 unit PO SUWE@0800 SUPPLEMENT 06/01/17 albuterol sulfate 2.5 mg/3 mL (0.083 %) solution for nebulization 2.5 mg (3 mL) inhalation Q2H PRN PRN Dyspnea, wheezing ##1 11/26/17 albuterol sulfate 90 mcg/actuation aerosol inhaler (ProAir HFA) 2 puff inhalation Q6H PRN PRN Dyspnea/Wheezing/Sob 03/25/18 budesonide 32 mcg/actuation nasal spray (Rhinocort Allergy) 2 puff DAILY ALLERGIES 06/12/18 methylphenidate HCl 20 mg tablet,extended release 20 mg PO BID ADHD 03/01/19 fluticasone furoate 200 mcg-vilanterol 25 mcg/dose inhalation powder (Breo Ellipta) 2 inh inhalation DAILY sob 12/09/21 insulin regular hum U-500 conc 500 unit/mL(3 mL) subcut pen (Humulin R U-500 (Conc) Insulin Kwikpen) 65 unit subcut DINNER diabetes 12/09/21 insulin regular hum U-500 conc 500 unit/mL(3 mL) subcut pen (Humulin R U-500 (Conc) Insulin Kwikpen) 75 unit subcut DAILY diabetes 12/09/21 nadolol 40 mg tablet 40 mg PO DAILY heart 12/09/21 paroxetine HCl 40 mg tablet (Paxil) 40 mg PO DAILY mood 12/09/21 acetaminophen 325 mg tablet (Tylenol) 650 mg PO Q6H PRN PRN Pain 1-10 Or Fever #0 tabs 12/16/21 amiodarone 200 mg tablet 100 mg PO BID 30 days #30 tabs 12/16/21 apixaban 5 mg tablet (Eliquis) 5 mg PO BID #0 tabs 12/16/21 ciprofloxacin HCl 750 mg tablet 750 mg PO BID #6 tabs 12/16/21 guaifenesin 1,200 mg tablet, extended release 12 hr (Mucus Relief ER) 1,200 mg PO BID #0 tabs 12/16/21 hydralazine 10 mg tablet 10 mg PO TID 30 days #90 tabs 12/16/21 The patient was counseled on the following discharge medications and changes in medications for homegoing were reviewed. The Reason for Use, instructions for use, and potential side effects were reviewed for all new medications. The patient's questions regarding all of their medications were answered. The patient was able to verbally demonstrate an understanding of their discharge medications.
--- NOTE | 2021-12-17 11:23 | DS.PCM_ITS ---
Documented by User: HIRAL Pan 12/17/21 11:29 Providers Date of Admission: 12/09/21 Date of Discharge: 12/17/21 Primary Care Physician: Dr. Senait Jay MD Consultations 12/14/21 11:09 Consult: General Surgery Routine Consulting Provider: Manoj Medina Reason for Consult: Eval for Pleurx cath EMERGENT Consult: No MD Notified: Yes Date Notified: 12/14/21 Time Notified: 11:09 Method of Notification: Verbal 12/14/21 11:29 Consult: Applications Support Engineer / Pulmonary Medicine Routine Consulting Provider: Dre Watters V Reason for Consult: Lung CA, Known patient to Dr. Watters EMERGENT Consult: No MD Notified: Yes Date Notified: 12/14/21 Time Notified: 11:31 Method of Notification: md to md? 12/15/21 13:43 Consult: Infectious Disease Routine Consulting Provider: Dre Plascencia Reason for Consult: Resistant PsAg PNA EMERGENT Consult: No MD Notified: Yes Date Notified: 12/15/21 Time Notified: 14:39 Method of Notification: Answering Service Reason For Visit: Pneumonia and afib Diagnosis Discharge Diagnosis (1) Recurrent pleural effusion on right: Status: Acute Code(s): J90 - Pleural effusion, not elsewhere classified Medications at Discharge Home Medications cholecalciferol (vitamin D3) 1,250 mcg (50,000 unit) capsule 50,000 unit PO SUWE@0800 SUPPLEMENT 06/01/17 albuterol sulfate 2.5 mg/3 mL (0.083 %) solution for nebulization 2.5 mg (3 mL) inhalation Q2H PRN PRN Dyspnea, wheezing ##1 11/26/17 albuterol sulfate 90 mcg/actuation aerosol inhaler (ProAir HFA) 2 puff inha lation Q6H PRN PRN Dyspnea/Wheezing/Sob 03/25/18 budesonide 32 mcg/actuation nasal spray (Rhinocort Allergy) 2 puff DAILY ALLERGIES 06/12/18 methylphenidate HCl 20 mg tablet,extended release 20 mg PO BID ADHD 03/01/19 fluticasone furoate 200 mcg-vilanterol 25 mcg/dose inhalation powder (Breo Jenniffer ed teacher) 2 inh inhalation DAILY sob 12/09/21 insulin regular hum U-500 conc 500 unit/mL(3 mL) subcut pen (Humulin R U-500 (Conc) Insulin Kwikpen) 65 unit subcut DINNER diabetes 12/09/21 insulin regular hum U-500 conc 500 unit/mL(3 mL) subcut pen (Humulin R U-500 (Conc) Insulin Kwikpen) 75 unit subcut DAILY diabetes 12/09/21 nadolol 40 mg tablet 40 mg PO DAILY heart 12/09/21 paroxetine HCl 40 mg tablet (Paxil) 40 mg PO DAILY mood 12/09/21 acetaminophen 325 mg tablet (Tylenol) 650 mg PO Q6H PRN PRN Pain 1-10 Or Fever #0 tabs 12/16/21 amiodarone 200 mg tablet 100 mg PO BID 30 days #30 tabs 12/16/21 apixaban 5 mg tablet (Eliquis) 5 mg PO BID #0 tabs 12/16/21 ciprofloxacin HCl 750 mg tablet 750 mg PO BID #6 tabs 12/16/21 guaifenesin 1,200 mg tablet, extended release 12 hr (Mucus Relief ER) 1,200 mg PO BID #0 tabs 12/16/21 hydralazine 10 mg tablet 10 mg PO TID 30 days #90 tabs 12/16/21 Hospital Course Procedures 2-D Echocardiogram and Thoracentesis Summary of Care Provided Minutes Spent on Discharge: 35 Hospital Course: 76-year-old female who initially presented to the ER with complaints of shortness of breath.? Patient has a history of pleural effusions for which she received thoracentesis with the last thoracentesis being on 11/24/2021.? Patient also has a significant history of asthma with chronic respiratory failure.? Patient is typically on 4 L nasal cannula oxygen at baseline.? Of note patient also recently completed a 10-day course of steroids.? Patient currently has lung cancer and completed chemo and radiation and is waiting to start immunotherapy.? During patient's hospital stay she underwent a echocardiogram which demonstrated an EF of 65%.? On 12/15/2021 patient underwent thoracentesis with 1300 mL was removed from her right chest.? A consult was placed for Dr. Medina of general surgery for evaluation for Pleurx catheter as patient's pleural effusions have needed more more frequent training.? Dr. Medina evaluated patient while she was inpatient and she will follow-up with him outpatient in his office on 12/22/2021.? Chest x-ray ordered for that day to be done prior to appointment with Dr. Medina and at that time it will be decided when patient will have her Pleurx cath inserted.? ID was also consulted as patient has Pseudomonas and it is a resistant strain.? Patient underwent 7 days of Zosyn antibiotics for suspe cted aspiration pneumonia.? Patient will be discharged home with 3 days of Cipro 750 twice daily I had IDs recommendations.? Patient is going home with palliative care and will have a hospital bed at home to assist in her positioning and breathing.? Patient will also be receiving PT and OT which was encouraged highly to the patient to participate actively and is this is the only way that she will get stronger and recover. Patient was set to be discharged on 12/16/2021 however there was a delay in the delivery of her hospital bed at home as well as delays with transportation home. Patient will be discharged home today 12/17/2021 Physical Exam Const alert, oriented x3, no apparent distress and well nourished Constitutional Narrative: Morbidly obese, elderly white female sitting up in a chair at the bedside, patient nontoxic, no conversational dyspnea, patient is on baseline oxygen at 4 L and appears to be comfortable Orientation / Consciousness: awake, oriented to person, oriented to place, oriented to time and lethargic Nutritional Appearance: obese HEENT normocephalic, head/scalp atraumatic, moist oral mucous membranes and oropharynx normal Eyes PERRL, EOMs intact bilaterally, conjunctivae normal and no scleral icterus Eyes Narrative: No scleral icterus Neck no lymphadenopathy, supple and no JVD Neck Narrative: Trachea midline, no thyroid enlargement, neck is short and thick Resp normal respiratory effort, no retractions, no use of accessory muscles and clear to auscultation bilaterally Resp Narrative: Good air movement throughout today with diffuse diminished breath sounds Effort and Inspection: able to speak in complete sentences and symmetric chest movement Auscultation: diminished lung sounds; Negative for crackles, rales, rhonchi or wheezes Cardio regular rate, regular rhythm, S1 normal heart sound, S2 normal heart sound, no murmurs, no rub, no gallops, no clicks and no JVD Cardio Narrative: Irregular irregular rhythm Peripheral Pulses: pulses 2+ throughout GI normal to inspection, nondistended, normoactive bowel sounds, soft to palpation, non-tender and non-distended Inspection: central obesity and pannus present Extremity normal to inspection, full ROM and no clubbing, cyanosis or edema Skin no rashes or lesions noted, no wounds, skin turgor normal, no jaundice, no petechiae and no mottling Lesions: no lesions Rashes: no rashes Trauma: no lacerations or abrasions Neuro oriented x3, CN's II-XII intact bilaterally, moves all extremities, no focal motor deficits, no sensory deficits noted and deep tendon reflexes 2+ bilaterally Neuro Narrative: Generalized weakness-marked proximal greater than distal Sensorium / Orientation: awake Speech: speech normal Psych mental status grossly normal and affect normal Psych Narrative: Affect is somewhat flat/patient is slightly agitated today Weight / BMI Weight Weight: 286 lb 9.615 oz Body Mass Index (BMI) 50.8 ABG / Lab / Microbiology Data Result Diagrams: 12/17/21 06:00 12/17/21 06:00 Laboratory: Laboratory Results - last 24 hr 12/15/21 09:18: Miscellaneous Cytology SEE PATHOLOGY REPORT 12/16/21 11:03: POC Glucose 243 H 12/16/21 15:56: POC Glucose 214 H 12/16/21 21:11: POC Glucose 195 H 12/17/21 06:00: WBC 6.4, RBC 3.85 L, Hgb 10.7 L, Hct 33.9 L, MCV 88.1, MCH 27.8, MCHC 31.6 L, RDW Std Deviation 49.1 H, RDW Coeff of Aniceto 15.6 H, Plt Count 230, MPV 9.5, Immature Gran % (Auto) 0.500, Neut % (Auto) 75.0 H, Lymph % (Auto) 8.9 L, [place] % (Auto) 8.9, Eos % (Auto) 6.2 H, Baso % (Auto) 0.5, Absolute Neuts (auto) 4.8, Absolute Lymphs (auto) 0.57 L, Nucleated RBC % 0, Anisocytosis 1+ 12/17/21 06:00: Sodium 137, Potassium 3.3 L, Chloride 97 L, Carbon Dioxide 39.0 H, Anion Gap 1 L, BUN 15, Creatinine 0.64, Estim Creat Clear Calc 40.21, Est GFR (MDRD) Af Amer 116, Est GFR (MDRD) Non-Af 96, BUN/Creatinine Ratio 23.4 H, Glucose 192 H, Calcium 9.7, Total Bilirubin 0.30, AST 16, ALT 18, Alkaline Phosphatase 139 H, Total Protein 6.3 L, Albumin 2.1 L, Globulin 4.2, [place] min/Globulin Ratio 0.5 L 12/17/21 06:21: POC Glucose 186 H Microbiology: Microbiology 12/10/21 23:38 Sputum, Expectorated/Coughed Gram Stain - Final 12/10/21 23:38 Sputum, Expectorated/Coughed Respiratory Culture - Final Pseudomonas aeroginosa 12/09/21 15:10 Nasal Secretion SARS-CoV-2 Antigen (Rapid) - Final D/C Instructions Discharge Diet: Low fat / Low cholesterol and 1800 Calorie Control Diet Call your doctor if you observe: Shortness of breath, Swelling in the ankles, Chest pain and Increased palpitations (irregular heartbeat) Meaningful Use Info Meaningful Use Diagnoses (Choose all that apply): None applicable Discharge Plan Admission Admit Date/Time: 12/09/21 17:43 Primary Reason for Your Visit: Recurrent pleural effusion Attending Provider: Elizabeth Bailey Primary Care Provider: Senait Jay Consulting Providers: Manoj Medina ; Isreal Childress ; Dre Watters V ; Dre Plascencia Discharge Orders/Prescriptions Prescriptions: New acetaminophen [Tylenol] 325 mg Tablet 650 mg PO Q6H PRN PRN (Reason: Pain 1-10 Or Fever) Qty: 0 0RF amiodarone 200 mg Tablet 100 mg PO BID 30 Days Qty: 30 0RF Eliquis 5 mg Tablet 5 mg PO BID Qty: 0 0RF hydralazine 10 mg Tablet 10 mg PO TID 30 Days Qty: 90 0RF Mucus Relief ER 1,200 mg Tablet Extended Release 12hr 1,200 mg PO BID Qty: 0 0RF ciprofloxacin HCl 750 mg tablet 750 mg PO BID Qty: 6 0RF Continued cholecalciferol (vitamin D3) 50,000 UNIT capsule 50,000 unit PO SUWE@0800 albuterol sulfate 2.5 MG/3 ML solution for nebulization 2.5 mg INHALATION Q2H PRN PRN (Reason: Dyspnea, wheezing) Qty: 1 0RF albuterol sulfate [ProAir HFA] 1 PUFF inhaler 2 puff inhalation Q6H PRN PRN (Reason: Dyspnea/Wheezing/Sob) budesonide [Rhinocort Allergy] 8.43 ML spray,non-aerosol 2 puff NARES DAILY methylphenidate HCl 20 MG tablet extended release 20 mg PO BID Label Comments: take 1 tablet by mouth twice a day paroxetine HCl [Paxil] 40 mg Tablet 40 mg PO DAILY nadolol 40 mg tablet 40 mg PO DAILY Label Comments: take 1 tablet by mouth once daily fluticasone furoate-vilanterol [Breo Ellipta] 200-25 mcg/dose blister with device 2 inh INHALATION DAILY Label Comments: inhale 1 puff by mouth INTO THE LUNGS once daily (USE GOOD ORAL CARE AFTER USE) Humulin R U-500 (Conc) Kwikpen 500 unit/mL (3 mL) insulin pen 75 unit SUBCUT DAILY Label Comments: INJECT 95 UNITS SUBCUTANEOUSLY DAILY BEFORE BREAKFAST AND 85 UNIT... (REFER TO PRESCRIPTION NOTES). Humulin R U-500 (Conc) Kwikpen 500 unit/mL (3 mL) insulin pen 65 unit SUBCUT DINNER Label Comments: INJECT 95 UNITS SUBCUTANEOUSLY DAILY BEFORE BREAKFAST AND 85 UNIT... (REFER TO PRESCRIPTION NOTES). Other Ambulatory Orders: Chest PA and Lateral (Routine) Timeframe: 20211222 Facility: [facility] - Location: [facility] Ordered By: Hue MAI Referrals / Follow Up: Senait Jay MD [Primary Care Provider] - 12/23/21 10:00 am (Your appointment is with Radha Silva-DENTAL RESIDENT ) Manoj Medina MD [STAFF PHYSICIAN] - 12/22/21 9:00 am Dre Watters MD [STAFF PHYSICIAN] - Within 2 Weeks (call for appt) Disposition Disposition (needs filled in before D/C Order can be placed): Home Health Service Documented by User: Dr. Elizabeth Bailey DO 12/17/21 11:55 Providers Date of Admission: 12/09/21 Reason For Visit: Pneumonia and afib Diagnosis Discharge Diagnosis (1) Recurrent pleural effusion on right: Status: Acute Code(s): J90 - Pleural effusion, not elsewhere classified Medications at Discharge Home Medications cholecalciferol (vitamin D3) 1,250 mcg (50,000 unit) capsule 50,000 unit PO SUWE@0800 SUPPLEMENT 06/01/17 albuterol sulfate 2.5 mg/3 mL (0.083 %) solution for nebulization 2.5 mg (3 mL) inhalation Q2H PRN PRN Dyspnea, wheezing ##1 11/26/17 albuterol sulfate 90 mcg/actuation aerosol inhaler (ProAir HFA) 2 puff inhalation Q6H PRN PRN Dyspnea/Wheezing/Sob 03/25/18 budesonide 32 mcg/actuation nasal spray (Rhinocort Allergy) 2 puff DAILY ALLER GIES 06/12/18 methylphenidate HCl 20 mg tablet,extended release 20 mg PO BID ADHD 03/01/19 fluticasone furoate 200 mcg-vilanterol 25 mcg/dose inhalation powder (Breo Ellipta) 2 inh inhalation DAILY sob 12/09/21 insulin regular hum U-500 conc 500 unit/mL(3 mL) subcut pen (Humulin R U-500 (Conc) Insulin Kwikpen) 65 unit subcut DINNER diabetes 12/09/21 insulin regular hum U-500 conc 500 unit/mL(3 mL) subcut pen (Humulin R U-500 (Conc) Insulin Kwikpen) 75 unit subcut DAILY diabetes 12/09/21 nadolol 40 mg tablet 40 mg PO DAILY heart 12/09/21 paroxetine HCl 40 mg tablet (Paxil) 40 mg PO DAILY mood 12/09/21 acetaminophen 325 mg tablet (Tylenol) 650 mg PO Q6H PRN PRN Pain 1-10 Or Fever #0 tabs 12/16/21 amiodarone 200 mg tablet 100 mg PO BID 30 days #30 tabs 12/16/21 apixaban 5 mg tablet (Eliquis) 5 mg PO BID #0 tabs 12/16/21 ciprofloxacin HCl 750 mg tablet 750 mg PO BID #6 tabs 12/16/21 guaifenesin 1,200 mg tablet, extended release 12 hr (Mucus Relief ER) 1,200 mg PO BID #0 tabs 12/16/21 hydralazine 10 mg tablet 10 mg PO TID 30 days #90 tabs 12/16/21 Hospital Course Summary of Care Provided Hospital Course: Mrs. Garcia is a 76-year-old white female who presented to the emergency depart ment at [facility] on 12/09/2021 with shortness of breath and weakness.? The patient reported that she was chronically short of breath at baseline on 4 L nasal cannula however on the morning admission she noted significantly worsening shortness of breath.? She also reported a chronic cough which was similar to her baseline and denied fever or chills.? In the emergency department she was noted to be in A. fib with RVR and had no documented history of atrial fibrillation.? She has a past medical history of lung cancer which had been in remission however she recently found out that she has recurrence and was scheduled to begin immunotherapy which she completed but did not tolerate.? Per discussion with the patient and her daughter, Santa, the next step in her plan is to start oral immunotherapy with what the daughter thought was Keytruda.? On admission sputum cultures were obtained and a CT of her chest showed a large right pleural effusion.? An echocardiogram was obtained given her new A. fib and she was found of an EF of 65% with grossly normal LV size wall motion and sy stolic function.? She was initially started on Eliquis given her new onset atrial fibrillation.? But with her large right pleural effusion that increased in size her Eliquis was held and she was scheduled for thoracentesis that was completed on 12/15/2021.? She was maintained on Zosyn since admission and found to have Pseudomonas growing in her sputum.? She has had sputum on and previously but unfortunately this organism was somewhat resistant and infectious disease was consulted.? Infectious disease recommendation at discharge were to complete course of antibiotics for 2 more days with ciprofloxacin at higher doses given previous resistance pattern with levofloxacin.? She had completed a total 6-day course prior to discharge.? Cytology from her thoracentesis was pending upon discharge.? Given her recurrent pleural effusions which had required 4 thoracenteses at the time of admission a consultation to general surgery was placed for possible consideration of Pleurx catheter.? General surgery had a discussion with her oncologist who indicated this was nonsurgical disease and recommended Pleurx placement.? The case was also discussed with her primary rigging loft mechanic, Dr. Watters, who discussed options at length with the daughter and they agreed that Pleurx catheter would be most appropriate.? Given the patient had already been drained from her current pleural effusion General surgery wanted reaccumulation of fluid prior to catheter placement given risk of pneumothorax being higher without significant fluid in the pleural space and the patient was scheduled for follow-up with Dr. Medina on 12/22/2021 with a chest x-ray being performed prior to her visit.? Her Eliquis was restarted and she was maintained on nadolol and amiodarone.? Her heart rate control was good prior to discharge with rates anywhere from 70-90 but unfortunately she remained in atrial fibrillation.? During her hospitalization she was seen at length by physical and Occupational Therapy and on the day of discharge was reevaluated and felt she needed placement of skilled facility.? The patient initially agreed to skilled facility placement however being resistant previous but adamantly declined at the time of discharge and wanted to go home with home health care.? She was initially resistant to home health care but finally agreed.?Unfortunately I feel like her readmission risk is high given recommendations for skilled placement at discharge and patient's desire to go home against recommendations.? Family was aware of these recommendations as well prior to discharge.? As noted above she has follow-up with Dr. Medina on Wednesday.? She is to call to see Dr. Watters in the next 2 to 4 weeks for follow-up appointment.? She is to follow-up with Dr. Crouch as scheduled.? We recommend she follow-up with her primary care physician within the next 2 to 4 weeks. Discharge was held up 24 hours secondary to lack of bed availability at home and [facility] inability to deliver hospital bed last evening. The patient was stable throughout the night and she was discharged on 12/17/2021. Discharge diagnoses: New onset atrial fibrillation with RVR Pseudomonal pneumonia Recurrent right pleural effusion status post multiple thoracenteses Oral thrush Stage III lung CA Chronic hypoxic respiratory failure DM-2 Hypertension History of asthma Hypertension Depression History of breast cancer GERD History of migraine headaches DORY History of vitamin D deficiency Physical Exam Narrative No significant issues overnight. Const alert, oriented x3, no apparent distress and well nourished Constitutional Narrative: Morbidly obese, elderly white female lying in left side-lying in bed, patient nontoxic, no conversational dyspnea, patient is on baseline oxygen at 4 L and appears to be comfortable, nursing at bedside HEENT normocephalic, head/scalp atraumatic, moist oral mucous membranes and oropharynx normal HEENT Narrative: Mallampati 3, no thrush Eyes PERRL and EOMs intact bilaterally Eyes Narrative: No scleral icterus, conjunctiva are normal Neck no lymphadenopathy, supple and no JVD Resp normal respiratory effort and clear to auscultation bilaterally Resp Narrative: Mildly diminished right base but otherwise clear, intermittent cough Auscultation: diminished lung sounds; Negative for rhonchi or wheezes Cardio regular rate, S1 normal heart sound, S2 normal heart sound, no murmurs, no rub, no gallops and peripheral pulses 2+ throughout GI normal to inspection, nondistended, normoactive bowel sounds, soft to palpation, non-tender and non-distended Extremity normal capillary refill, no clubbing, cyanosis or edema and no calf tenderness Skin no rashes or lesions noted, no wounds, skin turgor normal, no jaundice, no petechiae and no mottling Neuro CN's II-XII intact bilaterally, no focal motor deficits and no sensory deficits noted Speech: speech normal Motor Exam: general weakness Psych affect normal Psych Narrative: Appropriately interactive ABG / Lab / Microbiology Data Result Diagrams: 12/17/21 06:00 12/17/21 06:00 Discharge Plan Admission Admit Date/Time: 12/09/21 17:43 Primary Reason for Your Visit: Recurrent pleural effusion Attending Provider: Elizabeth Bailey Primary Care Provider: Senait Jay Consulting Providers: Manoj Medina ; Isreal Childress ; Dre Watters V ; Dre Plascencia Discharge Orders/Prescriptions Prescriptions: New acetaminophen [Tylenol] 325 mg Tablet 650 mg PO Q6H PRN PRN (Reason: Pain 1-10 Or Fever) Qty: 0 0RF amiodarone 200 mg Tablet 100 mg PO BID 30 Days Qty: 30 0RF Eliquis 5 mg Tablet 5 mg PO BID Qty: 0 0RF hydralazine 10 mg Tablet 10 mg PO TID 30 Days Qty: 90 0RF Mucus Relief ER 1,200 mg Tablet Extended Release 12hr 1,200 mg PO BID Qty: 0 0RF ciprofloxacin HCl 750 mg tablet 750 mg PO BID Qty: 6 0RF Continued cholecalciferol (vitamin D3) 50,000 UNIT capsule 50,000 unit PO SUWE@0800 albuterol sulfate 2.5 MG/3 ML solution for nebulization 2.5 mg INHALATION Q2H PRN PRN (Reason: Dyspnea, wheezing) Qty: 1 0RF albuterol sulfate [ProAir HFA] 1 PUFF inhaler 2 puff inhalation Q6H PRN PRN (Reason: Dyspnea/Wheezing/Sob) budesonide [Rhinocort Allergy] 8.43 ML spray,non-aerosol 2 puff NARES DAILY methylphenidate HCl 20 MG tablet extended release 20 mg PO BID Label Comments: take 1 tablet by mouth twice a day paroxetine HCl [Paxil] 40 mg Tablet 40 mg PO DAILY nadolol 40 mg tablet 40 mg PO DAILY Label Comments: take 1 tablet by mouth once daily fluticasone furoate-vilanterol [Breo Ellipta] 200-25 mcg/dose blister with device 2 inh INHALATION DAILY Label Comments: inhale 1 puff by mouth INTO THE LUNGS once daily (USE GOOD ORAL CARE AFTER USE) Humulin R U-500 (Conc) Kwikpen 500 unit/mL (3 mL) insulin pen 75 unit SUBCUT DAILY Label Comments: INJECT 95 UNITS SUBCUTANEOUSLY DAILY BEFORE BREAKFAST AND 85 UNIT... (REFER TO PRESCRIPTION NOTES). Humulin R U-500 (Conc) Kwikpen 500 unit/mL (3 mL) insulin pen 65 unit SUBCUT DINNER Label Comments: INJECT 95 UNITS SUBCUTANEOUSLY DAILY BEFORE BREAKFAST AND 85 UNIT... (REFER TO PRESCRIPTION NOTES). Other Ambulatory Orders: Chest PA and Lateral (Routine) Timeframe: 20211222 Facility: [facility] - Location: [facility] Ordered By: Hue MAI Referrals / Follow Up: Senait Jay MD [Primary Care Provider] - 12/23/21 10:00 am (Your appointment is with Radha Silva-DENTAL RESIDENT ) Manoj Medina MD [STAFF PHYSICIAN] - 12/22/21 9:00 am Dre Watters MD [STAFF PHYSICIAN] - Within 2 Weeks (call for appt) Disposition Disposition (needs filled in before D/C Order can be placed): Home Health Service Charges/Coding Visit Charges Inpatient E&M: 51144 Disch Hosp
[2021-12-17 14:46] LABS: Bedside Glucose 220 mg/dL (74-106)
--- NOTE | 2021-12-17 18:12 | NURSING ---
Patients daughter in law came to nurses station demanding wheel chair, she is taking the patient home. This RN informed family member that there is a squad coming to take her home. The family member stated she is aware and does not care, they hve waited too long she is taking her home. This RN spoke with supervisor propellant charge loading Erendira. This RN verified with the daughter in law that she would beable to help patient from car to inside house. The DIL stated she can. DIL also had portable oxygen. All belongings with patient, IV removed and left. Transport cancelled.
== END 2021-12-17 18:09 | disposition home health service (06) | DRG 178 ==
LOC: ED 17:46 → PCU 18:17
PROVIDERS: Nurse Practitioner Family; Admitting Provider Family Medicine; Emergency Provider Emergency Medicine; PCP Internal Medicine; Visit Provider Internal Medicine
DX: J15.1 Pneumonia due to Pseudomonas (principal); J90 Pleural effusion, not elsewhere classified; J96.11 Chronic respiratory failure with hypoxia; B37.0 Candidal stomatitis; Z68.43 Body mass index [BMI] 50.0-59.9, adult; C34.91 Malignant neoplasm of unspecified part of right bronchus or lung; J44.0 Chronic obstructive pulmonary disease with (acute) lower respiratory infection; Z16.29 Resistance to other single specified antibiotic; Z99.81 Dependence on supplemental oxygen; I48.91 Unspecified atrial fibrillation; J69.0 Pneumonitis due to inhalation of food and vomit; E11.9 Type 2 diabetes mellitus without complications; E66.01 Morbid (severe) obesity due to excess calories; Z79.4 Long term (current) use of insulin; E78.00 Pure hypercholesterolemia, unspecified; G47.33 Obstructive sleep apnea (adult) (pediatric); I10 Essential (primary) hypertension; K21.9 Gastro-esophageal reflux disease without esophagitis; E55.9 Vitamin D deficiency, unspecified; F32.A Depression, unspecified; F90.9 Attention-deficit hyperactivity disorder, unspecified type; Z90.11 Acquired absence of right breast and nipple; Z66 Do not resuscitate; Z51.5 Encounter for palliative care; Z79.01 Long term (current) use of anticoagulants; Z79.899 Other long term (current) drug therapy; Z85.3 Personal history of malignant neoplasm of breast; Z87.891 Personal history of nicotine dependence
CPT/HCPCS: 32555; 36415; 36591; 71045; 71046; 71250; 71275; 73060; 80048; 80053; 82803; 82945; 82962; 83605; 83615; 83880; 84157; 84484; 85025; 85610; 85730; 87070; 87077; 87184; 87186; 87205; 87811; 88108; 88305; 88313; 89050; 93005; 93306; 94640; 94660; 94762; 97110; 97116; 97162; 97166; 97530; 97535; 97802; 99285; Q9957; Q9967; A4216; C8929; J2405

== ENCOUNTER 2021-12-19 18:22 | Inpatient (IN) | payer MEDICARE, SELFPAY ==
[2021-12-19 18:26] VITALS: BP 142/103; PULSE 81; RESP 29; TEMP 37.1; O2SAT 94; BMI 50.1
[2021-12-19 18:29] VITALS: BP 142/103; PULSE 79; RESP 22; TEMP 37.1; O2SAT 99
[2021-12-19 18:36] VITALS: O2SAT 97
--- NOTE | 2021-12-19 19:14 | EKG12_ITS ---
Test Reason : ARRYTHMIA Blood Pressure : / mmHG Vent. Rate : 080 BPM Atrial Rate : 120 BPM P-R Int : 000 ms QRS Dur : 082 ms QT Int : 410 ms P-R-T Axes : 000 014 073 degrees QTc Int : 472 ms Atrial fibrillation Abnormal ECG Confirmed by KATIE ANAYA MD ([id number]), assignment editor ELIANA ROY ([id number]) on 12/22/2021 11:33:28 AM Referred By: JESUS Confirmed By:KATIE ANAYA MD
--- NOTE | 2021-12-19 19:59 | EDS_ITS ---
HPI History of Present Illness Chief Complaint: Shortness of Breath Informant: patient and family Onset/Context/Timing Onset: Today Narrative Narrative: Patient presents secondary to increased shortness of breath. Patient has a history of lung cancer with recurrent right lung pleural effusions. She was just discharged from the hospital on the . On the she underwent a thoracentesis and had 1300 cc of fluid removed. She was discharged from the hospital on Cipro 750 twice daily for an additional 3 days. Patient states today she had increased shortness of breath and had a temperature of 100.3. EMS note documents that on arrival her O2 sat was 86% on 4 L. She improved throughout transport. Family did states she took a breathing treatment just before EMS arrived. Family reports they are having increasing difficulty caring for her at home. [facility] Medical History Acute and chronic respiratory failure with hypoxia Acute bronchitis due to Rhinovirus Acute severe exacerbation of asthma Allergic rhinitis Anemia Anxiety Asthma Asthmatic bronchitis Body mass index (BMI) 50-59.9, adult Breast cancer Chronic diarrhea Chronic respiratory failure with hypoxia Dependence on supplemental oxygen Depression Diabetes mellitus, type II Former tobacco use GERD (gastroesophageal reflux disease) History of primary non-small cell carcinoma of right lung History of right breast cancer Hypertension Immunosuppressed due to chemotherapy Migraine headache Migraines Obstructive sleep apnea Osteoarthritis Sleep apnea Vitamin D deficiency Home Medications cholecalciferol (vitamin D3) 1,250 mcg (50,000 unit) capsule 50,000 unit PO SUWE@0800 SUPPLEMENT 06/01/17 [History Last Taken 12/07/21] albuterol sulfate 2.5 mg/3 mL (0.083 %) solution for nebulization 2.5 mg (3 mL) inhalation Q2H PRN PRN Dyspnea, wheezing ##1 11/26/17 [Rx Last Taken 12/07/21] albuterol sulfate 90 mcg/actuation aerosol inhaler (ProAir HFA) 2 puff inhalation Q6H PRN PRN Dyspnea/Wheezing/Sob 03/25/18 [History Last Taken 12/07/21] budesonide 32 mcg/actuation nasal spray (Rhinocort Allergy) 2 puff DAILY ALLERGIES 06/12/18 [History Last Taken 12/07/21] methylphenidate HCl 20 mg tablet,extended release 20 mg PO BID ADHD 03/01/19 [History Last Taken 12/07/21] fluticasone furoate 200 mcg-vilanterol 25 mcg/dose inhalation powder (Breo Ellipta) 2 inh inhalation DAILY sob 12/09/21 [History Last Taken 12/07/21] insulin regular hum U-500 conc 500 unit/mL(3 mL) subcut pen (Humulin R U-500 (Conc) Insulin Kwikpen) 65 unit subcut DINNER diabetes 12/09/21 [History Last Taken Unknown] insulin regular hum U-500 conc 500 unit/mL(3 mL) subcut pen (Humulin R U-500 (Conc) Insulin Kwikpen) 75 unit subcut DAILY diabetes 12/09/21 [History Last Taken 12/08/21 10:00] nadolol 40 mg tablet 40 mg PO DAILY heart 12/09/21 [History Last Taken 12/07/21] paroxetine HCl 40 mg tablet (Paxil) 40 mg PO DAILY mood 12/09/21 [History Last Taken 12/07/21] acetaminophen 325 mg tablet (Tylenol) 650 mg PO Q6H PRN PRN Pain 1-10 Or Fever #0 tabs 12/16/21 [Rx Last Taken Unknown] amiodarone 200 mg tablet 100 mg PO BID 30 days #30 tabs 12/16/21 [Rx Last Taken Unknown] ciprofloxacin HCl 750 mg tablet 750 mg PO BID #6 tabs 12/16/21 [Rx Last Taken Unknown] guaifenesin 1,200 mg tablet, extended release 12 hr (Mucus Relief ER) 1,200 mg PO BID #0 tabs 12/16/21 [Rx Last Taken Unknown] hydralazine 10 mg tablet 10 mg PO TID 30 days #90 tabs 12/16/21 [Rx Last Taken Unknown] apixaban 5 mg tablet 5 mg PO BID #60 tabs 12/17/21 [Rx Last Taken Unknown] Allergy/AdvReac Type Severity Reaction Status Date / Time adhesive tape Allergy tears skin Verified 12/19/21 18:31 cefadroxil [From Duricef] Allergy Unknown Verified 12/19/21 18:31 gluten Allergy celiac Verified 12/19/21 18:31 disease mesalamine [From Asacol] Allergy Unknown Verified 12/19/21 18:31 omalizumab [From Xolair] Allergy Unknown Verified 12/19/21 18:31 Sulfa (Sulfonamide Allergy swelling Verified 12/19/21 18:31 Antibiotics) as an infant oxycodone AdvReac Vomiting Verified 12/19/21 18:31 Family History Father Cancer Myocardial infarction Mother Cancer Metastatic breast CA Surgical History H/O rectocele repair History of lymph node dissection of right axilla History of mastectomy History of partial hysterectomy Hx of bilateral cataract extraction Hx of carpal tunnel repair Social History household members: spouse Smoking Status: Former smoker how long ago did patient quit smoking: Smoked x 2 years 1/2 ppd, quit ~ 50 years prior. alcohol intake: never substance use type: does not use ROS ROS ED Constitutional Constitutional ED: Reports fever(s); Denies chills Eyes Eyes: Denies change in vision or discharge from eye(s) ENT ENT ED: Denies discharge from eye(s), rhinorrhea or sore throat Cardiovascular Cardiovascular: Denies chest pain or palpitations Respiratory/Chest Respiratory/Chest: Reports cough and dyspnea Gastrointestinal Gastrointestinal: Denies abdominal pain, diarrhea, nausea or vomiting Genitourinary Genitourinary ED: Denies difficulty urinating or dysuria Musculoskeletal Musculoskeletal: Denies back pain or extremity pain Integumentary Denies Abrasions or rash Neurologic Neurologic: Denies headache(s) or weakness Allergic/Immunologic Allergic/Immunologic ED: Denies lip swelling or urticaria EXAM Physical Exam Narrative Exam Narrative: Patient lying on her left side which she states allows her to breathe better. Const Vital Signs: 12/19/21 18:26 12/19/21 18:29 12/19/21 18:36 Temperature 98.7 F 98.7 F Temperature Source Temporal Temporal Pulse Rate 81 79 Respiratory Rate 29 H 22 H Respiratory Effort Short of Breath Labored Respiratory Pattern Tachypnea Blood Pressure 142/103 H 142/103 H Blood Pressure Mean 116 116 Pulse Ox 94 99 Oxygen Delivery Method Nasal Cannula Nasal Cannula Nasal Cannula Oxygen Flow Rate (L/min) 4 4 4 12/19/21 22:47 12/19/21 22:48 Temperature 99.3 F H 99.3 F H Temperature Source Oral Oral Pulse Rate 86 86 Respiratory Rate 22 H 22 H Respiratory Effort Respiratory Pattern Blood Pressure 122/72 H 122/72 H Blood Pressure Mean 88 88 Pulse Ox 96 96 Oxygen Delivery Method Nasal Cannula Nasal Cannula Oxygen Flow Rate (L/min) Positive obese Nutritional Appearance: obese HEENT Reports moist mucous membranes Eyes PERRL and EOMs intact bilaterally Neck no lymphadenopathy Chest Wall inspection of chest normal and palpation of chest normal Resp normal respiratory effort and clear to auscultation bilaterally Cardio regular rate and regular rhythm GI non-tender Palpation: soft Extremity normal to inspection Neuro oriented x3 and no sensory deficits noted Neuro Narrative: No focal weakness noted. Skin no rashes or lesions noted MDM MDM MDM Narrative Medical decision making narrative: Lab work and chest x-ray obtained. EKG ordered. Lab Data Attestation: I reviewed the patient's lab results. Labs: Laboratory Results - last 24 hr 12/19/21 12/19/21 12/19/21 21:45 21:45 21:45 WBC 6.9 RBC 3.55 L Hgb 9.8 L Hct 30.4 L MCV 85.6 MCH 27.6 MCHC 32.2 RDW Std Deviation 48.5 H RDW Coeff of Aniceto 15.7 H Plt Count 237 MPV 9.6 Immature Gran % (Auto) 0.400 Neut % (Auto) 76.2 H Lymph % (Auto) 8.2 L Hill % (Auto) 9.3 Eos % (Auto) 5.5 H Baso % (Auto) 0.4 Absolute Neuts (auto) 5.2 Absolute Lymphs (auto) 0.56 L Nucleated RBC % 0 Differential Comment SEE COMMENT Platelet Estimate ADEQUATE Plt Morphology Comment LARGE RBC Morphology NORM C+C Hypochromasia RARE Anisocytosis RARE PT 16.2 H INR 1.3 APTT 35.9 Sodium 135 L Potassium 3.4 L Chloride 96 L Carbon Dioxide 37.0 H Anion Gap 2 L BUN 19 H Creatinine 0.75 Estim Creat Clear Calc 40.21 Est GFR (MDRD) Af Amer 96 Est GFR (MDRD) Non-Af 80 BUN/Creatinine Ratio 25.2 H Glucose 153 H Calcium 9.4 Urine Color Urine Clarity Urine pH Ur Specific [place] Urine Protein Urine Glucose (UA) Urine Ketones Urine Occult Blood Urine Nitrite Urine Bilirubin Urine Urobilinogen Ur Leukocyte Esterase Urine RBC Urine WBC Ur Squamous Epith Cells Calcium Oxalate Crystal Urine Bacteria RBC Casts WBC Casts Urine Mucus 12/19/21 22:40 WBC RBC Hgb Hct MCV MCH MCHC RDW Std Deviation RDW Coeff of Aniceto Plt Count MPV Immature Gran % (Auto) Neut % (Auto) Lymph % (Auto) Hill % (Auto) Eos % (Auto) Baso % (Auto) Absolute Neuts (auto) Absolute Lymphs (auto) Nucleated RBC % Differential Comment Platelet Estimate Plt Morphology Comment RBC Morphology Hypochromasia Anisocytosis PT INR APTT Sodium Potassium Chloride Carbon Dioxide Anion Gap BUN Creatinine Estim Creat Clear Calc Est GFR (MDRD) Af Amer Est GFR (MDRD) Non-Af BUN/Creatinine Ratio Glucose Calcium Urine Color Yellow Urine Clarity Cloudy Urine pH 5.0 Ur Specific [place] 1.025 Urine Protein 30 H Urine Glucose (UA) Normal Urine Ketones 5 H Urine Occult Blood 250 H Urine Nitrite Negative Urine Bilirubin 1 H Urine Urobilinogen 4 H Ur Leukocyte Esterase 25 H Urine RBC > 100 SEEN Urine WBC 5-10 SEEN Ur Squamous Epith Cells 0-5 SEEN Calcium Oxalate Crystal 1+ Urine Bacteria 4+ RBC Casts 5-10 SEEN WBC Casts 0-5 SEEN Urine Mucus 2+ Radiography Chest X-Ray - ED: 1 View, Read by ED Physician, Chronic Changes and Right Effusion Diagnostic Testing: Clinical Impression(s) from Imaging Studies Chest X-Ray 12/19/21 22:15 IMPRESSION: Grossly stable postoperative changes, volume loss and partial opacification of right lung with right pleural effusion. Electronically Signed: Mat Shelton MD at 23:14 EDT , EKG Initial EKG: Attestation: I personally reviewed and interpreted this EKG as follows: Interpretation: Sinus Rhythm (Sinus at 77 with no acute ischemia.) Treatment and Re-Evaluation Narrative: Patient's oxygen saturations been stable on her baseline 4 L here. Despite multiple attempts, nursing staff was not able to establish an IV. Lab was able to draw blood. Lab work is largely unremarkable with chronic changes similar to recent admission. COVID test is negative. Chest x-ray reveals chronic changes with right-sided pleural effusion. Urinalysis was obtained by straight cath. She has 4+ bacteria but 5-10 white cells and no nitrites. I spoke with hospitalist who had reviewed the patient's recent sputum culture. She is concerned that Cipro would not adequately cover the patient's Pseudomonas infection. After speaking with pharmacy they recommended an IM injection of gentamicin for tonight until IV can be established tomorrow with a PICC line. Patient will be admitted to the hospital for further treatment. Discharge Plan Triage Chief Complaint: Shortness of Breath ED Provider: Leanna Pugh Dx/Rx/DC Orders Clinical Impression: Dyspnea, Pleural effusion, right, Lung cancer Prescriptions: No Action cholecalciferol (vitamin D3) 50,000 UNIT capsule 50,000 unit PO SUWE@0800 albuterol sulfate 2.5 MG/3 ML solution for nebulization 2.5 mg INHALATION Q2H PRN PRN (Reason: Dyspnea, wheezing) Qty: 1 0RF albuterol sulfate [ProAir HFA] 1 PUFF inhaler 2 puff inhalation Q6H PRN PRN (Reason: Dyspnea/Wheezing/Sob) budesonide [Rhinocort Allergy] 8.43 ML spray,non-aerosol 2 puff NARES DAILY methylphenidate HCl 20 MG tablet extended release 20 mg PO BID Label Comments: take 1 tablet by mouth twice a day paroxetine HCl [Paxil] 40 mg Tablet 40 mg PO DAILY nadolol 40 mg tablet 40 mg PO DAILY Label Comments: take 1 tablet by mouth once daily fluticasone furoate-vilanterol [Breo Ellipta] 200-25 mcg/dose blister with device 2 inh INHALATION DAILY Label Comments: inhale 1 puff by mouth INTO THE LUNGS once daily (USE GOOD ORAL CARE AFTER USE) Humulin R U-500 (Conc) Kwikpen 500 unit/mL (3 mL) insulin pen 75 unit SUBCUT DAILY Label Comments: INJECT 95 UNITS SUBCUTANEOUSLY DAILY BEFORE BREAKFAST AND 85 UNIT... (REFER TO PRESCRIPTION NOTES). Humulin R U-500 (Conc) Kwikpen 500 unit/mL (3 mL) insulin pen 65 unit SUBCUT DINNER Label Comments: INJECT 95 UNITS SUBCUTANEOUSLY DAILY BEFORE BREAKFAST AND 85 UNIT... (REFER TO PRESCRIPTION NOTES). acetaminophen [Tylenol] 325 mg Tablet 650 mg PO Q6H PRN PRN (Reason: Pain 1-10 Or Fever) Qty: 0 0RF amiodarone 200 mg Tablet 100 mg PO BID 30 Days Qty: 30 0RF hydralazine 10 mg Tablet 10 mg PO TID 30 Days Qty: 90 0RF Mucus Relief ER 1,200 mg Tablet Extended Release 12hr 1,200 mg PO BID Qty: 0 0RF ciprofloxacin HCl 750 mg tablet 750 mg PO BID Qty: 6 0RF apixaban 5 mg tablet 5 mg PO BID Qty: 60 0RF Primary Care Provider: Senait Jay Referrals: Senait Jay MD [Primary Care Provider] - Disposition Disposition: Acute Care Hospital [facility]
[2021-12-19 21:59] LABS: Absolute Lymphocyte Count 0.56 X10^3/uL (0.83-4.51); Absolute Neutrophil Count 5.2 X10^3/uL (2.0-7.7); Basophil# 0.03 X10^3/uL; Basophil% 0.4 % (0-1); Eosinophil# 0.38 X10^3/uL; Eosinophils% 5.5 % (0-5); Hematocrit 30.4 % (37-47); Hemoglobin 9.8 g/dL (12.0-15.0); Lymphocyte # 0.56 X10^3/ul (0.83-4.51); Lymphocyte % 8.2 % (19-41); Mean Corp Hgb Conc 32.2 g/dL (32-36); Mean Corpuscular Hgb 27.6 pg (27.0-32.0); Mean Corpuscular Volume 85.6 fL (81-99); Mean Platelet Vol. 9.6 fl (6.2-12.0); Monocyte# 0.64 X10^3/uL; Monocyte% 9.3 % (0-10); NRBC Flagged by Analyzer 0 % (0-5); Neutrophil # 5.22 X10^3/uL (2.7-7.7); Neutrophil % 76.2 % (47-70); POSITIVE DIFFERENTIAL YES; Platelet Count 237 K/mm3 (150-450); RBC Distribution Width CV 15.7 % (11.6-14.6); RBC Distribution Width SD 48.5 fl (35.1-43.9); Red Blood Count 3.55 M/mm3 (4.2-5.4); White Blood Count 6.9 K/mm3 (4.4-11.0)
--- NOTE | 2021-12-19 22:02 | ED.RN ---
Multiple attempts for peripheral vascular access unsuccessful by 3 nurses with one attempt being with ultrasound. Lab to attempt blood draw, Dr. Pugh aware.
[2021-12-19 22:07] LABS: International Normalized Ratio 1.3; Partial Thromboplast Time 35.9 Seconds (24.1-36.2); Prothrombin Time (Protime)PT. 16.2 SECONDS (11.7-14.9)
[2021-12-19 22:11] LABS: Anion Gap 2 (5-15); BUN 19 mg/dL (7-18); BUN/Creat Ratio 25.2 RATIO (10-20); Calcium,Total 9.4 mg/dL (8.5-10.1); Chloride 96 mmol/L (98-107); Creatinine, Serum 0.75 mg/dL (0.55-1.02); EST Glomerular Filtration Rate 80 mL/min (>60); Est Glom Filt Rate - Afr Amer 96 mL/min (>60); Estimated Creatinine Clearance 40.21 ml/min; Glucose 153 mg/dL (74-106); Potassium 3.4 mmol/L (3.5-5.1); Sodium Level 135 mmol/L (136-145)
--- NOTE | 2021-12-19 22:15 | RAD_ITS ---
INDICATION: Shortness of breath, worsening, history of lung cancer, fluid removed. EXAMINATION/TECHNIQUE: X-RAY - AP view of chest COMPARISON: AP chest x-ray from 12/16/2021. FINDINGS: LINES/DEVICES: Left PICC tip at level of upper cavoatrial junction. LUNGS: Patient slightly rotated to the right. Persistent partial opacification and volume loss of right lung with right pleural effusion. Scarlike opacities also within right lung. No detectable pneumothorax. MEDIASTINUM AND CARDIOVASCULAR STRUCTURES: Heart size within normal limits for imaging technique and positioning. Atherosclerotic calcifications along aorta. BONES AND SOFT TISSUES: Skeletal degenerative changes. Surgical clips right chest wall. RAD/Chest 1 View (Portable) IMPRESSION: Grossly stable postoperative changes, volume loss and partial opacification of right lung with right pleural effusion. Electronically Signed: Mat Shelton MD at 23:14 EDT ,
[2021-12-19 22:26] LABS: Differential Indicated SCAN CRITERIA MET
[2021-12-19 22:29] LABS: Platelet Estimate ADEQUATE (ADEQ); Platelet Morphology LARGE
[2021-12-19 22:30] LABS: Anisocytosis RARE; Hypochromasia RARE; Red Cell Morphology NORM C+C NORMAL (NORM C&C)
[2021-12-19 22:47] VITALS: BP 122/72; PULSE 86; RESP 22; TEMP 37.4; O2SAT 96
[2021-12-19 22:48] VITALS: BP 122/72; PULSE 86; RESP 22; TEMP 37.4; O2SAT 96
[2021-12-19 22:49] LABS: Color, Urine Yellow (Yellow); Glucose, Dipstick Normal (Normal); Ketone-Dipstick 5 mg/dl (Negative); Leukocyte Esterase-Dipstick 25 /ul (Negative); Nitrite-Dipstick Negative (Negative); Occult Blood-Urine 250 /ul (Negative); Protein-Dipstick 30 mg/dl (Negative); Specific Gravity, Urine 1.025 (1.002-1.030); Urine Clarity Cloudy (Clear); Urine Urobilinogen 4 mg/dl (Normal)
[2021-12-19 22:54] LABS: Urine Bilirubin Dipstick 1 mg/dL (Negative)
--- NOTE | 2021-12-19 23:07 | HP.PCM.HOS_ITS ---
HPI - General General Date of Admission: 12/19/21 Date of Service: 12/19/21 Chief Complaint: Fevers, cough, dyspnea, just discharged HPI Narrative The patient is a 76 y/o F w/ PMHx: Chronic anemia, Chronic hypoxic respiratory failure (4L NC), HTN, HLD, Anxiety and Depression/ADD, GERD, Celiac disease, Hx R sided breast CA, Hx NSC R lung CA stage III following w/ Dr. Crouch s/p prior chemo/radiation awaiting immunotherapy, DORY on CPAP q HS, Diabetes mellitus type II, Morbid obesity, Asthma w/ allergic rhinitis, recent admission 12/09/2021- with new onset atrial fibrillation with RVR treated with IV amiodarone transitioned to home nadolol/eliquis, recurrent right pleural effusion and concern for aspiration pneumonia complicated by underlying lung cancer with history of chemotherapy and radiation awaiting immunotherapy initiation with underlying asthmatic history and chronic respiratory failure on 4 L nasal cannula with thoracentesis 12/15/2021 with removal of 1300 mL from the right chest noted to have been treated with 7 days of Zosyn with discharge on ciprofloxacin for 3 additional days per ID recommendation who now represents to the [facility] ED on 12/19/21 per EMS with worsening breathing and family reporting difficulty caring for her at home with EMS reporting despite 4 L nasal cannula patient noted to be 86% in addition to reported temperature at home of 100.3. From review of records from recent admission sputum culture did result with sputum aeruginosa and unfortunately it is resistant to Levaquin and sensitive to ciprofloxacin. Work-up in the ED included T-max in the ED 99.3, heart rate 81, BP 142/103, respiratory rate 22-29, 94 to 99% on 4 L nasal cannula, CBC with WC 6.9, hemoglobin 9.8, platelet 237 with lymphopenia, coags with INR 1.3, PT 16.2, PTT 35.9, BMP with sodium 135, calcium 3.4, chloride 96, carbon oxide 37, BUN/creat 19/0.75, glucose 153, chest x-ray w/ grossly stable postoperative changes, volume loss and partial opacification of right lung with right pleural effusion although notably less than her CXR prior to most recent thoracentesis, blood culture x2 pending per ED, negative rapid COVID antigen. Discussed with ED physician and pharmacy as patient very difficult access on anticoagulant therapy, decision based on cultures to initiate IM gentamicin and requested PICC line to be able to resume zosyn therapy. Pharmacy calculated her appropriate dose as 280 mg IM x 1. PFSH Medical History Acute and chronic respiratory failure with hypoxia Acute bronchitis due to Rhinovirus Acute severe exacerbation of asthma Allergic rhinitis Anemia Anxiety Asthma Asthmatic bronchitis Body mass index (BMI) 50-59.9, adult Breast cancer Chronic diarrhea Chronic respiratory failure with hypoxia Dependence on supplemental oxygen Depression Diabetes mellitus, type II Former tobacco use GERD (gastroesophageal reflux disease) History of primary non-small cell carcinoma of right lung History of right breast cancer Hypertension Immunosuppressed due to chemotherapy Migraine headache Migraines Obstructive sleep apnea Osteoarthritis Sleep apnea Vitamin D deficiency Home Medications cholecalciferol (vitamin D3) 1,250 mcg (50,000 unit) capsule 50,000 unit PO SUWE@0800 SUPPLEMENT 06/01/17 [History Last Taken 12/07/21] albuterol sulfate 2.5 mg/3 mL (0.083 %) solution for nebulization 2.5 mg (3 mL) inhalation Q2H PRN PRN Dyspnea, wheezing ##1 11/26/17 [Rx Last Taken 12/07/21] albuterol sulfate 90 mcg/actuation aerosol inhaler (ProAir HFA) 2 puff inhalation Q6H PRN PRN Dyspnea/Wheezing/Sob 03/25/18 [History Last Taken 12/07/21] budesonide 32 mcg/actuation nasal spray (Rhinocort Allergy) 2 puff DAILY ALLERGIES 06/12/18 [History Last Taken 12/07/21] methylphenidate HCl 20 mg tablet,extended release 20 mg PO BID ADHD 03/01/19 [History Last Taken 12/07/21] fluticasone furoate 200 mcg-vilanterol 25 mcg/dose inhalation powder (Breo El lipta) 2 inh inhalation DAILY sob 12/09/21 [History Last Taken 12/07/21] insulin regular hum U-500 conc 500 unit/mL(3 mL) subcut pen (Humulin R U-500 (Conc) Insulin Kwikpen) 65 unit subcut DINNER diabetes 12/09/21 [History Last Taken Unknown] insulin regular hum U-500 conc 500 unit/mL(3 mL) subcut pen (Humulin R U-500 (Conc) Insulin Kwikpen) 75 unit subcut DAILY diabetes 12/09/21 [History Last Rafael en 12/08/21 10:00] nadolol 40 mg tablet 40 mg PO DAILY heart 12/09/21 [History Last Taken 12/07/21] paroxetine HCl 40 mg tablet (Paxil) 40 mg PO DAILY mood 12/09/21 [History Last Taken 12/07/21] acetaminophen 325 mg tablet (Tylenol) 650 mg PO Q6H PRN PRN Pain 1-10 Or Fever #0 tabs 12/16/21 [Rx Last Taken Unknown] amiodarone 200 mg tablet 100 mg PO BID 30 days #30 tabs 12/16/21 [Rx Last Taken Unknown] ciprofloxacin HCl 750 mg tablet 750 mg PO BID #6 tabs 12/16/21 [Rx Last Taken Unknown] guaifenesin 1,200 mg tablet, extended release 12 hr (Mucus Relief ER) 1,200 mg PO BID #0 tabs 12/16/21 [Rx Last Taken Unknown] hydralazine 10 mg tablet 10 mg PO TID 30 days #90 tabs 12/16/21 [Rx Last Taken Unknown] apixaban 5 mg tablet 5 mg PO BID #60 tabs 12/17/21 [Rx Last Taken Unknown] Allergy/AdvReac Type Severity Reaction Status Date / Time adhesive tape Allergy tears skin Verified 12/19/21 18:31 cefadroxil [From Duricef] Allergy Unknown Verified 12/19/21 18:31 gluten Allergy celiac Verified 12/19/21 18:31 disease mesalamine [From Asacol] Allergy Unknown Verified 12/19/21 18:31 omalizumab [From Xolair] Allergy Unknown Verified 12/19/21 18:31 Sulfa (Sulfonamide Allergy swelling Verified 12/19/21 18:31 Antibiotics) as an oxycodone AdvReac Vomiting Verified 12/19/21 18:31 Family History Father Cancer Myocardial infarction Mother Cancer Metastatic breast CA Surgical History H/O rectocele repair History of lymph node dissection of right axilla History of mastectomy History of partial hysterectomy Hx of bilateral cataract extraction Hx of carpal tunnel repair Social History household members: spouse Smoking Status: Former smoker how long ago did patient quit smoking: Smoked x 2 years 1/2 ppd, quit ~ 50 years prior. alcohol intake: never substance use type: does not use ROS ROS Narrative Admission Review of Systems: CONSTITUTIONAL: No weight loss, chills, + fever, weakness or fatigue. HEENT: Eyes: No visual loss, blurred vision, double vision or yellow sclerae. Ears, Nose, Throat: No hearing loss, sneezing, congestion, runny nose or sore throat. SKIN: No rash or itching, lesions, wounds. CARDIOVASCULAR: No chest pain, chest pressure or chest discomfort, palpitations, edema, orthopnea, syncopal events. RESPIRATORY: + shortness of breath, cough without marked sputum, No marked wheezing, hemoptysis. GASTROINTESTINAL: + anorexia, No nausea, vomiting or diarrhea, abdominal pain, melena, BRBPR. GENITOURINARY: No dysuria, frequency, urgency or retention. NEUROLOGICAL: No headache, dizziness, syncope, paralysis, ataxia, numbness or tingling in the extremities, focal weakness, change in bowel or bladder control, seizure. MUSCULOSKELETAL: + muscle, back pain, joint pain or stiffness. HEMATOLOGIC: + anemia, bleeding or bruising. LYMPHATICS: No enlarged nodes. No history of splenectomy. PSYCHIATRIC: + history of depression or anxiety. ENDOCRINOLOGIC: No reports of sweating, cold or heat intolerance. No polyuria or polydipsia. ALLERGIES: + history of asthma, hives, eczema or rhinitis. Vital Signs Vital Signs Vital Signs: 12/19/21 18:26 12/19/21 18:29 12/19/21 18:36 Temperature 98.7 F 98.7 F Temperature Source Temporal Temporal Pulse Rate 81 79 Respiratory Rate 29 H 22 H Respiratory Effort Short of Breath Labored Respiratory Pattern Tachypnea Blood Pressure 142/103 H 142/103 H Blood Pressure Mean 116 116 Pulse Ox 94 99 Oxygen Delivery Method Nasal Cannula Nasal Cannula Nasal Cannula Oxygen Flow Rate (L/min) 4 4 4 12/19/21 22:47 12/19/21 22:48 Temperature 99.3 F H 99.3 F H Temperature Source Oral Oral Pulse Rate 86 86 Respiratory Rate 22 H 22 H Respiratory Effort Respiratory Pattern Blood Pressure 122/72 H 122/72 H Blood Pressure Mean 88 88 Pulse Ox 96 96 Oxygen Delivery Method Nasal Cannula Nasal Cannula Oxygen Flow Rate (L/min) Weight Weight: 282 lb 13.649 oz Body Mass Index (BMI) 50.1 Physical Exam Narrative Physical Examination: General: Awake, alert, oriented x 3 and cooperative, laying in the ED bed, fatigued, ill appearing, no respiratory distress evident. Skin: Normal color, normal turgor, no icterus, no cyanosis. HEENT: AT/NC, EOMI, PERRLA, dry MM, no carotid bruits or JVD noted; however, thickened neck makes examination difficult. Lungs: Diminished, distant, > bases, R mildly course, decreased effort, harsh coughign with increased effort, no rales, ronchi or wheezing. Heart: Mildly tachycardic with regular rhythm; no gallop, rub audible. Abdomen: Soft, morbidly obese, NTTP, no obvious distention but habitus makes examination difficult, distant normal BS, unable to discern HSM secondary to habitus. Extremities: No cyanosis, clubbing, or edema. Neurological: Patient awake, alert, oriented as noted, cognitive function intact; pupils equally reactive to light and accommodation, cranial nerves II- XII grossly normal, moving all 4 extremities, no focal deficits, strength severely globally decreased secondary to acute presentation. Psychiatric: Affect appears fatigued, ill appearing, no acute evidence of depressive or anxiety feelings. Results Lab / Micro Data Result Diagrams: 12/19/21 21:45 12/19/21 21:45 Labs: Laboratory Results - last 24 hr 12/19/21 21:45: WBC 6.9, RBC 3.55 L, Hgb 9.8 L, Hct 30.4 L, MCV 85.6, MCH 27.6, MCHC 32.2, RDW Std Deviation 48.5 H, RDW Coeff of Aniceto 15.7 H, Plt Count 237, MPV 9.6, Immature Gran % (Auto) 0.400, Neut % (Auto) 76.2 H, Lymph % (Auto) 8.2 L, Rush % (Auto) 9.3, Eos % (Auto) 5.5 H, Baso % (Auto) 0.4, Absolute Neuts (auto) 5.2, Absolute Lymphs (auto) 0.56 L, Nucleated RBC % 0, Differential Comment SEE COMMENT, Platelet Estimate ADEQUATE, Plt Morphology Comment LARGE, RBC Morph ology NORM C+C, Hypochromasia RARE, Anisocytosis RARE 12/19/21 21:45: PT 16.2 H, INR 1.3, APTT 35.9 12/19/21 21:45: Sodium 135 L, Potassium 3.4 L, Chloride 96 L, Carbon Dioxide 37.0 H, Anion Gap 2 L, BUN 19 H, Creatinine 0.75, Estim Creat Clear Calc 40.21, Est GFR (MDRD) Af Amer 96, Est GFR (MDRD) Non-Af 80, BUN/Creatinine Ratio 25.2 H , Glucose 153 H, Calcium 9.4 12/19/21 22:40: Urine Color Yellow, Urine Clarity Cloudy, Urine pH 5.0, Ur Specific [place] 1.025, Urine Protein 30 H, Urine Glucose (UA) Normal, Urine Ketones 5 H, Urine Occult Blood 250 H, Urine Nitrite Negative, Urine Bilirubin 1 H, Urine Urobilinogen 4 H, Ur Leukocyte Esterase 25 H, Urine RBC 0 SEEN, Urine WBC 0 SEEN, Ur Squamous Epith Cells 0 SEEN, Urine Bacteria 0 SEEN, Urine Mucus 0 SEEN Micro: Microbiology 12/19/21 20:20 Nasal Secretion SARS-CoV-2 Antigen (Rapid) - Final Assessment & Plan Assessment/Plan (1) Pseudomonas pneumonia: PLAN: Plan The patient is a 76 y/o F w/ PMHx: Chronic anemia, Chronic hypoxic respiratory failure (4L NC), HTN, HLD, Anxiety and Depression/ADD, GERD, Celiac disease, Hx R sided breast CA, Hx NSC R lung CA stage III following w/ Dr. Crouch s/p prior chemo/radiation awaiting immunotherapy, DORY on CPAP q HS, Diabetes mellitus type II, Morbid obesity, Asthma w/ allergic rhinitis, recent admission 12/09/2021- 12/17/2021 with new onset atrial fibrillation with RVR treated with IV amiodarone transitioned to home nadolol/eliquis, recurrent right pleural effusion and concern for aspiration pneumonia complicated by underlying lung cancer with history of chemotherapy and radiation awaiting immunotherapy initiation with underlying asthmatic history and chronic respiratory failure on 4 L nasal cannula with thoracentesis 12/15/2021 with removal of 1300 mL from the right chest noted to have been treated with 7 days of Zosyn with discharge on ciprofloxacin for 3 additional days per ID recommendation who now represents to the [facility] ED on 12/19/21 per EMS with worsening breathing and family reporting difficulty caring for her at home with EMS reporting despite 4 L nasal cannula patient noted to be 86% in addition to reported temperature at home of 100.3. #1. Recent Recurrent R sided Pleural Effusion and Pseudomonas Pneumonia with Chronic Hypoxic Respiratory Failure (4L NC) with Onset Fevers, Increased dysnea noted to be resistant to discharge antibiotic therapy: Recent presentation with Pseudomonas growth on sputum culture placed on Zosyn at that time with thoracentesis on 12/15/2021 with demonstration of exudate but only 4% polys with unfortunately no culture sent on the fluid with transition from Zosyn to ciprofloxacin with plan 3 additional days at her discharge per ID recommendation. Recent admission with consultation with general surgery for consideration of Pleurx placement given serial repeat needs for thoracenteses complicated by chronic anticoagulation. Unfortunately sputum culture did result with an sensitivity to ciprofloxacin and resistant to Levaquin. We will plan readmission to medical surgical floor, maintain on fall and aspiration precautions, notable difficulty with attempted access placement, discussed with pharmacy and ED physician and will dose with gentamicin IM x 1 with PICC placement requested with then plan to resume Zosyn therapy once PICC placed given sensitivity to this agent on recent sputum culture, will continue budesonide scheduled inhalation regimen with as needed albuterol if needed, will reconsult PT/OT/case management for discharge planning and at this point given family difficulty caring for patient likely would benefit from skilled placeme nt. #2. Hypokalemia: Admission K+ 3.4, magnesium level requested, supplementation given, repeat level in AM. #3. Recent PAF with RVR: We will continue patient home amiodarone, nadolol and apixaban regimen. #4. Chronic anemia, normocytic: Admission Hgb 9.8, baseline 8-9, stable, continue to trend. #5. Diabetes mellitus type II: Will continue home insulin regimen, ADA diet, accu checks w/ ISS. #6. Hypertension: Continue home regimen including nadolol, hydralazine, PRN hydralazine. #7. Hyperlipidemia: Previously on statin therapy, from most recently is no longer taking, defer to outpatient. #8. Chronic Asthma with chronic hypoxic respiratory failure with allergic rhinitis: Will maintain on home oxygen 4 L nasal cannula supplementation, continue home breo, PRN albuterol, HOB, IS parameters. #9. Morbid Obesity: Weight loss and lifestyle changes encouraged, nutrition consulted. #10. Hx Trigeminal neuralgia: Patient previously on carbamazepine regimen, not on most recent admission list. #11. Anxiety and depression/ADHD: We will continue patient home paroxetine and methylphenidate regimen. #12. Celiac disease: Will maintain gluten-free diet. #13. DORY: CPAP q HS. #14. RLS: Continue home pramipexole regimen. #15. DVT prophylaxis: SCDs, continue home eliquis regimen. #16. CODE status: Patient DIPTI is her daughter Jessica Matute and living will is currently in place. Discussed CODE status at length including difference between FULL code, DNR-CCA and DNR-CC status. Following discussions about the differences in these status, requested Full Code status. She did note that if efforts were not successful and it became clear that it would not be effect to allow her to pass naturally at that stage. Advanced Care Planning Face to Face Time: 16 minutes. Charges/Coding Visit Charges Inpatient E&M: 12429 Init Hosp L3 Procedures Hospitalists Procedures: 38302 Advncd Care Plan 30 Min
[2021-12-19 23:16] LABS: Red Blood Cells-Urine > 100 SEEN /hpf (0-5); White Blood Cells 5-10 SEEN /hpf (0-5)
[2021-12-19 23:17] LABS: Bacteria 4+ /hpf (None Seen); Mucous, Urine 2+ /hpf (<or=2+); Squamous Epithelial Cells - UA 0-5 SEEN /hpf (5-10)
[2021-12-19 23:18] LABS: Calcium Oxalate Crystals Ur 1+ /hpf (<or=2+); Red Cell Cast 5-10 SEEN /lpf (None Seen); White Cell Cast 0-5 SEEN /lpf (None Seen)
[2021-12-19 23:48] VITALS: BP 117/54; PULSE 85; RESP 20; TEMP 37.2; O2SAT 100
[2021-12-19] MEDS: Gentamicin 800 MG/20 ML Vial 280 MG IM (23:57)
[2021-12-20] VITALS (14 sets, daily range): BP systolic 102–132; BP diastolic 42–60; PULSE 74–92; RESP 18–24; TEMP 36.7–37; O2SAT 94–100; BMI 49.4
[2021-12-20 00:07] LABS: Magnesium 1.5 mg/dL (1.6-2.6)
[2021-12-20 00:30] LABS: BNP,B-Type NATRIURETIC PEPTIDE 64.2 pg/mL (0-100)
[2021-12-20] MEDS: Potassium Chloride Oral Tablet 20 MEQ 40 MEQ PO (01:34)
[2021-12-20] MEDS: Insulin Lispro 100 UNIT/ML INSULN.PEN SC (06:50)
[2021-12-20] MEDS: Albuterol 2.5 MG/3 ML VIAL.NEB. INHALATION ×2 (06:50→13:56)
--- NOTE | 2021-12-20 06:59 | CPS ---
Had to dump Budesinide because pt says it makes her sick.
[2021-12-20 07:01] LABS: Basophil# 0.03 X10^3/uL; Basophil% 0.5 % (0-1); Eosinophil# 0.43 X10^3/uL; Eosinophils% 7.5 % (0-5); Hematocrit 30.9 % (37-47); Hemoglobin 9.7 g/dL (12.0-15.0); Lymphocyte % 8.8 % (19-41); Mean Corp Hgb Conc 31.4 g/dL (32-36); Mean Corpuscular Hgb 27.4 pg (27.0-32.0); Mean Corpuscular Volume 87.3 fL (81-99); Mean Platelet Vol. 9.4 fl (6.2-12.0); Monocyte% 12.3 % (0-10); NRBC Flagged by Analyzer 0 % (0-5); Neutrophil # 4.03 X10^3/uL (2.7-7.7); Neutrophil % 70.5 % (47-70); POSITIVE DIFFERENTIAL YES; Platelet Count 237 K/mm3 (150-450); RBC Distribution Width CV 15.9 % (11.6-14.6); RBC Distribution Width SD 50.3 fl (35.1-43.9); Red Blood Count 3.54 M/mm3 (4.2-5.4); White Blood Count 5.7 K/mm3 (4.4-11.0)
[2021-12-20 07:04] LABS: Differential Indicated SCAN CRITERIA MET
[2021-12-20 07:10] LABS: Bedside Glucose 155 mg/dL (74-106)
[2021-12-20 07:27] LABS: Differential Comment SCANNED
[2021-12-20 07:36] LABS: ALB/GLOB Ratio 0.5 RATIO (0.9-2.4); AST(SGOT) 22 U/L (15-37); Alanine Aminotransfer ALT/SGPT 17 U/L (13-56); Albumin, Serum 2.1 g/dL (3.2-5.0); Alkaline Phosphatase 125 U/L (45-117); Anion Gap 4 (5-15); BUN 16 mg/dL (7-18); BUN/Creat Ratio 24.4 RATIO (10-20); Calcium,Total 9.3 mg/dL (8.5-10.1); Chloride 98 mmol/L (98-107); Creatinine, Serum 0.66 mg/dL (0.55-1.02); EST Glomerular Filtration Rate 93 mL/min (>60); Est Glom Filt Rate - Afr Amer 113 mL/min (>60); Estimated Creatinine Clearance 38.44 ml/min; Globulin 4.3 g/dL (2.2-4.2); Glucose 173 mg/dL (74-106); Potassium 3.7 mmol/L (3.5-5.1); Protein, Total 6.4 g/dL (6.4-8.2); Sodium Level 138 mmol/L (136-145)
--- NOTE | 2021-12-20 09:01 | EKG12_ITS ---
Test Reason : DYSRHYTHMIA Blood Pressure : / mmHG Vent. Rate : 077 BPM Atrial Rate : 077 BPM P-R Int : 194 ms QRS Dur : 078 ms QT Int : 416 ms P-R-T Axes : 058 025 062 degrees QTc Int : 470 ms Normal sinus rhythm Normal ECG Confirmed by JACLYN RIVERA, KATIE ([id number]), movie editor CAROL VARGAS ([id number]) on 12/31/2021 1:01:45 PM Referred By: RODOLFO Confirmed By:KATIE ANAYA MD
[2021-12-20] MEDS: Amiodarone 200 MG Tablet 100 MG PO ×2 (10:06→21:41)
[2021-12-20] MEDS: guaiFENesin 1,200 MG Tablet 1200 MG PO ×2 (10:06→21:41)
[2021-12-20] MEDS: Nadolol 40 MG Tablet PO (10:06)
[2021-12-20] MEDS: Nystatin Powder 15gm Bottle 1 APPLIC TOPICAL ×2 (10:07→21:42)
[2021-12-20] MEDS: Fluticasone 0.05% 1 SPRAY NASAL.SRY NASAL (10:08)
[2021-12-20] MEDS: Insulin U-500 UNITS/ML PEN 75 UNITS SC (10:10)
[2021-12-20 12:05] LABS: Bedside Glucose 178 mg/dL (74-106)
--- NOTE | 2021-12-20 12:46 | PN.HOSP_ITS ---
Documented by User: Jenna Cabrera NP, PROPOSAL DEVELOPMENT MANAGER-C 12/20/21 14:50 Subjective Subjective 1.? Recurrent right pleural effusion, suspected Pseudomonas pneumonia-recent thoracentesis 12/15/2021. Plan for outpatient Pleurx catheter given recurrent pleural effusion. Will consult on Wednesday for placement during admission. IV Zosyn. Obtain repeat sputum culture. Otherwise may obtain culture following Pleurx catheter placement. 2.? Recent onset paroxysmal atrial fibrillation with RVR-rate now controlled. Continue amiodarone, nadolol. Eliquis temporarily held due to plans for Pleurx catheter. 3. Stage III lung cancer- Follows with Dr. Crouch. Previously completed chemo and radiation. On immunotherapy. 4. Chronic hypoxic respiratory failure secondary to chronic asthma, lung cancer with recurrent pleural effusion-wears 4 L nasal cannula at baseline.? On baseline home O2 requirements. Albuterol aerosol. 5. Type 2 diabetes [id number]-Hrcx-Nclqy with sliding scale insulin. 6. Hypertension-stable, continue current regimen. 7. Anxiety/depression/ADD- on Paxil, methylphenidate. 8. DORY-reports noncompliance with CPAP. 9. Morbid obesity-encouraged diet and lifestyle modifications. 10. Debility-recently discharged 12/17/2021 and refused SNF. Readmitted 12/19/2021. PT/OT. Case management consult for discharge planning. DVT prophylaxis-Tiffany, Patricia gillis This patient was seen by Jenna Cabrera NP-C under the supervision of Dr. Bailey. Objective Data Objective Data Vital Signs: Vital Signs Temp Pulse Resp BP Pulse Ox O2 Del Method O2 Flow Rate 98.2 F 79 22 H 108/46 L 96 Nasal Cannula 4 12/20/21 06:42 12/20/21 06:53 12/20/21 06:53 12/20/21 06:44 12/20/21 06:53 12/20/21 06:53 12/20/21 06:53 Oxygen Flow Rate (L/min) 4 Oxygen Delivery Method Nasal Cannula Weight: 279 lb 1.683 oz Body Mass Index (BMI) 49.4 Intake & Output: Intake and Output for Last 24 Hours 12/18/21 12/19/21 12/20/21 23:59 23:59 23:59 Output Total 400 / 400 Balance -400 / -400 Lab / Micro Data Result Diagrams: 12/20/21 06:50 12/20/21 06:50 Labs: Laboratory Results - last 24 hr 12/19/21 21:43: B-Natriuretic Peptide 64.2 12/19/21 21:45: WBC 6.9, RBC 3.55 L, Hgb 9.8 L, Hct 30.4 L, MCV 85.6, MCH 27.6, MCHC 32.2, RDW Std Deviation 48.5 H, RDW Coeff of Aniceto 15.7 H, Plt Count 237, MPV 9.6, Immature Gran % (Auto) 0.400, Neut % (Auto) 76.2 H, Lymph % (Auto) 8.2 L, [place] % (Auto) 9.3, Eos % (Auto) 5.5 H, Baso % (Auto) 0.4, Absolute Neuts (auto) 5.2, Absolute Lymphs (auto) 0.56 L, Nucleated RBC % 0, Differential Comment SEE COMMENT, Platelet Estimate ADEQUATE, Plt Morphology Comment LARGE, RBC Morphology NORM C+C, Hypochromasia RARE, Anisocytosis RARE 12/19/21 21:45: PT 16.2 H, INR 1.3, APTT 35.9 12/19/21 21:45: Sodium 135 L, Potassium 3.4 L, Chloride 96 L, Carbon Dioxide 37.0 H, Anion Gap 2 L, BUN 19 H, Creatinine 0.75, Estim Creat Clear Calc 40.21, Est GFR (MDRD) Af Amer 96, Est GFR (MDRD) Non-Af 80, BUN/Creatinine Ratio 25.2 H , Glucose 153 H, Calcium 9.4 12/19/21 21:45: Magnesium 1.5 L 12/19/21 22:40: Urine Color Yellow, Urine Clarity Cloudy, Urine pH 5.0, Ur Specific [place] 1.025, Urine Protein 30 H, Urine Glucose (UA) Normal, Urine Ketones 5 H, Urine Occult Blood 250 H, Urine Nitrite Negative, Urine Bilirubin 1 H, Urine Urobilinogen 4 H, Ur Leukocyte Esterase 25 H, Urine RBC > 100 SEEN, Uri ne WBC 5-10 SEEN, Ur Squamous Epith Cells 0-5 SEEN, Calcium Oxalate Crystal 1+, Urine Bacteria 4+, RBC Casts 5-10 SEEN, WBC Casts 0-5 SEEN, Urine Mucus 2+ 12/20/21 06:46: POC Glucose 155 H 12/20/21 06:50: WBC 5.7, RBC 3.54 L, Hgb 9.7 L, Hct 30.9 L, MCV 87.3, MCH 27.4, MCHC 31.4 L, RDW Std Deviation 50.3 H, RDW Coeff of Aniceto 15.9 H, Plt Count 237, MPV 9.4, Immature Gran % (Auto) 0.400, Neut % (Auto) 70.5 H, Lymph % (Auto) 8.8 L, [place] % (Auto) 12.3 H, Eos % (Auto) 7.5 H, Baso % (Auto) 0.5, Absolute Neuts (auto) 4.0, Absolute Lymphs (auto) 0.50 L, Nucleated RBC % 0, Differential Comment SCANNED 12/20/21 06:50: Sodium 138, Potassium 3.7, Chloride 98, Carbon Dioxide 36.0 H, Anion Gap 4 L, BUN 16, Creatinine 0.66, Estim Creat Clear Calc 38.44, Est GFR (MDRD) Af Amer 113, Est GFR (MDRD) Non-Af 93, BUN/Creatinine Ratio 24.4 H, Glucose 173 H, Calcium 9.3, Total Bilirubin 0.40, AST 22, ALT 17, Alkaline Phosphatase 125 H, Total Protein 6.4, Albumin 2.1 L, Globulin 4.3 H, Albumin/ Globulin Ratio 0.5 L 12/20/21 11:37: POC Glucose 178 H Micro: Microbiology 12/19/21 20:20 Nasal Secretion SARS-CoV-2 Antigen (Rapid) - Final Radiography Diagnostic Testing: Radiology Impression Chest X-Ray 12/19/21 22:15 IMPRESSION: Grossly stable postoperative changes, volume loss and partial opacification of right lung with right pleural effusion. Electronically Signed: Mat Shelton MD at 23:14 EDT , Assessment & Plan Assessment/Plan (1) Hypoxia: (2) Recurrent pleural effusion on right: (3) Pseudomonas pneumonia: (4) Lung cancer: (5) Atrial fibrillation with RVR: Documented by User: Dr. Elizabeth Bailey DO 12/20/21 15:13 Subjective Subjective Patient was seen in conjunction with Jenna Cabrera NP. The following is representation my independent history and physical examination. Please see below for addendum the above. Patient states she is not quite sure why she came in she said she started feeling poorly again. There is documentation from the emergency department the family was having difficulty taking care of her. She is adamant that she is not going to residential and states that her daughter gets here on Wednesday from [place] to help take care of her at home. We discussed the plan for antibiotics as well as having Dr. Medina see her here on Wednesday and she was agreeable. Objective Data Lab / Micro Data Result Diagrams: 12/20/21 06:50 12/20/21 06:50 Physical Exam Const alert, oriented x3, no apparent distress and well nourished Constitutional Narrative: Morbidly obese white female lying in bed, appears comfortable, on baseline oxygen with no signs of respiratory distress, nontoxic, appropriately in teractive and pleasant HEENT head/scalp atraumatic and moist oral mucous membranes HEENT Narrative: Mallampati 3-4, no thrush Head and Scalp: normocephalic Resp Resp Narrative: Scattered rhonchi, diminished but clear on the left Auscultation: crackles, rales and rhonchi; Negative for wheezes Cardio regular rate, S1 normal heart sound, S2 normal heart sound, no murmurs, no rub, no gallops, no clicks and no JVD Cardio Narrative: Irregular irregular rhythm but rate is controlled well GI normal to inspection, nondistended, normoactive bowel sounds, soft to palpation, non-tender and non-distended GI Narrative: Large protuberant abdomen with pannus Extremity no clubbing, cyanosis or edema Extremity Narrative: Ecchymosis left upper extremity where we attempted to access her port unsuccessfully, appears to be healing, soft Neuro oriented x3, CN's II-XII intact bilaterally, moves all extremities and no focal motor deficits Sensorium / Orientation: awake, alert, oriented to person, oriented to place and oriented to time Speech: speech normal Assessment & Plan Assessment/Plan (1) Hypoxia: (2) Recurrent pleural effusion on right: (3) Pseudomonas pneumonia: (4) Lung cancer: (5) Atrial fibrillation with RVR: PLAN: Plan Assessment: New onset atrial fibrillation with RVR Pseudomonal pneumonia Recurrent right pleural effusion status post multiple thoracenteses Oral thrush Stage III lung CA Chronic hypoxic respiratory failure DM-2 Hypertension History of asthma Hypertension Depression History of breast cancer GERD History of migraine headaches DORY History of vitamin D deficiency Plan: -Large-volume thoracentesis done 12/15--> 1380 cc -Discussed the case with Dr. Medina at last admission and he discussed the case with Dr. Crouch who does note that the patient is nonsurgical and that Pleurx catheter would be appropriate -Patient was to meet with Dr. Medina on Wednesday as an outpatient however now that here we will check chest x-ray Wednesday and consult Wednesday for placement prior to discharge -Eliquis on hold -Plans with regards to chemotherapy is outpatient oral therapy per discussion with daughter in [place] and patient -Patient is fairly debilitated and is requiring increased level of care since admission with regards to transfers and mobility -Went home and failed--> patient states she intends to go home again after her daughter gets here and she has more help -Still adamantly refusing placement -We will continue Zosyn via midline and consult ID but I suspect she is completed a course -Currently I do not think she clinically has a pneumonia she has no white count currently has no fevers and is on her baseline oxygen--> she was close to completing her IV course prior to discharge and completed with Cipro after discharge -Chest x-ray on admission shows reaccumulating fluid in the right side with increased fluid in the fissure -Family and patient indicated they signed papers with palliative care for ongoing palliative services and outpatient -Patient remains on baseline oxygen -Still in A. fib but rate is controlled Charges/Coding Visit Charges Inpatient E&M: 42390 Subs Hosp L2
[2021-12-20] MEDS: hydrALAZINE 10 MG Tablet PO ×2 (13:54→21:40)
--- NOTE | 2021-12-20 14:16 | NURSING ---
Pt still awaiting midline/picc placement
--- NOTE | 2021-12-20 16:30 | CASEMGMT ---
JASWINDER PLASCENCIA Readmission Note: Prior admission: Admitted 12/09/21 w/PNA and A-fib. Pt w/hx of lung CA w/recurrent rt lung pleural effusions. During hospitalization on 12/15, pt had thoracentesis done, w/1300 ml fluid removal. Pt discharge home on 12/17/21 w/PO atb's and Eliques. Pt discharged w/[facility]: SN, PT/OT, aide, and SW and arrangements made for hospital bed to be delivered. Palliative referral made prior to discharge. Current admission: Admitted 12/19/21 w/pseudomonas PNA. JASWINDER PLASCENCIA to room. Pt states she wishes to discharge back home w/Resumption of [facility]. ROMERO order placed. Pt denies wanting to go to a SNF. She states her daughter, Santa, is flying in from [place] on 12/24 and plans to stay w/her til 01/03. JASWINDER PLASCENCIA inquired if there would be someone who can assist her @ home until Santa arrives. She states her is unable to help her much. She states her DIL may be able to stay w/her until Santa arrives and states she will check w/her about this. Pt reports the hospital bed was delivered to her home. They are still awaiting the mattress topper and states it is scheduled to arrive Wednesday. She is on O2 @ 4 l/m continuously from [facility] and has been bleeding the O2 in through her PAP. She has a pulse ox. She denies need for further DME. She states she has been taking her medication as prescribed. She had an upcoming appt scheduled on Wednesday for a Pleurx catheter to be placed. Per P.N, plans are to have this placed on Wednesday prior to pt being discharged. Pt states she also has a virtual visit scheduled w/Dr Jay on Wednesday. Pt states she thinks her DIL dropped off the papers to sign on w/Palliative care this past week. Pt states she is not sure if her concentrator from [facility] is working properly. She has not contacted [facility] yet to have it checked/serviced. Pt denies having any other discharge planning needs or concerns. Neftaly MEJIA RN, CM
[2021-12-20 17:20] LABS: Bedside Glucose 75 mg/dL (74-106)
--- NOTE | 2021-12-20 17:42 | NURSING ---
pt given 2 glucerna drinks after blood sugar of 75 and tray has not arrived yet
[2021-12-20] MEDS: Acetaminophen 325 MG Tablet 650 MG PO (21:42)
[2021-12-20 22:15] LABS: Bedside Glucose 96 mg/dL (74-106)
[2021-12-21] VITALS (12 sets, daily range): BP systolic 97–121; BP diastolic 47–60; PULSE 66–90; RESP 20–22; TEMP 36.1–37.1; O2SAT 4–98
[2021-12-21] MEDS: hydrALAZINE 10 MG Tablet PO (05:38)
--- NOTE | 2021-12-21 06:10 | RAD_ITS ---
STUDY: X-RAY CHEST REASON FOR EXAM: Female, 76 years old. Recurrent Pleural Effusion TECHNIQUE: AP COMPARISON: 12/19/2021 FINDINGS: Surgical clips of the right axilla. Left arm PICC is stable. Persistent opacity of the medial apical left upper lung field with some opacity along the minor fissure, stable. Stable blunting of the right costophrenic angle. Coarsened interstitial lung markings without discrete air space consolidation. Mild atelectasis in the lung bases. Normal size heart. Normal mediastinum and tanna. Normal visualized pulmonary arteries. Normal visualized aortic arch and descending thoracic aorta. No acute bony process. There is no demonstrated abnormality of the visualized soft tissue structures of the upper abdomen. RAD/Chest 1 View (Portable) IMPRESSION: 1. Stable small right pleural effusion. 2. Stable volume loss of the right upper lobe. Electronically Signed: Owen Crowder MD ([place]) at 10:37 EDT ,
[2021-12-21 06:51] LABS: Bedside Glucose 125 mg/dL (74-106)
[2021-12-21 06:55] LABS: Absolute Lymphocyte Count 0.43 X10^3/uL (0.83-4.51); Absolute Neutrophil Count 4.9 X10^3/uL (2.0-7.7); Basophil# 0.04 X10^3/uL; Basophil% 0.6 % (0-1); Eosinophil# 0.54 X10^3/uL; Hematocrit 32.8 % (37-47); Hemoglobin 10.3 g/dL (12.0-15.0); Lymphocyte # 0.43 X10^3/ul (0.83-4.51); Lymphocyte % 6.4 % (19-41); Mean Corp Hgb Conc 31.4 g/dL (32-36); Mean Corpuscular Hgb 27.5 pg (27.0-32.0); Mean Corpuscular Volume 87.7 fL (81-99); Mean Platelet Vol. 9.8 fl (6.2-12.0); Monocyte# 0.77 X10^3/uL; Monocyte% 11.4 % (0-10); NRBC Flagged by Analyzer 0 % (0-5); Neutrophil # 4.91 X10^3/uL (2.7-7.7); Neutrophil % 72.9 % (47-70); POSITIVE DIFFERENTIAL YES; Platelet Count 266 K/mm3 (150-450); RBC Distribution Width CV 16.1 % (11.6-14.6); RBC Distribution Width SD 51.2 fl (35.1-43.9); Red Blood Count 3.74 M/mm3 (4.2-5.4); White Blood Count 6.7 K/mm3 (4.4-11.0)
[2021-12-21] MEDS: Albuterol 2.5 MG/3 ML VIAL.NEB. INHALATION ×2 (07:05→19:06)
[2021-12-21 07:07] LABS: Differential Indicated SCAN CRITERIA MET
[2021-12-21 07:15] LABS: Anion Gap 3 (5-15); BUN 15 mg/dL (7-18); BUN/Creat Ratio 19.2 RATIO (10-20); Calcium,Total 9.5 mg/dL (8.5-10.1); Chloride 100 mmol/L (98-107); Creatinine, Serum 0.78 mg/dL (0.55-1.02); EST Glomerular Filtration Rate 76 mL/min (>60); Est Glom Filt Rate - Afr Amer 92 mL/min (>60); Estimated Creatinine Clearance 38.44 ml/min; Glucose 135 mg/dL (74-106); Potassium 4.1 mmol/L (3.5-5.1); Sodium Level 138 mmol/L (136-145)
[2021-12-21 07:46] LABS: Magnesium 1.7 mg/dL (1.6-2.6)
[2021-12-21] MEDS: Fluticasone 0.05% 1 SPRAY NASAL.SRY NASAL ×2 (10:50)
[2021-12-21] MEDS: Nystatin Powder 15gm Bottle 1 APPLIC TOPICAL ×2 (10:51→20:28)
--- NOTE | 2021-12-21 12:17 | PN.HOSP_ITS ---
Documented by User: Jenna Cabrera NP, CHEF UNDER-C 12/21/21 12:22 Subjective Subjective Patient seen and examined. Made n.p.o. due to concern for aspiration. Patient states she feels like she can breathe better lying down. States she had feels more short of breath when sitting up. Reports nonproductive cough. Denies fever, chills. Objective Data Objective Data Vital Signs: Vital Signs Temp Pulse Resp BP Pulse Ox O2 Del Method O2 Flow Rate 98.0 F 88 20 H 117/60 4 Nasal Cannula 4 12/21/21 11:19 12/21/21 11:19 12/21/21 11:19 12/21/21 11:19 12/21/21 11:19 12/21/21 11:19 12/21/21 07:05 Oxygen Flow Rate (L/min) 4 Oxygen Delivery Method Nasal Cannula Weight: 278 lb 10.629 oz Body Mass Index (BMI) 49.4 Intake & Output: Intake and Output for Last 24 Hours 12/19/21 12/20/21 12/21/21 23:59 23:59 23:59 Intake Total 752 / 752 656 / 656 Output Total 1350 / 1550 700 / 700 Balance -598 / -798 -44 / -44 Lab / Micro Data Result Diagrams: 12/21/21 06:37 12/21/21 06:37 Labs: Laboratory Results - last 24 hr 12/20/21 16:55: POC Glucose 75 12/20/21 21:37: POC Glucose 96 12/21/21 06:25: POC Glucose 125 H 12/21/21 06:37: WBC 6.7, RBC 3.74 L, Hgb 10.3 L, Hct 32.8 L, MCV 87.7, MCH 27.5, MCHC 31.4 L, RDW Std Deviation 51.2 H, RDW Coeff of Aniceto 16.1 H, Plt Count 266, MPV 9.8, Immature Gran % (Auto) 0.700, Neut % (Auto) 72.9 H, Lymph % (Auto) 6.4 L, [place] % (Auto) 11.4 H, Eos % (Auto) 8.0 H, Baso % (Auto) 0.6, Absolute Neuts (auto) 4.9, Absolute Lymphs (auto) 0.43 L, Nucleated RBC % 0 07/17/22 06:37: Sodium 138, Potassium 4.1, Chloride 100, Carbon Dioxide 35.0 H, Anion Gap 3 L, BUN 15, Creatinine 0.78, Estim Creat Clear Calc 38.44, Est GFR (MDRD) Af Amer 92, Est GFR (MDRD) Non-Af 76, BUN/Creatinine Ratio 19.2, Glucose 135 H, Calcium 9.5 12/21/21 06:37: Magnesium 1.7 Micro: Microbiology 12/19/21 20:20 Nasal Secretion SARS-CoV-2 Antigen (Rapid) - Final Radiography Diagnostic Testing: Radiology Impression Chest X-Ray 12/21/21 06:10 IMPRESSION: 1. Stable small right pleural effusion. 2. Stable volume loss of the right upper lobe. Electronically Signed: Owen Crowder MD ([place]) at 10:37 EDT Reading Location ID and State: [facility] / [place] , Service support , Physical Exam Const alert and oriented x3 Orientation / Consciousness: awake, oriented to person, oriented to place and oriented to time HEENT normocephalic Mouth: dry mucous membranes Eyes PERRL, EOMs intact bilaterally and conjunctivae normal Neck no lymphadenopathy Resp Auscultation: rhonchi and diminished lung sounds Cardio regular rate, regular rhythm and no murmurs Peripheral Pulses: pulses 2+ throughout GI normal to inspection, nondistended, normoactive bowel sounds, non-tender and non-distended Extremity normal to inspection Skin no rashes or lesions noted Lesions: no lesions Rashes: no rashes Trauma: no lacerations or abrasions Neuro CN's II-XII intact bilaterally, no focal motor deficits, no sensory deficits noted and deep tendon reflexes 2+ bilaterally Psych mental status grossly normal and affect normal Assessment & Plan Assessment/Plan (1) Recurrent pleural effusion on right: (2) Pseudomonas pneumonia: PLAN: Plan 1.? Recurrent right pleural effusion, suspected Pseudomonas pneumonia versus aspiration-recent thoracentesis 12/15/2021.? Plan for outpatient Pleurx catheter given recurrent pleural effusion.? Will consult on Wednesday for placement during admission.? IV Zosyn.? Obtain repeat sputum culture.? Otherwise may obtain culture following Pleurx catheter placement. Speech therapy consulted. Made NPO. Further recommendations per speech therapy. 2.? Recent onset paroxysmal atrial fibrillation with RVR-rate now controlled.? Continue amiodarone, nadolol.? Eliquis temporarily held due to plans for Pleurx catheter. 3. Stage III lung cancer- Follows with Dr. Crouch. Previously completed chemo and radiation.? On immunotherapy. 4. Chronic hypoxic respiratory failure secondary to chronic asthma, lung cancer with recurrent pleural effusion-wears 4 L nasal cannula at baseline.? On baseline home O2 requirements.? Albuterol aerosol. 5. Type 2 diabetes [id number]-Vnco-[id number] with sliding scale insulin. 6. Hypertension-stable, continue current regimen. 7. Anxiety/depression/ADD- on Paxil, methylphenidate. 8. DORY-reports noncompliance with CPAP. 9. Morbid obesity-encouraged diet and lifestyle modifications. 10.? Debility-recently discharged 12/17/2021 and refused SNF.? Readmitted 12/19/2021.? PT/OT.? Case management consult for discharge planning. DVT prophylaxis-SCDs, Patricia held This patient was seen by Jenna Cabrera NP-C under the supervision of Dr. Bailey. Documented by User: Dr. Elizabeth Bailey DO 12/21/21 12:56 Subjective Subjective This patient was seen in conjunction with Jenna Cabrera NP. The following represents my independent history and physical examination. Please see below for addendum the above. No significant overnight issues. Patient reports he is now willing to go to a skilled facility and is willing to do so upon discharge. Is amenable to discussing with case management tomorrow. She states the only person she is really talked to about this is her daughter Santa. Objective Data Lab / Micro Data Result Diagrams: 12/21/21 06:37 12/21/21 06:37 Physical Exam Const alert, oriented x3 and no apparent distress Constitutional Narrative: Morbidly obese older white female lying in bed in left side-lying, appears comfortable nontoxic HEENT head/scalp atraumatic and moist oral mucous membranes HEENT Narrative: Mallampati 3-4, no thrush Head and Scalp: normocephalic Resp normal respiratory effort, no retractions and no use of accessory muscles Resp Narrative: Diffusely diminished but no adventitious sounds noted today, remains on 4 L nasal cannula Cardio regular rate, S1 normal heart sound, S2 normal heart sound, no murmurs, no rub, no gallops and no clicks Cardio Narrative: Irregular rhythm with regular rate GI normal to inspection, nondistended, normoactive bowel sounds, soft to palpation, non-tender and non-distended GI Narrative: Large abdomen with pannus Extremity no clubbing, cyanosis or edema Skin Skin Narrative: Midline left upper extremity with large ecchymotic area from previous med port access attempt-appears to be healing Neuro oriented x3, moves all extremities and no focal motor deficits Assessment & Plan Assessment/Plan (1) Recurrent pleural effusion on right: (2) Pseudomonas pneumonia: PLAN: Plan Assessment: New onset atrial fibrillation with RVR Pseudomonal pneumonia Recurrent right pleural effusion status post multiple thoracenteses Oral thrush Stage III lung CA Chronic hypoxic respiratory failure DM-2 Hypertension History of asthma Hypertension Depression History of breast cancer GERD History of migraine headaches DORY History of vitamin D deficiency Plan: -Large-volume thoracentesis done 12/15--> 1380 cc -Discussed the case with Dr. Medina at last admission and he discussed the case with Dr. Crouch who does note that the patient is nonsurgical and that Pleurx catheter would be appropriate -Patient was to meet with Dr. Medina on Wednesday as an outpatient however now that here we will check chest x-ray Wednesday morning and consult Wednesday for placement prior to discharge -Eliquis on hold -Plans with regards to chemotherapy is outpatient oral therapy per discussion with daughter in [place] and patient -Patient is fairly debilitated and is requiring increased level of care since admission with regards to transfers and mobility -Now agreeable to skilled facility placement and we will have case management see the patient tomorrow -Speech therapy with concerns of aspiration and patient made n.p.o.--> will allow for p.o. meds -Suspect this is why she has ongoing issues with pneumonia -Check modified barium swallow -Continue Zosyn-ID consult tomorrow -Chest x-ray on admission shows reaccumulating fluid in the right side with increased fluid in the fissure -Family and patient indicated they signed papers with palliative care for ongoing palliative services and outpatient -Patient would most likely be hospice appropriate if she chose to choose this direction of care however at this time she still wishes to pursue more aggressive treatment -Patient remains on baseline oxygen -Still in A. fib but rate is controlled Charges/Coding Visit Charges Inpatient E&M: 57753 Subs Hosp L2
[2021-12-21 12:45] LABS: Bedside Glucose 149 mg/dL (74-106)
[2021-12-21 18:06] LABS: Bedside Glucose 139 mg/dL (74-106)
[2021-12-21] MEDS: 0.9% Saline Lock 10 ML Syringe IV (20:28)
[2021-12-21 22:56] LABS: Bedside Glucose 143 mg/dL (74-106)
[2021-12-22] VITALS (10 sets, daily range): BP systolic 104–145; BP diastolic 55–64; PULSE 76–93; RESP 18–22; TEMP 36.8–37.5; O2SAT 93–96
[2021-12-22 06:25] LABS: Absolute Lymphocyte Count 0.49 X10^3/uL (0.83-4.51); Absolute Neutrophil Count 4.2 X10^3/uL (2.0-7.7); Basophil# 0.05 X10^3/uL; Basophil% 0.8 % (0-1); Eosinophil# 0.52 X10^3/uL; Eosinophils% 8.8 % (0-5); Hematocrit 33.6 % (37-47); Hemoglobin 10.5 g/dL (12.0-15.0); Lymphocyte # 0.49 X10^3/ul (0.83-4.51); Lymphocyte % 8.2 % (19-41); Mean Corp Hgb Conc 31.3 g/dL (32-36); Mean Corpuscular Hgb 27.7 pg (27.0-32.0); Mean Corpuscular Volume 88.7 fL (81-99); Mean Platelet Vol. 9.3 fl (6.2-12.0); Monocyte# 0.68 X10^3/uL; Monocyte% 11.4 % (0-10); NRBC Flagged by Analyzer 0 % (0-5); Neutrophil # 4.17 X10^3/uL (2.7-7.7); Neutrophil % 70.3 % (47-70); POSITIVE DIFFERENTIAL YES; Platelet Count 263 K/mm3 (150-450); RBC Distribution Width CV 16.1 % (11.6-14.6); RBC Distribution Width SD 52.2 fl (35.1-43.9); Red Blood Count 3.79 M/mm3 (4.2-5.4); White Blood Count 5.9 K/mm3 (4.4-11.0)
[2021-12-22 06:31] LABS: Differential Indicated SCAN CRITERIA MET
[2021-12-22 06:41] LABS: International Normalized Ratio 1.1; Prothrombin Time (Protime)PT. 14.1 SECONDS (11.7-14.9)
[2021-12-22 06:50] LABS: Bedside Glucose 127 mg/dL (74-106)
[2021-12-22 06:53] LABS: Anion Gap 4 (5-15); BUN 11 mg/dL (7-18); BUN/Creat Ratio 16.5 RATIO (10-20); Calcium,Total 9.8 mg/dL (8.5-10.1); Chloride 101 mmol/L (98-107); Creatinine, Serum 0.67 mg/dL (0.55-1.02); EST Glomerular Filtration Rate 91 mL/min (>60); Est Glom Filt Rate - Afr Amer 111 mL/min (>60); Estimated Creatinine Clearance 38.44 ml/min; Glucose 137 mg/dL (74-106); Potassium 4.1 mmol/L (3.5-5.1); Sodium Level 138 mmol/L (136-145)
[2021-12-22 07:04] LABS: Anisocytosis 1+
--- NOTE | 2021-12-22 10:15 | ST.MBS ---
Modified Barium Swallow - Patient Information Study Date: 12/22/21 Study Time: 09:30 Diagnosis: Pneumonia (J18.9) Referring Physician: Jamee Abreu Reason for Referral: Objectively assess swallow function, risk for aspiration, and determine recommendations for least restrictive diet textures and compensatory strategies to improve safety of swallow. Current Diet Ordered: NPO Dentition: Missing Teeth - 3 teeth missing Mental Status: WNL Respiratory Status: Oxygenating on 4L/M nasal cannula - Penetration-Aspiration Scale Penetration-Aspiration Scale: OBJECTIVE ASSESSMENT OF SWALLOW FUNCTION (QUANTITATIVE ? PER TRIAL): PENETRATION / ASPIRATION SCALE (GRIFFIN): 1 = does not enter airway 2 = enters airway/above vocal folds/ejected 3 = enters airway/above vocal folds/not ejected 4 = enters airway/contacts vocal folds/ejected 5 = enters airway/contacts vocal folds/not ejected 6 = enters airway/below vocal folds/ejected 7 = enters airway/below vocal folds/not ejected despite effort 8 = enters airway/below vocal folds/no effort VIDEOFLOROSCOPIC SCALE SCORE (GRIFFIN): Grade I = aspiration of material that has penetrated into the laryngeal vestibule, intact cough reflex Grade II = aspiration < 10 % of the bolus, intact cough reflex Grade III = aspiration of < 10 % of the bolus, reduced cough reflex or aspiration of > 10 % of the bolus, intact cough reflex Grade IV = aspiration of > 10 % of the bolus, reduced cough reflex
[2021-12-22] MEDS: Nadolol 40 MG Tablet PO (10:36)
[2021-12-22] MEDS: Nystatin Powder 15gm Bottle 1 APPLIC TOPICAL ×2 (10:36→22:37)
[2021-12-22] MEDS: Amiodarone 200 MG Tablet 100 MG PO ×2 (10:36→22:28)
[2021-12-22] MEDS: guaiFENesin 1,200 MG Tablet 1200 MG PO ×2 (10:36→22:28)
--- NOTE | 2021-12-22 10:54 | CASEMGMT ---
RN CM in to pt room, pt sitting in chair eating breakfast. Discussed dc planning. Pt was provided a list of SNF providers including quality and resource use data and consistent with the patient?s preferred geographic region, medical needs, and insurance network for [facility]. Pt denied need for this. Pt asks if [facility] is in her network. She states she would like to go to [facility] pending two items. She would like to know how many covid patients they have as well as if she can swim in their pool. She states she would like this also discussed with her dtr Santa when the answers are obtained as she if flying in from [place] tomorrow. Updated SW of this. Pt denies any further needs.
--- NOTE | 2021-12-22 11:39 | PN.HOSP_ITS ---
Documented by User: Jenna Cabrera NP, VETERINARY TECHNICIAN INSTRUCTOR-C 12/22/21 11:55 Subjective Subjective Patient seen and examined. Resting comfortably in chair. Denies worsening shortness of breath. Denies fever, chills. To undergo modified barium swallow and Pleurx catheter placement. States she is amendable to SNF at discharge for rehab. Objective Data Objective Data Vital Signs: Vital Signs Temp Pulse Resp BP Pulse Ox O2 Del Method O2 Flow Rate 98.9 F 84 18 145/64 H 94 Nasal Cannula 4 12/22/21 08:17 12/22/21 08:17 12/22/21 08:17 12/22/21 08:17 12/22/21 08:17 12/22/21 08:17 12/22/21 08:17 Oxygen Flow Rate (L/min) 4 Oxygen Delivery Method Nasal Cannula Weight: 277 lb 12.519 oz Body Mass Index (BMI) 49.4 Intake & Output: Intake and Output for Last 24 Hours 12/20/21 12/21/21 12/22/21 23:59 23:59 23:59 Intake Total 752 / 752 1056 / 1056 100 / 100 Output Total 1350 / 1550 1200 / 1350 425 / 425 Balance -598 / -798 -144 / -294 -325 / -325 Lab / Micro Data Result Diagrams: 12/22/21 06:12 12/22/21 06:12 Labs: Laboratory Results - last 24 hr 12/21/21 12:26: POC Glucose 149 H 12/21/21 17:43: POC Glucose 139 H 12/21/21 22:33: POC Glucose 143 H 12/22/21 06:03: POC Glucose 127 H 12/22/21 06:12: WBC 5.9, RBC 3.79 L, Hgb 10.5 L, Hct 33.6 L, MCV 88.7, MCH 27.7, MCHC 31.3 L, RDW Std Deviation 52.2 H, RDW Coeff of Aniceto 16.1 H, Plt Count 263, MPV 9.3, Immature Gran % (Auto) 0.500, Neut % (Auto) 70.3 H, Lymph % (Auto) 8.2 L, [place] % (Auto) 11.4 H, Eos % (Auto) 8.8 H, Baso % (Auto) 0.8, Absolute Neuts (auto) 4.2, Absolute Lymphs (auto) 0.49 L, Nucleated RBC % 0, Anisocytosis 1+ 12/22/21 06:12: PT 14.1, INR 1.1 12/22/21 06:12: Sodium 138, Potassium 4.1, Chloride 101, Carbon Dioxide 33.0 H, Anion Gap 4 L, BUN 11, Creatinine 0.67, Estim Creat Clear Calc 38.44, Est GFR (MDRD) Af Amer 111, Est GFR (MDRD) Non-Af 91, BUN/Creatinine Ratio 16.5, Glucose 137 H, Calcium 9.8 Micro: Microbiology 12/19/21 21:45 Blood Culture (Wb) - Right Hand Blood Culture - Preliminary No growth in 48 hours. 12/19/21 09:40 Blood Culture (Wb) - Left Hand Blood Culture - Preliminary No growth in 48 hours. 12/19/21 20:20 Nasal Secretion SARS-CoV-2 Antigen (Rapid) - Final Physical Exam Const alert and oriented x3 Orientation / Consciousness: awake, oriented to person, oriented to place and oriented to time Nutritional Appearance: obese HEENT normocephalic Mouth: dry mucous membranes Eyes PERRL, EOMs intact bilaterally and conjunctivae normal Neck no lymphadenopathy Resp clear to auscultation bilaterally Auscultation: diminished lung sounds Cardio regular rate and no murmurs Cardio Narrative: A. fib, rate controlled Peripheral Pulses: pulses 2+ throughout GI normal to inspection, nondistended, normoactive bowel sounds, non-tender and non -distended Extremity normal to inspection Skin no rashes or lesions noted Lesions: no lesions Rashes: no rashes Trauma: no lacerations or abrasions Neuro CN's II-XII intact bilaterally, no focal motor deficits, no sensory deficits noted and deep tendon reflexes 2+ bilaterally Psych mental status grossly normal and affect normal Assessment & Plan Assessment/Plan (1) Recurrent pleural effusion on right: PLAN: Plan 1.? Recurrent right pleural effusion, suspected Pseudomonas pneumonia versus aspiration-recent thoracentesis 12/15/2021.? Plan for Pleurx catheter given recurrent pleural effusion.? General surgery consulted.? IV Zosyn.?Speech therapy consulted.? Underwent modified barium swallow this morning. Continue dietary modifications per speech therapy recommendations. ID consulted to assist with antibiotic recommendations. 2.? Recent onset paroxysmal atrial fibrillation with RVR-rate now controlled.? Continue amiodarone, nadolol.? Eliquis temporarily held due to plans for Pleurx catheter. 3. Stage III lung cancer- Follows with Dr. Crouch. Previously completed chemo and radiation.? On immunotherapy. 4. Chronic hypoxic respiratory failure secondary to chronic asthma, lung cancer with recurrent pleural effusion-wears 4 L nasal cannula at baseline.? On baseline home O2 requirements.? Albuterol aerosol. 5. Type 2 diabetes [id number] with sliding scale insulin. 6. Hypertension-stable, continue current regimen. 7. Anxiety/depression/ADD- on Paxil, methylphenidate. 8. DORY-reports noncompliance with CPAP. 9. Morbid obesity-encouraged diet and lifestyle modifications. 10.? Debility-recently discharged 12/17/2021 and refused SNF.? Readmitted 12/19/2021.? PT/OT.? Case management consult for discharge planning. Patient now amendable to SNF. DVT prophylaxis-SCDs, Eliquis held This patient was seen by [facility] under the supervision of Dr. Abreu. Time spent examining patient, reviewing data and subsequent management of care: 15 minutes Documented by User: Dr. Jamee Abreu MD 12/22/21 15:05 Objective Data Lab / Micro Data Result Diagrams: 12/22/21 06:12 12/22/21 06:12 Assessment & Plan Assessment/Plan (1) Recurrent pleural effusion on right: Charges/Coding Addendum Addendum: This patient was seen in conjunction with Jenna Cabrera NP. I have independently interviewed and examined the patient and reviewed pertinent historical, laboratory, and other data. I have reviewed her note and concur with her documentation Patient was seen and examined. She went for modified barium swallow today. She is on 4 L of oxygen. Awaiting possible Pleurx catheter placement Physical Exam: Gen: Comfortable, not pale, not jaundiced CVS:HS I +II, regular, no murmurs RESP: Diminished at lung bases GI: BS present and normal, soft, nontender, no palpable organs EXT:No edema ASSESSMENT: 1. Recurrent right pleural effusion 2. Mild oropharyngeal dysphagia 3. Paroxysmal atrial fibrillation 4. Stage IIIc 5. Chronic hypoxic respiratory failure 6. Type II DM 7. Hypertension 8. Anxiety/depression 9. DORY 10. Morbid obesity Plan: Continue IV Zosyn, ID consult Encourage use of incentive spirometer Follow-up on speech therapy recommendations Time spent coordinating all aspects of patient's care, discussing with nursin minutes Visit Charges Inpatient E&M: 19281 Subs Hosp L2
[2021-12-22] MEDS: Insulin Lispro 100 UNIT/ML INSULN.PEN SC ×2 (11:42→18:19)
[2021-12-22 12:00] LABS: Bedside Glucose 292 mg/dL (74-106)
--- NOTE | 2021-12-22 12:01 | CON.PCM.SX_ITS ---
Assessment & Plan Assessment/Plan (1) Recurrent pleural effusion on right: PLAN: This is a 76-year-old female known to me from her prior admission for a recurrent pleural effusion that was managed with thoracentesis on 12/15/2021. The cytologic evaluation of that fluid has been completed and pathology, again, did not find malignant cells. When lights criteria was applied to the LDH and protein content of the fluid and serum, respectively, the ratios (0.69 and 0.57) are consistent with an exudative process. I have been asked to evaluate her for consideration of a Pleurx catheter placement which is reasonable given the number of recurrent thoracenteses she has required. However, I have explained to patient and family that we need to wait until the fluid has reaccumulated to proceed with the procedure. Now 1 week following her last thoracentesis, patient's x-rays remained stable. I would like to obtain a repeat two-view c hest x-ray tomorrow to assess for any accumulations posteriorly that may not be immediately visible in the AP projection. Patient's Eliquis is currently held in anticipation of a possible procedure. I will follow-up this imaging and see if this gives any better guidance to timing for the procedure. Ideally we would be able to complete this procedure during the patient's hospitalization, but I a m unable to prognosticate how quickly her pleural effusion will reaccumulate. HPI Consult Data Date of Consult: 12/22/21 HPI Narrative Reason for Consultation: Consideration of Pleurx catheter placement HPI Narrative: ALESSANDRO GUARDADO, is a 76 F who is admitted to [facility] after she and her family found it difficult to meet her care needs at home. She is known to me from her prior admission last week related to progressive shortness of breath and a recurrent pleural effusion. She was due to follow-up with me in the outpatient clinic today, however, been consulted due to her readmission. She confirms for me that her shortness of breath remains at her baseline. Serial chest x-rays have been obtained during this admission and appear stable from her post-thoracentesis pictures 12/15/2021. I note that she is also being evaluated for possible aspiration events while eating. During our visit patient is sitting out of bed in a chair eating and denies any further questions related to our procedure. Her daughter from [place] was telephoned and we simply reviewed the current status of her effusion. [facility] Medical History (Updated 12/20/21 @ 01:09 by Odette Denney) Acute and chronic respiratory failure with hypoxia Acute bronchitis due to Rhinovirus Acute severe exacerbation of asthma Allergic rhinitis Anemia Anxiety Asthma Asthmatic bronchitis Atrial fibrillation BiPAP (biphasic positive airway pressure) dependence Body mass index (BMI) 50-59.9, adult Breast cancer Chronic diarrhea Chronic respiratory failure with hypoxia Dependence on supplemental oxygen Depression Diabetes Diabetes mellitus, type II Former smoker Former tobacco use GERD (gastroesophageal reflux disease) History of primary non-small cell carcinoma of right lung History of right breast cancer Hypertension Immunosuppressed due to chemotherapy Migraine headache Migraines Obstructive sleep apnea On home oxygen therapy Osteoarthritis Sleep apnea Vitamin D deficiency Home Medications cholecalciferol (vitamin D3) 1,250 mcg (50,000 unit) capsule 50,000 unit PO SUWE@0800 SUPPLEMENT 06/01/17 [History Last Taken 12/07/21] albuterol sulfate 2.5 mg/3 mL (0.083 %) solution for nebulization 2.5 mg (3 mL) inhalation Q2H PRN PRN Dyspnea, wheezing ##1 11/26/17 [Rx Last Taken 12/07/21] albuterol sulfate 90 mcg/actuation aerosol inhaler (ProAir HFA) 2 puff inhalation Q6H PRN PRN Dyspnea/Wheezing/Sob 03/25/18 [History Last Taken 12/07/21] budesonide 32 mcg/actuation nasal spray (Rhinocort Allergy) 2 puff DAILY ALLERGIES 06/12/18 [History Last Taken 12/07/21] methylphenidate HCl 20 mg tablet,extended release 20 mg PO BID ADHD 03/01/19 [History Last Taken 12/07/21] fluticasone furoate 200 mcg-vilanterol 25 mcg/dose inhalation powder (Breo Ellipta) 2 inh inhalation DAILY sob 12/09/21 [History Last Taken 12/07/21] insulin regular hum U-500 conc 500 unit/mL(3 mL) subcut pen (Humulin R U-500 (Conc) Insulin Kwikpen) 65 unit subcut DINNER diabetes 12/09/21 [History Last Taken Unknown] insulin regular hum U-500 conc 500 unit/mL(3 mL) subcut pen (Humulin R U-500 (Conc) Insulin Kwikpen) 75 unit subcut DAILY diabetes 12/09/21 [History Last Taken 12/08/21 10:00] nadolol 40 mg tablet 40 mg PO DAILY heart 12/09/21 [History Last Taken 12/07/21] paroxetine HCl 40 mg tablet (Paxil) 40 mg PO DAILY mood 12/09/21 [History Last Taken 12/07/21] acetaminophen 325 mg tablet (Tylenol) 650 mg PO Q6H PRN PRN Pain 1-10 Or Fever #0 tabs 12/16/21 [Rx Last Taken Unknown] amiodarone 200 mg tablet 100 mg PO BID 30 days #30 tabs 12/16/21 [Rx Last Taken Unknown] guaifenesin 1,200 mg tablet, extended release 12 hr (Mucus Relief ER) 1,200 mg PO BID #0 tabs 12/16/21 [Rx Last Taken Unknown] hydralazine 10 mg tablet 10 mg PO TID 30 days #90 tabs 12/16/21 [Rx Last Taken Unknown] apixaban 5 mg tablet 5 mg PO BID #60 tabs 12/17/21 [Rx Last Taken Unknown] Allergy/AdvReac Type Severity Reaction Status Date / Time adhesive tape Allergy tears skin Verified 12/19/21 18:31 cefadroxil [From Duricef] Allergy Unknown Verified 12/19/21 18:31 gluten Allergy celiac Verified 12/19/21 18:31 disease mesalamine [From Asacol] Allergy Unknown Verified 12/19/21 18:31 omalizumab [From Xolair] Allergy Unknown Verified 12/19/21 18:31 Sulfa (Sulfonamide Allergy swelling Verified 12/19/21 18:31 Antibiotics) as an infant oxycodone AdvReac Vomiting Verified 12/19/21 18:31 Family History Father Cancer Myocardial infarction Mother Cancer Metastatic breast CA Surgical History H/O rectocele repair History of lymph node dissection of right axilla History of mastectomy History of partial hysterectomy Hx of bilateral cataract extraction Hx of carpal tunnel repair Social History household members: spouse Smoking Status: Former smoker how long ago did patient quit smoking: Smoked x 2 years 1/2 ppd, quit ~ 50 years prior. alcohol intake: never substance use type: does not use Physical Exam Const alert and no apparent distress General Appearance: cooperative and comfortable Resp normal respiratory effort Effort and Inspection: able to speak in complete sentences Lab / Micro Data Result Diagrams: 12/22/21 06:12 12/22/21 06:12 Labs: Laboratory Results - last 24 hr 12/21/21 12:26: POC Glucose 149 H 12/21/21 17:43: POC Glucose 139 H 12/21/21 22:33: POC Glucose 143 H 12/22/21 06:03: POC Glucose 127 H 12/22/21 06:12: WBC 5.9, RBC 3.79 L, Hgb 10.5 L, Hct 33.6 L, MCV 88.7, MCH 27.7, MCHC 31.3 L, RDW Std Deviation 52.2 H, RDW Coeff of Aniceto 16.1 H, Plt Count 263, MPV 9.3, Immature Gran % (Auto) 0.500, Neut % (Auto) 70.3 H, Lymph % (Auto) 8.2 L, [place] % (Auto) 11.4 H, Eos % (Auto) 8.8 H, Baso % (Auto) 0.8, Absolute Neuts (auto) 4.2, Absolute Lymphs (auto) 0.49 L, Nucleated RBC % 0, Anisocytosis 1+ 12/22/21 06:12: PT 14.1, INR 1.1 12/22/21 06:12: Sodium 138, Potassium 4.1, Chloride 101, Carbon Dioxide 33.0 H, Anion Gap 4 L, BUN 11, Creatinine 0.67, Estim Creat Clear Calc 38.44, Est GFR (MDRD) Af Amer 111, Est GFR (MDRD) Non-Af 91, BUN/Creatinine Ratio 16.5, Glucose 137 H, Calcium 9.8 12/22/21 11:40: POC Glucose 292 H Micro: Microbiology 12/19/21 21:45 Blood Culture (Wb) - Right Hand Blood Culture - Preliminary No growth in 48 hours. 12/19/21 09:40 Blood Culture (Wb) - Left Hand Blood Culture - Preliminary No growth in 48 hours.
--- NOTE | 2021-12-22 12:06 | SP.MBSS_ITS ---
Modified Barium Swallow - Patient Information Study Date: 12/22/21 Study Time: 09:30 Direct Billable Minutes: 95 Total Minutes procedure & reportin Diagnosis: Pneumonia (J18.9) Referring Physician: Jamee Abreu Reason for Referral: Objectively assess swallow function, risk for aspiration, and determine recommendations for least restrictive diet textures and compensatory strategies to improve safety of swallow. Medical History: The patient is a 76-year-old female with PMH including chronic hypoxic respiratory failure, GERD, hx R sided breast cancer, hx R NSC lung cancer stage III s/p chemoradiation therapy (awaiting immunotherapy), DM Type II, GERD (SEE EMR for full PMH). The patient had a recent hospitalization with recurrent R ple ural effusion and concern for aspiration PNA with thoracentesis completed 12/15/2021. She was treated with two antibiotics and discharged home on 12/17/2021. On 12/19/2021 she re-presented to [facility] ED with shortness of breath and family reporting difficulty caring for her at home. She was admitted for management of recurrent pleural effusion on the R side and PNA. She was made NPO by speech therapy at bedside due to concerns for aspiration. She was recommended for a MBS study to objectively assess swallow function. Previous MBS study was completed on 06/26/2021 revealing mild oropharyngeal phase dysphagia and recommending Regular Textures - Bite Size Meats with Extra Sauce, Thin Liquids. She did demonstrate significant retrograde flow of contrast in the esophagus. She has history of GERD, which was controlled with medication at the time. She has since been taken off of her GERD medication, as it interacted with her arrhythmia medication per patient report. Current Diet Ordered: NPO Dentition: Missing Teeth - missing 3 teeth Mental Status: WNL Respiratory Status: Oxygenating on 4L/M nasal cannula - Penetration-Aspiration Scale Penetration-Aspiration Scale: OBJECTIVE ASSESSMENT OF SWALLOW FUNCTION (QUANTITATIVE ? PER TRIAL): PENETRATION / ASPIRATION SCALE (GRIFFIN): 1 = does not enter airway 2 = enters airway/above vocal folds/ejected 3 = enters airway/above vocal folds/not ejected 4 = enters airway/contacts vocal folds/ejected 5 = enters airway/contacts vocal folds/not ejected 6 = enters airway/below vocal folds/ejected 7 = enters airway/below vocal folds/not ejected despite effort 8 = enters airway/below vocal folds/no effort VIDEOFLOROSCOPIC SCALE SCORE (GRIFFIN): Grade I = aspiration of material that has penetrated into the laryngeal vestibule, intact cough reflex Grade II = aspiration < 10 % of the bolus, intact cough reflex Grade III = aspiration of < 10 % of the bolus, reduced cough reflex or aspiration of > 10 % of the bolus, intact cough reflex Grade IV = aspiration of > 10 % of the bolus, reduced cough reflex - Penetration-Aspiration Scale Score Thin Liquid via teaspoon Result: 1= does not enter airway Thin Liquid via teaspoon Trial 2 Result: 2= enter airway/above vocal folds/ejected Thin Liquid via small single sip from cup Result: 1= does not enter airway Thin Liquid via sequential sips from cup Result: 1= does not enter airway Wade Thick Liquid via small single sip from cup Result: 1= does not enter airway Honey Thick Liquid via small single sip from cup Result: 1= does not enter airway Pudding via teaspoon Result: 1= does not enter airway 1/2 Cookie Result: 1= does not enter airway Thin Liquid via single sip from straw Result: 1= does not enter airway Thin Liquid via sequential sips from straw Result: 1= does not enter airway - Oral Phase Labial Seal: No Labial Escape Tongue Control During Bolus Hold: Posterior escape of greater than half of bolus Bolus Preparation/Mastication: Slow prolonged chewing/mashing with complete recollection Bolus Transport/Lingual Motion: Slowed tongue motion Oral Residue: Residue collection on oral structures - Pharyngeal Phase Initiation of Pharyngeal Swallow: Bolus head in pyriforms Soft Palate Elevation: Trace column of contrast/air between soft palate and pharyngeal wall Laryngeal Elevation: Partial superior movement thyroid cart/partial apprx aryt- epig petiole Anterior Hyoid Excursion: Partial anterior movement Epiglottic Movement: Complete inversion Laryngeal Vestibule Closure at Height of Swallow: Incomplete; narrow column of air/contrast in laryngeal vestibule Pharyngeal Stripping Wave: Present - complete Pharyngoesophageal Segment Opening: Complete distension and complete duration; no obstruction of flow Tongue Base Retraction: Trace column of contrast between tongue base & post. pharyngeal wall Pharyngeal Residue: Trace residue within or on pharyngeal structures - Diagnosis/Impression Diagnosis: Mild oropharyngeal phase dysphagia (R13.12) Impression: The oral phase is primarily marked by... -Decreased bolus control, most notably with premature posterior loss of nectar thick liquids to the pyriforms prior to swallow onset and majority of cookie bolus to the vallecula prior to swallow onset. -Prolonged mastication of cookie with mild oral residue after the swallow. Pt benefits from either second swallow, which she independently initiated, or liquid wash to clear residue. -Slowed tongue motion for A-P transport. The pharyngeal phase is primarily marked by... -Decreased airway closure during the swallow due to mildly decreased anterior hyoid excursion and laryngeal elevation. -Laryngeal penetration on second trial of tsp sip of thin liquids during the swallow with full ejection from the laryngeal vestibule. -Coughing observed before and after consumption of various trials; however, this coughing appeared to be unrelated to laryngeal penetration or aspiration. No aspiration observed during the study. No retrograde flow of bolus through the upper esophageal sphincter observed; however, the patient has a history of GERD. She reports having recently been taken off her reflux medication due to it interacting with her medication to control atrial fibrillation. Cannot rule out risk for reflux aspiration and would recommend adhering to strict reflux precautions. - Recommendations Diet: Regular Textures - Meat cut bite size with extra sauce, Thin Liquids Compensatory Strategies: Small Bites, Small Sips, Slow Rate, Alternate bites/solids and sips/liquids, Sitting upright, Remain sitting upright for 30 minutes after PO intake Recommend Repeat Modified Barium Swallow: No Need for Skilled Speech Therapy Services: Yes Comment: Will recommend the patient for continued dysphagia therapy to address deficits in oropharyngeal swallow function. Would consider the patient for oropharyngeal strengthening to improve lingual strength, laryngeal elevation, and hyoid excursion. The patient would benefit from thorough education regarding reflux management strategies, diet recommendations, and recommended compensatory strategies to decrease risk for aspiration. Education Completed: 1. Described result of evaluation., 2. Pt understands evaluation & agrees with goals and treatment plan. - Status Active ST Patient: Active - Contact Information [facility] Speech Therapy:: Jasmyne Nina M.A. [facility]-OPTICAL INSTRUMENT INSPECTOR Speech-Language Pathologist [facility] [address] [place] [address] [email or web address] [phone] 12/22/21 12:11
--- NOTE | 2021-12-22 12:54 | CASEMGMT ---
Social Work SW met with pt and introduced self and role of SW. SW spoke with pt regarding discharge plan and pt confirmed she was interested in [facility]. [facility] had been called and pt provided answers to questions that she had regarding [facility]. When SW asked if pt would like a referral sent to [facility], pt states it is up to her daughter Santa as she makes pt's decisions. Phone call to Santa and discussed discharge plan. Santa states she has spoke with pt who would like to go to [facility] for rehabilitation and Santa is agreeable. Referral faxed to [facility]. SW will await determination of ability to accept pt. Plan: [facility], Pending acceptance and precert. MICHAEL Alanis
--- NOTE | 2021-12-22 14:07 | CON.PCM.ID_ITS ---
Assessment & Plan Assessment/Plan (1) Pseudomonas pneumonia: PLAN: Not producing sputum. Recent thoracentesis. Sx worsened while on cipro at home. On zosyn here. No fever, normal wbc. Not clear if her decompensation/hypoxia is due to worsening pseudomonal infection. Agree with waiting on pleurx while iv abx are getting started, but not clear if she will be able to produce any sputum. Will follow, thank you, d/w primary team (2) Pleural effusion, right: (3) Lung cancer: HPI Consult Data Date of Consult: 12/22/21 HPI Narrative Reason for Consultation: pneumonia HPI Narrative: ALESSANDRO GUARDADO, is a 76 F with lung cancer, recurrent R sided effusion, on immunotherapy. Recent admit, treated for PsA pneumonia, thora done. Sent home with short course cipro on 12/17. Came back 12/19 with one day worsening dyspnea, cough. Hypoxic to mid-80s on 4L. No fever or chills. Admitted on zosyn, feeling a little better. No n/v/d. Full ROS performed and neg except as noted above. [facility] Medical History Acute and chronic respiratory failure with hypoxia Acute bronchitis due to Rhinovirus Acute severe exacerbation of asthma Allergic rhinitis Anemia Anxiety Asthma Asthmatic bronchitis Atrial fibrillation BiPAP (biphasic positive airway pressure) dependence Body mass index (BMI) 50-59.9, adult Breast cancer Chronic diarrhea Chronic respiratory failure with hypoxia Dependence on supplemental oxygen Depression Diabetes Diabetes mellitus, type II Former smoker Former tobacco use GERD (gastroesophageal reflux disease) History of primary non-small cell carcinoma of right lung History of right breast cancer Hypertension Immunosuppressed due to chemotherapy Migraine headache Migraines Obstructive sleep apnea On home oxygen therapy Osteoarthritis Sleep apnea Vitamin D deficiency Home Medications cholecalciferol (vitamin D3) 1,250 mcg (50,000 unit) capsule 50,000 unit PO SUWE@0800 SUPPLEMENT 06/01/17 [History Last Taken 12/07/21] albuterol sulfate 2.5 mg/3 mL (0.083 %) solution for nebulization 2.5 mg (3 mL) inhalation Q2H PRN PRN Dyspnea, wheezing ##1 11/26/17 [Rx Last Taken 12/07/21] albuterol sulfate 90 mcg/actuation aerosol inhaler (ProAir HFA) 2 puff inhalation Q6H PRN PRN Dyspnea/Wheezing/Sob 03/25/18 [History Last Taken 12/07/21] budesonide 32 mcg/actuation nasal spray (Rhinocort Allergy) 2 puff DAILY ALLERGIES 06/12/18 [History Last Taken 12/07/21] methylphenidate HCl 20 mg tablet,extended release 20 mg PO BID ADHD 03/01/19 [History Last Taken 12/07/21] fluticasone furoate 200 mcg-vilanterol 25 mcg/dose inhalation powder (Breo Ellipta) 2 inh inhalation DAILY sob 12/09/21 [History Last Taken 12/07/21] insulin regular hum U-500 conc 500 unit/mL(3 mL) subcut pen (Humulin R U-500 (Conc) Insulin Kwikpen) 65 unit subcut DINNER diabetes 12/09/21 [History Last Taken Unknown] insulin regular hum U-500 conc 500 unit/mL(3 mL) subcut pen (Humulin R U-500 (Conc) Insulin Kwikpen) 75 unit subcut DAILY diabetes 12/09/21 [History Last Taken 12/08/21 10:00] nadolol 40 mg tablet 40 mg PO DAILY heart 12/09/21 [History Last Taken 12/07/21] paroxetine HCl 40 mg tablet (Paxil) 40 mg PO DAILY mood 12/09/21 [History Last Taken 12/07/21] acetaminophen 325 mg tablet (Tylenol) 650 mg PO Q6H PRN PRN Pain 1-10 Or Fever #0 tabs 12/16/21 [Rx Last Taken Unknown] amiodarone 200 mg tablet 100 mg PO BID 30 days #30 tabs 12/16/21 [Rx Last Taken Unknown] guaifenesin 1,200 mg tablet, extended release 12 hr (Mucus Relief ER) 1,200 mg PO BID #0 tabs 12/16/21 [Rx Last Taken Unknown] hydralazine 10 mg tablet 10 mg PO TID 30 days #90 tabs 12/16/21 [Rx Last Taken Unknown] apixaban 5 mg tablet 5 mg PO BID #60 tabs 12/17/21 [Rx Last Taken Unknown] Allergy/AdvReac Type Severity Reaction Status Date / Time adhesive tape Allergy tears skin Verified 12/19/21 18:31 cefadroxil [From Duricef] Allergy Unknown Verified 12/19/21 18:31 gluten Allergy celiac Verified 12/19/21 18:31 disease mesalamine [From Asacol] Allergy Unknown Verified 12/19/21 18:31 omalizumab [From Xolair] Allergy Unknown Verified 12/19/21 18:31 Sulfa (Sulfonamide Allergy swelling Verified 12/19/21 18:31 Antibiotics) as an infant oxycodone AdvReac Vomiting Verified 12/19/21 18:31 Family History Father Cancer Myocardial infarction Mother Cancer Metastatic breast CA Surgical History H/O rectocele repair History of lymph node dissection of right axilla History of mastectomy History of partial hysterectomy Hx of bilateral cataract extraction Hx of carpal tunnel repair Social History household members: spouse Smoking Status: Former smoker how long ago did patient quit smoking: Smoked x 2 years 1/2 ppd, quit ~ 50 years prior. alcohol intake: never substance use type: does not use Physical Exam Const alert and no apparent distress HEENT normocephalic and head/scalp atraumatic Eyes PERRL and EOMs intact bilaterally Neck supple Resp clear to auscultation bilaterally Auscultation: diminished lung sounds Cardio regular rate and regular rhythm GI soft to palpation, non-tender and non-distended Extremity no clubbing, cyanosis or edema Skin no rashes or lesions noted Neuro CN's II-XII intact bilaterally Lab / Micro Data Attestation: I reviewed the patient's lab results. Result Diagrams: 12/22/21 06:12 12/22/21 06:12 Labs: Laboratory Results - last 24 hr 12/21/21 17:43: POC Glucose 139 H 12/21/21 22:33: POC Glucose 143 H 12/22/21 06:03: POC Glucose 127 H 12/22/21 06:12: WBC 5.9, RBC 3.79 L, Hgb 10.5 L, Hct 33.6 L, MCV 88.7, MCH 27.7, MCHC 31.3 L, RDW Std Deviation 52.2 H, RDW Coeff of Aniceto 16.1 H, Plt Count 263, MPV 9.3, Immature Gran % (Auto) 0.500, Neut % (Auto) 70.3 H, Lymph % (Auto) 8.2 L, [place] % (Auto) 11.4 H, Eos % (Auto) 8.8 H, Baso % (Auto) 0.8, Absolute Neuts (auto) 4.2, Absolute Lymphs (auto) 0.49 L, Nucleated RBC % 0, Anisocytosis 1+ 12/22/21 06:12: PT 14.1, INR 1.1 12/22/21 06:12: Sodium 138, Potassium 4.1, Chloride 101, Carbon Dioxide 33.0 H, Anion Gap 4 L, BUN 11, Creatinine 0.67, Estim Creat Clear Calc 38.44, Est GFR (MDRD) Af Amer 111, Est GFR (MDRD) Non-Af 91, BUN/Creatinine Ratio 16.5, Glucose 137 H, Calcium 9.8 12/22/21 11:40: POC Glucose 292 H Micro: Microbiology 12/19/21 21:45 Blood Culture (Wb) - Right Hand Blood Culture - Preliminary No growth in 48 hours. 12/19/21 09:40 Blood Culture (Wb) - Left Hand Blood Culture - Preliminary No growth in 48 hours.
[2021-12-22 18:40] LABS: Bedside Glucose 261 mg/dL (74-106)
[2021-12-22] MEDS: Albuterol 2.5 MG/3 ML VIAL.NEB. INHALATION (19:11)
[2021-12-22] MEDS: hydrALAZINE 10 MG Tablet PO (22:28)
[2021-12-22] MEDS: 0.9% Saline Lock 10 ML Syringe IV (22:29)
[2021-12-22 23:07] LABS: Bedside Glucose 142 mg/dL (74-106)
[2021-12-23] VITALS (14 sets, daily range): BP systolic 126–136; BP diastolic 54–104; PULSE 77–85; RESP 18–25; TEMP 36.3–37.6; O2SAT 94–99
[2021-12-23] MEDS: hydrALAZINE 10 MG Tablet PO ×3 (05:38→22:32)
[2021-12-23 06:01] LABS: Bedside Glucose 125 mg/dL (74-106)
[2021-12-23 06:45] LABS: Absolute Neutrophil Count 3.7 X10^3/uL (2.0-7.7); Basophil# 0.03 X10^3/uL; Basophil% 0.6 % (0-1); Eosinophil# 0.47 X10^3/uL; Eosinophils% 8.6 % (0-5); Hematocrit 31.5 % (37-47); Lymphocyte % 9.2 % (19-41); Mean Corp Hgb Conc 31.7 g/dL (32-36); Mean Corpuscular Hgb 27.3 pg (27.0-32.0); Mean Corpuscular Volume 86.1 fL (81-99); Mean Platelet Vol. 9.2 fl (6.2-12.0); Monocyte# 0.72 X10^3/uL; Monocyte% 13.2 % (0-10); NRBC Flagged by Analyzer 0 % (0-5); Neutrophil # 3.68 X10^3/uL (2.7-7.7); Neutrophil % 67.7 % (47-70); POSITIVE DIFFERENTIAL YES; Platelet Count 227 K/mm3 (150-450); RBC Distribution Width CV 15.9 % (11.6-14.6); RBC Distribution Width SD 50.2 fl (35.1-43.9); Red Blood Count 3.66 M/mm3 (4.2-5.4); White Blood Count 5.4 K/mm3 (4.4-11.0)
[2021-12-23 06:46] LABS: Differential Indicated SCAN CRITERIA MET
[2021-12-23 07:04] LABS: Differential Comment SCANNED
[2021-12-23 07:20] LABS: Anion Gap 5 (5-15); BUN 12 mg/dL (7-18); BUN/Creat Ratio 15.7 RATIO (10-20); Calcium,Total 9.1 mg/dL (8.5-10.1); Chloride 103 mmol/L (98-107); Creatinine, Serum 0.76 mg/dL (0.55-1.02); EST Glomerular Filtration Rate 78 mL/min (>60); Est Glom Filt Rate - Afr Amer 95 mL/min (>60); Estimated Creatinine Clearance 38.44 ml/min; Glucose 136 mg/dL (74-106); Potassium 3.7 mmol/L (3.5-5.1); Sodium Level 135 mmol/L (136-145)
--- NOTE | 2021-12-23 08:21 | PN.SURG_ITS ---
Subjective Subjective Patient evaluated resting comfortably in bed. She denies any shortness of breath at this time. Objective Data Objective Data Vital Signs: Vital Signs Temp Pulse Resp BP Pulse Ox O2 Del Method O2 Flow Rate 98.1 F 78 20 H 127/62 H 94 Bi-pap 4 12/23/21 05:28 12/23/21 05:38 12/23/21 05:28 12/23/21 05:38 12/23/21 05:28 12/23/21 05:33 12/23/21 05:33 Oxygen Flow Rate (L/min) 4 Oxygen Delivery Method Bi-pap Weight: 278 lb 0.046 oz Body Mass Index (BMI) 49.4 Intake & Output: Intake and Output for Last 24 Hours 12/21/21 12/22/21 12/23/21 23:59 23:59 23:59 Intake Total 1056 / 1056 800 / 800 50 / 50 Output Total 1200 / 1350 1125 / 1125 200 / 200 Balance -144 / -294 -325 / -325 -150 / -150 Lab / Micro Data Result Diagrams: 12/23/21 06:38 12/23/21 06:38 Labs: Laboratory Results - last 24 hr 12/22/21 11:40: POC Glucose 292 H 12/22/21 18:18: POC Glucose 261 H 12/22/21 22:34: POC Glucose 142 H 12/23/21 05:36: POC Glucose 125 H 12/23/21 06:38: WBC 5.4, RBC 3.66 L, Hgb 10.0 L, Hct 31.5 L, MCV 86.1, MCH 27.3, MCHC 31.7 L, RDW Std Deviation 50.2 H, RDW Coeff of Aniceto 15.9 H, Plt Count 227, MPV 9.2, Immature Gran % (Auto) 0.700, Neut % (Auto) 67.7, Lymph % (Auto) 9.2 L, [place] % (Auto) 13.2 H, Eos % (Auto) 8.6 H, Baso % (Auto) 0.6, Absolute Neuts (auto) 3.7, Absolute Lymphs (auto) 0.50 L, Nucleated RBC % 0, Differential Comment SCANNED 12/23/21 06:38: Sodium 135 L, Potassium 3.7, Chloride 103, Carbon Dioxide 27.0, Anion Gap 5, BUN 12, Creatinine 0.76, Estim Creat Clear Calc 38.44, Est GFR (MDRD) Af Amer 95, Est GFR (MDRD) Non-Af 78, BUN/Creatinine Ratio 15.7, Glucose 136 H, Calcium 9.1 Micro: Microbiology 12/19/21 21:45 Blood Culture (Wb) - Right Hand Blood Culture - Preliminary No growth in 48 hours. 12/19/21 09:40 Blood Culture (Wb) - Left Hand Blood Culture - Preliminary No growth in 48 hours. 12/19/21 20:20 Nasal Secretion SARS-CoV-2 Antigen (Rapid) - Final Physical Exam Resp normal respiratory effort Effort and Inspection: able to speak in complete sentences Auscultation: rales right and diminished lung sounds right lower Assessment & Plan Assessment/Plan (1) Pleural effusion: PLAN: Obtain chest xray today to reassess pleural effusion. If fluid collection present, Dr. Medina will plan to shahida the patient using ultrasound tomorrow to potentially proceed with pleurex catheter placement on . Await patient's follow-up sputum culture. This has been uncollected at this time. Patient has been treated recently for pneumonia. Patient to have a follow-up sputum culture prior to placing a pleurex catheter to decrease the risk of potential infection once the catheter is placed. Patient has had the opportunity to ask and have questions answered. Patient verbally understands and agrees with the plan. Await for above results. Dr. Medina will return to the office tomorrow and follow-up with the patient at that time. Charges/Coding Visit Charges Inpatient E&M: 19675 Subs Hosp L1
--- NOTE | 2021-12-23 09:28 | CASEMGMT ---
Discharge Mainframe Programmer Cathy Dove/praveen Assistive Technology Specialist reached out to [facility]. Patient has not been accepted yet. [facility] is clinically reviewing her referral still. [facility] is asking for today's PT/OT notes. [facility] was going to ask PT/OT to see patient as soon as they can. Cathy Avitia Discharge Mainframe Programmer
--- NOTE | 2021-12-23 09:45 | PCM.PN.HOSP ---
Documented by User: Jenna Cabrera NP, MICROBIOLOGY LABORATORY MANAGER-C 12/23/21 09:59 Subjective Subjective Patient seen and examined. Denies worsening shortness unproductive cough. Denies fever, chills. Amendable to SNF at discharge. Objective Data Objective Data Vital Signs: Vital Signs Temp Pulse Resp BP Pulse Ox O2 Del Method O2 Flow Rate 98.1 F 78 20 H 127/62 H 95 Nasal Cannula 4 12/23/21 05:28 12/23/21 05:38 12/23/21 05:28 12/23/21 05:38 12/23/21 08:52 12/23/21 08:52 12/23/21 08:52 Oxygen Flow Rate (L/min) 4 Oxygen Delivery Method Nasal Cannula Weight: 278 lb 0.046 oz Body Mass Index (BMI) 49.4 Intake & Output: Intake and Output for Last 24 Hours 12/21/21 12/22/21 12/23/21 23:59 23:59 23:59 Intake Total 1056 / 1056 800 / 800 50 / 50 Output Total 1200 / 1350 1125 / 1125 200 / 200 Balance -144 / -294 -325 / -325 -150 / -150 Lab / Micro Data Result Diagrams: 12/23/21 06:38 12/23/21 06:38 Labs: Laboratory Results - last 24 hr 12/22/21 11:40: POC Glucose 292 H 12/22/21 18:18: POC Glucose 261 H 12/22/21 22:34: POC Glucose 142 H 12/23/21 05:36: POC Glucose 125 H 12/23/21 06:38: WBC 5.4, RBC 3.66 L, Hgb 10.0 L, Hct 31.5 L, MCV 86.1, MCH 27.3, MCHC 31.7 L, RDW Std Deviation 50.2 H, RDW Coeff of Aniceto 15.9 H, Plt Count 227, MPV 9.2, Immature Gran % (Auto) 0.700, Neut % (Auto) 67.7, Lymph % (Auto) 9.2 L, [place] % (Auto) 13.2 H, Eos % (Auto) 8.6 H, Baso % (Auto) 0.6, Absolute Neuts (auto) 3.7, Absolute Lymphs (auto) 0.50 L, Nucleated RBC % 0, Differential Comment SCANNED 12/23/21 06:38: Sodium 135 L, Potassium 3.7, Chloride 103, Carbon Dioxide 27.0, Anion Gap 5, BUN 12, Creatinine 0.76, Estim Creat Clear Calc 38.44, Est GFR (MDRD) Af Amer 95, Est GFR (MDRD) Non-Af 78, BUN/Creatinine Ratio 15.7, Glucose 136 H, Calcium 9.1 Micro: Microbiology 12/19/21 21:45 Blood Culture (Wb) - Right Hand Blood Culture - Preliminary No growth in 48 hours. 12/19/21 09:40 Blood Culture (Wb) - Left Hand Blood Culture - Preliminary No growth in 48 hours. 12/19/21 20:20 Nasal Secretion SARS-CoV-2 Antigen (Rapid) - Final Physical Exam Const alert and oriented x3 Nutritional Appearance: morbidly obese HEENT normocephalic and moist oral mucous membranes Eyes PERRL, EOMs intact bilaterally and conjunctivae normal Neck no lymphadenopathy Resp clear to auscultation bilaterally Auscultation: diminished lung sounds Cardio regular rate and no murmurs Cardio Narrative: A. fib, rate controlled Peripheral Pulses: pulses 2+ throughout GI normal to inspection, nondistended, normoactive bowel sounds, non-tender and non-distended Extremity normal to inspection Skin no rashes or lesions noted Lesions: no lesions Rashes: no rashes Trauma: no lacerations or abrasions Neuro CN's II-XII intact bilaterally, no focal motor deficits, no sensory deficits noted and deep tendon reflexes 2+ bilaterally Psych mental status grossly normal and affect normal Assessment & Plan Assessment/Plan (1) Pseudomonas pneumonia: (2) Pleural effusion, right: PLAN: Plan 1.? Recurrent right pleural effusion, suspected Pseudomonas pneumonia versus aspiration-recent thoracentesis 12/15/2021.? General surgery consulted for possible Pleurx catheter placement, tentatively on . Awaiting follow-up sputum culture as previous culture grew Pseudomonas. Continue IV Zosyn. Speech therapy consulted. ID following. Underwent modified barium swallow. Continue dietary modifications per speech therapy recommendations. Aspiration precautions. 2.? Recent onset paroxysmal atrial fibrillation with RVR-rate now controlled.? Continue amiodarone, nadolol.? Eliquis temporarily held due to plans for Pleurx catheter. 3. Stage III lung cancer- Follows with Dr. Willa. Previously completed chemo and radiation.? On immunotherapy. 4. Chronic hypoxic respiratory failure secondary to chronic asthma, lung cancer with recurrent pleural effusion-wears 4 L nasal cannula at baseline.? On baseline home O2 requirements.? Albuterol aerosol. 5. Type 2 diabetes [id number] with sliding scale insulin. 6. Hypertension-stable, continue current regimen. 7. Anxiety/depression/ADD- on Paxil, methylphenidate. 8. DORY-reports noncompliance with CPAP. 9. Morbid obesity-encouraged diet and lifestyle modifications. 10.? Debility-recently discharged 12/17/2021 and refused SNF.? Now amendable. SNF pending acceptance. DVT prophylaxis-Patricia Allen This patient was seen by HIRAL Alarcon under the supervision of Dr. Abreu. Time spent examining patient, reviewing data and subsequent management of care: 14 minutes Documented by User: Dr. Jamee Abreu MD 12/23/21 12:18 Objective Data Lab / Micro Data Result Diagrams: 12/23/21 06:38 12/23/21 06:38 Assessment & Plan Assessment/Plan (1) Pseudomonas pneumonia: (2) Pleural effusion, right: Charges/Coding Addendum Addendum: This patient was seen in conjunction with Jenna Cabrera NP.? I have independently interviewed and examined the patient and reviewed pertinent historical, laboratory, and other data. I have reviewed her note and concur with her documentation Patient was seen and examined.? No acute overnight. She remains on 4 L of oxygen. Patient appears comfortable. Physical Exam: Gen: Comfortable, not pale, not jaundiced CVS:HS I +II, regular, no murmurs RESP: Diminished at lung bases GI: BS present and normal, soft, nontender, no palpable organs EXT:No edema ASSESSMENT: 1.? Recurrent right pleural effusion 2.? Mild oropharyngeal dysphagia 3.? Paroxysmal atrial fibrillation 4.? Stage IIIc 5.? Chronic hypoxic respiratory failure 6.? Type II DM 7.? Hypertension 8.? Anxiety/depression 9.? DORY 10.? Morbid obesity Plan: Continue IV Zosyn, ID following sputum cultures pending Encourage use of incentive spirometer Follow-up on speech therapy recommendations Visit Charges Inpatient E&M: 94061 Subs Hosp L2
--- NOTE | 2021-12-23 10:10 | PCM.PN.ID ---
Physical Exam Narrative Feeling better. Had some sputum last night but unable to provide sample. No fever. Const alert and no apparent distress Resp clear to auscultation bilaterally Cardio regular rate and regular rhythm GI soft to palpation, non-tender and non-distended Skin no rashes or lesions noted ID ID: Route of nutrition/ use of supplements: [] Nutritional Intake: [] IV Site: [] Hansen Catheter: [] Assessment & Plan Assessment/Plan (1) Pseudomonas pneumonia: PLAN: Recent thoracentesis. Sx worsened while on cipro at home. On zosyn here. No fever, normal wbc. Not clear if her decompensation/hypoxia is due to worsening pseudomonal infection. Plan is for pleurx later this week. She will try to give sputum sample. Will follow (2) Pleural effusion, right: (3) Lung cancer:
[2021-12-23] MEDS: Amiodarone 200 MG Tablet 100 MG PO ×2 (10:33→22:36)
[2021-12-23] MEDS: Fluticasone 0.05% 1 SPRAY NASAL.SRY NASAL (10:34)
[2021-12-23] MEDS: Nadolol 40 MG Tablet PO (10:34)
[2021-12-23] MEDS: guaiFENesin 1,200 MG Tablet 1200 MG PO ×2 (10:34→22:36)
[2021-12-23] MEDS: Nystatin Powder 15gm Bottle 1 APPLIC TOPICAL ×2 (10:34→22:37)
[2021-12-23] MEDS: 0.9% Saline Lock 10 ML Syringe IV ×3 (10:39→22:31)
[2021-12-23] MEDS: Ondansetron 4 MG/2 ML Vial IV (10:44)
--- NOTE | 2021-12-23 11:00 | RAD_ITS ---
STUDY: X-RAY CHEST REASON FOR EXAM: Female, 76 years old. f/u pleural effusion TECHNIQUE: PA and lateral views of the chest. COMPARISON: Comparison is made with prior study dated 12/11/2021. FINDINGS: A left-sided PICC line catheter is seen and is unchanged. Progressive opacification of the right upper lobe with volume loss. Progressive nodular density along the medial aspect of the right upper lobe. Mild increased right pleural effusion with right basilar scarring. The left lung is unchanged. Normal size heart. Normal mediastinum and tanna. Normal visualized pulmonary arteries. There is atherosclerotic calcification of the aortic arch with tortuosity. There are diffuse degenerative changes of the visualized thoracic spine. Normal visualized ribs, clavicles, and shoulders. There is no demonstrated abnormality of the visualized soft tissue structures of the upper abdomen. RAD/Chest PA and Lateral IMPRESSION: Progressive opacification of the right upper lobe with mild increased right pleural effusion and right basilar atelectasis. Electronically Signed: Salazar Garcia MD at 13:08 EDT ,
--- NOTE | 2021-12-23 11:15 | CASEMGMT ---
Discharge Negative Developer Cathy alejandra/praveen events assistant faxed over new PT/OT notes to [place]. Will follow up. Cathy Avitia Discharge Negative Developer
--- NOTE | 2021-12-23 11:45 | CASEMGMT ---
Discharge Order Desk Caller [facility] called and asked if we had a 6 clicks on file and I said that the 6 clicks have not gone live at [facility] yet. [facility] said they will keep reviewing. Cathy Avitia Discharge Order Desk Caller
[2021-12-23 11:55] LABS: Bedside Glucose 257 mg/dL (74-106)
--- NOTE | 2021-12-23 12:51 | CASEMGMT ---
Discharge Dramatic Director Cathy reached back out to [place]. [place] is still reviewing. Cathy asked if the clinical director could give me a call. Will keep following up. Cathy Avitia Discharge Dramatic Director
[2021-12-23] MEDS: Insulin Lispro 100 UNIT/ML INSULN.PEN SC ×2 (13:19→17:53)
[2021-12-23] MEDS: Albuterol 2.5 MG/3 ML VIAL.NEB. INHALATION ×2 (13:55→19:05)
--- NOTE | 2021-12-23 14:11 | CASEMGMT ---
TC to [place] pt dtr to obtain a second choice for SNF. Daughter is requesting information on why she needs to have a second choice. She is aware that [facility] wants to complete an on site visit to see how her mother is physically moving, speak to the nurse regarding the bipap and that it was relayed the family was difficult. Daughter then states she had a great relationship with them and she will contact them regarding this. She states she is not in any position right now to give a second choice. She requests lists be emailed to her at [email or web address]. JASWINDER CM emailed [facility] and [facility] lists specifying the in network facilities. SW updated.
--- NOTE | 2021-12-23 15:42 | US_ITS ---
EXAM: US CHEST CLINICAL INDICATION: Right pleural effusion -- Check fluid and possibly shahida the area for pleurex TECHNIQUE: Real-time ultrasound of the chest with image documentation. This report was created using [employer] report generation technology. COMPARISON: None. FINDINGS: PLEURAL SPACE: Moderate right pleural effusion. Anechoic. No septations or loculations. Estimated AP extent at least 9 cm superior to the diaphragm and at least 8 cm craniocaudal on my measurement. No left pleural effusion. SOFT TISSUES: Unremarkable. No mass or fluid collection. LYMPH NODES: Unremarkable. No lymphadenopathy. US/Chest IMPRESSION: Moderate right pleural effusion. Electronically Signed: Stacy Johnson MD at 3:12 EDT ,
[2021-12-23] MEDS: proCHLORPERazine 10 MG/2 ML Vial 5 MG IV (16:51)
[2021-12-23 17:15] LABS: Bedside Glucose 174 mg/dL (74-106)
[2021-12-24] VITALS (10 sets, daily range): BP systolic 126–141; BP diastolic 54–83; PULSE 60–86; RESP 16–18; TEMP 36.4–37.1; O2SAT 95–99
--- NOTE | 2021-12-24 03:35 | SLEEP ---
Pt lost her home nasal mask for her BiPAP machine, Fitted pt with new mask.
[2021-12-24 05:04] LABS: Bedside Glucose 134 mg/dL (74-106)
[2021-12-24] MEDS: hydrALAZINE 10 MG Tablet PO ×3 (05:20→22:19)
[2021-12-24 06:35] LABS: Bedside Glucose 130 mg/dL (74-106)
[2021-12-24 06:56] LABS: Absolute Lymphocyte Count 0.47 X10^3/uL (0.83-4.51); Absolute Neutrophil Count 3.5 X10^3/uL (2.0-7.7); Basophil# 0.05 X10^3/uL; Eosinophils% 9.5 % (0-5); Hematocrit 31.9 % (37-47); Hemoglobin 9.9 g/dL (12.0-15.0); Lymphocyte # 0.47 X10^3/ul (0.83-4.51); Lymphocyte % 8.9 % (19-41); Mean Corpuscular Hgb 27.3 pg (27.0-32.0); Mean Corpuscular Volume 88.1 fL (81-99); Mean Platelet Vol. 9.8 fl (6.2-12.0); Monocyte# 0.71 X10^3/uL; Monocyte% 13.5 % (0-10); NRBC Flagged by Analyzer 0 % (0-5); Neutrophil # 3.51 X10^3/uL (2.7-7.7); Neutrophil % 66.7 % (47-70); POSITIVE DIFFERENTIAL YES; Platelet Count 241 K/mm3 (150-450); RBC Distribution Width CV 15.9 % (11.6-14.6); RBC Distribution Width SD 50.7 fl (35.1-43.9); Red Blood Count 3.62 M/mm3 (4.2-5.4); White Blood Count 5.3 K/mm3 (4.4-11.0)
[2021-12-24 07:02] LABS: Differential Indicated SCAN CRITERIA MET
[2021-12-24] MEDS: Albuterol 2.5 MG/3 ML VIAL.NEB. INHALATION ×2 (07:16→10:33)
[2021-12-24 07:23] LABS: Differential Comment SCANNED
[2021-12-24 07:37] LABS: Anion Gap 3 (5-15); BUN 9 mg/dL (7-18); BUN/Creat Ratio 13.7 RATIO (10-20); Calcium,Total 9.5 mg/dL (8.5-10.1); Chloride 102 mmol/L (98-107); Creatinine, Serum 0.66 mg/dL (0.55-1.02); EST Glomerular Filtration Rate 93 mL/min (>60); Est Glom Filt Rate - Afr Amer 113 mL/min (>60); Estimated Creatinine Clearance 38.44 ml/min; Glucose 139 mg/dL (74-106); Potassium 3.8 mmol/L (3.5-5.1); Sodium Level 139 mmol/L (136-145)
--- NOTE | 2021-12-24 08:07 | PCM.PN.HOSP ---
Objective Data Objective Data Vital Signs: Vital Signs Temp Pulse Resp BP Pulse Ox O2 Del Method O2 Flow Rate 98.3 F 86 18 133/83 H 99 CPAP 4 12/24/21 04:30 12/24/21 07:16 12/24/21 07:16 12/24/21 05:20 12/24/21 07:16 12/24/21 07:16 12/24/21 07:16 FiO2 4 12/24/21 03:35 Oxygen Flow Rate (L/min) 4 Oxygen Delivery Method CPAP Weight: 126.1 kg Body Mass Index (BMI) 49.4 Intake & Output: Intake and Output for Last 24 Hours 12/22/21 12/23/21 12/24/21 23:59 23:59 23:59 Intake Total 800 / 800 1004.5 / 1124.5 210.5 / 210.5 Output Total 1125 / 1125 1050 / 1350 750 / 750 Balance -325 / -325 -45.5 / -225.5 -539.5 / -539.5 Lab / Micro Data Result Diagrams: 12/24/21 06:32 12/24/21 06:32 Labs: Laboratory Results - last 24 hr 12/23/21 11:32: POC Glucose 257 H 12/23/21 16:37: POC Glucose 174 H 12/23/21 23:51: POC Glucose 134 H 12/24/21 06:12: POC Glucose 130 H 12/24/21 06:32: WBC 5.3, RBC 3.62 L, Hgb 9.9 L, Hct 31.9 L, MCV 88.1, MCH 27.3, MCHC 31.0 L, RDW Std Deviation 50.7 H, RDW Coeff of Aniceto 15.9 H, Plt Count 241, MPV 9.8, Immature Gran % (Auto) 0.400, Neut % (Auto) 66.7, Lymph % (Auto) 8.9 L, [place] % (Auto) 13.5 H, Eos % (Auto) 9.5 H, Baso % (Auto) 1.0, Absolute Neuts (auto) 3.5, Absolute Lymphs (auto) 0.47 L, Nucleated RBC % 0, Differential Comment SCANNED 12/24/21 06:32: Sodium 139, Potassium 3.8, Chloride 102, Carbon Dioxide 34.0 H, Anion Gap 3 L, BUN 9, Creatinine 0.66, Estim Creat Clear Calc 38.44, Est GFR (MDRD) Af Amer 113, Est GFR (MDRD) Non-Af 93, BUN/Creatinine Ratio 13.7, Glucose 139 H, Calcium 9.5 Micro: Microbiology 12/19/21 21:45 Blood Culture (Wb) - Right Hand Blood Culture - Preliminary No growth in 48 hours. 12/19/21 09:40 Blood Culture (Wb) - Left Hand Blood Culture - Preliminary No growth in 48 hours. 12/19/21 20:20 Nasal Secretion SARS-CoV-2 Antigen (Rapid) - Final Radiography Diagnostic Testing: Radiology Impression Chest X-Ray 12/23/21 11:00 IMPRESSION: Progressive opacification of the right upper lobe with mild increased right pleural effusion and right basilar atelectasis. Electronically Signed: Salazar Garcia MD at 13:08 EDT ,
[2021-12-24] MEDS: Amiodarone 200 MG Tablet 100 MG PO ×2 (08:23→22:20)
[2021-12-24] MEDS: Nadolol 40 MG Tablet PO (08:24)
[2021-12-24] MEDS: Fluticasone 0.05% 1 SPRAY NASAL.SRY NASAL (08:24)
[2021-12-24] MEDS: guaiFENesin 1,200 MG Tablet 1200 MG PO ×2 (08:25→22:20)
[2021-12-24] MEDS: Nystatin Powder 15gm Bottle 1 APPLIC TOPICAL ×2 (08:25→22:30)
--- NOTE | 2021-12-24 08:25 | PN.SURG_ITS ---
Subjective Subjective Patient is a 76 y/o F I am following for recurrent right pleural effusion. Patient denies increased shortness of breath. She notes she is unable to provide a sputum specimen. Patient evaluated resting comfortably in bed. Objective Data Objective Data Vital Signs: Vital Signs Temp Pulse Resp BP Pulse Ox O2 Del Method O2 Flow Rate 98.3 F 86 18 133/83 H 99 CPAP 4 12/24/21 04:30 12/24/21 07:16 12/24/21 07:16 12/24/21 05:20 12/24/21 07:16 12/24/21 07:16 12/24/21 07:16 FiO2 4 12/24/21 03:35 Oxygen Flow Rate (L/min) 4 Oxygen Delivery Method CPAP Weight: 278 lb 0.046 oz Body Mass Index (BMI) 49.4 Intake & Output: Intake and Output for Last 24 Hours 12/22/21 12/23/21 12/24/21 23:59 23:59 23:59 Intake Total 800 / 800 1004.5 / 1124.5 210.5 / 210.5 Output Total 1125 / 1125 1050 / 1350 750 / 750 Balance -325 / -325 -45.5 / -225.5 -539.5 / -539.5 Lab / Micro Data Result Diagrams: 12/24/21 06:32 12/24/21 06:32 Labs: Laboratory Results - last 24 hr 12/23/21 11:32: POC Glucose 257 H 12/23/21 16:37: POC Glucose 174 H 12/23/21 23:51: POC Glucose 134 H 12/24/21 06:12: POC Glucose 130 H 12/24/21 06:32: WBC 5.3, RBC 3.62 L, Hgb 9.9 L, Hct 31.9 L, MCV 88.1, MCH 27.3, MCHC 31.0 L, RDW Std Deviation 50.7 H, RDW Coeff of Aniceto 15.9 H, Plt Count 241, MPV 9.8, Immature Gran % (Auto) 0.400, Neut % (Auto) 66.7, Lymph % (Auto) 8.9 L, [place] % (Auto) 13.5 H, Eos % (Auto) 9.5 H, Baso % (Auto) 1.0, Absolute Neuts (auto) 3.5, Absolute Lymphs (auto) 0.47 L, Nucleated RBC % 0, Differential Comment SCANNED 12/24/21 06:32: Sodium 139, Potassium 3.8, Chloride 102, Carbon Dioxide 34.0 H, Anion Gap 3 L, BUN 9, Creatinine 0.66, Estim Creat Clear Calc 38.44, Est GFR (MDRD) Af Amer 113, Est GFR (MDRD) Non-Af 93, BUN/Creatinine Ratio 13.7, Glucose 139 H, Calcium 9.5 Micro: Microbiology 12/19/21 21:45 Blood Culture (Wb) - Right Hand Blood Culture - Preliminary No growth in 48 hours. 12/19/21 09:40 Blood Culture (Wb) - Left Hand Blood Culture - Preliminary No growth in 48 hours. 12/19/21 20:20 Nasal Secretion SARS-CoV-2 Antigen (Rapid) - Final Radiography Diagnostic Testing: Radiology Impression Chest X-Ray 12/23/21 11:00 IMPRESSION: Progressive opacification of the right upper lobe with mild increased right pleural effusion and right basilar atelectasis. Electronically Signed: Salazar Garcia MD at 13:08 EDT , Chest Ultrasound 12/23/21 15:42 IMPRESSION: Moderate right pleural effusion. Electronically Signed: Stacy Johnson MD at 3:12 EDT , Physical Exam Resp normal respiratory effort Effort and Inspection: able to speak in complete sentences Auscultation: diminished lung sounds right throughout Assessment & Plan Assessment/Plan (1) Pleural effusion: PLAN: -Patient had a chest ultrasound yesterday which demonstrated a moderate right pleural effusion. -No sputum culture has been collected at this time -During examination patient had a productive cough each time patient performed a deep breath -Unsure if patient would benefit from sitting in a chair and having respiratory assist with additional mucous production. At this time the mucous is not being coughed up -I will contact I.D. to discuss timeframe of placing pleurex catheter without sputum culture as patient continues to have IV zosyn on board -U/s able to assist with Pleurex today if patient is able to proceed otherwise plan for Pleurex early next week -We will continue to monitor this patient Charges/Coding Visit Charges Inpatient E&M: 63039 [facility] Hosp L1
--- NOTE | 2021-12-24 10:29 | PCM.PN.HOSP ---
Documented by User: Jenna Cabrera NP, GEOSPATIAL TECHNICIAN-C 12/24/21 10:41 Subjective Subjective Patient seen and examined. Resting in bed. No acute events overnight. Patient denies worsening shortness of breath. Objective Data Objective Data Vital Signs: Vital Signs Temp Pulse Resp BP Pulse Ox O2 Del Method O2 Flow Rate 97.5 F L 77 16 140/54 H 96 Nasal Cannula 4 12/24/21 09:18 12/24/21 09:18 12/24/21 09:18 12/24/21 09:18 12/24/21 09:18 12/24/21 09:18 12/24/21 09:18 FiO2 4 12/24/21 03:35 Oxygen Flow Rate (L/min) 4 Oxygen Delivery Method Nasal Cannula Weight: 278 lb 0.046 oz Body Mass Index (BMI) 49.4 Intake & Output: Intake and Output for Last 24 Hours 12/22/21 12/23/21 12/24/21 23:59 23:59 23:59 Intake Total 800 / 800 1004.5 / 1124.5 260.5 / 260.5 Output Total 1125 / 1125 1050 / 1350 750 / 750 Balance -325 / -325 -45.5 / -225.5 -489.5 / -489.5 Lab / Micro Data Result Diagrams: 12/24/21 06:32 12/24/21 06:32 Labs: Laboratory Results - last 24 hr 12/23/21 11:32: POC Glucose 257 H 12/23/21 16:37: POC Glucose 174 H 12/23/21 23:51: POC Glucose 134 H 12/24/21 06:12: POC Glucose 130 H 12/24/21 06:32: WBC 5.3, RBC 3.62 L, Hgb 9.9 L, Hct 31.9 L, MCV 88.1, MCH 27.3, MCHC 31.0 L, RDW Std Deviation 50.7 H, RDW Coeff of Aniceto 15.9 H, Plt Count 241, MPV 9.8, Immature Gran % (Auto) 0.400, Neut % (Auto) 66.7, Lymph % (Auto) 8.9 L, Stokes % (Auto) 13.5 H, Eos % (Auto) 9.5 H, Baso % (Auto) 1.0, Absolute Neuts (auto) 3.5, Absolute Lymphs (auto) 0.47 L, Nucleated RBC % 0, Differential Comment SCANNED 12/24/21 06:32: Sodium 139, Potassium 3.8, Chloride 102, Carbon Dioxide 34.0 H, Anion Gap 3 L, BUN 9, Creatinine 0.66, Estim Creat Clear Calc 38.44, Est GFR (MDRD) Af Amer 113, Est GFR (MDRD) Non-Af 93, BUN/Creatinine Ratio 13.7, Glucose 139 H, Calcium 9.5 Micro: Microbiology 12/19/21 21:45 Blood Culture (Wb) - Right Hand Blood Culture - Preliminary No growth in 48 hours. 12/19/21 09:40 Blood Culture (Wb) - Left Hand Blood Culture - Preliminary No growth in 48 hours. 12/19/21 20:20 Nasal Secretion SARS-CoV-2 Antigen (Rapid) - Final Radiography Diagnostic Testing: Radiology Impression Chest X-Ray 12/23/21 11:00 IMPRESSION: Progressive opacification of the right upper lobe with mild increased right pleural effusion and right basilar atelectasis. Electronically Signed: Salazar Garcia MD at 13:08 EDT , Chest Ultrasound 12/23/21 15:42 IMPRESSION: Moderate right pleural effusion. Electronically Signed: Stacy Johnson MD at 3:12 EDT , Physical Exam Const alert and oriented x3 Nutritional Appearance: morbidly obese HEENT normocephalic and moist oral mucous membranes Eyes PERRL, EOMs intact bilaterally and conjunctivae normal Neck no lymphadenopathy Resp clear to auscultation bilaterally Auscultation: diminished lung sounds Cardio regular rate and no murmurs Cardio Narrative: A. fib Peripheral Pulses: pulses 2+ throughout GI normal to inspection, nondistended, normoactive bowel sounds, non-tender and non-distended Extremity normal to inspection Skin no rashes or lesions noted Lesions: no lesions Rashes: no rashes Trauma: no lacerations or abrasions Neuro CN's II-XII intact bilaterally, no focal motor deficits, no sensory deficits noted and deep tendon reflexes 2+ bilaterally Psych mental status grossly normal and affect normal Assessment & Plan Assessment/Plan (1) Recurrent pleural effusion on right: PLAN: Plan 1.? Recurrent right pleural effusion, suspected Pseudomonas pneumonia versus aspiration-recent thoracentesis 12/15/2021.? General surgery consulted for possible Pleurx catheter placement.? Awaiting follow-up sputum culture as previous culture grew Pseudomonas.? Continue IV Zosyn.? Speech therapy consulted.? ID following.? Underwent modified barium swallow.? Continue dietary modifications per speech therapy recommendations.? Aspiration precautions. Sputum induction ordered to assist with sputum culture. Pulmonary medicine consulted, follows with Dr. Watters. 2.? Recent onset paroxysmal atrial fibrillation with RVR-rate controlled.? Continue amiodarone, nadolol.? Eliquis temporarily held due to plans for Pleurx catheter. 3. Stage III lung cancer- Follows with Dr. Crouch. Previously completed chemo and radiation.? On immunotherapy. 4. Chronic hypoxic respiratory failure secondary to chronic asthma, lung cancer with recurrent pleural effusion-wears 4 L nasal cannula at baseline.? On baseline home O2 requirements.? Albuterol aerosol. 5. Type 2 diabetes [id number] with sliding scale insulin. 6. Hypertension-stable, continue current regimen. 7. Anxiety/depression/ADD- on Paxil, methylphenidate. 8. DORY-reports noncompliance with CPAP. 9. Morbid obesity-encouraged diet and lifestyle modifications. 10.? Debility-recently discharged 12/17/2021 and refused SNF.? Now amendable. SNF pending acceptance. DVT prophylaxis-SCDs, Eliquis on hold. Lovenox added for DVT prophylaxis This patient was seen by HIRAL Alarcon under the supervision of Dr. Abreu. Time spent examining patient, reviewing data and subsequent management of care: 14 minutes Documented by User: Dr. Jamee Abreu MD 12/24/21 12:48 Objective Data Lab / Micro Data Result Diagrams: 12/24/21 06:32 12/24/21 06:32 Assessment & Plan Assessment/Plan (1) Recurrent pleural effusion on right: Charges/Coding Addendum Addendum: This patient was seen in conjunction with Jenna Cabrera NP.? I have independently interviewed and examined the patient and reviewed pertinent historical, laboratory, and other data. I have reviewed her note and concur with her documentation Patient was seen and examined.?No acute overnight.? She remains on 4 L of oxygen.? Patient is reluctant to move from bed to chair or sit up. She has been unable to produce sputum. Sputum induction by respiratory therapy requested. Pulmonology consult placed?Dr. Watters after discussion with general surgery for possible bronchoscopy. Physical Exam: Gen: Comfortable, not pale, not jaundiced CVS:HS I +II, regular, no murmurs RESP: Diminished at lung bases GI: BS present and normal, soft, nontender, no palpable organs EXT:No edema ASSESSMENT: 1.? Recurrent right pleural effusion 2.? Mild oropharyngeal dysphagia 3.? Paroxysmal atrial fibrillation 4.? Stage IIIc 5.? Chronic hypoxic respiratory failure 6.? Type II DM 7.? Hypertension 8.? Anxiety/depression 9.? DORY 10.? Morbid obesity Plan: Sputum induction, sputum cultures Pulmonology consult continue IV Zosyn, ID following Encourage use of incentive spirometer Follow-up on speech therapy recommendations Encourage ambulation out of bed Discharge planning to care home facility Time spent coordinating patient's care, discussing with general surgery, and nursin minutes Visit Charges Inpatient E&M: 47045 Subs Hosp L2
--- NOTE | 2021-12-24 10:41 | CASEMGMT ---
Social Work Per RNCM, pt's daughter Roxi sent email requesting increased home health services and Passport services. Prior to admission, pt was seen by [facility]. Phone call to QUINCY Zapata who states she visited pt on Tuesday 12/19. Per Jodi, Pt has a hospital bed in the living room and is in the bed all of the time. There is a BSC but pt does not get up to use it. Pt's dgt in law, who is from [facility], visits once a day to change pt. Pt lives with her spouse. Jodi spoke with pt regarding food and Pt informed her that her spouse does some minimal cooking. Referral was made to [facility] for Passport at that visit. Phone call to [facility] and spoke with Ruthie. ROMI provided additional information for a Passport referral and requested that pt dgt Roxi be contacted for assessment as pt has deferred all decision making to Roxi. Pt's information taken and entered into referral system. Ruthie confirms this will be followed up on. Although, Passport services do take time to get started. ROMI will follow up with pt daughter for further d/c planning. MICHAEL Alanis
[2021-12-24 11:35] LABS: Bedside Glucose 130 mg/dL (74-106)
[2021-12-24] MEDS: Enoxaparin 40 MG/0.4 ML Syringe SC (12:33)
--- NOTE | 2021-12-24 12:45 | CASEMGMT ---
Addendum entered by Brianna Cortez 12/24/21 15:47: Social Work This ROMI called Apryl at [facility] to obtain determination of acceptance. Apryl stated she needed to check with clinical team and call this SW back. ROMI received a phone call from Apryl at this time stating pt has been denied acceptance. Phone call to pt Roxi and informed of [facility] denial. ROMI also spoke to Roxi about Passport program and explained that pt has been referred but this is a process and not a gaurantee she will qualify and not an immediate fix to pts care needs. Roxi expresses understanding to this. Roxi requesting that SW check with [facility] and would like a private room. Call to Kishore at [facility] and while they do have private rooms, they do not have beds available. Call back to Roxi and informed of this. ROMI requested next SNF choice. Roxi states she needs time to consider and research options and will not give this SW another SNF choice at this time. Roxi states she will call ROMI back when she makes decision. ROMI to follow up tomorrow. MICHAEL Alanis Original Note: Social Work Apryl from [facility] here to meet with pt and assess for admission. ROMI spoke with Apryl who states she believes they can accomodate pt but will need to speak with clinical team when she returns to [facility] and will call this SW with final determination of acceptance. ROMI will await phone call with determination. MICHAEL Alanis
--- NOTE | 2021-12-24 12:55 | PCM.PN.ID ---
Physical Exam Narrative Breathing at baseline, no fever, minimal sputum Const alert and no apparent distress Resp Auscultation: diminished lung sounds Cardio regular rate and regular rhythm GI soft to palpation, non-tender and non-distended Skin no rashes or lesions noted ID ID: Route of nutrition/ use of supplements: [] Nutritional Intake: [] IV Site: [] Hansen Catheter: [] Assessment & Plan Assessment/Plan (1) Pseudomonas pneumonia: PLAN: Recent thoracentesis. Sx worsened while on cipro at home. On zosyn here. No fever, normal wbc. Not clear if her decompensation/hypoxia is due to worsening pseudomonal infection. Reports she gave a tiny sputum sample. Hard to definitively say if there is still ongoing infection; give overall clinical picture, ok for pleurx placement from ID perspective. Will follow, d/w surgery. (2) Pleural effusion, right: (3) Lung cancer:
[2021-12-24 17:25] LABS: Bedside Glucose 111 mg/dL (74-106)
--- NOTE | 2021-12-24 20:49 | CPS ---
patient is on her home cpap unit at this time with a 5 liter O2 bleed in
[2021-12-24] MEDS: Ondansetron 4 MG/2 ML Vial IV (22:15)
[2021-12-24] MEDS: MELATONIN 3 MG TABLET PO (22:16)
[2021-12-24] MEDS: Insulin Lispro 100 UNIT/ML INSULN.PEN SC (22:33)
[2021-12-24 22:55] LABS: Bedside Glucose 170 mg/dL (74-106)
[2021-12-24] MEDS: proCHLORPERazine 10 MG/2 ML Vial 5 MG IV (23:22)
[2021-12-24] MEDS: 0.9% Saline Lock 10 ML Syringe IV (23:22)
[2021-12-25] VITALS (9 sets, daily range): BP systolic 103–152; BP diastolic 43–81; PULSE 67–84; RESP 18–26; TEMP 36.7–37.1; O2SAT 97–99
[2021-12-25] MEDS: hydrALAZINE 10 MG Tablet PO ×3 (06:08→22:53)
[2021-12-25] MEDS: Enoxaparin 40 MG/0.4 ML Syringe SC (06:08)
[2021-12-25 06:35] LABS: Absolute Lymphocyte Count 0.56 X10^3/uL (0.83-4.51); Absolute Neutrophil Count 3.7 X10^3/uL (2.0-7.7); Basophil# 0.03 X10^3/uL; Basophil% 0.5 % (0-1); Eosinophil# 0.59 X10^3/uL; Eosinophils% 10.5 % (0-5); Hematocrit 29.9 % (37-47); Hemoglobin 9.5 g/dL (12.0-15.0); Lymphocyte # 0.56 X10^3/ul (0.83-4.51); Lymphocyte % 9.9 % (19-41); Mean Corp Hgb Conc 31.8 g/dL (32-36); Mean Corpuscular Hgb 27.5 pg (27.0-32.0); Mean Corpuscular Volume 86.7 fL (81-99); Mean Platelet Vol. 9.4 fl (6.2-12.0); Monocyte# 0.74 X10^3/uL; Monocyte% 13.1 % (0-10); NRBC Flagged by Analyzer 0 % (0-5); Neutrophil % 65.6 % (47-70); POSITIVE DIFFERENTIAL YES; Platelet Count 237 K/mm3 (150-450); RBC Distribution Width CV 15.6 % (11.6-14.6); RBC Distribution Width SD 49.1 fl (35.1-43.9); Red Blood Count 3.45 M/mm3 (4.2-5.4); White Blood Count 5.6 K/mm3 (4.4-11.0)
[2021-12-25 06:37] LABS: Differential Indicated SCAN CRITERIA MET
[2021-12-25 06:46] LABS: Bedside Glucose 126 mg/dL (74-106)
[2021-12-25 06:53] LABS: Differential Comment SCANNED
[2021-12-25 07:13] LABS: Anion Gap 4 (5-15); BUN 13 mg/dL (7-18); BUN/Creat Ratio 16.7 RATIO (10-20); Calcium,Total 9.1 mg/dL (8.5-10.1); Chloride 103 mmol/L (98-107); Creatinine, Serum 0.78 mg/dL (0.55-1.02); EST Glomerular Filtration Rate 77 mL/min (>60); Est Glom Filt Rate - Afr Amer 93 mL/min (>60); Estimated Creatinine Clearance 38.44 ml/min; Glucose 134 mg/dL (74-106); Potassium 3.9 mmol/L (3.5-5.1); Sodium Level 139 mmol/L (136-145)
--- NOTE | 2021-12-25 08:19 | PCM.PN.SRG ---
Subjective Subjective Patient seen and examined during AM rounds. She is found sleeping in bed. She states that she is experiencing some shortness of breath but nothing significant. She confirms that she did provide a sample for sputum culture yesterday. She states that her cough is approximately status quo. Objective Data Objective Data Vital Signs: Vital Signs Temp Pulse Resp BP Pulse Ox O2 Del Method O2 Flow Rate 98.3 F 73 18 108/62 98 CPAP 5 12/25/21 06:00 12/25/21 06:08 12/25/21 06:00 12/25/21 06:08 12/25/21 07:15 12/25/21 07:15 12/25/21 07:15 FiO2 4 12/24/21 03:35 Oxygen Flow Rate (L/min) 5 Oxygen Delivery Method CPAP Weight: 279 lb 1.683 oz Body Mass Index (BMI) 49.4 Intake & Output: Intake and Output for Last 24 Hours 12/23/21 12/24/21 12/25/21 23:59 23:59 23:59 Intake Total 1004.5 / 1124.5 739.75 / 739.75 50 / 50 Output Total 1050 / 1350 1450 / 1450 300 / 300 Balance -45.5 / -225.5 -710.25 / -710.25 -250 / -250 Lab / Micro Data Result Diagrams: 12/25/21 06:20 12/25/21 06:20 Labs: Laboratory Results - last 24 hr 12/24/21 11:12: POC Glucose 130 H 12/24/21 17:08: POC Glucose 111 H 12/24/21 22:33: POC Glucose 170 H 12/25/21 06:14: POC Glucose 126 H 12/25/21 06:20: WBC 5.6, RBC 3.45 L, Hgb 9.5 L, Hct 29.9 L, MCV 86.7, MCH 27.5, MCHC 31.8 L, RDW Std Deviation 49.1 H, RDW Coeff of Aniceto 15.6 H, Plt Count 237, MPV 9.4, Immature Gran % (Auto) 0.400, Neut % (Auto) 65.6, Lymph % (Auto) 9.9 L, [place] % (Auto) 13.1 H, Eos % (Auto) 10.5 H, Baso % (Auto) 0.5, Absolute Neuts (auto) 3.7, Absolute Lymphs (auto) 0.56 L, Nucleated RBC % 0, Differential Comment SCANNED 12/25/21 06:20: Sodium 139, Potassium 3.9, Chloride 103, Carbon Dioxide 32.0, Anion Gap 4 L, BUN 13, Creatinine 0.78, Estim Creat Clear Calc 38.44, Est GFR (MDRD) Af Amer 93, Est GFR (MDRD) Non-Af 77, BUN/Creatinine Ratio 16.7, Glucose 134 H, Calcium 9.1 Micro: Microbiology 12/19/21 21:45 Blood Culture (Wb) - Right Hand Blood Culture - Final No growth in 5 days. 12/19/21 09:40 Blood Culture (Wb) - Left Hand Blood Culture - Preliminary No growth in 48 hours. 12/19/21 20:20 Nasal Secretion SARS-CoV-2 Antigen (Rapid) - Final Radiography Diagnostic Testing: Radiology Impression Chest Ultrasound 12/23/21 15:42 IMPRESSION: Moderate right pleural effusion. Electronically Signed: Stacy Johnson MD at 3:12 EDT , Physical Exam Const oriented x3 and no apparent distress Resp normal respiratory effort Resp Narrative: Barking cough, diminished lung sounds on the right with auscultation Assessment & Plan Assessment/Plan (1) Pleural effusion, right: PLAN: -Patient had a chest ultrasound 12/23/2021 which demonstrated a moderate right pleural effusion. -Sputum culture now pending from yesterday -During examination patient continues to have a productive cough -According to ID note Pleurx catheter okay from their perspective. However now that a sample has been provided, would like to await this result before proceeding. ? Tentatively plan for Pleurx catheter placement 12/29/2021. Patient should be held n.p.o. past midnight day prior Charges/Coding Visit Charges Inpatient E&M: 70932 Subs Hosp L2
[2021-12-25] MEDS: Amiodarone 200 MG Tablet 100 MG PO ×2 (11:01→22:52)
[2021-12-25] MEDS: Nadolol 40 MG Tablet PO (11:02)
[2021-12-25] MEDS: guaiFENesin 1,200 MG Tablet 1200 MG PO ×2 (11:02→22:52)
[2021-12-25] MEDS: Fluticasone 0.05% 1 SPRAY NASAL.SRY NASAL (11:02)
[2021-12-25] MEDS: Nystatin Powder 15gm Bottle 1 APPLIC TOPICAL ×2 (11:03→22:53)
--- NOTE | 2021-12-25 11:15 | PCM.PN.HOSP ---
Documented by User: HIRAL Pan 12/25/21 11:27 Subjective Subjective Patient seen and examined. Patient lying in bed no distress noted, BiPAP on. Objective Data Objective Data Vital Signs: Vital Signs Temp Pulse Resp BP Pulse Ox O2 Del Method O2 Flow Rate 98.7 F 75 18 152/81 H 97 Nasal Cannula 4 12/25/21 09:15 12/25/21 09:15 12/25/21 09:15 12/25/21 09:15 12/25/21 09:15 12/25/21 10:25 12/25/21 10:25 FiO2 4 12/24/21 03:35 Oxygen Flow Rate (L/min) 4 Oxygen Delivery Method Nasal Cannula Weight: 279 lb 1.683 oz Body Mass Index (BMI) 49.4 Intake & Output: Intake and Output for Last 24 Hours 12/23/21 12/24/21 12/25/21 23:59 23:59 23:59 Intake Total 1004.5 / 1124.5 739.75 / 739.75 50 / 50 Output Total 1050 / 1350 1450 / 1450 300 / 300 Balance -45.5 / -225.5 -710.25 / -710.25 -250 / -250 Lab / Micro Data Result Diagrams: 12/25/21 06:20 12/25/21 06:20 Labs: Laboratory Results - last 24 hr 12/24/21 11:12: POC Glucose 130 H 12/24/21 17:08: POC Glucose 111 H 12/24/21 22:33: POC Glucose 170 H 12/25/21 06:14: POC Glucose 126 H 12/25/21 06:20: WBC 5.6, RBC 3.45 L, Hgb 9.5 L, Hct 29.9 L, MCV 86.7, MCH 27.5, MCHC 31.8 L, RDW Std Deviation 49.1 H, RDW Coeff of Aniceto 15.6 H, Plt Count 237, MPV 9.4, Immature Gran % (Auto) 0.400, Neut % (Auto) 65.6, Lymph % (Auto) 9.9 L, [place]bury % (Auto) 13.1 H, Eos % (Auto) 10.5 H, Baso % (Auto) 0.5, Absolute Neuts (auto) 3.7, Absolute Lymphs (auto) 0.56 L, Nucleated RBC % 0, Differential Comment SCANNED 12/25/21 06:20: Sodium 139, Potassium 3.9, Chloride 103, Carbon Dioxide 32.0, Anion Gap 4 L, BUN 13, Creatinine 0.78, Estim Creat Clear Calc 38.44, Est GFR (MDRD) Af Amer 93, Est GFR (MDRD) Non-Af 77, BUN/Creatinine Ratio 16.7, Glucose 134 H, Calcium 9.1 Micro: Microbiology 12/24/21 13:26 Sputum, Expectorated/Coughed Gram Stain - Final 12/19/21 09:40 Blood Culture (Wb) - Left Hand Blood Culture - Final No growth in 5 days. 12/19/21 21:45 Blood Culture (Wb) - Right Hand Blood Culture - Final No growth in 5 days. 12/19/21 20:20 Nasal Secretion SARS-CoV-2 Antigen (Rapid) - Final Physical Exam Const oriented x3 General Appearance: cooperative and comfortable Orientation / Consciousness: lethargic HEENT head/scalp atraumatic and moist oral mucous membranes Head and Scalp: normocephalic Eyes conjunctivae normal and no scleral icterus Neck no lymphadenopathy and supple Resp normal respiratory effort and clear to auscultation bilaterally Cardio regular rate, regular rhythm, S1 normal heart sound and S2 normal heart sound GI normal to inspection, nondistended, normoactive bowel sounds, soft to palpation and non-tender Extremity normal to inspection General Extremity: edema bilateral lower extremity Details: moderate Neuro oriented x3, moves all extremities, no focal motor deficits and no sensory deficits noted Psych affect normal Assessment & Plan Assessment/Plan (1) Recurrent pleural effusion on right: PLAN: Plan 1.? Recurrent right pleural effusion, suspected Pseudomonas pneumonia versus aspiration -recent thoracentesis 12/15/2021.? -General surgery consulted for possible Pleurx catheter placement -Awaiting follow-up sputum culture as previous culture grew Pseudomonas. -Continue IV Zosyn. ID following -Speech therapy following, continue aspiration precautions 2.? Recent onset paroxysmal atrial fibrillation with RVR -Rate controlled.? -Continue amiodarone, nadolol.? -Eliquis on hold for Pleurx catheter. 3. Stage III lung cancer - Follows with Dr. Crouch. Previously completed chemo and radiation.? -On immunotherapy. 4. Chronic hypoxic respiratory failure secondary to chronic asthma, lung cancer with recurrent pleural effusion -currently on 4L n/c which is baseline -Albuterol aerosol. -BiPAP at at bedtime and with naps 5. Type 2 diabetes mellitus -Accu-Cheks with sliding scale insulin. 6. Hypertension -stable, continue current regimen. 7. Anxiety/depression/ADD -on Paxil, methylphenidate. 8. DORY -reports noncompliance with CPAP. 9. Morbid obesity -encouraged diet and lifestyle modifications. 10.? Debility -recently discharged 12/17/2021 and refused SNF.? Now amendable. SNF pending acceptance. DVT prophylaxis-Patricia Allen This patient was seen by Vivian Olson NP-C under the supervision of Dr. Abreu. 12 minutes spent in clinical coordination of patient's plan of care. Documented by User: Dr. Jamee Abreu MD 12/25/21 14:34 Objective Data Lab / Micro Data Result Diagrams: 12/25/21 06:20 12/25/21 06:20 Assessment & Plan Assessment/Plan (1) Recurrent pleural effusion on right: Charges/Coding Addendum Addendum: This patient was seen in conjunction with Jenna Cabrera NP.? I have independently interviewed and examined the patient and reviewed pertinent historical, laboratory, and other data. I have reviewed her note and concur with her documentation Patient was seen and examined.?No acute overnight.? Patient was able to produce some sputum yesterday. Sputum cultures are pending. Physical Exam: Gen: Comfortable, not pale, not jaundiced CVS:HS I +II, regular, no murmurs RESP: Diminished at lung bases GI: BS present and normal, soft, nontender, no palpable organs EXT:No edema ASSESSMENT: 1.? Recurrent right pleural effusion 2.? Mild oropharyngeal dysphagia 3.? Paroxysmal atrial fibrillation 4.? Stage IIIc 5.? Chronic hypoxic respiratory failure 6.? Type II DM 7.? Hypertension 8.? Anxiety/depression 9.? DORY 10.? Morbid obesity Plan: Follow-up on sputum cultures continue IV Zosyn, ID and general surgery following Pleurx catheter planned for Wednesday encourage use of incentive spirometer Encourage ambulation out of bed Discharge planning to long-term facility Time spent coordinating patient's care, discussing with general surgery, and nursin minutes Visit Charges Inpatient E&M: 13282 Subs Hosp L2
--- NOTE | 2021-12-25 12:08 | CASEMGMT ---
Social Work Pt's dgt Roxi has inquired about 5 star facilities and private rooms for pt. ROMI called the following facilities to check on bed availability. Per physician pt may be ready for discharge at the beginning of next week. ROMI emailed the below list to pt dgt and requested return call with choices of facilities as it is a process to get an accepting facility and insurance approval. Roxi confirmed that she received email and will review list and notify SW of choices. [facility] 4 and 5 Star Facilities [facility] - 5 star, Private rooms available [facility] - 4 star, Private rooms, may have availability [facility] - 4 star, no rooms available [facility] - 5 star, Private rooms available [facility] - 5 star, semi private room, may have availability [facility] 4 and 5 Star Facilities [facility] - 5 Star, denied [facility] - 4 Star, Private Rooms Available [facility] - 4 Star, No rooms available [facility] 4 and 5 Star Facilities [facility] - 4 Star, Private Room available [place] - 5 Star, no rooms available [facility] 4 and 5 Star Facilities [facility] - 5 Star, Private Rooms available [facility] - 4 Star, Private Rooms available [place] - 4 Star, Possible Private Room available [facility] - 4 Star, Private Rooms available [facility] - 4 Star, Private Rooms available [facility] - 4 Star, voice mail left [facility] - 4 Star, No rooms available MICHAEL Alanis
[2021-12-25 12:36] LABS: Bedside Glucose 130 mg/dL (74-106)
--- NOTE | 2021-12-25 13:07 | CASEMGMT ---
Social Work SW placed phone call to pt dgt Roxi to review information sent and request SNF choices. Roxi states she has not had time to review the list yet. She will review list in a bit and email this SW back. MICHAEL Alanis
[2021-12-25] MEDS: Insulin Lispro 100 UNIT/ML INSULN.PEN SC (18:08)
[2021-12-25 18:36] LABS: Bedside Glucose 209 mg/dL (74-106)
[2021-12-25] MEDS: Albuterol 2.5 MG/3 ML VIAL.NEB. INHALATION (19:32)
[2021-12-26] VITALS (9 sets, daily range): BP systolic 117–135; BP diastolic 45–66; PULSE 73–93; RESP 18–20; TEMP 36.6–37.3; O2SAT 95–99
[2021-12-26 00:31] LABS: Bedside Glucose 123 mg/dL (74-106)
[2021-12-26] MEDS: Enoxaparin 40 MG/0.4 ML Syringe SC (05:28)
[2021-12-26] MEDS: hydrALAZINE 10 MG Tablet PO ×3 (05:28→21:57)
[2021-12-26 05:55] LABS: Absolute Lymphocyte Count 0.45 X10^3/uL (0.83-4.51); Absolute Neutrophil Count 3.2 X10^3/uL (2.0-7.7); Basophil# 0.03 X10^3/uL; Basophil% 0.6 % (0-1); Eosinophil# 0.46 X10^3/uL; Eosinophils% 9.9 % (0-5); Hemoglobin 9.2 g/dL (12.0-15.0); Lymphocyte # 0.45 X10^3/ul (0.83-4.51); Lymphocyte % 9.7 % (19-41); Mean Corp Hgb Conc 31.7 g/dL (32-36); Mean Corpuscular Hgb 27.2 pg (27.0-32.0); Mean Corpuscular Volume 85.8 fL (81-99); Mean Platelet Vol. 9.1 fl (6.2-12.0); Monocyte% 10.8 % (0-10); NRBC Flagged by Analyzer 0 % (0-5); Neutrophil % 68.8 % (47-70); POSITIVE DIFFERENTIAL YES; Platelet Count 207 K/mm3 (150-450); RBC Distribution Width CV 15.6 % (11.6-14.6); RBC Distribution Width SD 48.7 fl (35.1-43.9); Red Blood Count 3.38 M/mm3 (4.2-5.4); White Blood Count 4.7 K/mm3 (4.4-11.0)
[2021-12-26 05:56] LABS: Differential Indicated SCAN CRITERIA MET
[2021-12-26 06:13] LABS: Differential Comment SCANNED
[2021-12-26 06:41] LABS: ALB/GLOB Ratio 0.5 RATIO (0.9-2.4); AST(SGOT) 18 U/L (15-37); Alanine Aminotransfer ALT/SGPT 13 U/L (13-56); Alkaline Phosphatase 99 U/L (45-117); Anion Gap 3 (5-15); BUN 10 mg/dL (7-18); BUN/Creat Ratio 17.3 RATIO (10-20); Calcium,Total 9.1 mg/dL (8.5-10.1); Chloride 104 mmol/L (98-107); Creatinine, Serum 0.58 mg/dL (0.55-1.02); EST Glomerular Filtration Rate 108 mL/min (>60); Est Glom Filt Rate - Afr Amer 131 mL/min (>60); Estimated Creatinine Clearance 38.44 ml/min; Globulin 4.3 g/dL (2.2-4.2); Glucose 128 mg/dL (74-106); Potassium 3.7 mmol/L (3.5-5.1); Protein, Total 6.3 g/dL (6.4-8.2); Sodium Level 139 mmol/L (136-145)
[2021-12-26 07:00] LABS: Bedside Glucose 115 mg/dL (74-106)
--- NOTE | 2021-12-26 08:08 | CM.UR ---
Discharge Outboard System Operator Cathy Dove/praveen surveyor instrument assistant faxed a referral to Vivian at [facility]. Will follow up. Plan: Waiting Acceptance at [facility] Cathy Avitia Discharge Outboard System Operator
--- NOTE | 2021-12-26 08:39 | CASEMGMT ---
Social Work SW received email from pt dgt requesting referral be made to [facility]. Cathy d/praveen travel assistant made aware and to send referral. Plan: [facility], pending acceptance and precert MICHAEL Alanis
--- NOTE | 2021-12-26 09:50 | CASEMGMT ---
Addendum entered by Cathy Avitia 12/26/21 11:38: Discharge Strategic Planning Manager Cathy chan server service assistant tried calling Vivian again with admissions. Got voicemail again left another voicemail trying to find out if Vivian has reviewed referral. Will follow. Cathy Avitia Discharge Strategic Planning Manager Original Note: Discharge Strategic Planning Manager Cathy Chan server service assistant called Vivian at [facility] to check on referral and left a voicemail. Will follow up. Cathy Avitia Discharge Strategic Planning Manager
[2021-12-26] MEDS: Nadolol 40 MG Tablet PO (10:06)
[2021-12-26] MEDS: Fluticasone 0.05% 1 SPRAY NASAL.SRY NASAL (10:06)
[2021-12-26] MEDS: guaiFENesin 1,200 MG Tablet 1200 MG PO ×2 (10:06→21:58)
[2021-12-26] MEDS: Nystatin Powder 15gm Bottle 1 APPLIC TOPICAL ×2 (10:07→21:58)
[2021-12-26] MEDS: Amiodarone 200 MG Tablet 100 MG PO ×2 (10:07→21:58)
--- NOTE | 2021-12-26 10:41 | PCM.PN.HOSP ---
Documented by User: Vivian Olson NP-Phoebe 12/26/21 10:46 Subjective Subjective Patient seen and examined. Patient sitting in bed no distress noted. Patient states that she is feeling a little bit better than when she initially came in. Objective Data Objective Data Vital Signs: Vital Signs Temp Pulse Resp BP Pulse Ox O2 Del Method O2 Flow Rate 98.3 F 76 18 124/66 H 98 Nasal Cannula 4 12/26/21 08:27 12/26/21 08:27 12/26/21 08:27 12/26/21 08:27 12/26/21 08:27 12/26/21 08:27 12/26/21 09:22 FiO2 4 12/24/21 03:35 Oxygen Flow Rate (L/min) 4 Oxygen Delivery Method Nasal Cannula Weight: 278 lb 7.101 oz Body Mass Index (BMI) 49.4 Intake & Output: Intake and Output for Last 24 Hours 12/24/21 12/25/21 12/26/21 23:59 23:59 23:59 Intake Total 739.75 / 739.75 1400 / 1400 50 / 50 Output Total 1450 / 1450 600 / 600 Balance -710.25 / -710.25 800 / 800 50 / 50 Lab / Micro Data Result Diagrams: 12/26/21 05:49 12/26/21 05:49 Labs: Laboratory Results - last 24 hr 12/25/21 12:15: POC Glucose 130 H 12/25/21 18:07: POC Glucose 209 H 12/25/21 22:57: POC Glucose 123 H 12/26/21 05:49: WBC 4.7, RBC 3.38 L, Hgb 9.2 L, Hct 29.0 L, MCV 85.8, MCH 27.2, MCHC 31.7 L, RDW Std Deviation 48.7 H, RDW Coeff of Aniceto 15.6 H, Plt Count 207, MPV 9.1, Immature Gran % (Auto) 0.200, Neut % (Auto) 68.8, Lymph % (Auto) 9.7 L, [place] % (Auto) 10.8 H, Eos % (Auto) 9.9 H, Baso % (Auto) 0.6, Absolute Neuts (auto) 3.2, Absolute Lymphs (auto) 0.45 L, Nucleated RBC % 0, Differential Comment SCANNED 12/26/21 05:49: Sodium 139, Potassium 3.7, Chloride 104, Carbon Dioxide 32.0, Anion Gap 3 L, BUN 10, Creatinine 0.58, Estim Creat Clear Calc 38.44, Est GFR (MDRD) Af Amer 131, Est GFR (MDRD) Non-Af 108, BUN/Creatinine Ratio 17.3, Glucose 128 H, Calcium 9.1, Total Bilirubin 0.30, AST 18, ALT 13, Alkaline Phosphatase 99, Total Protein 6.3 L, Albumin 2.0 L, Globulin 4.3 H, Albumin/Globulin Ratio 0.5 L 12/26/21 06:39: POC Glucose 115 H Micro: Microbiology 12/24/21 13:26 Sputum, Expectorated/Coughed Gram Stain - Final 12/24/21 13:26 Sputum, Expectorated/Coughed Respiratory Culture - Preliminary Gram negative analisa Presumptive C albicans Mixed Mary 12/19/21 09:40 Blood Culture (Wb) - Left Hand Blood Culture - Final No growth in 5 days. 12/19/21 21:45 Blood Culture (Wb) - Right Hand Blood Culture - Final No growth in 5 days. 12/19/21 20:20 Nasal Secretion SARS-CoV-2 Antigen (Rapid) - Final Physical Exam Const oriented x3 General Appearance: cooperative and comfortable Orientation / Consciousness: lethargic HEENT head/scalp atraumatic and moist oral mucous membranes Eyes conjunctivae normal and no scleral icterus Neck no lymphadenopathy and supple Resp normal respiratory effort and clear to auscultation bilaterally Resp Narrative: Diffusely diminished but no adventitious sounds noted today, remains on 4 L nasal cannula Cardio regular rate, regular rhythm, S1 normal heart sound and S2 normal heart sound GI normal to inspection, nondistended, normoactive bowel sounds, soft to palpation and non-tender GI Narrative: Large abdomen with pannus Extremity normal to inspection Extremity Narrative: Ecchymosis left upper extremity where we attempted to access her port unsuccessfully, appears to be healing, soft General Extremity: edema bilateral lower extremity Details: moderate Skin Skin Narrative: Midline left upper extremity with large ecchymotic area from previous med port access attempt-appears to be healing Neuro oriented x3, moves all extremities, no focal motor deficits and no sensory deficits noted Psych affect normal Assessment & Plan Assessment/Plan (1) Recurrent pleural effusion on right: PLAN: Plan 1.? Recurrent right pleural effusion, suspected Pseudomonas pneumonia versus aspiration -recent thoracentesis 12/15/2021.? -General surgery consulted for possible Pleurx catheter placement -Awaiting follow-up sputum culture as previous culture grew Pseudomonas. -Continue IV Zosyn. ID following -Speech therapy following, continue aspiration precautions 2.? Recent onset paroxysmal atrial fibrillation with RVR -Rate controlled.? -Continue amiodarone, nadolol.? -Eliquis on hold for Pleurx catheter. 3. Stage III lung cancer -Follows with Dr. Crouch. Previously completed chemo and radiation.? -On immunotherapy. 4. Chronic hypoxic respiratory failure secondary to chronic asthma, lung cancer with recurrent pleural effusion -currently on 4L n/c which is baseline -Albuterol aerosol. -BiPAP at at bedtime and with naps 5. Type 2 diabetes mellitus -Accu-Cheks with sliding scale insulin. 6. Hypertension -stable, continue current regimen. 7. Anxiety/depression/ADD -on Paxil, methylphenidate. 8. DORY -reports noncompliance with CPAP. 9. Morbid obesity -encouraged diet and lifestyle modifications. 10.? Debility -recently discharged 12/17/2021 and refused SNF.? Now amendable. SNF pending acceptance. DVT prophylaxis-[facility] This patient was seen by Vivian Olson NP-C under the supervision of Dr. Abreu. 13 minutes spent in clinical coordination of patient's plan of care. Documented by User: Dr. Jamee Abreu MD 12/26/21 15:30 Objective Data Lab / Micro Data Result Diagrams: 12/26/21 05:49 12/26/21 05:49 Assessment & Plan Assessment/Plan (1) Recurrent pleural effusion on right: Charges/Coding Addendum Addendum: This patient was seen in conjunction with Jenna Cabrera NP.? I have independently interviewed and examined the patient and reviewed pertinent historical, laboratory, and other data. I have reviewed her note and concur with her documentation Patient was seen and examined.?No acute overnight.?Still coughing. Sputum cultures showed GNR, presumptive grant albicans, mixed mary Physical Exam: Gen: Comfortable, not pale, not jaundiced CVS:HS I +II, regular, no murmurs RESP: Diminished at lung bases GI: BS present and normal, soft, nontender, no palpable organs EXT:No edema ASSESSMENT: 1.? Recurrent right pleural effusion 2.? Mild oropharyngeal dysphagia 3.? Paroxysmal atrial fibrillation 4.? Stage IIIc 5.? Chronic hypoxic respiratory failure 6.? Type II DM 7.? Hypertension 8.? Anxiety/depression 9.? DORY 10. Morbid obesity Plan: Continue IV Zosyn, ID and general surgery following Pleurx catheter planned for Wednesday Encourage use of incentive spirometer Encourage ambulation out of bed Discharge planning to detention facility Time spent coordinating patient's care, discussing with general surgery, and nursin minutes Visit Charges Inpatient E&M: 68848 Subs Hosp L2
--- NOTE | 2021-12-26 10:56 | CASEMGMT ---
Discharge Dock Coordinator Family is requesting a referral to also be sent to [facility]. Cathy alejandra/praveen export sales assistant talked with Melisa in admissions. [facility] does not have any private rooms available and is unsure when a room will open up. Cathy still sent referral over. Cathy notified ROMI Biranna and asked if Brianna can make this clear to the daughter in case daughter picks this facility if accepted. Plan: [facility] vs [facility] Cathy Avitia Discharge Dock Coordinator
--- NOTE | 2021-12-26 11:42 | CASEMGMT ---
Social Work SW received second email requesting referral be sent to [facility] as well as [facility]. wes Morgan furniture removalist's assistant notified and to fax referral. SW did update pt dgt that [facility] only has traditional shared rooms available. SW to await determination from [facility] and [facility]. MICHAEL Alanis
[2021-12-26] MEDS: Insulin Lispro 100 UNIT/ML INSULN.PEN SC ×2 (12:07→22:12)
--- NOTE | 2021-12-26 12:08 | PCM.PN.ID ---
Physical Exam Narrative Feeling better, no sputum, no fever Const alert and no apparent distress Resp normal air movement and clear to auscultation bilaterally Cardio regular rate and regular rhythm GI soft to palpation, non-tender and non-distended Skin no rashes or lesions noted ID ID: Route of nutrition/ use of supplements: [] Nutritional Intake: [] IV Site: [] Hansen Catheter: [] Assessment & Plan Assessment/Plan (1) Pseudomonas pneumonia: PLAN: Recent thoracentesis. Sx worsened while on cipro at home. On zosyn here. No fever, normal wbc. Not clear if her decompensation/hypoxia is due to worsening pseudomonal infection. Hard to definitively say if there is still ongoing infection; give overall clinical picture, ok for pleurx placement from ID perspective. Sputum cx showing rare GNR, mixed mary, yeast. Will follow (2) Pleural effusion, right: (3) Lung cancer:
[2021-12-26 12:30] LABS: Bedside Glucose 200 mg/dL (74-106)
--- NOTE | 2021-12-26 12:32 | CASEMGMT ---
Discharge Insulation Cutter And Former Melisa Morgan d/c . [facility] can accept patient. ROMI Reed is going to check with patients daughter to see if this is the option the daughter will pick. Will follow up. Cathy Avitia Discharge Insulation Cutter And Former
--- NOTE | 2021-12-26 13:02 | CASEMGMT ---
Discharge Drawer Waxer Cathy D/c Pharmacy Technician Infusion got a hold of Vivian. Referral was never received. Cathy sent it via email. Will follow up. Cathy Avitia Discharge Drawer Waxer
--- NOTE | 2021-12-26 16:03 | CASEMGMT ---
[facility] This SW called Vivian at [facility] and left two messages requesting a decision. No return call from [facility]. SW updated pt dgt Santa that [facility] can accept but no response from [facility]. Santa state she will not make a decision until we hear from [facility]. MICHAEL Alanis
[2021-12-26 17:20] LABS: Bedside Glucose 145 mg/dL (74-106)
[2021-12-26] MEDS: Albuterol 2.5 MG/3 ML VIAL.NEB. INHALATION (19:42)
[2021-12-27] VITALS (16 sets, daily range): BP systolic 113–180; BP diastolic 51–104; PULSE 44–101; RESP 18–30; TEMP 36–37.2; O2SAT 79–100
[2021-12-27 00:15] LABS: Bedside Glucose 163 mg/dL (74-106)
--- NOTE | 2021-12-27 00:15 | RAD_ITS ---
INDICATION: respiratory distress EXAMINATION/TECHNIQUE: X-RAY - XR Chest 1 View COMPARISON: 12/23/2021 FINDINGS: LINES/DEVICES: Left PICC with tip terminating in the SVC. LUNGS: Right upper lobe opacity with elevation of the minor fissure, increased compared to the prior. Right basal patchy opacities. Small right pleural effusion. MEDIASTINUM AND CARDIOVASCULAR STRUCTURES: Cardiomediastinal contours, similar compared to the prior. BONES AND SOFT TISSUES: Surgical clips in the right axilla, similar compared to prior. Degenerative changes of the visualized spine. No acute osseous normality.. RAD/Chest 1 View (Portable) IMPRESSION: 1. Increased right upper lobe opacity, most likely represents upper lobe atelectasis, cannot exclude superimposed infection. 2. Patchy right basal opacities, may represent compressive atelectasis or infection. 3. Small right pleural effusion. Electronically Signed: Jonathon Stringer MD at 1:02 EDT ,
[2021-12-27] MEDS: hydrALAZINE 10 MG Tablet PO ×3 (06:17→21:10)
[2021-12-27] MEDS: Enoxaparin 40 MG/0.4 ML Syringe SC (06:17)
[2021-12-27 06:28] LABS: Absolute Lymphocyte Count 0.49 X10^3/uL (0.83-4.51); Absolute Neutrophil Count 3.2 X10^3/uL (2.0-7.7); Basophil# 0.03 X10^3/uL; Basophil% 0.6 % (0-1); Eosinophil# 0.47 X10^3/uL; Hematocrit 31.5 % (37-47); Lymphocyte # 0.49 X10^3/ul (0.83-4.51); Lymphocyte % 10.4 % (19-41); Mean Corp Hgb Conc 31.7 g/dL (32-36); Mean Corpuscular Hgb 27.9 pg (27.0-32.0); Mean Platelet Vol. 9.1 fl (6.2-12.0); Monocyte# 0.53 X10^3/uL; Monocyte% 11.2 % (0-10); NRBC Flagged by Analyzer 0 % (0-5); Neutrophil # 3.18 X10^3/uL (2.7-7.7); Neutrophil % 67.4 % (47-70); POSITIVE DIFFERENTIAL YES; Platelet Count 220 K/mm3 (150-450); RBC Distribution Width CV 15.5 % (11.6-14.6); RBC Distribution Width SD 50.2 fl (35.1-43.9); Red Blood Count 3.58 M/mm3 (4.2-5.4); White Blood Count 4.7 K/mm3 (4.4-11.0)
[2021-12-27 06:33] LABS: Differential Indicated SCAN CRITERIA MET
[2021-12-27 06:45] LABS: Bedside Glucose 142 mg/dL (74-106)
[2021-12-27 06:48] LABS: ALB/GLOB Ratio 0.5 RATIO (0.9-2.4); AST(SGOT) 15 U/L (15-37); Alanine Aminotransfer ALT/SGPT 13 U/L (13-56); Albumin, Serum 2.2 g/dL (3.2-5.0); Alkaline Phosphatase 97 U/L (45-117); Anion Gap 3 (5-15); BUN 8 mg/dL (7-18); Calcium,Total 9.4 mg/dL (8.5-10.1); Chloride 105 mmol/L (98-107); Creatinine, Serum 0.66 mg/dL (0.55-1.02); EST Glomerular Filtration Rate 92 mL/min (>60); Est Glom Filt Rate - Afr Amer 111 mL/min (>60); Estimated Creatinine Clearance 38.44 ml/min; Globulin 4.3 g/dL (2.2-4.2); Glucose 145 mg/dL (74-106); Potassium 3.8 mmol/L (3.5-5.1); Protein, Total 6.5 g/dL (6.4-8.2); Sodium Level 141 mmol/L (136-145)
[2021-12-27 06:53] LABS: Differential Comment SCANNED
[2021-12-27] MEDS: Albuterol 2.5 MG/3 ML VIAL.NEB. INHALATION ×2 (07:23→20:06)
[2021-12-27] MEDS: guaiFENesin 1,200 MG Tablet 1200 MG PO ×2 (09:27→21:09)
[2021-12-27] MEDS: Amiodarone 200 MG Tablet 100 MG PO ×2 (09:28→21:10)
[2021-12-27] MEDS: Nadolol 40 MG Tablet PO (09:29)
[2021-12-27] MEDS: Nystatin Powder 15gm Bottle 1 APPLIC TOPICAL ×2 (09:29→21:09)
[2021-12-27] MEDS: Fluticasone 0.05% 1 SPRAY NASAL.SRY NASAL (09:31)
--- NOTE | 2021-12-27 10:11 | PN.HOSP_ITS ---
Documented by User: HIRAL Pan 12/27/21 10:13 Subjective Subjective Patient seen and examined. Patient in chair no distress noted. Objective Data Objective Data Vital Signs: Vital Signs Temp Pulse Resp BP Pulse Ox O2 Del Method O2 Flow Rate 97.2 F L 82 20 H 113/63 98 Nasal Cannula 4 12/27/21 09:25 12/27/21 09:25 12/27/21 09:25 12/27/21 09:25 12/27/21 09:25 12/27/21 09:25 12/27/21 09:25 FiO2 4 12/24/21 03:35 Oxygen Flow Rate (L/min) 4 Oxygen Delivery Method Nasal Cannula Weight: 280 lb 13.903 oz Body Mass Index (BMI) 49.4 Intake & Output: Intake and Output for Last 24 Hours 12/25/21 12/26/21 12/27/21 23:59 23:59 23:59 Intake Total 1400 / 1400 1550 / 1550 50 / 50 Output Total 600 / 600 550 / 550 600 / 600 Balance 800 / 800 1000 / 1000 -550 / -550 Lab / Micro Data Result Diagrams: 12/27/21 06:10 12/27/21 06:10 Labs: Laboratory Results - last 24 hr 12/26/21 12:05: POC Glucose 200 H 12/26/21 17:00: POC Glucose 145 H 12/26/21 21:51: POC Glucose 163 H 12/27/21 06:10: WBC 4.7, RBC 3.58 L, Hgb 10.0 L, Hct 31.5 L, MCV 88.0, MCH 27.9, MCHC 31.7 L, RDW Std Deviation 50.2 H, RDW Coeff of Aniceto 15.5 H, Plt Count 220, MPV 9.1, Immature Gran % (Auto) 0.400, Neut % (Auto) 67.4, Lymph % (Auto) 10.4 L , [place] % (Auto) 11.2 H, Eos % (Auto) 10.0 H, Baso % (Auto) 0.6, Absolute Neuts (auto) 3.2, Absolute Lymphs (auto) 0.49 L, Nucleated RBC % 0, Differential Comment SCANNED 12/27/21 06:10: Sodium 141, Potassium 3.8, Chloride 105, Carbon Dioxide 33.0 H, Anion Gap 3 L, BUN 8, Creatinine 0.66, Estim Creat Clear Calc 38.44, Est GFR (MDRD) Af Amer 111, Est GFR (MDRD) Non-Af 92, BUN/Creatinine Ratio 12.0, Glucose 145 H, Calcium 9.4, Total Bilirubin 0.30, AST 15, ALT 13, Alkaline Phosphatase 97, Total Protein 6.5, Albumin 2.2 L, Globulin 4.3 H, Albumin/Globulin Ratio 0.5 L 12/27/21 06:11: POC Glucose 142 H Micro: Microbiology 12/24/21 13:26 Sputum, Expectorated/Coughed Gram Stain - Final 12/24/21 13:26 Sputum, Expectorated/Coughed Respiratory Culture - Final Pseudomonas aeroginosa Presumptive C albicans Mixed Raisa 12/19/21 09:40 Blood Culture (Wb) - Left Hand Blood Culture - Final No growth in 5 days. 12/19/21 21:45 Blood Culture (Wb) - Right Hand Blood Culture - Final No growth in 5 days. 12/19/21 20:20 Nasal Secretion SARS-CoV-2 Antigen (Rapid) - Final Physical Exam Const oriented x3 General Appearance: cooperative and comfortable Orientation / Consciousness: lethargic HEENT head/scalp atraumatic and moist oral mucous membranes Eyes conjunctivae normal and no scleral icterus Neck no lymphadenopathy and supple Resp normal respiratory effort and clear to auscultation bilaterally Resp Narrative: Diffusely diminished but no adventitious sounds noted today, remains on 4 L nasal cannula Cardio regular rate, regular rhythm, S1 normal heart sound and S2 normal heart sound GI normal to inspection, nondistended, normoactive bowel sounds, soft to palpation and non-tender GI Narrative: Large abdomen with pannus Extremity normal to inspection Extremity Narrative: Ecchymosis left upper extremity where we attempted to access her port unsuccessfully, appears to be healing, soft General Extremity: edema bilateral lower extremity Details: moderate Skin Skin Narrative: Midline left upper extremity with large ecchymotic area from previous med port access attempt-appears to be healing Neuro oriented x3, moves all extremities, no focal motor deficits and no sensory deficits noted Psych affect normal Assessment & Plan Assessment/Plan (1) Recurrent pleural effusion on right: PLAN: Plan 1.? Recurrent right pleural effusion, suspected Pseudomonas pneumonia versus aspiration -recent thoracentesis 12/15/2021.? -General surgery consulted, plan for Pleurx on 12/29/2021 -Awaiting follow-up sputum culture as previous culture grew Pseudomonas. -Continue IV Zosyn. ID following -Speech therapy following, continue aspiration precautions 2.? Recent onset paroxysmal atrial fibrillation with RVR -Rate controlled.? -Continue amiodarone, nadolol.? -Eliquis on hold for Pleurx catheter. 3. Stage III lung cancer -Follows with Dr. Crouch. Previously completed chemo and radiation.? -On immunotherapy. 4. Chronic hypoxic respiratory failure secondary to chronic asthma, lung cancer with recurrent pleural effusion -currently on 4L n/c which is baseline -Albuterol aerosol. -BiPAP at at bedtime and with naps 5. Type 2 diabetes mellitus -Accu-Cheks with sliding scale insulin. 6. Hypertension -stable, continue current regimen. 7. Anxiety/depression/ADD -on Paxil, methylphenidate. 8. DORY -reports noncompliance with CPAP. 9. Morbid obesity -encouraged diet and lifestyle modifications. 10.? Debility -recently discharged 12/17/2021 and refused SNF.? Now amendable. SNF pending acceptance. DVT prophylaxis-[facility] Allen This patient was seen by Vivian Olson NP-C under the supervision of Dr. Abreu. 12 minutes spent in clinical coordination of patient's plan of care. Documented by User: Dr. Jamee Abreu MD 12/27/21 12:38 Objective Data Lab / Micro Data Result Diagrams: 12/27/21 06:10 12/27/21 06:10 Assessment & Plan Assessment/Plan (1) Recurrent pleural effusion on right: Charges/Coding Addendum Addendum: This patient was seen in conjunction with Justice Olson NP.? I have independently interviewed and examined the patient and reviewed pertinent historical, labora tory, and other data. I have reviewed her note and concur with her documentation Patient was seen and examined.?No acute overnight. Awaiting Pleurx catheter placement Physical Exam: Gen: Comfortable, not pale, not jaundiced CVS:HS I +II, regular, no murmurs RESP: Diminished at lung bases GI: BS present and normal, soft, nontender, no palpable organs EXT:No edema ASSESSMENT: 1.? Recurrent right pleural effusion 2.? Mild oropharyngeal dysphagia 3.? Paroxysmal atrial fibrillation 4.? Stage IIIc 5.? Chronic hypoxic respiratory failure 6.? Type II DM 7.? Hypertension 8.? Anxiety/depression 9.? DORY 10. Morbid obesity Plan: Continue IV Zosyn, ID and general surgery following Pleurx catheter planned for Wednesday Encourage use of incentive spirometer Encourage ambulation out of bed Discharge planning to nursing home facility Time spent coordinating patient's care, discussing with general surgery, and nursin minutes Visit Charges Inpatient E&M: 48140 Subs Hosp L2
[2021-12-27 12:46] LABS: Bedside Glucose 143 mg/dL (74-106)
[2021-12-27] MEDS: Insulin Lispro 100 UNIT/ML INSULN.PEN SC ×2 (16:46→21:20)
[2021-12-27 17:16] LABS: Bedside Glucose 224 mg/dL (74-106)
[2021-12-27 22:30] LABS: Bedside Glucose 162 mg/dL (74-106)
--- NOTE | 2021-12-27 23:45 | NURSING ---
circuit breaker mechanic asked rn to see pt at pts request, upon entering room pt asked to sit up assisted to do this, pt had removed her trilogy and had nasal cannula on @ 4L per her home regimen, was diaphoretic and sob called cps, asked circuit breaker mechanic to get conveyor line battery charger and mask as pt pox 79% went up to 86% but couldnt maintain sats due to tachypnea. placed pt back in bed.
[2021-12-28] VITALS (25 sets, daily range): BP systolic 111–172; BP diastolic 64–93; PULSE 70–94; RESP 12–29; TEMP 36.1–37; O2SAT 90–99
--- NOTE | 2021-12-28 00:02 | PCM.PN.BLA ---
Progress Note Rapid response was called because of respiratory distress. Patient was placed on BiPAP. Lung sounds rhonchi. Given Solu-Medrol 125 mg x 1. Placed on scheduled DuoNeb. Chest x-ray ordered.
[2021-12-28] MEDS: Ipratropium/Albuterol Sulfate 3 ML AMPUL.NEB INHALATION ×5 (00:08→19:35)
[2021-12-28] MEDS: MethylPREDNISolone 125 MG/2 ML Vial IV (00:08)
[2021-12-28] MEDS: 0.9% Saline Lock 10 ML Syringe IV (00:08)
[2021-12-28 00:26] LABS: Blood Gas Specimen Type VEN; VBG BASE EXCESS 5 mmol/L (-1.0-3.5); VBG Bicarbonate 32 mmol/L (22-26); VBG PO2 75 mmHg (25-40); VBG SO2 91 % (50-70); VBG TCO2 34 mmol/L (23-33); VBG pCO2 74.4 mmHg (41-51); VBG pH 7.24 (7.32-7.42)
[2021-12-28 00:29] LABS: Absolute Lymphocyte Count 1.16 X10^3/uL (0.83-4.51); Absolute Neutrophil Count 5.6 X10^3/uL (2.0-7.7); Basophil# 0.06 X10^3/uL; Basophil% 0.7 % (0-1); Eosinophil# 0.78 X10^3/uL; Eosinophils% 9.1 % (0-5); Hematocrit 37.6 % (37-47); Hemoglobin 11.6 g/dL (12.0-15.0); Lymphocyte # 1.16 X10^3/ul (0.83-4.51); Lymphocyte % 13.6 % (19-41); Mean Corp Hgb Conc 30.9 g/dL (32-36); Mean Corpuscular Hgb 27.2 pg (27.0-32.0); Mean Corpuscular Volume 88.1 fL (81-99); Mean Platelet Vol. 9.3 fl (6.2-12.0); Monocyte# 0.86 X10^3/uL; Monocyte% 10.1 % (0-10); NRBC Flagged by Analyzer 0 % (0-5); Neutrophil # 5.57 X10^3/uL (2.7-7.7); Neutrophil % 65.1 % (47-70); Platelet Count 362 K/mm3 (150-450); RBC Distribution Width CV 15.7 % (11.6-14.6); RBC Distribution Width SD 50.2 fl (35.1-43.9); Red Blood Count 4.27 M/mm3 (4.2-5.4); White Blood Count 8.6 K/mm3 (4.4-11.0)
[2021-12-28 00:34] LABS: Anion Gap 6 (5-15); BUN 8 mg/dL (7-18); Calcium,Total 9.8 mg/dL (8.5-10.1); Chloride 103 mmol/L (98-107); EST Glomerular Filtration Rate 74 mL/min (>60); Est Glom Filt Rate - Afr Amer 90 mL/min (>60); Estimated Creatinine Clearance 48.06 ml/min; Glucose 216 mg/dL (74-106); Potassium 4.2 mmol/L (3.5-5.1); Sodium Level 139 mmol/L (136-145); Troponin-I HS 11 pg/mL (3.0-54.0)
--- NOTE | 2021-12-28 00:35 | NURSING ---
at 2350 customer marketing intern called learning development specialist for resp distress, cps placed pt on [facility] bipap at 2354 and @ 2355 p[address] 99%. Dr Cabrera here and gave new orders at 2356. Pt mainting sats states she feels better. pt hob locked as she has been refusing to sleep with her head up. pt agreeable. on continuous pulse ox. Pt asked not to remove her bipap pt states she will leave on. explained to pt not to drink or eat with bipap on fluids moved out of pt reach, asked her to use call light if needs fluids or mouth care.
[2021-12-28 00:36] LABS: Bedside Glucose 148 mg/dL (74-106)
[2021-12-28 00:55] LABS: BNP,B-Type NATRIURETIC PEPTIDE 230.6 pg/mL (0-100)
--- NOTE | 2021-12-28 01:37 | CPS ---
Unable to obtain ABG, VBG was ran. Dr. Cabrera aware.
--- NOTE | 2021-12-28 01:52 | NURSING ---
dtr called back in and nurse able to help answer pt phone so dtr could talk to pt on phone. rn talked to dtr after she talked to her mother and has no further questions at this time.
[2021-12-28 05:01] LABS: Absolute Lymphocyte Count 0.42 X10^3/uL (0.83-4.51); Absolute Neutrophil Count 7.7 X10^3/uL (2.0-7.7); Basophil# 0.04 X10^3/uL; Basophil% 0.5 % (0-1); Eosinophil# 0.09 X10^3/uL; Eosinophils% 1.1 % (0-5); Lymphocyte # 0.42 X10^3/ul (0.83-4.51); Mean Corp Hgb Conc 31.4 g/dL (32-36); Mean Corpuscular Hgb 27.4 pg (27.0-32.0); Mean Corpuscular Volume 87.1 fL (81-99); Mean Platelet Vol. 9.3 fl (6.2-12.0); Monocyte# 0.13 X10^3/uL; Monocyte% 1.5 % (0-10); NRBC Flagged by Analyzer 0 % (0-5); Neutrophil # 7.72 X10^3/uL (2.7-7.7); Neutrophil % 91.5 % (47-70); POSITIVE DIFFERENTIAL YES; Platelet Count 263 K/mm3 (150-450); RBC Distribution Width CV 15.5 % (11.6-14.6); RBC Distribution Width SD 49.5 fl (35.1-43.9); Red Blood Count 4.02 M/mm3 (4.2-5.4); White Blood Count 8.4 K/mm3 (4.4-11.0)
[2021-12-28] MEDS: Enoxaparin 40 MG/0.4 ML Syringe SC (05:11)
[2021-12-28] MEDS: hydrALAZINE 10 MG Tablet PO ×3 (05:12→22:10)
[2021-12-28 05:24] LABS: ALB/GLOB Ratio 0.5 RATIO (0.9-2.4); AST(SGOT) 19 U/L (15-37); Alanine Aminotransfer ALT/SGPT 15 U/L (13-56); Albumin, Serum 2.4 g/dL (3.2-5.0); Alkaline Phosphatase 107 U/L (45-117); Anion Gap 5 (5-15); BUN 9 mg/dL (7-18); BUN/Creat Ratio 13.2 RATIO (10-20); Chloride 102 mmol/L (98-107); Creatinine, Serum 0.68 mg/dL (0.55-1.02); EST Glomerular Filtration Rate 90 mL/min (>60); Est Glom Filt Rate - Afr Amer 108 mL/min (>60); Estimated Creatinine Clearance 38.44 ml/min; Globulin 4.9 g/dL (2.2-4.2); Glucose 215 mg/dL (74-106); Potassium 4.4 mmol/L (3.5-5.1); Protein, Total 7.3 g/dL (6.4-8.2); Sodium Level 139 mmol/L (136-145)
[2021-12-28 05:27] LABS: Differential Indicated SCAN CRITERIA MET
[2021-12-28 06:24] LABS: Differential Comment SCANNED
[2021-12-28] MEDS: Insulin Lispro 100 UNIT/ML INSULN.PEN SC ×4 (06:47→22:14)
[2021-12-28 07:15] LABS: Bedside Glucose 205 mg/dL (74-106)
[2021-12-28] MEDS: Nadolol 40 MG Tablet PO (09:24)
[2021-12-28] MEDS: Amiodarone 200 MG Tablet 100 MG PO ×2 (09:24→22:09)
[2021-12-28] MEDS: guaiFENesin 1,200 MG Tablet 1200 MG PO ×2 (09:25→22:10)
[2021-12-28] MEDS: Fluticasone 0.05% 1 SPRAY NASAL.SRY NASAL (09:28)
[2021-12-28] MEDS: Nystatin Powder 15gm Bottle 1 APPLIC TOPICAL (09:29)
[2021-12-28] MEDS: Furosemide 40 MG/4 ML Vial IV (10:09)
--- NOTE | 2021-12-28 11:13 | PCM.PN.HOSP ---
Documented by User: Vivian Olson NP-C 12/28/21 11:18 Subjective Subjective Patient seen and examined. Patient sitting in bed, BiPAP on. Daughter at bedside here from [place]. Plan of care discussed with her and she is agreeable to plan. Objective Data Objective Data Vital Signs: Vital Signs Temp Pulse Resp BP Pulse Ox O2 Del Method O2 Flow Rate 97.8 F 78 20 H 140/64 H 98 Bi-pap 4 12/28/21 09:16 12/28/21 10:43 12/28/21 09:16 12/28/21 09:16 12/28/21 09:16 12/28/21 09:16 12/27/21 23:45 FiO2 35 12/28/21 09:16 Oxygen Flow Rate (L/min) 4 Oxygen Delivery Method Bi-pap Weight: 279 lb 5.211 oz Body Mass Index (BMI) 49.4 Intake & Output: Intake and Output for Last 24 Hours 12/26/21 12/27/21 12/28/21 23:59 23:59 23:59 Intake Total 1550 / 1550 880 / 880 200 / 200 Output Total 550 / 550 600 / 600 500 / 500 Balance 1000 / 1000 280 / 280 -300 / -300 Lab / Micro Data Result Diagrams: 12/28/21 04:35 12/28/21 04:35 Labs: Laboratory Results - last 24 hr 12/27/21 11:45: POC Glucose 143 H 12/27/21 16:44: POC Glucose 224 H 12/27/21 21:18: POC Glucose 162 H 12/27/21 23:50: POC Glucose 148 H 12/28/21 00:10: WBC 8.6, RBC 4.27, Hgb 11.6 L, Hct 37.6, MCV 88.1, MCH 27.2, MCHC 30.9 L, RDW Std Deviation 50.2 H, RDW Coeff of Aniceto 15.7 H, Plt Count 362, MPV 9.3, Immature Gran % (Auto) 1.400 H, Neut % (Auto) 65.1, Lymph % (Auto) 13.6 L, Addison % (Auto) 10.1 H, Eos % (Auto) 9.1 H, Baso % (Auto) 0.7, Absolute Neuts (auto) 5.6, Absolute Lymphs (auto) 1.16, Nucleated RBC % 0 12/28/21 00:10: Sodium 139, Potassium 4.2, Chloride 103, Carbon Dioxide 30.0, Anion Gap 6, BUN 8, Creatinine 0.80, Estim Creat Clear Calc 48.06, Est GFR (MDRD) Af Amer 90, Est GFR (MDRD) Non-Af 74, BUN/Creatinine Ratio 10.0, Glucose 216 H, Calcium 9.8, Troponin I High Sens 11 12/28/21 00:10: B-Natriuretic Peptide 230.6 H 12/28/21 04:35: WBC 8.4, RBC 4.02 L, Hgb 11.0 L, Hct 35.0 L, MCV 87.1, MCH 27.4, MCHC 31.4 L, RDW Std Deviation 49.5 H, RDW Coeff of Aniceto 15.5 H, Plt Count 263, MPV 9.3, Immature Gran % (Auto) 0.400, Neut % (Auto) 91.5 H, Lymph % (Auto) 5.0 L, Addison % (Auto) 1.5, Eos % (Auto) 1.1, Baso % (Auto) 0.5, Absolute Neuts (auto) 7.7, Absolute Lymphs (auto) 0.42 L, Nucleated RBC % 0, Differential Comment SCANNED 12/28/21 04:35: Sodium 139, Potassium 4.4, Chloride 102, Carbon Dioxide 32.0, Anion Gap 5, BUN 9, Creatinine 0.68, Estim Creat Clear Calc 38.44, Est GFR (MDRD) Af Amer 108, Est GFR (MDRD) Non-Af 90, BUN/Creatinine Ratio 13.2, Glucose 215 H, Calcium 10.0, Total Bilirubin 0.40, AST 19, ALT 15, Alkaline Phosphatase 107, Total Protein 7.3, Albumin 2.4 L, Globulin 4.9 H, Albumin/Globulin Ratio 0.5 L 12/28/21 04:35: B-Natriuretic Peptide 182.0 H 12/28/21 06:45: POC Glucose 205 H Micro: Microbiology 12/24/21 13:26 Sputum, Expectorated/Coughed Gram Stain - Final 12/24/21 13:26 Sputum, Expectorated/Coughed Respiratory Culture - Final Pseudomonas aeroginosa Presumptive C albicans Mixed Raisa 12/19/21 09:40 Blood Culture (Wb) - Left Hand Blood Culture - Final No growth in 5 days. 12/19/21 21:45 Blood Culture (Wb) - Right Hand Blood Culture - Final No growth in 5 days. 12/19/21 20:20 Nasal Secretion SARS-CoV-2 Antigen (Rapid) - Final ABG Data ABG results: ABG 12/28/21 00:17 Specimen Type NANCY VBG pH 7.24 L VBG pO2 75 H VBG HCO3 32 H VBG Total CO2 34 H VBG O2 Sat (Calc) 91 H VBG Base Excess 5 H POC Mix VBG pCO2 Pt Tmp 74.4 H* Crit Call To/Read Back Yes Radiography Diagnostic Testing: Radiology Impression Chest X-Ray 12/27/21 00:15 IMPRESSION: 1. Increased right upper lobe opacity, most likely represents upper lobe atelectasis, cannot exclude superimposed infection. 2. Patchy right basal opacities, may represent compressive atelectasis or infection. 3. Small right pleural effusion. Electronically Signed: Jonathon Stringer MD at 1:02 EDT , Physical Exam Const oriented x3 General Appearance: cooperative and comfortable Orientation / Consciousness: lethargic HEENT head/scalp atraumatic and moist oral mucous membranes Eyes conjunctivae normal and no scleral icterus Neck no lymphadenopathy and supple Resp normal respiratory effort and clear to auscultation bilaterally Cardio regular rate, regular rhythm, S1 normal heart sound and S2 normal heart sound GI normal to inspection, nondistended, normoactive bowel sounds, soft to palpation and non-tender GI Narrative: Large abdomen with pannus Extremity normal to inspection Extremity Narrative: Ecchymosis left upper extremity where we attempted to access her port unsuccessfully, appears to be healing, soft General Extremity: edema bilateral lower extremity Details: moderate Skin Skin Narrative: Midline left upper extremity with large ecchymotic area from previous med port access attempt-appears to be healing Neuro oriented x3, moves all extremities, no focal motor deficits and no sensory deficits noted Psych affect normal Assessment & Plan Assessment/Plan (1) Recurrent pleural effusion on right: PLAN: Plan 1.? Recurrent right pleural effusion, suspected Pseudomonas pneumonia versus aspiration -recent thoracentesis 12/15/2021.? -General surgery consulted, plan for Pleurx on 12/29/2021 -Awaiting follow-up sputum culture as previous culture grew Pseudomonas. -Continue IV Zosyn. ID following -Speech therapy following, continue aspiration precautions 2.? Recent onset paroxysmal atrial fibrillation with RVR -Rate controlled.? -Continue amiodarone, nadolol.? -Eliquis on hold for Pleurx catheter. 3. Stage III lung cancer -Follows with Dr. Crouch. Previously completed chemo and radiation.? -On immunotherapy. 4. Chronic hypoxic respiratory failure secondary to chronic asthma, lung cancer with recurrent pleural effusion -currently on bipap, 4L n/c is baseline -Albuterol aerosol. -BiPAP at at bedtime and with naps 5. Type 2 diabetes mellitus -Accu-Cheks with sliding scale insulin. 6. Hypertension -stable, continue current regimen. 7. Anxiety/depression/ADD -on Paxil, methylphenidate. 8. DORY -reports noncompliance with CPAP. 9. Morbid obesity -encouraged diet and lifestyle modifications. 10.? Debility -recently discharged 12/17/2021 and refused SNF.? Now amendable. SNF pending acceptance. DVT prophylaxis-Patricia Allen This patient was seen by Vivian Olson NP-C under the supervision of Dr. Abreu. 12 minutes spent in clinical coordination of patient's plan of care. Documented by User: Dr. Jamee Abreu MD 12/28/21 13:56 Objective Data Lab / Micro Data Result Diagrams: 12/28/21 04:35 12/28/21 04:35 Assessment & Plan Assessment/Plan (1) Recurrent pleural effusion on right: Charges/Coding Addendum Addendum: This patient was seen in conjunction with Justice Olson NP.? I have independently interviewed and examined the patient and reviewed pertinent historical, laboratory, and other data. I have reviewed her note and concur with her documentation Patient was seen and examined. Overnight, a rapid response was called for patient with respiratory distress. Chest x-ray showed increased right upper lobe opacity likely secondary to atelectasis, patchy right basilar opacity secondary to atelectasis. Patient did well with BiPAP. She did not want to be intubated yesterday. Upon further discussion this morning, patient with her daughter at the bedside insists on being full code. She feels tired. Physical Exam: Gen: Comfortable, not pale, not jaundiced CVS:HS I +II, regular, no murmurs RESP: Diminished at lung bases GI: BS present and normal, soft, nontender, no palpable organs EXT:No edema ASSESSMENT: 1.? Recurrent right pleural effusion 2.? Mild oropharyngeal dysphagia 3.? Paroxysmal atrial fibrillation 4.?Chronic hypoxic respiratory failure 5.? Type II DM 6.? Hypertension 7.? Anxiety/depression 8.? DORY 9. Morbid obesity Plan: Continue with BiPAP nightly and as needed Trial of Lasix 40 mg IV x1 continue IV Zosyn, ID and general surgery following Pleurx catheter planned for Wednesday Encourage use of incentive spirometer Encourage ambulation out of bed Discharge planning to long-term facility Time spent coordinating patient's care, discussing with nursing and family at the bedside:30 minutes Visit Charges Inpatient E&M: 46312 [facility] [place] Hosp L3
[2021-12-28 11:36] LABS: Bedside Glucose 284 mg/dL (74-106)
[2021-12-28 16:30] LABS: Bedside Glucose 271 mg/dL (74-106)
[2021-12-28 22:51] LABS: Bedside Glucose 181 mg/dL (74-106)
[2021-12-29] VITALS (32 sets, daily range): BP systolic 127–170; BP diastolic 51–85; PULSE 57–76; RESP 12–24; TEMP 36.2–36.9; O2SAT 94–100; BMI 50.8
[2021-12-29] MEDS: Insulin Lispro 100 UNIT/ML INSULN.PEN SC (06:29)
[2021-12-29] MEDS: hydrALAZINE 10 MG Tablet PO ×3 (06:29→22:55)
[2021-12-29] MEDS: Ipratropium/Albuterol Sulfate 3 ML AMPUL.NEB INHALATION ×4 (06:53→18:37)
[2021-12-29 06:54] LABS: Absolute Lymphocyte Count 0.66 X10^3/uL (0.83-4.51); Basophil# 0.02 X10^3/uL; Basophil% 0.3 % (0-1); Eosinophil# 0.09 X10^3/uL; Eosinophils% 1.2 % (0-5); Hematocrit 32.1 % (37-47); Hemoglobin 9.9 g/dL (12.0-15.0); Lymphocyte # 0.66 X10^3/ul (0.83-4.51); Lymphocyte % 9.1 % (19-41); Mean Corp Hgb Conc 30.8 g/dL (32-36); Mean Corpuscular Hgb 27.3 pg (27.0-32.0); Mean Corpuscular Volume 88.4 fL (81-99); Mean Platelet Vol. 9.3 fl (6.2-12.0); Monocyte# 0.48 X10^3/uL; Monocyte% 6.6 % (0-10); NRBC Flagged by Analyzer 0 % (0-5); Neutrophil # 5.97 X10^3/uL (2.7-7.7); Neutrophil % 82.2 % (47-70); Platelet Count 227 K/mm3 (150-450); RBC Distribution Width CV 15.6 % (11.6-14.6); RBC Distribution Width SD 50.2 fl (35.1-43.9); Red Blood Count 3.63 M/mm3 (4.2-5.4); White Blood Count 7.3 K/mm3 (4.4-11.0)
[2021-12-29 07:03] LABS: International Normalized Ratio 1.1; Prothrombin Time (Protime)PT. 14.1 SECONDS (11.7-14.9)
[2021-12-29 07:05] LABS: Bedside Glucose 164 mg/dL (74-106)
[2021-12-29 07:21] LABS: Hemoglobin A1c 6.9 % (3.8-5.6)
[2021-12-29 07:27] LABS: ALB/GLOB Ratio 0.5 RATIO (0.9-2.4); AST(SGOT) 15 U/L (15-37); Alanine Aminotransfer ALT/SGPT 12 U/L (13-56); Albumin, Serum 2.2 g/dL (3.2-5.0); Alkaline Phosphatase 87 U/L (45-117); Anion Gap 4 (5-15); BUN 22 mg/dL (7-18); BUN/Creat Ratio 30.2 RATIO (10-20); Calcium,Total 9.7 mg/dL (8.5-10.1); Chloride 102 mmol/L (98-107); Creatinine, Serum 0.73 mg/dL (0.55-1.02); EST Glomerular Filtration Rate 83 mL/min (>60); Est Glom Filt Rate - Afr Amer 100 mL/min (>60); Estimated Creatinine Clearance 38.44 ml/min; Globulin 4.5 g/dL (2.2-4.2); Glucose 166 mg/dL (74-106); Potassium 3.6 mmol/L (3.5-5.1); Protein, Total 6.7 g/dL (6.4-8.2); Sodium Level 140 mmol/L (136-145)
--- NOTE | 2021-12-29 08:51 | CASEMGMT ---
Discharge Councilperson Cathy bustos horticultural nursery assistant faxed over updates on patient to [facility]. Plan: [facility], waiting pre-cert. Cathy Avitia Discharge Councilperson
--- NOTE | 2021-12-29 09:48 | PN.SURG_ITS ---
Subjective Subjective Patient was seen and examined during AM rounds and then again later in the morning. Her daughter from out of town is in the room and provides a history from this weekend. She states that her mother experienced some sudden severe shortness of breath about a day ago that responded very well to Lasix. She states thereafter she was able to get into a chair and oxygenate well with just a simple nasal cannula. She questions whether or not this is a possibility ongoing. Objective Data Objective Data Vital Signs: Vital Signs Temp Pulse Resp BP Pulse Ox O2 Del Method O2 Flow Rate 98.4 F 66 18 142/66 H 94 Nasal Cannula 4 12/29/21 06:23 12/29/21 06:59 12/29/21 06:53 12/29/21 06:29 12/29/21 06:53 12/29/21 09:00 12/29/21 09:00 FiO2 30 12/29/21 06:53 Oxygen Flow Rate (L/min) 4 Oxygen Delivery Method Nasal Cannula Weight: 287 lb 4.197 oz Body Mass Index (BMI) 49.4 Intake & Output: Intake and Output for Last 24 Hours 12/27/21 12/28/21 12/29/21 23:59 23:59 23:59 Intake Total 880 / 880 850 / 1150 350 / 350 Output Total 600 / 600 1350 / 1450 300 / 300 Balance 280 / 280 -500 / -300 50 / 50 Lab / Micro Data Result Diagrams: 12/29/21 06:38 12/29/21 06:38 Labs: Laboratory Results - last 24 hr 12/28/21 04:35: B-Natriuretic Peptide 182.0 H 12/28/21 11:06: POC Glucose 284 H 12/28/21 16:08: POC Glucose 271 H 12/28/21 22:06: POC Glucose 181 H 12/29/21 06:26: POC Glucose 164 H 12/29/21 06:38: WBC 7.3, RBC 3.63 L, Hgb 9.9 L, Hct 32.1 L, MCV 88.4, MCH 27.3, MCHC 30.8 L, RDW Std Deviation 50.2 H, RDW Coeff of Aniceto 15.6 H, Plt Count 227, MPV 9.3, Immature Gran % (Auto) 0.600, Neut % (Auto) 82.2 H, Lymph % (Auto) 9.1 L, Crisp % (Auto) 6.6, Eos % (Auto) 1.2, Baso % (Auto) 0.3, Absolute Neuts (auto) 6.0, Absolute Lymphs (auto) 0.66 L, Nucleated RBC % 0 12/29/21 06:38: Sodium 140, Potassium 3.6, Chloride 102, Carbon Dioxide 34.0 H, Anion Gap 4 L, BUN 22 H, Creatinine 0.73, Estim Creat Clear Calc 38.44, Est GFR (MDRD) Af Amer 100, Est GFR (MDRD) Non-Af 83, BUN/Creatinine Ratio 30.2 H, Glucose 166 H, Calcium 9.7, Total Bilirubin 0.30, AST 15, ALT 12 L, Alkaline Phosphatase 87, Total Protein 6.7, Albumin 2.2 L, Globulin 4.5 H, Albumin/Globulin Ratio 0.5 L 12/29/21 06:38: PT 14.1, INR 1.1 12/29/21 06:38: Hemoglobin A1c 6.9 H Micro: Microbiology 12/24/21 13:26 Sputum, Expectorated/Coughed Gram Stain - Final 12/24/21 13:26 Sputum, Expectorated/Coughed Respiratory Culture - Final Pseudomonas aeroginosa Presumptive C albicans Mixed Raisa 12/19/21 09:40 Blood Culture (Wb) - Left Hand Blood Culture - Final No growth in 5 days. 12/19/21 21:45 Blood Culture (Wb) - Right Hand Blood Culture - Final No growth in 5 days. 12/19/21 20:20 Nasal Secretion SARS-CoV-2 Antigen (Rapid) - Final Physical Exam Const oriented x3 and no apparent distress Constitutional Narrative: Patient was initially on her CPAP machine sleeping when we arrived to the room, but thereafter transition to a nasal cannula and did not appear to have any significant respiratory distress. Resp normal respiratory effort Assessment & Plan Assessment/Plan (1) Recurrent pleural effusion on right: (2) Sputum culture positive for Pseudomonas: PLAN: Plan Patient with recurrent pleural effusions that are believed to be related to her recurrent lung cancer. Currently scheduled for Pleurx catheter placement later today. We have been awaiting the results of a sputum culture collected last week and this has been finalized to include Pseudomonas and C albicans. I shared with patient and her daughter my concerns for placing a permanent Pleurx catheter in the potentially infected field to include perpetuation of infection and possible catheter clogging. I suggested they consider a thoracic surgery evaluation for possible use of lytics and DNase therapy. However, both patient and her daughter seem reluctant to this course so they then requested that we involve the other members of her care team. Unfortunately patient's primary composite bond worker is out of town, but in talking with hospitalist service and infectious disease, they are convinced patient has colonization of Pseudomonas and this should not preclude catheter placement. I shared this opinion with patient and her daughter and they wish to proceed as originally planned. They are accepting of potentially slightly increased risk with the procedure and deny any further questions. Charges/Coding Visit Charges Inpatient E&M: 94145 Subs Hosp L2
[2021-12-29] MEDS: Fluticasone 0.05% 1 SPRAY NASAL.SRY NASAL (09:59)
[2021-12-29] MEDS: Nystatin Powder 15gm Bottle 1 APPLIC TOPICAL ×2 (09:59→22:59)
[2021-12-29] MEDS: Nadolol 40 MG Tablet PO (10:00)
[2021-12-29] MEDS: Amiodarone 200 MG Tablet 100 MG PO ×2 (10:00→22:55)
--- NOTE | 2021-12-29 10:13 | CASEMGMT ---
Social Work ROMI received an email on Wednesday from pt's dgt Santa that pt would like to go to [facility] at discharge. SW placed call to [facility] this morning and requested precert be started. Melisa confirms that she will start precert. [employer] credentialing assistant, will fax updated clinicals. ROMI met with pt, pt's dgt Roxi and pt's son and in pt's room. ROMI updated that precert has been started at [facility]. All parties agreeable to discharge plan. Plan: [facility], pending insurance precert MICHAEL Alanis
--- NOTE | 2021-12-29 10:21 | PCM.PN.HOSP ---
Documented by User: Vivian Olson NP-C 12/29/21 10:28 Subjective Subjective Seen and examined. Patient's daughter at bedside discussed plan of care with patient and daughter. Dr. Medina at bedside as well to discuss surgical risks for Pleurx cath placement later today. Objective Data Objective Data Vital Signs: Vital Signs Temp Pulse Resp BP Pulse Ox O2 Del Method O2 Flow Rate 98.2 F 69 20 H 164/72 H 99 Nasal Cannula 4 12/29/21 09:56 12/29/21 09:56 12/29/21 09:56 12/29/21 09:56 12/29/21 09:56 12/29/21 09:56 12/29/21 09:56 FiO2 30 12/29/21 06:53 Oxygen Flow Rate (L/min) 4 Oxygen Delivery Method Nasal Cannula Weight: 287 lb 4.197 oz Body Mass Index (BMI) 49.4 Intake & Output: Intake and Output for Last 24 Hours 12/27/21 12/28/21 12/29/21 23:59 23:59 23:59 Intake Total 880 / 880 850 / 1150 350 / 350 Output Total 600 / 600 1350 / 1450 300 / 300 Balance 280 / 280 -500 / -300 50 / 50 Lab / Micro Data Result Diagrams: 12/29/21 06:38 12/29/21 06:38 Labs: Laboratory Results - last 24 hr 12/28/21 04:35: B-Natriuretic Peptide 182.0 H 12/28/21 11:06: POC Glucose 284 H 12/28/21 16:08: POC Glucose 271 H 12/28/21 22:06: POC Glucose 181 H 12/29/21 06:26: POC Glucose 164 H 12/29/21 06:38: WBC 7.3, RBC 3.63 L, Hgb 9.9 L, Hct 32.1 L, MCV 88.4, MCH 27.3, MCHC 30.8 L, RDW Std Deviation 50.2 H, RDW Coeff of Aniceto 15.6 H, Plt Count 227, MPV 9.3, Immature Gran % (Auto) 0.600, Neut % (Auto) 82.2 H, Lymph % (Auto) 9.1 L, Weston % (Auto) 6.6, Eos % (Auto) 1.2, Baso % (Auto) 0.3, Absolute Neuts (auto) 6.0, Absolute Lymphs (auto) 0.66 L, Nucleated RBC % 0 12/29/21 06:38: Sodium 140, Potassium 3.6, Chloride 102, Carbon Dioxide 34.0 H, Anion Gap 4 L, BUN 22 H, Creatinine 0.73, Estim Creat Clear Calc 38.44, Est GFR (MDRD) Af Amer 100, Est GFR (MDRD) Non-Af 83, BUN/Creatinine Ratio 30.2 H, Glucose 166 H, Calcium 9.7, Total Bilirubin 0.30, AST 15, ALT 12 L, Alkaline Phosphatase 87, Total Protein 6.7, Albumin 2.2 L, Globulin 4.5 H, Albumin/Globulin Ratio 0.5 L 12/29/21 06:38: PT 14.1, INR 1.1 12/29/21 06:38: Hemoglobin A1c 6.9 H Micro: Microbiology 12/24/21 13:26 Sputum, Expectorated/Coughed Gram Stain - Final 12/24/21 13:26 Sputum, Expectorated/Coughed Respiratory Culture - Final Pseudomonas aeroginosa Presumptive C albicans Mixed Raisa 12/19/21 09:40 Blood Culture (Wb) - Left Hand Blood Culture - Final No growth in 5 days. 12/19/21 21:45 Blood Culture (Wb) - Right Hand Blood Culture - Final No growth in 5 days. 12/19/21 20:20 Nasal Secretion SARS-CoV-2 Antigen (Rapid) - Final Physical Exam Const oriented x3 General Appearance: cooperative and comfortable Orientation / Consciousness: lethargic HEENT head/scalp atraumatic and moist oral mucous membranes Eyes conjunctivae normal and no scleral icterus Neck no lymphadenopathy and supple Resp normal respiratory effort and clear to auscultation bilaterally Resp Narrative: Diffusely diminished but no adventitious sounds noted today, remains on 4 L nasal cannula Cardio regular rate, regular rhythm, S1 normal heart sound and S2 normal heart sound GI normal to inspection, nondistended, normoactive bowel sounds, soft to palpation and non-tender GI Narrative: Large abdomen with pannus Extremity normal to inspection Extremity Narrative: Ecchymosis left upper extremity where we attempted to access her port unsuccessfully, appears to be healing, soft General Extremity: edema bilateral lower extremity Details: moderate Skin Skin Narrative: Midline left upper extremity with large ecchymotic area from previous med port access attempt-appears to be healing Neuro oriented x3, moves all extremities, no focal motor deficits and no sensory deficits noted Psych affect normal Assessment & Plan Assessment/Plan (1) Recurrent pleural effusion on right: PLAN: Plan 1.? Recurrent right pleural effusion, suspected Pseudomonas pneumonia versus aspiration -recent thoracentesis 12/15/2021.? -Patient going for Pleurx cath placement at 1230 today -sputum positive pseudomonas, suspect colonization as patients sputum is chronically positive -Continue IV Zosyn. ID following -Speech therapy following, continue aspiration precautions 2.? Recent onset paroxysmal atrial fibrillation with RVR -Rate controlled.? -Continue amiodarone, nadolol.? -Eliquis on hold for Pleurx catheter. 3. Stage III lung cancer -Follows with Dr. Crouch. Previously completed chemo and radiation.? -On immunotherapy. 4. Chronic hypoxic respiratory failure secondary to chronic asthma, lung cancer with recurrent pleural effusion -currently on bipap, 4L n/c is baseline -Albuterol aerosol. -BiPAP at at bedtime and with naps 5. Type 2 diabetes mellitus -Accu-Cheks with sliding scale insulin. 6. Hypertension -stable, continue current regimen. 7. Anxiety/depression/ADD -on Paxil, methylphenidate. 8. DORY -reports noncompliance with CPAP. 9. Morbid obesity -encouraged diet and lifestyle modifications. 10.? Debility -recently discharged 12/17/2021 and refused SNF.? Now amendable. SNF pending acceptance. DVT prophylaxis-Tiffany, Patricia held This patient was seen by Vivian Olson, CARSON-C under the supervision of Dr. Miramontes. 14 minutes spent in clinical coordination of patient's plan of care. Documented by User: Dr. Mat Miramontes, 12/29/21 20:27 Objective Data Lab / Micro Data Result Diagrams: 12/29/21 06:38 12/29/21 06:38 Assessment & Plan Assessment/Plan (1) Recurrent pleural effusion on right: Charges/Coding Addendum Addendum: Patient was seen and examined today independently of Madyson Olson, she underwent a Pleurx catheter insertion on the right today, I talked at length with infectious diseases today who felt that the patient could undergo the procedure, I also talked with general surgery who did the catheter insertion today and told them that the patient was stable for surgery. I talked at length with the patient's daughter this afternoon, I brought up the discussion concerning pleurodesis, the daughter did not indicate she has had a discussion with anybody concerning this procedure, I found out from general surgery that general surgery would actually talk to the patient's daughter about this by phone. On examination she appeared comfortable, she appears older than her stated age, she does not appear to be in any distress. Vital signs as documented. Skin warm and dry and without overt rashes. Neck without JVD, thyroid appears normal, trachea is midline, neck is supple. Lungs clear, normal air movement was noted. Heart exam notable for regular rhythm, normal sounds and absence of murmurs, rubs or gallops. Abdomen unremarkable and without evidence of organomegaly, masses, or abdominal aortic enlargement, bowel sounds are present in all 4 quadrants, no abdominal tenderness was noted. Extremities nonedematous, no cyanosis was noted, no clubbing was noted. Neuro: Cranial nerves II through XII are grossly intact, no focal motor deficits were noted, sensation to light touch and pinprick is intact, motor exam 5/5 throughout. Psych: Patient is alert and oriented x3, she does not appear anxious or depressed, she does not appear agitated. Impression: #1 recurrent right pleural effusion suspected to be secondary to poorly differentiated non-small cell lung cancer-patient now has a Pleurx catheter in place, I talked briefly with general surgery about a draining regimen for this catheter. #2 Pseudomonas pneumonia versus colonization-patient is currently receiving antibiotics per infectious diseases #3 chronic hypoxic respiratory failure-patient is currently on nasal cannula oxygen #4 type 2 diabetes-continue fingerstick blood sugars with sliding scale insulin administration #5 paroxysmal atrial fibrillation-continue current medications, patient's Eliquis is on hold due to her catheter insertion today #6 morbid obesity-complicates care, recovery, and prognosis #7 acute debility-patient is being seen by PT and OT, according to the daughter, plans are for the patient to go to an extended care facility. #8 essential hypertension-continue current medication I have reviewed Madyson Olson's progress note including her medical assessment and plan of care and with the above additions endorse it. Total clinical time spent by myself addressing patient's medical issues, reviewing the data, and collaborating with patient's care team: 30 minutes Visit Charges Inpatient E&M: 94177 Subs Hosp L3
[2021-12-29 11:30] LABS: Bedside Glucose 134 mg/dL (74-106)
[2021-12-29] MEDS: Lactated Ringers 1,000 ML 15 ML IV (12:15)
--- NOTE | 2021-12-29 12:30 | US_ITS ---
STUDY: INSERTION OF A RIGHT-SIDED PLEURX CATHETER. REASON FOR EXAM: Female, 76 years old. Pleural effusion PLEURX CATHETER PLACEMENT IN OR TECHNIQUE: Under direct sonographic guidance, the surgeon placed a Pleurx catheter into the right pleural cavity. COMPARISON: None. US/Intraoperative Ultrasound IMPRESSION: Ultrasound guided right Pleurx catheter placement. Electronically Signed: Salazar Garcia MD at 14:33 EDT ,
[2021-12-29] MEDS: Bupivacaine 0.25% 30 ML Vial (12:59)
--- NOTE | 2021-12-29 13:54 | OP.PCM_ITS ---
Report of Operation Date of Procedure: 12/29/21 Pre-Operative Diagnosis: 1. Recurrent right pleural effusion in setting of rec urrent lung cancer 2. Pseudomonas colonization Post-Operative Diagnosis: Same Surgery/Procedure Performed:: Image (ultrasound and fluoroscopy)?guided placement of right Pleurx catheter Surgeon: Manoj Medina Type of Anesthesia: MAC/Supplemental/Local Anesthesiologist: Sidney Graves Drains: 15.5 [place] Pleurx catheter Description of Procedure: After appropriate identification in the preoperative holding area patient was brought to the operating room where she was positioned supine on the operating room table. However she did not tolerate the supine position and was repositioned with her head up to optimize her respiratory status. Preoperative antibiotics were administered by anesthesia and sedation was begun. During this initial sedation, with the help of the ultrasound department, a bedside ultrasound exam of the patient's right chest wall. There is a significant pleural fluid collection at approximately 5 to 6 cm from the chest wall surface and the interspace was marked. The selected site was then sterilely prepped and draped. A formal timeout was conducted to confirm patient and procedure. Insertion site was then anesthetized with 0.25 % bupivacaine (as well as the tunneling site for a total volume of 30 mL local anesthetic). A finder needle was then placed into this interspace and while constantly aspirating I advanced the needle. Unfortunately there was not a good seal between the needle and the syringe so I aspirated air through this loose connection even as I approached the pleura. I made an attempt at inserting the needle directly where we had visualized fluid on ultrasound, but was unable to back aspirate any fluid. I then made a true incision on the skin and bluntly dissected some of the soft tissue in this location to ensure depth was not an issue and repeated this process. Still, however, I did not aspirate fluid. Therefore, I requested a linear ultrasound probe be draped and this was used to localize a fluid pocket 1 interspace above where we had originally planned. It seemed as though the fluid may have shifted during the last minute patient positioning. I also opted for a longer needle and sheath system using our micropuncture kit for vascular access. Under direct ultrasound visualization I was able to access this more cephalad fluid pocket and got return of clear yellow pleural fluid. The micro access wire was then fed into this needle and was exchanged for a standard 035 guidewire via a sheath. Wire placement was confirmed with the use of bedside fluoroscopy. The exit site for the catheter was marked 5 cm inferomedially and an incision was made approximately 2 cm in length after instilling additional local anesthetic. The 15.5 [place] PleurX catheter was connected to the tunneler and was tunneled to the insertion site. Insertion site was serially dilated and a peel-away sheath was placed. Lastly the Pleurx catheter was fed into the peel-away sheath as it was removed. Insertion site was carefully checked for any kinking and then was doubly checked with additional fluoroscopy. Satisfied with the position via this imaging, the catheter was connected to Pleur-evac box via connector tubing and started on suction. There was immediate output of 800 mL clear yellow pleural fluid. Meanwhile the catheter was tied in at the tunneling exit site using a 3-0 nylon stitch. An additional interrupted stitch was placed at the insertion site in a [id number] fashion using a 3-0 nylon. Then the site was cleaned and dried and a provided foam dressing with Tegaderm was applied. Patient was taken to PACU for ongoing recovery where a stat chest x-ray was ordered to evaluate tube placement. Grafts/Implants Used: Placement of 15.5 [place] Pleurx catheter Lot #[id number] Complications None Admit VTE Documentation VTE Mechan Device Prophylaxis: SCD's Procedures Cardiovascular CF Procedures 30xxx-32xxx: [id number] Insert pleural cath
--- NOTE | 2021-12-29 13:57 | RAD_ITS ---
STUDY: X-RAY CHEST REASON FOR EXAM: Female, 76 years old. Status post right Pleurx catheter placement. TECHNIQUE: Single AP portable view of the chest. COMPARISON: Comparison is made with prior study dated 12/28/2021. FINDINGS: A right-sided catheter is seen with the tip in the right lung base. Stable consolidation in the right upper lobe. No significant pleural effusion is seen. Normal size heart. Normal mediastinum and tanna. Normal visualized pulmonary arteries. There is atherosclerotic calcification of the aortic arch with tortuosity. There are diffuse degenerative changes of the visualized thoracic spine. Normal visualized ribs, clavicles, and shoulders. There is no demonstrated abnormality of the visualized soft tissue structures of the upper abdomen. RAD/CXR for Line Placement IMPRESSION: Status post right Pleurx catheter placement. No significant pleural effusion is seen. Persistent consolidation in the right upper lobe. Electronically Signed: Salazar Garcia MD at 15:20 EDT ,
[2021-12-29] MEDS: 0.9% Saline Lock 10 ML Syringe IV (16:11)
[2021-12-29 17:00] LABS: Bedside Glucose 115 mg/dL (74-106)
--- NOTE | 2021-12-29 18:12 | NURSING ---
Placed bipap on pt per request. Bipap 30%, RR 20, SpO2 99%. Pt resting on lt side without distress.
[2021-12-29] MEDS: guaiFENesin 1,200 MG Tablet 1200 MG PO (22:56)
[2021-12-30] VITALS (29 sets, daily range): BP systolic 107–123; BP diastolic 55–84; PULSE 62–85; RESP 12–28; TEMP 36.1–36.8; O2SAT 93–100
[2021-12-30 00:05] LABS: Bedside Glucose 125 mg/dL (74-106)
[2021-12-30] MEDS: Acetaminophen 325 MG Tablet 650 MG PO (00:54)
[2021-12-30] MEDS: Enoxaparin 40 MG/0.4 ML Syringe SC (05:50)
[2021-12-30] MEDS: Ipratropium/Albuterol Sulfate 3 ML AMPUL.NEB INHALATION ×3 (06:44→19:30)
[2021-12-30 06:50] LABS: Absolute Lymphocyte Count 0.64 X10^3/uL (0.83-4.51); Absolute Neutrophil Count 4.6 X10^3/uL (2.0-7.7); Basophil# 0.05 X10^3/uL; Basophil% 0.8 % (0-1); Eosinophil# 0.66 X10^3/uL; Eosinophils% 10.2 % (0-5); Hematocrit 33.6 % (37-47); Hemoglobin 10.3 g/dL (12.0-15.0); Lymphocyte # 0.64 X10^3/ul (0.83-4.51); Lymphocyte % 9.9 % (19-41); Mean Corp Hgb Conc 30.7 g/dL (32-36); Mean Corpuscular Hgb 27.5 pg (27.0-32.0); Mean Corpuscular Volume 89.8 fL (81-99); Mean Platelet Vol. 9.2 fl (6.2-12.0); Monocyte# 0.54 X10^3/uL; Monocyte% 8.3 % (0-10); NRBC Flagged by Analyzer 0 % (0-5); Neutrophil # 4.58 X10^3/uL (2.7-7.7); Neutrophil % 70.5 % (47-70); Platelet Count 242 K/mm3 (150-450); RBC Distribution Width CV 15.9 % (11.6-14.6); RBC Distribution Width SD 52.1 fl (35.1-43.9); Red Blood Count 3.74 M/mm3 (4.2-5.4); White Blood Count 6.5 K/mm3 (4.4-11.0)
[2021-12-30 07:25] LABS: Bedside Glucose 119 mg/dL (74-106)
[2021-12-30 07:36] LABS: ALB/GLOB Ratio 0.6 RATIO (0.9-2.4); AST(SGOT) 23 U/L (15-37); Alanine Aminotransfer ALT/SGPT 14 U/L (13-56); Albumin, Serum 2.3 g/dL (3.2-5.0); Alkaline Phosphatase 86 U/L (45-117); Anion Gap 2 (5-15); BUN 23 mg/dL (7-18); BUN/Creat Ratio 30.1 RATIO (10-20); Calcium,Total 9.5 mg/dL (8.5-10.1); Chloride 103 mmol/L (98-107); Creatinine, Serum 0.76 mg/dL (0.55-1.02); EST Glomerular Filtration Rate 78 mL/min (>60); Est Glom Filt Rate - Afr Amer 95 mL/min (>60); Estimated Creatinine Clearance 40.21 ml/min; Globulin 4.1 g/dL (2.2-4.2); Glucose 119 mg/dL (74-106); Protein, Total 6.4 g/dL (6.4-8.2); Sodium Level 140 mmol/L (136-145)
--- NOTE | 2021-12-30 09:08 | PCM.PN.SRG ---
Subjective Subjective Patient seen and examined during AM rounds. She reports significant improvement in her shortness of breath and declares that nothing to write home about. She also states that her catheter insertion site is not bothering her as long as she is not lying on that side Objective Data Objective Data Vital Signs: Vital Signs Temp Pulse Resp BP Pulse Ox O2 Del Method O2 Flow Rate 98.3 F 66 18 116/84 H 100 Nasal Cannula 4 12/30/21 08:05 12/30/21 08:05 12/30/21 08:05 12/30/21 08:05 12/30/21 08:05 12/30/21 08:05 12/30/21 08:05 FiO2 30 12/30/21 04:40 Oxygen Flow Rate (L/min) 4 Oxygen Delivery Method Nasal Cannula Weight: 287 lb 0.67 oz Body Mass Index (BMI) 50.8 Intake & Output: Intake and Output for Last 24 Hours 12/28/21 12/29/21 12/30/21 23:59 23:59 23:59 Intake Total 850 / 1150 909 / 909 50 / 50 Output Total 1350 / 1450 2520 / 2760 1260 / 1260 Balance -500 / -300 -1611 / -1851 -1210 / -1210 Lab / Micro Data Result Diagrams: 12/30/21 06:14 12/30/21 06:14 Labs: Laboratory Results - last 24 hr 12/29/21 10:53: POC Glucose 134 H 12/29/21 16:40: POC Glucose 115 H 12/29/21 22:58: POC Glucose 125 H 12/30/21 06:14: WBC 6.5, RBC 3.74 L, Hgb 10.3 L, Hct 33.6 L, MCV 89.8, MCH 27.5, MCHC 30.7 L, RDW Std Deviation 52.1 H, RDW Coeff of Aniceto 15.9 H, Plt Count 242, MPV 9.2, Immature Gran % (Auto) 0.300, Neut % (Auto) 70.5 H, Lymph % (Auto) 9.9 L, [place] % (Auto) 8.3, Eos % (Auto) 10.2 H, Baso % (Auto) 0.8, Absolute Neuts (auto) 4.6, Absolute Lymphs (auto) 0.64 L, Nucleated RBC % 0 12/30/21 06:14: Sodium 140, Potassium 4.0, Chloride 103, Carbon Dioxide 35.0 H, Anion Gap 2 L, BUN 23 H, Creatinine 0.76, Estim Creat Clear Calc 40.21, Est GFR (MDRD) Af Amer 95, Est GFR (MDRD) Non-Af 78, BUN/Creatinine Ratio 30.1 H, Glucose 119 H, Calcium 9.5, Total Bilirubin 0.30, AST 23, ALT 14, Alkaline Phosphatase 86, Total Protein 6.4, Albumin 2.3 L, Globulin 4.1, Albumin/Globulin Ratio 0.6 L 12/30/21 06:56: POC Glucose 119 H Micro: Microbiology 12/24/21 13:26 Sputum, Expectorated/Coughed Gram Stain - Final 12/24/21 13:26 Sputum, Expectorated/Coughed Respiratory Culture - Final Pseudomonas aeroginosa Presumptive C albicans Mixed Raisa 12/19/21 09:40 Blood Culture (Wb) - Left Hand Blood Culture - Final No growth in 5 days. 12/19/21 21:45 Blood Culture (Wb) - Right Hand Blood Culture - Final No growth in 5 days. 12/19/21 20:20 Nasal Secretion SARS-CoV-2 Antigen (Rapid) - Final Radiography Diagnostic Testing: Radiology Impression Intraoperative Ultrasound 12/29/21 12:30 IMPRESSION: Ultrasound guided right Pleurx catheter placement. Electronically Signed: Salazar Garcia MD at 14:33 EDT , Chest X-Ray 12/29/21 13:57 IMPRESSION: Status post right Pleurx catheter placement. No significant pleural effusion is seen. Persistent consolidation in the right upper lobe. Electronically Signed: Salazar Garcia MD at 15:20 EDT , Physical Exam Const oriented x3 and no apparent distress Chest Chest Narrative: Patient's chest wall examined and there is just some mild serosanguineous drainage to patient's Pleurx dressing. There is no crepitus around the catheter exit site. The catheter is draining thin pleural fluid. Total volume since procedure was 1 L. Patient does not have any evidence of air leak in the waterseal chamber even with provocative maneuvers like coughing. Resp normal respiratory effort Assessment & Plan Assessment/Plan (1) Recurrent pleural effusion on right: (2) Sputum culture positive for Pseudomonas: PLAN: Plan Patient postoperative day 1 from Pleurx catheter insertion using image guidance. He reports significant improvement in her dyspnea. Her exam is also reassuring that there is not appear to be any air leak in her Pleur-evac system. She drained a total of 1 L following her procedure. Radiology did not see evidence of any significant pleural effusion on the postoperative x-ray. Taken together, patient's catheter was capped today at bedside. She will require teaching on how to perform drainage herself. We have discussed a drainage interval of approximately a week and a half based on patient's most recent thoracenteses requirements. I have also requested that the [place] tree adapter remain in the patient's room in the event patient would become acutely dyspneic and require quick reversion to the Pleur-evac system. At this point, hospitalist service reports they will pursue placement for [facility] disposition.
[2021-12-30] MEDS: Amiodarone 200 MG Tablet 100 MG PO ×2 (10:23→23:03)
[2021-12-30] MEDS: guaiFENesin 1,200 MG Tablet 1200 MG PO ×2 (10:23→23:00)
[2021-12-30] MEDS: Fluticasone 0.05% 1 SPRAY NASAL.SRY NASAL (10:23)
[2021-12-30] MEDS: Nadolol 40 MG Tablet PO (10:23)
[2021-12-30] MEDS: Nystatin Powder 15gm Bottle 1 APPLIC TOPICAL ×2 (10:24→23:06)
--- NOTE | 2021-12-30 10:30 | CASEMGMT ---
Discharge Engineering Aid Cathy bustos quality assurance assistant talked to Melisa at [facility]. Pre-cert is still pending. Plan: [facility], Waiting pre-cert. Cathy Avitia Discharge Engineering Aid
--- NOTE | 2021-12-30 10:50 | CASEMGMT ---
Social Work ID provided script for needed IV ATB upon discharge. Phone call to Melisa at [facility] and updated on this. Melisa states they can accommodate IV ATB as long as pt has a picc line when she comes. MICHAEL Alanis
--- NOTE | 2021-12-30 11:05 | PCM.PN.ID ---
Physical Exam Narrative Feeling better, breathing improved, no fever Const alert and no apparent distress Resp normal air movement and clear to auscultation bilaterally Cardio regular rate and regular rhythm GI soft to palpation, non-tender and non-distended Skin no rashes or lesions noted ID ID: Route of nutrition/ use of supplements: [] Nutritional Intake: [] IV Site: [] Hansen Catheter: [] Assessment & Plan Assessment/Plan (1) Pseudomonas pneumonia: PLAN: Recent thoracentesis. Sx worsened while on cipro at home. On zosyn here. No fever, normal wbc. Not clear if her decompensation/hypoxia was due to worsening pseudomonal infection. Sputum cx showing rare PsA, mixed mary, yeast. Now s/p pleurx placement by Dr. Medina on 12/29, feeling well. Will write for 6 more days iv zosyn. Stop date 01/05/22. Will follow, d/w binder caser. (2) Pleural effusion, right: (3) Lung cancer:
--- NOTE | 2021-12-30 11:53 | CASEMGMT ---
Discharge [employer] Catyh alejandra/praveen nurse practitioner physicians assistant got a call from Margarita at [facility]. Pre-cert has been obtained. Patient can go when medically ready. Plan: [facility], When medically ready. Cathy Avitia Discharge [employer]estock [employer] Workers
[2021-12-30] MEDS: Insulin Lispro 100 UNIT/ML INSULN.PEN SC ×2 (12:01→16:14)
[2021-12-30 12:20] LABS: Bedside Glucose 187 mg/dL (74-106)
--- NOTE | 2021-12-30 12:26 | CASEMGMT ---
Addendum entered by Brianna Cortez 12/30/21 15:56: Social Work ROMI spoke with Melisa at [facility]. SNF has questions about pleurx catheter and supplies. ROMI updated charge nurse and requested a phone call to SNF to explain procedure. After this phone call Melisa at [facility] requesting pt be d/c tomorrow to give them time to get supplies. ROMI spoke with CARMINA who is agreeable. ROMI spoke with pt dgt Santa who states she was unable to get home bipap checked out today and requesting SNF provide bipap until pt's is fixed. Dr. Griffiths's office faxed settings and SW forwarded these along with [facility] respiratory therapist information to [facility]. ROMI spoke with Melisa at [facility] and informed that pt will discharge tomorrow and that Bipap will be needed. Melisa is agreeable and states they will have pleurx supplies and bipap ordered for admission tomorrow. Plan: [facility], tomorrow MICHAEL Alanis Original Note: Social Work SW met with pt and informed that insurance precert has been obtained and pt can go to [facility] when medically ready. Pt requesting SW call pt dgt and update. Call to pt dgt Santa and updated that precert has been obtained. Santa is taking pt's bipap to [facility] to ensure it works properly prior to pt going to SNF. ROMI updated CARMINA Rendon regarding precert. Plan: [facility], when medically ready MICHAEL Alanis
--- NOTE | 2021-12-30 12:40 | PCM.TXEXTCAR ---
Diet Diet Order/Speech Therapy: 12/29/21 15:32 Diet: Carbohydrate Controlled Dietary Modifications:: Gluten Free Is pt able to select menu?: Yes Diet Comments: Meats bite sized w/ extra sauce;up at 90 degrees for meals and 30 min after Routine Orders/Code Status Enema Type: Fleetz Enema Frequency: Daily PRN Suppository Type: Dulcolax 10mg Suppository Frequency: Daily PRN O2 Liters per Minute: 4 O2 Frequency: Continuous Routine Lab Work: CBC (q3d x2) and BMP Code Status: Full Code Wound(s) L ankle: Wound Type: Abrasion L heel: Wound Type: Pressure Injury R side of back: Wound Type: Puncture rt chest: Wound Type: plurex drain Suggestions for Active Care Change Position every (hours): 2 Times a day to sit in chair: 3 Therapies Weight Bearing: Full weight bearing Physical Therapy: Eval and Treat Occupational Therapy: Eval and Treat Problem/Diagnosis (1) Pseudomonas pneumonia: Status: Acute Code(s): J15.1 - Pneumonia due to Pseudomonas (2) Pleural effusion, right: Status: Acute Code(s): J90 - Pleural effusion, not elsewhere classified (3) Lung cancer: Status: Acute Code(s): C34.90 - Malignant neoplasm of unspecified part of unspecified bronchus or lung Plan 1.? Recurrent right pleural effusion, suspected Pseudomonas pneumonia versus aspiration -thoracentesis 12/15/2021.? -Pleurx cath placed 12/29/2021, working well. -sputum positive pseudomonas, suspect colonization as patients sputum is chronically positive -Continue IV Zosyn x6 more days -Speech therapy following, continue aspiration precautions -discussed a drainage interval of approximately a week and a half based on patient's most recent thoracenteses requirements.? I have also requested that the [place] tree adapter remain in the patient's room in the event patient would become acutely dyspneic and require quick reversion to the Pleur-evac system. 2.? Recent onset paroxysmal atrial fibrillation with RVR -Rate controlled.? -Continue amiodarone, nadolol.? 3. Stage III lung cancer -Follows with Dr. Crouch. Previously completed chemo and radiation.? -On immunotherapy. 4. Chronic hypoxic respiratory failure secondary to chronic asthma, lung cancer with recurrent pleural effusion -currently on 4L n/c which is baseline -Albuterol aerosol. -BiPAP at at bedtime and with naps 5. Type 2 diabetes mellitus -Accu-Cheks with sliding scale insulin. 6. Hypertension -stable, continue current regimen. 7. Anxiety/depression/ADD -on Paxil, methylphenidate. 8. DORY -reports noncompliance with CPAP. 9. Morbid obesity -encouraged diet and lifestyle modifications. 10.? Debility -recently discharged 12/17/2021 and refused SNF.? Now amendable. SNF pending acceptance. DVT prophylaxis-Patricia Allen on hold will order to restart tomorrow This patient was seen by [facility] under the supervision of Dr. Miramontes. Allergies/Procedures Done in Hospital Allergies adhesive tape Allergy (Verified 12/19/21 18:31) tears skin listed on pcp allergy list cefadroxil [From Duricef] Allergy (Verified 12/19/21 18:31) Unknown gluten Allergy (Verified 12/19/21 18:31) celiac disease Celiac disease mesalamine [From Asacol] Allergy (Verified 12/19/21 18:31) Unknown listed on pcp allergy list omalizumab [From Xolair] Allergy (Verified 12/19/21 18:31) Unknown listed on pcp allergy list Sulfa (Sulfonamide Antibiotics) Allergy (Verified 12/19/21 18:31) swelling as an oxycodone Adverse Reaction (Verified 12/19/21 18:31) Vomiting Procedures: - (Pleurx catheter placement) Type of Care/Length of Stay Estimated LOS: Convalescent Care Less Than 30 days Type of Care Needed: Skilled Rehab Potential: Fair Prognosis: Fair Additional Orders/Day of Discharge Day of Discharge: 12/30/21 Dietary and Speech Recommendations Dietitian Recommendations/Changes: continue CHO controlled diet as tolerated; consider glucerna 4oz 4x/day if PO intake at meals becomes poor. Texture/consistency modifications per PRIMARY CARE NURSE Speech Linguistic Eval Summary: Pt oriented to name, , address, and current location. Pt able to repeat Lemon, Bonilla, and Ball both verbatim and given time delay. Pt was able to count back from 7 consecutively 4/5 times. No concerns for cognition at this time. Discharge Plan Admission Admit Date/Time: 12/19/21 23:11 Primary Reason for Your Visit: Recurrent Pleural Effusion Attending Provider: Mat Miramontes Primary Care Provider: Senait Jay Consulting Providers: Mindy Painter ; Dre Plascencia ; Elizabeth Bailey ; Manoj Medina ; Dre Watters V ; Jamee Abreu Discharge Orders/Prescriptions Prescriptions: New Zosyn in dextrose (iso-osm) 3.375 gram/50 mL piggyback 3.375 g IV Q8H 5 Days Qty: 843.75 0RF Rx Instructions: stop date 01/05/22 dx: pseudomonas infection weekly bmp and CBC while on iv abx. Fax to [phone] nystatin [Nyamyc] 100,000 unit/gram Powder 1 applic topical BID Qty: 0 0RF Protocol: *Topical Application Instructions APPLICATION INSTRUCTIONS: groin, abdominal folds, under R breast Continued cholecalciferol (vitamin D3) 50,000 UNIT capsule 50,000 unit PO SUWE@0800 albuterol sulfate 2.5 MG/3 ML solution for nebulization 2.5 mg INHALATION Q2H PRN PRN (Reason: Dyspnea, wheezing) Qty: 1 0RF albuterol sulfate [ProAir HFA] 1 PUFF inhaler 2 puff inhalation Q6H PRN PRN (Reason: Dyspnea/Wheezing/Sob) budesonide [Rhinocort Allergy] 8.43 ML spray,non-aerosol 2 puff NARES DAILY methylphenidate HCl 20 MG tablet extended release 20 mg PO BID Label Comments: take 1 tablet by mouth twice a day paroxetine HCl [Paxil] 40 mg Tablet 40 mg PO DAILY nadolol 40 mg tablet 40 mg PO DAILY Label Comments: take 1 tablet by mouth once daily fluticasone furoate-vilanterol [Breo Ellipta] 200-25 mcg/dose blister with device 2 inh INHALATION DAILY Label Comments: inhale 1 puff by mouth INTO THE LUNGS once daily (USE GOOD ORAL CARE AFTER USE) Humulin R U-500 (Conc) Kwikpen 500 unit/mL (3 mL) insulin pen 65 unit SUBCUT DINNER Label Comments: INJECT 95 UNITS SUBCUTANEOUSLY DAILY BEFORE BREAKFAST AND 85 UNIT... (REFER TO PRESCRIPTION NOTES). acetaminophen [Tylenol] 325 mg Tablet 650 mg PO Q6H PRN PRN (Reason: Pain 1-10 Or Fever) Qty: 0 0RF amiodarone 200 mg Tablet 100 mg PO BID 30 Days Qty: 30 0RF hydralazine 10 mg Tablet 10 mg PO TID 30 Days Qty: 90 0RF Mucus Relief ER 1,200 mg Tablet Extended Release 12hr 1,200 mg PO BID Qty: 0 0RF Held apixaban 5 mg tablet 5 mg PO BID Qty: 60 0RF Hold Instructions: Resume on 12/31/21. Discontinued Humulin R U-500 (Conc) Kwikpen 500 unit/mL (3 mL) insulin pen 75 unit SUBCUT DAILY Label Comments: INJECT 95 UNITS SUBCUTANEOUSLY DAILY BEFORE BREAKFAST AND 85 UNIT... (REFER TO PRESCRIPTION NOTES). Referrals / Follow Up: Senait Jay MD [Primary Care Provider] - Disposition Disposition (needs filled in before D/C Order can be placed): [facility]
[2021-12-30] MEDS: hydrALAZINE 10 MG Tablet PO ×2 (15:32→23:07)
[2021-12-30 16:40] LABS: Bedside Glucose 183 mg/dL (74-106)
--- NOTE | 2021-12-30 18:11 | PN.HOSP_ITS ---
Subjective Subjective Patient was seen and examined today, she remains on her home oxygen setting. Patient was set to to be transferred to a half-way facility for further services today, however, they were not able to get the equipment for her Pleurx catheter drainage and so her discharge was delayed until tomorrow. Patient has no complaints of any shortness of breath or chest discomfort at this time. Objective Data Objective Data Vital Signs: Vital Signs Temp Pulse Resp BP Pulse Ox O2 Del Method O2 Flow Rate 98.1 F 65 28 H 123/66 H 95 Bi-pap 4 12/30/21 15:04 12/30/21 15:32 12/30/21 15:10 12/30/21 15:32 12/30/21 15:10 12/30/21 15:04 12/30/21 11:05 FiO2 30 12/30/21 15:10 Oxygen Flow Rate (L/min) 4 Oxygen Delivery Method Bi-pap Weight: 130.2 kg Body Mass Index (BMI) 50.8 Intake & Output: Intake and Output for Last 24 Hours 12/28/21 12/29/21 12/30/21 23:59 23:59 23:59 Intake Total 850 / 1150 909 / 909 600 / 600 Output Total 1350 / 1450 2520 / 2760 2460 / 2460 Balance -500 / -300 -1611 / -1851 -1860 / -1860 Lab / Micro Data Result Diagrams: 12/30/21 06:14 12/30/21 06:14 Labs: Laboratory Results - last 24 hr 12/29/21 22:58: POC Glucose 125 H 12/30/21 06:14: WBC 6.5, RBC 3.74 L, Hgb 10.3 L, Hct 33.6 L, MCV 89.8, MCH 27.5, MCHC 30.7 L, RDW Std Deviation 52.1 H, RDW Coeff of Aniceto 15.9 H, Plt Count 242, MPV 9.2, Immature Gran % (Auto) 0.300, Neut % (Auto) 70.5 H, Lymph % (Auto) 9.9 L, [place] % (Auto) 8.3, Eos % (Auto) 10.2 H, Baso % (Auto) 0.8, Absolute Neuts (auto) 4.6, Absolute Lymphs (auto) 0.64 L, Nucleated RBC % 0 12/30/21 06:14: Sodium 140, Potassium 4.0, Chloride 103, Carbon Dioxide 35.0 H, Anion Gap 2 L, BUN 23 H, Creatinine 0.76, Estim Creat Clear Calc 40.21, Est GFR (MDRD) Af Amer 95, Est GFR (MDRD) Non-Af 78, BUN/Creatinine Ratio 30.1 H, Glucose 119 H, Calcium 9.5, Total Bilirubin 0.30, AST 23, ALT 14, Alkaline Phosphatase 86, Total Protein 6.4, Albumin 2.3 L, Globulin 4.1, Albumin/Globulin Ratio 0.6 L 12/30/21 06:56: POC Glucose 119 H 12/30/21 11:59: POC Glucose 187 H 12/30/21 16:12: POC Glucose 183 H Micro: Microbiology 12/24/21 13:26 Sputum, Expectorated/Coughed Gram Stain - Final 12/24/21 13:26 Sputum, Expectorated/Coughed Respiratory Culture - Final Pseudomonas aeroginosa Presumptive C albicans Mixed Raisa 12/19/21 09:40 Blood Culture (Wb) - Left Hand Blood Culture - Final No growth in 5 days. 12/19/21 21:45 Blood Culture (Wb) - Right Hand Blood Culture - Final No growth in 5 days. 12/19/21 20:20 Nasal Secretion SARS-CoV-2 Antigen (Rapid) - Final Physical Exam Const alert, oriented x3 and no apparent distress HEENT head/scalp atraumatic, moist oral mucous membranes and oropharynx normal Eyes PERRL, EOMs intact bilaterally and conjunctivae normal Neck supple and no JVD Resp normal respiratory effort, no retractions, no use of accessory muscles and clear to auscultation bilaterally Cardio regular rate, regular rhythm, S1 normal heart sound, S2 normal heart sound, no murmurs and no rub GI normal to inspection, nondistended, normoactive bowel sounds, soft to palpation and non-tender Extremity normal to inspection and no clubbing, cyanosis or edema Neuro oriented x3, CN's II-XII intact bilaterally, moves all extremities, no focal motor deficits and no sensory deficits noted Speech: speech normal Psych affect normal Assessment & Plan Assessment/Plan (1) Pleural effusion, right: PLAN: Plan #1 recurrent right pleural effusion suspected to be secondary to poorly differentiated non-small cell lung cancer-patient now has a Pleurx catheter in place, if patient remains medically stable she will be transferred to a half-way facility tomorrow #2 Pseudomonas pneumonia versus colonization-patient is currently receiving antibiotics per infectious diseases #3 chronic hypoxic respiratory failure-patient is currently on nasal cannula oxygen #4 type 2 diabetes-continue fingerstick blood sugars with sliding scale insulin administration #5 paroxysmal atrial fibrillation-continue current medications, patient's Eliquis is on hold due to her catheter insertion today #6 morbid obesity-complicates care, recovery, and prognosis #7 acute debility-patient is being seen by PT and OT, according to the daughter, plans are for the patient to go to an extended care facility most probably tomorrow #8 essential hypertension-continue current medication Charges/Coding Visit Charges Inpatient E&M: 68273 Subs Hosp L2
[2021-12-31] VITALS (15 sets, daily range): BP systolic 126–136; BP diastolic 54–63; PULSE 68–85; RESP 12–27; TEMP 36.6; O2SAT 92–98
[2021-12-31 03:25] LABS: Bedside Glucose 144 mg/dL (74-106)
[2021-12-31] MEDS: hydrALAZINE 10 MG Tablet PO ×2 (04:39→15:16)
[2021-12-31] MEDS: Enoxaparin 40 MG/0.4 ML Syringe SC (04:40)
[2021-12-31 07:09] LABS: Absolute Neutrophil Count 3.8 X10^3/uL (2.0-7.7); Basophil# 0.06 X10^3/uL; Eosinophil# 0.63 X10^3/uL; Eosinophils% 10.8 % (0-5); Hematocrit 30.2 % (37-47); Hemoglobin 9.5 g/dL (12.0-15.0); Mean Corp Hgb Conc 31.5 g/dL (32-36); Mean Corpuscular Hgb 27.5 pg (27.0-32.0); Mean Corpuscular Volume 87.5 fL (81-99); Mean Platelet Vol. 9.4 fl (6.2-12.0); Monocyte# 0.58 X10^3/uL; NRBC Flagged by Analyzer 0 % (0-5); Neutrophil # 3.83 X10^3/uL (2.7-7.7); Neutrophil % 65.9 % (47-70); Platelet Count 207 K/mm3 (150-450); RBC Distribution Width CV 15.7 % (11.6-14.6); RBC Distribution Width SD 50.4 fl (35.1-43.9); Red Blood Count 3.45 M/mm3 (4.2-5.4); White Blood Count 5.8 K/mm3 (4.4-11.0)
[2021-12-31 07:21] LABS: Bedside Glucose 142 mg/dL (74-106)
[2021-12-31] MEDS: Ipratropium/Albuterol Sulfate 3 ML AMPUL.NEB INHALATION ×4 (07:25→19:05)
[2021-12-31 07:58] LABS: ALB/GLOB Ratio 0.6 RATIO (0.9-2.4); AST(SGOT) 19 U/L (15-37); Alanine Aminotransfer ALT/SGPT 14 U/L (13-56); Albumin, Serum 2.2 g/dL (3.2-5.0); Alkaline Phosphatase 99 U/L (45-117); Anion Gap 1 (5-15); BUN 15 mg/dL (7-18); BUN/Creat Ratio 24.4 RATIO (10-20); Calcium,Total 9.3 mg/dL (8.5-10.1); Chloride 103 mmol/L (98-107); Creatinine, Serum 0.61 mg/dL (0.55-1.02); EST Glomerular Filtration Rate 101 mL/min (>60); Est Glom Filt Rate - Afr Amer 122 mL/min (>60); Estimated Creatinine Clearance 40.21 ml/min; Glucose 144 mg/dL (74-106); Potassium 3.8 mmol/L (3.5-5.1); Protein, Total 6.2 g/dL (6.4-8.2); Sodium Level 140 mmol/L (136-145)
--- NOTE | 2021-12-31 09:02 | PCM.DC.SUM ---
Documented by User: HIRAL Pan 12/30/21 13:08 Providers Date of Admission: 12/19/21 Date of Discharge: 12/30/21 Primary Care Physician: Dr. Senait Jay MD Consultations 12/21/21 13:19 Consult: Infectious Disease Routine Consulting Provider: Dre Plascencia Reason for Consult: Pseudomonas pneumonia, recurrent EMERGENT Consult: No MD Notified: Yes Date Notified: 12/21/21 Time Notified: 06:25 Method of Notification: Answering Service Comments:: stated they only have 4 lines to type info in 12/22/21 11:45 Consult: General Surgery Routine Consulting Provider: Manoj Medina Reason for Consult: pleurx catheter EMERGENT Consult: No MD Notified: Yes Date Notified: 12/22/21 Time Notified: 11:45 Method of Notification: Text 12/24/21 09:54 Consult: Consumer Education Specialist / Pulmonary Medicine Routine Consulting Provider: Dre Watters V Reason for Consult: Pneumonia/pleural effusion EMERGENT Consult: No MD Notified: Yes Date Notified: 12/24/21 Time Notified: 11:17 Method of Notification: via lanolin plant operator Reason For Visit: PSEUDOMONAS PNA Diagnosis Discharge Diagnosis (1) Pseudomonas pneumonia: Status: Acute Code(s): J15.1 - Pneumonia due to Pseudomonas (2) Pleural effusion, right: Status: Acute Code(s): J90 - Pleural effusion, not elsewhere classified (3) Lung cancer: Status: Acute Code(s): C34.90 - Malignant neoplasm of unspecified part of unspecified bronchus or lung Plan 1.? Recurrent right pleural effusion, suspected Pseudomonas pneumonia versus aspiration -thoracentesis 12/15/2021.? -Pleurx cath placed 12/29/2021, working well. -sputum positive pseudomonas, suspect colonization as patients sputum is chronically positive -Continue IV Zosyn x6 more days -Speech therapy following, continue aspiration precautions -discussed a drainage interval of approximately a week and a half based on patient's most recent thoracenteses requirements.? I have also requested that the [place] tree adapter remain in the patient's room in the event patient would become acutely dyspneic and require quick reversion to the Pleur-evac system. 2.? Recent onset paroxysmal atrial fibrillation with RVR -Rate controlled.? -Continue amiodarone, nadolol.? 3. Stage III lung cancer -Follows with Dr. Cruoch. Previously completed chemo and radiation.? -On immunotherapy. 4. Chronic hypoxic respiratory failure secondary to chronic asthma, lung cancer with recurrent pleural effusion -currently on 4L n/c which is baseline -Albuterol aerosol. -BiPAP at at bedtime and with naps 5. Type 2 diabetes mellitus -Accu-Cheks with sliding scale insulin. 6. Hypertension -stable, continue current regimen. 7. Anxiety/depression/ADD -on Paxil, methylphenidate. 8. DORY -reports noncompliance with CPAP. 9. Morbid obesity -encouraged diet and lifestyle modifications. 10.? Debility -recently discharged 12/17/2021 and refused SNF.? Now amendable. SNF pending acceptance. DVT prophylaxis-Patricia Allen on hold will order to restart tomorrow This patient was seen by Vivian Olson NP-C under the supervision of Dr. Miramontes. Medications at Discharge Home Medications cholecalciferol (vitamin D3) 1,250 mcg (50,000 unit) capsule 50,000 unit PO SUWE@0800 SUPPLEMENT 06/01/17 albuterol sulfate 2.5 mg/3 mL (0.083 %) solution for nebulization 2.5 mg (3 mL) inhalation Q2H PRN PRN Dyspnea, wheezing ##1 11/26/17 albuterol sulfate 90 mcg/actuation aerosol inhaler (ProAir HFA) 2 puff inhalation Q6H PRN PRN Dyspnea/Wheezing/Sob 03/25/18 budesonide 32 mcg/actuation nasal spray (Rhinocort Allergy) 2 puff DAILY ALLERGIES 06/12/18 methylphenidate HCl 20 mg tablet,extended release 20 mg PO BID ADHD 03/01/19 fluticasone furoate 200 mcg-vilanterol 25 mcg/dose inhalation powder (Breo Ellipta) 2 inh inhalation DAILY sob 12/09/21 insulin regular hum U-500 conc 500 unit/mL(3 mL) subcut pen (Humulin R U-500 (Conc) Insulin Kwikpen) 65 unit subcut DINNER diabetes 12/09/21 nadolol 40 mg tablet 40 mg PO DAILY heart 12/09/21 paroxetine HCl 40 mg tablet (Paxil) 40 mg PO DAILY mood 12/09/21 acetaminophen 325 mg tablet (Tylenol) 650 mg PO Q6H PRN PRN Pain 1-10 Or Fever #0 tabs 12/16/21 amiodarone 200 mg tablet 100 mg PO BID 30 days #30 tabs 12/16/21 guaifenesin 1,200 mg tablet, extended release 12 hr (Mucus Relief ER) 1,200 mg PO BID #0 tabs 12/16/21 hydralazine 10 mg tablet 10 mg PO TID 30 days #90 tabs 12/16/21 apixaban 5 mg tablet 5 mg PO BID #60 tabs 12/17/21 nystatin 100,000 unit/gram topical powder (Nyamyc) 1 applic topical BID #0 grams 12/30/21 piperacillin-tazobactam 3.375 gram/50 mL dextrose(iso-os) IV piggyback (Zosyn) 3.375 g (56.25 mL) IV Q8H 5 days #843.75 mL 12/30/21 Hospital Course Operations None Procedures - (Pleurx cath) Summary of Care Provided Minutes Spent on Discharge: 35 Hospital Course: Patient is a 76-year-old female who initially represented to the ER 2 days after discharge with shortness of breath and dyspnea. Patient has a recurrent pleural effusion that she underwent thoracentesis on 12/15/2021 and was sent home with instructions to follow-up with Dr. Medina for Pleurx cath insertion in the outpatient setting. However patient was at home for only 2 days when she became short of breath again and was subsequently brought back to the ER and readmitted. Patient Eliquis was held in anticipation of Pleurx catheter placement during this admission. Patient initially needed an increased amount of oxygen over her 4 L nasal cannula baseline as well as BiPAP at at bedtime and intermittently throughout the day. Pleurx catheter was placed on 12/29/2021 and was attached to a Pleur-evac overnight. Patient had 1 L of drainage out and Pleurx catheter was subsequently detached from Pleur-evac and capped. Patient will need drained via Pleurx catheter every 7 to 10 days and this amount should be charted when completed. Patient [place] go [facility] [place] [facility]. Physical Exam Const oriented x3 General Appearance: cooperative and comfortable Orientation / Consciousness: lethargic HEENT head/scalp atraumatic and moist oral mucous membranes Eyes conjunctivae normal and no scleral icterus Neck no lymphadenopathy and supple Resp normal respiratory effort and clear to auscultation bilaterally Resp Narrative: Diffusely diminished but no adventitious sounds noted today, remains on 4 L nasal cannula Cardio regular rate, regular rhythm, S1 normal heart sound and S2 normal heart sound GI normal to inspection, nondistended, normoactive bowel sounds, soft to palpation and non-tender GI Narrative: Large abdomen with pannus Extremity normal to inspection Extremity Narrative: Ecchymosis left upper extremity where we attempted to access her port unsuccessfully, appears to be healing, soft General Extremity: edema bilateral lower extremity Details: moderate Skin Skin Narrative: Midline left upper extremity with large ecchymotic area from previous med port access attempt-appears to be healing Neuro oriented x3, moves all extremities, no focal motor deficits and no sensory deficits noted Psych affect normal Weight / BMI Weight Weight: 287 lb 0.67 oz Body Mass Index (BMI) 50.8 ABG / Lab / Microbiology Data Result Diagrams: 12/30/21 06:14 12/30/21 06:14 Laboratory: Laboratory Results - last 24 hr 12/29/21 16:40: POC Glucose 115 H 12/29/21 22:58: POC Glucose 125 H 12/30/21 06:14: WBC 6.5, RBC 3.74 L, Hgb 10.3 L, Hct 33.6 L, MCV 89.8, MCH 27.5, MCHC 30.7 L, RDW Std Deviation 52.1 H, RDW Coeff of Aniceto 15.9 H, Plt Count 242, MPV 9.2, Immature Gran % (Auto) 0.300, Neut % (Auto) 70.5 H, Lymph % (Auto) 9.9 L, [place] % (Auto) 8.3, Eos % (Auto) 10.2 H, Baso % (Auto) 0.8, Absolute Neuts (auto) 4.6, Absolute Lymphs (auto) 0.64 L, Nucleated RBC % 0 12/30/21 06:14: Sodium 140, Potassium 4.0, Chloride 103, Carbon Dioxide 35.0 H, Anion Gap 2 L, BUN 23 H, Creatinine 0.76, Estim Creat Clear Calc 40.21, Est GFR (MDRD) Af Amer 95, Est GFR (MDRD) Non-Af 78, BUN/Creatinine Ratio 30.1 H, Glucose 119 H, Calcium 9.5, Total Bilirubin 0.30, AST 23, ALT 14, Alkaline Phosphatase 86, Total Protein 6.4, Albumin 2.3 L, Globulin 4.1, Albumin/Globulin Ratio 0.6 L 12/30/21 06:56: POC Glucose 119 H 12/30/21 11:59: POC Glucose 187 H Microbiology: Microbiology 12/24/21 13:26 Sputum, Expectorated/Coughed Gram Stain - Final 12/24/21 13:26 Sputum, Expectorated/Coughed Respiratory Culture - Final Pseudomonas aeroginosa Presumptive C albicans Mixed Raisa 12/19/21 09:40 Blood Culture (Wb) - Left Hand Blood Culture - Final No growth in 5 days. 12/19/21 21:45 Blood Culture (Wb) - Right Hand Blood Culture - Final No growth in 5 days. 12/19/21 20:20 Nasal Secretion SARS-CoV-2 Antigen (Rapid) - Final Radiography Diagnostic Testing: Radiology Impression Intraoperative Ultrasound 12/29/21 12:30 IMPRESSION: Ultrasound guided right Pleurx catheter placement. Electronically Signed: Salazar Garcia MD at 14:33 EDT , Chest X-Ray 12/29/21 13:57 IMPRESSION: Status post right Pleurx catheter placement. No significant pleural effusion is seen. Persistent consolidation in the right upper lobe. Electronically Signed: Salazar Garcia MD at 15:20 EDT , Meaningful Use Info Meaningful Use Diagnoses (Choose all that apply): None applicable Discharge Plan Admission Admit Date/Time: 12/19/21 23:11 Primary Reason for Your Visit: Recurrent Pleural Effusion Attending Provider: Mat Miramontes Primary Care Provider: Senait Jay Consulting Providers: Mindy Painter ; Dre Plascencia ; Elizabeth Bailey ; Manoj Medina ; Dre Watters V ; [place],Huson Discharge Orders/Prescriptions Prescriptions: New Zosyn in dextrose (iso-osm) 3.375 gram/50 mL piggyback 3.375 g IV Q8H 5 Days Qty: 843.75 0RF Rx Instructions: stop date 01/05/22 dx: pseudomonas infection weekly bmp and CBC while on iv abx. Fax to [phone] nystatin [Nyamyc] 100,000 unit/gram Powder 1 applic topical BID Qty: 0 0RF Protocol: *Topical Application Instructions APPLICATION INSTRUCTIONS: groin, abdominal folds, under R breast Continued cholecalciferol (vitamin D3) 50,000 UNIT capsule 50,000 unit PO SUWE@0800 albuterol sulfate 2.5 MG/3 ML solution for nebulization 2.5 mg INHALATION Q2H PRN PRN (Reason: Dyspnea, wheezing) Qty: 1 0RF albuterol sulfate [ProAir HFA] 1 PUFF inhaler 2 puff inhalation Q6H PRN PRN (Reason: Dyspnea/Wheezing/Sob) budesonide [Rhinocort Allergy] 8.43 ML spray,non-aerosol 2 puff NARES DAILY methylphenidate HCl 20 MG tablet extended release 20 mg PO BID Label Comments: take 1 tablet by mouth twice a day paroxetine HCl [Paxil] 40 mg Tablet 40 mg PO DAILY nadolol 40 mg tablet 40 mg PO DAILY Label Comments: take 1 tablet by mouth once daily fluticasone furoate-vilanterol [Breo Ellipta] 200-25 mcg/dose blister with device 2 inh INHALATION DAILY Label Comments: inhale 1 puff by mouth INTO THE LUNGS once daily (USE GOOD ORAL CARE AFTER USE) Humulin R U-500 (Conc) Kwikpen 500 unit/mL (3 mL) insulin pen 65 unit SUBCUT DINNER Label Comments: INJECT 95 UNITS SUBCUTANEOUSLY DAILY BEFORE BREAKFAST AND 85 UNIT... (REFER TO PRESCRIPTION NOTES). acetaminophen [Tylenol] 325 mg Tablet 650 mg PO Q6H PRN PRN (Reason: Pain 1-10 Or Fever) Qty: 0 0RF amiodarone 200 mg Tablet 100 mg PO BID 30 Days Qty: 30 0RF hydralazine 10 mg Tablet 10 mg PO TID 30 Days Qty: 90 0RF Mucus Relief ER 1,200 mg Tablet Extended Release 12hr 1,200 mg PO BID Qty: 0 0RF Held apixaban 5 mg tablet 5 mg PO BID Qty: 60 0RF Hold Instructions: Resume on 12/31/21. Discontinued Humulin R U-500 (Conc) Kwikpen 500 unit/mL (3 mL) insulin pen 75 unit SUBCUT DAILY Label Comments: INJECT 95 UNITS SUBCUTANEOUSLY DAILY BEFORE BREAKFAST AND 85 UNIT... (REFER TO PRESCRIPTION NOTES). Referrals / Follow Up: Senait Jay MD [Primary Care Provider] - Disposition Disposition (needs filled in before D/C Order can be placed): [facility] Facility Documented by User: Dr. Mat Miramontes DO 12/30/21 14:44 Providers Date of Admission: 12/19/21 Reason For Visit: PSEUDOMONAS PNA Diagnosis Discharge Diagnosis (1) Pseudomonas pneumonia: Status: Acute Code(s): J15.1 - Pneumonia due to Pseudomonas (2) Pleural effusion, right: Status: Acute Code(s): J90 - Pleural effusion, not elsewhere classified (3) Lung cancer: Status: Acute Code(s): C34.90 - Malignant neoplasm of unspecified part of unspecified bronchus or lung Medications at Discharge Home Medications cholecalciferol (vitamin D3) 1,250 mcg (50,000 unit) capsule 50,000 unit PO SUWE@0800 SUPPLEMENT 06/01/17 albuterol sulfate 2.5 mg/3 mL (0.083 %) solution for nebulization 2.5 mg (3 mL) inhalation Q2H PRN PRN Dyspnea, wheezing ##1 11/26/17 albuterol sulfate 90 mcg/actuation aerosol inhaler (ProAir HFA) 2 puff inhalation Q6H PRN PRN Dyspnea/Wheezing/Sob 03/25/18 budesonide 32 mcg/actuation nasal spray (Rhinocort Allergy) 2 puff DAILY ALLERGIES 06/12/18 methylphenidate HCl 20 mg tablet,extended release 20 mg PO BID ADHD 03/01/19 fluticasone furoate 200 mcg-vilanterol 25 mcg/dose inhalation powder (Breo Ellipta) 2 inh inhalation DAILY sob 12/09/21 insulin regular hum U-500 conc 500 unit/mL(3 mL) subcut pen (Humulin R U-500 (Conc) Insulin Kwikpen) 65 unit subcut DINNER diabetes 12/09/21 nadolol 40 mg tablet 40 mg PO DAILY heart 12/09/21 paroxetine HCl 40 mg tablet (Paxil) 40 mg PO DAILY mood 12/09/21 acetaminophen 325 mg tablet (Tylenol) 650 mg PO Q6H PRN PRN Pain 1-10 Or Fever #0 tabs 12/16/21 amiodarone 200 mg tablet 100 mg PO BID 30 days #30 tabs 12/16/21 guaifenesin 1,200 mg tablet, extended release 12 hr (Mucus Relief ER) 1,200 mg PO BID #0 tabs 12/16/21 hydralazine 10 mg tablet 10 mg PO TID 30 days #90 tabs 12/16/21 apixaban 5 mg tablet 5 mg PO BID #60 tabs 12/17/21 nystatin 100,000 unit/gram topical powder (Nyamyc) 1 applic topical BID #0 grams 12/30/21 piperacillin-tazobactam 3.375 gram/50 mL dextrose(iso-os) IV piggyback (Zosyn) 3.375 g (56.25 mL) IV Q8H 5 days #843.75 mL 12/30/21 ABG / Lab / Microbiology Data Result Diagrams: 12/30/21 06:14 12/30/21 06:14 Discharge Plan Admission Admit Date/Time: 12/19/21 23:11 Primary Reason for Your Visit: Recurrent Pleural Effusion Attending Provider: Mat Miramontes Primary Care Provider: Senait Jay Consulting Providers: Mindy Painter ; Dre Plascencia ; Elizabeth Bailey ; Manoj Medina ; Dre Watters V ; Jamee Abreu Discharge Orders/Prescriptions Prescriptions: New Zosyn in dextrose (iso-osm) 3.375 gram/50 mL piggyback 3.375 g IV Q8H 5 Days Qty: 843.75 0RF Rx Instructions: stop date 01/05/22 dx: pseudomonas infection weekly bmp and CBC while on iv abx. Fax to [phone] nystatin [Nyamyc] 100,000 unit/gram Powder 1 applic topical BID Qty: 0 0RF Protocol: *Topical Application Instructions APPLICATION INSTRUCTIONS: groin, abdominal folds, under R breast Continued cholecalciferol (vitamin D3) 50,000 UNIT capsule 50,000 unit PO SUWE@0800 albuterol sulfate 2.5 MG/3 ML solution for nebulization 2.5 mg INHALATION Q2H PRN PRN (Reason: Dyspnea, wheezing) Qty: 1 0RF albuterol sulfate [ProAir HFA] 1 PUFF inhaler 2 puff inhalation Q6H PRN PRN (Reason: Dyspnea/Wheezing/Sob) budesonide [Rhinocort Allergy] 8.43 ML spray,non-aerosol 2 puff NARES DAILY methylphenidate HCl 20 MG tablet extended release 20 mg PO BID Label Comments: take 1 tablet by mouth twice a day paroxetine HCl [Paxil] 40 mg Tablet 40 mg PO DAILY nadolol 40 mg tablet 40 mg PO DAILY Label Comments: take 1 tablet by mouth once daily fluticasone furoate-vilanterol [Breo Ellipta] 200-25 mcg/dose blister with device 2 inh INHALATION DAILY Label Comments: inhale 1 puff by mouth INTO THE LUNGS once daily (USE GOOD ORAL CARE AFTER USE) Humulin R U-500 (Conc) Kwikpen 500 unit/mL (3 mL) insulin pen 65 unit SUBCUT DINNER Label Comments: INJECT 95 UNITS SUBCUTANEOUSLY DAILY BEFORE BREAKFAST AND 85 UNIT... (REFER TO PRESCRIPTION NOTES). acetaminophen [Tylenol] 325 mg Tablet 650 mg PO Q6H PRN PRN (Reason: Pain 1-10 Or Fever) Qty: 0 0RF amiodarone 200 mg Tablet 100 mg PO BID 30 Days Qty: 30 0RF hydralazine 10 mg Tablet 10 mg PO TID 30 Days Qty: 90 0RF Mucus Relief ER 1,200 mg Tablet Extended Release 12hr 1,200 mg PO BID Qty: 0 0RF Held apixaban 5 mg tablet 5 mg PO BID Qty: 60 0RF Hold Instructions: Resume on 12/31/21. Discontinued Humulin R U-500 (Conc) Kwikpen 500 unit/mL (3 mL) insulin pen 75 unit SUBCUT DAILY Label Comments: INJECT 95 UNITS SUBCUTANEOUSLY DAILY BEFORE BREAKFAST AND 85 UNIT... (REFER TO PRESCRIPTION NOTES). Referrals / Follow Up: Senait Jay MD [Primary Care Provider] - Disposition Disposition (needs filled in before D/C Order can be placed): [facility] Facility Charges/Coding Addendum Addendum: Patient was seen and examined today independently of Madyson Olson, she is currently on her baseline oxygen requirement and appears comfortable. We received confirmation of a bed for [place] [facility] for [place]-term rehab services. On examination she appeared older than her stated age, she does not appear to be in any distress. Vital signs as documented. Skin warm and dry and without overt rashes. Neck without JVD, thyroid appears normal, trachea is midline, neck is supple. Lungs clear, normal air movement was noted. Heart exam notable for regular rhythm, normal sounds and absence of murmurs, rubs or gallops. Abdomen unremarkable and without evidence of organomegaly, masses, or abdominal aortic enlargement, bowel sounds are present in all 4 quadrants, no abdominal tenderness was noted. Patient is morbidly obese. Extremities nonedematous, no cyanosis was noted, no clubbing was noted. Neuro: Cranial nerves II through XII are grossly intact, no focal motor deficits were noted, sensation to light touch and pinprick is intact, motor exam 5/5 throughout. Psych: Patient is alert and oriented x3, she does not appear anxious or depressed, she does not appear agitated. #1 recurrent right pleural effusion suspected to be secondary to poorly differentiated non-small cell lung cancer-patient now has a Pleurx catheter in place. #2 Pseudomonas pneumonia versus colonization-patient is currently receiving antibiotics per infectious diseases #3 chronic hypoxic respiratory failure-patient is currently on nasal cannula oxygen #4 type 2 diabetes-continue fingerstick blood sugars with sliding scale insulin administration #5 paroxysmal atrial fibrillation-continue current medications, patient's Eliquis is on hold due to her catheter insertion today #6 morbid obesity-complicates care, recovery, and prognosis #7 acute debility-patient is being seen by PT and OT, according to the daughter, plans are for the patient to go to an extended care facility. #8 essential hypertension-continue current medication Patient appears stable for transfer [place] [facility] services. I have reviewed Madyson Olson's discharge summary including her medical assessment and plan of care with the above additions endorse. Total clinical time spent by myself addressing the patient's medical issues, reviewing the data, and collaborating with patient's care team: 25 minutes Visit Charges Inpatient E&M: 28890 Disch Hosp
[2021-12-31] MEDS: Amiodarone 200 MG Tablet 100 MG PO (09:38)
[2021-12-31] MEDS: Fluticasone 0.05% 1 SPRAY NASAL.SRY NASAL (09:39)
[2021-12-31] MEDS: guaiFENesin 1,200 MG Tablet 1200 MG PO (09:39)
[2021-12-31] MEDS: Nystatin Powder 15gm Bottle 1 APPLIC TOPICAL (09:39)
--- NOTE | 2021-12-31 11:33 | PN.SURG_ITS ---
Subjective Subjective Patient was seen and examined during AM rounds. She reports that she did have some pourer crane ladle shortness of breath, but was quickly concluded that oxygen line and not been connected to her mask. Once this was rectified, her symptoms improved. She states she has now comfortable and has only mild discomfort when she rolls onto the side of her Pleurx catheter Objective Data Objective Data Vital Signs: Vital Signs Temp Pulse Resp BP Pulse Ox O2 Del Method O2 Flow Rate 98 F 76 18 126/55 H 98 Room Air 4 12/31/21 08:38 12/31/21 08:38 12/31/21 08:38 12/31/21 08:38 12/31/21 08:38 12/31/21 08:38 12/31/21 07:24 FiO2 30 12/31/21 05:25 Oxygen Flow Rate (L/min) 4 Oxygen Delivery Method Room Air Weight: 275 lb 9.245 oz Body Mass Index (BMI) 50.8 Intake & Output: Intake and Output for Last 24 Hours 12/29/21 12/30/21 12/31/21 23:59 23:59 23:59 Intake Total 909 / 909 1490 / 1490 150 / 150 Output Total 2520 / 2760 3610 / 3610 450 / 450 Balance -1611 / -1851 -2120 / -2120 -300 / -300 Lab / Micro Data Result Diagrams: 12/31/21 06:30 12/31/21 06:30 Labs: Laboratory Results - last 24 hr 12/30/21 11:59: POC Glucose 187 H 12/30/21 16:12: POC Glucose 183 H 12/30/21 23:13: POC Glucose 144 H 12/31/21 06:30: WBC 5.8, RBC 3.45 L, Hgb 9.5 L, Hct 30.2 L, MCV 87.5, MCH 27.5, MCHC 31.5 L, RDW Std Deviation 50.4 H, RDW Coeff of Aniceto 15.7 H, Plt Count 207, MPV 9.4, Immature Gran % (Auto) 0.300, Neut % (Auto) 65.9, Lymph % (Auto) 12.0 L , [place] % (Auto) 10.0, Eos % (Auto) 10.8 H, Baso % (Auto) 1.0, Absolute Neuts (auto) 3.8, Absolute Lymphs (auto) 0.70 L, Nucleated RBC % 0 12/31/21 06:30: Sodium 140, Potassium 3.8, Chloride 103, Carbon Dioxide 36.0 H, Anion Gap 1 L, BUN 15, Creatinine 0.61, Estim Creat Clear Calc 40.21, Est GFR (MDRD) Af Amer 122, Est GFR (MDRD) Non-Af 101, BUN/Creatinine Ratio 24.4 H, Glucose 144 H, Calcium 9.3, Total Bilirubin 0.30, AST 19, ALT 14, Alkaline Phosphatase 99, Total Protein 6.2 L, Albumin 2.2 L, Globulin 4.0, Album in/Globulin Ratio 0.6 L 12/31/21 06:32: POC Glucose 142 H Micro: Microbiology 12/30/21 14:00 Nasal Secretion SARS-CoV-2 Antigen (Rapid) - Final 12/24/21 13:26 Sputum, Expectorated/Coughed Gram Stain - Final 12/24/21 13:26 Sputum, Expectorated/Coughed Respiratory Culture - Final Pseudomonas aeroginosa Presumptive C albicans Mixed Raisa 12/19/21 09:40 Blood Culture (Wb) - Left Hand Blood Culture - Final No growth in 5 days. 12/19/21 21:45 Blood Culture (Wb) - Right Hand Blood Culture - Final No growth in 5 days. 12/19/21 20:20 Nasal Secretion SARS-CoV-2 Antigen (Rapid) - Final Physical Exam Const oriented x3 and no apparent distress Chest Chest Narrative: Patient's chest wall examined and there is dried serosanguineous drainage to patient's Pleurx dressing (consistent with the melena noted yesterday). There is no crepitus around the catheter exit site. Catheter remains capped after yesterday's exam. Resp normal respiratory effort Assessment & Plan Assessment/Plan (1) Recurrent pleural effusion on right: (2) Sputum culture positive for Pseudomonas: PLAN: Plan Patient postoperative day 2 from Pleurx catheter insertion using image guidance. She had some initial dyspnea this morning, but this is well explained by an inadvertent absence of oxygen being bled into her new mask. Her catheter site remained stable by exam. [facility] after delaying her transfer yesterday to afford more time to accumulate supplies. We have discussed a drainage interval approximately once every week and 2 to 2 weeks for Pleurx catheter initially. Charges/Coding Visit Charges Inpatient E&M: [id number] [facility] L1
--- NOTE | 2021-12-31 11:59 | CASEMGMT ---
Addendum entered by Brianna Cortez 12/31/21 12:58: Social Work spoke with CARMINA Rendon who state she has met with family and pt is ready for discharge. Updated med list faxed to [facility]. Transportation arranged with [facility] for 2:30 supervisor picking crew via cot. ROMI spoke with pt talha Pratt and she is agreeable to discharge time. Nursing updated and [facility] is aware of supervisor picking crew time. Plan: [facility], skilled level of care under convalescent stay MICHAEL Alanis Original Note: Social Work Phone call to Melisa at [facility] who states that the facility is able to accept pt today. MID LEVEL BUSINESS ANALYST feels pt is ready for discharge today. [id number] completed in [facility]ENS and faxed along with orders and negative covid results to [facility]. ROMI met with pt and dgt Santa and informed that discharge is planned for today and SW will set up transportation. Santa states she feels pt's breathing is worse and would like to speak with physician prior to discharge. RN is aware of this and to contact physician. ROMI requested RN let this SW know when pt is ready for transport. Plan: [facility], when medically ready MICHAEL Alanis
[2021-12-31 12:31] LABS: Bedside Glucose 179 mg/dL (74-106)
[2021-12-31] MEDS: Insulin Lispro 100 UNIT/ML INSULN.PEN SC (12:32)
[2021-12-31] MEDS: Acetaminophen 325 MG Tablet 650 MG PO (14:11)
[2021-12-31] MEDS: 0.9% Saline Lock 10 ML Syringe IV (14:12)
[2021-12-31] MEDS: Nadolol 40 MG Tablet PO (14:58)
--- NOTE | 2021-12-31 15:44 | CASEMGMT ---
Social Work Per RN, pt's midline needs replaced prior to discharge. SW call [facility] and put pickup time on hold. Phone call to Melisa at [facility] and she confirms she can accept pt later this evening after it is replaced. Melisa states pt's precert expires at midnight tonight. Physician updated. MICHAEL Alanis
--- NOTE | 2021-12-31 15:53 | NURSING ---
classroom technology coach phoned in ,states they should be arriving in about 45 minutes.
[2021-12-31 17:05] LABS: Bedside Glucose 130 mg/dL (74-106)
== END 2021-12-31 19:30 | DRG 186 ==
LOC: ED 23:36 → MS3 23:45
PROVIDERS: Anesthesiology; Hospitalist; Internal Medicine; Nurse Practitioner Family; Surgery; Admitting Provider Family Medicine; Emergency Provider Emergency Medicine; PCP Internal Medicine; Visit Provider Internal Medicine
PROC: 0W9930Z Drainage of Right Pleural Cavity with Drainage Device, Percutaneous Approach (ICD-10-PCS; CPT 32550; principal; 2021-12-29 12:15)
DX: J90 Pleural effusion, not elsewhere classified (principal); J15.1 Pneumonia due to Pseudomonas; J69.0 Pneumonitis due to inhalation of food and vomit; J96.11 Chronic respiratory failure with hypoxia; B37.0 Candidal stomatitis; J44.0 Chronic obstructive pulmonary disease with (acute) lower respiratory infection; Z68.42 Body mass index [BMI] 45.0-49.9, adult; Z16.23 Resistance to quinolones and fluoroquinolones; Z99.81 Dependence on supplemental oxygen; E11.9 Type 2 diabetes mellitus without complications; I48.0 Paroxysmal atrial fibrillation; E66.01 Morbid (severe) obesity due to excess calories; Z79.4 Long term (current) use of insulin; G25.81 Restless legs syndrome; I10 Essential (primary) hypertension; F41.9 Anxiety disorder, unspecified; E87.6 Hypokalemia; E78.5 Hyperlipidemia, unspecified; G47.33 Obstructive sleep apnea (adult) (pediatric); G50.0 Trigeminal neuralgia; E55.9 Vitamin D deficiency, unspecified; K90.0 Celiac disease; F32.A Depression, unspecified; F90.9 Attention-deficit hyperactivity disorder, unspecified type; R53.81 Other malaise; R13.12 Dysphagia, oropharyngeal phase; Z79.01 Long term (current) use of anticoagulants; Z87.891 Personal history of nicotine dependence; Z79.899 Other long term (current) drug therapy; Z92.21 Personal history of antineoplastic chemotherapy; Z92.3 Personal history of irradiation; Z85.118 Personal history of other malignant neoplasm of bronchus and lung; Z85.3 Personal history of malignant neoplasm of breast
CPT/HCPCS: 36415; 71045; 71046; 74230; 76604; 76998; 77001; 80048; 80053; 81001; 82803; 82962; 83036; 83735; 83880; 84484; 85025; 85610; 85730; 87040; 87070; 87077; 87184; 87186; 87205; 87426; 87811; 92507; 92526; 92610; 92611; 93005; 94002; 94003; 94640; 94762; 97110; 97162; 97166; 97530; 97535; 99251; 99285; J7050; J7120; A4216; C1729; G0463; J1940; J2405

== ENCOUNTER 2021-12-31 22:11 | Inpatient (IN) | payer MEDICARE, SELFPAY ==
[2021-12-31] VITALS (7 sets, daily range): BP systolic 139–175; BP diastolic 62–82; PULSE 72–110; RESP 14–25; TEMP 35.7–36.6; O2SAT 97–100; BMI 50.2
--- NOTE | 2021-12-31 22:22 | ED.RN ---
FAMILY MEMBER IS BEING VERBALLY ABUSIVE TO TRIAGE. SECURITY NOTIFIED
--- NOTE | 2021-12-31 22:31 | EKG12_ITS ---
Test Reason : SOB Blood Pressure : / mmHG Vent. Rate : 075 BPM Atrial Rate : 075 BPM P-R Int : 176 ms QRS Dur : 086 ms QT Int : 408 ms P-R-T Axes : 026 032 073 degrees QTc Int : 455 ms Normal sinus rhythm Normal ECG Confirmed by JEFERSON RIVERA, GENIA ([id number]), editor newspaper CAROL VARGAS ([id number]) on 01/05/2022 11:11:38 AM Referred By: HUMBERTO Confirmed By:BEAR GOVEA MD
--- NOTE | 2021-12-31 22:37 | RAD_ITS ---
INDICATION: respiratory failure EXAMINATION/TECHNIQUE: X-RAY - XR Chest 1 View COMPARISON: December 27, 2021. FINDINGS: LINES/DEVICES: Left PICC tip projects at the superior vena cava confluence. Right thoracostomy tube remains in place. LUNGS: Slight improved aeration of the right upper lung with persistent atelectasis or consolidation in the right upper lobe. Atelectasis or consolidation along the right middle lobe. No left consolidation. No effusion. No gross pneumothorax apparent on upright radiograph. MEDIASTINUM AND CARDIOVASCULAR STRUCTURES: Cardiac silhouette not enlarged. Aortic atherosclerosis. BONES AND SOFT TISSUES: Unremarkable. Right chest wall surgical change. RAD/Chest 1 View (Portable) IMPRESSION: Slight improved aeration in the right upper lung with persistent atelectasis or consolidation within the right middle lobe. Electronically Signed: Kalin Ambrose MD at 23:24 EDT ,
[2021-12-31 22:45] LABS: Absolute Lymphocyte Count 2.41 X10^3/uL (0.83-4.51); Basophil# 0.16 X10^3/uL; Basophil% 0.9 % (0-1); Eosinophil# 1.61 X10^3/uL; Eosinophils% 9.4 % (0-5); Hematocrit 39.1 % (37-47); Hemoglobin 11.6 g/dL (12.0-15.0); Lymphocyte # 2.41 X10^3/ul (0.83-4.51); Lymphocyte % 14.1 % (19-41); Mean Corp Hgb Conc 29.7 g/dL (32-36); Mean Corpuscular Hgb 27.4 pg (27.0-32.0); Mean Corpuscular Volume 92.2 fL (81-99); Mean Platelet Vol. 9.6 fl (6.2-12.0); Monocyte# 1.53 X10^3/uL; NRBC Flagged by Analyzer 0 % (0-5); Neutrophil # 10.97 X10^3/uL (2.7-7.7); Neutrophil % 64.4 % (47-70); POSITIVE DIFFERENTIAL YES; Platelet Count 441 K/mm3 (150-450); RBC Distribution Width CV 15.8 % (11.6-14.6); RBC Distribution Width SD 53.7 fl (35.1-43.9); Red Blood Count 4.24 M/mm3 (4.2-5.4); White Blood Count 17.1 K/mm3 (4.4-11.0)
--- NOTE | 2021-12-31 22:45 | EX.ED.DYSGE1 ---
HPI History of Present Illness Chief Complaint: Shortness of Breath Informant: family and EMS Narrative Narrative: 76-year-old female arriving to the emergency department unresponsive with respiratory failure. Apparently the patient was discharged from the hospital this evening. She was admitted with recurrent pleural effusion due to poorly differentiated non-small cell lung cancer. Patient had a Pleurx catheter placed. She is on BiPAP at night and wears nasal cannula during the day. Apparently when she arrived at half-way facility the oxygen was not connected properly and the patient became unresponsive. This happened twice. Second time the patient has not yet woken up. She was bagged by EMS placed on BiPAP when she got here. Our respiratory therapist that is on [facility] knows her well. [facility] Medical History Acute and chronic respiratory failure with hypoxia Acute bronchitis due to Rhinovirus Acute severe exacerbation of asthma Allergic rhinitis Anemia Anxiety Aspiration pneumonitis Asthma Asthmatic bronchitis Atrial fibrillation Atrial fibrillation with RVR BiPAP (biphasic positive airway pressure) dependence Body mass index (BMI) 50-59.9, adult Breast cancer Chronic diarrhea Chronic respiratory failure with hypoxia Dependence on supplemental oxygen Depression Diabetes Diabetes mellitus, type II Former smoker Former tobacco use GERD (gastroesophageal reflux disease) History of primary non-small cell carcinoma of right lung History of right breast cancer Hypertension Immunosuppressed due to chemotherapy Migraine headache Migraines Obstructive sleep apnea On home oxygen therapy Osteoarthritis Pneumonia Sleep apnea Vitamin D deficiency Home Medications cholecalciferol (vitamin D3) 1,250 mcg (50,000 unit) capsule 50,000 unit PO SUWE@0800 SUPPLEMENT 06/01/17 [History Last Taken 12/07/21] albuterol sulfate 2.5 mg/3 mL (0.083 %) solution for nebulization 2.5 mg (3 mL) inhalation Q2H PRN PRN Dyspnea, wheezing ##1 11/26/17 [Rx Last Taken 12/07/21] albuterol sulfate 90 mcg/actuation aerosol inhaler (ProAir HFA) 2 puff inhalation Q6H PRN PRN Dyspnea/Wheezing/Sob 03/25/18 [History Last Taken 12/07/21] budesonide 32 mcg/actuation nasal spray (Rhinocort Allergy) 2 puff DAILY ALLERGIES 06/12/18 [History Last Taken 12/07/21] methylphenidate HCl 20 mg tablet,extended release 20 mg PO BID ADHD 03/01/19 [History Last Taken 12/07/21] fluticasone furoate 200 mcg-vilanterol 25 mcg/dose inhalation powder (Breo Ellipta) 2 inh inhalation DAILY sob 12/09/21 [History Last Taken 12/07/21] insulin regular hum U-500 conc 500 unit/mL(3 mL) subcut pen (Humulin R U-500 (Conc) Insulin Kwikpen) 65 unit subcut DINNER diabetes 12/09/21 [History Last Taken Unknown] nadolol 40 mg tablet 40 mg PO DAILY heart 12/09/21 [History Last Taken 12/07/21] paroxetine HCl 40 mg tablet (Paxil) 40 mg PO DAILY mood 12/09/21 [History Last Taken 12/07/21] acetaminophen 325 mg tablet (Tylenol) 650 mg PO Q6H PRN PRN Pain 1-10 Or Fever #0 tabs 12/16/21 [Rx Last Taken Unknown] amiodarone 200 mg tablet 100 mg PO BID 30 days #30 tabs 12/16/21 [Rx Last Taken Unknown] guaifenesin 1,200 mg tablet, extended release 12 hr (Mucus Relief ER) 1,200 mg PO BID #0 tabs 12/16/21 [Rx Last Taken Unknown] hydralazine 10 mg tablet 10 mg PO TID 30 days #90 tabs 12/16/21 [Rx Last Taken Unknown] apixaban 5 mg tablet 5 mg PO BID #60 tabs 12/17/21 [Rx Last Taken Unknown] nystatin 100,000 unit/gram topical powder (Nyamyc) 1 applic topical BID #0 grams 12/30/21 [Rx Last Taken Unknown] piperacillin-tazobactam 3.375 gram/50 mL dextrose(iso-os) IV piggyback (Zosyn) 3.375 g (56.25 mL) IV Q8H 5 days #843.75 mL 12/30/21 [Rx Last Taken Unknown] budesonide 0.5 mg/2 mL suspension for nebulization 0.5 mg (2 mL) inhalation BID.RT #0 mL 12/31/21 [Rx Last Taken Unknown] dextromethorphan-guaifenesin 10 mg-100 mg/5 mL oral syrup 10 ml PO Q6H PRN PRN Cough #0 mL 12/31/21 [Rx Last Taken Unknown] prednisone 10 mg tablet See Taper PO BID #21 tabs 12/31/21 [Rx Last Taken Unknown] Allergy/AdvReac Type Severity Reaction Status Date / Time adhesive tape Allergy tears skin Verified 12/19/21 18:31 cefadroxil [From Duricef] Allergy Unknown Verified 12/19/21 18:31 gluten Allergy celiac Verified 12/19/21 18:31 disease mesalamine [From Asacol] Allergy Unknown Verified 12/19/21 18:31 omalizumab [From Xolair] Allergy Unknown Verified 12/19/21 18:31 Sulfa (Sulfonamide Allergy swelling Verified 12/19/21 18:31 Antibiotics) as an oxycodone AdvReac Vomiting Verified 12/19/21 18:31 Family History Father Cancer Myocardial infarction Mother Cancer Metastatic breast CA Surgical History H/O rectocele repair History of lymph node dissection of right axilla History of mastectomy History of partial hysterectomy Hx of bilateral cataract extraction Hx of carpal tunnel repair Social History household members: spouse Smoking Status: Former smoker how long ago did patient quit smoking: Smoked x 2 years 1/2 ppd, quit ~ 50 years prior. alcohol intake: never substance use type: does not use ROS ROS ED Review of Systems ROS Unobtainable: due to mental status EXAM Physical Exam Const Vital Signs: 12/31/21 22:12 12/31/21 22:15 12/31/21 22:15 Temperature 96.3 F L Temperature Source Temporal Pulse Rate 76 77 Respiratory Rate 20 H 20 H Respiratory Effort Short of Breath Respiratory Depth Shallow Blood Pressure 175/72 H 166/77 H Blood Pressure Mean 106 106 Pulse Ox 100 100 Oxygen Delivery Method Ambu-Bag Room Air Bi-pap Fraction of Inspired Oxygen (FIO2) 12/31/21 22:57 12/31/21 23:13 Temperature Temperature Source Pulse Rate 74 74 Respiratory Rate 25 H 25 H Respiratory Effort Respiratory Depth Blood Pressure 142/82 H 152/62 H Blood Pressure Mean 102 92 Pulse Ox 97 97 Oxygen Delivery Method Bi-pap Bi-pap Fraction of Inspired Oxygen (FIO2) 40 40 Positive well nourished, well developed and obese General Appearance ED: well developed Nutritional Appearance: obese HEENT Reports normocephalic, head/scalp atraumatic and moist mucous membranes Eyes PERRL and EOMs intact bilaterally Neck no lymphadenopathy, supple and no JVD Resp clear to auscultation bilaterally Resp Narrative: Patient has agonal like breathing which improves with BIPAP. Cardio regular rhythm and no murmurs Rate: tachycardic GI normal to inspection, nondistended, normoactive bowel sounds and non-tender Palpation: soft Back/Spine no CVA tenderness and normal ROM Extremity Extremity Narrative: PICC line in place General Extremety ED: Yes edema General Extremity: edema Neuro CN's II-XII intact bilaterally Neuro Narrative: Unresponsive to sternal rub Motor Exam: strength 5/5 throughout Skin no rashes or lesions noted and no wounds MDM MDM MDM Narrative Medical decision making narrative: Family wishes her to be a full code. We started prepping for intubation the patient began to open her eyes and seems to be doing better on the BiPAP. pH 7.15 with a PCO2 of 107.7 PO2 of 163.7 a bicarb of 38.2. Patient continues to improve on BiPAP. My interpretation of the chest x-ray is Pleurx catheter in place small residual pleural effusion. Lab Data Labs: Laboratory Results - last 24 hr 12/31/21 12/31/21 12/31/21 22:15 22:15 22:51 WBC 17.1 H RBC 4.24 Hgb 11.6 L Hct 39.1 MCV 92.2 D MCH 27.4 MCHC 29.7 L D RDW Std Deviation 53.7 H RDW Coeff of Aniceto 15.8 H Plt Count 441 MPV 9.6 Immature Gran % (Auto) 2.200 H Neut % (Auto) 64.4 Lymph % (Auto) 14.1 L [place] % (Auto) 9.0 Eos % (Auto) 9.4 H Baso % (Auto) 0.9 Absolute Neuts (auto) 11.0 H Absolute Lymphs (auto) 2.41 Nucleated RBC % 0 Lactic Acid 2.2 H* POC Glucose 309 H ABG Data ABG results: ABG 12/31/21 22:41 Specimen Type ART pH 7.16 L* Bicarbonate Actual 38.2 H Total CO2 42 Base Excess 9 H O2 Saturation 99 O2 % 50 ABG pCO2 107.7 H* ABG pO2 164 H Respiration Rate 14 Vent Mode NIV Tidal Volume 500 POC PEEP 10 Crit Call To/Read Back Yes Blood Gas Notified Whom hoehne EKG Initial EKG: Attestation: I personally reviewed and interpreted this EKG as follows: Comments: Normal sinus rhythm ventricular rate of 75 bpm. Critical Care Time Critical Care Time: Yes Critical care time (excluding procedures): 30-74 minutes (32), Including time spent:, Discussing w/Patient &/or Family/Pneumatic Tube Operator, Discussing w/Consultants, Arranging Admission or Transfer and Performing Direct Patient Care at Bedside Discharge Plan Dx/Rx/DC Orders Clinical Impression: Acute hypoxemic respiratory failure, Recurrent pleural effusion on right, Pseudomonas pneumonia, Lung cancer, Carbon dioxide narcosis Disposition Disposition: Acute Care [facility]
[2021-12-31] MEDS: 0.9% Normal Saline 1,000 ML 150 ML IV (22:47)
[2021-12-31 22:51] LABS: Base Excess 9 mmol/L (-2 to +2); Bicarbonate 38.2 mmol/L (22-26); Blood Gas Specimen Type ART; FI02 50; Mode NIV; PEEP 10; PO2 164 mmHG (75-100); RR 14; SO2 99 % (95-99); Total Carbon Dioxide 42 mmol/L; Vt 500; pCO2 107.7 mmHg (35-45); pH 7.16 (7.35-7.45)
[2021-12-31 23:03] LABS: Differential Indicated SCAN CRITERIA MET
[2021-12-31 23:10] LABS: Bedside Glucose 309 mg/dL (74-106)
[2021-12-31 23:14] LABS: Lactic Acid 2.2 mmol/L (0.4-1.9)
[2021-12-31 23:15] LABS: ALB/GLOB Ratio 0.6 RATIO (0.9-2.4); AST(SGOT) 26 U/L (15-37); Alanine Aminotransfer ALT/SGPT 20 U/L (13-56); Albumin, Serum 2.8 g/dL (3.2-5.0); Alkaline Phosphatase 151 U/L (45-117); Anion Gap 1 (5-15); BUN 15 mg/dL (7-18); BUN/Creat Ratio 14.2 RATIO (10-20); Chloride 99 mmol/L (98-107); Creatinine, Serum 1.06 mg/dL (0.55-1.02); EST Glomerular Filtration Rate 54 mL/min (>60); Est Glom Filt Rate - Afr Amer 65 mL/min (>60); Estimated Creatinine Clearance 37.93 ml/min; Globulin 4.8 g/dL (2.2-4.2); Glucose 324 mg/dL (74-106); Potassium 4.3 mmol/L (3.5-5.1); Protein, Total 7.6 g/dL (6.4-8.2); Sodium Level 138 mmol/L (136-145); Troponin-I HS 10 pg/mL (3.0-54.0)
--- NOTE | 2021-12-31 23:22 | ED.RN ---
dr goetz approached about sepsis alert. dosen't think this is sepsis. no route of infection at this time. sepsis screen d/c per dr [place] [id number]
[2021-12-31 23:24] LABS: Differential Comment SCANNED
--- NOTE | 2021-12-31 23:35 | PCM.HP.STD ---
HPI - General General Date of Admission: 12/31/21 Date of Service: 12/31/21 Chief Complaint: Unresponsive, respiratory distress. HPI Narrative The patient is a 76 y/o F w/ PMHx: Chronic anemia, Chronic hypoxic respiratory failure (4L NC), HTN, HLD, Anxiety and Depression/ADD, GERD, Celiac disease, Hx R sided breast CA, Hx NSC R lung CA stage III following w/ Dr. Crouch s/p prior chemo/radiation awaiting immunotherapy, DORY on CPAP q HS, Diabetes mellitus type II, Morbid obesity, Asthma w/ allergic rhinitis, recent admission 12/09/2021-12/17/2021 with new onset atrial fibrillation with RVR treated with IV amiodarone transitioned to home nadolol/eliquis, recurrent right pleural effusion and concern for aspiration pneumonia complicated by underlying lung cancer with history of chemotherapy and radiation awaiting immunotherapy initiation with underlying asthmatic history and chronic respiratory failure on 4 L nasal cannula with thoracentesis 12/15/2021 with removal of 1300 mL from the right chest noted to have been treated with 7 days of Zosyn with discharge on ciprofloxacin for 3 additional days per ID recommendation representing on 12/19/21 with worsened respiratory status and noted to be febrile, admitted and started on IV zosyn given Sputum Cx sensitivities w/ Pseudomonas, recurrent R sided pleural effusion with Surgery evaluation and placement of Pleurx catheter 12/29/21 with planned drainage q 7-10 days with discharge on 12/31/21 to SNF who now again re-presents to the [facility] ED on 12/31/21 with unresponsive episode at the skilled facility with respiratory failure with reportedly inappropriately connected oxygen at the facility with no responsiveness noted to be bagged by EMS and placed on the BiPAP with hospital transition. Work-up in the ED included T96.3, heart rate 76, BP 175/72, respiratory rate 20, initially presenting 100% on an Ambu bag transition to BiPAP, CBC with WC 17.1, hemoglobin 11.6, platelet 441 with left shift, ABG with pH 7.16, bicarb 38.2, PCO2 107.7, PO2 164 obtained following intubation, CMP with convex at 38, BUN/creat 15/1.06, glucose 324, lactic acid 2.2, alk phos 151 otherwise hepatic profile not marked appearing, troponin 10, chest x-ray with slight improved aeration in the right upper lung with persistent atelectasis or consolidation within the right middle lobe, EKG with sinus rhythm with no acute evidence of ischemia. [facility] Medical History Acute and chronic respiratory failure with hypoxia Acute bronchitis due to Rhinovirus Acute severe exacerbation of asthma Allergic rhinitis Anemia Anxiety Aspiration pneumonitis Asthma Asthmatic bronchitis Atrial fibrillation Atrial fibrillation with RVR BiPAP (biphasic positive airway pressure) dependence Body mass index (BMI) 50-59.9, adult Breast cancer Chronic diarrhea Chronic respiratory failure with hypoxia Dependence on supplemental oxygen Depression Diabetes Diabetes mellitus, type II Former smoker Former tobacco use GERD (gastroesophageal reflux disease) History of primary non-small cell carcinoma of right lung History of right breast cancer Hypertension Immunosuppressed due to chemotherapy Migraine headache Migraines Obstructive sleep apnea On home oxygen therapy Osteoarthritis Pneumonia Sleep apnea Vitamin D deficiency Home Medications cholecalciferol (vitamin D3) 1,250 mcg (50,000 unit) capsule 50,000 unit PO SUWE@0800 SUPPLEMENT 06/01/17 [History Last Taken 12/07/21] albuterol sulfate 2.5 mg/3 mL (0.083 %) solution for nebulization 2.5 mg (3 mL) inhalation Q2H PRN PRN Dyspnea, wheezing ##1 11/26/17 [Rx Last Taken 12/07/21] albuterol sulfate 90 mcg/actuation aerosol inhaler (ProAir HFA) 2 puff inhalation Q6H PRN PRN Dyspnea/Wheezing/Sob 03/25/18 [History Last Taken 12/07/21] budesonide 32 mcg/actuation nasal spray (Rhinocort Allergy) 2 puff DAILY ALLERGIES 06/12/18 [History Last Taken 12/07/21] methylphenidate HCl 20 mg tablet,extended release 20 mg PO BID ADHD 03/01/19 [History Last Taken 12/07/21] fluticasone furoate 200 mcg-vilanterol 25 mcg/dose inhalation powder (Breo Ellipta) 2 inh inhalation DAILY sob 12/09/21 [History Last Taken 12/07/21] insulin regular hum U-500 conc 500 unit/mL(3 mL) subcut pen (Humulin R U-500 (Conc) Insulin Kwikpen) 65 unit subcut DINNER diabetes 12/09/21 [History Last Taken Unknown] nadolol 40 mg tablet 40 mg PO DAILY heart 12/09/21 [History Last Taken 12/07/21] paroxetine HCl 40 mg tablet (Paxil) 40 mg PO DAILY mood 12/09/21 [History Last Taken 12/07/21] acetaminophen 325 mg tablet (Tylenol) 650 mg PO Q6H PRN PRN Pain 1-10 Or Fever #0 tabs 12/16/21 [Rx Last Taken Unknown] amiodarone 200 mg tablet 100 mg PO BID 30 days #30 tabs 12/16/21 [Rx Last Taken Unknown] guaifenesin 1,200 mg tablet, extended release 12 hr (Mucus Relief ER) 1,200 mg PO BID #0 tabs 12/16/21 [Rx Last Taken Unknown] hydralazine 10 mg tablet 10 mg PO TID 30 days #90 tabs 12/16/21 [Rx Last Taken Unknown] apixaban 5 mg tablet 5 mg PO BID #60 tabs 12/17/21 [Rx Last Taken Unknown] nystatin 100,000 unit/gram topical powder (Nyamyc) 1 applic topical BID #0 grams 12/30/21 [Rx Last Taken Unknown] piperacillin-tazobactam 3.375 gram/50 mL dextrose(iso-os) IV piggyback (Zosyn) 3.375 g (56.25 mL) IV Q8H 5 days #843.75 mL 12/30/21 [Rx Last Taken Unknown] budesonide 0.5 mg/2 mL suspension for nebulization 0.5 mg (2 mL) inhalation BID.RT #0 mL 12/31/21 [Rx Last Taken Unknown] dextromethorphan-guaifenesin 10 mg-100 mg/5 mL oral syrup 10 ml PO Q6H PRN PRN Cough #0 mL 12/31/21 [Rx Last Taken Unknown] prednisone 10 mg tablet See Taper PO BID #21 tabs 12/31/21 [Rx Last Taken Unknown] Allergy/AdvReac Type Severity Reaction Status Date / Time adhesive tape Allergy tears skin Verified 12/19/21 18:31 cefadroxil [From Duricef] Allergy Unknown Verified 12/19/21 18:31 gluten Allergy celiac Verified 12/19/21 18:31 disease mesalamine [From Asacol] Allergy Unknown Verified 12/19/21 18:31 omalizumab [From Xolair] Allergy Unknown Verified 12/19/21 18:31 Sulfa (Sulfonamide Allergy swelling Verified 12/19/21 18:31 Antibiotics) as an oxycodone AdvReac Vomiting Verified 12/19/21 18:31 Family History Father Cancer Myocardial infarction Mother Cancer Metastatic breast CA Surgical History H/O rectocele repair History of lymph node dissection of right axilla History of mastectomy History of partial hysterectomy Hx of bilateral cataract extraction Hx of carpal tunnel repair Social History household members: spouse Smoking Status: Former smoker how long ago did patient quit smoking: Smoked x 2 years 1/2 ppd, quit ~ 50 years prior. alcohol intake: never substance use type: does not use ROS Review of Systems ROS Unobtainable: due to encephalopathy Vital Signs Vital Signs Vital Signs: 12/31/21 22:12 12/31/21 22:15 12/31/21 22:15 Temperature 96.3 F L Temperature Source Temporal Pulse Rate 76 77 Respiratory Rate 20 H 20 H Respiratory Effort Short of Breath Respiratory Depth Shallow Blood Pressure 175/72 H 166/77 H Blood Pressure Mean 106 106 Pulse Ox 100 100 Oxygen Delivery Method Ambu-Bag Room Air Bi-pap Fraction of Inspired Oxygen (FIO2) 12/31/21 22:57 12/31/21 23:13 12/31/21 23:19 Temperature 97.8 F Temperature Source Temporal Pulse Rate 74 74 74 Respiratory Rate 25 H 25 H 25 H Respiratory Effort Respiratory Depth Blood Pressure 142/82 H 152/62 H 139/72 H Blood Pressure Mean 102 92 94 Pulse Ox 97 97 97 Oxygen Delivery Method Bi-pap Bi-pap Bi-pap Fraction of Inspired Oxygen (FIO2) 40 40 Weight Weight: 283 lb 11.759 oz Body Mass Index (BMI) 50.2 Physical Exam Narrative Physical Examination: General: Patient improving on BiPAP, awakens to stimuli, more alert but still fatigued, able to answer some orientation questions, following commands, seated upright in the ED bed, respiratory distress has improved. Skin: Normal color, normal turgor, no icterus, no cyanosis except very staged ecchymoses likely from lab draws. HEENT: AT/NC, EOMI, PERRLA, mildly dry MM, no carotid bruits, JVD difficult assess given thickened neck and currently on BiPAP. Lungs: Significantly diminished, greater bases, worse right mid and base, respiratory rate improving, continued on BiPAP, respiratory distress lessening, no significant rales, ronchi or wheezing. Heart: Currently regular rate and rhythm; no gallop, rub audible. Abdomen: Soft, morbidly obese, NTTP, difficult to assess distention given habitus, distant normal BS, unable to determine HSM given morbidly obese habitus. Extremities: No cyanosis, no clubbing, bilateral lower extremity pedal to distal hwang edema. Neurological: Patient improving on BiPAP, awakens to stimuli, more alert but still fatigued, able to answer some orientation questions, following commands, seated upright in the ED bed, respiratory distress has improved, cognitive function not baseline intact; pupils equally reactive to light and accommodation, moving all 4 extremities, strength severely globally decreased given acute presentation but improving. Psychiatric: Affect appears flat, lethargic but improving, no acute evidence of depressive or anxiety feelings. Results Lab / Micro Data Result Diagrams: 12/31/21 22:15 12/31/21 22:15 Labs: Laboratory Results - last 24 hr 12/31/21 22:15: WBC 17.1 H, RBC 4.24, Hgb 11.6 L, Hct 39.1, MCV 92.2 D, MCH 27.4, MCHC 29.7 L D, RDW Std Deviation 53.7 H, RDW Coeff of Aniceto 15.8 H, Plt Count 441, MPV 9.6, Immature Gran % (Auto) 2.200 H, Neut % (Auto) 64.4, Lymph % (Auto) 14.1 L, Wheeler % (Auto) 9.0, Eos % (Auto) 9.4 H, Baso % (Auto) 0.9, Absolute Neuts (auto) 11.0 H, Absolute Lymphs (auto) 2.41, Nucleated RBC % 0, Differential Comment SCANNED, Diff Path Review October foll 12/31/21 22:15: Sodium 138, Potassium 4.3, Chloride 99, Carbon Dioxide 38.0 H, Anion Gap 1 L, BUN 15, Creatinine 1.06 H, Estim Creat Clear Calc 37.93, Est GFR (MDRD) Af Amer 65, Est GFR (MDRD) Non-Af 54 L, BUN/Creatinine Ratio 14.2, Glucose 324 H, Calcium 10.0, Total Bilirubin 0.30, AST 26, ALT 20, Alkaline Phosphatase 151 H, Troponin I High Sens 10, Total Protein 7.6, Albumin 2.8 L, Globulin 4.8 H, Albumin/Globulin Ratio 0.6 L 12/31/21 22:15: Lactic Acid 2.2 H* 12/31/21 22:51: POC Glucose 309 H ABG Data ABG results: ABG 12/31/21 22:41 Specimen Type ART pH 7.16 L* Bicarbonate Actual 38.2 H Total CO2 42 Base Excess 9 H O2 Saturation 99 O2 % 50 ABG pCO2 107.7 H* ABG pO2 164 H Respiration Rate 14 Vent Mode NIV Tidal Volume 500 POC PEEP 10 Crit Call To/Read Back Yes [facility] Chest X-Ray 12/31/21 22:37 IMPRESSION: Slight improved aeration in the right upper lung with persistent atelectasis or consolidation within the right middle lobe. Electronically Signed: Kalin Ambrose MD at 23:24 EDT Reading Location ID and State: [facility] / [place] Tel , Service support , Assessment & Plan Assessment/Plan (1) Acute hypoxemic respiratory failure: (2) Carbon dioxide narcosis: PLAN: Plan The patient is a 76 y/o F w/ PMHx: Chronic anemia, Chronic hypoxic respiratory failure (4L NC), HTN, HLD, Anxiety and Depression/ADD, GERD, Celiac disease, Hx R sided breast CA, Hx NSC R lung CA stage III following w/ Dr. Crouch s/p prior chemo/radiation awaiting immunotherapy, DORY on CPAP q HS, Diabetes mellitus type II, Morbid obesity, Asthma w/ allergic rhinitis, recent admission 12/09/2021-12/17/2021 with new onset atrial fibrillation with RVR treated with IV amiodarone transitioned to home nadolol/eliquis, recurrent right pleural effusion and concern for aspiration pneumonia complicated by underlying lung cancer with history of chemotherapy and radiation awaiting immunotherapy initiation with underlying asthmatic history and chronic respiratory failure on 4 L nasal cannula with thoracentesis 12/15/2021 with removal of 1300 mL from the right chest noted to have been treated with 7 days of Zosyn with discharge on ciprofloxacin for 3 additional days per ID recommendation representing on 12/19/21 with worsened respiratory status and noted to be febrile, admitted and started on IV zosyn given Sputum Cx sensitivities w/ Pseudomonas, recurrent R sided pleural effusion with Surgery evaluation and placement of Pleurx catheter 12/29/21 with planned drainage q 7-10 days with discharge on 12/31/21 to SNF who now again re-presents to the [facility] ED on 12/31/21 with unresponsive episode at the skilled facility with respiratory failure with reportedly inappropriately connected oxygen at the facility with no responsiveness noted to be bagged by EMS and placed on the BiPAP with hospital transition. #1. Acute Encephalopathy secondary to Acute hypoxic and hypercapnic respiratory failure complicated by recent Pseudomonas pneumonia and recurrent pleural effusion right-sided with non-small cell right-sided lung cancer stage III with carbon dioxide narcosis secondary to inappropriate connecting chronic oxygen supplementation: Recent presentation with Pseudomonas growth on sputum culture placed on Zosyn at that time with thoracentesis on 12/15/2021 with demonstration of exudate but only 4% polys with unfortunately no culture sent on the fluid with transition from Zosyn to ciprofloxacin with plan 3 additional days at her discharge per ID recommendation.? Recent admission with consultation with general surgery for consideration of Pleurx placement given serial repeat needs for thoracenteses complicated by chronic anticoagulation.? Unfortunately sputum culture did result with an sensitivity to ciprofloxacin and resistant to Levaquin.? We will plan readmission to medical surgical floor, maintain on fall and aspiration precautions, notable difficulty with attempted access placement, discussed with pharmacy and ED physician and will dose with gentamicin IM x 1 with PICC placement requested with then plan to resume Zosyn therapy once PICC placed given sensitivity to this agent on recent sputum culture, will continue budesonide scheduled inhalation regimen with as needed albuterol if needed, will reconsult PT/OT/case management for discharge planning and at this point given family difficulty caring for patient likely would benefit from skilled placement. #2.? Hypokalemia: Admission K+ 3.4, magnesium level requested, supplementation given, repeat level in AM. #3.? Recent PAF with RVR: We will continue patient home amiodarone, nadolol and apixaban regimen. #4.? Chronic anemia, normocytic: Admission Hgb 9.8, baseline 8-9, stable, continue to trend. #5.? Diabetes mellitus type II: Will continue home insulin regimen, ADA diet, accu checks w/ ISS. #6.? Hypertension: Continue home regimen including nadolol, hydralazine, PRN hydralazine. #7.? Hyperlipidemia: Previously on statin therapy, from most recently is no longer taking, defer to outpatient. #8.? Chronic Asthma with chronic hypoxic respiratory failure with allergic rhinitis: Will maintain on home oxygen 4 L nasal cannula supplementation, continue home breo, PRN albuterol, HOB, IS parameters. #9.? Morbid Obesity: Weight loss and lifestyle changes encouraged, nutrition consulted. #10.? Hx Trigeminal neuralgia: Patient previously on carbamazepine regimen, not on most recent admission list. #11.? Anxiety and depression/ADHD: We will continue patient home paroxetine and methylphenidate regimen. #12.? Celiac disease: Will maintain gluten-free diet. #13.? DORY: CPAP q HS. #14.? RLS: Continue home pramipexole regimen. #15.? DVT prophylaxis: SCDs, continue home eliquis regimen. #16.? CODE status: Patient DIPTI is her daughter Jessica Matute and living will is currently in place. Initially family had preference to continue with full CODE STATUS as patient was initially going to be intubated but seem to improve on BiPAP but upon further discussions patient's healthcare power of criminal attorney her daughter and the patient once more alert decided to transition to DNR CCA, no intubation status. Advanced Care Planning Face to Face Time: 16 minutes. Charges/Coding Visit Charges Inpatient E&M: 53096 Init Hosp L3 Procedures Hospitalists Procedures: 87247 Advncd Care Plan 30 Min
[2022-01-01] VITALS (26 sets, daily range): BP systolic 87–157; BP diastolic 55–80; PULSE 65–79; RESP 14–27; TEMP 36.4–37.1; O2SAT 94–100; BMI 49.1
[2022-01-01] MEDS: 0.9% Normal Saline 1,000 ML 100 ML IV ×2 (02:39→12:47)
[2022-01-01 02:40] LABS: Reflex Lactate? Y
[2022-01-01] MEDS: Insulin Lispro 100 UNIT/ML INSULN.PEN SC ×2 (02:54→21:33)
[2022-01-01 04:24] LABS: Absolute Lymphocyte Count 0.61 X10^3/uL (0.83-4.51); Basophil# 0.03 X10^3/uL; Basophil% 0.3 % (0-1); Eosinophil# 0.42 X10^3/uL; Eosinophils% 3.9 % (0-5); Hematocrit 32.2 % (37-47); Hemoglobin 9.7 g/dL (12.0-15.0); Lymphocyte # 0.61 X10^3/ul (0.83-4.51); Lymphocyte % 5.6 % (19-41); Mean Corp Hgb Conc 30.1 g/dL (32-36); Mean Corpuscular Hgb 27.4 pg (27.0-32.0); Mean Platelet Vol. 9.2 fl (6.2-12.0); Monocyte# 0.66 X10^3/uL; Monocyte% 6.1 % (0-10); NRBC Flagged by Analyzer 0 % (0-5); Neutrophil # 9.01 X10^3/uL (2.7-7.7); Neutrophil % 83.3 % (47-70); Platelet Count 219 K/mm3 (150-450); RBC Distribution Width CV 15.6 % (11.6-14.6); RBC Distribution Width SD 52.4 fl (35.1-43.9); Red Blood Count 3.54 M/mm3 (4.2-5.4); White Blood Count 10.8 K/mm3 (4.4-11.0)
[2022-01-01 04:46] LABS: ALB/GLOB Ratio 0.6 RATIO (0.9-2.4); AST(SGOT) 19 U/L (15-37); Alanine Aminotransfer ALT/SGPT 17 U/L (13-56); Albumin, Serum 2.4 g/dL (3.2-5.0); Alkaline Phosphatase 122 U/L (45-117); Anion Gap 0 (5-15); BUN 16 mg/dL (7-18); BUN/Creat Ratio 19.5 RATIO (10-20); Calcium,Total 9.6 mg/dL (8.5-10.1); Chloride 101 mmol/L (98-107); Creatinine, Serum 0.82 mg/dL (0.55-1.02); EST Glomerular Filtration Rate 72 mL/min (>60); Est Glom Filt Rate - Afr Amer 87 mL/min (>60); Estimated Creatinine Clearance 49.04 ml/min; Globulin 4.3 g/dL (2.2-4.2); Glucose 242 mg/dL (74-106); Potassium 4.5 mmol/L (3.5-5.1); Protein, Total 6.7 g/dL (6.4-8.2); Sodium Level 138 mmol/L (136-145)
[2022-01-01 04:55] LABS: Lactic Acid 0.7 mmol/L (0.4-1.9)
[2022-01-01] MEDS: Piperacil/Tazobactam 3.375 GM Q8 PREMIX IV ×3 (05:46→21:36)
--- NOTE | 2022-01-01 06:00 | EX.PCM.CONCC ---
Assessment & Plan Assessment/Plan (1) Acute and chronic respiratory failure with hypoxia: PLAN: Plan RECOMMENDATIONS: 1. Continue PAP therapy with naps and nightly. 2. Continue supplemental oxygen at 4 L/min her baseline. 3. Continue Zosyn per ID recommendations. Stop date January 05. 4. Continue bronchodilator therapy per home regimen. 5. Continue systemic anticoagulation with Eliquis. 6. Discontinue IV fluids. 7. The patient is medically stable for transfer out of the intensive care unit. 8. Given the patient's lack of ICU needs, will sign off. Recommend consultation be placed to the patient's primary book shelver, Dr. Watters. IMPRESSIONS: 1. Acute on chronic combined respiratory failure Appears to be precipitated by inadequate oxygenation as evidenced by a malfunctioning oxygen concentrator at the [facility]dc facility leading to the development of hypoxemia and hypercapnia. The patient subsequently became encephalopathic as a consequence of her hypercarbia. This, again, required transfer back to the hospital to be initiated on noninvasive positive pressure ventilatory support. She has chronic pulmonary issues, largely unchanged from her recent admission. I would recommend continuing antibiotics per ID recommendations. The patient, at this time, has been weaned from BiPAP therapy and transition back to her baseline 4 L/min of supplemental oxygen. It is reasonable to continue bronchodilators per home regimen. The patient is followed chronically by Dr. Watters on an outpatient basis. 2. Hypercarbic encephalopathy Resolved. Secondary to #1. The patient ultimately needs to be maintained on PAP therapy with naps and nightly. Her mentation has returned back to baseline after being placed on AVAPS therapy, which will be continued while the patient is admitted to the hospital. 3. History of lung CA Continue follow-up with Dr. Crouch from oncology on an outpatient basis. 4. Morbid obesity/obstructive sleep apnea/paroxysmal atrial fibrillation/anemia/hypertension/hyperlipidemia Complicates care, management, recovery and prognosis. Continue home medications as indicated. Social work/case management will need to assist once again with placement needs. This note was generated with [employer] dictation software. It may contain incorrect words, spelling, and punctuation that were not noted in checking the note before signing. HPI Consult Data Date of Consult: 01/01/22 HPI Narrative Reason for Consultation: Respiratory failure HPI Narrative: The patient is a 76-year-old female, with a history as outlined below, who presented to the emergency department via EMS in an unresponsive state. 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 The patient was just discharged from the hospital after being admitted with a recurrent right-sided pleural effusion. The patient last had a thoracentesis on December 15, at which time, 1.3 L of gilles-colored fluid was drained. The fluid itself was lymphocyte predominant. Ironically, pleural fluid cultures were never sent. The patient has a history of recurrent pseudomonal pneumonias and is followed on an outpatient basis by Dr. Watters of pulmonary medicine. According to documentation, the patient supplemental oxygen was not appropriately applied to the patient upon her arrival to the [facility]dc facility. Short time later, she was then found to be unresponsive. The patient is supposed to be on nocturnal Pap therapy as well, but reported concerned that the machine at the nursing facility was not working appropriately. On presentation to the emergency department, the patient was noted to be afebrile and hemodynamically stable. She was placed back on noninvasive positive pressure ventilatory support. Initial arterial blood gas demonstrated a pH of 7.16 with a PCO2 of 107 and PO2 of 164. Chemistry profile was notable for a creatinine of 1.06. Lactate was elevated at 2.2. Chest imaging demonstrated chronic atelectasis with consolidation in the right middle lobe. The patient was continued on antimicrobials per prior ID recommendations. She was admitted to the medical intensive care unit, where she was maintained on AVAPS therapy with subsequent improvement in her mentation. This morning, the patient was able to be weaned from PAP therapy and placed on her baseline 4 L/min oxygen requirement. She is alert and mentating appropriately. [facility] Medical History Acute and chronic respiratory failure with hypoxia Acute bronchitis due to Rhinovirus Acute severe exacerbation of asthma Allergic rhinitis Anemia Anxiety Aspiration pneumonitis Asthma Asthmatic bronchitis Atrial fibrillation Atrial fibrillation with RVR BiPAP (biphasic positive airway pressure) dependence Body mass index (BMI) 50-59.9, adult Breast cancer Chronic diarrhea Chronic respiratory failure with hypoxia Dependence on supplemental oxygen Depression Diabetes Diabetes mellitus, type II Former smoker Former tobacco use GERD (gastroesophageal reflux disease) History of primary non-small cell carcinoma of right lung History of right breast cancer Hypertension Immunosuppressed due to chemotherapy Migraine headache Migraines Obstructive sleep apnea On home oxygen therapy Osteoarthritis Pneumonia Sleep apnea Vitamin D deficiency Home Medications cholecalciferol (vitamin D3) 1,250 mcg (50,000 unit) capsule 50,000 unit PO SUWE@0800 SUPPLEMENT 06/01/17 [History Last Taken 12/07/21] albuterol sulfate 2.5 mg/3 mL (0.083 %) solution for nebulization 2.5 mg (3 mL) inhalation Q2H PRN PRN Dyspnea, wheezing ##1 11/26/17 [Rx Last Taken 12/07/21] albuterol sulfate 90 mcg/actuation aerosol inhaler (ProAir HFA) 2 puff inhalation Q6H PRN PRN Dyspnea/Wheezing/Sob 03/25/18 [History Last Taken 12/07/21] budesonide 32 mcg/actuation nasal spray (Rhinocort Allergy) 2 puff DAILY ALLERGIES 06/12/18 [History Last Taken 12/07/21] fluticasone furoate 200 mcg-vilanterol 25 mcg/dose inhalation powder (Breo Ellipta) 2 inh inhalation DAILY sob 12/09/21 [History Last Taken 12/07/21] insulin regular hum U-500 conc 500 unit/mL(3 mL) subcut pen (Humulin R U-500 (Conc) Insulin Kwikpen) 65 unit subcut DINNER diabetes 12/09/21 [History Last Taken Unknown] nadolol 40 mg tablet 40 mg PO DAILY heart 12/09/21 [History Last Taken 12/07/21] paroxetine HCl 40 mg tablet (Paxil) 40 mg PO DAILY mood 12/09/21 [History Last Taken 12/07/21] acetaminophen 325 mg tablet (Tylenol) 650 mg PO Q6H PRN PRN Pain 1-10 Or Fever #0 tabs 12/16/21 [Rx Last Taken Unknown] amiodarone 200 mg tablet 100 mg PO BID 30 days #30 tabs 12/16/21 [Rx Last Taken Unknown] guaifenesin 1,200 mg tablet, extended release 12 hr (Mucus Relief ER) 1,200 mg PO BID #0 tabs 12/16/21 [Rx Last Taken Unknown] hydralazine 10 mg tablet 10 mg PO TID 30 days #90 tabs 12/16/21 [Rx Last Taken Unknown] apixaban 5 mg tablet 5 mg PO BID #60 tabs 12/17/21 [Rx Last Taken Unknown] nystatin 100,000 unit/gram topical powder (Nyamyc) 1 applic topical BID #0 grams 12/30/21 [Rx Last Taken Unknown] piperacillin-tazobactam 3.375 gram/50 mL dextrose(iso-os) IV piggyback (Zosyn) 3.375 g (56.25 mL) IV Q8H 5 days #843.75 mL 12/30/21 [Rx Last Taken Unknown] budesonide 0.5 mg/2 mL suspension for nebulization 0.5 mg (2 mL) inhalation BID.RT #0 mL 12/31/21 [Rx Last Taken Unknown] dextromethorphan-guaifenesin 10 mg-100 mg/5 mL oral syrup 10 ml PO Q6H PRN PRN Cough #0 mL 12/31/21 [Rx Last Taken Unknown] prednisone 10 mg tablet See Taper PO BID #21 tabs 12/31/21 [Rx Last Taken Unknown] Allergy/AdvReac Type Severity Reaction Status Date / Time adhesive tape Allergy tears skin Verified 12/19/21 18:31 cefadroxil [From Duricef] Allergy Unknown Verified 12/19/21 18:31 gluten Allergy celiac Verified 12/19/21 18:31 disease mesalamine [From Asacol] Allergy Unknown Verified 12/19/21 18:31 omalizumab [From Xolair] Allergy Unknown Verified 12/19/21 18:31 Sulfa (Sulfonamide Allergy swelling Verified 12/19/21 18:31 Antibiotics) as an infant oxycodone AdvReac Vomiting Verified 12/19/21 18:31 Family History Father Cancer Myocardial infarction Mother Cancer Metastatic breast CA Surgical History H/O rectocele repair History of lymph node dissection of right axilla History of mastectomy History of partial hysterectomy Hx of bilateral cataract extraction Hx of carpal tunnel repair Social History household members: spouse Smoking Status: Former smoker how long ago did patient quit smoking: Smoked x 2 years 1/2 ppd, quit ~ 50 years prior. alcohol intake: never substance use type: does not use ROS Constitutional Constitutional: Denies chills, fatigue or fever(s) Eyes Eyes: Denies blurry vision or change in vision ENT HEENT: Denies dizziness, dysphagia, epistaxis or headache(s) Cardiovascular Cardiovascular: Denies chest pain or dizziness Respiratory/Chest Respiratory/Chest: Reports cough, dyspnea and wheezing Gastrointestinal Gastrointestinal: Denies abdominal pain, diarrhea, nausea or vomiting Genitourinary Genitourinary: Denies difficulty urinating Musculoskeletal Musculoskeletal: Denies arthralgias or back pain Integumentary Integumentary: Denies lesions, rash or skin ulcer Neurologic Neurologic: Reports confusion Psychiatric Psychiatric: Reports anxiety and depression Endocrine Endocrinology: Denies fatigue Hematologic/Lymphatic Hematologic/Lymphatic: Denies easy bleeding or easy bruising Physical Exam Const alert and no apparent distress General Appearance: cooperative and on BiPAP Nutritional Appearance: morbidly obese HEENT normocephalic and head/scalp atraumatic Eyes PERRL and EOMs intact bilaterally Neck supple General: trachea midline Chest inspection of chest normal Chest Narrative: Stable indwelling pleural catheter present Resp Effort and Inspection: able to speak in complete sentences Auscultation: rhonchi and wheezes Cardio regular rate and regular rhythm GI normal to inspection, nondistended, normoactive bowel sounds Extremity General Extremity: edema bilateral lower extremity; Negative for clubbing Skin no rashes or lesions noted Neuro CN's II-XII intact bilaterally, moves all extremities and no focal motor deficits Psych cooperative and affect normal Lab / Micro Data Result Diagrams: 01/01/22 04:10 01/01/22 04:10 Labs: Laboratory Results - last 24 hr 12/31/21 22:15: WBC 17.1 H, RBC 4.24, Hgb 11.6 L, Hct 39.1, MCV 92.2 D, MCH 27.4, MCHC 29.7 L D, RDW Std Deviation 53.7 H, RDW Coeff of Aniceto 15.8 H, Plt Count 441, MPV 9.6, Immature Gran % (Auto) 2.200 H, Neut % (Auto) 64.4, Lymph % (Auto) 14.1 L, [place] % (Auto) 9.0, Eos % (Auto) 9.4 H, Baso % (Auto) 0.9, Absolute Neuts (auto) 11.0 H, Absolute Lymphs (auto) 2.41, Nucleated RBC % 0, Differential Comment SCANNED, Diff Path Review October12/31/21 22:15: Sodium 138, Potassium 4.3, Chloride 99, Carbon Dioxide 38.0 H, Anion Gap 1 L, BUN 15, Creatinine 1.06 H, Estim Creat Clear Calc 37.93, Est GFR (MDRD) Af Amer 65, Est GFR (MDRD) Non-Af 54 L, BUN/Creatinine Ratio 14.2, Glucose 324 H, Calcium 10.0, Total Bilirubin 0.30, AST 26, ALT 20, Alkaline Phosphatase 151 H, Troponin I High Sens 10, Total Protein 7.6, Albumin 2.8 L, Globulin 4.8 H, Albumin/Globulin Ratio 0.6 L 12/31/21 22:15: Lactic Acid 2.2 H* 12/31/21 22:51: POC Glucose 309 H 01/01/22 04:10: WBC 10.8, RBC 3.54 L, Hgb 9.7 L, Hct 32.2 L, MCV 91.0, MCH 27.4, MCHC 30.1 L, RDW Std Deviation 52.4 H, RDW Coeff of Aniceto 15.6 H, Plt Count 219, MPV 9.2, Immature Gran % (Auto) 0.800, Neut % (Auto) 83.3 H, Lymph % (Auto) 5.6 L, [place] % (Auto) 6.1, Eos % (Auto) 3.9, Baso % (Auto) 0.3, Absolute Neuts (auto) 9.0 H, Absolute Lymphs (auto) 0.61 L, Nucleated RBC % 0 01/01/22 04:10: Sodium 138, Potassium 4.5, Chloride 101, Carbon Dioxide 37.0 H, Anion Gap 0 L, BUN 16, Creatinine 0.82, Estim Creat Clear Calc 49.04, Est GFR (MDRD) Af Amer 87, Est GFR (MDRD) Non-Af 72, BUN/Creatinine Ratio 19.5, Glucose 242 H, Calcium 9.6, Total Bilirubin 0.30, AST 19, ALT 17, Alkaline Phosphatase 122 H, Total Protein 6.7, Albumin 2.4 L, Globulin 4.3 H, Albumin/Globulin Ratio 0.6 L 01/01/22 04:10: Lactic Acid 0.7 ABG Data ABG results: ABG 12/31/21 22:41 Specimen Type ART pH 7.16 L* Bicarbonate Actual 38.2 H Total CO2 42 Base Excess 9 H O2 Saturation 99 O2 % 50 ABG pCO2 107.7 H* ABG pO2 164 H Respiration Rate 14 Vent Mode NIV Tidal Volume 500 POC PEEP 10 Crit Call To/Read Back Yes Blood Gas Notified Whom [facility] Radiology Impression Chest X-Ray 12/31/21 22:37 IMPRESSION: Slight improved aeration in the right upper lung with persistent atelectasis or consolidation within the right middle lobe. Electronically Signed: Kalin Ambrose MD at 23:24 EDT , Charges/Coding Visit Charges Inpatient E&M: 03232 Init Hosp L3
[2022-01-01] MEDS: Budesonide Respules 0.5 MG/2 ML AMPUL.NEB. INHALATION (06:47)
[2022-01-01] MEDS: Albuterol 2.5 MG/3 ML VIAL.NEB. INHALATION ×2 (06:47→19:19)
[2022-01-01] MEDS: Ondansetron 4 MG/2 ML Vial IV (08:20)
[2022-01-01] MEDS: 0.9% Saline Lock 10 ML Syringe IV (08:21)
[2022-01-01 08:40] LABS: Bedside Glucose 251 mg/dL (74-106)
[2022-01-01 08:45] LABS: Bedside Glucose 143 mg/dL (74-106)
--- NOTE | 2022-01-01 09:10 | CASEMGMT ---
SW spoke with patient's daughter, and at first she said they want patient to go to [facility], but then she said she wants to confirm with her mom that this is okay. Patient's daughter then said the physician told her patient would be here a week. SW will continue to follow. ROMI will also have Cathy d/c system planning engineer make a referral to [facility] just in case. Jordana MADDOX
--- NOTE | 2022-01-01 09:17 | CASEMGMT ---
Addendum entered by Cathy Avitia 01/01/22 11:27: Jeannie reached out to Cathy alejandra/praveen specimen preparation assistant. [facility] has to decline referral. ROMI Silveira Notified. Cathy Avitia Discharge Commission Broker Original Note: Discharge Commission Broker Cathy alejandra/praveen specimen preparation assistant called Jeannie at [facility]. Jeannie will have a bed opening up. Cathy sent referral to [facility]. Family will make a choice between going back to [facility] and [facility]. Plan: [facility] vs [facility]. Cathy Avitia Discharge Commission Broker
[2022-01-01] MEDS: Amiodarone 200 MG Tablet 100 MG PO ×2 (10:35→21:26)
[2022-01-01] MEDS: Fluticasone 0.05% 1 SPRAY NASAL.SRY NASAL (10:36)
[2022-01-01] MEDS: APIXABAN 5 MG TABLET PO ×2 (10:36→21:25)
[2022-01-01] MEDS: Nadolol 40 MG Tablet PO (10:36)
[2022-01-01] MEDS: guaiFENesin 1,200 MG Tablet 1200 MG PO ×2 (10:36→21:25)
[2022-01-01] MEDS: predniSONE 10 MG Tablet 20 MG PO (10:37)
--- NOTE | 2022-01-01 11:35 | PN.HOSP_ITS ---
Documented by User: Jenna Cabrera FLOORING SALES MANAGER, FLOORING SALES MANAGER-C 01/01/22 11:46 Subjective Subjective Patient seen and examined. Feels breathing is improved. Now on 4 L nasal cannula which is baseline. Denies fever, chills. Denies significant cough. Objective Data Objective Data Vital Signs: Vital Signs Temp Pulse Resp BP Pulse Ox O2 Del Method O2 Flow Rate 98.2 F 78 17 139/55 H 98 Nasal Cannula 4 01/01/22 10:00 01/01/22 10:00 01/01/22 10:00 01/01/22 10:00 01/01/22 10:00 01/01/22 10:00 01/01/22 10:00 FiO2 30 01/01/22 06:41 Oxygen Flow Rate (L/min) 4 Oxygen Delivery Method Nasal Cannula Weight: 277 lb 1.937 oz Body Mass Index (BMI) 49.1 Intake & Output: Intake and Output for Last 24 Hours 12/30/21 12/31/21 01/01/22 23:59 23:59 23:59 Intake Total 622.5 / 622.5 Output Total 250 / 250 Balance 372.5 / 372.5 Lab / Micro Data Result Diagrams: 01/01/22 04:10 01/01/22 04:10 Labs: Laboratory Results - last 24 hr 12/31/21 22:15: WBC 17.1 H, RBC 4.24, Hgb 11.6 L, Hct 39.1, MCV 92.2 D, MCH 27.4, MCHC 29.7 L D, RDW Std Deviation 53.7 H, RDW Coeff of Aniceto 15.8 H, Plt Count 441, MPV 9.6, Immature Gran % (Auto) 2.200 H, Neut % (Auto) 64.4, Lymph % (Auto) 14.1 L, [place] % (Auto) 9.0, Eos % (Auto) 9.4 H, Baso % (Auto) 0.9, Absolute Neuts (auto) 11.0 H, Absolute Lymphs (auto) 2.41, Nucleated RBC % 0, Differential Comment SCANNED, Diff Path Review October12/31/21 22:15: Sodium 138, Potassium 4.3, Chloride 99, Carbon Dioxide 38.0 H, Anion Gap 1 L, BUN 15, Creatinine 1.06 H, Estim Creat Clear Calc 37.93, Est GFR (MDRD) Af Amer 65, Est GFR (MDRD) Non-Af 54 L, BUN/Creatinine Ratio 14.2, Glucose 324 H, Calcium 10.0, Total Bilirubin 0.30, AST 26, ALT 20, Alkaline Phosphatase 151 H, Troponin I High Sens 10, Total Protein 7.6, Albumin 2.8 L, G lobulin 4.8 H, Albumin/Globulin Ratio 0.6 L 12/31/21 22:15: Lactic Acid 2.2 H* 12/31/21 22:51: POC Glucose 309 H 01/01/22 02:53: POC Glucose 251 H 01/01/22 04:10: WBC 10.8, RBC 3.54 L, Hgb 9.7 L, Hct 32.2 L, MCV 91.0, MCH 27.4, MCHC 30.1 L, RDW Std Deviation 52.4 H, RDW Coeff of Aniceto 15.6 H, Plt Count 219, MPV 9.2, Immature Gran % (Auto) 0.800, Neut % (Auto) 83.3 H, Lymph % (Auto) 5.6 L, [place] % (Auto) 6.1, Eos % (Auto) 3.9, Baso % (Auto) 0.3, Absolute Neuts (auto) 9.0 H, Absolute Lymphs (auto) 0.61 L, Nucleated RBC % 0 01/01/22 04:10: Sodium 138, Potassium 4.5, Chloride 101, Carbon Dioxide 37.0 H, Anion Gap 0 L, BUN 16, Creatinine 0.82, Estim Creat Clear Calc 49.04, Est GFR (MDRD) Af Amer 87, Est GFR (MDRD) Non-Af 72, BUN/Creatinine Ratio 19.5, Glucose 242 H, Calcium 9.6, Total Bilirubin 0.30, AST 19, ALT 17, Alkaline Phosphatase 122 H, Total Protein 6.7, Albumin 2.4 L, Globulin 4.3 H, Albumin/Globulin Ratio 0.6 L 01/01/22 04:10: Lactic Acid 0.7 01/01/22 08:24: POC Glucose 143 H ABG Data ABG results: ABG 12/31/21 22:41 Specimen Type ART pH 7.16 L* Bicarbonate Actual 38.2 H Total CO2 42 Base Excess 9 H O2 Saturation 99 O2 % 50 ABG pCO2 107.7 H* ABG pO2 164 H Respiration Rate 14 Vent Mode NIV Tidal Volume 500 POC PEEP 10 Crit Call To/Read Back Yes Blood Gas Notified Whom [facility] Diagnostic Testing: Radiology Impression Chest X-Ray 12/31/21 22:37 IMPRESSION: Slight improved aeration in the right upper lung with persistent atelectasis or consolidation within the right middle lobe. Electronically Signed: Kalin Ambrose MD at 23:24 EDT , Physical Exam Const alert and oriented x3 Nutritional Appearance: morbidly obese HEENT normocephalic Mouth: dry mucous membranes Eyes PERRL, EOMs intact bilaterally and conjunctivae normal Neck no lymphadenopathy Resp Resp Narrative: Pleurx catheter in place Auscultation: rhonchi and wheezes Cardio regular rate, regular rhythm and no murmurs Peripheral Pulses: pulses 2+ throughout GI normal to inspection, nondistended, normoactive bowel sounds, non-tender and non-distended Extremity normal to inspection Skin no rashes or lesions noted Lesions: no lesions Rashes: no rashes Trauma: no lacerations or abrasions Neuro CN's II-XII intact bilaterally, no focal motor deficits, no sensory deficits noted and deep tendon reflexes 2+ bilaterally Psych mental status grossly normal and affect normal Assessment & Plan Assessment/Plan (1) Acute hypoxemic respiratory failure: PLAN: Plan 1.? Acute on chronic combined hypoxic and hypercapnic respiratory failure- reported malfunctioning oxygen concentrator at [facility] leading to decompensated respiratory status. Patient initially requiring BiPAP. Now on baseline oxygen 4 L nasal cannula. Recent right Pleurx catheter placement for recurrent pleural effusion. Continue IV Zosyn per prior ID recommendations for Pseudomonas pneumonia with stop date 01/05/2022. Continue aerosol regimen. 2. Metabolic encephalopathy-secondary to hypercapnia. Resolved. Continue PAP nightly. 3.? Paroxysmal atrial fibrillation with RVR- Continue amiodarone, nadolol, Eliquis. 4. Stage III lung cancer- Follows with Dr. Crouch. Previously completed chemo and radiation.? On immunotherapy. 5. Chronic hypoxic respiratory failure secondary to chronic asthma, lung cancer with recurrent pleural effusion-wears 4 L nasal cannula at baseline.? On baseline home O2 requirements.? Albuterol aerosol. 6. Type 2 diabetes [id number] with sliding scale insulin. 7. Hypertension-stable, continue current regimen. 8. Anxiety/depression/ADD- on Paxil, methylphenidate. 9. DORY-reports noncompliance with CPAP. 10. Morbid obesity-encouraged diet and lifestyle modifications. 11.? Debility-return to SNF pending acceptance. PT/OT. DVT prophylaxis-Patricia Allen This patient was seen by Jenna Cabrera, FLOORING SALES MANAGER-C under the supervision of Dr. Miramontes. Time spent examining patient, reviewing data and subsequent management of care: 14 minutes Documented by User: Dr. Mat Miramontes, 01/01/22 17:37 Objective Data Lab / Micro Data Result Diagrams: 01/01/22 04:10 01/01/22 04:10 Assessment & Plan Assessment/Plan (1) Acute hypoxemic respiratory failure: Charges/Coding Addendum Addendum: Patient was seen and examined today independently of Jenna Cabrera, she was readmitted last night through the emergency room after being discharged yesterday to a assisted facility. I was told that the patient was hy poxic at the half-way due to the fact she was not hooked up to oxygen. Patient is easily arousable today, she is on BiPAP this morning at the time my examination, she does not complain of any shortness of breath. I had a long talk with the daughter about her medical problems and discharge planning, daughter would like her to go to [facility] instead of being discharged back to the [facility] in [place]. On examination she appeared older than her stated age, she does not appear to be in any distress. Vital signs as documented. Skin warm and dry and without overt rashes. Neck without JVD, thyroid appears normal, trachea is midline, neck is supple. Lungs clear, normal air movement was noted. Heart exam notable for regular rhythm, normal sounds and absence of murmurs, rubs or gallops. Abdomen unremarkable and without evidence of organomegaly, masses, or abdominal aortic enlargement, bowel sounds are present in all 4 quadrants, no abdominal tenderness was noted. Patient was morbidly obese. Extremities nonedematous, no cyanosis was noted, no clubbing was noted. Neuro: Cranial nerves II through XII are grossly intact, no focal motor deficits were noted, sensation to light touch and pinprick is intact, motor exam 5/5 throughout. Psych: Patient is alert and oriented x3, she does not appear anxious or depressed, she does not appear agitated. Impression: #1 acute on chronic combined respiratory failure-this is corrected at this time, patient is on her baseline oxygen #2 metabolic encephalopathy secondary to hypercapnia-this is resolved at this time #3 non-small cell lung cancer-complicates care, recovery, and prognosis #4 morbid obesity-complicates care, recovery, and prognosis #5 chronic right pleural effusion secondary to non-small cell lung cancer of the right lung-Pleurx catheter will be drained at intervals #6 paroxysmal atrial fibrillation-patient is on apixaban #7 acute debility-PT and OT will continue to see the patient, she will need placement in a assisted facility #8 asthma by history-I will place the patient on a short course of prednisone, she states she cannot take Pulmicort aerosols #9 obstructive sleep apnea-patient is on BiPAP at #10 essential hypertension-patient is to remain on current medication #11 Pseudomonas pneumonia-patient is finishing up her antibiotic course for Pseudomonas pneumonia that was instituted during her last hospitalization. I reviewed Jenna Rick's progress note including her medical assessment and plan of care with the above additions endorse it. Total clinical time spent by myself addressing the patient's medical issues, reviewing the data, and collaborating with patient's care team: 30 minutes Visit Charges Inpatient E&M: 69409 Subs Hosp L3
[2022-01-01 13:23] LABS: Pathologist Review Reviewed
[2022-01-01] MEDS: hydrALAZINE 10 MG Tablet PO ×2 (13:25→21:25)
[2022-01-01 14:01] LABS: Bedside Glucose 124 mg/dL (74-106)
--- NOTE | 2022-01-01 15:07 | CASEMGMT ---
JASWINDER PLASCENCIA Readmission Note Previous Admission:? 12/19/2021-12/31/2021 Diagnosis:? Pseudomonas pneumonia DC Disposition: [facility] Current Admission? Current Diagnosis: Respiratory failure, CO2 narcosis Pt presented to ER from [facility] after oxygen not being connected properly and patient became unresponsive. Pt dc'd prior that day from hospital stay where she represented with worsened respiratory status and febrile. Pt was admitted and started on IV atb for sputum cx with pseudomonas. Pt also had recurrent right sided pleural effusions in which a pleurex cath was placed on 12/29/21 with directions for drainage every 7-10 days. Plan: DC back to SNF
[2022-01-01] MEDS: predniSONE 20 MG Tablet PO (16:27)
[2022-01-01] MEDS: Menthol/Lanolin/Calamine/Znox 113 GM Tube 1 APPLIC TOPICAL (21:26)
[2022-01-01] MEDS: Nystatin Powder 15gm Bottle 1 APPLIC TOPICAL (21:27)
[2022-01-01 23:30] LABS: Bedside Glucose 181 mg/dL (74-106)
[2022-01-02] VITALS (15 sets, daily range): BP systolic 138–151; BP diastolic 70–87; PULSE 66–91; RESP 14–25; TEMP 36.4–37; O2SAT 93–100
[2022-01-02] MEDS: Insulin Lispro 100 UNIT/ML INSULN.PEN SC ×3 (03:15→22:33)
[2022-01-02] MEDS: Piperacil/Tazobactam 3.375 GM Q8 PREMIX IV ×3 (06:07→22:23)
[2022-01-02] MEDS: hydrALAZINE 10 MG Tablet PO ×3 (06:08→22:22)
[2022-01-02 07:10] LABS: Bedside Glucose 159 mg/dL (74-106)
[2022-01-02] MEDS: Albuterol 2.5 MG/3 ML VIAL.NEB. INHALATION ×3 (07:17→19:02)
[2022-01-02] MEDS: 0.9% Normal Saline 1,000 ML 100 ML IV (07:58)
[2022-01-02] MEDS: predniSONE 20 MG Tablet PO ×2 (08:00→16:33)
[2022-01-02] MEDS: Menthol/Lanolin/Calamine/Znox 113 GM Tube 1 APPLIC TOPICAL ×4 (08:01→22:24)
[2022-01-02] MEDS: APIXABAN 5 MG TABLET PO ×2 (08:02→22:22)
[2022-01-02] MEDS: Nadolol 40 MG Tablet PO (08:02)
[2022-01-02] MEDS: Amiodarone 200 MG Tablet 100 MG PO ×2 (08:02→22:22)
[2022-01-02] MEDS: Fluticasone 0.05% 1 SPRAY NASAL.SRY NASAL (08:03)
[2022-01-02] MEDS: guaiFENesin 1,200 MG Tablet 1200 MG PO ×2 (08:04→22:22)
[2022-01-02] MEDS: Nystatin Powder 15gm Bottle 1 APPLIC TOPICAL ×2 (08:04→22:23)
--- NOTE | 2022-01-02 10:07 | CASEMGMT ---
Social Work Note SW spoke with physician, recommendation is for pt to return to a SNF. Physician states that if pt discharges home pt is ready for discharge. Physician states pt still has PICC line and 2-3 days of IV antibiotics. SW in to speak with pt and pt's daughter Santa. ROMI introduced self and role at [facility]. Santa states that there was a SW yesterday that spoke to her first thing about discharge plans and states you guys are efficient but my mom almost the other night and someone is talking to me about discharge plans. Santa states that it was very traumatic and states if she wasn't there, her mother would've . Santa states that she wants to talk to the physician first before making any discharge plans. Santa states that she is talking about home with HHC, Home with Hospice or back to a SNF. Santa states that if pt goes to a SNF, pt will not discharge to SNF in the evening. Santa states she thinks it was the B team at [facility] and again states if pt goes to SNF, pt will not discharge in the evening. Santa states that the physician told her yesterday that pt will be discharged Wednesday. SW informed Santa that today pt is stating that if pt goes home, pt is medically ready for discharge. Again, Santa states she would like to speak to the physician and then will discuss with the pt discharged plans. Santa states her and pt also talked about going to [facility]. ROMI informed Santa that SW yesterday did send a referral to [facility] and they have declined pt. Santa states she would like to know the reason. ROMI informed Santa that SW can call and ask [facility] but they do not have to give a reason. Santa asked for this worker to call [facility] and get reason why they declined pt. ROMI informed Santa that if the plan is SNF then a referral will need to be sent out today as acceptance will be needed and pre-cert will be needed again. Santa asked if pt goes home with hospice if SW will make referral. ROMI informed Santa that the physician would put a order in and then SW can make referral to Hospice. ROMI informed Santa that the hospice that [facility] typically uses is [facility]. Santa states that December 10, she provided the paperwork for Palliative and they never reached out to her or pt. ROMI informed Santa that [facility] can call Palliative to check on referral too. Santa asked for SW to check on Palliative referral. ROMI informed Santa that this worker will update the physician that she would like to speak to her. Santa states understanding. Santa states she is leaving around 12:00pm as she has an appointment in [place] to get pt's Bipap checked and then will be back around 3:00pm. ROMI updated physician that pt's daughter is requesting to speak to him. ROMI asked RN THAIS To call Palliative and check on referral. ROMI placed a call to Jeannie at [facility] and left message asking why [facility] declined pt. ROMI received call from physician. Physician stating he will speak to the daughter on the phone. SW in to speak with Santa and provided Santa with the phone to speak with physician. SW left room. SW back in to speak with Santa. Santa states it was helpful speaking to the physician and she and pt are getting ready to discuss next steps. SW to follow up with pt and Santa. Plan: ESSIE Oleary DIRECTOR OF CAREER RESOURCES, FERTILIZER MIXER
--- NOTE | 2022-01-02 10:31 | CASEMGMT ---
SW reported that pt had signed paperwork for [facility]iative Care on 12/10. Made contact with Palliative who states they have attempted to reach pt on 12/19 and 12/26. Pt has been hospitalized on those dates. Requested that pt dtr be contacted.
--- NOTE | 2022-01-02 11:05 | CASEMGMT ---
Social Work Note SW spoke with Tatum Roland who states she spoke with [facility] who states they will be surprised if family wants pt to return to [facility]. [facility] states they think pt's daughter called the Ombudsman. If pt and pt's daughter agreeable to [facility], then [facility] will need to speak with their arts administrator regarding referral. SW to continue to follow, will follow up with pt's daughter. Amparo Oleary COMMERCIAL FINANCE ANALYST, INDUSTRIAL TRACTOR DRIVER
--- NOTE | 2022-01-02 11:06 | CASEMGMT ---
Cell Tuber Hand follow-up: This manager logistic made aware of concerns related to poor oxygenation at SNF resulting in return to [facility]. Follow-up conducted with MARGA Drummond at [facility] who reports an uneventful transport to the [facility]. Run sheets reviewed and VS wnl. Follow-up with RADHA Wagner at [facility] who states squad was called to transport patient when they were unable to elevate patient's saturations above 80% despite the application of additional O2 and pt becoming unresponsive. Reported pt is back to baseline on this date at 4l/min per [place] and bipap at . Kristy states they can accommodate this O2 flow if pt were to return. Aware pt/family deciding on SNF preference at this time. SW aware and will follow-up with pt/family choice. Tatum Roland RN CM
--- NOTE | 2022-01-02 11:50 | CASEMGMT ---
Social Work Note ROMI received a call from Jeannie at [facility] stating that they declined pt based on acuity and their current census. Jeannie states that they cannot provide proper care to pt at this time. ROMI in to speak with pt. Pt states that her daughter just left to go home and make her a cheeseburger and then will be going to [place] to get pt's Bipap looked at. Pt states she told me to tell you [facility] or [facility]. SW asked pt if she meant [facility] and [facility] pt states she thinks so but to have this worker call Santa as she is in charge. Pt states that she does not want to go back to [facility]. SW offered support to pt. ROMI placed a call to pt's daughter Santa and and left message to confirm SNF choices and to get permission to send referrals. SW waiting for call back. Plan: SNF pending acceptance and pre-cert Amparo Oleary DICTATING MACHINE TRANSCRIBER, WARP DYEING TENDER
[2022-01-02 12:10] LABS: Bedside Glucose 145 mg/dL (74-106)
--- NOTE | 2022-01-02 13:11 | PN.HOSP_ITS ---
Documented by User: Jenna Cabrera NP, DISHWASHER-C 01/02/22 13:17 Subjective Subjective Patient seen and examined. Denies significant shortness of breath. Daughter at bedside. Discussing discharge options. Patient on baseline home O2. Objective Data Objective Data Vital Signs: Vital Signs Temp Pulse Resp BP Pulse Ox O2 Del Method O2 Flow Rate 97.9 F 78 20 H 145/81 H 100 Nasal Cannula 4 01/02/22 08:27 01/02/22 09:03 01/02/22 09:03 01/02/22 08:27 01/02/22 11:16 01/02/22 09:03 01/02/22 11:16 FiO2 40 01/02/22 01:05 Oxygen Flow Rate (L/min) 4 Oxygen Delivery Method Nasal Cannula Weight: 278 lb 10.629 oz Body Mass Index (BMI) 49.1 Intake & Output: Intake and Output for Last 24 Hours 12/31/21 01/01/22 01/02/22 23:59 23:59 23:59 Intake Total 2672.5 / 2672.5 100 / 100 Output Total 250 / 550 480 / 480 Balance 2422.5 / 2122.5 -380 / -380 Lab / Micro Data Result Diagrams: 01/01/22 04:10 01/01/22 04:10 Labs: Laboratory Results - last 24 hr 12/31/21 22:15: Diff Path Review Reviewed 01/01/22 13:41: POC Glucose 124 H 01/01/22 21:10: POC Glucose 181 H 01/02/22 03:42: POC Glucose 159 H 01/02/22 11:51: POC Glucose 145 H Physical Exam Const alert and oriented x3 Orientation / Consciousness: awake, oriented to person, oriented to place and oriented to time HEENT normocephalic and moist oral mucous membranes Eyes PERRL, EOMs intact bilaterally and conjunctivae normal Neck no lymphadenopathy Resp clear to auscultation bilaterally Resp Narrative: Pleurx catheter in place Auscultation: diminished lung sounds Cardio regular rate, regular rhythm and no murmurs Peripheral Pulses: pulses 2+ throughout GI normal to inspection, nondistended, normoactive bowel sounds, non-tender and non-distended Extremity normal to inspection Skin no rashes or lesions noted Lesions: no lesions Rashes: no rashes Trauma: no lacerations or abrasions Neuro CN's II-XII intact bilaterally, no focal motor deficits, no sensory deficits noted and deep tendon reflexes 2+ bilaterally Psych mental status grossly normal and affect normal Assessment & Plan Assessment/Plan (1) Acute hypoxemic respiratory failure: PLAN: Plan 1.? 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 Patient initially requiring BiPAP.? Now on baseline oxygen 4 L nasal cannula.? Recent right Pleurx catheter placement for recurrent pleural effusion.? Continue IV Zosyn per prior ID recommendations for Pseudomonas pneumonia with stop date 01/05/2022.? Continue aerosol regimen. 2.? Metabolic encephalopathy-secondary to hypercapnia.? Resolved.? Continue PAP nightly. 3.? Paroxysmal atrial fibrillation with RVR- Continue amiodarone, nadolol, Eliquis. 4. Stage III lung cancer- Follows with Dr. Crouch. Previously completed chemo and radiation.? On immunotherapy. 5. Chronic hypoxic respiratory failure secondary to chronic asthma, lung cancer with recurrent pleural effusion-wears 4 L nasal cannula at baseline.? On baseline home O2 requirements.? Albuterol aerosol. 6. Type 2 diabetes [id number] with sliding scale insulin. 7. Hypertension-stable, continue current regimen. 8. Anxiety/depression/ADD- on Paxil, methylphenidate. 9. DORY-reports noncompliance with CPAP. 10. Morbid obesity-encouraged diet and lifestyle modifications. 11.? Debility-return to SNF pending acceptance. PT/OT. DVT prophylaxis-SCDs, Eliquis This patient was seen by HIRAL Alarcon under the supervision of Dr. Miramontes. Discharge planning: SNF pending acceptance. Time spent examining patient, reviewing data and subsequent management of care: 12 minutes Documented by User: Dr. Mat Miramontes DO 01/02/22 15:02 Objective Data Lab / Micro Data Result Diagrams: 01/01/22 04:10 01/01/22 04:10 Assessment & Plan Assessment/Plan (1) Acute hypoxemic respiratory failure: Charges/Coding Addendum Addendum: Examined and filler Jenna Cabrera today, she was sleeping in her bed but was not using her BiPAP, nursing states that she takes it off frequently during the night because of some comfortable. Talked briefly with her daughter today, [facility] has declined to take the patient, the daughter has been asked to pick another retirement for the patient to go to, I suggested that she consider going back to the [facility]. Social work is talking with the daughter to confirm her choice of custodial facility. On examination she appeared older than her stated age, she does not appear to be in any distress. Vital signs as documented. Skin warm and dry and without overt rashes. Neck without JVD, thyroid appears normal, trachea is midline, neck is supple. Lungs clear, normal air movement was noted. Heart exam notable for regular rhythm, normal sounds and absence of murmurs, rubs or gallops. Abdomen unremarkable and without evidence of organomegaly, masses, or abdominal aortic enlargement, bowel sounds are present in all 4 quadrants, no abdominal tenderness was noted. Patient is morbidly obese. Extremities nonedematous, no cyanosis was noted, no clubbing was noted. Neuro: Cranial nerves II through XII are grossly intact, no focal motor deficits were noted, sensation to light touch and pinprick is intact, motor exam 5/5 throughout. Psych: Patient is alert and oriented x3, she does not appear anxious or depressed, she does not appear agitated. #1 acute on chronic combined respiratory failure-this is corrected at this time, patient is on her baseline oxygen #2 metabolic encephalopathy secondary to hypercapnia-this is resolved at this time #3 non-small cell lung cancer-complicates care, recovery, and prognosis #4 morbid obesity-complicates care, recovery, and prognosis #5 chronic right pleural effusion secondary to non-small cell lung cancer of the right lung-Pleurx catheter will be drained at intervals #6 paroxysmal atrial fibrillation-patient is on apixaban #7 acute debility-PT and OT will continue to see the patient, she will need placement in a custodial facility #8 asthma by history-patient will remain on prednisone at this time, I will decrease the dose to starting tomorrow #9 obstructive sleep apnea-patient is on BiPAP while sleeping, patient is noncompliant with this at times #10 essential hypertension-patient is to remain on current medication #11 Pseudomonas pneumonia-patient is finishing up her antibiotic course for Pseudomonas pneumonia that was instituted during her last hospitalization. I have reviewed Jenna Cabrera's progress note including her medical assessment and plan of care and with the above additions endorse it. Total clinical time spent by myself addressing the patient's medical issues, reviewing the data, and collaborating with the patient's care team: 24 minutes Visit Charges Inpatient E&M: 61297 Subs Hosp L3
--- NOTE | 2022-01-02 14:40 | CASEMGMT ---
Social Work Note ROMI placed a call to pt's daughter Santa again regarding SNF options. Santa states she would like to keep [facility] on the table but states she would like a referral sent to [facility] and [facility]. Santa states that if [facility] or [facility] is able to accept, she would like to send a family member out to the facilities to check them out. Santa states that if pt has to return to [facility], then she will be speaking with their adminstrator to make sure the events that happened will not happen again. ROMI informed Santa that this worker will send referrals to [facility] and [facility] and keep her updated. ROMI also updated Santa that this worker did call [facility] and informed Santa the reason that [facility] stated as to why they denied pt. Santa states understanding. Referrals to be sent to [facility] and [facility]. Plan: SNF pending acceptance and pre-cert Amparo Oleary TUBING MACHINE TENDER, GUN STOCK CHECKER
--- NOTE | 2022-01-02 15:08 | CASEMGMT ---
JASWINDER PLASCENCIA updated to fax referrals to [facility] and [facility] per family's requests. JASWINDER PLASCENCIA faxed and called referrals to both facilities at this time. JASWINDER PLASCENCIA updated ROMI Oleary regarding faxed referrals.
[2022-01-02 17:00] LABS: Bedside Glucose 210 mg/dL (74-106)
[2022-01-02 23:30] LABS: Bedside Glucose 187 mg/dL (74-106)
[2022-01-03] VITALS (13 sets, daily range): BP systolic 130–159; BP diastolic 66–91; PULSE 68–89; RESP 14–26; TEMP 37–37.7; O2SAT 94–100
[2022-01-03] MEDS: Piperacil/Tazobactam 3.375 GM Q8 PREMIX IV (05:16)
[2022-01-03] MEDS: hydrALAZINE 10 MG Tablet PO ×3 (06:56→21:37)
[2022-01-03] MEDS: Albuterol 2.5 MG/3 ML VIAL.NEB. INHALATION ×3 (07:18→18:46)
[2022-01-03 07:56] LABS: Bedside Glucose 144 mg/dL (74-106)
[2022-01-03] MEDS: predniSONE 20 MG Tablet PO (08:13)
[2022-01-03] MEDS: Acetaminophen 325 MG Tablet 650 MG PO ×2 (08:30→17:36)
--- NOTE | 2022-01-03 10:22 | PCM.PN.HOSP ---
Documented by User: Jenna Cabrera NP, FIBERGLASS AUTOBODY REPAIRER-C 01/03/22 10:28 Subjective Subjective Patient seen and examined. Complains of fever this morning. Denies increased shortness of breath. States she didn't sleep well last night. Objective Data Objective Data Vital Signs: Vital Signs Temp Pulse Resp BP Pulse Ox O2 Del Method O2 Flow Rate 99.9 F H 77 18 152/79 H 99 Nasal Cannula 4 01/03/22 08:16 01/03/22 08:16 01/03/22 08:16 01/03/22 08:16 01/03/22 08:16 01/03/22 08:20 01/03/22 08:20 FiO2 30 01/03/22 05:01 Oxygen Flow Rate (L/min) 4 Oxygen Delivery Method Nasal Cannula Weight: 280 lb 6.848 oz Body Mass Index (BMI) 49.1 Intake & Output: Intake and Output for Last 24 Hours 01/01/22 01/02/22 01/03/22 23:59 23:59 23:59 Intake Total 2672.5 / 2672.5 1998 50 / 50 Output Total 250 / 550 480 / 980 850 / 850 Balance 2422.5 / 2122.5 1519 / 1019 -800 / -800 Lab / Micro Data Result Diagrams: 01/01/22 04:10 01/01/22 04:10 Labs: Laboratory Results - last 24 hr 01/02/22 11:51: POC Glucose 145 H 01/02/22 16:31: POC Glucose 210 H 01/02/22 22:32: POC Glucose 187 H 01/03/22 07:01: POC Glucose 144 H Physical Exam Const alert and oriented x3 Nutritional Appearance: obese HEENT normocephalic and moist oral mucous membranes Eyes PERRL, EOMs intact bilaterally and conjunctivae normal Neck no lymphadenopathy Resp clear to auscultation bilaterally Resp Narrative: Pleurx catheter in place Auscultation: diminished lung sounds Cardio regular rate, regular rhythm and no murmurs Peripheral Pulses: pulses 2+ throughout GI normal to inspection, nondistended, normoactive bowel sounds, non-tender and non-distended Extremity normal to inspection Skin no rashes or lesions noted Lesions: no lesions Rashes: no rashes Trauma: no lacerations or abrasions Neuro CN's II-XII intact bilaterally, no focal motor deficits, no sensory deficits noted and deep tendon reflexes 2+ bilaterally Psych mental status grossly normal and affect normal Assessment & Plan Assessment/Plan (1) Acute and chronic respiratory failure with hypoxia: PLAN: Plan 1.? 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 Patient initially requiring BiPAP.? Now on baseline oxygen 4 L nasal cannula.? Recent right Pleurx catheter placement for recurrent pleural effusion.? Continue IV Zosyn per prior ID recommendations for Pseudomonas pneumonia with stop date 01/05/2022.? Continue aerosol regimen. 2.? Metabolic encephalopathy-secondary to hypercapnia.? Resolved.? Continue PAP nightly. 3.? Paroxysmal atrial fibrillation with RVR- Continue amiodarone, nadolol, Eliquis. 4. Stage III lung cancer- Follows with Dr. Crouch. Previously completed chemo and radiation.? On immunotherapy. 5. Chronic hypoxic respiratory failure secondary to chronic asthma, lung cancer with recurrent pleural effusion-wears 4 L nasal cannula at baseline.? On baseline home O2 requirements.? Albuterol aerosol. 6. Type 2 diabetes [id number] with sliding scale insulin. 7. Hypertension-stable, continue current regimen. 8. Anxiety/depression/ADD- on Paxil, methylphenidate. 9. DORY-reports noncompliance with CPAP. 10. Morbid obesity-encouraged diet and lifestyle modifications. 11.? Debility-return to SNF pending acceptance. PT/OT. DVT prophylaxis-SCDs, Eliquis This patient was seen by Jenna Cabrera NP-C under the supervision of Dr. Miramontes. Discharge planning: SNF pending acceptance. Time spent examining patient, reviewing data and subsequent management of care: 12 minutes Documented by User: Dr. Mat Miramontes DO 01/03/22 12:11 Objective Data Lab / Micro Data Result Diagrams: 01/01/22 04:10 01/01/22 04:10 Assessment & Plan Assessment/Plan (1) Acute and chronic respiratory failure with hypoxia: Charges/Coding Addendum Addendum: Seen and examined independently of Jenna Cabrera, she is lying in bed and alert, she complains of no shortness of breath at this time, oxygen requirement is 4 L On examination she appeared older than her stated age, she does not appear to be in any distress. Vital signs as documented. Skin warm and dry and without overt rashes. Neck without JVD, thyroid appears normal, trachea is midline, neck is supple. Lungs clear, normal air movement was noted. Heart exam notable for regular rhythm, normal sounds and absence of murmurs, rubs or gallops. Abdomen unremarkable and without evidence of organomegaly, masses, or abdominal aortic enlargement, bowel sounds are present in all 4 quadrants, no abdominal tenderness was noted.? Patient is morbidly obese.? Extremities nonedematous, no cyanosis was noted, no clubbing was noted.? Neuro: Cranial nerves II through XII are grossly intact, no focal motor deficits were noted, sensation to light touch and pinprick is intact, motor exam 5/5 throughout.? Psych: Patient is alert and oriented x3, she does not appear anxious or depressed, she does not appear agitated. #1 acute on chronic combined respiratory failure-this is corrected at this time, patient is on her baseline oxygen #2 metabolic encephalopathy secondary to hypercapnia-this is resolved at this time #3 non-small cell lung cancer-complicates care, recovery, and prognosis #4 morbid obesity-complicates care, recovery, and prognosis #5 chronic right pleural effusion secondary to non-small cell lung cancer of the right lung-Pleurx catheter will be drained at intervals #6 paroxysmal atrial fibrillation-patient is on apixaban #7 acute debility-PT and OT will continue to see the patient, she will need placement in a long term facility #8 asthma by history-patient will remain on prednisone at this time, I will decrease the dose #9 obstructive sleep apnea-patient is on BiPAP while sleeping, patient is noncompliant with this at times #10 essential hypertension-patient is to remain on current medication #11 Pseudomonas pneumonia-patient is finishing up her antibiotic course for Pseudomonas pneumonia that was instituted during her last hospitalization. I have reviewed Jenna Cabrera's progress note including her medical assessment and plan of care and with the above additions endorse it. Total clinical time spent by myself addressing the patient's medical issues, reviewing the data, and collaborating with the patient's care team: 25-minute Visit Charges Inpatient E&M: 24782 [facility] Hosp L3
[2022-01-03] MEDS: APIXABAN 5 MG TABLET PO ×2 (11:11→21:52)
[2022-01-03] MEDS: Menthol/Lanolin/Calamine/Znox 113 GM Tube 1 APPLIC TOPICAL ×4 (11:11→21:36)
[2022-01-03] MEDS: Amiodarone 200 MG Tablet 100 MG PO ×2 (11:12→21:37)
[2022-01-03] MEDS: Nadolol 40 MG Tablet PO (11:12)
[2022-01-03] MEDS: Fluticasone 0.05% 1 SPRAY NASAL.SRY NASAL (11:13)
[2022-01-03] MEDS: guaiFENesin 1,200 MG Tablet 1200 MG PO ×2 (11:13→21:38)
[2022-01-03] MEDS: Nystatin Powder 15gm Bottle 1 APPLIC TOPICAL ×2 (11:13→21:37)
[2022-01-03 11:55] LABS: Bedside Glucose 158 mg/dL (74-106)
[2022-01-03] MEDS: Insulin Lispro 100 UNIT/ML INSULN.PEN SC ×3 (12:02→21:40)
[2022-01-03 16:40] LABS: Bedside Glucose 293 mg/dL (74-106)
[2022-01-03] MEDS: 0.9% Saline Lock 10 ML Syringe IV (17:36)
[2022-01-03 22:45] LABS: Bedside Glucose 188 mg/dL (74-106)
[2022-01-04] VITALS (17 sets, daily range): BP systolic 102–147; BP diastolic 36–74; PULSE 65–87; RESP 14–26; TEMP 36.7–37.9; O2SAT 95–100
[2022-01-04 04:51] LABS: Absolute Lymphocyte Count 0.77 X10^3/uL (0.83-4.51); Absolute Neutrophil Count 8.5 X10^3/uL (2.0-7.7); Basophil# 0.04 X10^3/uL; Basophil% 0.4 % (0-1); Eosinophil# 0.11 X10^3/uL; Eosinophils% 1.1 % (0-5); Hematocrit 32.5 % (37-47); Lymphocyte # 0.77 X10^3/ul (0.83-4.51); Lymphocyte % 7.5 % (19-41); Mean Corp Hgb Conc 30.8 g/dL (32-36); Mean Corpuscular Hgb 27.5 pg (27.0-32.0); Mean Corpuscular Volume 89.3 fL (81-99); Mean Platelet Vol. 9.4 fl (6.2-12.0); Monocyte# 0.79 X10^3/uL; Monocyte% 7.7 % (0-10); NRBC Flagged by Analyzer 0 % (0-5); Neutrophil # 8.46 X10^3/uL (2.7-7.7); Neutrophil % 82.8 % (47-70); Platelet Count 163 K/mm3 (150-450); RBC Distribution Width CV 15.5 % (11.6-14.6); RBC Distribution Width SD 50.5 fl (35.1-43.9); Red Blood Count 3.64 M/mm3 (4.2-5.4); White Blood Count 10.2 K/mm3 (4.4-11.0)
[2022-01-04 05:15] LABS: Anion Gap 2 (5-15); BUN 16 mg/dL (7-18); BUN/Creat Ratio 26.5 RATIO (10-20); Calcium,Total 9.3 mg/dL (8.5-10.1); Chloride 102 mmol/L (98-107); EST Glomerular Filtration Rate 103 mL/min (>60); Est Glom Filt Rate - Afr Amer 124 mL/min (>60); Estimated Creatinine Clearance 40.21 ml/min; Glucose 111 mg/dL (74-106); Potassium 3.7 mmol/L (3.5-5.1); Sodium Level 140 mmol/L (136-145)
[2022-01-04] MEDS: hydrALAZINE 10 MG Tablet PO ×3 (06:35→22:00)
[2022-01-04 07:00] LABS: Bedside Glucose 111 mg/dL (74-106)
[2022-01-04] MEDS: Albuterol 2.5 MG/3 ML VIAL.NEB. INHALATION ×3 (07:10→19:42)
[2022-01-04] MEDS: predniSONE 20 MG Tablet PO (08:40)
[2022-01-04] MEDS: Ergocalciferol 1.25 MG (50, 000 UNIT) Capsule PO (08:40)
[2022-01-04] MEDS: Acetaminophen 325 MG Tablet 650 MG PO ×2 (08:42→22:08)
--- NOTE | 2022-01-04 10:27 | PN.HOSP_ITS ---
Documented by User: Jenna Cabrera NP, SR. UNIX SYSTEM ADMINISTRATOR-C 01/04/22 10:32 Subjective Subjective Patient seen and examined. Reports continued intermittent low-grade fever. Intermittent nonproductive harsh cough as well. Remains on baseline supplemental oxygen. Objective Data Objective Data Vital Signs: Vital Signs Temp Pulse Resp BP Pulse Ox O2 Del Method O2 Flow Rate 99.4 F H 65 22 H 142/45 H 95 Nasal Cannula 4 01/04/22 06:27 01/04/22 07:10 01/04/22 07:10 01/04/22 06:35 01/04/22 07:10 01/04/22 07:10 01/04/22 07:10 FiO2 30 01/04/22 04:32 Oxygen Flow Rate (L/min) 4 Oxygen Delivery Method Nasal Cannula Weight: 281 lb 1.43 oz Body Mass Index (BMI) 49.1 Intake & Output: Intake and Output for Last 24 Hours 01/02/22 01/03/22 01/04/22 23:59 23:59 23:59 Intake Total 1998 1250 / 1250 200 / 200 Output Total 480 / 980 1650 / 1650 400 / 400 Balance 1519 / 1019 -400 / -400 -200 / -200 Lab / Micro Data Result Diagrams: 01/04/22 04:13 01/04/22 04:13 Labs: Laboratory Results - last 24 hr 01/03/22 11:34: POC Glucose 158 H 01/03/22 16:19: POC Glucose 293 H 01/03/22 21:40: POC Glucose 188 H 01/04/22 04:13: WBC 10.2, RBC 3.64 L, Hgb 10.0 L, Hct 32.5 L, MCV 89.3, MCH 27.5, MCHC 30.8 L, RDW Std Deviation 50.5 H, RDW Coeff of Aniceto 15.5 H, Plt Count 163, MPV 9.4, Immature Gran % (Auto) 0.500, Neut % (Auto) 82.8 H, Lymph % (Auto) 7.5 L, Pepin % (Auto) 7.7, Eos % (Auto) 1.1, Baso % (Auto) 0.4, Absolute Neuts (auto) 8.5 H, Absolute Lymphs (auto) 0.77 L, Nucleated RBC % 0 01/04/22 04:13: Sodium 140, Potassium 3.7, Chloride 102, Carbon Dioxide 36.0 H, Anion Gap 2 L, BUN 16, Creatinine 0.60, Estim Creat Clear Calc 40.21, Est GFR (MDRD) Af Amer 124, Est GFR (MDRD) Non-Af 103, BUN/Creatinine Ratio 26.5 H, Glucose 111 H, Calcium 9.3 01/04/22 06:31: POC Glucose 111 H Physical Exam Const alert and oriented x3 HEENT normocephalic and moist oral mucous membranes Eyes PERRL, EOMs intact bilaterally and conjunctivae normal Neck no lymphadenopathy Resp clear to auscultation bilaterally Resp Narrative: Pleurx catheter in place Auscultation: diminished lung sounds Cardio regular rate, regular rhythm and no murmurs Peripheral Pulses: pulses 2+ throughout GI normal to inspection, nondistended, normoactive bowel sounds, non-tender and non-distended Extremity normal to inspection Skin no rashes or lesions noted Lesions: no lesions Rashes: no rashes Trauma: no lacerations or abrasions Neuro CN's II-XII intact bilaterally, no focal motor deficits, no sensory deficits noted and deep tendon reflexes 2+ bilaterally Psych mental status grossly normal and affect normal Assessment & Plan Assessment/Plan (1) Acute hypoxemic respiratory failure: PLAN: Plan 1.? 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 Patient initially requiring BiPAP.? Now on baseline oxygen 4 L nasal cannula.? Recent right Pleurx catheter placement for recurrent pleural effusion.? Continue IV Zosyn per prior ID recommendations for Pseudomonas pneumonia with stop date 01/05/2022.? Continue aerosol regimen. Plan for Pleurx catheter drainage prior to DC to SNF. 2.? Metabolic encephalopathy-secondary to hypercapnia.? Resolved.? Continue PAP nightly. 3.? Paroxysmal atrial fibrillation with RVR- Continue amiodarone, nadolol, Eliquis. 4. Stage III lung cancer- Follows with Dr. Crouch. Previously completed chemo and radiation.? On immunotherapy. 5. Chronic hypoxic respiratory failure secondary to chronic asthma, lung cancer with recurrent pleural effusion-wears 4 L nasal cannula at baseline.? On baseline home O2 requirements.? Albuterol aerosol. 6. Type 2 diabetes byojasrb-Annn-Krnlz with sliding scale insulin. 7. Hypertension-stable, continue current regimen. 8. Anxiety/depression/ADD- on Paxil, methylphenidate. 9. DORY-reports noncompliance with CPAP. 10. Morbid obesity-encouraged diet and lifestyle modifications. 11.? Debility-return to SNF pending acceptance. PT/OT. DVT prophylaxis-Patricia Allen This patient was seen by Jenna Cabrera, SR. UNIX SYSTEM ADMINISTRATOR-C under the supervision of Dr. Miramontes. Discharge planning: SNF pending acceptance. Time spent examining patient, reviewing data and subsequent management of care: 12 minutes Documented by User: Dr. Mat Miramontes, 01/04/22 14:43 Objective Data Lab / Micro Data Result Diagrams: 01/04/22 04:13 01/04/22 04:13 Assessment & Plan Assessment/Plan (1) Acute hypoxemic respiratory failure: Charges/Coding Addendum Addendum: Patient was seen and examined independently of Jenna Cabrera, overall she remained stable at this time, I talked briefly with her daughter on the phone, her daughter is considering to asked the patient to go to TCU and pay for part of the expense out of her own pocket, I told her that I felt the best course of action would be for the patient to go to a longterm facility where they would pay the entire stay. I asked her to talk with social sciences instructor tomorrow about her request. Patient is stable on 4 L nasal cannula oxygen at this time. #1 acute on chronic combined respiratory failure-this is corrected at this time, patient is on her baseline oxygen #2 metabolic encephalopathy secondary to hypercapnia-this is resolved at this time #3 non-small cell lung cancer-complicates care, recovery, and prognosis #4 morbid obesity-complicates care, recovery, and prognosis #5 chronic right pleural effusion secondary to non-small cell lung cancer of the right lung-Pleurx catheter will be drained at intervals #6 paroxysmal atrial fibrillation-patient is on apixaban #7 acute debility-PT and OT will continue to see the patient, she will need placement in a longterm facility #8 asthma by history-patient will remain on prednisone at this time, I will decrease the dose #9 obstructive sleep apnea-patient is on BiPAP while sleeping, patient is noncompliant with this at times #10 essential hypertension-patient is to remain on current medication #11 Pseudomonas pneumonia-patient is finishing up her antibiotic course for Pseudomonas pneumonia that was instituted during her last hospitalization. The last full day of the patient's antibiotic treatment will be January 05, 2022, after that day her Zosyn can be stopped. I have reviewed Jenna Cabrera's progress note including her medical assessment and plan of care with the above additions endorse it. Total clinical time spent by myself addressing the patient's medical issues, reviewing the data, and collaborating with the patient's care team: 20 minutes Visit Charges Inpatient E&M: 69520 Subs Hosp L2
[2022-01-04] MEDS: Menthol/Lanolin/Calamine/Znox 113 GM Tube 1 APPLIC TOPICAL ×4 (10:44→22:01)
[2022-01-04] MEDS: Amiodarone 200 MG Tablet 100 MG PO ×2 (10:45→22:01)
[2022-01-04] MEDS: guaiFENesin 1,200 MG Tablet 1200 MG PO ×2 (10:54→22:02)
[2022-01-04] MEDS: APIXABAN 5 MG TABLET PO ×2 (10:54→22:02)
[2022-01-04] MEDS: Nystatin Powder 15gm Bottle 1 APPLIC TOPICAL ×2 (10:55→22:03)
[2022-01-04] MEDS: Nadolol 40 MG Tablet PO (10:55)
[2022-01-04 12:15] LABS: Bedside Glucose 283 mg/dL (74-106)
[2022-01-04] MEDS: Insulin Lispro 100 UNIT/ML INSULN.PEN SC ×3 (12:35→22:07)
[2022-01-04 17:35] LABS: Bedside Glucose 284 mg/dL (74-106)
[2022-01-04] MEDS: 0.9% Saline Lock 10 ML Syringe IV (22:07)
[2022-01-04 22:36] LABS: Bedside Glucose 206 mg/dL (74-106)
[2022-01-05] VITALS (14 sets, daily range): BP systolic 130–152; BP diastolic 52–73; PULSE 71–86; RESP 14–28; TEMP 36.8–37.9; O2SAT 92–100
[2022-01-05] MEDS: hydrALAZINE 10 MG Tablet PO ×3 (05:34→21:33)
[2022-01-05] MEDS: Albuterol 2.5 MG/3 ML VIAL.NEB. INHALATION ×3 (06:28→19:05)
[2022-01-05 06:55] LABS: Bedside Glucose 129 mg/dL (74-106)
[2022-01-05] MEDS: predniSONE 20 MG Tablet PO (09:14)
[2022-01-05] MEDS: Nadolol 40 MG Tablet PO (09:15)
[2022-01-05] MEDS: APIXABAN 5 MG TABLET PO ×2 (09:15→21:33)
[2022-01-05] MEDS: guaiFENesin 1,200 MG Tablet 1200 MG PO ×2 (09:15→21:33)
[2022-01-05] MEDS: Amiodarone 200 MG Tablet 100 MG PO ×2 (09:15→21:33)
[2022-01-05] MEDS: Menthol/Lanolin/Calamine/Znox 113 GM Tube 1 APPLIC TOPICAL ×4 (09:18→21:33)
[2022-01-05] MEDS: Nystatin Powder 15gm Bottle 1 APPLIC TOPICAL ×2 (09:18→21:33)
--- NOTE | 2022-01-05 09:37 | CASEMGMT ---
Addendum entered by Eli Haywood 01/05/22 13:07: ROMI reached out to Shayla at [facility] after noticing fax error again. Shayla stated they've just found the first referral and that she will look it over and call back once they make a determination. Addendum entered by Eli Haywood 01/05/22 12:24: ROMI called [facility] again to check on referral. Was able to speak to medical billing coordinator, Kishore. Kishore reports they have no open beds available. ROMI then called [facility] once again. Spoke with Shayla again. Shayla reports they never received the referral and provided ROMI with correct fax number to re-send referral. New referral was sent directly following phone call. Original Note: Social Work SW called [facility], left a message for Vandana requesting her to call back with an update on the referral for pt. ROMI also called Shayla at [facility] to check on referral for pt. Shayla stated she was on vacation last week and will have to speak with her director to get updates on the status of pt's referral. ROMI provided Shayla with a callback number. MICHAEL Williamson
--- NOTE | 2022-01-05 10:26 | PCM.PN.HOSP ---
Documented by User: Jenna Cabrera NP, REPAIR COIL WINDER-C 01/05/22 10:30 Subjective Subjective Patient seen and examined. Resting comfortably in bed. Continues to have low-grade fever. Remains on baseline home O2. Objective Data Objective Data Vital Signs: Vital Signs Temp Pulse Resp BP Pulse Ox O2 Del Method O2 Flow Rate 99.2 F H 75 18 143/65 H 92 Nasal Cannula 4 01/05/22 08:12 01/05/22 08:12 01/05/22 08:12 01/05/22 08:12 01/05/22 08:12 01/05/22 08:12 01/05/22 08:12 FiO2 30 01/05/22 06:28 Oxygen Flow Rate (L/min) 4 Oxygen Delivery Method Nasal Cannula Weight: 278 lb Body Mass Index (BMI) 49.1 Intake & Output: Intake and Output for Last 24 Hours 01/03/22 01/04/22 01/05/22 23:59 23:59 23:59 Intake Total 1250 / 1250 1250 / 1250 300 / 300 Output Total 1650 / 1650 1000 / 1250 750 / 750 Balance -400 / -400 250 / 0 -450 / -450 Lab / Micro Data Result Diagrams: 01/04/22 04:13 01/04/22 04:13 Labs: Laboratory Results - last 24 hr 01/04/22 11:49: POC Glucose 283 H 01/04/22 17:16: POC Glucose 284 H 01/04/22 22:04: POC Glucose 206 H 01/05/22 06:35: POC Glucose 129 H Physical Exam Const alert and oriented x3 Nutritional Appearance: morbidly obese HEENT normocephalic and moist oral mucous membranes Eyes PERRL, EOMs intact bilaterally and conjunctivae normal Neck no lymphadenopathy Resp clear to auscultation bilaterally Resp Narrative: Pleurx catheter in place. Auscultation: diminished lung sounds Cardio regular rate, regular rhythm and no murmurs Peripheral Pulses: pulses 2+ throughout GI normal to inspection, nondistended, normoactive bowel sounds, non-tender and non-distended Extremity normal to inspection Skin no rashes or lesions noted Lesions: no lesions Rashes: no rashes Trauma: no lacerations or abrasions Neuro CN's II-XII intact bilaterally, no focal motor deficits, no sensory deficits noted and deep tendon reflexes 2+ bilaterally Psych mental status grossly normal and affect normal Assessment & Plan Assessment/Plan (1) Acute and chronic respiratory failure with hypoxia: PLAN: Plan 1.? 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 Patient initially requiring BiPAP.? Now on baseline oxygen 4 L nasal cannula.? Recent right Pleurx catheter placement for recurrent pleural effusion.? Continue IV Zosyn per prior ID recommendations for Pseudomonas pneumonia with stop date 01/05/2022.? Continue aerosol regimen.? Plan for Pleurx catheter drainage prior to DC to SNF. 2.? Metabolic encephalopathy-secondary to hypercapnia.? Resolved.? Continue PAP nightly. 3.? Paroxysmal atrial fibrillation with RVR- Continue amiodarone, nadolol, Eliquis. 4. Stage III lung cancer- Follows with Dr. Crouch. Previously completed chemo and radiation.? On immunotherapy. 5. Chronic hypoxic respiratory failure secondary to chronic asthma, lung cancer with recurrent pleural effusion-wears 4 L nasal cannula at baseline.? On baseline home O2 requirements.? Albuterol aerosol. 6. Type 2 diabetes lgsvnuyj-Vust-Xfkic with sliding scale insulin. 7. Hypertension-stable, continue current regimen. 8. Anxiety/depression/ADD- on Paxil, methylphenidate. 9. DORY-reports noncompliance with CPAP. 10. Morbid obesity-encouraged diet and lifestyle modifications. 11.? Debility-return to SNF pending acceptance. PT/OT. DVT prophylaxis-SCDs, Eliquis This patient was seen by HIRAL Alarcon under the supervision of Dr. Childress. Discharge planning: SNF pending acceptance. Time spent examining patient, reviewing data and subsequent management of care: 14 minutes Documented by User: Dr. Isreal Childress MD 01/05/22 12:01 Objective Data Lab / Micro Data Result Diagrams: 01/04/22 04:13 01/04/22 04:13 Assessment & Plan Assessment/Plan (1) Acute and chronic respiratory failure with hypoxia: Charges/Coding Addendum Addendum: Addendum: Dr. Childress I personally examined the patient and reviewed the chart. I agree with the above. 76-year-old female has been in the hospital several times over the last several weeks secondary to a right-sided pleural effusion. She does have lung cancer that appears to have reactivated on PET scan and she did have her pleural effusion drained. Since cytology was negative for malignancy she did have a Pleurx catheter placed and she had been discharged to SNF however it that point she was not hooked up to oxygen while there and came back and hypoxic into the ICU for monitoring. Family would like to try to find a different senior care at this time which we are working on. She otherwise appears to be stable with no changes going on with her health at this time other than needing to be periodically drained with Pleurx catheter. Clinical time spent on all aspects of patient care: 20 minutes Visit Charges Inpatient E&M: 50097 Subs Hosp L2
[2022-01-05] MEDS: Acetaminophen 325 MG Tablet 650 MG PO (11:16)
[2022-01-05] MEDS: Insulin Lispro 100 UNIT/ML INSULN.PEN SC ×3 (11:16→21:34)
[2022-01-05 11:41] LABS: Bedside Glucose 179 mg/dL (74-106)
--- NOTE | 2022-01-05 13:58 | CASEMGMT ---
Addendum entered by Eli Haywood 01/05/22 16:03: ROMI called Shayla back at [facility] once again to discuss option of family bringing meds. Shayla states if pt is just taking a medication she does not see it being a problem as long as family can bring the meds from home. She reports she will need to ask her admin and get back to this SW after. This SW left call back number. Original Note: Social Work SW received call from Shayla at [facility]. She states the facility has concerns that if pt is continuing to follow up for autoimmune treatment that they will not be able to accept her. SW to update family. SW Brianna suggested to call back and ask if pt was able to bring her own meds for this if the facility would still take her. This ROMI called Shayla back but received VM. ROMI left message requesting Shayla call back to inform if they can take pt if she brings her own meds from home. MICHAEL Williamson
[2022-01-05 17:01] LABS: Bedside Glucose 264 mg/dL (74-106)
--- NOTE | 2022-01-05 17:17 | CASEMGMT ---
Addendum entered by Brianna Cortez 01/05/22 17:21: Santa's next choice of facility it [facility] if [facility] is unable to accept. MICHAEL Alanis Original Note: Social Work SW met with pt and dgt Santa and informed that [facility] does not have beds available and [facility] has not yet made a decision. SW inquired about oncology immunotherapy. Santa called Dr. Bailon office to check on this and states if pt chooses to do the immunotherapy and it would be an infusion at the oncology office. One day pt would report for tests and the following day she would report for the infusion which would be opdivo. Infusions would be every 4 weeks. Pt has not yet decided if she wants to do this. SW will provide information to [facility]. MICHAEL Alanis
[2022-01-05 22:01] LABS: Bedside Glucose 251 mg/dL (74-106)
[2022-01-06] VITALS (13 sets, daily range): BP systolic 97–147; BP diastolic 52–63; PULSE 69–97; RESP 14–26; TEMP 37.1–37.4; O2SAT 94–100
[2022-01-06 06:38] LABS: Absolute Lymphocyte Count 0.66 X10^3/uL (0.83-4.51); Absolute Neutrophil Count 8.5 X10^3/uL (2.0-7.7); Basophil# 0.02 X10^3/uL; Basophil% 0.2 % (0-1); Eosinophil# 0.21 X10^3/uL; Eosinophils% 2.1 % (0-5); Hemoglobin 9.3 g/dL (12.0-15.0); Lymphocyte # 0.66 X10^3/ul (0.83-4.51); Lymphocyte % 6.5 % (19-41); Mean Corpuscular Hgb 27.5 pg (27.0-32.0); Mean Corpuscular Volume 88.8 fL (81-99); Mean Platelet Vol. 9.6 fl (6.2-12.0); Monocyte# 0.66 X10^3/uL; Monocyte% 6.5 % (0-10); NRBC Flagged by Analyzer 0 % (0-5); Neutrophil # 8.51 X10^3/uL (2.7-7.7); Neutrophil % 84.2 % (47-70); Platelet Count 159 K/mm3 (150-450); RBC Distribution Width CV 15.6 % (11.6-14.6); RBC Distribution Width SD 50.9 fl (35.1-43.9); Red Blood Count 3.38 M/mm3 (4.2-5.4); White Blood Count 10.1 K/mm3 (4.4-11.0)
[2022-01-06] MEDS: Albuterol 2.5 MG/3 ML VIAL.NEB. INHALATION ×2 (06:41→19:15)
[2022-01-06] MEDS: hydrALAZINE 10 MG Tablet PO ×3 (06:44→21:27)
[2022-01-06 07:03] LABS: Anion Gap 3 (5-15); BUN 12 mg/dL (7-18); BUN/Creat Ratio 23.4 RATIO (10-20); Calcium,Total 9.1 mg/dL (8.5-10.1); Chloride 104 mmol/L (98-107); Creatinine, Serum 0.51 mg/dL (0.55-1.02); EST Glomerular Filtration Rate 124 mL/min (>60); Est Glom Filt Rate - Afr Amer 150 mL/min (>60); Estimated Creatinine Clearance 40.21 ml/min; Glucose 140 mg/dL (74-106); Potassium 3.6 mmol/L (3.5-5.1); Sodium Level 140 mmol/L (136-145)
[2022-01-06 07:05] LABS: Bedside Glucose 122 mg/dL (74-106)
[2022-01-06] MEDS: Menthol/Lanolin/Calamine/Znox 113 GM Tube 1 APPLIC TOPICAL ×3 (08:06→16:29)
[2022-01-06] MEDS: predniSONE 20 MG Tablet PO (08:06)
[2022-01-06] MEDS: Amiodarone 200 MG Tablet 100 MG PO ×2 (08:06→21:27)
[2022-01-06] MEDS: Nadolol 40 MG Tablet PO (08:07)
[2022-01-06] MEDS: guaiFENesin 1,200 MG Tablet 1200 MG PO ×2 (08:07→21:26)
[2022-01-06] MEDS: Fluticasone 0.05% 1 SPRAY NASAL.SRY NASAL (08:07)
[2022-01-06] MEDS: APIXABAN 5 MG TABLET PO ×2 (08:07→21:27)
[2022-01-06] MEDS: Nystatin Powder 15gm Bottle 1 APPLIC TOPICAL ×2 (08:08→21:25)
--- NOTE | 2022-01-06 09:02 | PN.HOSP_ITS ---
Documented by User: Jenna Cabrera NP, CREAM CHEESE MAKER-C 01/06/22 09:06 Subjective Subjective Patient seen and examined. No acute events overnight. Awaiting acceptance to SNF. Intermittent low-grade fever. No other symptoms or complaints Objective Data Objective Data Vital Signs: Vital Signs Temp Pulse Resp BP Pulse Ox O2 Del Method O2 Flow Rate 98.8 F 76 18 136/52 H 96 Nasal Cannula 4 01/06/22 08:02 01/06/22 08:02 01/06/22 08:02 01/06/22 08:02 01/06/22 08:02 01/06/22 08:02 01/06/22 08:02 FiO2 30 01/06/22 00:10 Oxygen Flow Rate (L/min) 4 Oxygen Delivery Method Nasal Cannula Weight: 281 lb 4.957 oz Body Mass Index (BMI) 49.1 Intake & Output: Intake and Output for Last 24 Hours 01/04/22 01/05/22 01/06/22 23:59 23:59 23:59 Intake Total 1250 / 1250 900 / 900 50 / 50 Output Total 1000 / 1250 1500 / 1500 200 / 200 Balance 250 / 0 -600 / -600 -150 / -150 Lab / Micro Data Result Diagrams: 01/06/22 06:30 01/06/22 06:30 Labs: Laboratory Results - last 24 hr 01/05/22 11:12: POC Glucose 179 H 01/05/22 15:51: POC Glucose 264 H 01/05/22 21:31: POC Glucose 251 H 01/06/22 06:30: WBC 10.1, RBC 3.38 L, Hgb 9.3 L, Hct 30.0 L, MCV 88.8, MCH 27.5, MCHC 31.0 L, RDW Std Deviation 50.9 H, RDW Coeff of Aniceto 15.6 H, Plt Count 159, MPV 9.6, Immature Gran % (Auto) 0.500, Neut % (Auto) 84.2 H, Lymph % (Auto) 6.5 L, Lincoln % (Auto) 6.5, Eos % (Auto) 2.1, Baso % (Auto) 0.2, Absolute Neuts (auto) 8.5 H, Absolute Lymphs (auto) 0.66 L, Nucleated RBC % 0 01/06/22 06:30: Sodium 140, Potassium 3.6, Chloride 104, Carbon Dioxide 33.0 H, Anion Gap 3 L, BUN 12, Creatinine 0.51 L, Estim Creat Clear Calc 40.21, Est GFR (MDRD) Af Amer 150, Est GFR (MDRD) Non-Af 124, BUN/Creatinine Ratio 23.4 H, Glucose 140 H, Calcium 9.1 01/06/22 06:43: POC Glucose 122 H Physical Exam Const alert and oriented x3 Nutritional Appearance: morbidly obese HEENT normocephalic and moist oral mucous membranes Eyes PERRL, EOMs intact bilaterally and conjunctivae normal Neck no lymphadenopathy Resp clear to auscultation bilaterally Resp Narrative: Pleurx in place Auscultation: diminished lung sounds Cardio regular rate, regular rhythm and no murmurs Peripheral Pulses: pulses 2+ throughout GI normal to inspection, nondistended, normoactive bowel sounds, non-tender and non-distended Extremity normal to inspection Skin no rashes or lesions noted Lesions: no lesions Rashes: no rashes Trauma: no lacerations or abrasions Neuro CN's II-XII intact bilaterally, no focal motor deficits, no sensory deficits noted and deep tendon reflexes 2+ bilaterally Psych mental status grossly normal and affect normal Assessment & Plan Assessment/Plan (1) Acute and chronic respiratory failure with hypoxia: PLAN: Plan 1.? 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 Patient initially requiring BiPAP.? Now on baseline oxygen 4 L nasal cannula.? Recent right Pleurx catheter placement for recurrent pleural effusion.? Continue IV Zosyn per prior ID recommendations for Pseudomonas pneumonia with stop date 01/05/2022.? Continue aerosol regimen.? Plan for Pleurx catheter drainage prior to DC to SNF. 2.? Metabolic encephalopathy-secondary to hypercapnia.? Resolved.? Continue PAP nightly. 3.? Paroxysmal atrial fibrillation with RVR- Continue amiodarone, nadolol, Eliquis. 4. Stage III lung cancer- Follows with Dr. Crouch. Previously completed chemo and radiation.? On immunotherapy. 5. Chronic hypoxic respiratory failure secondary to chronic asthma, lung cancer with recurrent pleural effusion-wears 4 L nasal cannula at baseline.? On baseline home O2 requirements.? Albuterol aerosol. 6. Type 2 diabetes [id number] with sliding scale insulin. 7. Hypertension-stable, continue current regimen. 8. Anxiety/depression/ADD- on Paxil, methylphenidate. 9. DORY-reports noncompliance with CPAP. 10. Morbid obesity-encouraged diet and lifestyle modifications. 11.? Debility-return to SNF pending acceptance. PT/OT. DVT prophylaxis-Tiffany, Patricia This patient was seen by HIRAL Alarcon under the supervision of Dr. Childress. Discharge planning: SNF pending acceptance. Time spent examining patient, reviewing data and subsequent management of care: 14 minutes Documented by User: Dr. Isreal Childress MD 01/06/22 14:45 Objective Data Lab / Micro Data Result Diagrams: 01/06/22 06:30 01/06/22 06:30 Assessment & Plan Assessment/Plan (1) Acute and chronic respiratory failure with hypoxia: Charges/Coding Addendum Addendum: Dr. Childress I personally examined the patient and reviewed the chart. I agree with the above.? 76-year-old female has been in the hospital several times over the last several weeks secondary to a right-sided pleural effusion.? She does have lung cancer that appears to have reactivated on PET scan and she did have her pleural effusion drained.? Since cytology was negative for malignancy she did have a Pleurx catheter placed and she had been discharged to SNF however it that point she was not hooked up to oxygen while there and came back and hypoxic into the ICU for monitoring.? Family would like to try to find a different longterm at this time which we are working on.? She otherwise appears to be stable with no changes going on with her health at this time other than needing to be periodically drained with Pleurx catheter.? Clinical time spent on all aspects of patient care: 20 minutes 01/06/2022: Doing well today, no issues overnight. Currently in a holding pattern awaiting insurance acceptance for physical therapy. She is doing well with Pleurx catheter, this will need to be drained prior to discharge. In the meantime we will continue with PT and OT while here and hopefully will obtain pre-CERT in the next several days. Clinical time spent in all aspects of patient care: 18 minutes Visit Charges Inpatient E&M: 34160 Subs Hosp L2
--- NOTE | 2022-01-06 11:11 | CASEMGMT ---
Social Work ROMI placed call to Shayla at [facility]. Shayla states if pt chooses to not have the Immunotherapy Infusions while she is at [facility], they can accept pt. If pt chooses to proceed with Infusions at this time she cannot go to [facility]. This is related to the cost that [facility] would be responsible for if Infusions took place. ROMI met with pt and inquired if she has made a decision if she would be moving forward with infusions. Pt states it will be up to her daughter. Phone call to pt daughter Santa and dimitris claymail with the above information and requesting a return call as soon as possible with decision. Santa stated yesterday that second choice is [facility] [place]. ROMI placed call to Vivian at [facility] and they do have beds available. ROMI inquired if they would consider pt if she chose to have Infusions. Vivian states it would have to be run through the financial department. ROMI faxed referral and informed Vivian that a decision was needed today if they could accept pt. ROMI will await return call from pt's daughter to discuss Infusions and await determination from [facility] on acceptance. MICHAEL Alanis
[2022-01-06] MEDS: Insulin Lispro 100 UNIT/ML INSULN.PEN SC ×3 (11:12→21:23)
[2022-01-06 11:40] LABS: Bedside Glucose 229 mg/dL (74-106)
--- NOTE | 2022-01-06 12:41 | CASEMGMT ---
Addendum entered by Brianna Cortez 01/06/22 15:05: Social Work Return call from [facility] and they are able to accept pt and pt could go to Immunotherapy Infusion appointments if she chooses this. Third VM left with pt daughter requesting return call to discuss discharge options so that precert can be started. SW also sent email to [facility] Santa laying out d/c options and requesting return call with dgt choice of SNF for precert can be started. MICHAEL Alanis Original Note: Social Work SW placed call to [facility] to discuss discharge plan. VM left with request to return call. MICHAEL Alanis
--- NOTE | 2022-01-06 13:16 | NURSING ---
Went in pt room to drain her right side Pleurx cath. Hooked her up and nothing but a few drop came out. Pt tolerated well and a clean dry dressing was applied. Jenna Cabrera aware.
[2022-01-06 17:05] LABS: Bedside Glucose 295 mg/dL (74-106)
--- NOTE | 2022-01-06 22:00 | CPS ---
nursing states pt's oxygen decreased to 70%s, switched pt to full face mask and increased FIO2 to 40%
[2022-01-06 22:40] LABS: Bedside Glucose 231 mg/dL (74-106)
[2022-01-07] VITALS (15 sets, daily range): BP systolic 141–179; BP diastolic 61–105; PULSE 65–80; RESP 14–24; TEMP 36.6–37.4; O2SAT 97–100
[2022-01-07] MEDS: hydrALAZINE 10 MG Tablet PO ×3 (05:26→21:59)
[2022-01-07 07:10] LABS: Bedside Glucose 117 mg/dL (74-106)
[2022-01-07] MEDS: Albuterol 2.5 MG/3 ML VIAL.NEB. INHALATION ×2 (07:15→22:18)
[2022-01-07] MEDS: Ergocalciferol 1.25 MG (50, 000 UNIT) Capsule PO (09:00)
[2022-01-07] MEDS: Amiodarone 200 MG Tablet 100 MG PO ×2 (09:00→21:59)
[2022-01-07] MEDS: predniSONE 20 MG Tablet PO (09:00)
[2022-01-07] MEDS: Menthol/Lanolin/Calamine/Znox 113 GM Tube 1 APPLIC TOPICAL ×3 (09:01→16:28)
[2022-01-07] MEDS: guaiFENesin 1,200 MG Tablet 1200 MG PO ×2 (09:01→21:59)
[2022-01-07] MEDS: Fluticasone 0.05% 1 SPRAY NASAL.SRY NASAL (09:01)
[2022-01-07] MEDS: Nadolol 40 MG Tablet PO (09:01)
[2022-01-07] MEDS: APIXABAN 5 MG TABLET PO ×2 (09:01→21:59)
[2022-01-07] MEDS: Nystatin Powder 15gm Bottle 1 APPLIC TOPICAL ×2 (09:02→21:59)
--- NOTE | 2022-01-07 09:40 | RAD_ITS ---
STUDY: X-RAY CHEST REASON FOR EXAM: Female, 76 years old. Difficulty breathing, right pleural effusion TECHNIQUE: Single AP portable view of the chest. COMPARISON: 12/31/2021 FINDINGS: Stable appearance of EKG leads, right-sided chest tube, and left-sided PICC line. Left lung is clear. Right lung shows airspace opacification in the lower lobe with associated effusion. Follow-up recommended to ensure resolution. Normal size heart. Normal mediastinum and tanna. Normal visualized pulmonary arteries. Normal visualized aortic arch and descending thoracic aorta. Normal visualized thoracic spine. Normal visualized ribs, clavicles, and shoulders. There is no demonstrated abnormality of the visualized soft tissue structures of the upper abdomen. RAD/Special CXR (Obl/Decub/A/L) IMPRESSION: Right lower lobe pneumonia with associated effusion Left lung is clear Electronically Signed: Yong Ordonez MD at 9:59 EDT ,
--- NOTE | 2022-01-07 10:04 | CASEMGMT ---
Addendum entered by Brianna Cortez 01/07/22 11:48: Social Work SW received call from [facility] and precert will be started at this time. PT/OT and physician report from today faxed to [facility]. MICHAEL Alanis Original Note: Social Work SW received email from pt dgt inquiring if rooms at SNFs are private and if the SNF has the capability to monitor 02 at the nurses station. ROMI spoke with [facility]. Pt would be in a private room for 8 days and then private room would not be guaranteed after that time. Vivian states SNF's do not have the ability to monitor oxygen from the nurses station but will monitor pt in room. CIRILO left with [facility] [place] to inquire. Phone call to pt dgt Santa and gave her the above information along with Immunotherapy information regarding acceptance. Santa now asking if pt could go to [facility] as she believes they can monitor 02 at nurses station. Phone call to [facility] and spoike with Daily in admissions. They do have private rooms with possible bed availability, but they do not have the capability to monitor oxygen at the nurses station. ROMI called Santa back and informed that [facility] specifically and SNFs in general are not able to monitor oxygenation at the nurses station but nurses do monitor it in pts room. Santa states she needs to talk to pt and will call ROMI back. After short time, ROMI called Santa back. She confirms she did talk to pt and pt is wanting to pursue Immunotherapy and dgt has called Dr. Crouch's office to back off the start of this to next week. ROMI informed Santa that if this is the course pt is choosing, [facility] is the facility that is agreeable to accomodating this. Santa agrees to start precert at [facility]. Phone call to Vivian at [facility] and left VM requesting precert be started. Plan: [facility], pending precert MICHAEL Alanis
--- NOTE | 2022-01-07 10:26 | PCM.PN.HOSP ---
Documented by User: Jenna Cabrera NP, WEIGHING STATION OPERATOR-C 01/07/22 10:30 Subjective Subjective Patient seen and examined. Up in chair. States she slept well overnight. Reports intermittent nonproductive cough. Denies increased shortness of breath. Objective Data Objective Data Vital Signs: Vital Signs Temp Pulse Resp BP Pulse Ox O2 Del Method O2 Flow Rate 98.6 F 76 20 H 149/86 H 97 Nasal Cannula 4 01/07/22 09:18 01/07/22 09:18 01/07/22 09:18 01/07/22 09:18 01/07/22 09:18 01/07/22 09:18 01/07/22 09:18 FiO2 40 01/07/22 07:20 Oxygen Flow Rate (L/min) 4 Oxygen Delivery Method Nasal Cannula Weight: 280 lb 13.903 oz Body Mass Index (BMI) 49.1 Intake & Output: Intake and Output for Last 24 Hours 01/05/22 01/06/22 01/07/22 23:59 23:59 23:59 Intake Total 900 / 900 590 / 590 200 / 200 Output Total 1500 / 1500 700 / 700 750 / 750 Balance -600 / -600 -110 / -110 -550 / -550 Lab / Micro Data Result Diagrams: 01/06/22 06:30 01/06/22 06:30 Labs: Laboratory Results - last 24 hr 01/06/22 11:10: POC Glucose 229 H 01/06/22 16:28: POC Glucose 295 H 01/06/22 21:23: POC Glucose 231 H 01/07/22 06:32: POC Glucose 117 H Radiography Diagnostic Testing: Radiology Impression Chest X-Ray 01/07/22 09:40 IMPRESSION: Right lower lobe pneumonia with associated effusion Left lung is clear Electronically Signed: Yong Ordonez MD at 9:59 EDT , Physical Exam Const alert and oriented x3 Nutritional Appearance: morbidly obese HEENT normocephalic and moist oral mucous membranes Eyes PERRL, EOMs intact bilaterally and conjunctivae normal Neck no lymphadenopathy Resp normal respiratory effort and clear to auscultation bilaterally Cardio regular rate, regular rhythm and no murmurs Peripheral Pulses: pulses 2+ throughout GI normal to inspection, nondistended, normoactive bowel sounds, non-tender and non-distended Extremity normal to inspection Skin no rashes or lesions noted Lesions: no lesions Rashes: no rashes Trauma: no lacerations or abrasions Neuro CN's II-XII intact bilaterally, no focal motor deficits, no sensory deficits noted and deep tendon reflexes 2+ bilaterally Psych mental status grossly normal and affect normal Assessment & Plan Assessment/Plan (1) Acute and chronic respiratory failure with hypoxia: PLAN: Plan 1.? 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 Patient initially requiring BiPAP.? Now on baseline oxygen 4 L nasal cannula.? Recent right Pleurx catheter placement for recurrent pleural effusion.? IV Zosyn for Pseudomonas pneumonia discontinued 01/05/2022.? Continue aerosol regimen.? Attempted Pleurx catheter drainage 01/06/2022 with no fluid removed. Chest x-ray this morning shows significant right pleural effusion. Will discuss with surgery potential malfunctioning Pleurx catheter. 2.? Metabolic encephalopathy-secondary to hypercapnia.? Resolved.? Continue PAP nightly. 3.? Paroxysmal atrial fibrillation with RVR- Continue amiodarone, nadolol, Eliquis. 4. Stage III lung cancer- Follows with Dr. Crouch. Previously completed chemo and radiation.? On immunotherapy. 5. Chronic hypoxic respiratory failure secondary to chronic asthma, lung cancer with recurrent pleural effusion-wears 4 L nasal cannula at baseline.? On baseline home O2 requirements.? Albuterol aerosol. 6. Type 2 diabetes [id number] with sliding scale insulin. 7. Hypertension-stable, continue current regimen. 8. Anxiety/depression/ADD- on Paxil, methylphenidate. 9. DORY-reports noncompliance with CPAP. 10. Morbid obesity-encouraged diet and lifestyle modifications. 11.? Debility-return to SNF pending acceptance. PT/OT. DVT prophylaxis-Patricia Allen This patient was seen by HIRAL Alarcon under the supervision of Dr. Miramontes. Discharge planning: SNF pending acceptance. Time spent examining patient, reviewing data and subsequent management of care: 14 minutes Documented by User: Dr. Mat Miramontes DO 01/07/22 16:54 Objective Data Lab / Micro Data Result Diagrams: 01/06/22 06:30 01/06/22 06:30 Assessment & Plan Assessment/Plan (1) Acute and chronic respiratory failure with hypoxia: Charges/Coding Addendum Addendum: Patient was seen and examined today independently of Jenna Cabrera, I had a lateral decubitus chest x-ray performed which showed minimal amount of fluid in the right hemithorax, to confirm this, I ordered a CT of the chest which again showed no significant fluid accumulation in the right hemithorax. Case management and child protective services social worker working with the patient's daughter have put in a request for shelter for the patient that the daughter has agreed upon. Patient has no complaints of any shortness of breath time my examination, her oxygen flow rate has been stable at 4 L. On examination she appeared in good health and spirits, she does not appear to be in any distress. Vital signs as documented. Skin warm and dry and without overt rashes. Neck without JVD, thyroid appears normal, trachea is midline, neck is supple. Lungs clear, normal air movement was noted. Heart exam notable for regular rhythm, normal sounds and absence of murmurs, rubs or gallops. Abdomen unremarkable and without evidence of organomegaly, masses, or abdominal aortic enlargement, bowel sounds are present in all 4 quadrants, no abdominal tenderness was noted. Patient is morbidly obese. Extremities nonedematous, no cyanosis was noted, no clubbing was noted. Neuro: Cranial nerves II through XII are grossly intact, no focal motor deficits were noted, sensation to light touch and pinprick is intact, motor exam 5/5 throughout. Psych: Patient is alert and oriented x3, she does not appear anxious or depressed, she does not appear agitated. #1 acute on chronic combined respiratory failure-this is corrected at this time, patient is on her baseline oxygen #2 metabolic encephalopathy secondary to hypercapnia-this is resolved at this time #3 non-small cell lung cancer-complicates care, recovery, and prognosis #4 morbid obesity-complicates care, recovery, and prognosis #5 chronic right pleural effusion secondary to non-small cell lung cancer of the right lung-Pleurx catheter will be drained at intervals #6 paroxysmal atrial fibrillation-patient is on apixaban #7 acute debility-PT and OT will continue to see the patient, she will need placement in a prison facility #8 asthma by history-patient will remain on prednisone at this time, I will decrease the dose #9 obstructive sleep apnea-patient is on BiPAP while sleeping, patient is noncompliant with this at times #10 essential hypertension-patient is to remain on current medication #11 Pseudomonas pneumonia-patient finished a course of antibiotics I have reviewed Jenna Rick's progress note including her medical assessment and plan of care and with the above additions endorse it. Total clinical time spent by myself addressing the patient's medical issues, reviewing the data, and collaborating with patient's care team: 23 minutes Visit Charges Inpatient E&M: 13260 Subs Hosp L3
[2022-01-07] MEDS: Insulin Lispro 100 UNIT/ML INSULN.PEN SC ×3 (11:18→21:50)
[2022-01-07 11:50] LABS: Bedside Glucose 186 mg/dL (74-106)
--- NOTE | 2022-01-07 13:20 | CT_ITS ---
INDICATION: right pleural effusion EXAMINATION: CT CHEST WITHOUT CONTRAST - CT Chest W/O Contrast Injection TECHNIQUE: Helically acquired images were obtained of the chest. A radiation dose optimization technique was used for this scan. IV Contrast dosage and agent: None. COMPARISON: 12/14/2021. FINDINGS: LUNGS, PLEURA AND LARGE AIRWAYS: Consolidation with air bronchograms is visualized in the posterior right upper lobe, extending to involve the perihilar region with air bronchograms visualized, focal opacification visualized in the posterior lateral aspect of the right lower lobe. Opacification visualized surrounding the bronchioles in the right lower lobe with a focal bronchiectatic changes seen. Cannot rule out underlying masses. A chest drainage catheter is visualized minimal residual right pleural fluid is visualized. The left hemithorax demonstrates no evidence of focal infiltrates or consolidations. No significant prominence of the bronchovascular markings in the left lung holcomb. THYROID: No thyroid lesions. HEART AND PERICARDIUM: Heart size is normal. No pericardial effusion. Atherosclerotic calcifications visualized in the coronary vessels. VESSELS: Thoracic aorta is not dilated. MEDIASTINUM AND DUY: No significant mediastinal or hilar adenopathy. Esophagus is unremarkable. Small type I hiatal hernia is seen. UPPER ABDOMEN: No acute pathology. BONES: No suspicious lytic or blastic abnormality. CT/Chest without Contrast IMPRESSION: Opacification visualized in the right hemithorax suggestive of consolidations, cannot rule out underlying masses. No evidence of significant right pleural fluid is seen. Electronically Signed: Steve Meyer MD at 14:45 EDT ,
[2022-01-07 17:50] LABS: Bedside Glucose 367 mg/dL (74-106)
[2022-01-07] MEDS: 0.9% Saline Lock 10 ML Syringe IV ×2 (21:57→22:08)
[2022-01-07 23:30] LABS: Bedside Glucose 232 mg/dL (74-106)
[2022-01-08] VITALS (7 sets, daily range): BP systolic 131–157; BP diastolic 59–85; PULSE 68–76; RESP 14–24; TEMP 36.4–36.6; O2SAT 94–100
[2022-01-08] MEDS: hydrALAZINE 10 MG Tablet PO (06:19)
[2022-01-08] MEDS: Albuterol 2.5 MG/3 ML VIAL.NEB. INHALATION (07:15)
[2022-01-08 07:20] LABS: Bedside Glucose 122 mg/dL (74-106)
[2022-01-08] MEDS: predniSONE 20 MG Tablet PO (09:06)
[2022-01-08] MEDS: Menthol/Lanolin/Calamine/Znox 113 GM Tube 1 APPLIC TOPICAL (09:07)
[2022-01-08] MEDS: Amiodarone 200 MG Tablet 100 MG PO (09:07)
[2022-01-08] MEDS: Fluticasone 0.05% 1 SPRAY NASAL.SRY NASAL (09:08)
[2022-01-08] MEDS: Nadolol 40 MG Tablet PO (09:08)
[2022-01-08] MEDS: guaiFENesin 1,200 MG Tablet 1200 MG PO (09:08)
[2022-01-08] MEDS: APIXABAN 5 MG TABLET PO (09:08)
[2022-01-08] MEDS: Nystatin Powder 15gm Bottle 1 APPLIC TOPICAL (09:09)
--- NOTE | 2022-01-08 09:53 | CASEMGMT ---
Social work SW spoke with pt dgt regarding home bipap. Dgt states it would be best if facility provided a bipap for pt. left for Vivian at [facility] requesting facility provide a bipap. Bipap settings faxed to [facility]. MICHAEL Alanis
--- NOTE | 2022-01-08 10:00 | PCM.TXEXTCAR ---
Diet Diet Order/Speech Therapy: 01/01/22 09:54 Diet: Consistent Carb - Calorie Controlled Dietary Modifications:: Gluten Free No Added Salt Is pt able to select menu?: No How many daily calories?: 1600 calorie Routine Orders/Code Status Enema Type: Fleetz Enema Frequency: Daily PRN Suppository Type: Dulcolax 10mg Suppository Frequency: Daily PRN O2 Liters per Minute: 4 O2 Frequency: Continuous Keep PO Greater than or Equal to (%): 90 Routine Lab Work: CBC and BMP Code Status: DNRCC-A (no intubation) Wound(s) right chest: Wound Type: pleurex cath Suggestions for Active Care Change Position every (hours): 2 Times a day to sit in chair: 3 Therapies Weight Bearing: Full weight bearing Physical Therapy: Eval and Treat Occupational Therapy: Eval and Treat Problem/Diagnosis (1) Acute and chronic respiratory failure with hypoxia: Status: Acute Code(s): J96.21 - Acute and chronic respiratory failure with hypoxia Allergies/Procedures Done in Hospital Allergies adhesive tape Allergy (Verified 12/19/21 18:31) tears skin listed on pcp allergy list cefadroxil [From Duricef] Allergy (Verified 12/19/21 18:31) Unknown gluten Allergy (Verified 12/19/21 18:31) celiac disease Celiac disease mesalamine [From Asacol] Allergy (Verified 12/19/21 18:31) Unknown listed on pcp allergy list omalizumab [From Xolair] Allergy (Verified 12/19/21 18:31) Unknown listed on pcp allergy list Sulfa (Sulfonamide Antibiotics) Allergy (Verified 12/19/21 18:31) swelling as an oxycodone Adverse Reaction (Verified 12/19/21 18:31) Vomiting Type of Care/Length of Stay Estimated LOS: Convalescent Care Less Than 30 days Type of Care Needed: Skilled Rehab Potential: Fair Prognosis: Fair Additional Orders/Day of Discharge Day of Discharge: 01/08/22 Dietary and Speech Recommendations Dietitian Recommendations/Changes: Will change diet to 1600 calorie controlled, consistent CHO, No Added Salt, gluten free Discharge Plan Admission Admit Date/Time: 12/31/21 23:37 Primary Reason for Your Visit: Acute on Chronic Respiratory Failure Attending Provider: Mat Miramontes Primary Care Provider: Senait Jay Consulting Providers: Mindy Painter ; Junior Ovalles ; Mat Miramontes ; Isreal Childress Discharge Orders/Prescriptions Prescriptions: New prednisone 20 mg Tablet 20 mg PO DAILYCM Qty: 0 0RF menthol-zinc oxide [Calmoseptine] 0.44-20.6 % Ointment 1 applic topical 4X/DAY Qty: 0 0RF Protocol: *Topical Application Instructions APPLICATION INSTRUCTIONS: apply to affected region Continued cholecalciferol (vitamin D3) 50,000 UNIT capsule 50,000 unit PO SUWE@0800 albuterol sulfate 2.5 MG/3 ML solution for nebulization 2.5 mg INHALATION Q2H PRN PRN (Reason: Dyspnea, wheezing) Qty: 1 0RF albuterol sulfate [ProAir HFA] 1 PUFF inhaler 2 puff inhalation Q6H PRN PRN (Reason: Dyspnea/Wheezing/Sob) budesonide [Rhinocort Allergy] 8.43 ML spray,non-aerosol 2 puff NARES DAILY paroxetine HCl [Paxil] 40 mg Tablet 40 mg PO DAILY nadolol 40 mg tablet 40 mg PO DAILY Label Comments: take 1 tablet by mouth once daily fluticasone furoate-vilanterol [Breo Ellipta] 200-25 mcg/dose blister with device 2 inh INHALATION DAILY Label Comments: inhale 1 puff by mouth INTO THE LUNGS once daily (USE GOOD ORAL CARE AFTER USE) Humulin R U-500 (Conc) Kwikpen 500 unit/mL (3 mL) insulin pen 65 unit SUBCUT DINNER Label Comments: INJECT 95 UNITS SUBCUTANEOUSLY DAILY BEFORE BREAKFAST AND 85 UNIT... (REFER TO PRESCRIPTION NOTES). acetaminophen [Tylenol] 325 mg Tablet 650 mg PO Q6H PRN PRN (Reason: Pain 1-10 Or Fever) Qty: 0 0RF amiodarone 200 mg Tablet 100 mg PO BID 30 Days Qty: 30 0RF hydralazine 10 mg Tablet 10 mg PO TID 30 Days Qty: 90 0RF Mucus Relief ER 1,200 mg Tablet Extended Release 12hr 1,200 mg PO BID Qty: 0 0RF apixaban 5 mg tablet 5 mg PO BID Qty: 60 0RF Hold Instructions: Resume on 12/31/21. nystatin [Nyamyc] 100,000 unit/gram Powder 1 applic topical BID Qty: 0 0RF Protocol: *Topical Application Instructions APPLICATION INSTRUCTIONS: groin, abdominal folds, under R breast dextromethorphan-guaifenesin 10-100 mg/5 mL Syrup 10 ml PO Q6H PRN PRN (Reason: Cough) Qty: 0 0RF Discontinued Zosyn in dextrose (iso-osm) 3.375 gram/50 mL piggyback 3.375 g IV Q8H 5 Days Qty: 843.75 0RF Rx Instructions: stop date 01/05/22 dx: pseudomonas infection weekly bmp and CBC while on iv abx. Fax to [phone] budesonide 0.5 mg/2 mL Suspension For Nebulization 0.5 mg inhalation BID.RT Qty: 0 0RF prednisone 10 mg tablet See Taper PO BID Qty: 21 0RF Taper: Prednisone Taper 20 mg WITH BREAKFAST for 3 Days and 0 Hour 10 mg WITH BREAKFAST for 3 Days and 0 Hour Referrals / Follow Up: Senait Jay MD [Primary Care Provider] - Disposition Disposition (needs filled in before D/C Order can be placed): Senior Living Facility
--- NOTE | 2022-01-08 10:13 | PCM.DC.SUM ---
Documented by User: HIRAL Pan 01/08/22 10:36 Providers Date of Admission: 12/31/21 Date of Discharge: 01/08/22 Primary Care Physician: Dr. Senait Jay MD Consultations 01/01/22 02:26 Consult: Broadcast Operations Technician / Pulmonary Medicine Routine Consulting Provider: Junior Ovalles Reason for Consult: Resp failure, d/c 12/31/21 and SNF hooked up O2 wrong EMERGENT Consult: No MD Notified: Yes Date Notified: 01/01/22 Time Notified: 00:24 Method of Notification: Text Reason For Visit: RESPIRATORY FAILURE, CO2 NARCOSIS Diagnosis Discharge Diagnosis (1) Acute and chronic respiratory failure with hypoxia: Status: Acute Code(s): J96.21 - Acute and chronic respiratory failure with hypoxia Medications at Discharge Home Medications cholecalciferol (vitamin D3) 1,250 mcg (50,000 unit) capsule 50,000 unit PO SUWE@0800 SUPPLEMENT 06/01/17 albuterol sulfate 2.5 mg/3 mL (0.083 %) solution for nebulization 2.5 mg (3 mL) inhalation Q2H PRN PRN Dyspnea, wheezing ##1 11/26/17 albuterol sulfate 90 mcg/actuation aerosol inhaler (ProAir HFA) 2 puff inhalation Q6H PRN PRN Dyspnea/Wheezing/Sob 03/25/18 budesonide 32 mcg/actuation nasal spray (Rhinocort Allergy) 2 puff DAILY ALLERGIES 06/12/18 fluticasone furoate 200 mcg-vilanterol 25 mcg/dose inhalation powder (Breo Ellipta) 2 inh inhalation DAILY sob 12/09/21 insulin regular hum U-500 conc 500 unit/mL(3 mL) subcut pen (Humulin R U-500 (Conc) Insulin Kwikpen) 65 unit subcut DINNER diabetes 12/09/21 nadolol 40 mg tablet 40 mg PO DAILY heart 12/09/21 paroxetine HCl 40 mg tablet (Paxil) 40 mg PO DAILY mood 12/09/21 acetaminophen 325 mg tablet (Tylenol) 650 mg PO Q6H PRN PRN Pain 1-10 Or Fever #0 tabs 12/16/21 amiodarone 200 mg tablet 100 mg PO BID 30 days #30 tabs 12/16/21 guaifenesin 1,200 mg tablet, extended release 12 hr (Mucus Relief ER) 1,200 mg PO BID #0 tabs 12/16/21 hydralazine 10 mg tablet 10 mg PO TID 30 days #90 tabs 12/16/21 apixaban 5 mg tablet 5 mg PO BID #60 tabs 12/17/21 nystatin 100,000 unit/gram topical powder (Nyamyc) 1 applic topical BID #0 grams 12/30/21 dextromethorphan-guaifenesin 10 mg-100 mg/5 mL oral syrup 10 ml PO Q6H PRN PRN Cough #0 mL 12/31/21 menthol 0.44 %-zinc oxide 20.6 % topical ointment (Calmoseptine) 1 applic topical 4X/DAY #0 grams 01/08/22 prednisone 20 mg tablet 20 mg PO DAILYCM #0 tabs 01/08/22 Hospital Course Operations None Procedures None Summary of Care Provided Minutes Spent on Discharge: 35 Hospital Course: Patient admitted 12/31/2021 following unresponsive episode at [facility] facility where patient was noted to be inappropriately connected to her oxygen. Patient was placed on BiPAP by EMS and was transferred to hospital. Patient subsequently admitted and given gentamicin IM x1 with subsequent PICC placement requested. Patient was continued on Zosyn which completed January 05. Patient improved rapidly overnight with BiPAP and was subsequently transferred from the ICU to [facility] where patient has been stable with BiPAP at night and as needed with naps. There was some concern that patient's Pleurx catheter was not working appropriately due to a right pleural effusion seen on x-ray. Chest CT was done on 01/07/2022 which showed no pleural effusion and a properly placed Pleurx catheter. Of note patient is oxygen dependent and needs 4 L nasal cannula oxygen continuously. Physical Exam Const alert, oriented x3 and no apparent distress General Appearance: cooperative HEENT normocephalic, head/scalp atraumatic and moist oral mucous membranes Eyes conjunctivae normal and no scleral icterus Neck no lymphadenopathy and supple General: trachea midline Resp normal respiratory effort, normal air movement and clear to auscultation bilaterally Cardio regular rate, regular rhythm, S1 normal heart sound, S2 normal heart sound and peripheral pulses 2+ throughout GI normal to inspection, nondistended, normoactive bowel sounds, soft to palpation and non-tender Extremity normal capillary refill Skin skin turgor normal General Skin Exam: no breakdown Lesions: no lesions Rashes: no rashes Neuro no focal motor deficits and no sensory deficits noted Speech: speech normal Psych affect normal Weight / BMI Weight Weight: 282 lb 13.649 oz Body Mass Index (BMI) 49.1 ABG / Lab / Microbiology Data Result Diagrams: 01/06/22 06:30 01/06/22 06:30 Laboratory: Laboratory Results - last 24 hr 01/07/22 11:17: POC Glucose 186 H 01/07/22 16:25: POC Glucose 367 H 01/07/22 21:49: POC Glucose 232 H 01/08/22 06:17: POC Glucose 122 H Radiography Diagnostic Testing: Radiology Impression Chest CT 01/07/22 13:20 IMPRESSION: Opacification visualized in the right hemithorax suggestive of consolidations, cannot rule out underlying masses. No evidence of significant right pleural fluid is seen. Electronically Signed: Steve Meyer MD at 14:45 EDT Reading Location ID and State: [facility] / [place] Tel , Service support , D/C Instructions Discharge Diet: Low fat / Low cholesterol and 1800 Calorie Control Diet Discharge Activity: Return to Normal Activity and Use Walker Call your doctor if you observe: Fever of 101 or Higher, Shortness of breath, Dizziness and Swelling in the ankles Meaningful Use Info Meaningful Use Diagnoses (Choose all that apply): None applicable Discharge Plan Admission Admit Date/Time: 12/31/21 23:37 Primary Reason for Your Visit: Acute on Chronic Respiratory Failure Attending Provider: Mat Miramontes Primary Care Provider: Senait Jay Consulting Providers: Mindy Painter ; Junior Ovalles ; Mat Miramontes ; Isreal Childress Discharge Orders/Prescriptions Prescriptions: New prednisone 20 mg Tablet 20 mg PO DAILYCM Qty: 0 0RF menthol-zinc oxide [Calmoseptine] 0.44-20.6 % Ointment 1 applic topical 4X/DAY Qty: 0 0RF Protocol: *Topical Application Instructions APPLICATION INSTRUCTIONS: apply to affected region Continued cholecalciferol (vitamin D3) 50,000 UNIT capsule 50,000 unit PO SUWE@0800 albuterol sulfate 2.5 MG/3 ML solution for nebulization 2.5 mg INHALATION Q2H PRN PRN (Reason: Dyspnea, wheezing) Qty: 1 0RF albuterol sulfate [ProAir HFA] 1 PUFF inhaler 2 puff inhalation Q6H PRN PRN (Reason: Dyspnea/Wheezing/Sob) budesonide [Rhinocort Allergy] 8.43 ML spray,non-aerosol 2 puff NARES DAILY paroxetine HCl [Paxil] 40 mg Tablet 40 mg PO DAILY nadolol 40 mg tablet 40 mg PO DAILY Label Comments: take 1 tablet by mouth once daily fluticasone furoate-vilanterol [Breo Ellipta] 200-25 mcg/dose blister with device 2 inh INHALATION DAILY Label Comments: inhale 1 puff by mouth INTO THE LUNGS once daily (USE GOOD ORAL CARE AFTER USE) Humulin R U-500 (Conc) Kwikpen 500 unit/mL (3 mL) insulin pen 65 unit SUBCUT DINNER Label Comments: INJECT 95 UNITS SUBCUTANEOUSLY DAILY BEFORE BREAKFAST AND 85 UNIT... (REFER TO PRESCRIPTION NOTES). acetaminophen [Tylenol] 325 mg Tablet 650 mg PO Q6H PRN PRN (Reason: Pain 1-10 Or Fever) Qty: 0 0RF amiodarone 200 mg Tablet 100 mg PO BID 30 Days Qty: 30 0RF hydralazine 10 mg Tablet 10 mg PO TID 30 Days Qty: 90 0RF Mucus Relief ER 1,200 mg Tablet Extended Release 12hr 1,200 mg PO BID Qty: 0 0RF apixaban 5 mg tablet 5 mg PO BID Qty: 60 0RF Hold Instructions: Resume on 12/31/21. nystatin [Nyamyc] 100,000 unit/gram Powder 1 applic topical BID Qty: 0 0RF Protocol: *Topical Application Instructions APPLICATION INSTRUCTIONS: groin, abdominal folds, under R breast dextromethorphan-guaifenesin 10-100 mg/5 mL Syrup 10 ml PO Q6H PRN PRN (Reason: Cough) Qty: 0 0RF Discontinued Zosyn in dextrose (iso-osm) 3.375 gram/50 mL piggyback 3.375 g IV Q8H 5 Days Qty: 843.75 0RF Rx Instructions: stop date 01/05/22 dx: pseudomonas infection weekly bmp and CBC while on iv abx. Fax to [phone] budesonide 0.5 mg/2 mL Suspension For Nebulization 0.5 mg inhalation BID.RT Qty: 0 0RF prednisone 10 mg tablet See Taper PO BID Qty: 21 0RF Taper: Prednisone Taper 20 mg WITH BREAKFAST for 3 Days and 0 Hour 10 mg WITH BREAKFAST for 3 Days and 0 Hour Referrals / Follow Up: Senait Jay MD [Primary Care Provider] - Disposition Disposition (needs filled in before D/C Order can be placed): Senior Living Facility Documented by User: Dr. Mat Miramontes DO 01/08/22 16:14 Providers Date of Admission: 12/31/21 Reason For Visit: RESPIRATORY FAILURE, CO2 NARCOSIS Diagnosis Discharge Diagnosis (1) Acute and chronic respiratory failure with hypoxia: Status: Acute Code(s): J96.21 - Acute and chronic respiratory failure with hypoxia Medications at Discharge Home Medications cholecalciferol (vitamin D3) 1,250 mcg (50,000 unit) capsule 50,000 unit PO SUWE@0800 SUPPLEMENT 06/01/17 albuterol sulfate 2.5 mg/3 mL (0.083 %) solution for nebulization 2.5 mg (3 mL) inhalation Q2H PRN PRN Dyspnea, wheezing ##1 11/26/17 albuterol sulfate 90 mcg/actuation aerosol inhaler (ProAir HFA) 2 puff inhalation Q6H PRN PRN Dyspnea/Wheezing/Sob 03/25/18 budesonide 32 mcg/actuation nasal spray (Rhinocort Allergy) 2 puff DAILY ALLERGIES 06/12/18 fluticasone furoate 200 mcg-vilanterol 25 mcg/dose inhalation powder (Breo Ellipta) 2 inh inhalation DAILY sob 12/09/21 insulin regular hum U-500 conc 500 unit/mL(3 mL) subcut pen (Humulin R U-500 (Conc) Insulin Kwikpen) 65 unit subcut DINNER diabetes 12/09/21 nadolol 40 mg tablet 40 mg PO DAILY heart 12/09/21 paroxetine HCl 40 mg tablet (Paxil) 40 mg PO DAILY mood 12/09/21 acetaminophen 325 mg tablet (Tylenol) 650 mg PO Q6H PRN PRN Pain 1-10 Or Fever #0 tabs 12/16/21 amiodarone 200 mg tablet 100 mg PO BID 30 days #30 tabs 12/16/21 guaifenesin 1,200 mg tablet, extended release 12 hr (Mucus Relief ER) 1,200 mg PO BID #0 tabs 12/16/21 hydralazine 10 mg tablet 10 mg PO TID 30 days #90 tabs 12/16/21 apixaban 5 mg tablet 5 mg PO BID #60 tabs 12/17/21 nystatin 100,000 unit/gram topical powder (Nyamyc) 1 applic topical BID #0 grams 12/30/21 dextromethorphan-guaifenesin 10 mg-100 mg/5 mL oral syrup 10 ml PO Q6H PRN PRN Cough #0 mL 12/31/21 menthol 0.44 %-zinc oxide 20.6 % topical ointment (Calmoseptine) 1 applic topical 4X/DAY #0 grams 01/08/22 prednisone 20 mg tablet 20 mg PO DAILYCM #0 tabs 01/08/22 ABG / Lab / Microbiology Data Result Diagrams: 01/06/22 06:30 01/06/22 06:30 Discharge Plan Admission Admit Date/Time: 12/31/21 23:37 Primary Reason for Your Visit: Acute on Chronic Respiratory Failure Attending Provider: Mat Miramontes Primary Care Provider: Senait Jay Consulting Providers: Mindy Painter ; Junior Ovalles ; Mat Miramontes ; Isreal Childress Discharge Orders/Prescriptions Prescriptions: New prednisone 20 mg Tablet 20 mg PO DAILYCM Qty: 0 0RF menthol-zinc oxide [Calmoseptine] 0.44-20.6 % Ointment 1 applic topical 4X/DAY Qty: 0 0RF Protocol: *Topical Application Instructions APPLICATION INSTRUCTIONS: apply to affected region Continued cholecalciferol (vitamin D3) 50,000 UNIT capsule 50,000 unit PO SUWE@0800 albuterol sulfate 2.5 MG/3 ML solution for nebulization 2.5 mg INHALATION Q2H PRN PRN (Reason: Dyspnea, wheezing) Qty: 1 0RF albuterol sulfate [ProAir HFA] 1 PUFF inhaler 2 puff inhalation Q6H PRN PRN (Reason: Dyspnea/Wheezing/Sob) budesonide [Rhinocort Allergy] 8.43 ML spray,non-aerosol 2 puff NARES DAILY paroxetine HCl [Paxil] 40 mg Tablet 40 mg PO DAILY nadolol 40 mg tablet 40 mg PO DAILY Label Comments: take 1 tablet by mouth once daily fluticasone furoate-vilanterol [Breo Ellipta] 200-25 mcg/dose blister with device 2 inh INHALATION DAILY Label Comments: inhale 1 puff by mouth INTO THE LUNGS once daily (USE GOOD ORAL CARE AFTER USE) Humulin R U-500 (Conc) Kwikpen 500 unit/mL (3 mL) insulin pen 65 unit SUBCUT DINNER Label Comments: INJECT 95 UNITS SUBCUTANEOUSLY DAILY BEFORE BREAKFAST AND 85 UNIT... (REFER TO PRESCRIPTION NOTES). acetaminophen [Tylenol] 325 mg Tablet 650 mg PO Q6H PRN PRN (Reason: Pain 1-10 Or Fever) Qty: 0 0RF amiodarone 200 mg Tablet 100 mg PO BID 30 Days Qty: 30 0RF hydralazine 10 mg Tablet 10 mg PO TID 30 Days Qty: 90 0RF Mucus Relief ER 1,200 mg Tablet Extended Release 12hr 1,200 mg PO BID Qty: 0 0RF apixaban 5 mg tablet 5 mg PO BID Qty: 60 0RF Hold Instructions: Resume on 12/31/21. nystatin [Nyamyc] 100,000 unit/gram Powder 1 applic topical BID Qty: 0 0RF Protocol: *Topical Application Instructions APPLICATION INSTRUCTIONS: groin, abdominal folds, under R breast dextromethorphan-guaifenesin 10-100 mg/5 mL Syrup 10 ml PO Q6H PRN PRN (Reason: Cough) Qty: 0 0RF Discontinued Zosyn in dextrose (iso-osm) 3.375 gram/50 mL piggyback 3.375 g IV Q8H 5 Days Qty: 843.75 0RF Rx Instructions: stop date 01/05/22 dx: pseudomonas infection weekly bmp and CBC while on iv abx. Fax to [phone] budesonide 0.5 mg/2 mL Suspension For Nebulization 0.5 mg inhalation BID.RT Qty: 0 0RF prednisone 10 mg tablet See Taper PO BID Qty: 21 0RF Taper: Prednisone Taper 20 mg WITH BREAKFAST for 3 Days and 0 Hour 10 mg WITH BREAKFAST for 3 Days and 0 Hour Referrals / Follow Up: Senait Jay MD [Primary Care Provider] - Disposition Disposition (needs filled in before D/C Order can be placed): Senior Living Facility Charges/Coding Addendum Addendum: Patient was seen and examined today independently of Madyson Olson, she appears medically stable at this time, we received preauthorization for her to go to an extended care facility today and I believe she is medically stable to be discharged. I talked briefly with her daughter who was in the room at the time of my examination. On examination she appeared in good health and spirits, she does not appear to be in any distress. Vital signs as documented. Skin warm and dry and without overt rashes. Neck without JVD, thyroid appears normal, trachea is midline, neck is supple. Lungs clear, normal air movement was noted. Heart exam notable for regular rhythm, normal sounds and absence of murmurs, rubs or gallops. Abdomen unremarkable and without evidence of organomegaly, masses, or abdominal aortic enlargement, bowel sounds are present in all 4 quadrants, no abdominal tenderness was noted.? Patient is morbidly obese.? Extremities nonedematous, no cyanosis was noted, no clubbing was noted.? Neuro: Cranial nerves II through XII are grossly intact, no focal motor deficits were noted, sensation to light touch and pinprick is intact, motor exam 5/5 throughout.? Psych: Patient is alert and oriented x3, she does not appear anxious or depressed, she does not appear agitated. #1 acute on chronic combined respiratory failure-this is corrected at this time, patient is on her baseline oxygen #2 metabolic encephalopathy secondary to hypercapnia-this is resolved at this time #3 non-small cell lung cancer-complicates care, recovery, and prognosis #4 morbid obesity-complicates care, recovery, and prognosis #5 chronic right pleural effusion secondary to non-small cell lung cancer of the right lung-Pleurx catheter will be drained at intervals #6 paroxysmal atrial fibrillation-patient is on apixaban #7 acute debility-PT and OT will continue to see the patient, she will need placement in a senior living facility #8 asthma by history-patient will remain on prednisone at this time, I will decrease the dose #9 obstructive sleep apnea-patient is on BiPAP while sleeping, patient is noncompliant with this at times #10 essential hypertension-patient is to remain on current medication #11 Pseudomonas pneumonia-patient finished a course of antibiotics I have reviewed Madyson Olson's discharge summary including her medical assessment and plan of care and with the above additions endorse it. Total clinical time spent by myself addressing the patient's medical issues, reviewing the data, and collaborating with patient's care team: 25 minutes Visit Charges Inpatient E&M: [id number] Disch Hosp
--- NOTE | 2022-01-08 11:06 | CASEMGMT ---
Social Work SW received call from Vivian at [facility] and precert has been obtained. Physician notified and pt is ready for discharge today. ROMI met with pt, pt dgt Santa, pt son and his . Informed of above and all parties agreeable to discharge and requesting this happen as soon as possible. Pt has just received a new mask for Bipap from [employer] and pt/family requesting respiratory therapy check for fit. Pt stating she would like to go to SNF via cot but does get nausea when in ambulance and is worried about this. ROMI spoke with pt RN and informed about the nausea and request for medication prior to transport and request to see respiratory therapy. RN states she will take care of both of these concerns. 7000 convalescent form completed in [employer] system and faxed along with orders and negative covid results to [facility]. Transportation arranged with [facility] for 1200 poultry picking machine tender via cot. Pt, pt dgt, nursing and Vivian at [facility] notified of discharge time. Disposition: [facility], skilled level of care under convalescent stay. MICHAEL Alanis
[2022-01-08 11:36] LABS: Bedside Glucose 141 mg/dL (74-106)
[2022-01-08] MEDS: Ondansetron 4 MG/2 ML Vial IV (11:52)
[2022-01-08] MEDS: 0.9% Saline Lock 10 ML Syringe IV (11:53)
--- NOTE | 2022-01-08 13:29 | CASEMGMT ---
Social Work ROMI received call from Hadley, servicenow administrator developer at [facility] stating that the bipap settings that ROMI sent this morning did not have all of the needed information on them. Phone call to Respiratory who states SW should send pts home bipap setting from Dr. Watters's office to the facility. ROMI faxed the bipap settings that were provided from Dr. Watters's office to [facility]. CIRILO left with Hadley at [facility] informing that fax has been sent and the needed settings should be in this information. MICHAEL Alanis
--- NOTE | 2022-01-08 16:39 | CASEMGMT ---
Social Work 4:04 Phone call received from Hadley at [facility] stating he did not receive fax on bipap settings. ROMI informed Hadley VM was left and second call was placed to confirm first VM and again went to voicemail. Hadley also notified that Bipap settings from pt Can Washer office faxed to [facility] with fax confirmation of [phone]. Hadley apologizes but states he cannot find that fax. ROMI emailed pt bipap setting from Dr. Watters's office to Hadley and followed up with phone call. Hadley confirmed he received email with settings and that bipap will be obtained. 4:25 Hadley from [facility] called this SW and informed that bipap settings from ballast cleaning operator office are not the correct information and requesting [facility] respiratory therapy call Don at [facility] directly to discuss settings. ROMI placed call to Charge nurse Svitlana and informed of situation and requested for Respiratory to call [facility]. Svitlana confirms. MICHAEL Alanis
== END 2022-01-08 12:26 | disposition skilled nursing facility (03) | DRG 189 ==
LOC: ED 22:50 → ICU 01-01 00:39 → MS3 01-01 15:44
PROVIDERS: Family Medicine; Nurse Practitioner Family; Admitting Provider Family Medicine; Emergency Provider Emergency Medicine; PCP Internal Medicine; Visit Provider Internal Medicine
DX: J96.21 Acute and chronic respiratory failure with hypoxia (principal); G93.41 Metabolic encephalopathy; J15.1 Pneumonia due to Pseudomonas; J90 Pleural effusion, not elsewhere classified; C34.11 Malignant neoplasm of upper lobe, right bronchus or lung; Z68.42 Body mass index [BMI] 45.0-49.9, adult; E11.9 Type 2 diabetes mellitus without complications; D63.0 Anemia in neoplastic disease; Z99.81 Dependence on supplemental oxygen; E66.01 Morbid (severe) obesity due to excess calories; I48.0 Paroxysmal atrial fibrillation; J96.22 Acute and chronic respiratory failure with hypercapnia; Z79.4 Long term (current) use of insulin; J45.909 Unspecified asthma, uncomplicated; I10 Essential (primary) hypertension; G47.33 Obstructive sleep apnea (adult) (pediatric); E78.5 Hyperlipidemia, unspecified; E87.6 Hypokalemia; F41.9 Anxiety disorder, unspecified; G25.81 Restless legs syndrome; K90.0 Celiac disease; F32.A Depression, unspecified; F90.9 Attention-deficit hyperactivity disorder, unspecified type; R53.81 Other malaise; Z97.8 Presence of other specified devices; Z79.01 Long term (current) use of anticoagulants; Z79.899 Other long term (current) drug therapy; Z87.891 Personal history of nicotine dependence
CPT/HCPCS: 36415; 36600; 71045; 71046; 71250; 80048; 80053; 82803; 82962; 83605; 84484; 85025; 87426; 93005; 94002; 94003; 94640; 94762; 97110; 97162; 97166; 97530; 97535; 99285; J7030; A4216; J2405

== ENCOUNTER → 2022-01-15 | Outpatient (REF) | payer MEDICARE, SELFPAY ==
[2022-01-15 08:57] LABS: Hematocrit 29.7 % (37-47); Hemoglobin 8.8 g/dL (12.0-15.0); Mean Corp Hgb Conc 29.6 g/dL (32-36); Mean Corpuscular Hgb 27.1 pg (27.0-32.0); Mean Corpuscular Volume 91.4 fL (81-99); Mean Platelet Vol. 9.9 fl (6.2-12.0); Platelet Count 288 K/mm3 (150-450); RBC Distribution Width CV 15.7 % (11.6-14.6); RBC Distribution Width SD 51.8 fl (35.1-43.9); Red Blood Count 3.25 M/mm3 (4.2-5.4); White Blood Count 15.4 K/mm3 (4.4-11.0)
[2022-01-15 09:21] LABS: Vitamin D,25 Hydroxy 83.4 ng/mL
[2022-01-15 09:27] LABS: Hemoglobin A1c 6.4 % (3.8-5.6)
[2022-01-15 09:34] LABS: ALB/GLOB Ratio 0.5 RATIO (0.9-2.4); AST(SGOT) 26 U/L (15-37); Alanine Aminotransfer ALT/SGPT 35 U/L (13-56); Albumin, Serum 2.1 g/dL (3.2-5.0); Alkaline Phosphatase 145 U/L (45-117); Anion Gap 5 (5-15); BUN 23 mg/dL (7-18); BUN/Creat Ratio 34.9 RATIO (10-20); Calcium,Total 8.8 mg/dL (8.5-10.1); Chloride 102 mmol/L (98-107); Creatinine, Serum 0.66 mg/dL (0.55-1.02); EST Glomerular Filtration Rate 93 mL/min (>60); Est Glom Filt Rate - Afr Amer 112 mL/min (>60); Globulin 4.2 g/dL (2.2-4.2); Glucose 72 mg/dL (74-106); Magnesium 1.9 mg/dL (1.6-2.6); Potassium 3.8 mmol/L (3.5-5.1); Protein, Total 6.3 g/dL (6.4-8.2); Sodium Level 138 mmol/L (136-145); Thyroid Stim Hormone (TSH) 1.58 uIU/mL (0.358-3.74)
== END ==
LOC: OLS.ACW100 05:00
PROVIDERS: PCP Internal Medicine; Visit Provider Family Medicine
DX: C34.90 Malignant neoplasm of unspecified part of unspecified bronchus or lung (principal); J96.11 Chronic respiratory failure with hypoxia; C50.011 Malignant neoplasm of nipple and areola, right female breast; E11.9 Type 2 diabetes mellitus without complications
CPT/HCPCS: 36415; 80053; 82306; 83036; 83735; 84443; 85027

== ENCOUNTER → 2022-02-10 | Outpatient (REF) | payer MEDICARE, SELFPAY ==
[2022-02-10 09:51] LABS: Absolute Lymphocyte Count 1.11 X10^3/uL (0.83-4.51); Absolute Neutrophil Count 7.7 X10^3/uL (2.0-7.7); Basophil# 0.04 X10^3/uL; Basophil% 0.4 % (0-1); Eosinophil# 0.17 X10^3/uL; Eosinophils% 1.7 % (0-5); Hematocrit 30.9 % (37-47); Lymphocyte # 1.11 X10^3/ul (0.83-4.51); Lymphocyte % 11.1 % (19-41); Mean Corp Hgb Conc 29.1 g/dL (32-36); Mean Corpuscular Hgb 25.6 pg (27.0-32.0); Mean Corpuscular Volume 87.8 fL (81-99); Mean Platelet Vol. 9.6 fl (6.2-12.0); NRBC Flagged by Analyzer 0 % (0-5); Neutrophil # 7.68 X10^3/uL (2.7-7.7); Neutrophil % 76.9 % (47-70); Platelet Count 287 K/mm3 (150-450); RBC Distribution Width CV 15.8 % (11.6-14.6); RBC Distribution Width SD 50.9 fl (35.1-43.9); Red Blood Count 3.52 M/mm3 (4.2-5.4)
[2022-02-10 10:04] LABS: Hemoglobin A1c 6.3 % (3.8-5.6)
[2022-02-10 10:13] LABS: ALB/GLOB Ratio 0.5 RATIO (0.9-2.4); AST(SGOT) 14 U/L (15-37); Alanine Aminotransfer ALT/SGPT 20 U/L (13-56); Albumin, Serum 2.1 g/dL (3.2-5.0); Alkaline Phosphatase 100 U/L (45-117); Anion Gap 9 (5-15); BUN 24 mg/dL (7-18); Calcium,Total 8.7 mg/dL (8.5-10.1); Chloride 98 mmol/L (98-107); Creatinine, Serum 0.92 mg/dL (0.55-1.02); EST Glomerular Filtration Rate 63 mL/min (>60); Est Glom Filt Rate - Afr Amer 76 mL/min (>60); Globulin 4.2 g/dL (2.2-4.2); Glucose 84 mg/dL (74-106); Potassium 3.6 mmol/L (3.5-5.1); Protein, Total 6.3 g/dL (6.4-8.2); Sodium Level 140 mmol/L (136-145); Thyroid Stim Hormone (TSH) 1.85 uIU/mL (0.358-3.74)
== END ==
LOC: OLS.ACW100 05:00
PROVIDERS: PCP Internal Medicine; Visit Provider Family Medicine
DX: C50.011 Malignant neoplasm of nipple and areola, right female breast (principal); C34.90 Malignant neoplasm of unspecified part of unspecified bronchus or lung; E11.9 Type 2 diabetes mellitus without complications; J96.11 Chronic respiratory failure with hypoxia
CPT/HCPCS: 36415; 80053; 83036; 84443; 85025

== ENCOUNTER → 2022-02-20 | Outpatient (CLI) | payer MEDICARE, SELFPAY ==
--- NOTE | 2022-02-20 11:36 | RAD_ITS ---
STUDY: X-RAY CHEST REASON FOR EXAM: Female, 76 years old. Pleurx catheter dislodged, poss pleural effusion TECHNIQUE: PA and lateral views of the chest. COMPARISON: Comparison is made with prior study 01/07/2022. FINDINGS: A left-sided PICC line catheter is seen in the superior vena cava. Surgical clips are seen overlying the lower right hemithorax. The previously seen right Pleurx catheter is not seen. Consolidation and minor loss in the right lung apex. Blunting of the right costophrenic angle. Normal size heart. Normal mediastinum and tanna. Normal visualized pulmonary arteries. There is atherosclerotic calcification of the aortic arch with tortuosity. There are diffuse degenerative changes of the visualized thoracic spine. Normal visualized ribs, clavicles, and shoulders. There is no demonstrated abnormality of the visualized soft tissue structures of the upper abdomen. RAD/Chest PA and Lateral IMPRESSION: The right Pleurx catheter is not seen at this time. Stable appearance of the left PICC line catheter. Volume loss and consolidation in the right upper lobe. Electronically Signed: Salazar Garcia MD at 12:06 EDT ,
== END | disposition home or self-care (01) ==
LOC: RAD 11:25
PROVIDERS: PCP Internal Medicine; Referring Provider Surgery; Visit Provider Surgery
DX: T85.898A Other specified complication of other internal prosthetic devices, implants and grafts, initial encounter (principal); X58.XXXA Exposure to other specified factors, initial encounter
CPT/HCPCS: 71046

== ENCOUNTER → 2022-02-27 | Outpatient (CLI) | payer MEDICARE, SELFPAY ==
[2022-02-27 10:28] VITALS: BP 122/55; PULSE 72; RESP 20; TEMP 36.8; O2SAT 99; BMI 49.2
== END | disposition home or self-care (01) ==
LOC: RAD 10:11
PROVIDERS: PCP Internal Medicine; Referring Provider Internal Medicine Hematology & Oncology; Visit Provider Internal Medicine Hematology & Oncology
DX: Z45.2 Encounter for adjustment and management of vascular access device (principal); C34.90 Malignant neoplasm of unspecified part of unspecified bronchus or lung
CPT/HCPCS: 36569

== ENCOUNTER → 2022-03-04 | Outpatient (CLI) | payer MEDICARE, SELFPAY ==
--- NOTE | 2022-03-04 12:30 | PET_ITS ---
EXAMINATION: FDG PET-CT INDICATIONS: A 76-year-old female with a history of primary lung carcinoma presenting for restaging examination. COMPARISON EXAMINATION: FDG PET CT study dated 11/12/21. INDEX LESION SIZE SUV INTERPRETATION PERSISTENT: Right upper lung nodular foci 24.7 mm comp to 35.8 mm, 11/12/21 3.2 max comp to 3.2, 11/12/21 Fulfills quantitative criteria for viable neoplasm with single point technique. PERSISTENT: Fourth lumbar vertebra pedicle right of the midline 8.1 comp to 3.3, 11/12/21 Fulfills quantitative criteria for viable neoplasm for osseous neoplasm. NON-INDEX LESION SIZE SUV INTERPRETATION PERSISTENT: Right upper lung field, right upper lobe diffuse 2.4 comp to 1.8, 11/12/21 Quantitative criteria for viable neoplasm are not fulfilled, most consistent with an inflammatory process (pneumonitis). TECHNIQUE: Following the intravenous administration of 12.93 mCi of F-18 deoxyglucose via the left upper extremity, multiplanar image acquisitions of the head, neck, chest, abdomen and pelvis to level of mid-thigh, lower extremities obtained at one hour post radiopharmaceutical administration contemporaneously interpreted with the current CT of the head, neck, chest, abdomen and pelvis to level of mid-thigh, lower extremities dated 03/04/22 via coregistration and FDG PET CT study dated 11/12/21 reveal: SERUM GLUCOSE LEVEL: 129 mg/dl. HEIGHT: 63 inches. WEIGHT: 279 lbs. FINDINGS: Head/Neck: There is no evidence of abnormal increased glucose metabolism in the pharyngeal mucosal space, parapharyngeal space, bilateral-lateral and anterior neck, hypopharynx and distribution of the laryngeal structures. The visualized portion of the cerebral cortical-subcortical structures demonstrate symmetric and preserved glucose metabolism. CHEST: Increased FDG concentration is noted in the right upper lung field, right upper lobe diffuse in presentation with a more nodular component in the right upper anterolateral hemithorax. The calculated maximum standard uptake value is 5.6/5.7. It is 3.2 unchanged from the examination dated 11/12/21. The location of the nodular component is more anterolateral and cephalad than the focus seen on the study dated 11/12/21. The maximum axial diameter of the metabolic, morphologic abnormality is 24.7 mm compared to 35.8 mm seen on the previous examination. A diffuse non-nodular increase in glucose uptake is otherwise noted in the right upper lung field. The calculated maximum standard uptake value is 2.4. Pertinent chest CT findings are as follows. A consolidative process is defined in the right upper lung field with enhanced FDG uptake as previously described. There is atherosclerotic calcification defined in the thoracic aorta without evidence of dilatation-aneurysm formation. Coronary arterial calcification is defined. Additional parenchymal changes defined in the bilateral hemithorax are nonglucose avid. There is evidence of a right mastectomy. Surgical clips are identified in the right axilla and anterior chest wall. Abdomen/Pelvis: Normal physiologic distribution of the radiopharmaceutical is apparent in the hepatic and splenic parenchyma, both renal units, bladder and visualized intestinal tract. Diffuse radiopharmaceutical concentration is noted in all four quadrants of the abdomen and pelvis. Pertinent abdomen and pelvis CT findings are as follows. A fat containing periumbilical hernia is noted. There is atherosclerotic calcification defined in the abdominal aorta without evidence of dilatation-aneurysm formation. Abdominal and pelvic arterial calcification is observed. The adrenal glands have a normal CT appearance. Colonic diverticulosis is noted without evidence of diverticulitis. Soft tissue nodule defined in the left lower anterior hemipelvic mesentery is nonglucose avid. Right and left inguinal soft tissue densities are ametabolic. Skeletal: Persistent increased FDG concentration is noted in the region of the fourth lumbar vertebra to the right of the midline in proximity to the pedicle. The calculated maximum standard uptake value is 8.1 compared to 3.3 defined on the previous examination. PET/PET/CT Tumor Base -Thigh Subs IMPRESSION: 1. ABNORMAL EXAMINATION INDICATIVE OF MALIGNANT-VIABLE NEOPLASM. 2. A nodular component of enhanced GLUCOSE metabolism noted in the right upper lung field fulfills quantitative criteria for viable neoplasm with single point technique. Histopathologic analysis may be indicated. 3. Enhanced FDG uptake redefined in the region of the fourth lumbar vertebra to the right of the midline in proximity to the right pedicle fulfills quantitative criteria for viable osseous neoplasm. (Murray et al, Clinical Nuclear Medicine, 29:161, 2004). 4. Diffuse non-nodular enhanced radiopharmaceutical concentration noted in the right upper lung field is most consistent with an inflammatory process (pneumonitis). 5. Overall, compared to the prior FDG PET CT study dated 11/12/21, there is apparent persistent viable neoplasm localized to a different location in the right upper lung field as defined above. There is interim metabolic progression of defined viable neoplasm within the fourth lumbar vertebra as articulated above. Electronic Signature Jose Seymour D.O. Accurate Quantification of SUVs for this report are calculated using the exclusive [employer] Technology. (U.S. Patent No. 10, 674, 983). Standardization and correction of the FDG SUV metric via ACCUQUAN technology allow for vendor non-specific objective quantitative examination comparison and optimization of the sensitivity and specificity of the FDG PET-CT examination. Electronically Signed: Jose Seymour, at 16:23 EDT ,
== END | disposition home or self-care (01) ==
LOC: ONC 12:25
PROVIDERS: PCP Internal Medicine; Referring Provider Internal Medicine Hematology & Oncology; Visit Provider Internal Medicine Hematology & Oncology
DX: C34.11 Malignant neoplasm of upper lobe, right bronchus or lung (principal)
CPT/HCPCS: 78815; A9552

== ENCOUNTER 2022-03-05 12:34 | Day surgery (SDC) | payer MEDICARE, SELFPAY ==
[2022-03-05] VITALS (7 sets, daily range): BP systolic 91–118; BP diastolic 43–67; PULSE 67–73; RESP 18–20; TEMP 36.1–36.6; O2SAT 93–100; BMI 50.1
[2022-03-05] MEDS: Lactated Ringers 1,000 ML 15 ML IV (13:17)
[2022-03-05] MEDS: 0.9 % NaCl (Sterile) Posiflush 10 mL IV (13:19)
[2022-03-05] MEDS: Ipratropium/Albuterol Sulfate 3 ML AMPUL.NEB INHALATION (13:28)
--- NOTE | 2022-03-05 13:30 | IMM_PTH ---
PATIENT: ALESSANDRO DOTSON LOC: EN U#:[id number] AGE/SX: 76/F ROOM: RE03/05/[address]: Dr. Manoj Medina MD : 1945 BED: DIS: 03/05/2022 SPEC #: [id number] RECD: 03/06/22 12:36 STATUS: SOUAnabella REQ #: [id number] HELEN: 03/05/22 13:[address]: Manoj Medina DEPT: IMMUNOHISTOCHEMISTRY RECD BY: Amber Park ENTERED: 03/06/22 12:37 SP TYPE: IMMUNO OTHR DR: Dr. Senait Jay MD Tissues: B - Stomach, NOS Procedures: H Pylori (initial) PHYSICIAN & INSTITUTION [place] [address] SPECIMEN INFORMATION: Tissue Source: B ? Gastric antrum biopsy Clinical Info: Dark stools Specimen Number: [id number] CPT code: 96718 METHODOLOGY: Deparaffinized sections of prefer/formalin-fixed tissue or PAP/DQ stained slides are incubated with monoclonal/polyclonal antibodies/oligonucleotide probes. Localization is made via biotin free immunoperoxidase method. Appropriate controls are performed and reacted as expected. Results on target cell population are indicated in the following table: RESULTS: ANTIBODY / CLONE RESULT Block B H Pylori (polyclonal) negative These tests were developed and their performance characteristics determined by [facility]. They may not have been cleared or approved by the U.S. Food and Drug Administration. The FDA has determined that such clearance or approval is not necessary. The above immunohistochemical/dualISH markers are ordered and reviewed by the Pathologist. INTERPRETATION: B. Gastric antrum, biopsy: Negative for Helicobacter pylori organisms. AM:dania 03/09/2022
--- NOTE | 2022-03-05 13:30 | EGD_PTH ---
PATIENT: ALESSANDRO DOTSON LOC: EN U#:[id number] AGE/SX: 76/F ROOM: RE03/05/[address]: Dr. Manoj Medina MD : 1945 BED: DIS: 03/05/2022 SPEC #: [id number] RECD: 03/05/22 15:03 STATUS: TANO REBernardo #: [id number] HELEN: 03/05/22 13:[address]: Manoj Medina DEPT: SURGICAL PATHOLOGY RECD BY: Cara Brian ENTERED: 03/06/22 09:48 SP TYPE: EGD BIOPSY OT DR: Dr. Senait Jay MD Tissues: A - Duodenum, NOS B - Gastric mucous membrane C - Gastric mucous membrane D - Stomach, NOS Procedures: Special Stain Group II Surgery Specimen Level IV Alcian Blue/PAS (control) HEADER OPERATION: EGD (MAC), biopsy, electrohemostasis PRE-OP DIAGNOSIS: Dark stools TISSUE SUBMITTED: A ? Duodenal bulb biopsy, B ? Gastric antrum biopsy, C ? Gastric body polyp biopsy, D ? Gastroesophageal junction biopsy MICROSCOPIC DIAGNOSIS A. Duodenal bulb, biopsy: Gastric metaplasia. Mild chronic inflammation. B. Gastric antrum, biopsy: Chronic gastritis. See comment. C. Gastric body polyp, biopsy: Polypoid fragment of benign gastric mucosa with mild chronic inflammation. D. Gastroesophageal junction, biopsy: Chronic inflammation. No evidence of goblet cell metaplasia. See comment. AM:dania 03/09/2022 COMMENT B. The results of immunohistochemistry for Helicobacter pylori will be reported separately ([id number]). D. Alcian blue/PAS stain with matched control supports the above diagnosis. MICROSCOPIC DESCRIPTION Slides are reviewed. GROSS DESCRIPTION A - Received in fixative is one container labeled with the patient's name and designated duodenal bulb biopsy. The specimen consists of two irregular fragments of light savage soft tissue that in aggregate measure 0.8 x 0.4 x 0.1 cm. The specimen is totally submitted in one cassette. B - Received in fixative is one container labeled with the patient's name and designated gastric antrum biopsy. The specimen consists of one irregular fragment of light savage soft tissue that measures 0.4 x 0.3 x 0.1 cm. The specimen is totally submitted in one cassette. C - Received in fixative is one container labeled with the patient's name and designated gastric body polyp biopsy. The specimen consists of one irregular fragment of light savage soft tissue that measures 0.3 x 0.3 x 0.1 cm. The specimen is totally submitted in one cassette. D - Received in fixative is one container labeled with the patient's name and designated GE junction biopsy. The specimen consists of two irregular fragments of light savage soft tissue that in aggregate measure 0.8 x 0.3 x 0.1 cm. The specimen is totally submitted in one cassette. / SJ:rg 03/06/2022 TC:3 CPT: 39653 x4, 94797
[2022-03-05 13:31] LABS: Bedside Glucose 72 mg/dL (74-106)
--- NOTE | 2022-03-05 14:02 | PCM.HP.BLA ---
History and Physical Date of Admission: 03/05/22 Date of Service:? 02/27/22 MR#: [id number] Acct: [id number] Name:? ALESSANDRO DOTSON Rep #: [id number] : 1945 ? ? Provider: Dr. Manoj Medina MD Age/Sex:? 76/F ? ? Location: [facility] [place] Status: Signed Intake Vital Signs ? 01/05/2211:42 02/27/2210:28 02/27/2213:30 Height 5 ft 3 in 5 ft 3 in ? Weight: ? 278 lb ? BMI ? 49.2 ? BP ? 122/55 H 132/86 H Blood Pressure Location ? ? Rt popliteal Position ? Semi-Fowlers Semi-Fowlers Respiration ? 20 H 18 Pulse ? 72 71 Pulse Source ? ? Monitor Temp ? 98.2 F 97.4 F L Temp Source ? Oral Temporal Pulse Oximetry (%) ? 99 94 Oxygen Delivery Method ? ? nasal canula Intake Visit Reasons:?Check pleurx cath R chest. CHEST PORT PLACEMENT Chief Complaint: Check pleurx cath site, discuss chest port placement & EGD Fabrication Lead Required: No Is patient in pain?: No Allergies adhesive tape Allergy (Verified 02/27/22 13:32) tears skincefadroxil [From Duricef] Allergy (Verified 02/27/22 13:32) Unknowngluten Allergy (Verified 02/27/22 13:32) celiac diseasemesalamine [From Asacol] Allergy (Verified 02/27/22 13:32) Unknownomalizumab [From Xolair] Allergy (Verified 02/27/22 13:32) UnknownSulfa (Sulfonamide Antibiotics) Allergy (Verified 02/27/22 13:32) swelling as an infantoxycodone Adverse Reaction (Verified 02/27/22 13:32) Vomiting Medications cholecalciferol (vitamin D3) 1,250 mcg (50,000 unit) capsule 50,000 unit PO SUWE@0800 SUPPLEMENT 06/01/17 [History Confirmed 02/27/22] albuterol sulfate 2.5 mg/3 mL (0.083 %) solution for nebulization 2.5 mg (3 mL) inhalation Q2H PRN PRN Dyspnea, wheezing ##1 11/26/17 [Rx Confirmed 02/27/22] albuterol sulfate 90 mcg/actuation aerosol inhaler (ProAir HFA) 2 puff inhalation Q6H PRN PRN Dyspnea/Wheezing/Sob 03/25/18 [History Confirmed 02/27/22] budesonide 32 mcg/actuation nasal spray (Rhinocort Allergy) 2 puff DAILY ALLERGIES 06/12/18 [History Confirmed 02/27/22] fluticasone furoate 200 mcg-vilanterol 25 mcg/dose inhalation powder (Breo Ellipta) 2 inh inhalation DAILY sob 12/09/21 [History Confirmed 02/27/22] insulin regular hum U-500 conc 500 unit/mL(3 mL) subcut pen (Humulin R U-500 (Conc) Insulin Kwikpen) 65 unit subcut DINNER diabetes 12/09/21 [History Confirmed 02/27/22] nadolol 40 mg tablet 40 mg PO DAILY heart 12/09/21 [History Confirmed 02/27/22] paroxetine HCl 40 mg tablet (Paxil) 40 mg PO DAILY mood 12/09/21 [History Confirmed 02/27/22] acetaminophen 325 mg tablet (Tylenol) 650 mg PO Q6H PRN PRN Pain 1-10 Or Fever #0 tabs 12/16/21 [Rx Confirmed 02/27/22] amiodarone 200 mg tablet 100 mg PO BID 30 days #30 tabs 12/16/21 [Rx Confirmed 02/27/22] guaifenesin 1,200 mg tablet, extended release 12 hr (Mucus Relief ER) 1,200 mg PO BID #0 tabs 12/16/21 [Rx Confirmed 02/27/22] hydralazine 10 mg tablet 10 mg PO TID 30 days #90 tabs 12/16/21 [Rx Confirmed 02/27/22] nystatin 100,000 unit/gram topical powder (Nyamyc) 1 applic topical BID #0 grams 12/30/21 [Rx Confirmed 02/27/22] dextromethorphan-guaifenesin 10 mg-100 mg/5 mL oral syrup 10 ml PO Q6H PRN PRN Cough #0 mL 12/31/21 [Rx Confirmed 02/27/22] menthol 0.44 %-zinc oxide 20.6 % topical ointment (Calmoseptine) 1 applic topical 4X/DAY #0 grams 01/08/22 [Rx Confirmed 02/27/22] prednisone 20 mg tablet 20 mg PO DAILYCM #0 tabs 01/08/22 [Rx Confirmed 02/27/22] apixaban 5 mg tablet (Eliquis) 5 mg PO BID 02/27/22 [History Confirmed 02/27/22] PFSH Medical History? Acute and chronic respiratory failure with hypoxia Acute bronchitis due to Rhinovirus Acute severe exacerbation of asthma Allergic rhinitis Anemia Anxiety Aspiration pneumonitis Asthma Asthmatic bronchitis Atrial fibrillation Atrial fibrillation with RVR BiPAP (biphasic positive airway pressure) dependence Body mass index (BMI) 50-59.9, adult Breast cancer Chronic diarrhea Chronic respiratory failure with hypoxia Dependence on supplemental oxygen Depression Diabetes Diabetes mellitus, type II Former smoker Former tobacco use GERD (gastroesophageal reflux disease) History of primary non-small cell carcinoma of right lung History of right breast cancer Hypertension Immunosuppressed due to chemotherapy Migraine headache Migraines Obstructive sleep apnea On home oxygen therapy Osteoarthritis Pneumonia Sleep apnea Vitamin D deficiency Surgical History? H/O rectocele repair History of lymph node dissection of right axilla History of mastectomy History of partial hysterectomy Hx of bilateral cataract extraction Hx of carpal tunnel repair Family History? Father Cancer Myocardial infarctionMother Cancer ?? ? Metastatic breast CA Social History? household members:? spouse Smoking Status:? Former smoker how long ago did patient quit smoking:? Smoked x 2 years 1/2 ppd, quit ~ 50 years prior. alcohol intake:? never substance use type:? does not use HPI HPI HPI: Patient presents for wound check after her Pleurx catheter was found to be displaced at her last visit (02/20/2022).? I was also telephoned by patient's covering oncologist, Dr. Pires, on 02/24/2022 that he has concerns that Mrs. Jose Manuel Garcia may have a underlying upper GI bleed since she reported melena during a recent visit.? Lastly, I have been asked to see her for evaluation of possible Port-A-Cath placement given a need for durable venous access with ongoing immunotherapy infusions.? Patient presents with her [id number] for this visit.? She denies any respiratory concerns and confirms that she is remained stable with respect to her respiratory status on 4 L nasal cannula since her last visit.? They state they are late to today's visit, because there was difficulty in inserting a PICC line in the left upper extremity for planned iron infusions. Patient states that her experience of melena was limited to only 1 bowel movement.? She admits this followed her infusion of immunotherapy and that she has not yet begun iron infusions.? Otherwise she denies any recent constipation or straining.? She states the character of her bowel movements are relatively brown and hard.? She denies any bleeding.? She reports that she had an EGD well over 15 years ago and was told that her flap of her stomach does not close all the way and this is the reason that she has reflux.? She states that she has ongoing problems with reflux but tries to limit the foods that trigger this from her diet.? However, she reports she had some spaghetti with marinara sauce last evening which did not trigger any symptoms.? 1 month ago she was taking Prevacid regularly, but was advised to hold this medication due to concern for interaction with another one of her more critical medications. Patient states that she stopped her Eliquis on 02/25/2022 in anticipation of today's visit.? She denies ever having a central line placed and confirms that her chemotherapy for her right breast cancer a decade ago was placed via upper extremity access.? Her vascular access presently consists of a nonfunctional left upper extremity brachial subcutaneous port as well as her new PICC line on that side.? She and her [id number] report that the new PICC line is placed for anticipated iron infusions beginning next week.? They state her next appointment for immunotherapy is scheduled for March 23. Exam Const General: cooperative and no acute distress Orientation: alert, awake and oriented x3 Chest Other: Well-healed right chest Pleurx catheter exit site without signs of infection Resp Effort & Inspection: normal respiratory effort (For patient) and able to speak in complete sentences Other: Patient with persistent deep bronchial cough Extrem Other: Patient with left upper extremity PICC line and chlorhexidine dressing.? There is some slight oozing from around the catheter.? Just inferior to this by approximately 3 cm she has a subcutaneous port for her nonfunctional vascular access.? There is no overlying erythema or significant tenderness in this location. Assessment and Plan Assessment and Plan (1) Complication of chest tube: ?Status:?Acute ?Comment: This is a 76-year-old female who is status post right Pleurx tube insertion for recurrent pleural effusions in December 2021.? I was asked to see her urgently for concerns of possible infection, however, with further eliciting history from patient and her daughter as well as [id number], it became quickly apparent that there is actually concern for catheter dislodgment.? This was confirmed and patient was evaluated with an emergent chest x-ray that showed her to have no concerns for pneumothorax.? She reports no significant change since her visit a week ago and has remained stable on her baseline oxygen requirement of 4 L nasal cannula.? The exit site for the Pleurx drain has a noninfected appearance and is well-healing. ?Plan: ? No further intervention required (2) Lung cancer: ?Status:?Acute ?Comment: Patient with recurrent right lung cancer (right upper lobe stage IIIa?poorly differentiated adeno) status post definitive chemoradiation.? She is currently receiving immunotherapy(nivolumab).? Oncology has requested consideration of Port-A-Cath placement for these infusions.? She reports her next infusion is scheduled for March 23, 2022.? In the interim she has had a left upper extremity PICC line placed for iron infusions.? We will query oncology as to whether they would like to still proceed with Port-A-Cath placement given the presence of this alternative vascular access.? Otherwise, we will plan for right versus left internal jugular Port-A-Cath placement under MAC sedation and removal of patient's existing left upper extremity brachial subcutaneous port. ?Plan: ? Tentatively planning for right versus left Port-A-Cath placement with simultaneous removal of left upper extremity nonfunctional port (3) Dark stools: ?Status:?Acute ?Comment: Patient with a single episode of dark stools.? I have clarified with her that this was not related to any iron infusion (this is due to be administered next week).? She is adamant that this was a singular episode that has not been seen again.? Still, given her persistent anemia and history it is reasonable to pursue EGD to investigate for a possible upper GI source of bleeding as requested by oncology. ?Plan: ? Plan for diagnostic EGD under local MAC at first mutually agreeable date I have re-examined the patient. There are no clinical changes since date of exam. Patient states that she is remained stable healthwise since our last encounter. She denies any further observation of darker stools. She denies any abdominal discomfort. We will plan to proceed with diagnostic EGD under local MAC as discussed above for evidence of anemia and report of melena x1.
--- NOTE | 2022-03-05 14:56 | OP.CCLET_ITS ---
03/05/2022 Senait Jay [address] [place] [address] Re : Upper GI endoscopy procedure for Daily Garcia Dear Dr. Jay This procedure was performed on February. My impressions and recommendations are as follows: Impressions : - Multiple duodenal polyps. Biopsied. - Gastritis. Biopsied. - A few gastric polyps. Biopsied. - Medium-sized hiatal hernia. No specimens collected. - Z-line irregular. Biopsied. - The examination was otherwise normal. Recommendations : - Discharge patient to home (via wheelchair). - Full liquid diet for 1 week. - Continue present medications. - Await pathology results. - Telephone my office for pathology results in 1 week. - Resume Eliquis (apixaban) at prior dose in 3 days. My findings are described in the full procedure note, which is enclosed. If I can be of further assistance, please feel free to contact me at Doctor phone number(s): , Work: . Sincerely, Manoj Medina MD 03/05/2022 2:55:59 PM This report has been signed electronically.
--- NOTE | 2022-03-05 14:56 | OP.EGD_ITS ---
Patient Name: Daily Garcia Procedure Date: 03/05/2022 1:58 PM Date of : 1945 Age: 76 Procedure: Upper GI endoscopy Indications: Iron deficiency anemia, Melena Providers: Manoj Medina MD Referring MD: Manoj Medina MD Medicines: Monitored Anesthesia Care Patient Profile: Refer to note in patient chart for documentation of history and physical. Complications: No immediate complications. Estimated blood loss: Minimal. Procedure: Pre-Anesthesia Assessment: - The heart rate, respiratory rate, oxygen saturations, blood pressure, adequacy of pulmonary ventilation, and response to care were monitored throughout the procedure. After obtaining informed consent, the endoscope was passed under direct vision. Throughout the procedure, the patient's blood pressure, pulse, and oxygen saturations were monitored continuously. The Endoscope was introduced through the mouth, and advanced to the second part of duodenum. The upper GI endoscopy was accomplished without difficulty. The patient tolerated the procedure well. Scope In: 2:08:08 PM Scope Out: 2:44:26 PM Total Procedure Duration Time 0 hours 36 minutes 18 seconds Findings: Multiple 5 mm semi-sessile polyps with no bleeding were found in the duodenal bulb. Biopsies were taken with a cold forceps for histology. Estimated blood loss was minimal. Localized mild inflammation characterized by erythema was found in the gastric antrum. Biopsies were taken with a cold forceps for histology. Estimated blood loss was minimal. A few 5 mm semi-sessile polyps with no bleeding and no stigmata of recent bleeding were found in the gastric body. Biopsies were taken with a cold forceps for histology. A medium-sized hiatal hernia was present. No biopsies or other specimens were collected for this exam. The Z-line was irregular. Biopsies were taken with a cold forceps for histology. Estimated blood loss: 5 mL requiring treatment with placement of hemostatic clip(s). The exam was otherwise without abnormality. Impression: - Multiple duodenal polyps. Biopsied. - Gastritis. Biopsied. - A few gastric polyps. Biopsied. - Medium-sized hiatal hernia. No specimens collected. - Z-line irregular. Biopsied. - The examination was otherwise normal. Recommendation: - Discharge patient to home (via wheelchair). - Full liquid diet for 1 week. - Continue present medications. - Await pathology results. - Telephone my office for pathology results in 1 week. - Resume Eliquis (apixaban) at prior dose in 3 days. Procedure Code(s): --- Professional --- 18711, Esophagogastroduodenoscopy, flexible, transoral; with biopsy, single or multiple Diagnosis Code(s): --- Professional --- K31.7, Polyp of stomach and duodenum K29.70, Gastritis, unspecified, without bleeding K44.9, Diaphragmatic hernia without obstruction or gangrene K22.8, Other specified diseases of esophagus D50.9, Iron deficiency anemia, unspecified K92.1, Melena (includes Hematochezia) CPT copyright 2017 [employer]. All rights reserved. The codes documented in this report are preliminary and upon senior regulatory affairs specialist review may be revised to meet current compliance requirements. Manoj Medina MD 03/05/2022 2:55:59 PM This report has been signed electronically. Number of Addenda: 0 Note Initiated On: 03/05/2022 1:58 PM
[2022-03-05] MEDS: Alteplase 2 MG/2 ML Vial IV (16:52)
== END 2022-03-05 17:14 | disposition home or self-care (01) ==
LOC: EN 12:35 → AC 12:37
PROVIDERS: PCP Internal Medicine; Referring Provider Surgery; Visit Provider Surgery
PROC: 0DJ08ZZ Inspection of Upper Intestinal Tract, Via Natural or Artificial Opening Endoscopic (ICD-10-PCS; CPT 43235; principal; 2022-03-05 13:25)
DX: K31.A0 Gastric intestinal metaplasia, unspecified (principal); C34.11 Malignant neoplasm of upper lobe, right bronchus or lung; I48.91 Unspecified atrial fibrillation; E11.9 Type 2 diabetes mellitus without complications; Z79.4 Long term (current) use of insulin; K44.9 Diaphragmatic hernia without obstruction or gangrene; K31.7 Polyp of stomach and duodenum; K29.50 Unspecified chronic gastritis without bleeding; K22.89 Other specified disease of esophagus; D50.9 Iron deficiency anemia, unspecified; K92.1 Melena; I10 Essential (primary) hypertension; E78.00 Pure hypercholesterolemia, unspecified; G47.33 Obstructive sleep apnea (adult) (pediatric); Z97.8 Presence of other specified devices; Z99.81 Dependence on supplemental oxygen; Z79.01 Long term (current) use of anticoagulants; Z79.899 Other long term (current) drug therapy; Z85.3 Personal history of malignant neoplasm of breast; Z87.891 Personal history of nicotine dependence
CPT/HCPCS: 43239; 82962; 88305; 88313; 88342; J2997; J7120; A4216

== ENCOUNTER 2022-03-09 12:00 | Day surgery (SDC) | payer MEDICARE, SELFPAY ==
[2022-03-09] VITALS (8 sets, daily range): BP systolic 85–119; BP diastolic 55–91; PULSE 72–76; RESP 18; TEMP 36.3–36.4; O2SAT 98–100; BMI 50.3
[2022-03-09] MEDS: Lactated Ringers 1,000 ML 15 ML IV (12:10)
[2022-03-09] MEDS: 0.9% Saline Lock 10 ML Syringe IV ×2 (12:48→18:10)
--- NOTE | 2022-03-09 13:05 | HP.PCM_ITS ---
History and Physical Date of Service:? 02/27/22 MR#: [id number] Acct: [id number] Name:? ALESSANDRO DOTSON Rep #: [id number] : 1945 ? ? Provider: Dr. Manoj Medina MD Age/Sex:? 76/F ? ? Location: [facility] Status: Signed Intake Vital Signs ? 01/05/2211:42 02/27/2210:28 02/27/2213:30 Height 5 ft 3 in 5 ft 3 in ? Weight: ? 278 lb ? BMI ? 49.2 ? BP ? 122/55 H 132/86 H Blood Pressure Location ? ? Rt popliteal Position ? Semi-Fowlers Semi-Fowlers Respiration ? 20 H 18 Pulse ? 72 71 Pulse Source ? ? Monitor Temp ? 98.2 F 97.4 F L Temp Source ? Oral Temporal Pulse Oximetry (%) ? 99 94 Oxygen Delivery Method ? ? nasal canula Intake Visit Reasons:?Check pleurx cath R chest. CHEST PORT PLACEMENT Chief Complaint: Check pleurx cath site, discuss chest port placement & EGD Check Weigher Required: No Is patient in pain?: No Allergies adhesive tape Allergy (Verified 02/27/22 13:32) tears skincefadroxil [From Duricef] Allergy (Verified 02/27/22 13:32) Unknowngluten Allergy (Verified 02/27/22 13:32) celiac diseasemesalamine [From Asacol] Allergy (Verified 02/27/22 13:32) Unknownomalizumab [From Xolair] Allergy (Verified 02/27/22 13:32) UnknownSulfa (Sulfonamide Antibiotics) Allergy (Verified 02/27/22 13:32) swelling as an infantoxycodone Adverse Reaction (Verified 02/27/22 13:32) Vomiting Medications cholecalciferol (vitamin D3) 1,250 mcg (50,000 unit) capsule 50,000 unit PO SUW E@0800 SUPPLEMENT 06/01/17 [History Confirmed 02/27/22] albuterol sulfate 2.5 mg/3 mL (0.083 %) solution for nebulization 2.5 mg (3 mL) inhalation Q2H PRN PRN Dyspnea, wheezing ##1 11/26/17 [Rx Confirmed 02/27/22] albuterol sulfate 90 mcg/actuation aerosol inhaler (ProAir HFA) 2 puff inhalation Q6H PRN PRN Dyspnea/Wheezing/Sob 03/25/18 [History Confirmed 02/27/22] budesonide 32 mcg/actuation nasal spray (Rhinocort Allergy) 2 puff DAILY ALLERGIES 06/12/18 [History Confirmed 02/27/22] fluticasone furoate 200 mcg-vilanterol 25 mcg/dose inhalation powder (Breo Ellipta) 2 inh inhalation DAILY sob 12/09/21 [History Confirmed 02/27/22] insulin regular hum U-500 conc 500 unit/mL(3 mL) subcut pen (Humulin R U-500 (Conc) Insulin Kwikpen) 65 unit subcut DINNER diabetes 12/09/21 [History Confirmed 02/27/22] nadolol 40 mg tablet 40 mg PO DAILY heart 12/09/21 [History Confirmed 02/27/22] paroxetine HCl 40 mg tablet (Paxil) 40 mg PO DAILY mood 12/09/21 [History Confirmed 02/27/22] acetaminophen 325 mg tablet (Tylenol) 650 mg PO Q6H PRN PRN Pain 1-10 Or Fever #0 tabs 12/16/21 [Rx Confirmed 02/27/22] amiodarone 200 mg tablet 100 mg PO BID 30 days #30 tabs 12/16/21 [Rx Confirmed 02/27/22] guaifenesin 1,200 mg tablet, extended release 12 hr (Mucus Relief ER) 1,200 mg PO BID #0 tabs 12/16/21 [Rx Confirmed 02/27/22] hydralazine 10 mg tablet 10 mg PO TID 30 days #90 tabs 12/16/21 [Rx Confirmed 02/27/22] nystatin 100,000 unit/gram topical powder (Nyamyc) 1 applic topical BID #0 grams 12/30/21 [Rx Confirmed 02/27/22] dextromethorphan-guaifenesin 10 mg-100 mg/5 mL oral syrup 10 ml PO Q6H PRN PRN Cough #0 mL 12/31/21 [Rx Confirmed 02/27/22] menthol 0.44 %-zinc oxide 20.6 % topical ointment (Calmoseptine) 1 applic topical 4X/DAY #0 grams 01/08/22 [Rx Confirmed 02/27/22] prednisone 20 mg tablet 20 mg PO DAILYCM #0 tabs 01/08/22 [Rx Confirmed 02/27/22] apixaban 5 mg tablet (Eliquis) 5 mg PO BID 02/27/22 [History Confirmed 02/27/22] PFSH Medical History? Acute and chronic respiratory failure with hypoxia Acute bronchitis due to Rhinovirus Acute severe exacerbation of asthma Allergic rhinitis Anemia Anxiety Aspiration pneumonitis Asthma Asthmatic bronchitis Atrial fibrillation Atrial fibrillation with RVR BiPAP (biphasic positive airway pressure) dependence Body mass index (BMI) 50-59.9, adult Breast cancer Chronic diarrhea Chronic respiratory failure with hypoxia Dependence on supplemental oxygen Depression Diabetes Diabetes mellitus, type II Former smoker Former tobacco use GERD (gastroesophageal reflux disease) History of primary non-small cell carcinoma of right lung History of right breast cancer Hypertension Immunosuppressed due to chemotherapy Migraine headache Migraines Obstructive sleep apnea On home oxygen therapy Osteoarthritis Pneumonia Sleep apnea Vitamin D deficiency Surgical History? H/O rectocele repair History of lymph node dissection of right axilla History of mastectomy History of partial hysterectomy Hx of bilateral cataract extraction Hx of carpal tunnel repair Family History? Father Cancer Myocardial infarctionMother Cancer ?? ? Metastatic breast CA Social History? household members:? spouse Smoking Status:? Former smoker how long ago did patient quit smoking:? Smoked x 2 years 1/2 ppd, quit ~ 50 years prior. alcohol intake:? never substance use type:? does not use HPI HPI HPI: Patient presents for wound check after her Pleurx catheter was found to be displaced at her last visit (02/20/2022).? I was also telephoned by patient's [facility] oncologist, Dr. Pires, on 02/24/2022 that he has concerns that Mrs. Jose Manuel Garcia may have a underlying upper GI bleed since she reported melena during a recent visit.? Lastly, I have been asked to see her for evaluation of possible Port-A-Cath placement given a need for durable venous access with ongoing immunotherapy infusions.? Patient presents with her qzfwbmbu-gq-ava for this visit.? She denies any respiratory concerns and confirms that she is remained stable with respect to her respiratory status on 4 L nasal cannula since her last visit.? They state they are late to today's visit, because there was difficulty in inserting a PICC line in the left upper extremity for planned iron infusions. Patient states that her experience of melena was limited to only 1 bowel movement.? She admits this followed her infusion of immunotherapy and that she has not yet begun iron infusions.? Otherwise she denies any recent constipation or straining.? She states the character of her bowel movements are relatively brown and hard.? She denies any bleeding.? She reports that she had an EGD well over 15 years ago and was told that her flap of her stomach does not close all the way and this is the reason that she has reflux.? She states that she has ongoing problems with reflux but tries to limit the foods that trigger this from her diet.? However, she reports she had some spaghetti with marinara sauce last evening which did not trigger any symptoms.? 1 month ago she was taking Prevacid regularly, but was advised to hold this medication due to concern for interaction with another one of her more critical medications. Patient states that she stopped her Eliquis on 02/25/2022 in anticipation of today's visit.? She denies ever having a central line placed and confirms that her chemotherapy for her right breast cancer a decade ago was placed via upper extremity access.? Her vascular access presently consists of a nonfunctional left upper extremity brachial subcutaneous port as well as her new PICC line on that side.? She and her whqoobuz-ky-hxd report that the new PICC line is placed for anticipated iron infusions beginning next week.? They state her next appointment for immunotherapy is scheduled for March 23. Exam Const General: cooperative and no acute distress Orientation: alert, awake and oriented x3 Chest Other: Well-healed right chest Pleurx catheter exit site without signs of infection Resp Effort & Inspection: normal respiratory effort (For patient) and able to speak in complete sentences Other: Patient with persistent deep bronchial cough Extrem Other: Patient with left upper extremity PICC line and chlorhexidine dressing.? There is some slight oozing from around the catheter.? Just inferior to this by approximately 3 cm she has a subcutaneous port for her nonfunctional vascular access.? There is no overlying erythema or significant tenderness in this location. Assessment and Plan Assessment and Plan (1) Complication of chest tube: ?Status:?Acute ?Comment: This is a 76-year-old female who is status post right Pleurx tube insertion for recurrent pleural effusions in December 2021.? I was asked to see her urgently for concerns of possible infection, however, with further eliciting history from patient and her daughter as well as [id number], it became quickly apparent that there is actually concern for catheter dislodgment.? This was confirmed and patient was evaluated with an emergent chest x-ray that showed her to have no concerns for pneumothorax.? She reports no significant change since her visit a week ago and has remained stable on her baseline oxygen requirement of 4 L nasal cannula.? The exit site for the Pleurx drain has a noninfected appearance and is well-healing. ?Plan: ? No further intervention required (2) Lung cancer: ?Status:?Acute ?Comment: Patient with recurrent right lung cancer (right upper lobe stage IIIa?poorly differentiated adeno) status post definitive chemoradiation.? She is currently receiving immunotherapy(nivolumab).? Oncology has requested consideration of Port-A-Cath placement for these infusions.? She reports her next infusion is scheduled for March 23, 2022.? In the interim she has had a left upper extremity PICC line placed for iron infusions.? We will query oncology as to whether they would like to still proceed with Port-A-Cath placement given the presence of this alternative vascular access.? Otherwise, we will plan for right versus left internal jugular Port-A-Cath placement under MAC sedation and removal of patient's existing left upper extremity brachial subcutaneous port. ?Plan: ? Tentatively planning for right versus left Port-A-Cath placement with simultaneous removal of left upper extremity nonfunctional port (3) Dark stools: ?Status:?Acute ?Comment: Patient with a single episode of dark stools.? I have clarified with her that this was not related to any iron infusion (this is due to be administered next week).? She is adamant that this was a singular episode that has not been seen again.? Still, given her persistent anemia and history it is reasonable to pursue EGD to investigate for a possible upper GI source of bleeding as requested by oncology. ?Plan: ? Plan for diagnostic EGD under local MAC at first mutually agreeable date I have re-examined the patient. There are no clinical changes since date of exam. Patient denies any swallowing difficulties or coughing up well following our EGD last week. She reports that she is ready for our procedure today and denies any questions or concerns. We did review postoperative expectations? including showering and wound care. Plan to proceed for right versus left internal jugular port placement as well as left brachial port removal under local MAC.
[2022-03-09 13:41] LABS: Bedside Glucose 158 mg/dL (74-106)
[2022-03-09] MEDS: Clindamycin 900 MG/50 ML BAG 75 MG IV (13:45)
[2022-03-09] MEDS: Lidocaine 1% (30 ml sdv) 30 ML Vial (16:00)
--- NOTE | 2022-03-09 16:00 | RAD_ITS ---
STUDY: X-RAY - LEFT HUMERUS REASON FOR EXAM: Female, 76 years old. PORT REMOVAL TECHNIQUE: 1 view(s) of the humerus. COMPARISON: None. FINDINGS: Single, limited view was performed intraoperatively. This image is nondiagnostic. RAD/Humerus min 2 Views IMPRESSION: Single intraoperative view for hardware and line localization. Electronically Signed: Krystyna Vaca MD at 16:38 EDT Reading Location ID and State: [id number] / Tel , Service support ,
--- NOTE | 2022-03-09 17:05 | RAD_ITS ---
STUDY: X-RAY CHEST REASON FOR EXAM: Female, 76 years old. Status post line placement TECHNIQUE: Single frontal view of the chest. COMPARISON: 02/20/2022. FINDINGS: Right venous port terminates in the superior vena cava. Two left PICC lines terminate in the SVC. Right upper lobe consolidation is increased compared to the prior study. Opacity in the right lung base is unchanged. No pleural effusion or pneumothorax. Normal size heart. Normal mediastinum and tanna. Normal visualized pulmonary arteries. Normal visualized aortic arch and descending thoracic aorta. Normal visualized thoracic spine. Normal visualized ribs, clavicles, and shoulders. There is no demonstrated abnormality of the visualized soft tissue structures of the upper abdomen. RAD/CXR for Line Placement IMPRESSION: Lying position as noted above. Right upper lobe consolidation, increased from prior. Right lower lobe airspace disease without significant change. Electronically Signed: Krystyna Vaca MD at 17:28 EDT Reading Location ID and State: [id number] / Tel , Service support ,
--- NOTE | 2022-03-09 17:48 | DCINST_ITS ---
Discharge Instructions Diet Discharge Diet: No restrictions Activity Discharge Activity: May Shower May shower in (days): 1 Ice area for (Minutes): 20 Additional Activity Instructions:: Limit the activity by the nearest upper extremity for 48 hours postop Dressing / Incision Call your doctor if your incision/area has: Increased Pain/ Swelling, Increased Redness, Foul Smelling Discharge and Swelling at the incision site Call your doctor if you observe: Fever of 101 or Higher Remove Dressing in: do not remove dressing (Dermabond (surgical glue) expected to dissolve spontaneously within 7 to 10 days postop using regular showering) Cleanse incision/area with: Soap & Water Additional Dressing/Incision Instructions:: Please remove arm dressing in 2 days and leave Steri-Strips intact Follow Up Care Test Results: Test results from this visit will be discussed in further detail at your follow- up appointment, if applicable. Discharge Plan Admission Primary Reason for Your Visit: Insertion of right internal jugular port Attending Provider: Manoj Medina Primary Care Provider: Senait Jay Instructions Patient Instructions: Caring for Your Central Vein Access Additional Instructions / Restrictions: Okay to resume Eliquis 48 hours postop Discharge Orders/Prescriptions Prescriptions: No Action cholecalciferol (vitamin D3) 50,000 UNIT capsule 50,000 unit PO SUWE@0800 albuterol sulfate 2.5 MG/3 ML solution for nebulization 2.5 mg INHALATION Q2H PRN PRN (Reason: Dyspnea, wheezing) Qty: 1 0RF albuterol sulfate [ProAir HFA] 1 PUFF inhaler 2 puff inhalation Q6H PRN PRN (Reason: Dyspnea/Wheezing/Sob) paroxetine HCl [Paxil] 40 mg Tablet 40 mg PO DAILY nadolol 40 mg tablet 40 mg PO DAILY Label Comments: take 1 tablet by mouth once daily fluticasone furoate-vilanterol [Breo Ellipta] 200-25 mcg/dose blister with device 2 inh INHALATION DAILY Label Comments: inhale 1 puff by mouth INTO THE LUNGS once daily (USE GOOD ORAL CARE AFTER USE) Humulin R U-500 (Conc) Kwikpen 500 unit/mL (3 mL) insulin pen 65 unit SUBCUT DAILY Label Comments: INJECT 95 UNITS SUBCUTANEOUSLY DAILY BEFORE BREAKFAST AND 85 UNIT... (REFER TO PRESCRIPTION NOTES). acetaminophen [Tylenol] 325 mg Tablet 650 mg PO Q6H PRN PRN (Reason: Pain 1-10 Or Fever) Qty: 0 0RF amiodarone 200 mg Tablet 100 mg PO BID 30 Days Qty: 30 0RF nystatin [Nyamyc] 100,000 unit/gram Powder 1 applic topical BID Qty: 0 0RF Protocol: *Topical Application Instructions APPLICATION INSTRUCTIONS: groin, abdominal folds, under R breast prednisone 20 mg Tablet 20 mg PO DAILYCM Qty: 0 0RF Mucus Relief ER 1,200 mg tablet extended release 12hr 600 mg PO BID potassium chloride 10 mEq tablet extended release 10 meq PO BID pramipexole [Mirapex] 0.5 mg Tablet 0.5 mg PO QPM Rx Instructions: administer 2 - 3 hours before bedtime dicyclomine 10 mg Capsule 10 mg PO TID PRN PRN (Reason: Stomach Upset) rosuvastatin 20 mg tablet 20 mg PO DAILY Referrals / Follow Up: Senait Jay MD [Primary Care Provider] - Disposition Disposition (needs filled in before D/C Order can be placed): Home, Self Care
--- NOTE | 2022-03-09 17:51 | PCM.OPRPT ---
Report of Operation Date of Procedure: 03/09/22 Pre-Operative Diagnosis: 1. Need for durable vascular access 2. Recurrent right-sided non-small cell lung cancer 3. Nonfunctional left upper arm port Post-Operative Diagnosis: 1. Need for durable vascular access 2. Recurrent right-sided non-small cell lung cancer 3. Nonfunctional left upper arm port 4. Retained catheter from above left upper arm port Surgery/Procedure Performed:: 1. Insertion of ultrasound-guided right internal jugular PowerPort (8 [place]gu[place]) 2. Removal of left upper arm port and exploration of left upper arm, but with retention of migrated catheter Description of Surgical Findings:: ? Insertion of 8 [place] MRI compatible PowerPort ? Removal of right upper arm port and connector piece, but catheter remain unaccounted for with local expiration ? Bedside x-ray showing migration of port proximally into the left axilla Surgeon: Manoj Medina vp biology: None Type of Anesthesia: MAC/Supplemental/Local Anesthesiologist: Sidney Graves Specimen's removed: Left upper arm port and connector piece Drains: None Estimated Blood Loss (mL): 10 Description of Procedure: After appropriate identification in the preoperative holding area the patient was brought to the operating room. There she was administered preoperative antibiotics and positioned supine on the operating room table. Using bedside ultrasound I confirm patency of the right internal jugular vein. Once sedation was begun, the upper chest and lower cervical region were prepped and draped in usual sterile fashion. A formal timeout was then conducted to confirm both the patient and procedure. Ultrasound was, again, used to localize the right internal jugular vein. Then a wheal of 0.25% bupivacaine plain was raised superficially in this location and the vein was accessed under direct ultrasound guidance using a Seldinger technique and micro access kit to place a guidewire. The position of the guidewire was confirmed with fluoroscopy. The micro access guidewire was exchanged for standard 035 guidewire using provided sheath. Next the position of the port pocket was determined beneath the right clavicle and again local anesthetic was used to anesthetize the area of both the pocket and the tunneling cephalad. A transverse incision 3 cm in width was made down through the subcutaneous tissue. Selective electrocautery was used to obtain hemostasis. Then with blunt dissection the port pocket was developed. The catheter was connected to the tunneler and was tunneled up to the position of the guidewire. Here the dilator and peel-away sheath were placed over the guidewire and the guidewire was removed. Position was again confirmed with fluoroscopy. The catheter depth was estimated relative to the antwan and right mainstem bronchus. The catheter was then fed into the sheath and slowly the sheath was peeled away as the catheter was inserted fully into the neck. Back in the chest the excess catheter was trimmed and the port was connected to the catheter. The port was tied into the pocket using 2-0 Prolene. Function was then tested using sterile saline on a Boles needle. It was locked with 2.5 mL of heparinized saline (concentration 50U/5mL). The port pocket was closed with a deep dermal stitch using a running 3-0 Vicryl followed by 4-0 Monocryl subcuticular stitch. The 1 cm incision in the neck was closed with a single interrupted subcuticular stitch using 4-0 Monocryl. Dermabond was applied as a dressing. I then turned attention to removal of patient's left upper arm port. Patient's left upper arm was prepped after removing the PICC line dressing around her cephalic PICC line on the same extremity, and then draped directly around her old port site. I performed a local block with additional 0.25% bupivacaine until we reached a total volume of 30 mL. I then switched to use of 1% lidocaine plain for the balance of the block (requiring a total volume here of 7 mL). A longitudinal incision was made directly over the midpoint of the patient's port. Using blunt dissection I came down onto the capsule of the port and sharply incised this capsule. Additional blunt dissection was used to extricate the port from the capsule and I sharply remove the tethering points at the tie-in portions of the port. With all attachments freed I was easily able to remove the port, however, no catheter was connected proximally. Brief exploration of the surgical cavity revealed the plastic connector piece, but still the catheter was not to be found. At this point, anticipating a more involved procedure, I telephoned vascular surgery and gave them notice of the situation. They suggested I proceed with local wound exploration and they made plans to present for further evaluation of the situation. With this guidance my initial incision was extended longitudinally in a proximal direction. I then bluntly spread down through the subcutaneous tissue to try to identify the basilic vein as I made the assumption the patient's existing PICC line resided in the cephalic vein. I was able to find a large clot?likely from the port?but could not palpate a catheter. A Doppler was brought onto the field and I was able to localize the patient's brachial artery and I then focused my dissection inferior to this level. Still, I was unable to visualize or palpate a catheter. This dissection was somewhat complicated by the patient's habitus and thick subcutaneous layer. It was at this juncture that vascular surgery presented to the room and assisted with getting a couple of plain film x-rays of the left upper extremity. On these films we are able to identify significant migration of the catheter into the patient's left axilla?well out of the reach of our current incision. Not prepared for the exploration that would be required based on these findings and convinced this finding had not occurred acutely, vascular surgery recommended closure of the current cavity and plans for tackling catheter removal at a later date once appropriate planning could be made. This recommendation was followed and the wound was copiously irrigated with sterile saline out of concerns for a break in our sterility given the movement required for obtaining the plain films. The cavity was then closed in layers using 3-0 Vicryl to close the subcutaneous layer and a deep dermal layer. 4-0 Monocryl was used in a subcuticular fashion to close the skin. Steri-Strips and Telfa were applied as a dressing. The patient's left PICC line was cleansed using chlorhexidine, left dry, and then redressed with a new chlorhexidine central line dressing. Patient was then aroused from the sedation and taken to PACU for ongoing recovery were a portable chest x-ray was obtained to confirm port positioning and exclude any pneumothorax. Complications Catheter retention as discussed above Admit VTE Documentation VTE Mechan Device Prophylaxis: SCD's
== END 2022-03-09 18:34 | disposition home or self-care (01) ==
LOC: SDC 12:01 → AC 12:03
PROVIDERS: PCP Internal Medicine; Referring Provider Surgery; Visit Provider Surgery
PROC: (CPT 36561; principal; 2022-03-09 13:20)
PROC: (CPT 36590; 2022-03-09 13:20)
DX: Z45.2 Encounter for adjustment and management of vascular access device (principal); C34.11 Malignant neoplasm of upper lobe, right bronchus or lung; T82.524A Displacement of infusion catheter, initial encounter; I48.91 Unspecified atrial fibrillation; E11.9 Type 2 diabetes mellitus without complications; Z79.4 Long term (current) use of insulin; X58.XXXA Exposure to other specified factors, initial encounter; I10 Essential (primary) hypertension; D63.0 Anemia in neoplastic disease; E78.00 Pure hypercholesterolemia, unspecified; K92.1 Melena; G47.33 Obstructive sleep apnea (adult) (pediatric); E55.9 Vitamin D deficiency, unspecified; F32.A Depression, unspecified; Z90.10 Acquired absence of unspecified breast and nipple; Z90.711 Acquired absence of uterus with remaining cervical stump; Z99.81 Dependence on supplemental oxygen; Z79.01 Long term (current) use of anticoagulants; Z79.899 Other long term (current) drug therapy; Z87.891 Personal history of nicotine dependence; Z92.21 Personal history of antineoplastic chemotherapy; Z92.3 Personal history of irradiation
CPT/HCPCS: 36561; 36590; 00532; 71045; 73060; 76000; 77001; 82962; J7120; A4216; C1788

== ENCOUNTER 2022-03-18 11:21 | Emergency (ER) | payer MEDICARE, SELFPAY ==
[2022-03-18] VITALS (12 sets, daily range): BP systolic 124–143; BP diastolic 55–97; PULSE 64–70; RESP 14–28; TEMP 36–37.2; O2SAT 90–100; BMI 49.6
--- NOTE | 2022-03-18 11:59 | CT_ITS ---
EXAM: CT ANGIOGRAPHY CHEST WITHOUT AND WITH INTRAVENOUS CONTRAST CLINICAL INDICATION: dyspnea TECHNIQUE: Helically acquired angiography images were obtained of the chest without and with intravenous contrast. This CT exam was performed using one or more of the following dose reduction techniques: automated exposure control, adjustment of the mA and/or kV according to patient size, and/or use of iterative reconstruction technique. This report was created using Legend[employer] report generation technology. MIP reconstructed images were created and reviewed. CONTRAST: IV 100mL Isovue-370 RADIATION DOSE: CTDIvol = 15.04 mGy, DLP = 569.54 mGy-cm COMPARISON: 8.3.22 FINDINGS: PULMONARY ARTERIES: No demonstrated pulmonary embolism or arterial dissection. AORTA: There is atherosclerotic calcification of the aortic arch with tortuosity and elongation of the aortic arch and descending thoracic aorta. Normal in caliber. No evidence of dissection. GREAT VESSELS OF AORTIC ARCH: Unremarkable. Normal in caliber. No evidence of dissection. LUNGS AND PLEURAL SPACES: There is small right pleural effusion. Diffuse left upper lobe masslike lesion extending into the lingula. This is new and concerning for possible metastatic disease. 7 mm nodule in the superior segment of the left lower lobe. This is new and metastatic disease should be considered. Diffuse masslike area of the right upper lobe concerning for neoplasm. Multiple patchy nodules throughout the right lung concerning for metastatic nodules. No pneumothorax. HEART: There are calcifications of the coronary arteries. No pericardial effusion. No signs of right heart strain, ratio of right ventricle to left ventricle measures less than 1. MEDIASTINUM: Unremarkable. No mediastinal or hilar adenopathy. Esophagus is unremarkable. No hiatal hernia. THYROID: Unremarkable. No thyroid lesions. BONES/JOINTS: There are degenerative changes of the shoulders. There are multi-level degenerative changes of the thoracic spine. No suspicious lytic or blastic abnormality. CT/CTA Chest W/WO Contrast IMPRESSION: 1. No demonstrated pulmonary embolism or arterial dissection. 2. There is small right pleural effusion. 3. Diffuse left upper lobe masslike lesion extending into the lingula. This is new and concerning for possible metastatic disease. 7 mm nodule in the superior segment of the left lower lobe. This is new and metastatic disease should be considered. Diffuse masslike area of the right upper lobe concerning for neoplasm. Multiple patchy nodules throughout the right lung concerning for metastatic nodules. Electronically Signed: Sharan Haddad MD at 14:36 EDT ,
--- NOTE | 2022-03-18 12:01 | EDS_ITS ---
HPI History of Present Illness Chief Complaint: Shortness of Breath Narrative Narrative: 76-year-old female with history of lung cancer presenting with shortness of breath for the last few days. Patient recently hospitalized and discharged to home. Has been home 7 days. She has not had a fever but states her temperature has been 99 7 at the T-max. She is coughing and short of breath. She was post to have an outpatient CT done today in follow-up from her PET scan about a week and a half ago but was too fatigued and weak to go. She could not make her office appointment as well. Patient states she was previously on Eliquis but does not know why. She also states she does not know why she was taken off of it. She reports possibly it could be due to having her port placed by Dr. Medina. She has been having some intermittent chest pains as well however she also states this is not new. [facility] Medical History Acute and chronic respiratory failure with hypoxia Acute bronchitis due to Rhinovirus Acute severe exacerbation of asthma Allergic rhinitis Anemia Anxiety Aspiration pneumonitis Asthma Asthmatic bronchitis Atrial fibrillation Atrial fibrillation with RVR BiPAP (biphasic positive airway pressure) dependence Body mass index (BMI) 50-59.9, adult Breast cancer Cancer Chronic diarrhea Chronic respiratory failure with hypoxia Dependence on supplemental oxygen Depression Diabetes Diabetes mellitus, type II Former smoker Former tobacco use GERD (gastroesophageal reflux disease) Heartburn High cholesterol History of primary non-small cell carcinoma of right lung History of right breast cancer History of steroid therapy Hypertension Immunosuppressed due to chemotherapy Leg cramps Loss of hearing Migraine headache Migraines Obstructive sleep apnea On home oxygen therapy Osteoarthritis Pneumonia Restless legs Sleep apnea Uses wheelchair Vitamin D deficiency Walker as ambulation aid Wears glasses Home Medications cholecalciferol (vitamin D3) 1,250 mcg (50,000 unit) capsule 50,000 unit PO SUWE@0800 SUPPLEMENT 06/01/17 [History Last Taken 03/18/22] albuterol sulfate 90 mcg/actuation aerosol inhaler (ProAir HFA) 2 puff inhalation Q6H PRN PRN Dyspnea/Wheezing/Sob 03/25/18 [History Last Taken 3 Days Ago ~03/15/22] fluticasone furoate 200 mcg-vilanterol 25 mcg/dose inhalation powder (Breo Ellipta) 2 inh inhalation DAILY sob 12/09/21 [History Last Taken 3 Days Ago ~03/15/22] insulin regular hum U-500 conc 500 unit/mL(3 mL) subcut pen (Humulin R U-500 (Conc) Insulin Kwikpen) 65 unit subcut DAILY diabetes 12/09/21 [History Last Taken 03/18/22] nadolol 40 mg tablet 40 mg PO DAILY heart 12/09/21 [History Last Taken 03/18/22] paroxetine HCl 40 mg tablet (Paxil) 40 mg PO DAILY mood 12/09/21 [History Last Taken 03/18/22] amiodarone 200 mg tablet 100 mg PO BID 30 days #30 tabs 12/16/21 [Rx Last Taken 03/18/22] nystatin 100,000 unit/gram topical powder (Nyamyc) 1 applic topical BID #0 grams 12/30/21 [Rx Last Taken Unknown] guaifenesin 1,200 mg tablet, extended release 12 hr (Mucus Relief ER) 600 mg PO BID 03/03/22 [History Last Taken 03/18/22] potassium chloride 10 mEq tablet,extended release 10 meq PO DAILY 03/03/22 [History Last Taken 03/18/22] pramipexole 0.5 mg tablet (Mirapex) 0.5 mg PO QPM 03/03/22 [History Last Taken 03/17/22] rosuvastatin 20 mg tablet 20 mg PO DAILY 03/03/22 [History Last Taken 03/17/22] prednisone 10 mg tablet 10 mg PO DAILY 03/18/22 [History Last Taken 03/18/22] Allergy/AdvReac Type Severity Reaction Status Date / Time adhesive tape Allergy tears skin Verified 03/18/22 11:22 cefadroxil [From Duricef] Allergy Unknown Verified 03/18/22 11:22 gluten Allergy celiac Verified 03/18/22 11:22 disease mesalamine [From Asacol] Allergy Unknown Verified 03/18/22 11:22 omalizumab [From Xolair] Allergy Unknown Verified 03/18/22 11:22 Sulfa (Sulfonamide Allergy swelling Verified 03/18/22 11:22 Antibiotics) as an oxycodone AdvReac Vomiting Verified 03/18/22 11:22 Family History Father Cancer Myocardial infarction Mother Cancer Metastatic breast CA Surgical History H/O rectocele repair History of lymph node dissection of right axilla History of mastectomy History of partial hysterectomy Hx of bilateral cataract extraction Hx of carpal tunnel repair Social History household members: spouse Smoking Status: Former smoker how long ago did patient quit smoking: Smoked x 2 years 1/2 ppd, quit ~ 50 years prior. alcohol intake: never substance use type: does not use ROS ROS ED Constitutional Constitutional ED: Denies chills or sweats Eyes Eyes: Denies change in vision ENT ENT ED: Denies rhinorrhea or sore throat Cardiovascular Cardiovascular: Reports chest pain Respiratory/Chest Respiratory/Chest: Reports cough, dyspnea and dyspnea on exertion Gastrointestinal Gastrointestinal: Denies abdominal pain Genitourinary Genitourinary ED: Denies dysuria Musculoskeletal Musculoskeletal: Denies arthralgias, back pain or myalgias Integumentary Denies abscess Neurologic Neurologic: Denies headache(s) or paresthesias Psychiatric Psychiatric: Denies anxiety or depression EXAM Physical Exam Const Vital Signs: 03/18/22 11:22 03/18/22 11:38 03/18/22 11:39 Temperature 99 F 99 F Temperature Source Temporal Temporal Pulse Rate 69 69 67 Respiratory Rate 28 H 28 H 27 H Respiratory Effort Respiratory Pattern Blood Pressure 126/71 H 126/71 H 129/55 H Blood Pressure Mean 89 89 79 Pulse Ox 90 90 99 Oxygen Delivery Method Nasal Cannula Nasal Cannula Nasal Cannula Oxygen Flow Rate (L/min) 4 4 4 Fraction of Inspired Oxygen (FIO2) 03/18/22 11:39 03/18/22 11:41 03/18/22 12:00 Temperature 99 F Temperature Source Temporal Pulse Rate 67 69 Respiratory Rate 25 H 23 H Respiratory Effort Short of Breath Respiratory Pattern Tachypnea Blood Pressure 129/55 H 138/61 H Blood Pressure Mean 79 86 Pulse Ox 99 99 Oxygen Delivery Method Nasal Cannula Nasal Cannula Nasal Cannula Oxygen Flow Rate (L/min) 4 4 4 Fraction of Inspired Oxygen (FIO2) 03/18/22 12:00 03/18/22 13:00 03/18/22 13:00 Temperature 98.1 F 98 F Temperature Source Temporal Temporal Pulse Rate 69 68 68 Respiratory Rate 23 H 24 H 24 H Respiratory Effort Respiratory Pattern Blood Pressure 138/61 H 143/59 H 143/59 H Blood Pressure Mean 86 87 87 Pulse Ox 99 100 100 Oxygen Delivery Method Nasal Cannula Nasal Cannula Nasal Cannula Oxygen Flow Rate (L/min) 4 4 4 Fraction of Inspired Oxygen (FIO2) 03/18/22 13:35 03/18/22 14:00 03/18/22 14:00 Temperature 97.9 F Temperature Source Temporal Pulse Rate 70 70 70 Respiratory Rate 25 H 26 H 23 H Respiratory Effort Respiratory Pattern Normal Blood Pressure 134/63 H 134/63 H Blood Pressure Mean 86 86 Pulse Ox 99 97 99 Oxygen Delivery Method Bi-pap Bi-pap Oxygen Flow Rate (L/min) Fraction of Inspired Oxygen (FIO2) 30 03/18/22 15:18 03/18/22 15:18 03/18/22 16:15 Temperature 96.8 F L 96.8 F L Temperature Source Temporal Temporal Pulse Rate 68 68 66 Respiratory Rate 16 16 25 H Respiratory Effort Respiratory Pattern Normal Blood Pressure 124/63 H 124/63 H Blood Pressure Mean 83 83 Pulse Ox 97 97 97 Oxygen Delivery Method Bi-pap Bi-pap Oxygen Flow Rate (L/min) Fraction of Inspired Oxygen (FIO2) 30 03/18/22 16:20 03/18/22 16:20 Temperature 96.8 F L 96.8 F L Temperature Source Temporal Temporal Pulse Rate 66 66 Respiratory Rate 19 H 19 H Respiratory Effort Respiratory Pattern Blood Pressure 131/68 H 131/68 H Blood Pressure Mean 89 89 Pulse Ox 98 97 Oxygen Delivery Method Bi-pap Bi-pap Oxygen Flow Rate (L/min) Fraction of Inspired Oxygen (FIO2) Positive obese General Appearance ED: NAD; Negative for pallor Nutritional Appearance: obese HEENT Reports moist mucous membranes Eyes PERRL and EOMs intact bilaterally General Eye ED: Negative for pale conjunctiva or scleral icterus Resp Resp Narrative: Slightly tachypneic Auscultation: Negative for wheezes Cardio regular rate and regular rhythm GI non-tender Neuro oriented x3 and CN's II-XII intact bilaterally Sensorium / Orientation: alert Psych mental status grossly normal Skin General Skin Exam: Negative for jaundice or pallor MDM MDM MDM Narrative Medical decision making narrative: Patient presenting with cough and shortness of breath and generalized weakness. Has a history of lung cancer which is not amenable to chemotherapy. She had a PET scan done and today and I reviewed this which showed worsening findings. She was post to have a CT scan done today. I obtained blood work and her CBC shows a slight leukocytosis of 14.9. Hemoglobin stable at 9.2, platelets normal at 274. Creatinine normal at 0.79. Electrolytes within normal limits. CO2 minimally elevated at 33. LFTs are normal with exception of an alkaline phosphatase of 156. A CTA was obtained because the patient does is not on blood thinners and this shows evidence of worsening metastatic lesions in the right and left upper lobes. Radiologist does not see any infiltrates. Patient has been stable here and request BiPAP which she is on at home to help her breathe. I spoke with Dr. Crouch who does state that the patient has been told by him that she needs hospice. All findings were discussed with she and her family and they are amenable for outpatient care with Dr. Crouch. They state any new medications for pain or nausea for home. Patient will be discharged for outpatient follow- up. Impression: 1. Metastatic lung cancer 2. Leukocytosis Lab Data Attestation: I reviewed the patient's lab results. Labs: Laboratory Results - last 24 hr 03/18/22 03/18/22 13:15 13:15 WBC 14.9 H RBC 3.65 L Hgb 9.2 L Hct 31.1 L MCV 85.2 MCH 25.2 L MCHC 29.6 L RDW Std Deviation 56.3 H RDW Coeff of Aniceto 18.0 H Plt Count 274 MPV 9.1 Immature Gran % (Auto) 0.800 Neut % (Auto) 90.4 H Lymph % (Auto) 4.0 L [place] % (Auto) 3.8 Eos % (Auto) 0.7 Baso % (Auto) 0.3 Absolute Neuts (auto) 13.4 H Absolute Lymphs (auto) 0.59 L Nucleated RBC % 0 Differential Comment SCANNED Sodium 138 Potassium 4.2 Chloride 101 Carbon Dioxide 33.0 H Anion Gap 4 L BUN 24 H Creatinine 0.79 Estim Creat Clear Calc 40.21 Est GFR (MDRD) Af Amer 91 Est GFR (MDRD) Non-Af 75 BUN/Creatinine Ratio 30.4 H Glucose 120 H Calcium 9.9 Total Bilirubin 0.40 AST 13 L ALT 27 Alkaline Phosphatase 156 H Troponin I High Sens 8 Total Protein 7.3 Albumin 2.3 L Globulin 5.0 H Albumin/Globulin Ratio 0.5 L Radiography Diagnostic Testing: Clinical Impression(s) from Imaging Studies Chest CTA 03/18/22 11:59 IMPRESSION: 1. No demonstrated pulmonary embolism or arterial dissection. 2. There is small right pleural effusion. 3. Diffuse left upper lobe masslike lesion extending into the lingula. This is new and concerning for possible metastatic disease. 7 mm nodule in the superior segment of the left lower lobe. This is new and metastatic disease should be considered. Diffuse masslike area of the right upper lobe concerning for neoplasm. Multiple patchy nodules throughout the right lung concerning for metastatic nodules. Electronically Signed: Sharan Haddad MD at 14:36 EDT , Discharge Plan Triage Chief Complaint: Shortness of Breath ED Provider: Enio Leiva Dx/Rx/DC Orders Instructions: Lung Cancer Plan for Future Prescriptions: No Action cholecalciferol (vitamin D3) 50,000 UNIT capsule 50,000 unit PO SUWE@0800 albuterol sulfate [ProAir HFA] 1 PUFF inhaler 2 puff inhalation Q6H PRN PRN (Reason: Dyspnea/Wheezing/Sob) paroxetine HCl [Paxil] 40 mg Tablet 40 mg PO DAILY nadolol 40 mg tablet 40 mg PO DAILY Label Comments: take 1 tablet by mouth once daily fluticasone furoate-vilanterol [Breo Ellipta] 200-25 mcg/dose blister with device 2 inh INHALATION DAILY Label Comments: inhale 1 puff by mouth INTO THE LUNGS once daily (USE GOOD ORAL CARE AFTER USE) Humulin R U-500 (Conc) Kwikpen 500 unit/mL (3 mL) insulin pen 65 unit SUBCUT DAILY Label Comments: INJECT 95 UNITS SUBCUTANEOUSLY DAILY BEFORE BREAKFAST AND 85 UNIT... (REFER TO PRESCRIPTION NOTES). amiodarone 200 mg Tablet 100 mg PO BID 30 Days Qty: 30 0RF nystatin [Nyamyc] 100,000 unit/gram Powder 1 applic topical BID Qty: 0 0RF Protocol: *Topical Application Instructions APPLICATION INSTRUCTIONS: groin, abdominal folds, under R breast Mucus Relief ER 1,200 mg tablet extended release 12hr 600 mg PO BID potassium chloride 10 mEq tablet extended release 10 meq PO DAILY pramipexole [Mirapex] 0.5 mg Tablet 0.5 mg PO QPM Rx Instructions: administer 2 - 3 hours before bedtime rosuvastatin 20 mg tablet 20 mg PO DAILY prednisone 10 mg tablet 10 mg PO DAILY Label Comments: take 2 tablets by mouth once daily Primary Care Provider: Senait Jay Referrals: Alessandra Crouch MD [Med Staff - Active Staff] - As soon as possible Senait Jay MD [Primary Care Provider] - Disposition Disposition: Home, Self Care
--- NOTE | 2022-03-18 12:07 | EKG12_ITS ---
Test Reason : SOB Blood Pressure : / mmHG Vent. Rate : 070 BPM Atrial Rate : 070 BPM P-R Int : 166 ms QRS Dur : 086 ms QT Int : 408 ms P-R-T Axes : 027 015 075 degrees QTc Int : 440 ms Normal sinus rhythm with sinus arrhythmia Normal ECG Confirmed by JEFERSON RIVERA, GENIA ([id number]), film editor supervisor CAROL VARGAS ([id number]) on 03/19/2022 1:49:16 P M Referred By: SHAHAB Confirmed By:BEAR GOVEA MD
--- NOTE | 2022-03-18 12:49 | ED.RN ---
This nurse had difficulty locating landmarks for newly placed power port. Port location was identified and a second nurse opinion was obtained. After accessing port, no blood return, patient denies pain, patient denies taste in mouth. Maneuvers performed and still no blood return. Due to patient not having availability of peripheral access, R breast mastectomy with lymph node removal and L arm recent PICC removal with PICC tubing remnants due to be surgically removed, outpatient infusion clinic contacted and will send nurse to possibly access this port.
[2022-03-18 13:30] LABS: Absolute Lymphocyte Count 0.59 X10^3/uL (0.83-4.51); Absolute Neutrophil Count 13.4 X10^3/uL (2.0-7.7); Basophil# 0.04 X10^3/uL; Basophil% 0.3 % (0-1); Eosinophil# 0.11 X10^3/uL; Eosinophils% 0.7 % (0-5); Hematocrit 31.1 % (37-47); Hemoglobin 9.2 g/dL (12.0-15.0); Lymphocyte # 0.59 X10^3/ul (0.83-4.51); Mean Corp Hgb Conc 29.6 g/dL (32-36); Mean Corpuscular Hgb 25.2 pg (27.0-32.0); Mean Corpuscular Volume 85.2 fL (81-99); Mean Platelet Vol. 9.1 fl (6.2-12.0); Monocyte# 0.56 X10^3/uL; Monocyte% 3.8 % (0-10); NRBC Flagged by Analyzer 0 % (0-5); Neutrophil # 13.43 X10^3/uL (2.7-7.7); Neutrophil % 90.4 % (47-70); POSITIVE DIFFERENTIAL YES; Platelet Count 274 K/mm3 (150-450); RBC Distribution Width SD 56.3 fl (35.1-43.9); Red Blood Count 3.65 M/mm3 (4.2-5.4); White Blood Count 14.9 K/mm3 (4.4-11.0)
[2022-03-18 13:36] LABS: Differential Indicated SCAN CRITERIA MET
[2022-03-18 13:47] LABS: ALB/GLOB Ratio 0.5 RATIO (0.9-2.4); AST(SGOT) 13 U/L (15-37); Alanine Aminotransfer ALT/SGPT 27 U/L (13-56); Albumin, Serum 2.3 g/dL (3.2-5.0); Alkaline Phosphatase 156 U/L (45-117); Anion Gap 4 (5-15); BUN 24 mg/dL (7-18); BUN/Creat Ratio 30.4 RATIO (10-20); Calcium,Total 9.9 mg/dL (8.5-10.1); Chloride 101 mmol/L (98-107); Creatinine, Serum 0.79 mg/dL (0.55-1.02); EST Glomerular Filtration Rate 75 mL/min (>60); Est Glom Filt Rate - Afr Amer 91 mL/min (>60); Estimated Creatinine Clearance 40.21 ml/min; Glucose 120 mg/dL (74-106); Potassium 4.2 mmol/L (3.5-5.1); Protein, Total 7.3 g/dL (6.4-8.2); Sodium Level 138 mmol/L (136-145); Troponin-I HS 8 pg/mL (3.0-54.0)
[2022-03-18 14:05] LABS: Differential Comment SCANNED
== END 2022-03-18 17:06 | disposition home or self-care (01) ==
PROVIDERS: Emergency Provider Student in an Organized Health Care Education/Training Program; PCP Internal Medicine; Visit Provider Student in an Organized Health Care Education/Training Program
DX: C34.11 Malignant neoplasm of upper lobe, right bronchus or lung (principal); C34.12 Malignant neoplasm of upper lobe, left bronchus or lung; E11.9 Type 2 diabetes mellitus without complications; Z79.4 Long term (current) use of insulin; I10 Essential (primary) hypertension; E78.00 Pure hypercholesterolemia, unspecified; D72.829 Elevated white blood cell count, unspecified; Z90.11 Acquired absence of right breast and nipple; Z99.81 Dependence on supplemental oxygen; Z79.899 Other long term (current) drug therapy; Z87.891 Personal history of nicotine dependence; Z85.3 Personal history of malignant neoplasm of breast
CPT/HCPCS: 36591; 71275; 80053; 84484; 85025; 87811; 93005; 94002; 99285; Q9967; A4216

== ENCOUNTER 2022-03-23 13:36 | Observation (INO) | payer MEDICARE, SELFPAY ==
[2022-03-23] VITALS (20 sets, daily range): BP systolic 100–138; BP diastolic 46–69; PULSE 62–67; RESP 14–19; TEMP 36–36.8; O2SAT 97–100; BMI 50.3; BMI 47.6
[2022-03-23] MEDS: Lactated Ringers 1,000 ML 15 ML IV (07:20)
[2022-03-23 08:22] LABS: Absolute Lymphocyte Count 0.89 X10^3/uL (0.83-4.51); Absolute Neutrophil Count 11.7 X10^3/uL (2.0-7.7); Basophil# 0.04 X10^3/uL; Basophil% 0.3 % (0-1); Eosinophil# 0.06 X10^3/uL; Eosinophils% 0.4 % (0-5); Hematocrit 31.3 % (37-47); Hemoglobin 9.1 g/dL (12.0-15.0); Lymphocyte # 0.89 X10^3/ul (0.83-4.51); Lymphocyte % 6.6 % (19-41); Mean Corp Hgb Conc 29.1 g/dL (32-36); Mean Corpuscular Hgb 25.1 pg (27.0-32.0); Mean Corpuscular Volume 86.2 fL (81-99); Mean Platelet Vol. 9.3 fl (6.2-12.0); Monocyte# 0.68 X10^3/uL; NRBC Flagged by Analyzer 0 % (0-5); Neutrophil # 11.72 X10^3/uL (2.7-7.7); Neutrophil % 86.8 % (47-70); Platelet Count 337 K/mm3 (150-450); RBC Distribution Width CV 18.1 % (11.6-14.6); RBC Distribution Width SD 57.4 fl (35.1-43.9); Red Blood Count 3.63 M/mm3 (4.2-5.4); White Blood Count 13.5 K/mm3 (4.4-11.0)
[2022-03-23 09:45] LABS: Bedside Glucose 130 mg/dL (74-106)
--- NOTE | 2022-03-23 09:53 | PCM.HP.STD ---
HPI - General HPI Narrative ALESSANDRO GUARDADO, is a 76 F who presents with retained portion of left upper arm medport. She initially experienced trouble while using for attempted CT injection resulting in severe pain. It was presumed to be occluded so removal attempt was made last week. When they cut down on the access port section the conduit portion was noted to be detached and not visible in field. Evaluation with fluoroscopy showed that conduit was sveral CM cephalad to access port. Given limitations at the time no further efforts were undertaken to remove and she returns now to have the remainder removed. [facility] Medical History Acute and chronic respiratory failure with hypoxia Acute bronchitis due to Rhinovirus Acute severe exacerbation of asthma Allergic rhinitis Anemia Anxiety Aspiration pneumonitis Asthma Asthmatic bronchitis Atrial fibrillation Atrial fibrillation with RVR BiPAP (biphasic positive airway pressure) dependence Body mass index (BMI) 50-59.9, adult Breast cancer Cancer Chronic diarrhea Chronic respiratory failure with hypoxia Dependence on supplemental oxygen Depression Diabetes Diabetes mellitus, type II Former smoker Former tobacco use GERD (gastroesophageal reflux disease) Heartburn High cholesterol History of primary non-small cell carcinoma of right lung History of right breast cancer History of steroid therapy Hypertension Immunosuppressed due to chemotherapy Leg cramps Loss of hearing Migraine headache Migraines Obstructive sleep apnea On home oxygen therapy Osteoarthritis Pneumonia Restless legs Sleep apnea Uses wheelchair Vitamin D deficiency Walker as ambulation aid Wears glasses Home Medications cholecalciferol (vitamin D3) 1,250 mcg (50,000 unit) capsule 50,000 unit PO SUWE@0800 SUPPLEMENT 06/01/17 [History Last Taken 03/18/22] albuterol sulfate 90 mcg/actuation aerosol inhaler (ProAir HFA) 2 puff inhalation Q6H PRN PRN Dyspnea/Wheezing/Sob 03/25/18 [History Last Taken 3 Days Ago ~03/15/22] fluticasone furoate 200 mcg-vilanterol 25 mcg/dose inhalation powder (Breo Ellipta) 2 inh inhalation DAILY sob 12/09/21 [History Last Taken 3 Days Ago ~03/15/22] insulin regular hum U-500 conc 500 unit/mL(3 mL) subcut pen (Humulin R U-500 (Conc) Insulin Kwikpen) 65 unit subcut DAILY diabetes 12/09/21 [History Last Taken 03/18/22] nadolol 40 mg tablet 40 mg PO DAILY heart 12/09/21 [History Last Taken 03/18/22] paroxetine HCl 40 mg tablet (Paxil) 40 mg PO DAILY mood 12/09/21 [History Last Taken 03/18/22] amiodarone 200 mg tablet 100 mg PO BID 30 days #30 tabs 12/16/21 [Rx Last Taken 03/18/22] nystatin 100,000 unit/gram topical powder (Nyamyc) 1 applic topical BID #0 grams 12/30/21 [Rx Last Taken Unknown] guaifenesin 1,200 mg tablet, extended release 12 hr (Mucus Relief ER) 600 mg PO BID 03/03/22 [History Last Taken 03/18/22] potassium chloride 10 mEq tablet,extended release 10 meq PO DAILY 03/03/22 [History Last Taken 03/18/22] pramipexole 0.5 mg tablet (Mirapex) 0.5 mg PO QPM 03/03/22 [History Last Taken 03/17/22] rosuvastatin 20 mg tablet 20 mg PO DAILY 03/03/22 [History Last Taken 03/17/22] prednisone 10 mg tablet 10 mg PO DAILY 03/18/22 [History Last Taken 03/18/22] Allergy/AdvReac Type Severity Reaction Status Date / Time adhesive tape Allergy tears skin Verified 03/23/22 07:49 cefadroxil [From Duricef] Allergy Unknown Verified 03/23/22 07:49 gluten Allergy celiac Verified 03/23/22 07:49 disease mesalamine [From Asacol] Allergy Unknown Verified 03/23/22 07:49 omalizumab [From Xolair] Allergy Unknown Verified 03/23/22 07:49 Sulfa (Sulfonamide Allergy swelling Verified 03/23/22 07:49 Antibiotics) as an infant oxycodone AdvReac Vomiting Verified 03/23/22 07:49 Family History Father Cancer Myocardial infarction Mother Cancer Metastatic breast CA Surgical History H/O rectocele repair History of lymph node dissection of right axilla History of mastectomy History of partial hysterectomy Hx of bilateral cataract extraction Hx of carpal tunnel repair Social History household members: spouse Smoking Status: Former smoker how long ago did patient quit smoking: Smoked x 2 years 1/2 ppd, quit ~ 50 years prior. alcohol intake: never substance use type: does not use ROS Constitutional Constitutional: Denies chills, fever(s), frequent falls, lethargy or weakness Cardiovascular Cardiovascular: Denies abdominal pain, bluish discoloration of hand/feet, chest pain with activity, claudication, cold extremities, cyanosis, dyspnea on exertion, erythema on extremities, irregular heart rhythm, leg edema, leg ulcers, numbness in extremities or weakness in extremities Respiratory/Chest Respiratory/Chest: Reports cough and shortness of breath with exertion; Denies excessive phlegm production, shortness of breath at rest or wheezing Gastrointestinal Gastrointestinal: Denies anorexia, change in stool character, constipation, diarrhea, melena or rectal bleeding Genitourinary Genitourinary: Denies dysuria or hematuria Integumentary Integumentary: Denies erythema, non-healing lesions or wounds Neurologic Neurologic: Denies abnormal speech, focal weakness, headache(s), loss of vision, numbness, paresthesias or sensory deficit Hematologic/Lymphatic Hematologic/Lymphatic: Denies easy bleeding, easy bruising or lymphadenopathy Vital Signs Vital Signs Vital Signs: 03/23/22 07:49 03/23/22 07:49 Temperature 98.3 F Temperature Source Temporal Pulse Rate 67 Respiratory Rate 19 H Respiratory Pattern Normal Blood Pressure 131/56 H Blood Pressure Mean 81 Blood Pressure Source Monitor Blood Pressure Position Semi-Fowlers Blood Pressure Location Left Arm Pulse Ox 97 Oxygen Delivery Method Nasal Cannula Oxygen Flow Rate (L/min) 4 Weight Weight: 284 lb Body Mass Index (BMI) 50.3 Physical Exam Const alert, oriented x3, no apparent distress and healthy appearing General Appearance: cooperative; Negative for combative or lethargic Orientation / Consciousness: awake Exam Limitations: no limitations HEENT Head and Scalp: normocephalic and atraumatic Eyes EOMs intact bilaterally General Eye: normal appearance of both eyes Neck full ROM, no lymphadenopathy, thyroid normal and No no carotid bruits General: trachea midline; Negative for lymphadenopathy or tenderness Thyroid: thyroid normal Lymph Lymphatic: Negative for no lymphadenopathy noted Resp normal respiratory effort and no use of accessory muscles Effort and Inspection: Negative for labored, stridor or audible wheezes Cardio regular rate and regular rhythm Peripheral Pulses: brachial pulses present and radial pulses present Back/Spine Cervical Spine: cervical ROM normal Skin no rashes or lesions noted and no wounds Neuro oriented x3, CN's II-XII intact bilaterally, no focal motor deficits and no sensory deficits noted Psych thought process normal, cooperative, affect normal, speech normal and activity/motor behavior normal Results Lab / Micro Data Result Diagrams: 03/23/22 08:12 Labs: Laboratory Results - last 24 hr 03/23/22 07:48: POC Glucose 130 H 03/23/22 08:12: Blood Type A NEGATIVE, Antibody Screen NEGATIVE 03/23/22 08:12: WBC 13.5 H, RBC 3.63 L, Hgb 9.1 L, Hct 31.3 L, MCV 86.2, MCH 25.1 L, MCHC 29.1 L, RDW Std Deviation 57.4 H, RDW Coeff of Aniceto 18.1 H, Plt Count 337, MPV 9.3, Immature Gran % (Auto) 0.900, Neut % (Auto) 86.8 H, Lymph % (Auto) 6.6 L, [place] % (Auto) 5.0, Eos % (Auto) 0.4, Baso % (Auto) 0.3, Absolute Neuts (auto) 11.7 H, Absolute Lymphs (auto) 0.89, Nucleated RBC % 0 Assessment & Plan Assessment/Plan (1) Foreign body: PLAN: -retained portion of port -plan incision more cephalad, will use ultrasound/fluoro to help guide
[2022-03-23] MEDS: Clindamycin 900 MG/50 ML BAG 75 MG IV (10:00)
[2022-03-23] MEDS: Lidocaine 1% (30 ml sdv) 30 ML Vial (10:35)
--- NOTE | 2022-03-23 11:23 | RAD_ITS ---
STUDY: X-RAY CHEST REASON FOR EXAM: Female, 76 years old. Port removal TECHNIQUE: Intraoperative fluoroscopy. COMPARISON: Comparison is made with prior chest radiograph dated March 23 at 3:01 PM. FINDINGS: The distal portion of a left-sided catheter is seen. The proximal portion is not visualized. This overlies the left upper thorax. RAD/Chest 1 View IMPRESSION: Fluoroscopic guidance for retrieval of a fractured catheter. Electronically Signed: Salazar Garcia MD at 9:01 EDT ,
--- NOTE | 2022-03-23 13:31 | PCM.CONS.GEN ---
Assessment & Plan Assessment/Plan (1) Foreign body: PLAN: Plan 76-year-old female was admitted after elective angiogram for retained Mediport catheter in central venous system. Patient had Ultrasound-guided venous access the right femoral vein with snaring and retrieval of foreign body within the left subclavian vein. 1. Retained Mediport catheter in left subclavian vein: Snared and retrieved as per operative report. Patient had right femoral venous access site. No hematoma or active bleeding found. Surgical dressing dry. 2.? Chronic combined hypoxic and hypercapnic respiratory failure on 4 L of oxygen: Patient has history of multiple admission and fci visit since June 2021. Patient had recent right pleural catheter for right pleural effusion which was removed last month. Patient also treated for IV Zosyn for Pseudomonas anemia discontinued on 01/05/2022.Last CTA chest scan from 03/18/2022 reviewed which shows diffuse right upper lobe consolidation small right pleural effusion. Multiple patchy nodules throughout the right lung concerning for metastatic nodules. It also reported new concerning possible metastatic disease, 7 mm nodule in the superior segment of left lower lobe. Patient has chronic leukocytosis 13.5 thousand. Neutrophil 86%, lymphocytes 6.6%. Chest x-ray ordered for today. Will recommend ID consult. 3. Mild acute encephalopathy, postprocedure after anesthesia effect: Follow-up clinically. The patient does not wake up we will continue to lethargic, further work-up will be needed. 4. Paroxysmal atrial fibrillation: On monitor patient is sinus rhythm.- Continue amiodarone, nadolol. Patient not on Eliquis on home medication. 5. Stage III lung cancer- Follows with Dr. Crouch. Previously completed chemo and radiation.? On immunotherapy. 6. Type 2 diabetes ncyfrqet-[id number]-[id number] with sliding scale insulin. We will Kos 120 mg on 03/18/2022 in BMP. 7. Hypertension-BP is controlled. Continue current regimen. 8. Anxiety/depression/AD HD on Paxil, methylphenidate. 9. DORY-patient history of obstructive sleep apnea, noncompliance to CPAP. 10. Morbid obesity-encouraged diet and lifestyle modifications. 11.? Debility-PT and OT. DVT prophylaxis-SCDs. Eliquis to start from tomorrow a.m. Total time of the visit including total time spent in counseling or coordination of care, (more than 50% of the total time, spent in obtaining medical information from nurses and other ancillary care providers,explaining to the patient about labs, imaging, diagnosis and management of active complex medical conditions), discussion with attending and ID consultation, review of labs and imaging is 50 minutes. Living will/advanced directive/end of life care: Patient does have living will or advanced directive. Her daughter is power of real estate associate attorney for health after discussion of benefits/risks procedures involved with full code, DNR CC arrest and DNR CC, the patient opted for full code. Patient does want artificial life support including intubation, tube feed, ventilator and/chest compression, central venous catheter, vasopressor and DC shock if needed Total time spent in qirb-so-nfet encounter in discussion of advanced directive 16 minutes. HPI Consult Data Date of Consult: 03/23/22 HPI Narrative Reason for Consultation: Medical management of multiple active issues including cough, chronic SOB HPI Narrative: ALESSANDRO GUARDADO, is a 76 F who who is admitted as an observation after elective angiogram for retained Mediport catheter and central venous system. Patient had Ultrasound-guided venous access the right femoral vein with snaring and retrieval of foreign body within the left subclavian vein. After discussion with the vascular surgeon, Dr. Moris De Jesus same patient had catheter in left basilic vein which got displaced and migrated to left subclavian vein. The patient has history of primary NSCLC of right lung and for that she had MediPort. She also complains of chronic cough worse than normal since June. She states he intermittently feels feverish but her temperature was around 98.4-99 F but never 101 or 100 2F. Last time she was admitted between January 01 - 01/08/2022 for acute on chronic combined hypoxic and hypercarbic respiratory failure.patient was treated with IV Zosyn for Pseudomonas pneumonia completed on 01/05/2022. Patient had right Pleurx catheter for recurrent pleural effusion which was removed last month. Last CTA chest scan from 03/18/2022 reviewed which shows diffuse right upper lobe consolidation small right pleural effusion. Multiple patchy nodules throughout the right lung concerning for metastatic nodules. It also reported new concerning possible metastatic disease, 7 mm nodule in the superior segment of left lower lobe. Patient history whether she can see Dr. Crouch for pneumonia but I offered to consult ID will be better choice for pneumonia and she agreed. [facility] Medical History Acute and chronic respiratory failure with hypoxia Acute bronchitis due to Rhinovirus Acute severe exacerbation of asthma Allergic rhinitis Anemia Anxiety Aspiration pneumonitis Asthma Asthmatic bronchitis Atrial fibrillation Atrial fibrillation with RVR BiPAP (biphasic positive airway pressure) dependence Body mass index (BMI) 50-59.9, adult Breast cancer Cancer Chronic diarrhea Chronic respiratory failure with hypoxia Dependence on supplemental oxygen Depression Diabetes Diabetes mellitus, type II Former smoker Former tobacco use GERD (gastroesophageal reflux disease) Heartburn High cholesterol History of primary non-small cell carcinoma of right lung History of right breast cancer History of steroid therapy Hypertension Immunosuppressed due to chemotherapy Leg cramps Loss of hearing Migraine headache Migraines Obstructive sleep apnea On home oxygen therapy Osteoarthritis Pneumonia Restless legs Sleep apnea Uses wheelchair Vitamin D deficiency Walker as ambulation aid Wears glasses Home Medications cholecalciferol (vitamin D3) 1,250 mcg (50,000 unit) capsule 50,000 unit PO SUWE@0800 SUPPLEMENT 06/01/17 [History Last Taken 03/18/22] albuterol sulfate 90 mcg/actuation aerosol inhaler (ProAir HFA) 2 puff inhalation Q6H PRN PRN Dyspnea/Wheezing/Sob 03/25/18 [History Last Taken 3 Days Ago ~03/15/22] fluticasone furoate 200 mcg-vilanterol 25 mcg/dose inhalation powder (Breo Ellipta) 2 inh inhalation DAILY sob 12/09/21 [History Last Taken 3 Days Ago ~03/15/22] insulin regular hum U-500 conc 500 unit/mL(3 mL) subcut pen (Humulin R U-500 (Conc) Insulin Kwikpen) 65 unit subcut DAILY diabetes 12/09/21 [History Last Taken 03/18/22] nadolol 40 mg tablet 40 mg PO DAILY heart 12/09/21 [History Last Taken 03/22/22] paroxetine HCl 40 mg tablet (Paxil) 40 mg PO DAILY mood 12/09/21 [History Last Taken 03/22/22] amiodarone 200 mg tablet 100 mg PO BID 30 days #30 tabs 12/16/21 [Rx Last Taken 03/22/22] nystatin 100,000 unit/gram topical powder (Nyamyc) 1 applic topical BID #0 grams 12/30/21 [Rx Last Taken Unknown] guaifenesin 1,200 mg tablet, extended release 12 hr (Mucus Relief ER) 600 mg PO BID 03/03/22 [History Last Taken 03/18/22] potassium chloride 10 mEq tablet,extended release 10 meq PO DAILY 03/03/22 [History Last Taken 03/18/22] pramipexole 0.5 mg tablet (Mirapex) 0.5 mg PO QPM 03/03/22 [History Last Taken 03/22/22] rosuvastatin 20 mg tablet 20 mg PO DAILY 03/03/22 [History Last Taken 03/22/22] prednisone 10 mg tablet 10 mg PO DAILY 03/18/22 [History Last Taken 03/18/22] Allergy/AdvReac Type Severity Reaction Status Date / Time adhesive tape Allergy tears skin Verified 03/23/22 07:49 cefadroxil [From Duricef] Allergy Unknown Verified 03/23/22 07:49 gluten Allergy celiac Verified 03/23/22 07:49 disease mesalamine [From Asacol] Allergy Unknown Verified 03/23/22 07:49 omalizumab [From Xolair] Allergy Unknown Verified 03/23/22 07:49 Sulfa (Sulfonamide Allergy swelling Verified 03/23/22 07:49 Antibiotics) as an oxycodone AdvReac Vomiting Verified 03/23/22 07:49 Family History Father Cancer Myocardial infarction Mother Cancer Metastatic breast CA Surgical History H/O rectocele repair History of lymph node dissection of right axilla History of mastectomy History of partial hysterectomy Hx of bilateral cataract extraction Hx of carpal tunnel repair Social History household members: spouse Smoking Status: Former smoker how long ago did patient quit smoking: Smoked x 2 years 1/2 ppd, quit ~ 50 years prior. alcohol intake: never substance use type: does not use ROS ROS Narrative Constitutional: Reports fatigue and weakness. Sleepy and drowsy after the procedure. Complain of low-grade fever/chills. HEENT: Chronic cough. Reports systems reviewed and no addt'l complaints, except as documented Respiratory/Chest: Chronic cough and shortness of breath. Gastrointestinal: Denies coffee ground emesis, hematemesis or vomiting Genitourinary: Denies burning urination or new urinary tract symptoms Musculoskeletal: Arthritis. Neurologic: Denies seizure-like activity skin: No ulcer. No rash Endocrinology: Reports systems reviewed and no addt'l complaints, except as documented Hematologic/Lymphatic: Reports systems reviewed and no addt'l complaints, except as documented Rest 14 ROS are limited and incomplete because patient is lethargic/drowsy after angiogram procedure. Review of Systems ROS Unobtainable: other Details: After the procedure. Anesthesia Physical Exam Narrative Physical exam General: Awake on command, lethargy, mild drowsy after procedure HEENT: Short and wide neck. Atraumatic, PERRLA, EOMI, Normocephalic Oral: Oral mucosa dry. Deep oral pharyngeal structures not completely visualized Neck: Supple, No JVD, Negative Carotid Bruits Lungs: Air entry diminished in right upper hemithorax and bilateral lung bases. No crepitation/rhonchi. Cardiovascular: Regular rate, Regular Rhythm, Normal S1, Normal S2, No murmurs Abdomen: Bowel Sounds Present, Soft, Non Tender, Non-Distended : No renal angle tenderness. No suprapubic tenderness. Extremities: No edema, Capillary Refill Less than 3 Seconds Skin: No rashes, No breakdown Musculoskeletal: ROM restricted. No Tenderness to Palpation of Joints or Extremities Neurological: Cranial nerves II-XII grossly intact, complete neuro exam unobtainable as patient is drowsy/lethargy Psych/Mental Status: Flat affect. Lab / Micro Data Result Diagrams: 03/23/22 08:12 Labs: Laboratory Results - last 24 hr 03/23/22 07:48: POC Glucose 130 H 03/23/22 08:12: Blood Type A NEGATIVE, Antibody Screen NEGATIVE 03/23/22 08:12: WBC 13.5 H, RBC 3.63 L, Hgb 9.1 L, Hct 31.3 L, MCV 86.2, MCH 25.1 L, MCHC 29.1 L, RDW Std Deviation 57.4 H, RDW Coeff of Aniceto 18.1 H, Plt Count 337, MPV 9.3, Immature Gran % (Auto) 0.900, Neut % (Auto) 86.8 H, Lymph % (Auto) 6.6 L, [place] % (Auto) 5.0, Eos % (Auto) 0.4, Baso % (Auto) 0.3, Absolute Neuts (auto) 11.7 H, Absolute Lymphs (auto) 0.89, Nucleated RBC % 0 Charges/Coding Visit Charges Office Visits / Consults: [id number] OP Consult L4 Procedures Hospitalists Procedures: 23330 Advncd Care Plan 30 Min
--- NOTE | 2022-03-23 13:43 | PCM.OPRPT ---
Report of Operation Date of Procedure: 03/23/22 Pre-Operative Diagnosis: foreign body, left brachial vein Post-Operative Diagnosis: migration of prior foreign body to central venous system Surgery/Procedure Performed:: exploration left brachial vein, simple repair Description of Surgical Findings:: no medport remnants within brachial vein; fluoroscopy revealed migration to subclavian/innominate/SVC/intracardiac/pulmonary artery Surgeon: Moris De Jesus Specimen's removed: none Estimated Blood Loss (mL): 5 Description of Procedure: HPI: Patient is a 76-year-old female who previously had a left upper extremity Mediport via brachial vein access that had ceased functioning. She previously underwent effort to remove the Mediport however the conduit portion of the Mediport was detached from the access port and upon evaluation with fluoroscopy during that initial procedure it was in the proximal upper arm the near the prepped field. The time that already maximize local anesthetic use and the patient had been on the table for period time so she is brought back now for secondary effort to retrieve the remainder of the port. Description of procedure: Upon obtaining form consent and verification of correct patient procedure site patient was taken the operating room where she was positioned prepped and draped in usual sterile fashion. Timeout was then performed and sedation administered by anesthesia. Ultrasound was used to evaluate the veins of the left upper extremity and what appeared to be the remnant of the Mediport was felt to be visualized just distal to the axilla. Skin was anesthetized with 1% lidocaine and longitudinal incision was made with a 15 blade. Bovie electrocautery then used to dissect down through subcutaneous tissue and self-retaining retractors put in position. Wound care dissection down to level of fascia and the fascia was incised lateral retractors moved deeper in the wound. At this point sharp dissection used to dissect free the neurovascular bundle with care taken to identify protect the adjacent artery and nerves. And vein with significant mount of scar and what felt like a tubular structure within was identified this was dissected free cephalad. Right angle was used to place a vessel loop proximal distal as well as around sidebranches. Patient was then heparinized allowed to circulate for 3 minutes after which the vessels were occluded. Transverse venotomy was created and extended with Workman scissors. There was no Mediport visualized within the vein. We then opened further cephalad again an area where he felt there was a foreign body within the vessel lumen. This again was opened with 11 blade Celeport scissors again with no Mediport visualized. At this point fluoroscopy was brought into the room and imaging obtained of the left upper extremity and the chest which revealed that the port catheter portion had migrated with the most central portion actually within the pulmonary artery and the most distal portion within the subclavian vein. This is not accessible surgically so the plan was to attempt to snare in the Chief Controller Tower so the surgical portion was aborted. Incision was then closed with 3-0 Vicryl for Monocryl and Dermabond for the skin. At the conclusion the patient was taken to recovery room anticipated transport to the Chief Controller Tower for endovascular efforts. Complications Failure to retrieve Mediport catheter.
--- NOTE | 2022-03-23 13:51 | PCM.OPRPT ---
Report of Operation Date of Procedure: 03/23/22 Pre-Operative Diagnosis: Retained Mediport catheter in the central venous system Post-Operative Diagnosis: Same Surgery/Procedure Performed:: Ultrasound guided venous access the right femoral vein with snaring and retrieval of foreign body within the left subclavian vein Description of Surgical Findings:: Intact Mediport catheter retrieved Surgeon: Moris De Jesus Type of Anesthesia: Local Specimen's removed: Mediport catheter Estimated Blood Loss (mL): 5 Description of Procedure: HPI: 76-year-old patient who prior in the day underwent attempted arm cutdown extraction of remnant of Mediport. This was found to have migrated centrally to surgically accessible location. She is taken now for attempted endovascular snare and retrieval of the Mediport. Description of procedure: Upon obtaining informed consent and verification correct patient procedure site the patient was taken to the Program[facility] [employer] where she was positioned prepped and draped usual sterile fashion. Skin was anesthetized over the right common femoral vein and was then accessed in retrograde fashion with micropuncture needle and wire. This exchanged out for micropuncture sheath through which a starter wire was advanced and the micropuncture exchanged out for a 5 Ghanaian sheath. Through the 5 Ghanaian sheath Bentson wire was advanced into the inferior vena cava and the 5 Ghanaian sheath exchanged out for the dilators for 12 Ghanaian sheath and ultimately attempted 12 Ghanaian sheath advanced into the femoral vein. Difficulty tracking until Ghanaian sheath so the dilator was readvanced and the Bentson wire exchanged for a glide advantage wire. 12 Ghanaian sheath was advanced over the glide advantage wire successfully and positioned into the inferior vena cava. Patient was then we bolused with heparin and the glide advantage wire navigated into the left subclavian vein. The catheter for a trilobed snare was then advanced over the glide advantage wire and the Glidewire withdrawn. The snare was then advanced through the catheter and allowed to open beyond the tip of the retained catheter. After multiple passes drawing back the open snare were able to snare the end of the remnant catheter and withdrawn with the snare through the 12 Ghanaian sheath. The catheter was then inspected and found to be intact with no evidence of fracture. We then reimage the chest with fluoroscopy and confirmed that there were no remnant portions of the catheter remaining. This point the patient was reversed with protamine the sheath withdrawn and manual pressure held for 10 minutes. Patient was taken recovery room with anticipated observation overnight. Complications None
[2022-03-23] MEDS: Acetaminophen 500 MG Tablet 1000 MG PO ×2 (14:13→21:40)
[2022-03-23] MEDS: 0.9% Normal Saline 1,000 ML 50 ML IV (14:13)
--- NOTE | 2022-03-23 15:05 | RAD_ITS ---
STUDY: X-RAY CHEST REASON FOR EXAM: Female, 76 years old. COUGH, FEVER TECHNIQUE: Single AP portable view of the chest. COMPARISON: Comparison is made with prior study 03/09/2022. FINDINGS: A right-sided Port-A-Cath is seen with the tip at the junction of superior vena cava and right atrium. Surgical clips are seen in the right axillary region. Stable consolidation and volume loss in the right upper lobe. There now is evidence of patchy irregular infiltrates in the left upper lobe as well as in the lingula segment of the left upper lobe. This most likely represents superimposed pulmonary infiltrates. Follow-up is recommended. There is no demonstrated pleural abnormality. Normal size heart. Normal mediastinum and tanna. Normal visualized pulmonary arteries. There is atherosclerotic calcification of the aortic arch with tortuosity. There are diffuse degenerative changes of the visualized thoracic spine. Normal visualized ribs, clavicles, and shoulders. There is no demonstrated abnormality of the visualized soft tissue structures of the upper abdomen. RAD/Chest 1 View (Portable) IMPRESSION: Stable appearance of the right hemithorax. New irregular patchy nodular densities in the left lung as described. This most likely represents pneumonic infiltrates. Follow-up recommended. Electronically Signed: Salazar Garcia MD at 15:33 EDT ,
--- NOTE | 2022-03-23 15:37 | CASEMGMT ---
Patient has a Healthcare Power of Filtration Operator (HCPOA) and a Healthcare Living Will (HCLW) and they are on file at [facility]. Patient's daughter Santa Matute is her HCPOA. Jordana Marc FLIGHT SERVICE AGENT VARSHA
[2022-03-23 16:30] LABS: Bedside Glucose 120 mg/dL (74-106)
[2022-03-23 16:33] LABS: ALB/GLOB Ratio 0.4 RATIO (0.9-2.4); AST(SGOT) 10 U/L (15-37); Alanine Aminotransfer ALT/SGPT 18 U/L (13-56); Alkaline Phosphatase 109 U/L (45-117); Anion Gap 3 (5-15); BUN 25 mg/dL (7-18); BUN/Creat Ratio 23.1 RATIO (10-20); Calcium,Total 9.5 mg/dL (8.5-10.1); Chloride 105 mmol/L (98-107); Creatinine, Serum 1.08 mg/dL (0.55-1.02); EST Glomerular Filtration Rate 53 mL/min (>60); Est Glom Filt Rate - Afr Amer 64 mL/min (>60); Globulin 4.5 g/dL (2.2-4.2); Glucose 132 mg/dL (74-106); Magnesium 1.9 mg/dL (1.6-2.6); Protein, Total 6.5 g/dL (6.4-8.2); Sodium Level 141 mmol/L (136-145)
[2022-03-23] MEDS: Ipratropium/Albuterol Sulfate 3 ML AMPUL.NEB INHALATION (20:02)
[2022-03-23 20:38] LABS: M R Staph aureus DNA By PCR Negative (Negative); Probe Check PASS; Specimen Processing Control PASS
[2022-03-23] MEDS: Amiodarone 200 MG Tablet 100 MG PO (21:41)
[2022-03-23] MEDS: guaiFENesin 600 MG Tablet PO (21:42)
[2022-03-23] MEDS: Pramipexole Di-HCl 0.5 MG Tablet PO (21:42)
[2022-03-23] MEDS: Nystatin Powder 15gm Bottle 1 APPLIC TOPICAL (21:43)
[2022-03-23 22:41] LABS: Bedside Glucose 136 mg/dL (74-106)
[2022-03-24] VITALS (14 sets, daily range): BP systolic 124–131; BP diastolic 51–56; PULSE 63–81; RESP 12–27; TEMP 36.6–37; O2SAT 96–100
[2022-03-24 05:28] LABS: Absolute Neutrophil Count 9.2 X10^3/uL (2.0-7.7); Basophil# 0.03 X10^3/uL; Basophil% 0.3 % (0-1); Eosinophil# 0.17 X10^3/uL; Eosinophils% 1.6 % (0-5); Hematocrit 28.4 % (37-47); Hemoglobin 8.5 g/dL (12.0-15.0); Lymphocyte % 5.7 % (19-41); Mean Corp Hgb Conc 29.9 g/dL (32-36); Mean Corpuscular Hgb 25.6 pg (27.0-32.0); Mean Corpuscular Volume 85.5 fL (81-99); Mean Platelet Vol. 9.2 fl (6.2-12.0); Monocyte# 0.52 X10^3/uL; Monocyte% 4.9 % (0-10); NRBC Flagged by Analyzer 0 % (0-5); Neutrophil # 9.19 X10^3/uL (2.7-7.7); Neutrophil % 86.7 % (47-70); POSITIVE DIFFERENTIAL YES; Platelet Count 262 K/mm3 (150-450); RBC Distribution Width CV 18.3 % (11.6-14.6); Red Blood Count 3.32 M/mm3 (4.2-5.4); White Blood Count 10.6 K/mm3 (4.4-11.0)
[2022-03-24 05:39] LABS: Differential Indicated SCAN CRITERIA MET
[2022-03-24 05:50] LABS: Anion Gap 6 (5-15); BUN 30 mg/dL (7-18); Calcium,Total 9.1 mg/dL (8.5-10.1); Chloride 106 mmol/L (98-107); EST Glomerular Filtration Rate 57 mL/min (>60); Est Glom Filt Rate - Afr Amer 69 mL/min (>60); Estimated Creatinine Clearance 43.74 ml/min; Glucose 117 mg/dL (74-106); Potassium 4.2 mmol/L (3.5-5.1); Sodium Level 140 mmol/L (136-145)
[2022-03-24 06:16] LABS: Differential Comment SCANNED
[2022-03-24] MEDS: Acetaminophen 500 MG Tablet 1000 MG PO ×2 (06:35→23:27)
[2022-03-24 07:00] LABS: Bedside Glucose 109 mg/dL (74-106)
[2022-03-24] MEDS: Ipratropium/Albuterol Sulfate 3 ML AMPUL.NEB INHALATION ×3 (07:15→20:03)
--- NOTE | 2022-03-24 07:37 | NURSING ---
Charting reviewed with Alexsandra SAN
--- NOTE | 2022-03-24 08:58 | PCM.PN.SRG ---
Subjective Subjective Arm pain, worsened by BP cuff but no alternative location options. Nausea better, tolerated breakfast. Minimal groin pain. Objective Data Objective Data Vital Signs: Vital Signs Temp Pulse Resp BP Pulse Ox O2 Del Method O2 Flow Rate 97.9 F 69 16 124/56 H 100 Nasal Cannula 4 03/24/22 04:35 03/24/22 07:32 03/24/22 07:15 03/24/22 04:35 03/24/22 07:15 03/24/22 07:15 03/24/22 07:15 FiO2 30 03/24/22 03:22 Oxygen Flow Rate (L/min) 4 Oxygen Delivery Method Nasal Cannula Weight: 283 lb 15.286 oz Body Mass Index (BMI) 47.6 Intake & Output: Intake and Output for Last 24 Hours 03/22/22 03/23/22 03/24/22 23:59 23:59 23:59 Intake Total 786.83 / 786.83 170 / 170 Output Total 320 / 320 Balance 786.83 / 786.83 -150 / -150 Lab / Micro Data Result Diagrams: 03/24/22 04:39 03/24/22 04:39 Labs: Laboratory Results - last 24 hr 03/23/22 07:48: POC Glucose 130 H 03/23/22 08:12: Blood Type A NEGATIVE, Antibody Screen NEGATIVE 03/23/22 16:05: Sodium 141, Potassium 4.0, Chloride 105, Carbon Dioxide 33.0 H, Anion Gap 3 L, BUN 25 H, Creatinine 1.08 H, Estim Creat Clear Calc 40.50, Est GFR (MDRD) Af Amer 64, Est GFR (MDRD) Non-Af 53 L, BUN/Creatinine Ratio 23.1 H, Glucose 132 H, Calcium 9.5, Magnesium 1.9, Total Bilirubin 0.20, AST 10 L, ALT 18, Alkaline Phosphatase 109, Total Protein 6.5, Albumin 2.0 L, Globulin 4.5 H, Albumin/Globulin Ratio 0.4 L 03/23/22 16:09: POC Glucose 120 H 03/23/22 18:25: MRSA (PCR) Negative 03/23/22 21:45: POC Glucose 136 H 03/24/22 04:39: WBC 10.6, RBC 3.32 L, Hgb 8.5 L, Hct 28.4 L, MCV 85.5, MCH 25.6 L, MCHC 29.9 L, RDW Std Deviation 57.0 H, RDW Coeff of Aniceto 18.3 H, Plt Count 262, MPV 9.2, Immature Gran % (Auto) 0.800, Neut % (Auto) 86.7 H, Lymph % (Auto) 5.7 L, [place] % (Auto) 4.9, Eos % (Auto) 1.6, Baso % (Auto) 0.3, Absolute Neuts (auto) 9.2 H, Absolute Lymphs (auto) 0.60 L, Nucleated RBC % 0, Differential Comment SCANNED 03/24/22 04:39: Sodium 140, Potassium 4.2, Chloride 106, Carbon Dioxide 28.0, Anion Gap 6, BUN 30 H, Creatinine 1.00, Estim Creat Clear Calc 43.74, Est GFR (MDRD) Af Amer 69, Est GFR (MDRD) Non-Af 57 L, BUN/Creatinine Ratio 30.0 H, Glucose 117 H, Calcium 9.1 03/24/22 06:32: POC Glucose 109 H Micro: Microbiology 03/23/22 21:16 Urine, Random Legionella Antigen - Final 03/23/22 21:16 Urine, Random Streptococcus pneumoniae Antigen (M - Final Radiography Diagnostic Testing: Radiology Impression Chest X-Ray 03/23/22 15:05 IMPRESSION: Stable appearance of the right hemithorax. New irregular patchy nodular densities in the left lung as described. This most likely represents pneumonic infiltrates. Follow-up recommended. Electronically Signed: Salazar Garcia MD at 15:33 EDT , Physical Exam Const alert, oriented x3, no apparent distress and healthy appearing General Appearance: cooperative; Negative for combative or lethargic Orientation / Consciousness: awake Exam Limitations: no limitations HEENT Head and Scalp: normocephalic and atraumatic Eyes EOMs intact bilaterally General Eye: normal appearance of both eyes Resp normal respiratory effort and no use of accessory muscles Effort and Inspection: Negative for labored, stridor or audible wheezes Cardio regular rate and regular rhythm Cardio Narrative: right femoral access soft, no hematoma Neuro oriented x3, CN's II-XII intact bilaterally, no focal motor deficits and no sensory deficits noted Psych thought process normal, cooperative, affect normal, speech normal and activity/motor behavior normal Assessment & Plan Assessment/Plan (1) Foreign body: PLAN: -s/p removal of retained medport -ID consult pending for pre-existing pneumonia issues, in process of getting home Cefipime arranged prior to procedure yesterday -hospitalist care appreciated -from surgical standpoint ok to DC, but will wait for input from ID
[2022-03-24] MEDS: guaiFENesin 600 MG Tablet PO ×2 (09:48→23:27)
[2022-03-24] MEDS: Potassium Chloride Oral Tablet 10 MEQ PO (09:48)
[2022-03-24] MEDS: Nadolol 40 MG Tablet PO (09:49)
[2022-03-24] MEDS: Amiodarone 200 MG Tablet 100 MG PO ×2 (09:49→23:27)
[2022-03-24] MEDS: APIXABAN 5 MG TABLET PO ×2 (09:50→23:27)
[2022-03-24] MEDS: 0.9% Normal Saline 1,000 ML 50 ML IV (09:58)
--- NOTE | 2022-03-24 10:10 | CON.PCM.ID_ITS ---
Assessment & Plan Assessment/Plan (1) Lung cancer: (2) SOB (shortness of breath): PLAN: Presumed L sided pneumonia. Spoke with Dr. Crouch, plan is for iv abx. Will order covid pcr, midline, and 10 days iv cefepime with weekly labs. ID followup as needed, thank you, will follow, d/w Dr. De Jesus and manager of case management; wrote rx for abx and labs. HPI Consult Data Date of Consult: 03/24/22 HPI Narrative HPI Narrative: ALESSANDRO GUARDADO, is a 76 F who presented 03/23 with retained portion YESI hilliard. On immunotherapy for metastatic lung cancer. PET at end of Feb showed RUL and lumbar spine involvement. Had some increased dyspnea, CT repeated 03/18, did not improve with course of z-joon, plan was made for iv abx. Was treated for pseudomonas pneumonia in January. Denies any new fever/chills, no new sputum. This AM, reports dyspnea unchanged over past few weeks. Admitted her for OR with Dr. De Jesus, started on cefepime, feeling ok. Some nausea, some headache. Full ROS performed and neg except as noted above. [facility] Medical History Acute and chronic respiratory failure with hypoxia Acute bronchitis due to Rhinovirus Acute severe exacerbation of asthma Allergic rhinitis Anemia Anxiety Aspiration pneumonitis Asthma Asthmatic bronchitis Atrial fibrillation Atrial fibrillation with RVR BiPAP (biphasic positive airway pressure) dependence Body mass index (BMI) 50-59.9, adult Breast cancer Cancer Chronic diarrhea Chronic respiratory failure with hypoxia Dependence on supplemental oxygen Depression Diabetes Diabetes mellitus, type II Former smoker Former tobacco use GERD (gastroesophageal reflux disease) Heartburn High cholesterol History of primary non-small cell carcinoma of right lung History of right breast cancer History of steroid therapy Hypertension Immunosuppressed due to chemotherapy Leg cramps Loss of hearing Migraine headache Migraines Obstructive sleep apnea On home oxygen therapy Osteoarthritis Pneumonia Restless legs Sleep apnea Uses wheelchair Vitamin D deficiency Walker as ambulation aid Wears glasses Home Medications cholecalciferol (vitamin D3) 1,250 mcg (50,000 unit) capsule 50,000 unit PO SUWE@0800 SUPPLEMENT 06/01/17 [History Last Taken 03/18/22] albuterol sulfate 90 mcg/actuation aerosol inhaler (ProAir HFA) 2 puff inhalation Q6H PRN PRN Dyspnea/Wheezing/Sob 03/25/18 [History Last Taken 3 Days Ago ~03/15/22] fluticasone furoate 200 mcg-vilanterol 25 mcg/dose inhalation powder (Breo Ellipta) 2 inh inhalation DAILY sob 12/09/21 [History Last Taken 3 Days Ago ~03/15/22] insulin regular hum U-500 conc 500 unit/mL(3 mL) subcut pen (Humulin R U-500 (Conc) Insulin Kwikpen) 65 unit subcut DAILY diabetes 12/09/21 [History Last Taken 03/18/22] nadolol 40 mg tablet 40 mg PO DAILY heart 12/09/21 [History Last Taken 03/22/22] paroxetine HCl 40 mg tablet (Paxil) 40 mg PO DAILY mood 12/09/21 [History Last Taken 03/22/22] amiodarone 200 mg tablet 100 mg PO BID 30 days #30 tabs 12/16/21 [Rx Last Taken 03/22/22] nystatin 100,000 unit/gram topical powder (Nyamyc) 1 applic topical BID #0 grams 12/30/21 [Rx Last Taken Unknown] guaifenesin 1,200 mg tablet, extended release 12 hr (Mucus Relief ER) 600 mg PO BID 03/03/22 [History Last Taken 03/18/22] potassium chloride 10 mEq tablet,extended release 10 meq PO DAILY 03/03/22 [History Last Taken 03/18/22] pramipexole 0.5 mg tablet (Mirapex) 0.5 mg PO QPM 03/03/22 [History Last Taken 03/22/22] rosuvastatin 20 mg tablet 20 mg PO DAILY 03/03/22 [History Last Taken 03/22/22] prednisone 10 mg tablet 10 mg PO DAILY 03/18/22 [History Last Taken 03/18/22] cefepime 2 gram solution for injection 2 g IV Q12 10 days #20 ea 03/24/22 [Rx Last Taken Unknown] Allergy/AdvReac Type Severity Reaction Status Date / Time adhesive tape Allergy tears skin Verified 03/23/22 07:49 cefadroxil [From Duricef] Allergy Unknown Verified 03/23/22 07:49 gluten Allergy celiac Verified 03/23/22 07:49 disease mesalamine [From Asacol] Allergy Unknown Verified 03/23/22 07:49 omalizumab [From Xolair] Allergy Unknown Verified 03/23/22 07:49 Sulfa (Sulfonamide Allergy swelling Verified 03/23/22 07:49 Antibiotics) as an infant oxycodone AdvReac Vomiting Verified 03/23/22 07:49 Family History Father Cancer Myocardial infarction Mother Cancer Metastatic breast CA Surgical History H/O rectocele repair History of lymph node dissection of right axilla History of mastectomy History of partial hysterectomy Hx of bilateral cataract extraction Hx of carpal tunnel repair Social History household members: spouse Smoking Status: Former smoker how long ago did patient quit smoking: Smoked x 2 years 1/2 ppd, quit ~ 50 years prior. alcohol intake: never substance use type: does not use Physical Exam Const alert, oriented x3 and no apparent distress General Appearance: cooperative HEENT normocephalic and head/scalp atraumatic Eyes PERRL and EOMs intact bilaterally Neck supple and No nodes Resp Auscultation: rhonchi Cardio regular rate and regular rhythm GI soft to palpation, non-tender and non-distended Extremity General Extremity: Negative for edema Skin no rashes or lesions noted Skin Narrative: R chest port, no inflammation Neuro CN's II-XII intact bilaterally Lab / Micro Data Attestation: I reviewed the patient's lab results. Result Diagrams: 03/24/22 04:39 03/24/22 04:39 Labs: Laboratory Results - last 24 hr 03/23/22 16:05: Sodium 141, Potassium 4.0, Chloride 105, Carbon Dioxide 33.0 H, Anion Gap 3 L, BUN 25 H, Creatinine 1.08 H, Estim Creat Clear Calc 40.50, Est GFR (MDRD) Af Amer 64, Est GFR (MDRD) Non-Af 53 L, BUN/Creatinine Ratio 23.1 H, Glucose 132 H, Calcium 9.5, Magnesium 1.9, Total Bilirubin 0.20, AST 10 L, ALT 18, Alkaline Phosphatase 109, Total Protein 6.5, Albumin 2.0 L, Globulin 4.5 H, Albumin/Globulin Ratio 0.4 L 03/23/22 16:09: POC Glucose 120 H 03/23/22 18:25: MRSA (PCR) Negative 03/23/22 21:45: POC Glucose 136 H 03/24/22 04:39: WBC 10.6, RBC 3.32 L, Hgb 8.5 L, Hct 28.4 L, MCV 85.5, MCH 25.6 L, MCHC 29.9 L, RDW Std Deviation 57.0 H, RDW Coeff of Aniceto 18.3 H, Plt Count 262, MPV 9.2, Immature Gran % (Auto) 0.800, Neut % (Auto) 86.7 H, Lymph % (Auto) 5.7 L, Gilmer % (Auto) 4.9, Eos % (Auto) 1.6, Baso % (Auto) 0.3, Absolute Neuts (auto) 9.2 H, Absolute Lymphs (auto) 0.60 L, Nucleated RBC % 0, Differential Comment SCANNED 03/24/22 04:39: Sodium 140, Potassium 4.2, Chloride 106, Carbon Dioxide 28.0, Anion Gap 6, BUN 30 H, Creatinine 1.00, Estim Creat Clear Calc 43.74, Est GFR (MDRD) Af Amer 69, Est GFR (MDRD) Non-Af 57 L, BUN/Creatinine Ratio 30.0 H, Glucose 117 H, Calcium 9.1 03/24/22 06:32: POC Glucose 109 H Micro: Microbiology 03/23/22 21:16 Urine, Random Legionella Antigen - Final 03/23/22 21:16 Urine, Random Streptococcus pneumoniae Antigen (M - Final Radiology Impression Chest X-Ray 03/23/22 11:23 IMPRESSION: Fluoroscopic guidance for retrieval of a fractured catheter. Electronically Signed: Salazar Garcia MD at 9:01 EDT , Chest X-Ray 03/23/22 15:05 IMPRESSION: Stable appearance of the right hemithorax. New irregular patchy nodular densities in the left lung as described. This most likely represents pneumonic infiltrates. Follow-up recommended. Electronically Signed: Salazar Garcia MD at 15:33 EDT ,
[2022-03-24] MEDS: Insulin U-500 UNITS/ML PEN 60 UNITS SC (11:06)
[2022-03-24] MEDS: Atorvastatin Calcium 40 MG Tablet PO (11:06)
[2022-03-24] MEDS: Nystatin Powder 15gm Bottle 1 APPLIC TOPICAL ×2 (11:06→23:26)
[2022-03-24] MEDS: Insulin Lispro 100 UNIT/ML INSULN.PEN SC (11:08)
--- NOTE | 2022-03-24 11:15 | CASEMGMT ---
RN CM assessment: Face to Face with patient for initial transition planning/care coordination assessment. RN CM introduced self and role at [facility], pt voices understanding and consents to assessment. Pt is A/Ox4 and answers all questions appropriately. Pt does try to get RN CM to call daughter, Santa, from [place] to complete assessment but this RN CM advised pt she can answer questions for assessment but pt does want this RN CM to call Santa for discharge planning.? Care providers, pharmacy,?and demographics verified. ? Presentation: As OP same day surgery for intravascular FB removal Admitting dx: Intravascular foreign body removal-then pt with recurrent pna PCP: Misty Specialists: Janene pulm; Willa, onc; Elsie [facility] Preferred Pharmacy: [facility] Insurance: [facility] Prescription Benefit:?AnthR Living Will/HPOA: Pt has LW/HPOA on file at [facility] and pt is aware. Pt's daughter, Santa, is HPOA. LNOK: Santa Matute, daughter/HPOA; Lalit Matute, [id number] Living Arrangements: Pt lives with 88yo in 2 story home with stair lift to 2nd floor with 5 railed steps in and states assists with ADL's when he can. 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 Transportation: Pt states [place]bx[place]la[place]yva drives and states no transportation concerns. DME/HHC: Pt has the following DME: WW, rollator, raised toilet seat, BSC, shower chair, grab bars, nebulizer, bipap, and 4L continuous home oxygen thru [employer]. Pt has had the following HHC: [facility] [place], [facility], and [facility]. Pt has been to [facility], [place], [facility], and [facility] in past. Pt is active with [facility]. Pt to be sent home on IV antibx(Cefepime 2 gram IV every 12 hours) and initially states wants to go home with [facility] for same. Pt then states that she has no one who is teachable for antibx and states she cannot complete them on her own. Pt was under the impression that [facility] would come out twice daily to do infusions and this RN CM advised that this RN CM has never known [facility] to come out daily let alone twice daily. Pt then requests again that this RN CM to call daughter. Advised pt that RN CM would call daughter as soon as assessment completed and pt states daughter is awaiting call. Pt also states that son and [id number]-bm-tlw were dx'd with COVID yesterday so they are unable to help pt at all at this time. Pt states is unable to complete IV antibx at home. Pt is retired. Pt does not smoke cigarettes or drink ETOH. Pt voices no further questions/concerns. CM to follow for further discharge planning/needs. Advised pt to ask for CM if any further questions/concerns/needs arise, voices understanding. 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
[2022-03-24 11:30] LABS: Bedside Glucose 160 mg/dL (74-106)
--- NOTE | 2022-03-24 11:31 | CASEMGMT ---
Addendum entered by Amparo Osuna 03/24/22 15:20: This RN CM to room to see if pt had spoken with daughter and she states she has not. This RN CM attempted to update pt and she states 'You need to tell Santa all this.' Advised pt that Lani from W[facility]'s office was supposed Santa to update. When aware of lack of someone teachable and [facility] not being willing to accept pt, pt states 'Santa is working on someone else to help out with that.' This RN CM advised pt that Santa said the same thing and this RN CM asked pt who that would be and pt states 'I am not telling you because then you might try to call them.' Call back from daughter and she is updated on all. Per Santa, she did not speak with Lani from Dr Crouch's office but she did receive a message from her advising Santa to work with this RN CM for discharge planning. Santa then asked about how many times HHC might come out/week and if they did not come out daily d/t reimbursement from [facility]/insurance. Santa requests that this RN CM call [facility] to answer these questions. When asked about who else she might be getting to assist at home, daughter states 'I told you that if HHC could do it M-F daily, I was going to try and get someone to come out on the weekends' but daughter would not tell this RN CM who that might be. Call to Nel at [facility] and she states that they normally do SOC dose with pt and someone teachable and then go out for 2nd dose for teach back. Per Nel, max is usually two visits/week and they are usually awaiting auth from insurances and they will not approve more visits. Call back to Santa to update, voices understanding. Per Santa, she states 'So then you are saying skilled would be your option.' Advised daughter that d/t lack of teachable person and Dr. Crouch's recommendation, SNF would really be the only option for pt to get the care/antibx that she needs. Daughter states she wants to make a few quick calls then she will call this RN CM back. CM to follow. SStaten RN CM Addendum entered by Amparo Osuna 03/24/22 15:04: Pt to have midline placed by seed analysis laboratory assistant. This RN CM has still not received call back from pt's daughter, Santa, so call placed to her and message left for her to call this RN CM back. Ginger RN CM Addendum entered by Amparo Osuna 03/24/22 14:30: [address] from Lani at Dr. Crouch's office and she states that [facility] will not accept pt if she does not have anyone teachable and that they will also not come out daily. Lani states she was trying to work on infusion but has not done that before and did not send appropriate info and then told [facility] infusion to just hold as pt was in the hospital and ID was seeing her. Per Lani, she just spoke with Dr. Crouch and he states if pt has no one teachable to do antibx at home then she will need to go skilled and Lani states she will be calling daughter immediately to update on all. Pt to have midline placed this afternoon. CM to follow and call daughter back, if don't hear from her soon. Ginger RN CM Addendum entered by Amparo Osuna 03/24/22 14:28: 1302 Per Dereck SAN, Lani from Dr. Crouch's office had just recently called him regarding d/c planning and her direct contact number is [phone] so this RN CM attempted to call her again but she did not answer. CM to follow. Ginger RN CM Addendum entered by Amparo Osuna 03/24/22 14:17: 1250 No call back yet from daughter so this RN CM placed call to Lani Heredia, coordinating nurse at Dr. Crouch's office, and message left for her to call this RN CM back regarding planning for pt. Ginger RN CM Addendum entered by Amparo Osuna 03/24/22 14:07: 1150 Call from pt's daughter, Santa, and she states that oncology office is working on [facility] to come out and see pt twice daily and that they are getting IV antibx set up for pt as 'this was all started prior to this admission.' This RN CM advised daughter that pt states she is unable to complete IV antibx at home on her own and /son/zdpowinj-ie-bpu are not able to help. Daughter also aware that HHC usually will just come out for the first dose and then pt/family do doses after that and HHC will just check in. Daughter still insists that [facility]HC was requested twice daily and if they can't do that then they 'will augment' with other options but when asked about who would augment, daughter cannot say. Daughter states she has been talking to oncology office and will call this RN CM back once she has spoken with them in the next hour or so. Daughter is aware that ID wrote script for IV antibx and she dismisses this, stating 'oncology is already working on this.' CM to follow. Ginger SAN CM Original Note: Call to pt's daughter, Santa, who is pt's HPOA to discuss d/c planning as pt states 'She makes all my decisions' and message left with daughter to call this RN CM back. Ginger SAN CM
--- NOTE | 2022-03-24 14:39 | PN.HOSP_ITS ---
Subjective Subjective Patient seen and examined. She had no active complaints today. She denies any fever, chills, cough,chest pain, palpitations, dizziness, nausea, vomiting or diarrhea Review of systems is otherwise negative. Objective Data Objective Data Vital Signs: Vital Signs Temp Pulse Resp BP Pulse Ox O2 Del Method O2 Flow Rate 97.9 F 70 16 124/56 H 100 Nasal Cannula 4 03/24/22 04:35 03/24/22 13:03 03/24/22 13:03 03/24/22 04:35 03/24/22 07:15 03/24/22 10:00 03/24/22 13:05 FiO2 30 03/24/22 03:22 Oxygen Flow Rate (L/min) 4 Oxygen Delivery Method Nasal Cannula Weight: 283 lb 15.286 oz Body Mass Index (BMI) 47.6 Intake & Output: Intake and Output for Last 24 Hours 03/22/22 03/23/22 03/24/22 23:59 23:59 23:59 Intake Total 786.83 / 786.83 1128.33 / 1128.33 Output Total 320 / 320 Balance 786.83 / 786.83 808.33 / 808.33 Lab / Micro Data Result Diagrams: 03/24/22 04:39 03/24/22 04:39 Labs: Laboratory Results - last 24 hr 03/23/22 16:05: Sodium 141, Potassium 4.0, Chloride 105, Carbon Dioxide 33.0 H, Anion Gap 3 L, BUN 25 H, Creatinine 1.08 H, Estim Creat Clear Calc 40.50, Est GF R (MDRD) Af Amer 64, Est GFR (MDRD) Non-Af 53 L, BUN/Creatinine Ratio 23.1 H, Glucose 132 H, Calcium 9.5, Magnesium 1.9, Total Bilirubin 0.20, AST 10 L, ALT 18, Alkaline Phosphatase 109, Total Protein 6.5, Albumin 2.0 L, Globulin 4.5 H, Albumin/Globulin Ratio 0.4 L 03/23/22 16:09: POC Glucose 120 H 03/23/22 18:25: MRSA (PCR) Negative 03/23/22 21:45: POC Glucose 136 H 03/24/22 04:39: WBC 10.6, RBC 3.32 L, Hgb 8.5 L, Hct 28.4 L, MCV 85.5, MCH 25.6 L, MCHC 29.9 L, RDW Std Deviation 57.0 H, RDW Coeff of Aniceto 18.3 H, Plt Count 262, MPV 9.2, Immature Gran % (Auto) 0.800, Neut % (Auto) 86.7 H, Lymph % (Auto) 5.7 L, [place] % (Auto) 4.9, Eos % (Auto) 1.6, Baso % (Auto) 0.3, Absolute Neuts (auto) 9.2 H, Absolute Lymphs (auto) 0.60 L, Nucleated RBC % 0, Differential Comment SCANNED 03/24/22 04:39: Sodium 140, Potassium 4.2, Chloride 106, Carbon Dioxide 28.0, Anion Gap 6, BUN 30 H, Creatinine 1.00, Estim Creat Clear Calc 43.74, Est GFR (MDRD) Af Amer 69, Est GFR (MDRD) Non-Af 57 L, BUN/Creatinine Ratio 30.0 H, Glucose 117 H, Calcium 9.1 03/24/22 06:32: POC Glucose 109 H 03/24/22 11:05: POC Glucose 160 H Micro: Microbiology 03/23/22 21:16 Urine, Random Legionella Antigen - Final 03/23/22 21:16 Urine, Random Streptococcus pneumoniae Antigen (M - Final Radiography Diagnostic Testing: Radiology Impression Chest X-Ray 03/23/22 11:23 IMPRESSION: Fluoroscopic guidance for retrieval of a fractured catheter. Electronically Signed: Salazar Garcia MD at 9:01 EDT , Chest X-Ray 03/23/22 15:05 IMPRESSION: Stable appearance of the right hemithorax. New irregular patchy nodular densities in the left lung as described. This most likely represents pneumonic infiltrates. Follow-up recommended. Electronically Signed: Salazar Garcia MD at 15:33 EDT , Physical Exam Const alert, oriented x3 and no apparent distress Constitutional Narrative: obese HEENT head/scalp atraumatic, moist oral mucous membranes and oropharynx normal Head and Scalp: normocephalic Mouth: oral and palatal mucosa normal Eyes PERRL Neck no lymphadenopathy, supple and no JVD Resp normal respiratory effort, no retractions and no use of accessory muscles Cardio regular rate, regular rhythm, S1 normal heart sound, S2 normal heart sound and no murmurs GI normal to inspection, nondistended, normoactive bowel sounds, soft to palpation, non-tender and non-distended Extremity normal to inspection, full ROM and no clubbing, cyanosis or edema Neuro oriented x3, CN's II-XII intact bilaterally and moves all extremities Sensorium / Orientation: awake and alert Motor Exam: strength 5/5 throughout Psych affect normal Assessment & Plan Assessment/Plan (1) Foreign body: (2) Pneumonia: PLAN: Plan #retained LUE mediport * sucessfully retrieved by vascular surgery. * management as per vascular surgery * * #Chronic hypoxic and hypercapnic respiratory failure * usually wears 4L of oxygen at home which is what she is on * Has had recurrent admissions for pneumonia and was treated for Pseudomonas pneumonia in January 2022. CTA from 03/18/2022 showed diffuse right upper lobe consolidation and small right pleural effusion and patchy iregular opacities o f left lung which are new. * ID on board * Currently on IV cefepime on account of the diffuse right upper lobe pneumonia. per ID, to be on IV cefepime x 10 days. * #Right sided pneumonia * on IV cefepime x 10 days per ID * ID on board. * CT chest findings as above. * #Paroxysmal A. fib: On amiodarone and nadolol. On Eliquis. #Stage III lung cancer: Status postchemotherapy and radiation. Follows with Dr. Crouch on outpatient basis. #Type 2 diabetes mellitus: On insulin sliding scale. Accu-Cheks ACH S. On Humulin 565 units daily. #Hypertension: on nadolol #Anxiety and depression: Also has ADHD. On methylphenidate and Paxil. #DORY: On CPAP but noncompliant. DVT prophylaxis: Eliquis. Charges/Coding Visit Charges Inpatient E&M: 27342 Subs Hosp L2
[2022-03-24 16:41] LABS: Bedside Glucose 131 mg/dL (74-106)
--- NOTE | 2022-03-24 16:48 | PN.SURG_ITS ---
Subjective Subjective Midline placed. Arranging antibiotics. Unfortunately patients son, daughter in law and their family were diagnosed with Covid last night. They are her primary support. She lives at home with her who has limited ability to help her. Objective Data Objective Data Vital Signs: Vital Signs Temp Pulse Resp BP Pulse Ox O2 Del Method O2 Flow Rate 97.9 F 78 16 124/56 H 100 Nasal Cannula 4 03/24/22 04:35 03/24/22 15:20 03/24/22 13:03 03/24/22 04:35 03/24/22 07:15 03/24/22 14:00 03/24/22 14:00 FiO2 30 03/24/22 03:22 Oxygen Flow Rate (L/min) 4 Oxygen Delivery Method Nasal Cannula Weight: 283 lb 15.286 oz Body Mass Index (BMI) 47.6 Intake & Output: Intake and Output for Last 24 Hours 03/22/22 03/23/22 03/24/22 23:59 23:59 23:59 Intake Total 786.83 / 786.83 1128.33 / 1128.33 Output Total 320 / 320 Balance 786.83 / 786.83 808.33 / 808.33 Lab / Micro Data Result Diagrams: 03/24/22 04:39 03/24/22 04:39 Labs: Laboratory Results - last 24 hr 03/23/22 18:25: MRSA (PCR) Negative 03/23/22 21:45: POC Glucose 136 H 03/24/22 04:39: WBC 10.6, RBC 3.32 L, Hgb 8.5 L, Hct 28.4 L, MCV 85.5, MCH 25.6 L, MCHC 29.9 L, RDW Std Deviation 57.0 H, RDW Coeff of Aniceto 18.3 H, Plt Count 262, MPV 9.2, Immature Gran % (Auto) 0.800, Neut % (Auto) 86.7 H, Lymph % (Auto) 5.7 L, [place] % (Auto) 4.9, Eos % (Auto) 1.6, Baso % (Auto) 0.3, Absolute Neuts (auto) 9.2 H, Absolute Lymphs (auto) 0.60 L, Nucleated RBC % 0, Differential Comment SCANNED 03/24/22 04:39: Sodium 140, Potassium 4.2, Chloride 106, Carbon Dioxide 28.0, Anion Gap 6, BUN 30 H, Creatinine 1.00, Estim Creat Clear Calc 43.74, Est GFR (MDRD) Af Amer 69, Est GFR (MDRD) Non-Af 57 L, BUN/Creatinine Ratio 30.0 H, Glucose 117 H, Calcium 9.1 03/24/22 06:32: POC Glucose 109 H 03/24/22 11:05: POC Glucose 160 H 03/24/22 16:21: POC Glucose 131 H Micro: Microbiology 03/23/22 21:16 Urine, Random Legionella Antigen - Final 03/23/22 21:16 Urine, Random Streptococcus pneumoniae Antigen (M - Final Radiography Diagnostic Testing: Radiology Impression Chest X-Ray 03/23/22 11:23 IMPRESSION: Fluoroscopic guidance for retrieval of a fractured catheter. Electronically Signed: Salazar Garcia MD at 9:01 EDT , Chest X-Ray 03/23/22 15:05 IMPRESSION: Stable appearance of the right hemithorax. New irregular patchy nodular densities in the left lung as described. This most likely represents pneumonic infiltrates. Follow-up recommended. Electronically Signed: Salazar Garcia MD at 15:33 EDT , Assessment & Plan Assessment/Plan (1) Foreign body: PLAN: -social support limitations preclude discharge at this time -also has clinical/radiographic pneumonia, with attempts to arrange home antibiotics even prior to yesterdays procedure -she will contact her daughter (lives in [place]) to figure out means to get her help at home while son and his family recover from covid; if protracted may need SNF and patient is aware
[2022-03-24] MEDS: Pramipexole Di-HCl 0.5 MG Tablet PO (23:26)
[2022-03-25] VITALS (17 sets, daily range): BP systolic 118–134; BP diastolic 51–58; PULSE 65–88; RESP 12–26; TEMP 36.1–36.9; O2SAT 96–100
[2022-03-25 00:31] LABS: Bedside Glucose 132 mg/dL (74-106)
[2022-03-25] MEDS: Acetaminophen 500 MG Tablet 1000 MG PO ×2 (06:35→21:11)
[2022-03-25] MEDS: 0.9% Normal Saline 1,000 ML 50 ML IV (06:36)
[2022-03-25] MEDS: 0.9% Saline Lock 10 ML Syringe IV (06:39)
[2022-03-25 06:58] LABS: Absolute Lymphocyte Count 0.76 X10^3/uL (0.83-4.51); Absolute Neutrophil Count 7.8 X10^3/uL (2.0-7.7); Basophil# 0.05 X10^3/uL; Basophil% 0.5 % (0-1); Eosinophil# 0.19 X10^3/uL; Hematocrit 28.3 % (37-47); Hemoglobin 8.3 g/dL (12.0-15.0); Lymphocyte # 0.76 X10^3/ul (0.83-4.51); Mean Corp Hgb Conc 29.3 g/dL (32-36); Mean Corpuscular Hgb 24.9 pg (27.0-32.0); Mean Platelet Vol. 9.3 fl (6.2-12.0); Monocyte# 0.56 X10^3/uL; Monocyte% 5.9 % (0-10); NRBC Flagged by Analyzer 0 % (0-5); Neutrophil # 7.81 X10^3/uL (2.7-7.7); Neutrophil % 82.4 % (47-70); Platelet Count 255 K/mm3 (150-450); RBC Distribution Width CV 18.2 % (11.6-14.6); RBC Distribution Width SD 56.6 fl (35.1-43.9); Red Blood Count 3.33 M/mm3 (4.2-5.4); White Blood Count 9.5 K/mm3 (4.4-11.0)
[2022-03-25] MEDS: Ipratropium/Albuterol Sulfate 3 ML AMPUL.NEB INHALATION ×3 (07:05→19:25)
[2022-03-25 07:06] LABS: Bedside Glucose 113 mg/dL (74-106)
[2022-03-25 07:23] LABS: Anion Gap 5 (5-15); BUN 23 mg/dL (7-18); BUN/Creat Ratio 30.9 RATIO (10-20); Calcium,Total 9.3 mg/dL (8.5-10.1); Chloride 107 mmol/L (98-107); Creatinine, Serum 0.74 mg/dL (0.55-1.02); EST Glomerular Filtration Rate 81 mL/min (>60); Est Glom Filt Rate - Afr Amer 98 mL/min (>60); Estimated Creatinine Clearance 43.74 ml/min; Glucose 118 mg/dL (74-106); Potassium 3.7 mmol/L (3.5-5.1); Sodium Level 141 mmol/L (136-145)
[2022-03-25] MEDS: Nadolol 40 MG Tablet PO (08:58)
[2022-03-25] MEDS: Ergocalciferol 1.25 MG (50, 000 UNIT) Capsule PO (08:58)
[2022-03-25] MEDS: APIXABAN 5 MG TABLET PO ×2 (08:58→21:12)
[2022-03-25] MEDS: Amiodarone 200 MG Tablet 100 MG PO ×2 (08:58→21:11)
[2022-03-25] MEDS: Potassium Chloride Oral Tablet 10 MEQ PO (08:58)
[2022-03-25] MEDS: Nystatin Powder 15gm Bottle 1 APPLIC TOPICAL ×2 (08:59→21:07)
[2022-03-25] MEDS: Atorvastatin Calcium 40 MG Tablet PO (08:59)
[2022-03-25] MEDS: Paroxetine 20 MG Tablet 40 MG PO (08:59)
[2022-03-25] MEDS: guaiFENesin 600 MG Tablet PO ×2 (08:59→21:10)
[2022-03-25 10:45] LABS: Bedside Glucose 126 mg/dL (74-106)
--- NOTE | 2022-03-25 10:48 | CASEMGMT ---
Addendum entered by Amparo Osuna 03/25/22 15:43: Per Nel at [facility], they an accept pt and do SOC on 03/27/22 for morning dose and she did speak with pt's daughter regarding same. Plan will be to d/c pt tomorrow evening after her pm dose then [facility] will be out in morning to do SOC/teaching. Call to Renetta at [facility] and she is updated on all and states they will set up delivery for end of day 03/26/22 so that [facility] will have meds/supplies for Wednesday am. Per Renetta, she does not need any further clinicals/info. Message left with Santa, pt's daughter, regarding all and for her to call this RN CM back with any questions. Dr. De Jesus and Chucho RN updated. CM to follow. Ginger RN CM Addendum entered by Amparo Osuna 03/25/22 13:17: Call back from Santa, daughter, and she is agreeable to [facility]. Referral sent via [employer]. Santa aware that plan is for SOC tomorrow for the 1900 dose and she states her person that is supposed to help with this cannot be there till about 1999. RN CM advised her that that should still work but she is uncertain but this RN CM will see how everything works out with HHC and infusion. Daughter aware that infusion is 30min here in hospital, voices understanding. Still awaiting call from [facility] on acceptance. CM to follow. Ginger RN CM Addendum entered by Amparo Osuna 03/25/22 12:45: Message from [facility] infusion and they state they are unable to accept pt. Message left with daughter, Santa, regarding all and to call this RN CM back. This RN CM still awaiting call back from [facility] regarding acceptance. Ginger RN CM Addendum entered by Amparo Osuna 03/25/22 11:58: Message from [facility] that they are unable to staff pt at this time do they cannot accept. CM to follow. Ginger RN CM Original Note: Call from pt's daughter/HPOA, Santa, and she states that she still plans for pt to go home with HHC/IV antibx set up and that she has 5 family/friends lined up to help complete home antibx. This RN CM asked if all 5 ppl would be able to be there to be taught by [facility] and daughter states that they will not but that several are RN/[employer]'s and 'they will be fine.' She states they will should know or will teach each other. This RN CM advised that home IV antibx are different than a nurse giving antibx in hospital and daughter states then 'I will have my niece video it to show to the others.' Daughter is insistent on pt going home with these ppl assisting with IV antibx. Daughter requests that start times be moved back to 0700 and 1900(they are currently 1000/2200 but morning dose today was started at 0900). Marlee, pharmacy and Ruben SAN updated and dose tonight to be given at 2000 and then dose tomorrow morning to be given at 0700, voice understanding. Daughter states would like [facility] infusion and then [facility] or [facility]. Referrals sent to all via [employer] and message left with Niru at [facility] regarding referral. CM to follow. Ginger SAN CM
--- NOTE | 2022-03-25 11:25 | PN.HOSP_ITS ---
Subjective Subjective Patient seen and examined. She feels well and has no active complaints. She had an uneventful night and review of systems otherwise negative. She has remained hemodynamically stable. Objective Data Objective Data Vital Signs: Vital Signs Temp Pulse Resp BP Pulse Ox O2 Del Method O2 Flow Rate 97.6 F L 69 18 118/58 L 97 Nasal Cannula 4 03/25/22 08:53 03/25/22 08:53 03/25/22 08:53 03/25/22 08:53 03/25/22 10:47 03/25/22 08:53 03/25/22 10:47 FiO2 30 03/25/22 03:21 Oxygen Flow Rate (L/min) 4 Oxygen Delivery Method Nasal Cannula Weight: 283 lb 15.286 oz Body Mass Index (BMI) 47.6 Intake & Output: Intake and Output for Last 24 Hours 03/23/22 03/24/22 03/25/22 23:59 23:59 23:59 Intake Total 786.83 / 786.83 1128.33 / 1128.33 1200 / 1200 Output Total 320 / 720 1050 / 1050 Balance 786.83 / 786.83 808.33 / 408.33 150 / 150 Lab / Micro Data Result Diagrams: 03/25/22 06:00 03/25/22 06:00 Labs: Laboratory Results - last 24 hr 03/24/22 11:05: POC Glucose 160 H 03/24/22 13:25: COVID-19 (REBEKA) Not Detected 03/24/22 16:21: POC Glucose 131 H 03/24/22 23:16: POC Glucose 132 H 03/25/22 06:00: WBC 9.5, RBC 3.33 L, Hgb 8.3 L, Hct 28.3 L, MCV 85.0, MCH 24.9 L , MCHC 29.3 L, RDW Std Deviation 56.6 H, RDW Coeff of Aniceto 18.2 H, Plt Count 255, MPV 9.3, Immature Gran % (Auto) 1.200 H, Neut % (Auto) 82.4 H, Lymph % (Auto) 8.0 L, [place] % (Auto) 5.9, Eos % (Auto) 2.0, Baso % (Auto) 0.5, Absolute Neuts (auto) 7.8 H, Absolute Lymphs (auto) 0.76 L, Nucleated RBC % 0 10/19/22 06:00: Sodium 141, Potassium 3.7, Chloride 107, Carbon Dioxide 29.0, Anion Gap 5, BUN 23 H, Creatinine 0.74, Estim Creat Clear Calc 43.74, Est GFR (MDRD) Af Amer 98, Est GFR (MDRD) Non-Af 81, BUN/Creatinine Ratio 30.9 H, Glucose 118 H, Calcium 9.3 03/25/22 06:34: POC Glucose 113 H 03/25/22 10:21: POC Glucose 126 H Micro: Microbiology 03/23/22 21:16 Urine, Random Legionella Antigen - Final 03/23/22 21:16 Urine, Random Streptococcus pneumoniae Antigen (M - Final Physical Exam Const alert, oriented x3 and no apparent distress Constitutional Narrative: obese HEENT head/scalp atraumatic, moist oral mucous membranes and oropharynx normal Head and Scalp: normocephalic Mouth: oral and palatal mucosa normal Eyes PERRL Neck no lymphadenopathy, supple and no JVD Resp normal respiratory effort, no retractions and no use of accessory muscles Cardio regular rate, regular rhythm, S1 normal heart sound, S2 normal heart sound and no murmurs GI normal to inspection, nondistended, normoactive bowel sounds, soft to palpation, non-tender and non-distended Extremity normal to inspection, full ROM and no clubbing, cyanosis or edema Neuro oriented x3, CN's II-XII intact bilaterally and moves all extremities Sensorium / Orientation: awake and alert Motor Exam: strength 5/5 throughout Psych affect normal Assessment & Plan Assessment/Plan (1) Foreign body: (2) Pneumonia: PLAN: Plan #retained LUE mediport * sucessfully retrieved by vascular surgery. * management as per vascular surgery * * #Chronic hypoxic and hypercapnic respiratory failure * usually wears 4L of oxygen at home which is what she is on * Has had recurrent admissions for pneumonia and was treated for Pseudomonas pneumonia in January 2022. CTA from 03/18/2022 showed diffuse right upper lobe consolidation and small right pleural effusion and patchy iregular opacities of left lung which are new. * ID on board * Currently on IV cefepime on account of the diffuse right upper lobe pneumonia. per ID, to be on IV cefepime x 10 days. * #Right sided pneumonia * on IV cefepime x 10 days per ID * ID on board. * CT chest findings as above. * had midline inserted yesterday * #Paroxysmal A. fib: On amiodarone and nadolol. On Eliquis. #Stage III lung cancer: Status postchemotherapy and radiation. Follows with Dr. Crouch on outpatient basis. #Type 2 diabetes mellitus: On insulin sliding scale. Accu-Cheks ACH S. On Humulin 565 units daily. #Hypertension: on nadolol #Anxiety and depression: Also has ADHD. On methylphenidate and Paxil. #DORY: On CPAP but noncompliant. DVT prophylaxis: Eliquis. Disposition: * awaiting dc. * Family trying to sort out who will help administer her IV antibiotics over the next 10 days as they do not wanted to go to a fdc. * Case management helping to facilitate discharge. Charges/Coding Visit Charges Inpatient E&M: 69860 Subs Hosp L2
--- NOTE | 2022-03-25 12:38 | PN.SURG_ITS ---
Subjective Subjective Looks and feels much better each day. Tolerating diet. Breathing less labored. Her family is making arrangements to help her at home; will be in place tomorrow. Objective Data Objective Data Vital Signs: Vital Signs Temp Pulse Resp BP Pulse Ox O2 Del Method O2 Flow Rate 97.6 F L 69 18 118/58 L 97 Nasal Cannula 4 03/25/22 08:53 03/25/22 08:53 03/25/22 08:53 03/25/22 08:53 03/25/22 10:47 03/25/22 08:53 03/25/22 10:47 FiO2 30 03/25/22 03:21 Oxygen Flow Rate (L/min) 4 Oxygen Delivery Method Nasal Cannula Weight: 283 lb 15.286 oz Body Mass Index (BMI) 47.6 Intake & Output: Intake and Output for Last 24 Hours 03/23/22 03/24/22 03/25/22 23:59 23:59 23:59 Intake Total 786.83 / 786.83 1128.33 / 1128.33 1200 / 1200 Output Total 320 / 720 1050 / 1050 Balance 786.83 / 786.83 808.33 / 408.33 150 / 150 Lab / Micro Data Result Diagrams: 03/25/22 06:00 03/25/22 06:00 Labs: Laboratory Results - last 24 hr 03/24/22 13:25: COVID-19 (REBEKA) Not Detected 03/24/22 16:21: POC Glucose 131 H 03/24/22 23:16: POC Glucose 132 H 03/25/22 06:00: WBC 9.5, RBC 3.33 L, Hgb 8.3 L, Hct 28.3 L, MCV 85.0, MCH 24.9 L , MCHC 29.3 L, RDW Std Deviation 56.6 H, RDW Coeff of Aniceto 18.2 H, Plt Count 255, MPV 9.3, Immature Gran % (Auto) 1.200 H, Neut % (Auto) 82.4 H, Lymph % (Auto) 8.0 L, [place] % (Auto) 5.9, Eos % (Auto) 2.0, Baso % (Auto) 0.5, Absolute Neuts (auto) 7.8 H, Absolute Lymphs (auto) 0.76 L, Nucleated RBC % 0 03/25/22 06:00: Sodium 141, Potassium 3.7, Chloride 107, Carbon Dioxide 29.0, Anion Gap 5, BUN 23 H, Creatinine 0.74, Estim Creat Clear Calc 43.74, Est GFR (MDRD) Af Amer 98, Est GFR (MDRD) Non-Af 81, BUN/Creatinine Ratio 30.9 H, Glucose 118 H, Calcium 9.3 03/25/22 06:34: POC Glucose 113 H 03/25/22 10:21: POC Glucose 126 H Micro: Microbiology 03/23/22 21:16 Urine, Random Legionella Antigen - Final 03/23/22 21:16 Urine, Random Streptococcus pneumoniae Antigen (M - Final Physical Exam Const alert, oriented x3, no apparent distress and healthy appearing General Appearance: cooperative; Negative for combative or lethargic Orientation / Consciousness: awake Exam Limitations: no limitations HEENT Head and Scalp: normocephalic and atraumatic Eyes EOMs intact bilaterally General Eye: normal appearance of both eyes Neck full ROM General: trachea midline Resp normal respiratory effort and no use of accessory muscles Effort and Inspection: Negative for labored, stridor or audible wheezes Cardio regular rate and regular rhythm Back/Spine Cervical Spine: cervical ROM normal Extremity full ROM, normal capillary refill and no clubbing, cyanosis or edema Neuro oriented x3, CN's II-XII intact bilaterally, no focal motor deficits and no sensory deficits noted Psych thought process normal, cooperative, affect normal, speech normal and activ ity/motor behavior normal Assessment & Plan Assessment/Plan (1) Foreign body: PLAN: -arrangements for assist at home in place for tomorrow -cont atbx, also arranged to continue as outpatient -dc home tomorrow
[2022-03-25] MEDS: Insulin Lispro 100 UNIT/ML INSULN.PEN SC ×2 (16:40→21:07)
[2022-03-25 17:05] LABS: Bedside Glucose 157 mg/dL (74-106)
--- NOTE | 2022-03-25 18:43 | NURSING ---
pt was in bed when suction tube was stuck to left inner thigh, pt has a small blister on inner thigh. Charge nurse and pt nurse were both notified.
[2022-03-25] MEDS: Pramipexole Di-HCl 0.5 MG Tablet PO (21:13)
[2022-03-25 23:26] LABS: Bedside Glucose 196 mg/dL (74-106)
[2022-03-26] VITALS (12 sets, daily range): BP systolic 130–137; BP diastolic 50–66; PULSE 66–77; RESP 14–27; TEMP 36.9–37; O2SAT 95–100
[2022-03-26] MEDS: 0.9% Normal Saline 1,000 ML 50 ML IV (03:44)
[2022-03-26 05:58] LABS: Absolute Lymphocyte Count 0.62 X10^3/uL (0.83-4.51); Absolute Neutrophil Count 7.6 X10^3/uL (2.0-7.7); Basophil# 0.03 X10^3/uL; Basophil% 0.3 % (0-1); Eosinophil# 0.24 X10^3/uL; Eosinophils% 2.7 % (0-5); Hematocrit 27.5 % (37-47); Hemoglobin 7.9 g/dL (12.0-15.0); Lymphocyte # 0.62 X10^3/ul (0.83-4.51); Lymphocyte % 6.9 % (19-41); Mean Corp Hgb Conc 28.7 g/dL (32-36); Mean Corpuscular Hgb 24.5 pg (27.0-32.0); Mean Corpuscular Volume 85.1 fL (81-99); Mean Platelet Vol. 9.6 fl (6.2-12.0); Monocyte# 0.49 X10^3/uL; Monocyte% 5.4 % (0-10); NRBC Flagged by Analyzer 0 % (0-5); Neutrophil # 7.57 X10^3/uL (2.7-7.7); Neutrophil % 83.6 % (47-70); Platelet Count 240 K/mm3 (150-450); RBC Distribution Width CV 17.8 % (11.6-14.6); RBC Distribution Width SD 55.8 fl (35.1-43.9); Red Blood Count 3.23 M/mm3 (4.2-5.4); White Blood Count 9.1 K/mm3 (4.4-11.0)
[2022-03-26 06:31] LABS: Anion Gap 3 (5-15); BUN 16 mg/dL (7-18); BUN/Creat Ratio 26.2 RATIO (10-20); Calcium,Total 9.1 mg/dL (8.5-10.1); Chloride 106 mmol/L (98-107); Creatinine, Serum 0.61 mg/dL (0.55-1.02); EST Glomerular Filtration Rate 101 mL/min (>60); Est Glom Filt Rate - Afr Amer 123 mL/min (>60); Estimated Creatinine Clearance 43.74 ml/min; Glucose 138 mg/dL (74-106); Potassium 4.2 mmol/L (3.5-5.1); Sodium Level 139 mmol/L (136-145)
[2022-03-26] MEDS: Acetaminophen 500 MG Tablet 1000 MG PO ×2 (06:46→14:24)
[2022-03-26] MEDS: Ipratropium/Albuterol Sulfate 3 ML AMPUL.NEB INHALATION ×3 (07:02→19:18)
[2022-03-26 07:15] LABS: Bedside Glucose 130 mg/dL (74-106)
--- NOTE | 2022-03-26 08:55 | PN.SURG_ITS ---
Subjective Subjective Breathing improved, still gerald diet. Objective Data Objective Data Vital Signs: Vital Signs Temp Pulse Resp BP Pulse Ox O2 Del Method O2 Flow Rate 98.6 F 73 24 H 130/59 H 98 Nasal Cannula 4 03/26/22 03:46 03/26/22 07:02 03/26/22 07:02 03/26/22 03:46 03/26/22 07:02 03/26/22 07:35 03/26/22 07:35 FiO2 30 03/26/22 04:56 Oxygen Flow Rate (L/min) 4 Oxygen Delivery Method Nasal Cannula Weight: 284 lb 2.813 oz Body Mass Index (BMI) 47.6 Intake & Output: Intake and Output for Last 24 Hours 03/24/22 03/25/22 03/26/22 23:59 23:59 23:59 Intake Total 1128.33 / 1128.33 1300 / 1300 1100 / 1100 Output Total 320 / 720 1600 / 1800 500 / 500 Balance 808.33 / 408.33 -300 / -500 600 / 600 Lab / Micro Data Result Diagrams: 03/26/22 04:42 03/26/22 04:42 Labs: Laboratory Results - last 24 hr 03/25/22 10:21: POC Glucose 126 H 03/25/22 16:39: POC Glucose 157 H 03/25/22 20:58: POC Glucose 196 H 03/26/22 04:42: WBC 9.1, RBC 3.23 L, Hgb 7.9 L, Hct 27.5 L, MCV 85.1, MCH 24.5 L , MCHC 28.7 L, RDW Std Deviation 55.8 H, RDW Coeff of Aniceto 17.8 H, Plt Count 240, MPV 9.6, Immature Gran % (Auto) 1.100 H, Neut % (Auto) 83.6 H, Lymph % (Auto) 6.9 L, [place] % (Auto) 5.4, Eos % (Auto) 2.7, Baso % (Auto) 0.3, Absolute Neuts (auto) 7.6, Absolute Lymphs (auto) 0.62 L, Nucleated RBC % 0 03/26/22 04:42: Sodium 139, Potassium 4.2, Chloride 106, Carbon Dioxide 30.0, Anion Gap 3 L, BUN 16, Creatinine 0.61, Estim Creat Clear Calc 43.74, Est GFR (MDRD) Af Amer 123, Est GFR (MDRD) Non-Af 101, BUN/Creatinine Ratio 26.2 H, Glucose 138 H, Calcium 9.1 03/26/22 06:50: POC Glucose 130 H Micro: Microbiology 03/23/22 18:30 Blood Culture (Wb) - Left Hand Blood Culture - Preliminary No growth in 48 hours. 03/23/22 18:25 Blood Culture (Wb) - Left Wrist Blood Culture - Preliminary No growth in 48 hours. 03/23/22 21:16 Urine, Random Legionella Antigen - Final 03/23/22 21:16 Urine, Random Streptococcus pneumoniae Antigen (M - Final Physical Exam Const alert, oriented x3, no apparent distress and healthy appearing General Appearance: cooperative; Negative for combative or lethargic Orientation / Consciousness: awake Exam Limitations: no limitations HEENT Head and Scalp: normocephalic and atraumatic Eyes EOMs intact bilaterally General Eye: normal appearance of both eyes Neck General: trachea midline Resp normal respiratory effort and no use of accessory muscles Effort and Inspection: Negative for labored, stridor or audible wheezes Cardio regular rate and regular rhythm Skin Skin Narrative: Inc C/D/I, mild erythema distal upper arm Neuro oriented x3, CN's II-XII intact bilaterally, no focal motor deficits and no sensory deficits noted Psych thought process normal, cooperative, affect normal, speech normal and activity/motor behavior normal Assessment & Plan Assessment/Plan (1) Foreign body: PLAN: -antibiotics arranged; will discharge after 2nd dose today -DC home this evening
--- NOTE | 2022-03-26 08:58 | PCM.DC.SUM ---
Providers Date of Admission: 03/24/22 Date of Discharge: 03/26/22 Primary Care Physician: Dr. Senait Jay MD Consultations 03/23/22 14:52 Consult: Infectious Disease Routine Consulting Provider: Dre Plascencia Reason for Consult: H/o nonresolving pneumonia, NSCLD EMERGENT Consult: No MD Notified: Yes Date Notified: 03/23/22 Time Notified: 14:54 Method of Notification: Text Reason For Visit: INTRAVASCULAR FOREIGN BODY Diagnosis Discharge Diagnosis (1) Foreign body: Status: Acute Plan: -antibiotics arranged; will discharge after 2nd dose today -DC home this evening Medications at Discharge Home Medications cholecalciferol (vitamin D3) 1,250 mcg (50,000 unit) capsule 50,000 unit PO SUWE@0800 SUPPLEMENT 06/01/17 albuterol sulfate 90 mcg/actuation aerosol inhaler (ProAir HFA) 2 puff inhalation Q6H PRN PRN Dyspnea/Wheezing/Sob 03/25/18 fluticasone furoate 200 mcg-vilanterol 25 mcg/dose inhalation powder (Breo Ellipta) 2 inh inhalation DAILY sob 12/09/21 insulin regular hum U-500 conc 500 unit/mL(3 mL) subcut pen (Humulin R U-500 (Conc) Insulin Kwikpen) 65 unit subcut DAILY diabetes 12/09/21 nadolol 40 mg tablet 40 mg PO DAILY heart 12/09/21 paroxetine HCl 40 mg tablet (Paxil) 40 mg PO DAILY mood 12/09/21 amiodarone 200 mg tablet 100 mg PO BID 30 days #30 tabs 12/16/21 nystatin 100,000 unit/gram topical powder (Nyamyc) 1 applic topical BID #0 grams 12/30/21 guaifenesin 1,200 mg tablet, extended release 12 hr (Mucus Relief ER) 600 mg PO BID 03/03/22 potassium chloride 10 mEq tablet,extended release 10 meq PO DAILY 03/03/22 pramipexole 0.5 mg tablet (Mirapex) 0.5 mg PO QPM 03/03/22 rosuvastatin 20 mg tablet 20 mg PO DAILY 03/03/22 prednisone 10 mg tablet 10 mg PO DAILY 03/18/22 cefepime 2 gram solution for injection 2 g IV Q12 10 days #20 ea 03/24/22 apixaban 5 mg tablet (Eliquis) mg Check with primary doctor 03/26/22 Hospital Course Operations - (1)left arm exploration 2) endovascular retrieval medport) Summary of Care Provided Hospital Course: Patient presented for elective operative retrieval of retained Medport conduit in 03/23. Upon surgical exploration the port conduit was no longer in the brachial vein. 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 She was then taken same day to clinical laboratory scientist for endovascular snare retrieval which was successful. Given two separate procedures and her comorbidities she was observed overnight. She also had cocnurrent pneumonia which was in early stages of outpatient treatment so IV antibiotics were initiated. The evening of surgery she found out all the people in her social support were newly diagnosed with Covid so she had no help at home. She also needed completion of arrangements for her outpatient antibiotics. She was admitted while outpatient care and medication could be coordinated. Her pulmonary status improved over admission and she was discharged to home 03/26. Physical Exam Const alert, oriented x3, no apparent distress and healthy appearing General Appearance: cooperative; Negative for combative or lethargic Orientation / Consciousness: awake Exam Limitations: no limitations HEENT Head and Scalp: normocephalic and atraumatic Eyes EOMs intact bilaterally General Eye: normal appearance of both eyes Neck General: trachea midline Resp normal respiratory effort and no use of accessory muscles Effort and Inspection: Negative for labored, stridor or audible wheezes Cardio regular rate and regular rhythm Neuro oriented x3, CN's II-XII intact bilaterally, no focal motor deficits and no sensory deficits noted Psych thought process normal, cooperative, affect normal, speech normal and activity/motor behavior normal Weight / BMI Weight Weight: 284 lb 2.813 oz Body Mass Index (BMI) 47.6 ABG / Lab / Microbiology Data Result Diagrams: 03/26/22 04:42 03/26/22 04:42 Laboratory: Laboratory Results - last 24 hr 03/25/22 10:21: POC Glucose 126 H 03/25/22 16:39: POC Glucose 157 H 03/25/22 20:58: POC Glucose 196 H 03/26/22 04:42: WBC 9.1, RBC 3.23 L, Hgb 7.9 L, Hct 27.5 L, MCV 85.1, MCH 24.5 L, MCHC 28.7 L, RDW Std Deviation 55.8 H, RDW Coeff of Aniceto 17.8 H, Plt Count 240, MPV 9.6, Immature Gran % (Auto) 1.100 H, Neut % (Auto) 83.6 H, Lymph % (Auto) 6.9 L, [place] % (Auto) 5.4, Eos % (Auto) 2.7, Baso % (Auto) 0.3, Absolute Neuts (auto) 7.6, Absolute Lymphs (auto) 0.62 L, Nucleated RBC % 0 03/26/22 04:42: Sodium 139, Potassium 4.2, Chloride 106, Carbon Dioxide 30.0, Anion Gap 3 L, BUN 16, Creatinine 0.61, Estim Creat Clear Calc 43.74, Est GFR (MDRD) Af Amer 123, Est GFR (MDRD) Non-Af 101, BUN/Creatinine Ratio 26.2 H, Glucose 138 H, Calcium 9.1 03/26/22 06:50: POC Glucose 130 H Microbiology: Microbiology 03/23/22 18:30 Blood Culture (Wb) - Left Hand Blood Culture - Preliminary No growth in 48 hours. 03/23/22 18:25 Blood Culture (Wb) - Left Wrist Blood Culture - Preliminary No growth in 48 hours. 03/23/22 21:16 Urine, Random Legionella Antigen - Final 03/23/22 21:16 Urine, Random Streptococcus pneumoniae Antigen (M - Final D/C Instructions Discharge Diet: No restrictions Discharge Activity: No Restrictions May shower in (days): 1 Weight Bearing Status: Weight bearing as tolerated Call your doctor if your incision/area has: Sudden Increased Bleeding, Increased Pain/ Swelling, Increased Redness and Foul Smelling Discharge Call your doctor if you observe: Fever of 101 or Higher Remove Dressing in: 1 day Meaningful Use Info Meaningful Use Diagnoses (Choose all that apply): None applicable Discharge Plan Admission Admit Date/Time: 03/24/22 11:10 Attending Provider: Moris De Jesus Primary Care Provider: Senait Jay Consulting Providers: Dre Plascencia ; Danielle Gonzalez Discharge Orders/Prescriptions Prescriptions: New cefepime 2 gram Recon Soln 2 g IV Q12 10 Days Qty: 20 0RF Rx Instructions: 10 day course weekly bmp and cbc while on iv abx. Fax to [phone] midline care per protocol Continued cholecalciferol (vitamin D3) 50,000 UNIT capsule 50,000 unit PO SUWE@0800 albuterol sulfate [ProAir HFA] 1 PUFF inhaler 2 puff inhalation Q6H PRN PRN (Reason: Dyspnea/Wheezing/Sob) paroxetine HCl [Paxil] 40 mg Tablet 40 mg PO DAILY nadolol 40 mg tablet 40 mg PO DAILY Label Comments: take 1 tablet by mouth once daily fluticasone furoate-vilanterol [Breo Ellipta] 200-25 mcg/dose blister with device 2 inh INHALATION DAILY Label Comments: inhale 1 puff by mouth INTO THE LUNGS once daily (USE GOOD ORAL CARE AFTER USE) Humulin R U-500 (Conc) Kwikpen 500 unit/mL (3 mL) insulin pen 65 unit SUBCUT DAILY Label Comments: INJECT 95 UNITS SUBCUTANEOUSLY DAILY BEFORE BREAKFAST AND 85 UNIT... (REFER TO PRESCRIPTION NOTES). amiodarone 200 mg Tablet 100 mg PO BID 30 Days Qty: 30 0RF nystatin [Nyamyc] 100,000 unit/gram Powder 1 applic topical BID Qty: 0 0RF Protocol: *Topical Application Instructions APPLICATION INSTRUCTIONS: groin, abdominal folds, under R breast Mucus Relief ER 1,200 mg tablet extended release 12hr 600 mg PO BID potassium chloride 10 mEq tablet extended release 10 meq PO DAILY pramipexole [Mirapex] 0.5 mg Tablet 0.5 mg PO QPM Rx Instructions: administer 2 - 3 hours before bedtime rosuvastatin 20 mg tablet 20 mg PO DAILY Eliquis 5 mg tablet prednisone 10 mg tablet 10 mg PO DAILY Label Comments: take 2 tablets by mouth once daily Other Ambulatory Orders: Basic Metabolic Profile (BMP) (Routine) Timeframe: 20220318 Facility: [facility] [place] - Location: Laboratory Ordered By: Dr. Moris De Jesus CBC-Complete Blood Cnt No Diff (Routine) Timeframe: 20220318 Facility: [facility] [place] - Location: Laboratory Ordered By: Dr. Moris De Jesus Referrals / Follow Up: Senait Jay MD [Primary Care Provider] - Disposition Disposition (needs filled in before D/C Order can be placed): Home Health Service
[2022-03-26] MEDS: Nadolol 40 MG Tablet PO (09:04)
[2022-03-26] MEDS: APIXABAN 5 MG TABLET PO (09:04)
[2022-03-26] MEDS: Paroxetine 20 MG Tablet 40 MG PO (09:04)
[2022-03-26] MEDS: Amiodarone 200 MG Tablet 100 MG PO (09:05)
[2022-03-26] MEDS: Potassium Chloride Oral Tablet 10 MEQ PO (09:05)
[2022-03-26] MEDS: guaiFENesin 600 MG Tablet PO (09:05)
[2022-03-26] MEDS: Atorvastatin Calcium 40 MG Tablet PO (09:05)
[2022-03-26] MEDS: Nystatin Powder 15gm Bottle 1 APPLIC TOPICAL (09:06)
--- NOTE | 2022-03-26 11:05 | CASEMGMT ---
Addendum entered by Samanta Tan 03/26/22 15:17: IV atb script faxed to [facility] per Niru's request. Original Note: JASWINDER PLASCENCIA NOTE: Discharge summary sent to [facility] via [facility]. Neftaly MEJIA RN CM
[2022-03-26 11:40] LABS: Bedside Glucose 140 mg/dL (74-106)
--- NOTE | 2022-03-26 12:40 | CASEMGMT ---
JASWINDER PLASCENCIA NOTE: 11:08: Spoke w/Renetta @ [facility]. She was made aware d/c plan is still for pt to receive 6 PM dose of cefepime tonight and then discharge home & [facility] SOC slated for tomorrow AM, for 0700 dose. Pt's granddaughter, Marissa Matute, states she will be @ pt's home tomorrow AM for [facility] SOC/teaching and requests [facility] deliver atb/supplies to pt's home before 7 PM tonight if possible. Marissa's # is: [phone]. She states pt's will be home all day, and if he does not answer, to have package left on back porch. Renetta made aware of all of the above and states she will shahida the delivery to be before 7 PM tonight and states they do prefer someone to be @ the home, but they can leave it @ the back porch, if does not answer. Marissa made aware of same. Renetta did state she has attempted to contact pt's dtr/Santa HICKMAN, but was unsuccessful and was unable to leave a VM, but she will continue to try and contact her, as she would like to confirm she is aware of co-pay of $100/week. Marissa provided w/ADINA/Renetta contact info and this JASWINDER PLASCENCIA contact # and will provide this to Santa. 11:30: JASWINDER PLASCENCIA spoke Florentino @ [facility] and she confirms SOC slated for tomorrow AM for 1st home dose of cefepime and that [facility] confirms delivery of atb/supplies this PM. She was made aware Marissa will be there for education tomorrow AM and she was provided w/Marissa's contact # and will inform her of exact time for SOC once it is confirmed. Marissa made aware. Call received from eli/Santa HICKMAN @ 12:40, who states was aware of the co-pay of $100/week. She was also made aware of delivery by [facility] before 7 PM tonight. She confirms that Marissa will be there for SOC w/[facility] in the AM along with another family member who will also be administering the IV atb for them to receive education as well. Santa asked for [facility] contact info, which was provided by JASWINDER PLASCENCIA. Santa denies having further questions or concerns. Pt made aware of all of the above. RNShanta, also aware of discharge plan after 6 PM dose of cefepime tonight. Neftaly BSN JASWINDER PLASCENCIA
--- NOTE | 2022-03-26 13:20 | PN.HOSP_ITS ---
Subjective Subjective Patient seen and examined. She had no active complaints and had an uneventful night. REview of systems is otherwise negative. She has remained hemodynamically stable Objective Data Objective Data Vital Signs: Vital Signs Temp Pulse Resp BP Pulse Ox O2 Del Method O2 Flow Rate 98.5 F 68 18 137/50 H 100 Nasal Cannula 4 03/26/22 09:01 03/26/22 09:01 03/26/22 09:01 03/26/22 09:01 03/26/22 09:01 03/26/22 09:01 03/26/22 09:01 FiO2 30 03/26/22 04:56 Oxygen Flow Rate (L/min) 4 Oxygen Delivery Method Nasal Cannula Weight: 284 lb 2.813 oz Body Mass Index (BMI) 47.6 Intake & Output: Intake and Output for Last 24 Hours 03/24/22 03/25/22 03/26/22 23:59 23:59 23:59 Intake Total 1128.33 / 1128.33 1300 / 1300 1500 / 1500 Output Total 320 / 720 1600 / 1800 900 / 900 Balance 808.33 / 408.33 -300 / -500 600 / 600 Lab / Micro Data Result Diagrams: 03/26/22 04:42 03/26/22 04:42 Labs: Laboratory Results - last 24 hr 03/25/22 16:39: POC Glucose 157 H 03/25/22 20:58: POC Glucose 196 H 03/26/22 04:42: WBC 9.1, RBC 3.23 L, Hgb 7.9 L, Hct 27.5 L, MCV 85.1, MCH 24.5 L , MCHC 28.7 L, RDW Std Deviation 55.8 H, RDW Coeff of Aniceto 17.8 H, Plt Count 240, MPV 9.6, Immature Gran % (Auto) 1.100 H, Neut % (Auto) 83.6 H, Lymph % (Auto) 6.9 L, [place] % (Auto) 5.4, Eos % (Auto) 2.7, Baso % (Auto) 0.3, Absolute Neuts (auto) 7.6, Absolute Lymphs (auto) 0.62 L, Nucleated RBC % 0 03/26/22 04:42: Sodium 139, Potassium 4.2, Chloride 106, Carbon Dioxide 30.0, Anion Gap 3 L, BUN 16, Creatinine 0.61, Estim Creat Clear Calc 43.74, Est GFR (MDRD) Af Amer 123, Est GFR (MDRD) Non-Af 101, BUN/Creatinine Ratio 26.2 H, Glucose 138 H, Calcium 9.1 03/26/22 06:50: POC Glucose 130 H 03/26/22 11:20: POC Glucose 140 H Micro: Microbiology 03/23/22 18:30 Blood Culture (Wb) - Left Hand Blood Culture - Preliminary No growth in 48 hours. 03/23/22 18:25 Blood Culture (Wb) - Left Wrist Blood Culture - Preliminary No growth in 48 hours. 03/23/22 21:16 Urine, Random Legionella Antigen - Final 03/23/22 21:16 Urine, Random Streptococcus pneumoniae Antigen (M - Final Physical Exam Const alert, oriented x3 and no apparent distress Constitutional Narrative: obese HEENT head/scalp atraumatic, moist oral mucous membranes and oropharynx normal Head and Scalp: normocephalic Mouth: oral and palatal mucosa normal Eyes PERRL Neck no lymphadenopathy, supple and no JVD Resp normal respiratory effort, no retractions and no use of accessory muscles Cardio regular rate, regular rhythm, S1 normal heart sound, S2 normal heart sound and no murmurs GI normal to inspection, nondistended, normoactive bowel sounds, soft to palpation, non-tender and non-distended Extremity normal to inspection, full ROM and no clubbing, cyanosis or edema Neuro oriented x3, CN's II-XII intact bilaterally and moves all extremities Sensorium / Orientation: awake and alert Motor Exam: strength 5/5 throughout Psych affect normal Assessment & Plan Assessment/Plan (1) Foreign body: (2) Pneumonia: PLAN: Plan #retained LUE mediport * sucessfully retrieved by vascular surgery. * management as per vascular surgery * * #Chronic hypoxic and hypercapnic respiratory failure * usually wears 4L of oxygen at home which is what she is on * Has had recurrent admissions for pneumonia and was treated for Pseudomonas pneumonia in January 2022. CTA from 03/18/2022 showed diffuse right upper lobe consolidation and small right pleural effusion and patchy iregular opacities of left lung which are new. * ID on board * Currently on IV cefepime on account of the diffuse right upper lobe pneumonia. per ID, to be on IV cefepime x 10 days. * #Right sided pneumonia * on IV cefepime x 10 days per ID * ID on board. * CT chest findings as above. * had midline inserted yesterday * #Paroxysmal A. fib: On amiodarone and nadolol. On Eliquis. #Stage III lung cancer: Status postchemotherapy and radiation. Follows with Dr. Crouch on outpatient basis. #Type 2 diabetes mellitus: On insulin sliding scale. Accu-Cheks ACH S. On Humulin 565 units daily. #Hypertension: on nadolol #Anxiety and depression: Also has ADHD. On methylphenidate and Paxil. #DORY: On CPAP but noncompliant. DVT prophylaxis: Eliquis. Disposition: * stable for discharge from hospitalist standpoint. * to dc today home after her evening dose of antibiotic. Charges/Coding Visit Charges Inpatient E&M: 19795 Subs Hosp L2
[2022-03-26] MEDS: Insulin Lispro 100 UNIT/ML INSULN.PEN SC (16:44)
[2022-03-26 17:10] LABS: Bedside Glucose 157 mg/dL (74-106)
== END 2022-03-26 19:50 | disposition home health service (06) | DRG 252 ==
LOC: SDC 19:36 → PCU 19:39
PROVIDERS: Internal Medicine; Internal Medicine Infectious Disease; Student in an Organized Health Care Education/Training Program; Admitting Provider Surgery Trauma Surgery; PCP Internal Medicine; Referring Provider Surgery Trauma Surgery; Visit Provider Surgery Trauma Surgery
PROC: (CPT 35860; principal; 2022-03-23 09:00)
DX: T82.524A Displacement of infusion catheter, initial encounter (principal); C34.90 Malignant neoplasm of unspecified part of unspecified bronchus or lung; J96.12 Chronic respiratory failure with hypercapnia; J96.11 Chronic respiratory failure with hypoxia; I48.0 Paroxysmal atrial fibrillation; Z68.42 Body mass index [BMI] 45.0-49.9, adult; E66.01 Morbid (severe) obesity due to excess calories; E11.9 Type 2 diabetes mellitus without complications; Z79.4 Long term (current) use of insulin; J18.9 Pneumonia, unspecified organism; J90 Pleural effusion, not elsewhere classified; I97.89 Other postprocedural complications and disorders of the circulatory system, not elsewhere classified; I10 Essential (primary) hypertension; G47.33 Obstructive sleep apnea (adult) (pediatric); F41.9 Anxiety disorder, unspecified; X58.XXXA Exposure to other specified factors, initial encounter; F32.A Depression, unspecified; R91.8 Other nonspecific abnormal finding of lung field; R53.81 Other malaise; Z90.11 Acquired absence of right breast and nipple; Z99.81 Dependence on supplemental oxygen; Z79.01 Long term (current) use of anticoagulants; Z79.899 Other long term (current) drug therapy; Z85.118 Personal history of other malignant neoplasm of bronchus and lung; Z87.891 Personal history of nicotine dependence; E78.00 Pure hypercholesterolemia, unspecified
CPT/HCPCS: 35860; 01770; 36415; 37197; 71045; 76000; 76937; 80048; 80053; 82962; 83735; 85025; 86850; 86900; 86901; 87040; 87449; 87635; 87641; 94002; 94003; 94640; 94762; 96365; 96366; 96367; 97162; 97166; 97530; 99221; 99251; 99252; C1769; J7030; J7040; A4216; C1773; C1894; G0378; G0463; J2405; U0003; U0005

== ENCOUNTER 2022-03-30 09:39 | Outpatient (RCR) | payer MEDICARE, SELFPAY ==
[2022-03-30 10:04] LABS: Hematocrit 30.5 % (37-47); Hemoglobin 8.7 g/dL (12.0-15.0); Mean Corp Hgb Conc 28.5 g/dL (32-36); Mean Corpuscular Hgb 24.6 pg (27.0-32.0); Mean Corpuscular Volume 86.4 fL (81-99); Platelet Count 298 K/mm3 (150-450); RBC Distribution Width CV 17.8 % (11.6-14.6); RBC Distribution Width SD 56.7 fl (35.1-43.9); Red Blood Count 3.53 M/mm3 (4.2-5.4); White Blood Count 10.8 K/mm3 (4.4-11.0)
[2022-03-30 10:19] LABS: Anion Gap 5 (5-15); BUN 19 mg/dL (7-18); BUN/Creat Ratio 23.9 RATIO (10-20); Calcium,Total 9.4 mg/dL (8.5-10.1); Chloride 102 mmol/L (98-107); EST Glomerular Filtration Rate 75 mL/min (>60); Est Glom Filt Rate - Afr Amer 90 mL/min (>60); Glucose 199 mg/dL (74-106); Potassium 4.4 mmol/L (3.5-5.1); Sodium Level 140 mmol/L (136-145)
== END 2022-04-06 23:59 ==
LOC: LABSPEC 09:39
PROVIDERS: PCP Internal Medicine; Visit Provider Internal Medicine Infectious Disease
DX: J18.9 Pneumonia, unspecified organism (principal)
CPT/HCPCS: 80048; 85027

== ENCOUNTER 2022-04-22 18:59 | Emergency (ER) | payer MEDICARE, SELFPAY ==
[2022-04-22] VITALS (7 sets, daily range): BP systolic 118–139; BP diastolic 60–96; PULSE 78–88; RESP 18–31; TEMP 36.1; O2SAT 94–99; BMI 51.4
--- NOTE | 2022-04-22 19:38 | EDS_ITS ---
HPI History of Present Illness Chief Complaint: Shortness of Breath Informant: patient Narrative Narrative: Patient presents with return of cough. Of note, takes quite a bit of time to get the order of events for her. At the end of the visit I find out she was treated for pneumonia with cefepime and this was just given her last dose Wednesday, 2 days ago. She had stated that she was positive for Pseudomonas but could not tell me when that was done. At the end of the visit I find out that was likely 3 weeks ago and the reason for starting IV cefepime. I guess she was upset at her last visit because they did not diagnose pneumonia. However, the CTA did not show pneumonia. She is here today saying that over the last 2 days since stopping cefepime she has been coughing more. Most of this is at night. She brings up a little bit of brown sputum but she is bringing this up for a while. She is not having fevers. She does have known history of lung cancer. No surgery is able to be done. She has had radiation therapy. She was due to start chemotherapy either today or tomorrow but did not feel well enough. Per a prior dictation, her oncologist has recommended hospice care for her. She is not in hospice care at this time. She states she also has bone cancer but does not know if that is separate or actually metastatic disease. From prior dictation my suspicion is that that may be metastatic. She is on Eliquis and is taking it. She states she has not been having fevers. However, she states she gets hot cold and sweats all the time and has been getting that for a long time so its not new or different. She denies any history of COPD or emphysema. She is not having pains. She has been eating and drinking. She is on 4 L of oxygen all the time. It sounds like her oxygen level did drop at home to the low 80s. It sounds like she was on oxygen at the time. [facility] Medical History Acute and chronic respiratory failure with hypoxia Acute bronchitis due to Rhinovirus Acute severe exacerbation of asthma Allergic rhinitis Anemia Anxiety Aspiration pneumonitis Asthma Asthmatic bronchitis Atrial fibrillation Atrial fibrillation with RVR BiPAP (biphasic positive airway pressure) dependence Body mass index (BMI) 50-59.9, adult Breast cancer Cancer Chronic diarrhea Chronic respiratory failure with hypoxia Dependence on supplemental oxygen Depression Diabetes Diabetes mellitus, type II Former smoker Former tobacco use GERD (gastroesophageal reflux disease) Heartburn High cholesterol History of primary non-small cell carcinoma of right lung History of right breast cancer History of steroid therapy Hypertension Immunosuppressed due to chemotherapy Leg cramps Loss of hearing Lung cancer Migraine headache Migraines Obstructive sleep apnea On home oxygen therapy Osteoarthritis Pneumonia Restless legs Sleep apnea Uses wheelchair Vitamin D deficiency Walker as ambulation aid Wears glasses Home Medications cholecalciferol (vitamin D3) 1,250 mcg (50,000 unit) capsule 50,000 unit PO SUWE@0800 SUPPLEMENT 06/01/17 [History Last Taken 03/18/22] albuterol sulfate 90 mcg/actuation aerosol inhaler (ProAir HFA) 2 puff inhalation Q6H PRN PRN Dyspnea/Wheezing/Sob 03/25/18 [History Last Taken 3 Days Ago ~03/15/22] fluticasone furoate 200 mcg-vilanterol 25 mcg/dose inhalation powder (Breo Ellipta) 2 inh inhalation DAILY sob 12/09/21 [History Last Taken 3 Days Ago ~03/15/22] insulin regular hum U-500 conc 500 unit/mL(3 mL) subcut pen (Humulin R U-500 (Conc) Insulin Kwikpen) 65 unit subcut DAILY diabetes 12/09/21 [History Last Taken 03/18/22] nadolol 40 mg tablet 40 mg PO DAILY heart 12/09/21 [History Last Taken 03/22/22] paroxetine HCl 40 mg tablet (Paxil) 40 mg PO DAILY mood 12/09/21 [History Last Taken 03/22/22] nystatin 100,000 unit/gram topical powder (Nyamyc) 1 applic topical BID #0 grams 12/30/21 [Rx Last Taken Unknown] guaifenesin 1,200 mg tablet, extended release 12 hr (Mucus Relief ER) 600 mg PO BID 03/03/22 [History Last Taken 03/18/22] potassium chloride 10 mEq tablet,extended release 10 meq PO DAILY 03/03/22 [History Last Taken 03/18/22] pramipexole 0.5 mg tablet (Mirapex) 0.5 mg PO QPM 03/03/22 [History Last Taken 03/22/22] rosuvastatin 20 mg tablet 20 mg PO DAILY 03/03/22 [History Last Taken 03/22/22] prednisone 10 mg tablet 10 mg PO DAILY 03/18/22 [History Last Taken 03/18/22] apixaban 5 mg tablet (Eliquis) 5 mg PO DAILY Check with primary doctor 03/26/22 [History Last Taken Unknown] amiodarone 100 mg tablet (Pacerone) 100 mg PO BID 04/22/22 [History Last Taken Unknown] furosemide 40 mg tablet 40 mg PO DAILY 04/22/22 [History Last Taken Unknown] ipratropium bromide 0.02 % solution for inhalation 2.5 ml inhalation Q8H PRN shortness of breath or wheezing #75 mL 04/22/22 [Rx Last Taken Unknown] Allergy/AdvReac Type Severity Reaction Status Date / Time adhesive tape Allergy tears skin Verified 03/23/22 07:49 cefadroxil [From Duricef] Allergy Unknown Verified 03/23/22 07:49 gluten Allergy celiac Verified 03/23/22 07:49 disease mesalamine [From Asacol] Allergy Unknown Verified 03/23/22 07:49 omalizumab [From Xolair] Allergy Unknown Verified 03/23/22 07:49 Sulfa (Sulfonamide Allergy swelling Verified 03/23/22 07:49 Antibiotics) as an oxycodone AdvReac Vomiting Verified 03/23/22 07:49 Family History Father Cancer Myocardial infarction Mother Cancer Metastatic breast CA Surgical History H/O rectocele repair History of lymph node dissection of right axilla History of mastectomy History of partial hysterectomy Hx of bilateral cataract extraction Hx of carpal tunnel repair Social History household members: spouse Smoking Status: Former smoker how long ago did patient quit smoking: Smoked x 2 years 1/2 ppd, quit ~ 50 years prior. alcohol intake: never substance use type: does not use ROS ROS ED Constitutional Constitutional ED: Reports subjective; Denies fever(s) Eyes Eyes: Denies blurry vision ENT ENT ED: Denies rhinorrhea or sore throat Cardiovascular Cardiovascular: Denies chest pain or palpitations Respiratory/Chest Respiratory/Chest: Reports cough, dyspnea and sputum Gastrointestinal Gastrointestinal: Denies nausea or vomiting Genitourinary Genitourinary ED: Denies dysuria Musculoskeletal Musculoskeletal: Denies arthralgias or myalgias Integumentary Denies rash Neurologic Neurologic: Denies headache(s) Endocrine Endocrinology: Denies polydipsia or polyuria Hematologic/Lymphatic Hematologic/Lymphatic: Reports easy bleeding and easy bruising Allergic/Immunologic Allergic/Immunologic ED: Denies urticaria EXAM Physical Exam Const Vital Signs: 04/22/22 19:01 04/22/22 19:08 04/22/22 20:01 Temperature 97 F L Temperature Source Temporal Pulse Rate 86 79 Respiratory Rate 31 H 24 H Respiratory Effort Short of Breath Respiratory Depth Normal Respiratory Pattern Normal Blood Pressure 118/96 H Blood Pressure Mean 103 Pulse Ox 97 Oxygen Delivery Method Nasal Cannula Nasal Cannula Oxygen Flow Rate (L/min) 4 4 04/22/22 21:03 Temperature Temperature Source Pulse Rate 78 Respiratory Rate 28 H Respiratory Effort Respiratory Depth Respiratory Pattern Blood Pressure 139/60 H Blood Pressure Mean 86 Pulse Ox 99 Oxygen Delivery Method Nasal Cannula Oxygen Flow Rate (L/min) 4 Positive well nourished General Appearance ED: NAD GEOVANNA Reports moist mucous membranes Eyes General Eye ED: Negative for scleral icterus Neck Neck Narrative: No stridor Resp Resp Narrative: Patient does have some coarse breath sounds mostly on the right side. I do not hear wheezing. She is about 98 to 100% on her liters nasal cannula while sitting in bed. Cardio regular rate and regular rhythm GI normal to inspection, nondistended, normoactive bowel sounds and non-tender Back/Spine no CVA tenderness Neuro Sensorium / Orientation: alert; Negative for orientation impaired, lethargic or stuporous Psych mental status grossly normal Skin no rashes or lesions noted MDM MDM MDM Narrative Medical decision making narrative: Chest x-ray showed some interstitial thickening of the right lung lobe suspected to be inflammatory. But she has known cancer in that area. The thickening of the left has improved markedly. Patient does not have an elevated white count. She has anemia which is chronic. Electrolytes show no marked abnormalities. Her glucose was up at 239. Lactic acid was normal. Patient is on Eliquis but has no reports of bleeding or black stools at this time. She has chronic anemia. We walked the patient. Her saturations while walking were 96%. Patient had reported a saturation at home at about 81% but we have never been able to reproduce anything near this. She does feel as though the breathing treatment helped her. She states she has albuterol and nebulizer at home but does not feel it makes a big difference. It is possible that the Atrovent helped her. She would like to go home. She is afraid if she comes in the hospital she will go to a detention again and she does not want to do that. I do not think she needs antibiotics at this time. She has no fever no white count. H we will try to do this. er x-ray is overall improved. I explained that it certainly possible she could develop further symptoms and need antibiotics in the near future. She is at risk for postobstructive pneumonias. But primary complaint is the cough and what brought her in was hypoxia that we have not been able to reproduce at any time. I will write for the Atrovent. I will see if we can get it for her before she goes. She also asked if we can get a copy of images for her physician. Lab Data Attestation: I reviewed the patient's lab results. Labs: Laboratory Results - last 24 hr 04/22/22 04/22/22 04/22/22 20:03 20:03 20:03 WBC 8.1 RBC 2.93 L Hgb 7.6 L Hct 25.4 L MCV 86.7 MCH 25.9 L MCHC 29.9 L RDW Std Deviation 56.9 H RDW Coeff of Aniceto 17.9 H Plt Count 167 MPV 9.5 Immature Gran % (Auto) 0.600 Neut % (Auto) 85.0 H Lymph % (Auto) 6.5 L Glenn % (Auto) 6.2 Eos % (Auto) 1.6 Baso % (Auto) 0.1 Absolute Neuts (auto) 6.9 Absolute Lymphs (auto) 0.52 L Nucleated RBC % 0 Differential Comment SCANNED Sodium 139 Potassium 4.2 Chloride 104 Carbon Dioxide 30.0 Anion Gap 5 BUN 18 Creatinine 0.81 Estim Creat Clear Calc 49.64 Est GFR (MDRD) Af Amer 88 Est GFR (MDRD) Non-Af 73 BUN/Creatinine Ratio 22.1 H Glucose 239 H Lactic Acid 1.8 Calcium 9.1 Radiography Diagnostic Testing: Clinical Impression(s) from Imaging Studies Chest X-Ray 04/22/22 20:10 IMPRESSION: Mild residual interstitial thickening in the left lower lobe which has improved since previous exam. Increasing interstitial thickening in the right lower lobe possibly inflammatory. Electronically Signed: Santana Beal MD at 20:53 EST , See above EKG Initial EKG: Comments: EKG done for cough and dyspnea read by me shows a normal sinus rhythm with first-degree AV block but appropriate rate at 79. No ectopy is noted. No acute ST elevation or depression. Mild nonspecific changes. W[place] interval is long. QRS duration and QTC are overall normal. This is similar to 1 from 18 March of this year Discharge Plan Triage Chief Complaint: Shortness of Breath ED Provider: Salvatore Davis Dx/Rx/DC Orders Clinical Impression: Cough, Metastatic primary lung cancer Instructions: ED Cough Chronic Uncertain Cause Adult Prescriptions: New ipratropium bromide 0.02 % solution 2.5 ml inhalation Q8H PRN (Reason: shortness of breath or wheezing) Qty: 75 0RF No Action cholecalciferol (vitamin D3) 50,000 UNIT capsule 50,000 unit PO SUWE@0800 albuterol sulfate [ProAir HFA] 1 PUFF inhaler 2 puff inhalation Q6H PRN PRN (Reason: Dyspnea/Wheezing/Sob) paroxetine HCl [Paxil] 40 mg Tablet 40 mg PO DAILY nadolol 40 mg tablet 40 mg PO DAILY Label Comments: take 1 tablet by mouth once daily fluticasone furoate-vilanterol [Breo Ellipta] 200-25 mcg/dose blister with device 2 inh INHALATION DAILY Label Comments: inhale 1 puff by mouth INTO THE LUNGS once daily (USE GOOD ORAL CARE AFTER USE) Humulin R U-500 (Conc) Kwikpen 500 unit/mL (3 mL) insulin pen 65 unit SUBCUT DAILY Label Comments: INJECT 95 UNITS SUBCUTANEOUSLY DAILY BEFORE BREAKFAST AND 85 UNIT... (REFER TO PRESCRIPTION NOTES). nystatin [Nyamyc] 100,000 unit/gram Powder 1 applic topical BID Qty: 0 0RF Protocol: *Topical Application Instructions APPLICATION INSTRUCTIONS: groin, abdominal folds, under R breast Mucus Relief ER 1,200 mg tablet extended release 12hr 600 mg PO BID potassium chloride 10 mEq tablet extended release 10 meq PO DAILY pramipexole [Mirapex] 0.5 mg Tablet 0.5 mg PO QPM Rx Instructions: administer 2 - 3 hours before bedtime rosuvastatin 20 mg tablet 20 mg PO DAILY Eliquis 5 mg tablet 5 mg PO DAILY prednisone 10 mg tablet 10 mg PO DAILY Label Comments: take 2 tablets by mouth once daily furosemide 40 mg tablet 40 mg PO DAILY amiodarone [Pacerone] 100 mg tablet 100 mg PO BID Primary Care Provider: Senait Jay Referrals: Senait Jay MD [Primary Care Provider] - 3-5 Days if not improving Disposition Disposition: Home, Self Care
[2022-04-22] MEDS: Ipratropium/Albuterol Sulfate 3 ML AMPUL.NEB INHALATION (20:00)
--- NOTE | 2022-04-22 20:10 | RAD_ITS ---
STUDY: X-RAY CHEST REASON FOR EXAM: Female, 76 years old. cough TECHNIQUE: AP portable COMPARISON: 03/23/2022 FINDINGS: There is partial collapse of the right upper lobe.. There is interstitial thickening within both lower lobes and left upper lobe slightly more pronounced on the left. This has improved in left lung since previous exam. The right lower lobe interstitial thickening has increased and may represent inflammatory changes. There is no demonstrated pleural abnormality. Normal size heart. Normal mediastinum and tanna. Normal visualized pulmonary arteries. Normal visualized aortic arch and descending thoracic aorta. Mediport catheter noted on the right with tip in the distal superior vena cava Normal visualized thoracic spine. Normal visualized ribs, clavicles, and shoulders. There is no demonstrated abnormality of the visualized soft tissue structures of the upper abdomen. RAD/Chest 1 View (Portable) IMPRESSION: Mild residual interstitial thickening in the left lower lobe which has improved since previous exam. Increasing interstitial thickening in the right lower lobe possibly inflammatory. Electronically Signed: Santana Beal MD at 20:53 EST ,
[2022-04-22 20:11] LABS: Absolute Lymphocyte Count 0.52 X10^3/uL (0.83-4.51); Absolute Neutrophil Count 6.9 X10^3/uL (2.0-7.7); Basophil# 0.01 X10^3/uL; Basophil% 0.1 % (0-1); Eosinophil# 0.13 X10^3/uL; Eosinophils% 1.6 % (0-5); Hematocrit 25.4 % (37-47); Hemoglobin 7.6 g/dL (12.0-15.0); Lymphocyte # 0.52 X10^3/ul (0.83-4.51); Lymphocyte % 6.5 % (19-41); Mean Corp Hgb Conc 29.9 g/dL (32-36); Mean Corpuscular Hgb 25.9 pg (27.0-32.0); Mean Corpuscular Volume 86.7 fL (81-99); Mean Platelet Vol. 9.5 fl (6.2-12.0); Monocyte% 6.2 % (0-10); NRBC Flagged by Analyzer 0 % (0-5); Neutrophil # 6.85 X10^3/uL (2.7-7.7); POSITIVE DIFFERENTIAL YES; Platelet Count 167 K/mm3 (150-450); RBC Distribution Width CV 17.9 % (11.6-14.6); RBC Distribution Width SD 56.9 fl (35.1-43.9); Red Blood Count 2.93 M/mm3 (4.2-5.4); White Blood Count 8.1 K/mm3 (4.4-11.0)
[2022-04-22 20:26] LABS: Anion Gap 5 (5-15); BUN 18 mg/dL (7-18); BUN/Creat Ratio 22.1 RATIO (10-20); Calcium,Total 9.1 mg/dL (8.5-10.1); Chloride 104 mmol/L (98-107); Creatinine, Serum 0.81 mg/dL (0.55-1.02); EST Glomerular Filtration Rate 73 mL/min (>60); Est Glom Filt Rate - Afr Amer 88 mL/min (>60); Estimated Creatinine Clearance 49.64 ml/min; Glucose 239 mg/dL (74-106); Potassium 4.2 mmol/L (3.5-5.1); Sodium Level 139 mmol/L (136-145)
[2022-04-22 20:27] LABS: Differential Indicated SCAN CRITERIA MET
[2022-04-22 20:38] LABS: Lactic Acid 1.8 mmol/L (0.4-1.9)
[2022-04-22 20:50] LABS: Differential Comment SCANNED
== END 2022-04-22 23:50 | disposition home or self-care (01) ==
PROVIDERS: Emergency Provider Emergency Medicine; PCP Internal Medicine; Visit Provider Emergency Medicine
DX: C34.90 Malignant neoplasm of unspecified part of unspecified bronchus or lung (principal); E11.9 Type 2 diabetes mellitus without complications; D64.9 Anemia, unspecified; E78.00 Pure hypercholesterolemia, unspecified; I10 Essential (primary) hypertension; R09.02 Hypoxemia; R06.02 Shortness of breath; Z87.891 Personal history of nicotine dependence
CPT/HCPCS: 71045; 80048; 83605; 85025; 87040; 87428; 93005; 94640; 99285

== ENCOUNTER → 2022-05-15 | Outpatient (CLI) | payer MEDICARE, SELFPAY ==
[2022-05-15] VITALS (7 sets, daily range): BP systolic 109–170; BP diastolic 49–71; PULSE 79–83; RESP 16–18; TEMP 35.9–36.5; O2SAT 98–99
[2022-05-15] MEDS: 0.9 % NaCl (Sterile) Posiflush 10 mL IV (08:10)
[2022-05-15] MEDS: 0.9% NaCl VAD Flush IV (12:26)
== END | disposition home or self-care (01) ==
LOC: MEDOUTP 07:55
PROVIDERS: PCP Internal Medicine; Referring Provider Internal Medicine Hematology & Oncology; Visit Provider Internal Medicine Hematology & Oncology
DX: Z51.89 Encounter for other specified aftercare (principal); C79.9 Secondary malignant neoplasm of unspecified site; C34.90 Malignant neoplasm of unspecified part of unspecified bronchus or lung; D63.0 Anemia in neoplastic disease
CPT/HCPCS: 36430; 86850; 86900; 86901; 86920; 86922; J7040; P9016; A4216

== ENCOUNTER 2022-05-23 09:24 | Inpatient (IN) | payer MEDICARE, SELFPAY ==
[2022-05-23] VITALS (11 sets, daily range): BP systolic 134–152; BP diastolic 51–63; PULSE 84–100; RESP 14–31; TEMP 37.2; O2SAT 90–100; BMI 52.4; BMI 51.3
--- NOTE | 2022-05-23 10:17 | RAD_ITS ---
HISTORY: Neutropenic fever. TECHNIQUE: XR Chest 2 Views. COMPARISON: Prior day. FINDINGS: LINES/TUBES: Right chest wall port again seen with surgical clips in the right chest. CARDIOMEDIASTINAL BORDERS: Stable. LUNGS/PLEURA: Right upper lobe pleural parenchymal opacity again noted. Persistent right basilar opacity. Unchanged patchy opacities in the left mid and lower lung. Limited evaluation due to overlying pannus. RAD/Chest PA and Lateral IMPRESSION: No significant interval change. Electronically Signed: Merly Braun MD at 11:56 EST ,
[2022-05-23 10:32] LABS: Mean Corp Hgb Conc 32.1 g/dL (32-36); Mean Corpuscular Hgb 26.2 pg (27.0-32.0); Mean Corpuscular Volume 81.6 fL (81-99); Mean Platelet Vol. 9.2 fl (6.2-12.0); POSITIVE COUNT YES; POSITIVE DIFFERENTIAL YES; POSITIVE MORPHOLOGY YES; Platelet Count 384 K/mm3 (150-450); RBC Distribution Width CV 17.1 % (11.6-14.6); RBC Distribution Width SD 50.3 fl (35.1-43.9); Red Blood Count 3.43 M/mm3 (4.2-5.4); White Blood Count 4.8 K/mm3 (4.4-11.0)
--- NOTE | 2022-05-23 10:34 | CT_ITS ---
HISTORY: pain. TECHNIQUE: Helically acquired images were obtained of the chest without contrast. A radiation dose optimization technique was used for this scan. 1065 images. COMPARISON: XR same day, CTA 03/18/2022. FINDINGS: LARGE AIRWAYS: Opacification of the right upper lobe bronchus. LUNGS: Decreased confluent and nodular opacities in the left upper lobe with new focus of consolidation laterally. 10 mm left lower lobe lobulated nodule, previously 7-8 mm. Mildly decreased masslike consolidation and collapse of the right upper lobe with improved aeration anteriorly and air bronchograms with mild bronchiectasis. Masslike consolidation again extends to the superior segment of the right lower lobe. Multiple nodular tree-in-bud and spiculated opacities throughout the right lung measuring up to 12 mm.] Bronchiectasis in the right lower lobe again noted. PLEURA: No pneumothorax or significant pleural effusion. HEART/PERICARDIUM: Heart within normal limits in size. Multivessel coronary artery calcification. No pericardial effusion. VESSELS: Thoracic aorta nondilated. Right chest wall port with catheter tip in the distal superior vena cava. MEDIASTINUM/DUY: Mildly enlarged superior mediastinal lymph node again noted. Right thyroid nodule again noted. UPPER ABDOMEN: Mild hiatal hernia. Nodular cirrhotic appearance of the liver. BONES: Degenerative change. Right mastectomy. CT/Chest without Contrast IMPRESSION: Mildly decreased size of masses or consolidation in the right upper lobe, superior segment of the right lower lobe, and left upper lobe. New spiculated nodular opacities scattered in the right lung and new patchy opacity in the left upper lobe, which may represent new regions of pneumonia or metastasis. Increased size of left lower lobe pulmonary nodule concerning for progression of metastasis. Electronically Signed: Merly Braun MD at 12:12 EST ,
--- NOTE | 2022-05-23 10:34 | CT_ITS ---
HISTORY: head injury. TECHNIQUE: Multiple axial images were obtained of the head without intravenous contrast. A radiation dose optimization technique was used for this scan. 254 images. COMPARISON: 03/28/2021. FINDINGS: BRAIN PARENCHYMA: Multiple foci and zones of low attenuation in the bilateral cerebral white matter compatible with chronic small vessel ischemic gliosis. No acute intra-axial hemorrhage identified. CSF SPACES: Generalized volume loss. No midline shift or other significant mass effect. No acute extra-axial hemorrhage seen. OTHER: Intact calvarium. Severe opacification of the bilateral maxillary sinuses with hyperdense material and hyperostosis of the sinus gaona. Trace fluid in the left mastoid air cells. Bilateral lens resections. CT/Brain/Head without Contrast IMPRESSION: No acute intracranial process identified. Chronic involutional and white matter changes. Severe chronic maxillary sinusitis. Electronically Signed: Merly Braun MD at 12:15 EST ,
--- NOTE | 2022-05-23 10:37 | CT_ITS ---
HISTORY: falls. TECHNIQUE: Helically acquired images were obtained of the cervical spine without contrast. 2D reformatted images were reviewed. A radiation dose optimization technique was used for this scan. 438 images. COMPARISON: None. FINDINGS: VERTEBRAE: No acute fracture identified. Unfused posterior arch of C1. ALIGNMENT: Straightening of the cervical lordosis without significant anterior or posterior subluxation. INTERVERTEBRAL DISCS: Degenerative endplate changes at multiple levels. Posterior disc bulge osteophyte complexes at multiple levels with severe spinal canal stenosis at C5-6. Foraminal narrowing multiple levels. SOFT TISSUES: Right chest wall port with pleural parenchymal right apical opacity. Right thyroid nodule. CT/Spine Cervical without Contras IMPRESSION: No evidence of acute cervical spinal fracture or dislocation. Multilevel degenerative change. Electronically Signed: Merly Braun MD at 12:21 EST ,
[2022-05-23 10:38] LABS: International Normalized Ratio 1.4; Prothrombin Time (Protime)PT. 16.7 SECONDS (11.7-14.9)
[2022-05-23 10:39] LABS: Partial Thromboplast Time 36.2 Seconds (24.1-36.2)
--- NOTE | 2022-05-23 10:39 | EDS_ITS ---
HPI HPI - Fall History of Present Illness Chief Complaint: Fall Narrative Narrative: 76-year-old female with history of breast cancer with metastasis to the lower spine presenting with generalized weakness. She states her last chemotherapy was about 2 weeks ago. She sees Dr. Crouch. 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 She finished palliative radiation 04/21/2022. She states she fell this morning and she complains of pain in the upper back. She did hit her head but did not lose consciousness. She is on Eliquis with history of a preferable that she felt lightheaded before she fell. She states it was not vertiginous in nature. She states that for the last 2 to 3 days she has had generalized weakness. She had diarrhea for the first 2 days which resolved. She denies abdominal pain but does admit to nausea and vomiting. Patient was told that when EMS picked her up she had a fever of 101. She had not previously had a fever. She does state that she feels short of breath. She reports a history of recurrent pneumonia. She does not report any chest pain. [facility] Medical History Acute and chronic respiratory failure with hypoxia Acute bronchitis due to Rhinovirus Acute severe exacerbation of asthma Allergic rhinitis Anemia Anxiety Aspiration pneumonitis Asthma Asthmatic bronchitis Atrial fibrillation Atrial fibrillation with RVR BiPAP (biphasic positive airway pressure) dependence Body mass index (BMI) 50-59.9, adult Breast cancer Cancer Chronic diarrhea Chronic respiratory failure with hypoxia Dependence on supplemental oxygen Depression Diabetes Diabetes mellitus, type II Former smoker Former tobacco use GERD (gastroesophageal reflux disease) Heartburn High cholesterol History of primary non-small cell carcinoma of right lung History of right breast cancer History of steroid therapy Hypertension Immunosuppressed due to chemotherapy Leg cramps Loss of hearing Lung cancer Migraine headache Migraines Obstructive sleep apnea On home oxygen therapy Osteoarthritis Pneumonia Restless legs Sleep apnea Uses wheelchair Vitamin D deficiency Walker as ambulation aid Wears glasses Home Medications cholecalciferol (vitamin D3) 1,250 mcg (50,000 unit) capsule 50,000 unit PO SUWE@0800 SUPPLEMENT 06/01/17 [History Last Taken 03/18/22] albuterol sulfate 90 mcg/actuation aerosol inhaler (ProAir HFA) 2 puff inhalation Q6H PRN PRN Dyspnea/Wheezing/Sob 03/25/18 [History Last Taken 3 Days Ago ~03/15/22] fluticasone furoate 200 mcg-vilanterol 25 mcg/dose inhalation powder (Breo Ellipta) 2 inh inhalation DAILY sob 12/09/21 [History Last Taken 3 Days Ago ~03/15/22] insulin regular hum U-500 conc 500 unit/mL(3 mL) subcut pen (Humulin R U-500 (Conc) Insulin Kwikpen) 65 unit subcut DAILY diabetes 12/09/21 [History Last Taken 03/18/22] nadolol 40 mg tablet 40 mg PO DAILY heart 12/09/21 [History Last Taken 03/22/22] paroxetine HCl 40 mg tablet (Paxil) 40 mg PO DAILY mood 12/09/21 [History Last Taken 03/22/22] nystatin 100,000 unit/gram topical powder (Nyamyc) 1 applic topical BID #0 grams 12/30/21 [Rx Last Taken Unknown] guaifenesin 1,200 mg tablet, extended release 12 hr (Mucus Relief ER) 600 mg PO BID 03/03/22 [History Last Taken 03/18/22] potassium chloride 10 mEq tablet,extended release 10 meq PO DAILY 03/03/22 [ History Last Taken 03/18/22] pramipexole 0.5 mg tablet (Mirapex) 0.5 mg PO QPM 03/03/22 [History Last Taken 03/22/22] rosuvastatin 20 mg tablet 20 mg PO DAILY 03/03/22 [History Last Taken 03/22/22] prednisone 10 mg tablet 10 mg PO DAILY 03/18/22 [History Last Taken 03/18/22] apixaban 5 mg tablet (Eliquis) 5 mg PO DAILY Check with primary doctor 03/26/22 [History Last Taken Unknown] amiodarone 100 mg tablet (Pacerone) 100 mg PO BID 04/22/22 [History Last Taken Unknown] furosemide 40 mg tablet 40 mg PO DAILY 04/22/22 [History Last Taken Unknown] ipratropium bromide 0.02 % solution for inhalation 2.5 ml inhalation Q8H PRN shortness of breath or wheezing #75 mL 04/22/22 [Rx Last Taken Unknown] Allergy/AdvReac Type Severity Reaction Status Date / Time adhesive tape Allergy tears skin Verified 03/23/22 07:49 cefadroxil [From Duricef] Allergy Unknown Verified 03/23/22 07:49 gluten Allergy celiac Verified 03/23/22 07:49 disease mesalamine [From Asacol] Allergy Unknown Verified 03/23/22 07:49 omalizumab [From Xolair] Allergy Unknown Verified 03/23/22 07:49 Sulfa (Sulfonamide Allergy swelling Verified 03/23/22 07:49 Antibiotics) as an infant oxycodone AdvReac Vomiting Verified 03/23/22 07:49 Family History Father Cancer Myocardial infarction Mother Cancer Metastatic breast CA Surgical History H/O rectocele repair History of lymph node dissection of right axilla History of mastectomy History of partial hysterectomy Hx of bilateral cataract extraction Hx of carpal tunnel repair Social History household members: spouse Smoking Status: Former smoker how long ago did patient quit smoking: Smoked x 2 years 1/2 ppd, quit ~ 50 years prior. alcohol intake: never substance use type: does not use ROS ROS ED Constitutional Constitutional ED: Reports fever(s); Denies chills Eyes Eyes: Denies change in vision or diplopia ENT ENT ED: Denies rhinorrhea or sore throat Cardiovascular Cardiovascular: Denies chest pain or palpitations Respiratory/Chest Respiratory/Chest: Reports cough and dyspnea Gastrointestinal Gastrointestinal: Reports nausea; Denies abdominal pain or vomiting Genitourinary Genitourinary ED: Denies dysuria or hematuria Musculoskeletal Musculoskeletal: Reports back pain Integumentary Denies abscess Neurologic Neurologic: Reports headache(s); Denies paresthesias or weakness Psychiatric Psychiatric: Denies anxiety or depression EXAM Physical Exam Const Vital Signs: 05/23/22 09:25 05/23/22 09:33 05/23/22 09:38 Temperature 98.9 F 98.9 F Temperature Source Oral Oral Pulse Rate 96 92 Respiratory Rate 25 H 20 H Respiratory Effort Normal Non-Labored Respiratory Pattern Normal Blood Pressure 149/51 H 152/63 H Blood Pressure Mean 83 92 Pulse Ox 100 100 Oxygen Delivery Method Room Air Room Air Oxygen Flow Rate (L/min) 05/23/22 10:19 Temperature Temperature Source Pulse Rate Respiratory Rate Respiratory Effort Respiratory Pattern Blood Pressure Blood Pressure Mean Pulse Ox 100 Oxygen Delivery Method Nasal Cannula Oxygen Flow Rate (L/min) 4 Positive well nourished and obese General Appearance ED: NAD Nutritional Appearance: obese HEENT Reports normocephalic atraumatic Eyes PERRL and EOMs intact bilaterally General Eye ED: Negative for pale conjunctiva or scleral icterus Chest Wall inspection of chest normal and palpation of chest normal Resp normal respiratory effort and no retractions Cardio regular rate and regular rhythm GI non-tender Neuro oriented x3 and CN's II-XII intact bilaterally Sensorium / Orientation: alert Psych mental status grossly normal and thought process normal Skin Lesions: no lesions Rashes: no rashes MDM MDM MDM Narrative Medical decision making narrative: 76-year-old female presenting with generalized weakness and fall. Apparently she was unable to get up off of the floor today. She did hit her head and she is on Eliquis. She does not have any focal neurologic deficits or lateralizing signs or symptoms. She does not have any signs of trauma to the head. Head CT performed today does not show any acute intracranial abnormality. CT of the cervical spine is negative for fracture subluxation I did obtain lab work as the patient is a chemotherapy patient with metastatic breast cancer. CBC shows a white blood cell count of 4.8. Hemoglobin stable at 9.0. Platelets normal at 384. She does have 18 bands, she is lymphopenic. Coagulation studies unremarkable. Renal function and electrolytes unremarkable. Glucose is elevated at 263 without anion gap. LFTs are normal. EKG normal sinus rhythm with a ventricular rate of 91 bpm without sign of ischemic change. Chest x-ray on my interpretation shows no acute cardiopulmonary process and radiology services agrees. Lactic acid normal at 1.2. Urinalysis negative for infection. High-sensitivity troponin is 11. Since the patient is anticoagulated I have low suspicion for PE but I did give obtain a CT of the chest without contrast which shows some areas of improvement but also shows some suspicious areas which could be worsening of her metastasis versus pneumonia. The patient did report that EMS told her she had a fever on the way to the hospital but she has not take anything for fever and she has been afebrile here. The patient is unable to ambulate or get up and walk due to weakness. I will treat her as pneumonia. She was given vancomycin and Zosyn because she is recently been hospitalized. I spoke with the hospitalist for admission. Impression: 1. Generalized weakness 2. Pneumonia 3. History of non-small cell carcinoma 4. Fall 5. Closed head injury Lab Data Attestation: I reviewed the patient's lab results. Labs: Laboratory Results - last 24 hr 05/23/22 05/23/22 05/23/22 10:10 10:10 10:10 WBC 4.8 RBC 3.43 L Hgb 9.0 L Hct 28.0 L MCV 81.6 MCH 26.2 L MCHC 32.1 RDW Std Deviation 50.3 H RDW Coeff of Aniceto 17.1 H Plt Count 384 MPV 9.2 Neut % (Auto) Not Reportable Absolute Neuts (auto) 2.8 Absolute Lymphs (auto) 0.86 Total Counted 100 Neutrophils % (Manual) 41 L Band Neutrophils % 18 H Lymphocytes % (Manual) 18 L Monocytes % (Manual) 13 H Eosinophils % (Manual) 2 Metamyelocytes % 1 Myelocytes % 7 H Diff Path Review May foll Platelet Estimate ADEQUATE RBC Morphology NORM C+C PT 16.7 H INR 1.4 APTT 36.2 Sodium 132 L Potassium 4.2 Chloride 94 L Carbon Dioxide 31.0 Anion Gap 7 BUN 16 Creatinine 0.99 Estim Creat Clear Calc 40.62 Est GFR (MDRD) Af Amer 70 Est GFR (MDRD) Non-Af 58 L BUN/Creatinine Ratio 16.2 Glucose 263 H Lactic Acid Calcium 9.0 Total Bilirubin 0.80 AST 10 L ALT 26 Alkaline Phosphatase 109 Troponin I High Sens Total Protein 6.8 Albumin 2.2 L Globulin 4.6 H Albumin/Globulin Ratio 0.5 L Urine Color Urine Clarity Urine pH Ur Specific [place] Urine Protein Urine Glucose (UA) Urine Ketones Urine Occult Blood Urine Nitrite Urine Bilirubin Urine Urobilinogen Ur Leukocyte Esterase Urine RBC Urine WBC Ur Squamous Epith Cells Amorphous Sediment Urine Bacteria Urine Mucus 05/23/22 05/23/22 05/23/22 10:10 10:10 12:25 WBC RBC Hgb Hct MCV MCH MCHC RDW Std Deviation RDW Coeff of Aniceto Plt Count MPV Neut % (Auto) Absolute Neuts (auto) Absolute Lymphs (auto) Total Counted Neutrophils % (Manual) Band Neutrophils % Lymphocytes % (Manual) Monocytes % (Manual) Eosinophils % (Manual) Metamyelocytes % Myelocytes % Diff Path Review Platelet Estimate RBC Morphology PT INR APTT Sodium Potassium Chloride Carbon Dioxide Anion Gap BUN Creatinine Estim Creat Clear Calc Est GFR (MDRD) Af Amer Est GFR (MDRD) Non-Af BUN/Creatinine Ratio Glucose Lactic Acid 1.2 Calcium Total Bilirubin AST ALT Alkaline Phosphatase Troponin I High Sens 11 Total Protein Albumin Globulin Albumin/Globulin Ratio Urine Color Yellow Urine Clarity Sl. Cloudy Urine pH 5.0 Ur Specific [place] 1.020 Urine Protein 15 H Urine Glucose (UA) Normal Urine Ketones 5 H Urine Occult Blood Negative Urine Nitrite Negative Urine Bilirubin 1 H Urine Urobilinogen 4 H Ur Leukocyte Esterase 25 H Urine RBC 0 SEEN Urine WBC 0-5 SEEN Ur Squamous Epith Cells 0 SEEN Amorphous Sediment 2+ Urine Bacteria 0 SEEN Urine Mucus 1+ Radiography Diagnostic Testing: Clinical Impression(s) from Imaging Studies Chest X-Ray 05/23/22 10:17 IMPRESSION: No significant interval change. Electronically Signed: Merly Braun MD at 11:56 EST Reading Location ID and State: [facility] / [place] Tel , Service support , Brain CT 05/23/22 10:34 IMPRESSION: No acute intracranial process identified. Chronic involutional and white matter changes. Severe chronic maxillary sinusitis. Electronically Signed: Merly Braun MD at 12:15 EST Reading Location ID and State: [facility] / [place] Tel , Service support , Chest CT 05/23/22 10:34 IMPRESSION: Mildly decreased size of masses or consolidation in the right upper lobe, superior segment of the right lower lobe, and left upper lobe. New spiculated nodular opacities scattered in the right lung and new patchy opacity in the left upper lobe, which may represent new regions of pneumonia or metastasis. Increased size of left lower lobe pulmonary nodule concerning for progression of metastasis. Electronically Signed: Merly Braun MD at 12:12 EST Reading Location ID and State: [facility] / [place] Tel , Service support , Cervical Spine CT 05/23/22 10:37 IMPRESSION: No evidence of acute cervical spinal fracture or dislocation. Multilevel degenerative change. Electronically Signed: Merly Braun MD at 12:21 EST , Discharge Plan Triage Chief Complaint: Fall ED Provider: Enio Leiva Dx/Rx/DC Orders Primary Care Provider: Senait Jay
[2022-05-23 10:44] LABS: Differential Indicated MANUAL DIFF
--- NOTE | 2022-05-23 10:46 | EKG12_ITS ---
Test Reason : FALL Blood Pressure : / mmHG Vent. Rate : 091 BPM Atrial Rate : 091 BPM P-R Int : 176 ms QRS Dur : 076 ms QT Int : 368 ms P-R-T Axes : 037 025 078 degrees QTc Int : 452 ms Normal sinus rhythm Normal ECG Confirmed by JACLYN RIVERA, KATIE ([id number]), medical transcription editor CAROL VARGAS ([id number]) on 05/25/2022 12:44:33 PM Referred By: [email or web address] Confirmed By:KATIE ANAYA MD
[2022-05-23 10:47] LABS: ALB/GLOB Ratio 0.5 RATIO (0.9-2.4); AST(SGOT) 10 U/L (15-37); Alanine Aminotransfer ALT/SGPT 26 U/L (13-56); Albumin, Serum 2.2 g/dL (3.2-5.0); Alkaline Phosphatase 109 U/L (45-117); Anion Gap 7 (5-15); BUN 16 mg/dL (7-18); BUN/Creat Ratio 16.2 RATIO (10-20); Chloride 94 mmol/L (98-107); Creatinine, Serum 0.99 mg/dL (0.55-1.02); EST Glomerular Filtration Rate 58 mL/min (>60); Est Glom Filt Rate - Afr Amer 70 mL/min (>60); Estimated Creatinine Clearance 40.62 ml/min; Globulin 4.6 g/dL (2.2-4.2); Glucose 263 mg/dL (74-106); Potassium 4.2 mmol/L (3.5-5.1); Protein, Total 6.8 g/dL (6.4-8.2); Sodium Level 132 mmol/L (136-145)
[2022-05-23] MEDS: Morphine 4 MG/ML Syringe IV (10:47)
[2022-05-23] MEDS: Ondansetron 4 MG/2 ML Vial IV (10:47)
[2022-05-23] MEDS: 0.9% Normal Saline 1,000 ML 50 ML IV (10:48)
[2022-05-23 10:51] LABS: Lactic Acid 1.2 mmol/L (0.4-1.9)
[2022-05-23 11:21] LABS: Troponin-I HS 11 pg/mL (3.0-54.0)
[2022-05-23 11:40] LABS: Eosinophil 2 % (0-5); Lymphocyte 18 % (19-41); Metamyelocyte 1 % (0-1); Monocyte 13 % (0-10); Myelocyte 7 % (0-0); Neutrophil-Band 18 % (0-5); Neutrophil-Segmented 41 % (47-70); Platelet Estimate ADEQUATE (ADEQ); Red Cell Morphology NORM C+C NORMAL (NORM C&C); Total Cells Counted 100 (MANUAL DIFF)
[2022-05-23 11:42] LABS: Absolute Lymphocyte Count 0.86 X10^3/uL (0.83-4.51); Absolute Neutrophil Count 2.8 X10^3/uL (2.0-7.7)
[2022-05-23 12:37] LABS: Bacteria 0 SEEN /hpf (None Seen); Red Blood Cells-Urine 0 SEEN /hpf (0-5); Squamous Epithelial Cells - UA 0 SEEN /hpf (5-10)
[2022-05-23 12:55] LABS: Color, Urine Yellow (Yellow); Glucose, Dipstick Normal (Normal); Ketone-Dipstick 5 mg/dl (Negative); Leukocyte Esterase-Dipstick 25 /ul (Negative); Nitrite-Dipstick Negative (Negative); Occult Blood-Urine Negative /ul (Negative); Protein-Dipstick 15 mg/dl (Negative); Urine Bilirubin Dipstick 1 mg/dL (Negative); Urine Clarity Sl. Cloudy (Clear); Urine Urobilinogen 4 mg/dl (Normal)
[2022-05-23 13:16] LABS: Amorphous Sediment 2+; Mucous, Urine 1+ /hpf (<or=2+); White Blood Cells 0-5 SEEN /hpf (0-5)
--- NOTE | 2022-05-23 13:44 | HP.PCM.HOS_ITS ---
HPI - General General Date of Admission: 05/23/22 Date of Service: 05/23/22 Chief Complaint: Shortness of breath, increased cough for 10 days generalized weakness, loss of appetite and weakness for 2 weeks HPI Narrative ALESSANDRO GUARDADO, is a 76 F with history of CA breast on chemotherapy last was 2 weeks ago was brought to ED by squad for increased weakness, loss appetite, inadequate oral intake for 2 weeks. She developed increased shortness of breath with cough for last 10 days. She has mild cough for about 1 year but it got worse. No significant sputum production. Usually she uses 4 L of oxygen and BiPAP at night. She also has dark yellow small amount of urine output in ED. Denies nausea or vomiting. She had diarrhea to 3 days ago but has gotten better/improved. Denies abdominal pain. Generalized weakness, not able to ambulate. EMS vitals BP 80/60, respiratory rate 20, heart rate 100, glucose 316. EMS found on the bathroom, after she fell down. No LOC. She felt dizzy but not vertigo. She missed a step exiting the bathroom and hit her head but denied any major injury or neck pain. Temperature was 101.[address] She follows Dr[address] 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 She had Perative radiation on 04/21/2022. She has history of multiple recurrent admission last 1 in 03/26/2022 when she was admitted for migrated Mediport conduit and had concurrent pneumonia. CTA at that time showed diffuse RUL consolidation, right pleural effusion and patchy irregular left lung opacity. Patient was treated with IV cefepime for 10 days as per ID recommendation [facility] Medical History Acute and chronic respiratory failure with hypoxia Acute bronchitis due to Rhinovirus Acute severe exacerbation of asthma Allergic rhinitis Anemia Anxiety Aspiration pneumonitis Asthma Asthmatic bronchitis Atrial fibrillation Atrial fibrillation with RVR BiPAP (biphasic positive airway pressure) dependence Body mass index (BMI) 50-59.9, adult Breast cancer Cancer Chronic diarrhea Chronic respiratory failure with hypoxia Dependence on supplemental oxygen Depression Diabetes Diabetes mellitus, type II Former smoker Former tobacco use GERD (gastroesophageal reflux disease) Heartburn High cholesterol History of primary non-small cell carcinoma of right lung History of right breast cancer History of steroid therapy Hypertension Immunosuppressed due to chemotherapy Leg cramps Loss of hearing Lung cancer Migraine headache Migraines Obstructive sleep apnea On home oxygen therapy Osteoarthritis Pneumonia Restless legs Sleep apnea Uses wheelchair Vitamin D deficiency Walker as ambulation aid Wears glasses Home Medications cholecalciferol (vitamin D3) 1,250 mcg (50,000 unit) capsule 50,000 unit PO SUWE@0800 SUPPLEMENT 06/01/17 [History Last Taken 03/18/22] albuterol sulfate 90 mcg/actuation aerosol inhaler (ProAir HFA) 2 puff inhalation Q6H PRN PRN Dyspnea/Wheezing/Sob 03/25/18 [History Last Taken 3 Days Ago ~03/15/22] fluticasone furoate 200 mcg-vilanterol 25 mcg/dose inhalation powder (Breo Ellipta) 2 inh inhalation DAILY sob 12/09/21 [History Last Taken 3 Days Ago ~03/15/22] insulin regular hum U-500 conc 500 unit/mL(3 mL) subcut pen (Humulin R U-500 (Conc) Insulin Kwikpen) 65 unit subcut DAILY diabetes 12/09/21 [History Last Ta maurice 03/18/22] nadolol 40 mg tablet 40 mg PO DAILY heart 12/09/21 [History Last Taken 03/22/22] paroxetine HCl 40 mg tablet (Paxil) 40 mg PO DAILY mood 12/09/21 [History Last Taken 03/22/22] nystatin 100,000 unit/gram topical powder (Nyamyc) 1 applic topical BID #0 grams 12/30/21 [Rx Last Taken Unknown] guaifenesin 1,200 mg tablet, extended release 12 hr (Mucus Relief ER) 600 mg PO BID 03/03/22 [History Last Taken 03/18/22] potassium chloride 10 mEq tablet,extended release 10 meq PO DAILY 03/03/22 [History Last Taken 03/18/22] pramipexole 0.5 mg tablet (Mirapex) 0.5 mg PO QPM 03/03/22 [History Last Taken 03/22/22] rosuvastatin 20 mg tablet 20 mg PO DAILY 03/03/22 [History Last Taken 03/22/22] prednisone 10 mg tablet 10 mg PO DAILY 03/18/22 [History Last Taken 03/18/22] apixaban 5 mg tablet (Eliquis) 5 mg PO DAILY Check with primary doctor 03/26/22 [History Last Taken Unknown] amiodarone 100 mg tablet (Pacerone) 100 mg PO BID 04/22/22 [History Last Taken Unknown] furosemide 40 mg tablet 40 mg PO DAILY 04/22/22 [History Last Taken Unknown] ipratropium bromide 0.02 % solution for inhalation 2.5 ml inhalation Q8H PRN shortness of breath or wheezing #75 mL 04/22/22 [Rx Last Taken Unknown] Allergy/AdvReac Type Severity Reaction Status Date / Time adhesive tape Allergy tears skin Verified 03/23/22 07:49 cefadroxil [From Duricef] Allergy Unknown Verified 03/23/22 07:49 gluten Allergy celiac Verified 03/23/22 07:49 disease mesalamine [From Asacol] Allergy Unknown Verified 03/23/22 07:49 omalizumab [From Xolair] Allergy Unknown Verified 03/23/22 07:49 Sulfa (Sulfonamide Allergy swelling Verified 03/23/22 07:49 Antibiotics) as an infant oxycodone AdvReac Vomiting Verified 03/23/22 07:49 Family History Father Cancer Myocardial infarction Mother Cancer Metastatic breast CA Surgical History H/O rectocele repair History of lymph node dissection of right axilla History of mastectomy History of partial hysterectomy Hx of bilateral cataract extraction Hx of carpal tunnel repair Social History household members: spouse Smoking Status: Former smoker how long ago did patient quit smoking: Smoked x 2 years 1/2 ppd, quit ~ 50 years prior. alcohol intake: never substance use type: does not use ROS ROS Narrative Constitutional: Reports fatigue and weakness. Fever HEENT: Reports systems reviewed and no addt'l complaints, except as documented Respiratory/Chest: Denies chest pain/pressure. Short of breath. Rest as described in HPI Gastrointestinal: As described in HPI. Denies GI bleed Genitourinary: Decreased urine output. Denies burning urination or new urinary tract symptoms Musculoskeletal: Bilateral lower extremity weakness, fall. Reports joint pain and limited range of motion Neurologic: Denies seizure-like activity skin: No ulcer. No rash Endocrinology: Diabetes mellitus type 2 reports systems reviewed and no addt'l complaints, except as documented Hematologic/Lymphatic: Lung cancer. On chemotherapy. Reports systems reviewed and no addt'l complaints, except as documented Rest 14 ROS are negative except as mentioned in HPI Vital Signs Vital Signs Vital Signs: 05/23/22 09:25 05/23/22 09:33 05/23/22 09:38 Temperature 98.9 F 98.9 F Temperature Source Oral Oral Pulse Rate 96 92 Respiratory Rate 25 H 20 H Respiratory Effort Normal Non-Labored Respiratory Pattern Normal Blood Pressure 149/51 H 152/63 H Blood Pressure Mean 83 92 Pulse Ox 100 100 Oxygen Delivery Method Room Air Room Air Oxygen Flow Rate (L/min) 05/23/22 10:19 Temperature Temperature Source Pulse Rate Respiratory Rate Respiratory Effort Respiratory Pattern Blood Pressure Blood Pressure Mean Pulse Ox 100 Oxygen Delivery Method Nasal Cannula Oxygen Flow Rate (L/min) 4 Weight Weight: 295 lb 13.765 oz Body Mass Index (BMI) 52.4 Physical Exam Narrative Physical exam General: Alert, Oriented x3, Cooperative, morbid obesity 52.4 kg/m?. Fatigue HEENT: Atraumatic, PERRLA, EOMI, Normocephalic Oral: Oral mucosa dry. Deep oropharyngeal could not visualized. Neck: Supple, No JVD, Negative Carotid Bruits Lungs: Air entry diminished in bilateral lung bases. Bilateral expiratory rh onchi and wheezing present. On oxygen Cardiovascular: Regular rate, Regular Rhythm, Normal S1, Normal S2, systolic murmur present LLSB Abdomen: Bowel Sounds Present, Soft, Non Tender, Non-Distended : No renal angle tenderness. No suprapubic tenderness. Extremities: Bilateral 1+ pitting edema, Capillary Refill Less than 3 Seconds Skin: No rashes, No breakdown Musculoskeletal: ROM restricted at hip and knee joints. Muscle strength 4/5 at hip knee and ankle joints. Neurological: Cranial nerves II-XII grossly intact, DTR 2+/4. No acute focal deficit Psych/Mental Status: Flat affect. Results Lab / Micro Data Result Diagrams: 05/23/22 10:10 05/23/22 10:10 Labs: Laboratory Results - last 24 hr 05/23/22 10:10: WBC 4.8, RBC 3.43 L, Hgb 9.0 L, Hct 28.0 L, MCV 81.6, MCH 26.2 L , MCHC 32.1, RDW Std Deviation 50.3 H, RDW Coeff of Aniceto 17.1 H, Plt Count 384, M PV 9.2, Neut % (Auto) Not Reportable, Absolute Neuts (auto) 2.8, Absolute Lymphs (auto) 0.86, Total Counted 100, Neutrophils % (Manual) 41 L, Band Neutrophils % 18 H, Lymphocytes % (Manual) 18 L, Monocytes % (Manual) 13 H, Eosinophils % (Manual) 2, Metamyelocytes % 1, Myelocytes % 7 H, Diff Path Review October, Platelet Estimate ADEQUATE, RBC Morphology NORM C+C 05/23/22 10:10: PT 16.7 H, INR 1.4, APTT 36.2 05/23/22 10:10: Sodium 132 L, Potassium 4.2, Chloride 94 L, Carbon Dioxide 31.0, Anion Gap 7, BUN 16, Creatinine 0.99, Estim Creat Clear Calc 40.62, Est GFR ( MDRD) Af Amer 70, Est GFR (MDRD) Non-Af 58 L, BUN/Creatinine Ratio 16.2, Glucose 263 H, Calcium 9.0, Total Bilirubin 0.80, AST 10 L, ALT 26, Alkaline Phosphatase 109, Total Protein 6.8, Albumin 2.2 L, Globulin 4.6 H, Albumin/Globulin Ratio 0.5 L 05/23/22 10:10: Lactic Acid 1.2 05/23/22 10:10: Troponin I High Sens 11 05/23/22 12:25: Urine Color Yellow, Urine Clarity Sl. Cloudy, Urine pH 5.0, Ur Specific [place] 1.020, Urine Protein 15 H, Urine Glucose (UA) Normal, Urine Ketones 5 H, Urine Occult Blood Negative, Urine Nitrite Negative, Urine Bilirubin 1 H, Urine Urobilinogen 4 H, Ur Leukocyte Esterase 25 H, Urine RBC 0 SEEN, Urine WBC 0-5 SEEN, Ur Squamous Epith Cells 0 SEEN, Amorphous Sediment 2+, Urine Bacteria 0 SEEN, Urine Mucus 1+ Micro: Microbiology 05/23/22 10:48 Nasal Secretion SARS-CoV-2 & FLU Antigen (Rapid) - Final Radiology Impression Chest X-Ray 05/23/22 10:17 IMPRESSION: No significant interval change. Electronically Signed: Merly Braun MD at 11:56 EST , Brain CT 05/23/22 10:34 IMPRESSION: No acute intracranial process identified. Chronic involutional and white matter changes. Severe chronic maxillary sinusitis. Electronically Signed: Merly Braun MD at 12:15 EST , Chest CT 05/23/22 10:34 IMPRESSION: Mildly decreased size of masses or consolidation in the right upper lobe, superior segment of the right lower lobe, and left upper lobe. New spiculated nodular opacities scattered in the right lung and new patchy opacity in the left upper lobe, which may represent new regions of pneumonia or metastasis. Increased size of left lower lobe pulmonary nodule concerning for progression of metastasis. Electronically Signed: Merly Braun MD at 12:12 EST , Cervical Spine CT 05/23/22 10:37 IMPRESSION: No evidence of acute cervical spinal fracture or dislocation. Multilevel degenerative change. Electronically Signed: Merly Braun MD at 12:21 EST , Assessment & Plan Assessment/Plan (1) Pneumonia: PLAN: Plan This is 76-year-old female was admitted for shortness of breath, increased cough fatigue, weakness, nausea vomiting after chemotherapy 2 weeks ago. 1. Complicated multifocal multilobular pneumonia: CT chest was done in ED and compared with the previous CT chest of March 2022. It shows mild decrease of mass/consolidation in the right upper lobe, superior segment of right lower lobe and left upper lobe although to me it looks not significant decrease. He also suspicion of increased progression of metastasis with increase in the size of left lower lobe pulmonary nodule. New patchy opacity left upper lobe concerning for pneumonia/metastasis. Patient is being admitted on MedSurg floor. Started on IV antibiotics vancomycin and Zosyn. Patient does not have true allergy with cefadroxil as she had multiple times cefazolin and Zosyn and cefepime. Pneumonia work-up ordered. Continue bronchodilator every 6 hourly, incentive spirometry, Pep. 2. Chemotherapeutic adverse effect including loss of appetite, nausea, vomiting and diarrhea: Diarrhea has improved. Needs to be aggressive rehydration. Urine output was dark and yellow in ED. 3. Chronic hypoxic and hypercarbic respiratory failure probably due to obesity hypoventilation syndrome complicated with pneumonia and lung cancer: Patient on 4 L of oxygen at at home 28/12 and he wears BiPAP at night. 4. Stage III NSCLC: Patient currently undergoing chemotherapy. Patient had radiotherapy. She follows Dr. Dan. 5. Paroxysmal A. fib on amiodarone, nadolol and Eliquis: Continued. 6. Fall, generalized weakness failure to thrive: CT head and CT C-spine was done which did not show any acute abnormality. 7. Hypertension: On nadolol. 8. Diabetes mellitus type II: Accu-Cheks and cover with Humalog sliding scale. Patient on scheduled insulin as per home dose and will titrate as per Accu-Cheks 9. Anxiety and depression: Patient has ADHD. On methylphenidate and Paxil. 10. DORY/OSH on BiPAP at night 11. VTE prophylaxis on Eliquis Microbiology Past 72 Hours 05/23/22 10:48 Nasal Secretion SARS-CoV-2 & FLU Antigen (Rapid) - Final Laboratory Results 05/23/22 10:10: WBC 4.8, RBC 3.43 L, Hgb 9.0 L, Hct 28.0 L, MCV 81.6, MCH 26.2 L , MCHC 32.1, RDW Std Deviation 50.3 H, RDW Coeff of Aniceto 17.1 H, Plt Count 384, MPV 9.2, Neut % (Auto) Not Reportable, Absolute Neuts (auto) 2.8, Absolute Lymphs (auto) 0.86, Total Counted 100, Neutrophils % (Manual) 41 L, Band Ne utrophils % 18 H, Lymphocytes % (Manual) 18 L, Monocytes % (Manual) 13 H, Eosinophils % (Manual) 2, Metamyelocytes % 1, Myelocytes % 7 H, Diff Path Review May , Platelet Estimate ADEQUATE, RBC Morphology NORM C+C 05/23/22 10:10: PT 16.7 H, INR 1.4, APTT 36.2 05/23/22 10:10: Sodium 132 L, Potassium 4.2, Chloride 94 L, Carbon Dioxide 31.0, Anion Gap 7, BUN 16, Creatinine 0.99, Estim Creat Clear Calc 40.62, Est GFR (MDRD) Af Amer 70, Est GFR (MDRD) Non-Af 58 L, BUN/Creatinine Ratio 16.2, Glucos e 263 H, Calcium 9.0, Total Bilirubin 0.80, AST 10 L, ALT 26, Alkaline Phosphatase 109, Total Protein 6.8, Albumin 2.2 L, Globulin 4.6 H, Albumin/Globulin Ratio 0.5 L 05/23/22 10:10: Lactic Acid 1.2 05/23/22 10:10: Troponin I High Sens 11 05/23/22 12:25: Urine Color Yellow, Urine Clarity Sl. Cloudy, Urine pH 5.0, Ur Specific [place] 1.020, Urine Protein 15 H, Urine Glucose (UA) Normal, Urine Ketones 5 H, Urine Occult Blood Negative, Urine Nitrite Negative, Urine Bilirubi n 1 H, Urine Urobilinogen 4 H, Ur Leukocyte Esterase 25 H, Urine RBC 0 SEEN, Urine WBC 0-5 SEEN, Ur Squamous Epith Cells 0 SEEN, Amorphous Sediment 2+, Urine Bacteria 0 SEEN, Urine Mucus 1+ Living will/advanced directive/end of life care: Patient does have living will or advanced directive. After discussion of benefits/risks procedures involved with full code, DNR CC arrest and DNR CC, the patient very well knows that she is DNR CC arrest. Patient does want artificial life support including intubation, tube feed, ventilator and/chest compression, central venous catheter, vasopressor and DC shock if needed but she is okay with BiPAP or CPAP Total time spent in [id number] encounter in discussion of advanced directive 16 minutes. Clinical Impression(s) from Imaging Studies Chest X-Ray 05/23/22 10:17 IMPRESSION: No significant interval change. Brain CT 05/23/22 10:34 IMPRESSION: No acute intracranial process identified. Chronic involutional and white matter changes. Severe chronic maxillary sinusitis. Chest CT 05/23/22 10:34 IMPRESSION: Mildly decreased size of masses or consolidation in the right upper lobe, superior segment of the right lower lobe, and left upper lobe. New spiculated nodular opacities scattered in the right lung and new patchy opacity in the left upper lobe, which may represent new regions of pneumonia or metastasis. Increased size of left lower lobe pulmonary nodule concerning for progression of metastasis. Cervical Spine CT 05/23/22 10:37 IMPRESSION: No evidence of acute cervical spinal fracture or dislocation. Multilevel degenerative change. Charges/Coding Visit Charges Inpatient E&M: 63487 Disch Hosp Procedures Hospitalists Procedures: 79607 Advncd Care Plan 30 Min
[2022-05-23 15:40] LABS: Phosphorus 3.5 mg/dL (2.5-4.9)
[2022-05-23] MEDS: Ipratropium/Albuterol Sulfate 3 ML AMPUL.NEB INHALATION ×2 (15:42→19:28)
[2022-05-23] MEDS: Insulin Lispro 100 UNIT/ML INSULN.PEN SC ×2 (17:23→21:15)
[2022-05-23] MEDS: Amiodarone 200 MG Tablet 100 MG PO (17:25)
--- NOTE | 2022-05-23 17:25 | PCM.RX.CS ---
Consult Pharmacy has been consulted to manage selected antiobiotic: Vancomycin Type of Consult: New start Suspected Infection: Pneumonia Prior Doses of Antibiotics Received/Current Regimen: VANC 2000MG ordered in E.R. and given at 17:14 Labs: Sodium 132 mmol/L (136-145) L 05/23/22 10:10 Potassium 4.2 mmol/L (3.5-5.1) 05/23/22 10:10 Chloride 94 mmol/L (98-107) L 05/23/22 10:10 Carbon Dioxide 31.0 mmol/L (21.0-32.0) 05/23/22 10:10 Anion Gap 7 (5-15) 05/23/22 10:10 BUN 16 mg/dL (7-18) 05/23/22 10:10 Creatinine 0.99 mg/dL (0.55-1.02) 05/23/22 10:10 Est GFR (MDRD) Af Amer 70 mL/min (>60) 05/23/22 10:10 Est GFR (MDRD) Non-Af 58 mL/min (>60) L 05/23/22 10:10 BUN/Creatinine Ratio 16.2 RATIO (10-20) 05/23/22 10:10 Glucose 263 mg/dL (74-106) H 05/23/22 10:10 Microbiology: Microbiology 05/23/22 12:25 Urine Catheter - Catheter Legionella Antigen - Final 05/23/22 12:25 Urine Catheter - Catheter Streptococcus pneumoniae Antigen (M - Final 05/23/22 10:48 Nasal Secretion SARS-CoV-2 & FLU Antigen (Rapid) - Final Weight used for dosin.5 kg Estimated Creatinine Clearance: 65ml/min Goal Trough: 15-20 mcg/mL Pharmacy Plan for Drug Dosing: Starting 12 hours after the E.R. dose, continue with 1500mg IV q12h per [facility] dosing protocol. Will order a trough before the 4th total dose. The patient's CrCl of 65ml/min was calculated using an adjusted body weight. Pharmacy Service will continue to monitor and adjust dosing as required. Follow-Up Labs: Trough Vancomycin Labs to be done on [date and time ordered]: 05/25/22 04:30
[2022-05-23 17:46] LABS: Bedside Glucose 175 mg/dL (74-106)
[2022-05-23] MEDS: KCL 20MEQ in 0.9% NS 20 MEQ/1,000 ML IV.SOLN. 100 MEQ IV (17:47)
[2022-05-23 18:58] LABS: M R Staph aureus DNA By PCR Negative (Negative); Probe Check PASS; Specimen Processing Control PASS
[2022-05-23] MEDS: Acetaminophen 325 MG Tablet 650 MG PO (20:55)
[2022-05-23] MEDS: Pramipexole Di-HCl 0.5 MG Tablet PO (20:55)
[2022-05-23] MEDS: Atorvastatin Calcium 40 MG Tablet PO (20:55)
[2022-05-23] MEDS: APIXABAN 5 MG TABLET PO (20:56)
[2022-05-23] MEDS: Nystatin Powder 15gm Bottle 1 APPLIC TOPICAL (21:16)
[2022-05-23 22:25] LABS: Bedside Glucose 203 mg/dL (74-106)
[2022-05-24] VITALS (19 sets, daily range): BP systolic 107–131; BP diastolic 43–84; PULSE 74–98; RESP 14–33; TEMP 36.3–38.5; O2SAT 90–99
[2022-05-24] MEDS: KCL 20MEQ in 0.9% NS 20 MEQ/1,000 ML IV.SOLN. 100 MEQ IV (03:56)
[2022-05-24 06:30] LABS: Hematocrit 27.6 % (37-47); Hemoglobin 8.8 g/dL (12.0-15.0); Mean Corp Hgb Conc 31.9 g/dL (32-36); Mean Corpuscular Hgb 26.3 pg (27.0-32.0); Mean Corpuscular Volume 82.4 fL (81-99); Mean Platelet Vol. 9.2 fl (6.2-12.0); POSITIVE COUNT YES; POSITIVE DIFFERENTIAL YES; POSITIVE MORPHOLOGY YES; Platelet Count 326 K/mm3 (150-450); RBC Distribution Width CV 17.2 % (11.6-14.6); Red Blood Count 3.35 M/mm3 (4.2-5.4); White Blood Count 7.8 K/mm3 (4.4-11.0)
[2022-05-24 06:35] LABS: Differential Indicated MANUAL DIFF
[2022-05-24 06:54] LABS: Anion Gap 4 (5-15); BUN 14 mg/dL (7-18); BUN/Creat Ratio 13.9 RATIO (10-20); Calcium,Total 8.7 mg/dL (8.5-10.1); Chloride 101 mmol/L (98-107); Creatinine, Serum 1.01 mg/dL (0.55-1.02); EST Glomerular Filtration Rate 57 mL/min (>60); Est Glom Filt Rate - Afr Amer 69 mL/min (>60); Estimated Creatinine Clearance 39.81 ml/min; Glucose 194 mg/dL (74-106); Potassium 4.2 mmol/L (3.5-5.1); Sodium Level 134 mmol/L (136-145); Thyroid Stim Hormone (TSH) 0.56 uIU/mL (0.358-3.74)
[2022-05-24 07:01] LABS: Metamyelocyte 2 % (0-1); Myelocyte 8 % (0-0); Neutrophil-Band 28 % (0-5); Neutrophil-Segmented 36 % (47-70); Total Cells Counted 100 (MANUAL DIFF)
[2022-05-24 07:02] LABS: Anisocytosis 1+; Basophil 2 % (0-1); Lymphocyte 7 % (19-41); Monocyte 17 % (0-10); Nucleated Red Bld Cells,Manual 1 % (0-5); Platelet Estimate ADEQUATE (ADEQ)
[2022-05-24 07:03] LABS: Absolute Lymphocyte Count 0.55 X10^3/uL (0.83-4.51); Hypochromasia 1+; Lymphocyte # 0.55 X10^3/ul (0.83-4.51); Microcytosis 1+; Neutrophil # 5.01 X10^3/uL (2.7-7.7); Polychromasia RARE
[2022-05-24] MEDS: Insulin Lispro 100 UNIT/ML INSULN.PEN SC ×4 (07:04→22:12)
[2022-05-24] MEDS: Ipratropium/Albuterol Sulfate 3 ML AMPUL.NEB INHALATION ×4 (07:21→19:45)
[2022-05-24 07:30] LABS: Bedside Glucose 181 mg/dL (74-106)
[2022-05-24] MEDS: Amiodarone 200 MG Tablet 100 MG PO ×2 (08:31→17:04)
[2022-05-24] MEDS: Paroxetine 20 MG Tablet 40 MG PO (10:01)
[2022-05-24] MEDS: Nadolol 40 MG Tablet PO (10:01)
[2022-05-24] MEDS: Nystatin Powder 15gm Bottle 1 APPLIC TOPICAL ×2 (10:01→21:55)
[2022-05-24] MEDS: APIXABAN 5 MG TABLET PO ×2 (10:01→21:56)
[2022-05-24] MEDS: Furosemide 40 MG Tablet PO (10:01)
--- NOTE | 2022-05-24 10:58 | PCM.PN.HOSP ---
Subjective Subjective Follow-up for complicated multifocal multilobar pneumonia. Patient overall shortness of breath is better. Nausea vomiting and chemotherapeutic adverse effects also improved. Objective Data Objective Data Vital Signs: Vital Signs Temp Pulse Resp BP Pulse Ox O2 Del Method O2 Flow Rate 99.0 F 81 18 128/84 H 99 Nasal Cannula 4 05/24/22 09:14 05/24/22 09:14 05/24/22 09:16 05/24/22 09:14 05/24/22 09:16 05/24/22 09:16 05/24/22 09:16 FiO2 30 05/24/22 09:14 Oxygen Flow Rate (L/min) 4 Oxygen Delivery Method Nasal Cannula Weight: 290 lb 5.581 oz Body Mass Index (BMI) 51.3 Intake & Output: Intake and Output for Last 24 Hours 05/22/22 05/23/22 05/24/22 23:59 23:59 23:59 Intake Total 1370 / 1370 1580 / 1580 Output Total 300 / 300 Balance 1370 / 1370 1280 / 1280 Lab / Micro Data Result Diagrams: 05/24/22 05:40 05/24/22 05:40 Labs: Laboratory Results - last 24 hr 05/23/22 10:10: Absolute Neuts (auto) 2.8, Absolute Lymphs (auto) 0.86, Total Counted 100, Neutrophils % (Manual) 41 L, Band Neutrophils % 18 H, Lymphocytes % (Manual) 18 L, Monocytes % (Manual) 13 H, Eosinophils % (Manual) 2, Metamyelocytes % 1, Myelocytes % 7 H, Diff Path Review May foll, Platelet Estimate ADEQUATE, RBC Morphology NORM C+C 05/23/22 10:10: Troponin I High Sens 11 05/23/22 10:10: Phosphorus 3.5, Magnesium 2.0 05/23/22 12:25: Urine Color Yellow, Urine Clarity Sl. Cloudy, Urine pH 5.0, Ur Specific [place] 1.020, Urine Protein 15 H, Urine Glucose (UA) Normal, Urine Ketones 5 H, Urine Occult Blood Negative, Urine Nitrite Negative, Urine Bilirubin 1 H, Urine Urobilinogen 4 H, Ur Leukocyte Esterase 25 H, Urine RBC 0 SEEN, Urine WBC 0-5 SEEN, Ur Squamous Epith Cells 0 SEEN, Amorphous Sediment 2+, Urine Bacteria 0 SEEN, Urine Mucus 1+ 05/23/22 16:22: MRSA (PCR) Negative 05/23/22 17:13: POC Glucose 175 H 05/23/22 21:14: POC Glucose 203 H 05/24/22 05:40: WBC 7.8, RBC 3.35 L, Hgb 8.8 L, Hct 27.6 L, MCV 82.4, MCH 26.3 L, MCHC 31.9 L, RDW Std Deviation 51.0 H, RDW Coeff of Aniceto 17.2 H, Plt Count 326, MPV 9.2, Neut % (Auto) Not Reportable, Absolute Neuts (auto) 5.0, Absolute Lymphs (auto) 0.55 L, Total Counted 100, Neutrophils % (Manual) 36 L, Band Neutrophils % 28 H, Lymphocytes % (Manual) 7 L, Monocytes % (Manual) 17 H, Basophils % (Manual) 2 H, Metamyelocytes % 2 H, Myelocytes % 8 H, Nucleated RBCs/100 WBC 1, Diff Path Review May foll, Platelet Estimate ADEQUATE, Polychromasia RARE, Hypochromasia 1+, Anisocytosis 1+, Microcytosis 1+ 05/24/22 05:40: Sodium 134 L, Potassium 4.2, Chloride 101, Carbon Dioxide 29.0, Anion Gap 4 L, BUN 14, Creatinine 1.01, Estim Creat Clear Calc 39.81, Est GFR (MDRD) Af Amer 69, Est GFR (MDRD) Non-Af 57 L, BUN/Creatinine Ratio 13.9, Glucose 194 H, Calcium 8.7, TSH 0.56 05/24/22 07:04: POC Glucose 181 H Micro: Microbiology 05/23/22 15:30 Mucosa - Nasopharyngeal Respiratory Panel (PCR) - Final 05/23/22 12:25 Urine Catheter - Catheter Legionella Antigen - Final 05/23/22 12:25 Urine Catheter - Catheter Streptococcus pneumoniae Antigen (M - Final 05/23/22 10:48 Nasal Secretion SARS-CoV-2 & FLU Antigen (Rapid) - Final Radiography Diagnostic Testing: Radiology Impression Chest X-Ray 05/23/22 10:17 IMPRESSION: No significant interval change. Electronically Signed: Merly Braun MD at 11:56 EST Reading Location ID and State: [facility] / [place] Tel , Service support , Brain CT 05/23/22 10:34 IMPRESSION: No acute intracranial process identified. Chronic involutional and white matter changes. Severe chronic maxillary sinusitis. Electronically Signed: Merly Braun MD at 12:15 EST , Chest CT 05/23/22 10:34 IMPRESSION: Mildly decreased size of masses or consolidation in the right upper lobe, superior segment of the right lower lobe, and left upper lobe. New spiculated nodular opacities scattered in the right lung and new patchy opacity in the left upper lobe, which may represent new regions of pneumonia or metastasis. Increased size of left lower lobe pulmonary nodule concerning for progression of metastasis. Cervical Spine CT 05/23/22 10:37 IMPRESSION: No evidence of acute cervical spinal fracture or dislocation. Multilevel degenerative change. Electronically Signed: Merly Braun MD at 12:21 EST , Physical Exam Narrative Physical exam General: Alert, Oriented x3, Cooperative, morbid obesity 52.4 kg/m?. HEENT: Atraumatic, PERRLA, EOMI, Normocephalic Oral: Oral mucosa moist. Deep oropharyngeal could not visualized. Neck: Supple, No JVD, Negative Carotid Bruits Lungs: Air entry diminished in bilateral lung bases. Bilateral coarse crepitations, occasionally. On oxygen Cardiovascular: Regular rate, Regular Rhythm, Normal S1, Normal S2, systolic murmur present LLSB Abdomen: Bowel Sounds Present, Soft, Non Tender, Non-Distended : No renal angle tenderness. No suprapubic tenderness. Extremities: Bilateral 1+ pitting edema, Capillary Refill Less than 3 Seconds Skin: No rashes, No breakdown Musculoskeletal: ROM restricted at hip and knee joints. Muscle strength 4/5 at hip knee and ankle joints. Neurological: Cranial nerves II-XII grossly intact, DTR 2+/4. No acute focal deficit Psych/Mental Status: Flat affect. Assessment & Plan Assessment/Plan (1) Pneumonia: PLAN: Plan This is 76-year-old female was admitted for shortness of breath, increased cough fatigue, weakness, nausea vomiting after chemotherapy 2 weeks ago. 1. Complicated multifocal multilobular pneumonia: CT chest was done in ED and compared with the previous CT chest of March 2022. It shows mild decrease of mass/consolidation in the right upper lobe, superior segment of right lower lobe and left upper lobe although to me it looks not significant decrease. He also suspicion of increased progression of metastasis with increase in the size of left lower lobe pulmonary nodule. New patchy opacity left upper lobe concerning for pneumonia/metastasis. [facility] Started on IV antibiotics vancomycin and Zosyn. Patient does not have true allergy with cefadroxil as she had multiple times cefazolin and Zosyn and cefepime. Pneumonia work-up ordered. Continue bronchodilator every 6 hourly, incentive spirometry, Pep. 05/24: Urinary antigens are negative. Respiratory panel negative. No leukocytosis. Bands 28%, neutrophils 36%, lymphocytes 7%, patient has monocytes metamyelocytes and myelocytes with history of left shift. Continue broad-spectrum IV antibiotics vancomycin and Zosyn 2. Chemotherapeutic adverse effect including loss of appetite, nausea, vomiting and diarrhea: Diarrhea has improved. Needs to be aggressive rehydration. Urine output was dark and yellow in ED. Continue IV fluid hydration 3. Chronic hypoxic and hypercarbic respiratory failure probably due to obesity hypoventilation syndrome complicated with pneumonia and lung cancer: Patient on 4 L of oxygen at at home 28/12 and he wears BiPAP at night. 4. Stage III NSCLC: Patient currently undergoing chemotherapy. Patient had radiotherapy. She follows Dr. Crouch. 5. Paroxysmal A. fib on amiodarone, nadolol and Eliquis: Continued. 6. Fall, generalized weakness failure to thrive: CT head and CT C-spine was done which did not show any acute abnormality. 7. Hypertension: On nadolol. 8. Diabetes mellitus type II: Accu-Cheks and cover with Humalog sliding scale. Patient on scheduled insulin as per home dose and will titrate as per Accu-Cheks 9. Anxiety and depression: Patient has ADHD. On methylphenidate and Paxil. 10. DORY/OSH on BiPAP at night 11. VTE prophylaxis on Eliquis Total time of the visit including total time spent in counseling or coordination of care, (more than 50% of the total time, spent in obtaining medical information from nurses and other ancillary care providers,explaining to the patient about labs, imaging, diagnosis and management of active complex medical conditions), review of complex management, review of labs and imaging is 40 minutes. Microbiology Past 72 Hours Living will/advanced directive/end of life care: Patient does have living will or advanced directive. After discussion of benefits/risks procedures involved with full code, DNR CC arrest and DNR CC, the patient very well knows that she is DNR CC arrest. Patient does want artificial life support including intubation, tube feed, ventilator and/chest compression, central venous catheter, vasopressor and DC shock if needed but she is okay with BiPAP or CPAP Total time spent in [id number] encounter in discussion of advanced directive 16 minutes. Clinical Impression(s) from Imaging Studies Chest X-Ray 05/23/22 10:17 IMPRESSION: No significant interval change. Brain CT 05/23/22 10:34 IMPRESSION: No acute intracranial process identified. Chronic involutional and white matter changes. Severe chronic maxillary sinusitis. Chest CT 05/23/22 10:34 IMPRESSION: Mildly decreased size of masses or consolidation in the right upper lobe, superior segment of the right lower lobe, and left upper lobe. New spiculated nodular opacities scattered in the right lung and new patchy opacity in the left upper lobe, which may represent new regions of pneumonia or metastasis. Increased size of left lower lobe pulmonary nodule concerning for progression of metastasis. Cervical Spine CT 05/23/22 10:37 IMPRESSION: No evidence of acute cervical spinal fracture or dislocation. Multilevel degenerative change. Charges/Coding Visit Charges Inpatient E&M: 43409 Subs Hosp L3
[2022-05-24 12:06] LABS: Bedside Glucose 236 mg/dL (74-106)
[2022-05-24 16:46] LABS: Bedside Glucose 184 mg/dL (74-106)
--- NOTE | 2022-05-24 19:59 | PCM.RX.CS ---
Consult Pharmacy has been consulted to manage selected antiobiotic: Vancomycin Type of Consult: Follow-up Labs: Sodium 134 mmol/L (136-145) L 05/24/22 05:40 Potassium 4.2 mmol/L (3.5-5.1) 05/24/22 05:40 Chloride 101 mmol/L (98-107) 05/24/22 05:40 Carbon Dioxide 29.0 mmol/L (21.0-32.0) 05/24/22 05:40 Anion Gap 4 (5-15) L 05/24/22 05:40 BUN 14 mg/dL (7-18) 05/24/22 05:40 Creatinine 1.01 mg/dL (0.55-1.02) 05/24/22 05:40 Est GFR (MDRD) Af Amer 69 mL/min (>60) 05/24/22 05:40 Est GFR (MDRD) Non-Af 57 mL/min (>60) L 05/24/22 05:40 BUN/Creatinine Ratio 13.9 RATIO (10-20) 05/24/22 05:40 Glucose 194 mg/dL (74-106) H 05/24/22 05:40 Microbiology: Microbiology 05/23/22 15:30 Mucosa - Nasopharyngeal Respiratory Panel (PCR) - Final 05/23/22 12:25 Urine Catheter - Catheter Legionella Antigen - Final 05/23/22 12:25 Urine Catheter - Catheter Streptococcus pneumoniae Antigen (M - Final 05/23/22 10:48 Nasal Secretion SARS-CoV-2 & FLU Antigen (Rapid) - Final Pharmacy Plan for Drug Dosing: Pharmacy Service will continue to monitor and adjust dosing as required. DOSE HUNG VERY LATE ON DOSE PRIOR TO TROUGH DRAW. RESCHEDULE TROUGH FOR LATER DOSE Labs to be done on [date and time ordered]: 05/25 @ 5698
[2022-05-24] MEDS: Acetaminophen 325 MG Tablet 650 MG PO (20:25)
[2022-05-24] MEDS: Atorvastatin Calcium 40 MG Tablet PO (21:54)
[2022-05-24] MEDS: Pramipexole Di-HCl 0.5 MG Tablet PO (21:54)
[2022-05-24 22:35] LABS: Bedside Glucose 200 mg/dL (74-106)
[2022-05-25] VITALS (17 sets, daily range): BP systolic 102–142; BP diastolic 48–67; PULSE 68–86; RESP 14–28; TEMP 36.7–38.2; O2SAT 91–94
[2022-05-25] MEDS: Ipratropium/Albuterol Sulfate 3 ML AMPUL.NEB INHALATION ×4 (07:00→19:13)
[2022-05-25] MEDS: Insulin Lispro 100 UNIT/ML INSULN.PEN SC ×4 (07:18→20:35)
[2022-05-25 07:45] LABS: Bedside Glucose 157 mg/dL (74-106)
[2022-05-25] MEDS: Nystatin Powder 15gm Bottle 1 APPLIC TOPICAL ×2 (08:38→20:36)
[2022-05-25] MEDS: Furosemide 40 MG Tablet PO (08:38)
[2022-05-25] MEDS: Paroxetine 20 MG Tablet 40 MG PO (08:39)
[2022-05-25] MEDS: Amiodarone 200 MG Tablet 100 MG PO ×2 (08:39→18:07)
[2022-05-25] MEDS: APIXABAN 5 MG TABLET PO ×2 (08:39→20:35)
[2022-05-25] MEDS: Nadolol 40 MG Tablet PO (08:39)
--- NOTE | 2022-05-25 11:12 | PCM.PN.HOSP ---
Subjective Subjective Patient found short of breath in the morning. On BiPAP last night. Complain of mild pain over lower legs.. Objective Data Objective Data Vital Signs: Vital Signs Temp Pulse Resp BP Pulse Ox O2 Del Method O2 Flow Rate 99.8 F H 74 28 H 102/48 L 93 Bi-pap 4 05/25/22 02:19 05/25/22 10:41 05/25/22 10:41 05/25/22 02:19 05/25/22 10:41 05/25/22 05:00 05/24/22 16:00 FiO2 25 05/25/22 10:41 Oxygen Flow Rate (L/min) 4 Oxygen Delivery Method Bi-pap Weight: 292 lb 1.8 oz Body Mass Index (BMI) 51.3 Intake & Output: Intake and Output for Last 24 Hours 05/23/22 05/24/22 05/25/22 23:59 23:59 23:59 Intake Total 1370 / 1370 3410 / 3410 1180 / 1180 Output Total 500 / 700 625 / 625 Balance 1370 / 1370 2910 / 2710 555 / 555 Lab / Micro Data Result Diagrams: 05/25/22 12:02 05/25/22 12:02 Labs: Laboratory Results - last 24 hr 05/24/22 11:38: POC Glucose 236 H 05/24/22 16:03: POC Glucose 184 H 05/24/22 22:11: POC Glucose 200 H 05/25/22 07:18: POC Glucose 157 H Micro: Microbiology 05/23/22 12:25 Urine, Clean Catch Urine Culture - Final Mixed Gram Positive Organisms 05/23/22 15:30 Mucosa - Nasopharyngeal Respiratory Panel (PCR) - Final 05/23/22 12:25 Urine Catheter - Catheter Legionella Antigen - Final 05/23/22 12:25 Urine Catheter - Catheter Streptococcus pneumoniae Antigen (M - Final 05/23/22 10:48 Nasal Secretion SARS-CoV-2 & FLU Antigen (Rapid) - Final Physical Exam Narrative Physical exam General: Alert, Oriented x3, Cooperative, morbid obesity 52.4 kg/m?. HEENT: Atraumatic, PERRLA, EOMI, Normocephalic Oral: On BiPAP. Neck: Supple, No JVD, Negative Carotid Bruits Lungs: Air entry diminished in bilateral lung bases. Lungs clear. Mild dyspnea at rest. Cardiovascular: Regular rate, Regular Rhythm, Normal S1, Normal S2, systolic murmur present LLSB Abdomen: Bowel Sounds Present, Soft, Non Tender, Non-Distended : No renal angle tenderness. No suprapubic tenderness. Extremities: Bilateral 1+ pitting edema, Capillary Refill Less than 3 Seconds Skin: No rashes, No breakdown Musculoskeletal: ROM restricted at hip and knee joints. Muscle strength 4/5 at hip knee and ankle joints. Neurological: Cranial nerves II-XII grossly intact, DTR 2+/4. No acute focal deficit Psych/Mental Status: Flat affect. Assessment & Plan Assessment/Plan (1) Pneumonia: PLAN: Plan This is 76-year-old female was admitted for shortness of breath, increased cough fatigue, weakness, nausea vomiting after chemotherapy 2 weeks ago. 1. Complicated multifocal multilobular pneumonia: CT chest was done in ED and compared with the previous CT chest of March 2022. It shows mild decrease of mass/consolidation in the right upper lobe, superior segment of right lower lobe and left upper lobe although to me it looks not significant decrease. He also suspicion of increased progression of metastasis with increase in the size of left lower lobe pulmonary nodule. New patchy opacity left upper lobe concerning for pneumonia/metastasis. Patient is being admitted on [facility] floor. Started on IV antibiotics vancomycin and Zosyn. Patient does not have true allergy with cefadroxil as she had multiple times cefazolin and Zosyn and cefepime. Pneumonia work-up ordered. Continue bronchodilator every 6 hourly, incentive spirometry, Pep. 05/24: Urinary antigens are negative. Respiratory panel negative. MRSA nasal screen negative. No leukocytosis. Bands 28%, neutrophils 36%, lymphocytes 7%, patient has monocytes metamyelocytes and myelocytes with history of left shift. 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 Continue broad-spectrum IV vancomycin and Zosyn. Repeat chest x-ray ordered. 2. Chemotherapeutic adverse effect including loss of appetite, nausea, vomiting and diarrhea: Diarrhea has improved. Needs to be aggressive rehydration. Urine output was dark and yellow in ED. Continue IV fluid hydration 05/25: Patient has +4.2 L. Patient is on Lasix 40 mg daily. 3. Chronic hypoxic and hypercarbic respiratory failure probably due to obesity hypoventilation syndrome complicated with pneumonia and lung cancer: Patient on 4 L of oxygen at at home 28/12 and he wears BiPAP at night. 4. Stage III NSCLC: Patient currently undergoing chemotherapy. Patient had radiotherapy. She follows Dr. Crouch. 5. Paroxysmal A. fib on amiodarone, nadolol and Eliquis: Continued. 6. Fall, generalized weakness failure to thrive: CT head and CT C-spine was done which did not show any acute abnormality. 7. Hypertension: On nadolol. 8. Diabetes mellitus type II: Accu-Cheks and cover with Humalog sliding scale. Patient on scheduled insulin as per home dose and will titrate as per Accu-Cheks 9. Anxiety and depression: Patient has ADHD. On methylphenidate and Paxil. 10. DORY/OSH on BiPAP at night 11. VTE prophylaxis on Eliquis Total time of the visit including total time spent in counseling or coordination of care, (more than 50% of the total time, spent in obtaining medical information from nurses and other ancillary care providers,explaining to the patient about labs, imaging, diagnosis and management of active complex medical conditions), review of complex management, review of labs and imaging is 40 minutes. Microbiology Past 72 Hours 05/23/22 12:25 Urine, Clean Catch Urine Culture - Final Mixed Gram Positive Organisms 05/23/22 15:30 Mucosa - Nasopharyngeal Respiratory Panel (PCR) - Final 05/23/22 12:25 Urine Catheter - Catheter Legionella Antigen - Final 05/23/22 12:25 Urine Catheter - Catheter Streptococcus pneumoniae Antigen (M - Final 05/23/22 10:48 Nasal Secretion SARS-CoV-2 & FLU Antigen (Rapid) - Final Laboratory Results 05/23/22 10:10: Diff Path Review Reviewed 05/24/22 05:40: Diff Path Review Reviewed 05/24/22 16:03: POC Glucose 184 H 05/24/22 22:11: POC Glucose 200 H 05/25/22 07:18: POC Glucose 157 H 05/25/22 12:02: WBC 14.1 H, RBC 3.29 L, Hgb 8.3 L, Hct 27.8 L, MCV 84.5, MCH 25.2 L, MCHC 29.9 L D, RDW Std Deviation 52.7 H, RDW Coeff of Aniceto 17.3 H, Plt Count 343, MPV 9.3, Neut % (Auto) Not Reportable, Absolute Neuts (auto) 11.1 H, Absolute Lymphs (auto) 0.40 L, Total Counted 100, Neutrophils % (Manual) 74 H, Band Neutrophils % 5, Lymphocytes % (Manual) 3 L, Monocytes % (Manual) 10, Basophils % (Manual) 1, Metamyelocytes % 4 H, Myelocytes % 3 H, Diff Path Review May foll, Platelet Estimate ADEQUATE, RBC Morphology NORM C+C 05/25/22 12:02: Sodium 133 L, Potassium 3.2 L, Chloride 99, Carbon Dioxide 26.0, Anion Gap 8, BUN 14, Creatinine 1.21 H, Estim Creat Clear Calc 33.23, Est GFR (MDRD) Af Amer 56 L, Est GFR (MDRD) Non-Af 46 L, BUN/Creatinine Ratio 11.6, Glucose 243 H, Calcium 8.6 05/25/22 12:07: POC Glucose 212 H Clinical Impression(s) from Imaging Studies Chest X-Ray 05/23/22 10:17 IMPRESSION: No significant interval change. Brain CT 05/23/22 10:34 IMPRESSION: No acute intracranial process identified. Chronic involutional and white matter changes. Severe chronic maxillary sinusitis. Chest CT 05/23/22 10:34 IMPRESSION: Mildly decreased size of masses or consolidation in the right upper lobe, superior segment of the right lower lobe, and left upper lobe. New spiculated nodular opacities scattered in the right lung and new patchy opacity in the left upper lobe, which may represent new regions of pneumonia or metastasis. Increased size of left lower lobe pulmonary nodule concerning for progression of metastasis. Cervical Spine CT 05/23/22 10:37 IMPRESSION: No evidence of acute cervical spinal fracture or dislocation. Multilevel degenerative change. Charges/Coding Visit Charges Inpatient E&M: 55444 Subs Hosp L3
[2022-05-25 12:21] LABS: Hematocrit 27.8 % (37-47); Hemoglobin 8.3 g/dL (12.0-15.0); Mean Corp Hgb Conc 29.9 g/dL (32-36); Mean Corpuscular Hgb 25.2 pg (27.0-32.0); Mean Corpuscular Volume 84.5 fL (81-99); Mean Platelet Vol. 9.3 fl (6.2-12.0); POSITIVE COUNT YES; POSITIVE DIFFERENTIAL YES; POSITIVE MORPHOLOGY YES; Platelet Count 343 K/mm3 (150-450); RBC Distribution Width CV 17.3 % (11.6-14.6); RBC Distribution Width SD 52.7 fl (35.1-43.9); Red Blood Count 3.29 M/mm3 (4.2-5.4); White Blood Count 14.1 K/mm3 (4.4-11.0)
[2022-05-25 12:22] LABS: Differential Indicated MANUAL DIFF
[2022-05-25 12:30] LABS: Bedside Glucose 212 mg/dL (74-106)
[2022-05-25 12:36] LABS: Anion Gap 8 (5-15); BUN 14 mg/dL (7-18); BUN/Creat Ratio 11.6 RATIO (10-20); Calcium,Total 8.6 mg/dL (8.5-10.1); Chloride 99 mmol/L (98-107); Creatinine, Serum 1.21 mg/dL (0.55-1.02); EST Glomerular Filtration Rate 46 mL/min (>60); Est Glom Filt Rate - Afr Amer 56 mL/min (>60); Estimated Creatinine Clearance 33.23 ml/min; Glucose 243 mg/dL (74-106); Potassium 3.2 mmol/L (3.5-5.1); Sodium Level 133 mmol/L (136-145)
[2022-05-25 13:47] LABS: Basophil 1 % (0-1); Lymphocyte 3 % (19-41); Metamyelocyte 4 % (0-1); Monocyte 10 % (0-10); Myelocyte 3 % (0-0); Neutrophil-Band 5 % (0-5); Neutrophil-Segmented 74 % (47-70); Platelet Estimate ADEQUATE (ADEQ); Total Cells Counted 100 (MANUAL DIFF)
[2022-05-25 13:48] LABS: Absolute Neutrophil Count 11.1 X10^3/uL (2.0-7.7); Red Cell Morphology NORM C+C NORMAL (NORM C&C)
--- NOTE | 2022-05-25 13:58 | CASEMGMT ---
Social Work SW called pt daughter and HCPOA, Santa, to begin the discharge planning process following update from Dr. Gold that pt will need rehab at discharge. Santa refused to discuss discharge plan, stated My mother will absolutely not being going anywhere until I've heard from a medical professional regarding what is going on with her. SW validated Santa's concern. Santa requested to speak to pt's bedside nurse or Dr. Gold. SW shared intent with Santa to inform bedside nurse, Cathy, that Santa would like a phone call to discuss. SW asked if Santa would like to receive an electronic list of SNF providers including quality and resource use data and consistent with the patient?s preferred geographic region, medical needs, and insurance network were provided from the [employer]. Santa declined this list at this time, stated the goal is for pt to NOT go to SNF as pt does not receive the proper care at these facilities. Santa would not discharge plan with SW at this time and ended the phone call. SW informed pt's bedside nurse, Cathy, that daughter Santa would like to speak with her. MICHAEL Ingram
[2022-05-25 14:01] LABS: Pathologist Review Reviewed
[2022-05-25 14:06] LABS: Pathologist Review Reviewed
--- NOTE | 2022-05-25 15:08 | RAD_ITS ---
STUDY: X-RAY CHEST REASON FOR EXAM: Female, 76 years old. SOB, TACHYPNEA TECHNIQUE: Single AP portable view of the chest. COMPARISON: Comparison is made with prior study dated 05/23/2022. FINDINGS: A right-sided Port-A-Cath is seen with the tip at the junction of the superior vena cava and right atrium. Surgical clips are seen in the right axillary region. Persistent opacification of the right upper lobe. Progressive infiltration in the right lower lobe. Mild increased markings in the left upper lobe. Normal size heart. Normal mediastinum and tanna. Normal visualized pulmonary arteries. Normal visualized aortic arch and descending thoracic aorta. There are diffuse degenerative changes of the visualized thoracic spine. Normal visualized ribs, clavicles, and shoulders. There is no demonstrated abnormality of the visualized soft tissue structures of the upper abdomen. RAD/Chest 1 View (Portable) IMPRESSION: Opacification of the right upper lobe. Progressive infiltration in the right lower lobe. Increased markings in the left upper lobe. Electronically Signed: Salazar Garcia MD at 15:36 EST ,
--- NOTE | 2022-05-25 16:20 | NURSING ---
This RN called pt's daughter, Santa, upon request. Santa wanted an update on pt. This RN explained pt's progress to daughter. Daughter expressed interest in consulting infectious disease MD for pt. She said that her mother seems to develop pneumonia shortly after receiving chemotherapy and wanted this looked into further. This RN told pt's daughter that she would notify the hospitalist of this request. Pt's daughter expressed thanks.
[2022-05-25 16:21] LABS: Bedside Glucose 173 mg/dL (74-106)
[2022-05-25 17:10] LABS: Vancomycin, Trough Level 18.9 ug/mL (5.0-15.0)
--- NOTE | 2022-05-25 18:11 | PCM.RX.CS ---
Consult Pharmacy has been consulted to manage selected antiobiotic: Vancomycin Type of Consult: Follow-up Suspected Infection: Pneumonia Prior Doses of Antibiotics Received/Current Regimen: Currently on 1500mg iv q12h. Labs: Sodium 133 mmol/L (136-145) L 05/25/22 12:02 Potassium 3.2 mmol/L (3.5-5.1) L 05/25/22 12:02 Chloride 99 mmol/L (98-107) 05/25/22 12:02 Carbon Dioxide 26.0 mmol/L (21.0-32.0) 05/25/22 12:02 Anion Gap 8 (5-15) 05/25/22 12:02 BUN 14 mg/dL (7-18) 05/25/22 12:02 Creatinine 1.21 mg/dL (0.55-1.02) H 05/25/22 12:02 Est GFR (MDRD) Af Amer 56 mL/min (>60) L 05/25/22 12:02 Est GFR (MDRD) Non-Af 46 mL/min (>60) L 05/25/22 12:02 BUN/Creatinine Ratio 11.6 RATIO (10-20) 05/25/22 12:02 Glucose 243 mg/dL (74-106) H 05/25/22 12:02 Vancomycin Trough 18.9 ug/mL (5.0-15.0) H 05/25/22 16:08 Microbiology: Microbiology 05/23/22 12:25 Urine, Clean Catch Urine Culture - Final Mixed Gram Positive Organisms 05/23/22 15:30 Mucosa - Nasopharyngeal Respiratory Panel (PCR) - Final 05/23/22 12:25 Urine Catheter - Catheter Legionella Antigen - Final 05/23/22 12:25 Urine Catheter - Catheter Streptococcus pneumoniae Antigen (M - Final 05/23/22 10:48 Nasal Secretion SARS-CoV-2 & FLU Antigen (Rapid) - Final Weight used for dosin.5 kg Estimated Creatinine Clearance: 53 ml/min Goal Trough: 15-20 mcg/mL Pharmacy Plan for Drug Dosing: Trough today reported to be 18.9 ~11 hrs post last dose. This is in desired range of 15-20mcg/ml. Renal function of Cr 1.21 reviewed. Using adjusted body weight of 84.2kg, CrCl calculated to be ~ 53ml/min. Will continue same dose. Another trough level ordered before another 4th dose on 05.27.22. Pharmacy Service will continue to monitor and adjust dosing as required. Follow-Up Labs: Trough Vancomycin - 05.27.22 @0430 before 0500 dose
[2022-05-25] MEDS: Acetaminophen 325 MG Tablet 650 MG PO (20:35)
[2022-05-25] MEDS: Pramipexole Di-HCl 0.5 MG Tablet PO (20:35)
[2022-05-25] MEDS: Atorvastatin Calcium 40 MG Tablet PO (20:35)
[2022-05-25 22:50] LABS: Bedside Glucose 166 mg/dL (74-106)
[2022-05-25] MEDS: Potassium Chloride Oral Tablet 20 MEQ 40 MEQ PO (23:20)
[2022-05-26] VITALS (18 sets, daily range): BP systolic 113–154; BP diastolic 47–69; PULSE 58–89; RESP 14–37; TEMP 36.8–37.3; O2SAT 90–94
[2022-05-26] MEDS: Insulin Lispro 100 UNIT/ML INSULN.PEN SC ×4 (06:09→20:32)
--- NOTE | 2022-05-26 07:19 | PCM.PN.HOSP ---
Subjective Subjective Follow-up for acute on chronic hypoxic and hypercarbic respiratory failure due to right lung postobstructive pneumonia/consolidation and lung cancer Objective Data Objective Data Vital Signs: Vital Signs Temp Pulse Resp BP Pulse Ox O2 Del Method O2 Flow Rate 98.6 F 71 22 H 138/65 H 90 Nasal Cannula 3 05/26/22 04:24 05/26/22 04:24 05/26/22 04:24 05/26/22 04:24 05/26/22 06:00 05/26/22 06:00 05/26/22 06:00 FiO2 30 05/26/22 04:24 Oxygen Flow Rate (L/min) 3 Oxygen Delivery Method Nasal Cannula Weight: 292 lb 1.8 oz Body Mass Index (BMI) 51.3 Intake & Output: Intake and Output for Last 24 Hours 05/24/22 05/25/22 05/26/22 23:59 23:59 23:59 Intake Total 3410 / 3410 1810 / 2110 1280 / 1280 Output Total 500 / 700 1525 / 1525 300 / 300 Balance 2910 / 2710 285 / 585 980 / 980 Lab / Micro Data Result Diagrams: 05/26/22 07:55 05/26/22 07:55 Labs: Laboratory Results - last 24 hr 05/23/22 10:10: Diff Path Review Reviewed 05/24/22 05:40: Diff Path Review Reviewed 05/25/22 07:18: POC Glucose 157 H 05/25/22 12:02: WBC 14.1 H, RBC 3.29 L, Hgb 8.3 L, Hct 27.8 L, MCV 84.5, MCH 25.2 L, MCHC 29.9 L D, RDW Std Deviation 52.7 H, RDW Coeff of Aniceto 17.3 H, Plt Count 343, MPV 9.3, Neut % (Auto) Not Reportable, Absolute Neuts (auto) 11.1 H, Absolute Lymphs (auto) 0.40 L, Total Counted 100, Neutrophils % (Manual) 74 H, Band Neutrophils % 5, Lymphocytes % (Manual) 3 L, Monocytes % (Manual) 10, Basophils % (Manual) 1, Metamyelocytes % 4 H, Myelocytes % 3 H, Diff Path Review May , Platelet Estimate ADEQUATE, RBC Morphology NORM C+C 05/25/22 12:02: Sodium 133 L, Potassium 3.2 L, Chloride 99, Carbon Dioxide 26.0, Anion Gap 8, BUN 14, Creatinine 1.21 H, Estim Creat Clear Calc 33.23, Est GFR (MDRD) Af Amer 56 L, Est GFR (MDRD) Non-Af 46 L, BUN/Creatinine Ratio 11.6, Glucose 243 H, Calcium 8.6 05/25/22 12:07: POC Glucose 212 H 05/25/22 15:52: POC Glucose 173 H 05/25/22 16:08: Vancomycin Trough 18.9 H 05/25/22 20:34: POC Glucose 166 H Micro: Microbiology 05/23/22 12:25 Urine, Clean Catch Urine Culture - Final Mixed Gram Positive Organisms 05/23/22 15:30 Mucosa - Nasopharyngeal Respiratory Panel (PCR) - Final 05/23/22 12:25 Urine Catheter - Catheter Legionella Antigen - Final 05/23/22 12:25 Urine Catheter - Catheter Streptococcus pneumoniae Antigen (M - Final 05/23/22 10:48 Nasal Secretion SARS-CoV-2 & FLU Antigen (Rapid) - Final Radiography Diagnostic Testing: Radiology Impression Chest X-Ray 05/25/22 15:08 IMPRESSION: Opacification of the right upper lobe. Progressive infiltration in the right lower lobe. Increased markings in the left upper lobe. Physical Exam Narrative Physical exam General: Alert, Oriented x3, Cooperative, morbid obesity 52.4 kg/m?. HEENT: Atraumatic, PERRLA, EOMI, Normocephalic Oral: On BiPAP. Neck: Supple, No JVD, Negative Carotid Bruits Lungs: Air entry severely diminished in right lung, right lung whiteout. Labored breathing/dyspnea at rest. Tachypnea on BiPAP. Cardiovascular: Regular rate, Regular Rhythm, Normal S1, Normal S2, systolic murmur present LLSB Abdomen: Bowel Sounds Present, Soft, Non Tender, Non-Distended : No renal angle tenderness. No suprapubic tenderness. Extremities: Bilateral 1+ pitting edema, Capillary Refill Less than 3 Seconds Skin: No rashes, No breakdown Musculoskeletal: ROM restricted at hip and knee joints. Muscle strength 4/5 at hip knee and ankle joints. Neurological: Cranial nerves II-XII grossly intact, DTR 2+/4. No acute focal deficit Psych/Mental Status: Flat affect. Assessment & Plan Assessment/Plan (1) Pneumonia: PLAN: Plan This is 76-year-old female was admitted for shortness of breath, increased cough fatigue, weakness, nausea vomiting after chemotherapy 2 weeks ago. 1. Complicated multifocal multilobular pneumonia: CT chest was done in ED and compared with the previous CT chest of March 2022. It shows mild decrease of mass/consolidation in the right upper lobe, superior segment of right lower lobe and left upper lobe although to me it looks not significant decrease. He also suspicion of increased progression of metastasis with increase in the size of left lower lobe pulmonary nodule. New patchy opacity left upper lobe concerning for pneumonia/metastasis. [facility] Started on IV antibiotics vancomycin and Zosyn. Patient does not have true allergy with cefadroxil as she had multiple times cefazolin and Zosyn and cefepime. Pneumonia work-up ordered. Continue bronchodilator every 6 hourly, incentive spirometry, Pep. 05/24: Urinary antigens are negative. Respiratory panel negative. MRSA nasal screen negative. No leukocytosis. Bands 28%, neutrophils 36%, lymphocytes 7%, patient has monocytes metamyelocytes and myelocytes with history of left shift. Continue broad-spectrum IV antibiotics vancomycin and Zosyn 05/25: At night patient on BiPAP but switched to 3 L of oxygen home requirement.Patient was tachypneic during fuse cup expander time. Continue broad-spectrum IV vancomycin and Zosyn. Repeat chest x-ray ordered. 05/26: In the morning, repeat chest x-ray shows worsening of right lower lobe consolidation along with increased left upper lobe infiltrate, complete right lung whiteout. Worsening of leukocytes with left shift with bands, myelocytes and metamyelocytes. Clip Bolter [employer] Wrapper/training systems officer consulted and discussed with him. Advised to continue IV antibiotics, Solu-Medrol and vest therapy added. It seems currently it will not benefit from acapella. If further continuation or worsening of breathing or culture negative can consider bronchoscopy in future but not now. 2. Chemotherapeutic adverse effect including loss of appetite, nausea, vomiting and diarrhea: Diarrhea has improved. Needs to be aggressive rehydration. Urine output was dark and yellow in ED. Continue IV fluid hydration 05/25: Patient has +4.2 L. Patient is on Lasix 40 mg daily. 05/26: Creatinine went up from 1.0-1.2 and 1.53. USAMA most likely prerenal but infectious cause cannot be ruled out.Hold Lasix. 3. Chronic hypoxic and hypercarbic respiratory failure probably due to obesity hypoventilation syndrome complicated with pneumonia and lung cancer: Patient on 4 L of oxygen at at home 28/12 and he wears BiPAP at night. 4. Stage III NSCLC: Patient currently undergoing chemotherapy. Patient had radiotherapy. She follows Dr. Crouch. 5. Paroxysmal A. fib on amiodarone, nadolol and Eliquis: Continued. 6. Fall, generalized weakness failure to thrive: CT head and CT C-spine was done which did not show any acute abnormality. 7. Hypertension: On nadolol. 8. Diabetes mellitus type II: Accu-Cheks and cover with Humalog sliding scale. Patient on scheduled insulin as per home dose and will titrate as per Accu-Cheks 9. Anxiety and depression: Patient has ADHD. On methylphenidate and Paxil. 10. DORY/OSH on BiPAP at night 11. VTE prophylaxis on Eliquis Total time of the visit including total time spent in counseling or coordination of care, (more than 50% of the total time, spent in obtaining medical information from nurses and other ancillary care providers,explaining to the patient about labs, imaging, diagnosis and management of active complex medical conditions), discussion with inclusion paraeducator and ID, review of complex management, review of labs and imaging is 40 minutes. Charges/Coding Visit Charges Inpatient E&M: [address] [facility] L3
[2022-05-26] MEDS: Ipratropium/Albuterol Sulfate 3 ML AMPUL.NEB INHALATION ×4 (07:40→19:18)
[2022-05-26 08:21] LABS: Hematocrit 27.1 % (37-47); Hemoglobin 8.5 g/dL (12.0-15.0); Mean Corp Hgb Conc 31.4 g/dL (32-36); Mean Corpuscular Hgb 26.4 pg (27.0-32.0); Mean Corpuscular Volume 84.2 fL (81-99); Mean Platelet Vol. 9.4 fl (6.2-12.0); POSITIVE COUNT YES; POSITIVE DIFFERENTIAL YES; POSITIVE MORPHOLOGY YES; Platelet Count 374 K/mm3 (150-450); RBC Distribution Width CV 17.4 % (11.6-14.6); RBC Distribution Width SD 52.9 fl (35.1-43.9); Red Blood Count 3.22 M/mm3 (4.2-5.4); White Blood Count 21.2 K/mm3 (4.4-11.0)
[2022-05-26 08:50] LABS: Anion Gap 8 (5-15); BUN 13 mg/dL (7-18); BUN/Creat Ratio 8.5 RATIO (10-20); Calcium,Total 8.8 mg/dL (8.5-10.1); Chloride 101 mmol/L (98-107); Creatinine, Serum 1.53 mg/dL (0.55-1.02); EST Glomerular Filtration Rate 35 mL/min (>60); Est Glom Filt Rate - Afr Amer 43 mL/min (>60); Estimated Creatinine Clearance 26.28 ml/min; Glucose 195 mg/dL (74-106); Potassium 3.5 mmol/L (3.5-5.1); Sodium Level 137 mmol/L (136-145)
[2022-05-26 09:03] LABS: Differential Indicated MANUAL DIFF
[2022-05-26] MEDS: Nadolol 40 MG Tablet PO (09:23)
[2022-05-26] MEDS: Paroxetine 20 MG Tablet 40 MG PO (09:24)
[2022-05-26] MEDS: Potassium Chloride Oral Tablet 20 MEQ 40 MEQ PO ×2 (09:24→11:19)
[2022-05-26] MEDS: Amiodarone 200 MG Tablet 100 MG PO ×2 (09:24→16:39)
[2022-05-26] MEDS: APIXABAN 5 MG TABLET PO ×2 (09:24→20:24)
[2022-05-26] MEDS: Furosemide 40 MG Tablet PO (09:24)
[2022-05-26] MEDS: Nystatin Powder 15gm Bottle 1 APPLIC TOPICAL ×2 (09:24→20:24)
--- NOTE | 2022-05-26 10:31 | PCM.CONS.GEN ---
Assessment & Plan Assessment/Plan (1) Pneumonia: PLAN: Multifocal pneumonia, recent chemo and radiation for NSCLC. Not producing sputum. Resp viral panel neg, UAgs neg. Fever improved. MRSA pcr neg. On empiric vanc/zosyn. Consider pulm consult if not improving. Will follow, thank you (2) Cancer: HPI Consult Data Date of Consult: 05/26/22 HPI Narrative Reason for Consultation: pneumonia HPI Narrative: ALESSANDRO GUARDADO, is a 76 F with NSCLC, recurrent pneumonia, presented 05/23 with 1-2 weeks worsened cough, dyspnea, fatigue. Also reports several days of diarrhea. Last chemo about 2 weeks ago. Treated for pneumonia with cefepime last month. Not producing sputum. On bipap this AM. Is on home O2. Admitted on vanc/zosyn. Full ROS performed and neg except as noted above. [facility], [facility] Medical History (Updated 05/26/22 @ 10:[address] Dre Plascencia MD) Acute and chronic respiratory failure with hypoxia Acute bronchitis due to Rhinovirus Acute severe exacerbation of asthma Allergic rhinitis Anemia Anxiety Aspiration pneumonitis Asthma Asthmatic bronchitis Atrial fibrillation Atrial fibrillation with RVR BiPAP (biphasic positive airway pressure) dependence Body mass index (BMI) 50-59.9, adult Breast cancer Cancer Chronic diarrhea Chronic respiratory failure with hypoxia Dependence on supplemental oxygen Depression Diabetes Diabetes mellitus, type II Former smoker Former tobacco use GERD (gastroesophageal reflux disease) Heartburn High cholesterol History of primary non-small cell carcinoma of right lung History of right breast cancer History of steroid therapy Hypertension Immunosuppressed due to chemotherapy Leg cramps Loss of hearing Lung cancer Migraine headache Migraines Obstructive sleep apnea On home oxygen therapy Osteoarthritis Pneumonia Restless legs Sleep apnea Uses wheelchair Vitamin D deficiency Walker as ambulation aid Wears glasses Home Medications cholecalciferol (vitamin D3) 1,250 mcg (50,000 unit) capsule 50,000 unit PO SUWE@0800 SUPPLEMENT 06/01/17 [History Last Taken 05/22/22] albuterol sulfate 90 mcg/actuation aerosol inhaler (ProAir HFA) 2 puff inhalation Q6H PRN PRN Dyspnea/Wheezing/Sob 03/25/18 [History Last Taken 05/22/22] fluticasone furoate 200 mcg-vilanterol 25 mcg/dose inhalation powder (Breo Ellipta) 2 inh inhalation DAILY sob 12/09/21 [History Last Taken 05/22/22] insulin regular hum U-500 conc 500 unit/mL(3 mL) subcut pen (Humulin R U-500 (Conc) Insulin Kwikpen) 65 unit subcut DAILY diabetes 12/09/21 [History Last Taken 05/22/22] nadolol 40 mg tablet 40 mg PO DAILY heart 12/09/21 [History Last Taken 05/22/22] paroxetine HCl 40 mg tablet (Paxil) 40 mg PO DAILY mood 12/09/21 [History Last Taken 05/22/22] nystatin 100,000 unit/gram topical powder (Nyamyc) 1 applic topical BID #0 grams 12/30/21 [Rx Last Taken Unknown] guaifenesin 1,200 mg tablet, extended release 12 hr (Mucus Relief ER) 600 mg PO BID sputum 03/03/22 [History Last Taken 05/22/22] potassium chloride 10 mEq tablet,extended release 10 meq PO DAILY supplement 03/03/22 [History Last Taken 05/22/22] pramipexole 0.5 mg tablet (Mirapex) 0.5 mg PO QPM restless legs 03/03/22 [History Last Taken 05/22/22] rosuvastatin 20 mg tablet 20 mg PO DAILY a 03/03/22 [History Last Taken 05/22/22] prednisone 10 mg tablet 10 mg PO DAILY steroid 03/18/22 [History Last Taken 05/22/22] apixaban 5 mg tablet (Eliquis) 5 mg PO BID Check with primary doctor 03/26/22 [History Last Taken 05/20/22] amiodarone 100 mg tablet (Pacerone) 100 mg PO BID heart 04/22/22 [History Last Taken 05/22/22] furosemide 40 mg tablet 40 mg PO DAILY water pill 04/22/22 [History Last Taken 05/22/22] ipratropium bromide 0.02 % solution for inhalation 2.5 ml inhalation Q8H PRN shortness of breath or wheezing #75 mL 04/22/22 [Rx Last Taken 05/22/22] Allergy/AdvReac Type Severity Reaction Status Date / Time adhesive tape Allergy tears skin Verified 03/23/22 07:49 cefadroxil [From Duricef] Allergy Unknown Verified 03/23/22 07:49 gluten Allergy celiac Verified 03/23/22 07:49 disease mesalamine [From Asacol] Allergy Unknown Verified 03/23/22 07:49 omalizumab [From Xolair] Allergy Unknown Verified 03/23/22 07:49 Sulfa (Sulfonamide Allergy swelling Verified 03/23/22 07:49 Antibiotics) as an infant oxycodone AdvReac Vomiting Verified 03/23/22 07:49 Family History Father Cancer Myocardial infarction Mother Cancer Metastatic breast CA Surgical History H/O rectocele repair History of lymph node dissection of right axilla History of mastectomy History of partial hysterectomy Hx of bilateral cataract extraction Hx of carpal tunnel repair Social History household members: spouse Smoking Status: Former smoker how long ago did patient quit smoking: Smoked x 2 years 1/2 ppd, quit ~ 50 years prior. alcohol intake: never substance use type: does not use Physical Exam Const alert, oriented x3 and no apparent distress General Appearance: lethargic HEENT normocephalic and head/scalp atraumatic Eyes PERRL and EOMs intact bilaterally Resp Auscultation: rhonchi and diminished lung sounds Cardio Rate: tachycardic GI soft to palpation, non-tender and non-distended Extremity General Extremity: edema Skin no rashes or lesions noted Neuro CN's II-XII intact bilaterally Lab / Micro Data Attestation: I reviewed the patient's lab results. Result Diagrams: 05/26/22 07:55 05/26/22 07:55 Labs: Laboratory Results - last 24 hr 05/23/22 10:10: Diff Path Review Reviewed 05/24/22 05:40: Diff Path Review Reviewed 05/25/22 12:02: WBC 14.1 H, RBC 3.29 L, Hgb 8.3 L, Hct 27.8 L, MCV 84.5, MCH 25.2 L, MCHC 29.9 L D, RDW Std Deviation 52.7 H, RDW Coeff of Aniceto 17.3 H, Plt Count 343, MPV 9.3, Neut % (Auto) Not Reportable, Absolute Neuts (auto) 11.1 H, Absolute Lymphs (auto) 0.40 L, Total Counted 100, Neutrophils % (Manual) 74 H, Band Neutrophils % 5, Lymphocytes % (Manual) 3 L, Monocytes % (Manual) 10, Basophils % (Manual) 1, Metamyelocytes % 4 H, Myelocytes % 3 H, Diff Path Review October, Platelet Estimate ADEQUATE, RBC Morphology NORM C+C 05/25/22 12:02: Sodium 133 L, Potassium 3.2 L, Chloride 99, Carbon Dioxide 26.0, Anion Gap 8, BUN 14, Creatinine 1.21 H, Estim Creat Clear Calc 33.23, Est GFR (MDRD) Af Amer 56 L, Est GFR (MDRD) Non-Af 46 L, BUN/Creatinine Ratio 11.6, Glucose 243 H, Calcium 8.6 05/25/22 12:07: POC Glucose 212 H 05/25/22 15:52: POC Glucose 173 H 05/25/22 16:08: Vancomycin Trough 18.9 H 05/25/22 20:34: POC Glucose 166 H 05/26/22 07:55: WBC 21.2 H, RBC 3.22 L, Hgb 8.5 L, Hct 27.1 L, MCV 84.2, MCH 26.4 L, MCHC 31.4 L D, RDW Std Deviation 52.9 H, RDW Coeff of Aniceto 17.4 H, Plt Count 374, MPV 9.4, Neut % (Auto) Not Reportable 05/26/22 07:55: Sodium 137, Potassium 3.5, Chloride 101, Carbon Dioxide 28.0, Anion Gap 8, BUN 13, Creatinine 1.53 H, Estim Creat Clear Calc 26.28, Est GFR (MDRD) Af Amer 43 L, Est GFR (MDRD) Non-Af 35 L, BUN/Creatinine Ratio 8.5 L, Glucose 195 H, Calcium 8.8 Micro: Microbiology 05/23/22 12:25 Urine, Clean Catch Urine Culture - Final Mixed Gram Positive Organisms Radiology Impression Chest X-Ray 05/25/22 15:08 IMPRESSION: Opacification of the right upper lobe. Progressive infiltration in the right lower lobe. Increased markings in the left upper lobe. Electronically Signed: Salazar Garcia MD at 15:36 EST ,
[2022-05-26 11:02] LABS: Anisocytosis 2+; Hypochromasia 2+; Lymphocyte 4 % (19-41); Monocyte 8 % (0-10); Myelocyte 2 % (0-0); Neutrophil-Band 7 % (0-5); Neutrophil-Segmented 79 % (47-70); Platelet Estimate ADEQUATE (ADEQ); Total Cells Counted 100 (MANUAL DIFF)
[2022-05-26 11:03] LABS: Absolute Lymphocyte Count 0.84 X10^3/uL (0.83-4.51); Absolute Neutrophil Count 18.1 X10^3/uL (2.0-7.7); Dohle Bodies 7; Lymphocyte # 0.84 X10^3/ul (0.83-4.51)
[2022-05-26 11:21] LABS: Bedside Glucose 175 mg/dL (74-106)
[2022-05-26 11:40] LABS: Bedside Glucose 197 mg/dL (74-106)
[2022-05-26] MEDS: Ondansetron 4 MG/2 ML Vial IV (12:08)
[2022-05-26] MEDS: 0.9% Saline Lock 10 ML Syringe IV (12:08)
--- NOTE | 2022-05-26 12:33 | CON.PCM.CC_ITS ---
Assessment & Plan Assessment/Plan (1) Pneumonia: (2) Cancer: (3) Sleep apnea: QUALIFIERS: Sleep apnea type: obstructive Qualified Code(s): G47.33 - Obstructive sleep apnea (adult) (pediatric) PLAN: Plan RECOMMENDATIONS: 1. Agree with Zosyn and vancomycin therapy pending cultures 2. Defer antibiotics to infectious disease 3. Consider diuresis as tolerated 4. BiPAP rescue during the day and with sleep 5. Consider discussion about goals of therapy 6. No bronchoscopy at this time. Add mucolytic IMPRESSIONS: 1. Complicated multilobar pneumonia in the setting of lung cancer and chemotherapy Patient appears to have an element of postobstructive pneumonia multiple times in the right upper lobe. However, patient currently has right middle and right lower lobe infiltrates. Patient has grown multidrug-resistant Pseudomonas in the past, so agree with vancomycin and Zosyn pending cultures. Okay to use BiPAP intermittently during the day for rescue. Patient should continue on BiPAP with sleep. Could consider initiation of steroid therapy, but patient does not have a lot of wheezing on exam. Patient would likely benefit from aggressive pulmonary toileting, but does not appear to be open to Acapella at this time. May consider initiation of vest therapy for pulmonary toileting. If cultures are negative and patient continues to worsen, could consider bronchoscopy for BAL 2. Debility secondary to chemotherapeutic adverse effects and radiation Patient with significant GI complications associated with chemotherapy. Dr. Crouch has been following and counts appear to be adequate at this time. No indication for transfusion. 3. Paroxysmal A. fib/diabetes mellitus/morbid obesity/anxiety/depression/DORY Complicates care, management, recovery and prognosis. Patient appears to be using BiPAP appropriately. May need to hold Eliquis therapy if intervention is planned. Would recommend confirming CODE STATUS given marginal respiratory reserve in the setting of advanced cancer. Patient did not appear to be up to this today during my evaluation. HPI Consult Data Date of Consult: 05/26/22 HPI Narrative Reason for Consultation: Pneumonia HPI Narrative: ALESSANDRO GUARDADO is a 76 F, with past medical history listed below, who presents to [facility] on 05/23/2022 secondary to progressive weakness and shortness of breath. Patient reportedly is followed by Dr. Crouch secondary to metastatic breast cancer with mets to L3. Patient reportedly had palliative radiation last on April 21. Patient reportedly fell this morning and had pain in her upper back. Patient had suspected hitting her head, but did not lose consciousness. Patient is on Eliquis at baseline. Patient stated in retrospect she has been getting more weak over the last 2 to 3 days following an episode of diarrhea. Patient denied any abdominal pain, but did have some nausea and vomiting associated with the diarrhea. Patient had called EMS and was noted to have a temperature of 101 ?F. Patient was unaware of a previous fever, but stated that she was not routinely checking. Patient does have a history of recurrent pneumonia in the past. In the ER, patient was afebrile, but tachypneic at 25 breaths/min. Patient did not have significant tachycardia and blood pressures were adequate. Patient initially was tolerating room air, but then had to be transitioned to 4 L nasal cannula. Laboratory work-up showed a white blood cell count of 4.8, hemoglobin of 9 and platelets of 384. INR was slightly elevated at 1.4 and bicarbonate was 31. Renal function was within normal limits. Glucose was elevated at 263. Lactate and troponins were within normal limits. Patient's UA was relatively benign. Chest x-ray had continued opacity of the right upper lobe, but a subsequent CT scan showed increased size in left lower lobe nodule concerning for progression of metastasis. Patient was admitted to the hospital for further evaluation. Since being in the hospital, patient has been relatively stable. Patient has been using her BiPAP during the day secondary to shortness of breath and work of breathing. Patient is not able to provide much additional information at this t jamin as she stated that she needed to rest. Review of the medical record shows patient has seen Dr. Watters in the past. [facility] Medical History Acute and chronic respiratory failure with hypoxia Acute bronchitis due to Rhinovirus Acute severe exacerbation of asthma Allergic rhinitis Anemia Anxiety Aspiration pneumonitis Asthma Asthmatic bronchitis Atrial fibrillation Atrial fibrillation with RVR BiPAP (biphasic positive airway pressure) dependence Body mass index (BMI) 50-59.9, adult Breast cancer Cancer Chronic diarrhea Chronic respiratory failure with hypoxia Dependence on supplemental oxygen Depression Diabetes Diabetes mellitus, type II Former smoker Former tobacco use GERD (gastroesophageal reflux disease) Heartburn High cholesterol History of primary non-small cell carcinoma of right lung History of right breast cancer History of steroid therapy Hypertension Immunosuppressed due to chemotherapy Leg cramps Loss of hearing Lung cancer Migraine headache Migraines Obstructive sleep apnea On home oxygen therapy Osteoarthritis Pneumonia Restless legs Sleep apnea Uses wheelchair Vitamin D deficiency Walker as ambulation aid Wears glasses Home Medications cholecalciferol (vitamin D3) 1,250 mcg (50,000 unit) capsule 50,000 unit PO SUWE@0800 SUPPLEMENT 06/01/17 [History Last Taken 05/22/22] albuterol sulfate 90 mcg/actuation aerosol inhaler (ProAir HFA) 2 puff inhalation Q6H PRN PRN Dyspnea/Wheezing/Sob 03/25/18 [History Last Taken 05/22/22] fluticasone furoate 200 mcg-vilanterol 25 mcg/dose inhalation powder (Cindy Abad mining captain) 2 inh inhalation DAILY sob 12/09/21 [History Last Taken 05/22/22] insulin regular hum U-500 conc 500 unit/mL(3 mL) subcut pen (Humulin R U-500 (Conc) Insulin Kwikpen) 65 unit subcut DAILY diabetes 12/09/21 [History Last Taken 05/22/22] nadolol 40 mg tablet 40 mg PO DAILY heart 12/09/21 [History Last Taken 05/22/22] paroxetine HCl 40 mg tablet (Paxil) 40 mg PO DAILY mood 12/09/21 [History Last Taken 05/22/22] nystatin 100,000 unit/gram topical powder (Nyamyc) 1 applic topical BID #0 grams 12/30/21 [Rx Last Taken Unknown] guaifenesin 1,200 mg tablet, extended release 12 hr (Mucus Relief ER) 600 mg PO BID sputum 03/03/22 [History Last Taken 05/22/22] potassium chloride 10 mEq tablet,extended release 10 meq PO DAILY supplement 03/03/22 [History Last Taken 05/22/22] pramipexole 0.5 mg tablet (Mirapex) 0.5 mg PO QPM restless legs 03/03/22 [History Last Taken 05/22/22] rosuvastatin 20 mg tablet 20 mg PO DAILY a 03/03/22 [History Last Taken 05/22/22] prednisone 10 mg tablet 10 mg PO DAILY steroid 03/18/22 [History Last Taken 05/22/22] apixaban 5 mg tablet (Eliquis) 5 mg PO BID Check with primary doctor 03/26/22 [History Last Taken 05/20/22] amiodarone 100 mg tablet (Pacerone) 100 mg PO BID heart 04/22/22 [History Last Taken 05/22/22] furosemide 40 mg tablet 40 mg PO DAILY water pill 04/22/22 [History Last Taken 05/22/22] ipratropium bromide 0.02 % solution for inhalation 2.5 ml inhalation Q8H PRN shortness of breath or wheezing #75 mL 04/22/22 [Rx Last Taken 05/22/22] Allergy/AdvReac Type Severity Reaction Status Date / Time adhesive tape Allergy tears skin Verified 03/23/22 07:49 cefadroxil [From Duricef] Allergy Unknown Verified 03/23/22 07:49 gluten Allergy celiac Verified 03/23/22 07:49 disease mesalamine [From Asacol] Allergy Unknown Verified 03/23/22 07:49 omalizumab [From Xolair] Allergy Unknown Verified 03/23/22 07:49 Sulfa (Sulfonamide Allergy swelling Verified 03/23/22 07:49 Antibiotics) as an infant oxycodone AdvReac Vomiting Verified 03/23/22 07:49 Family History Father Cancer Myocardial infarction Mother Cancer Metastatic breast CA Surgical History H/O rectocele repair History of lymph node dissection of right axilla History of mastectomy History of partial hysterectomy Hx of bilateral cataract extraction Hx of carpal tunnel repair Social History household members: spouse Smoking Status: Former smoker how long ago did patient quit smoking: Smoked x 2 years 1/2 ppd, quit ~ 50 years prior. alcohol intake: never substance use type: does not use ROS ROS Narrative See HPI Physical Exam Const alert, oriented x3 and no apparent distress Constitutional Narrative: Opens eyes and shakes head briefly with stimulation. BiPAP mask in place General Appearance: lethargic HEENT normocephalic and head/scalp atraumatic Eyes PERRL and EOMs intact bilaterally Eyes Narrative: Slight scleral injection Neck full ROM Resp Resp Narrative: Frequent coughing with deep inhalation on BiPAP Effort and Inspection: tachypneic Auscultation: rhonchi right lower and diminished lung sounds; Negative for wheezes Percussion: dullness Upper: right Cardio S1 normal heart sound, S2 normal heart sound, no murmurs, no rub and no gallops Cardio Narrative: Coarse breath sounds complicate cardiac auscultation Rate: tachycardic GI soft to palpation, non-tender and non-distended Extremity General Extremity: edema Skin no rashes or lesions noted Neuro CN's II-XII intact bilaterally and moves all extremities Psych Mood & Affect: labile affect Medical Records Data Medical records narrative: Patient with original bronchoscopy in July 2021. Multiple x-rays were reviewed. Patient has had significant right upper lobe collapse for several months, but new chest x-ray shows the development of right lower lobe infiltrates. Lab / Micro Data Attestation: I reviewed the patient's lab results. Lab results narrative: Patient does have a history of Pseudomonas resistant to ciprofloxacin and Lev aquin multiple times in the past Result Diagrams: 05/26/22 07:55 05/26/22 07:55 Labs: Laboratory Results - last 24 hr 05/23/22 10:10: Diff Path Review Reviewed 05/24/22 05:40: Diff Path Review Reviewed 05/25/22 12:02: Absolute Neuts (auto) 11.1 H, Absolute Lymphs (auto) 0.40 L, Total Counted 100, Neutrophils % (Manual) 74 H, Band Neutrophils % 5, Lymphocytes % (Manual) 3 L, Monocytes % (Manual) 10, Basophils % (Manual) 1, Metamyelocytes % 4 H, Myelocytes % 3 H, Diff Path Review May , Platelet Estimate ADEQUATE, RBC Morphology NORM C+C 05/25/22 12:02: Sodium 133 L, Potassium 3.2 L, Chloride 99, Carbon Dioxide 26.0, Anion Gap 8, BUN 14, Creatinine 1.21 H, Estim Creat Clear Calc 33.23, Est GFR (MDRD) Af Amer 56 L, Est GFR (MDRD) Non-Af 46 L, BUN/Creatinine Ratio 11.6, Glucose 243 H, Calcium 8.6 05/25/22 15:52: POC Glucose 173 H 05/25/22 16:08: Vancomycin Trough 18.9 H 05/25/22 20:34: POC Glucose 166 H 05/26/22 06:06: POC Glucose 175 H 05/26/22 07:55: WBC 21.2 H, RBC 3.22 L, Hgb 8.5 L, Hct 27.1 L, MCV 84.2, MCH 26.4 L, MCHC 31.4 L D, RDW Std Deviation 52.9 H, RDW Coeff of Aniceto 17.4 H, Plt Count 374, MPV 9.4, Neut % (Auto) Not Reportable, Absolute Neuts (auto) 18.1 H, Absolute Lymphs (auto) 0.84, Total Counted 100, Neutrophils % (Manual) 79 H, Band Neutrophils % 7 H, Lymphocytes % (Manual) 4 L, Monocytes % (Manual) 8, Myelocytes % 2 H, Diff Path Review May foll, Dohle Bodies 7, Platelet Estimate ADEQUATE, Hypochromasia 2+, Anisocytosis 2+ 05/26/22 07:55: Sodium 137, Potassium 3.5, Chloride 101, Carbon Dioxide 28.0, Anion Gap 8, BUN 13, Creatinine 1.53 H, Estim Creat Clear Calc 26.28, Est GFR (MDRD) Af Amer 43 L, Est GFR (MDRD) Non-Af 35 L, BUN/Creatinine Ratio 8.5 L, Glucose 195 H, Calcium 8.8 05/26/22 11:18: POC Glucose 197 H Micro: Microbiology 05/23/22 12:25 Urine, Clean Catch Urine Culture - Final Mixed Gram Positive Organisms Radiology Impression Chest X-Ray 05/25/22 15:08 IMPRESSION: Opacification of the right upper lobe. Progressive infiltration in the right lower lobe. Increased markings in the left upper lobe. Electronically Signed: Salazar Garcia MD at 15:36 EST , Charges/Coding Visit Charges Inpatient E&M: 24074 Init Hosp L3
[2022-05-26 13:41] LABS: Pathologist Review Reviewed
[2022-05-26] MEDS: guaiFENesin 1,200 MG Tablet 1200 MG PO ×2 (13:49→20:24)
[2022-05-26 13:51] LABS: Pathologist Review Reviewed
--- NOTE | 2022-05-26 14:03 | CASEMGMT ---
Social Work SW called pt daughter, Santa, to inform of consultation of Infectious Disease and Pulmonary doctors. Santa expressed gratitude for the update and shared pt's own Pulm. would be contacting [facility] to discuss and collaborate on pt's treatment plan. Santa also requested a call from Dr. Serna. ROMI updated Dr. Serna of the request via Backline. ROMI attempted to collaborate with Santa on pt discharge plan. Santa declined, stated would not be interested in creating a plan at this time until all medical concerns are taken care of. ROMI asked if Santa would be willing to receive a list of SNF providers including quality and resource use data and consistent with the patient?s preferred geographic region, medical needs, and insurance network were provided from the [employer] in the event that pt would need SNF at discharge. Santa once again declined receiving list. Santa shared is well aware of which SNFs are in network and that Santa would update ROMI with a choice when/if Santa feels it is necessary. PLAN: MICHAEL Laurent
[2022-05-26 17:11] LABS: Bedside Glucose 159 mg/dL (74-106)
[2022-05-26] MEDS: Tobramycin 80 MG/2 ML Vial 300 MG INHALATION (19:26)
[2022-05-26 20:05] LABS: Allen Test Positive; Base Excess 1 mmol/L (-2 to +2); Bicarbonate 24.8 mmol/L (22-26); Blood Gas Specimen Type ART; FI02 30; Mode NIV; PO2 65 mmHG (75-100); SITE R Radial; SO2 93 % (95-99); Total Carbon Dioxide 26 mmol/L; pCO2 35.7 mmHg (35-45); pH 7.45 (7.35-7.45)
[2022-05-26] MEDS: Atorvastatin Calcium 40 MG Tablet PO (20:24)
[2022-05-26] MEDS: Pramipexole Di-HCl 0.5 MG Tablet PO (20:24)
[2022-05-26] MEDS: Acetaminophen 325 MG Tablet 650 MG PO (20:28)
[2022-05-26 21:26] LABS: Bedside Glucose 192 mg/dL (74-106)
[2022-05-27] VITALS (15 sets, daily range): BP systolic 105–122; BP diastolic 50–80; PULSE 57–70; RESP 14–32; TEMP 36.6–37.1; O2SAT 94–100
[2022-05-27 04:40] LABS: Hematocrit 27.5 % (37-47); Hemoglobin 8.2 g/dL (12.0-15.0); Mean Corp Hgb Conc 29.8 g/dL (32-36); Mean Corpuscular Volume 83.8 fL (81-99); Mean Platelet Vol. 9.4 fl (6.2-12.0); POSITIVE COUNT YES; POSITIVE DIFFERENTIAL YES; POSITIVE MORPHOLOGY YES; Platelet Count 327 K/mm3 (150-450); RBC Distribution Width CV 17.3 % (11.6-14.6); RBC Distribution Width SD 52.7 fl (35.1-43.9); Red Blood Count 3.28 M/mm3 (4.2-5.4); White Blood Count 24.5 K/mm3 (4.4-11.0)
[2022-05-27 04:42] LABS: Differential Indicated MANUAL DIFF
[2022-05-27 05:02] LABS: Metamyelocyte 3 % (0-1); Monocyte 2 % (0-10); Neutrophil-Band 3 % (0-5); Neutrophil-Segmented 92 % (47-70); Total Cells Counted 100 (MANUAL DIFF)
[2022-05-27 05:03] LABS: Absolute Lymphocyte Count 0.49 X10^3/uL (0.83-4.51); Lymphocyte # 0.49 X10^3/ul (0.83-4.51); Neutrophil # 23.99 X10^3/uL (2.7-7.7)
[2022-05-27 05:04] LABS: Platelet Estimate ADEQUATE (ADEQ); Polychromasia 1+
[2022-05-27 05:06] LABS: Anisocytosis 2+; Microcytosis 1+
[2022-05-27 05:08] LABS: ALB/GLOB Ratio 0.3 RATIO (0.9-2.4); AST(SGOT) 12 U/L (15-37); Alanine Aminotransfer ALT/SGPT 15 U/L (13-56); Albumin, Serum 1.5 g/dL (3.2-5.0); Alkaline Phosphatase 131 U/L (45-117); Anion Gap 6 (5-15); BUN 22 mg/dL (7-18); BUN/Creat Ratio 10.4 RATIO (10-20); Chloride 101 mmol/L (98-107); Creatinine, Serum 2.11 mg/dL (0.55-1.02); EST Glomerular Filtration Rate 24 mL/min (>60); Est Glom Filt Rate - Afr Amer 29 mL/min (>60); Estimated Creatinine Clearance 19.06 ml/min; Globulin 4.7 g/dL (2.2-4.2); Glucose 282 mg/dL (74-106); Protein, Total 6.2 g/dL (6.4-8.2); Sodium Level 136 mmol/L (136-145)
[2022-05-27 05:21] LABS: Vancomycin, Trough Level 27.5 ug/mL (5.0-15.0)
[2022-05-27] MEDS: Insulin Lispro 100 UNIT/ML INSULN.PEN SC ×3 (05:26→16:53)
--- NOTE | 2022-05-27 05:33 | NURSING ---
current dose of vanco stopped per pharmacy request
--- NOTE | 2022-05-27 05:40 | PCM.RX.CS ---
Consult Pharmacy has been consulted to manage selected antiobiotic: Vancomycin Type of Consult: Follow-up Labs: Sodium 136 mmol/L (136-145) 05/27/22 04:31 Potassium 4.0 mmol/L (3.5-5.1) 05/27/22 04:31 Chloride 101 mmol/L (98-107) 05/27/22 04:31 Carbon Dioxide 29.0 mmol/L (21.0-32.0) 05/27/22 04:31 Anion Gap 6 (5-15) 05/27/22 04:31 BUN 22 mg/dL (7-18) H 05/27/22 04:31 Creatinine 2.11 mg/dL (0.55-1.02) H 05/27/22 04:31 Est GFR (MDRD) Af Amer 29 mL/min (>60) L 05/27/22 04:31 Est GFR (MDRD) Non-Af 24 mL/min (>60) L 05/27/22 04:31 BUN/Creatinine Ratio 10.4 RATIO (10-20) 05/27/22 04:31 Glucose 282 mg/dL (74-106) H 05/27/22 04:31 Vancomycin Trough 27.5 ug/mL (5.0-15.0) H 05/27/22 04:31 Microbiology: Microbiology 05/23/22 12:25 Urine, Clean Catch Urine Culture - Final Mixed Gram Positive Organisms 05/23/22 15:30 Mucosa - Nasopharyngeal Respiratory Panel (PCR) - Final 05/23/22 12:25 Urine Catheter - Catheter Legionella Antigen - Final 05/23/22 12:25 Urine Catheter - Catheter Streptococcus pneumoniae Antigen (M - Final 05/23/22 10:48 Nasal Secretion SARS-CoV-2 & FLU Antigen (Rapid) - Final Pharmacy Plan for Drug Dosing: Pharmacy Service will continue to monitor and adjust dosing as required. TROUGH 27.5 @ 12 HOURS. DOSE STARTED, STOPPED AFTER 15 MINUTES. DRAW RANDOM TROUGH IN 12 HOURS Follow-Up Labs: Trough Vancomycin Labs to be done on [date and time ordered]: 05/27 @ 1630 RANDOM
[2022-05-27 06:25] LABS: Bedside Glucose 264 mg/dL (74-106)
[2022-05-27] MEDS: Ipratropium/Albuterol Sulfate 3 ML AMPUL.NEB INHALATION ×4 (07:24→20:30)
[2022-05-27] MEDS: Paroxetine 20 MG Tablet 40 MG PO (09:33)
[2022-05-27] MEDS: Nystatin Powder 15gm Bottle 1 APPLIC TOPICAL ×2 (09:34→22:17)
[2022-05-27] MEDS: guaiFENesin 1,200 MG Tablet 1200 MG PO ×2 (09:34→22:06)
[2022-05-27] MEDS: Nadolol 40 MG Tablet PO (09:34)
[2022-05-27] MEDS: APIXABAN 5 MG TABLET PO ×2 (09:35→22:06)
[2022-05-27] MEDS: Amiodarone 200 MG Tablet 100 MG PO ×2 (09:35→16:54)
--- NOTE | 2022-05-27 09:53 | PN.HOSP_ITS ---
Subjective Subjective Follow-up for complicated pneumonia postoperative with lung cancer Shortness of breath slightly better than yesterday. Patient was able to get off the BiPAP in the morning on 4 L of oxygen. Objective Data Objective Data Vital Signs: Vital Signs Temp Pulse Resp BP Pulse Ox O2 Del Method O2 Flow Rate 98.8 F 70 26 H 122/50 H 95 Bi-pap 3 05/27/22 05:19 05/27/22 07:15 05/27/22 07:15 05/27/22 05:19 05/27/22 07:15 05/27/22 05:19 05/26/22 09:22 FiO2 40 05/27/22 07:15 Oxygen Flow Rate (L/min) 3 Oxygen Delivery Method Bi-pap Weight: 294 lb 4.8 oz Body Mass Index (BMI) 51.3 Intake & Output: Intake and Output for Last 24 Hours 05/25/22 05/26/22 05/27/22 23:59 23:59 23:59 Intake Total 1810 / 2110 1910 / 2310 875 / 875 Output Total 1525 / 1525 1150 / 1450 500 / 500 Balance 285 / 585 760 / 860 375 / 375 Lab / Micro Data Result Diagrams: 05/27/22 04:31 05/27/22 04:31 Labs: Laboratory Results - last 24 hr 05/25/22 12:02: Diff Path Review Reviewed 05/26/22 06:06: POC Glucose 175 H 05/26/22 07:55: Absolute Neuts (auto) 18.1 H, Absolute Lymphs (auto) 0.84, Total Counted 100, Neutrophils % (Manual) 79 H, Band Neutrophils % 7 H, Lymphocytes % (Manual) 4 L, Monocytes % (Manual) 8, Myelocytes % 2 H, Diff Path Review Reviewed, Dohle Bodies 7, Platelet Estimate ADEQUATE, Hypochromasia 2+, Anisocytosis 2+ 05/26/22 11:18: POC Glucose 197 H 05/26/22 16:37: POC Glucose 159 H 05/26/22 20:26: POC Glucose 192 H 05/27/22 04:31: WBC 24.5 H, RBC 3.28 L, Hgb 8.2 L, Hct 27.5 L, MCV 83.8, MCH 25.0 L, MCHC 29.8 L D, RDW Std Deviation 52.7 H, RDW Coeff of Aniceto 17.3 H, Plt Count 327, MPV 9.4, Neut % (Auto) Not Reportable, Absolute Neuts (auto) 24.0 H, Absolute Lymphs (auto) 0.49 L, Total Counted 100, Neutrophils % (Manual) 92 H, Band Neutrophils % 3, Monocytes % (Manual) 2, Metamyelocytes % 3 H, Diff Path Review May foll, Platelet Estimate ADEQUATE, Polychromasia 1+, Anisocytosis 2+, Microcytosis 1+ 05/27/22 04:31: Sodium 136, Potassium 4.0, Chloride 101, Carbon Dioxide 29.0, Anion Gap 6, BUN 22 H, Creatinine 2.11 H, Estim Creat Clear Calc 19.06, Est GFR (MDRD) Af Amer 29 L, Est GFR (MDRD) Non-Af 24 L, BUN/Creatinine Ratio 10.4, Glucose 282 H, Calcium 9.0, Total Bilirubin 0.50, AST 12 L, ALT 15, Alkaline Phosphatase 131 H, Total Protein 6.2 L, Albumin 1.5 L, Globulin 4.7 H, Albumin/Globulin Ratio 0.3 L 05/27/22 04:31: Vancomycin Trough 27.5 H 05/27/22 05:22: POC Glucose 264 H Micro: Microbiology 05/23/22 12:25 Urine, Clean Catch Urine Culture - Final Mixed Gram Positive Organisms 05/23/22 15:30 Mucosa - Nasopharyngeal Respiratory Panel (PCR) - Final 05/23/22 12:25 Urine Catheter - Catheter Legionella Antigen - Final 05/23/22 12:25 Urine Catheter - Catheter Streptococcus pneumoniae Antigen (M - Final 05/23/22 10:48 Nasal Secretion SARS-CoV-2 & FLU Antigen (Rapid) - Final ABG Data ABG results: ABG 05/26/22 20:02 Specimen Type ART Sample Site R Radial pH 7.45 Bicarbonate Actual 24.8 Total CO2 26 Base Excess 1 O2 Saturation 93 L O2 % 30 ABG pCO2 35.7 ABG pO2 65 L Vamsi Test Positive Vent Mode NIV Physical Exam Narrative Physical exam General: Alert, Oriented x3, Cooperative, morbid obesity 52.4 kg/m?. HEENT: Atraumatic, PERRLA, EOMI, Normocephalic Oral: On BiPAP. Neck: Supple, No JVD, Negative Carotid Bruits Lungs: Air entry severely diminished in right lung, right lung whiteout. On nasal cannula. Then patient was put on BiPAP Cardiovascular: Regular rate, Regular Rhythm, Normal S1, Normal S2, systolic murmur present LLSB Abdomen: Bowel Sounds Present, Soft, Non Tender, Non-Distended : No renal angle tenderness. No suprapubic tenderness. Extremities: Bilateral 1+ pitting edema, Capillary Refill Less than 3 Seconds Skin: No rashes, No breakdown Musculoskeletal: ROM restricted at hip and knee joints. Muscle strength 4/5 at hip knee and ankle joints. Neurological: Cranial nerves II-XII grossly intact, DTR 2+/4. No acute focal deficit Psych/Mental Status: Flat affect. Assessment & Plan Assessment/Plan (1) Pneumonia: PLAN: Plan This is 76-year-old female was admitted for shortness of breath, in creased cough fatigue, weakness, nausea vomiting after chemotherapy 2 weeks ago. 1. Complicated multifocal multilobular pneumonia: CT chest was done in ED and compared with the previous CT chest of March 2022. It shows mild decrease of mass/consolidation in the right upper lobe, superior segment of right lower lobe and left upper lobe although to me it looks not significant decrease. He also suspicion of increased progression of metastasis with increase in the size of left lower lobe pulmonary nodule. New patchy opacity left upper lobe concerning for pneumonia/metastasis. Patient is being admitted on MedSurg floor. Started on IV antibiotics vancomycin and Zosyn. Patient does not have true allergy with cefadroxil as she had multiple times cefazolin and Zosyn and cefepime. Pneumo efrain work-up ordered. Continue bronchodilator every 6 hourly, incentive spirometry, Pep. 05/27: Preliminary sputum culture this time shows 3+ gram-positive rods and 3+ GPC. A previous sputum culture in December 2021x2 shows Pseudomonas rare growth and rare Briana albicans. His BAL on June 2021 also showed Pseudomonas. It is resistant to fluoroquinolones but sensitive to gentamicin and Zosyn. Dr. Watters called me yesterday and asked for double antipseudomonal coverage. Patient already on Zosyn. He recommended tobramycin IV which ID did not agree because of high toxicity profile. After that, tobramycin 300 mg elation 1 dose was tried and patient felt better in the morning and could get off BiPAP for some time. Yesterday had a long telephone call with patient's power of manager acute for health, Mrs. [place], she is out of [place]. We discussed her prolonged illness with lung cancer, chemotherapy and radiotherapy and recurrent Pseudomonas infection in NovemberDecember 2021. She was also admitted in March and December 2021. She had bronchoscopy by Dr. Watters in June 2021 showed right upper lobe pneumonia and BAL culture as mentioned above. Discussed with the pharmacist and ID and started on tobramycin 300 mg nebulization twice daily for 7 days. I also discussed with bulk loader. 2. Chemotherapeutic adverse effect including loss of appetite, nausea, vomiting and diarrhea: Diarrhea has improved. Needs to be aggressive rehydration. Urine output was dark and yellow in ED. Patient treated adequately rehydrated. 3. Chronic hypoxic and hypercarbic respiratory failure probably due to obesity hypoventilation syndrome complicated with pneumonia and lung cancer: Patient on 4 L of oxygen at at home 28/12 and he wears BiPAP at night. 4. Stage III NSCLC: Patient currently undergoing chemotherapy. Patient had radiotherapy. She follows Dr. Dan. 5. Paroxysmal A. fib on amiodarone, nadolol and Eliquis: Continued. 6. Fall, generalized weakness failure to thrive: CT head and CT C-spine was done which did not show any acute abnormality. 7. Hypertension: On nadolol. 8. Diabetes mellitus type II: Accu-Cheks and cover with Humalog sliding scale. Patient on scheduled insulin as per home dose and will titrate as per Accu-Cheks 9. Anxiety and depression: Patient has ADHD. On methylphenidate and Paxil. 10. DORY/OSH on BiPAP at night 11. VTE prophylaxis on Eliquis Total time of the visit including total time spent in counseling or coordination of care, (more than 50% of the total time, spent in obtaining medical information from nurses and other ancillary care providers,explaining to the patient about labs, imaging, diagnosis and management of active complex medical conditions), discussion with ID and bulk loader and daughter, review of labs and imaging is 50 minutes. Microbiology Past 72 Hours 05/26/22 18:20 Sputum, Expectorated/Coughed Gram Stain - Final 05/26/22 18:20 Sputum, Expectorated/Coughed Respiratory Culture - Preliminary Appears to be normal respiratory mary. Further studies to follow. 05/23/22 12:25 Urine, Clean Catch Urine Culture - Final Mixed Gram Positive Organisms Laboratory Results 05/26/22 16:37: POC Glucose 159 H 05/26/22 20:02: Specimen Type ART, Sample Site R Radial, pH 7.45, Bicarbonate Actual 24.8, Total CO2 26, Base Excess 1, O2 Saturation 93 L, O2 % 30, ABG pCO2 35.7, ABG pO2 65 L, Vamsi Test Positive, Vent Mode NIV 05/26/22 20:26: POC Glucose 192 H 05/27/22 04:31: WBC 24.5 H, RBC 3.28 L, Hgb 8.2 L, Hct 27.5 L, MCV 83.8, MCH 25.0 L, MCHC 29.8 L D, RDW Std Deviation 52.7 H, RDW Coeff of Aniceto 17.3 H, Plt Count 327, MPV 9.4, Neut % (Auto) Not Reportable, Absolute Neuts (auto) 24.0 H, Absolute Lymphs (auto) 0.49 L, Total Counted 100, Neutrophils % (Manual) 92 H, Band Neutrophils % 3, Monocytes % (Manual) 2, Metamyelocytes % 3 H, Diff Path Review May foll, Platelet Estimate ADEQUATE, Polychromasia 1+, Anisocytosis 2+, Microcytosis 1+ 05/27/22 04:31: Sodium 136, Potassium 4.0, Chloride 101, Carbon Dioxide 29.0, Anion Gap 6, BUN 22 H, Creatinine 2.11 H, Estim Creat Clear Calc 19.06, Est GFR (MDRD) Af Amer 29 L, Est GFR (MDRD) Non-Af 24 L, BUN/Creatinine Ratio 10.4, Glucose 282 H, Calcium 9.0, Total Bilirubin 0.50, AST 12 L, ALT 15, Alkaline Phosphatase 131 H, Total Protein 6.2 L, Albumin 1.5 L, Globulin 4.7 H, Albumin/Globulin Ratio 0.3 L 05/27/22 04:31: Vancomycin Trough 27.5 H 05/27/22 05:22: POC Glucose 264 H 05/27/22 11:26: POC Glucose 326 H Living will/advanced directive/end of life care: Patient does have living will or advanced directive. His power of manager acute is daughter, Mrs. Pratt. After discussion of benefits/risks procedures involved with full code, DNR CC arrest and DNR CC, the patient very well knows that she is DNR CC arrest. Patient doesn't want artificial life support including intubation, tube feed, ventilator and/chest compression, central venous catheter, vasopressor and DC shock if needed but she is okay with BiPAP or CPAP Clinical Impression(s) from Imaging Studies Chest X-Ray 05/23/22 10:17 IMPRESSION: No significant interval change. Brain CT 05/23/22 10:34 IMPRESSION: No acute intracranial process identified. Chronic involutional and white matter changes. Severe chronic maxillary sinusitis. Chest CT 05/23/22 10:34 IMPRESSION: Mildly decreased size of masses or consolidation in the right upper lobe, superior segment of the right lower lobe, and left upper lobe. New spiculated nodular opacities scattered in the right lung and new patchy opacity in the left upper lobe, which may represent new regions of pneumonia or metastasis. Increased size of left lower lobe pulmonary nodule concerning for progression of metastasis. Cervical Spine CT 05/23/22 10:37 IMPRESSION: No evidence of acute cervical spinal fracture or dislocation. Multilevel degenerative change. Charges/Coding Visit Charges Inpatient E&M: 18555 Subs Hosp L3
--- NOTE | 2022-05-27 10:09 | PCM.PN.INT ---
Assessment & Plan Assessment/Plan (1) Pneumonia: (2) Cancer: (3) Sleep apnea: QUALIFIERS: Sleep apnea type: obstructive Qualified Code(s): G47.33 - Obstructive sleep apnea (adult) (pediatric) PLAN: Plan RECOMMENDATIONS: 1. Agree with Zosyn. Likely okay to discontinue vancomycin 2. Defer antibiotics to infectious disease 3. May need to hold on diuresis for now 4. BiPAP rescue during the day and with sleep 5. Consider discussion about goals of therapy 6. No bronchoscopy at this time. Continue mucolytic IMPRESSIONS: 1. Complicated multilobar pneumonia in the setting of lung cancer and chemotherapy Patient appears to have an element of postobstructive pneumonia multiple times in the right upper lobe. However, patient currently has right middle and right lower lobe infiltrates. Patient has grown multidrug-resistant Pseudomonas in the past, so agree with vancomycin and Zosyn pending cultures. Okay to use BiPAP intermittently during the day for rescue. Patient should continue on BiPAP with sleep. We will need to monitor blood sugars closely given steroid therapy. Patient would likely benefit from aggressive pulmonary toileting, but does not appear to be open to Acapella at this time. Vest therapy for pulmonary toileting has been initiated. Doubt patient will require double coverage as Zosyn sensitivity was noted previously and patient is improving 2. Debility secondary to chemotherapeutic adverse effects and radiation Patient with significant GI complications associated with chemotherapy. Dr. Crouch has been following and counts appear to be adequate at this time. No indication for transfusion. 3. Paroxysmal A. fib/diabetes mellitus/morbid obesity/anxiety/depression/DORY Complicates care, management, recovery and prognosis. Patient appears to be using BiPAP appropriately. May need to hold Eliquis therapy if intervention is planned. Would recommend confirming CODE STATUS given marginal respiratory reserve in the setting of advanced cancer. Patient did not appear to be up to this today during my evaluation. Patient does appear to have baseline collapse of the right upper lobe, minimizing reserve. Subjective Subjective Patient was off of BiPAP during my evaluation. Patient appears to be much more appropriate, but still having conversational dyspnea. Patient was asking to go back on BiPAP, but was able to get some breakfast. Patient denied any chest pain, but did have a cough with intermittent production. Objective Data Objective Data Vital Signs: Vital Signs Temp Pulse Resp BP Pulse Ox O2 Del Method O2 Flow Rate 37.1 C 70 26 H 122/50 H 95 Bi-pap 3 05/27/22 05:19 05/27/22 07:15 05/27/22 07:15 05/27/22 05:19 05/27/22 07:15 05/27/22 05:19 05/26/22 09:22 FiO2 40 05/27/22 07:15 Oxygen Flow Rate (L/min) 3 Oxygen Delivery Method Bi-pap Weight: 133.492 kg Body Mass Index (BMI) 51.3 Intake & Output: Intake and Output for Last 24 Hours 05/25/22 05/26/22 05/27/22 23:59 23:59 23:59 Intake Total 1810 / 2110 1910 / 2310 875 / 875 Output Total 1525 / 1525 1150 / 1450 500 / 500 Balance 285 / 585 760 / 860 375 / 375 Lab / Micro Data Attestation: I reviewed the patient's lab results. Result Diagrams: 05/27/22 04:31 05/27/22 04:31 Labs: Laboratory Results - last 24 hr 05/25/22 12:02: Diff Path Review Reviewed 05/26/22 06:06: POC Glucose 175 H 05/26/22 07:55: Absolute Neuts (auto) 18.1 H, Absolute Lymphs (auto) 0.84, Total Counted 100, Neutrophils % (Manual) 79 H, Band Neutrophils % 7 H, Lymphocytes % (Manual) 4 L, Monocytes % (Manual) 8, Myelocytes % 2 H, Diff Path Review Reviewed, Dohle Bodies 7, Platelet Estimate ADEQUATE, Hypochromasia 2+, Anisocytosis 2+ 05/26/22 11:18: POC Glucose 197 H 05/26/22 16:37: POC Glucose 159 H 05/26/22 20:26: POC Glucose 192 H 05/27/22 04:31: WBC 24.5 H, RBC 3.28 L, Hgb 8.2 L, Hct 27.5 L, MCV 83.8, MCH 25.0 L, MCHC 29.8 L D, RDW Std Deviation 52.7 H, RDW Coeff of Aniceto 17.3 H, Plt Count 327, MPV 9.4, Neut % (Auto) Not Reportable, Absolute Neuts (auto) 24.0 H, Absolute Lymphs (auto) 0.49 L, Total Counted 100, Neutrophils % (Manual) 92 H, Band Neutrophils % 3, Monocytes % (Manual) 2, Metamyelocytes % 3 H, Diff Path Review May , Platelet Estimate ADEQUATE, Polychromasia 1+, Anisocytosis 2+, Microcytosis 1+ 05/27/22 04:31: Sodium 136, Potassium 4.0, Chloride 101, Carbon Dioxide 29.0, Anion Gap 6, BUN 22 H, Creatinine 2.11 H, Estim Creat Clear Calc 19.06, Est GFR (MDRD) Af Amer 29 L, Est GFR (MDRD) Non-Af 24 L, BUN/Creatinine Ratio 10.4, Glucose 282 H, Calcium 9.0, Total Bilirubin 0.50, AST 12 L, ALT 15, Alkaline Phosphatase 131 H, Total Protein 6.2 L, Albumin 1.5 L, Globulin 4.7 H, Albumin/Globulin Ratio 0.3 L 05/27/22 04:31: Vancomycin Trough 27.5 H 05/27/22 05:22: POC Glucose 264 H Micro: Microbiology 05/23/22 12:25 Urine, Clean Catch Urine Culture - Final Mixed Gram Positive Organisms 05/23/22 15:30 Mucosa - Nasopharyngeal Respiratory Panel (PCR) - Final 05/23/22 12:25 Urine Catheter - Catheter Legionella Antigen - Final 05/23/22 12:25 Urine Catheter - Catheter Streptococcus pneumoniae Antigen (M - Final 05/23/22 10:48 Nasal Secretion SARS-CoV-2 & FLU Antigen (Rapid) - Final ABG Data ABG results: ABG 05/26/22 20:02 Specimen Type ART Sample Site R Radial pH 7.45 Bicarbonate Actual 24.8 Total CO2 26 Base Excess 1 O2 Saturation 93 L O2 % 30 ABG pCO2 35.7 ABG pO2 65 L Vamsi Test Positive Vent Mode NIV Attestation: I personally reviewed and interpreted this ABG as follows: (Mild respiratory alkalosis with increased AA gradient) Physical Exam Const alert and oriented x3 Constitutional Narrative: More interactive today. Patient on nasal cannula, but still with conversational dyspnea General Appearance: in distress Positive for mild (With talking) HEENT normocephalic and head/scalp atraumatic Eyes PERRL, EOMs intact bilaterally and no scleral icterus Neck full ROM Resp Resp Narrative: Still coughing with deep inhalation Effort and Inspection: actively coughing; Negative for uses accessory muscles Auscultation: rhonchi right lower and diminished lung sounds; Negative for wheezes Percussion: dullness Upper: right Cardio S1 normal heart sound, S2 normal heart sound, no murmurs, no rub and no gallops Cardio Narrative: Coarse breath sounds complicate cardiac auscultation Rate: tachycardic GI soft to palpation, non-tender and non-distended Extremity General Extremity: edema Skin no rashes or lesions noted Neuro CN's II-XII intact bilaterally and moves all extremities Psych Mood & Affect: labile affect Charges/Coding Visit Charges Inpatient E&M: 22956 Subs Hosp L3
[2022-05-27 11:51] LABS: Bedside Glucose 326 mg/dL (74-106)
[2022-05-27 15:33] LABS: Pathologist Review Reviewed
--- NOTE | 2022-05-27 16:13 | PCM.PN.ID ---
Physical Exam Narrative Feeling a little better, less dyspnea, no sputum, no fever Const alert and no apparent distress Resp Auscultation: diminished lung sounds Cardio regular rate and regular rhythm GI soft to palpation, non-tender and non-distended Skin no rashes or lesions noted ID ID: Route of nutrition/ use of supplements: [] Nutritional Intake: [] IV Site: [] Hansen Catheter: [] Assessment & Plan Assessment/Plan (1) Pneumonia: PLAN: Multifocal pneumonia, recent chemo and radiation for NSCLC. Not producing sputum. Resp viral panel neg, UAgs neg. Fever improved. MRSA pcr neg. On empiric vanc/zosyn. Improving. Will stop vanc. Would avoid iv tobra given risk of toxicity and overall clinical improvement. Cxs neg so far. Will follow, d/w Dr. Gold (2) Cancer:
--- NOTE | 2022-05-27 17:14 | NURSING ---
no change from am assessment
[2022-05-27 17:15] LABS: Bedside Glucose 495 mg/dL (74-106)
[2022-05-27] MEDS: Tobramycin 80 MG/2 ML Vial 300 MG INHALATION (20:30)
[2022-05-27] MEDS: Acetaminophen 325 MG Tablet 650 MG PO (22:05)
[2022-05-27] MEDS: Pramipexole Di-HCl 0.5 MG Tablet PO (22:06)
[2022-05-27] MEDS: Atorvastatin Calcium 40 MG Tablet PO (22:06)
[2022-05-27 22:31] LABS: Bedside Glucose 482 mg/dL (74-106)
[2022-05-27] MEDS: Insulin Lispro 100 UNIT/ML INSULN.PEN 14 UNIT SC (22:49)
[2022-05-27 23:17] LABS: Glucose 585 mg/dL (74-106)
[2022-05-28] VITALS (16 sets, daily range): BP systolic 122–148; BP diastolic 47–82; PULSE 56–80; RESP 14–35; TEMP 36.3–36.6; O2SAT 95–100
[2022-05-28 05:35] LABS: Hematocrit 25.5 % (37-47); Hemoglobin 7.6 g/dL (12.0-15.0); Mean Corp Hgb Conc 29.8 g/dL (32-36); Mean Corpuscular Hgb 25.3 pg (27.0-32.0); Mean Platelet Vol. 9.6 fl (6.2-12.0); POSITIVE COUNT YES; POSITIVE DIFFERENTIAL YES; POSITIVE MORPHOLOGY YES; Platelet Count 347 K/mm3 (150-450); RBC Distribution Width CV 17.2 % (11.6-14.6); RBC Distribution Width SD 53.1 fl (35.1-43.9)
[2022-05-28 05:48] LABS: Differential Indicated MANUAL DIFF
[2022-05-28 06:03] LABS: ALB/GLOB Ratio 0.3 RATIO (0.9-2.4); AST(SGOT) 17 U/L (15-37); Alanine Aminotransfer ALT/SGPT 18 U/L (13-56); Albumin, Serum 1.5 g/dL (3.2-5.0); Alkaline Phosphatase 125 U/L (45-117); Anion Gap 7 (5-15); BUN 39 mg/dL (7-18); BUN/Creat Ratio 16.4 RATIO (10-20); Calcium,Total 9.1 mg/dL (8.5-10.1); Chloride 99 mmol/L (98-107); Creatinine, Serum 2.38 mg/dL (0.55-1.02); EST Glomerular Filtration Rate 21 mL/min (>60); Est Glom Filt Rate - Afr Amer 26 mL/min (>60); Estimated Creatinine Clearance 16.89 ml/min; Globulin 4.6 g/dL (2.2-4.2); Glucose 406 mg/dL (74-106); Protein, Total 6.1 g/dL (6.4-8.2); Sodium Level 134 mmol/L (136-145)
[2022-05-28] MEDS: Insulin Lispro 100 UNIT/ML INSULN.PEN SC ×3 (06:15→16:08)
[2022-05-28 06:34] LABS: Lymphocyte 2 % (19-41); Metamyelocyte 1 % (0-1); Monocyte 1 % (0-10); Myelocyte 1 % (0-0); Neutrophil-Band 6 % (0-5); Neutrophil-Segmented 89 % (47-70); Total Cells Counted 100 (MANUAL DIFF)
[2022-05-28 06:35] LABS: Absolute Lymphocyte Count 0.54 X10^3/uL (0.83-4.51); Absolute Neutrophil Count 26.2 X10^3/uL (2.0-7.7); Lymphocyte # 0.54 X10^3/ul (0.83-4.51); Platelet Estimate ADEQUATE (ADEQ)
[2022-05-28 06:35] LABS: Bedside Glucose 384 mg/dL (74-106)
[2022-05-28 06:36] LABS: Red Cell Morphology NORM C+C NORMAL (NORM C&C)
[2022-05-28] MEDS: Ipratropium/Albuterol Sulfate 3 ML AMPUL.NEB INHALATION ×4 (07:25→19:50)
[2022-05-28] MEDS: Tobramycin 80 MG/2 ML Vial 300 MG INHALATION ×2 (07:26→19:30)
[2022-05-28] MEDS: APIXABAN 5 MG TABLET PO ×2 (08:44→21:28)
[2022-05-28] MEDS: Paroxetine 20 MG Tablet 40 MG PO (08:45)
[2022-05-28] MEDS: guaiFENesin 1,200 MG Tablet 1200 MG PO ×2 (08:45→21:27)
[2022-05-28] MEDS: Amiodarone 200 MG Tablet 100 MG PO ×2 (08:45→16:07)
[2022-05-28] MEDS: Nadolol 40 MG Tablet PO (08:45)
[2022-05-28] MEDS: Nystatin Powder 15gm Bottle 1 APPLIC TOPICAL ×2 (08:47→21:26)
--- NOTE | 2022-05-28 10:44 | PCM.CONS.R ---
Assessment & Plan Assessment/Plan (1) Acute renal failure: PLAN: Creatinine up to 2.38 today from 0.99 on admission. Recent chemotherapy with pneumonia, bradycardia. Suspect prerenal. Check renal US r/o urinary retention, spot urine sodium, creatinine. Avoid nephrotoxins (2) Pneumonia: PLAN: antibiotics renal dosed. Ok to continue tobra inhalers. Doubt renal failure is from aminoglycoside induced ATN. 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 She was hospitalized back in March for pneumonia. She has a history of breast cancer twice, last one 8 years ago now with lung cancer on right with mets to lumbar spine. She has been on chemotherapy 2 weeks ago and received radiation on 04/21/2022. She is on oxygen at home and BiPAP at night. She uses a walker at home. Her [id number]-vyk helps at home. Consult for acute renal failure. Baseline creatinine 0.99 on admission on 05/23 progressed to 2.38 today. No recent IV contrast exposure. Blood pressure has been low but improved and HR slow in the 50-60s on beta blockers. She continues to have leukocytosis without fever. Appetite has been poor. Urine output has increased lately but inaccurate measurements. She has been having diarrhea. Denies nausea or vomiting. [facility] Medical History Acute and chronic respiratory failure with hypoxia Acute bronchitis due to Rhinovirus Acute severe exacerbation of asthma Allergic rhinitis Anemia Anxiety Aspiration pneumonitis Asthma Asthmatic bronchitis Atrial fibrillation Atrial fibrillation with RVR BiPAP (biphasic positive airway pressure) dependence Body mass index (BMI) 50-59.9, adult Breast cancer Cancer Chronic diarrhea Chronic respiratory failure with hypoxia Dependence on supplemental oxygen Depression Diabetes Diabetes mellitus, type II Former smoker Former tobacco use GERD (gastroesophageal reflux disease) Heartburn High cholesterol History of primary non-small cell carcinoma of right lung History of right breast cancer History of steroid therapy Hypertension Immunosuppressed due to chemotherapy Leg cramps Loss of hearing Lung cancer Migraine headache Migraines Obstructive sleep apnea On home oxygen therapy Osteoarthritis Pneumonia Restless legs Sleep apnea Uses wheelchair Vitamin D deficiency Walker as ambulation aid Wears glasses Home Medications cholecalciferol (vitamin D3) 1,250 mcg (50,000 unit) capsule 50,000 unit PO SUWE@0800 SUPPLEMENT 06/01/17 [History Last Taken 05/22/22] albuterol sulfate 90 mcg/actuation aerosol inhaler (ProAir HFA) 2 puff inhalation Q6H PRN PRN Dyspnea/Wheezing/Sob 03/25/18 [History Last Taken 05/22/22] fluticasone furoate 200 mcg-vilanterol 25 mcg/dose inhalation powder (Breo Ellipta) 2 inh inhalation DAILY sob 12/09/21 [History Last Taken 05/22/22] insulin regular hum U-500 conc 500 unit/mL(3 mL) subcut pen (Humulin R U-500 (Conc) Insulin Kwikpen) 65 unit subcut DAILY diabetes 12/09/21 [History Last Taken 05/22/22] nadolol 40 mg tablet 40 mg PO DAILY heart 12/09/21 [History Last Taken 05/22/22] paroxetine HCl 40 mg tablet (Paxil) 40 mg PO DAILY mood 12/09/21 [History Last Taken 05/22/22] nystatin 100,000 unit/gram topical powder (Nyamyc) 1 applic topical BID #0 grams 12/30/21 [Rx Last Taken Unknown] guaifenesin 1,200 mg tablet, extended release 12 hr (Mucus Relief ER) 600 mg PO BID sputum 03/03/22 [History Last Taken 05/22/22] potassium chloride 10 mEq tablet,extended release 10 meq PO DAILY supplement 03/03/22 [History Last Taken 05/22/22] pramipexole 0.5 mg tablet (Mirapex) 0.5 mg PO QPM restless legs 03/03/22 [History Last Taken 05/22/22] rosuvastatin 20 mg tablet 20 mg PO DAILY a 03/03/22 [History Last Taken 05/22/22] prednisone 10 mg tablet 10 mg PO DAILY steroid 03/18/22 [History Last Taken 05/22/22] apixaban 5 mg tablet (Eliquis) 5 mg PO BID Check with primary doctor 03/26/22 [History Last Taken 05/20/22] amiodarone 100 mg tablet (Pacerone) 100 mg PO BID heart 04/22/22 [History Last Taken 05/22/22] furosemide 40 mg tablet 40 mg PO DAILY water pill 04/22/22 [History Last Taken 05/22/22] ipratropium bromide 0.02 % solution for inhalation 2.5 ml inhalation Q8H PRN shortness of breath or wheezing #75 mL 04/22/22 [Rx Last Taken 05/22/22] Allergy/AdvReac Type Severity Reaction Status Date / Time adhesive tape Allergy tears skin Verified 03/23/22 07:49 cefadroxil [From Duricef] Allergy Unknown Verified 03/23/22 07:49 gluten Allergy celiac Verified 03/23/22 07:49 disease mesalamine [From Asacol] Allergy Unknown Verified 03/23/22 07:49 omalizumab [From Xolair] Allergy Unknown Verified 03/23/22 07:49 Sulfa (Sulfonamide Allergy swelling Verified 03/23/22 07:49 Antibiotics) as an infant oxycodone AdvReac Vomiting Verified 03/23/22 07:49 Family History Father Cancer Myocardial infarction Mother Cancer Metastatic breast CA Surgical History H/O rectocele repair History of lymph node dissection of right axilla History of mastectomy History of partial hysterectomy Hx of bilateral cataract extraction Hx of carpal tunnel repair Social History household members: spouse Smoking Status: Former smoker how long ago did patient quit smoking: Smoked x 2 years 1/2 ppd, quit ~ 50 years prior. alcohol intake: never substance use type: does not use ROS Constitutional Constitutional: Reports chills, fever(s) and weakness Eyes Eyes: Denies change in vision ENT HEENT: Denies epistaxis Cardiovascular Cardiovascular: Denies chest pain or edema Respiratory/Chest Respiratory/Chest: Reports portable oxygen @ home and productive cough Gastrointestinal Gastrointestinal: Reports anorexia and diarrhea; Denies abdominal pain, melena, nausea or vomiting Genitourinary Genitourinary: Denies dysuria Musculoskeletal Musculoskeletal: Reports muscle weakness and other Details: uses cane for ambulation Neurologic Neurologic: Reports abnormal gait Endocrine Endocrinology: Reports fatigue Hematologic/Lymphatic Hematologic/Lymphatic: Reports anemia Physical Exam Const alert and oriented x3 Constitutional Narrative: on oxygen General Appearance: well developed Nutritional Appearance: morbidly obese Eyes EOMs intact bilaterally Neck no JVD Resp no use of accessory muscles and clear to auscultation bilaterally Cardio regular rate Rate: bradycardia GI non-tender and non-distended GI Narrative: obese Auscultation: normoactive bowel sounds Palpation: soft Extremity no clubbing, cyanosis or edema Skin General Skin Exam: ecchymosis Neuro CN's II-XII intact bilaterally and moves all extremities Sensorium / Orientation: awake and alert Psych cooperative Lab / Micro Data Result Diagrams: 05/28/22 04:33 05/28/22 04:33 Labs: Laboratory Results - last 24 hr 05/27/22 04:31: Diff Path Review Reviewed 05/27/22 11:26: POC Glucose 326 H 05/27/22 16:50: POC Glucose 495 H* 05/27/22 22:10: POC Glucose 482 H* 05/27/22 22:27: Glucose 585 H* 05/28/22 04:33: WBC 27.0 H, RBC 3.00 L, Hgb 7.6 L, Hct 25.5 L, MCV 85.0, MCH 25.3 L, MCHC 29.8 L, RDW Std Deviation 53.1 H, RDW Coeff of Aniceto 17.2 H, Plt Count 347, MPV 9.6, Neut % (Auto) Not Reportable, Absolute Neuts (auto) 26.2 H, Absolute Lymphs (auto) 0.54 L, Total Counted 100, Neutrophils % (Manual) 89 H, Band Neutrophils % 6 H, Lymphocytes % (Manual) 2 L, Monocytes % (Manual) 1, Metamyelocytes % 1, Myelocytes % 1 H, Diff Path Review October, Platelet Estimate ADEQUATE, RBC Morphology NORM C+C 05/28/22 04:33: Sodium 134 L, Potassium 4.0, Chloride 99, Carbon Dioxide 28.0, Anion Gap 7, BUN 39 H, Creatinine 2.38 H, Estim Creat Clear Calc 16.89, Est GFR (MDRD) Af Amer 26 L, Est GFR (MDRD) Non-Af 21 L, BUN/Creatinine Ratio 16.4, Glucose 406 H, Calcium 9.1, Total Bilirubin 0.30, AST 17, ALT 18, Alkaline Phosphatase 125 H, Total Protein 6.1 L, Albumin 1.5 L, Globulin 4.6 H, Albumin/Globulin Ratio 0.3 L 05/28/22 06:15: POC Glucose 384 H Micro: Microbiology 05/26/22 18:20 Sputum, Expectorated/Coughed Gram Stain - Final 05/26/22 18:20 Sputum, Expectorated/Coughed Respiratory Culture - Preliminary GNR Poss Pseudomonas sp
--- NOTE | 2022-05-28 10:57 | PCM.PN.ID ---
Physical Exam Narrative Feeling better, still cough, breathing better, no fever Const alert and no apparent distress Resp Auscultation: rhonchi Cardio regular rate and regular rhythm GI soft to palpation, non-tender and non-distended Extremity General Extremity: edema Skin no rashes or lesions noted ID ID: Route of nutrition/ use of supplements: [] Nutritional Intake: [] IV Site: [] Hansen Catheter: [] Assessment & Plan Assessment/Plan (1) Pneumonia: PLAN: Multifocal pneumonia, recent chemo and radiation for NSCLC. Not producing sputum. Resp viral panel neg, UAgs neg. Fever improved. MRSA pcr neg. On empiric zosyn. Vanc stopped 05/27. Overall improving. Tobramycin neb added by primary team. Sputum with pseudomonas. Will consult neph due to worsening USAMA. Will decrease zosyn to q12h. Will follow (2) Cancer:
[2022-05-28 11:21] LABS: Bedside Glucose 346 mg/dL (74-106)
--- NOTE | 2022-05-28 11:23 | US_ITS ---
STUDY: RENAL ULTRASOUND - COMPLETE REASON FOR EXAM: Female, 76 years old. Renal failure TECHNIQUE: Ultrasound evaluation of the kidneys was performed with real-time and static cordova-scale imaging. COMPARISON: None. FINDINGS: RIGHT KIDNEY: Normal location of the right kidney, which is normal in size. The right kidney measures 12.2 cm x 6.9 cm x 5.4 cm. There is a normal cortex of the right kidney. The renal cortex measures 2.1 cm. There is no right renal mass or cyst. There are no right renal calculi. There is no right hydronephrosis. DISTAL RIGHT URETER: There is non-visualization of the distal right ureter. There is no demonstrated right ureterovesical junction calculus. There is no demonstrated right ureteral jet. LEFT KIDNEY: Normal location of the left kidney, which is normal in size. The left kidney measures 11.1 cm x 5.4 cm x 6.1 cm. There is a normal cortex of the left kidney. The renal cortex measures 2.1 cm. There is no left renal mass or cyst. There are no left renal calculi. There is no left hydronephrosis. DISTAL LEFT URETER: There is non-visualization of the distal left ureter. There is no demonstrated left ureterovesical junction calculus. There is no demonstrated left ureteral jet. BLADDER: The distended urinary bladder has a volume of 124 ml. There is a normal wall thickness of the distended urinary bladder. There is no demonstrated mass within the urinary bladder. There are no demonstrated bladder calculi. US/Kidney and Bladder IMPRESSION: Normal ultrasound of the kidneys and urinary bladder. Electronically Signed: Salazar Garcia MD at 15:03 EST ,
[2022-05-28] MEDS: 0.9% Normal Saline 1,000 ML 75 ML IV (11:46)
--- NOTE | 2022-05-28 12:07 | CASEMGMT ---
JASWINDER PLASCENCIA Assessment: Face to Face with pt for initial transition planning/care coordination assessment. JASWINDER PLASCENCIA introduced self and role at [facility], pt voices understanding and consents to assessment. Pt is sitting in chair, receiving a breathing tx. Pt is A/O x4 and answers all questions appropriately at this time. Care providers, pharmacy, and demographics verified/updated. Admitting Dx: Gen Weakness, Recurrent Fall. PCP: Misty. Specialists: Janene, Pulmonary. Preferred Pharmacy: [facility]. Insurance: Scripped [facility]. Prescription Benefit: Yes. LW/HPOA: Pt reports having LW/HPOA. On file at [facility]. Pt's dtr, Santa, is HPOA. LNOK: Santa [place]- Dtr/POA. Lalit Matute- DIL. Living Arrangements: Pt lives with in a two story home with a chair lift. Home has 5 stairs to enter with two railings. Pt reports and DIL assisting with ADLs. Transportation: DIL transports pt. DME/HHC/SNF: Pt has the following: walker, transport chair. chair lift, hospital bed, BSC, shower chair, grab bars, and a lift chair. Pt has bipap and nebulizer. Oxygen, 4L continuous, through [employer]. Pt has had the following for HHC: [facility], [facility], and [facility]. No current HHC. Pt has stayed at SNF in the past. Somewhere in [place] or [facility]. Pt declines going to a SNF again stating she will first. Pt states she would like to return home with HHC in place. Per pt, her and DIL will assist as well. Pt is concerned she will be DC with IV ATB. Requested staff contact dtr in [place] d/t her being HPOA. CM to follow. Advised pt to ask CM if any further question/concerns/needs arise, voices understanding. Pt Goal: Home with HHC. Plan:?TBD.
--- NOTE | 2022-05-28 12:24 | PCM.PN.HOSP ---
Subjective Subjective Follow-up for acute hypoxic respiratory failure and complicated postobstructive pneumonia In the morning patient was on 5 L of O2 through nasal cannula. After that patient wants to sleep and put back on BiPAP. Objective Data Objective Data Vital Signs: Vital Signs Temp Pulse Resp BP Pulse Ox O2 Del Method O2 Flow Rate 97.4 F L 57 L 26 H 148/82 H 99 Nasal Cannula 5 05/28/22 08:34 05/28/22 11:14 05/28/22 11:14 05/28/22 08:34 05/28/22 09:05 05/28/22 08:36 05/28/22 08:36 FiO2 40 05/28/22 07:28 Oxygen Flow Rate (L/min) 5 Oxygen Delivery Method Nasal Cannula Weight: 294 lb 4.8 oz Body Mass Index (BMI) 51.3 Intake & Output: Intake and Output for Last 24 Hours 05/26/22 05/27/22 05/28/22 23:59 23:59 23:59 Intake Total 1910 / 2310 1375 / 1975 1400 / 1400 Output Total 1150 / 1450 500 / 800 1200 / 1200 Balance 760 / 860 875 / 1175 200 / 200 Lab / Micro Data Result Diagrams: 05/28/22 04:33 05/28/22 04:33 Labs: Laboratory Results - last 24 hr 05/27/22 04:31: Diff Path Review Reviewed 05/27/22 16:50: POC Glucose 495 H* 05/27/22 22:10: POC Glucose 482 H* 05/27/22 22:27: Glucose 585 H* 05/28/22 04:33: WBC 27.0 H, RBC 3.00 L, Hgb 7.6 L, Hct 25.5 L, MCV 85.0, MCH 25.3 L, MCHC 29.8 L, RDW Std Deviation 53.1 H, RDW Coeff of Aniceto 17.2 H, Plt Count 347, MPV 9.6, Neut % (Auto) Not Reportable, Absolute Neuts (auto) 26.2 H, Absolute Lymphs (auto) 0.54 L, Total Counted 100, Neutrophils % (Manual) 89 H, Band Neutrophils % 6 H, Lymphocytes % (Manual) 2 L, Monocytes % (Manual) 1, Metamyelocytes % 1, Myelocytes % 1 H, Diff Path Review May foll, Platelet Estimate ADEQUATE, RBC Morphology NORM C+C 05/28/22 04:33: Sodium 134 L, Potassium 4.0, Chloride 99, Carbon Dioxide 28.0, Anion Gap 7, BUN 39 H, Creatinine 2.38 H, Estim Creat Clear Calc 16.89, Est GFR (MDRD) Af Amer 26 L, Est GFR (MDRD) Non-Af 21 L, BUN/Creatinine Ratio 16.4, Glucose 406 H, Calcium 9.1, Total Bilirubin 0.30, AST 17, ALT 18, Alkaline Phosphatase 125 H, Total Protein 6.1 L, Albumin 1.5 L, Globulin 4.6 H, Albumin/Globulin Ratio 0.3 L 05/28/22 06:15: POC Glucose 384 H 05/28/22 11:01: POC Glucose 346 H Micro: Microbiology 05/26/22 18:20 Sputum, Expectorated/Coughed Gram Stain - Final 05/26/22 18:20 Sputum, Expectorated/Coughed Respiratory Culture - Preliminary GNR Poss Pseudomonas sp 05/23/22 12:25 Urine, Clean Catch Urine Culture - Final Mixed Gram Positive Organisms 05/23/22 15:30 Mucosa - Nasopharyngeal Respiratory Panel (PCR) - Final 05/23/22 12:25 Urine Catheter - Catheter Legionella Antigen - Final 05/23/22 12:25 Urine Catheter - Catheter Streptococcus pneumoniae Antigen (M - Final 05/23/22 10:48 Nasal Secretion SARS-CoV-2 & FLU Antigen (Rapid) - Final Physical Exam Narrative Physical exam General: Alert, Oriented x3, Cooperative, morbid obesity 52.4 kg/m?. HEENT: Atraumatic, PERRLA, EOMI, Normocephalic Oral: Nasal cannula during daytime. On BiPAP. Neck: Supple, No JVD, Negative Carotid Bruits Lungs: Air entry severely diminished in right lung, but mildly improved compared to yesterday. On nasal cannula and BiPAP Cardiovascular: Regular rate, Regular Rhythm, Normal S1, Normal S2, systolic murmur present LLSB Abdomen: Bowel Sounds Present, Soft, Non Tender, Non-Distended : No renal angle tenderness. No suprapubic tenderness. Extremities: Bilateral 1+ pitting edema, Capillary Refill Less than 3 Seconds Skin: No rashes, No breakdown Musculoskeletal: ROM restricted at hip and knee joints. Muscle strength 4/5 at hip knee and ankle joints. Neurological: Cranial nerves II-XII grossly intact, DTR 2+/4. No acute focal deficit Psych/Mental Status: Flat affect. Assessment & Plan Assessment/Plan (1) Pneumonia: PLAN: Plan This is 76-year-old female was admitted for shortness of breath, increased cough fatigue, weakness, nausea vomiting after chemotherapy 2 weeks ago. 1. Complicated multifocal multilobular pneumonia: CT chest was done in ED and compared with the previous CT chest of March 2022. It shows mild decrease of mass/consolidation in the right upper lobe, superior segment of right lower lobe and left upper lobe although to me it looks not significant decrease. He also suspicion of increased progression of metastasis with increase in the size of left lower lobe pulmonary nodule. New patchy opacity left upper lobe concerning for pneumonia/metastasis. Patient is being admitted on [facility] floor. Started on IV antibiotics vancomycin and Zosyn. Patient does not have true allergy with cefadroxil as she had multiple times cefazolin and Zosyn and cefepime. Pneumonia work-up ordered. Continue bronchodilator every 6 hourly, incentive spirometry, Pep. 05/27: Preliminary sputum culture this time shows 3+ gram-positive rods and 3+ GPC. A previous sputum culture in December 2021x2 shows Pseudomonas rare growth and rare Briana albicans. His BAL on June 2021 also showed Pseudomonas. It is resistant to fluoroquinolones but sensitive to gentamicin and Zosyn. Dr. Watters called me yesterday and asked for double antipseudomonal coverage. Patient already on Zosyn. He recommended tobramycin IV which ID did not agree because of high toxicity profile. After that, tobramycin 300 mg elation 1 dose was tried and patient felt better in the morning and could get off BiPAP for some time. Yesterday had a long telephone call with patient's power of privacy attorney for health, Mrs. [place], she is out of state. We discussed her prolonged illness with lung cancer, chemotherapy and radiotherapy and recurrent Pseudomonas infection in NovemberDecember 2021. She was also admitted in March and December 2021. She had bronchoscopy by Dr. Watters in June 2021 showed right upper lobe pneumonia and BAL culture as mentioned above. Discussed with the pharmacist and ID and started on tobramycin 300 mg nebulization twice daily for 7 days. I also discussed with dairy tester. 05/28: ID consult reviewed. Fever improved. Respiratory panel, urinary antigens are negative. USAMA on CKD stage IIIb: Patient was admitted with creatinine 0.99, 1.0 and went up to 2.38.Her baseline creatinine clearance is around 40 mill per minute. USAMA unclear whether due to prerenal from nausea vomiting chemotherapeutics adverse effect or medication. Tobramycin nebulization usually does not cause USAMA but has been few rare case reports. State Patrol Officer is consulted. Discussed with the hydrometeorological technician and tobramycin not concern for USAMA. 2. Chemotherapeutic adverse effect including loss of appetite, nausea, vomiting and diarrhea: Diarrhea has improved. Needs to be aggressive rehydration. Urine output was dark and yellow in ED. Patient treated adequately rehydrated. 05/28: Patient had diarrhea. Stool studies ordered. 3. Chronic hypoxic and hypercarbic respiratory failure probably due to obesity hypoventilation syndrome complicated with pneumonia and lung cancer: Patient on 4 L of oxygen at at home 28/12 and he wears BiPAP at night. 4. Stage III NSCLC: Patient currently undergoing chemotherapy. Patient had radiotherapy. She follows Dr. Dan. 5. Paroxysmal A. fib on amiodarone, nadolol and Eliquis: Continued. 6. Fall, generalized weakness failure to thrive: CT head and CT C-spine was done which did not show any acute abnormality. 7. Hypertension: On nadolol. 8. Diabetes mellitus type II: Accu-Cheks and cover with Humalog sliding scale. Patient on scheduled insulin as per home dose and will titrate as per Accu-Cheks 9. Anxiety and depression: Patient has ADHD. On methylphenidate and Paxil. 10. DORY/OSH on BiPAP at night 11. VTE prophylaxis on Eliquis Total time of the visit including total time spent in counseling or coordination of care, (more than 50% of the total time, spent in obtaining medical information from nurses and other ancillary care providers,explaining to the patient about labs, imaging, diagnosis and management of active complex medical conditions), discussion with ID and dairy tester and daughter, review of labs and imaging is 50 minutes. Living will/advanced directive/end of life care: Patient does have living will or advanced directive. His power of privacy attorney is daughter, Mrs. Pratt. After discussion of benefits/risks procedures involved with full code, DNR CC arrest and DNR CC, the patient very well knows that she is DNR CC arrest. Patient doesn't want artificial life support including intubation, tube feed, ventilator and/chest compression, central venous catheter, vasopressor and DC shock if needed but she is okay with BiPAP or CPAP Clinical Impression(s) from Imaging Studies Chest X-Ray 05/23/22 10:17 IMPRESSION: No significant interval change. Brain CT 05/23/22 10:34 IMPRESSION: No acute intracranial process identified. Chronic involutional and white matter changes. Severe chronic maxillary sinusitis. Chest CT 05/23/22 10:34 IMPRESSION: Mildly decreased size of masses or consolidation in the right upper lobe, superior segment of the right lower lobe, and left upper lobe. New spiculated nodular opacities scattered in the right lung and new patchy opacity in the left upper lobe, which may represent new regions of pneumonia or metastasis. Increased size of left lower lobe pulmonary nodule concerning for progression of metastasis. Cervical Spine CT 05/23/22 10:37 IMPRESSION: No evidence of acute cervical spinal fracture or dislocation. Multilevel degenerative change. Charges/Coding Visit Charges Inpatient E&M: 96285 Subs Hosp L3
--- NOTE | 2022-05-28 13:03 | PN.CC_ITS ---
Assessment & Plan Assessment/Plan (1) Pneumonia: (2) Cancer: (3) Sleep apnea: QUALIFIERS: Sleep apnea type: obstructive Qualified Code(s): G47.33 - Obstructive sleep apnea (adult) (pediatric) PLAN: Plan RECOMMENDATIONS: 1. Agree with Zosyn. Likely okay to discontinue tobramycin 2. Defer antibiotics to infectious disease 3. Okay to reinitiate diuresis from my perspective 4. BiPAP rescue during the day and with sleep 5. Wean steroids 6. No bronchoscopy at this time. Continue mucolytic IMPRESSIONS: 1. Complicated multilobar pneumonia in the setting of lung cancer and chemotherapy Patient appears to have an element of postobstructive pneumonia multiple times in the right upper lobe. However, patient currently has right middle and right lower lobe infiltrates. Patient has grown multidrug-resistant Pseudomonas in the past, so agree with Zosyn. Tobramycin likely not necessary in my opinion. Little to no need for BiPAP rescue. Patient should continue on BiPAP with sleep. Will wean steroid therapies as hyperglycemia is significant and patient is improving. Patient would likely benefit from aggressive pulmonary toileting, but does not appear to be open to Acapella at this time. Vest therapy for pulmonary toileting has been initiated. Doubt patient will require double coverage as Zosyn sensitivity was noted previously and patient is improving 2. Debility secondary to chemotherapeutic adverse effects and radiation Patient with significant GI complications associated with chemotherapy. Dr. Crouch has been following and counts appear to be adequate at this time. No indication for transfusion. 3. Paroxysmal A. fib/diabetes mellitus/morbid obesity/anxiety/depression/DORY Complicates care, management, recovery and prognosis. Patient appears to be using BiPAP appropriately. May need to hold Eliquis therapy if intervention is planned. Would recommend confirming CODE STATUS given marginal respiratory reserve in the setting of advanced cancer. Patient did not appear to be up to this today during my evaluation. Patient does appear to have baseline collapse of the right upper lobe, minimizing reserve. Subjective Subjective Patient did well overnight. No acute issues were reported. Patient subjectively feels improved compared to previous. Patient was actually able to make it to the chair today. Patient is reporting a cough productive of brown sputum. Objective Data Objective Data Vital Signs: Vital Signs Temp Pulse Resp BP Pulse Ox O2 Del Method O2 Flow Rate 36.3 C L 57 L 26 H 148/82 H 99 Nasal Cannula 5 05/28/22 08:34 05/28/22 11:14 05/28/22 11:14 05/28/22 08:34 05/28/22 09:05 05/28/22 08:36 05/28/22 08:36 FiO2 40 05/28/22 07:28 Oxygen Flow Rate (L/min) 5 Oxygen Delivery Method Nasal Cannula Weight: 131.7 kg Body Mass Index (BMI) 51.3 Intake & Output: Intake and Output for Last 24 Hours 05/26/22 05/27/22 05/28/22 23:59 23:59 23:59 Intake Total 1910 / 2310 1375 / 1975 1400 / 1400 Output Total 1150 / 1450 500 / 800 1200 / 1200 Balance 760 / 860 875 / 1175 200 / 200 Lab / Micro Data Attestation: I reviewed the patient's lab results. Result Diagrams: 05/28/22 04:33 05/28/22 04:33 Labs: Laboratory Results - last 24 hr 05/27/22 04:31: Diff Path Review Reviewed 05/27/22 16:50: POC Glucose 495 H* 05/27/22 22:10: POC Glucose 482 H* 05/27/22 22:27: Glucose 585 H* 05/28/22 04:33: WBC 27.0 H, RBC 3.00 L, Hgb 7.6 L, Hct 25.5 L, MCV 85.0, MCH 25.3 L, MCHC 29.8 L, RDW Std Deviation 53.1 H, RDW Coeff of Aniceto 17.2 H, Plt Co unt 347, MPV 9.6, Neut % (Auto) Not Reportable, Absolute Neuts (auto) 26.2 H, Absolute Lymphs (auto) 0.54 L, Total Counted 100, Neutrophils % (Manual) 89 H, Band Neutrophils % 6 H, Lymphocytes % (Manual) 2 L, Monocytes % (Manual) 1, Metamyelocytes % 1, Myelocytes % 1 H, Diff Path Review May foll, Platelet Estimate ADEQUATE, RBC Morphology NORM C+C 05/28/22 04:33: Sodium 134 L, Potassium 4.0, Chloride 99, Carbon Dioxide 28.0, Anion Gap 7, BUN 39 H, Creatinine 2.38 H, Estim Creat Clear Calc 16.89, Est GFR (MDRD) Af Amer 26 L, Est GFR (MDRD) Non-Af 21 L, BUN/Creatinine Ratio 16.4, Glucose 406 H, Calcium 9.1, Total Bilirubin 0.30, AST 17, ALT 18, Alkaline Phosphatase 125 H, Total Protein 6.1 L, Albumin 1.5 L, Globulin 4.6 H, Albumin/Globulin Ratio 0.3 L 05/28/22 06:15: POC Glucose 384 H 05/28/22 11:01: POC Glucose 346 H Micro: Microbiology 05/23/22 12:13 Blood Culture (Wb) - Port Blood Culture - Final No growth in 5 days. 05/26/22 18:20 Sputum, Expectorated/Coughed Gram Stain - Final 05/26/22 18:20 Sputum, Expectorated/Coughed Respiratory Culture - Preliminary GNR Poss Pseudomonas sp 05/23/22 12:25 Urine, Clean Catch Urine Culture - Final Mixed Gram Positive Organisms 05/23/22 15:30 Mucosa - Nasopharyngeal Respiratory Panel (PCR) - Final 05/23/22 12:25 Urine Catheter - Catheter Legionella Antigen - Final 05/23/22 12:25 Urine Catheter - Catheter Streptococcus pneumoniae Antigen (M - Final 05/23/22 10:48 Nasal Secretion SARS-CoV-2 & FLU Antigen (Rapid) - Final Physical Exam Const alert, oriented x3 and no apparent distress Constitutional Narrative: More interactive today. Patient on nasal cannula, but still with conversational dyspnea. Morbidly obese General Appearance: Negative for ill appearing HEENT normocephalic and head/scalp atraumatic Eyes PERRL, EOMs intact bilaterally and no scleral icterus Neck full ROM Resp Resp Narrative: Still coughing with deep inhalation Effort and Inspection: Negative for actively coughing or uses accessory muscles Auscultation: rhonchi right lower and diminished lung sounds; Negative for rales or wheezes Percussion: dullness Upper: right Cardio regular rate, S1 normal heart sound, S2 normal heart sound, no murmurs, no rub and no gallops Cardio Narrative: Coarse breath sounds complicate cardiac auscultation GI soft to palpation, non-tender and non-distended Extremity General Extremity: edema Skin no rashes or lesions noted Neuro CN's II-XII intact bilaterally and moves all extremities Psych Mood & Affect: labile affect Charges/Coding Visit Charges Inpatient E&M: 67065 Subs Hosp L2
[2022-05-28 13:17] LABS: Urine Sodium < 5 mmol/L (Not Establ.)
--- NOTE | 2022-05-28 14:42 | NURSING ---
Dr Gold notified not Dr Abreu.
--- NOTE | 2022-05-28 14:55 | CPS ---
pt refused to have her vest on during her 11a treatment.
--- NOTE | 2022-05-28 15:36 | CPS ---
pt refusing vest at this time
--- NOTE | 2022-05-28 15:39 | CASEMGMT ---
TC to dtr/POA, [place]. Pt requests dtr be called as she handles most healthcare concerns. Dtr voiced the same. Discussed HHC with dtr and offered a list to be emailed. Dtr declined a list and [facility]. Per dtr, pt utilized [facility] in the recent past. Pt will likely be DC with IV ATB and will need SN and therapy.
--- NOTE | 2022-05-28 15:52 | CASEMGMT ---
TC jermaine Pink at [facility], referral made for SN, PT and OT. Will await acceptance.
[2022-05-28 16:30] LABS: Bedside Glucose 442 mg/dL (74-106)
--- NOTE | 2022-05-28 20:26 | CPS ---
[1930] Pt. politely refused use of chest vest at this time. Pt.'s very tired and comfortable in her bed.
[2022-05-28] MEDS: Atorvastatin Calcium 40 MG Tablet PO (21:27)
[2022-05-28] MEDS: Pramipexole Di-HCl 0.5 MG Tablet PO (21:30)
[2022-05-28 21:55] LABS: Bedside Glucose 128 mg/dL (74-106)
[2022-05-29] VITALS (14 sets, daily range): BP systolic 156–158; BP diastolic 52–66; PULSE 54–89; RESP 14–27; TEMP 35.9–36.5; O2SAT 94–100
--- NOTE | 2022-05-29 01:32 | NURSING ---
emergency documentation
[2022-05-29 05:24] LABS: Hematocrit 28.3 % (37-47); Hemoglobin 8.3 g/dL (12.0-15.0); Mean Corp Hgb Conc 29.3 g/dL (32-36); Mean Corpuscular Hgb 25.4 pg (27.0-32.0); Mean Corpuscular Volume 86.5 fL (81-99); Mean Platelet Vol. 9.8 fl (6.2-12.0); POSITIVE COUNT YES; POSITIVE DIFFERENTIAL YES; POSITIVE MORPHOLOGY YES; Platelet Count 363 K/mm3 (150-450); RBC Distribution Width CV 17.2 % (11.6-14.6); RBC Distribution Width SD 54.3 fl (35.1-43.9); Red Blood Count 3.27 M/mm3 (4.2-5.4); White Blood Count 30.4 K/mm3 (4.4-11.0)
[2022-05-29 05:27] LABS: Differential Indicated MANUAL DIFF
[2022-05-29] MEDS: 0.9% Normal Saline 1,000 ML 75 ML IV ×2 (05:51→19:41)
[2022-05-29 05:53] LABS: Albumin, Serum 1.7 g/dL (3.2-5.0); BUN 52 mg/dL (7-18); Calcium,Total 9.5 mg/dL (8.5-10.1); Chloride 100 mmol/L (98-107); Creatinine, Serum 2.48 mg/dL (0.55-1.02); EST Glomerular Filtration Rate 20 mL/min (>60); Est Glom Filt Rate - Afr Amer 24 mL/min (>60); Estimated Creatinine Clearance 16.21 ml/min; Glucose 449 mg/dL (74-106); Potassium 4.9 mmol/L (3.5-5.1); Sodium Level 134 mmol/L (136-145)
[2022-05-29 06:06] LABS: Lymphocyte 1 % (19-41); Metamyelocyte 1 % (0-1); Myelocyte 3 % (0-0); Neutrophil-Band 6 % (0-5); Neutrophil-Segmented 89 % (47-70); Total Cells Counted 100 (MANUAL DIFF)
[2022-05-29 06:07] LABS: Absolute Neutrophil Count 30.1 X10^3/uL (2.0-7.7); Neutrophil # 30.13 X10^3/uL (2.7-7.7); Platelet Estimate ADEQUATE (ADEQ)
[2022-05-29 06:08] LABS: Red Cell Morphology NORM C+C NORMAL (NORM C&C)
[2022-05-29] MEDS: Insulin Lispro 100 UNIT/ML INSULN.PEN SC ×4 (06:55→21:38)
[2022-05-29] MEDS: Ipratropium/Albuterol Sulfate 3 ML AMPUL.NEB INHALATION ×4 (07:13→18:54)
[2022-05-29] MEDS: Tobramycin 80 MG/2 ML Vial 300 MG INHALATION ×2 (07:13→18:54)
--- NOTE | 2022-05-29 07:53 | CPS ---
Pt refused chest vest therapies this morning.
[2022-05-29] MEDS: guaiFENesin 1,200 MG Tablet 1200 MG PO ×2 (09:07→21:36)
[2022-05-29] MEDS: Paroxetine 20 MG Tablet 40 MG PO (09:07)
[2022-05-29] MEDS: Amiodarone 200 MG Tablet 100 MG PO ×2 (09:07→16:47)
[2022-05-29] MEDS: Nystatin Powder 15gm Bottle 1 APPLIC TOPICAL ×2 (09:09→21:51)
[2022-05-29] MEDS: 0.9% Saline Lock 10 ML Syringe IV (09:17)
[2022-05-29] MEDS: Nadolol 40 MG Tablet PO (09:20)
[2022-05-29 09:49] LABS: Pathologist Review Reviewed
--- NOTE | 2022-05-29 11:23 | CASEMGMT ---
Spoke with [facility] who states they can accept pt, PT will do admission. She is aware pt will likely not dc through the weekend per hospitalist in rounds. Green sheet on chart for oxygen and HHC in case that should happen.
--- NOTE | 2022-05-29 11:24 | PN.CC_ITS ---
Assessment & Plan Assessment/Plan (1) Pneumonia: (2) Cancer: (3) Sleep apnea: QUALIFIERS: Sleep apnea type: obstructive Qualified Code(s): G47.33 - Obstructive sleep apnea (adult) (pediatric) PLAN: Plan RECOMMENDATIONS: 1. Agree with Briseida. Likely okay to discontinue tobramycin 2. Defer antibiotics to infectious disease 3. Okay to reinitiate diuresis from my perspective 4. Continue BiPAP with sleep 5. Transition to prednisone tomorrow and wean over 12 to 14 days 6. Okay to follow-up with primary reaming machine operator 2 to 3 weeks after discharge 7. Hemodynamically stable at baseline nasal cannula oxygen. Will sign off from a pulmonary perspective IMPRESSIONS: 1. Complicated multilobar pneumonia in the setting of lung cancer and chem otherapy Patient appears to have an element of postobstructive pneumonia multiple times in the right upper lobe. However, patient currently has right middle and right lower lobe infiltrates. Patient has grown multidrug-resistant Pseudomonas in the past, so agree with Birseida. Tobramycin likely not necessary in my opinion. Little to no need for BiPAP rescue. Patient should continue on BiPAP with sleep. We will transition to prednisone therapy tomorrow. Patient can wean this over the next 10 to 12 days. Patient appears to be at her baseline at this time. Patient can follow-up with her primary reaming machine operator 2 to 3 weeks after discharge. Antibiotic course will be complicated by sensitivities requiring IV access 2. Debility secondary to chemotherapeutic adverse effects and radiation Patient with significant GI complications associated with chemotherapy. Dr. Crouch has been following and counts appear to be adequate at this time. No indication for transfusion. 3. Paroxysmal A. fib/diabetes mellitus/morbid obesity/anxiety/depression/DORY Complicates care, management, recovery and prognosis. Patient appears to be using BiPAP appropriately. May need to hold Eliquis therapy if intervention is planned. Okay to resume baseline medications Subjective Subjective Patient did okay overnight. No acute issues were reported. Patient continues to report global fatigue. Patient was occult blood positive, but oxygen requirements continue to improve. Patient did use BiPAP in the morning and is back to her baseline nasal cannula oxygen. Objective Data Objective Data Vital Signs: Vital Signs Temp Pulse Resp BP Pulse Ox O2 Del Method O2 Flow Rate 36.6 C 80 26 H 142/67 H 94 Nasal Cannula 5 05/28/22 21:49 05/29/22 09:04 05/29/22 07:10 05/28/22 21:49 05/29/22 09:08 05/29/22 09:04 05/29/22 09:34 FiO2 30 05/29/22 05:29 Oxygen Flow Rate (L/min) 5 Oxygen Delivery Method Nasal Cannula Weight: 135.8 kg Body Mass Index (BMI) 51.3 Intake & Output: Intake and Output for Last 24 Hours 05/27/22 05/28/22 05/29/22 23:59 23:59 23:59 Intake Total 1375 / 1975 3566 / 3616 1456 / 1456 Output Total 500 / 800 1775 / 1775 250 / 250 Balance 875 / 1175 1791 / 1841 1206 / 1206 Lab / Micro Data Attestation: I reviewed the patient's lab results. Result Diagrams: 05/29/22 04:16 05/29/22 04:16 Labs: Laboratory Results - last 24 hr 05/28/22 04:33: Diff Path Review Reviewed 05/28/22 12:53: Ur Random Sodium < 5 05/28/22 12:53: Urine Creatinine 108.00 05/28/22 16:04: POC Glucose 442 H 05/28/22 21:32: POC Glucose 128 H 05/29/22 04:16: WBC 30.4 H*, RBC 3.27 L, Hgb 8.3 L, Hct 28.3 L, MCV 86.5, MCH 25.4 L, MCHC 29.3 L, RDW Std Deviation 54.3 H, RDW Coeff of Aniceto 17.2 H, Plt Count 363, MPV 9.8, Neut % (Auto) Not Reportable, Absolute Neuts (auto) 30.1 H, Absolute Lymphs (auto) 0.30 L, Total Counted 100, Neutrophils % (Manual) 89 H, Band Neutrophils % 6 H, Lymphocytes % (Manual) 1 L, Metamyelocytes % 1, Myelocytes % 3 H, Diff Path Review May foll, Platelet Estimate ADEQUATE, RBC Morphology NORM C+C 05/29/22 04:16: Sodium 134 L, Potassium 4.9, Chloride 100, Carbon Dioxide 27.0, BUN 52 H, Creatinine 2.48 H, Estim Creat Clear Calc 16.21, Est GFR (MDRD) Af Amer 24 L, Est GFR (MDRD) Non-Af 20 L, BUN/Creatinine Ratio 21.0 H, Glucose 449 H, Calcium 9.5, Phosphorus 5.0 H, Albumin 1.7 L Micro: Microbiology 05/28/22 15:47 Stool Stool Lactoferrin - Final 05/28/22 15:47 Stool Enteric Bacteriology - Final 05/28/22 15:47 Stool C. difficile DNA Amplification - Final 05/28/22 15:47 Stool Stool Occult Blood (RODRIGO) - Final Occult Blood Positive 05/26/22 18:20 Sputum, Expectorated/Coughed Gram Stain - Final 05/26/22 18:20 Sputum, Expectorated/Coughed Respiratory Culture - Preliminary Pseudomonas aeroginosa 05/23/22 12:13 Blood Culture (Wb) - Port Blood Culture - Final No growth in 5 days. 05/23/22 12:25 Urine, Clean Catch Urine Culture - Final Mixed Gram Positive Organisms 05/23/22 15:30 Mucosa - Nasopharyngeal Respiratory Panel (PCR) - Final 05/23/22 12:25 Urine Catheter - Catheter Legionella Antigen - Final 05/23/22 12:25 Urine Catheter - Catheter Streptococcus pneumoniae Antigen (M - Final 05/23/22 10:48 Nasal Secretion SARS-CoV-2 & FLU Antigen (Rapid) - Final Radiography Diagnostic Testing: Radiology Impression Renal Ultrasound 05/28/22 11:23 IMPRESSION: Normal ultrasound of the kidneys and urinary bladder. Electronically Signed: Salazar Garcia MD at 15:03 EST Reading Location ID and State: [facility] / [place] , Service support , Physical Exam Const alert, oriented x3 and no apparent distress Constitutional Narrative: Appears to be baseline. Patient on nasal cannula with no conversational dyspnea. Morbidly obese General Appearance: Negative for ill appearing HEENT normocephalic and head/scalp atraumatic Eyes PERRL, EOMs intact bilaterally and no scleral icterus Neck full ROM Resp Resp Narrative: Still coughing with deep inhalation Effort and Inspection: Negative for actively coughing or uses accessory muscles Auscultation: diminished lung sounds; Negative for rales, rhonchi or wheezes Percussion: dullness Upper: right Cardio regular rate, S1 normal heart sound, S2 normal heart sound, no murmurs, no rub and no gallops GI soft to palpation, non-tender and non-distended Extremity General Extremity: edema Skin no rashes or lesions noted Neuro CN's II-XII intact bilaterally and moves all extremities Psych cooperative and affect normal Charges/Coding Visit Charges Inpatient E&M: 47637 Subs Hosp L2
--- NOTE | 2022-05-29 11:52 | PN.RENAL_ITS ---
Subjective Subjective denies NV, diarrhea better. Cdiff negative. On BIPAP. Appetite poor. Urine dark gilles in [place]. IVF started yeseterday. Creatinine worse today but urine output improving Objective Data Objective Data Vital Signs: Vital Signs Temp Pulse Resp BP Pulse Ox O2 Del Method O2 Flow Rate 97.8 F 61 23 H 142/67 H 98 Nasal Cannula 5 05/28/22 21:49 05/29/22 11:00 05/29/22 11:00 05/28/22 21:49 05/29/22 11:00 05/29/22 09:04 05/29/22 09:34 FiO2 40 05/29/22 11:00 Oxygen Flow Rate (L/min) 5 Oxygen Delivery Method Nasal Cannula Weight: 135.8 kg Body Mass Index (BMI) 51.3 Intake & Output: Intake and Output for Last 24 Hours 05/27/22 05/28/22 05/29/22 23:59 23:59 23:59 Intake Total 1375 / 1975 3566 / 3616 1456 / 1456 Output Total 500 / 800 1775 / 1775 250 / 250 Balance 875 / 1175 1791 / 1841 1206 / 1206 Lab / Micro Data Result Diagrams: 05/29/22 04:16 05/29/22 04:16 Labs: Laboratory Results - last 24 hr 05/28/22 04:33: Diff Path Review Reviewed 05/28/22 12:53: Ur Random Sodium < 5 05/28/22 12:53: Urine Creatinine 108.00 05/28/22 16:04: POC Glucose 442 H 05/28/22 21:32: POC Glucose 128 H 05/29/22 04:16: WBC 30.4 H*, RBC 3.27 L, Hgb 8.3 L, Hct 28.3 L, MCV 86.5, MCH 25.4 L, MCHC 29.3 L, RDW Std Deviation 54.3 H, RDW Coeff of Naiceto 17.2 H, Plt Count 363, MPV 9.8, Neut % (Auto) Not Reportable, Absolute Neuts (auto) 30.1 H, Absolute Lymphs (auto) 0.30 L, Total Counted 100, Neutrophils % (Manual) 89 H, Band Neutrophils % 6 H, Lymphocytes % (Manual) 1 L, Metamyelocytes % 1, Myelocytes % 3 H, Diff Path Review May foll, Platelet Estimate ADEQUATE, RBC Morphology NORM C+C 05/29/22 04:16: Sodium 134 L, Potassium 4.9, Chloride 100, Carbon Dioxide 27.0, BUN 52 H, Creatinine 2.48 H, Estim Creat Clear Calc 16.21, Est GFR (MDRD) Af Amer 24 L, Est GFR (MDRD) Non-Af 20 L, BUN/Creatinine Ratio 21.0 H, Glucose 449 H, Calcium 9.5, Phosphorus 5.0 H, Albumin 1.7 L Micro: Microbiology 05/26/22 18:20 Sputum, Expectorated/Coughed Gram Stain - Final 05/26/22 18:20 Sputum, Expectorated/Coughed Respiratory Culture - Preliminary Pseudomonas aeroginosa 05/28/22 15:47 Stool Stool Lactoferrin - Final 05/28/22 15:47 Stool Enteric Bacteriology - Final 05/28/22 15:47 Stool C. difficile DNA Amplification - Final 05/28/22 15:47 Stool Stool Occult Blood (RODRIGO) - Final Occult Blood Positive 05/23/22 12:13 Blood Culture (Wb) - Port Blood Culture - Final No growth in 5 days. 05/23/22 12:25 Urine, Clean Catch Urine Culture - Final Mixed Gram Positive Organisms 05/23/22 15:30 Mucosa - Nasopharyngeal Respiratory Panel (PCR) - Final 05/23/22 12:25 Urine Catheter - Catheter Legionella Antigen - Final 05/23/22 12:25 Urine Catheter - Catheter Streptococcus pneumoniae Antigen (M - Final 05/23/22 10:48 Nasal Secretion SARS-CoV-2 & FLU Antigen (Rapid) - Final Radiography Diagnostic Testing: Radiology Impression Renal Ultrasound 05/28/22 11:23 IMPRESSION: Normal ultrasound of the kidneys and urinary bladder. Electronically Signed: Salazar Garcia MD at 15:03 EST , Physical Exam Const alert and oriented x3 General Appearance: well developed and on BiPAP Nutritional Appearance: morbidly obese Eyes EOMs intact bilaterally Resp no use of accessory muscles and clear to auscultation bilaterally Resp Narrative: BIPAP Cardio regular rate GI non-tender and non-distended Auscultation: normoactive bowel sounds Palpation: soft Extremity General Extremity: edema bilateral (mild) lower extremity Neuro CN's II-XII intact bilaterally Sensorium / Orientation: awake and alert Assessment & Plan Assessment/Plan (1) Acute renal failure: PLAN: Creatinine up to 2.48 today. Re ains bradycardic. Urine output improving with iv fluids. Continue with iv fluids. FeNa <1 suggestive of prerenal event. Diarrhea improved. Cdiff negative. . Avoid nephrotoxins (2) Pneumonia: PLAN: antibiotics renal dosed. (3) Sleep apnea: QUALIFIERS: Sleep apnea type: obstructive Qualified Code(s): G47.33 - Obstructive sleep apnea (adult) (pediatric) PLAN: on oxygen and BIPAP at home (4) Breast cancer, right breast: (5) Metastatic cancer to lung: PLAN: bone mets s/p radiation, chemotherapy (6) Hypertension: PLAN: stable (7) Diabetes mellitus, type II: QUALIFIERS: Diabetes mellitus complication status: without complication Diabetes mellitus assisted insulin use: with assisted use Qualified Code(s): E11.9 - Type 2 diabetes mellitus without complications; Z79.4 - hospice administrator (current) use of insulin PLAN: on insulin with neuropathy (8) Morbid obesity: (9) Diarrhea: PLAN: check stool for cdiff
[2022-05-29 11:55] LABS: Bedside Glucose 406 mg/dL (74-106)
--- NOTE | 2022-05-29 13:36 | PCM.PN.ID ---
Physical Exam Narrative Feeling about the same, still on NIPPV, some dyspnea, ongoing cough. No fever, no n/v/d. Const alert and no apparent distress Resp Auscultation: rhonchi and diminished lung sounds Cardio regular rate and regular rhythm GI soft to palpation, non-tender and non-distended Skin no rashes or lesions noted ID ID: Route of nutrition/ use of supplements: [] Nutritional Intake: [] IV Site: [] Hansen Catheter: [] Assessment & Plan Assessment/Plan (1) Pneumonia: PLAN: Multifocal pneumonia, recent chemo and radiation for NSCLC. Not producing sputum. Resp viral panel neg, UAgs neg. Fever improved. MRSA pcr neg. On empiric zosyn. Vanc stopped 05/27. Overall improving. Tobramycin neb added by primary team. Sputum with pseudomonas, borderline RODRIGO for zosyn. Given RODRIGO and still increasing wbc and Cr, will change zosyn to meropenem. Will follow (2) Cancer:
[2022-05-29 14:11] LABS: Pathologist Review Reviewed
[2022-05-29] MEDS: Acetaminophen 325 MG Tablet 650 MG PO (14:28)
--- NOTE | 2022-05-29 15:23 | PCM.PN.HOSP ---
Subjective Subjective Follow-up for multifocal pneumonia and lung cancer. Objective Data Objective Data Vital Signs: Vital Signs Temp Pulse Resp BP Pulse Ox O2 Del Method O2 Flow Rate 96.7 F L 60 23 H 156/66 H 100 Bi-pap 5 05/29/22 14:19 05/29/22 14:40 05/29/22 14:40 05/29/22 14:19 05/29/22 14:40 05/29/22 14:23 05/29/22 09:34 FiO2 35 05/29/22 14:40 Oxygen Flow Rate (L/min) 5 Oxygen Delivery Method Bi-pap Weight: 299 lb 6.204 oz Body Mass Index (BMI) 51.3 Intake & Output: Intake and Output for Last 24 Hours 05/27/22 05/28/22 05/29/22 23:59 23:59 23:59 Intake Total 1375 / 1975 3566 / 3616 1456 / 1456 Output Total 500 / 800 1775 / 1775 650 / 650 Balance 875 / 1175 1791 / 1841 806 / 806 Lab / Micro Data Result Diagrams: 05/29/22 04:16 05/29/22 04:16 Labs: Laboratory Results - last 24 hr 05/28/22 04:33: Diff Path Review Reviewed 05/28/22 16:04: POC Glucose 442 H 05/28/22 21:32: POC Glucose 128 H 05/29/22 04:16: WBC 30.4 H*, RBC 3.27 L, Hgb 8.3 L, Hct 28.3 L, MCV 86.5, MCH 25.4 L, MCHC 29.3 L, RDW Std Deviation 54.3 H, RDW Coeff of Aniceto 17.2 H, Plt Count 363, MPV 9.8, Neut % (Auto) Not Reportable, Absolute Neuts (auto) 30.1 H, Absolute Lymphs (auto) 0.30 L, Total Counted 100, Neutrophils % (Manual) 89 H, Band Neutrophils % 6 H, Lymphocytes % (Manual) 1 L, Metamyelocytes % 1, Myelocytes % 3 H, Diff Path Review Reviewed, Platelet Estimate ADEQUATE, RBC Morphology NORM C+C 05/29/22 04:16: Sodium 134 L, Potassium 4.9, Chloride 100, Carbon Dioxide 27.0, BUN 52 H, Creatinine 2.48 H, Estim Creat Clear Calc 16.21, Est GFR (MDRD) Af Amer 24 L, Est GFR (MDRD) Non-Af 20 L, BUN/Creatinine Ratio 21.0 H, Glucose 449 H, Calcium 9.5, Phosphorus 5.0 H, Albumin 1.7 L 05/29/22 11:28: POC Glucose 406 H Micro: Microbiology 05/23/22 10:10 Blood Culture (Wb) - Port Blood Culture - Final No growth in 5 days. 05/26/22 18:20 Sputum, Expectorated/Coughed Gram Stain - Final 05/26/22 18:20 Sputum, Expectorated/Coughed Respiratory Culture - Preliminary Pseudomonas aeroginosa 05/28/22 15:47 Stool Stool Lactoferrin - Final 05/28/22 15:47 Stool Enteric Bacteriology - Final 05/28/22 15:47 Stool C. difficile DNA Amplification - Final 05/28/22 15:47 Stool Stool Occult Blood (RODRIGO) - Final Occult Blood Positive 05/23/22 12:13 Blood Culture (Wb) - Port Blood Culture - Final No growth in 5 days. 05/23/22 12:25 Urine, Clean Catch Urine Culture - Final Mixed Gram Positive Organisms 05/23/22 15:30 Mucosa - Nasopharyngeal Respiratory Panel (PCR) - Final 05/23/22 12:25 Urine Catheter - Catheter Legionella Antigen - Final 05/23/22 12:25 Urine Catheter - Catheter Streptococcus pneumoniae Antigen (M - Final 05/23/22 10:48 Nasal Secretion SARS-CoV-2 & FLU Antigen (Rapid) - Final Physical Exam Narrative Overall it seems improvement in shortness of breath and dyspnea. Patient on nasal cannula in the morning. Physical exam General: Alert, Oriented x3, Cooperative, morbid obesity 52.4 kg/m?. HEENT: Atraumatic, PERRLA, EOMI, Normocephalic Oral: Nasal cannula during daytime. On BiPAP during sleep and at night. Neck: Supple, No JVD, Negative Carotid Bruits Lungs: Air entry severely diminished in right lung, but mildly improved compared to yesterday. On nasal cannula and BiPAP Cardiovascular: Regular rate, Regular Rhythm, Normal S1, Normal S2, systolic murmur present LLSB Abdomen: Bowel Sounds Present, Soft, Non Tender, Non-Distended : No renal angle tenderness. No suprapubic tenderness. Extremities: Bilateral 1+ pitting edema, Capillary Refill Less than 3 Seconds Skin: No rashes, No breakdown Musculoskeletal: ROM restricted at hip and knee joints. Muscle strength 4/5 at hip knee and ankle joints. Neurological: Cranial nerves II-XII grossly intact, DTR 2+/4. No acute focal deficit Psych/Mental Status: Flat affect. Assessment & Plan Assessment/Plan (1) Pneumonia: PLAN: Plan This is 76-year-old female was admitted for shortness of breath, increased cough fatigue, weakness, nausea vomiting after chemotherapy 2 weeks ago. 1. Complicated multifocal multilobular pneumonia: CT chest was done in ED and compared with the previous CT chest of March 2022. It shows mild decrease of mass/consolidation in the right upper lobe, superior segment of right lower lobe and left upper lobe although to me it looks not significant decrease. He also suspicion of increased progression of metastasis with increase in the size of left lower lobe pulmonary nodule. New patchy opacity left upper lobe concerning for pneumonia/metastasis. [facility] Started on IV antibiotics vancomycin and Zosyn. Patient does not have true allergy with cefadroxil as she had multiple times cefazolin and Zosyn and cefepime. Pneumonia work-up ordered. Continue bronchodilator every 6 hourly, incentive spirometry, Pep. 05/27: Preliminary sputum culture this time shows 3+ gram-positive rods and 3+ GPC. A previous sputum culture in December 2021x2 shows Pseudomonas rare growth and rare Briana albicans. His BAL on June 2021 also showed Pseudomonas. It is resistant to fluoroquinolones but sensitive to gentamicin and Zosyn. Dr. Watters called me yesterday and asked for double antipseudomonal coverage. Patient already on Zosyn. He recommended tobramycin IV which ID did not agree because of high toxicity profile. After that, tobramycin 300 mg elation 1 dose was tried and patient felt better in the morning and could get off BiPAP for some time. Yesterday had a long telephone call with patient's power of defense attorney for health, Mrs. [place], she is out of state. We discussed her prolonged illness with lung cancer, chemotherapy and radiotherapy and recurrent Pseudomonas infection in NovemberDecember 2021. She was also admitted in March and December 2021. She had bronchoscopy by Dr. Watters in June 2021 showed right upper lobe pneumonia and BAL culture as mentioned above. Discussed with the pharmacist and ID and started on tobramycin 300 mg nebulization twice daily for 7 days. I also discussed with retail sales consultant. 05/28: ID consult reviewed. Fever improved. Respiratory panel, urinary antigens are negative. 05/29: Vancomycin was started on 05/27. Overall seems improving. IV Zosyn was changed to meropenem given borderline RODRIGO for Zosyn. Patient has leukocytosis probably due to IV Solu-Medrol but may be from infection too. Bands 6%. USAMA on CKD stage IIIb: Patient was admitted with creatinine 0.99, 1.0 and went up to 2.38.Her baseline creatinine clearance is around 40 mill per minute. USAMA unclear whether due to prerenal from nausea vomiting chemotherapeutics adverse effect or medication. Tobramycin nebulization usually does not cause USAMA but has been few rare case reports. Education Sales Consultant is consulted. Discussed with the gag writer and tobramycin not concern for USAMA. 05/29: Worsening of creatinine. Education Sales Consultant on board. IV Zosyn changed to meropenem. 2. Chemotherapeutic adverse effect including loss of appetite, nausea, vomiting and diarrhea: Diarrhea has improved. Needs to be aggressive rehydration. Urine output was dark and yellow in ED. Patient treated adequately rehydrated. 05/28: Patient had diarrhea. Stool studies ordered. 05/29: Improvement in hemoglobin. 3. Chronic hypoxic and hypercarbic respiratory failure probably due to obesity hypoventilation syndrome complicated with pneumonia and lung cancer: Patient on 4 L of oxygen at at home 28/12 and he wears BiPAP at night. 4. Stage III NSCLC: Patient currently undergoing chemotherapy. Patient had radiotherapy. She follows Dr. Dan. 5. Paroxysmal A. fib on amiodarone, nadolol and Eliquis: Continued. 6. Fall, generalized weakness failure to thrive: CT head and CT C-spine was done which did not show any acute abnormality. 7. Hypertension: On nadolol. 8. Diabetes mellitus type II: Accu-Cheks and cover with Humalog sliding scale. Patient on scheduled insulin as per home dose and will titrate as per Accu-Cheks 9. Anxiety and depression: Patient has ADHD. On methylphenidate and Paxil. 10. DORY/OSH on BiPAP at night 11. VTE prophylaxis on Eliquis Total time of the visit including total time spent in counseling or coordination of care, (more than 50% of the total time, spent in obtaining medical information from nurses and other ancillary care providers,explaining to the patient about labs, imaging, diagnosis and management of active complex medical conditions), discussion with ID and retail sales consultant and daughter, review of labs and imaging is 50 minutes. Living will/advanced directive/end of life care: Patient does have living will or advanced directive. His power of defense attorney is daughter, Mrs. Pratt. After discussion of benefits/risks procedures involved with full code, DNR CC arrest and DNR CC, the patient very well knows that she is DNR CC arrest. Patient doesn't want artificial life support including intubation, tube feed, ventilator and/chest compression, central venous catheter, vasopressor and DC shock if needed but she is okay with BiPAP or CPAP Clinical Impression(s) from Imaging Studies Chest X-Ray 05/23/22 10:17 IMPRESSION: No significant interval change. Brain CT 05/23/22 10:34 IMPRESSION: No acute intracranial process identified. Chronic involutional and white matter changes. Severe chronic maxillary sinusitis. Chest CT 05/23/22 10:34 IMPRESSION: Mildly decreased size of masses or consolidation in the right upper lobe, superior segment of the right lower lobe, and left upper lobe. New spiculated nodular opacities scattered in the right lung and new patchy opacity in the left upper lobe, which may represent new regions of pneumonia or metastasis. Increased size of left lower lobe pulmonary nodule concerning for progression of metastasis. Cervical Spine CT 05/23/22 10:37 IMPRESSION: No evidence of acute cervical spinal fracture or dislocation. Multilevel degenerative change. Charges/Coding Visit Charges Inpatient E&M: 52911 Subs Hosp L3
--- NOTE | 2022-05-29 16:37 | CPS ---
Refsued to do chest vest therapy.
[2022-05-29 16:50] LABS: Bedside Glucose 412 mg/dL (74-106)
[2022-05-29] MEDS: Atorvastatin Calcium 40 MG Tablet PO (21:36)
[2022-05-29] MEDS: Pramipexole Di-HCl 0.5 MG Tablet PO (21:36)
[2022-05-29 23:45] LABS: Bedside Glucose 332 mg/dL (74-106)
[2022-05-30] VITALS (14 sets, daily range): BP systolic 142–150; BP diastolic 62–82; PULSE 57–75; RESP 14–26; TEMP 36.4–36.6; O2SAT 66–98
[2022-05-30 05:57] LABS: Hematocrit 27.8 % (37-47); Hemoglobin 8.5 g/dL (12.0-15.0); Mean Corp Hgb Conc 30.6 g/dL (32-36); Mean Platelet Vol. 9.3 fl (6.2-12.0); POSITIVE COUNT YES; POSITIVE DIFFERENTIAL YES; POSITIVE MORPHOLOGY YES; Platelet Count 354 K/mm3 (150-450); RBC Distribution Width CV 17.3 % (11.6-14.6); RBC Distribution Width SD 52.9 fl (35.1-43.9); Red Blood Count 3.27 M/mm3 (4.2-5.4)
[2022-05-30 06:14] LABS: Differential Indicated MANUAL DIFF; White Blood Count 31.1 K/mm3 (4.4-11.0)
[2022-05-30 06:21] LABS: AST(SGOT) 17 U/L (15-37); Alanine Aminotransfer ALT/SGPT 25 U/L (13-56); Albumin, Serum 1.9 g/dL (3.2-5.0); Alkaline Phosphatase 163 U/L (45-117); Anion Gap 5 (5-15); BUN 58 mg/dL (7-18); BUN/Creat Ratio 27.5 RATIO (10-20); Bilirubin, Direct 0.12 mg/dL (0.00-0.30); Calcium,Total 9.6 mg/dL (8.5-10.1); Chloride 105 mmol/L (98-107); Creatinine, Serum 2.11 mg/dL (0.55-1.02); EST Glomerular Filtration Rate 24 mL/min (>60); Est Glom Filt Rate - Afr Amer 29 mL/min (>60); Estimated Creatinine Clearance 19.06 ml/min; Globulin 4.5 g/dL (2.2-4.2); Glucose 318 mg/dL (74-106); Potassium 4.8 mmol/L (3.5-5.1); Protein, Total 6.4 g/dL (6.4-8.2); Sodium Level 138 mmol/L (136-145)
[2022-05-30] MEDS: Tobramycin 80 MG/2 ML Vial 300 MG INHALATION (06:40)
[2022-05-30] MEDS: Ipratropium/Albuterol Sulfate 3 ML AMPUL.NEB INHALATION ×4 (06:40→19:57)
[2022-05-30] MEDS: Insulin Lispro 100 UNIT/ML INSULN.PEN SC ×4 (06:49→21:35)
[2022-05-30 07:00] LABS: Lymphocyte 1 % (19-41); Metamyelocyte 4 % (0-1); Monocyte 4 % (0-10); Myelocyte 4 % (0-0); Neutrophil-Band 3 % (0-5); Neutrophil-Segmented 84 % (47-70); Total Cells Counted 100 (MANUAL DIFF)
[2022-05-30 07:02] LABS: Anisocytosis 2+; Microcytosis 1+; Platelet Estimate ADEQUATE (ADEQ); Polychromasia RARE
[2022-05-30 07:11] LABS: Bedside Glucose 324 mg/dL (74-106)
[2022-05-30] MEDS: 0.9% Normal Saline 1,000 ML 75 ML IV ×2 (08:21→20:24)
[2022-05-30] MEDS: Amiodarone 200 MG Tablet 100 MG PO ×2 (08:23→17:30)
[2022-05-30] MEDS: Nadolol 40 MG Tablet PO (08:24)
[2022-05-30] MEDS: predniSONE 20 MG Tablet 40 MG PO (08:24)
[2022-05-30] MEDS: guaiFENesin 1,200 MG Tablet 1200 MG PO ×2 (08:27→21:37)
[2022-05-30] MEDS: Nystatin Powder 15gm Bottle 1 APPLIC TOPICAL ×2 (08:27→20:25)
[2022-05-30] MEDS: Paroxetine 20 MG Tablet 40 MG PO (08:28)
--- NOTE | 2022-05-30 08:49 | PCM.PN.HOSP ---
Subjective Subjective Patient is a 76-year-old lady with history of non-small cell lung carcinoma admitted with shortness of breath, progressive generalized weakness. CT of the chest obtained on admission demonstrated multifocal lobular pneumonia Objective Data Objective Data Vital Signs: Vital Signs Temp Pulse Resp BP Pulse Ox O2 Del Method O2 Flow Rate 97.5 F L 70 20 H 142/75 H 94 Bi-pap 4 05/30/22 03:51 05/30/22 06:42 05/30/22 06:42 05/30/22 03:51 05/30/22 07:01 05/30/22 07:01 05/30/22 05:29 FiO2 35 05/30/22 07:01 Oxygen Flow Rate (L/min) 4 Oxygen Delivery Method Bi-pap Weight: 137.2 kg Body Mass Index (BMI) 51.3 Intake & Output: Intake and Output for Last 24 Hours 05/28/22 05/29/22 05/30/22 23:59 23:59 23:59 Intake Total 3566 / 3616 3156 / 3156 1060 / 1060 Output Total 1775 / 1775 800 / 1150 1100 / 1100 Balance 1791 / 1841 2355 / 40 Lab / Micro Data Result Diagrams: 05/30/22 04:37 05/30/22 04:37 Labs: Laboratory Results - last 24 hr 05/28/22 04:33: Diff Path Review Reviewed 05/29/22 04:16: Diff Path Review Reviewed 05/29/22 11:28: POC Glucose 406 H 05/29/22 16:12: POC Glucose 412 H 05/29/22 21:34: POC Glucose 332 H 05/30/22 04:37: WBC 31.1 H*, RBC 3.27 L, Hgb 8.5 L, Hct 27.8 L, MCV 85.0, MCH 26.0 L, MCHC 30.6 L, RDW Std Deviation 52.9 H, RDW Coeff of Aniceto 17.3 H, Plt Count 354, MPV 9.3, Neut % (Auto) Not Reportable, Total Counted 100, Neutrophils % (Manual) 84 H, Band Neutrophils % 3, Lymphocytes % (Manual) 1 L, Monocytes % (Manual) 4, Metamyelocytes % 4 H, Myelocytes % 4 H, Diff Path Review May foll, Platelet Estimate ADEQUATE, Polychromasia RARE, Anisocytosis 2+, Microcytosis 1+ 05/30/22 04:37: Sodium 138, Potassium 4.8, Chloride 105, Carbon Dioxide 28.0, Anion Gap 5, BUN 58 H, Creatinine 2.11 H, Estim Creat Clear Calc 19.06, Est GFR (MDRD) Af Amer 29 L, Est GFR (MDRD) Non-Af 24 L, BUN/Creatinine Ratio 27.5 H, Glucose 318 H, Calcium 9.6, Total Bilirubin 0.20, Direct Bilirubin 0.12, AST 17, ALT 25, Alkaline Phosphatase 163 H, Total Protein 6.4, Albumin 1.9 L, Globulin 4.5 H 05/30/22 06:48: POC Glucose 324 H Micro: Microbiology 05/26/22 18:20 Sputum, Expectorated/Coughed Gram Stain - Final 05/26/22 18:20 Sputum, Expectorated/Coughed Respiratory Culture - Final Pseudomonas aeroginosa 05/23/22 10:10 Blood Culture (Wb) - Port Blood Culture - Final No growth in 5 days. 05/28/22 15:47 Stool Stool Lactoferrin - Final 05/28/22 15:47 Stool Enteric Bacteriology - Final 05/28/22 15:47 Stool C. difficile DNA Amplification - Final 05/28/22 15:47 Stool Stool Occult Blood (RODRIGO) - Final Occult Blood Positive 05/23/22 12:13 Blood Culture (Wb) - Port Blood Culture - Final No growth in 5 days. 05/23/22 12:25 Urine, Clean Catch Urine Culture - Final Mixed Gram Positive Organisms 05/23/22 15:30 Mucosa - Nasopharyngeal Respiratory Panel (PCR) - Final 05/23/22 12:25 Urine Catheter - Catheter Legionella Antigen - Final 05/23/22 12:25 Urine Catheter - Catheter Streptococcus pneumoniae Antigen (M - Final 05/23/22 10:48 Nasal Secretion SARS-CoV-2 & FLU Antigen (Rapid) - Final Physical Exam Narrative GENERAL: Patient on BiPAP HEENT: Atraumatic; normocephalic EYES; Anicteric, Normal Conjunctiva NECK; supple, normal thyroid, RESPIRATORY: Diminished to auscultation CARDIOVASCULAR: Regular S1 S2, GI: soft, normoactive bowel sounds, : No Renal angle tenderness; EXTREMITIES: No edema, no clubbing, MUSCULOSKELETAL: no muscle wasting NEURO: Awake; no lateralizing signs. SKIN: No Rash PSYCH; Flat affect Assessment & Plan Assessment/Plan (1) Pneumonia: PLAN: Plan Patient is a 76-year-old lady with history of non-small cell lung carcinoma admitted with shortness of breath, progressive generalized weakness. CT of the chest obtained on admission demonstrated multifocal lobular pneumonia 1. Acute hypoxia ? Secondary to complicated postobstructive multifocal pneumonia. Patient admitted to regular nursing floor managed with noninvasive ventilation BiPAP. Patient managed with meropenem and inhaled tobramycin given patient history of Pseudomonas. Patient progressed being monitored with daily BMPs as well as oxygen requirement 2. Acute kidney injury ? Patient baseline creatinine as of 05/24/2022 was 1.0 patient creatinine peaked at 2.48, patient creatinine is 2.11 as of 05/30/2022. Patient being monitored with serial BMPs 3. Chronic hypoxic and hypercapnic respiratory failure ? Secondary to obesity hypoventilation syndrome as well as patient underlying lung CA patient is on 4 L oxygen at baseline 4. Stage III NSCLC ? Patient has had chemo and radiation patient is followed by Dr. Crouch 5. Paroxysmal A. fib ? Patient is on beta-blockers as well as amiodarone in addition to systemic anticoagulation with Eliquis continue 6. Hypertension - Blood pressure controlled, home medications continued with dose adjustment as needed 7. Diabetes mellitus type II -patient's oral hypoglycemics held. Placed on long acting insulin, Accu-Cheks a.c. and at bedtime and covered with sliding scale insulin 8. Depression with anxiety ? Patient is on Paxil did continue 9. Class III obesity with BMI of 53.6 ? Weight loss advised 10. Obesity hypoventilation syndrome ? Patient with baseline oxygen 11. Obstructive sleep apnea ? BiPAP at night 12. DVT prophylaxis ? On Eliquis Charges/Coding Visit Charges Inpatient E&M: 63603 Subs Hosp L3
--- NOTE | 2022-05-30 09:52 | PCM.PN.REN ---
Subjective Subjective Resting comfortably with BiPAP on. Denies any nausea or vomiting. Appetite still poor. Renal function improving with IV fluids Objective Data Objective Data Vital Signs: Vital Signs Temp Pulse Resp BP Pulse Ox O2 Del Method O2 Flow Rate 97.5 F L 70 20 H 142/75 H 94 Bi-pap 4 05/30/22 03:51 05/30/22 06:42 05/30/22 06:42 05/30/22 03:51 05/30/22 07:01 05/30/22 07:01 05/30/22 05:29 FiO2 35 05/30/22 07:01 Oxygen Flow Rate (L/min) 4 Oxygen Delivery Method Bi-pap Weight: 137.2 kg Body Mass Index (BMI) 51.3 Intake & Output: Intake and Output for Last 24 Hours 05/28/22 05/29/22 05/30/22 23:59 23:59 23:59 Intake Total 3566 / 3616 3156 / 3156 1120 / 1120 Output Total 1775 / 1775 800 / 1150 1100 / 1100 Balance 1791 / 1841 2355 Lab / Micro Data Result Diagrams: 05/30/22 04:37 05/30/22 04:37 Labs: Laboratory Results - last 24 hr 05/29/22 04:16: Diff Path Review Reviewed 05/29/22 11:28: POC Glucose 406 H 05/29/22 16:12: POC Glucose 412 H 05/29/22 21:34: POC Glucose 332 H 05/30/22 04:37: WBC 31.1 H*, RBC 3.27 L, Hgb 8.5 L, Hct 27.8 L, MCV 85.0, MCH 26.0 L, MCHC 30.6 L, RDW Std Deviation 52.9 H, RDW Coeff of Aniceto 17.3 H, Plt Count 354, MPV 9.3, Neut % (Auto) Not Reportable, Total Counted 100, Neutrophils % (Manual) 84 H, Band Neutrophils % 3, Lymphocytes % (Manual) 1 L, Monocytes % (Manual) 4, Metamyelocytes % 4 H, Myelocytes % 4 H, Diff Path Review May , Platelet Estimate ADEQUATE, Polychromasia RARE, Anisocytosis 2+, Microcytosis 1+ 05/30/22 04:37: Sodium 138, Potassium 4.8, Chloride 105, Carbon Dioxide 28.0, Anion Gap 5, BUN 58 H, Creatinine 2.11 H, Estim Creat Clear Calc 19.06, Est GFR (MDRD) Af Amer 29 L, Est GFR (MDRD) Non-Af 24 L, BUN/Creatinine Ratio 27.5 H, Glucose 318 H, Calcium 9.6, Total Bilirubin 0.20, Direct Bilirubin 0.12, AST 17, ALT 25, Alkaline Phosphatase 163 H, Total Protein 6.4, Albumin 1.9 L, Globulin 4.5 H 05/30/22 06:48: POC Glucose 324 H Micro: Microbiology 05/26/22 18:20 Sputum, Expectorated/Coughed Gram Stain - Final 05/26/22 18:20 Sputum, Expectorated/Coughed Respiratory Culture - Final Pseudomonas aeroginosa 05/23/22 10:10 Blood Culture (Wb) - Port Blood Culture - Final No growth in 5 days. 05/28/22 15:47 Stool Stool Lactoferrin - Final 05/28/22 15:47 Stool Enteric Bacteriology - Final 05/28/22 15:47 Stool C. difficile DNA Amplification - Final 05/28/22 15:47 Stool Stool Occult Blood (RODRIGO) - Final Occult Blood Positive 05/23/22 12:13 Blood Culture (Wb) - Port Blood Culture - Final No growth in 5 days. 05/23/22 12:25 Urine, Clean Catch Urine Culture - Final Mixed Gram Positive Organisms 05/23/22 15:30 Mucosa - Nasopharyngeal Respiratory Panel (PCR) - Final 05/23/22 12:25 Urine Catheter - Catheter Legionella Antigen - Final 05/23/22 12:25 Urine Catheter - Catheter Streptococcus pneumoniae Antigen (M - Final 05/23/22 10:48 Nasal Secretion SARS-CoV-2 & FLU Antigen (Rapid) - Final Physical Exam Const alert and oriented x3 Resp clear to auscultation bilaterally Resp Narrative: On BiPAP GI non-tender and non-distended GI Narrative: Obese Auscultation: normoactive bowel sounds Palpation: soft Extremity no clubbing, cyanosis or edema Assessment & Plan Assessment/Plan (1) Acute renal failure: PLAN: due to prerenal azotemia. Creatinine improving with IV fluids. No dialysis needed (2) Pneumonia: PLAN: antibiotics renal dosed. (3) Sleep apnea: QUALIFIERS: Sleep apnea type: obstructive Qualified Code(s): G47.33 - Obstructive sleep apnea (adult) (pediatric) PLAN: on oxygen and BIPAP at home (4) Breast cancer, right breast: PLAN: s/p mastectomy (5) Metastatic cancer to lung: PLAN: bone mets s/p radiation, chemotherapy (6) Hypertension: PLAN: stable (7) Diabetes mellitus, type II: QUALIFIERS: Diabetes mellitus complication status: without complication Diabetes mellitus halfway insulin use: with termite inspector use Qualified Code(s): E11.9 - Type 2 diabetes mellitus without complications; Z79.4 - predatory animal exterminator (current) use of insulin PLAN: on insulin with neuropathy (8) Morbid obesity: (9) Diarrhea: PLAN: check stool for cdiff
[2022-05-30 11:35] LABS: Bedside Glucose 287 mg/dL (74-106)
[2022-05-30 14:58] LABS: Absolute Lymphocyte Count 0.31 X10^3/uL (0.83-4.51); Absolute Neutrophil Count 27.1 X10^3/uL (2.0-7.7)
[2022-05-30 16:11] LABS: Bedside Glucose 314 mg/dL (74-106)
[2022-05-30 19:36] LABS: Giardia Lamblia, Stool EIA Negative (Negative)
[2022-05-30] MEDS: Pramipexole Di-HCl 0.5 MG Tablet PO (20:22)
[2022-05-30] MEDS: Atorvastatin Calcium 40 MG Tablet PO (21:37)
[2022-05-30 22:05] LABS: Bedside Glucose 310 mg/dL (74-106)
[2022-05-31] VITALS (30 sets, daily range): BP systolic 125–212; BP diastolic 37–155; PULSE 50–66; RESP 13–30; TEMP 35.6–36.7; O2SAT 61–99
--- NOTE | 2022-05-31 02:43 | CPS ---
pt refused vest tx
[2022-05-31] MEDS: Insulin Lispro 100 UNIT/ML INSULN.PEN SC ×4 (06:46→22:06)
[2022-05-31 07:05] LABS: Hemoglobin 9.4 g/dL (12.0-15.0); Mean Corp Hgb Conc 30.3 g/dL (32-36); Mean Corpuscular Hgb 25.2 pg (27.0-32.0); Mean Corpuscular Volume 83.1 fL (81-99); Mean Platelet Vol. 9.4 fl (6.2-12.0); POSITIVE COUNT YES; POSITIVE DIFFERENTIAL YES; POSITIVE MORPHOLOGY YES; Platelet Count 351 K/mm3 (150-450); RBC Distribution Width CV 17.6 % (11.6-14.6); RBC Distribution Width SD 51.7 fl (35.1-43.9); Red Blood Count 3.73 M/mm3 (4.2-5.4); White Blood Count 41.8 K/mm3 (4.4-11.0)
[2022-05-31] MEDS: Ipratropium/Albuterol Sulfate 3 ML AMPUL.NEB INHALATION ×4 (07:13→19:00)
[2022-05-31] MEDS: Tobramycin 80 MG/2 ML Vial 300 MG INHALATION ×2 (07:13→20:43)
--- NOTE | 2022-05-31 07:13 | CPS ---
Declined Vest Therapy @this time.
[2022-05-31 07:21] LABS: Bedside Glucose 260 mg/dL (74-106)
[2022-05-31 07:24] LABS: Differential Indicated MANUAL DIFF
[2022-05-31 07:35] LABS: Anion Gap 7 (5-15); BUN 53 mg/dL (7-18); BUN/Creat Ratio 30.5 RATIO (10-20); Calcium,Total 9.7 mg/dL (8.5-10.1); Chloride 108 mmol/L (98-107); Creatinine, Serum 1.74 mg/dL (0.55-1.02); EST Glomerular Filtration Rate 30 mL/min (>60); Est Glom Filt Rate - Afr Amer 37 mL/min (>60); Estimated Creatinine Clearance 23.11 ml/min; Glucose 274 mg/dL (74-106); Potassium 4.6 mmol/L (3.5-5.1); Sodium Level 141 mmol/L (136-145)
--- NOTE | 2022-05-31 08:02 | PCM.PN.HOSP ---
Subjective Subjective Patient seen no change in her condition. Still remains on BiPAP. Case discussed with nursing staff for patient BiPAP to be weaned off Objective Data Objective Data Vital Signs: Vital Signs Temp Pulse Resp BP Pulse Ox O2 Del Method O2 Flow Rate 97.6 F L 60 28 H 151/54 H 93 Bi-pap 4 05/31/22 04:42 05/31/22 07:13 05/31/22 07:13 05/31/22 04:42 05/31/22 07:12 05/31/22 04:42 05/30/22 05:29 FiO2 40 05/31/22 07:12 Oxygen Flow Rate (L/min) 4 Oxygen Delivery Method Bi-pap Weight: 134.7 kg Body Mass Index (BMI) 51.3 Intake & Output: Intake and Output for Last 24 Hours 05/29/22 05/30/22 05/31/22 23:59 23:59 23:59 Intake Total 3156 / 3156 2483.75 / 2483.75 150 / 150 Output Total 800 / 1150 3100 / 3100 600 / 600 Balance 2355 -616.25 / -616.25 -450 / -450 Lab / Micro Data Result Diagrams: 05/31/22 06:50 05/31/22 06:50 Labs: Laboratory Results - last 24 hr 05/28/22 15:47: Stl Giardia Antigen Negative 05/30/22 04:37: Absolute Neuts (auto) 27.1 H, Absolute Lymphs (auto) 0.31 L 05/30/22 11:03: POC Glucose 287 H 05/30/22 15:51: POC Glucose 314 H 05/30/22 21:32: POC Glucose 310 H 05/31/22 06:45: POC Glucose 260 H 05/31/22 06:50: WBC 41.8 H*, RBC 3.73 L, Hgb 9.4 L, Hct 31.0 L, MCV 83.1, MCH 25.2 L, MCHC 30.3 L, RDW Std Deviation 51.7 H, RDW Coeff of Aniceto 17.6 H, Plt Count 351, MPV 9.4, Neut % (Auto) Not Reportable 05/31/22 06:50: Sodium 141, Potassium 4.6, Chloride 108 H, Carbon Dioxide 26.0, Anion Gap 7, BUN 53 H, Creatinine 1.74 H, Estim Creat Clear Calc 23.11, Est GFR (MDRD) Af Amer 37 L, Est GFR (MDRD) Non-Af 30 L, BUN/Creatinine Ratio 30.5 H, Glucose 274 H, Calcium 9.7 Micro: Microbiology 05/26/22 18:20 Sputum, Expectorated/Coughed Gram Stain - Final 05/26/22 18:20 Sputum, Expectorated/Coughed Respiratory Culture - Final Pseudomonas aeroginosa 05/23/22 10:10 Blood Culture (Wb) - Port Blood Culture - Final No growth in 5 days. 05/28/22 15:47 Stool Stool Lactoferrin - Final 05/28/22 15:47 Stool Enteric Bacteriology - Final 05/28/22 15:47 Stool C. difficile DNA Amplification - Final 05/28/22 15:47 Stool Stool Occult Blood (RODRIGO) - Final Occult Blood Positive 05/23/22 12:13 Blood Culture (Wb) - Port Blood Culture - Final No growth in 5 days. 05/23/22 12:25 Urine, Clean Catch Urine Culture - Final Mixed Gram Positive Organisms 05/23/22 15:30 Mucosa - Nasopharyngeal Respiratory Panel (PCR) - Final 05/23/22 12:25 Urine Catheter - Catheter Legionella Antigen - Final 05/23/22 12:25 Urine Catheter - Catheter Streptococcus pneumoniae Antigen (M - Final 05/23/22 10:48 Nasal Secretion SARS-CoV-2 & FLU Antigen (Rapid) - Final Physical Exam Narrative GENERAL: Patient on BiPAP HEENT: Atraumatic; normocephalic EYES; Anicteric, Normal Conjunctiva NECK; supple, normal thyroid, RESPIRATORY: Diminished to auscultation CARDIOVASCULAR: Regular S1 S2, GI: soft, normoactive bowel sounds, : No Renal angle tenderness; EXTREMITIES: No edema, no clubbing, MUSCULOSKELETAL: no muscle wasting NEURO: Awake; no lateralizing signs. SKIN: No Rash PSYCH; Flat affect Assessment & Plan Assessment/Plan (1) Pneumonia: PLAN: Plan Patient is a 76-year-old lady with history of non-small cell lung carcinoma admitted with shortness of breath, progressive generalized weakness. CT of the chest obtained on admission demonstrated multifocal lobular pneumonia 1. Acute hypoxia ? Secondary to complicated postobstructive multifocal pneumonia. Patient admitted to regular nursing floor managed with noninvasive ventilation BiPAP. Patient managed with meropenem and inhaled tobramycin given patient history of Pseudomonas. Patient progressed being monitored with daily BMPs as well as oxygen requirement -05/31/2022; patient seen no change in her condition. Still remains on BiPAP. Case discussed with nursing staff for patient BiPAP to be weaned off 2. Acute kidney injury ? Patient baseline creatinine as of 05/24/2022 was 1.0 patient creatinine peaked at 2.48, patient creatinine is 2.11 as of 05/30/2022. Patient being monitored with serial BMPs 3. Chronic hypoxic and hypercapnic respiratory failure ? Secondary to obesity hypoventilation syndrome as well as patient underlying lung CA patient is on 4 L oxygen at baseline 4. Stage III NSCLC ? Patient has had chemo and radiation patient is followed by Dr. Crouch 5. Paroxysmal A. fib ? Patient is on beta-blockers as well as amiodarone in addition to systemic anticoagulation with Eliquis continue 6. Hypertension - Blood pressure controlled, home medications continued with dose adjustment as needed 7. Diabetes mellitus type II -patient's oral hypoglycemics held. Placed on long acting insulin, Accu-Cheks a.c. and at bedtime and covered with sliding scale insulin 8. Depression with anxiety ? Patient is on Paxil did continue 9. Class III obesity with BMI of 53.6 ? Weight loss advised 10. Obesity hypoventilation syndrome ? Patient with baseline oxygen 11. Obstructive sleep apnea ? BiPAP at night 12. DVT prophylaxis ? On Eliquis Charges/Coding Visit Charges Inpatient E&M: 01873 Subs Hosp L2
[2022-05-31 08:28] LABS: Anisocytosis 1+; Lymphocyte 2 % (19-41); Monocyte 3 % (0-10); Neutrophil-Segmented 95 % (47-70); Polychromasia 1+; Total Cells Counted 100 (MANUAL DIFF)
[2022-05-31 08:30] LABS: Absolute Lymphocyte Count 0.84 X10^3/uL (0.83-4.51); Absolute Neutrophil Count 39.7 X10^3/uL (2.0-7.7); Platelet Estimate ADEQUATE (ADEQ)
[2022-05-31] MEDS: APIXABAN 5 MG TABLET PO (08:42)
[2022-05-31] MEDS: guaiFENesin 1,200 MG Tablet 1200 MG PO (08:42)
[2022-05-31] MEDS: Paroxetine 20 MG Tablet 40 MG PO (08:42)
[2022-05-31] MEDS: predniSONE 20 MG Tablet 40 MG PO (08:42)
[2022-05-31] MEDS: Nadolol 40 MG Tablet PO (08:43)
[2022-05-31] MEDS: 0.9% Normal Saline 1,000 ML 75 ML IV (08:43)
[2022-05-31] MEDS: Amiodarone 200 MG Tablet 100 MG PO (08:43)
[2022-05-31] MEDS: Nystatin Powder 15gm Bottle 1 APPLIC TOPICAL (08:44)
--- NOTE | 2022-05-31 11:00 | NURSING ---
Dr. Brewster aware family wants code status changed. Daughters POA text sent to Dr. Brewster.
[2022-05-31 12:11] LABS: Bedside Glucose 306 mg/dL (74-106)
--- NOTE | 2022-05-31 15:19 | CPS ---
Pt declined Vest Therapy, too tired.
[2022-05-31 15:41] LABS: Allen Test Positive; Base Excess 4 mmol/L (-2 to +2); Bicarbonate 27.9 mmol/L (22-26); Blood Gas Specimen Type ART; FI02 40; Mode BiLevel; O2 Delivery Device BiPAP; PO2 106 mmHG (75-100); RR 14; SITE R Radial; SO2 98 % (95-99); Total Carbon Dioxide 29 mmol/L; Vt 425; pCO2 42.8 mmHg (35-45); pH 7.42 (7.35-7.45)
--- NOTE | 2022-05-31 16:23 | RAD_ITS ---
STUDY: X-RAY CHEST REASON FOR EXAM: Female, 76 years old. DYSPNEA TECHNIQUE: Single AP portable view of the chest. COMPARISON: 05/25/2022 FINDINGS: Right internal jugular chest port which is unchanged. Increase in alveolar opacity me upper left lung consistent with worsening left upper lobe pneumonia. No change in right lung scarring and pleural thickening. There is no demonstrated pleural abnormality. There is moderate cardiac enlargement. Normal mediastinum and tanna. Normal visualized pulmonary arteries. Normal visualized aortic arch and descending thoracic aorta. Normal visualized thoracic spine. Normal visualized ribs, clavicles, and shoulders. There is no demonstrated abnormality of the visualized soft tissue structures of the upper abdomen. RAD/Chest 1 View (Portable) IMPRESSION: Worsening left upper lobe pneumonia. Electronically Signed: Jose German MD at 16:39 EST ,
[2022-05-31 17:15] LABS: Bedside Glucose 273 mg/dL (74-106)
--- NOTE | 2022-05-31 17:17 | NURSING ---
Report called to ICU patient being transferred Per DR. Brewster due to respiratory status.
[2022-05-31] MEDS: Furosemide 100 MG/10 ML Vial 60 MG IV (18:55)
[2022-05-31 19:05] LABS: Bedside Glucose 371 mg/dL (74-106)
[2022-05-31 22:31] LABS: Bedside Glucose 344 mg/dL (74-106)
[2022-06-01] VITALS (38 sets, daily range): BP systolic 123–179; BP diastolic 38–93; PULSE 48–63; RESP 10–30; TEMP 35.8–36.6; O2SAT 92–99
[2022-06-01 04:11] LABS: Absolute Lymphocyte Count 0.29 X10^3/uL (0.83-4.51); Absolute Neutrophil Count 28.9 X10^3/uL (2.0-7.7); Basophil# 0.07 X10^3/uL; Basophil% 0.2 % (0-1); Hematocrit 28.2 % (37-47); Hemoglobin 8.6 g/dL (12.0-15.0); Lymphocyte # 0.29 X10^3/ul (0.83-4.51); Lymphocyte % 0.9 % (19-41); Mean Corp Hgb Conc 30.5 g/dL (32-36); Mean Corpuscular Volume 85.2 fL (81-99); Mean Platelet Vol. 9.6 fl (6.2-12.0); Monocyte# 0.72 X10^3/uL; Monocyte% 2.3 % (0-10); NRBC Flagged by Analyzer 0.1 % (0-5); Neutrophil # 28.92 X10^3/uL (2.7-7.7); Neutrophil % 92.7 % (47-70); POSITIVE COUNT YES; POSITIVE DIFFERENTIAL YES; Platelet Count 276 K/mm3 (150-450); RBC Distribution Width CV 17.8 % (11.6-14.6); RBC Distribution Width SD 54.1 fl (35.1-43.9); Red Blood Count 3.31 M/mm3 (4.2-5.4); White Blood Count 31.2 K/mm3 (4.4-11.0)
[2022-06-01 04:23] LABS: Anion Gap 3 (5-15); BUN 50 mg/dL (7-18); BUN/Creat Ratio 28.6 RATIO (10-20); Calcium,Total 9.8 mg/dL (8.5-10.1); Chloride 108 mmol/L (98-107); Creatinine, Serum 1.75 mg/dL (0.55-1.02); EST Glomerular Filtration Rate 30 mL/min (>60); Est Glom Filt Rate - Afr Amer 36 mL/min (>60); Estimated Creatinine Clearance 22.98 ml/min; Glucose 259 mg/dL (74-106); Potassium 4.3 mmol/L (3.5-5.1); Sodium Level 144 mmol/L (136-145)
[2022-06-01 04:24] LABS: Differential Indicated SCAN CRITERIA MET
[2022-06-01 06:13] LABS: Anisocytosis 1+
[2022-06-01] MEDS: Tobramycin 80 MG/2 ML Vial 300 MG INHALATION ×2 (07:00→19:10)
[2022-06-01] MEDS: Ipratropium/Albuterol Sulfate 3 ML AMPUL.NEB INHALATION ×4 (07:00→19:10)
--- NOTE | 2022-06-01 07:09 | PN.CC_ITS ---
Assessment & Plan Assessment/Plan (1) Pneumonia: (2) Cancer: (3) Sleep apnea: QUALIFIERS: Sleep apnea type: obstructive Qualified Code(s): G47.33 - Obstructive sleep apnea (adult) (pediatric) PLAN: Plan RECOMMENDATIONS: 1. Continue antimicrobials per ID recommendations. 2. Stop continuous IV fluids. Check BNP. 3. Gentle diuresis as tolerated by hemodynamics and renal function. 4. Wean supplemental oxygen to maintain saturations at or above 90%. 5. Continue BiPAP therapy with sleep. 6. Continue bronchodilators and prednisone wean. 7. Once transferred out of ICU, recommend consultation be placed to Dr. Watters (patient's primary rn recruitment) IMPRESSIONS: 1. Complicated multilobar pneumonia in the setting of lung cancer and chemotherapy The patient has a reported history of postobstructive pneumonia involving the right upper lobe. Her chest imaging demonstrates multilobar infiltrates. She is currently growing Pseudomonas from culture, with antimicrobials being managed by infectious diseases. The patient's recent respiratory decompensation is likely the consequence of hypervolemia. I would recommend discontinuation of her IV fluids and gentle diuresis. The patient should be maintained on BiPAP therapy with naps and nightly. Continue bronchodilators and prednisone wean. Once transferred out of the medical intensive care unit, consider consultation to the patient's primary rn recruitment, Dr. Watters. 2. Debility secondary to chemotherapeutic adverse effects and radiation The patient with significant GI complications associated with chemotherapy. Dr. Crouch has been following and counts appear to be adequate at this time. No indication for transfusion. 3. Paroxysmal A. fib/diabetes mellitus/morbid obesity/anxiety/depression/DORY Complicates care, management, recovery and prognosis. Continue baseline medications. This note was generated with [employer] dictation software. It may contain incorrect words, spelling, and punctuation that were not noted in checking the note before signing. Subjective Subjective The patient was previously being followed by pulmonary medicine due to a complicated multilobar pneumonia in the setting of lung cancer on chemotherapy. We signed off from a consultation standpoint on May 29 after the patient had returned back to her baseline supplemental oxygen requirement. The patient then developed renal insufficiency and was started on IV fluids. She is currently documented to be overall net +9.3 L for the hospitalization. Her creatinine is noted to be 1.75 this morning. White count remains elevated at 31,000 with a hemoglobin of 8.6 g/dL. The patient reported that she wears 4 L/min of supplemental oxygen at her baseline. Objective Data Objective Data The patient's most recent lab work, culture data and imaging studies have all been personally reviewed. Sputum culture dated May 26 was positive for Pseudomonas. Vital Signs: Vital Signs Temp Pulse Resp BP Pulse Ox O2 Del Method O2 Flow Rate 96.9 F L 55 L 27 H 164/53 H 96 Nasal Cannula 4 06/01/22 06:00 06/01/22 06:00 06/01/22 07:01 06/01/22 06:00 06/01/22 07:01 06/01/22 07:01 06/01/22 07:01 FiO2 40 06/01/22 07:01 Oxygen Flow Rate (L/min) 4 Oxygen Delivery Method Nasal Cannula Weight: 291 lb 0.163 oz Body Mass Index (BMI) 51.3 Intake & Output: Intake and Output for Last 24 Hours 05/30/22 05/31/22 06/01/22 23:59 23:59 23:59 Intake Total 2483.75 / 2483.75 1898.75 / 1898.75 300 / 300 Output Total 3100 / 3100 1580 / 1580 1025 / 1025 Balance -616.25 / -616.25 318.75 / 318.75 -725 / -725 Lab / Micro Data Attestation: I reviewed the patient's lab results. Result Diagrams: 06/01/22 03:55 06/01/22 03:55 Labs: Laboratory Results - last 24 hr 05/31/22 06:45: POC Glucose 260 H 05/31/22 06:50: WBC 41.8 H*, RBC 3.73 L, Hgb 9.4 L, Hct 31.0 L, MCV 83.1, MCH 25.2 L, MCHC 30.3 L, RDW Std Deviation 51.7 H, RDW Coeff of Aniceto 17.6 H, Plt Coun t 351, MPV 9.4, Neut % (Auto) Not Reportable, Absolute Neuts (auto) 39.7 H, A bsolute Lymphs (auto) 0.84, Total Counted 100, Neutrophils % (Manual) 95 H, Lymphocytes % (Manual) 2 L, Monocytes % (Manual) 3, Diff Path Review October, Platelet Estimate ADEQUATE, Polychromasia 1+, Anisocytosis 1+ 05/31/22 06:50: Sodium 141, Potassium 4.6, Chloride 108 H, Carbon Dioxide 26.0, Anion Gap 7, BUN 53 H, Creatinine 1.74 H, Estim Creat Clear Calc 23.11, Est GFR (MDRD) Af Amer 37 L, Est GFR (MDRD) Non-Af 30 L, BUN/Creatinine Ratio 30.5 H, Glucose 274 H, Calcium 9.7 05/31/22 11:51: POC Glucose 306 H 05/31/22 16:14: POC Glucose 273 H 05/31/22 18:43: POC Glucose 371 H 05/31/22 22:05: POC Glucose 344 H 06/01/22 03:55: WBC 31.2 H*, RBC 3.31 L, Hgb 8.6 L, Hct 28.2 L, MCV 85.2, MCH 26.0 L, MCHC 30.5 L, RDW Std Deviation 54.1 H, RDW Coeff of Aniceto 17.8 H, Plt Count 276, MPV 9.6, Immature Gran % (Auto) 3.900 H, Neut % (Auto) 92.7 H, Lymph % (Auto) 0.9 L, Henry % (Auto) 2.3, Eos % (Auto) 0.0, Baso % (Auto) 0.2, Absolute Neuts (auto) 28.9 H, Absolute Lymphs (auto) 0.29 L, Nucleated RBC % 0.1, Diff Path Review May foll, Anisocytosis 1+ 06/01/22 03:55: Sodium 144, Potassium 4.3, Chloride 108 H, Carbon Dioxide 33.0 H , Anion Gap 3 L, BUN 50 H, Creatinine 1.75 H, Estim Creat Clear Calc 22.98, Est GFR (MDRD) Af Amer 36 L, Est GFR (MDRD) Non-Af 30 L, BUN/Creatinine Ratio 28.6 H , Glucose 259 H, Calcium 9.8 Micro: Microbiology 05/26/22 18:20 Sputum, Expectorated/Coughed Gram Stain - Final 05/26/22 18:20 Sputum, Expectorated/Coughed Respiratory Culture - Final Pseudomonas aeroginosa 05/23/22 10:10 Blood Culture (Wb) - Port Blood Culture - Final No growth in 5 days. 05/28/22 15:47 Stool Stool Lactoferrin - Final 05/28/22 15:47 Stool Enteric Bacteriology - Final 05/28/22 15:47 Stool C. difficile DNA Amplification - Final 05/28/22 15:47 Stool Stool Occult Blood (RODRIGO) - Final Occult Blood Positive 05/23/22 12:13 Blood Culture (Wb) - Port Blood Culture - Final No growth in 5 days. 05/23/22 12:25 Urine, Clean Catch Urine Culture - Final Mixed Gram Positive Organisms 05/23/22 15:30 Mucosa - Nasopharyngeal Respiratory Panel (PCR) - Final 05/23/22 12:25 Urine Catheter - Catheter Legionella Antigen - Final 05/23/22 12:25 Urine Catheter - Catheter Streptococcus pneumoniae Antigen (M - Final 05/23/22 10:48 Nasal Secretion SARS-CoV-2 & FLU Antigen (Rapid) - Final ABG Data ABG results: ABG 05/31/22 15:36 Specimen Type ART Sample Site R Radial pH 7.42 Bicarbonate Actual 27.9 H Total CO2 29 Base Excess 4 H O2 Saturation 98 O2 % 40 ABG pCO2 42.8 ABG pO2 106 H Vamsi Test Positive Respiration Rate 14 O2 Delivery Device BiPAP Vent Mode BiLevel Tidal Volume 425 Clinical Comments Radiography Diagnostic Testing: Radiology Impression Chest X-Ray 05/31/22 16:23 IMPRESSION: Worsening left upper lobe pneumonia. Electronically Signed: Jose German MD at 16:39 EST Reading Location ID and State: [address] [place] [address] Tel , Service support , Physical Exam Const alert and no apparent distress General Appearance: cooperative and on BiPAP Nutritional Appearance: morbidly obese HEENT normocephalic and head/scalp atraumatic Eyes PERRL, EOMs intact bilaterally and conjunctivae normal Neck supple General: trachea midline Chest inspection of chest normal Resp normal respiratory effort Auscultation: diminished lung sounds Cardio regular rate and regular rhythm GI normal to inspection, nondistended, normoactive bowel sounds Extremity General Extremity: edema; Negative for clubbing Skin no rashes or lesions noted Neuro CN's II-XII intact bilaterally, moves all extremities and no focal motor deficits Psych cooperative and affect normal Charges/Coding Visit Charges Inpatient E&M: 22681 Subs Hosp L3
--- NOTE | 2022-06-01 07:12 | PN.HOSP_ITS ---
Subjective Subjective Patient was transferred to the intensive care unit after CODE STATUS was changed to DNR CCA with intubation. Patient was given Lasix with good response. Per nursing staff patient has tolerated episodes of the vent on 4 L well. Checks x- ray obtained the day prior demonstrated worsening left upper lobe pneumonia. Patient remains on meropenem and inhaled tobramycin. WBC count finally trending down. Objective Data Objective Data Vital Signs: Vital Signs Temp Pulse Resp BP Pulse Ox O2 Del Method O2 Flow Rate 96.9 F L 55 L 27 H 164/53 H 96 Nasal Cannula 4 06/01/22 06:00 06/01/22 06:00 06/01/22 07:01 06/01/22 06:00 06/01/22 07:01 06/01/22 07:01 06/01/22 07:01 FiO2 40 06/01/22 07:01 Oxygen Flow Rate (L/min) 4 Oxygen Delivery Method Nasal Cannula Weight: 132 kg Body Mass Index (BMI) 51.3 Intake & Output: Intake and Output for Last 24 Hours 05/30/22 05/31/22 06/01/22 23:59 23:59 23:59 Intake Total 2483.75 / 2483.75 1898.75 / 1898.75 300 / 300 Output Total 3100 / 3100 1580 / 1580 1025 / 1025 Balance -616.25 / -616.25 318.75 / 318.75 -725 / -725 Lab / Micro Data Result Diagrams: 06/01/22 03:55 06/01/22 03:55 Labs: Laboratory Results - last 24 hr 05/31/22 06:45: POC Glucose 260 H 05/31/22 06:50: WBC 41.8 H*, RBC 3.73 L, Hgb 9.4 L, Hct 31.0 L, MCV 83.1, MCH 25.2 L, MCHC 30.3 L, RDW Std Deviation 51.7 H, RDW Coeff of Aniceto 17.6 H, Plt Count 351, MPV 9.4, Neut % (Auto) Not Reportable, Absolute Neuts (auto) 39.7 H, Absolute Lymphs (auto) 0.84, Total Counted 100, Neutrophils % (Manual) 95 H, Lymphocytes % (Manual) 2 L, Monocytes % (Manual) 3, Diff Path Review October, Platelet Estimate ADEQUATE, Polychromasia 1+, Anisocytosis 1+ 05/31/22 06:50: Sodium 141, Potassium 4.6, Chloride 108 H, Carbon Dioxide 26.0, Anion Gap 7, BUN 53 H, Creatinine 1.74 H, Estim Creat Clear Calc 23.11, Est GFR (MDRD) Af Amer 37 L, Est GFR (MDRD) Non-Af 30 L, BUN/Creatinine Ratio 30.5 H, Glucose 274 H, Calcium 9.7 05/31/22 11:51: POC Glucose 306 H 05/31/22 16:14: POC Glucose 273 H 05/31/22 18:43: POC Glucose 371 H 05/31/22 22:05: POC Glucose 344 H 06/01/22 03:55: WBC 31.2 H*, RBC 3.31 L, Hgb 8.6 L, Hct 28.2 L, MCV 85.2, MCH 26.0 L, MCHC 30.5 L, RDW Std Deviation 54.1 H, RDW Coeff of Aniceto 17.8 H, Plt Count 276, MPV 9.6, Immature Gran % (Auto) 3.900 H, Neut % (Auto) 92.7 H, Lymph % (Auto) 0.9 L, [place] % (Auto) 2.3, Eos % (Auto) 0.0, Baso % (Auto) 0.2, Absolute Neuts (auto) 28.9 H, Absolute Lymphs (auto) 0.29 L, Nucleated RBC % 0.1, Diff Path Review Marry linder, Anisocytosis 1+ 06/01/22 03:55: Sodium 144, Potassium 4.3, Chloride 108 H, Carbon Dioxide 33.0 H , Anion Gap 3 L, BUN 50 H, Creatinine 1.75 H, Estim Creat Clear Calc 22.98, Est GFR (MDRD) Af Amer 36 L, Est GFR (MDRD) Non-Af 30 L, BUN/Creatinine Ratio 28.6 H , Glucose 259 H, Calcium 9.8 Micro: Microbiology 05/26/22 18:20 Sputum, Expectorated/Coughed Gram Stain - Final 05/26/22 18:20 Sputum, Expectorated/Coughed Respiratory Culture - Final Pseudomonas aeroginosa 05/23/22 10:10 Blood Culture (Wb) - Port Blood Culture - Final No growth in 5 days. 05/28/22 15:47 Stool Stool Lactoferrin - Final 05/28/22 15:47 Stool Enteric Bacteriology - Final 05/28/22 15:47 Stool C. difficile DNA Amplification - Final 05/28/22 15:47 Stool Stool Occult Blood (RODRIGO) - Final Occult Blood Positive 05/23/22 12:13 Blood Culture (Wb) - Port Blood Culture - Final No growth in 5 days. 05/23/22 12:25 Urine, Clean Catch Urine Culture - Final Mixed Gram Positive Organisms 05/23/22 15:30 Mucosa - Nasopharyngeal Respiratory Panel (PCR) - Final 05/23/22 12:25 Urine Catheter - Catheter Legionella Antigen - Final 05/23/22 12:25 Urine Catheter - Catheter Streptococcus pneumoniae Antigen (M - Final 05/23/22 10:48 Nasal Secretion SARS-CoV-2 & FLU Antigen (Rapid) - Final ABG Data ABG results: ABG 05/31/22 15:36 Specimen Type ART Sample Site R Radial pH 7.42 Bicarbonate Actual 27.9 H Total CO2 29 Base Excess 4 H O2 Saturation 98 O2 % 40 ABG pCO2 42.8 ABG pO2 106 H Vamsi Test Positive Respiration Rate 14 O2 Delivery Device BiPAP Vent Mode BiLevel Tidal Volume 425 Clinical Comments Radiography Diagnostic Testing: Radiology Impression Chest X-Ray 05/31/22 16:23 IMPRESSION: Worsening left upper lobe pneumonia. Electronically Signed: Jose German MD at 16:39 EST , Physical Exam Narrative GENERAL: Patient on BiPAP HEENT: Atraumatic; normocephalic EYES; Anicteric, Normal Conjunctiva NECK; supple, normal thyroid, RESPIRATORY: Diminished to auscultation CARDIOVASCULAR: Regular S1 S2, GI: soft, normoactive bowel sounds, : No Renal angle tenderness; EXTREMITIES: edema, no clubbing, MUSCULOSKELETAL: no muscle wasting NEURO: Awake; no lateralizing signs. SKIN: No Rash PSYCH; Flat affect Assessment & Plan Assessment/Plan (1) Pneumonia: PLAN: Plan Patient is a 76-year-old lady with history of non-small cell lung carcinoma admitted with shortness of breath, progressive generalized weakness. CT of the chest obtained on admission demonstrated multifocal lobular pneumonia 1. Acute hypoxia ? Secondary to complicated postobstructive multifocal pneumonia. Patient admitted to regular nursing floor managed with noninvasive ventilation BiPAP. Patient managed with meropenem and inhaled tobramycin given patient history of Pseudomonas. Patient progressed being monitored with daily BMPs as well as oxygen requirement -05/31/2022; patient seen no change in her condition. Still remains on BiPAP. Case discussed with nursing staff for patient BiPAP to be weaned off ? 06/01/2022;Patient was transferred to the intensive care unit after CODE STATUS was changed to DNR CCA with intubation. Patient was given Lasix with good response. Per nursing staff patient has tolerated episodes of the vent on 4 L well. Chest x-ray obtained the day prior demonstrated worsening left upper lobe pneumonia. Patient remains on meropenem and inhaled tobramycin. WBC count finally trending down. Consult was placed to pulmonary medicine 2. Acute kidney injury ? Patient baseline creatinine as of 05/24/2022 was 1.0 patient creatinine peaked at 2.48, patient creatinine is 2.11 as of 05/30/2022. Patient being monitored with serial BMPs 3. Chronic hypoxic and hypercapnic respiratory failure ? Secondary to obesity hypoventilation syndrome as well as patient underlying darshan ng CA patient is on 4 L oxygen at baseline 4. Stage III NSCLC ? Patient has had chemo and radiation patient is followed by Dr. Crouch 5. Paroxysmal A. fib ? Patient is on beta-blockers as well as amiodarone in addition to systemic anticoagulation with Eliquis continue 6. Hypertension - Blood pressure controlled, home medications continued with dose adjustment as needed 7. Diabetes mellitus type II -patient's oral hypoglycemics held. Placed on long acting insulin, Accu-Cheks a.c. and at bedtime and covered with sliding scale insulin 8. Depression with anxiety ? Patient is on Paxil did continue 9. Class III obesity with BMI of 53.6 ? Weight loss advised 10. Obesity hypoventilation syndrome ? Patient with baseline oxygen 11. Obstructive sleep apnea ? BiPAP at night 12. DVT prophylaxis ? On Eliquis Charges/Coding Visit Charges Inpatient E&M: 48034 Subs Hosp L3
[2022-06-01] MEDS: Insulin Lispro 100 UNIT/ML INSULN.PEN SC ×4 (07:46→22:24)
[2022-06-01] MEDS: predniSONE 20 MG Tablet 40 MG PO (07:48)
[2022-06-01] MEDS: Paroxetine 20 MG Tablet 40 MG PO (07:48)
[2022-06-01] MEDS: Amiodarone 200 MG Tablet 100 MG PO ×2 (07:48→16:45)
[2022-06-01] MEDS: Nadolol 40 MG Tablet PO (07:49)
[2022-06-01] MEDS: APIXABAN 5 MG TABLET PO ×2 (07:49→22:24)
[2022-06-01] MEDS: guaiFENesin 1,200 MG Tablet 1200 MG PO ×2 (07:50→22:25)
[2022-06-01] MEDS: Furosemide 100 MG/10 ML Vial 60 MG IV (07:55)
[2022-06-01 08:25] LABS: Bedside Glucose 228 mg/dL (74-106)
[2022-06-01 08:43] LABS: BNP,B-Type NATRIURETIC PEPTIDE 807.8 pg/mL (0-100)
--- NOTE | 2022-06-01 11:00 | PCM.PN.ID ---
Physical Exam Narrative Moved to icu yesterday with worsened hypoxia, feeling a little better this AM, off bipap. Family at bedside. No fever. Some dyspnea and cough. Const alert and no apparent distress Resp Auscultation: diminished lung sounds Cardio regular rate and regular rhythm GI soft to palpation, non-tender and non-distended Extremity General Extremity: edema Skin no rashes or lesions noted ID ID: Route of nutrition/ use of supplements: [] Nutritional Intake: [] IV Site: [] Hansen Catheter: [] Assessment & Plan Assessment/Plan (1) Pneumonia: PLAN: Multifocal pneumonia, recent chemo and radiation for NSCLC. Not producing sputum. Resp viral panel neg, UAgs neg. Fever improved. MRSA pcr neg. On admit started on empiric zosyn. Vanc stopped 05/27. Overall improving. Tobramycin neb added by primary team. Sputum with pseudomonas, borderline RODRIGO for zosyn. Given RODRIGO and still increasing wbc and Cr, 05/29 changed zosyn to meropenem. Remains in icu. Will follow (2) Cancer:
[2022-06-01] MEDS: Nystatin Powder 15gm Bottle 1 APPLIC TOPICAL ×2 (11:35→22:25)
--- NOTE | 2022-06-01 11:50 | CPS ---
Refused vest at this time
[2022-06-01 11:55] LABS: Bedside Glucose 249 mg/dL (74-106)
--- NOTE | 2022-06-01 15:15 | CPS ---
refused vest at this time
[2022-06-01 17:10] LABS: Bedside Glucose 265 mg/dL (74-106)
[2022-06-01] MEDS: Pramipexole Di-HCl 0.5 MG Tablet PO (20:17)
[2022-06-01] MEDS: Atorvastatin Calcium 40 MG Tablet PO (22:25)
[2022-06-02] VITALS (24 sets, daily range): BP systolic 128–164; BP diastolic 50–83; PULSE 50–62; RESP 14–25; TEMP 36.5–36.8; O2SAT 90–97
[2022-06-02 02:36] LABS: Bedside Glucose 263 mg/dL (74-106)
[2022-06-02 06:03] LABS: Absolute Lymphocyte Count 0.35 X10^3/uL (0.83-4.51); Absolute Neutrophil Count 25.9 X10^3/uL (2.0-7.7); Basophil# 0.06 X10^3/uL; Basophil% 0.2 % (0-1); Eosinophil# 0.01 X10^3/uL; Hemoglobin 8.5 g/dL (12.0-15.0); Lymphocyte # 0.35 X10^3/ul (0.83-4.51); Lymphocyte % 1.3 % (19-41); Mean Corp Hgb Conc 29.3 g/dL (32-36); Mean Corpuscular Hgb 25.1 pg (27.0-32.0); Mean Corpuscular Volume 85.5 fL (81-99); Monocyte# 0.61 X10^3/uL; Monocyte% 2.2 % (0-10); NRBC Flagged by Analyzer 0.1 % (0-5); Neutrophil # 25.88 X10^3/uL (2.7-7.7); Neutrophil % 92.9 % (47-70); POSITIVE DIFFERENTIAL YES; Platelet Count 269 K/mm3 (150-450); RBC Distribution Width CV 18.4 % (11.6-14.6); RBC Distribution Width SD 55.9 fl (35.1-43.9); Red Blood Count 3.39 M/mm3 (4.2-5.4); White Blood Count 27.9 K/mm3 (4.4-11.0)
[2022-06-02 06:14] LABS: Differential Indicated SCAN CRITERIA MET
[2022-06-02 06:17] LABS: Anion Gap 4 (5-15); BUN 50 mg/dL (7-18); BUN/Creat Ratio 33.1 RATIO (10-20); Calcium,Total 9.9 mg/dL (8.5-10.1); Chloride 103 mmol/L (98-107); Creatinine, Serum 1.51 mg/dL (0.55-1.02); EST Glomerular Filtration Rate 36 mL/min (>60); Est Glom Filt Rate - Afr Amer 43 mL/min (>60); Estimated Creatinine Clearance 26.63 ml/min; Glucose 201 mg/dL (74-106); Potassium 3.7 mmol/L (3.5-5.1); Sodium Level 143 mmol/L (136-145)
--- NOTE | 2022-06-02 06:37 | PCM.PN.INT ---
Assessment & Plan Assessment/Plan (1) Pneumonia: (2) Cancer: (3) Sleep apnea: QUALIFIERS: Sleep apnea type: obstructive Qualified Code(s): G47.33 - Obstructive sleep apnea (adult) (pediatric) PLAN: Plan RECOMMENDATIONS: 1. Continue antimicrobials per ID recommendations. 2. Wean supplemental oxygen to maintain saturations at or above 90%. 3. Continue BiPAP therapy with sleep. 4. Continue bronchodilators and prednisone wean. 5. The patient is medically stable for transfer out of the intensive care unit. 6. Will sign off from a critical care perspective. IMPRESSIONS: 1. Complicated multilobar pneumonia in the setting of lung cancer and chemotherapy The patient has a reported history of postobstructive pneumonia involving the right upper lobe. Her chest imaging demonstrates multilobar infiltrates. She is currently growing Pseudomonas from culture, with antimicrobials being managed by infectious diseases. The patient's recent respiratory decompensation is likely the consequence of hypervolemia. Her oxygenation status improved with diuresis. She is currently maintaining appropriate oxygen saturations on her baseline 4 L/min with nocturnal BiPAP support. Plan to continue scheduled bronchodilators and prednisone wean. 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 Watters. 2. Debility secondary to chemotherapeutic adverse effects and radiation The patient with significant GI complications associated with chemotherapy. Dr. Crouch has been following and counts appear to be adequate at this time. No indication for transfusion. 3. Paroxysmal A. fib/diabetes mellitus/morbid obesity/anxiety/depression/DORY Complicates care, management, recovery and prognosis. Continue baseline medications. This note was generated with [employer] dictation software. It may contain incorrect words, spelling, and punctuation that were not noted in checking the note before signing. Subjective Subjective The patient was seen and examined at the bedside this morning. Events from the last 24 hours have been reviewed. The patient is currently documented to be overall net +6 L for the hospitalization. She has been tolerant of her baseline 4 L/min oxygen requirement along with nocturnal BiPAP support. Creatinine is stable this morning. Objective Data Objective Data The patient's most recent lab work, culture data and imaging studies have all been personally reviewed. Sputum culture dated May 26 was positive for Pseudomonas. Vital Signs: Vital Signs Temp Pulse Resp BP Pulse Ox O2 Del Method O2 Flow Rate 97.8 F 52 L 20 H 154/83 H 93 Bi-pap 4 06/02/22 03:00 06/02/22 05:00 06/02/22 05:00 06/02/22 05:00 06/02/22 05:00 06/02/22 05:00 06/01/22 19:10 FiO2 35 06/02/22 02:40 Oxygen Flow Rate (L/min) 4 Oxygen Delivery Method Bi-pap Weight: 288 lb 2.307 oz Body Mass Index (BMI) 51.3 Intake & Output: Intake and Output for Last 24 Hours 05/31/22 06/01/22 06/02/22 23:59 23:59 23:59 Intake Total 1898.75 / 1898.75 860 / 920 180 / 180 Output Total 1580 / 1580 4075 / 4575 925 / 925 Balance 318.75 / 318.75 -3215 / -3655 -745 / -745 Lab / Micro Data Attestation: I reviewed the patient's lab results. Result Diagrams: 06/02/22 05:45 06/02/22 05:45 Labs: Laboratory Results - last 24 hr 06/01/22 03:55: B-Natriuretic Peptide 807.8 H 06/01/22 07:45: POC Glucose 228 H 06/01/22 11:34: POC Glucose 249 H 06/01/22 16:43: POC Glucose 265 H 06/01/22 22:22: POC Glucose 263 H 06/02/22 05:45: WBC 27.9 H, RBC 3.39 L, Hgb 8.5 L, Hct 29.0 L, MCV 85.5, MCH 25.1 L, MCHC 29.3 L, RDW Std Deviation 55.9 H, RDW Coeff of Aniceto 18.4 H, Plt Count 269, MPV 10.0, Immature Gran % (Auto) 3.400 H, Neut % (Auto) 92.9 H, Lymph % (Auto) 1.3 L, [place] % (Auto) 2.2, Eos % (Auto) 0.0, Baso % (Auto) 0.2, Absolute Neuts (auto) 25.9 H, Absolute Lymphs (auto) 0.35 L, Nucleated RBC % 0.1 06/02/22 05:45: Sodium 143, Potassium 3.7, Chloride 103, Carbon Dioxide 36.0 H, Anion Gap 4 L, BUN 50 H, Creatinine 1.51 H, Estim Creat Clear Calc 26.63, Est GFR (MDRD) Af Amer 43 L, Est GFR (MDRD) Non-Af 36 L, BUN/Creatinine Ratio 33.1 H, Glucose 201 H, Calcium 9.9 Micro: Microbiology 05/26/22 18:20 Sputum, Expectorated/Coughed Gram Stain - Final 05/26/22 18:20 Sputum, Expectorated/Coughed Respiratory Culture - Final Pseudomonas aeroginosa 05/23/22 10:10 Blood Culture (Wb) - Port Blood Culture - Final No growth in 5 days. 05/28/22 15:47 Stool Stool Lactoferrin - Final 05/28/22 15:47 Stool Enteric Bacteriology - Final 05/28/22 15:47 Stool C. difficile DNA Amplification - Final 05/28/22 15:47 Stool Stool Occult Blood (RORDIGO) - Final Occult Blood Positive 05/23/22 12:13 Blood Culture (Wb) - Port Blood Culture - Final No growth in 5 days. 05/23/22 12:25 Urine, Clean Catch Urine Culture - Final Mixed Gram Positive Organisms 05/23/22 15:30 Mucosa - Nasopharyngeal Respiratory Panel (PCR) - Final 05/23/22 12:25 Urine Catheter - Catheter Legionella Antigen - Final 05/23/22 12:25 Urine Catheter - Catheter Streptococcus pneumoniae Antigen (M - Final 05/23/22 10:48 Nasal Secretion SARS-CoV-2 & FLU Antigen (Rapid) - Final ABG Data ABG results: ABG 05/31/22 15:36 Specimen Type ART Sample Site R Radial pH 7.42 Bicarbonate Actual 27.9 H Total CO2 29 Base Excess 4 H O2 Saturation 98 O2 % 40 ABG pCO2 42.8 ABG pO2 106 H Vamsi Test Positive Respiration Rate 14 O2 Delivery Device BiPAP Vent Mode BiLevel Tidal Volume 425 Clinical Comments Radiography Diagnostic Testing: Radiology Impression Chest X-Ray 05/31/22 16:23 IMPRESSION: Worsening left upper lobe pneumonia. Electronically Signed: Jose German MD at 16:39 EST , Physical Exam Const alert and no apparent distress General Appearance: cooperative Nutritional Appearance: morbidly obese HEENT normocephalic and head/scalp atraumatic Eyes PERRL, EOMs intact bilaterally and conjunctivae normal Neck supple General: trachea midline Chest inspection of chest normal Resp normal respiratory effort Auscultation: diminished lung sounds Cardio regular rate and regular rhythm GI normal to inspection, nondistended, normoactive bowel sounds Extremity General Extremity: edema; Negative for clubbing Skin no rashes or lesions noted Neuro CN's II-XII intact bilaterally, moves all extremities and no focal motor deficits Psych cooperative and affect normal Charges/Coding Visit Charges Inpatient E&M: 07850 Subs Hosp L2
[2022-06-02] MEDS: Tobramycin 80 MG/2 ML Vial 300 MG INHALATION (07:19)
[2022-06-02] MEDS: Ipratropium/Albuterol Sulfate 3 ML AMPUL.NEB INHALATION ×4 (07:19→19:06)
[2022-06-02 07:30] LABS: Bedside Glucose 189 mg/dL (74-106)
[2022-06-02 07:39] LABS: Anisocytosis 2+
[2022-06-02 07:40] LABS: Hypochromasia 1+
[2022-06-02] MEDS: Alteplase 2 MG/2 ML Vial IV (08:16)
[2022-06-02] MEDS: Insulin Lispro 100 UNIT/ML INSULN.PEN SC ×3 (08:17→21:40)
--- NOTE | 2022-06-02 10:08 | PCM.PN.ID ---
Physical Exam Narrative Feeling about the same. No fever, still cough and dyspnea. Const alert and no apparent distress Resp Auscultation: diminished lung sounds Cardio regular rate and regular rhythm GI soft to palpation, non-tender and non-distended Skin no rashes or lesions noted ID ID: Route of nutrition/ use of supplements: [] Nutritional Intake: [] IV Site: [] Hansen Catheter: [] Assessment & Plan Assessment/Plan (1) Pneumonia: PLAN: Multifocal pneumonia, recent chemo and radiation for NSCLC. Not producing sputum. Resp viral panel neg, UAgs neg. Fever improved. MRSA pcr neg. On admit started on empiric zosyn. Vanc stopped 05/27. Tobramycin neb added by primary team. Sputum with pseudomonas, borderline RODRIGO for zosyn. Given RODRIGO and still increasing wbc and Cr, 05/29 changed zosyn to meropenem. Remains in icu. USAMA and wbc slowly improving. Will follow (2) Cancer:
[2022-06-02] MEDS: predniSONE 20 MG Tablet 40 MG PO (10:38)
[2022-06-02] MEDS: Amiodarone 200 MG Tablet 100 MG PO ×2 (10:39→16:36)
[2022-06-02] MEDS: Nadolol 40 MG Tablet PO (10:40)
[2022-06-02] MEDS: guaiFENesin 1,200 MG Tablet 1200 MG PO ×2 (10:40→21:21)
[2022-06-02] MEDS: APIXABAN 5 MG TABLET PO ×2 (10:40→21:22)
[2022-06-02] MEDS: Nystatin Powder 15gm Bottle 1 APPLIC TOPICAL ×2 (10:41→21:22)
[2022-06-02] MEDS: Paroxetine 20 MG Tablet 40 MG PO (10:41)
[2022-06-02] MEDS: 0.9% Saline Lock 10 ML Syringe IV (10:42)
[2022-06-02 11:55] LABS: Bedside Glucose 213 mg/dL (74-106)
[2022-06-02 13:58] LABS: Pathologist Review Reviewed
[2022-06-02 14:05] LABS: Pathologist Review Reviewed
[2022-06-02 14:08] LABS: Pathologist Review Reviewed
[2022-06-02 15:46] LABS: Bedside Glucose 277 mg/dL (74-106)
--- NOTE | 2022-06-02 18:42 | PCM.PN.HOSP ---
Subjective Subjective Patient was seen and examined today in ICU, I talked briefly with critical care about her care today. Patient is not on oxygen at the time of my examination today, I talked with the daughter by phone who expressed concerns about transferring the patient back to [facility], I told her we could transfer her to PCU if a bed became available and the daughter was okay with that. I also stopped the patient's aerosolized tobramycin-I talked with infectious diseases about this and they did not feel the patient needed it. Objective Data Objective Data Vital Signs: Vital Signs Temp Pulse Resp BP Pulse Ox O2 Del Method O2 Flow Rate 98.1 F 59 L 14 146/58 H 95 Bi-pap 4 06/02/22 16:00 06/02/22 16:00 06/02/22 16:00 06/02/22 16:00 06/02/22 16:00 06/02/22 16:00 06/02/22 08:04 FiO2 35 06/02/22 16:00 Oxygen Flow Rate (L/min) 4 Oxygen Delivery Method Bi-pap Weight: 130.7 kg Body Mass Index (BMI) 51.3 Intake & Output: Intake and Output for Last 24 Hours 05/31/22 06/01/22 06/02/22 23:59 23:59 23:59 Intake Total 1898.75 / 1898.75 860 / 920 550 / 550 Output Total 1580 / 1580 4075 / 4575 1900 / 1900 Balance 318.75 / 318.75 -3215 / -3655 -1350 / -1350 Lab / Micro Data Result Diagrams: 06/03/22 06:36 06/03/22 06:36 Labs: Laboratory Results - last 24 hr 05/30/22 04:37: Diff Path Review Reviewed 05/31/22 06:50: Diff Path Review Reviewed 06/01/22 03:55: Diff Path Review Reviewed 06/01/22 22:22: POC Glucose 263 H 06/02/22 05:45: WBC 27.9 H, RBC 3.39 L, Hgb 8.5 L, Hct 29.0 L, MCV 85.5, MCH 25.1 L, MCHC 29.3 L, RDW Std Deviation 55.9 H, RDW Coeff of Aniceto 18.4 H, Plt Count 269, MPV 10.0, Immature Gran % (Auto) 3.400 H, Neut % (Auto) 92.9 H, Lymph % (Auto) 1.3 L, [place] % (Auto) 2.2, Eos % (Auto) 0.0, Baso % (Auto) 0.2, Absolute Neuts (auto) 25.9 H, Absolute Lymphs (auto) 0.35 L, Nucleated RBC % 0.1, Hypochromasia 1+, Anisocytosis 2+ 06/02/22 05:45: Sodium 143, Potassium 3.7, Chloride 103, Carbon Dioxide 36.0 H, Anion Gap 4 L, BUN 50 H, Creatinine 1.51 H, Estim Creat Clear Calc 26.63, Est GFR (MDRD) Af Amer 43 L, Est GFR (MDRD) Non-Af 36 L, BUN/Creatinine Ratio 33.1 H, Glucose 201 H, Calcium 9.9 06/02/22 07:12: POC Glucose 189 H 06/02/22 11:35: POC Glucose 213 H 06/02/22 15:15: POC Glucose 277 H Micro: Microbiology 05/26/22 18:20 Sputum, Expectorated/Coughed Gram Stain - Final 05/26/22 18:20 Sputum, Expectorated/Coughed Respiratory Culture - Final Pseudomonas aeroginosa 05/23/22 10:10 Blood Culture (Wb) - Port Blood Culture - Final No growth in 5 days. 05/28/22 15:47 Stool Stool Lactoferrin - Final 05/28/22 15:47 Stool Enteric Bacteriology - Final 05/28/22 15:47 Stool C. difficile DNA Amplification - Final 05/28/22 15:47 Stool Stool Occult Blood (RODRIGO) - Final Occult Blood Positive 05/23/22 12:13 Blood Culture (Wb) - Port Blood Culture - Final No growth in 5 days. 05/23/22 12:25 Urine, Clean Catch Urine Culture - Final Mixed Gram Positive Organisms 05/23/22 15:30 Mucosa - Nasopharyngeal Respiratory Panel (PCR) - Final 05/23/22 12:25 Urine Catheter - Catheter Legionella Antigen - Final 05/23/22 12:25 Urine Catheter - Catheter Streptococcus pneumoniae Antigen (M - Final 05/23/22 10:48 Nasal Secretion SARS-CoV-2 & FLU Antigen (Rapid) - Final Physical Exam Const alert, oriented x3 and no apparent distress Constitutional Narrative: She is morbidly obese General Appearance: cooperative, well kempt and well developed Orientation / Consciousness: awake, oriented to person, oriented to place and oriented to time HEENT normocephalic, head/scalp atraumatic and moist oral mucous membranes Eyes PERRL, EOMs intact bilaterally and conjunctivae normal Neck supple, no JVD, thyroid normal and no carotid bruits General: trachea midline Resp normal respiratory effort, no retractions and no use of accessory muscles Resp Narrative: Breath sounds are diminished bilaterally Auscultation: Negative for rales, rhonchi or wheezes Cardio regular rate, regular rhythm, S1 normal heart sound, S2 normal heart sound, no murmurs, no rub and no gallops GI normal to inspection, nondistended, normoactive bowel sounds, soft to palpation, non-tender and non-distended GI Narrative: Patient is morbidly obese Extremity no clubbing, cyanosis or edema Skin no rashes or lesions noted General Skin Exam: no breakdown Neuro oriented x3, CN's II-XII intact bilaterally, moves all extremities, no focal motor deficits and no sensory deficits noted Sensorium / Orientation: awake and alert Speech: speech normal Psych affect normal Assessment & Plan Assessment/Plan (1) Pneumonia: PLAN: Plan 1. Right-sided Pseudomonas pneumonia secondary to postobstructive causes from lung cancer-patient is being seen by infectious diseases, she will remain on IV antibiotics at this time, patient's tobramycin aerosol treatments will be stopped after I talked with infectious diseases about stopping them. #2 chronic combined respiratory failure-patient is currently on nasal cannula O2 #3 stage III non-small cell lung cancer-patient follows with oncology as an outpatient #4 paroxysmal A. fib-continue present medications #5 type 2 diabetes-patient's blood sugars are being monitored, she is receiving sliding scale insulin #6 morbid obesity-complicates care, management, course, and recovery #7 obstructive sleep apnea-patient uses BiPAP at night #8 acute debility secondary to multiple medical problems-patient's daughter who is her POA does not want the patient at this time to go to an extended care facility, continue PT and OT Patient is currently PCU status Charges/Coding Visit Charges Inpatient E&M: 63397 Subs Hosp L2
--- NOTE | 2022-06-02 20:19 | CPS ---
Pt refused vest therapy. RT talked to pt about trying it during her breathing tx that was given at 1906 and pt declined.
[2022-06-02] MEDS: Pramipexole Di-HCl 0.5 MG Tablet PO (21:00)
[2022-06-02] MEDS: Atorvastatin Calcium 40 MG Tablet PO (21:22)
[2022-06-02 21:35] LABS: Bedside Glucose 287 mg/dL (74-106)
[2022-06-03] VITALS (18 sets, daily range): BP systolic 108–160; BP diastolic 39–56; PULSE 54–64; RESP 12–26; TEMP 36.1–37; O2SAT 93–98
[2022-06-03 06:40] LABS: Absolute Lymphocyte Count 0.35 X10^3/uL (0.83-4.51); Absolute Neutrophil Count 21.7 X10^3/uL (2.0-7.7); Basophil# 0.03 X10^3/uL; Basophil% 0.1 % (0-1); Eosinophil# 0.01 X10^3/uL; Hematocrit 28.3 % (37-47); Hemoglobin 8.6 g/dL (12.0-15.0); Lymphocyte # 0.35 X10^3/ul (0.83-4.51); Lymphocyte % 1.5 % (19-41); Mean Corp Hgb Conc 30.4 g/dL (32-36); Mean Corpuscular Hgb 25.9 pg (27.0-32.0); Mean Corpuscular Volume 85.2 fL (81-99); NRBC Flagged by Analyzer 0 % (0-5); Neutrophil # 21.65 X10^3/uL (2.7-7.7); POSITIVE DIFFERENTIAL YES; Platelet Count 265 K/mm3 (150-450); RBC Distribution Width CV 18.5 % (11.6-14.6); RBC Distribution Width SD 55.4 fl (35.1-43.9); Red Blood Count 3.32 M/mm3 (4.2-5.4); White Blood Count 23.3 K/mm3 (4.4-11.0)
[2022-06-03 06:47] LABS: Differential Indicated SCAN CRITERIA MET
[2022-06-03] MEDS: Ipratropium/Albuterol Sulfate 3 ML AMPUL.NEB INHALATION ×4 (06:47→19:00)
[2022-06-03 06:53] LABS: Anion Gap 4 (5-15); BUN 47 mg/dL (7-18); BUN/Creat Ratio 34.1 RATIO (10-20); Calcium,Total 9.7 mg/dL (8.5-10.1); Chloride 101 mmol/L (98-107); Creatinine, Serum 1.38 mg/dL (0.55-1.02); EST Glomerular Filtration Rate 40 mL/min (>60); Est Glom Filt Rate - Afr Amer 48 mL/min (>60); Estimated Creatinine Clearance 29.14 ml/min; Glucose 215 mg/dL (74-106); Potassium 3.8 mmol/L (3.5-5.1); Sodium Level 142 mmol/L (136-145)
[2022-06-03 07:06] LABS: Anisocytosis 2+; Hypochromasia 1+
[2022-06-03] MEDS: Insulin Lispro 100 UNIT/ML INSULN.PEN SC ×4 (08:37→22:08)
[2022-06-03] MEDS: Amiodarone 200 MG Tablet 100 MG PO ×2 (08:38→16:42)
[2022-06-03] MEDS: predniSONE 20 MG Tablet 40 MG PO (08:38)
[2022-06-03] MEDS: Nadolol 40 MG Tablet PO (08:38)
[2022-06-03] MEDS: APIXABAN 5 MG TABLET PO ×2 (08:38→22:05)
[2022-06-03] MEDS: Paroxetine 20 MG Tablet 40 MG PO (08:39)
[2022-06-03] MEDS: Nystatin Powder 15gm Bottle 1 APPLIC TOPICAL ×2 (08:39→22:05)
[2022-06-03] MEDS: guaiFENesin 1,200 MG Tablet 1200 MG PO ×2 (08:39→22:05)
[2022-06-03 09:05] LABS: Bedside Glucose 206 mg/dL (74-106)
--- NOTE | 2022-06-03 12:17 | CHAPLAIN ---
Type of Pastoral Visit _x__ Initial Visit ___ Follow-up Visit ___ On-call Visit ___ General Patient Visit ___ Spiritual Assessment ___ Family Conference ___ Bereavement ___ Rapid Response ___ Code Blue ___ Other (describe below) Pastoral Care Referral From ___ Patient ___ Family _x__ Nurse ___ Physician ___ Community Planning Technician ___ Veterinary Attendant ___ Other (describe below) Sacrament/Intervention ___ Active listening ___ Anointing ___ Latter-Day ___ Bereavement ___ Communion ___ [place] exploration ___ ___ Life review ___ Prayer ___ Reconciliation ___ Sacrament of Sick _x__ Supportive presence ___ Wedding ___ Other (describe below) 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
[2022-06-03 12:40] LABS: Bedside Glucose 334 mg/dL (74-106)
--- NOTE | 2022-06-03 13:47 | PCM.PN.ID ---
Physical Exam Narrative Feeling ok, some cough and dyspnea. No fever, no n/v/d. Const alert and no apparent distress Resp clear to auscultation bilaterally Auscultation: diminished lung sounds Cardio regular rate and regular rhythm GI soft to palpation, non-tender and non-distended Skin no rashes or lesions noted ID ID: Route of nutrition/ use of supplements: [] Nutritional Intake: [] IV Site: [] Hansen Catheter: [] Assessment & Plan Assessment/Plan (1) Pneumonia: PLAN: Multifocal pneumonia, recent chemo and radiation for NSCLC. Not producing sputum. Resp viral panel neg, UAgs neg. Fever improved. MRSA pcr neg. On admit started on empiric zosyn. Vanc stopped 05/27. Tobramycin neb added by primary team. Sputum with pseudomonas, borderline RODRIGO for zosyn. Given RODRIGO and still increasing wbc and Cr, 05/29 changed zosyn to meropenem. Remains in icu. USAMA and wbc slowly improving. Will adjust katie dose. Will follow (2) Cancer:
[2022-06-03 17:05] LABS: Bedside Glucose 449 mg/dL (74-106)
--- NOTE | 2022-06-03 17:35 | PN.HOSP_ITS ---
Subjective Subjective Patient was seen and examined today, she remains on nasal cannula oxygen at this time, her white blood cell count is improved today. Patient remains on meropenem. Objective Data Objective Data Vital Signs: Vital Signs Temp Pulse Resp BP Pulse Ox O2 Del Method O2 Flow Rate 97 F L 60 20 H 108/39 L 96 Nasal Cannula 4 06/03/22 14:00 06/03/22 15:48 06/03/22 15:48 06/03/22 14:00 06/03/22 15:48 06/03/22 16:00 06/03/22 16:00 FiO2 28 06/03/22 15:48 Oxygen Flow Rate (L/min) 4 Oxygen Delivery Method Nasal Cannula Weight: 128.8 kg Body Mass Index (BMI) 51.3 Intake & Output: Intake and Output for Last 24 Hours 06/01/22 06/02/22 06/03/22 23:59 23:59 23:59 Intake Total 860 / 920 550 / 670 716.6 / 716.6 Output Total 4075 / 4575 1900 / 2200 850 / 850 Balance -3215 / -3655 -1350 / -1530 -133.4 / -133.4 Lab / Micro Data Result Diagrams: 06/03/22 06:36 06/03/22 06:36 Labs: Laboratory Results - last 24 hr 06/02/22 21:12: POC Glucose 287 H 06/03/22 06:36: WBC 23.3 H, RBC 3.32 L, Hgb 8.6 L, Hct 28.3 L, MCV 85.2, MCH 25. 9 L, MCHC 30.4 L, RDW Std Deviation 55.4 H, RDW Coeff of Aniceto 18.5 H, Plt Count 265, MPV 9.0, Immature Gran % (Auto) 2.400 H, Neut % (Auto) 93.0 H, Lymph % (Auto) 1.5 L, [place] % (Auto) 3.0, Eos % (Auto) 0.0, Baso % (Auto) 0.1, Absolute Neuts (auto) 21.7 H, Absolute Lymphs (auto) 0.35 L, Nucleated RBC % 0, Hypochromasia 1+, Anisocytosis 2+ 06/03/22 06:36: Sodium 142, Potassium 3.8, Chloride 101, Carbon Dioxide 37.0 H, Anion Gap 4 L, BUN 47 H, Creatinine 1.38 H, Estim Creat Clear Calc 29.14, Est GFR (MDRD) Af Amer 48 L, Est GFR (MDRD) Non-Af 40 L, BUN/Creatinine Ratio 34.1 H , Glucose 215 H, Calcium 9.7 06/03/22 08:36: POC Glucose 206 H 06/03/22 12:16: POC Glucose 334 H 06/03/22 16:40: POC Glucose 449 H Micro: Microbiology 05/26/22 18:20 Sputum, Expectorated/Coughed Gram Stain - Final 05/26/22 18:20 Sputum, Expectorated/Coughed Respiratory Culture - Final Pseudomonas aeroginosa 05/23/22 10:10 Blood Culture (Wb) - Port Blood Culture - Final No growth in 5 days. 05/28/22 15:47 Stool Stool Lactoferrin - Final 05/28/22 15:47 Stool Enteric Bacteriology - Final 05/28/22 15:47 Stool C. difficile DNA Amplification - Final 05/28/22 15:47 Stool Stool Occult Blood (RODRIGO) - Final Occult Blood Positive 05/23/22 12:13 Blood Culture (Wb) - Port Blood Culture - Final No growth in 5 days. 05/23/22 12:25 Urine, Clean Catch Urine Culture - Final Mixed Gram Positive Organisms 05/23/22 15:30 Mucosa - Nasopharyngeal Respiratory Panel (PCR) - Final 05/23/22 12:25 Urine Catheter - Catheter Legionella Antigen - Final 05/23/22 12:25 Urine Catheter - Catheter Streptococcus pneumoniae Antigen (M - Final 05/23/22 10:48 Nasal Secretion SARS-CoV-2 & FLU Antigen (Rapid) - Final Physical Exam Narrative alert, oriented x3 and no apparent distress Constitutional Narrative: She is morbidly obese General Appearance: cooperative, well kempt and well developed Orientation / Consciousness: awake, oriented to person, oriented to place and oriented to time HEENT normocephalic, head/scalp atraumatic and moist oral mucous membranes Eyes PERRL, EOMs intact bilaterally and conjunctivae normal Neck supple, no JVD, thyroid normal and no carotid bruits General: trachea midline Resp normal respiratory effort, no retractions and no use of accessory muscles Resp Narrative: Breath sounds are diminished bilaterally Auscultation: Negative for rales, rhonchi or wheezes Cardio regular rate, regular rhythm, S1 normal heart sound, S2 normal heart sound, no murmurs, no rub and no gallops GI normal to inspection, nondistended, normoactive bowel sounds, soft to palpation, non-tender and non-distended GI Narrative: Patient is morbidly obese Extremity no clubbing, cyanosis or edema Skin no rashes or lesions noted General Skin Exam: no breakdown Neuro oriented x3, CN's II-XII intact bilaterally, moves all extremities, no focal motor deficits and no sensory deficits noted Sensorium / Orientation: awake and alert Speech: speech normal Psych affect normal Assessment & Plan Assessment/Plan (1) Morbid obesity: (2) Pneumonia: PLAN: Plan 1. Right-sided Pseudomonas pneumonia secondary to postobstructive causes from lung cancer-patient is being seen by infectious diseases, she will remain on IV antibiotics at this time #2 chronic combined respiratory failure-patient is currently on nasal cannula O2 at 4 L/min #3 stage III non-small cell lung cancer-patient follows with oncology as an ou tpatient #4 paroxysmal A. fib-continue present medications #5 type 2 diabetes-patient's blood sugars are being monitored, she is receiving sliding scale insulin #6 morbid obesity-complicates care, management, course, and recovery #7 obstructive sleep apnea-patient uses BiPAP at night #8 acute debility secondary to multiple medical problems-patient's daughter who is her POA does not want the patient at this time to go to an extended care facility, continue PT and OT Patient is currently PCU status Charges/Coding Visit Charges Inpatient E&M: 26105 Subs Hosp L2
[2022-06-03] MEDS: Pramipexole Di-HCl 0.5 MG Tablet PO (22:05)
[2022-06-03] MEDS: Atorvastatin Calcium 40 MG Tablet PO (22:05)
[2022-06-03 22:30] LABS: Bedside Glucose 320 mg/dL (74-106)
--- NOTE | 2022-06-03 23:56 | CPS ---
pt refused vest therapy with tx given at 1900.
[2022-06-04] VITALS (20 sets, daily range): BP systolic 131–145; BP diastolic 48–90; PULSE 52–67; RESP 14–24; TEMP 36.1–36.9; O2SAT 94–100
[2022-06-04 02:52] LABS: Absolute Lymphocyte Count 0.35 X10^3/uL (0.83-4.51); Absolute Neutrophil Count 17.5 X10^3/uL (2.0-7.7); Basophil# 0.02 X10^3/uL; Basophil% 0.1 % (0-1); Eosinophil# 0.01 X10^3/uL; Eosinophils% 0.1 % (0-5); Hematocrit 28.9 % (37-47); Hemoglobin 8.6 g/dL (12.0-15.0); Lymphocyte # 0.35 X10^3/ul (0.83-4.51); Lymphocyte % 1.8 % (19-41); Mean Corp Hgb Conc 29.8 g/dL (32-36); Mean Corpuscular Hgb 25.6 pg (27.0-32.0); Mean Platelet Vol. 9.3 fl (6.2-12.0); Monocyte# 0.83 X10^3/uL; Monocyte% 4.4 % (0-10); NRBC Flagged by Analyzer 0 % (0-5); Neutrophil # 17.47 X10^3/uL (2.7-7.7); POSITIVE DIFFERENTIAL YES; Platelet Count 246 K/mm3 (150-450); RBC Distribution Width CV 18.6 % (11.6-14.6); RBC Distribution Width SD 56.8 fl (35.1-43.9); Red Blood Count 3.36 M/mm3 (4.2-5.4)
[2022-06-04 02:54] LABS: Differential Indicated SCAN CRITERIA MET
[2022-06-04 03:05] LABS: Anion Gap 1 (5-15); BUN 49 mg/dL (7-18); BUN/Creat Ratio 32.5 RATIO (10-20); Calcium,Total 9.6 mg/dL (8.5-10.1); Chloride 103 mmol/L (98-107); Creatinine, Serum 1.51 mg/dL (0.55-1.02); EST Glomerular Filtration Rate 36 mL/min (>60); Est Glom Filt Rate - Afr Amer 43 mL/min (>60); Estimated Creatinine Clearance 26.63 ml/min; Glucose 245 mg/dL (74-106); Potassium 4.5 mmol/L (3.5-5.1); Sodium Level 143 mmol/L (136-145)
[2022-06-04 04:35] LABS: Anisocytosis 2+
[2022-06-04] MEDS: Ipratropium/Albuterol Sulfate 3 ML AMPUL.NEB INHALATION ×4 (06:37→19:10)
--- NOTE | 2022-06-04 07:54 | PN.HOSP_ITS ---
Subjective Subjective Patient was seen and examined today, she does not appear to be in any distress, she remains on 4 L nasal cannula-patient states that this is her setting at home. Patient's white blood cell count is improved today at 19,000, hemoglobin was 8.6. Objective Data Objective Data Vital Signs: Vital Signs Temp Pulse Resp BP Pulse Ox O2 Del Method O2 Flow Rate 97.9 F 57 L 18 145/57 H 100 Nasal Cannula 4 06/04/22 04:00 06/04/22 06:38 06/04/22 06:38 06/04/22 04:00 06/04/22 06:38 06/04/22 06:38 06/04/22 06:38 FiO2 28 06/04/22 04:00 Oxygen Flow Rate (L/min) 4 Oxygen Delivery Method Nasal Cannula Weight: 130.7 kg Body Mass Index (BMI) 51.3 Intake & Output: Intake and Output for Last 24 Hours 06/02/22 06/03/22 06/04/22 23:59 23:59 23:59 Intake Total 550 / 670 916.6 / 916.6 120 / 120 Output Total 1900 / 2200 1350 / 1950 600 / 600 Balance -1350 / -1530 -433.4 / -1033.4 -480 / -480 Lab / Micro Data Result Diagrams: 06/04/22 02:45 06/04/22 02:45 Labs: Laboratory Results - last 24 hr 06/03/22 08:36: POC Glucose 206 H 06/03/22 12:16: POC Glucose 334 H 06/03/22 16:40: POC Glucose 449 H 06/03/22 22:08: POC Glucose 320 H 06/04/22 02:45: WBC 19.0 H, RBC 3.36 L, Hgb 8.6 L, Hct 28.9 L, MCV 86.0, MCH 25.6 L, MCHC 29.8 L, RDW Std Deviation 56.8 H, RDW Coeff of Aniceto 18.6 H, Plt Count 246, MPV 9.3, Immature Gran % (Auto) 1.600 H, Neut % (Auto) 92.0 H, Lymph % (Auto) 1.8 L, [place] % (Auto) 4.4, Eos % (Auto) 0.1, Baso % (Auto) 0.1, Absolute Neuts (auto) 17.5 H, Absolute Lymphs (auto) 0.35 L, Nucleated RBC % 0, Anisocytosis 2+ 06/04/22 02:45: Sodium 143, Potassium 4.5, Chloride 103, Carbon Dioxide 39.0 H, Anion Gap 1 L, BUN 49 H, Creatinine 1.51 H, Estim Creat Clear Calc 26.63, Est GFR (MDRD) Af Amer 43 L, Est GFR (MDRD) Non-Af 36 L, BUN/Creatinine Ratio 32.5 H , Glucose 245 H, Calcium 9.6 Micro: Microbiology 05/26/22 18:20 Sputum, Expectorated/Coughed Gram Stain - Final 05/26/22 18:20 Sputum, Expectorated/Coughed Respiratory Culture - Final Pseudomonas aeroginosa 05/23/22 10:10 Blood Culture (Wb) - Port Blood Culture - Final No growth in 5 days. 05/28/22 15:47 Stool Stool Lactoferrin - Final 05/28/22 15:47 Stool Enteric Bacteriology - Final 05/28/22 15:47 Stool C. difficile DNA Amplification - Final 05/28/22 15:47 Stool Stool Occult Blood (RODRIGO) - Final Occult Blood Positive 05/23/22 12:13 Blood Culture (Wb) - Port Blood Culture - Final No growth in 5 days. 05/23/22 12:25 Urine, Clean Catch Urine Culture - Final Mixed Gram Positive Organisms 05/23/22 15:30 Mucosa - Nasopharyngeal Respiratory Panel (PCR) - Final 05/23/22 12:25 Urine Catheter - Catheter Legionella Antigen - Final 05/23/22 12:25 Urine Catheter - Catheter Streptococcus pneumoniae Antigen (M - Final 05/23/22 10:48 Nasal Secretion SARS-CoV-2 & FLU Antigen (Rapid) - Final Physical Exam Narrative alert, oriented x3 and no apparent distress Constitutional Narrative: She is morbidly obese General Appearance: cooperative, well kempt and well developed Orientation / Consciousness: awake, oriented to person, oriented to place and oriented to time HEENT normocephalic, head/scalp atraumatic and moist oral mucous membranes Eyes PERRL, EOMs intact bilaterally and conjunctivae normal Neck supple, no JVD, thyroid normal and no carotid bruits General: trachea midline Resp normal respiratory effort, no retractions and no use of accessory muscles Resp Narrative: Breath sounds are diminished bilaterally Auscultation: Negative for rales, rhonchi or wheezes Cardio regular rate, regular rhythm, S1 normal heart sound, S2 normal heart sound, no murmurs, no rub and no gallops GI normal to inspection, nondistended, normoactive bowel sounds, soft to palpation, non-tender and non-distended GI Narrative: Patient is morbidly obese Extremity no clubbing, cyanosis or edema Skin no rashes or lesions noted General Skin Exam: no breakdown Neuro oriented x3, CN's II-XII intact bilaterally, moves all extremities, no focal motor deficits and no sensory deficits noted Sensorium / Orientation: awake and alert Speech: speech normal Psych affect normal Assessment & Plan Assessment/Plan (1) Morbid obesity: (2) Pneumonia: PLAN: Plan 1. Right-sided Pseudomonas pneumonia secondary to postobstructive causes from lung cancer-patient is being seen by infectious diseases, she will remain on IV antibiotics at this time, white blood cell count today was improved #2 chronic combined respiratory failure-patient is currently on nasal cannula O2 at 4 L/min #3 stage III non-small cell lung cancer-patient follows with oncology as an outpatient #4 paroxysmal A. fib-continue present medications, patient is in sinus rhythm #5 type 2 diabetes-patient's blood sugars are being monitored, she is receiving sliding scale insulin #6 morbid obesity-complicates care, management, course, and recovery #7 obstructive sleep apnea-patient uses BiPAP at night #8 acute debility secondary to multiple medical problems-patient's daughter who is her POA does not want the patient at this time to go to an extended care facility, continue PT and OT Patient is currently PCU status Charges/Coding Visit Charges Inpatient E&M: 71659 Subs Hosp L2
[2022-06-04] MEDS: Amiodarone 200 MG Tablet 100 MG PO ×2 (08:47→17:18)
[2022-06-04] MEDS: Insulin Lispro 100 UNIT/ML INSULN.PEN SC ×4 (08:47→22:33)
[2022-06-04] MEDS: predniSONE 20 MG Tablet 40 MG PO (08:47)
[2022-06-04] MEDS: APIXABAN 5 MG TABLET PO ×2 (08:48→20:29)
[2022-06-04] MEDS: Nadolol 40 MG Tablet PO (08:48)
[2022-06-04] MEDS: guaiFENesin 1,200 MG Tablet 1200 MG PO ×2 (08:48→20:29)
[2022-06-04] MEDS: Paroxetine 20 MG Tablet 40 MG PO (08:49)
[2022-06-04] MEDS: Nystatin Powder 15gm Bottle 1 APPLIC TOPICAL ×2 (08:52→20:29)
[2022-06-04 09:06] LABS: Bedside Glucose 170 mg/dL (74-106)
--- NOTE | 2022-06-04 10:40 | PCM.PN.REN ---
Subjective Subjective Oxygenation stable on 4 L nasal cannula. Chronic shortness of breath. Complains of diarrhea. Creatinine back to 1.5 today. Complains of thirst. Objective Data Objective Data Vital Signs: Vital Signs Temp Pulse Resp BP Pulse Ox O2 Del Method O2 Flow Rate 97.2 F L 66 17 138/90 H 95 Nasal Cannula 4 06/04/22 08:45 06/04/22 08:45 06/04/22 08:45 06/04/22 08:45 06/04/22 08:45 06/04/22 08:45 06/04/22 08:45 FiO2 28 06/04/22 04:00 Oxygen Flow Rate (L/min) 4 Oxygen Delivery Method Nasal Cannula Weight: 130.7 kg Body Mass Index (BMI) 51.3 Intake & Output: Intake and Output for Last 24 Hours 06/02/22 06/03/22 06/04/22 23:59 23:59 23:59 Intake Total 550 / 670 916.6 / 916.6 720 / 720 Output Total 1900 / 2200 1350 / 1950 1200 / 1200 Balance -1350 / -1530 -433.4 / -1033.4 -480 / -480 Lab / Micro Data Result Diagrams: 06/04/22 02:45 06/04/22 02:45 Labs: Laboratory Results - last 24 hr 06/03/22 12:16: POC Glucose 334 H 06/03/22 16:40: POC Glucose 449 H 06/03/22 22:08: POC Glucose 320 H 06/04/22 02:45: WBC 19.0 H, RBC 3.36 L, Hgb 8.6 L, Hct 28.9 L, MCV 86.0, MCH 25.6 L, MCHC 29.8 L, RDW Std Deviation 56.8 H, RDW Coeff of Aniceto 18.6 H, Plt Count 246, MPV 9.3, Immature Gran % (Auto) 1.600 H, Neut % (Auto) 92.0 H, Lymph % (Auto) 1.8 L, [place] % (Auto) 4.4, Eos % (Auto) 0.1, Baso % (Auto) 0.1, Absolute Neuts (auto) 17.5 H, Absolute Lymphs (auto) 0.35 L, Nucleated RBC % 0, Anisocytosis 2+ 06/04/22 02:45: Sodium 143, Potassium 4.5, Chloride 103, Carbon Dioxide 39.0 H, Anion Gap 1 L, BUN 49 H, Creatinine 1.51 H, Estim Creat Clear Calc 26.63, Est GFR (MDRD) Af Amer 43 L, Est GFR (MDRD) Non-Af 36 L, BUN/Creatinine Ratio 32.5 H, Glucose 245 H, Calcium 9.6 06/04/22 08:44: POC Glucose 170 H Micro: Microbiology 05/26/22 18:20 Sputum, Expectorated/Coughed Gram Stain - Final 05/26/22 18:20 Sputum, Expectorated/Coughed Respiratory Culture - Final Pseudomonas aeroginosa 05/23/22 10:10 Blood Culture (Wb) - Port Blood Culture - Final No growth in 5 days. 05/28/22 15:47 Stool Stool Lactoferrin - Final 05/28/22 15:47 Stool Enteric Bacteriology - Final 05/28/22 15:47 Stool C. difficile DNA Amplification - Final 05/28/22 15:47 Stool Stool Occult Blood (RODRIGO) - Final Occult Blood Positive 05/23/22 12:13 Blood Culture (Wb) - Port Blood Culture - Final No growth in 5 days. 05/23/22 12:25 Urine, Clean Catch Urine Culture - Final Mixed Gram Positive Organisms 05/23/22 15:30 Mucosa - Nasopharyngeal Respiratory Panel (PCR) - Final 05/23/22 12:25 Urine Catheter - Catheter Legionella Antigen - Final 05/23/22 12:25 Urine Catheter - Catheter Streptococcus pneumoniae Antigen (M - Final 05/23/22 10:48 Nasal Secretion SARS-CoV-2 & FLU Antigen (Rapid) - Final Physical Exam Const alert and oriented x3 Nutritional Appearance: morbidly obese Resp Resp Narrative: pursed lip breathing Auscultation: crackles Cardio regular rate Rate: bradycardia GI non-tender and non-distended GI Narrative: Obese Auscultation: normoactive bowel sounds Palpation: soft Extremity Extremity Narrative: Mild lower extremity edema Neuro CN's II-XII intact bilaterally Sensorium / Orientation: awake and alert Psych cooperative Assessment & Plan Assessment/Plan (1) Acute renal failure: PLAN: due to prerenal azotemia. Creatinine today elevated today. May need gentle hydration discussion with persistent diarrhea. (2) Pneumonia: PLAN: antibiotics renal dosed. (3) Sleep apnea: QUALIFIERS: Sleep apnea type: obstructive Qualified Code(s): G47.33 - Obstructive sleep apnea (adult) (pediatric) PLAN: on oxygen and BIPAP at home (4) Breast cancer, right breast: PLAN: s/p mastectomy (5) Metastatic cancer to lung: PLAN: bone mets s/p radiation, chemotherapy (6) Hypertension: PLAN: stable (7) Diabetes mellitus, type II: QUALIFIERS: Diabetes mellitus complication status: without complication Diabetes mellitus ad terminal makeup operator insulin use: with ad terminal makeup operator use Qualified Code(s): E11.9 - Type 2 diabetes mellitus without complications; 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
[2022-06-04] MEDS: Loperamide 2 MG Capsule PO (11:30)
[2022-06-04 12:20] LABS: Bedside Glucose 253 mg/dL (74-106)
--- NOTE | 2022-06-04 13:15 | PCM.PN.ID ---
Physical Exam Narrative Sleeping, no fever Const no apparent distress Resp Auscultation: diminished lung sounds Cardio regular rate and regular rhythm GI soft to palpation, non-tender and non-distended Extremity General Extremity: edema Skin no rashes or lesions noted ID ID: Route of nutrition/ use of supplements: [] Nutritional Intake: [] IV Site: [] Hansen Catheter: [] Assessment & Plan Assessment/Plan (1) Pneumonia: PLAN: Multifocal pneumonia, recent chemo and radiation for NSCLC. Not producing sputum. Resp viral panel neg, UAgs neg. Fever improved. MRSA pcr neg. On admit started on empiric zosyn. Vanc stopped 05/27. Tobramycin neb added by primary team. Sputum with pseudomonas, borderline RODRIGO for zosyn. Given RODRIGO and still increasing wbc and Cr, 05/29 changed zosyn to meropenem. Remains in icu. USAMA and wbc slowly improving. Plan on 10 days total meropenem, stop date 06/07/22. Will follow (2) Cancer:
[2022-06-04] MEDS: Menthol/Lanolin/Calamine/Znox 113 GM Tube 1 APPLIC TOPICAL ×2 (15:01→20:28)
[2022-06-04 17:06] LABS: Bedside Glucose 353 mg/dL (74-106)
[2022-06-04] MEDS: Atorvastatin Calcium 40 MG Tablet PO (20:29)
[2022-06-04] MEDS: Pramipexole Di-HCl 0.5 MG Tablet PO (20:29)
[2022-06-04 22:55] LABS: Bedside Glucose 373 mg/dL (74-106)
[2022-06-05] VITALS (20 sets, daily range): BP systolic 120–157; BP diastolic 42–74; PULSE 52–66; RESP 14–26; TEMP 36.3–37.1; O2SAT 93–100
[2022-06-05] MEDS: Menthol/Lanolin/Calamine/Znox 113 GM Tube 1 APPLIC TOPICAL ×3 (05:57→20:37)
[2022-06-05] MEDS: Ipratropium/Albuterol Sulfate 3 ML AMPUL.NEB INHALATION ×4 (07:05→19:03)
[2022-06-05] MEDS: Insulin Lispro 100 UNIT/ML INSULN.PEN SC ×3 (09:09→20:42)
[2022-06-05] MEDS: Nadolol 40 MG Tablet PO (09:10)
[2022-06-05] MEDS: Amiodarone 200 MG Tablet 100 MG PO ×2 (09:10→16:00)
[2022-06-05] MEDS: predniSONE 20 MG Tablet 40 MG PO (09:10)
[2022-06-05] MEDS: guaiFENesin 1,200 MG Tablet 1200 MG PO ×2 (09:11→20:37)
[2022-06-05] MEDS: APIXABAN 5 MG TABLET PO ×2 (09:11→20:37)
[2022-06-05] MEDS: Paroxetine 20 MG Tablet 40 MG PO (09:11)
[2022-06-05] MEDS: Nystatin Powder 15gm Bottle 1 APPLIC TOPICAL ×2 (09:11→20:37)
[2022-06-05 09:25] LABS: Bedside Glucose 188 mg/dL (74-106)
[2022-06-05 13:22] LABS: Absolute Lymphocyte Count 0.22 X10^3/uL (0.83-4.51); Absolute Neutrophil Count 24.4 X10^3/uL (2.0-7.7); Basophil# 0.04 X10^3/uL; Basophil% 0.2 % (0-1); Eosinophil# 0.01 X10^3/uL; Hematocrit 29.3 % (37-47); Hemoglobin 8.6 g/dL (12.0-15.0); Lymphocyte # 0.22 X10^3/ul (0.83-4.51); Lymphocyte % 0.9 % (19-41); Mean Corp Hgb Conc 29.4 g/dL (32-36); Mean Corpuscular Hgb 25.3 pg (27.0-32.0); Mean Corpuscular Volume 86.2 fL (81-99); Mean Platelet Vol. 10.3 fl (6.2-12.0); Monocyte% 1.2 % (0-10); NRBC Flagged by Analyzer 0 % (0-5); Neutrophil % 96.3 % (47-70); POSITIVE DIFFERENTIAL YES; Platelet Count 264 K/mm3 (150-450); RBC Distribution Width CV 18.6 % (11.6-14.6); RBC Distribution Width SD 55.5 fl (35.1-43.9); White Blood Count 25.3 K/mm3 (4.4-11.0)
[2022-06-05 13:27] LABS: Differential Indicated SCAN CRITERIA MET
[2022-06-05 13:42] LABS: Anion Gap 2 (5-15); BUN 48 mg/dL (7-18); BUN/Creat Ratio 32.9 RATIO (10-20); Calcium,Total 9.9 mg/dL (8.5-10.1); Chloride 100 mmol/L (98-107); Creatinine, Serum 1.46 mg/dL (0.55-1.02); Differential Comment SCANNED; EST Glomerular Filtration Rate 37 mL/min (>60); Est Glom Filt Rate - Afr Amer 45 mL/min (>60); Estimated Creatinine Clearance 27.54 ml/min; Glucose 329 mg/dL (74-106); Potassium 4.7 mmol/L (3.5-5.1); Sodium Level 138 mmol/L (136-145)
[2022-06-05 13:44] LABS: Anisocytosis 2+; Hypochromasia 1+; Ovalocyte 1+
--- NOTE | 2022-06-05 16:13 | PN.HOSP_ITS ---
Subjective Subjective Patient was seen and examined today, she is not doing very well with physical therapy at this point, patient's oxygen requirement has been stable-she is still on 4 L via nasal cannula. Patient's white blood cell count today was 25.3, according to charting by infectious diseases, she will be off antibiotics on 06/07/2022. Objective Data Objective Data Vital Signs: Vital Signs Temp Pulse Resp BP Pulse Ox O2 Del Method O2 Flow Rate 97.8 F 63 17 121/70 H 95 Nasal Cannula 4 06/05/22 15:58 06/05/22 15:58 06/05/22 15:58 06/05/22 15:58 06/05/22 15:58 06/05/22 15:58 06/05/22 15:58 FiO2 28 06/05/22 07:05 Oxygen Flow Rate (L/min) 4 Oxygen Delivery Method Nasal Cannula Weight: 130.9 kg Body Mass Index (BMI) 51.3 Intake & Output: Intake and Output for Last 24 Hours 06/03/22 06/04/22 06/05/22 23:59 23:59 23:59 Intake Total 916.6 / 916.6 840 / 840 490 / 490 Output Total 1350 / 1950 1900 / 1900 650 / 650 Balance -433.4 / -1033.4 -1060 / -1060 -160 / -160 Lab / Micro Data Result Diagrams: 06/05/22 13:05 06/05/22 13:05 Labs: Laboratory Results - last 24 hr 06/04/22 16:40: POC Glucose 353 H 06/04/22 22:33: POC Glucose 373 H 06/05/22 09:06: POC Glucose 188 H 06/05/22 13:05: WBC 25.3 H, RBC 3.40 L, Hgb 8.6 L, Hct 29.3 L, MCV 86.2, MCH 25.3 L, MCHC 29.4 L, RDW Std Deviation 55.5 H, RDW Coeff of Aniceto 18.6 H, Plt Count 264, MPV 10.3, Immature Gran % (Auto) 1.400 H, Neut % (Auto) 96.3 H, Lymph % (Auto) 0.9 L, [place] % (Auto) 1.2, Eos % (Auto) 0.0, Baso % (Auto) 0.2, Absolute Neuts (auto) 24.4 H, Absolute Lymphs (auto) 0.22 L, Nucleated RBC % 0, Differential Comment SCANNED, Hypochromasia 1+, Anisocytosis 2+, Ovalocytes 1+ 06/05/22 13:05: Sodium 138, Potassium 4.7, Chloride 100, Carbon Dioxide 36.0 H, Anion Gap 2 L, BUN 48 H, Creatinine 1.46 H, Estim Creat Clear Calc 27.54, Est GFR (MDRD) Af Amer 45 L, Est GFR (MDRD) Non-Af 37 L, BUN/Creatinine Ratio 32.9 H , Glucose 329 H, Calcium 9.9 Micro: Microbiology 05/26/22 18:20 Sputum, Expectorated/Coughed Gram Stain - Final 05/26/22 18:20 Sputum, Expectorated/Coughed Respiratory Culture - Final Pseudomonas aeroginosa 05/23/22 10:10 Blood Culture (Wb) - Port Blood Culture - Final No growth in 5 days. 05/28/22 15:47 Stool Stool Lactoferrin - Final 05/28/22 15:47 Stool Enteric Bacteriology - Final 05/28/22 15:47 Stool C. difficile DNA Amplification - Final 05/28/22 15:47 Stool Stool Occult Blood (RODRIGO) - Final Occult Blood Positive 05/23/22 12:13 Blood Culture (Wb) - Port Blood Culture - Final No growth in 5 days. 05/23/22 12:25 Urine, Clean Catch Urine Culture - Final Mixed Gram Positive Organisms 05/23/22 15:30 Mucosa - Nasopharyngeal Respiratory Panel (PCR) - Final 05/23/22 12:25 Urine Catheter - Catheter Legionella Antigen - Final 05/23/22 12:25 Urine Catheter - Catheter Streptococcus pneumoniae Antigen (M - Final 05/23/22 10:48 Nasal Secretion SARS-CoV-2 & FLU Antigen (Rapid) - Final Physical Exam Narrative alert, oriented x3 and no apparent distress Constitutional Narrative: She is morbidly obese General Appearance: cooperative, well kempt and well developed Orientation / Consciousness: awake, oriented to person, oriented to place HEENT normocephalic, head/scalp atraumatic and moist oral mucous membranes Eyes PERRL, EOMs intact bilaterally and conjunctivae normal Neck supple, no JVD, thyroid normal and no carotid bruits General: trachea midline Resp normal respiratory effort, no retractions and no use of accessory muscles Resp Narrative: Breath sounds are diminished bilaterally Auscultation: Negative for rales, rhonchi or wheezes Cardio regular rate, regular rhythm, S1 normal heart sound, S2 normal heart sound, no murmurs, no rub and no gallops GI normal to inspection, nondistended, normoactive bowel sounds, soft to palpation, non-tender and non-distended GI Narrative: Patient is morbidly obese Extremity no clubbing, cyanosis or edema Skin no rashes or lesions noted General Skin Exam: no breakdown Neuro oriented x3, CN's II-XII intact bilaterally, moves all extremities, no focal motor deficits and no sensory deficits noted Sensorium / Orientation: awake and alert Speech: speech normal Psych affect normal Assessment & Plan Assessment/Plan (1) Metastatic cancer to lung: (2) Morbid obesity: (3) Pneumonia: PLAN: Plan 1. Right-sided Pseudomonas pneumonia secondary to postobstructive causes from lung cancer-patient is being seen by infectious diseases, she will remain on IV antibiotics at this time, white blood cell count today was improved, stop date for the meropenem again is 06/07/2022 #2 chronic combined respiratory failure-patient is currently on nasal cannula O2 at 4 L/min #3 stage III non-small cell lung cancer-patient follows with oncology as an outpatient #4 paroxysmal A. fib-continue present medications, patient is in sinus rhythm #5 type 2 diabetes-patient's blood sugars are being monitored, she is receiving sliding scale insulin #6 morbid obesity-complicates care, management, course, and recovery #7 obstructive sleep apnea-patient uses BiPAP at night #8 acute debility secondary to multiple medical problems-patient's daughter who is her POA does not want the patient at this time to go to an extended care facility, continue PT and OT Patient is currently PCU status Charges/Coding Visit Charges Inpatient E&M: 68864 Subs Hosp L2
[2022-06-05 16:26] LABS: Bedside Glucose 307 mg/dL (74-106)
[2022-06-05] MEDS: Atorvastatin Calcium 40 MG Tablet PO (20:37)
[2022-06-05] MEDS: Pramipexole Di-HCl 0.5 MG Tablet PO (20:37)
[2022-06-05] MEDS: 0.9% Saline Lock 10 ML Syringe IV (20:38)
[2022-06-05] MEDS: Acetaminophen 325 MG Tablet 650 MG PO (20:38)
[2022-06-05 21:11] LABS: Bedside Glucose 448 mg/dL (74-106)
[2022-06-06] VITALS (22 sets, daily range): BP systolic 120–175; BP diastolic 44–103; PULSE 53–79; RESP 14–24; TEMP 36.2–37.2; O2SAT 95–100
[2022-06-06] MEDS: Menthol/Lanolin/Calamine/Znox 113 GM Tube 1 APPLIC TOPICAL ×2 (05:02→21:02)
[2022-06-06] MEDS: hydrALAZINE 20 MG/ML Vial 5 MG IV ×2 (06:07→21:22)
[2022-06-06] MEDS: 0.9% Saline Lock 10 ML Syringe IV ×2 (06:10→21:17)
--- NOTE | 2022-06-06 06:15 | RAD_ITS ---
INDICATION: Pneumonia EXAMINATION/TECHNIQUE: X-RAY - XR Chest 1 View COMPARISON: 05/31/2022. FINDINGS: LINES/DEVICES: Left-sided Port-A-Cath with the tip in the superior vena cava is stable position. LUNGS: Right upper lobe consolidation with loss of volume of the right upper lobe is again seen unchanged prior exam. Slightly improved right lower lung and left upper lobe infiltrates. Mild left basilar infiltrate unchanged. No evidence of pleural effusions. MEDIASTINUM AND CARDIOVASCULAR STRUCTURES: Cardiac silhouette not enlarged. Central airways and mediastinal contour are unremarkable. BONES AND SOFT TISSUES: Unremarkable. RAD/Chest 1 View (Portable) IMPRESSION: 1. Persistent right upper lobe consolidation with loss of volume unchanged. 2. Slightly improved right basilar and right upper lobe infiltrates. 3. Otherwise no significant change. Electronically Signed: Enrique Mahmood MD at 9:05 EST ,
[2022-06-06] MEDS: Insulin Lispro 100 UNIT/ML INSULN.PEN SC ×4 (06:38→21:02)
[2022-06-06 07:01] LABS: Bedside Glucose 195 mg/dL (74-106)
[2022-06-06] MEDS: Ipratropium/Albuterol Sulfate 3 ML AMPUL.NEB INHALATION ×4 (07:26→21:48)
--- NOTE | 2022-06-06 07:40 | NURSING ---
Emergency documentation per charge nurse.
[2022-06-06] MEDS: Acetaminophen 325 MG Tablet 650 MG PO (08:02)
[2022-06-06] MEDS: predniSONE 20 MG Tablet 40 MG PO (08:03)
[2022-06-06] MEDS: guaiFENesin 1,200 MG Tablet 1200 MG PO ×2 (08:03→21:02)
[2022-06-06] MEDS: Nadolol 40 MG Tablet PO (08:03)
[2022-06-06] MEDS: Amiodarone 200 MG Tablet 100 MG PO ×2 (08:03→18:00)
[2022-06-06] MEDS: Paroxetine 20 MG Tablet 40 MG PO (08:03)
[2022-06-06] MEDS: APIXABAN 5 MG TABLET PO ×2 (08:04→21:02)
[2022-06-06] MEDS: Nystatin Powder 15gm Bottle 1 APPLIC TOPICAL ×2 (08:04→21:22)
[2022-06-06 08:09] LABS: Anion Gap 5 (5-15); BUN 47 mg/dL (7-18); BUN/Creat Ratio 34.8 RATIO (10-20); Calcium,Total 9.4 mg/dL (8.5-10.1); Chloride 100 mmol/L (98-107); Creatinine, Serum 1.35 mg/dL (0.55-1.02); EST Glomerular Filtration Rate 41 mL/min (>60); Est Glom Filt Rate - Afr Amer 49 mL/min (>60); Estimated Creatinine Clearance 29.78 ml/min; Glucose 214 mg/dL (74-106); Potassium 4.3 mmol/L (3.5-5.1); Sodium Level 138 mmol/L (136-145)
[2022-06-06 13:26] LABS: Bedside Glucose 331 mg/dL (74-106)
--- NOTE | 2022-06-06 16:14 | PN.HOSP_ITS ---
Subjective Subjective Patient was seen and examined today, she does not appear to be in any respiratory distress, she appears appropriate. I encouraged her to get up and try to walk today with physical therapy-she said she would try. Chest x-ray this morning showed a persistent right upper lobe consolidation with loss of volume which is unchanged from previous x-rays, there is a slight improvement in the right basilar and right upper lobe infiltrates. Objective Data Objective Data Vital Signs: Vital Signs Temp Pulse Resp BP Pulse Ox O2 Del Method O2 Flow Rate 97.1 F L 59 L 20 H 120/44 L 98 Nasal Cannula 4 06/06/22 12:40 06/06/22 15:16 06/06/22 15:16 06/06/22 12:40 06/06/22 15:16 06/06/22 12:40 06/06/22 12:40 FiO2 28 06/06/22 15:16 Oxygen Flow Rate (L/min) 4 Oxygen Delivery Method Nasal Cannula Weight: 131.5 kg Body Mass Index (BMI) 51.3 Intake & Output: Intake and Output for Last 24 Hours 06/04/22 06/05/22 06/06/22 23:59 23:59 23:59 Intake Total 840 / 840 610 / 610 480 / 480 Output Total 1900 / 1900 950 / 950 460 / 460 Balance -1060 / -1060 -340 / -340 Lab / Micro Data Result Diagrams: 06/05/22 13:05 06/06/22 05:39 Labs: Laboratory Results - last 24 hr 06/05/22 15:54: POC Glucose 307 H 06/05/22 20:34: POC Glucose 448 H 06/06/22 05:39: Sodium 138, Potassium 4.3, Chloride 100, Carbon Dioxide 33.0 H, Anion Gap 5, BUN 47 H, Creatinine 1.35 H, Estim Creat Clear Calc 29.78, Est GFR (MDRD) Af Amer 49 L, Est GFR (MDRD) Non-Af 41 L, BUN/Creatinine Ratio 34.8 H, Glucose 214 H, Calcium 9.4 06/06/22 06:36: POC Glucose 195 H 06/06/22 11:21: POC Glucose 331 H Micro: Microbiology 05/26/22 18:20 Sputum, Expectorated/Coughed Gram Stain - Final 05/26/22 18:20 Sputum, Expectorated/Coughed Respiratory Culture - Final Pseudomonas aeroginosa 05/23/22 10:10 Blood Culture (Wb) - Port Blood Culture - Final No growth in 5 days. 05/28/22 15:47 Stool Stool Lactoferrin - Final 05/28/22 15:47 Stool Enteric Bacteriology - Final 05/28/22 15:47 Stool C. difficile DNA Amplification - Final 05/28/22 15:47 Stool Stool Occult Blood (RODRIGO) - Final Occult Blood Positive 05/23/22 12:13 Blood Culture (Wb) - Port Blood Culture - Final No growth in 5 days. 05/23/22 12:25 Urine, Clean Catch Urine Culture - Final Mixed Gram Positive Organisms 05/23/22 15:30 Mucosa - Nasopharyngeal Respiratory Panel (PCR) - Final 05/23/22 12:25 Urine Catheter - Catheter Legionella Antigen - Final 05/23/22 12:25 Urine Catheter - Catheter Streptococcus pneumoniae Antigen (M - Final 05/23/22 10:48 Nasal Secretion SARS-CoV-2 & FLU Antigen (Rapid) - Final Radiography Diagnostic Testing: Radiology Impression Chest X-Ray 06/06/22 06:15 IMPRESSION: 1. Persistent right upper lobe consolidation with loss of volume unchanged. 2. Slightly improved right basilar and right upper lobe infiltrates. 3. Otherwise no significant change. Electronically Signed: Enrique Mahmood MD at 9:05 EST , Physical Exam Narrative alert, oriented x3 and no apparent distress Constitutional Narrative: She is morbidly obese General Appearance: cooperative, well kempt and well developed Orientation / Consciousness: awake, oriented to person, oriented to place HEENT normocephalic, head/scalp atraumatic and moist oral mucous membranes Eyes PERRL, EOMs intact bilaterally and conjunctivae normal Neck supple, no JVD, thyroid normal and no carotid bruits General: trachea midline Resp normal respiratory effort, no retractions and no use of accessory muscles Resp Narrative: Breath sounds are diminished bilaterally Auscultation: Negative for rales, rhonchi or wheezes Cardio regular rate, regular rhythm, S1 normal heart sound, S2 normal heart sound, no murmurs, no rub and no gallops GI normal to inspection, nondistended, normoactive bowel sounds, soft to palpation, non-tender and non-distended GI Narrative: Patient is morbidly obese Extremity no clubbing, cyanosis or edema Skin no rashes or lesions noted General Skin Exam: no breakdown Neuro oriented x3, CN's II-XII intact bilaterally, moves all extremities, no focal mo tor deficits and no sensory deficits noted Sensorium / Orientation: awake and alert Speech: speech normal Psych affect normal Assessment & Plan Assessment/Plan (1) Metastatic cancer to lung: (2) Morbid obesity: (3) Pneumonia: PLAN: Plan 1. Right-sided Pseudomonas pneumonia secondary to postobstructive causes from lung cancer-patient is being seen by infectious diseases, she will remain on IV antibiotics at this time, I talked briefly with infectious diseases yesterday and they said it was not inappropriate to keep the patient on antibiotics so she was discharged from the hospital-I feel that this is better course of action. #2 chronic combined respiratory failure-patient is currently on nasal cannula O2 at 4 L/min #3 stage III non-small cell lung cancer-patient follows with oncology as an outpatient #4 paroxysmal A. fib-continue present medications, patient is in sinus rhythm #5 type 2 diabetes-patient's blood sugars are being monitored, she is receiving sliding scale insulin #6 morbid obesity-complicates care, management, course, and recovery #7 obstructive sleep apnea-patient uses BiPAP at night #8 acute debility secondary to multiple medical problems-patient's daughter who is her POA does not want the patient at this time to go to an extended care facility, continue PT and OT Charges/Coding Visit Charges Inpatient E&M: 54712 Subs Hosp L2
[2022-06-06 17:15] LABS: Bedside Glucose 348 mg/dL (74-106)
[2022-06-06] MEDS: Pramipexole Di-HCl 0.5 MG Tablet PO (20:50)
[2022-06-06] MEDS: Atorvastatin Calcium 40 MG Tablet PO (21:02)
[2022-06-06 22:41] LABS: Bedside Glucose 336 mg/dL (74-106)
[2022-06-07] VITALS (16 sets, daily range): BP systolic 135–158; BP diastolic 46–69; PULSE 58–71; RESP 14–25; TEMP 36.1–36.9; O2SAT 95–99
[2022-06-07] MEDS: Insulin Lispro 100 UNIT/ML INSULN.PEN SC ×2 (06:11→11:22)
[2022-06-07] MEDS: Menthol/Lanolin/Calamine/Znox 113 GM Tube 1 APPLIC TOPICAL ×3 (06:11→19:52)
[2022-06-07 07:05] LABS: Bedside Glucose 212 mg/dL (74-106)
[2022-06-07] MEDS: Ipratropium/Albuterol Sulfate 3 ML AMPUL.NEB INHALATION ×3 (07:18→19:27)
--- NOTE | 2022-06-07 08:15 | NURSING ---
emergency documentation per drawer in [employer].
[2022-06-07] MEDS: APIXABAN 5 MG TABLET PO ×2 (08:24→19:53)
[2022-06-07] MEDS: Paroxetine 20 MG Tablet 40 MG PO (08:24)
[2022-06-07] MEDS: Nadolol 40 MG Tablet PO (08:24)
[2022-06-07] MEDS: Amiodarone 200 MG Tablet 100 MG PO ×2 (08:24→18:34)
[2022-06-07] MEDS: guaiFENesin 1,200 MG Tablet 1200 MG PO ×2 (08:25→19:53)
[2022-06-07] MEDS: Nystatin Powder 15gm Bottle 1 APPLIC TOPICAL ×2 (08:25→19:53)
[2022-06-07] MEDS: predniSONE 20 MG Tablet 40 MG PO (08:25)
[2022-06-07 11:45] LABS: Bedside Glucose 253 mg/dL (74-106)
[2022-06-07] MEDS: Loperamide 2 MG Capsule PO (13:17)
[2022-06-07] MEDS: 0.9% Saline Lock 10 ML Syringe IV (13:22)
--- NOTE | 2022-06-07 17:26 | PCM.PN.HOSP ---
Subjective Subjective Patient was seen and examined today, again she has been encouraged to get up and ambulate with assistance. Patient is still on 4 L via nasal cannula, I will repeat the patient's CBC tomorrow. Objective Data Objective Data Vital Signs: Vital Signs Temp Pulse Resp BP Pulse Ox O2 Del Method O2 Flow Rate 97.0 F L 69 16 153/56 H 97 Nasal Cannula 4 06/07/22 17:23 06/07/22 17:23 06/07/22 17:23 06/07/22 17:23 06/07/22 17:23 06/07/22 17:23 06/07/22 17:23 FiO2 28 06/07/22 15:00 Oxygen Flow Rate (L/min) 4 Oxygen Delivery Method Nasal Cannula Weight: 132.5 kg Body Mass Index (BMI) 51.3 Intake & Output: Intake and Output for Last 24 Hours 06/05/22 06/06/22 06/07/22 23:59 23:59 23:59 Intake Total 610 / 610 600 / 600 1090 / 1090 Output Total 950 / 950 960 / 1360 1700 / 1700 Balance -340 / -340 -360 / -760 -610 / -610 Lab / Micro Data Result Diagrams: 06/05/22 13:05 06/06/22 05:39 Labs: Laboratory Results - last 24 hr 06/06/22 21:01: POC Glucose 336 H 06/07/22 06:10: POC Glucose 212 H 06/07/22 11:21: POC Glucose 253 H Micro: Microbiology 05/26/22 18:20 Sputum, Expectorated/Coughed Gram Stain - Final 05/26/22 18:20 Sputum, Expectorated/Coughed Respiratory Culture - Final Pseudomonas aeroginosa 05/23/22 10:10 Blood Culture (Wb) - Port Blood Culture - Final No growth in 5 days. 05/28/22 15:47 Stool Stool Lactoferrin - Final 05/28/22 15:47 Stool Enteric Bacteriology - Final 05/28/22 15:47 Stool C. difficile DNA Amplification - Final 05/28/22 15:47 Stool Stool Occult Blood (RODRIGO) - Final Occult Blood Positive 05/23/22 12:13 Blood Culture (Wb) - Port Blood Culture - Final No growth in 5 days. 05/23/22 12:25 Urine, Clean Catch Urine Culture - Final Mixed Gram Positive Organisms 05/23/22 15:30 Mucosa - Nasopharyngeal Respiratory Panel (PCR) - Final 05/23/22 12:25 Urine Catheter - Catheter Legionella Antigen - Final 05/23/22 12:25 Urine Catheter - Catheter Streptococcus pneumoniae Antigen (M - Final 05/23/22 10:48 Nasal Secretion SARS-CoV-2 & FLU Antigen (Rapid) - Final Physical Exam Narrative alert, oriented x3 and no apparent distress Constitutional Narrative: She is morbidly obese General Appearance: cooperative, well kempt and well developed Orientation / Consciousness: awake, oriented to person, oriented to place HEENT normocephalic, head/scalp atraumatic and moist oral mucous membranes Eyes PERRL, EOMs intact bilaterally and conjunctivae normal Neck supple, no JVD, thyroid normal and no carotid bruits General: trachea midline Resp normal respiratory effort, no retractions and no use of accessory muscles Resp Narrative: Breath sounds are diminished bilaterally Auscultation: Negative for rales, rhonchi or wheezes Cardio regular rate, regular rhythm, S1 normal heart sound, S2 normal heart sound, no murmurs, no rub and no gallops GI normal to inspection, nondistended, normoactive bowel sounds, soft to palpation, non-tender and non-distended GI Narrative: Patient is morbidly obese Extremity no clubbing, cyanosis or edema Skin no rashes or lesions noted General Skin Exam: no breakdown Neuro oriented x3, CN's II-XII intact bilaterally, moves all extremities, no focal motor deficits and no sensory deficits noted Sensorium / Orientation: awake and alert Speech: speech normal Psych affect normal Assessment & Plan Assessment/Plan (1) Morbid obesity: (2) Metastatic cancer to lung: (3) Pneumonia: PLAN: Plan 1. Right-sided Pseudomonas pneumonia secondary to postobstructive causes from lung cancer-patient is being seen by infectious diseases, she will remain on IV antibiotics at this time #2 chronic combined respiratory failure-patient is currently on nasal cannula O2 at 4 L/min #3 stage III non-small cell lung cancer-patient follows with oncology as an outpatient #4 paroxysmal A. fib-continue present medications, patient is in sinus rhythm #5 type 2 diabetes-patient's blood sugars are being monitored, she is receiving sliding scale insulin #6 morbid obesity-complicates care, management, course, and recovery #7 obstructive sleep apnea-patient uses BiPAP at night #8 acute debility secondary to multiple medical problems-patient's daughter who is her POA does not want the patient at this time to go to an extended care facility, continue PT and OT, daughter has expressed desire for the patient to go home at the time of discharge from the hospital here. Charges/Coding Visit Charges Inpatient E&M: 80904 Subs Hosp L2
[2022-06-07 17:50] LABS: Bedside Glucose 487 mg/dL (74-106)
[2022-06-07 18:14] LABS: Glucose 514 mg/dL (74-106)
[2022-06-07] MEDS: Insulin Glargine-YFGN 100 UNIT/ML Pen 25 UNIT SC (19:51)
[2022-06-07] MEDS: Insulin Lispro 100 UNIT/ML INSULN.PEN 18 UNIT SC (19:51)
[2022-06-07] MEDS: Pramipexole Di-HCl 0.5 MG Tablet PO (19:53)
[2022-06-07] MEDS: Atorvastatin Calcium 40 MG Tablet PO (19:53)
[2022-06-07 22:35] LABS: Bedside Glucose 465 mg/dL (74-106)
[2022-06-07] MEDS: Insulin Lispro 100 UNIT/ML INSULN.PEN 16 UNIT SC (22:45)
[2022-06-08] VITALS (15 sets, daily range): BP systolic 124–143; BP diastolic 59–68; PULSE 56–85; RESP 14–24; TEMP 36.6–36.9; O2SAT 96–100
[2022-06-08] MEDS: Insulin Lispro 100 UNIT/ML INSULN.PEN SC ×4 (06:07→20:10)
[2022-06-08] MEDS: Menthol/Lanolin/Calamine/Znox 113 GM Tube 1 APPLIC TOPICAL ×3 (06:07→20:13)
[2022-06-08 06:40] LABS: Bedside Glucose 216 mg/dL (74-106)
[2022-06-08] MEDS: Ipratropium/Albuterol Sulfate 3 ML AMPUL.NEB INHALATION ×4 (06:50→21:50)
[2022-06-08 08:37] LABS: Absolute Lymphocyte Count 0.57 X10^3/uL (0.83-4.51); Absolute Neutrophil Count 16.1 X10^3/uL (2.0-7.7); Basophil# 0.03 X10^3/uL; Basophil% 0.2 % (0-1); Eosinophil# 0.02 X10^3/uL; Eosinophils% 0.1 % (0-5); Hematocrit 29.1 % (37-47); Hemoglobin 8.7 g/dL (12.0-15.0); Lymphocyte # 0.57 X10^3/ul (0.83-4.51); Lymphocyte % 3.2 % (19-41); Mean Corp Hgb Conc 29.9 g/dL (32-36); Mean Corpuscular Hgb 25.9 pg (27.0-32.0); Mean Corpuscular Volume 86.6 fL (81-99); Mean Platelet Vol. 10.8 fl (6.2-12.0); Monocyte# 0.93 X10^3/uL; Monocyte% 5.2 % (0-10); NRBC Flagged by Analyzer 0 % (0-5); Neutrophil # 16.07 X10^3/uL (2.7-7.7); Neutrophil % 89.8 % (47-70); POSITIVE DIFFERENTIAL YES; Platelet Count 296 K/mm3 (150-450); RBC Distribution Width CV 19.3 % (11.6-14.6); RBC Distribution Width SD 60.1 fl (35.1-43.9); Red Blood Count 3.36 M/mm3 (4.2-5.4); White Blood Count 17.9 K/mm3 (4.4-11.0)
[2022-06-08 08:40] LABS: Differential Indicated SCAN CRITERIA MET
[2022-06-08] MEDS: guaiFENesin 1,200 MG Tablet 1200 MG PO ×2 (08:54→20:09)
[2022-06-08] MEDS: Amiodarone 200 MG Tablet 100 MG PO ×2 (08:55→17:00)
[2022-06-08] MEDS: APIXABAN 5 MG TABLET PO ×2 (08:56→20:09)
[2022-06-08] MEDS: Nadolol 40 MG Tablet PO (08:56)
[2022-06-08] MEDS: Paroxetine 20 MG Tablet 40 MG PO (08:56)
[2022-06-08] MEDS: Insulin Glargine-YFGN 100 UNIT/ML Pen 25 UNIT SC ×2 (09:00→20:10)
[2022-06-08] MEDS: predniSONE 10 MG Tablet 30 MG PO (09:00)
[2022-06-08] MEDS: Nystatin Powder 15gm Bottle 1 APPLIC TOPICAL ×2 (09:01→20:13)
[2022-06-08 11:10] LABS: Differential Comment SCANNED
[2022-06-08 12:10] LABS: Bedside Glucose 217 mg/dL (74-106)
--- NOTE | 2022-06-08 16:00 | PCM.PN.HOSP ---
Subjective Subjective Patient was seen and examined today, I talked with her family who are in the room at the time my examination. Patient's white blood cell count today was 17.9, hemoglobin was 8.7. Patient remains on nasal cannula oxygen-family states she is usually on 4 L/min at home Objective Data Objective Data Vital Signs: Vital Signs Temp Pulse Resp BP Pulse Ox O2 Del Method O2 Flow Rate 98.4 F 70 18 124/59 H 96 Nasal Cannula 4 06/08/22 14:43 06/08/22 15:17 06/08/22 14:43 06/08/22 14:43 06/08/22 14:43 06/08/22 14:45 06/08/22 14:45 FiO2 28 06/08/22 06:50 Oxygen Flow Rate (L/min) 4 Oxygen Delivery Method Nasal Cannula Weight: 130.4 kg Body Mass Index (BMI) 51.3 Intake & Output: Intake and Output for Last 24 Hours 06/06/22 06/07/22 06/08/22 23:59 23:59 23:59 Intake Total 600 / 600 1090 / 1090 789 / 789 Output Total 960 / 1360 1700 / 2200 1250 / 1250 Balance -360 / -760 -610 / -1110 -461 / -461 Lab / Micro Data Result Diagrams: 06/08/22 07:36 06/07/22 17:25 Labs: Laboratory Results - last 24 hr 06/07/22 17:19: POC Glucose 487 H* 06/07/22 17:25: Glucose 514 H* 06/07/22 22:09: POC Glucose 465 H* 06/08/22 06:05: POC Glucose 216 H 06/08/22 07:36: WBC 17.9 H, RBC 3.36 L, Hgb 8.7 L, Hct 29.1 L, MCV 86.6, MCH 25.9 L, MCHC 29.9 L, RDW Std Deviation 60.1 H, RDW Coeff of Aniceto 19.3 H, Plt Count 296, MPV 10.8, Immature Gran % (Auto) 1.500 H, Neut % (Auto) 89.8 H, Lymph % (Auto) 3.2 L, [place] % (Auto) 5.2, Eos % (Auto) 0.1, Baso % (Auto) 0.2, Absolute Neuts (auto) 16.1 H, Absolute Lymphs (auto) 0.57 L, Nucleated RBC % 0, Differential Comment SCANNED 06/08/22 11:14: POC Glucose 217 H Micro: Microbiology 05/26/22 18:20 Sputum, Expectorated/Coughed Gram Stain - Final 05/26/22 18:20 Sputum, Expectorated/Coughed Respiratory Culture - Final Pseudomonas aeroginosa 05/23/22 10:10 Blood Culture (Wb) - Port Blood Culture - Final No growth in 5 days. 05/28/22 15:47 Stool Stool Lactoferrin - Final 05/28/22 15:47 Stool Enteric Bacteriology - Final 05/28/22 15:47 Stool C. difficile DNA Amplification - Final 05/28/22 15:47 Stool Stool Occult Blood (RODRIGO) - Final Occult Blood Positive 05/23/22 12:13 Blood Culture (Wb) - Port Blood Culture - Final No growth in 5 days. 05/23/22 12:25 Urine, Clean Catch Urine Culture - Final Mixed Gram Positive Organisms 05/23/22 15:30 Mucosa - Nasopharyngeal Respiratory Panel (PCR) - Final 05/23/22 12:25 Urine Catheter - Catheter Legionella Antigen - Final 05/23/22 12:25 Urine Catheter - Catheter Streptococcus pneumoniae Antigen (M - Final 05/23/22 10:48 Nasal Secretion SARS-CoV-2 & FLU Antigen (Rapid) - Final Physical Exam Narrative alert, oriented x3 and no apparent distress Constitutional Narrative: She is morbidly obese General Appearance: cooperative, well kempt and well developed Orientation / Consciousness: awake, oriented to person, oriented to place HEENT normocephalic, head/scalp atraumatic and moist oral mucous membranes Eyes PERRL, EOMs intact bilaterally and conjunctivae normal Neck supple, no JVD, thyroid normal and no carotid bruits General: trachea midline Resp normal respiratory effort, no retractions and no use of accessory muscles Resp Narrative: Breath sounds are diminished bilaterally Auscultation: Negative for rales, rhonchi or wheezes Cardio regular rate, regular rhythm, S1 normal heart sound, S2 normal heart sound, no murmurs, no rub and no gallops GI normal to inspection, nondistended, normoactive bowel sounds, soft to palpation, non-tender and non-distended GI Narrative: Patient is morbidly obese Extremity no clubbing, cyanosis or edema Skin no rashes or lesions noted General Skin Exam: no breakdown Neuro oriented x3, CN's II-XII intact bilaterally, moves all extremities, no focal motor deficits and no sensory deficits noted Sensorium / Orientation: awake and alert Speech: speech normal Psych affect normal Assessment & Plan Assessment/Plan (1) Pneumonia: (2) Morbid obesity: (3) Metastatic cancer to lung: PLAN: Plan 1. Right-sided Pseudomonas pneumonia secondary to postobstructive causes from lung cancer-patient is being seen by infectious diseases, she will remain on IV antibiotics at this time #2 chronic combined respiratory failure-patient is currently on nasal cannula O2 at 4 L/min #3 stage III non-small cell lung cancer-patient follows with oncology as an outpatient #4 paroxysmal A. fib-continue present medications, patient is in sinus rhythm #5 type 2 diabetes-patient's blood sugars are being monitored, she is receiving sliding scale insulin #6 morbid obesity-complicates care, management, course, and recovery #7 obstructive sleep apnea-patient uses BiPAP at night #8 acute debility secondary to multiple medical problems-patient's daughter who is her POA does not want the patient at this time to go to an extended care facility, continue PT and OT, daughter has expressed desire for the patient to go home at the time of discharge from the hospital here. I went over this with the family again today and they confirmed that the patient will go home at the time of discharge from the hospital Total clinical time spent by myself addressing the patient's medical issues, reviewing the data, and collaborating with patient's care team: 35 minutes Charges/Coding Visit Charges Inpatient E&M: 47669 Subs Hosp L2
[2022-06-08 17:31] LABS: Bedside Glucose 376 mg/dL (74-106)
[2022-06-08] MEDS: Loperamide 2 MG Capsule PO (18:15)
[2022-06-08] MEDS: Atorvastatin Calcium 40 MG Tablet PO (20:09)
[2022-06-08] MEDS: Pramipexole Di-HCl 0.5 MG Tablet PO (20:09)
[2022-06-08 22:26] LABS: Bedside Glucose 407 mg/dL (74-106)
[2022-06-09] VITALS (19 sets, daily range): BP systolic 91–148; BP diastolic 45–63; PULSE 60–93; RESP 14–21; TEMP 36.3–36.7; O2SAT 92–100
[2022-06-09] MEDS: Menthol/Lanolin/Calamine/Znox 113 GM Tube 1 APPLIC TOPICAL ×3 (04:53→21:02)
[2022-06-09] MEDS: Ipratropium/Albuterol Sulfate 3 ML AMPUL.NEB INHALATION ×4 (06:46→20:14)
[2022-06-09 07:26] LABS: Bedside Glucose 144 mg/dL (74-106)
[2022-06-09] MEDS: guaiFENesin 1,200 MG Tablet 1200 MG PO ×2 (09:07→20:55)
[2022-06-09] MEDS: Amiodarone 200 MG Tablet 100 MG PO ×2 (09:07→17:53)
[2022-06-09] MEDS: APIXABAN 5 MG TABLET PO ×2 (09:07→20:54)
[2022-06-09] MEDS: Paroxetine 20 MG Tablet 40 MG PO (09:07)
[2022-06-09] MEDS: predniSONE 10 MG Tablet 30 MG PO (09:07)
[2022-06-09] MEDS: Nadolol 40 MG Tablet PO (09:08)
[2022-06-09] MEDS: Insulin Glargine-YFGN 100 UNIT/ML Pen 25 UNIT SC ×2 (09:09→21:07)
[2022-06-09] MEDS: Nystatin Powder 15gm Bottle 1 APPLIC TOPICAL ×2 (09:16→21:02)
--- NOTE | 2022-06-09 10:55 | RAD_ITS ---
HISTORY: pneumonia. TECHNIQUE: XR Chest 1 View. COMPARISON: 06/06/2022. FINDINGS: LINES/TUBES: Right chest wall port with catheter tip at the level of the superior vena cava and right axillary surgical clips again noted.. CARDIOMEDIASTINAL BORDERS: Unchanged with right-sided volume loss and mild right-sided mediastinal shift. LUNGS: Severe consolidation of the right upper lobe with air bronchograms again noted. Patchy opacities in the right greater than left lung bases unchanged. Persistent left upper lobe opacity. PLEURA: Trace right pleural effusion. RAD/Chest 1 View (Portable) IMPRESSION: No significant interval change. Electronically Signed: Merly Braun MD at 11:23 EST ,
[2022-06-09 11:52] LABS: Absolute Lymphocyte Count 0.53 X10^3/uL (0.83-4.51); Absolute Neutrophil Count 19.4 X10^3/uL (2.0-7.7); Basophil# 0.03 X10^3/uL; Basophil% 0.1 % (0-1); Eosinophil# 0.03 X10^3/uL; Eosinophils% 0.1 % (0-5); Hematocrit 29.3 % (37-47); Hemoglobin 8.8 g/dL (12.0-15.0); Lymphocyte # 0.53 X10^3/ul (0.83-4.51); Lymphocyte % 2.5 % (19-41); Mean Corpuscular Hgb 25.7 pg (27.0-32.0); Mean Corpuscular Volume 85.7 fL (81-99); Mean Platelet Vol. 10.6 fl (6.2-12.0); Monocyte# 0.89 X10^3/uL; Monocyte% 4.2 % (0-10); NRBC Flagged by Analyzer 0 % (0-5); Neutrophil # 19.37 X10^3/uL (2.7-7.7); Neutrophil % 91.7 % (47-70); POSITIVE DIFFERENTIAL YES; Platelet Count 359 K/mm3 (150-450); RBC Distribution Width CV 19.7 % (11.6-14.6); RBC Distribution Width SD 58.9 fl (35.1-43.9); Red Blood Count 3.42 M/mm3 (4.2-5.4); White Blood Count 21.1 K/mm3 (4.4-11.0)
[2022-06-09 11:53] LABS: Differential Indicated SCAN CRITERIA MET
--- NOTE | 2022-06-09 12:05 | CASEMGMT ---
Family notified RN THAIS that they would like patient to go to [facility]. SW sent a referral to [facility]. Await response. Jordana Marc BOAT LOADER VARSHA
[2022-06-09] MEDS: Insulin Lispro 100 UNIT/ML INSULN.PEN SC ×3 (12:11→21:07)
[2022-06-09 12:45] LABS: Bedside Glucose 211 mg/dL (74-106)
--- NOTE | 2022-06-09 12:52 | NURSING ---
Isaac- daughter in law called wanted to let therapy know that she will bathe herself in the shower. She will just help if she needs nightgown off or something. Wants staff to know that cannot physically help lift or help her he just gets her drinks and meals he walks with a walker.
--- NOTE | 2022-06-09 13:05 | CASEMGMT ---
[facility] said they can accept patient. They will submit for approval with patient's insurance. ROMI let them know that patient's insurance is waiving pre-certification. ROMI was informed they still have to send information. [facility] submitted information. Await response. Plan: d/c to [facility] pending the okay from insurance. Jordana Marc PLATEMAN VARSHA
--- NOTE | 2022-06-09 15:01 | CHAPLAIN ---
Type of Pastoral Visit ___ Initial Visit _x__ Follow-up Visit ___ On-call Visit ___ General Patient Visit ___ Spiritual Assessment ___ Family Conference ___ Bereavement ___ Rapid Response ___ Code Blue ___ Other (describe below) Pastoral Care Referral From ___ Patient _x__ Family ___ Nurse ___ Physician ___ Sales Representative Public Utilities ___ Fund Development Manager ___ Other (describe below) Sacrament/Intervention ___ Active listening ___ Anointing ___ Latter-Day ___ Bereavement ___ Communion ___ [place] exploration ___ ___ Life review ___ Prayer ___ Reconciliation ___ Sacrament of Sick _x__ Supportive presence ___ Wedding ___ Other (describe below) Pastoral Comments patient was just getting her bi-pap put back on and was going to rest; pt states that she is fine but that her daughter who lives out of state but is here now would like me to call her; phone call made to daughter Santa; Santa stated that she did not request the call but is thankful for the support given to her mother; Santa explains difficult two years for patient and that her mother is fighting her best; Santa reports that pt has sahara in God and is prepared for whenever it come;
--- NOTE | 2022-06-09 16:48 | CASEMGMT ---
ROMI called patient's daughter Santa and left her a voice mail letting her know patient was accepted at [facility] and will go tomorrow. Plan: d/c to [facility] tomorrow. Jordana MADDOX
[2022-06-09 18:36] LABS: Bedside Glucose 353 mg/dL (74-106)
--- NOTE | 2022-06-09 19:23 | PCM.PN.HOSP ---
Subjective Subjective Patient was seen and examined today, her oxygen setting is at 4 L, patient's white blood cell count today was 21.1, chest x-ray showed no significant interval change. Patient did poorly with physical therapy, daughter who is her POA is present and social science instructor talked with her today and the daughter requested the patient be placed in a detention facility for short-term rehab services. We will need to get a pre-CERT for the patient, I have elected to keep the patient on meropenem for now. Objective Data Objective Data Vital Signs: Vital Signs Temp Pulse Resp BP Pulse Ox O2 Del Method O2 Flow Rate 98.0 F 67 18 148/58 H 95 Nasal Cannula 4 06/09/22 16:00 06/09/22 16:00 06/09/22 16:00 06/09/22 16:00 06/09/22 16:00 06/09/22 16:00 06/09/22 16:00 FiO2 28 06/09/22 14:34 Oxygen Flow Rate (L/min) 4 Oxygen Delivery Method Nasal Cannula Weight: 130.4 kg Body Mass Index (BMI) 51.3 Intake & Output: Intake and Output for Last 24 Hours 06/07/22 06/08/22 06/09/22 23:59 23:59 23:59 Intake Total 1090 / 1090 1384 / 1384 1081 / 1081 Output Total 1700 / 2200 1250 / 1650 1225 / 1225 Balance -610 / -1110 134 / -266 -144 / -144 Lab / Micro Data Result Diagrams: 06/09/22 11:28 06/07/22 17:25 Labs: Laboratory Results - last 24 hr 06/08/22 20:08: POC Glucose 407 H 06/09/22 07:03: POC Glucose 144 H 06/09/22 11:28: WBC 21.1 H, RBC 3.42 L, Hgb 8.8 L, Hct 29.3 L, MCV 85.7, MCH 25.7 L, MCHC 30.0 L, RDW Std Deviation 58.9 H, RDW Coeff of Aniceto 19.7 H, Plt Count 359, MPV 10.6, Immature Gran % (Auto) 1.400 H, Neut % (Auto) 91.7 H, Lymph % (Auto) 2.5 L, [place] % (Auto) 4.2, Eos % (Auto) 0.1, Baso % (Auto) 0.1, Absolute Neuts (auto) 19.4 H, Absolute Lymphs (auto) 0.53 L, Nucleated RBC % 0 06/09/22 12:08: POC Glucose 211 H 06/09/22 17:49: POC Glucose 353 H Micro: Microbiology 05/26/22 18:20 Sputum, Expectorated/Coughed Gram Stain - Final 05/26/22 18:20 Sputum, Expectorated/Coughed Respiratory Culture - Final Pseudomonas aeroginosa 05/23/22 10:10 Blood Culture (Wb) - Port Blood Culture - Final No growth in 5 days. 05/28/22 15:47 Stool Stool Lactoferrin - Final 05/28/22 15:47 Stool Enteric Bacteriology - Final 05/28/22 15:47 Stool C. difficile DNA Amplification - Final 05/28/22 15:47 Stool Stool Occult Blood (RODRIGO) - Final Occult Blood Positive 05/23/22 12:13 Blood Culture (Wb) - Port Blood Culture - Final No growth in 5 days. 05/23/22 12:25 Urine, Clean Catch Urine Culture - Final Mixed Gram Positive Organisms 05/23/22 15:30 Mucosa - Nasopharyngeal Respiratory Panel (PCR) - Final 05/23/22 12:25 Urine Catheter - Catheter Legionella Antigen - Final 05/23/22 12:25 Urine Catheter - Catheter Streptococcus pneumoniae Antigen (M - Final 05/23/22 10:48 Nasal Secretion SARS-CoV-2 & FLU Antigen (Rapid) - Final Radiography Diagnostic Testing: Radiology Impression Chest X-Ray 06/09/22 10:55 IMPRESSION: No significant interval change. Electronically Signed: Merly Braun MD at 11:23 EST , Physical Exam Narrative alert, oriented x3 and no apparent distress Constitutional Narrative: She is morbidly obese General Appearance: cooperative, well kempt and well developed Orientation / Consciousness: awake, oriented to person, oriented to place HEENT normocephalic, head/scalp atraumatic and moist oral mucous membranes Eyes PERRL, EOMs intact bilaterally and conjunctivae normal Neck supple, no JVD, thyroid normal and no carotid bruits General: trachea midline Resp normal respiratory effort, no retractions and no use of accessory muscles Resp Narrative: Breath sounds are diminished bilaterally Auscultation: Negative for rales, rhonchi or wheezes Cardio regular rate, regular rhythm, S1 normal heart sound, S2 normal heart sound, no murmurs, no rub and no gallops GI normal to inspection, nondistended, normoactive bowel sounds, soft to palpation, non-tender and non-distended GI Narrative: Patient is morbidly obese Extremity no clubbing, cyanosis or edema Skin no rashes or lesions noted General Skin Exam: no breakdown Neuro oriented x3, CN's II-XII intact bilaterally, moves all extremities, no focal motor deficits and no sensory deficits noted Sensorium / Orientation: awake and alert Speech: speech normal Psych affect normal Assessment & Plan Assessment/Plan (1) Morbid obesity: (2) Pneumonia: (3) Metastatic cancer to lung: PLAN: Plan 1. Right-sided Pseudomonas pneumonia secondary to postobstructive causes from lung cancer-patient is being seen by infectious diseases, she will remain on IV antibiotics at this time #2 chronic combined respiratory failure-patient is currently on nasal cannula O2 at 4 L/min #3 stage III non-small cell lung cancer-patient follows with oncology as an outpatient #4 paroxysmal A. fib-continue present medications, patient is in sinus rhythm #5 type 2 diabetes-patient's blood sugars are being monitored, she is receiving sliding scale insulin #6 morbid obesity-complicates care, management, course, and recovery #7 obstructive sleep apnea-patient uses BiPAP at night #8 acute debility secondary to multiple medical problems-patient's family wants her to go to an extended care facility at this time, we will proceed with placement in a detention facility. Total clinical time spent by myself addressing the patient's medical issues, reviewing the data, and collaborating with patient's care team: 35 minutes Charges/Coding Visit Charges Inpatient E&M: 51449 Subs Hosp L2
[2022-06-09] MEDS: Pramipexole Di-HCl 0.5 MG Tablet PO (20:54)
[2022-06-09] MEDS: Atorvastatin Calcium 40 MG Tablet PO (20:55)
[2022-06-09] MEDS: 0.9% Saline Lock 10 ML Syringe IV (21:16)
[2022-06-09 23:51] LABS: Bedside Glucose 391 mg/dL (74-106)
[2022-06-10] VITALS (12 sets, daily range): BP systolic 116–127; BP diastolic 47–57; PULSE 57–70; RESP 12–26; TEMP 36.3–36.8; O2SAT 98–100
[2022-06-10] MEDS: Ipratropium/Albuterol Sulfate 3 ML AMPUL.NEB INHALATION ×3 (07:12→15:17)
[2022-06-10 07:16] LABS: Bedside Glucose 129 mg/dL (74-106)
[2022-06-10] MEDS: predniSONE 10 MG Tablet 30 MG PO (09:55)
[2022-06-10] MEDS: Nadolol 40 MG Tablet PO (09:55)
[2022-06-10] MEDS: Paroxetine 20 MG Tablet 40 MG PO (09:55)
[2022-06-10] MEDS: Insulin Glargine-YFGN 100 UNIT/ML Pen 25 UNIT SC (09:55)
[2022-06-10] MEDS: Amiodarone 200 MG Tablet 100 MG PO ×2 (09:55→17:04)
[2022-06-10] MEDS: APIXABAN 5 MG TABLET PO (09:56)
[2022-06-10] MEDS: Nystatin Powder 15gm Bottle 1 APPLIC TOPICAL (09:56)
[2022-06-10] MEDS: Acetaminophen 325 MG Tablet 650 MG PO (09:56)
[2022-06-10] MEDS: guaiFENesin 1,200 MG Tablet 1200 MG PO (09:56)
--- NOTE | 2022-06-10 11:28 | CASEMGMT ---
ROMI spoke with Kenny at [facility] and he received the okay to take patient today. Patient is on bipap here at [facility], but is on AVAPS setting which nursing homes cannot do. ROMI will speak with physician. Jordana MADDOX
[2022-06-10 11:55] LABS: Bedside Glucose 133 mg/dL (74-106)
[2022-06-10] MEDS: Menthol/Lanolin/Calamine/Znox 113 GM Tube 1 APPLIC TOPICAL (13:19)
--- NOTE | 2022-06-10 14:10 | CASEMGMT ---
SW sent bipap settings and DNR to [facility] via [facility] per their request. Jordana Marc DIRECTOR OF OUTSIDE SALES VARSHA
--- NOTE | 2022-06-10 15:23 | PCM.TXEXTCAR ---
Diet Diet Order/Speech Therapy: 05/24/22 17:06 Diet: Consistent Carb - Calorie Controlled Food consistency:: Regular Liquid Consistency:: Regular/Thin Dietary Modifications:: Gluten Free Type of Dietary Supplement:: Glucerna Diet Comments: small bite sized, extra sauce/gravy, 240ml Van. Glucerna w/lunch How many daily calories?: 1600 calorie Routine Orders/Code Status O2 Liters per Minute: 4 O2 Frequency: bipap at 16/10 with 4 liters when sleeping Routine Lab Work: CBC (on 06/12/22) Code Status: DNRCC-A (with intubation) Therapies Weight Bearing: Full weight bearing Physical Therapy: Eval and Treat Occupational Therapy: Eval and Treat Problem/Diagnosis (1) Pneumonia: Status: Acute Code(s): J18.9 - Pneumonia, unspecified organism (2) Morbid obesity: Status: Acute Code(s): E66.01 - Morbid (severe) obesity due to excess calories (3) Metastatic cancer to lung: Status: Acute Code(s): C78.00 - Secondary malignant neoplasm of unspecified lung Plan 1. Right-sided Pseudomonas pneumonia secondary to postobstructive causes from lung cancer-patient is being seen by infectious diseases, she will remain on IV antibiotics at this time #2 chronic combined respiratory failure-patient is currently on nasal cannula O2 at 4 L/min #3 stage III non-small cell lung cancer-patient follows with oncology as an outpatient #4 paroxysmal A. fib-continue present medications, patient is in sinus rhythm #5 type 2 diabetes-patient's blood sugars are being monitored, she is receiving sliding scale insulin #6 morbid obesity-complicates care, management, course, and recovery #7 obstructive sleep apnea-patient uses BiPAP at night #8 acute debility secondary to multiple medical problems-patient's daughter who is her POA does not want the patient at this time to go to an extended care facility, continue PT and OT, daughter has expressed desire for the patient to go home at the time of discharge from the hospital here. I went over this with the family again today and they confirmed that the patient will go home at the time of discharge from the hospital Total clinical time spent by myself addressing the patient's medical issues, reviewing the data, and collaborating with patient's care team: 35 minutes Allergies/Procedures Done in Hospital Allergies adhesive tape Allergy (Verified 03/23/22 07:49) tears skin listed on pcp allergy list cefadroxil [From Duricef] Allergy (Verified 03/23/22 07:49) Unknown gluten Allergy (Verified 03/23/22 07:49) celiac disease Celiac disease mesalamine [From Asacol] Allergy (Verified 03/23/22 07:49) Unknown listed on pcp allergy list omalizumab [From Xolair] Allergy (Verified 03/23/22 07:49) Unknown listed on pcp allergy list Sulfa (Sulfonamide Antibiotics) Allergy (Verified 03/23/22 07:49) swelling as an oxycodone Adverse Reaction (Verified 03/23/22 07:49) Vomiting Procedures: None Type of Care/Length of Stay Estimated LOS: Convalescent Care Less Than 30 days Type of Care Needed: Skilled Rehab Potential: Good Prognosis: Good Additional Orders/Day of Discharge Additional Orders: chest x-ray on 06/12/22: reason-pneumonia H&P will serve as current which was dated: 05/23/22 Day of Discharge: 06/10/22 Dietary and Speech Recommendations Dietitian Recommendations/Changes: Continue 1600 calorie-controlled/carb-controlled, gluten free diet as ordered. Cut food bite size w/ extra sauce/gravy for ease of eating. Glucerna 240mL w/ lunch. Discharge Plan Admission Admit Date/Time: 05/23/22 13:46 Primary Reason for Your Visit: pneumonia secondary to pseudomonas Attending Provider: Mat Miramontes Primary Care Provider: Senait Jay Consulting Providers: Best Serna ; Junior Ovalles ; Leo Reynolds ; Olaf Mackay ; Sneha Glaser PHOTO MASK INSPECTOR ; Lorenzo Gold ; Dre Plascencia ; Karo Bailey ; Benny Brewster Discharge Orders/Prescriptions Prescriptions: New acetaminophen [Tylenol] 325 mg Tablet 650 mg PO Q6H PRN PRN (Reason: Pain 1-10 Or Fever >100.7) Qty: 0 0RF prednisone 10 mg Tablet 30 mg PO BREAKFAST Qty: 0 0RF Rx Instructions: 30 mg daily for 3 days, then 20 mg daily for 3 days, then 10 mg daily for 3 days, then stop ipratropium-albuterol 0.5 mg-3 mg(2.5 mg base)/3 mL Solution For Nebulization 3 ml inhalation Q4HWA.RT Qty: 0 0RF albuterol sulfate 2.5 mg /3 mL (0.083 %) Solution For Nebulization 2.5 mg inhalation Q2H PRN PRN (Reason: SOB &/OR WHEEZING) Qty: 0 0RF insulin lispro [Humalog KwikPen Insulin] 100 unit/mL Insulin Pen See Protocol subcut ACHS Qty: 0 0RF Protocol: 5. Sliding Scale Insulin High Dosing Condition: 150-209 mg/dl = 3 units Condition: 210-259 mg/dl = 6 units Condition: 260-324 mg/dl = 9 units Condition: 325-374 mg/dl = 12 units Condition: 375-409 mg/dl = 14 units Condition: 410-449 mg/dl = 16 units Condition: Greater than 449 call physician Protocol Text: - Use for Total Daily Dose of Insulin 81-120 units - Very insulin resistant or septic patients HIGH DOSING ALGORITHM menthol-zinc oxide [Calmoseptine] 0.44-20.6 % Ointment 1 applic topical TID Qty: 0 0RF Protocol: *Topical Application Instructions APPLICATION INSTRUCTIONS: to coccyx insulin glargine-yfgn 100 unit/mL (3 mL) Insulin Pen 25 unit subcut BID Qty: 0 0RF Deep Sea Nasal 0.65 % Aerosol,[place] 2 spray NASAL Q4H PRN PRN (Reason: NASAL DRYNESS) Qty: 0 0RF Continued cholecalciferol (vitamin D3) 50,000 UNIT capsule 50,000 unit PO SUWE@0800 paroxetine HCl [Paxil] 40 mg Tablet 40 mg PO DAILY nadolol 40 mg tablet 40 mg PO DAILY Label Comments: take 1 tablet by mouth once daily fluticasone furoate-vilanterol [Breo Ellipta] 200-25 mcg/dose blister with device 2 inh INHALATION DAILY Label Comments: inhale 1 puff by mouth INTO THE LUNGS once daily (USE GOOD ORAL CARE AFTER USE) nystatin [Nyamyc] 100,000 unit/gram Powder 1 applic topical BID Qty: 0 0RF Protocol: *Topical Application Instructions APPLICATION INSTRUCTIONS: groin, abdominal folds, under R breast Mucus Relief ER 1,200 mg tablet extended release 12hr 600 mg PO BID pramipexole [Mirapex] 0.5 mg Tablet 0.5 mg PO QPM Rx Instructions: administer 2 - 3 hours before bedtime rosuvastatin 20 mg tablet 20 mg PO DAILY Eliquis 5 mg tablet 5 mg PO BID Rx Instructions: told to stop taking eliqus for 3 days to have a tooth pulled today 05/23/22 furosemide 40 mg tablet 40 mg PO DAILY amiodarone [Pacerone] 100 mg tablet 100 mg PO BID Discontinued albuterol sulfate [ProAir HFA] 1 PUFF inhaler 2 puff inhalation Q6H PRN PRN (Reason: Dyspnea/Wheezing/Sob) Humulin R U-500 (Conc) Kwikpen 500 unit/mL (3 mL) insulin pen 65 unit SUBCUT DAILY Label Comments: INJECT 95 UNITS SUBCUTANEOUSLY DAILY BEFORE BREAKFAST AND 85 UNIT... (REFER TO PRESCRIPTION NOTES). potassium chloride 10 mEq tablet extended release 10 meq PO DAILY prednisone 10 mg tablet 10 mg PO DAILY Label Comments: take 2 tablets by mouth once daily ipratropium bromide 0.02 % solution 2.5 ml inhalation Q8H PRN (Reason: shortness of breath or wheezing) Qty: 75 0RF Referrals / Follow Up: Senait Jay MD [Primary Care Provider] - Disposition Disposition (needs filled in before D/C Order can be placed): Home Health Service
--- NOTE | 2022-06-10 15:26 | NURSING ---
Called report to Jaxon SAN at [email or web address]
--- NOTE | 2022-06-10 16:05 | DS.PCM_ITS ---
Providers Date of Admission: 05/23/22 Date of Discharge: 06/10/22 Primary Care Physician: Dr. Senait Jay MD Consultations 05/25/22 16:48 Consult: Infectious Disease Routine Consulting Provider: Dre Plascencia Reason for Consult: family requested- recurrent illness after chemo EMERGENT Consult: No Notified: Yes Date Notified: 05/25/22 Time Notified: 16:48 Method of Notification: Text 05/26/22 07:22 Consult: Compound Coating Machine Offbearer / Pulmonary Medicine Routine Consulting Provider: Pulmonary Medicine n[facility] [place] Reason for Consult: Complete opacification of RUL EMERGENT Consult: No Notified: Yes Date Notified: 05/26/22 Time Notified: 07:22 Method of Notification: Verbal 05/28/22 09:11 Consult: Nephrology Routine Consulting Provider: Karo Bailey Reason for Consult: [place] EMERGENT Consult: No Notified: Yes Date Notified: 05/28/22 Time Notified: 09:11 Method of Notification: Text 05/31/22 16:05 Consult: Compound Coating Machine Offbearer / Pulmonary Medicine Routine Consulting Provider: Pulmonary Medicine [facility] [place] Reason for Consult: RESPIRATORY FAILURE; FAMILY REQUEST EMERGENT Consult: No Notified: Yes Date Notified: 05/31/22 Time Notified: 16:05 Method of Notification: Text Reason For Visit: GEN WEAKNESS, RECURRENT FALL Diagnosis Discharge Diagnosis (1) Pneumonia: Status: Acute Code(s): J18.9 - Pneumonia, unspecified organism (2) Morbid obesity: Status: Acute Code(s): E66.01 - Morbid (severe) obesity due to excess calories (3) Metastatic cancer to lung: Status: Acute Code(s): C78.00 - Secondary malignant neoplasm of unspecified lung Plan 1. Right-sided Pseudomonas pneumonia secondary to postobstructive causes from lung cancer-patient is being seen by infectious diseases, she will remain on IV antibiotics at this time #2 chronic combined respiratory failure-patient is currently on nasal cannula O2 at 4 L/min #3 stage III non-small cell lung cancer-patient follows with oncology as an outpatient #4 paroxysmal A. fib-continue present medications, patient is in sinus rhythm #5 type 2 diabetes-patient's blood sugars are being monitored, she is receiving sliding scale insulin #6 morbid obesity-complicates care, management, course, and recovery #7 obstructive sleep apnea-patient uses BiPAP at night #8 acute debility secondary to multiple medical problems-patient's daughter who is her POA does not want the patient at this time to go to an extended care facility, continue PT and OT, daughter has expressed desire for the patient to go home at the time of discharge from the hospital here. I went over this with the family again today and they confirmed that the patient will go home at the time of discharge from the hospital Medications at Discharge Home Medications cholecalciferol (vitamin D3) 1,250 mcg (50,000 unit) capsule 50,000 unit PO SUWE@0800 SUPPLEMENT 06/01/17 fluticasone furoate 200 mcg-vilanterol 25 mcg/dose inhalation powder (Breo Ellipta) 2 inh inhalation DAILY sob 12/09/21 nadolol 40 mg tablet 40 mg PO DAILY heart 12/09/21 paroxetine HCl 40 mg tablet (Paxil) 40 mg PO DAILY mood 12/09/21 nystatin 100,000 unit/gram topical powder (Nyamyc) 1 applic topical BID #0 grams 12/30/21 guaifenesin 1,200 mg tablet, extended release 12 hr (Mucus Relief ER) 600 mg PO BID sputum 03/03/22 pramipexole 0.5 mg tablet (Mirapex) 0.5 mg PO QPM restless legs 03/03/22 rosuvastatin 20 mg tablet 20 mg PO DAILY a 03/03/22 apixaban 5 mg tablet (Eliquis) 5 mg PO BID Check with primary doctor 03/26/22 amiodarone 100 mg tablet (Pacerone) 100 mg PO BID heart 04/22/22 furosemide 40 mg tablet 40 mg PO DAILY water pill 04/22/22 acetaminophen 325 mg tablet (Tylenol) 650 mg PO Q6H PRN PRN Pain 1-10 Or Fever >100.7 #0 tabs 06/10/22 albuterol sulfate 2.5 mg/3 mL (0.083 %) solution for nebulization 2.5 mg (3 mL) inhalation Q2H PRN PRN SOB &/OR WHEEZING #0 mL 06/10/22 insulin glargine-yfgn 100 unit/mL (3 mL) subcutaneous pen 25 unit (0.25 mL) subcut BID #0 mL 06/10/22 insulin lispro 100 unit/mL subcutaneous pen (Humalog KwikPen (U-100) Insulin) See Protocol subcut ACHS #0 mL 06/10/22 ipratropium 0.5 mg-albuterol 3 mg (2.5 mg base)/3 mL nebulization soln 3 ml inhalation Q4HWA.RT #0 mL 06/10/22 menthol 0.44 %-zinc oxide 20.6 % topical ointment (Calmoseptine) 1 applic topical TID #0 grams 06/10/22 prednisone 10 mg tablet 30 mg PO BREAKFAST #0 tabs 06/10/22 sodium chloride 0.65 % nasal spray aerosol (Deep Sea Nasal) 2 spray NASAL Q4H PRN PRN NASAL DRYNESS #0 mL 06/10/22 Hospital Course Operations None Procedures None Summary of Care Provided Minutes Spent on Discharge: 32 Hospital Course: 76-year-old white female was seen in the emergency room at [facility] with chief complaint of generalized weakness, increased cough, and increased shortness of breath. Patient uses 4 L of oxygen during the day and BiPAP at night. On examination, patient's temperature was elevated at 101.1, CBC revealed a normal white blood cell count, hemoglobin was 9, chemistry pro file was remarkable for glucose of 263. Patient's chest x-ray showed no significant interval change from a previous chest x-ray. Chest CT was performed, it showed decreased size of masses or consolidation in the right upper lobe, superior segment of the right lower lobe, and left upper lobe. Ther e were new spiculated nodular opacity scattered in the right lung and new patchy opacities in the left lower upper lobe which may represent regions of pneumonia or metastases. Patient was admitted for multifocal multilobular pneumonia, she was seen in consultation by infectious diseases, sputum was positive for Pseudomonas, her antibiotics were changed from Zosyn to meropenem. Patient underwent a long period of hospitalization, she was seen by PT and OT and remained debilitated. It was recommended that the patient go to an extended care facility for inpatient rehab services, initially the patient's daughter disagreed with this but then relented and felt that her mother should go to a alf for short-term rehab. On 06/10/2022, patient was seen and examined:alert, oriented x3 and no apparent distress Constitutional Narrative: She is morbidly obese General Appearance: cooperative, well kempt and well developed Orientation / Consciousness: awake, oriented to person, oriented to place HEENT normocephalic, head/scalp atraumatic and moist oral mucous membranes Eyes PERRL, EOMs intact bilaterally and conjunctivae normal Neck supple, no JVD, thyroid normal and no carotid bruits General: trachea midline Resp normal respiratory effort, no retractions and no use of accessory muscles Resp Narrative: Breath sounds are diminished bilaterally Auscultation: Negative for rales, rhonchi or wheezes Cardio regular rate, regular rhythm, S1 normal heart sound, S2 normal heart sound, no murmurs, no rub and no gallops GI normal to inspection, nondistended, normoactive bowel sounds, soft to palpation, non-tender and non-distended GI Narrative: Patient is morbidly obese Extremity no clubbing, cyanosis or edema Skin no rashes or lesions noted General Skin Exam: no breakdown Neuro oriented x3, CN's II-XII intact bilaterally, moves all extremities, no focal motor deficits and no sensory deficits noted Sensorium / Orientation: awake and alert Speech: speech normal Psych affect normal On 06/10/2022, patient was seen and examined and felt be stable condition for transfer to local [facility] for inpatient rehab services. Weight / BMI Weight Weight: 132.2 kg Body Mass Index (BMI) 51.3 ABG / Lab / Microbiology Data Result Diagrams: 06/09/22 11:28 06/07/22 17:25 Laboratory: Laboratory Results - last 24 hr 06/09/22 17:49: POC Glucose 353 H 06/09/22 20:59: POC Glucose 391 H 06/10/22 06:49: POC Glucose 129 H 06/10/22 11:31: POC Glucose 133 H Microbiology: Microbiology 06/10/22 12:44 Nasal Secretion SARS-CoV-2 Antigen (Rapid) - Final 05/26/22 18:20 Sputum, Expectorated/Coughed Gram Stain - Final 05/26/22 18:20 Sputum, Expectorated/Coughed Respiratory Culture - Final Pseudomonas aeroginosa 05/23/22 10:10 Blood Culture (Wb) - Port Blood Culture - Final No growth in 5 days. 05/28/22 15:47 Stool Stool Lactoferrin - Final 05/28/22 15:47 Stool Enteric Bacteriology - Final 05/28/22 15:47 Stool C. difficile DNA Amplification - Final 05/28/22 15:47 Stool Stool Occult Blood (RODRIGO) - Final Occult Blood Positive 05/23/22 12:13 Blood Culture (Wb) - Port Blood Culture - Final No growth in 5 days. 05/23/22 12:25 Urine, Clean Catch Urine Culture - Final Mixed Gram Positive Organisms 05/23/22 15:30 Mucosa - Nasopharyngeal Respiratory Panel (PCR) - Final 05/23/22 12:25 Urine Catheter - Catheter Legionella Antigen - Final 05/23/22 12:25 Urine Catheter - Catheter Streptococcus pneumoniae Antigen (M - Final 05/23/22 10:48 Nasal Secretion SARS-CoV-2 & FLU Antigen (Rapid) - Final Meaningful Use Info Meaningful Use Diagnoses (Choose all that apply): None applicable Discharge Plan Admission Admit Date/Time: 05/23/22 13:46 Primary Reason for Your Visit: pneumonia secondary to pseudomonas Attending Provider: Mat Miramontes Primary Care Provider: Senait Jay Consulting Providers: Best Serna ; Junior Ovalles ; Leo Reynolds ; Olaf Mackay ; Sneha Glaser NP ; Lorenzo Gold ; Dre Plascencia ; Karo Bailey ; Benny Brewster Discharge Orders/Prescriptions Prescriptions: New acetaminophen [Tylenol] 325 mg Tablet 650 mg PO Q6H PRN PRN (Reason: Pain 1-10 Or Fever >100.7) Qty: 0 0RF prednisone 10 mg Tablet 30 mg PO BREAKFAST Qty: 0 0RF Rx Instructions: 30 mg daily for 3 days, then 20 mg daily for 3 days, then 10 mg daily for 3 days, then stop ipratropium-albuterol 0.5 mg-3 mg(2.5 mg base)/3 mL Solution For Nebulization 3 ml inhalation Q4HWA.RT Qty: 0 0RF albuterol sulfate 2.5 mg /3 mL (0.083 %) Solution For Nebulization 2.5 mg inhalation Q2H PRN PRN (Reason: SOB &/OR WHEEZING) Qty: 0 0RF insulin lispro [Humalog KwikPen Insulin] 100 unit/mL Insulin Pen See Protocol subcut ACHS Qty: 0 0RF Protocol: 5. Sliding Scale Insulin High Dosing Condition: 150-209 mg/dl = 3 units Condition: 210-259 mg/dl = 6 units Condition: 260-324 mg/dl = 9 units Condition: 325-374 mg/dl = 12 units Condition: 375-409 mg/dl = 14 units Condition: 410-449 mg/dl = 16 units Condition: Greater than 449 call physician Protocol Text: - Use for Total Daily Dose of Insulin 81-120 units - Very insulin resistant or septic patients HIGH DOSING ALGORITHM menthol-zinc oxide [Calmoseptine] 0.44-20.6 % Ointment 1 applic topical TID Qty: 0 0RF Protocol: *Topical Application Instructions APPLICATION INSTRUCTIONS: to coccyx insulin glargine-yfgn 100 unit/mL (3 mL) Insulin Pen 25 unit subcut BID Qty: 0 0RF Deep Sea Nasal 0.65 % Aerosol,[place] 2 spray NASAL Q4H PRN PRN (Reason: NASAL DRYNESS) Qty: 0 0RF Continued cholecalciferol (vitamin D3) 50,000 UNIT capsule 50,000 unit PO SUWE@0800 paroxetine HCl [Paxil] 40 mg Tablet 40 mg PO DAILY nadolol 40 mg tablet 40 mg PO DAILY Label Comments: take 1 tablet by mouth once daily fluticasone furoate-vilanterol [Breo Ellipta] 200-25 mcg/dose blister with device 2 inh INHALATION DAILY Label Comments: inhale 1 puff by mouth INTO THE LUNGS once daily (USE GOOD ORAL CARE AFTER USE) nystatin [Nyamyc] 100,000 unit/gram Powder 1 applic topical BID Qty: 0 0RF Protocol: *Topical Application Instructions APPLICATION INSTRUCTIONS: groin, abdominal folds, under R breast Mucus Relief ER 1,200 mg tablet extended release 12hr 600 mg PO BID pramipexole [Mirapex] 0.5 mg Tablet 0.5 mg PO QPM Rx Instructions: administer 2 - 3 hours before bedtime rosuvastatin 20 mg tablet 20 mg PO DAILY Eliquis 5 mg tablet 5 mg PO BID Rx Instructions: told to stop taking eliqus for 3 days to have a tooth pulled today 05/23/22 furosemide 40 mg tablet 40 mg PO DAILY amiodarone [Pacerone] 100 mg tablet 100 mg PO BID Discontinued albuterol sulfate [ProAir HFA] 1 PUFF inhaler 2 puff inhalation Q6H PRN PRN (Reason: Dyspnea/Wheezing/Sob) Humulin R U-500 (Conc) Kwikpen 500 unit/mL (3 mL) insulin pen 65 unit SUBCUT DAILY Label Comments: INJECT 95 UNITS SUBCUTANEOUSLY DAILY BEFORE BREAKFAST AND 85 UNIT... (REFER TO PRESCRIPTION NOTES). potassium chloride 10 mEq tablet extended release 10 meq PO DAILY prednisone 10 mg tablet 10 mg PO DAILY Label Comments: take 2 tablets by mouth once daily ipratropium bromide 0.02 % solution 2.5 ml inhalation Q8H PRN (Reason: shortness of breath or wheezing) Qty: 75 0RF Referrals / Follow Up: Senait Jay MD [Primary Care Provider] - Disposition Disposition (needs filled in before D/C Order can be placed): Home Health Service Charges/Coding Visit Charges Inpatient E&M: 37312 Disch Hosp >30min
--- NOTE | 2022-06-10 16:14 | CASEMGMT ---
SW received d/c orders. SW arranged for patient to get picked up at 5p via cot. SW notified patient's daughter Santa. SW also notified RN and senior it engineer. SW sent COVID test, orders, and garbage pick up worker time to [facility] via [facility]. Patient's daughter was in earlier and asked the senior it engineer to have someone call her when the ambulance is actually here. RN is aware. Plan: d/c to [facility] under skilled level of care on a 7000. Physicians will transport via bipap. Jordana Marc PUBLICITY CONSULTANT [employer]
[2022-06-10 17:00] LABS: Bedside Glucose 230 mg/dL (74-106)
[2022-06-10] MEDS: Insulin Lispro 100 UNIT/ML INSULN.PEN SC (17:02)
[2022-06-10] MEDS: 0.9% Saline Lock 10 ML Syringe IV (17:05)
== END 2022-06-10 17:40 | DRG 178 ==
LOC: ED 13:54 → MS3 14:49 → ICU 05-31 17:35 → PCU 06-05 18:50
PROVIDERS: Internal Medicine; Internal Medicine Critical Care Medicine; Internal Medicine Nephrology; Admitting Provider Internal Medicine; Emergency Provider Student in an Organized Health Care Education/Training Program; PCP Internal Medicine; Visit Provider Internal Medicine
DX: J15.1 Pneumonia due to Pseudomonas (principal); N17.9 Acute kidney failure, unspecified; J96.12 Chronic respiratory failure with hypercapnia; C79.51 Secondary malignant neoplasm of bone; C78.01 Secondary malignant neoplasm of right lung; C78.02 Secondary malignant neoplasm of left lung; K52.1 Toxic gastroenteritis and colitis; E66.2 Morbid (severe) obesity with alveolar hypoventilation; J96.11 Chronic respiratory failure with hypoxia; Z68.43 Body mass index [BMI] 50.0-59.9, adult; I48.0 Paroxysmal atrial fibrillation; E11.65 Type 2 diabetes mellitus with hyperglycemia; E11.22 Type 2 diabetes mellitus with diabetic chronic kidney disease; N18.32 Chronic kidney disease, stage 3b; E11.40 Type 2 diabetes mellitus with diabetic neuropathy, unspecified; Z79.4 Long term (current) use of insulin; E78.00 Pure hypercholesterolemia, unspecified; I12.9 Hypertensive chronic kidney disease with stage 1 through stage 4 chronic kidney disease, or unspecified chronic kidney disease; F41.9 Anxiety disorder, unspecified; R11.2 Nausea with vomiting, unspecified; F32.A Depression, unspecified; R63.8 Other symptoms and signs concerning food and fluid intake; R62.7 Adult failure to thrive; R53.1 Weakness; R53.81 Other malaise; R29.6 Repeated falls; T45.1X5A Adverse effect of antineoplastic and immunosuppressive drugs, initial encounter; Z66 Do not resuscitate; Z99.81 Dependence on supplemental oxygen; Z79.01 Long term (current) use of anticoagulants; Z79.899 Other long term (current) drug therapy; Z85.3 Personal history of malignant neoplasm of breast; Z87.891 Personal history of nicotine dependence
CPT/HCPCS: 36415; 36591; 36600; 70450; 71045; 71046; 71250; 72125; 76770; 80048; 80053; 80069; 80076; 80202; 81001; 82274; 82570; 82803; 82947; 82962; 83605; 83630; 83735; 83880; 84100; 84300; 84443; 84484; 85025; 85610; 85730; 87040; 87070; 87077; 87086; 87088; 87184; 87186; 87205; 87329; 87426; 87428; 87449; 87493; 87506; 87633; 87641; 93005; 94002; 94003; 94640; 94667; 94668; 94762; 97110; 97116; 97162; 97164; 97166; 97168; 97530; 97535; 99251; 99285; J2185; J2997; J7030; J7040; J7050; A4216; G0463; J1940; J2405

== ENCOUNTER → 2022-09-02 | Outpatient (REF) | payer MEDICARE, SELFPAY ==
[2022-09-02 07:33] LABS: Hematocrit 25.3 % (37-47); Hemoglobin 7.7 g/dL (12.0-15.0); Mean Corp Hgb Conc 30.4 g/dL (32-36); Mean Corpuscular Hgb 26.5 pg (27.0-32.0); Mean Corpuscular Volume 86.9 fL (81-99); Mean Platelet Vol. 9.9 fl (6.2-12.0); Platelet Count 185 K/mm3 (150-450); RBC Distribution Width CV 15.6 % (11.6-14.6); RBC Distribution Width SD 49.7 fl (35.1-43.9); Red Blood Count 2.91 M/mm3 (4.2-5.4); White Blood Count 5.4 K/mm3 (4.4-11.0)
[2022-09-02 08:01] LABS: ALB/GLOB Ratio 0.6 RATIO (0.9-2.4); AST(SGOT) 22 U/L (15-37); Alanine Aminotransfer ALT/SGPT 17 U/L (13-56); Albumin, Serum 2.4 g/dL (3.2-5.0); Alkaline Phosphatase 67 U/L (45-117); Anion Gap 4 (5-15); BUN 12 mg/dL (7-18); BUN/Creat Ratio 9.2 RATIO (10-20); Calcium,Total 8.8 mg/dL (8.5-10.1); Chloride 107 mmol/L (98-107); Cholesterol 116 mg/dL (200); EST Glomerular Filtration Rate 42 mL/min (>60); Est Glom Filt Rate - Afr Amer 51 mL/min (>60); Globulin 3.9 g/dL (2.2-4.2); Glucose 114 mg/dL (74-106); High Density Lipoprotein 30 mg/dL; Potassium 3.8 mmol/L (3.5-5.1); Protein, Total 6.3 g/dL (6.4-8.2); Sodium Level 139 mmol/L (136-145); Triglycerides 134 mg/dL; Very Low Density Lipoprotein 27 mg/dL (5-40)
[2022-09-02 09:06] LABS: Vitamin D,25 Hydroxy 80.6 ng/mL
[2022-09-02 11:03] LABS: Hemoglobin A1c < 3.8 % (3.8-5.6)
== END ==
PROVIDERS: PCP Internal Medicine; Visit Provider Family Medicine
DX: E55.9 Vitamin D deficiency, unspecified (principal); E11.9 Type 2 diabetes mellitus without complications; I10 Essential (primary) hypertension; E78.5 Hyperlipidemia, unspecified
CPT/HCPCS: 36415; 80053; 80061; 82306; 83036; 85027

== ENCOUNTER → 2022-09-16 | Outpatient (REF) | payer MEDICARE, SELFPAY ==
[2022-09-16 07:06] LABS: Hematocrit 28.5 % (37-47); Hemoglobin 8.8 g/dL (12.0-15.0); Mean Corp Hgb Conc 30.9 g/dL (32-36); Mean Corpuscular Volume 87.4 fL (81-99); Mean Platelet Vol. 9.2 fl (6.2-12.0); Platelet Count 223 K/mm3 (150-450); RBC Distribution Width CV 16.2 % (11.6-14.6); RBC Distribution Width SD 51.6 fl (35.1-43.9); Red Blood Count 3.26 M/mm3 (4.2-5.4); White Blood Count 5.3 K/mm3 (4.4-11.0)
== END ==
PROVIDERS: PCP Internal Medicine; Visit Provider Family Medicine
DX: D64.9 Anemia, unspecified (principal)
CPT/HCPCS: 36415; 85027

== ENCOUNTER → 2022-11-13 | Outpatient (REF) | payer MEDICARE, SELFPAY ==
[2022-11-13 10:39] LABS: Mucous, Urine 0 SEEN /hpf (<or=2+)
[2022-11-13 10:51] LABS: Color, Urine Yellow (Yellow); Glucose, Dipstick Normal (Normal); Ketone-Dipstick Negative (Negative); Leukocyte Esterase-Dipstick 500 /ul (Negative); Nitrite-Dipstick Positive (Negative); Occult Blood-Urine 10 /ul (Negative); Protein-Dipstick 15 mg/dl (Negative); Urine Bilirubin Dipstick Negative (Negative); Urine Clarity Sl. Cloudy (Clear); Urine Urobilinogen Normal (Normal)
[2022-11-13 11:06] LABS: Bacteria 3+ /hpf (None Seen); Red Blood Cells-Urine 0-5 SEEN /hpf (0-5); Squamous Epithelial Cells - UA 0-5 SEEN /hpf (5-10); White Blood Cells 25-50 SEEN /hpf (0-5)
== END ==
PROVIDERS: PCP Internal Medicine; Visit Provider Family Medicine Hospice and Palliative Medicine
DX: N39.0 Urinary tract infection, site not specified (principal)
CPT/HCPCS: 81001; 87077; 87086; 87088; 87186